=== PATIENT | male | born 1960 | race African-American/Black ===

== ENCOUNTER 2017-01-07 09:39 | Inpatient (IN) | payer MEDICARE, MEDICAID, OTHER ==
[~2017-01-07] VITALS: Ht 180.3 cm; Wt 69.7 kg
[~2017-01-07 09:39] MED LIST: LANTINJ SQ; LYRI75CA PO; NOVOLOGP2 SQ
[2017-01-07 09:42] VITALS: BP 159/74; PULSE 82; RESP 28; TEMP 97.9; O2SAT 100
[2017-01-07 11:00] VITALS: RESP 22
[2017-01-07] MEDS ORDERED: AMLO10TA2 PO (11:49)
[2017-01-07] MEDS ORDERED: METO25TA3 PO (11:49)
[2017-01-07] MEDS ORDERED: LISI-515 PO (11:49)
[2017-01-07] MEDS ORDERED: SEVEL800 PO (11:49)
--- NOTE | 2017-01-07 11:56 | PD ---
HPI Chief Complaint: Cold / Flu Symptoms Time Seen by Provider: 11:53 Travel History International Travel<30 days: No Contact w/Intl Traveler<30days: No Traveled to known affect area: No History of Present Illness HPI 56 year old male presents to the emergency department for evaluation of shortness of breath, wheezing, headache, fever, cough for 1 week. He reports that he had a fever last night as well as this morning. Although, he did not check his temperature. Patient has history of end-stage renal disease, hypertension, diabetes, hyperlipidemia. He gets dialysis on Sunday, , Sunday. He has a fistula to his left arm. He states he is unable to eat. He states that he feels like there is a course taking him in the head. He denies any chest pain. No abdominal pain. No nausea vomiting diarrhea. He states his blood glucose has been running higher than normal. PFSH Past Medical History Blood Disorders: No Heart Rhythm Problems: No Cancer: No Cardiovascular Problems: Yes High Cholesterol: No Chest Pain: No Congestive Heart Failure: No COPD: Yes (BRONCHITIS) Diabetes: Yes Dialysis: Yes (Sun) Diminished Hearing: No Endocrine: Yes Genitourinary: Yes (DIALYSIS) Headaches: Yes Hypertension: Yes Immune Disorder: No Implanted Vascular Access Dvce: Yes Kidney Stones: No Musculoskeletal: No Neurologic: No Psychiatric: No Reproductive: No Respiratory: Yes (BRONCHITIS A CHILD) Immunizations Current: Yes Renal Failure: Yes (LEVEL 5) Past Surgical History Other Surgery: Yes (LT ARM FISTULA) Social History Alcohol Use: No Tobacco Use: No Substance Use: No Allergies-Medications (Allergen,Severity, Reaction): Coded Allergies: No Known Allergies (Verified , 01/07/17) Reported Meds & Prescriptions Reported Meds & Active Scripts Active Lantus Solostar Pen Inj (Insulin Glargine) 300 Unit/3 Ml Pen 15-20 Units SQ BID 20units in AM/ 15units in evening Lyrica (Pregabalin) 75 Mg Cap 75 Mg PO DAILY Novolog Inj (Insulin Aspart) 1,000 Unit/10 Ml Vial 0 SQ DIRECTED Sliding Scale: 170-220: 2units. 221-270: 3units. 271-320: 4unis. 321-370: 5units Reported Metoprolol Tartrate 25 Mg Tab Unknown Dose PO DAILY Lisinopril 20 Mg Tab Unknown Dose PO DAILY Amlodipine (Amlodipine Besylate) 10 Mg Tab Unknown Dose PO DAILY Renvela (Sevelamer Carbonate) 800 Mg Tab Unknown Dose PO TID Review of Systems Except as stated in HPI: all other systems reviewed are Neg Physical Exam Narrative GENERAL: Well-developed well-nourished male patient, afebrile. SKIN: Warm and dry. Fistula noted to left upper arm HEAD: Normocephalic. Atraumatic. ENT: Mucosa pink and moist. No erythema or exudates. No uvular edema. No uvular , palatal, or tonsillar deviation. Airway patent. Nasal turbinates appear normal without nasal blood, purulent drainage or septal hematoma. Bilateral tympanic membranes are clear without erythema or perforation. EYES: No scleral icterus. No injection or drainage. NECK: Supple, trachea midline. No JVD or lymphadenopathy. CARDIOVASCULAR: Regular rate and rhythm without murmurs, gallops, or rubs. RESPIRATORY: Breath sounds equal bilaterally. No accessory muscle use. Lungs sounds were with expiratory wheezes noted throughout.. GASTROINTESTINAL: Abdomen soft, non-tender, nondistended. MUSCULOSKELETAL: No cyanosis, or edema. BACK: Nontender without obvious deformity. No CVA tenderness. Data Data Last Documented VS Vital Signs Date Time Temp Pulse Resp B/P Pulse Ox O2 Delivery O2 Flow Rate FiO2 01/07/17 13:16 98 Room Air 01/07/17 12:12 82 20 01/07/17 09:42 97.9 159/74 Orders Complete Blood Count With Diff (01/07/17 12:12) Comprehensive Metabolic Panel (01/07/17 12:12) B-Type Natriuretic Peptide (01/07/17 12:12) Urinalysis - C+S If Indicated (01/07/17 12:12) Influenzae A/B Antigen (01/07/17 12:12) Blood Culture (01/07/17 12:12) Iv Access Insert/Monitor (01/07/17 12:12) Electrocardiogram (01/07/17 12:12) Ecg Monitoring (01/07/17 12:12) Oximetry (01/07/17 12:12) Oxygen Administration (01/07/17 12:12) Chest, Single Ap (01/07/17 12:12) Sodium Chloride 0.9% Flush (Ns Flush) (01/07/17 12:15) Albuterol-Ipratropium Neb (Duoneb Neb) (01/07/17 12:15) Lactic Acid Sepsis Protocol (01/07/17 12:12) Admit Order (Ed Use Only) (01/07/17 14:45) Labs Laboratory Tests Test 01/07/17 01/07/17 12:33 13:20 White Blood Count 4.9 TH/MM3 Red Blood Count 3.69 MIL/MM3 Hemoglobin 10.6 GM/DL Hematocrit 33.1 % Mean Corpuscular Volume 89.6 FL Mean Corpuscular Hemoglobin 28.8 PG Mean Corpuscular Hemoglobin 32.1 % Concent Red Cell Distribution Width 15.4 % Platelet Count 149 TH/MM3 Mean Platelet Volume 10.4 FL Neutrophils (%) (Auto) % Lymphocytes (%) (Auto) % Monocytes (%) (Auto) % Eosinophils (%) (Auto) % Basophils (%) (Auto) % Neutrophils # (Auto) TH/MM3 Lymphocytes # (Auto) TH/MM3 Monocytes # (Auto) TH/MM3 Eosinophils # (Auto) TH/MM3 Basophils # (Auto) TH/MM3 CBC Comment AUTO DIFF Differential Total Cells 100 Counted Neutrophils % (Manual) 51 % Band Neutrophils % 6 % Lymphocytes % 26 % Monocytes % 11 % Eosinophils % 4 % Basophils % 2 % Neutrophils # (Manual) 2.8 TH/MM3 Differential Comment FINAL DIFF MANUAL Atypical Lymphocytes % Platelet Estimate NORMAL Platelet Morphology Comment NORMAL Ovalocytes 1+ Sodium Level 138 MEQ/L Potassium Level 4.6 MEQ/L Chloride Level 103 MEQ/L Carbon Dioxide Level 25.5 MEQ/L Anion Gap 10 MEQ/L Blood Urea Nitrogen 30 MG/DL Creatinine 8.60 MG/DL Estimat Glomerular Filtration 8 ML/MIN Rate Random Glucose 203 MG/DL Lactic Acid Level 2.3 mmol/L Calcium Level 9.1 MG/DL Total Bilirubin 0.9 MG/DL Aspartate Amino Transf 61 U/L (AST/SGOT) Alanine Aminotransferase 68 U/L (ALT/SGPT) Alkaline Phosphatase 118 U/L Total Protein 6.8 GM/DL Albumin 3.3 GM/DL B-Type Natriuretic Peptide 1332 PG/ML MDM Medical Decision Making Medical Screen Exam Complete: Yes Emergency Medical Condition: Yes Medical Record Reviewed: Yes Differential Diagnosis Pneumonia Versus bronchitis versus viral syndrome or electrolyte abnormality Narrative Course 56-year-old male with significant past medical history presents to the emergency department for fever, cough, headache for 1 week. The patient is initially seen contrast check. He'll be transferred to a medical bed for further evaluation disposition. Key Miller Jan 07, 2017 11:56
[2017-01-07] MEDS ORDERED: SODIUM CHLORIDE 0.9% FLUSH 10 ML FLUSH IVF PRN (12:15)
--- NOTE | 2017-01-07 12:17 | PD ---
Physical Exam Time Seen by Provider: 12:15 Narrative 56 year old male with history of hypertension, diabetes, hyperlipidemia and end- stage renal disease on dialysis on Sunday, and Saturdays here with complaints of shortness of breath, wheezing, headache, cough and fever for one week. Patient admits to having a fever last night but never actually checked his temperature. His significant other reports that she felt that he was very hot. He was having trouble breathing so she decided to give him a nebulizer treatment and her pro-air inhaler. He somewhat improved but continued to experience shortness of breath and coughing. They are currently residing in a homeless custodial in [place] and think that it may be contributing to his symptoms. She says a lot of people are coming in and out with a bunch of germs. He is a smoker and smokes a little bit less than half a pack a day. He denies any chest pain. Data Data Last Documented VS Vital Signs Date Time Temp Pulse Resp B/P Pulse Ox O2 Delivery O2 Flow Rate FiO2 01/07/17 13:16 98 Room Air 01/07/17 12:12 82 20 01/07/17 09:42 97.9 159/74 Orders Complete Blood Count With Diff (01/07/17 12:12) Comprehensive Metabolic Panel (01/07/17 12:12) B-Type Natriuretic Peptide (01/07/17 12:12) Urinalysis - C+S If Indicated (01/07/17 12:12) Influenzae A/B Antigen (01/07/17 12:12) Blood Culture (01/07/17 12:12) Iv Access Insert/Monitor (01/07/17 12:12) Electrocardiogram (01/07/17 12:12) Ecg Monitoring (01/07/17 12:12) Oximetry (01/07/17 12:12) Oxygen Administration (01/07/17 12:12) Chest, Single Ap (01/07/17 12:12) Sodium Chloride 0.9% Flush (Ns Flush) (01/07/17 12:15) Albuterol-Ipratropium Neb (Duoneb Neb) (01/07/17 12:15) Lactic Acid Sepsis Protocol (01/07/17 12:12) Admit Order (Ed Use Only) (01/07/17 14:45) Labs Laboratory Tests Test 01/07/17 01/07/17 12:33 13:20 White Blood Count 4.9 TH/MM3 Red Blood Count 3.69 MIL/MM3 Hemoglobin 10.6 GM/DL Hematocrit 33.1 % Mean Corpuscular Volume 89.6 FL Mean Corpuscular Hemoglobin 28.8 PG Mean Corpuscular Hemoglobin 32.1 % Concent Red Cell Distribution Width 15.4 % Platelet Count 149 TH/MM3 Mean Platelet Volume 10.4 FL Neutrophils (%) (Auto) % Lymphocytes (%) (Auto) % Monocytes (%) (Auto) % Eosinophils (%) (Auto) % Basophils (%) (Auto) % Neutrophils # (Auto) TH/MM3 Lymphocytes # (Auto) TH/MM3 Monocytes # (Auto) TH/MM3 Eosinophils # (Auto) TH/MM3 Basophils # (Auto) TH/MM3 CBC Comment AUTO DIFF Differential Total Cells 100 Counted Neutrophils % (Manual) 51 % Band Neutrophils % 6 % Lymphocytes % 26 % Monocytes % 11 % Eosinophils % 4 % Basophils % 2 % Neutrophils # (Manual) 2.8 TH/MM3 Differential Comment FINAL DIFF MANUAL Atypical Lymphocytes % Platelet Estimate NORMAL Platelet Morphology Comment NORMAL Ovalocytes 1+ Sodium Level 138 MEQ/L Potassium Level 4.6 MEQ/L Chloride Level 103 MEQ/L Carbon Dioxide Level 25.5 MEQ/L Anion Gap 10 MEQ/L Blood Urea Nitrogen 30 MG/DL Creatinine 8.60 MG/DL Estimat Glomerular Filtration 8 ML/MIN Rate Random Glucose 203 MG/DL Lactic Acid Level 2.3 mmol/L Calcium Level 9.1 MG/DL Total Bilirubin 0.9 MG/DL Aspartate Amino Transf 61 U/L (AST/SGOT) Alanine Aminotransferase 68 U/L (ALT/SGPT) Alkaline Phosphatase 118 U/L Total Protein 6.8 GM/DL Albumin 3.3 GM/DL B-Type Natriuretic Peptide 1332 PG/ML [facility] Medical Record Reviewed: Yes Supervised Visit with HA: No Narrative Course 56 year old male with history of hypertension, diabetes, hyperlipidemia and end- stage renal disease on dialysis on Sunday, and Saturdays here with complaints of shortness of breath, wheezing, headache, cough and fever for one week. Patient admits to having a fever last night but never actually checked his temperature. His significant other reports that she felt that he was very hot. He was having trouble breathing so she decided to give him a nebulizer treatment and her pro-air inhaler. He somewhat improved but continued to experience shortness of breath and coughing. They are currently residing in a homeless custodial in [place] and think that it may be contributing to his symptoms. She says a lot of people are coming in and out with a bunch of germs. He is a smoker and smokes a little bit less than half a pack a day. He denies any chest pain. Patient seen and examined. Case discussed with Dr. Hagen Labs and imaging ordered. EKG ordered. Findings are significant for BUN/creatinine 30/8.60, lactic acid 2.3, BNP is 1332. We will go ahead and admit for fluid overload. Case was discussed with the hospitalist. Patient was recommended for 23 hour observation. Patient verbalized understanding of instructions, questions were answered, and thanked me for their care. Admitting Information Admitting Physician Requests: Admit Condition: Stable Sandra Weir Jan 07, 2017 12:17
[2017-01-07] MEDS: RESP: ALBUTEROL 2.5 MG/IPRATROPIUM 0.5 MG NEB (SCH) INH ×2 (12:32→12:33)
[2017-01-07 12:54] LABS: HEMATOCRIT 33.1 % (39.0-51.0); MEAN CELL VOLUME 89.6 FL (80.0-100.0); MEAN CORPUSCULAR HEMOGLOBIN 28.8 PG (27.0-34.0); MEAN CORPUSCULAR HGB CONC 32.1 % (32.0-36.0); PLATELET COUNT 149 TH/MM3 (150-450); RED BLOOD COUNT 3.69 MIL/MM3 (4.50-5.90); RED CELL DISTRIBUTION WIDTH 15.4 % (11.6-17.2); WHITE BLOOD COUNT 4.9 TH/MM3 (4.0-11.0)
[2017-01-07 12:55] LABS: HEMO FLAGS AUTO DIFF
--- NOTE | 2017-01-07 12:57 | RADRPT ---
EXAM DATE/TIME: 01/07/2017 12:26 [facility] COMPARISON: CHEST SINGLE AP, February 19, 2015, 14:43. INDICATIONS : Shortness of breath for two weeks with increased severity overnight. MEDICAL HISTORY : None. SURGICAL HISTORY : None. ENCOUNTER: Initial ACUITY: 2 weeks PAIN SCORE: 0/10 LOCATION: Bilateral chest FINDINGS: The heart size appears mildly enlarged as compared to the prior exam. This may reflect the presence o f a pericardial effusion. The pulmonary vasculature is grossly normal in caliber. The lungs are well inflated and clear. There is graft material overlying the patient's left axilla. CONCLUSION: Interval enlargement of the cardiac silhouette which may be artifact due to the portable technique, h owever, this could also represent a small pericardial effusion. Darcy Almonte MD on January 07, 2017 at 12:54 Board Certified Radiologist. This report was verified electronically.
[2017-01-07 13:20] LABS: ALKALINE PHOSPHATASE 118 U/L (45-117); TOTAL BILIRUBIN ADULT 0.9 MG/DL (0.2-1.0)
[2017-01-07 13:24] LABS: ALT (GPT) 68 U/L (12-78); ANION GAP 10 MEQ/L (5-15); AST (GOT) 61 U/L (15-37); BICARBONATE 25.5 MEQ/L (21.0-32.0); BLOOD UREA NITROGEN 30 MG/DL (7-18); CHLORIDE 103 MEQ/L (98-107); GLOMERULAR FILTRATION RATE 8 ML/MIN (>89); POTASSIUM 4.6 MEQ/L (3.5-5.1); SODIUM (NA) 138 MEQ/L (136-145)
[2017-01-07 13:26] LABS: BANDS 6 % (0-6); BASOPHILS 2 % (0-2); EOSINOPHILS 4 % (0-4); NEUTROPHIL # MANUAL DIFF 2.8 TH/MM3 (1.8-7.7); POLYS (SEG NEUTROPHILS) 51 % (16-70); WBC DIFF SAMPLE 100
[2017-01-07 13:27] LABS: OVALOCYTES 1+ (NORMAL); PLATELET ESTIMATE SMEAR NORMAL (NORMAL); PLATELET MORPHOLOGY NORMAL (NORMAL); SCAN/DIFF FINAL DIFF MANUAL
[2017-01-07 14:41] LABS: LACTIC ACID GHOST NOT REPORTABLE
[2017-01-07 15:41] VITALS: BP 159/89; PULSE 89; RESP 20; O2SAT 100
[2017-01-07] MEDS ORDERED: ONDANSETRON HCL 4 MG/2 ML VIAL IVP PRN (16:15)
[2017-01-07] MEDS ORDERED: NALOXONE HCL 0.4 MG/ML AMP IV PRN (16:15)
[2017-01-07] MEDS ORDERED: SODIUM CHLORIDE 0.9% FLUSH 10 ML FLUSH IV FLUSH PRN (16:15)
[2017-01-07] MEDS ORDERED: ACETAMINOPHEN 325 MG TAB PO PRN (16:15)
[2017-01-07] MEDS ORDERED: DEXTROSE 50% IN WATER 50 ML VIAL(D50) IV PUSH PRN (16:30)
[2017-01-07] MEDS ORDERED: GLUCAGON 1 MG/ML VIAL OTHER PRN (16:30)
--- NOTE | 2017-01-07 16:48 | HHI.HP ---
HPI Service [facility] Primary Care Physician Thad Wheat M.D. Admission Diagnosis fluid overload/possible CHF Diagnoses: Chief Complaint: Constant cough Travel History International Travel<30 Days: No Contact w/Intl Traveler <30 Da: No Traveled to Known Affected Are: No History of Present Illness This is a 56-year-old male patient with past medical history was includes end- stage renal disease on hemodialysis Sunday and Sunday, diabetes mellitus type 1 and hypertension. Patient reports for the past one to 2 weeks he has had a nonproductive cough. Patient reports the cough is getting progressively worse. This point patient has associated shortness of breath and feels as though he can't take a deep breath. Patient reports subjective fevers last night as long with chills and headache. Patient reports the headache is dull and mild in nature. Patient reports he is currently living in a homeless care home and there are multiple other people who appear sick with cough. Patient tried his friends inhaler yesterday does not think it helped the cough. Patient denies nausea or vomiting diarrhea constipation or chest pain. Review of Systems Except as stated in HPI: all other systems reviewed are Neg Past Family Social History Past Medical History end-stage renal disease on hemodialysis Sunday and Sunday, diabetes mellitus type 1 and hypertension Past Surgical History L upper extremity fistula Reported Medications Lantus Solostar Pen Inj (Insulin Glargine) 300 Unit/3 Ml Pen 15-20 Units SQ BID 20units in AM/ 15units in evening Lyrica (Pregabalin) 75 Mg Cap 75 Mg PO DAILY Novolog Inj (Insulin Aspart) 1,000 Unit/10 Ml Vial 0 SQ DIRECTED Sliding Scale: 170-220: 2units. 221-270: 3units. 271-320: 4unis. 321-370: 5units Metoprolol Tartrate 25 Mg Tab Unknown Dose PO DAILY Amlodipine (Amlodipine Besylate) 10 Mg Tab Unknown Dose PO DAILY Renvela (Sevelamer Carbonate) 800 Mg Tab Unknown Dose PO TID Allergies: Coded Allergies: No Known Allergies (Verified , 01/07/17) Active Ordered Medications Current Medications Medications (Trade) Dose Ordered Sig/April Route Start Time Stop Time Status Last Admin (NS Flush) 2 ml UNSCH PRN IVF 01/07/17 12:15 (NS Flush) 2 ml UNSCH PRN IV FLUSH 01/07/17 16:15 UNV (NS Flush) 2 ml BID IV FLUSH 01/07/17 21:00 UNV (Tylenol) 650 mg Q4H PRN PO 01/07/17 16:15 UNV (Zofran Inj) 4 mg Q6H PRN IVP 01/07/17 16:15 UNV (Colace) 100 mg Q12H PO 01/07/17 16:15 UNV (Heparin Inj) 5,000 units Q12H SQ 01/07/17 16:15 UNV (Narcan Inj) 0.4 mg UNSCH PRN IV 01/07/17 16:15 UNV (SoluMEDROL INJ) 125 mg ONCE ONCE IV PUSH 01/07/17 16:15 01/07/17 16:16 UNV Methylprednisolone Sodium Succinate 60 mg 60 mg Q6H IV PUSH 01/07/17 16:15 UNV Cefepime HCl 1000 mg/Sodium Chloride 100 ml @ 200 mls/hr DAILY IV 01/07/17 16:15 UNV (Zithromax Inj/ NS 250 ml Inj) 250 ml @ 250 mls/hr Q24H IV 01/07/17 16:15 UNV (Lyrica) 75 mg DAILY PO 01/08/17 09:00 UNV (Lopressor) 25 mg Q12HR PO 01/07/17 21:00 UNV (Norvasc) 5 mg DAILY PO 01/08/17 09:00 UNV (Levemir Inj) 15 units HS SQ 01/07/17 21:00 UNV (Renvela) 800 mg TIDAC PO 01/07/17 17:00 UNV (D50w (Vial) Inj) 25 ml UNSCH PRN IV PUSH 01/07/17 16:30 UNV (Glucagon Inj) 1 mg UNSCH PRN OTHER 01/07/17 16:30 UNV Family History Mother secondary to ovarian cancer Father secondary to end-stage renal disease 2 brothers with diabetes mellitus Social History Patient currently residing at home with shoulder Drinks on rare occasions Smoked for the past 30+ years but reports he is cutting back and legs only a few cigarettes per day Denies illicit drug use quit marijuana greater than 20 years ago Physical Exam Vital Signs Vital Signs Date Time Temp Pulse Resp B/P Pulse Ox O2 Delivery O2 Flow Rate FiO2 01/07/17 15:41 89 20 159/89 100 Room Air 01/07/17 13:16 98 Room Air 01/07/17 12:12 82 20 99 Room Air 01/07/17 11:00 22 01/07/17 09:42 97.9 82 28 159/74 100 Room Air Physical Exam GENERAL: This is a 56-year-old male patient with frequent cough SKIN: No rashes, ecchymoses or lesions. Cool and dry. HEAD: Atraumatic. Normocephalic. No temporal or scalp tenderness. EYES: Extraocular motions intact. No scleral icterus. No injection or drainage. CARDIOVASCULAR: Regular rate and rhythm without murmurs, gallops, or rubs. RESPIRATORY: decreased air entry bilaterally scattered expiratory wheezing GASTROINTESTINAL: Abdomen soft, non-tender, nondistended. No guarding. MUSCULOSKELETAL: Extremities without clubbing, cyanosis, or edema. No joint tenderness, effusion, or edema noted. No calf tenderness. Negative Homans sign bilaterally. NEUROLOGICAL: Awake and alert. no focal deficits. Motor and sensory grossly within normal limits. Five out of 5 muscle strength in all muscle groups. Normal speech. Laboratory Laboratory Tests Test 01/07/17 01/07/17 01/07/17 12:33 13:20 15:31 White Blood Count 4.9 Red Blood Count 3.69 Hemoglobin 10.6 Hematocrit 33.1 Mean Corpuscular Volume 89.6 Mean Corpuscular Hemoglobin 28.8 Mean Corpuscular Hemoglobin 32.1 Concent Red Cell Distribution Width 15.4 Platelet Count 149 Mean Platelet Volume 10.4 Neutrophils (%) (Auto) Lymphocytes (%) (Auto) Monocytes (%) (Auto) Eosinophils (%) (Auto) Basophils (%) (Auto) Neutrophils # (Auto) Lymphocytes # (Auto) Monocytes # (Auto) Eosinophils # (Auto) Basophils # (Auto) CBC Comment AUTO DIFF Differential Total Cells 100 Counted Neutrophils % (Manual) 51 Band Neutrophils % 6 Lymphocytes % 26 Monocytes % 11 Eosinophils % 4 Basophils % 2 Neutrophils # (Manual) 2.8 Differential Comment FINAL DIFF MANUAL Atypical Lymphocytes Platelet Estimate NORMAL Platelet Morphology Comment NORMAL Ovalocytes 1+ Sodium Level 138 Potassium Level 4.6 Chloride Level 103 Carbon Dioxide Level 25.5 Anion Gap 10 Blood Urea Nitrogen 30 Creatinine 8.60 Estimat Glomerular Filtration 8 Rate Random Glucose 203 Lactic Acid Level 2.3 1.7 Calcium Level 9.1 Total Bilirubin 0.9 Aspartate Amino Transf 61 (AST/SGOT) Alanine Aminotransferase 68 (ALT/SGPT) Alkaline Phosphatase 118 Total Protein 6.8 Albumin 3.3 B-Type Natriuretic Peptide 1332 Date/Time Procedure Status Source Growth 01/07/17 13:30 Influenza Types A,B Antigen (DARIUS) - Final Complete Nasal Washing NEGATIVE FOR FLU A AND B ANTIGEN.... 01/07/17 12:30 Aerobic Blood Culture Received Blood Peripheral Pending 01/07/17 12:30 Anaerobic Blood Culture Received Blood Peripheral Pending Result Diagram: 01/07/17 1233 01/07/17 1233 Imaging Last Impressions Chest X-Ray 01/07/17 1212 Signed Impressions: Service Date/Time: Saturday, January 07, 2017 12:26 - CONCLUSION: Interval enlargement of the cardiac silhouette which may be artifact due to the portable technique, however, this could also represent a small pericardial effusion. Darcy Almonte MD Assessment and Plan Assessment and Plan This is a 56-year-old male patient with past medical history was includes end- stage renal disease on hemodialysis Sunday and Sunday, diabetes mellitus type 1 and hypertension. Patient reports for the past one to 2 weeks he has had a nonproductive cough. SOB COPD exacerbation cefepime 1 gram IV Q24H after HD azithromycin 500mg IV Q day Duonebs Q4H while awake and Q2H as needed Solumedrol 125mg IV x1 now and then solumedrol 60mg IV Q6H DM uncontrolled Continue Lantus 20 units every morning, 15 units every afternoon Accu-Cheks before meals at bedtime with sliding scale insulin coverage Start renal/diabetic diet Diabetic neuropathy continue Lyrica Hypertension continue home medications metoprolol 25 mg twice a day and amlodipine 5 mg daily End-stage renal disease on hemodialysis consult nephrology patient regularly has dialysis Sunday and Sunday Sevelamer 800 mg with meals DVT prophylaxis heparin Discussed with ER provider, nursing and patient Written by Sirena Mortensen, acting as scribe for Dr. Markham on 01/07/17 at 16:46. All or portions of this note were transcribed by scribe Sirena Mortensen. I , Dr. Alexandre Ruelas personally performed the history, physical exam, and medical decision making; and confirmed the accuracy of the information in the transcribed note. Authenticated by Dr. Alexandre Ruelas on 01/14/17 at 23:41. Physician Certification 2 Midnight Certification Type: Admission for Inpatient Services Order for Inpatient Services The services are ordered in accordance with Medicare regulations or non- Medicare payer requirements, as applicable. In the case of services not specified as inpatient-only, they are appropriately provided as inpatient services in accordance with the 2-midnight benchmark. Estimated LOS (days): 2 days is the estimated time the patient will need to remain in the hospital, assuming treatment plan goals are met and no additional complications. Post-Hospital Plan: Not yet determined Sirena Mortensen Jan 07, 2017 16:48 Alexandre Fleming MD Jan 14, 2017 23:42
--- NOTE | 2017-01-07 16:56 | PD ---
Physical Exam Date Seen by Provider: Jan 07, 2017 Time Seen by Provider: 14:50 Narrative I, Dr. Powers, have reviewed the advance practice practitioner's documentation and am in agreement, met with the patient face to face, made the diagnosis, and the medical decision making was done by me. *My assessment and Findings: Patient seen and evaluated with PA, please see PA no further details. He is here with 2 weeks history of coughing, dyspnea on exertion. He has history of end-stage renal disease on dialysis. On initial evaluation, he was wheezing on exam and nebulizers were initiated in the ER. EKG did not show significant dysrhythmias. Laboratory Tests Test 01/07/17 01/07/17 12:33 13:20 Red Blood Count 3.69 MIL/MM3 (4.50-5.90) Hemoglobin 10.6 GM/DL (13.0-17.0) Hematocrit 33.1 % (39.0-51.0) Platelet Count 149 TH/MM3 (150-450) Monocytes % 11 % (0-8) Ovalocytes 1+ (NORMAL) Blood Urea Nitrogen 30 MG/DL (7-18) Creatinine 8.60 MG/DL (0.60-1.30) Estimat Glomerular Filtration 8 ML/MIN (>89) Rate Random Glucose 203 MG/DL (74-106) Lactic Acid Level 2.3 mmol/L (0.4-2.0) Aspartate Amino Transf 61 U/L (15-37) (AST/SGOT) Alkaline Phosphatase 118 U/L (45-117) Albumin 3.3 GM/DL (3.4-5.0) B-Type Natriuretic Peptide 1332 PG/ML (0-100) Last 24 hours Impressions Chest X-Ray 01/07/17 1212 Signed Impressions: Service Date/Time: Saturday, January 07, 2017 12:26 - CONCLUSION: Interval enlargement of the cardiac silhouette which may be artifact due to the portable technique, however, this could also represent a small pericardial effusion. Darcy Almonte MD Chest x-ray did not show signs of acute processes although it is not a ideal study. His BNP is fairly elevated. At this point, there is concern for possible underlying fluid overload or CHF as well. Plan would be to admit the patient for further evaluation. Case is discussed with [place] hospitalist Dr. Markham for admission. Data Data Last Documented VS Vital Signs Date Time Temp Pulse Resp B/P Pulse Ox O2 Delivery O2 Flow Rate FiO2 01/07/17 13:16 98 Room Air 01/07/17 12:12 82 20 01/07/17 09:42 97.9 159/74 Orders Complete Blood Count With Diff (01/07/17 12:12) Comprehensive Metabolic Panel (01/07/17 12:12) B-Type Natriuretic Peptide (01/07/17 12:12) Urinalysis - C+S If Indicated (01/07/17 12:12) Influenzae A/B Antigen (01/07/17 12:12) Blood Culture (01/07/17 12:12) Iv Access Insert/Monitor (01/07/17 12:12) Electrocardiogram (01/07/17 12:12) Ecg Monitoring (01/07/17 12:12) Oximetry (01/07/17 12:12) Oxygen Administration (01/07/17 12:12) Chest, Single Ap (01/07/17 12:12) Sodium Chloride 0.9% Flush (Ns Flush) (01/07/17 12:15) Albuterol-Ipratropium Neb (Duoneb Neb) (01/07/17 12:15) Lactic Acid Sepsis Protocol (01/07/17 12:12) Admit Order (Ed Use Only) (01/07/17 14:45) Labs Laboratory Tests Test 01/07/17 01/07/17 12:33 13:20 White Blood Count 4.9 TH/MM3 Red Blood Count 3.69 MIL/MM3 Hemoglobin 10.6 GM/DL Hematocrit 33.1 % Mean Corpuscular Volume 89.6 FL Mean Corpuscular Hemoglobin 28.8 PG Mean Corpuscular Hemoglobin 32.1 % Concent Red Cell Distribution Width 15.4 % Platelet Count 149 TH/MM3 Mean Platelet Volume 10.4 FL Neutrophils (%) (Auto) % Lymphocytes (%) (Auto) % Monocytes (%) (Auto) % Eosinophils (%) (Auto) % Basophils (%) (Auto) % Neutrophils # (Auto) TH/MM3 Lymphocytes # (Auto) TH/MM3 Monocytes # (Auto) TH/MM3 Eosinophils # (Auto) TH/MM3 Basophils # (Auto) TH/MM3 CBC Comment AUTO DIFF Differential Total Cells 100 Counted Neutrophils % (Manual) 51 % Band Neutrophils % 6 % Lymphocytes % 26 % Monocytes % 11 % Eosinophils % 4 % Basophils % 2 % Neutrophils # (Manual) 2.8 TH/MM3 Differential Comment FINAL DIFF MANUAL Atypical Lymphocytes % Platelet Estimate NORMAL Platelet Morphology Comment NORMAL Ovalocytes 1+ Sodium Level 138 MEQ/L Potassium Level 4.6 MEQ/L Chloride Level 103 MEQ/L Carbon Dioxide Level 25.5 MEQ/L Anion Gap 10 MEQ/L Blood Urea Nitrogen 30 MG/DL Creatinine 8.60 MG/DL Estimat Glomerular Filtration 8 ML/MIN Rate Random Glucose 203 MG/DL Lactic Acid Level 2.3 mmol/L Calcium Level 9.1 MG/DL Total Bilirubin 0.9 MG/DL Aspartate Amino Transf 61 U/L (AST/SGOT) Alanine Aminotransferase 68 U/L (ALT/SGPT) Alkaline Phosphatase 118 U/L Total Protein 6.8 GM/DL Albumin 3.3 GM/DL B-Type Natriuretic Peptide 1332 PG/ML MDM Medical Record Reviewed: Yes Supervised Visit with HA: Yes Diagnosis Primary Impression: Shortness of breath Additional Impression: Fluid overload Admitting Information Admitting Physician Requests: Admit Condition: Stable Nadja Powers MD Jan 07, 2017 16:56
[2017-01-07] MEDS ORDERED: methylPREDNISolone SOD SUCC 125 MG/2 ML VIAL IV PUSH ONE (17:00)
[2017-01-07] MEDS: DOCUSATE SODIUM 100 MG CAP PO SCH (18:00)
[2017-01-07] MEDS: AZITHROMYCIN INJ 500 MG in SODIUM CHLOR 0.9% 250 ML INJ 250 ML IV SCH (18:40)
[2017-01-07] MEDS: HEPARIN SODIUM - SQ 10,000 UNITS/ML VIAL SQ SCH (18:42)
[2017-01-07] MEDS: RESP: ALBUTEROL 2.5 MG/IPRATROPIUM 0.5 MG NEB (SCH) NEB (19:51)
[2017-01-07 19:53] VITALS: O2SAT 97
[2017-01-07 20:51] VITALS: BP 155/75; PULSE 102; RESP 18; TEMP 98.4; O2SAT 97
[2017-01-07] MEDS ORDERED: INSULIN DETEMIR 100 UNITS/ML VIAL SQ SCH (21:00)
[2017-01-07] MEDS: CEFEPIME INJ 1,000 MG in SODIUM CHLORIDE 0.9% INJ 100 ML IV SCH (21:10)
[2017-01-07] MEDS: SEVELAMER CARBONATE 800 MG TAB PO SCH (21:10)
[2017-01-07] MEDS: INSULIN ASPART SUPPLEMENTAL SCALE SQ SCH (21:11)
[2017-01-07] MEDS: SODIUM CHLORIDE 0.9% FLUSH 10 ML FLUSH IV FLUSH SCH (21:11)
[2017-01-07] MEDS: METOPROLOL TARTRATE 25 MG TAB PO SCH (21:11)
[2017-01-07] MEDS: guaiFENesin/DEXTROMETHORPHAN 200 MG/20 MG/10 ML CUP PO PRN (23:08)
[2017-01-07] MEDS: methylPREDNISolone SOD SUCC 125 MG/2 ML VIAL IV PUSH SCH (23:12)
[2017-01-07 23:13] VITALS: BP 122/58; PULSE 82; RESP 18; TEMP 98.7; O2SAT 100; O2SAT 96
[2017-01-08] VITALS (8 sets, daily range): BP systolic 125–152; BP diastolic 60–79; PULSE 54–89; RESP 16–18; TEMP 96.8–98.7; O2SAT 94–99
[2017-01-08] MEDS: RESP: ALBUTEROL 2.5 MG/IPRATROPIUM 0.5 MG NEB (PRN) NEB (02:59)
[2017-01-08] MEDS: guaiFENesin/DEXTROMETHORPHAN 200 MG/20 MG/10 ML CUP PO PRN ×5 (03:24→23:00)
[2017-01-08] MEDS: INSULIN DETEMIR 100 UNITS/ML VIAL SQ SCH ×2 (06:03→21:15)
[2017-01-08] MEDS: DOCUSATE SODIUM 100 MG CAP PO SCH ×2 (06:04→17:10)
[2017-01-08] MEDS: HEPARIN SODIUM - SQ 10,000 UNITS/ML VIAL SQ SCH ×2 (06:04→17:11)
[2017-01-08] MEDS: INSULIN ASPART SUPPLEMENTAL SCALE SQ SCH ×4 (06:04→21:15)
[2017-01-08] MEDS: methylPREDNISolone SOD SUCC 125 MG/2 ML VIAL IV PUSH SCH ×4 (06:04→23:00)
[2017-01-08 06:21] LABS: AUTOMATED NEUTROPHIL # 4.1 TH/MM3 (1.8-7.7); BASOPHIL % 0.3 % (0.0-2.0); HEMATOCRIT 32.9 % (39.0-51.0); HEMO FLAGS DIFF FINAL; LYMPH % 7.9 % (9.0-44.0); LYMPHOCYTE # 0.4 TH/MM3 (1.0-4.8); MEAN CELL VOLUME 86.3 FL (80.0-100.0); MEAN CORPUSCULAR HEMOGLOBIN 28.6 PG (27.0-34.0); MEAN CORPUSCULAR HGB CONC 33.1 % (32.0-36.0); MONO % 2.5 % (0.0-8.0); NEUT % 89.3 % (16.0-70.0); PLATELET COUNT 113 TH/MM3 (150-450); RED BLOOD COUNT 3.81 MIL/MM3 (4.50-5.90); RED CELL DISTRIBUTION WIDTH 15.7 % (11.6-17.2); WHITE BLOOD COUNT 4.6 TH/MM3 (4.0-11.0)
[2017-01-08 07:01] LABS: POTASSIUM 6.1 MEQ/L (3.5-5.1)
[2017-01-08] MEDS: RESP: ALBUTEROL 2.5 MG/IPRATROPIUM 0.5 MG NEB (SCH) NEB ×4 (07:47→20:38)
[2017-01-08] MEDS: amLODIPine BESYLATE 5 MG TAB PO SCH (08:08)
[2017-01-08] MEDS: SEVELAMER CARBONATE 800 MG TAB PO SCH ×3 (08:08→17:00)
[2017-01-08] MEDS: PREGABALIN 75 MG CAP PO SCH (08:08)
[2017-01-08] MEDS: METOPROLOL TARTRATE 25 MG TAB PO SCH ×2 (08:09→21:15)
[2017-01-08] MEDS: SODIUM CHLORIDE 0.9% FLUSH 10 ML FLUSH IV FLUSH SCH ×2 (08:10→21:15)
[2017-01-08] MEDS ORDERED: SODIUM BICARBONATE 8.4% INJ 50 MEQ/50 ML SYR IV PUSH ONE (09:15)
[2017-01-08] MEDS ORDERED: INSULIN HUMAN REGULAR 1,000 UNITS/10 ML VIAL IVP ONE (09:15)
[2017-01-08] MEDS ORDERED: DEXTROSE 50% IN WATER 50 ML SYRINGE IV ONE (09:15)
[2017-01-08] MEDS ORDERED: SODIUM CHLOR 0.9% 1000 ML INJ 1,000 ML IV PRN ×3 (10:10)
[2017-01-08] MEDS ORDERED: MANNITOL 12.5 GM/50 ML VIAL IV PRN (10:15)
[2017-01-08] MEDS ORDERED: cloNIDine HCL 0.1 MG TAB PO PRN (10:15)
[2017-01-08] MEDS ORDERED: EPOETIN ALFA 10,000 UNITS/ML VIAL IV PRN (10:15)
[2017-01-08] MEDS ORDERED: NITROGLYCERIN 0.4 MG SL 25 TABS/BTL SL PRN (10:15)
[2017-01-08] MEDS ORDERED: ALBUMIN HUMAN 25% 25 GM/100 ML BAGP IV PRN (10:15)
[2017-01-08] MEDS ORDERED: HEPARIN SODIUM - IV 10,000 UNITS/10 ML VIAL PRN (10:15)
[2017-01-08] MEDS ORDERED: SODIUM CHLORIDE 0.9% FLUSH 10 ML FLUSH IV FLUSH PRN (10:15)
[2017-01-08] MEDS ORDERED: HEPARIN SODIUM - IV 10,000 UNITS/10 ML VIAL IVF PRN (10:15)
[2017-01-08] MEDS ORDERED: diphenhydrAMINE HCL 25 MG CAP PO PRN (10:15)
[2017-01-08] MEDS ORDERED: ONDANSETRON HCL 4 MG/2 ML VIAL IV PRN (10:15)
[2017-01-08] MEDS ORDERED: GELATIN 12 MM/7 MM FOAM TOP PRN (10:15)
[2017-01-08] MEDS ORDERED: ACETAMINOPHEN 325 MG TAB PO PRN (10:15)
[2017-01-08] MEDS ORDERED: GENTAMICIN SULFATE (DIALYSIS USE ONLY) 20 MG/2 ML VIAL IV PRN (10:15)
--- NOTE | 2017-01-08 11:54 | PD.CONS ---
HPI Service Nephrology Consult Requested By Reason for Consult ESRD on HD Primary Care Physician Thad Wheat M.D. History of Present Illness This is a 56 y/o male pt who has had URI symptoms for 2 weeks. Complaining of productive cough with headache causing him to seek medical care. PMH of ESRD on HD TTS, he has not missed treatments. Other PMH of HTN, DM 1, hyperlipidemia, and metabolic bone disorder. He is hyperkalemic today and hyperglycemic. He is seen during dialysis, coughing but otherwise no concerns. We were consulted to continue dialysis. (Jasmyne Bee) Review of Systems Constitutional: COMPLAINS OF: Fatigue, DENIES: Fever Respiratory: COMPLAINS OF: Cough, Sputum production Cardiovascular: DENIES: Chest pain (Jasmyne Bee) Past Family Social History Allergies: Coded Allergies: No Known Allergies (Verified , 01/07/17) Past Medical History ESRD on HD TTS HTN hyperlipidemia anemia DM I metabolic bone disorder Past Surgical History SYDNEY STEINBERG Reported Medications Lantus Solostar Pen Inj (Insulin Glargine) 300 Unit/3 Ml Pen 15-20 Units SQ BID 20units in AM/ 15units in evening Lyrica (Pregabalin) 75 Mg Cap 75 Mg PO DAILY Novolog Inj (Insulin Aspart) 1,000 Unit/10 Ml Vial 0 SQ DIRECTED Sliding Scale: 170-220: 2units. 221-270: 3units. 271-320: 4unis. 321-370: 5units Metoprolol Tartrate 25 Mg Tab Unknown Dose PO DAILY Lisinopril 20 Mg Tab Unknown Dose PO DAILY Amlodipine (Amlodipine Besylate) 10 Mg Tab Unknown Dose PO DAILY Renvela (Sevelamer Carbonate) 800 Mg Tab Unknown Dose PO TID Active Ordered Medications Current Medications Medications (Trade) Dose Ordered Sig/April Route Start Time Stop Time Status Last Admin (NS Flush) 2 ml UNSCH PRN IVF 01/07/17 12:15 (NS Flush) 2 ml UNSCH PRN IV FLUSH 01/07/17 16:15 (NS Flush) 2 ml BID IV FLUSH 01/07/17 21:00 01/08/17 08:10 (Tylenol) 650 mg Q4H PRN PO 01/07/17 16:15 (Zofran Inj) 4 mg Q6H PRN IVP 01/07/17 16:15 (Colace) 100 mg Q12H PO 01/07/17 18:00 01/08/17 06:04 (Heparin Inj) 5,000 units Q12H SQ 01/07/17 18:00 01/08/17 06:04 (Narcan Inj) 0.4 mg UNSCH PRN IV 01/07/17 16:15 Methylprednisolone Sodium Succinate 60 mg 60 mg Q6H IV PUSH 01/07/17 23:00 01/08/17 06:04 Cefepime HCl 1000 mg/Sodium Chloride 100 ml @ 200 mls/hr DAILY@18 IV 01/07/17 18:00 01/07/17 21:10 (Zithromax Inj/ NS 250 ml Inj) 250 ml @ 250 mls/hr Q24H IV 01/07/17 17:00 01/07/17 18:40 (Lyrica) 75 mg DAILY PO 01/08/17 09:00 01/08/17 08:08 (Lopressor) 25 mg Q12HR PO 01/07/17 21:00 01/08/17 08:09 (Norvasc) 5 mg DAILY PO 01/08/17 09:00 01/08/17 08:08 (Levemir Inj) 15 units HS SQ 01/07/17 21:00 01/07/17 21:11 (Renvela) 800 mg TIDAC PO 01/07/17 17:00 01/08/17 08:08 (D50w (Vial) Inj) 25 ml UNSCH PRN IV PUSH 01/07/17 16:30 (Glucagon Inj) 1 mg UNSCH PRN OTHER 01/07/17 16:30 Guaifenesin/ Dextromethorphan 10 ml 10 ml Q4H PRN PO 01/07/17 20:45 01/08/17 08:08 (NS 1000 ml Inj) 1,000 ml @ 0 mls/hr Q0M PRN IV 01/08/17 10:10 Heparin Sodium (Porcine) 8000 units 8,000 units UNSCH PRN IVF 01/08/17 10:15 Sodium Chloride 1,000 ml @ 200 mls/hr Q5H PRN IV 01/08/17 10:10 (NS 1000 ml Inj) 1,000 ml @ 0 mls/hr Q0M PRN IV 01/08/17 10:10 (Mannitol Inj) 12.5 gm UNSCH PRN IV 01/08/17 10:15 (Albumin 25% Inj) 25 gm UNSCH PRN IV 01/08/17 10:15 (NS Flush) 5 ml UNSCH PRN IV FLUSH 01/08/17 10:15 (Heparin Inj) UNSCH PRN .XX 01/08/17 10:15 (Gentamicin (Dialysis) Inj) 20 mg UNSCH PRN IV 01/08/17 10:15 (Zofran Inj) 4 mg UNSCH PRN IV 01/08/17 10:15 (Tylenol) 650 mg UNSCH PRN PO 01/08/17 10:15 (Benadryl) 25 mg UNSCH PRN PO 01/08/17 10:15 (Nitrostat Sl) 0.4 mg UNSCH PRN SL 01/08/17 10:15 (Catapres) 0.1 mg UNSCH PRN PO 01/08/17 10:15 (Epogen Inj) 4,000 units UNSCH PRN IV 01/08/17 10:15 (Gelfoam 12 Mm/7 Mm Top) 1 foam UNSCH PRN TOP 01/08/17 10:15 Family History no hx of renal disorders Social History daily smoker denies ETOH or drug use he is living at at [facility] full code unemployed (Jasmyne Bee) Physical Exam Vital Signs Vital Signs Date Time Temp Pulse Resp B/P Pulse Ox O2 Delivery O2 Flow Rate FiO2 01/08/17 08:00 98.4 54 18 152/79 99 01/08/17 07:52 96 21 01/08/17 04:00 98.2 84 17 152/75 96 01/08/17 00:00 97.3 84 16 142/71 96 01/07/17 23:13 98.7 82 18 122/58 100 Room Air 01/07/17 23:13 96 Room Air 01/07/17 20:51 98.4 102 18 155/75 97 Room Air 01/07/17 19:53 97 21 01/07/17 15:41 89 20 159/89 100 Room Air 01/07/17 13:16 98 Room Air 01/07/17 12:12 82 20 99 Room Air Physical Exam young AAM sitting up in bed on HD awake/oriented CV: S1S2, regular lungs clear, coughing on exam, scattered rales abd: soft ext: no edema, LUE avf accessed during HD Laboratory Laboratory Tests Test 01/07/17 01/07/17 01/07/17 01/08/17 12:33 13:20 15:31 05:58 White Blood Count 4.9 4.6 Red Blood Count 3.69 3.81 Hemoglobin 10.6 10.9 Hematocrit 33.1 32.9 Mean Corpuscular Volume 89.6 86.3 Mean Corpuscular Hemoglobin 28.8 28.6 Mean Corpuscular Hemoglobin 32.1 33.1 Concent Red Cell Distribution Width 15.4 15.7 Platelet Count 149 113 Mean Platelet Volume 10.4 10.7 Neutrophils (%) (Auto) 89.3 Lymphocytes (%) (Auto) 7.9 Monocytes (%) (Auto) 2.5 Eosinophils (%) (Auto) 0.0 Basophils (%) (Auto) 0.3 Neutrophils # (Auto) 4.1 Lymphocytes # (Auto) 0.4 Monocytes # (Auto) 0.1 Eosinophils # (Auto) 0.0 Basophils # (Auto) 0.0 CBC Comment AUTO DIFF DIFF FINAL Differential Total Cells 100 Counted Neutrophils % (Manual) 51 Band Neutrophils % 6 Lymphocytes % 26 Monocytes % 11 Eosinophils % 4 Basophils % 2 Neutrophils # (Manual) 2.8 Differential Comment FINAL DIFF MANUAL Atypical Lymphocytes Platelet Estimate NORMAL Platelet Morphology Comment NORMAL Ovalocytes 1+ Sodium Level 138 135 Potassium Level 4.6 6.1 Chloride Level 103 99 Carbon Dioxide Level 25.5 22.0 Anion Gap 10 14 Blood Urea Nitrogen 30 46 Creatinine 8.60 10.59 Estimat Glomerular Filtration 8 6 Rate Random Glucose 203 367 Lactic Acid Level 2.3 1.7 Calcium Level 9.1 8.8 Total Bilirubin 0.9 Aspartate Amino Transf 61 (AST/SGOT) Alanine Aminotransferase 68 (ALT/SGPT) Alkaline Phosphatase 118 Total Protein 6.8 Albumin 3.3 B-Type Natriuretic Peptide 1332 Date/Time Procedure Status Source Growth 01/07/17 13:30 Influenza Types A,B Antigen (DARIUS) - Final Complete Nasal Washing NEGATIVE FOR FLU A AND B ANTIGEN.... 01/07/17 12:30 Aerobic Blood Culture - Preliminary Resulted Blood Peripheral NO GROWTH IN 1 DAY 01/07/17 12:30 Anaerobic Blood Culture - Preliminary Resulted Blood Peripheral NO GROWTH IN 1 DAY (Jasmyne Bee) Result Diagram: 01/08/17 0558 01/08/17 0558 Imaging Last Impressions Chest X-Ray 01/07/17 1212 Signed Impressions: Service Date/Time: Saturday, January 07, 2017 12:26 - CONCLUSION: Interval enlargement of the cardiac silhouette which may be artifact due to the portable technique, however, this could also represent a small pericardial effusion. Darcy Almonte MD (Jasmyne Bee) Assessment and Plan Problem List: (1) ESRD (end stage renal disease) Plan: dialysis today due to hyperkalemia, which is due to hyperglycemia and insulin deficiency seen today on a 1K, 350 BFR, goal 2L repeat labs in am continue HD TTS, tomorrow no IVF, on low K high protein diet epogen with HD he is stable from renal perspective can be discharged once cleared by all physicians (2) DM (diabetes mellitus) Plan: insulin as needed monitor glucose (3) HTN (hypertension) Plan: BP stable (4) Bone metabolism disorder Plan: On renvela check phos in am (5) Shortness of breath Plan: medical team to manage he was given zithromax and cefepime BNP 1300, new onset CHF? hx of smoking, may have developed COPD (Jasmyne Bee) Assessment and Plan patient was seen and examined. Agree with above assessment and plan. Hyperkalemia should correct with dialysis. He needs dietary potassium restriction. He is a brittle type 1 diabetic, insulin lack and hyperglycemia contributed to hyperkalemia. He can be discharged after dialysis. We will continue TTS schedule after today. (Maurice Schultz MD) Jasmyne Bee Jan 08, 2017 11:53 Maurice Schultz MD Jan 09, 2017 14:36
--- NOTE | 2017-01-08 17:14 | EKG ---
Date Performed: 01/07/2017 Time Performed: 23:21:42 PTAGE: 56 years EKG: Sinus rhythm VOLTAGE CRITERIA FOR LVH Voltage has increasd since prior tracing. Clinical corrolation is suggested . ABNORMAL ECG PREVIOUS TRACING : 02/19/2015 15.01 DOCTOR: Brain Cruz Interpretating Date/Time 01/09/2017 07:05:15
[2017-01-08] MEDS: AZITHROMYCIN INJ 500 MG in SODIUM CHLOR 0.9% 250 ML INJ 250 ML IV SCH (17:17)
--- NOTE | 2017-01-08 18:34 | HHI.PR ---
Subjective Remarks patient states that he is still think, however shortness of breath has improved. Denies chest pain or short of breath Blood sugars very elevated into the 300-400 range Patient has good oxygen saturation, satting 98% on room air Objective Vitals Vital Signs Date Time Temp Pulse Resp B/P Pulse Ox O2 Delivery O2 Flow Rate FiO2 01/08/17 16:46 96.8 84 17 142/73 98 01/08/17 13:50 97.0 81 18 125/60 98 01/08/17 08:00 98.4 54 18 152/79 99 01/08/17 07:52 96 21 01/08/17 04:00 98.2 84 17 152/75 96 01/08/17 00:00 97.3 84 16 142/71 96 01/07/17 23:13 98.7 82 18 122/58 100 Room Air 01/07/17 23:13 96 Room Air 01/07/17 20:51 98.4 102 18 155/75 97 Room Air 01/07/17 19:53 97 21 I/O 01/07/17 01/07/17 01/07/17 01/08/17 01/08/17 01/08/17 07:00 15:00 23:00 07:00 15:00 23:00 Intake Total 240 ml 480 ml Output Total 2550 ml Balance 240 ml -2070 ml Intake Oral 240 ml 480 ml Output Urine Total 50 ml Hemodialysis 2500 ml # Voids 1 1 # Bowel Movements 0 1 Result Diagram: 01/08/17 0558 01/08/17 0558 Imaging Last Impressions Chest X-Ray 01/07/17 1212 Signed Impressions: Service Date/Time: Saturday, January 07, 2017 12:26 - CONCLUSION: Interval enlargement of the cardiac silhouette which may be artifact due to the portable technique, however, this could also represent a small pericardial effusion. Darcy Almonte MD Objective Remarks GENERAL: This is a 56-year-old male patient coughing occasionally. SKIN: No rashes, ecchymoses or lesions. Cool and dry. HEAD: Atraumatic. Normocephalic. No temporal or scalp tenderness. EYES: Extraocular motions intact. No scleral icterus. No injection or drainage. CARDIOVASCULAR: Regular rate and rhythm without murmurs, gallops, or rubs. RESPIRATORY: decreased air entry bilaterally scattered expiratory wheezing GASTROINTESTINAL: Abdomen soft, non-tender, nondistended. No guarding. MUSCULOSKELETAL: Extremities without clubbing, cyanosis, or edema. No joint tenderness, effusion, or edema noted. No calf tenderness. Negative Homans sign bilaterally. NEUROLOGICAL: Awake and alert. no focal deficits. Motor and sensory grossly within normal limits. Five out of 5 muscle strength in all muscle groups. Normal speech. Medications and IVs Current Medications Medications (Trade) Dose Ordered Sig/April Route Start Time Stop Time Status Last Admin (NS Flush) 2 ml UNSCH PRN IVF 01/07/17 12:15 (NS Flush) 2 ml UNSCH PRN IV FLUSH 01/07/17 16:15 (NS Flush) 2 ml BID IV FLUSH 01/07/17 21:00 01/08/17 08:10 (Tylenol) 650 mg Q4H PRN PO 01/07/17 16:15 (Zofran Inj) 4 mg Q6H PRN IVP 01/07/17 16:15 (Colace) 100 mg Q12H PO 01/07/17 18:00 01/08/17 17:10 (Heparin Inj) 5,000 units Q12H SQ 01/07/17 18:00 01/08/17 17:11 (Narcan Inj) 0.4 mg UNSCH PRN IV 01/07/17 16:15 Methylprednisolone Sodium Succinate 60 mg 60 mg Q6H IV PUSH 01/07/17 23:00 01/08/17 17:00 Cefepime HCl 1000 mg/Sodium Chloride 100 ml @ 200 mls/hr DAILY@18 IV 01/07/17 18:00 01/07/17 21:10 (Zithromax Inj/ NS 250 ml Inj) 250 ml @ 250 mls/hr Q24H IV 01/07/17 17:00 01/08/17 17:17 (Lyrica) 75 mg DAILY PO 01/08/17 09:00 01/08/17 08:08 (Lopressor) 25 mg Q12HR PO 01/07/17 21:00 01/08/17 08:09 (Norvasc) 5 mg DAILY PO 01/08/17 09:00 01/08/17 08:08 (Levemir Inj) 15 units HS SQ 01/07/17 21:00 01/07/17 21:11 (Renvela) 800 mg TIDAC PO 01/07/17 17:00 01/08/17 17:00 (D50w (Vial) Inj) 25 ml UNSCH PRN IV PUSH 01/07/17 16:30 (Glucagon Inj) 1 mg UNSCH PRN OTHER 01/07/17 16:30 Guaifenesin/ Dextromethorphan 10 ml 10 ml Q4H PRN PO 01/07/17 20:45 01/08/17 13:56 (NS 1000 ml Inj) 1,000 ml @ 0 mls/hr Q0M PRN IV 01/08/17 10:10 Heparin Sodium (Porcine) 8000 units 8,000 units UNSCH PRN IVF 01/08/17 10:15 Sodium Chloride 1,000 ml @ 200 mls/hr Q5H PRN IV 01/08/17 10:10 (NS 1000 ml Inj) 1,000 ml @ 0 mls/hr Q0M PRN IV 01/08/17 10:10 (Mannitol Inj) 12.5 gm UNSCH PRN IV 01/08/17 10:15 (Albumin 25% Inj) 25 gm UNSCH PRN IV 01/08/17 10:15 (NS Flush) 5 ml UNSCH PRN IV FLUSH 01/08/17 10:15 (Heparin Inj) UNSCH PRN .XX 01/08/17 10:15 (Gentamicin (Dialysis) Inj) 20 mg UNSCH PRN IV 01/08/17 10:15 (Zofran Inj) 4 mg UNSCH PRN IV 01/08/17 10:15 (Tylenol) 650 mg UNSCH PRN PO 01/08/17 10:15 (Benadryl) 25 mg UNSCH PRN PO 01/08/17 10:15 (Nitrostat Sl) 0.4 mg UNSCH PRN SL 01/08/17 10:15 (Catapres) 0.1 mg UNSCH PRN PO 01/08/17 10:15 (Epogen Inj) 4,000 units UNSCH PRN IV 01/08/17 10:15 (Gelfoam 12 Mm/7 Mm Top) 1 foam UNSCH PRN TOP 01/08/17 10:15 Urinary Catheter: No Vascular Central Line Catheter: No A/P Assessment and Plan his is a 56-year-old male patient with past medical history was includes end- stage renal disease on hemodialysis Sunday and Sunday, diabetes mellitus type 1 and hypertension. Patient reports for the past one to 2 weeks he has had a nonproductive cough. SOB COPD exacerbation cefepime 1 gram IV Q24H after HD azithromycin 500mg IV Q day Duonebs Q4H while awake and Q2H as needed Decrease supplemental dose to 40 mg IV every 8 hours. Blood culture negative x1. Negative for influenza A and B antigen. Consult pulmonology. Will need PFT's when more stable. DM uncontrolled Accu-Cheks before meals at bedtime with sliding scale insulin coverage Continue renal/diabetic diet 01/08 Blood sugars still uncontrolled - likely worsened by steroids. I will increase Levemir to 20 mg SQ q 12hrs and start prandial insulin 5 units of Novolog insulin TIDAC. Diabetic neuropathy continue Lyrica Hypertension: Bp slightly elevated. Continue metoprolol 25 mg po BID and increase amlodipine to 10 mg daily. End-stage renal disease on hemodialysis consult nephrology patient regularly has dialysis Sunday and Sunday Sevelamer 800 mg with meals 01/08 sp hemodyalsis today. Hyperkalemia: Patient status post hemodialysis. Continue to monitor BMP. DVT prophylaxis heparin Discharge Planning Continue to monitor and the medical floor. Alexandre Fleming MD Jan 08, 2017 18:34
[2017-01-08] MEDS ORDERED: GLUCAGON 1 MG/ML VIAL OTHER PRN (19:00)
[2017-01-08] MEDS ORDERED: DEXTROSE 50% IN WATER 50 ML VIAL(D50) IV PUSH PRN (19:00)
[2017-01-08] MEDS: CEFEPIME INJ 1,000 MG in SODIUM CHLORIDE 0.9% INJ 100 ML IV SCH (19:01)
[2017-01-08 20:08] LABS: BICARBONATE 26.1 MEQ/L (21.0-32.0); POTASSIUM 4.4 MEQ/L (3.5-5.1)
[2017-01-08] MEDS ORDERED: SEVELAMER CARBONATE 800 MG TAB PO SCH (21:00)
[2017-01-09] VITALS (7 sets, daily range): BP systolic 121–139; BP diastolic 55–73; PULSE 76–84; RESP 16–20; TEMP 96–97.8; O2SAT 93–98
[2017-01-09] MEDS: guaiFENesin/DEXTROMETHORPHAN 200 MG/20 MG/10 ML CUP PO PRN ×4 (03:05→17:21)
[2017-01-09] MEDS: DOCUSATE SODIUM 100 MG CAP PO SCH ×2 (05:47→17:22)
[2017-01-09] MEDS: INSULIN ASPART SUPPLEMENTAL SCALE SQ SCH ×4 (05:48→21:08)
[2017-01-09] MEDS: HEPARIN SODIUM - SQ 10,000 UNITS/ML VIAL SQ SCH ×2 (05:48→17:23)
[2017-01-09] MEDS: INSULIN DETEMIR 100 UNITS/ML VIAL SQ SCH ×2 (05:48→21:08)
[2017-01-09] MEDS: methylPREDNISolone SOD SUCC 125 MG/2 ML VIAL IV PUSH SCH ×3 (05:48→21:09)
[2017-01-09 06:17] LABS: BASOPHIL % 0.2 % (0.0-2.0); HEMATOCRIT 31.3 % (39.0-51.0); HEMO FLAGS DIFF FINAL; LYMPH % 6.4 % (9.0-44.0); LYMPHOCYTE # 0.6 TH/MM3 (1.0-4.8); MEAN CELL VOLUME 86.1 FL (80.0-100.0); MEAN CORPUSCULAR HEMOGLOBIN 28.3 PG (27.0-34.0); MEAN CORPUSCULAR HGB CONC 32.8 % (32.0-36.0); MONO % 5.2 % (0.0-8.0); NEUT % 88.2 % (16.0-70.0); PLATELET COUNT 125 TH/MM3 (150-450); RED BLOOD COUNT 3.64 MIL/MM3 (4.50-5.90); RED CELL DISTRIBUTION WIDTH 15.5 % (11.6-17.2)
[2017-01-09 07:00] LABS: ANION GAP 11 MEQ/L (5-15); BICARBONATE 27.9 MEQ/L (21.0-32.0); BLOOD UREA NITROGEN 58 MG/DL (7-18); CHLORIDE 97 MEQ/L (98-107); GLOMERULAR FILTRATION RATE 7 ML/MIN (>89); MAGNESIUM 2.3 MG/DL (1.5-2.5); POTASSIUM 4.9 MEQ/L (3.5-5.1); SODIUM (NA) 136 MEQ/L (136-145)
[2017-01-09] MEDS: INSULIN ASPART 1,000 UNITS/10 ML VIAL SQ SCH ×3 (08:00→17:24)
[2017-01-09] MEDS: SEVELAMER CARBONATE 800 MG TAB PO SCH ×3 (08:16→17:21)
[2017-01-09] MEDS: amLODIPine BESYLATE 5 MG TAB PO SCH (08:16)
[2017-01-09] MEDS: PREGABALIN 75 MG CAP PO SCH (08:16)
[2017-01-09] MEDS: METOPROLOL TARTRATE 25 MG TAB PO SCH ×2 (08:16→21:08)
[2017-01-09] MEDS: SODIUM CHLORIDE 0.9% FLUSH 10 ML FLUSH IV FLUSH SCH ×2 (08:20→21:00)
[2017-01-09] MEDS: RESP: ALBUTEROL 2.5 MG/IPRATROPIUM 0.5 MG NEB (SCH) NEB ×4 (10:24→20:28)
--- NOTE | 2017-01-09 10:37 | HHI.NPPN ---
Subjective General Problems: Anemia Renal Failure: Chronic, End Stage Renal Disease Interval History Sitting up in bed. He looks well. Due today for dialysis. (Jasmyne Bee) Review of Systems General Constitutional: Fatigue (Jasmyne Bee) Respiratory Lungs: SOB, Cough (Jasmyne Bee) Objective Data Data 01/08/17 01/09/17 19:00 07:00 Intake Total 480 ml 600 ml Output Total 2550 ml 0 ml Balance -2070 ml 600 ml Intake Oral 480 ml 600 ml Output Urine Total 50 ml 0 ml Hemodialysis 2500 ml # Voids 1 0 # Bowel Movements 1 0 Vital Signs Date Time Temp Pulse Resp B/P Pulse Ox O2 Delivery O2 Flow Rate FiO2 01/09/17 10:27 96 21 01/09/17 08:00 96.0 76 20 125/63 93 01/09/17 00:00 97.3 84 16 131/72 97 01/08/17 20:38 96 21 01/08/17 20:00 98.7 89 16 144/69 94 01/08/17 16:46 96.8 84 17 142/73 98 01/08/17 13:50 97.0 81 18 125/60 98 (Jasmyne Bee) -: 01/09/17 0516 01/09/17 0516 Imaging Last Impressions Chest X-Ray 01/07/17 1212 Signed Impressions: Service Date/Time: Saturday, January 07, 2017 12:26 - CONCLUSION: Interval enlargement of the cardiac silhouette which may be artifact due to the portable technique, however, this could also represent a small pericardial effusion. Darcy Almonte MD (Jasmyne Bee) Physical Exam General Appearance: Well Developed, Well Nourished, No Acute Distress (Jasmyne Bee) Throat Throat Exam: Oral Mucosa [employer] & Moist (Jasmyne Bee) Neck Neck Exam: Neck Supple (Jasmyne Bee) Pulmonary Resp Exam: Breath Sounds Equal, No Distress, Rhonchi (Jasmyne Bee) Cardiology CV Exam: Regular, Normal Sinus Rhythm (Jasmyne Bee) Gastrointestinal/Abdomen GI Exam: Soft, Non-Tender, Bowel Sounds Present (Jasmyne Bee) Musculoskeletal MS Exam: Joints Intact, Normal Gait, Normal Tone (Jasmyne Bee) Integumentary Skin Exam: Clear, Warm, Dry, Intact (Jasmyne Bee) Extremeties Extremities Exam: No Edema, Pedal Pulses Palpable Extremeties Remarks left arm AVF, + thrill/bruit (Jasmyne Bee) Assessment/Plan Discussed Condition With: Patient Assessment Summary: Anemia of CKD, Hypertension, Diabetes Mellitus, End Stage Renal Disease Problem List: (1) ESRD (end stage renal disease) Plan: dialyzed yesterday due to hyperkalemia (2500 ml UF); that has corrected resume typical TTS HD schedule today no IVF, on low K high protein diet epogen with HD he is stable from renal perspective can be discharged from our perspective (2) Shortness of breath Plan: WBC normal; he is afebrile; on Zithromax and cefepime, steroid dosage decreased hx of smoking, may have developed COPD pulmonary consulted, may need outpatient PFTs BNP 1300, new onset CHF? (3) DM (diabetes mellitus) Plan: insulin as needed, dosage increased steroids likely contributing to hyperglycemia monitor glucose (4) HTN (hypertension) Plan: BP stable (5) Bone metabolism disorder Plan: On renvela phosphorus level noted (Jasmyne Bee) Plan patient was seen and examined. He is stable for discharge from renal standpoint. Recommend to stop Steroids. (Maurice Schultz MD) Jasmyne Bee Jan 09, 2017 10:37 Mauriec Schultz MD Jan 09, 2017 14:47
--- NOTE | 2017-01-09 12:53 | HHI.PR ---
Subjective Remarks sob resolved, denies cp denies fevers/chills stable vital signs patient with good o2sat on room air Objective Vitals Vital Signs Date Time Temp Pulse Resp B/P Pulse Ox O2 Delivery O2 Flow Rate FiO2 01/09/17 11:43 96.5 79 19 134/73 98 01/09/17 10:27 96 21 01/09/17 08:00 96.0 76 20 125/63 93 01/09/17 00:00 97.3 84 16 131/72 97 01/08/17 20:38 96 21 01/08/17 20:00 98.7 89 16 144/69 94 01/08/17 16:46 96.8 84 17 142/73 98 01/08/17 13:50 97.0 81 18 125/60 98 I/O 01/08/17 01/08/17 01/08/17 01/09/17 01/09/17 01/09/17 07:00 15:00 23:00 07:00 15:00 23:00 Intake Total 240 ml 480 ml 240 ml 360 ml Output Total 2550 ml 0 ml Balance 240 ml -2070 ml 240 ml 360 ml Intake Oral 240 ml 480 ml 240 ml 360 ml Output Urine Total 50 ml 0 ml Hemodialysis 2500 ml # Voids 1 1 0 # Bowel Movements 0 1 0 Result Diagram: 01/09/17 0516 01/09/17 0516 Imaging Last Impressions Chest X-Ray 01/07/17 1212 Signed Impressions: Service Date/Time: Saturday, January 07, 2017 12:26 - CONCLUSION: Interval enlargement of the cardiac silhouette which may be artifact due to the portable technique, however, this could also represent a small pericardial effusion. Darcy Almonte MD Objective Remarks GENERAL: This is a 56-year-old male patient coughing occasionally. SKIN: No rashes, ecchymoses or lesions. Cool and dry. HEAD: Atraumatic. Normocephalic. No temporal or scalp tenderness. EYES: Extraocular motions intact. No scleral icterus. No injection or drainage. CARDIOVASCULAR: Regular rate and rhythm without murmurs, gallops, or rubs. RESPIRATORY: decreased air entry bilaterally scattered expiratory wheezing GASTROINTESTINAL: Abdomen soft, non-tender, nondistended. No guarding. MUSCULOSKELETAL: Extremities without clubbing, cyanosis, or edema. No joint tenderness, effusion, or edema noted. No calf tenderness. Negative Homans sign bilaterally. NEUROLOGICAL: Awake and alert. no focal deficits. Motor and sensory grossly within normal limits. Five out of 5 muscle strength in all muscle groups. Normal speech. Procedures none Medications and IVs Current Medications Medications (Trade) Dose Ordered Sig/April Route Start Time Stop Time Status Last Admin (NS Flush) 2 ml UNSCH PRN IV FLUSH 01/07/17 16:15 (NS Flush) 2 ml BID IV FLUSH 01/07/17 21:00 01/09/17 08:20 (Tylenol) 650 mg Q4H PRN PO 01/07/17 16:15 (Zofran Inj) 4 mg Q6H PRN IVP 01/07/17 16:15 (Colace) 100 mg Q12H PO 01/07/17 18:00 01/09/17 05:47 (Heparin Inj) 5,000 units Q12H SQ 01/07/17 18:00 01/09/17 05:48 Naloxone HCl 0.4 mg 0.4 mg UNSCH PRN IV 01/07/17 16:15 (Maxipime Inj/NS Inj) 100 ml @ 200 mls/hr DAILY@18 IV 01/07/17 18:00 01/08/17 19:01 (Lyrica) 75 mg DAILY PO 01/08/17 09:00 01/09/17 08:16 (Lopressor) 25 mg Q12HR PO 01/07/17 21:00 01/09/17 08:16 (Norvasc) 5 mg DAILY PO 01/08/17 09:00 01/09/17 08:16 Guaifenesin/ Dextromethorphan 10 ml 10 ml Q4H PRN PO 01/07/17 20:45 01/09/17 11:58 (NS 1000 ml Inj) 1,000 ml @ 0 mls/hr Q0M PRN IV 01/08/17 10:10 Heparin Sodium (Porcine) 8000 units 8,000 units UNSCH PRN IVF 01/08/17 10:15 Sodium Chloride 1,000 ml @ 200 mls/hr Q5H PRN IV 01/08/17 10:10 (NS 1000 ml Inj) 1,000 ml @ 0 mls/hr Q0M PRN IV 01/08/17 10:10 (Mannitol Inj) 12.5 gm UNSCH PRN IV 01/08/17 10:15 (Albumin 25% Inj) 25 gm UNSCH PRN IV 01/08/17 10:15 (NS Flush) 5 ml UNSCH PRN IV FLUSH 01/08/17 10:15 (Heparin Inj) UNSCH PRN .XX 01/08/17 10:15 (Gentamicin (Dialysis) Inj) 20 mg UNSCH PRN IV 01/08/17 10:15 (Zofran Inj) 4 mg UNSCH PRN IV 01/08/17 10:15 (Tylenol) 650 mg UNSCH PRN PO 01/08/17 10:15 (Benadryl) 25 mg UNSCH PRN PO 01/08/17 10:15 (Nitrostat Sl) 0.4 mg UNSCH PRN SL 01/08/17 10:15 (Catapres) 0.1 mg UNSCH PRN PO 01/08/17 10:15 (Epogen Inj) 4,000 units UNSCH PRN IV 01/08/17 10:15 (Gelfoam 12 Mm/7 Mm Top) 1 foam UNSCH PRN TOP 01/08/17 10:15 (Levemir Inj) 20 units HS SQ 01/08/17 21:00 01/08/17 21:15 (NovoLOG INJ) 5 units TIDAC SQ 01/09/17 08:00 01/09/17 11:24 (D50w (Vial) Inj) 25 ml UNSCH PRN IV PUSH 01/08/17 19:00 (Glucagon Inj) 1 mg UNSCH PRN OTHER 01/08/17 19:00 (Renvela) 2,400 mg TIDAC PO 01/09/17 08:00 01/09/17 11:21 (SoluMEDROL INJ) 40 mg Q8HR IV PUSH 01/09/17 14:00 (Zithromax) 250 mg DAILY PO 01/10/17 09:00 Urinary Catheter: No Vascular Central Line Catheter: No A/P Assessment and Plan his is a 56-year-old male patient with past medical history was includes end- stage renal disease on hemodialysis Sunday and Sunday, diabetes mellitus type 1 and hypertension. Patient reports for the past one to 2 weeks he has had a nonproductive cough. SOB COPD exacerbation cefepime 1 gram IV Q24H after HD azithromycin 500mg IV Q day Duonebs Q4H while awake and Q2H as needed 01/09 DC Solumedrol and start prednisone. Blood culture negative x2. Negative for influenza A and B antigen. Pulmonology recommendations appreciated. DM uncontrolled Accu-Cheks before meals at bedtime with sliding scale insulin coverage Continue renal/diabetic diet 01/08 Blood sugars still uncontrolled - likely worsened by steroids. I will increase Levemir to 20 mg SQ q 12hrs and start prandial insulin 5 units of Novolog insulin TIDAC. 01/09 Blood sugar control improved. Continue Levemir 20 mg SQ Q 12 hrs and prandial Novolog insulin 5 units TIDAC. Continue SSI with insulin Novolog. Diabetic neuropathy continue Lyrica - stable Hypertension: Bp slightly elevated. Continue metoprolol 25 mg po BID and increase amlodipine to 10 mg daily. 01/09 BP stable today. Continue metoprolol as above and amlodipine 10 mg daily. End-stage renal disease on hemodialysis 01/09 yesterday for hyperkalemia which has resolved. Resume Sunday and Sunday schedule today. Continue sevelamer. Hyperkalemia: Resolved after hemodialysis. Continue to monitor BMP. DVT prophylaxis heparin Discharge Planning Dc home in am pending PFT's. Alexandre Fleming MD Jan 09, 2017 12:53
[2017-01-09 16:00] LABS: HEMOGLOBIN A1b 1.2 %; HEMOGLOBIN Ao 78.9 %; HEMOGLOBIN F 1.6 %; HEMOGLOBIN LA1C 2.6 %; HEMOGLOBIN P3 5.3 %
[2017-01-09] MEDS: CEFEPIME INJ 1,000 MG in SODIUM CHLORIDE 0.9% INJ 100 ML IV SCH (17:26)
[2017-01-10 00:11] VITALS: BP 126/63; PULSE 78; RESP 19; TEMP 96.6; O2SAT 95
--- NOTE | 2017-01-10 05:39 | MB ---
cc: TASH POPE DATE OF CONSULTATION 01/09/2017 REASON FOR CONSULTATION COPD. HISTORY OF PRESENT ILLNESS This is a 56-year-old -[place] male with a history of end-stage renal disease on hemodialysis, and a history of diabetes and hypertension. He has been coughing for the past 2-3 weeks. The patient noticed that he has had some shortness of breath associated with it as well as wheezing and had some fevers and chills as well and an occasional headache. He came in for evaluation and upon arrival a chest x-ray was done which showed no active pulmonary infiltrates. The patient, however, was hypoxic and was placed on oxygen and has been started on IV steroids and IV antibiotics for an exacerbation of bronchitis. He denies chest pains. He has had no hemoptysis and he has had no leg swelling. He does go for dialysis every other day. PAST HISTORY 1. History of hypertension. 2. End-stage renal disease. 3. A-V fistula in the left arm. 4. History of COPD. ALLERGIES No drug allergies. HABITS The patient smoked half to one pack-per day for about 20 years and has stopped smoking. No significant alcohol recently. MEDICATIONS 1. Med list included Lantus insulin 20 units subcu b.i.d. 2. Metoprolol 25 mg daily. 3. Amlodipine 10 mg a day. 4. Renvela 800 mg t.i.d. FAMILY HISTORY Includes history end-stage renal disease in his father, two brothers with diabetes and mother with a history of cancer. SYSTEMS REVIEW The patient has lost weight. He has postnasal drip, cough, wheezing, epigastric distress. Denies nausea, vomiting. He has no urinary symptoms. She has no leg or calf muscle pains. No depression or anxiety. PHYSICAL EXAMINATION GENERAL: This is an averagely built middle-aged -[place] male who is in no acute distress. VITAL SIGNS: Blood pressure 150/80, pulse 90, respirations 22, temperature 97.2. HEENT: Head normocephalic. Pupils reactive and equal. Tongue moist. Throat clear. Nasal mucosa injected. NECK: Supple. No bruits. No thyroid enlargement or lymphadenopathy. CHEST: Equal movements with scattered wheezes bilaterally, prolonged expirations. HEART: The heart sounds are regular. S1-S2; no murmur. No S3. ABDOMEN: Soft, protuberant. No masses, no organomegaly. EXTREMITIES: No edema. Normal reflexes. No calf tenderness. IMPRESSION 1. COPD and chronic bronchitis with acute exacerbation. 2. End-stage renal disease on dialysis. 3. Diabetes mellitus. 4. Hypertension. PLAN 1. The patient will be continued on cefepime 1 gram daily, IV Zithromax 500 mg daily and DuoNeb solution by nebulizer q.i.d. 2. Solu-Medrol switched to 40 mg IV q. 6. 3. Pulmonary function study to be done at the bedside. 4. He was also placed on Symbicort 160/4.5, two puffs twice daily. 5. Continue Lantus insulin. 6. If he has not had a CAT scan in the last one year, a CT of the chest will be requested to rule out any lung nodules. Thank you Dr. Markham for this consultation. MD ANY Mera/PHIL /11:57 PM /5:25 AM
[2017-01-10] MEDS: guaiFENesin/DEXTROMETHORPHAN 200 MG/20 MG/10 ML CUP PO PRN (06:22)
[2017-01-10] MEDS: HEPARIN SODIUM - SQ 10,000 UNITS/ML VIAL SQ SCH (06:23)
[2017-01-10] MEDS: methylPREDNISolone SOD SUCC 125 MG/2 ML VIAL IV PUSH SCH (06:23)
[2017-01-10] MEDS: DOCUSATE SODIUM 100 MG CAP PO SCH (06:23)
[2017-01-10] MEDS: INSULIN DETEMIR 100 UNITS/ML VIAL SQ SCH (06:23)
[2017-01-10] MEDS: INSULIN ASPART SUPPLEMENTAL SCALE SQ SCH ×3 (06:24→16:00)
[2017-01-10] MEDS: SEVELAMER CARBONATE 800 MG TAB PO SCH ×3 (08:00→17:00)
[2017-01-10] MEDS: RESP: ALBUTEROL 2.5 MG/IPRATROPIUM 0.5 MG NEB (SCH) NEB ×2 (08:34→14:00)
[2017-01-10 08:37] VITALS: O2SAT 97
[2017-01-10] MEDS: SODIUM CHLORIDE 0.9% FLUSH 10 ML FLUSH IV FLUSH SCH (08:41)
[2017-01-10] MEDS: amLODIPine BESYLATE 5 MG TAB PO SCH ×2 (08:41→09:00)
[2017-01-10] MEDS: METOPROLOL TARTRATE 25 MG TAB PO SCH ×2 (08:41→09:00)
[2017-01-10] MEDS: PREGABALIN 75 MG CAP PO SCH (08:41)
[2017-01-10] MEDS: INSULIN ASPART 1,000 UNITS/10 ML VIAL SQ SCH ×3 (08:41→17:00)
[2017-01-10 09:00] VITALS: BP 110/62; PULSE 79; RESP 20; TEMP 97.6; O2SAT 95
[2017-01-10] MEDS ORDERED: AZITHROMYCIN 250 MG TAB PO SCH (09:00)
--- NOTE | 2017-01-10 09:34 | HHI.NPPN ---
Subjective General Problems: Anemia Renal Failure: Chronic, End Stage Renal Disease Interval History Ambulating in room, no respiratory distress noted. He has been evaluated by pulmonary. (Jasmyne Bee) Review of Systems General Constitutional: Fatigue (Jasmyne Bee) Respiratory Lungs: SOB, Cough (Jasmyne Bee) Objective Data Data 01/09/17 01/10/17 19:00 07:00 Intake Total 480 ml 720 ml Output Total 3050 ml Balance -2570 ml 720 ml Intake Oral 480 ml 720 ml Output Urine Total 50 ml Hemodialysis 3000 ml # Voids 1 3 # Bowel Movements 1 1 Vital Signs Date Time Temp Pulse Resp B/P Pulse Ox O2 Delivery O2 Flow Rate FiO2 01/10/17 08:37 97 Whisper-Flow 21 01/10/17 00:11 96.6 78 19 126/63 95 01/09/17 20:30 98 21 01/09/17 19:26 97.5 81 16 139/65 96 01/09/17 17:17 97.8 78 18 121/55 96 01/09/17 11:43 96.5 79 19 134/73 98 01/09/17 10:27 96 21 (Jasmyne Bee) -: 01/09/17 0516 01/09/17 0516 Imaging Last Impressions Chest X-Ray 01/07/17 1212 Signed Impressions: Service Date/Time: Saturday, January 07, 2017 12:26 - CONCLUSION: Interval enlargement of the cardiac silhouette which may be artifact due to the portable technique, however, this could also represent a small pericardial effusion. Darcy Almonte MD (Jasmyne Bee) Physical Exam General Appearance: Well Developed, Well Nourished, No Acute Distress, Comfortable ( Jasmyne Bee) Throat Throat Exam: Oral Mucosa [place] & Moist (Jasmyne Bee) Neck Neck Exam: Neck Supple (Jasmyne Bee) Pulmonary Resp Exam: Breath Sounds Equal, No Distress, Rhonchi Resp Remarks expiratory wheezing (Jasmyne Bee) Cardiology CV Exam: Regular, Normal Sinus Rhythm (Jasmyne Bee) Gastrointestinal/Abdomen GI Exam: Soft, Non-Tender, Bowel Sounds Present (Jasmyne Bee) Musculoskeletal MS Exam: Joints Intact, Normal Gait, Normal Tone, Good Strength (Jasmyne Bee) Integumentary Skin Exam: Clear, Warm, Dry, Intact (Jasmyne Bee) Extremeties Extremities Exam: No Edema, Pedal Pulses Palpable Extremeties Remarks left arm AVF, + thrill/bruit (Jasmyne Bee) Assessment/Plan Discussed Condition With: Patient Assessment Summary: Anemia of CKD, Hypertension, Diabetes Mellitus, End Stage Renal Disease Problem List: (1) ESRD (end stage renal disease) Plan: Continue TTS HD schedule 3L UF yesterday no acute renal concerns no IVF, on low K high protein diet epogen with HD he is stable from renal perspective; has existing outpatient arrangements for dialysis can be discharged when cleared by all physicians (2) Shortness of breath Plan: WBC normal; he is afebrile on Zithromax and cefepime with solumedrol hx of smoking, may have developed COPD pulmonary has evaluated, inpatient PFTs ordered and pending will give nicotine patch (3) DM (diabetes mellitus) Plan: insulin as ordered steroids likely contributing to hyperglycemia monitor glucose (4) HTN (hypertension) Plan: BP stable (5) Bone metabolism disorder Plan: On renvela recheck phosphorus level in am (Jasmyne Bee) Plan patient was seen and examined. He was advised to quit smoking. He appears stable. Cleared for discharge from renal standpoint. (Maurice Schultz MD) Jasmyne Bee Jan 10, 2017 09:34 Maurice Schultz MD Jan 11, 2017 11:55
[2017-01-10 11:40] VITALS: BP 139/70; PULSE 81; RESP 17; TEMP 96.2; O2SAT 96
--- NOTE | 2017-01-10 13:09 | HHI.PR ---
Subjective Remarks sob much better still coughing denies fevers denies cp stable vital signs Objective Vitals Vital Signs Date Time Temp Pulse Resp B/P Pulse Ox O2 Delivery O2 Flow Rate FiO2 01/10/17 11:40 96.2 81 17 139/70 96 01/10/17 09:00 97.6 79 20 110/62 95 01/10/17 08:37 97 Whisper-Flow 21 01/10/17 00:11 96.6 78 19 126/63 95 01/09/17 20:30 98 21 01/09/17 19:26 97.5 81 16 139/65 96 01/09/17 17:17 97.8 78 18 121/55 96 I/O 01/09/17 01/09/17 01/09/17 01/10/17 01/10/17 01/10/17 07:00 15:00 23:00 07:00 15:00 23:00 Intake Total 360 ml 480 ml 360 ml 360 ml Output Total 0 ml 50 ml 3000 ml Balance 360 ml 430 ml -2640 ml 360 ml Intake Oral 360 ml 480 ml 360 ml 360 ml Output Urine Total 0 ml 50 ml Hemodialysis 3000 ml # Voids 1 1 2 # Bowel Movements 1 0 1 Result Diagram: 01/09/17 0516 01/09/17 0516 Imaging Last Impressions Chest X-Ray 01/07/17 1212 Signed Impressions: Service Date/Time: Saturday, January 07, 2017 12:26 - CONCLUSION: Interval enlargement of the cardiac silhouette which may be artifact due to the portable technique, however, this could also represent a small pericardial effusion. Darcy Almonte MD Objective Remarks GENERAL: This is a 56-year-old male patient coughing occasionally. SKIN: No rashes, ecchymoses or lesions. Cool and dry. HEAD: Atraumatic. Normocephalic. No temporal or scalp tenderness. EYES: Extraocular motions intact. No scleral icterus. No injection or drainage. CARDIOVASCULAR: Regular rate and rhythm without murmurs, gallops, or rubs. RESPIRATORY: decreased air entry bilaterally scattered expiratory wheezing GASTROINTESTINAL: Abdomen soft, non-tender, nondistended. No guarding. MUSCULOSKELETAL: Extremities without clubbing, cyanosis, or edema. No joint tenderness, effusion, or edema noted. No calf tenderness. Negative Homans sign bilaterally. NEUROLOGICAL: Awake and alert. no focal deficits. Motor and sensory grossly within normal limits. Five out of 5 muscle strength in all muscle groups. Normal speech. Procedures none Medications and IVs Current Medications Medications (Trade) Dose Ordered Sig/April Route Start Time Stop Time Status Last Admin (NS Flush) 2 ml UNSCH PRN IV FLUSH 01/07/17 16:15 (NS Flush) 2 ml BID IV FLUSH 01/07/17 21:00 01/09/17 08:20 (Tylenol) 650 mg Q4H PRN PO 01/07/17 16:15 (Zofran Inj) 4 mg Q6H PRN IVP 01/07/17 16:15 (Colace) 100 mg Q12H PO 01/07/17 18:00 01/10/17 06:23 (Heparin Inj) 5,000 units Q12H SQ 01/07/17 18:00 01/10/17 06:23 Naloxone HCl 0.4 mg 0.4 mg UNSCH PRN IV 01/07/17 16:15 (Maxipime Inj/NS Inj) 100 ml @ 200 mls/hr DAILY@18 IV 01/07/17 18:00 01/09/17 17:26 (Lyrica) 75 mg DAILY PO 01/08/17 09:00 01/10/17 08:41 (Lopressor) 25 mg Q12HR PO 01/07/17 21:00 01/09/17 21:08 (Norvasc) 5 mg DAILY PO 01/08/17 09:00 01/09/17 08:16 Guaifenesin/ Dextromethorphan 10 ml 10 ml Q4H PRN PO 01/07/17 20:45 01/10/17 06:22 (NS 1000 ml Inj) 1,000 ml @ 0 mls/hr Q0M PRN IV 01/08/17 10:10 Heparin Sodium (Porcine) 8000 units 8,000 units UNSCH PRN IVF 01/08/17 10:15 Sodium Chloride 1,000 ml @ 200 mls/hr Q5H PRN IV 01/08/17 10:10 (NS 1000 ml Inj) 1,000 ml @ 0 mls/hr Q0M PRN IV 01/08/17 10:10 (Mannitol Inj) 12.5 gm UNSCH PRN IV 01/08/17 10:15 (Albumin 25% Inj) 25 gm UNSCH PRN IV 01/08/17 10:15 (NS Flush) 5 ml UNSCH PRN IV FLUSH 01/08/17 10:15 (Heparin Inj) UNSCH PRN .XX 01/08/17 10:15 (Gentamicin (Dialysis) Inj) 20 mg UNSCH PRN IV 01/08/17 10:15 (Zofran Inj) 4 mg UNSCH PRN IV 01/08/17 10:15 (Tylenol) 650 mg UNSCH PRN PO 01/08/17 10:15 (Benadryl) 25 mg UNSCH PRN PO 01/08/17 10:15 (Nitrostat Sl) 0.4 mg UNSCH PRN SL 01/08/17 10:15 (Catapres) 0.1 mg UNSCH PRN PO 01/08/17 10:15 (Epogen Inj) 4,000 units UNSCH PRN IV 01/08/17 10:15 (Gelfoam 12 Mm/7 Mm Top) 1 foam UNSCH PRN TOP 01/08/17 10:15 01/09/17 16:03 (Levemir Inj) 20 units HS SQ 01/08/17 21:00 01/09/17 21:08 (NovoLOG INJ) 5 units TIDAC SQ 01/09/17 08:00 01/10/17 12:15 (D50w (Vial) Inj) 25 ml UNSCH PRN IV PUSH 01/08/17 19:00 (Glucagon Inj) 1 mg UNSCH PRN OTHER 01/08/17 19:00 (Renvela) 2,400 mg TIDAC PO 01/09/17 08:00 01/10/17 12:16 (SoluMEDROL INJ) 40 mg Q8HR IV PUSH 01/09/17 14:00 01/10/17 06:23 (Zithromax) 250 mg DAILY PO 01/10/17 09:00 01/10/17 08:41 Urinary Catheter: No Vascular Central Line Catheter: No A/P Problem List: (1) COPD exacerbation ICD Code: J44.1 Status: Acute (2) SOB (shortness of breath) ICD Code: R06.02 Status: Acute (3) Diabetes mellitus with hyperglycemia ICD Code: E11.65 Status: Acute (4) ESRD on hemodialysis ICD Code: N18.6 Status: Chronic (5) Diabetic nephropathy ICD Code: E11.21 Status: Chronic (6) Tobacco abuse ICD Code: Z72.0 Status: Acute (7) Tobacco abuse counseling ICD Code: Z71.6 Status: Acute Assessment and Plan This is a 56-year-old male patient with past medical history was includes end- stage renal disease on hemodialysis Sunday and Sunday, diabetes mellitus type 1 and hypertension. Patient reports for the past one to 2 weeks he has had a nonproductive cough. SOB COPD exacerbation cefepime 1 gram IV Q24H after HD azithromycin 500mg IV Q day Duonebs Q4H while awake and Q2H as needed 01/10 DC Solumedrol and start prednisone. Continue Azithromycin po. Blood culture negative x3. Negative for influenza A and B antigen. CT chest ordered to asses for nodules as per pulmonology recommendations. PFT 's still pending. DM uncontrolled Accu-Cheks before meals at bedtime with sliding scale insulin coverage Continue renal/diabetic diet 01/08 Blood sugars still uncontrolled - likely worsened by steroids. I will increase Levemir to 20 mg SQ q 12hrs and start prandial insulin 5 units of Novolog insulin TIDAC. 01/09 Blood sugar control improved. Continue Levemir 20 mg SQ Q 12 hrs and prandial Novolog insulin 5 units TIDAC. Continue SSI with insulin Novolog. 01/10 Blood sugar with acceptable control. Continue same management as above. Diabetic neuropathy continue Lyrica - stable Hypertension: Bp slightly elevated. Continue metoprolol 25 mg po BID and increase amlodipine to 10 mg daily. 01/10 BP stable today. Continue metoprolol as above and amlodipine 10 mg daily. End-stage renal disease on hemodialysis 01/09 yesterday for hyperkalemia which has resolved. Resume Sunday and Sunday schedule today. Continue sevelamer. Management as per nephrology. Hyperkalemia: Resolved after hemodialysis. Continue to monitor BMP. Tobacco abuse - advised smoking cessation. DVT prophylaxis heparin Discharge Planning Dc home pending Chest CT and PFT's. Problem Qualifiers (1) Diabetic nephropathy: Qualified Code: E11.21 - Diabetic nephropathy associated with type 2 diabetes mellitus Alexandre Fleming MD Jan 10, 2017 13:09
[2017-01-10] MEDS ORDERED: predniSONE 20 MG TAB PO SCH (14:00)
--- NOTE | 2017-01-10 14:21 | RADRPT ---
EXAM DATE/TIME: 01/10/2017 13:50 [place] COMPARISON: No previous studies available for comparison. INDICATIONS : Cough x2 weeks, denies chest pain RADIATION DOSE: 4.86 CTDIvol (mGy) MEDICAL HISTORY : Diabetes, Pulmonary Disease, Renal Disease SURGICAL HISTORY : None. ENCOUNTER: Initial ACUITY: 2 weeks PAIN SCALE: 0/10 LOCATION: chest TECHNIQUE: Volumetric scanning of the chest was performed. Using automated exposure control and adjustment of t he mA and/or kV according to patient size, radiation dose was kept as low as reasonably achievable to obtain optimal diagnostic quality images. FINDINGS: No pulmonary nodules are identified. No pleural effusions are identified. There are small bulla prese nt bilaterally in both upper lobes the largest measuring 10 mm. Examination of the mediastinum demonstrates no abnormally enlarged lymph nodes by CT criteria. No axi llary or hilar abnormalities are identified. Coronary artery calcifications are present. The visualiz ed upper abdomen demonstrates no abnormality. CONCLUSION: 1. Mild emphysematous changes. No evidence of acute thoracic abnormality. No masses are identified. Naresh Glass MD on January 10, 2017 at 14:11 Board Certified Radiologist. This report was verified electronically.
[2017-01-10 15:40] VITALS: BP 141/71; PULSE 81; RESP 16; TEMP 96.6; O2SAT 95
[2017-01-10] MEDS ORDERED: CEFT500T3 PO (16:45)
[2017-01-10] MEDS ORDERED: ZITH250T PO (16:45)
[2017-01-10] MEDS ORDERED: PRED20 PO (16:47)
[2017-01-10] MEDS ORDERED: SYMB160A INH (16:47)
--- NOTE | 2017-01-10 16:48 | HHI.DS ---
Discharge Summary Admission Date Jan 07, 2017 at 16:22 Discharge Date: Jan 10, 2017 Admitting Diagnosis fluid overload/possible CHF (1) COPD exacerbation ICD Code: J44.1 Diagnosis: Principal (2) SOB (shortness of breath) ICD Code: R06.02 Diagnosis: Principal (3) Diabetes mellitus with hyperglycemia ICD Code: E11.65 Diagnosis: Principal (4) ESRD on hemodialysis ICD Code: N18.6 Diagnosis: Secondary (5) Diabetic nephropathy ICD Code: E11.21 Diagnosis: Secondary (6) Tobacco abuse ICD Code: Z72.0 Diagnosis: Principal (7) Tobacco abuse counseling ICD Code: Z71.6 Diagnosis: Principal Procedures none Brief History - From Admission This is a 56-year-old male patient with past medical history was includes end- stage renal disease on hemodialysis Sunday and Sunday, diabetes mellitus type 1 and hypertension. Patient reports for the past one to 2 weeks he has had a nonproductive cough. Patient reports the cough is getting progressively worse. This point patient has associated shortness of breath and feels as though he can't take a deep breath. Patient reports subjective fevers last night as long with chills and headache. Patient reports the headache is dull and mild in nature. Patient reports he is currently living in a homeless group home and there are multiple other people who appear sick with cough. Patient tried his friends inhaler yesterday does not think it helped the cough. Patient denies nausea or vomiting diarrhea constipation or chest pain. CBC/BMP: 01/09/17 0516 01/09/17 0516 Significant Findings Laboratory Tests Test 01/08/17 01/08/17 01/09/17 05:58 19:37 05:16 Red Blood Count 3.81 MIL/MM3 3.64 MIL/MM3 (4.50-5.90) (4.50-5.90) Hemoglobin 10.9 GM/DL 10.3 GM/DL (13.0-17.0) (13.0-17.0) Hematocrit 32.9 % 31.3 % (39.0-51.0) (39.0-51.0) Platelet Count 113 TH/MM3 125 TH/MM3 (150-450) (150-450) Neutrophils (%) (Auto) 89.3 % 88.2 % (16.0-70.0) (16.0-70.0) Lymphocytes (%) (Auto) 7.9 % 6.4 % (9.0-44.0) (9.0-44.0) Lymphocytes # (Auto) 0.4 TH/MM3 0.6 TH/MM3 (1.0-4.8) (1.0-4.8) Sodium Level 135 MEQ/L (136-145) Potassium Level 6.1 MEQ/L (3.5-5.1) Blood Urea Nitrogen 46 MG/DL (7-18) 44 MG/DL (7-18) 58 MG/DL (7-18) Creatinine 10.59 MG/DL 8.95 MG/DL 9.87 MG/DL (0.60-1.30) (0.60-1.30) (0.60-1.30) Estimat Glomerular Filtration 6 ML/MIN (>89) 7 ML/MIN (>89) 7 ML/MIN (>89) Rate Random Glucose 367 MG/DL 284 MG/DL 180 MG/DL (74-106) (74-106) (74-106) Chloride Level 97 MEQ/L 97 MEQ/L (98-107) (98-107) Neutrophils # (Auto) 8.0 TH/MM3 (1.8-7.7) Hemoglobin A1c 9.2 % (4.3-6.0) Phosphorus Level 5.9 MG/DL (2.5-4.9) Albumin 3.1 GM/DL (3.4-5.0) Imaging Last Impressions Chest CT 01/10/17 0000 Signed Impressions: Service Date/Time: Tuesday, January 10, 2017 13:50 - CONCLUSION: 1. Mild emphysematous changes. No evidence of acute thoracic abnormality. No masses are identified. Naresh Glass MD Chest X-Ray 01/07/17 1212 Signed Impressions: Service Date/Time: Saturday, January 07, 2017 12:26 - CONCLUSION: Interval enlargement of the cardiac silhouette which may be artifact due to the portable technique, however, this could also represent a small pericardial effusion. Darcy Almonte MD PE at Discharge GENERAL: This is a 56-year-old male patient coughing occasionally. SKIN: No rashes, ecchymoses or lesions. Cool and dry. HEAD: Atraumatic. Normocephalic. No temporal or scalp tenderness. EYES: Extraocular motions intact. No scleral icterus. No injection or drainage. CARDIOVASCULAR: Regular rate and rhythm without murmurs, gallops, or rubs. RESPIRATORY: decreased air entry bilaterally scattered expiratory wheezing GASTROINTESTINAL: Abdomen soft, non-tender, nondistended. No guarding. MUSCULOSKELETAL: Extremities without clubbing, cyanosis, or edema. No joint tenderness, effusion, or edema noted. No calf tenderness. Negative Homans sign bilaterally. NEUROLOGICAL: Awake and alert. no focal deficits. Motor and sensory grossly within normal limits. Five out of 5 muscle strength in all muscle groups. Normal speech. Hospital Course This is a 56-year-old male patient with past medical history was includes end- stage renal disease on hemodialysis Sunday and Sunday, diabetes mellitus type 1 and hypertension. Patient reports for the past one to 2 weeks he has had a nonproductive cough. SOB COPD exacerbation cefepime 1 gram IV Q24H after HD azithromycin 500mg IV Q day Duonebs Q4H while awake and Q2H as needed 01/10 DC Solumedrol and start prednisone. Continue Azithromycin po. Blood culture negative x3. Negative for influenza A and B antigen. CT chest ordered to asses for nodules as per pulmonology recommendations. PFT 's still pending. DM uncontrolled Accu-Cheks before meals at bedtime with sliding scale insulin coverage Continue renal/diabetic diet 01/08 Blood sugars still uncontrolled - likely worsened by steroids. I will increase Levemir to 20 mg SQ q 12hrs and start prandial insulin 5 units of Novolog insulin TIDAC. 01/09 Blood sugar control improved. Continue Levemir 20 mg SQ Q 12 hrs and prandial Novolog insulin 5 units TIDAC. Continue SSI with insulin Novolog. 01/10 Blood sugar with acceptable control. Continue same management as above. Diabetic neuropathy continue Lyrica - stable Hypertension: Bp slightly elevated. Continue metoprolol 25 mg po BID and increase amlodipine to 10 mg daily. 01/10 Continue metoprolol as above and amlodipine 10 mg daily. End-stage renal disease on hemodialysis 01/09 yesterday for hyperkalemia which has resolved. Resume Sunday and Sunday schedule today. Continue sevelamer. Management as per nephrology. Hyperkalemia: Resolved after hemodialysis. Continue to monitor BMP. Tobacco abuse - advised smoking cessation. DVT prophylaxis heparin Pt Condition on Discharge: Stable Discharge Disposition: Discharge Home Discharge Time: > 30 minutes Discharge Instructions Follow up Referrals: Pulmonology - 2 Weeks with Paco Altamirano MD New Medications: Budesonide-Formoterol Inh (Symbicort Inh) 160-4.5 Mcg/Act Aero 2 PUFF INH Q12HR #1 Ref 0 INHALER Prednisone (Prednisone) 20 Mg Tab 40 MG PO DAILY Take 40 mg (2 tablets) daily for 5 days Shortness of Breath #10 Ref 0 TAB Azithromycin (Zithromax) 250 Mg Tab 250 MG PO DAILY Infection #10 TAB Cefuroxime (Ceftin) 500 Mg Tab 500 MG PO EVERY OTHER DAY Infection #4 TAB Continued Medications: Amlodipine (Amlodipine) 10 Mg Tab Unknown Dose PO DAILY Blood Pressure Management #0 Ref 0 TAB Insulin Aspart Inj (Novolog Inj) 1,000 Unit/10 Ml Vial 0 SQ DIRECTED Sliding Scale: 170-220: 2units. 221-270: 3units. 271-320: 4unis. 321-370: 5units Blood Sugar Management #10 Ref 0 ML Insulin Glargine Inj (Lantus Solostar Pen Inj) 300 Unit/3 Ml Pen 15-20 UNITS SQ BID 20units in AM/ 15units in evening Blood Sugar Management #3 Ref 0 PEN Metoprolol Tartrate (Metoprolol Tartrate) 25 Mg Tab Unknown Dose PO DAILY #30 Ref 0 TAB Pregabalin (Lyrica) 75 Mg Cap 75 MG PO DAILY #30 Ref 1 CAP Sevelamer Carbonate (Renvela) 800 Mg Tab Unknown Dose PO TID Control phosphorous levels #0 Ref 0 TAB Discontinued Medications: Lisinopril (Lisinopril) 20 Mg Tab Unknown Dose PO DAILY #0 Ref 0 TAB Alexandre Fleming MD Jan 10, 2017 16:48
[2017-01-10] MEDS: RESP: ALBUTEROL 2.5 MG/IPRATROPIUM 0.5 MG NEB (PRN) NEB (16:50)
--- NOTE | 2017-01-10 16:51 | HHI.DCPOC ---
Discharge Care Plan Diagnosis: (1) COPD exacerbation (2) ESRD (end stage renal disease) (3) HTN (hypertension) (4) DM (diabetes mellitus) (5) Dyslipidemia Goals to Promote Your Health * To prevent worsening of your condition and complications * To maintain your health at the optimal level Directions to Meet Your Goals Take your medications as prescribed Follow your dietary instruction Follow activity as directed Keep your appointments as scheduled Take your immunizations and boosters as scheduled If your symptoms worsen call your PCP, if no PCP go to Urgent Care Center or Emergency Room Smoking is Dangerous to Your Health. Avoid second hand smoke Call the 24-hour hour crisis hotline for domestic abuse at Alexandre Fleming MD Jan 10, 2017 16:51
[2017-01-10] MEDS ORDERED: NICO21DI2 T-DERMAL (17:30)
[2017-01-12] MEDS ORDERED: CEFUROXIME AXETIL 500 MG TAB PO SCH (09:00)
[2017-01-15] MEDS ORDERED: SEVEL800 PO (20:11)
[2017-01-15] MEDS ORDERED: LISI10TA3 PO (20:11)
[2017-01-15] MEDS ORDERED: METO25TA6 PO (20:11)
[2017-01-15] MEDS ORDERED: BACL10TA PO (20:11)
[2017-01-15] MEDS ORDERED: ATOR40TA16 PO (20:11)
[2017-01-15] MEDS ORDERED: DIALCAP PO (20:11)
[2017-01-15] MEDS ORDERED: LANTINJ SQ (20:12)
--- NOTE | 2017-02-12 09:57 | RSPPFT ---
DATE OF PROCEDURE: 01/10/17 COMMENTS: Spirometry shows FEV1 of 1.6 at 42% of predicted, FVC of 2.9 at 61%, FEV1/FVC ratio is 53%. The FEF 25-75 is 22% of predicted. Post-bronchodilator study demonstrated mild improvement in the FVC and the FEF 25-75. Lung volumes were not completed. Flow volume loops suggest an obstructive pattern. IMPRESSION: 1. Severe obstructive disease. 2. Significant response to use of bronchodilator indicating some reversibility.
[2017-02-12] MEDS ORDERED: NOVOLOGP2 SQ (18:36)
[2017-02-12] MEDS ORDERED: NEPRLIQ3 PO (18:43)
[2017-02-13] MEDS ORDERED: GABA300C5 PO (06:48)
== END 2017-01-10 18:05 | disposition home or self-care (01) | DRG 190 ==
LOC: NEPC 09:39 → NEDH 14:46 → OBSVTOIN 16:22 → N06B 23:39
PROVIDERS: ADMIT Hospitalist; ATTEND Hospitalist
PROC: 5A1D60Z (ICD-10-PCS; principal; 2017-01-08)
DX: J44.1 Chronic obstructive pulmonary disease with (acute) exacerbation (principal); I12.0 Hypertensive chronic kidney disease with stage 5 chronic kidney disease or end stage renal disease; N18.6 End stage renal disease; E88.89 Other specified metabolic disorders; Z99.2 Dependence on renal dialysis; E10.21 Type 1 diabetes mellitus with diabetic nephropathy; E10.65 Type 1 diabetes mellitus with hyperglycemia; D63.1 Anemia in chronic kidney disease; Z59.0 Homelessness; F17.210 Nicotine dependence, cigarettes, uncomplicated; E87.5 Hyperkalemia; E78.5 Hyperlipidemia, unspecified; Z83.3 Family history of diabetes mellitus; Z84.1 Family history of disorders of kidney and ureter
CPT/HCPCS: 71010; 71250; 80048; 80053; 80069; 82948; 83036; 83605; 83735; 83880; 85007; 85025; 85027; 87040; 87804; 90935; 93005; 94060; 94640; 94664; 99285; J0456; J0692; J1644; J1815; J2930; J7050; J7512

== ENCOUNTER 2017-03-23 16:41 | Emergency (ER) | payer MEDICARE, OTHER ==
[~2017-03-23] VITALS: Ht 175.3 cm; Wt 70.0 kg
[~2017-03-23 16:41] MED LIST changes: +ATOR40TA16 PO; +BACL10TA PO; +DIALCAP PO; +GABA300C5 PO; +LISI10TA3 PO; +METO25TA6 PO; +NEPRLIQ3 PO; +SEVEL800 PO; +SYMB160A INH
[2017-03-23 17:01] VITALS: BP 196/87; PULSE 74; RESP 18; TEMP 97.8; O2SAT 97
--- NOTE | 2017-03-23 17:11 | PD ---
HPI Chief Complaint: Altered Mental Status Time Seen by Provider: 17:11 Travel History International Travel<30 days: No Contact w/Intl Traveler<30days: No Traveled to known affect area: No History of Present Illness HPI 56-year-old Afro-[place] male dialysis patient presents to the [place] from the [facility] via EMS with decreased mental status. Patient was reportedly not dialyzed on Sunday, and may not been dialyzed prior to this. Patient has decreased level of consciousness. He is arousable with pain. He has no known drug allergies. PFSH Past Medical History Blood Disorders: No Heart Rhythm Problems: No Cancer: No Cardiovascular Problems: Yes High Cholesterol: No Chest Pain: No Congestive Heart Failure: No COPD: Yes Diabetes: Yes Dialysis: Yes ( SAT) Diminished Hearing: No Endocrine: Yes Genitourinary: Yes (DIALYSIS sun, , sat) Headaches: Yes Hypertension: Yes Immune Disorder: No Implanted Vascular Access Dvce: Yes Kidney Stones: No Musculoskeletal: Yes Neurologic: Yes (neuropathy) Psychiatric: No Reproductive: No Respiratory: Yes (BRONCHITIS A CHILD) Immunizations Current: Yes Renal Failure: Yes (LEVEL 5) Past Surgical History Arteriovenous Shunt: Yes (lue) Other Surgery: Yes (LT ARM FISTULA) Social History Alcohol Use: No Tobacco Use: Yes Substance Use: No Allergies-Medications (Allergen,Severity, Reaction): Coded Allergies: No Known Allergies (Verified , 02/12/17) Reported Meds & Prescriptions Reported Meds & Active Scripts Active Nepro with Carb Steady (Nutritional Supplements) 1 Liq Liq 1 Can PO HS Novolog Inj (Insulin Aspart) 1,000 Unit/10 Ml Vial 0 SQ DIRECTED Sliding Scale: 170-220: 2units. 221-270: 3units. 271-320: 4units. 321-370: 5units Lantus Solostar Pen Inj (Insulin Glargine) 300 Unit/3 Ml Pen 8-18 Units SQ BID 18units in AM/ 8units in evening Symbicort Inh (Budesonide/Formoterol Fumarate) 160-4.5 Mcg/Act Aero 2 Puff INH Q12HR Lyrica (Pregabalin) 75 Mg Cap 75 Mg PO DAILY Reported Gabapentin Unknown Strength Cap Unknown Dose PO TID Dialyvite Vitamin D 5000 (Cholecalciferol) 5,000 Unit Cap 5,000 Units PO DAILY Baclofen 10 Mg Tab 10 Mg PO TID PRN Atorvastatin (Atorvastatin Calcium) 40 Mg Tab 40 Mg PO HS Renvela (Sevelamer Carbonate) 800 Mg Tab 800 Mg PO DIRECTED 3 Tabs with meals, 2 tabs with snacks. Metoprolol Succinate ER 24 HR (Metoprolol Succinate) 25 Mg Tab 25 Mg PO DAILY Lisinopril 10 Mg Tab 10 Mg PO DAILY Data Data Last Documented VS Vital Signs Date Time Temp Pulse Resp B/P Pulse Ox O2 Delivery O2 Flow Rate FiO2 03/23/17 17:01 97.8 74 18 196/87 97 Orders Electrocardiogram (03/23/17 17:16) Ammonia (03/23/17 17:16) Complete Blood Count With Diff (03/23/17 17:16) Creatine Kinase (Cpk) (03/23/17 17:16) Prothrombin Time / Inr (Pt) (03/23/17 17:16) Act Partial Throm Time (Ptt) (03/23/17 17:16) Troponin I (03/23/17 17:16) Urinalysis - C+S If Indicated (03/23/17 17:16) Chest, Single Ap (03/23/17 17:16) Ct Brain W/O Iv Contrast(Rout) (03/23/17 17:16) Blood Glucose (03/23/17 17:16) Ecg Monitoring (03/23/17 17:16) Iv Access Insert/Monitor (03/23/17 17:16) Oximetry (03/23/17 17:16) Sodium Chloride 0.9% Flush (Ns Flush) (03/23/17 17:30) Sodium Chlorid 0.9% 500 Ml Inj (Ns 500 M (03/23/17 17:30) I-Stat Profile (03/23/17 17:27) Aaron Khanna Mar 23, 2017 17:11 Aaron Khanna Mar 23, 2017 17:11
[2017-03-23] MEDS ORDERED: SODIUM CHLORID 0.9% 500 ML INJ 500 ML IV ONE (17:30)
[2017-03-23] MEDS ORDERED: SODIUM CHLORIDE 0.9% FLUSH 5 ML FLUSH IV FLUSH PRN (17:30)
[2017-03-23 17:41] VITALS: PULSE 74
--- NOTE | 2017-03-23 18:13 | RADRPT ---
EXAM DATE/TIME: 03/23/2017 17:47 [facility] COMPARISON: No previous studies available for comparison. INDICATIONS : Altered mental status. RADIATION DOSE: 46.40 CTDIvol (mGy) MEDICAL HISTORY : Non-responsive. SURGICAL HISTORY : Non-responsive. ENCOUNTER: Initial ACUITY: 1 day PAIN SCALE: Non-responsive LOCATION: cranial TECHNIQUE: Multiple contiguous axial images were obtained of the head. Using automated exposure control and adj ustment of the mA and/or kV according to patient size, radiation dose was kept as low as reasonably a chievable to obtain optimal diagnostic quality images. FINDINGS: CEREBRUM: The ventricles are normal for age. No evidence of midline shift, mass lesion, hemorrhage or acute in farction. No extra-axial fluid collections are seen. POSTERIOR FOSSA: The cerebellum and brainstem are intact. The 4th ventricle is midline. The cerebellopontine angle i s unremarkable. EXTRACRANIAL: The visualized portion of the orbits is intact. SKULL: The calvaria is intact. No evidence of skull fracture. CONCLUSION: Normal examination for a patient of this age. Fabian Strauss MD on March 23, 2017 at 18:09 Board Certified Radiologist. This report was verified electronically.
[2017-03-23 18:15] LABS: APTT (PATIENT) 25.5 SEC (24.3-30.1); PROTHROMBIN TIME - PATIENT 10.7 SEC (9.8-11.6)
[2017-03-23 18:27] LABS: AUTOMATED NEUTROPHIL # 7.3 TH/MM3 (1.8-7.7); BASOPHIL # 0.1 TH/MM3 (0-0.2); BASOPHIL % 0.9 % (0.0-2.0); EOSINOPHIL # 0.6 TH/MM3 (0-0.4); EOSINOPHIL % 5.7 % (0.0-4.0); HEMO FLAGS DIFF FINAL; LYMPH % 13.7 % (9.0-44.0); LYMPHOCYTE # 1.4 TH/MM3 (1.0-4.8); MEAN CELL VOLUME 87.1 FL (80.0-100.0); MEAN CORPUSCULAR HEMOGLOBIN 28.2 PG (27.0-34.0); MEAN CORPUSCULAR HGB CONC 32.3 % (32.0-36.0); MONO % 6.3 % (0.0-8.0); NEUT % 73.4 % (16.0-70.0); PLATELET COUNT 175 TH/MM3 (150-450); RED BLOOD COUNT 5.05 MIL/MM3 (4.50-5.90); RED CELL DISTRIBUTION WIDTH 16.6 % (11.6-17.2)
[2017-03-23 19:00] LABS: BICARBONATE 26.1 MEQ/L (21.0-32.0); POTASSIUM 3.7 MEQ/L (3.5-5.1)
--- NOTE | 2017-03-23 19:19 | PD ---
HPI Chief Complaint: Altered Mental Status Time Seen by Provider: 17:04 Travel History International Travel<30 days: No Contact w/Intl Traveler<30days: No Traveled to known affect area: No History of Present Illness HPI 56-year-old male came to the emergency room with history of altered mental status. He was brought in by EMS. Patient is a end-stage renal renal failure with hemodialysis. As per EMS he missed his dialysis. Patient continued to be unresponsive but maintaining his respirations. Vital signs were otherwise stable. Patient is not giving me any history. PFSH Past Medical History Narrative Medical List of his past medical, surgical, social and family history was reviewed from the nursing note. Blood Disorders: No Heart Rhythm Problems: No Cancer: No Cardiovascular Problems: Yes High Cholesterol: No Chest Pain: No Congestive Heart Failure: No COPD: Yes Diabetes: Yes Dialysis: Yes (TUES THURS SAT) Diminished Hearing: No Endocrine: Yes Genitourinary: Yes (DIALYSIS tue, thur, sat) Headaches: Yes Hypertension: Yes Immune Disorder: No Implanted Vascular Access Dvce: Yes Kidney Stones: No Musculoskeletal: Yes Neurologic: Yes (neuropathy) Psychiatric: No Reproductive: No Respiratory: Yes (BRONCHITIS A CHILD) Immunizations Current: Yes Renal Failure: Yes (LEVEL 5) Tetanus Vaccination: Unknown Past Surgical History Arteriovenous Shunt: Yes (lue) Other Surgery: Yes (LT ARM FISTULA) Social History Tobacco Use: Yes Substance Use: No Allergies-Medications (Allergen,Severity, Reaction): Coded Allergies: No Known Allergies (Verified , 02/12/17) Comments No known drug allergies. Reported Meds & Prescriptions Reported Meds & Active Scripts Active Nepro with Carb Steady (Nutritional Supplements) 1 Liq Liq 1 Can PO HS Novolog Inj (Insulin Aspart) 1,000 Unit/10 Ml Vial 0 SQ DIRECTED Sliding Scale: 170-220: 2units. 221-270: 3units. 271-320: 4units. 321-370: 5units Lantus Solostar Pen Inj (Insulin Glargine) 300 Unit/3 Ml Pen 8-18 Units SQ BID 18units in AM/ 8units in evening Symbicort Inh (Budesonide/Formoterol Fumarate) 160-4.5 Mcg/Act Aero 2 Puff INH Q12HR Lyrica (Pregabalin) 75 Mg Cap 75 Mg PO DAILY Reported Gabapentin Unknown Strength Cap Unknown Dose PO TID Dialyvite Vitamin D 5000 (Cholecalciferol) 5,000 Unit Cap 5,000 Units PO DAILY Baclofen 10 Mg Tab 10 Mg PO TID PRN Atorvastatin (Atorvastatin Calcium) 40 Mg Tab 40 Mg PO HS Renvela (Sevelamer Carbonate) 800 Mg Tab 800 Mg PO DIRECTED 3 Tabs with meals, 2 tabs with snacks. Metoprolol Succinate ER 24 HR (Metoprolol Succinate) 25 Mg Tab 25 Mg PO DAILY Lisinopril 10 Mg Tab 10 Mg PO DAILY Narrative Medication List of his home medications reviewed from the nursing note. Review of Systems Except as stated in HPI: all other systems reviewed are Neg Physical Exam Narrative GENERAL: Unable to make it with the patient, nonverbal, eyes closed, no obvious distress SKIN: Focused skin assessment warm/dry. Right AV fistula. HEAD: Atraumatic. Normocephalic. EYES: Pupils equal and round. No scleral icterus. No injection or drainage. ENT: No nasal bleeding or discharge. Mucous membranes pink and moist. NECK: Trachea midline. No JVD. CARDIOVASCULAR: Regular rate and rhythm. No murmur appreciated. RESPIRATORY: No accessory muscle use. Clear to auscultation. Breath sounds equal bilaterally. GASTROINTESTINAL: Abdomen soft, non-tender, nondistended. Hepatic and splenic margins not palpable. MUSCULOSKELETAL: No obvious deformities. No clubbing. No cyanosis. No edema. NEUROLOGICAL: Awake and alert. No obvious cranial nerve deficits. Motor grossly within normal limits. Normal speech. PSYCHIATRIC: Appropriate mood and affect; insight and judgment normal. Data Data Last Documented VS Vital Signs Date Time Temp Pulse Resp B/P Pulse Ox O2 Delivery O2 Flow Rate FiO2 03/23/17 19:30 77 20 100 03/23/17 17:43 Room Air 03/23/17 17:01 97.8 196/87 Orders Electrocardiogram (03/23/17 17:16) Ammonia (03/23/17 17:16) Complete Blood Count With Diff (03/23/17 17:16) Creatine Kinase (Cpk) (03/23/17 17:16) Prothrombin Time / Inr (Pt) (03/23/17 17:16) Act Partial Throm Time (Ptt) (03/23/17 17:16) Troponin I (03/23/17 17:16) Ct Brain W/O Iv Contrast(Rout) (03/23/17 17:16) Blood Glucose (03/23/17 17:16) Ecg Monitoring (03/23/17 17:16) Iv Access Insert/Monitor (03/23/17 17:16) Oximetry (03/23/17 17:16) Sodium Chloride 0.9% Flush (Ns Flush) (03/23/17 17:30) Sodium Chlorid 0.9% 500 Ml Inj (Ns 500 M (03/23/17 17:30) Basic Metabolic Panel (Bmp) (03/23/17 17:27) CKMB (03/23/17 17:30) CKMB% (03/23/17 17:30) Labs Laboratory Tests Test 03/23/17 03/23/17 17:27 17:30 Sodium Level 137 MEQ/L Potassium Level 3.7 MEQ/L Chloride Level 97 MEQ/L Carbon Dioxide Level 26.1 MEQ/L Anion Gap 14 MEQ/L Blood Urea Nitrogen 37 MG/DL Creatinine 10.74 MG/DL Estimat Glomerular Filtration 6 ML/MIN Rate Random Glucose 137 MG/DL Calcium Level 10.0 MG/DL White Blood Count 10.0 TH/MM3 Red Blood Count 5.05 MIL/MM3 Hemoglobin 14.2 GM/DL Hematocrit 44.0 % Mean Corpuscular Volume 87.1 FL Mean Corpuscular Hemoglobin 28.2 PG Mean Corpuscular Hemoglobin 32.3 % Concent Red Cell Distribution Width 16.6 % Platelet Count 175 TH/MM3 Mean Platelet Volume 10.4 FL Neutrophils (%) (Auto) 73.4 % Lymphocytes (%) (Auto) 13.7 % Monocytes (%) (Auto) 6.3 % Eosinophils (%) (Auto) 5.7 % Basophils (%) (Auto) 0.9 % Neutrophils # (Auto) 7.3 TH/MM3 Lymphocytes # (Auto) 1.4 TH/MM3 Monocytes # (Auto) 0.6 TH/MM3 Eosinophils # (Auto) 0.6 TH/MM3 Basophils # (Auto) 0.1 TH/MM3 CBC Comment DIFF FINAL Differential Comment Prothrombin Time 10.7 SEC Prothromb Time International 1.0 RATIO Ratio Activated Partial 25.5 SEC Thromboplast Time Ammonia 28 MCMOL/L Total Creatine Kinase 1069 U/L Creatine Kinase MB 23.1 NG/ML Creatine Kinase MB % 2.2 % Troponin I 0.20 NG/ML MDM Medical Decision Making Medical Screen Exam Complete: Yes Emergency Medical Condition: Yes Medical Record Reviewed: Yes Interpretation(s) Twelve-lead EKG was reviewed by me. Normal sinus rhythm, normal axis, peaked T waves, LVH. Heart rate of 75 bpm. Differential Diagnosis Intracranial bleed, metabolic encephalopathy, electrolyte abnormality Narrative Course 7:[address] scan and blood tests were within normal limit. Patient continued to refuse chest x-ray. He sat up and said he wanted to get out of here. Given this I really think that patient's altered mental status is probably more of a psychosomatic. I will discharge him home. Procedures EKG Prior to Arrival: Yes Diagnosis Primary Impression: Psychosomatic disorder Additional Impressions: End stage renal disease Dependent on hemodialysis Referrals: Primary Care Physician Additional Instructions: Please be compliant with her dialysis. Follow-up with your primary care. Disposition: 01 DISCHARGE HOME Condition: Stable Kush Trimble MD Mar 23, 2017 19:19
[2017-03-23 20:04] LABS: CKMB 23.1 NG/ML (0.5-3.6)
--- NOTE | 2017-03-25 10:05 | EKG ---
Date Performed: 03/23/2017 Time Performed: 17:30:23 PTAGE: 56 years EKG: Sinus rhythm VOLTAGE CRITERIA FOR LVH NONSPECIFIC ST & T-WAVE ABNORMALITY ABNORMAL ECG INTERPRETATION BASED ON A DEFAULT AGE OF 40 YEARS NO PREVIOUS TRACING DOCTOR: Jonnie Montoya Interpretating Date/Time 03/25/2017 09:51:41
== END 2017-03-23 19:34 | disposition home or self-care (01) ==
LOC: NEPE 16:41
DX: F45.9 Somatoform disorder, unspecified (principal); I12.0 Hypertensive chronic kidney disease with stage 5 chronic kidney disease or end stage renal disease; R41.82 Altered mental status, unspecified; Z99.2 Dependence on renal dialysis; Z72.0 Tobacco use; E11.9 Type 2 diabetes mellitus without complications; G62.9 Polyneuropathy, unspecified; R94.31 Abnormal electrocardiogram [ECG] [EKG]
CPT/HCPCS: 70450; 80048; 82140; 82550; 82552; 84484; 85025; 85610; 85730; 93005; 99285; J7040

== ENCOUNTER 2017-06-26 14:18 | Inpatient (IN) | payer MEDICARE, MEDICAID ==
[2017-06-26] VITALS (8 sets, daily range): BP systolic 153–180; BP diastolic 72–95; PULSE 94–107; RESP 16–20; TEMP 97.9–99.1; O2SAT 91–98
[~2017-06-26] VITALS: Ht 177.8 cm; Wt 69.7 kg
[~2017-06-26 14:18] MED LIST changes: -BACL10TA PO; -DIALCAP PO; +DIALTAB; +GABA100C4 PO; -GABA300C5 PO; +LYRI50CA PO; -LYRI75CA PO; -NEPRLIQ3 PO; -SEVEL800 PO; -SYMB160A INH; +[UNRECOGNIZED DRUG - CODE] PO
[2017-06-26] MEDS ORDERED: IODIXANOL 320 MG/ML 10 ML VIAL (for Rad CT) IV ONE (14:19)
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
[2017-06-26] MEDS ORDERED: SODIUM CHLORIDE 0.9% FLUSH 10 ML FLUSH IVF PRN (15:30)
[2017-06-26] MEDS ORDERED: RESP: ALBUTEROL 2.5 MG/IPRATROPIUM 0.5 MG NEB (SCH) INH ONE ×2 (15:30→19:15)
[2017-06-26 16:10] LABS: AUTOMATED NEUTROPHIL # 6.3 TH/MM3 (1.8-7.7); BASOPHIL % 0.5 % (0.0-2.0); EOSINOPHIL % 0.1 % (0.0-4.0); HEMATOCRIT 38.6 % (39.0-51.0); HEMO FLAGS DIFF FINAL; LYMPH % 7.5 % (9.0-44.0); LYMPHOCYTE # 0.6 TH/MM3 (1.0-4.8); MEAN CELL VOLUME 89.9 FL (80.0-100.0); MEAN CORPUSCULAR HEMOGLOBIN 28.7 PG (27.0-34.0); MONO % 9.4 % (0.0-8.0); NEUT % 82.5 % (16.0-70.0); PLATELET COUNT 153 TH/MM3 (150-450); RED BLOOD COUNT 4.29 MIL/MM3 (4.50-5.90); RED CELL DISTRIBUTION WIDTH 15.9 % (11.6-17.2); WHITE BLOOD COUNT 7.6 TH/MM3 (4.0-11.0)
--- NOTE | 2017-06-26 16:17 | RADRPT ---
EXAM DATE/TIME: 06/26/2017 15:48 [facility] COMPARISON: CHEST SINGLE AP, February 19, 2015, 14:43. CHEST SINGLE AP, January 07, 2017, 12:26. INDICATIONS : Shortness of breath. MEDICAL HISTORY : None. SURGICAL HISTORY : None. ENCOUNTER: Initial ACUITY: 3 days PAIN SCORE: 0/10 LOCATION: Bilateral chest FINDINGS: A single view of the chest demonstrates the lungs to be symmetrically aerated without evidence of mas s, consolidative infiltrate or effusion. Mild streaky opacities are present in the perihilar regions . The heart size is at the upper limits of normal. Osseous structures are intact. There are multiple overlying electrocardiogram leads. CONCLUSION: Mild streaky opacity the perihilar regions which could indicate early pulmonary edema. Albin West MD on June 26, 2017 at 16:13 Board Certified Radiologist. This report was verified electronically.
[2017-06-26 16:23] LABS: ANION GAP 14 MEQ/L (5-15); AST (GOT) 67 U/L (15-37); BLOOD UREA NITROGEN 72 MG/DL (7-18); CHLORIDE 103 MEQ/L (98-107); GLOMERULAR FILTRATION RATE 4 ML/MIN (>89); POTASSIUM 5.1 MEQ/L (3.5-5.1); SODIUM (NA) 140 MEQ/L (136-145)
[2017-06-26 16:26] LABS: ALKALINE PHOSPHATASE 103 U/L (45-117); ALT (GPT) 56 U/L (12-78); TOTAL BILIRUBIN ADULT 0.6 MG/DL (0.2-1.0)
--- NOTE | 2017-06-26 16:36 | RADRPT ---
EXAM DATE/TIME: 06/26/2017 16:17 [facility] COMPARISON: No previous studies available for comparison. INDICATIONS : Left Foot Inflammation at the 2nd Digit. MEDICAL HISTORY : Diabetes SURGICAL HISTORY : ENCOUNTER: Subsequent ACUITY: 1 day PAIN SCORE: 0/10 LOCATION: Left 2nd Digit FINDINGS: Osseous structures are intact without evidence for acute bony fracture or focal bony destruction. Radha nt spaces are maintained. No significant subcutaneous emphysema or radiopaque foreign body. Extensive mass or calcifications throughout the foot. CONCLUSION: 1. No radiographic evidence for fracture or osteomyelitis, as questioned. Phani Vasquez MD on June 26, 2017 at 16:33 Board Certified Radiologist. This report was verified electronically.
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
[2017-06-26] MEDS ORDERED: SODIUM CHLOR 0.9% 1000 ML INJ 1,000 ML OTHER PRN ×2 (16:50)
[2017-06-26] MEDS ORDERED: SODIUM CHLOR 0.9% 1000 ML INJ 1,000 ML IV PRN (16:50)
[2017-06-26] MEDS ORDERED: HEPARIN SODIUM - IV 10,000 UNITS/10 ML VIAL IVF PRN (17:00)
[2017-06-26] MEDS ORDERED: diphenhydrAMINE HCL 25 MG CAP PO PRN (17:00)
[2017-06-26] MEDS ORDERED: SODIUM CHLORIDE 0.9% FLUSH 10 ML FLUSH IV FLUSH PRN ×3 (17:00→23:00)
[2017-06-26] MEDS ORDERED: MANNITOL 12.5 GM/50 ML VIAL IV PRN (17:00)
[2017-06-26] MEDS ORDERED: cloNIDine HCL 0.1 MG TAB PO PRN (17:00)
[2017-06-26] MEDS ORDERED: GENTAMICIN SULFATE (DIALYSIS USE ONLY) 20 MG/2 ML VIAL IV PRN (17:00)
[2017-06-26] MEDS ORDERED: ONDANSETRON HCL 4 MG/2 ML VIAL IV PRN (17:00)
[2017-06-26] MEDS ORDERED: NITROGLYCERIN 0.4 MG SL 25 TABS/BTL SL PRN (17:00)
[2017-06-26] MEDS ORDERED: ACETAMINOPHEN 325 MG TAB PO PRN (17:00)
[2017-06-26] MEDS ORDERED: ALBUMIN HUMAN 25% 25 GM/100 ML BAGP IV PRN (17:00)
[2017-06-26] MEDS ORDERED: HEPARIN SODIUM - IV 10,000 UNITS/10 ML VIAL PRN (17:00)
[2017-06-26] MEDS: GELATIN 12 MM/7 MM FOAM TOP PRN (19:02)
[2017-06-26] MEDS ORDERED: CLINDAMYCIN INJ 600 MG in SODIUM CHLORIDE 0.9% INJ 100 ML IV ONE (21:15)
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
[2017-06-26] MEDS: SODIUM CHLORIDE 0.9% FLUSH 10 ML FLUSH IV FLUSH SCH (22:42)
[2017-06-26] MEDS ORDERED: NALOXONE HCL 0.4 MG/ML AMP IV PRN (23:00)
[2017-06-26] MEDS ORDERED: SODIUM CHLORIDE 0.9% FLUSH 10 ML FLUSH IV FLUSH SCH (23:00)
[2017-06-26] MEDS ORDERED: DEXTROSE 50% IN WATER 50 ML VIAL(D50) IV PRN (23:00)
[2017-06-26] MEDS ORDERED: RESP: ALBUTEROL 2.5 MG/3 ML NEB (PRN) INH (23:00)
[2017-06-26] MEDS ORDERED: DEXTROSE 50% IN WATER 50 ML SYRINGE ONE (23:01)
[2017-06-26] MEDS: ATORVASTATIN 40 MG TAB PO SCH (23:50)
[2017-06-26] MEDS: ENOXAPARIN SODIUM 30 MG/0.3 ML SYRINGE SQ SCH (23:51)
[2017-06-27] VITALS (7 sets, daily range): BP systolic 139–151; BP diastolic 71–82; PULSE 84–96; RESP 16–18; TEMP 97.6–98.4; O2SAT 92–100
[2017-06-27] MEDS: RESP: ALBUTEROL 2.5 MG/IPRATROPIUM 0.5 MG NEB (SCH) INH ×6 (00:41→20:12)
[2017-06-27] MEDS: METOPROLOL SUCCINATE 25 MG EXTENDED RELEASE TAB PO SCH ×3 (04:35→08:24)
[2017-06-27] MEDS: SODIUM CHLORIDE 0.9% FLUSH 10 ML FLUSH IV FLUSH SCH ×2 (08:22→22:06)
[2017-06-27] MEDS: DOCUSATE SODIUM 50 MG/SENNA 8.6 MG TAB PO SCH ×2 (08:22→21:00)
[2017-06-27] MEDS: INSULIN ASPART SUPPLEMENTAL SCALE SQ SCH ×4 (08:22→20:49)
--- NOTE | 2017-06-27 09:22 | RADRPT ---
EXAM DATE/TIME: 06/26/2017 17:31 [facility] COMPARISON: No previous studies available for comparison. INDICATIONS : Non healing sores on both feet. IV CONTRAST: 100 cc Visipaque (iodixanol) IV RADIATION DOSE: 1.61 CTDIvol (mGy) MEDICAL HISTORY : Hypertension. Chronic obstructive pulmonary disease. Renal failure, chronic. SURGICAL HISTORY : AV SHUNT ENCOUNTER: Initial ACUITY: 3 days PAIN SCALE: 0/10 LOCATION: RUN OFF TECHNIQUE: Volumetric scanning was performed using a multi-row detector CT scanner. The data was post processed with a variety of visualization algorithms including full volume maximum intensity projection, multi -planar sliding thin slab reformation, curved planar reformation, and surface rendering techniques. Using automated exposure control and adjustment of the mA and/or kV according to patient size, radiat ion dose was kept as low as reasonably achievable to obtain optimal diagnostic quality images. DICO M format image data is available electronically for review and comparison. FINDINGS: Examination is limited in the abdomen do to patient motion. AORTA: Mild arthroscopic calcifications of the infrarenal abdominal aorta without significant flow-limiting stenosis or aneurysm. VISCERAL ARTERIES: Single bilateral renal arteries which are widely patent. Celiac, SMA, and AVINASH are widely patent. RIGHT LEG: INFLOW: Mild calcified plaque in the origin of the common iliac artery without significant flow-limiting sten osis. Iliac arteries are otherwise patent. Common femoral artery is patent. OUTFLOW: Profunda is patent. SFA is diffusely calcified without significant flow-limiting stenosis. Eccentric calcified plaque in the left knee popliteal artery near the knee joint with resultant mild to moderat e focal stenosis. Below knee popliteal artery is patent. RUNOFF: Heavily calcified runoff vessels limiting evaluation. Anterior tibial artery is small in caliber and not visualized beyond the mid to distal calf. The posterior tibial artery appears occluded in the mid calf. The peroneal artery is not visualized beyond the proximal to mid calf. LEFT LEG: INFLOW: Mild calcified plaque at the origin of the left common iliac artery. Iliac arteries are otherwise pat ent. Common femoral artery is patent. OUTFLOW: Profunda is patent. Diffusely calcified SFA with focal mild stenosis distally near the adductor canal . Popliteal artery is patent. RUNOFF: Heavily calcified runoff vessels limiting evaluation. Anterior tibial artery is small in caliber and not visualized on the mid to distal calf.. The posterior tibial artery appears occluded in the midcal f. Peroneal artery is not visualized on the proximal to mid calf. GENERAL FINDINGS: Visualized lung bases are clear. Evaluation of the abdominal viscera is limited due to arterial phase technique. Liver, spleen, adrenal glands, gallbladder, and pancreas are grossly unremarkable. Kidney s demonstrate symmetrical enhancement without evidence for radiopaque renal calculi or hydronephrosis . No significant renal mass. The bowel appears unremarkable without evidence for obstruction. No sign ificant free fluid or drainable fluid collection. Bladder is mildly distended but otherwise unremarkable. Prostate and seminal vesicles are within norm al limits. CONCLUSION: 1. No significant aortic occlusive disease or inflow iliac stenosis. 2. No significant outflow stenosis. 3. Heavily calcified bilateral runoff vessels which limits evaluation. Very diminutive flow beyond th e mid to distal calfs bilaterally. Phani Vasquez MD on June 27, 2017 at 8:43 Board Certified Radiologist. This report was verified electronically.
--- NOTE | 2017-06-27 12:00 | HHI.NPPN ---
Subjective General Problems: Anemia, COPD, Hypertension Renal Failure: Chronic, End Stage Renal Disease Interval History Dialyzed yesterday. No new concerns today. (Jasmyne Bee) Review of Systems Skin Skin: Lesions, Ulcers Skin Remarks toes bilaterally (Jasmyne Bee) Objective Data Data Vital Signs Date Time Temp Pulse Resp B/P (MAP) Pulse Ox O2 Delivery O2 Flow Rate FiO2 06/27/17 10:23 91 06/27/17 10:01 97.8 87 18 147/82 (103) 97 06/27/17 07:49 95 21 06/27/17 04:37 98.4 91 18 139/73 (95) 100 06/26/17 23:43 99.1 100 18 162/85 (110) 98 06/26/17 23:08 06/26/17 22:09 94 16 154/79 (104) 91 Room Air 06/26/17 20:48 97 18 153/72 (99) 96 Nasal Cannula 2.00 06/26/17 20:14 94 06/26/17 16:10 107 20 179/94 (122) 96 Room Air 06/26/17 15:34 93 21 06/26/17 15:31 18 97 Room Air 06/26/17 14:43 94 18 94 Room Air 06/26/17 14:36 97.9 94 18 180/95 (123) 94 (Jasmyne Bee) -: 06/26/17 1500 06/26/17 1500 Imaging Last Impressions Chest X-Ray 06/26/17 1517 Signed Impressions: Service Date/Time: Monday, June 26, 2017 15:48 - CONCLUSION: Mild streaky opacity the perihilar regions which could indicate early pulmonary edema. Albin West MD Foot X-Ray 06/26/17 0000 Signed Impressions: Service Date/Time: Monday, June 26, 2017 16:17 - CONCLUSION: 1. No radiographic evidence for fracture or osteomyelitis, as questioned. Phani Vasquez MD Aorta w/Runoff CTA 06/26/17 0000 Signed Impressions: Service Date/Time: Monday, June 26, 2017 17:31 - CONCLUSION: 1. No significant aortic occlusive disease or inflow iliac stenosis. 2. No significant outflow stenosis. 3. Heavily calcified bilateral runoff vessels which limits evaluation. Very diminutive flow beyond the mid to distal calfs bilaterally. Phani Vasquez MD (Jasmyne Bee) Physical Exam General Appearance: Well Developed, No Acute Distress, Comfortable (Jasmyne Bee. STEEL BOX TOE INSERTER) Throat Throat Exam: Oral Mucosa [place] & Moist (Jasmyne Bee STEEL BOX TOE INSERTER) Pulmonary Resp Exam: Breath Sounds Equal, No Distress, Rhonchi (Jasmyne Bee STEEL BOX TOE INSERTER) Cardiology CV Exam: Regular, Normal Sinus Rhythm (Jasmyne Bee STEEL BOX TOE INSERTER) Gastrointestinal/Abdomen GI Exam: Soft, Non-Tender (Jasmyne Bee STEEL BOX TOE INSERTER) Musculoskeletal MS Exam: Normal Gait, Normal Tone, Good Strength (Jasmyne Bee) Integumentary Skin Exam: Warm, Dry Skin Remarks left 2nd digit, darkened open area right 1st digit, tip of toe with ulcer (Jasmyne BeeP) Extremeties Extremities Exam: No Edema Extremeties Remarks weak pedal pulses (Jasmyne BeeP) Neurologic Neuro Exam: Alert, Awake, Oriented, Speech Clear, Moving All Extremities (Jasmyne BeeP) Psychiatric Psych Exam: Appropriate Responses (Jasmyne Bee) Assessment/Plan Discussed Condition With: Patient Assessment Summary: Anemia of CKD, Hypertension, Diabetes Mellitus, End Stage Renal Disease Problem List: (1) ESRD (end stage renal disease) ICD Codes: N18.6 - End-stage renal disease Status: Acute Plan: 3L UF yesterday; we will dialyze him today to return to MWF HD schedule Chest xray showing early pulmonary edema follow fluid status, avoid IVF He has functioning AVF for dialysis use Avoid gadolinium High protein diet encouraged (2) DM (diabetes mellitus) ICD Codes: E11.9 - Type 2 diabetes mellitus without complications Status: Acute Plan: When glucose stabilizes, resume home insulin therapy Goal 140-180 mg/dL. (3) HTN (hypertension) ICD Codes: I10 - Essential (primary) hypertension Status: Chronic Plan: Continue home medications Permanent Comment: Dr. Rose - will do cardiac clearance. Last Edited By : Rosalio Cruz on May 10, 2015 14:46 (4) Bone metabolism disorder ICD Codes: E88.9 - Metabolic disorder, unspecified; M90.80 - Osteopathy in diseases classified elsewhere, unspecified site Status: Acute Plan: Phosphorus level is in process Resume binder therapy if needed. (5) Gangrene ICD Codes: I96 - Gangrene, not elsewhere classified Plan: Appears to have dry gangrene of left 2nd toe CTA with runoff taken yesterday that shows: 1. No significant aortic occlusive disease or inflow iliac stenosis. 2. No significant outflow stenosis. 3. Heavily calcified bilateral runoff vessels which limits evaluation. Very diminutive flow beyond the mid to distal calfs bilaterally. podiatry has been consulted (Jasmyne Bee) Plan patient was seen and examined. Agree with above assessment and plan. (Maurice Schultz MD) Problem Qualifiers (1) DM (diabetes mellitus): Qualified Codes: E10.8 - Type 1 diabetes mellitus with unspecified complications Jasmyne Bee Jun 27, 2017 12:00 Maurice Schultz MD Jun 27, 2017 18:53
[2017-06-27] MEDS: GELATIN 12 MM/7 MM FOAM TOP PRN (13:05)
--- NOTE | 2017-06-27 15:28 | HHI.FPPN ---
Subjective Remarks No acute events overnight. Patient is working with the physical therapist when we arrived at the patient's room. He is walking slowly with assistive devices. He reports that he has numb feet. He otherwise feels better and has no complaints. Objective Vitals Vital Signs Date Time Temp Pulse Resp B/P (MAP) Pulse Ox O2 Delivery O2 Flow Rate FiO2 06/27/17 10:23 91 06/27/17 10:01 97.8 87 18 147/82 (103) 97 06/27/17 07:49 95 21 06/27/17 04:37 98.4 91 18 139/73 (95) 100 06/26/17 23:43 99.1 100 18 162/85 (110) 98 06/26/17 23:08 06/26/17 22:09 94 16 154/79 (104) 91 Room Air 06/26/17 20:48 97 18 153/72 (99) 96 Nasal Cannula 2.00 06/26/17 20:14 94 06/26/17 16:10 107 20 179/94 (122) 96 Room Air 06/26/17 15:34 93 21 06/26/17 15:31 18 97 Room Air I/O 06/26/17 06/26/17 06/26/17 06/27/17 06/27/17 06/27/17 07:00 15:00 23:00 07:00 15:00 23:00 Intake Total 100 ml Output Total 3000 ml 4100 ml Balance -2900 ml -4100 ml Intake IV Total 100 ml Output Hemodialysis 3000 ml 4100 ml # Voids 0 # Bowel Movements 0 Result Diagram: 06/26/17 1500 06/26/17 1500 Imaging Last Impressions Chest X-Ray 06/26/17 1517 Signed Impressions: Service Date/Time: Monday, June 26, 2017 15:48 - CONCLUSION: Mild streaky opacity the perihilar regions which could indicate early pulmonary edema. Albin West MD Foot X-Ray 06/26/17 0000 Signed Impressions: Service Date/Time: Monday, June 26, 2017 16:17 - CONCLUSION: 1. No radiographic evidence for fracture or osteomyelitis, as questioned. Phani Vasquez MD Aorta w/Runoff CTA 06/26/17 0000 Signed Impressions: Service Date/Time: Monday, June 26, 2017 17:31 - CONCLUSION: 1. No significant aortic occlusive disease or inflow iliac stenosis. 2. No significant outflow stenosis. 3. Heavily calcified bilateral runoff vessels which limits evaluation. Very diminutive flow beyond the mid to distal calfs bilaterally. Phani Vasquez MD Objective Remarks GENERAL: Thin 56 yr old man, lying in bed, in NAD, pleasant SKIN: necrosis of tip of left second toe with proximal erythema, no erythema, no warmth, no swelling, necrosis vs. blood blister on tip of right big toe EYES: Pupils equal round and reactive. Extraocular motions intact. No scleral icterus. No injection or drainage. ENT: Nose without bleeding, purulent drainage or septal hematoma. Throat without erythema, tonsillar hypertrophy or exudate. Uvula midline. Airway patent. NECK: Trachea midline. No JVD or lymphadenopathy. Supple, nontender, no meningeal signs. CARDIOVASCULAR: RRR, 2/6 ejection murmur radiating to the axilla RESPIRATORY: mild wheezes throughout GASTROINTESTINAL: Abdomen soft, non-tender, nondistended. EXTREMITIES: BL leg pedal pulses (DP and PT) weak, as well as BL popliteal pulses weak. No pitting edema. No calf tenderness. NEUROLOGICAL: Awake and alert. Decrease sensation in b/l ankle to b/l toes. At baseline, patient uses cane to walk. A/P Assessment and Plan 56 yr old w/ ESRD on dialysis, DM, HTN, and COPD, admitted for hypoglycemia and necrosis of second left toe Discharge Planning Pending workup of necrotic toe Problem List: (1) Gangrene ICD Codes: I96 - Gangrene, not elsewhere classified Plan: 1 month hx of worsening ischemic ulcer of left second toe in context of DM with neuropathy and CTA showing Very diminutive flow beyond the mid to distal calfs bilaterally. -foot x-ray, no radiographic evidence for fracture or osteomyelitis, may need foot MRI -CRP elevated 5.60, ESR elevated 43, no leukocytosis -CBC ordered for the AM -s/p clindamycin for suspected cellulitis, did not continue abx based on foot examination -Podiatry consulted, will appreciate recs -Vascular surgery consulted, will appreciate recommendations (2) Hypoglycemia ICD Codes: E16.2 - Hypoglycemia, unspecified Status: Resolved Plan: Patient reports being compliant with his medications and checking his sugars. Took 20 units of insulin the morning of admission w/o eating. Last hospitalizations for hypoglycemia in February 2017. -CMP- random glucose 66 upon ED admission -Bedside glucose at 23:00 was 31, patient given D50, glucose at 23:56 was 98 -Low NovoLog Sliding Scale (3) ESRD on hemodialysis ICD Codes: N18.6 - End stage renal disease; Z99.2 - Dependence on renal dialysis Status: Chronic Plan: Patient receives dialysis on ,,. Patient reports last dialysis treatment was on June 23. -BUN 72, Cr 16.62 -Nephrology consulted, appreciated recs -s/p dialysis upon admission, 3 liters taken off -repeat CMP, phosphorus level ordered for the AM (4) COPD (chronic obstructive pulmonary disease) ICD Codes: J44.9 - Chronic obstructive pulmonary disease, unspecified Status: Chronic Plan: Wheezes throughout, improved -s/p 2 L O2 NC in ED, weaned to room air -CXR in ED, mild streaky opacity in perihilar regions could indicated early pulmonary edema -Duonebs q4h -Albuterol Neb PRN (5) HTN (hypertension) ICD Codes: I10 - Essential (primary) hypertension Status: Chronic Plan: Patient reports no current use of HTN meds. Patient was on metoprolol and lisinopril per chart review. -Metoprolol 25 mg PO daily Permanent Comment: Dr. Rose - will do cardiac clearance. Last Edited By : Rosalio Cruz on May 10, 2015 14:46 (6) Nutrition, metabolism, and development symptoms ICD Codes: R63.8 - Other symptoms and signs concerning food and fluid intake Plan: Fluids: none, avoid per nephro Diet: Diabetic, renal DVT ppx: SCDs b/l, lovenox daily (7) Cardiac murmur, unspecified ICD Codes: R01.1 - Cardiac murmur, unspecified Plan: 2/6 ejection murmur on exam. Patient no longer c/o SOB -EKG, sinus rhythm -CXR- mild streaky opacity in perihilar regions could indicated early pulmonary edema Albin Shetty MD R2 Jun 27, 2017 15:28
[2017-06-27] MEDS ORDERED: DULO1CAP2 PO (16:07)
[2017-06-27] MEDS ORDERED: SYMB160A INH (16:08)
--- NOTE | 2017-06-27 16:10 | ECHRPT ---
Indication: SOB CONCLUSIONS Normal left ventricular size. Mild to moderate concentric left ventricular hypertrophy. The left ventricular systolic function is low normal with an estimated ejection fraction in the rang e of 50- 55%. Normal regional wall motion. Mild mitral annular calcification is present. Trace to mild mitral regurgitation. Aortic valve sclerosis is present. Trace aortic valve regurgitation. There is trace tricuspid valve regurgitation. The estimated pulmonary arterial pressure is 31 mmHg. BP: / HR: Rhythm: Sinus MEASUREMENTS (Male / Female) Normal Values Technical Quality:Good 2D ECHO LV Diastolic Diameter PLAX 5.1 cm 4.2 - 5.9 / 3.9 - 5.3 cm LV Systolic Diameter PLAX 4.1 cm IVS Diastolic Thickness 1.5 cm 0.6 - 1.0 / 0.6 - 0.9 cm LVPW Diastolic Thickness 0.9 cm 0.6 - 1.0 / 0.6 - 0.9 cm LV Relative Wall Thickness 0.5 RV Internal Dim ED PLAX 2.5 cm LA Systolic Diameter LX 3.2 cm 3.0 - 4.0 / 2.7 - 3.8 cm M-MODE Aortic Root Diameter MM 3.2 cm AV Cusp Separation MM 1.9 cm DOPPLER MR Peak Velocity 428.0 cm/s MR Peak Gradient 73.3 mmHg TR Peak Velocity 227.0 cm/s TR Peak Gradient 20.6 mmHg FINDINGS LEFT VENTRICLE Normal left ventricular size. Mild to moderate concentric left ventricular hypertrophy. The left ventricular systolic function is low normal with an estimated ejection fraction in the rang e of 50- 55%. Normal regional wall motion. RIGHT VENTRICLE Normal right ventricular size and systolic function. LEFT ATRIUM The left atrial size is normal. RIGHT ATRIUM The right atrial size is normal. ATRIAL SEPTUM Normal atrial septal thickness without atrial level shunting by limited color doppler interrogation. AORTA The aortic root and proximal ascending aorta are normal in size on limited imaging. MITRAL VALVE Mild mitral annular calcification is present. Trace to mild mitral regurgitation. AORTIC VALVE Aortic valve sclerosis is present. Trace aortic valve regurgitation. TRICUSPID VALVE There is trace tricuspid valve regurgitation. The estimated pulmonary arterial pressure is 31 mmHg. PULMONARY VALVE The pulmonary valve is not well visualized. VESSELS The inferior vena cava is normal in size. PERICARDIUM No pericardial effusion. Chris Heaton MD (Electronically Signed) Final Date:27 June 2017 16:09
[2017-06-27] MEDS ORDERED: VITA100036 PO (16:13)
[2017-06-27] MEDS ORDERED: DIAL800T3 PO (16:13)
[2017-06-27] MEDS: NICOTINE 14 MG/24 HR PATCH T-DERMAL SCH (17:30)
[2017-06-27 18:55] LABS: AUTOMATED NEUTROPHIL # 3.2 TH/MM3 (1.8-7.7); BASOPHIL % 0.7 % (0.0-2.0); EOSINOPHIL # 0.4 TH/MM3 (0-0.4); EOSINOPHIL % 6.5 % (0.0-4.0); HEMATOCRIT 38.3 % (39.0-51.0); HEMO FLAGS DIFF FINAL; LYMPHOCYTE # 1.3 TH/MM3 (1.0-4.8); MEAN CELL VOLUME 88.5 FL (80.0-100.0); MEAN CORPUSCULAR HEMOGLOBIN 29.1 PG (27.0-34.0); MEAN CORPUSCULAR HGB CONC 32.9 % (32.0-36.0); NEUT % 57.8 % (16.0-70.0); PLATELET COUNT 133 TH/MM3 (150-450); RED BLOOD COUNT 4.33 MIL/MM3 (4.50-5.90); RED CELL DISTRIBUTION WIDTH 15.8 % (11.6-17.2); WHITE BLOOD COUNT 5.6 TH/MM3 (4.0-11.0)
[2017-06-27 19:07] LABS: ALKALINE PHOSPHATASE 161 U/L (45-117); ALT (GPT) 55 U/L (12-78); ANION GAP 13 MEQ/L (5-15); AST (GOT) 69 U/L (15-37); BLOOD UREA NITROGEN 41 MG/DL (7-18); CHLORIDE 95 MEQ/L (98-107); GLOMERULAR FILTRATION RATE 7 ML/MIN (>89); POTASSIUM 4.1 MEQ/L (3.5-5.1); SODIUM (NA) 135 MEQ/L (136-145); TOTAL BILIRUBIN ADULT 0.8 MG/DL (0.2-1.0)
[2017-06-27] MEDS: REMOVE OLD PATCH T-DERMAL SCH (21:00)
--- NOTE | 2017-06-27 21:47 | EKG ---
Date Performed: 06/26/2017 Time Performed: 15:42:58 PTAGE: 56 years EKG: Sinus rhythm POSSIBLE LEFT ATRIAL ENLARGEMENT POSSIBLE RIGHT VENTRICULAR CONDUCTION DELAY SEPTAL MYOCARDIAL INFAR CTION ABNORMAL ECG PREVIOUS TRACING : 03/23/2017 17.30 Compared to prior tracing no significant change DOCTOR: Amrit Hanley Interpretating Date/Time 06/27/2017 21:46:18
[2017-06-27] MEDS: ENOXAPARIN SODIUM 30 MG/0.3 ML SYRINGE SQ SCH (22:05)
[2017-06-27] MEDS: ATORVASTATIN 40 MG TAB PO SCH (22:05)
[2017-06-27] MEDS ORDERED: INSULIN ASPART 1,000 UNITS/10 ML VIAL SQ ONE (22:15)
[2017-06-28] VITALS (9 sets, daily range): BP systolic 101–152; BP diastolic 56–81; PULSE 56–90; RESP 18–20; TEMP 97.7–98.6; O2SAT 93–96
[2017-06-28] MEDS: RESP: ALBUTEROL 2.5 MG/IPRATROPIUM 0.5 MG NEB (SCH) INH ×6 (00:10→20:00)
[2017-06-28 01:27] LABS: BICARBONATE 29.2 MEQ/L (21.0-32.0); POTASSIUM 4.1 MEQ/L (3.5-5.1)
[2017-06-28] MEDS ORDERED: INSULIN DETEMIR 100 UNITS/ML VIAL SQ ONE (02:15)
[2017-06-28] MEDS: INSULIN ASPART SUPPLEMENTAL SCALE SQ SCH ×4 (08:00→21:00)
[2017-06-28] MEDS: NICOTINE 14 MG/24 HR PATCH T-DERMAL SCH (08:54)
[2017-06-28] MEDS: SODIUM CHLORIDE 0.9% FLUSH 10 ML FLUSH IV FLUSH SCH ×2 (08:55→22:30)
[2017-06-28] MEDS: METOPROLOL SUCCINATE 25 MG EXTENDED RELEASE TAB PO SCH (08:55)
[2017-06-28] MEDS: DOCUSATE SODIUM 50 MG/SENNA 8.6 MG TAB PO SCH ×2 (08:55→22:30)
[2017-06-28] MEDS: INSULIN DETEMIR 100 UNITS/ML VIAL SQ SCH (09:00)
--- NOTE | 2017-06-28 11:05 | HHI.NPPN ---
Subjective General Problems: Anemia, COPD, Hypertension Renal Failure: Chronic, End Stage Renal Disease Interval History Dialyzed without incident yesterday. No new developments. (Jasmyne Bee) Review of Systems Skin Skin: Lesions, Ulcers Skin Remarks toes bilaterally (Jasmyne Bee) Objective Data Data Vital Signs Date Time Temp Pulse Resp B/P (MAP) Pulse Ox O2 Delivery O2 Flow Rate FiO2 06/28/17 08:32 98.1 85 20 146/68 (94) 94 06/28/17 07:38 93 21 06/28/17 04:00 97.8 82 18 101/56 (71) 95 06/28/17 00:00 97.7 56 18 152/75 (100) 96 06/28/17 00:00 98.6 84 18 117/56 (76) 94 06/27/17 20:54 98.3 96 16 151/72 (98) 98 06/27/17 20:13 92 06/27/17 17:14 97.6 84 18 147/71 (96) 96 (Jasmyne Bee) -: 06/27/17 1225 06/27/17 2357 Imaging Last 72 hours Impressions Chest X-Ray 06/26/17 1517 Signed Impressions: Service Date/Time: Monday, June 26, 2017 15:48 - CONCLUSION: Mild streaky opacity the perihilar regions which could indicate early pulmonary edema. Albin West MD Foot X-Ray 06/26/17 0000 Signed Impressions: Service Date/Time: Monday, June 26, 2017 16:17 - CONCLUSION: 1. No radiographic evidence for fracture or osteomyelitis, as questioned. Phani Vasquez MD Aorta w/Runoff CTA 06/26/17 0000 Signed Impressions: Service Date/Time: Monday, June 26, 2017 17:31 - CONCLUSION: 1. No significant aortic occlusive disease or inflow iliac stenosis. 2. No significant outflow stenosis. 3. Heavily calcified bilateral runoff vessels which limits evaluation. Very diminutive flow beyond the mid to distal calfs bilaterally. Phani Vasquez MD (Jasmyne Bee) Physical Exam General Appearance: Well Developed, Well Nourished, No Acute Distress, Comfortable (Jasmyne Bee) Throat Throat Exam: Oral Mucosa [place] & Moist (Jasmyne Bee) Pulmonary Resp Exam: Breath Sounds Equal, No Distress, Rhonchi (Jasmyne Bee) Cardiology CV Exam: Regular, Normal Sinus Rhythm (Jasmyne Bee) Gastrointestinal/Abdomen GI Exam: Soft, Non-Tender (Jasmyne Bee) Musculoskeletal MS Exam: Joints Intact, Normal Gait, Normal Tone, Good Strength (Jasmyne Bee) Integumentary Skin Exam: Warm, Dry Skin Remarks left 2nd digit, darkened open area right 1st digit, tip of toe with ulcer (Jasmyne Bee) Extremeties Extremities Exam: No Edema Extremeties Remarks weak pedal pulses (Jasmyne Bee) Neurologic Neuro Exam: Alert, Awake, Oriented, Speech Clear, Moving All Extremities (Jasmyne Bee) Psychiatric Psych Exam: Appropriate Responses (Jasmyne Bee) Assessment/Plan Discussed Condition With: Patient Assessment Summary: Anemia of CKD, Hypertension, Diabetes Mellitus, End Stage Renal Disease Problem List: (1) ESRD (end stage renal disease) ICD Codes: N18.6 - End-stage renal disease Status: Acute Plan: Continue MWF HD per outpatient schedule 3L UF yesterday Stable from renal perspective Obtain intermittent renal panel follow fluid status, avoid IVF He has functioning AVF for dialysis use Avoid gadolinium High protein diet encouraged (2) DM (diabetes mellitus) ICD Codes: E11.9 - Type 2 diabetes mellitus without complications Status: Acute Plan: Continue insulin therapy if needed His glucose was in 500s yesterday evening, low this morning Glucose goal 140-180 mg/dL. (3) HTN (hypertension) ICD Codes: I10 - Essential (primary) hypertension Status: Chronic Plan: Continue home medications Echo taken, EF 50-55%, systolic dysfunction Permanent Comment: Dr. Rose - will do cardiac clearance. Last Edited By : Rosalio Cruz on May 10, 2015 14:46 (4) Bone metabolism disorder ICD Codes: E88.9 - Metabolic disorder, unspecified; M90.80 - Osteopathy in diseases classified elsewhere, unspecified site Status: Acute Plan: Phosphorus level elevated Start Renvela with meals (5) Gangrene ICD Codes: I96 - Gangrene, not elsewhere classified Plan: Appears to have dry gangrene of left 2nd toe CTA with runoff taken yesterday that shows: 1. No significant aortic occlusive disease or inflow iliac stenosis. 2. No significant outflow stenosis. 3. Heavily calcified bilateral runoff vessels which limits evaluation. Very diminutive flow beyond the mid to distal calfs bilaterally. podiatry and vascular have been consulted for their opinion (Jasmyne Bee) Plan patient was seen and examined. Agree with above assessment and plan. (Maurice Schultz MD) Problem Qualifiers (1) DM (diabetes mellitus): Qualified Codes: E10.8 - Type 1 diabetes mellitus with unspecified complications Jasmyne Bee Jun 28, 2017 11:05 Maurice Schultz MD Jun 29, 2017 13:49
--- NOTE | 2017-06-28 12:44 | PD.POD.CON ---
Patient Intake Chief Complaint Diabetic foot ulcers bilateral Consult Requested by Dr. Armijo Reason for Consult Evaluation and treatment of bilateral diabetic foot ulcers Primary Care Physician Unknown History of Present Illness Patient is a 56-year-old diabetic male with end-stage renal disease on hemodialysis. He was seen in my office 2 months ago for diabetic foot evaluation. At that time he had no ulcers or other concerns other then peripheral neuropathy. He smokes cigarettes. He was counseled against smoking. He was admitted recently for hypoglycemia and it was noted that he had bilateral foot ulcerations. CTA was ordered and he has decreased flow to the feet Coded Allergies: No Known Allergies (Verified , 06/26/17) Preferred Language to Discuss: Divehi Barriers to Learning: None Teaching Method: Discussion Vital Signs Date Time Temp Pulse Resp B/P (MAP) Pulse Ox O2 Delivery O2 Flow Rate FiO2 06/28/17 11:51 98.1 87 18 151/81 (104) 96 06/28/17 08:32 98.1 85 20 146/68 (94) 94 06/28/17 07:38 93 21 06/28/17 04:00 97.8 82 18 101/56 (71) 95 06/28/17 00:00 97.7 56 18 152/75 (100) 96 06/28/17 00:00 98.6 84 18 117/56 (76) 94 06/27/17 20:54 98.3 96 16 151/72 (98) 98 06/27/17 20:13 92 06/27/17 17:14 97.6 84 18 147/71 (96) 96 Pain scale used: 0-10 numeric scale Pain score: 0 Medications Current Medications Albuterol/ Ipratropium (Duoneb Neb) 1 ampule ONCE ONCE INH Last administered on 06/26/17t 15:34; Start 06/26/17 at 15:30; Stop 06/26/17 at 15:31; Status DC Sodium Chloride (NS Flush) 2 ml UNSCH PRN IVF FLUSH AFTER USING IV ACCESS; Start 06/26/17 at 15:30; Status Cancel Sodium Chloride 1,000 ml @ 0 mls/hr Q0M PRN OTHER For Prime & Rinse Back; Start 06/26/17 at 16:50 Heparin Sodium (Porcine) (Heparin Inj) 8,000 units UNSCH PRN IVF WITH DIALYSIS ; Start 06/26/17 at 17:00 Sodium Chloride 1,000 ml @ 200 mls/hr Q5H PRN IV WITH DIALYSIS; Start 06/26/17 at 16:50 Sodium Chloride 1,000 ml @ 0 mls/hr Q0M PRN OTHER WITH DIALYSIS; Start at 16:50 Mannitol (Mannitol Inj) 12.5 gm UNSCH PRN IV WITH DIALYSIS; Start 06/26/17 at 17:00 Albumin Human (Albumin 25% Inj) 25 gm UNSCH PRN IV WITH DIALYSIS; Start at 17:00 Sodium Chloride (NS Flush) 5 ml UNSCH PRN IV FLUSH WITH DIALYSIS; Start at 17:00 Heparin Sodium (Porcine) (Heparin Inj) UNSCH PRN .XX WITH DIALYSIS; Start 09/30 at 17:00 Gentamicin Sulfate (Gentamicin (Dialysis) Inj) 20 mg UNSCH PRN IV WITH DIALYSIS ; Start 06/26/17 at 17:00 Ondansetron HCl (Zofran Inj) 4 mg UNSCH PRN IV WITH DIALYSIS; Start 06/26/17 at 17:00 Acetaminophen (Tylenol) 650 mg UNSCH PRN PO for headach, pain, temp > 101F; Start 06/26/17 at 17:00 Diphenhydramine HCl (Benadryl) 25 mg UNSCH PRN PO for hives/itching/anaphylaxis ; Start 06/26/17 at 17:00 Nitroglycerin (Nitrostat Sl) 0.4 mg UNSCH PRN SL CHEST PAIN; Start 06/26/17 at 17:00 Clonidine (Catapres) 0.1 mg UNSCH PRN PO for BP > 180/100 X 2 readings Last administered on 06/26/17 19:02; Start 06/26/17 at 17:00 Gelatin (Gelfoam 12 Mm/7 Mm Top) 1 foam UNSCH PRN TOP SEE LABEL COMMENTS Last administered on 06/27/17 13:05; Start 06/26/17 at 17:00 Albuterol/ Ipratropium (Duoneb Neb) 1 ampule ONCE ONCE INH Last administered on 06/26/17 20:11; Start 06/26/17 at 19:15; Stop 06/26/17 at 19:16; Status DC Iodixanol (VISIPAQUE 320 INJ (Rad CT)) 100 ml STK-MED ONCE IV ; Start 06/26/17 at 14:19; Stop 06/26/17 at 19:59; Status DC Clindamycin Phosphate 600 mg/ Sodium Chloride 104 ml @ 208 mls/hr ONCE ONCE IV Last administered on 06/26/17 21:35; Start 06/26/17 at 21:15; Stop at 21:46; Status DC Sodium Chloride (NS Flush) 2 ml UNSCH PRN IV FLUSH FLUSH AFTER USING IV ACCESS ; Start 06/26/17 at 22:00 Sodium Chloride (NS Flush) 2 ml BID IV FLUSH Last administered on 06/28/17 08: 55; Start 06/26/17 at 22:00 Atorvastatin Calcium (Lipitor) 40 mg HS PO Last administered on 06/27/17 22:05 ; Start 06/26/17 at 23:00 Dextrose (D50w (Syr) Inj) 50 ml STK-MED ONCE .ROUTE ; Start 06/26/17 at 23:01; Stop 06/26/17 at 23:02; Status DC Sodium Chloride (NS Flush) 2 ml UNSCH PRN IV FLUSH FLUSH AFTER USING IV ACCESS ; Start 06/26/17 at 23:00; Status Cancel Sodium Chloride (NS Flush) 2 ml BID IV FLUSH ; Start 06/26/17 at 23:00; Status Cancel Enoxaparin Sodium (Lovenox Inj) 30 mg Q24H SQ Last administered on 06/27/17 22 :05; Start 06/26/17 at 23:00 Naloxone HCl (Narcan Inj) 0.4 mg UNSCH PRN IV SEE LABEL COMMENTS; Start at 23:00 Senna/Docusate Sodium (Odette-Colace) 1 tab BID PO Last administered on 08:55; Start 06/27/17 at 09:00 Insulin Aspart (NovoLOG SUPPLEMENTAL SCALE) 1 ACHS SLIDING SCALE SQ Last administered on 06/28/17 08:00; Start 06/27/17 at 08:00 Albuterol/ Ipratropium (Duoneb Neb) 1 ampule Q4HR NEB INH Last administered on 06/28/17 11:00; Start 06/27/17 at 00:00 Albuterol Sulfate (Albuterol Neb) 2.5 mg Q2HR NEB PRN INH SHORTNESS OF BREATH; Start 06/26/17 at 23:00 Dextrose (D50w (Vial) Inj) 50 ml UNSCH PRN IV HYPOGLYCEMIA-SEE COMMENTS Last administered on 06/26/17 23:22; Start 06/26/17 at 23:00 Metoprolol Succinate (Toprol Xl) 25 mg DAILY PO Last administered on 06/28/17 08:55; Start 06/27/17 at 01:30 Nicotine (Habitrol 14 Mg Patch.24 Hr) 1 patch DAILY T-DERMAL Last administered on 06/28/17 08:54; Start 06/27/17 at 17:30; Stop 06/28/17 at 12:36; Status DC Miscellaneous Information 1 HS T-DERMAL ; Start 06/27/17 at 21:00 Insulin Aspart (NovoLOG INJ) 5 units ONCE ONCE SQ Last administered on 22:19; Start 06/27/17 at 22:15; Stop 06/27/17 at 22:16; Status DC Insulin Detemir (Levemir Inj) 5 units ONCE ONCE SQ ; Start 06/28/17 at 02:15; Stop 06/28/17 at 02:16; Status DC Insulin Detemir (Levemir Inj) 10 units DAILY SQ Last administered on 06/28/17 09:00; Start 06/28/17 at 09:00 Insulin Detemir (Levemir Inj) 5 units HS SQ ; Start 06/28/17 at 21:00 Past, Family & Social History Past Medical History Endocrine: REPORTS HX OF: Diabetes mellitus (TYPE 2) Respiratory: REPORTS HX OF: COPD Cardiovascular: REPORTS HX OF: Hypertension Genitourinary: REPORTS HX OF: Hemodialysis, Kidney failure (renal-stage 5) Neurologic: REPORTS HX OF: Peripheral neuropathy Past Surgical History HEENT: REPORTS HX OF: Other eye surgery Gastrointestinal: DENIES HX OF: Colectomy, total Family Medical History Diabetes mellitus G8 FATHER G8 MOTHER FH: kidney failure G8 FATHER FH: ovarian cancer G8 MOTHER Kidney disease G8 FATHER Substance Use Substance Use: Denies use Hermelinda/Protestant Hermelinda Tradition/Protestant: [employer] Review of Systems Genitourinary: COMPLAINS OF: Renal disease, Dialysis Neurological: COMPLAINS OF: Numbness/tingling, Changes in sensation Exam-Podiatry Constitutional General appearance: comfortable Nutritional status: normal Orientation: alert and oriented x3 Dermatological Exam Skin Temp - Right: Within Normal Limits Skin Texture - Right: Within Normal Limits Skin Elasticity - Right: Within Normal Limits Skin Tugor - Right: Within Normal Limits Hair Growth - Right: Within Normal Limits Pigmentation - Right: Within Normal Limits Skin Temp - Left: Within Normal Limits Skin Texture - Left: Within Normal Limits Skin Elasticity - Left: Within Normal Limits Skin Tugor - Left: Within Normal Limits Hair Growth - Left: Within Normal Limits Pigmentation - Left: Within Normal Limits Ulcers: Location/Measurements He hasn't hyperkeratotic lesion at the distal tip of the second toe of the left foot with possible underlying ulceration. There is no open draining areas. He has small area of ischemic tissue at the distal right hallux without signs of infection or cellulitis Vascular/Lymphatic Exam R Dorsails Pedis: Doppler L Dorsails Pedis: Doppler R Posterior Tibial: Doppler L Posterior Tibial: Doppler Neurologic Exam Present on right: Tingling, Paraesthesia Present on left: Tingling, Paraesthesia Muscle Strength Dorsiflexion (Right): Normal Plantarflexion (Right): Normal Inversion (Right): Normal Eversion (Right): Normal Digital (Right): Normal Dorsiflexion (Left): Normal Plantarflexion (Left): Normal Inversion (Left): Normal Eversion (Left): Normal Digital (Left): Normal Foot Range of Motion Dorsiflexion (Right): Normal Plantarflexion (Right): Normal Inversion (Right): Normal Eversion (Right): Normal Digital (Right): Normal Dorsiflexion (Left): Normal Plantarflexion (Left): Normal Inversion (Left): Normal Eversion (Left): Normal Digital (Left): Normal Joint Instability Hammer Toe: Toe #2 (L) Lab and Radiology Results Laboratory Laboratory Tests Test 06/26/17 15:00 06/27/17 12:25 White Blood Count 7.6 TH/MM3 5.6 TH/MM3 Red Blood Count 4.29 MIL/MM3 4.33 MIL/MM3 Hemoglobin 12.3 GM/DL 12.6 GM/DL Hematocrit 38.6 % 38.3 % Mean Corpuscular Volume 89.9 FL 88.5 FL Mean Corpuscular Hemoglobin 28.7 PG 29.1 PG Mean Corpuscular Hemoglobin Concent 32.0 % 32.9 % Red Cell Distribution Width 15.9 % 15.8 % Platelet Count 153 TH/MM3 133 TH/MM3 Mean Platelet Volume 10.3 FL 10.5 FL Neutrophils (%) (Auto) 82.5 % 57.8 % Lymphocytes (%) (Auto) 7.5 % 24.0 % Monocytes (%) (Auto) 9.4 % 11.0 % Eosinophils (%) (Auto) 0.1 % 6.5 % Basophils (%) (Auto) 0.5 % 0.7 % Neutrophils # (Auto) 6.3 TH/MM3 3.2 TH/MM3 Lymphocytes # (Auto) 0.6 TH/MM3 1.3 TH/MM3 Monocytes # (Auto) 0.7 TH/MM3 0.6 TH/MM3 Eosinophils # (Auto) 0.0 TH/MM3 0.4 TH/MM3 Basophils # (Auto) 0.0 TH/MM3 0.0 TH/MM3 CBC Comment DIFF FINAL DIFF FINAL Differential Comment Erythrocyte Sedimentation Rate 43 mm/hr Laboratory Tests Test 06/26/17 15:00 06/27/17 12:25 06/27/17 23:57 Blood Urea Nitrogen 72 MG/DL 41 MG/DL 50 MG/DL Creatinine 16.62 MG/DL 8.96 MG/DL 10.65 MG/DL Random Glucose 66 MG/DL 375 MG/DL 357 MG/DL Total Protein 7.4 GM/DL 7.1 GM/DL Albumin 3.6 GM/DL 3.0 GM/DL Calcium Level 8.7 MG/DL 8.5 MG/DL 8.3 MG/DL Alkaline Phosphatase 103 U/L 161 U/L Aspartate Amino Transf (AST/SGOT) 67 U/L 69 U/L Alanine Aminotransferase (ALT/SGPT) 56 U/L 55 U/L Total Bilirubin 0.6 MG/DL 0.8 MG/DL Sodium Level 140 MEQ/L 135 MEQ/L 137 MEQ/L Potassium Level 5.1 MEQ/L 4.1 MEQ/L 4.1 MEQ/L Chloride Level 103 MEQ/L 95 MEQ/L 96 MEQ/L Carbon Dioxide Level 23.0 MEQ/L 27.0 MEQ/L 29.2 MEQ/L Anion Gap 14 MEQ/L 13 MEQ/L 12 MEQ/L Estimat Glomerular Filtration Rate 4 ML/MIN 7 ML/MIN 6 ML/MIN C-Reactive Protein 5.60 MG/DL Phosphorus Level 5.5 MG/DL B-Type Natriuretic Peptide 1355 PG/ML Radiology Last Impressions Chest X-Ray 06/26/17 1517 Signed Impressions: Service Date/Time: Monday, June 26, 2017 15:48 - CONCLUSION: Mild streaky opacity the perihilar regions which could indicate early pulmonary edema. Albin West MD Foot X-Ray 06/26/17 0000 Signed Impressions: Service Date/Time: Monday, June 26, 2017 16:17 - CONCLUSION: 1. No radiographic evidence for fracture or osteomyelitis, as questioned. Phani Vasquez MD Aorta w/Runoff CTA 06/26/17 0000 Signed Impressions: Service Date/Time: Monday, June 26, 2017 17:31 - CONCLUSION: 1. No significant aortic occlusive disease or inflow iliac stenosis. 2. No significant outflow stenosis. 3. Heavily calcified bilateral runoff vessels which limits evaluation. Very diminutive flow beyond the mid to distal calfs bilaterally. Phani Vasquez MD Assessment/Plan Problem List: (1) Tobacco abuse Status: Chronic (2) ESRD on hemodialysis Status: Chronic (3) Ischemic ulcer diabetic foot Status: Acute (4) Diabetic neuropathy Status: Acute (5) PAD (peripheral artery disease) Status: Acute Additional Plans & Procedures PLAN: Patient can follow-up with me in the wound center after discharge. He may need of vascular surgery consult. Problem Qualifiers (1) Diabetic neuropathy: Qualified Codes: E11.42 - Type 2 diabetes mellitus with diabetic polyneuropathy Emmanuel Bustamante DPM Jun 28, 2017 12:44
--- NOTE | 2017-06-28 15:18 | HHI.FPPN ---
Subjective Remarks Mr Aguilera was found to have elevated BS to 588 last night that normalized with 8 units of levemir. Pt is on low SSI but not basal insulin and is considered to be a brittle type 1 diabetic. He has no pain or cough this morning, but he asked about hyperpigmented nodules on his bilateral arms and legs that he says have been present for a few months. Denies CP, SOB, N/V/D and DVT pain. (Adair Hammonds MD R1) Objective Vitals Vital Signs Date Time Temp Pulse Resp B/P (MAP) Pulse Ox O2 Delivery O2 Flow Rate FiO2 06/28/17 11:51 98.1 87 18 151/81 (104) 96 06/28/17 08:32 98.1 85 20 146/68 (94) 94 06/28/17 07:38 93 21 06/28/17 04:00 97.8 82 18 101/56 (71) 95 06/28/17 00:00 97.7 56 18 152/75 (100) 96 06/28/17 00:00 98.6 84 18 117/56 (76) 94 06/27/17 20:54 98.3 96 16 151/72 (98) 98 06/27/17 20:13 92 06/27/17 17:14 97.6 84 18 147/71 (96) 96 I/O 06/27/17 06/27/17 06/27/17 06/28/17 06/28/17 06/28/17 07:00 15:00 23:00 07:00 15:00 23:00 Intake Total 360 ml Output Total 4100 ml Balance -4100 ml 360 ml Intake Oral 360 ml Output Hemodialysis 4100 ml # Voids 0 1 # Bowel Movements 0 (Adair Hammonds MD R1) Result Diagram: 06/27/17 1225 06/27/17 0077 Imaging AJAY - ECHO 06/27/17: CONCLUSIONS Normal left ventricular size. Mild to moderate concentric left ventricular hypertrophy. The left ventricular systolic function is low normal with an estimated ejection fraction in the range of 50- 55%. Normal regional wall motion. Mild mitral annular calcification is present. Trace to mild mitral regurgitation. Aortic valve sclerosis is present. Trace aortic valve regurgitation. There is trace tricuspid valve regurgitation. The estimated pulmonary arterial pressure is 31 mmHg. Objective Remarks GENERAL: Thin 56 yr old man, lying in bed, in NAD, pleasant SKIN: necrosis of left second toe with proximal erythema; hyperpigmented nodules on bilateral arm extensor surfaces and on bilateral LE shins. EYES: Pupils equal round and reactive. Extraocular motions intact. No scleral icterus. No injection or drainage. ENT: Nose without bleeding, purulent drainage or septal hematoma. Airway patent. NECK: Trachea midline. No lymphadenopathy. Supple, nontender, no meningeal signs. CARDIOVASCULAR: RRR, 2/6 ejection murmur radiating to the axilla, best heard at LSB RESPIRATORY: mild wheezes throughout GASTROINTESTINAL: Abdomen soft, non-tender, nondistended. EXTREMITIES: BL leg pedal pulses (DP and PT) not present; BL popliteal pulses weak. No pitting edema. No calf tenderness. NEUROLOGICAL: Awake and alert. No sensation in b/l feet. At baseline, patient uses cane to walk. Medications and IVs Current Medications Medications (Trade) Dose Ordered Sig/April Route Start Time Stop Time Status Last Admin Sodium Chloride 1,000 ml @ 0 mls/hr Q0M PRN OTHER 06/26/17 16:50 (Heparin Inj) 8,000 units UNSCH PRN IVF 06/26/17 17:00 Sodium Chloride 1,000 ml @ 200 mls/hr Q5H PRN IV 06/26/17 16:50 Sodium Chloride 1,000 ml @ 0 mls/hr Q0M PRN OTHER 06/26/17 16:50 (Mannitol Inj) 12.5 gm UNSCH PRN IV 06/26/17 17:00 (Albumin 25% Inj) 25 gm UNSCH PRN IV 06/26/17 17:00 (NS Flush) 5 ml UNSCH PRN IV FLUSH 06/26/17 17:00 (Heparin Inj) UNSCH PRN .XX 06/26/17 17:00 (Gentamicin (Dialysis) Inj) 20 mg UNSCH PRN IV 06/26/17 17:00 (Zofran Inj) 4 mg UNSCH PRN IV 06/26/17 17:00 (Tylenol) 650 mg UNSCH PRN PO 06/26/17 17:00 (Benadryl) 25 mg UNSCH PRN PO 06/26/17 17:00 (Nitrostat Sl) 0.4 mg UNSCH PRN SL 06/26/17 17:00 (Catapres) 0.1 mg UNSCH PRN PO 06/26/17 17:00 06/26/17 19:02 (Gelfoam 12 Mm/7 Mm Top) 1 foam UNSCH PRN TOP 06/26/17 17:00 06/27/17 13:05 (NS Flush) 2 ml UNSCH PRN IV FLUSH 06/26/17 22:00 (NS Flush) 2 ml BID IV FLUSH 06/26/17 22:00 06/28/17 08:55 (Lipitor) 40 mg HS PO 06/26/17 23:00 06/27/17 22:05 (Lovenox Inj) 30 mg Q24H SQ 06/26/17 23:00 06/27/17 22:05 (Narcan Inj) 0.4 mg UNSCH PRN IV 06/26/17 23:00 (Odette-Colace) 1 tab BID PO 06/27/17 09:00 06/28/17 08:55 (NovoLOG SUPPLEMENTAL SCALE) 1 ACHS SLIDING SCALE SQ 06/27/17 08:00 06/28/17 12:47 (Duoneb Neb) 1 ampule Q4HR NEB INH 06/27/17 00:00 06/28/17 11:00 (Albuterol Neb) 2.5 mg Q2HR NEB PRN INH 06/26/17 23:00 (D50w (Vial) Inj) 50 ml UNSCH PRN IV 06/26/17 23:00 06/26/17 23:22 (Toprol Xl) 25 mg DAILY PO 06/27/17 01:30 06/28/17 08:55 Miscellaneous Information 1 HS T-DERMAL 06/27/17 21:00 (Levemir Inj) 10 units DAILY SQ 06/28/17 09:00 06/28/17 09:00 (Levemir Inj) 5 units HS SQ 06/28/17 21:00 (Adair Hammonds MD R1) Urinary Catheter: No (Adair Hammonds MD R1) A/P Assessment and Plan 56 yr old w/ ESRD on dialysis, DM type 1, HTN, PAD, and COPD, admitted for hypoglycemia and necrosis of second left toe Discharge Planning Pending workup of necrotic toe (Adair Hammonds MD R1) Attending Attestation Patient seen and examined. Case reviewed and discussed with the resident team. Agree with plan of care as discussed with me and documented in the resident note. agree with changing his insulin so he is on less long acting and more short acting to help prevent hypoglycemia. (Jasmyne Armijo MD) Problem List: (1) ESRD on hemodialysis ICD Codes: N18.6 - End stage renal disease; Z99.2 - Dependence on renal dialysis Status: Chronic Plan: Patient receives dialysis on ,,. Patient reports last dialysis treatment was on June 23. -BUN 72, Cr 16.62 -Nephrology consulted, appreciated recs -s/p dialysis upon admission, 3 liters taken off -patient will received dialysis in the AM -repeat CMP, phosphorus level ordered for the AM -HD tomorrow (2) Diabetes type 1, uncontrolled ICD Codes: E10.65 - Type 1 diabetes mellitus with hyperglycemia Status: Chronic Plan: Brittle diabetic who became severely hypoglycemic to 20 on AM long acting dose w/o breakfast, has normalized on SSI in hospital, but became hyperglycemic overnight to 588 on low SSI and w/o long acting insulin -Start Levemir 10 units AM and 5 units PM -Aspart 5 units after each meal -Titrate for effect -Diabetic education consult (3) HTN (hypertension) ICD Codes: I10 - Essential (primary) hypertension Status: Chronic Plan: Patient reports no current use of HTN meds. Patient was on metoprolol and lisinopril per chart review. -Metoprolol 25 mg PO daily -Start Lisinopril 2.5 mg/day due to ESRD/renal clearance Permanent Comment: Dr. Rose - will do cardiac clearance. Last Edited By : Rosalio Cruz on May 10, 2015 14:46 (4) Ischemic ulcer diabetic foot ICD Codes: E11.621 - Type 2 diabetes mellitus with foot ulcer; L97.509 - Non- pressure chronic ulcer of other part of unspecified foot with unspecified severity Status: Acute Plan: 1 month hx of worsening ischemic ulcer of left second toe -foot x-ray, no radiographic evidence for fracture or osteomyelitis, may need foot MRI -CTA pending -CRP elevated 5.60, ESR elevated 43, no leukocytosis -CBC ordered for the AM -s/p clindamycin for suspected cellulitis, did not continue abx based on foot examination -Podiatry consulted, appreciate recs -Vascular surgery consulted w/concern for poor perfusion that would inhibit wound healing--appreciate recs (5) Hypoglycemia ICD Codes: E16.2 - Hypoglycemia, unspecified Status: Resolved Plan: Patient reports being compliant with his medications and checking his sugars. Took 20units of insulin this morning w/o eating. Last hospitalizations for hypoglycemia in February 2017. -CMP- random glucose 66 upon ED admission -Bedside glucose at 23:00 was 31, patient given D50, glucose at 23:56 was 98 -Low NovoLog Sliding Scale 06/28 - Pt had hyperglycemia overnight to 588; pt on SSI w/o basal insulin -Pt became hypoglycemic at home on Lantus 20 units AM and 10 units PM after taking the AM dose, then going back to sleep without eating breakfast -Starting Levemir 10 units AM and 5 units PM, then add 5 units Aspart with meals to better titrate insulin for effect w/o hypoglycemic events (6) Cardiac murmur, unspecified ICD Codes: R01.1 - Cardiac murmur, unspecified Plan: 2/6 ejection murmur on exam. Patient endorses SOB on exertion -EKG, sinus rhythm -CXR- mild streaky opacity in perihilar regions could indicated early pulmonary edema -BNP 1355 more consistent with pulmonary edema as lung exam reveals bilateral wheezing vs crackles--not fluid overloaded -Echo with EF 50-55%, mild-moderate concentric LVH, normal wall motion (7) COPD (chronic obstructive pulmonary disease) ICD Codes: J44.9 - Chronic obstructive pulmonary disease, unspecified Status: Chronic Plan: Wheezes throughout, decreased aeration in b/l upper lobes -s/p 2 L O2 NC in ED, weaned to room air -CXR in ED, mild streaky opacity in perihilar regions could indicated early pulmonary edema -Duonebs q4h -Albuterol Neb PRN (8) Nutrition, metabolism, and development symptoms ICD Codes: R63.8 - Other symptoms and signs concerning food and fluid intake Plan: Fluids: none, avoid per nephro Diet: Diabetic DVT ppx: SCDs b/l, lovenox daily Health maint: RPR, HIV pending (Adair Hammonds MD R1) Problem Qualifiers (1) Diabetes type 1, uncontrolled: (2) HTN (hypertension): Qualified Codes: I15.0 - Renovascular hypertension Blanke,Adair H MD R1 Jun 28, 2017 15:18 Jasmyne Armijo MD Jun 29, 2017 15:15
--- NOTE | 2017-06-28 15:31 | PD.CAR.PN ---
CVT Progress Note Subjective/Hospital Course: Referral received Full consult TF J Objective: Vital Signs Date Time Temp Pulse Resp B/P (MAP) Pulse Ox O2 Delivery O2 Flow Rate FiO2 06/28/17 11:51 98.1 87 18 151/81 (104) 96 06/28/17 08:32 98.1 85 20 146/68 (94) 94 06/28/17 07:38 93 21 06/28/17 04:00 97.8 82 18 101/56 (71) 95 06/28/17 00:00 97.7 56 18 152/75 (100) 96 06/28/17 00:00 98.6 84 18 117/56 (76) 94 06/27/17 20:54 98.3 96 16 151/72 (98) 98 06/27/17 20:13 92 06/27/17 17:14 97.6 84 18 147/71 (96) 96 Result Diagram: 06/27/17 1225 06/27/17 2357 Sujata Galicia MD Jun 28, 2017 15:31
--- NOTE | 2017-06-28 16:21 | MB ---
cc: SUJATA FERNANDO MD DATE OF CONSULTATION: 06/28/[address] Fernando, Vascular Surgery. REASON FOR CONSULTATION Second toe left dry gangrene. HISTORY OF PRESENT ILLNESS This is a 56-year-old male who is a type 1 diabetic, noted several weeks ago that his toes were getting dark, particularly one being second toe on the left foot. The patient is now admitted for further care, in the process he is found to have a small ulcer on the right hallux as well. Question arises if there is a vascular condition that can be remedied. The patient was seen several times for diabetic foot evaluation in podiatry office. PAST MEDICAL HISTORY 1. Diabetes mellitus. 2. Hypertension. 3. Chronic renal failure on hemodialysis. 4. Peripheral neuropathy. PAST SURGICAL HISTORY AV fistula placement in left upper arm. ALLERGIES No allergies. SOCIAL HISTORY The patient smokes about a pack a day most his adult life. PHYSICAL EXAMINATION GENERAL: Physical examination reveals a 56-year-old male in no acute distress. HEENT: Normocephalic. No trauma to the head. Pupils equally reactive. Extraocular muscles intact. NECK: Neck is supple. Bilateral carotid pulses. No bruits. CHEST: Bilateral breath sounds. HEART: Regular rhythm. ABDOMEN: Soft. Active bowel sounds. No rebound or guarding. No masses. EXTREMITIES: The patient has palpable femoral pulses bilaterally and palpable popliteal pulses bilaterally. Dorsalis pedis, posterior tibial are very weak. On the right side the patient has fairly brisk dorsalis pedis and no posterior tibial, on the left side, the patient has both and these are +1 fairly weak. Second toe left foot is involved in dry gangrene and there is small ulcer on the hallux of the right foot. NEUROLOGIC EXAMINATION: The patient is neurologically intact. He is awake, alert, oriented. No lateralization is noted. Deep tendon reflexes intact. IMPRESSION Patient with peripheral vascular disease and manifestation of it being the gangrene of the second toe of the left foot. I reviewed the CTA and this corresponds to physical exam. The patient has excellent inflow with minimal degree of the disease to the inguinal ligaments and mild calcifications below that but patent both common femoral arteries and superficial femoral arteries. The disease basically starts beyond the trifurcation where the patient has barely recognizable three vessels and none of them runs to the foot on either side. These are branches and twigs and some flow that reconstitutes on the right at the level of the dorsum of the foot but on the left side I barely can see anything. At this point this patient has non-reconstructable vascular disease. There is nothing we can do with changes below the knee. Inflow is intact and there is no improvement to be done here. I will proceed with toe amputation as scheduled and we will see how this heals. This patient is at high risk of losing his leg to the level below the knee in the future, but unfortunately there is no endovascular or vascular procedure that would prevent that for there is no treatable stenosis here. Thank you very much for the referral. Sujata ZAIDI/CLARICEL /3:35 PM /3:58 PM
[2017-06-28] MEDS: REMOVE OLD PATCH T-DERMAL SCH (21:00)
[2017-06-28] MEDS ORDERED: INSULIN DETEMIR 100 UNITS/ML VIAL SQ SCH (21:00)
[2017-06-28] MEDS: ATORVASTATIN 40 MG TAB PO SCH (22:30)
[2017-06-28] MEDS: ENOXAPARIN SODIUM 30 MG/0.3 ML SYRINGE SQ SCH (23:00)
[2017-06-29] VITALS: BP 157/80; PULSE 83; RESP 16; TEMP 97.9; O2SAT 97
[2017-06-29] MEDS: RESP: ALBUTEROL 2.5 MG/IPRATROPIUM 0.5 MG NEB (SCH) INH ×5 (03:40→16:00)
[2017-06-29 04:43] VITALS: BP 151/75; PULSE 82; RESP 18; TEMP 98.2; O2SAT 95
[2017-06-29] MEDS: BENZONATATE 100 MG CAP PO PRN ×2 (07:04→17:40)
[2017-06-29 08:12] VITALS: BP 152/72; PULSE 79; RESP 18; TEMP 97.6; O2SAT 96
[2017-06-29] MEDS: METOPROLOL SUCCINATE 25 MG EXTENDED RELEASE TAB PO SCH (08:21)
[2017-06-29] MEDS: DOCUSATE SODIUM 50 MG/SENNA 8.6 MG TAB PO SCH (08:22)
[2017-06-29] MEDS: SODIUM CHLORIDE 0.9% FLUSH 10 ML FLUSH IV FLUSH SCH (08:22)
[2017-06-29] MEDS: INSULIN ASPART SUPPLEMENTAL SCALE SQ SCH ×3 (08:22→17:40)
[2017-06-29] MEDS: INSULIN DETEMIR 100 UNITS/ML VIAL SQ SCH (08:23)
[2017-06-29] MEDS: guaiFENesin/DEXTROMETHORPHAN 200 MG/20 MG/10 ML CUP PO PRN ×2 (08:32→13:53)
--- NOTE | 2017-06-29 09:04 | HHI.NPPN ---
Subjective General Problems: Anemia, COPD, Hypertension Renal Failure: Chronic, End Stage Renal Disease Interval History Seen during dialysis. Seen by vascular, he is to have his left toe amputated. (Jasmyne Bee) Review of Systems Skin Skin: Lesions, Ulcers Skin Remarks toes bilaterally (Jasmyne Bee) Objective Data Data Vital Signs Date Time Temp Pulse Resp B/P (MAP) Pulse Ox O2 Delivery O2 Flow Rate FiO2 06/29/17 08:12 97.6 79 18 152/72 (98) 96 06/29/17 04:43 98.2 82 18 151/75 (100) 95 06/29/17 00:00 97.9 83 16 157/80 (105) 97 06/28/17 21:39 94 21 06/28/17 20:27 98.3 83 18 135/67 (89) 95 06/28/17 20:10 90 06/28/17 16:06 98.2 86 18 145/70 (95) 94 06/28/17 11:51 98.1 87 18 151/81 (104) 96 (Jasmyne Bee) -: 06/27/17 1225 06/27/17 2357 Imaging Last 72 hours Impressions Chest X-Ray 06/26/17 1517 Signed Impressions: Service Date/Time: Monday, June 26, 2017 15:48 - CONCLUSION: Mild streaky opacity the perihilar regions which could indicate early pulmonary edema. Albin West MD (Jasmyne Bee) Physical Exam General Appearance: Well Developed, Well Nourished, No Acute Distress, Comfortable (Jasmyne Bee) Throat Throat Exam: Oral Mucosa [place] & Moist (Jasmyne Bee) Pulmonary Resp Exam: Breath Sounds Equal, No Distress, Rhonchi (Jasmyne Bee) Cardiology CV Exam: Regular, Normal Sinus Rhythm (Jasmyne Bee) Gastrointestinal/Abdomen GI Exam: Soft, Non-Tender (Jasmyne Bee) Musculoskeletal MS Exam: Joints Intact, Normal Gait, Normal Tone, Good Strength (Jasmyne Bee) Integumentary Skin Exam: Warm, Dry Skin Remarks left 2nd digit, darkened open area right 1st digit, tip of toe with ulcer (Jasmyne Bee) Extremeties Extremities Exam: No Edema Extremeties Remarks weak pedal pulses (Jasmyne Bee) Neurologic Neuro Exam: Alert, Awake, Oriented, Speech Clear, Moving All Extremities (Jasmyne Bee) Psychiatric Psych Exam: Appropriate Responses (Jasmyne Bee) Assessment/Plan Discussed Condition With: Patient Assessment Summary: Anemia of CKD, Hypertension, Diabetes Mellitus, End Stage Renal Disease Problem List: (1) ESRD (end stage renal disease) ICD Codes: N18.6 - End-stage renal disease Status: Acute Plan: Seen during dialysis on a 2K, 350 BFR, goal 3L Continue MWF HD per outpatient schedule Stable from renal perspective, obtain intermittent renal panel follow fluid status, avoid IVF He has functioning AVF for dialysis use Avoid gadolinium High protein diet encouraged (2) DM (diabetes mellitus) ICD Codes: E11.9 - Type 2 diabetes mellitus without complications Status: Acute Plan: Continue insulin therapy if needed He is a brittle diabetic Glucose goal 140-180 mg/dL. (3) HTN (hypertension) ICD Codes: I10 - Essential (primary) hypertension Status: Chronic Plan: Continue home medications Echo taken, EF 50-55%, systolic dysfunction Permanent Comment: Dr. Rose - will do cardiac clearance. Last Edited By : Rosalio Cruz on May 10, 2015 14:46 (4) Bone metabolism disorder ICD Codes: E88.9 - Metabolic disorder, unspecified; M90.80 - Osteopathy in diseases classified elsewhere, unspecified site Status: Acute Plan: Phosphorus level elevated on Renvela with meals (5) Gangrene ICD Codes: I96 - Gangrene, not elsewhere classified Plan: Appears to have dry gangrene of left 2nd toe CTA with runoff taken that shows: 1. No significant aortic occlusive disease or inflow iliac stenosis. 2. No significant outflow stenosis. 3. Heavily calcified bilateral runoff vessels which limits evaluation. Very diminutive flow beyond the mid to distal calfs bilaterally. podiatry and vascular have evaluated; to see podiatry after discharge; plan is for toe amputation; no vascular intervention options available (Jasmyne Bee) Plan patient was seen and examined. Agree with above assessment and plan. (Maurice Schultz MD) Problem Qualifiers (1) DM (diabetes mellitus): Qualified Codes: E10.8 - Type 1 diabetes mellitus with unspecified complications Jasmyne Bee Jun 29, 2017 09:04 Maurice Schultz MD Jun 29, 2017 13:54
[2017-06-29] MEDS: GELATIN 12 MM/7 MM FOAM TOP PRN (11:44)
[2017-06-29 14:11] VITALS: BP_SYST 151; PULSE 76; RESP 18; TEMP 98.4; O2SAT 97
[2017-06-29] MEDS ORDERED: DULO1CAP2 PO (14:49)
[2017-06-29] MEDS ORDERED: METO25TA6 PO (14:49)
[2017-06-29] MEDS ORDERED: NOVOLOGSS SQ (14:49)
[2017-06-29] MEDS ORDERED: LEVEMIR SQ ×3 (14:49→15:06)
[2017-06-29] MEDS ORDERED: ATOR40TA16 PO (14:49)
--- NOTE | 2017-06-29 14:54 | HHI.DCPOC ---
Discharge Care Plan Goals to Promote Your Health * To prevent worsening of your condition and complications, check your blood sugar before breakfast each morning and 2 hours after dinner at a minimum. If you feel weak or sweaty like you are hypoglycemic, eat something and check another blood sugar * To maintain your health at the optimal level, try to keep your blood sugars above 60 but below 200 Directions to Meet Your Goals Take your medications as prescribed -For your insulin, take Levemir 10 units before breakfast and 5 units before bedtime; take 5 units Aspart after each meal Follow your dietary instruction Follow activity as directed Keep your appointments as scheduled -Call [facility] on Sunday, July 02 to schedule an appointment with Dr Bustamante. When you call they will schedule an appointment for you next week Take your immunizations and boosters as scheduled If your symptoms worsen call your PCP, if no PCP go to Urgent Care Center or Emergency Room Smoking is Dangerous to Your Health. Avoid second hand smoke Call the 24-hour hour crisis hotline for domestic abuse at Adair Hammonds MD R1 Jun 29, 2017 14:54
[2017-06-29] MEDS ORDERED: SYMB160A INH (14:59)
--- NOTE | 2017-06-29 15:12 | HHI.FPPN ---
Subjective Remarks Mr Aguilera is feeling great today with his glucoses at a good level ever since his insulin was changed around yesterday. He is eating well and ambulating down the [place] with his cane. He wants to go home today as long as he is not scheduled for amputation. Per podiatry he can follow up. There is some question as to whether he will need an amputation or not. He has no complaints, a negative ROS except for what he told us earlier about his neuropathy, etc. Objective Vitals Vital Signs Date Time Temp Pulse Resp B/P (MAP) Pulse Ox O2 Delivery O2 Flow Rate FiO2 06/29/17 14:11 98.4 76 18 151/ 97 06/29/17 08:12 97.6 79 18 152/72 (98) 96 06/29/17 04:43 98.2 82 18 151/75 (100) 95 06/29/17 00:00 97.9 83 16 157/80 (105) 97 06/28/17 21:39 94 21 06/28/17 20:27 98.3 83 18 135/67 (89) 95 06/28/17 20:10 90 06/28/17 16:06 98.2 86 18 145/70 (95) 94 I/O 06/28/17 06/28/17 06/28/17 06/29/17 06/29/17 06/29/17 07:00 15:00 23:00 07:00 15:00 23:00 Intake Total 360 ml 240 ml 480 ml Output Total 250 ml Balance 360 ml 240 ml 230 ml Intake Oral 360 ml 240 ml 480 ml Output Urine Total 250 ml # Voids 1 2 # Bowel Movements 0 1 Result Diagram: 06/27/17 1225 06/27/17 4358 Objective Remarks GENERAL: Thin 56 yr old man,walking in [place] with cane, in NAD, pleasant SKIN: necrosis of left second toe with proximal erythema; hyperpigmented nodules on bilateral arm extensor surfaces and on bilateral LE shins. EYES: Pupils equal round and reactive. Extraocular motions intact. No scleral icterus. No injection or drainage. ENT: Nose without bleeding, purulent drainage or septal hematoma. Airway patent. NECK: Trachea midline. No lymphadenopathy. Supple, nontender, no meningeal signs. CARDIOVASCULAR: RRR, 2/6 ejection murmur radiating to the axilla, best heard at LSB RESPIRATORY: mild wheezes throughout GASTROINTESTINAL: Abdomen soft, non-tender, nondistended. EXTREMITIES: BL leg pedal pulses (DP and PT) not present; BL popliteal pulses weak. No pitting edema. No calf tenderness. NEUROLOGICAL: Awake and alert. No sensation in b/l feet. At baseline, patient uses cane to walk. Urinary Catheter: No Vascular Central Line Catheter: No A/P Assessment and Plan 56 yr old w/ ESRD on dialysis, DM type 1, HTN, PAD, and COPD, admitted for hypoglycemia and necrosis of second left toe Discharge Planning pt wishes to go home now if possible Problem List: (1) ESRD on hemodialysis ICD Codes: N18.6 - End stage renal disease; Z99.2 - Dependence on renal dialysis Status: Chronic Plan: Patient receives dialysis on ,,. Patient reports last dialysis treatment was on June 23. -BUN 72, Cr 16.62 -Nephrology consulted, appreciated recs -s/p dialysis upon admission, 3 liters taken off -patient will received dialysis in the AM -repeat CMP, phosphorus level ordered for the AM -HD done today (2) Diabetes type 1, uncontrolled ICD Codes: E10.65 - Type 1 diabetes mellitus with hyperglycemia Status: Chronic Plan: Brittle diabetic who became severely hypoglycemic to 20 on AM long acting dose w/o breakfast, has normalized on SSI in hospital, but became hyperglycemic overnight to 588 on low SSI and w/o long acting insulin -Started Levemir 10 units AM and 5 units PM -Aspart 5 units after each meal -Titrate for effect -Diabetic education consult doing well (3) HTN (hypertension) ICD Codes: I10 - Essential (primary) hypertension Status: Chronic Plan: Patient reports no current use of HTN meds. Patient was on metoprolol and lisinopril per chart review. -Metoprolol 25 mg PO daily -Start Lisinopril 2.5 mg/day due to ESRD/renal clearance will be following up with Nephro during dialysis Permanent Comment: Dr. Rose - will do cardiac clearance. Last Edited By : Rosalio Cruz on May 10, 2015 14:46 (4) Ischemic ulcer diabetic foot ICD Codes: E11.621 - Type 2 diabetes mellitus with foot ulcer; L97.509 - Non- pressure chronic ulcer of other part of unspecified foot with unspecified severity Status: Acute Plan: 1 month hx of worsening ischemic ulcer of left second toe -foot x-ray, no radiographic evidence for fracture or osteomyelitis, may need foot MRI -CTA done -CRP elevated 5.60, ESR elevated 43, no leukocytosis -CBC ordered for the AM -s/p clindamycin for suspected cellulitis, did not continue abx based on foot examination -Podiatry consulted, appreciate recs -Vascular surgery consulted w/concern for poor perfusion that would inhibit wound healing--appreciate recs will follow up with wound clinic (5) Hypoglycemia ICD Codes: E16.2 - Hypoglycemia, unspecified Status: Resolved Plan: Patient reports being compliant with his medications and checking his sugars. Took 20units of insulin this morning w/o eating. Last hospitalizations for hypoglycemia in February 2017. -CMP- random glucose 66 upon ED admission -Bedside glucose at 23:00 was 31, patient given D50, glucose at 23:56 was 98 -Low NovoLog Sliding Scale 06/28 - Pt had hyperglycemia overnight to 588; pt on SSI w/o basal insulin -Pt became hypoglycemic at home on Lantus 20 units AM and 10 units PM after taking the AM dose, then going back to sleep without eating breakfast -Starting Levemir 10 units AM and 5 units PM, then add 5 units Aspart with meals to better titrate insulin for effect w/o hypoglycemic events (6) Cardiac murmur, unspecified ICD Codes: R01.1 - Cardiac murmur, unspecified Plan: 2/6 ejection murmur on exam. Patient endorses SOB on exertion -EKG, sinus rhythm -CXR- mild streaky opacity in perihilar regions could indicated early pulmonary edema -BNP 1355 more consistent with pulmonary edema as lung exam reveals bilateral wheezing vs crackles--not fluid overloaded -Echo with EF 50-55%, mild-moderate concentric LVH, normal wall motion (7) COPD (chronic obstructive pulmonary disease) ICD Codes: J44.9 - Chronic obstructive pulmonary disease, unspecified Status: Chronic Plan: Wheezes throughout, decreased aeration in b/l upper lobes -s/p 2 L O2 NC in ED, weaned to room air -CXR in ED, mild streaky opacity in perihilar regions could indicated early pulmonary edema -Duonebs q4h -Albuterol Neb PRN he was also fluid overloaded when he presented (8) Nutrition, metabolism, and development symptoms ICD Codes: R63.8 - Other symptoms and signs concerning food and fluid intake Plan: Fluids: none, avoid per nephro Diet: Diabetic DVT ppx: SCDs b/l, lovenox daily Health maint: RPR, HIV pending Problem Qualifiers (1) Diabetes type 1, uncontrolled: (2) HTN (hypertension): Qualified Codes: I15.0 - Renovascular hypertension Jasmyne Armijo MD Jun 29, 2017 15:11
[2017-06-29 16:22] VITALS: BP 155/74; PULSE 89; RESP 18; TEMP 98; O2SAT 95
[2017-06-29] MEDS ORDERED: SEVELAMER CARBONATE 800 MG TAB PO SCH (17:00)
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
== END 2017-06-29 18:40 | disposition home or self-care (01) | DRG 602 ==
LOC: NEPE 14:18 → NEDA 21:33 → OBSVTOIN 21:56 → N05A 23:13
PROVIDERS: ADMIT Family Medicine; ATTEND Family Medicine
DX: L03.032 Cellulitis of left toe (principal); N18.6 End stage renal disease; E10.52 Type 1 diabetes mellitus with diabetic peripheral angiopathy with gangrene; I12.0 Hypertensive chronic kidney disease with stage 5 chronic kidney disease or end stage renal disease; E10.42 Type 1 diabetes mellitus with diabetic polyneuropathy; E10.65 Type 1 diabetes mellitus with hyperglycemia; E10.621 Type 1 diabetes mellitus with foot ulcer; E10.649 Type 1 diabetes mellitus with hypoglycemia without coma; E78.5 Hyperlipidemia, unspecified; E11.22 Type 2 diabetes mellitus with diabetic chronic kidney disease; D63.1 Anemia in chronic kidney disease; F12.90 Cannabis use, unspecified, uncomplicated; F17.210 Nicotine dependence, cigarettes, uncomplicated; G80.9 Cerebral palsy, unspecified; I35.1 Nonrheumatic aortic (valve) insufficiency; I73.9 Peripheral vascular disease, unspecified; J44.9 Chronic obstructive pulmonary disease, unspecified; L97.519 Non-pressure chronic ulcer of other part of right foot with unspecified severity; L97.529 Non-pressure chronic ulcer of other part of left foot with unspecified severity; Z59.0 Homelessness; Z79.4 Long term (current) use of insulin; Z79.899 Other long term (current) drug therapy; Z86.73 Personal history of transient ischemic attack (TIA), and cerebral infarction without residual deficits; Z99.2 Dependence on renal dialysis
CPT/HCPCS: 71010; 73630; 75635; 76937; 80048; 80053; 82948; 83880; 84100; 85025; 85652; 86140; 90935; 93005; 93306; 94640; J1650; J1815; J7613; Q9967

== ENCOUNTER 2017-07-09 15:01 | Inpatient (IN) | payer MEDICARE, MEDICAID ==
[~2017-07-09] VITALS: Ht 180.3 cm; Wt 68.6 kg
[~2017-07-09 15:01] MED LIST changes: +DULO1CAP2 PO; -GABA100C4 PO; -LANTINJ SQ; +LEVEMIR SQ; -LISI10TA3 PO; -LYRI50CA PO; -NOVOLOGP2 SQ; +NOVOLOGSS SQ; +SYMB160A INH; +VITA100036 PO
[2017-07-09 15:07] VITALS: BP 157/78; PULSE 78; RESP 14; TEMP 98.4; O2SAT 98
--- NOTE | 2017-07-09 15:46 | PD ---
Physical Exam Date Seen by Provider: Jul 09, 2017 Time Seen by Provider: 15:45 Narrative 56 yo male here for evaluation of left leg wound. Has necrotic left 2nd toe. Had dialysis today and told to come here. DM and ESRD. Pain is 10/10. Follows with Dr Ortiz. No injuries. Going on for a few days. Vitals stable in triage. Awaiting Bed placement. Data Data Last Documented VS Vital Signs Date Time Temp Pulse Resp B/P (MAP) Pulse Ox O2 Delivery O2 Flow Rate FiO2 07/09/17 15:07 98.4 78 14 157/78 (104) 98 MDM Medical Record Reviewed: Yes Supervised Visit with HA: No Lambert Ness Jul 09, 2017 15:46
--- NOTE | 2017-07-09 16:22 | RADRPT ---
EXAM DATE/TIME: 07/09/2017 16:09 [facility] COMPARISON: No previous studies available for comparison. INDICATIONS : Left foot, 2nd digit pain and necrosis after stubbing toe. MEDICAL HISTORY : Diabetes mellitus type I. SURGICAL HISTORY : None. ENCOUNTER: Initial ACUITY: 2 weeks PAIN SCORE: 10/10 LOCATION: Left distal foot, 2nd digit. FINDINGS: Decreased bone density and vascular calcifications are noted. There is periosteal reaction at the tip of the second digit distal phalanx and a subtle nondisplaced fracture is identified as well as soft tissue emphysema. This is concerning for osteomyelitis and cellulitis. CONCLUSION: Distal phalanx fracture, periosteal reaction, subcutaneous emphysema second digit characteristic of o steomyelitis, and the possibility of infection with gas-forming organism should be excluded. There is also slight ulceration suspected dorsal tip second digit. Hoang Lynch MD on July 09, 2017 at 16:20 Board Certified Radiologist. This report was verified electronically.
[2017-07-09] MEDS ORDERED: VANCOMYCIN INJ 1,000 MG in SODIUM CHLOR 0.9% 250 ML INJ 250 ML IV ONE (16:45)
[2017-07-09] MEDS ORDERED: cefTRIAXone INJ 1,000 MG in SODIUM CHLORIDE 0.9% INJ 100 ML IV ONE (16:45)
--- NOTE | 2017-07-09 16:46 | PD ---
HPI Chief Complaint: Wound/Suture/Staple Re-Check Time Seen by Provider: 16:25 Travel History International Travel<30 days: No Contact w/Intl Traveler<30days: No Traveled to known affect area: No History of Present Illness HPI 56-year-old male presents to the emergency department for acute on chronic distal left 2nd toe wound. He was discharged 10 days ago from the hospital for this toe. Dr Galicia, vascular surgeon, recommended amputation of the toe but Dr. Garcia, circular stuffer, wanted him to follow up in 2 weeks for reevaulation instead. He has been followed closely by multiple physicians for his condition but has worsened over the weekend. He says he does not know why his toe has become more painful but is concerned that it is infected which is why he is here today. He has a history of renal failure on hemodialysis, COPD, and diabetes mellitus. He recently had a wound culture and he is not currently on antibiotics. He denies fevers, chills, shortness of breath, chest pain, or leg pain. PFSH Past Medical History Hx Anticoagulant Therapy: Yes Blood Disorders: No Heart Rhythm Problems: No Cancer: No Cardiovascular Problems: Yes High Cholesterol: No Chest Pain: No Congestive Heart Failure: No COPD: Yes (per md statement last admission) Diabetes: Yes Patient Takes Glucophage: No Dialysis: Yes (Sun) Diminished Hearing: No Endocrine: Yes Genitourinary: Yes (HD --MWF) Headaches: Yes Hypertension: Yes Immune Disorder: No Implanted Vascular Access Dvce: Yes Kidney Stones: No Musculoskeletal: Yes Neurologic: Yes (neuropathy) Psychiatric: No Reproductive: No Respiratory: Yes Immunizations Current: Yes Renal Failure: Yes (stage V) Thyroid Disease: No Influenza Vaccination: Yes Past Surgical History Arteriovenous Shunt: Yes (lue av fistula) Other Surgery: Yes (LT ARM FISTULA) Social History Alcohol Use: No Tobacco Use: Yes (10/17 ppd) Substance Use: No Allergies-Medications (Allergen,Severity, Reaction): Coded Allergies: No Known Allergies (Verified , 07/09/17) Reported Meds & Prescriptions Reported Meds & Active Scripts Active Levemir Inj (Insulin Detemir) 1,000 unit/ 10 ML Vial 5 Units SQ HS 30 Days Do not mix with any other Insulin. Levemir Inj (Insulin Detemir) 1,000 unit/ 10 ML Vial 10 Units SQ DAILYAC 30 Days Do not mix with any other Insulin. Symbicort Inh (Budesonide/Formoterol Fumarate) 160-4.5 Mcg/Act Aero 1 Puff INH Q12HR Novolog Inj (Insulin Aspart) 100 Unit/Ml Inj 5 Units SQ WITH MEALS [address] (Duloxetine HCl) 30 Mg Capdr 30 Mg PO DAILY Atorvastatin (Atorvastatin Calcium) 40 Mg Tab 40 Mg PO HS Reported Vitamin D3 (Cholecalciferol) 1,000 Unit Cap 1,000 Units PO DAILY Dialyvite 800/Zinc 15 (B-Complex W/ C-Zn & Folic Acid) 1 Tab 1 Tab DAILY Review of Systems Except as stated in HPI: all other systems reviewed are Neg Physical Exam Narrative 56-year-old female with left distal second toe pain for 3 days. GENERAL: Well-developed well-nourished in no apparent distress SKIN: Focused skin assessment warm/dry. Left second toe appears necrotic without exudate or active bleeding. No obvious lymphangitic Spread. No erythema or edema. HEAD: Atraumatic. Normocephalic. EYES: Pupils equal and round. No scleral icterus. No injection or drainage. ENT: No nasal bleeding or discharge. Mucous membranes pink and moist. NECK: Trachea midline. No JVD. CARDIOVASCULAR: Regular rate and rhythm. No murmur appreciated. RESPIRATORY: No accessory muscle use. Clear to auscultation. Breath sounds equal bilaterally. MUSCULOSKELETAL: No obvious deformities. No clubbing. No cyanosis. No edema. Left foot and toes have full ROM. NEUROLOGICAL: Awake and alert. No obvious cranial nerve deficits. Motor grossly within normal limits. Normal speech. PSYCHIATRIC: Appropriate mood and affect; insight and judgment normal. Data Data Last Documented VS Vital Signs Date Time Temp Pulse Resp B/P (MAP) Pulse Ox O2 Delivery O2 Flow Rate FiO2 07/09/17 15:07 98.4 78 14 157/78 (104) 98 Orders Orders Complete Blood Count With Diff (07/09/17 15:46) Comprehensive Metabolic Panel (07/09/17 15:46) Prothrombin Time / Inr (Pt) (07/09/17 15:46) Act Partial Throm Time (Ptt) (07/09/17 15:46) Toe (Min 2vws) (07/09/17 ) Lactic Acid (07/09/17 15:46) Vancomycin Inj (Vancomycin Inj) (07/09/17 16:45) Ceftriaxone Inj (Rocephin Inj) (07/09/17 16:45) Blood Culture (07/09/17 16:33) Consult Podiatry (07/09/17 ) Admit Order (Ed Use Only) (07/09/17 18:46) Labs Laboratory Tests Test 07/09/17 16:45 White Blood Count 9.4 TH/MM3 Red Blood Count 4.36 MIL/MM3 Hemoglobin 12.7 GM/DL Hematocrit 38.6 % Mean Corpuscular Volume 88.5 FL Mean Corpuscular Hemoglobin 29.1 PG Mean Corpuscular Hemoglobin Concent 32.9 % Red Cell Distribution Width 15.1 % Platelet Count 244 TH/MM3 Mean Platelet Volume 10.2 FL Neutrophils (%) (Auto) 63.3 % Lymphocytes (%) (Auto) 22.0 % Monocytes (%) (Auto) 7.3 % Eosinophils (%) (Auto) 5.4 % Basophils (%) (Auto) 2.0 % Neutrophils # (Auto) 5.9 TH/MM3 Lymphocytes # (Auto) 2.1 TH/MM3 Monocytes # (Auto) 0.7 TH/MM3 Eosinophils # (Auto) 0.5 TH/MM3 Basophils # (Auto) 0.2 TH/MM3 CBC Comment DIFF FINAL Differential Comment Prothrombin Time 10.8 SEC Prothromb Time International Ratio 1.0 RATIO Activated Partial Thromboplast Time 26.5 SEC Blood Urea Nitrogen 16 MG/DL Creatinine 6.32 MG/DL Random Glucose 255 MG/DL Total Protein 8.3 GM/DL Albumin 3.6 GM/DL Calcium Level 9.0 MG/DL Alkaline Phosphatase 142 U/L Aspartate Amino Transf (AST/SGOT) 46 U/L Alanine Aminotransferase (ALT/SGPT) 52 U/L Total Bilirubin 0.5 MG/DL Sodium Level 134 MEQ/L Potassium Level 3.5 MEQ/L Chloride Level 95 MEQ/L Carbon Dioxide Level 30.3 MEQ/L Anion Gap 9 MEQ/L Estimat Glomerular Filtration Rate 11 ML/MIN Lactic Acid Level 1.0 mmol/L [facility] Medical Decision Making Medical Screen Exam Complete: Yes Emergency Medical Condition: Yes Differential Diagnosis Left second toe pain versus osteomyelitis versus cellulitis Narrative Course 56-year-old male presents to the emergency department for acute on chronic distal left 2nd toe wound. He was discharged 10 days ago from the hospital for this toe. Dr Galicia, vascular surgeon, recommended amputation of the toe but Dr. Bustamante, circular stuffer wanted him to follow up in [address] Gómez is his primary care physician. He has been seen by multiple physicians for his condition but has worsened over the weekend. He says he does not know why his toe has become more painful but is concerned that it is infected which is why he is here today. He has a history of renal failure on hemodialysis, COPD, and diabetes mellitus. He recently had a wound culture and he is not currently on antibiotics. He denies fevers, chills , shortness of breath, chest pain, or leg pain. States he had dialysis this morning and regularly has HD MWF. Labs are stable with some chronic mild decreased Hgb & Hct. WBCs normal. X-ray demonstrates osteomyelitis. Recent wound culture at Dr. Bustamante's clinic demonstrated susceptibility to vancomycin and ceftriaxone. Vancomycin and ceftriaxone administered IV and the emergency department for osteomyelitis as demonstrated on x-ray. Will admit for osteomyelitis. Consulted with Dr Downing and he advised that Dr. Bustamante will follow up tomorrow for further treatment. He will be admitted to Dr. Jones's service Diagnosis Primary Impression: Osteomyelitis Qualified Codes: M86.172 - Other acute osteomyelitis, left ankle and foot Condition: Stable Rosy Vogt Jul 09, 2017 16:46
[2017-07-09 17:33] LABS: AUTOMATED NEUTROPHIL # 5.9 TH/MM3 (1.8-7.7); BASOPHIL # 0.2 TH/MM3 (0-0.2); EOSINOPHIL # 0.5 TH/MM3 (0-0.4); EOSINOPHIL % 5.4 % (0.0-4.0); HEMATOCRIT 38.6 % (39.0-51.0); HEMO FLAGS DIFF FINAL; LYMPHOCYTE # 2.1 TH/MM3 (1.0-4.8); MEAN CELL VOLUME 88.5 FL (80.0-100.0); MEAN CORPUSCULAR HEMOGLOBIN 29.1 PG (27.0-34.0); MEAN CORPUSCULAR HGB CONC 32.9 % (32.0-36.0); MONO % 7.3 % (0.0-8.0); NEUT % 63.3 % (16.0-70.0); PLATELET COUNT 244 TH/MM3 (150-450); RED BLOOD COUNT 4.36 MIL/MM3 (4.50-5.90); RED CELL DISTRIBUTION WIDTH 15.1 % (11.6-17.2); WHITE BLOOD COUNT 9.4 TH/MM3 (4.0-11.0)
[2017-07-09 17:49] LABS: APTT (PATIENT) 26.5 SEC (24.3-30.1); PROTHROMBIN TIME - PATIENT 10.8 SEC (9.8-11.6)
[2017-07-09 18:00] LABS: ALKALINE PHOSPHATASE 142 U/L (45-117); TOTAL BILIRUBIN ADULT 0.5 MG/DL (0.2-1.0)
[2017-07-09 18:04] LABS: ALT (GPT) 52 U/L (12-78); ANION GAP 9 MEQ/L (5-15); AST (GOT) 46 U/L (15-37); BICARBONATE 30.3 MEQ/L (21.0-32.0); BLOOD UREA NITROGEN 16 MG/DL (7-18); CHLORIDE 95 MEQ/L (98-107); GLOMERULAR FILTRATION RATE 11 ML/MIN (>89); POTASSIUM 3.5 MEQ/L (3.5-5.1); SODIUM (NA) 134 MEQ/L (136-145)
--- NOTE | 2017-07-09 19:44 | HHI.HP ---
HPI Service Family Medicine Primary Care Physician Unknown Admission Diagnosis Osteomyelitis, ESRD on HD Diagnoses: International Travel<30 Days: No Contact w/Intl Traveler<30days: No Known Affected Area: No History of Present Illness Patient is a 56-year-old Stateless male with past medical history significant for renal failure, on dialysis, insulin-dependent diabetes, hypertension, hyperlipidemia presenting due to severe pain and discoloration of his left second toe. PCP is Dr. Shah. He was discharged from the hospital about 9 days ago due to cellulitis of the same toe. He reports that pain has worsened significantly since he was discharged. He was seen by vascular surgery on Sunday and instructed to schedule follow-up appointment in [address] Bustamante last week in the ulceration of the left second toe was debrided, tissue and bone was sent for pathology and culture. He had dialysis today and his normal schedule is Sunday/Sunday/Sunday, 10-2PM. He uses 10 units of Lantus in the morning and 5 units of NovoLog with each meal in addition to a sliding scale. He reports that he has not been checking his blood sugars regularly and he has not used any sliding scale insulin recently. Review of Systems Constitutional: DENIES: Fever, Chills Eyes: DENIES: Vision loss Respiratory: DENIES: Shortness of breath Cardiovascular: DENIES: Chest pain Gastrointestinal: COMPLAINS OF: Constipation, DENIES: Black stools, Bloody stools, Diarrhea Genitourinary: DENIES: Urinary frequency Musculoskeletal: COMPLAINS OF: Joint pain, Muscle aches Integumentary: COMPLAINS OF: Abnormal pigmentation Hematologic/lymphatic: DENIES: Bruising Neurologic: COMPLAINS OF: Abnormal gait (Due to pain), Paresthesias (in hands) Past Family Social History Past Medical History Renal failure, on dialysis due to diabetes. Started 2013 on Dialysis , , Sunday. * AV fistula on left arm Diabetes Mellitus at age 22, possibly due to type 1 but patient is unsure HTN Anemia HLD COPD Past Surgical History AV fistula Reported Medications Reported Meds & Active Scripts Active Levemir Inj (Insulin Detemir) 1,000 unit/ 10 ML Vial 5 Units SQ HS 30 Days Do not mix with any other Insulin. Levemir Inj (Insulin Detemir) 1,000 unit/ 10 ML Vial 10 Units SQ DAILYAC 30 Days Do not mix with any other Insulin. Symbicort Inh (Budesonide/Formoterol Fumarate) 160-4.5 Mcg/Act Aero 1 Puff INH Q12HR Novolog Inj (Insulin Aspart) 100 Unit/Ml Inj 5 Units SQ WITH MEALS [address] (Duloxetine HCl) 30 Mg Capdr 30 Mg PO DAILY Atorvastatin (Atorvastatin Calcium) 40 Mg Tab 40 Mg PO HS Reported Vitamin D3 (Cholecalciferol) 1,000 Unit Cap 1,000 Units PO DAILY Dialyvite 800/Zinc 15 (B-Complex W/ C-Zn & Folic Acid) 1 Tab 1 Tab DAILY Allergies: Coded Allergies: No Known Allergies (Verified , 07/09/17) Family History Mother: from ovarian cancer Father: from heart disease. Had been on dialysis 2 brothers both have diabetes but late in their life Social History Home: Lives alone, concerned about being able to care for himself On disability due to dialysis Alcohol: None except for special occasions Smokin/3ppd for 30+yrs, decreased to 1-2cigs per day Illicit: Occasional marijuana use Physical Exam Vital Signs Vital Signs Date Time Temp Pulse Resp B/P (MAP) Pulse Ox O2 Delivery O2 Flow Rate FiO2 07/09/17 15:07 98.4 78 14 157/78 (104) 98 Physical Exam GENERAL: This is a well-nourished, well-developed patient, in no apparent distress. SKIN: No rashes. Cool and dry. HEAD: Atraumatic. Normocephalic. No temporal or scalp tenderness. EYES: Pupils equal round and reactive. Extraocular motions intact. No scleral icterus. No injection or drainage. ENT: Nose without bleeding, purulent drainage or septal hematoma. Throat without erythema, tonsillar hypertrophy or exudate. Uvula midline. Airway patent. NECK: Trachea midline. No JVD or lymphadenopathy. Supple, nontender, no meningeal signs. CARDIOVASCULAR: Regular rate and rhythm without 2/6 LINDA, ?radiation from fistula RESPIRATORY: Normal work of breathing, occasional expiratory wheezing of lower lung valdez GASTROINTESTINAL: Abdomen soft, non-tender, nondistended. No hepato-splenomegaly , or palpable masses. No guarding. MUSCULOSKELETAL: Necrosis of left second toe with discoloration extending from the tip of toe to posterior aspect to around the base. Healing ulcer of distal aspect of the right great toe. No calf tenderness. Negative Homans sign bilaterally. DP appreciated bilaterally NEUROLOGICAL: Awake and alert. Cranial nerves II through XII intact. Motor and sensory grossly within normal limits. Five out of 5 muscle strength in all muscle groups. Normal speech. Laboratory Laboratory Tests Test 07/09/17 16:45 White Blood Count 9.4 Red Blood Count 4.36 Hemoglobin 12.7 Hematocrit 38.6 Mean Corpuscular Volume 88.5 Mean Corpuscular Hemoglobin 29.1 Mean Corpuscular Hemoglobin Concent 32.9 Red Cell Distribution Width 15.1 Platelet Count 244 Mean Platelet Volume 10.2 Neutrophils (%) (Auto) 63.3 Lymphocytes (%) (Auto) 22.0 Monocytes (%) (Auto) 7.3 Eosinophils (%) (Auto) 5.4 Basophils (%) (Auto) 2.0 Neutrophils # (Auto) 5.9 Lymphocytes # (Auto) 2.1 Monocytes # (Auto) 0.7 Eosinophils # (Auto) 0.5 Basophils # (Auto) 0.2 CBC Comment DIFF FINAL Differential Comment Prothrombin Time 10.8 Prothromb Time International Ratio 1.0 Activated Partial Thromboplast Time 26.5 Blood Urea Nitrogen 16 Creatinine 6.32 Random Glucose 255 Total Protein 8.3 Albumin 3.6 Calcium Level 9.0 Alkaline Phosphatase 142 Aspartate Amino Transf (AST/SGOT) 46 Alanine Aminotransferase (ALT/SGPT) 52 Total Bilirubin 0.5 Sodium Level 134 Potassium Level 3.5 Chloride Level 95 Carbon Dioxide Level 30.3 Anion Gap 9 Estimat Glomerular Filtration Rate 11 Lactic Acid Level 1.0 Date/Time Source Procedure Growth Status 07/09/17 16:50 Blood Peripheral Aerobic Blood Culture Pending Received 07/09/17 16:50 Blood Peripheral Anaerobic Blood Culture Pending Received Result Diagram: 07/09/17 1645 07/09/17 1645 Imaging Last 24 hours Impressions Toe X-Ray 07/09/17 0000 Signed Impressions: Service Date/Time: Sunday, July 09, 2017 16:09 - CONCLUSION: Distal phalanx fracture, periosteal reaction, subcutaneous emphysema second digit characteristic of osteomyelitis, and the possibility of infection with gas-forming organism should be excluded. There is also slight ulceration suspected dorsal tip second digit. MD Bryon Kent VTE Risk Assessment Bryon VTE Risk Assessment: Mod/High Risk (score >= 2) VTE Pharm Contraindication: Postop bleeding Caprini Risk Assessment Model Point Value = 1 Point Value = 2 Point Value = 3 Point Value = 5 Age 41-60 Minor surgery BMI > 25 kg/m2 Swollen legs Varicose veins or History of unexplained or recurrent spontaneous Oral contraceptives or hormone replacement Sepsis (< 1 month) Serious lung disease, including pneumonia (< 1 month) Abnormal pulmonary function Acute myocardial infarction Congestive heart failure (< 1 month) History of inflammatory bowel disease Medical patient at bed rest Age 61-74 Arthroscopic surgery Major open surgery (> 45 min) Laparoscopic surgery (> 45 min) Malignancy Confined to bed (> 72 hours) Immobilizing plaster cast Central venous access Age >= 75 History of VTE Family history of VTE Factor V Leiden Prothrombin [id number] Lupus anticoagulant Anticardiolipin antibodies Elevated serum homocysteine Heparin-induced thrombocytopenia Other congenital or acquired thrombophilia Stroke (< 1 month) Elective arthroplasty Hip, pelvis, or leg fracture Acute spinal cord injury (< 1 month) Prophylaxis Regimen Total Risk Factor Score Risk Level Prophylaxis Regimen 0-1 Low Early ambulation 2 Moderate Order ONE of the following: *Sequential Compression Device (SCD) *Heparin 5000 units SQ BID 3-4 Higher Order ONE of the following medications: *Heparin 5000 units SQ TID *Enoxaparin/Lovenox 40 mg SQ daily (WT < 150 kg, CrCl > 30 mL/min) *Enoxaparin/Lovenox 30 mg SQ daily (WT < 150 kg, CrCl > 10-29 mL/min) *Enoxaparin/Lovenox 30 mg SQ BID (WT < 150 kg, CrCl > 30 mL/min) AND/OR *Sequential Compression Device (SCD) 5 or more Highest Order ONE of the following medications: *Heparin 5000 units SQ TID (Preferred with Epidurals) *Enoxaparin/Lovenox 40 mg SQ daily (WT < 150 kg, CrCl > 30 mL/min) *Enoxaparin/Lovenox 30 mg SQ daily (WT < 150 kg, CrCl > 10-29 mL/min) *Enoxaparin/Lovenox 30 mg SQ BID (WT < 150 kg, CrCl > 30 mL/min) AND *Sequential Compression Device (SCD) Assessment and Plan Assessment and Plan Patient is a 56-year-old Stateless male with past medical history significant for renal failure, on dialysis, insulin-dependent diabetes, hypertension, hyperlipidemia found to have osteomyelitis on toe x-ray of the left second digit. Code Status Full Discussed Condition With wdw Dr. Soni Problem List: (1) Osteomyelitis ICD Codes: M86.9 - Osteomyelitis, unspecified Status: Acute Plan: Toe x-ray significant for osteomyelitis of the left second digit. Patient is afebrile, lactic acid 1. White blood cell count within normal limits at 9.4. Blood cultures obtained, pending. During prior admission it was recommended that patient have amputation of the left second digit and that he will likely need a below the knee amputation in the future. -Vancomycin 1 g twice a day for gram-positive coverage, ciprofloxacin 400 mg IV BID for gram-positive coverage (including pseudomonas), doses to be renally adjusted by pharmacy and nephrology. -Podiatry consulted, appreciate recommendations -Consider ID consult regarding long-term antibiotic use if debridement/ amputation is not performed -Pain control with Republic 5-325 Q6H, lower dose due to poor renal function Imaging: Distal phalanx fracture, periosteal reaction subcutaneous emphysema of the second digit characteristic of osteomyelitis. Slight ulceration suspected of the dorsal tip of the second digit. Patient received 1 g of vancomycin 1, 1 g of Rocephin 1 in the ED (2) ESRD on hemodialysis ICD Codes: N18.6 - End stage renal disease; Z99.2 - Dependence on renal dialysis Status: Chronic Plan: On admission creatinine elevated to 6.32. Patient had hemodialysis today. He normally has hemodialysis on Sunday/Sunday/Sunday. Nephrology consulted to arrange dialysis, appreciate recommendations (3) Tobacco abuse ICD Codes: Z72.0 - Tobacco use Status: Chronic Plan: Patient endorses continued tobacco use, even though he is aware of the detrimental effects this has on his health He was counseled regarding cessation (4) HTN (hypertension) ICD Codes: I10 - Essential (primary) hypertension Status: Chronic Plan: Per review of EMR patient is reportedly on Metoprolol 25 mg daily, Lisinopril 10 mg daily. -On admission blood pressure 157/78 -Resume metoprolol 25 mg daily -Continue to monitor blood pressure, consider starting low-dose of lisinopril and gradually increasing if blood pressure is not well-controlled Permanent Comment: Dr. Rose - will do cardiac clearance. Last Edited By : Rosalio Cruz on May 10, 2015 14:46 (5) DM (diabetes mellitus) ICD Codes: E11.9 - Type 2 diabetes mellitus without complications Status: Acute Plan: Patient reports using 10 units of Lantus in the morning and 5 units of NovoLog with each meal as well as a sliding scale. He reports that he has not been checking his blood sugars at home regularly. Patient is currently nothing by mouth, low dose SSI. Resume Lantus once patient is on a regular diet -Diabetic education consulted (6) Dyslipidemia ICD Codes: E78.5 - Dyslipidemia Status: Acute Plan: No recent lipid profile available We'll check a lipid panel Continue with home atorvastatin (7) FEN/PPX Plan: Fluids: We'll hold fluids as patient with minimal urine output and on hemodialysis, consider very gentle hydration if patient to be NPO for prolonged period of time Electrolytes: Potassium within normal limits, continue to monitor electrolytes Nutrition: Nothing by mouth after midnight DVT PPX: We'll hold chemoprophylaxis at this time in anticipation of surgical procedure by podiatry tomorrow, SCDs Physician Certification 2 Midnight Certification Type: Admission for Inpatient Services Order for Inpatient Services The services are ordered in accordance with Medicare regulations or non- Medicare payer requirements, as applicable. In the case of services not specified as inpatient-only, they are appropriately provided as inpatient services in accordance with the 2-midnight benchmark. Estimated LOS (days): 3 3 days is the estimated time the patient will need to remain in the hospital, assuming treatment plan goals are met and no additional complications. Post-Hospital Plan: Not yet determined Problem Qualifiers (1) Osteomyelitis: Nkechi Baxter MD R3 Jul 09, 2017 19:44
[2017-07-09 20:00] VITALS: BP 153/69; PULSE 84; RESP 18; TEMP 98.7; O2SAT 94
[2017-07-09] MEDS ORDERED: ONDANSETRON HCL 4 MG/2 ML VIAL IVP PRN (20:15)
[2017-07-09] MEDS ORDERED: BISACODYL 10 MG SUPP RECTAL PRN (20:15)
[2017-07-09] MEDS ORDERED: GLUCAGON 1 MG/ML VIAL OTHER PRN (20:15)
[2017-07-09] MEDS ORDERED: SODIUM CHLORIDE 0.9% FLUSH 10 ML FLUSH IV FLUSH PRN (20:15)
[2017-07-09] MEDS ORDERED: NALOXONE HCL 0.4 MG/ML AMP IV PUSH PRN (20:15)
[2017-07-09] MEDS ORDERED: LACTULOSE SYRUP 20 GM/30 ML CUP PO PRN (20:15)
[2017-07-09] MEDS ORDERED: SENNOSIDES 8.6 MG TAB PO PRN (20:15)
[2017-07-09] MEDS ORDERED: MAGNESIUM HYDROXIDE SUSP 30 ML CUP PO PRN (20:15)
[2017-07-09] MEDS ORDERED: DEXTROSE 50% IN WATER 50 ML VIAL(D50) IV PUSH PRN (20:15)
[2017-07-09] MEDS: BUDESONIDE-FORMOTEROL 160/4.5 MCG INHALER INH SCH (21:00)
[2017-07-09] MEDS: ATORVASTATIN 40 MG TAB PO SCH (21:10)
[2017-07-09] MEDS: SODIUM CHLORIDE 0.9% FLUSH 10 ML FLUSH IV FLUSH SCH (21:10)
[2017-07-09] MEDS: DOCUSATE SODIUM 50 MG/SENNA 8.6 MG TAB PO SCH (21:10)
[2017-07-09] MEDS: INSULIN ASPART SUPPLEMENTAL SCALE SQ SCH (21:19)
[2017-07-09] MEDS ORDERED: RESP: ALBUTEROL 2.5 MG/IPRATROPIUM 0.5 MG NEB (PRN) NEB (21:45)
[2017-07-09] MEDS: CIPROFLOXACIN 400 MG PREMIX 200 ML IV SCH (22:24)
[2017-07-09] MEDS: ACETAMINOPHEN/HYDROcodone 325 MG/5 MG TAB PO PRN (22:25)
[2017-07-10] VITALS (8 sets, daily range): BP systolic 147–172; BP diastolic 70–86; PULSE 81–87; RESP 16–18; TEMP 96.2–98.6; O2SAT 95–100
[2017-07-10] MEDS ORDERED: VANCOMYCIN INJ 1,000 MG in SODIUM CHLOR 0.9% 250 ML INJ 250 ML IV SCH (04:45)
[2017-07-10] MEDS: ACETAMINOPHEN/HYDROcodone 325 MG/5 MG TAB PO PRN ×3 (06:00→22:35)
[2017-07-10 07:38] LABS: AUTOMATED NEUTROPHIL # 5.4 TH/MM3 (1.8-7.7); BASOPHIL # 0.1 TH/MM3 (0-0.2); BASOPHIL % 1.1 % (0.0-2.0); EOSINOPHIL # 0.5 TH/MM3 (0-0.4); EOSINOPHIL % 5.6 % (0.0-4.0); HEMATOCRIT 35.7 % (39.0-51.0); HEMO FLAGS DIFF FINAL; LYMPH % 18.2 % (9.0-44.0); LYMPHOCYTE # 1.5 TH/MM3 (1.0-4.8); MEAN CELL VOLUME 87.5 FL (80.0-100.0); MEAN CORPUSCULAR HEMOGLOBIN 28.9 PG (27.0-34.0); MEAN CORPUSCULAR HGB CONC 33.1 % (32.0-36.0); NEUT % 66.1 % (16.0-70.0); PLATELET COUNT 229 TH/MM3 (150-450); RED BLOOD COUNT 4.09 MIL/MM3 (4.50-5.90); RED CELL DISTRIBUTION WIDTH 15.4 % (11.6-17.2); WHITE BLOOD COUNT 8.2 TH/MM3 (4.0-11.0)
[2017-07-10] MEDS: INSULIN ASPART SUPPLEMENTAL SCALE SQ SCH ×4 (08:00→21:19)
[2017-07-10] MEDS: DULoxetine HCl DR 30 MG CAP PO SCH (08:16)
[2017-07-10] MEDS: METOPROLOL TARTRATE 25 MG TAB PO SCH (08:16)
[2017-07-10] MEDS: DOCUSATE SODIUM 50 MG/SENNA 8.6 MG TAB PO SCH ×2 (08:16→21:00)
[2017-07-10] MEDS: [UNRECOGNIZED DRUG - OTHER] PO SCH (08:21)
[2017-07-10] MEDS: SODIUM CHLORIDE 0.9% FLUSH 10 ML FLUSH IV FLUSH SCH ×2 (08:21→21:00)
[2017-07-10] MEDS: B COMPLEX PO SCH (08:21)
[2017-07-10] MEDS: FOLIC ACID PO SCH (08:21)
[2017-07-10] MEDS: BUDESONIDE-FORMOTEROL 160/4.5 MCG INHALER INH SCH ×2 (08:21→21:00)
[2017-07-10] MEDS: CHOLECALCIFEROL (VIT D3) 1000 UNIT TAB PO SCH (08:21)
[2017-07-10 08:50] LABS: ALKALINE PHOSPHATASE 113 U/L (45-117); ALT (GPT) 32 U/L (12-78); ANION GAP 9 MEQ/L (5-15); AST (GOT) 31 U/L (15-37); BICARBONATE 26.2 MEQ/L (21.0-32.0); BLOOD UREA NITROGEN 25 MG/DL (7-18); CHLORIDE 104 MEQ/L (98-107); GLOMERULAR FILTRATION RATE 8 ML/MIN (>89); LDL CHOLESTEROL 65 MG/DL (0-99); POTASSIUM 4.2 MEQ/L (3.5-5.1); SODIUM (NA) 139 MEQ/L (136-145); TOTAL BILIRUBIN ADULT 0.4 MG/DL (0.2-1.0)
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
--- NOTE | 2017-07-10 10:48 | HHI.FPPN ---
Addendum to progress note ADDENDUM Reason for addendum: Additonal documentation Additional information Patient called the office to notify me of his hospitalization and requested that I stop by. Went to see patient as a social encounter. Angella Shah MD, R3 Jul 10, 2017 10:48
--- NOTE | 2017-07-10 15:30 | PD.VS.PN ---
Subjective Subjective/Hospital Course Pt well known to me, and I saw him in clinic on Sunday for concerns of digit gangrene. He has ESRD, HTN. In clinic, he had toe tip gangrene but palpable PT and ABIs 1. Over week-end, toe more painful and was admitted to [place] for pain control. Toe worsened according to patient so I was consulted. Objective Vitals/I&O Date Time Temp Pulse Resp B/P (MAP) Pulse Ox O2 Delivery O2 Flow Rate FiO2 07/10/17 12:52 95 21 07/10/17 12:00 97.8 81 17 158/80 (106) 100 07/10/17 08:00 96.7 85 16 172/86 (114) 98 07/10/17 04:15 97.5 84 18 148/74 (98) 95 07/10/17 00:15 97.2 81 18 147/70 (95) 95 07/09/17 20:46 07/09/17 20:00 98.7 84 18 153/69 (97) 94 07/10/17 07/10/17 07/10/17 07:00 15:00 23:00 Intake Total 200 ml Balance 200 ml Physical Exam palpable L PT Toe gangrenous but no proximal erythema. Laboratory Laboratory Tests Test 07/09/17 16:45 07/10/17 06:51 White Blood Count 9.4 8.2 Red Blood Count 4.36 4.09 Hemoglobin 12.7 11.8 Hematocrit 38.6 35.7 Mean Corpuscular Volume 88.5 87.5 Mean Corpuscular Hemoglobin 29.1 28.9 Mean Corpuscular Hemoglobin Concent 32.9 33.1 Red Cell Distribution Width 15.1 15.4 Platelet Count 244 229 Mean Platelet Volume 10.2 10.0 Neutrophils (%) (Auto) 63.3 66.1 Lymphocytes (%) (Auto) 22.0 18.2 Monocytes (%) (Auto) 7.3 9.0 Eosinophils (%) (Auto) 5.4 5.6 Basophils (%) (Auto) 2.0 1.1 Neutrophils # (Auto) 5.9 5.4 Lymphocytes # (Auto) 2.1 1.5 Monocytes # (Auto) 0.7 0.7 Eosinophils # (Auto) 0.5 0.5 Basophils # (Auto) 0.2 0.1 CBC Comment DIFF FINAL DIFF FINAL Differential Comment Prothrombin Time 10.8 Prothromb Time International Ratio 1.0 Activated Partial Thromboplast Time 26.5 Blood Urea Nitrogen 16 25 Creatinine 6.32 8.07 Random Glucose 255 137 Total Protein 8.3 6.5 Albumin 3.6 2.8 Calcium Level 9.0 8.6 Alkaline Phosphatase 142 113 Aspartate Amino Transf (AST/SGOT) 46 31 Alanine Aminotransferase (ALT/SGPT) 52 32 Total Bilirubin 0.5 0.4 Sodium Level 134 139 Potassium Level 3.5 4.2 Chloride Level 95 104 Carbon Dioxide Level 30.3 26.2 Anion Gap 9 9 Estimat Glomerular Filtration Rate 11 8 Lactic Acid Level 1.0 Triglycerides Level 99 Cholesterol Level 139 LDL Cholesterol 65 HDL Cholesterol 54.0 Cholesterol/HDL Ratio 2.57 Date/Time Source Procedure Growth Status 07/09/17 16:50 Blood Peripheral Aerobic Blood Culture - Preliminary NO GROWTH IN 1 DAY Resulted 07/09/17 16:50 Blood Peripheral Anaerobic Blood Culture - Preliminary NO GROWTH IN 1 DAY Resulted Imaging Last 48 hours Impressions Toe X-Ray 07/09/17 0000 Signed Impressions: Service Date/Time: Sunday, July 09, 2017 16:09 - CONCLUSION: Distal phalanx fracture, periosteal reaction, subcutaneous emphysema second digit characteristic of osteomyelitis, and the possibility of infection with gas-forming organism should be excluded. There is also slight ulceration suspected dorsal tip second digit. Hoang Lynch MD Assessment and Plan Plan Toe gangrene, normal perfusion. Discussed toe amp with patient and will schedule for tomorrow (Sun). If wound doesn't heal, could have angio but I suspect will heal fine given palpable PT. Randy Ortiz MD FACS RPVI transferrer [facility] - [facility] V[facility] Surgery at [facility] [phone] Randy Ortiz MD Jul 10, 2017 15:30
[2017-07-10] MEDS: ATORVASTATIN 40 MG TAB PO SCH (21:00)
[2017-07-10] MEDS: CIPROFLOXACIN 400 MG PREMIX 200 ML IV SCH (21:21)
[2017-07-11] VITALS: BP 132/70; PULSE 73; RESP 16; TEMP 96.8; O2SAT 98
[2017-07-11] MEDS ORDERED: LACTATED RINGER'S 1000 ML IV PRN (04:30)
[2017-07-11] MEDS: BUDESONIDE-FORMOTEROL 160/4.5 MCG INHALER INH SCH ×2 (07:56→20:24)
[2017-07-11] MEDS: SODIUM CHLORIDE 0.9% FLUSH 10 ML FLUSH IV FLUSH SCH ×2 (07:57→20:24)
[2017-07-11] MEDS: CHOLECALCIFEROL (VIT D3) 1000 UNIT TAB PO SCH (07:58)
[2017-07-11] MEDS: DULoxetine HCl DR 30 MG CAP PO SCH (07:59)
[2017-07-11] MEDS: METOPROLOL TARTRATE 25 MG TAB PO SCH (07:59)
[2017-07-11] MEDS: DOCUSATE SODIUM 50 MG/SENNA 8.6 MG TAB PO SCH ×2 (07:59→20:23)
[2017-07-11 08:00] VITALS: BP 141/70; PULSE 86; RESP 16; TEMP 97; O2SAT 98
[2017-07-11] MEDS: INSULIN ASPART SUPPLEMENTAL SCALE SQ SCH ×3 (08:13→20:25)
[2017-07-11] MEDS: [UNRECOGNIZED DRUG - OTHER] PO SCH (08:16)
[2017-07-11] MEDS: FOLIC ACID PO SCH (08:16)
[2017-07-11] MEDS: B COMPLEX PO SCH (08:16)
[2017-07-11] MEDS ORDERED: SODIUM CHLOR 0.9% 1000 ML INJ 1,000 ML IV PRN (09:24)
[2017-07-11] MEDS ORDERED: SODIUM CHLOR 0.9% 1000 ML INJ 1,000 ML OTHER PRN ×2 (09:24)
[2017-07-11] MEDS ORDERED: diphenhydrAMINE HCL 25 MG CAP PO PRN (09:30)
[2017-07-11] MEDS ORDERED: SODIUM CHLORIDE 0.9% FLUSH 10 ML FLUSH IV FLUSH PRN (09:30)
[2017-07-11] MEDS ORDERED: ONDANSETRON HCL 4 MG/2 ML VIAL IV PUSH PRN (09:30)
[2017-07-11] MEDS ORDERED: ACETAMINOPHEN 325 MG TAB PO PRN (09:30)
[2017-07-11] MEDS ORDERED: ALBUMIN HUMAN 25% 25 GM/100 ML BAGP IV PRN (09:30)
[2017-07-11] MEDS ORDERED: GELATIN 12 MM/7 MM FOAM TOP PRN (09:30)
[2017-07-11] MEDS ORDERED: HEPARIN SODIUM - IV 10,000 UNITS/10 ML VIAL IV FLUSH PRN (09:30)
[2017-07-11] MEDS ORDERED: cloNIDine HCL 0.1 MG TAB PO PRN (09:30)
[2017-07-11] MEDS ORDERED: NITROGLYCERIN 0.4 MG SL 25 TABS/BTL SL PRN (09:30)
[2017-07-11] MEDS ORDERED: HEPARIN SODIUM - IV 10,000 UNITS/10 ML VIAL PRN (09:30)
[2017-07-11] MEDS ORDERED: GENTAMICIN SULFATE (DIALYSIS USE ONLY) 20 MG/2 ML VIAL OTHER PRN (09:30)
[2017-07-11] MEDS ORDERED: MANNITOL 12.5 GM/50 ML VIAL IV PRN (09:30)
--- NOTE | 2017-07-11 10:20 | HHI.FPPN ---
Subjective Remarks Patient seen and examined this morning. Afebrile vital signs stable. Understands the plan is to perform amputation of his second toe on the left foot at 1700 this evening. Anticipate dialysis this afternoon. Endorses: None Denies: Fever, chills, nausea, vomiting, shortness of breath, chest pain, headache, abdominal pain, calf pain All other review of symptoms were negative (Harley Soni MD, R3) Objective Vitals Vital Signs Date Time Temp Pulse Resp B/P (MAP) Pulse Ox O2 Delivery O2 Flow Rate FiO2 07/11/17 08:00 97.0 86 16 141/70 (93) 98 07/11/17 00:00 96.8 73 16 132/70 (90) 98 07/10/17 22:13 98 07/10/17 20:32 96.2 85 18 171/84 (113) 98 07/10/17 17:18 18 07/10/17 16:00 98.6 87 17 161/86 (111) 99 07/10/17 12:52 95 21 07/10/17 12:00 97.8 81 17 158/80 (106) 100 I/O 07/10/17 07/10/17 07/10/17 07/11/17 07/11/17 07/11/17 07:00 15:00 23:00 07:00 15:00 23:00 Intake Total 200 ml 720 ml 480 ml Balance 200 ml 720 ml 480 ml Intake Oral 720 ml 480 ml IV Total 200 ml # Voids 0 2 3 # Bowel Movements 1 1 (Harley Soni MD, R3) Result Diagram: 07/10/1751 07/10/17 0651 Objective Remarks GENERAL: This is a well-nourished, well-developed patient, in no apparent distress. Lying in bed comfortably SKIN: discrete hyperpigmented macules and papules mainly on anterior legs. Cool and dry. HEAD: Atraumatic. Normocephalic. EYES: Pupils equal round and reactive. Extraocular motions intact. No scleral icterus. No injection or drainage. ENT: Nose without bleeding, purulent drainage or septal hematoma. Airway patent. NECK: Trachea midline. No JVD or lymphadenopathy. Supple, nontender, no meningeal signs. CARDIOVASCULAR: Regular rate and rhythm with 2/6 LINDA RESPIRATORY: Clear to auscultation bilaterally GASTROINTESTINAL: Abdomen soft, non-tender, nondistended. No hepato-splenomegaly , or palpable masses. No guarding. MUSCULOSKELETAL: Necrosis of left second toe with discoloration extending from the tip of toe to posterior aspect to around the base. Healing ulcer of distal aspect of the right great toe. No calf tenderness. Negative Homans sign bilaterally. DP appreciated bilaterally NEUROLOGICAL: Awake and alert. (Harley Soni MD, R3) A/P Assessment and Plan Patient is a 56-year-old male with past medical history significant for renal failure, on dialysis, insulin-dependent diabetes, hypertension, hyperlipidemia found to have osteomyelitis on toe x-ray of the left second digit. Discharge Planning Discharge: pending resolution of his osteomyelitis. pt prefers rehab WD: Dr. Armijo (Harley Soni MD, R3) Attending Attestation Patient not seen and examined. He was in surgery and unable to see him today. Case reviewed and discussed with the resident team. Agree with plan of care as discussed with me and documented in the resident note. concern about hypoglycemia on occasion so will give him some food in dialysis as he is going there immediately after surgery (Jasmyne Armijo MD) Problem List: (1) Osteomyelitis ICD Codes: M86.9 - Osteomyelitis, unspecified Status: Acute Plan: Toe x-ray significant for osteomyelitis of the left second digit. -Vancomycin 1 g twice a day for gram-positive coverage, ciprofloxacin 400 mg IV BID for gram-positive coverage (including pseudomonas), doses to be renally adjusted by pharmacy and nephrology. -Podiatry consulted, appreciate recommendations -Vascular surgery consulted, recommended amputation of the left second toe -Consider ID consult regarding long-term antibiotic use if debridement/ amputation is not performed or residual osteomyelitis -Pain control with [place] 5-325 Q6H, lower dose due to poor renal function Imaging: Distal phalanx fracture, periosteal reaction subcutaneous emphysema of the second digit characteristic of osteomyelitis. Slight ulceration suspected of the dorsal tip of the second digit. (2) ESRD on hemodialysis ICD Codes: N18.6 - End stage renal disease; Z99.2 - Dependence on renal dialysis Status: Chronic Plan: On admission creatinine elevated to 6.32. Patient had hemodialysis today. He normally has hemodialysis on Sunday/Sunday/Sunday. Nephrology consulted to arrange dialysis, appreciate recommendations (3) Tobacco abuse ICD Codes: Z72.0 - Tobacco use Status: Chronic Plan: Patient endorses continued tobacco use, even though he is aware of the detrimental effects this has on his health He was counseled regarding cessation * Nicotine patch ordered (4) HTN (hypertension) ICD Codes: I10 - Essential (primary) hypertension Status: Chronic Plan: Per review of EMR patient is reportedly on Metoprolol 25 mg daily, Lisinopril 10 mg daily. -On admission blood pressure 157/78 -Resume metoprolol 25 mg daily -Continue to monitor blood pressure, consider starting low-dose of lisinopril and gradually increasing if blood pressure is not well-controlled Permanent Comment: Dr. Rose - will do cardiac clearance. Last Edited By : Rosalio Cruz on May 10, 2015 14:46 (5) DM (diabetes mellitus) ICD Codes: E11.9 - Type 2 diabetes mellitus without complications Status: Acute Plan: Patient reports using 10 units of Lantus in the morning and 5 units of NovoLog with each meal as well as a sliding scale. He reports that he has not been checking his blood sugars at home regularly. Patient is currently nothing by mouth. Resume Lantus and insulin sliding scale once patient has started renal diet following surgery -Diabetic education consulted (6) Dyslipidemia ICD Codes: E78.5 - Dyslipidemia Status: Acute Plan: Cholesterol within normal limits stable at this time with home medication Continue with home atorvastatin (7) FEN/PPX Plan: Fluids: LR at 30mls/hr Electrolytes: Potassium within normal limits, continue to monitor electrolytes Nutrition: Nothing by mouth after midnight, start renal diet following surgery this evening DVT PPX: SCDs, chemotherapy prophylaxis being held due to surgery (Harley Soni MD, R3) Problem Qualifiers (1) Osteomyelitis: (2) HTN (hypertension): Qualified Codes: I15.0 - Renovascular hypertension (3) DM (diabetes mellitus): Qualified Codes: E11.22 - Type 2 diabetes mellitus with diabetic chronic kidney disease; N18.6 - End stage renal disease; Z99.2 - Dependence on renal dialysis Harley Soni MD, R3 Jul 11, 2017 10:20 Jasmyne Armijo MD Jul 11, 2017 12:42
[2017-07-11] MEDS ORDERED: FAMOTIDINE 20 MG/2 ML VIAL ONE (10:48)
[2017-07-11] MEDS ORDERED: VANCOMYCIN HCL 1000 MG VIAL ONE (11:07)
[2017-07-11] MEDS ORDERED: BUPIVACAINE HCL PF 0.5% 30 ML VIAL ONE (11:08)
[2017-07-11] MEDS ORDERED: SODIUM CHLOR 0.9% 250 ML INJ 250 ML ONE (11:08)
--- NOTE | 2017-07-11 11:28 | HHI.PR ---
Immediate Post Op Note Procedure Date: Jul 11, 2017 Pre Op Diagnosis: L 2nd toe osteo Post Op Diagnosis: L 2nd toe osteo Surgeon: Randy Ortiz Candle Maker(s): Bhavin Robins MS4 Procedure: Open Ray amputation of L 2nd toe Findings: no infection; minimal bleeding Additional Information: if it doesn't heal, will perform angiogram to augment perfusion Complications: none Specimen(s) removed: L 2nd toe Estimated blood loss: 5mL Anesthesia: LMA Drains: None Fluids: 250mL IVF Patient to: PACU Date/Time of Procedure: SEE SURGICAL CARE RECORD Randy Ortiz MD Jul 11, 2017 11:28
--- NOTE | 2017-07-11 11:42 | MP ---
cc: RANDY ORTIZ MD DATE OF SURGERY: 07/11/2017 PREOPERATIVE DIAGNOSIS 1. Left second toe osteomyelitis. 2. Diabetes. POSTOPERATIVE DIAGNOSIS 1. Left second toe osteomyelitis. 2. Diabetes. PROCEDURE Open ray amputation of left second toe. ATTENDING SURGEON Randy Ortiz. ANESTHETIC ASSISTANT SURGEON Debora Robins MS IV. ANESTHESIA LMA. INDICATION Mr. Aguilera is a 56-year-old gentleman with diabetes and end-stage renal disease. He has an osteomyelitic left second toe and palpable posterior tibial pulse. He is taken to the operating room for a toe amputation. DESCRIPTION OF PROCEDURE Informed consent was obtained from the patient. He was taken to the operating room and placed supine on the operating table. An appropriate timeout was taken to ensure the patient's identity, operative site and planned procedure. A gram of vancomycin was initiated prior to skin incision and will be discontinued after the single preoperative dose. Vam9 was chosen because of the patient's end-stage renal disease. Everyone in the room agreed with the timeout and we proceeded. The left foot was prepped and draped. An incision was made around the base of the left second toe, carried down to the subcutaneous tissue with electrocautery. The metatarsophalangeal joint space was entered and the toe was amputated without difficulty. The metatarsal head was then resected with a rongeur. Minimal bleeding was encountered but no purulence was encountered. The wound was irrigated, infiltrated with Marcaine and wrapped with Kerlix. There were no complications. I was present and scrubbed for the entire procedure. Randy Ortiz MD RJF/GORDY /11:30 AM /11:32 AM
[2017-07-11] MEDS ORDERED: DO NOT ADM ANY ANTICOAGULANT DRUGS PRN (11:47)
[2017-07-11 12:00] VITALS: BP 131/68; PULSE 68; RESP 17; TEMP 96.7; O2SAT 98
[2017-07-11] MEDS ORDERED: INSULIN ASPART SUPPLEMENTAL SCALE ONE (12:00)
[2017-07-11] MEDS ORDERED: SODIUM CHLOR 0.9% 250 ML INJ 250 ML IV ONE (12:00)
[2017-07-11] MEDS ORDERED: ePHEDrine/NS 25 MG/5 ML SYR IV ONE (12:00)
[2017-07-11] MEDS ORDERED: PROPOFOL 200 MG/20 ML AMP IV ONE (12:00)
[2017-07-11] MEDS ORDERED: GLYCOPYRROLATE 1 MG/5 ML SYRINGE IV PUSH ONE (12:00)
[2017-07-11] MEDS ORDERED: PHENYLEPH/NS 1000 MCG/10 ML SYR IV ONE (12:00)
[2017-07-11] MEDS ORDERED: LIDOCAINE HCL 1% PF 5 ML AMPULE OTHER ONE (12:00)
[2017-07-11] MEDS: NICOTINE 21 MG/24 HR PATCH T-DERMAL SCH (12:45)
--- NOTE | 2017-07-11 15:38 | PD.CONS ---
HPI Service Nephrology Consult Requested By Reason for Consult ESRD on HD Primary Care Physician Unknown History of Present Illness This is a 56 y/o AAM dialysis patient who came in under the advise of his vascular surgeon for left second toe pain and discoloration. He was seen a few weeks ago for the same. He had amputation of the digit earlier today, tolerated the procedure well. Culture was sent and is pending. He is seen during dialysis today, typical MWF HD, has not missed treatments. Other PMH of DM I, HTN, metabolic bone disorder. He tells me is homeless, has no where to go after discharge. He is a full code. (Jasmyne Bee) Review of Systems Constitutional: COMPLAINS OF: Fatigue, Change in appetite Musculoskeletal: COMPLAINS OF: Back pain Integumentary: COMPLAINS OF: Abnormal pigmentation (Jasmyne Bee) Past Family Social History Allergies: Coded Allergies: No Known Allergies (Verified , 07/09/17) Past Medical History ESRD on HD TTS HTN hyperlipidemia anemia DM I metabolic bone disorder Past Surgical History LUE AVF Reported Medications Levemir Inj (Insulin Detemir) 1,000 unit/ 10 ML Vial 5 Units SQ HS 30 Days Do not mix with any other Insulin. Levemir Inj (Insulin Detemir) 1,000 unit/ 10 ML Vial 10 Units SQ DAILYAC 30 Days Do not mix with any other Insulin. Symbicort Inh (Budesonide/Formoterol Fumarate) 160-4.5 Mcg/Act Aero 1 Puff INH Q12HR Novolog Inj (Insulin Aspart) 100 Unit/Ml Inj 5 Units SQ WITH MEALS [address] (Duloxetine HCl) 30 Mg Capdr 30 Mg PO DAILY Atorvastatin (Atorvastatin Calcium) 40 Mg Tab 40 Mg PO HS Reported Vitamin D3 (Cholecalciferol) 1,000 Unit Cap 1,000 Units PO DAILY Dialyvite 800/Zinc 15 (B-Complex W/ C-Zn & Folic Acid) 1 Tab 1 Tab DAILY Active Ordered Medications Current Medications Medications (Trade) Dose Ordered Sig/April Route Start Time Stop Time Status Last Admin (NS Flush) 2 ml UNSCH PRN IV FLUSH 07/09/17 20:15 (NS Flush) 2 ml BID IV FLUSH 07/09/17 21:00 07/11/17 07:57 (Zofran Inj) 4 mg Q6H PRN IVP 07/09/17 20:15 (Narcan Inj) 0.4 mg UNSCH PRN IV PUSH 07/09/17 20:15 (Odette-Colace) 1 tab BID PO 07/09/17 21:00 07/10/17 08:16 (Milk Of Magnesia Liq) 30 ml Q12H PRN PO 07/09/17 20:15 (Senokot) 17.2 mg Q12H PRN PO 07/09/17 20:15 (Dulcolax Supp) 10 mg DAILY PRN RECTAL 07/09/17 20:15 (Lactulose Liq) 30 ml DAILY PRN PO 07/09/17 20:15 (Lipitor) 40 mg HS PO 07/09/17 21:00 07/10/17 21:00 (Symbicort 160-4.5 Inh) 1 puff Q12HR INH 07/09/17 21:00 07/10/17 08:21 (Vitamin D3) 1,000 units DAILY PO 07/10/17 09:00 07/11/17 07:58 (Cymbalta Dr) 30 mg DAILY PO 07/10/17 09:00 07/11/17 07:59 Patient Own Medication PT OWN MED: NON-FORMULARY D... DAILY PO 07/10/17 09:00 (D50w (Vial) Inj) 50 ml UNSCH PRN IV PUSH 07/09/17 20:15 (Glucagon Inj) 1 mg UNSCH PRN OTHER 07/09/17 20:15 (NovoLOG SUPPLEMENTAL SCALE) 1 ACHS SLIDING SCALE SQ 07/09/17 21:00 Future Hold 07/11/17 08:13 (Duoneb Neb) 1 ampule Q4HR NEB PRN NEB 07/09/17 21:45 ([place] 5-325 Mg) 1 tab Q6H PRN PO 07/09/17 21:45 07/10/17 22:35 Ciprofloxacin/ Dextrose 200 ml @ 200 mls/hr Q24H IV 07/09/17 22:00 07/10/17 21:21 (Lopressor) 25 mg DAILY PO 07/10/17 09:00 07/11/17 07:59 Lactated Ringer's 1,000 ml @ 30 mls/hr Q24H PRN IV 07/11/17 04:30 07/14/17 04:29 Sodium Chloride 1,000 ml @ 0 mls/hr Q0M PRN OTHER 07/11/17 09:24 (Heparin Inj) 8,000 units UNSCH PRN IV FLUSH 07/11/17 09:30 Sodium Chloride 1,000 ml @ 200 mls/hr Q5H PRN IV 07/11/17 09:24 Sodium Chloride 1,000 ml @ 0 mls/hr Q0M PRN OTHER 07/11/17 09:24 (Mannitol Inj) 12.5 gm UNSCH PRN IV 07/11/17 09:30 (Albumin 25% Inj) 25 gm UNSCH PRN IV 07/11/17 09:30 (NS Flush) 5 ml UNSCH PRN IV FLUSH 07/11/17 09:30 (Heparin Inj) UNSCH PRN .XX 07/11/17 09:30 (Gentamicin (Dialysis) Inj) 20 mg UNSCH PRN OTHER 07/11/17 09:30 (Zofran Inj) 4 mg UNSCH PRN IV PUSH 07/11/17 09:30 (Tylenol) 650 mg UNSCH PRN PO 07/11/17 09:30 (Benadryl) 25 mg UNSCH PRN PO 07/11/17 09:30 (Nitrostat Sl) 0.4 mg UNSCH PRN SL 07/11/17 09:30 (Catapres) 0.1 mg UNSCH PRN PO 07/11/17 09:30 (Gelfoam 12 Mm/7 Mm Top) 1 foam UNSCH PRN TOP 07/11/17 09:30 (Habitrol 21 Mg Patch.24 Hr) 1 patch DAILY T-DERMAL 07/11/17 10:15 Miscellaneous Information 1 HS T-DERMAL 07/11/17 21:00 Miscellaneous Information ALL NURSING DEPARTME... UNSCH PRN .XX 07/11/17 11:47 07/12/17 11:46 Family History No hx of renal disorders Social History He lives alone, intermittently homeless denies tobacco or ETOH use no family support functionally independent at times full code (Jasmyne Bee) Physical Exam Vital Signs Vital Signs Date Time Temp Pulse Resp B/P (MAP) Pulse Ox O2 Delivery O2 Flow Rate FiO2 07/11/17 12:30 71 16 137/67 (90) 100 Room Air 07/11/17 12:15 72 16 128/63 (84) 99 Room Air 07/11/17 12:00 96.7 68 17 131/68 (89) 98 07/11/17 12:00 74 16 124/65 (84) 100 Room Air 07/11/17 11:45 73 16 120/64 (82) 100 Room Air 07/11/17 11:43 97.8 72 15 116/58 (77) 99 Nasal Cannula 2 07/11/17 08:00 97.0 86 16 141/70 (93) 98 07/11/17 00:00 96.8 73 16 132/70 (90) 98 07/10/17 22:13 98 07/10/17 20:32 96.2 85 18 171/84 (113) 98 07/10/17 17:18 18 07/10/17 16:00 98.6 87 17 161/86 (111) 99 Physical Exam young AAM sitting up awake, alert, oriented x 3, receiving dialysis S1/S2, RRR, no murmurs or rubs lungs clear in all [place] abdomen soft, non tender, non distended ext: no edema; LUE AVF,accessed for HD left foot, s/p 2nd toe amputation; dressing in place; Laboratory Date/Time Source Procedure Growth Status 07/09/17 16:50 Blood Peripheral Aerobic Blood Culture - Preliminary NO GROWTH IN 2 DAYS Resulted 07/09/17 16:50 Blood Peripheral Anaerobic Blood Culture - Preliminary NO GROWTH IN 2 DAYS Resulted (Jasmyne Bee) Result Diagram: 07/10/17 0651 07/10/17 0651 Imaging Last Impressions Toe X-Ray 07/09/17 0000 Signed Impressions: Service Date/Time: Sunday, July 09, 2017 16:09 - CONCLUSION: Distal phalanx fracture, periosteal reaction, subcutaneous emphysema second digit characteristic of osteomyelitis, and the possibility of infection with gas-forming organism should be excluded. There is also slight ulceration suspected dorsal tip second digit. Hoang Lynch MD (Jasmyne Bee) Assessment and Plan Problem List: (1) ESRD (end stage renal disease) ICD Codes: N18.6 - End-stage renal disease Status: Acute Plan: Seen today on dialysis on a 3K, 300 BFR, goal 3L Resume MWF HD schedule He has functioning fistula for dialysis High protein diet discussed. Supplement ordered. Obtain intermittent renal panel. Avoid IVF. (2) HTN (hypertension) ICD Codes: I10 - Essential (primary) hypertension Status: Chronic Plan: Resume antihypertensives with hold parameters. Permanent Comment: Last Edited By: Jasmyne Bee on Jul 11, 2017 15:31 (3) DM (diabetes mellitus) ICD Codes: E11.9 - Type 2 diabetes mellitus without complications Status: Chronic Plan: He is a brittle diabetic. Continue insulin therapy, follow glucose. (4) Osteomyelitis ICD Codes: M86.9 - Osteomyelitis, unspecified Status: Acute Plan: s/p amputation, continue wound care vascular following specimen sent to pathology he may need rehab after discharge. (5) Anemia ICD Codes: D64.9 - Anemia, unspecified Plan: Epogen not required Follow Hemoglobin. (Jasmyne Bee) Assessment and Plan patient was seen and examined. Agree with above assessment and plan. (Maurice Schultz MD) Problem Qualifiers (1) HTN (hypertension): Qualified Codes: I15.0 - Renovascular hypertension (2) DM (diabetes mellitus): Qualified Codes: E11.22 - Type 2 diabetes mellitus with diabetic chronic kidney disease; N18.6 - End stage renal disease; Z99.2 - Dependence on renal dialysis (3) Osteomyelitis: Qualified Codes: M86.172 - Other acute osteomyelitis, left ankle and foot Jasmyne Bee Jul 11, 2017 15:38 Maurice Schultz MD Jul 12, 2017 17:41
[2017-07-11 20:00] VITALS: BP 145/65; PULSE 77; RESP 17; TEMP 97.5; O2SAT 99
[2017-07-11] MEDS: ATORVASTATIN 40 MG TAB PO SCH (20:23)
[2017-07-11] MEDS: CIPROFLOXACIN 400 MG PREMIX 200 ML IV SCH (20:23)
[2017-07-11] MEDS ORDERED: REMOVE OLD PATCH T-DERMAL SCH (21:00)
[2017-07-12] VITALS (7 sets, daily range): BP systolic 131–161; BP diastolic 61–76; PULSE 69–94; RESP 16–18; TEMP 96.2–98.3; O2SAT 97–99
[2017-07-12] MEDS: INSULIN ASPART SUPPLEMENTAL SCALE SQ SCH ×4 (07:46→20:35)
[2017-07-12] MEDS: INSULIN DETEMIR 100 UNITS/ML VIAL SQ SCH (08:15)
[2017-07-12] MEDS ORDERED: MORPHINE SULFATE 4 MG/ML INJ IV PUSH PRN (08:45)
[2017-07-12] MEDS: METOPROLOL TARTRATE 25 MG TAB PO SCH (08:55)
[2017-07-12] MEDS: DULoxetine HCl DR 30 MG CAP PO SCH (08:55)
[2017-07-12] MEDS: CHOLECALCIFEROL (VIT D3) 1000 UNIT TAB PO SCH (08:55)
[2017-07-12] MEDS: NICOTINE 21 MG/24 HR PATCH T-DERMAL SCH (08:56)
[2017-07-12] MEDS: BUDESONIDE-FORMOTEROL 160/4.5 MCG INHALER INH SCH ×2 (08:56→20:39)
[2017-07-12] MEDS: FOLIC ACID PO SCH (08:56)
[2017-07-12] MEDS: DOCUSATE SODIUM 50 MG/SENNA 8.6 MG TAB PO SCH ×2 (08:56→20:39)
[2017-07-12] MEDS: [UNRECOGNIZED DRUG - OTHER] PO SCH (08:56)
[2017-07-12] MEDS: B COMPLEX PO SCH (08:56)
[2017-07-12] MEDS: ACETAMINOPHEN/HYDROcodone 325 MG/5 MG TAB PO PRN ×3 (08:57→20:34)
[2017-07-12] MEDS: SODIUM CHLORIDE 0.9% FLUSH 10 ML FLUSH IV FLUSH SCH ×2 (09:00→20:39)
--- NOTE | 2017-07-12 10:40 | HHI.FPPN ---
Subjective Remarks Patient seen and examined this morning. Afebrile vital signs stable. Postop day 1 for open ray amputation of left second toe. He reports that he is in pain and is requesting some increased pain medications. Have agreed to start him with morphine. Also he is concerned that his blood sugar was very elevated. Reports that he is not having much less diet is not eating and is concerned as to why is still high. Informed that could be postinfectious and postsurgical. Have started him back on his long-acting insulin will continue the short-acting insulin. He is in agreement with this plan Endorses: Pain at incision site of left second toe Denies: Fever, chills, nausea, vomiting, shortness of breath, chest pain, headache, abdominal pain, calf pain All other review of symptoms were negative (Harley Soni MD, R3) Objective Vitals Vital Signs Date Time Temp Pulse Resp B/P (MAP) Pulse Ox O2 Delivery O2 Flow Rate FiO2 07/12/17 09:01 97 07/12/17 08:00 97.6 94 18 161/73 (102) 99 07/12/17 04:00 97.2 86 18 153/69 (97) 99 07/12/17 00:00 98.3 79 16 155/76 (102) 99 07/11/17 20:00 97.5 77 17 145/65 (91) 99 07/11/17 12:30 71 16 137/67 (90) 100 Room Air 07/11/17 12:15 72 16 128/63 (84) 99 Room Air 07/11/17 12:00 96.7 68 17 131/68 (89) 98 07/11/17 12:00 74 16 124/65 (84) 100 Room Air 07/11/17 11:45 73 16 120/64 (82) 100 Room Air 07/11/17 11:43 97.8 72 15 116/58 (77) 99 Nasal Cannula 2 I/O 07/11/17 07/11/17 07/11/17 07/12/17 07/12/17 07/12/17 07:00 15:00 23:00 07:00 15:00 23:00 Intake Total 480 ml 200 ml 920 ml 360 ml Output Total 10 ml 3000 ml Balance 480 ml 190 ml -2080 ml 360 ml Intake Oral 480 ml 720 ml 360 ml IV Total 200 ml Other 200 ml Output Hemodialysis 3000 ml Estimated Blood Loss 10 ml # Voids 3 1 0 1 # Bowel Movements 1 0 (Harley Soni MD, R3) Result Diagram: 07/10/1765007/10/17650 Objective Remarks GENERAL: This is a well-nourished, well-developed patient, in no apparent distress. Lying in bed comfortably SKIN: discrete hyperpigmented macules and papules mainly on anterior legs. Cool and dry. HEAD: Atraumatic. Normocephalic. EYES: Pupils equal round and reactive. Extraocular motions intact. No scleral icterus. No injection or drainage. ENT: Nose without bleeding, purulent drainage or septal hematoma. Airway patent. NECK: Trachea midline. No JVD or lymphadenopathy. Supple, nontender, no meningeal signs. CARDIOVASCULAR: Regular rate and rhythm with 2/6 LINDA RESPIRATORY: Clear to auscultation bilaterally GASTROINTESTINAL: Abdomen soft, non-tender, nondistended. No hepato-splenomegaly , or palpable masses. No guarding. MUSCULOSKELETAL: Left foot is wrapped in a bandage area of incision is clean dry and intact NEUROLOGICAL: Awake and alert. Procedures Status post open ray amputation of left second toe Medications and IVs Current Medications Medications (Trade) Dose Ordered Sig/April Route Start Time Stop Time Status Last Admin (NS Flush) 2 ml UNSCH PRN IV FLUSH 07/09/17 20:15 (NS Flush) 2 ml BID IV FLUSH 07/09/17 21:00 07/11/17 20:24 (Zofran Inj) 4 mg Q6H PRN IVP 07/09/17 20:15 07/12/17 08:56 (Narcan Inj) 0.4 mg UNSCH PRN IV PUSH 07/09/17 20:15 (Odette-Colace) 1 tab BID PO 07/09/17 21:00 07/10/17 08:16 (Milk Of Magnesia Liq) 30 ml Q12H PRN PO 07/09/17 20:15 (Senokot) 17.2 mg Q12H PRN PO 07/09/17 20:15 (Dulcolax Supp) 10 mg DAILY PRN RECTAL 07/09/17 20:15 (Lactulose Liq) 30 ml DAILY PRN PO 07/09/17 20:15 (Lipitor) 40 mg HS PO 07/09/17 21:00 07/11/17 20:23 (Symbicort 160-4.5 Inh) 1 puff Q12HR INH 07/09/17 21:00 07/10/17 08:21 (Vitamin D3) 1,000 units DAILY PO 07/10/17 09:00 07/12/17 08:55 (Cymbalta Dr) 30 mg DAILY PO 07/10/17 09:00 07/12/17 08:55 Patient Own Medication PT OWN MED: NON-FORMULARY D... DAILY PO 07/10/17 09:00 (D50w (Vial) Inj) 50 ml UNSCH PRN IV PUSH 07/09/17 20:15 (Glucagon Inj) 1 mg UNSCH PRN OTHER 07/09/17 20:15 (Duoneb Neb) 1 ampule Q4HR NEB PRN NEB 07/09/17 21:45 Ciprofloxacin/ Dextrose 200 ml @ 200 mls/hr Q24H IV 07/09/17 22:00 07/11/17 20:23 (Lopressor) 25 mg DAILY PO 07/10/17 09:00 07/12/17 08:55 Lactated Ringer's 1,000 ml @ 30 mls/hr Q24H PRN IV 07/11/17 04:30 07/14/17 04:29 Sodium Chloride 1,000 ml @ 0 mls/hr Q0M PRN OTHER 07/11/17 09:24 (Heparin Inj) 8,000 units UNSCH PRN IV FLUSH 07/11/17 09:30 Sodium Chloride 1,000 ml @ 200 mls/hr Q5H PRN IV 07/11/17 09:24 Sodium Chloride 1,000 ml @ 0 mls/hr Q0M PRN OTHER 07/11/17 09:24 (Mannitol Inj) 12.5 gm UNSCH PRN IV 07/11/17 09:30 (Albumin 25% Inj) 25 gm UNSCH PRN IV 07/11/17 09:30 (NS Flush) 5 ml UNSCH PRN IV FLUSH 07/11/17 09:30 (Heparin Inj) UNSCH PRN .XX 07/11/17 09:30 (Gentamicin (Dialysis) Inj) 20 mg UNSCH PRN OTHER 07/11/17 09:30 (Zofran Inj) 4 mg UNSCH PRN IV PUSH 07/11/17 09:30 (Tylenol) 650 mg UNSCH PRN PO 07/11/17 09:30 (Benadryl) 25 mg UNSCH PRN PO 07/11/17 09:30 (Nitrostat Sl) 0.4 mg UNSCH PRN SL 07/11/17 09:30 (Catapres) 0.1 mg UNSCH PRN PO 07/11/17 09:30 (Gelfoam 12 Mm/7 Mm Top) 1 foam UNSCH PRN TOP 07/11/17 09:30 (Habitrol 21 Mg Patch.24 Hr) 1 patch DAILY T-DERMAL 07/11/17 10:15 Miscellaneous Information 1 HS T-DERMAL 07/11/17 21:00 Miscellaneous Information ALL NURSING DEPARTME... UNSCH PRN .XX 07/11/17 11:47 07/12/17 11:46 (NovoLOG SUPPLEMENTAL SCALE) 1 ACHS SLIDING SCALE SQ 07/11/17 17:00 07/12/17 07:46 (Levemir Inj) 10 units DAILYAC SQ 07/12/17 08:15 07/12/17 08:15 ([place] 5-325 Mg) 1 tab Q4HR PRN PO 07/12/17 08:45 07/12/17 08:57 (Morphine Inj) 2 mg Q3H PRN IV PUSH 07/12/17 08:45 (Levemir Inj) 5 units HS SQ 07/12/17 21:00 (Harley Soni MD, R3) A/P Assessment and Plan Patient is a 56-year-old male with past medical history significant for renal failure, on dialysis, insulin-dependent diabetes, hypertension, hyperlipidemia found to have osteomyelitis on toe x-ray of the left second digit. Patient is status post open ray left second toe amputation on 07/11/17. Discharge Planning Discharge: pending resolution of his osteomyelitis. pt prefers rehab WD: Dr. Armijo (Harley Soni MD, R3) Attending Attestation Patient seen and examined. Case reviewed and discussed with the resident team. Agree with plan of care as discussed with me and documented in the resident note. He was still in pain when I saw him this am. will try out the iv low dose morphine and see if that is adequate. (Jasmyne Armijo MD) Problem List: (1) Osteomyelitis ICD Codes: M86.9 - Osteomyelitis, unspecified Status: Acute Plan: Toe x-ray significant for osteomyelitis of the left second digit. -Status post open ray amputation of left second toe -Awaiting results of pathology to determine need for further antibiotics -Vancomycin 1 g twice a day for gram-positive coverage, ciprofloxacin 400 mg IV BID for gram-positive coverage (including pseudomonas), doses to be renally adjusted by pharmacy and nephrology. -Podiatry consulted, appreciate recommendations -Vascular surgery consulted, recommended amputation of the left second toe -Consider ID consult regarding long-term antibiotic use if debridement/ amputation is not performed or residual osteomyelitis -Pain control with [place] 5-325 Q6H and morphine 2 mg every 3 hours for breakthrough Imaging: Distal phalanx fracture, periosteal reaction subcutaneous emphysema of the second digit characteristic of osteomyelitis. Slight ulceration suspected of the dorsal tip of the second digit. (2) ESRD on hemodialysis ICD Codes: N18.6 - End stage renal disease; Z99.2 - Dependence on renal dialysis Status: Chronic Plan: He normally has hemodialysis on Sunday/Sunday/Sunday. Nephrology consulted to arrange dialysis, appreciate recommendations (3) Tobacco abuse ICD Codes: Z72.0 - Tobacco use Status: Chronic Plan: Patient endorses continued tobacco use, even though he is aware of the detrimental effects this has on his health He was counseled regarding cessation * Nicotine patch ordered (4) HTN (hypertension) ICD Codes: I10 - Essential (primary) hypertension Status: Chronic Plan: Per review of EMR patient is reportedly on Metoprolol 25 mg daily, Lisinopril 10 mg daily. -On admission blood pressure 157/78 -Resume metoprolol 25 mg daily -Continue to monitor blood pressure, consider starting low-dose of lisinopril and gradually increasing if blood pressure is not well-controlled Permanent Comment: Last Edited By: Jasmyne Bee on Jul 11, 2017 15:31 (5) DM (diabetes mellitus) ICD Codes: E11.9 - Type 2 diabetes mellitus without complications Status: Acute Plan: Patient's bedside glucoses ranging between 237-578 -Resumed Levemir 10 units in the morning, 5 units at night -Continue insulin sliding scale -Diabetic education consulted (6) Dyslipidemia ICD Codes: E78.5 - Dyslipidemia Status: Acute Plan: Cholesterol within normal limits stable at this time with home medication Continue with home atorvastatin (7) FEN/PPX Plan: Fluids: By mouth intake Electrolytes: Potassium within normal limits, continue to monitor electrolytes Nutrition: Renal diet DVT PPX: SCDs, heparin 5000 units every 8 (Harley Soni MD, R3) Problem Qualifiers (1) Osteomyelitis: (2) HTN (hypertension): Qualified Codes: I15.0 - Renovascular hypertension (3) DM (diabetes mellitus): Qualified Codes: E11.22 - Type 2 diabetes mellitus with diabetic chronic kidney disease; N18.6 - End stage renal disease; Z99.2 - Dependence on renal dialysis Harley Soni MD, R3 Jul 12, 2017 10:40 Jasmyne Armijo MD Jul 12, 2017 11:26
--- NOTE | 2017-07-12 11:47 | PD.VS.PN ---
Subjective POD #: 1 Procedure(s): Open Ray amputation of L 2nd toe Subjective/Hospital Course Afebrile 56/M Pt alert in NAD Dressing to LEFT foot c/d/i Pain controlled Objective Vitals/I&O Date Time Temp Pulse Resp B/P (MAP) Pulse Ox O2 Delivery O2 Flow Rate FiO2 07/12/17 09:01 97 07/12/17 08:00 97.6 94 18 161/73 (102) 99 07/12/17 04:00 97.2 86 18 153/69 (97) 99 07/12/17 00:00 98.3 79 16 155/76 (102) 99 07/11/17 20:00 97.5 77 17 145/65 (91) 99 07/11/17 12:30 71 16 137/67 (90) 100 Room Air 07/11/17 12:15 72 16 128/63 (84) 99 Room Air 07/11/17 12:00 96.7 68 17 131/68 (89) 98 07/11/17 12:00 74 16 124/65 (84) 100 Room Air 07/11/17 11:45 73 16 120/64 (82) 100 Room Air 07/11/17 11:43 97.8 72 15 116/58 (77) 99 Nasal Cannula 2 07/12/17 07/12/17 07/12/17 07:00 15:00 23:00 Intake Total 360 ml Balance 360 ml Exam: GENERAL: A&Ox3,GCS15,NAD SKIN: Warm and dry Open Ray amputation of L 2nd toe with red colored tissue and mild sanguineous drainage CARDIOVASCULAR: +S1,S2 RESPIRATORY: No accessory muscle use. MUSCULOSKELETAL: No cyanosis, or edema. palpable L DP/PT LE warm w/motor intact Laboratory Date/Time Source Procedure Growth Status 07/09/17 16:50 Blood Peripheral Aerobic Blood Culture - Preliminary NO GROWTH IN 3 DAYS Resulted 07/09/17 16:50 Blood Peripheral Anaerobic Blood Culture - Preliminary NO GROWTH IN 3 DAYS Resulted Assessment and Plan Assessment: (1) End stage renal disease Status: Chronic (2) Gangrene Status: Acute (3) DM (diabetes mellitus) Status: Chronic (4) PAD (peripheral artery disease) Status: Chronic Plan 56/M with a hx of L 2nd toe dry gangrene/ normal perfusion Pt s/p open Ray amputation of L 2nd toe-POD1 doing well If wound doesn't heal, could have angio but suspect he will heal fine given palpable DP/PT Plan Continue daily dressing changes as ordered Ordered post op shoe- Use with ambulation and transfers Alba GOMEZ [facility] [phone] Problem Qualifiers (1) DM (diabetes mellitus): Qualified Codes: E11.22 - Type 2 diabetes mellitus with diabetic chronic kidney disease; N18.6 - End stage renal disease; Z99.2 - Dependence on renal dialysis Alba Allen Jul 12, 2017 11:47
--- NOTE | 2017-07-12 14:21 | HHI.NPPN ---
Subjective Renal Failure: Chronic, End Stage Renal Disease Interval History Dialyzed yesterday without incident. Minor pain at amputation site. (Jasmyne Bee) Review of Systems Musculoskeletal MS: Pain/Stiffness (Jasmyne Bee) Objective Data Data Vital Signs Date Time Temp Pulse Resp B/P (MAP) Pulse Ox O2 Delivery O2 Flow Rate FiO2 07/12/17 12:00 98.0 73 18 141/65 (90) 97 07/12/17 09:01 97 07/12/17 08:00 97.6 94 18 161/73 (102) 99 07/12/17 04:00 97.2 86 18 153/69 (97) 99 07/12/17 00:00 98.3 79 16 155/76 (102) 99 07/11/17 20:00 97.5 77 17 145/65 (91) 99 (Jasmyne Bee) -: 07/10/17 0651 07/10/17 0651 Physical Exam General Appearance: Well Developed, Well Nourished, No Acute Distress, Comfortable (Jasmyne Bee) Eyes Eye Exam: Pupils Equal (Jasmyne Bee) Throat Throat Exam: Oral Mucosa [place] & Moist (Jasmyne Bee) Pulmonary Resp Exam: Clear Bilaterally, Breath Sounds Equal (Jasmyne Bee) Cardiology CV Exam: Regular, Normal Sinus Rhythm (Jasmyne Bee) Gastrointestinal/Abdomen GI Exam: Soft, Non-Tender, Bowel Sounds Present (Jasmyne Bee) Musculoskeletal MS Exam: Joints Intact, Normal Gait, Normal Tone, Good Strength MS Remarks s/p left second digit amputation (Jasmyne Bee) Integumentary Skin Exam: Warm, Dry (Jasmyne Bee) Extremeties Extremities Exam: No Edema, Pedal Pulses Palpable Extremeties Remarks left arm, + thrill/bruit (Jasmyne Bee) Neurologic Neuro Exam: Alert, Awake, Oriented, Speech Clear, Moving All Extremities (Jasmyne Bee) Psychiatric Psych Exam: Appropriate Responses (Jasmyne Bee) Assessment/Plan Discussed Condition With: Patient Assessment Summary: Hypertension, Diabetes Mellitus, End Stage Renal Disease Problem List: (1) ESRD (end stage renal disease) ICD Codes: N18.6 - End-stage renal disease Status: Acute Plan: 3L UF yesterday, continue MWF HD schedule He has functioning fistula for dialysis High protein diet discussed. Supplement ordered. Obtain intermittent renal panel. Avoid IVF. (2) HTN (hypertension) ICD Codes: I10 - Essential (primary) hypertension Status: Chronic Plan: Resume antihypertensives with hold parameters. Permanent Comment: Last Edited By: Jasmyne Bee on Jul 11, 2017 15:31 (3) DM (diabetes mellitus) ICD Codes: E11.9 - Type 2 diabetes mellitus without complications Status: Chronic Plan: He is a brittle diabetic. Continue insulin therapy, follow glucose. (4) Osteomyelitis ICD Codes: M86.9 - Osteomyelitis, unspecified Status: Acute Plan: s/p amputation, continue wound care vascular following specimen sent to pathology he may need rehab after discharge. (5) Anemia ICD Codes: D64.9 - Anemia, unspecified Plan: Epogen not required Follow Hemoglobin. (Jasmyne Bee) Plan patient was seen and examined. Agree with above assessment and plan. (Maurice Schultz MD) Problem Qualifiers (1) HTN (hypertension): Qualified Codes: I15.0 - Renovascular hypertension (2) DM (diabetes mellitus): Qualified Codes: E11.22 - Type 2 diabetes mellitus with diabetic chronic kidney disease; N18.6 - End stage renal disease; Z99.2 - Dependence on renal dialysis (3) Osteomyelitis: Qualified Codes: M86.172 - Other acute osteomyelitis, left ankle and foot Jasmyne Bee Jul 12, 2017 14:20 Maurice Schultz MD Jul 12, 2017 17:46
[2017-07-12] MEDS: HEPARIN SODIUM - SQ 10,000 UNITS/ML VIAL SQ SCH ×2 (14:38→20:34)
[2017-07-12] MEDS: SEVELAMER CARBONATE 800 MG TAB PO SCH (17:36)
[2017-07-12] MEDS: ATORVASTATIN 40 MG TAB PO SCH (20:33)
[2017-07-12] MEDS ORDERED: INSULIN DETEMIR 100 UNITS/ML VIAL SQ SCH (21:00)
[2017-07-13 00:11] VITALS: BP 123/58; PULSE 71; RESP 18; TEMP 97; O2SAT 97
[2017-07-13 05:41] LABS: BICARBONATE 27.7 MEQ/L (21.0-32.0); POTASSIUM 3.8 MEQ/L (3.5-5.1)
[2017-07-13] MEDS: ACETAMINOPHEN/HYDROcodone 325 MG/5 MG TAB PO PRN ×2 (05:56→13:48)
[2017-07-13] MEDS: HEPARIN SODIUM - SQ 10,000 UNITS/ML VIAL SQ SCH ×2 (05:56→13:41)
--- NOTE | 2017-07-13 07:59 | PD.VS.PN ---
Subjective POD #: 2 Procedure(s): Open Ray amputation of L 2nd toe Subjective/Hospital Course pain controlled notes pain improved since pre-op Objective Vitals/I&O Date Time Temp Pulse Resp B/P (MAP) Pulse Ox O2 Delivery O2 Flow Rate FiO2 07/13/17 00:11 97.0 71 18 123/58 (79) 97 07/12/17 20:00 97.0 73 18 131/61 (84) 97 07/12/17 16:00 96.2 69 18 147/73 (97) 98 07/12/17 12:00 98.0 73 18 141/65 (90) 97 07/12/17 09:01 97 07/12/17 08:00 97.6 94 18 161/73 (102) 99 Exam: L toe wound with decent granulation tissue no erythema and only serous drainage Laboratory Laboratory Tests Test 07/13/17 04:28 Blood Urea Nitrogen 44 Creatinine 10.99 Random Glucose 230 Albumin 3.0 Calcium Level 8.6 Phosphorus Level 8.4 Sodium Level 134 Potassium Level 3.8 Chloride Level 93 Carbon Dioxide Level 27.7 Anion Gap 13 Estimat Glomerular Filtration Rate 6 Date/Time Source Procedure Growth Status 07/09/17 16:50 Blood Peripheral Aerobic Blood Culture - Preliminary NO GROWTH IN 3 DAYS Resulted 07/09/17 16:50 Blood Peripheral Anaerobic Blood Culture - Preliminary NO GROWTH IN 3 DAYS Resulted Assessment and Plan Assessment: (1) End stage renal disease Status: Chronic (2) Gangrene Status: Acute (3) DM (diabetes mellitus) Status: Chronic (4) PAD (peripheral artery disease) Status: Chronic Plan toe amp looks good continue BID W to D dressings ok to d/c whenever and will f/u in my clinic in 1 week. ambulate and WBAT Problem Qualifiers (1) DM (diabetes mellitus): Qualified Codes: E11.22 - Type 2 diabetes mellitus with diabetic chronic kidney disease; N18.6 - End stage renal disease; Z99.2 - Dependence on renal dialysis Randy Ortiz MD Jul 13, 2017 07:59
[2017-07-13 08:00] VITALS: BP 143/68; PULSE 70; RESP 18; TEMP 96.3; O2SAT 98
[2017-07-13] MEDS: SEVELAMER CARBONATE 800 MG TAB PO SCH (08:00)
[2017-07-13] MEDS: INSULIN ASPART SUPPLEMENTAL SCALE SQ SCH ×2 (08:04→13:46)
[2017-07-13] MEDS ORDERED: HYDR-3516 PO (08:44)
[2017-07-13] MEDS: BUDESONIDE-FORMOTEROL 160/4.5 MCG INHALER INH SCH (09:00)
[2017-07-13] MEDS: B COMPLEX PO SCH (09:00)
[2017-07-13] MEDS: DOCUSATE SODIUM 50 MG/SENNA 8.6 MG TAB PO SCH (09:00)
[2017-07-13] MEDS: SODIUM CHLORIDE 0.9% FLUSH 10 ML FLUSH IV FLUSH SCH (09:00)
[2017-07-13] MEDS: [UNRECOGNIZED DRUG - OTHER] PO SCH (09:00)
[2017-07-13] MEDS: FOLIC ACID PO SCH (09:00)
[2017-07-13] MEDS: NICOTINE 21 MG/24 HR PATCH T-DERMAL SCH (09:00)
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
--- NOTE | 2017-07-13 10:25 | HHI.DCPOC ---
Discharge Care Plan Diagnosis: (1) Diabetes mellitus with hyperglycemia (2) Dependent on hemodialysis (3) CKD (chronic kidney disease) stage V requiring chronic dialysis (4) Osteomyelitis (5) Ischemic ulcer diabetic foot Goals to Promote Your Health * To prevent worsening of your condition and complications * To maintain your health at the optimal level Directions to Meet Your Goals Take your medications as prescribed Follow your dietary instruction Follow activity as directed Keep your appointments as scheduled Take your immunizations and boosters as scheduled If your symptoms worsen call your PCP, if no PCP go to Urgent Care Center or Emergency Room Smoking is Dangerous to Your Health. Avoid second hand smoke Call the 24-hour hour crisis hotline for domestic abuse at Harley Soni MD, R3 Jul 13, 2017 10:25
--- NOTE | 2017-07-13 10:38 | HHI.FPPN ---
Subjective Remarks Patient seen and examined this morning. Afebrile vital signs stable. Patient is being taken for scheduled dialysis. He reports that he is looking forward to going to rehabilitation facility as she is afraid of going home and being homeless. Rehabilitation would work well for him to improve his overall balance and strength. Reports that his pain is well-controlled. Endorses: Mild pain at site of amputation of the second left toe Denies: Fever, chills, nausea, vomiting, shortness of breath, chest pain, headache, abdominal pain, calf pain All other review of symptoms were negative (Harley Soni MD, R3) Objective Vitals Vital Signs Date Time Temp Pulse Resp B/P (MAP) Pulse Ox O2 Delivery O2 Flow Rate FiO2 07/13/17 08:00 96.3 70 18 143/68 (93) 98 07/13/17 08:00 96.3 70 18 143/68 (93) 98 07/13/17 00:11 97.0 71 18 123/58 (79) 97 07/12/17 20:00 97.0 73 18 131/61 (84) 97 07/12/17 16:00 96.2 69 18 147/73 (97) 98 07/12/17 12:00 98.0 73 18 141/65 (90) 97 I/O 07/12/17 07/12/17 07/12/17 07/13/17 07/13/17 07/13/17 07:00 15:00 23:00 07:00 15:00 23:00 Intake Total 360 ml 960 ml 120 ml Balance 360 ml 960 ml 120 ml Intake Oral 360 ml 960 ml 120 ml # Voids 1 0 # Bowel Movements 0 (Harley Soni MD, R3) Result Diagram: 07/10/17 0651 07/13/17 0428 Imaging Last Impressions Toe X-Ray 07/09/17 0000 Signed Impressions: Service Date/Time: Sunday, July 09, 2017 16:09 - CONCLUSION: Distal phalanx fracture, periosteal reaction, subcutaneous emphysema second digit characteristic of osteomyelitis, and the possibility of infection with gas-forming organism should be excluded. There is also slight ulceration suspected dorsal tip second digit. Hoang Lynch MD Objective Remarks GENERAL: This is a well-nourished, well-developed patient, in no apparent distress. Lying in bed comfortably SKIN: discrete hyperpigmented macules and papules mainly on anterior legs. Cool and dry. HEAD: Atraumatic. Normocephalic. EYES: Pupils equal round and reactive. Extraocular motions intact. No scleral icterus. No injection or drainage. ENT: Nose without bleeding, purulent drainage or septal hematoma. Airway patent. NECK: Trachea midline. No JVD or lymphadenopathy. Supple, nontender, no meningeal signs. CARDIOVASCULAR: Regular rate and rhythm with 2/6 LINDA RESPIRATORY: Clear to auscultation bilaterally GASTROINTESTINAL: Abdomen soft, non-tender, nondistended. No hepato-splenomegaly , or palpable masses. No guarding. MUSCULOSKELETAL: Left foot is wrapped in a bandage area of incision is clean dry and intact NEUROLOGICAL: Awake and alert. Procedures Status post open ray amputation of left second toe Medications and IVs Current Medications Medications (Trade) Dose Ordered Sig/April Route Start Time Stop Time Status Last Admin (NS Flush) 2 ml UNSCH PRN IV FLUSH 07/09/17 20:15 (NS Flush) 2 ml BID IV FLUSH 07/09/17 21:00 07/12/17 20:39 (Zofran Inj) 4 mg Q6H PRN IVP 07/09/17 20:15 07/12/17 08:56 (Narcan Inj) 0.4 mg UNSCH PRN IV PUSH 07/09/17 20:15 ([place]ette-Colace) 1 tab BID PO 07/09/17 21:00 07/10/17 08:16 (Milk Of Magnesia Liq) 30 ml Q12H PRN PO 07/09/17 20:15 (Senokot) 17.2 mg Q12H PRN PO 07/09/17 20:15 (Dulcolax Supp) 10 mg DAILY PRN RECTAL 07/09/17 20:15 (Lactulose Liq) 30 ml DAILY PRN PO 07/09/17 20:15 (Lipitor) 40 mg HS PO 07/09/17 21:00 07/12/17 20:33 (Symbicort 160-4.5 Inh) 1 puff Q12HR INH 07/09/17 21:00 07/12/17 20:39 (Vitamin D3) 1,000 units DAILY PO 07/10/17 09:00 07/12/17 08:55 (Cymbalta Dr) 30 mg DAILY PO 07/10/17 09:00 07/12/17 08:55 Patient Own Medication PT OWN MED: NON-FORMULARY D... DAILY PO 07/10/17 09:00 (D50w (Vial) Inj) 50 ml UNSCH PRN IV PUSH 07/09/17 20:15 (Glucagon Inj) 1 mg UNSCH PRN OTHER 07/09/17 20:15 (Duoneb Neb) 1 ampule Q4HR NEB PRN NEB 07/09/17 21:45 Ciprofloxacin/ Dextrose 200 ml @ 200 mls/hr Q24H IV 07/09/17 22:00 07/11/17 20:23 (Lopressor) 25 mg DAILY PO 07/10/17 09:00 07/12/17 08:55 Lactated Ringer's 1,000 ml @ 30 mls/hr Q24H PRN IV 07/11/17 04:30 07/14/17 04:29 Sodium Chloride 1,000 ml @ 0 mls/hr Q0M PRN OTHER 07/11/17 09:24 (Heparin Inj) 8,000 units UNSCH PRN IV FLUSH 07/11/17 09:30 Sodium Chloride 1,000 ml @ 200 mls/hr Q5H PRN IV 07/11/17 09:24 Sodium Chloride 1,000 ml @ 0 mls/hr Q0M PRN OTHER 07/11/17 09:24 (Mannitol Inj) 12.5 gm UNSCH PRN IV 07/11/17 09:30 (Albumin 25% Inj) 25 gm UNSCH PRN IV 07/11/17 09:30 (NS Flush) 5 ml UNSCH PRN IV FLUSH 07/11/17 09:30 (Heparin Inj) UNSCH PRN .XX 07/11/17 09:30 (Gentamicin (Dialysis) Inj) 20 mg UNSCH PRN OTHER 07/11/17 09:30 (Zofran Inj) 4 mg UNSCH PRN IV PUSH 07/11/17 09:30 (Tylenol) 650 mg UNSCH PRN PO 07/11/17 09:30 (Benadryl) 25 mg UNSCH PRN PO 07/11/17 09:30 (Nitrostat Sl) 0.4 mg UNSCH PRN SL 07/11/17 09:30 (Catapres) 0.1 mg UNSCH PRN PO 07/11/17 09:30 (Gelfoam 12 Mm/7 Mm Top) 1 foam UNSCH PRN TOP 07/11/17 09:30 (Habitrol 21 Mg Patch.24 Hr) 1 patch DAILY T-DERMAL 07/11/17 10:15 Miscellaneous Information 1 HS T-DERMAL 07/11/17 21:00 (NovoLOG SUPPLEMENTAL SCALE) 1 ACHS SLIDING SCALE SQ 07/11/17 17:00 07/13/17 08:04 (Levemir Inj) 10 units DAILYAC SQ 07/12/17 08:15 07/12/17 08:15 ([place] 5-325 Mg) 1 tab Q4HR PRN PO 07/12/17 08:45 07/13/17 05:56 (Morphine Inj) 2 mg Q3H PRN IV PUSH 07/12/17 08:45 07/12/17 11:18 (Levemir Inj) 5 units HS SQ 07/12/17 21:00 07/12/17 20:35 (Heparin Inj) 5,000 units Q8HR SQ 07/12/17 14:00 07/13/17 05:56 (Renvela) 800 mg TIDAC PO 07/12/17 17:00 07/12/17 17:36 (Harley Soni MD, R3) A/P Assessment and Plan Patient is a 56-year-old male with past medical history significant for renal failure, on dialysis, insulin-dependent diabetes, hypertension, hyperlipidemia found to have osteomyelitis on toe x-ray of the left second digit. Patient is status post open ray left second toe amputation on 07/11/17. Discharge Planning Discharge: To rehabilitation facility placed WD: Dr. Armijo (Harley Soni MD, R3) Attending Attestation Patient seen and examined. Case reviewed and discussed with the resident team. Agree with plan of care as discussed with me and documented in the resident note. he will have a SNF placement as he has been so sick with his DM with hypo and hyper glycemia plus his toe. He was seen in dialysis and was doing well. (Jasmyne Armijo MD) Problem List: (1) Osteomyelitis ICD Codes: M86.9 - Osteomyelitis, unspecified Status: Acute Plan: Toe x-ray significant for osteomyelitis of the left second digit. -Status post open ray amputation of left second toe -Awaiting results of pathology to determine need for further antibiotics -Vancomycin 1 g twice a day for gram-positive coverage, ciprofloxacin 400 mg IV BID for gram-positive coverage (including pseudomonas), doses to be renally adjusted by pharmacy and nephrology. -Podiatry consulted, appreciate recommendations -Vascular surgery consulted, patient is cleared for discharge -Consider ID consult regarding long-term antibiotic use if debridement/ amputation is not performed or residual osteomyelitis -Pain control with [place] 5-325 Q6H and morphine 2 mg every 3 hours for breakthrough Imaging: Distal phalanx fracture, periosteal reaction subcutaneous emphysema of the second digit characteristic of osteomyelitis. Slight ulceration suspected of the dorsal tip of the second digit. (2) ESRD on hemodialysis ICD Codes: N18.6 - End stage renal disease; Z99.2 - Dependence on renal dialysis Status: Chronic Plan: He normally has hemodialysis on Sunday/Sunday/Sunday. Nephrology consulted to arrange dialysis, appreciate recommendations (3) Tobacco abuse ICD Codes: Z72.0 - Tobacco use Status: Chronic Plan: Patient endorses continued tobacco use, even though he is aware of the detrimental effects this has on his health He was counseled regarding cessation * Nicotine patch ordered (4) HTN (hypertension) ICD Codes: I10 - Essential (primary) hypertension Status: Chronic Plan: Per review of EMR patient is reportedly on Metoprolol 25 mg daily, Lisinopril 10 mg daily. -On admission blood pressure 157/78 -Resume metoprolol 25 mg daily -Continue to monitor blood pressure, consider starting low-dose of lisinopril and gradually increasing if blood pressure is not well-controlled Permanent Comment: Last Edited By: Jasmyne Bee on Jul 11, 2017 15:31 (5) DM (diabetes mellitus) ICD Codes: E11.9 - Type 2 diabetes mellitus without complications Status: Chronic Plan: Patient's bedside glucoses ranging between 237-578 -Resumed Levemir 10 units in the morning, 5 units at night -Continue insulin sliding scale -Diabetic education consulted (6) Dyslipidemia ICD Codes: E78.5 - Dyslipidemia Status: Acute Plan: Cholesterol within normal limits stable at this time with home medication Continue with home atorvastatin (7) FEN/PPX Plan: Fluids: By mouth intake Electrolytes: Potassium within normal limits, continue to monitor electrolytes Nutrition: Renal diet DVT PPX: SCDs, heparin 5000 units every 8 (Harley Soni MD, R3) Problem Qualifiers (1) Osteomyelitis: (2) HTN (hypertension): Qualified Codes: I15.0 - Renovascular hypertension Harley Soni MD, R3 Jul 13, 2017 10:38 Jasmyne Armijo MD Jul 13, 2017 12:06
--- NOTE | 2017-07-13 12:20 | HHI.NPPN ---
Subjective Renal Failure: Chronic, End Stage Renal Disease Interval History He is doing well. Just finished dialysis. Plan to go to rehab at discharge. (Jasmyne Bee) Review of Systems Musculoskeletal MS: Pain/Stiffness (Jasmyne Bee) Objective Data Data 07/13/17 07/14/17 19:00 07:00 Intake Total 120 ml Output Total 3000 ml Balance -2880 ml Intake Oral 120 ml Output Hemodialysis 3000 ml Vital Signs Date Time Temp Pulse Resp B/P (MAP) Pulse Ox O2 Delivery O2 Flow Rate FiO2 07/13/17 08:00 96.3 70 18 143/68 (93) 98 07/13/17 08:00 96.3 70 18 143/68 (93) 98 07/13/17 00:11 97.0 71 18 123/58 (79) 97 07/12/17 20:00 97.0 73 18 131/61 (84) 97 07/12/17 16:00 96.2 69 18 147/73 (97) 98 (Jasmyne Bee) -: 07/10/17 0651 07/13/17 0428 Physical Exam General Appearance: Well Developed, Well Nourished, No Acute Distress, Comfortable (Jasmyne Bee) Eyes Eye Exam: Pupils Equal (Jasmyne Bee) Throat Throat Exam: Oral Mucosa Alfred & Moist (Jasmyne Bee) Pulmonary Resp Exam: Clear Bilaterally, Breath Sounds Equal (Jasmyne Bee) Cardiology CV Exam: Regular, Normal Sinus Rhythm (Jasmyne Bee) Gastrointestinal/Abdomen GI Exam: Soft, Non-Tender, Bowel Sounds Present (Jasmyne Bee) Musculoskeletal MS Exam: Joints Intact, Normal Gait, Normal Tone, Good Strength MS Remarks s/p left second digit amputation (Jasmyne Bee) Integumentary Skin Exam: Warm, Dry (Jasmyne Bee) Extremeties Extremities Exam: No Edema, Pedal Pulses Palpable Extremeties Remarks left arm, + thrill/bruit (Jasmyne Bee) Neurologic Neuro Exam: Alert, Awake, Oriented, Speech Clear, Moving All Extremities (Jasmyne Bee) Psychiatric Psych Exam: Appropriate Responses (Jasmyne Bee) Assessment/Plan Discussed Condition With: Patient Assessment Summary: Hypertension, Diabetes Mellitus, End Stage Renal Disease Problem List: (1) ESRD (end stage renal disease) ICD Codes: N18.6 - End-stage renal disease Status: Acute Plan: continue MWF HD schedule Had 3L UF today, tolerated well. He has functioning fistula for dialysis High protein diet discussed. Supplement ordered. Obtain intermittent renal panel. Avoid IVF. Renvela dosage increased for hyperphosphatemia (2) HTN (hypertension) ICD Codes: I10 - Essential (primary) hypertension Status: Chronic Plan: Continue antihypertensives with hold parameters. Permanent Comment: Last Edited By: Jasmyne Bee on Jul 11, 2017 15:31 (3) DM (diabetes mellitus) ICD Codes: E11.9 - Type 2 diabetes mellitus without complications Status: Chronic Plan: He is a brittle diabetic. Continue insulin therapy, follow glucose. (4) Osteomyelitis ICD Codes: M86.9 - Osteomyelitis, unspecified Status: Acute Plan: s/p amputation, continue wound care vascular following specimen sent to pathology he may need rehab after discharge. (5) Anemia ICD Codes: D64.9 - Anemia, unspecified Plan: Epogen not required Follow Hemoglobin. (Jasmyne Bee) Problem List: (1) ESRD (end stage renal disease) ICD Codes: N18.6 - End-stage renal disease Status: Acute Plan: continue MWF HD schedule Had 3L UF today, tolerated well. He has functioning fistula for dialysis High protein diet discussed. Supplement ordered. Obtain intermittent renal panel. Avoid IVF. Renvela dosage increased for hyperphosphatemia (2) HTN (hypertension) ICD Codes: I10 - Essential (primary) hypertension Status: Chronic Plan: Continue antihypertensives with hold parameters. Permanent Comment: Last Edited By: Jasmyne Bee on Jul 11, 2017 15:31 (3) DM (diabetes mellitus) ICD Codes: E11.9 - Type 2 diabetes mellitus without complications Status: Chronic Plan: He is a brittle diabetic. Continue insulin therapy, follow glucose. (4) Osteomyelitis ICD Codes: M86.9 - Osteomyelitis, unspecified Status: Acute Plan: s/p amputation, continue wound care vascular following specimen sent to pathology he may need rehab after discharge. (5) Anemia ICD Codes: D64.9 - Anemia, unspecified Plan: Epogen not required Follow Hemoglobin. Plan patient was seen and examined. Agree with above assessment and plan. (Maurice Schultz MD) Problem Qualifiers (1) HTN (hypertension): Qualified Codes: I15.0 - Renovascular hypertension (2) Osteomyelitis: Qualified Codes: M86.172 - Other acute osteomyelitis, left ankle and foot CristalJasmyne mora Jul 13, 2017 12:20 Maurice Schultz MD Jul 13, 2017 14:11
[2017-07-13 13:00] VITALS: BP 171/73; PULSE 73; RESP 16; TEMP 96; O2SAT 97
[2017-07-13] MEDS: DULoxetine HCl DR 30 MG CAP PO SCH (13:33)
[2017-07-13] MEDS: CHOLECALCIFEROL (VIT D3) 1000 UNIT TAB PO SCH (13:34)
[2017-07-13] MEDS: METOPROLOL TARTRATE 25 MG TAB PO SCH (13:35)
[2017-07-13] MEDS: INSULIN DETEMIR 100 UNITS/ML VIAL SQ SCH (13:39)
[2017-07-13 14:40] VITALS: BP 151/70; PULSE 71; RESP 16; O2SAT 99
[2017-07-13] MEDS ORDERED: SEVELAMER CARBONATE 800 MG TAB PO SCH (17:00)
--- NOTE | 2017-07-14 10:58 | HHI.PR ---
Addendum to Inpatient Note Addendum Reason: Additional Documentation Additional Information Per vascular surgery and the path report, it showed clean, noninfected or inflamed area of bone remaining so no further abx needed. Jasmyne Armijo MD Jul 14, 2017 10:58
--- NOTE | 2017-07-17 09:53 | PQ ---
Physician Query Response Document PATIENT: KAMARI REYES : 1960 ADMIT DATE: 07/09/2017 6:49 PM DISCH DATE: 07/13/2017 2:54 PM RESPONDING PROVIDER #: Yessy QUERY TEXT: Conflicting Documentation Clarification A single mention or documentation of multiple diagnoses for the same clinical presentation appears in the record. Please clarify the diagnosis/diagnoses: Is Diabetes Mellitus type 1 or type 2? Please also document if the condition is: -- Confirmed and current -- Confirmed, treated and resolved -- Ruled out -- Other, please specify If you have any additional questions/comments and/or concerns, please do not hesitate to reach out to the CDI/Coding Hotline, Ext. [phone]. The patient's Clinical Indicators include: Discharge Summary - Discharge Care Plan documents: Diagnosis: (1) Diabetes mellitus with hyperglyc emia Discharge Summary with diagnosis of: ICD Codes: E11.9 - Type 2 diabetes mellitus without complication s. Status: Chronic H Renal failure, on dialysis due to diabetes. Started 2013 on Dialysis , , Sunday. * AV fi stula on left arm Diabetes Mellitus at age 22, possibly due to type 1 but patient is unsure. Assessment on same report documents: insulin-dependent diabetes H Consult by Dr. Schultz 07/11/17 documents: Other PMH of DM I. Same report under Assessment Permanent Comment: Last Edited By: Jasmyne Bee on Jul 11, 2017 15:31 (3) DM (diabetes mellitus) ICD Codes: E11.9 - Type 2 diabetes mellitus without complications Plan: He is a brittle diabetic. Continue insulin therapy, follow glucose. Query created by: Abby Chamberlain on 07/16/2017 1:39 PM RESPONSE TEXT: Mr Reyes has been insulin dependent since he was a teen and is a type one diabetic Electronically signed by: Jasmyne Armijo MD 07/17/2017 9:49 AM
== END 2017-07-13 14:54 | DRG 617 ==
LOC: NEPC 15:01 → NEDA 18:49 → N07A 20:49
PROVIDERS: ADMIT Family Medicine; ATTEND Family Medicine
PROC: 0Y6S0Z0 Detachment at Left 2nd Toe, Complete, Open Approach (ICD-10-PCS; principal; 2017-07-11 10:56)
PROC: 5A1D60Z (ICD-10-PCS; 2017-07-11 10:56)
DX: E10.69 Type 1 diabetes mellitus with other specified complication (principal); E10.52 Type 1 diabetes mellitus with diabetic peripheral angiopathy with gangrene; I12.0 Hypertensive chronic kidney disease with stage 5 chronic kidney disease or end stage renal disease; E10.22 Type 1 diabetes mellitus with diabetic chronic kidney disease; N18.6 End stage renal disease; M86.8X7 Other osteomyelitis, ankle and foot; M86.8X8 Other osteomyelitis, other site; E10.65 Type 1 diabetes mellitus with hyperglycemia; Z99.2 Dependence on renal dialysis; Z79.4 Long term (current) use of insulin; E78.5 Hyperlipidemia, unspecified; J44.9 Chronic obstructive pulmonary disease, unspecified; D64.9 Anemia, unspecified; F12.90 Cannabis use, unspecified, uncomplicated; F17.210 Nicotine dependence, cigarettes, uncomplicated; Z59.0 Homelessness; E83.39 Other disorders of phosphorus metabolism
CPT/HCPCS: 73660; 80053; 80061; 80069; 82948; 83605; 85025; 85610; 85730; 87040; 88305; 88311; 90935; 96365; 96367; J0696; J0744; J1644; J1815; J2270; J2370; J2405; J3010; J3370; J7050; L3260

== ENCOUNTER 2017-09-03 09:45 | Inpatient (IN) | payer MEDICARE, MEDICAID ==
[2017-09-03] VITALS (10 sets, daily range): BP systolic 123–186; BP diastolic 67–103; PULSE 78–99; RESP 18–20; TEMP 98.6–100.6; O2SAT 98
[~2017-09-03] VITALS: Ht 180.3 cm; Wt 60.3 kg
[~2017-09-03 09:45] MED LIST changes: +CHOL10008 PO; +HYDR-3516 PO; -METO25TA6 PO; -VITA100036 PO; -[UNRECOGNIZED DRUG - CODE] PO
[2017-09-03] MEDS ORDERED: VANCOMYCIN INJ 1,000 MG in SODIUM CHLOR 0.9% 250 ML INJ 250 ML IV STA (10:31)
--- NOTE | 2017-09-03 10:41 | PD ---
HPI Chief Complaint: Skin Problem Time Seen by Provider: 10:22 Travel History International Travel<30 days: No Contact w/Intl Traveler<30days: No Traveled to known affect area: No History of Present Illness HPI HAD AMPUTATION OF LEFT SECOND TOE (FOOT) BY DR CESILIA NICOLAS FIRST. NOW STARTED TO FEEL FOOT PAIN SHOOTING UP LEG, 7/10, FOR ABOUT LAST 6 DAYS AND NOW OVER THE LAST 2 DAYS NOTED REDNESS TO TOP OF FOOT ALONG WITH WARMTH TO AREA. DENIES ASSOC SYMPTOMS OF FEVER/N/V/D/CP/ABDPAIN/......DENIES AGGRAVATED/ALLEVIATING FACTORS PFSH Past Medical History Hx Anticoagulant Therapy: Yes Blood Disorders: No Heart Rhythm Problems: Yes (MURMUR) Cancer: No Cardiovascular Problems: Yes High Cholesterol: Yes Chest Pain: No Congestive Heart Failure: No COPD: Yes Diabetes: Yes Patient Takes Glucophage: No Dialysis: Yes (Sun) Diminished Hearing: No Endocrine: Yes Gastrointestinal Disorders: No Genitourinary: Yes (HD --MWF) Headaches: Yes Hypertension: Yes Immune Disorder: No Implanted Vascular Access Dvce: Yes Kidney Stones: No Musculoskeletal: Yes Neurologic: No Psychiatric: No Reproductive: No Respiratory: Yes Immunizations Current: Yes Renal Failure: Yes (stage V) Thyroid Disease: No Past Surgical History Arteriovenous Shunt: Yes (lue av fistula) Other Surgery: Yes (LT ARM FISTULA) Social History Alcohol Use: No Tobacco Use: Yes (10/17 ppd) Substance Use: No Allergies-Medications (Allergen,Severity, Reaction): Coded Allergies: No Known Allergies (Verified Allergy, Unknown, 09/03/17) Reported Meds & Prescriptions Reported Meds & Active Scripts Active Hydrocodone-Acetaminophen 5-325 mg Tab 1-2 Tab PO Q4HR PRN Levemir Inj (Insulin Detemir) 1,000 unit/ 10 ML Vial 5 Units SQ HS 30 Days Do not mix with any other Insulin. Levemir Inj (Insulin Detemir) 1,000 unit/ 10 ML Vial 10 Units SQ DAILYAC 30 Days Do not mix with any other Insulin. Symbicort Inh (Budesonide/Formoterol Fumarate) 160-4.5 Mcg/Act Aero 1 Puff INH Q12HR Novolog Inj (Insulin Aspart) 100 Unit/Ml Inj 5 Units SQ WITH MEALS [address] (Duloxetine HCl) 30 Mg Capdr 30 Mg PO DAILY Atorvastatin (Atorvastatin Calcium) 40 Mg Tab 40 Mg PO HS Reported Vitamin D3 (Cholecalciferol) 1,000 Unit Cap 1,000 Units PO DAILY Dialyvite 800/Zinc 15 (B-Complex W/ C-Zn & Folic Acid) 1 Tab 1 Tab DAILY Review of Systems Except as stated in HPI: all other systems reviewed are Neg General / Constitutional: No: Fever Eyes: No: Visual changes HENT: No: Headaches Cardiovascular: No: Chest Pain or Discomfort Respiratory: No: Shortness of Breath Gastrointestinal: No: Abdominal Pain Genitourinary: No: Dysuria Musculoskeletal: Positive: Pain (TO LEFT FOOT AND REDNESS TO LEFT FOOT) Skin: No Rash Neurologic: No: Weakness Psychiatric: No: Depression Endocrine: No: Polydipsia Hematologic/Lymphatic: No: Easy Bruising Physical Exam Narrative GENERAL: SKIN: Warm and dry. LEFT DORSUM OF FOOT STREAKING WELL CELLULITIC CHANGES FROM BASE OF 2ND TOE, DORSUM TOWARDS ANKLE JOINT HOWEVER NOT CROSSING JOINT LINE YET HEAD: Atraumatic. Normocephalic. EYES: Pupils equal and round. No scleral icterus. No injection or drainage. ENT: No nasal bleeding or discharge. Mucous membranes pink and moist. NECK: Trachea midline. No JVD. CARDIOVASCULAR: Regular rate and rhythm. RESPIRATORY: No accessory muscle use. Clear to auscultation. Breath sounds equal bilaterally. GASTROINTESTINAL: Abdomen soft, non-tender, nondistended. Hepatic and splenic margins not palpable. MUSCULOSKELETAL: Extremities without clubbing, cyanosis, or edema. No obvious deformities. NEUROLOGICAL: Awake and alert. No obvious cranial nerve deficits. Motor grossly within normal limits. Five out of 5 muscle strength in the arms and legs. Normal speech. PSYCHIATRIC: Appropriate mood and affect; insight and judgment normal. Data Data Last Documented VS Vital Signs Date Time Temp Pulse Resp B/P (MAP) Pulse Ox O2 Delivery O2 Flow Rate FiO2 09/03/17 10:32 92 18 169/79 (109) 98 Room Air 09/03/17 09:48 100.6 Orders Orders Complete Blood Count With Diff (09/03/17 10:28) Comprehensive Metabolic Panel (09/03/17 10:28) Prothrombin Time / Inr (Pt) (09/03/17 10:28) Act Partial Throm Time (Ptt) (09/03/17 10:28) Blood Culture (09/03/17 10:28) Wound Culture And Gram Stain (09/03/17 10:28) Iv Access Insert/Monitor (09/03/17 10:28) Ecg Monitoring (09/03/17 10:28) Oximetry (09/03/17 10:28) Wound Care (09/03/17 10:28) Us Leg Venous Doppler (09/03/17 10:31) Foot, Complete ([id number]) (09/03/17 ) Vancomycin Inj (Vancomycin Inj) (09/03/17 10:31) Piperacil-Tazo 2.25 Gm Premix (Zosyn 2.2 (09/03/17 10:45) MDM Medical Decision Making Medical Screen Exam Complete: Yes Emergency Medical Condition: Yes Medical Record Reviewed: Yes Differential Diagnosis DVT V CELLULITIS V LYMPHANGITIS Narrative Course ULTRS NEG FOR DVT AT THIS POINT, GIVEN ZOSYN FOR CELLULITIS, DUE TO DM/CKD AND RECENT AMPUTATION, IT WOULD BE PRUDENT TO AGGRESSIVELY TREAT CELLULITIS DURING ADMISSION/OBS Diagnosis Primary Impression: Cellulitis Qualified Codes: L03.116 - Cellulitis of left lower limb Admitting Information Admitting Physician Requests: Observation Frank Otero MD Sep 03, 2017 10:40
[2017-09-03] MEDS ORDERED: PIPERACIL-TAZO 2.25 GM PREMIX 50 ML IV ONE (10:45)
--- NOTE | 2017-09-03 11:39 | RADRPT ---
EXAM DATE/TIME: 09/03/2017 10:37 [facility] COMPARISON: No previous studies available for comparison. INDICATIONS : Left leg cellulitis. MEDICAL HISTORY : Peripheral vascular disease. Hypercholesterolemia. Cellulitis. Peripheral neuropathy. Syncope. He art murmur. HTN. COPD. Dyspnea. Stage V renal disease and failure. Diabetes. Hepatitis. Anticoagulant therapy. SURGICAL HISTORY : Left arm AV fistula. Dialysis. Left rotator cuff. ENCOUNTER: Initial ACUITY: 1 day PAIN SCORE: 9/10 LOCATION: Left leg. TECHNIQUE: Venous ultrasound of the leg was performed from the inguinal ligament to the proximal calf. Real-sean e, color Doppler and spectral tracing, compression and augmentation techniques were used. FINDINGS: There is normal compressibility of the deep venous system from the inguinal region to the proximal ca lf. No echogenic clot is seen in the lumen of the common femoral, femoral, popliteal, and posterior tibial veins. There is a normal response of the venous system to proximal and distal augmentation an d respiration. CONCLUSION: No DVT is identified within the left lower extremity. Eliu Norris MD on September 03, 2017 at 11:37 Board Certified Radiologist. This report was verified electronically.
--- NOTE | 2017-09-03 12:09 | RADRPT ---
EXAM DATE/TIME: 09/03/2017 11:21 [facility] COMPARISON: FOOT LEFT COMPLETE ([id number]), June 26, 2017, 16:17. INDICATIONS : Ulcers on foot, prior amputations. MEDICAL HISTORY : Diabetes mellitus type II. SURGICAL HISTORY : 2nd toe amputation, ENCOUNTER: Initial ACUITY: 4 - 6 days PAIN SCORE: 3/10 LOCATION: Left foot. FINDINGS: The patient is status post amputation of the left second digit. There is air within the soft tissues adjacent to the left second metatarsal. If there is strong clinical concern osteomyelitis/cellulitis MRI with contrast would be more sensitive. Extensive arterial vascular calcifications are noted. Ther e is no acute fracture or dislocation. CONCLUSION: 1. Air within the soft tissues surrounding the left second metatarsal raising the possibility of gas gangrene. If there is strong clinical concern for osteomyelitis/cellulitis, MRI with contrast would b e more sensitive. 2. Status post indication left second digit. Randy Milligan MD on September 03, 2017 at 12:04 Board Certified Radiologist. This report was verified electronically.
[2017-09-03 12:18] LABS: AUTOMATED NEUTROPHIL # 16.1 TH/MM3 (1.8-7.7); BASOPHIL # 0.1 TH/MM3 (0-0.2); BASOPHIL % 0.6 % (0.0-2.0); EOSINOPHIL # 0.2 TH/MM3 (0-0.4); EOSINOPHIL % 1.2 % (0.0-4.0); HEMATOCRIT 39.1 % (39.0-51.0); HEMO FLAGS DIFF FINAL; LYMPH % 5.2 % (9.0-44.0); MEAN CELL VOLUME 87.1 FL (80.0-100.0); MEAN CORPUSCULAR HEMOGLOBIN 27.4 PG (27.0-34.0); MEAN CORPUSCULAR HGB CONC 31.4 % (32.0-36.0); MONO % 7.7 % (0.0-8.0); NEUT % 85.3 % (16.0-70.0); PLATELET COUNT 297 TH/MM3 (150-450); RED CELL DISTRIBUTION WIDTH 16.6 % (11.6-17.2); WHITE BLOOD COUNT 18.9 TH/MM3 (4.0-11.0)
[2017-09-03 12:29] LABS: APTT (PATIENT) 21.5 SEC (24.3-30.1); PROTHROMBIN TIME - PATIENT 11.2 SEC (9.8-11.6)
[2017-09-03 12:36] LABS: ALKALINE PHOSPHATASE 244 U/L (45-117); TOTAL BILIRUBIN ADULT 0.7 MG/DL (0.2-1.0)
[2017-09-03 12:37] LABS: ALT (GPT) 42 U/L (12-78); ANION GAP 13 MEQ/L (5-15); AST (GOT) 39 U/L (15-37); BICARBONATE 27.3 MEQ/L (21.0-32.0); BLOOD UREA NITROGEN 60 MG/DL (7-18); CHLORIDE 93 MEQ/L (98-107); GLOMERULAR FILTRATION RATE 9 ML/MIN (>89); POTASSIUM 4.8 MEQ/L (3.5-5.1); SODIUM (NA) 133 MEQ/L (136-145)
--- NOTE | 2017-09-03 12:45 | HHI.HP ---
HPI Service Family Medicine Primary Care Physician Unknown Admission Diagnosis FOOT CELLULITIS R/O OSTEO, ESRD-DIALYSIS Diagnoses: International Travel<30 Days: No Contact w/Intl Traveler<30days: No Known Affected Area: No History of Present Illness 57 yo male with PMH of uncontrolled T2DM, ESRD on dialysis, left second toe amputation, and HTN presenting with a pain in his left foot for the last week. Has become increasingly difficult to bear weight on this foot due to pain, but over the last 2 days he has noticed redness and swelling of the left foot. He talked to his vascular surgeon Dr. Ortiz who treated him with Augmentin. Symptoms not improve after a couple days on Augmentin, he was encouraged by Dr. Ortiz to come to the ER. Other than the foot, he feels well today. Denies chest pain, shortness of breath, dysuria, abdominal pain. (Jeuss Scott MD R2) Review of Systems Constitutional: DENIES: Fever, Chills Endocrine: DENIES: Polydipsia, Polyuria Eyes: COMPLAINS OF: Blurred vision (chronic, sees an eye doctor yearly), DENIES : Eye pain, Photosensitivity, Double Vision Ears, nose, mouth, throat: DENIES: Throat pain, Sinus Pain Respiratory: DENIES: Cough, Wheezing, Shortness of breath Cardiovascular: DENIES: Chest pain, Palpitations Gastrointestinal: DENIES: Abdominal pain, Constipation, Diarrhea, Nausea, Vomiting Genitourinary: DENIES: Urinary frequency, Urgency, Dysuria Musculoskeletal: DENIES: Joint pain, Muscle aches Integumentary: DENIES: Abnormal pigmentation, Rash Hematologic/lymphatic: DENIES: Bruising, Lymphadenopathy Immunologic/allergic: DENIES: Eczema Neurologic: DENIES: Headache, Localized weakness, Seizures Psychiatric: DENIES: Anxiety, Depression (Jesus Scott MD R2) Past Family Social History Past Medical History Diabetes, uncontrolled with blood sugars 200s to 300s Hypertension, controlled with lifestyle modification alone per patient ESRD on dialysis MWF Past Surgical History Left second toe amputation Laser eye surgery Reported Medications Reported Meds & Active Scripts Active Hydrocodone-Acetaminophen 5-325 mg Tab 1-2 Tab PO Q4HR PRN Levemir Inj (Insulin Detemir) 1,000 unit/ 10 ML Vial 5 Units SQ HS 30 Days Do not mix with any other Insulin. Levemir Inj (Insulin Detemir) 1,000 unit/ 10 ML Vial 10 Units SQ DAILYAC 30 Days Do not mix with any other Insulin. Symbicort Inh (Budesonide/Formoterol Fumarate) 160-4.5 Mcg/Act Aero 1 Puff INH Q12HR Novolog Inj (Insulin Aspart) 100 Unit/Ml Inj 5 Units SQ WITH MEALS [address] (Duloxetine HCl) 30 Mg Capdr 30 Mg PO DAILY Atorvastatin (Atorvastatin Calcium) 40 Mg Tab 40 Mg PO HS Reported Vitamin D3 (Cholecalciferol) 1,000 Unit Cap 1,000 Units PO DAILY Dialyvite 800/Zinc 15 (B-Complex W/ C-Zn & Folic Acid) 1 Tab 1 Tab DAILY (Jesus Scott MD R2) Allergies: Coded Allergies: No Known Allergies (Verified Allergy, Unknown, 09/03/17) Active Ordered Medications Current Medications Medications (Trade) Dose Ordered Sig/April Route Start Time Stop Time Status Last Admin (NS Flush) 2 ml UNSCH PRN IV FLUSH 09/03/17 13:00 (NS Flush) 2 ml BID IV FLUSH 09/03/17 21:00 (Tylenol) 650 mg Q4H PRN PO 09/03/17 13:00 (Heparin Inj) 5,000 units Q8H SQ 09/03/17 14:00 09/03/17 15:45 (Narcan Inj) 0.4 mg UNSCH PRN IV PUSH 09/03/17 13:00 (Odette-Colace) 1 tab BID PO 09/03/17 21:00 (Milk Of Magnesia Liq) 30 ml Q12H PRN PO 09/03/17 13:00 (Senokot) 17.2 mg Q12H PRN PO 09/03/17 13:00 (Dulcolax Supp) 10 mg DAILY PRN RECTAL 09/03/17 13:00 (Lactulose Liq) 30 ml DAILY PRN PO 09/03/17 13:00 (D50w (Vial) Inj) 50 ml UNSCH PRN IV PUSH 09/03/17 13:00 (Glucagon Inj) 1 mg UNSCH PRN OTHER 09/03/17 13:00 (NovoLOG SUPPLEMENTAL SCALE) 1 ACHS SLIDING SCALE SQ 09/03/17 17:00 09/03/17 17:22 (Levemir Inj) 8 units Q12HR SQ 09/03/17 21:00 (NovoLOG INJ) 5 units TIDAC SQ 09/03/17 17:00 09/03/17 17:21 Piperacillin Sod/ Tazobactam Sod 50 ml @ 100 mls/hr Q8H IV 09/03/17 21:00 Pharmacy Profile Note 0 ml @ 0 mls/hr UNSCH OTHER 09/03/17 13:45 Sodium Chloride 1,000 ml @ 0 mls/hr Q0M PRN OTHER 09/03/17 16:34 (Heparin Inj) 8,000 units UNSCH PRN IV FLUSH 09/03/17 16:45 Sodium Chloride 1,000 ml @ 200 mls/hr Q5H PRN IV 09/03/17 16:34 Sodium Chloride 1,000 ml @ 0 mls/hr Q0M PRN OTHER 09/03/17 16:34 (Mannitol Inj) 12.5 gm UNSCH PRN IV 09/03/17 16:45 Albumin Human 100 ml @ 60 mls/hr UNSCH PRN IV 09/03/17 16:45 (NS Flush) 5 ml UNSCH PRN IV FLUSH 09/03/17 16:45 (Heparin Inj) UNSCH PRN .XX 09/03/17 16:45 (Gentamicin (Dialysis) Inj) 20 mg UNSCH PRN OTHER 09/03/17 16:45 (Zofran Inj) 4 mg UNSCH PRN IV PUSH 09/03/17 16:45 (Tylenol) 650 mg UNSCH PRN PO 09/03/17 16:45 (Benadryl) 25 mg UNSCH PRN PO 09/03/17 16:45 (Nitrostat Sl) 0.4 mg UNSCH PRN SL 09/03/17 16:45 (Catapres) 0.1 mg UNSCH PRN PO 09/03/17 16:45 (Gelfoam 12 Mm/7 Mm Top) 1 foam UNSCH PRN TOP 09/03/17 16:45 Family History Mother and father both had DM. Mother had ovarian cancer. Father had heart failure. Two brothers with DM. Social History From [place] originally, lived in [place] for the past 2 years. Tob - 1 pack per week for ~30 years total Alc - none Drugs - none (Jesus Scott MD R2) Physical Exam Vital Signs Vital Signs Date Time Temp Pulse Resp B/P (MAP) Pulse Ox O2 Delivery O2 Flow Rate FiO2 09/03/17 12:06 78 18 156/71 (99) 98 Room Air 09/03/17 10:32 92 18 169/79 (109) 98 Room Air 09/03/17 10:09 92 18 169/79 (109) 98 09/03/17 09:48 100.6 92 18 123/103 (110) 98 Physical Exam GENERAL: WDWN adult black male sitting up in bed in NAD SKIN: Cool and dry. Erythema of left foot extending from toes along lateral side of foot up to ~3 cm above lateral malleolus. HEAD: NC/AT EYES: PERRL. EOMI. No conjunctival injection or drainage. ENT: MMM, OP without erythema, tonsillar swelling, or exudate. NECK: Supple, no lymphadenopathy. No JVD. CARDIOVASCULAR: NRRR. Normal S1/S2. No MRG RESPIRATORY: CTAB. No crackles or wheezes. GASTROINTESTINAL: Abdomen soft, non-distended, non-tender. No hepato- splenomegaly or palpable masses. MUSCULOSKELETAL: Extremities without clubbing, cyanosis. 1+ edema to L foot. L 2nd digit s/p amputation. Ulcerative wound with surrounding erythema, no purulent drainage. Surrounding metatarsal bones exquisitely tender to palpation. No areas of fluctuance, no crepitus. Dialysis fistulas in place LUE, palpable bruit. NEUROLOGICAL: Awake and alert. Cranial nerves II through XII grossly intact. Moves all extremities without difficulty. Normal speech. Laboratory Laboratory Tests Test 09/03/17 11:40 White Blood Count 18.9 Red Blood Count 4.50 Hemoglobin 12.3 Hematocrit 39.1 Mean Corpuscular Volume 87.1 Mean Corpuscular Hemoglobin 27.4 Mean Corpuscular Hemoglobin Concent 31.4 Red Cell Distribution Width 16.6 Platelet Count 297 Mean Platelet Volume 8.8 Neutrophils (%) (Auto) 85.3 Lymphocytes (%) (Auto) 5.2 Monocytes (%) (Auto) 7.7 Eosinophils (%) (Auto) 1.2 Basophils (%) (Auto) 0.6 Neutrophils # (Auto) 16.1 Lymphocytes # (Auto) 1.0 Monocytes # (Auto) 1.5 Eosinophils # (Auto) 0.2 Basophils # (Auto) 0.1 CBC Comment DIFF FINAL Differential Comment Prothrombin Time 11.2 Prothromb Time International Ratio 1.0 Activated Partial Thromboplast Time 21.5 Blood Urea Nitrogen 60 Creatinine 7.66 Random Glucose 273 Total Protein 7.9 Albumin 3.0 Calcium Level 10.1 Alkaline Phosphatase 244 Aspartate Amino Transf (AST/SGOT) 39 Alanine Aminotransferase (ALT/SGPT) 42 Total Bilirubin 0.7 Sodium Level 133 Potassium Level 4.8 Chloride Level 93 Carbon Dioxide Level 27.3 Anion Gap 13 Estimat Glomerular Filtration Rate 9 Date/Time Source Procedure Growth Status 09/03/17 11:50 Blood Peripheral Aerobic Blood Culture Pending Received 09/03/17 11:50 Blood Peripheral Anaerobic Blood Culture Pending Received 09/03/17 11:50 Wound Foot Gram Stain Pending Received 09/03/17 11:50 Wound Foot Wound Culture Pending Received (Jesus Scott MD R2) Result Diagram: 09/03/17 1140 09/03/17 1140 Imaging Last Impressions Lower Extremity Ultrasound 09/03/17 1031 Signed Impressions: Service Date/Time: Sunday, September 03, 2017 10:37 - CONCLUSION: No DVT is identified within the left lower extremity. Eliu Norris MD Foot X-Ray 09/03/17 0000 Signed Impressions: Service Date/Time: Sunday, September 03, 2017 11:21 - CONCLUSION: 1. Air within the soft tissues surrounding the left second metatarsal raising the possibility of gas gangrene. If there is strong clinical concern for osteomyelitis/cellulitis, MRI with contrast would be more sensitive. 2. Status post indication left second digit. Randy Milligan MD Foot MRI 09/03/17 0000 Signed Impressions: Service Date/Time: Sunday, September 03, 2017 14:16 - CONCLUSION: 1. There is air within the soft tissues surrounding the distal second metatarsal. However, the second metatarsal demonstrates bone marrow that is normal suggesting against osteomyelitis. No undrained fluid collection is identified. 2. There is subcutaneous edema and muscular edema in the midfoot. Eliu Norris MD (Jesus Scott MD R2) Bryon VTE Risk Assessment Capciaran VTE Risk Assessment: Mod/High Risk (score >= 2) (Jesus Scott MD R2) Assessment and Plan Assessment and Plan 57 yo male with PMH of L toe amputation, DM, HTN presenting with: (Jesus Scott MD R2) Attending Attestation THIS CASE WAS DISCUSSED WITH THE RESIDENT PHYSICIANS. I HAVE REVIEWED THE RECORD AND AGREE WITH THE ABOVE NOTE AND PLAN OF CARE WAS DISCUSSED. I HAVE AUTHORIZED THE ORDER FOR ADMISSION TO AN IN-PATIENT STATUS. (Ashlyn Villa MD) Problem List: (1) Sepsis ICD Codes: A41.9 - Sepsis, unspecified organism Plan: Sepsis criteria met due to leukocytosis plus tachycardia, source of infection is the foot Fluids contraindicated at this time given patient on dialysis, currently maintaining BP (hypertensive) MRI of foot showing no evidence for osteomyelitis (air is from a hole in the wound itself) - Admit to inpatient - F/u wound, blood Cx - Check ESR, CRP - Continue Vancomycin and Zosyn dosed renally, started in ED - Telemetry - Monitor clinically; narrow antibiotics based on culture results. Low threshold for ID consult if decompensating. Mandatory consult if bacteremic. - Consider vascular Sx consult if fails to improve after antibiotic therapy (2) Ischemic ulcer diabetic foot ICD Codes: E11.621 - Type 2 diabetes mellitus with foot ulcer; L97.509 - Non- pressure chronic ulcer of other part of unspecified foot with unspecified severity Status: Acute Plan: See above (3) CKD (chronic kidney disease) stage V requiring chronic dialysis ICD Codes: N18.6 - End stage renal disease; Z99.2 - Dependence on renal dialysis Status: Acute Plan: Dialysis schedule MW, this week was supposed to be [facility] due to holiday - Consult nephrology for continued dialysis, especially given need for nephrotoxic antibiotics (4) DM (diabetes mellitus) ICD Codes: E11.9 - Type 2 diabetes mellitus without complications Status: Chronic Plan: Initial blood sugar 273, at home poorly controlled per patient - AccuCheks ACHS - Blood sugar goal 140-180 - Insulin levemir 8 units Q12H - Insulin aspart 5 units TIDAC - Insulin low-dose sliding scale ACHS (5) FEN/PPX Plan: Fluids: Per nephrology Electrolytes: Monitor and replace PRN Nutrition: Diet renal DVT: Heparin 5000 units Q8H Code status: Full code. (Jesus Scott MD R2) Physician Certification 2 Midnight Certification Type: Admission for Inpatient Services Order for Inpatient Services The services are ordered in accordance with Medicare regulations or non- Medicare payer requirements, as applicable. In the case of services not specified as inpatient-only, they are appropriately provided as inpatient services in accordance with the 2-midnight benchmark. Estimated LOS (days): 3 days is the estimated time the patient will need to remain in the hospital, assuming treatment plan goals are met and no additional complications. Post-Hospital Plan: SNF (Jesus Scott MD R2) 2 Midnight Certification Type: Admission for Inpatient Services Post-Hospital Plan: SNF (Ashlyn Villa MD) Problem Qualifiers (1) Sepsis: Qualified Codes: A41.9 - Sepsis, unspecified organism (2) DM (diabetes mellitus): Qualified Codes: E11.22 - Type 2 diabetes mellitus with diabetic chronic kidney disease; N18.6 - End stage renal disease; Z79.4 - detention (current) use of insulin; Z99.2 - Dependence on renal dialysis Jesus Scott MD R2 Sep 03, 2017 12:45 Ashlyn Villa MD Sep 04, 2017 11:50
[2017-09-03] MEDS ORDERED: LACTULOSE SYRUP 20 GM/30 ML CUP PO PRN (13:00)
[2017-09-03] MEDS ORDERED: SENNOSIDES 8.6 MG TAB PO PRN (13:00)
[2017-09-03] MEDS ORDERED: GLUCAGON 1 MG/ML VIAL OTHER PRN (13:00)
[2017-09-03] MEDS ORDERED: ACETAMINOPHEN 325 MG TAB PO PRN ×2 (13:00→16:45)
[2017-09-03] MEDS ORDERED: BISACODYL 10 MG SUPP RECTAL PRN (13:00)
[2017-09-03] MEDS ORDERED: SODIUM CHLORIDE 0.9% FLUSH 10 ML FLUSH IV FLUSH PRN ×2 (13:00→16:45)
[2017-09-03] MEDS ORDERED: NALOXONE HCL 0.4 MG/ML AMP IV PUSH PRN (13:00)
[2017-09-03] MEDS ORDERED: DEXTROSE 50% IN WATER 50 ML VIAL(D50) IV PUSH PRN (13:00)
[2017-09-03] MEDS ORDERED: MAGNESIUM HYDROXIDE SUSP 30 ML CUP PO PRN (13:00)
[2017-09-03] MEDS ORDERED: Vancomycin Consult Pharmacy 1 EA OTHER SCH (13:45)
[2017-09-03] MEDS ORDERED: VANCOMYCIN 500 MG/NS 100 ML IV ONE ×2 (15:00)
[2017-09-03 15:04] LABS: LACTIC ACID GHOST NOT REPORTABLE
--- NOTE | 2017-09-03 15:43 | RADRPT ---
EXAM DATE/TIME: 09/03/2017 14:16 [place] COMPARISON: FOOT LEFT COMPLETE ([id number]), September 03, 2017, 11:21. INDICATIONS : Left 2nd toe cellulitis after amputation. MEDICAL HISTORY : Diabetes mellitus type 2. Hypertension. Renal disease, end stage. Dialysis. SURGICAL HISTORY : Left 2nd toe amputation. ENCOUNTER: Subsequent ACUITY: 1 month PAIN SCORE: 4/10 LOCATION: Left foot TECHNIQUE: Multiplanar, multisequence MRI examination was performed without contrast. FINDINGS: The second digit is absent related to prior amputation. There is signal void within the soft tissues surrounding the distal second metatarsal. The distal second metatarsal demonstrates normal T1 bone ma rrow signal. The bones demonstrate definite abnormal marrow signal. There is subcutaneous edema and m uscular edema throughout the midfoot. No fluid collection is identified. Tendons do not appear thicke britni. CONCLUSION: 1. There is air within the soft tissues surrounding the distal second metatarsal. However, the second metatarsal demonstrates bone marrow that is normal suggesting against osteomyelitis. No undrained fl uid collection is identified. 2. There is subcutaneous edema and muscular edema in the midfoot. Eliu Norris MD on September 03, 2017 at 15:37 Board Certified Radiologist. This report was verified electronically.
[2017-09-03] MEDS: HEPARIN SODIUM - SQ 10,000 UNITS/ML VIAL SQ SCH ×2 (15:45→21:28)
[2017-09-03] MEDS ORDERED: SODIUM CHLOR 0.9% 1000 ML INJ 1,000 ML OTHER PRN ×2 (16:34)
[2017-09-03] MEDS ORDERED: SODIUM CHLOR 0.9% 1000 ML INJ 1,000 ML IV PRN (16:34)
[2017-09-03] MEDS ORDERED: HEPARIN SODIUM - IV 10,000 UNITS/10 ML VIAL PRN (16:45)
[2017-09-03] MEDS ORDERED: GELATIN 12 MM/7 MM FOAM TOP PRN (16:45)
[2017-09-03] MEDS ORDERED: MANNITOL 12.5 GM/50 ML VIAL IV PRN (16:45)
[2017-09-03] MEDS ORDERED: cloNIDine HCL 0.1 MG TAB PO PRN (16:45)
[2017-09-03] MEDS ORDERED: GENTAMICIN SULFATE (DIALYSIS USE ONLY) 20 MG/2 ML VIAL OTHER PRN (16:45)
[2017-09-03] MEDS ORDERED: HEPARIN SODIUM - IV 10,000 UNITS/10 ML VIAL IV FLUSH PRN (16:45)
[2017-09-03] MEDS ORDERED: NITROGLYCERIN 0.4 MG SL 25 TABS/BTL SL PRN (16:45)
[2017-09-03] MEDS ORDERED: diphenhydrAMINE HCL 25 MG CAP PO PRN (16:45)
[2017-09-03] MEDS ORDERED: ALBUMIN 25% INJ 100 ML IV PRN (16:45)
[2017-09-03] MEDS ORDERED: ONDANSETRON HCL 4 MG/2 ML VIAL IV PUSH PRN (16:45)
[2017-09-03] MEDS: INSULIN ASPART 1,000 UNITS/10 ML VIAL SQ SCH (17:21)
[2017-09-03] MEDS: INSULIN ASPART SUPPLEMENTAL SCALE SQ SCH ×2 (17:22→21:00)
[2017-09-03] MEDS ORDERED: oxyCODONE/ACETAMINOPHEN 5 MG/325 MG TAB PO PRN (17:45)
--- NOTE | 2017-09-03 18:37 | PD.CONS ---
[facility] Service Nephrology Consult Requested By Reason for Consult ESRD on HD Primary Care Physician Unknown History of Present Illness This is a 57 y/o AAM who has a hx of Type 1 DM, HTN, anemia, metabolic bone disorder, and ESRD on HD. He was dialyzed yesterday. He also has PAD, had his left second toe amputated July 15, had been doing well until about a week ago when he began to have increasing pain, warmth, and erythema extending up his left lower leg, decreased sensation in that extremity. He was given Augmentin by vascular, Dr. Ortiz, who then referred for admission. On arrival he has leukocytosis of 18.9, fever, elevated CRP with lactic acid. Blood cultures have been drawn but not available. He was started on IV vancomycin and zosyn. We were consulted to assist with dialysis management. He has not missed any treatment, is currently residing in a [facility]ci but has been homeless for some time. He is not in distress, is a full code. (Jasmyne Bee) Review of Systems Constitutional: COMPLAINS OF: Fatigue, Fever, Chills, DENIES: Change in appetite Respiratory: DENIES: Shortness of breath Cardiovascular: DENIES: Chest pain, Lower Extremity Edema Gastrointestinal: DENIES: Abdominal pain Musculoskeletal: COMPLAINS OF: Muscle aches (Jasmyne Bee) Past Family Social History Allergies: Coded Allergies: No Known Allergies (Verified Allergy, Unknown, 09/03/17) Past Medical History ESRD on HD TTS HTN hyperlipidemia anemia DM I metabolic bone disorder PAD Past Surgical History LUE AVF Left second toe amputation Reported Medications Hydrocodone-Acetaminophen 5-325 mg Tab 1-2 Tab PO Q4HR PRN Levemir Inj (Insulin Detemir) 1,000 unit/ 10 ML Vial 5 Units SQ HS 30 Days Do not mix with any other Insulin. Levemir Inj (Insulin Detemir) 1,000 unit/ 10 ML Vial 10 Units SQ DAILYAC 30 Days Do not mix with any other Insulin. Symbicort Inh (Budesonide/Formoterol Fumarate) 160-4.5 Mcg/Act Aero 1 Puff INH Q12HR Novolog Inj (Insulin Aspart) 100 Unit/Ml Inj 5 Units SQ WITH MEALS [address] (Duloxetine HCl) 30 Mg Capdr 30 Mg PO DAILY Atorvastatin (Atorvastatin Calcium) 40 Mg Tab 40 Mg PO HS Reported Vitamin D3 (Cholecalciferol) 1,000 Unit Cap 1,000 Units PO DAILY Dialyvite 800/Zinc 15 (B-Complex W/ C-Zn & Folic Acid) 1 Tab 1 Tab DAILY Active Ordered Medications Current Medications Medications (Trade) Dose Ordered Sig/April Route Start Time Stop Time Status Last Admin (NS Flush) 2 ml UNSCH PRN IV FLUSH 09/03/17 13:00 (NS Flush) 2 ml BID IV FLUSH 09/03/17 21:00 (Tylenol) 650 mg Q4H PRN PO 09/03/17 13:00 (Heparin Inj) 5,000 units Q8H SQ 09/03/17 14:00 09/03/17 15:45 (Narcan Inj) 0.4 mg UNSCH PRN IV PUSH 09/03/17 13:00 (Odette-Colace) 1 tab BID PO 09/03/17 21:00 (Milk Of Magnesia Liq) 30 ml Q12H PRN PO 09/03/17 13:00 (Senokot) 17.2 mg Q12H PRN PO 09/03/17 13:00 (Dulcolax Supp) 10 mg DAILY PRN RECTAL 09/03/17 13:00 (Lactulose Liq) 30 ml DAILY PRN PO 09/03/17 13:00 (D50w (Vial) Inj) 50 ml UNSCH PRN IV PUSH 09/03/17 13:00 (Glucagon Inj) 1 mg UNSCH PRN OTHER 09/03/17 13:00 (NovoLOG SUPPLEMENTAL SCALE) 1 ACHS SLIDING SCALE SQ 09/03/17 17:00 09/03/17 17:22 (Levemir Inj) 8 units Q12HR SQ 09/03/17 21:00 (NovoLOG INJ) 5 units TIDAC SQ 09/03/17 17:00 09/03/17 17:21 Piperacillin Sod/ Tazobactam Sod 50 ml @ 100 mls/hr Q8H IV 09/03/17 21:00 Pharmacy Profile Note 0 ml @ 0 mls/hr UNSCH OTHER 09/03/17 13:45 Sodium Chloride 1,000 ml @ 0 mls/hr Q0M PRN OTHER 09/03/17 16:34 (Heparin Inj) 8,000 units UNSCH PRN IV FLUSH 09/03/17 16:45 Sodium Chloride 1,000 ml @ 200 mls/hr Q5H PRN IV 09/03/17 16:34 Sodium Chloride 1,000 ml @ 0 mls/hr Q0M PRN OTHER 09/03/17 16:34 (Mannitol Inj) 12.5 gm UNSCH PRN IV 09/03/17 16:45 Albumin Human 100 ml @ 60 mls/hr UNSCH PRN IV 09/03/17 16:45 (NS Flush) 5 ml UNSCH PRN IV FLUSH 09/03/17 16:45 (Heparin Inj) UNSCH PRN .XX 09/03/17 16:45 (Gentamicin (Dialysis) Inj) 20 mg UNSCH PRN OTHER 09/03/17 16:45 (Zofran Inj) 4 mg UNSCH PRN IV PUSH 09/03/17 16:45 (Tylenol) 650 mg UNSCH PRN PO 09/03/17 16:45 (Benadryl) 25 mg UNSCH PRN PO 09/03/17 16:45 (Nitrostat Sl) 0.4 mg UNSCH PRN SL 09/03/17 16:45 (Catapres) 0.1 mg UNSCH PRN PO 09/03/17 16:45 (Gelfoam 12 Mm/7 Mm Top) 1 foam UNSCH PRN TOP 09/03/17 16:45 (Percocet 5-325 Mg) 1 tab Q4H PRN PO 09/03/17 17:45 09/04/17 17:44 Family History Non contributory Social History Residing in a fci occasional tobacco, denies ETOH use no family support functionally independent at times full code (Jasmyne Bee) Physical Exam Vital Signs Vital Signs Date Time Temp Pulse Resp B/P (MAP) Pulse Ox O2 Delivery O2 Flow Rate FiO2 09/03/17 15:30 99.0 99 20 149/67 (94) 98 09/03/17 13:55 87 18 173/80 (111) 98 09/03/17 12:06 78 18 156/71 (99) 98 Room Air 09/03/17 10:32 92 18 169/79 (109) 98 Room Air 09/03/17 10:09 92 18 169/79 (109) 98 11/20/17 09:48 100.6 92 18 123/103 (110) 98 Physical Exam young AAM lying in bed, awake and alert without neuro deficit S1/S2, RRR, no murmurs or rubs lungs clear in all valdez abdomen soft, non tender, non distended ext: no edema; LUE AVF, + thrill/bruit left foot, s/p 2nd toe amputation; dressing in place; weak pulses bilaterally left lower extremity sensation diminished Laboratory Laboratory Tests Test 09/03/17 11:40 09/03/17 12:10 White Blood Count 18.9 Red Blood Count 4.50 Hemoglobin 12.3 Hematocrit 39.1 Mean Corpuscular Volume 87.1 Mean Corpuscular Hemoglobin 27.4 Mean Corpuscular Hemoglobin Concent 31.4 Red Cell Distribution Width 16.6 Platelet Count 297 Mean Platelet Volume 8.8 Neutrophils (%) (Auto) 85.3 Lymphocytes (%) (Auto) 5.2 Monocytes (%) (Auto) 7.7 Eosinophils (%) (Auto) 1.2 Basophils (%) (Auto) 0.6 Neutrophils # (Auto) 16.1 Lymphocytes # (Auto) 1.0 Monocytes # (Auto) 1.5 Eosinophils # (Auto) 0.2 Basophils # (Auto) 0.1 CBC Comment DIFF FINAL Differential Comment Prothrombin Time 11.2 Prothromb Time International Ratio 1.0 Activated Partial Thromboplast Time 21.5 Blood Urea Nitrogen 60 Creatinine 7.66 Random Glucose 273 Total Protein 7.9 Albumin 3.0 Calcium Level 10.1 Alkaline Phosphatase 244 Aspartate Amino Transf (AST/SGOT) 39 Alanine Aminotransferase (ALT/SGPT) 42 Total Bilirubin 0.7 Sodium Level 133 Potassium Level 4.8 Chloride Level 93 Carbon Dioxide Level 27.3 Anion Gap 13 Estimat Glomerular Filtration Rate 9 C-Reactive Protein 22.10 Lactic Acid Level 2.2 Date/Time Source Procedure Growth Status 09/03/17 11:50 Blood Peripheral Aerobic Blood Culture Pending Received 09/03/17 11:50 Blood Peripheral Anaerobic Blood Culture Pending Received 09/03/17 11:50 Wound Foot Gram Stain - Final Resulted 09/03/17 11:50 Wound Foot Wound Culture Pending Resulted (Jasmyne Bee) Result Diagram: 09/03/17 1140 09/03/17 1140 Imaging Last Impressions Lower Extremity Ultrasound 09/03/17 1031 Signed Impressions: Service Date/Time: Sunday, September 03, 2017 10:37 - CONCLUSION: No DVT is identified within the left lower extremity. Eliu Norris MD Foot X-Ray 09/03/17 0000 Signed Impressions: Service Date/Time: Sunday, September 03, 2017 11:21 - CONCLUSION: 1. Air within the soft tissues surrounding the left second metatarsal raising the possibility of gas gangrene. If there is strong clinical concern for osteomyelitis/cellulitis, MRI with contrast would be more sensitive. 2. Status post indication left second digit. Randy Milligan MD Foot MRI 09/03/17 0000 Signed Impressions: Service Date/Time: Sunday, September 03, 2017 14:16 - CONCLUSION: 1. There is air within the soft tissues surrounding the distal second metatarsal. However, the second metatarsal demonstrates bone marrow that is normal suggesting against osteomyelitis. No undrained fluid collection is identified. 2. There is subcutaneous edema and muscular edema in the midfoot. Eliu Norris MD (Jasmyne Bee) Assessment and Plan Problem List: (1) ESRD on hemodialysis ICD Codes: N18.6 - End stage renal disease; Z99.2 - Dependence on renal dialysis Status: Chronic Plan: We will dialyze tomorrow and TTS (orders have been entered); schedule may be altered this week in lieu of the holiday Avoid IVF administration Intermittently monitor electrolytes Protect left arm from BP measurements Hb is stable, Epogen not required High protein diet encouraged; supplements added (2) Gangrene ICD Codes: I96 - Gangrene, not elsewhere classified Status: Acute Plan: Vascular to follow On vancomycin and zosyn; he has fever, leukocytosis and elevated lactic acid blood cultures have been drawn and not available May need amputation this admission (3) Diabetes type 1, uncontrolled ICD Codes: E10.65 - Type 1 diabetes mellitus with hyperglycemia Status: Chronic Plan: Insulin as needed to maintain normal glucose while hospitalized (4) Bone metabolism disorder ICD Codes: E88.9 - Metabolic disorder, unspecified; M90.80 - Osteopathy in diseases classified elsewhere, unspecified site Status: Acute Plan: Resume Sevelamer with meals Intermittently monitor phosphorus level (Jasmyne Bee) Assessment and Plan patient was seen and examined. Dialysis will be on Sunday. On Vancomycin and Zosyn. Recommend surgery/podiatry consult. Also will require ID evaluation to comment on duration of antibiotic therapy. (Maurice Schultz MD) Jasmyne Bee Sep 03, 2017 18:37 Maurice Schultz MD Sep 04, 2017 10:32
[2017-09-03] MEDS: DOCUSATE SODIUM 50 MG/SENNA 8.6 MG TAB PO SCH (21:27)
[2017-09-03] MEDS: SODIUM CHLORIDE 0.9% FLUSH 10 ML FLUSH IV FLUSH SCH (21:28)
[2017-09-03] MEDS: PIPERACIL-TAZO 2.25 GM PREMIX 50 ML IV SCH (21:28)
[2017-09-03] MEDS: INSULIN DETEMIR 100 UNITS/ML VIAL SQ SCH (21:50)
[2017-09-04] VITALS (11 sets, daily range): BP systolic 124–159; BP diastolic 60–92; PULSE 79–104; RESP 17–20; TEMP 97.6–98.9; O2SAT 93–100
[2017-09-04] MEDS: HEPARIN SODIUM - SQ 10,000 UNITS/ML VIAL SQ SCH ×3 (05:03→22:24)
[2017-09-04] MEDS: PIPERACIL-TAZO 2.25 GM PREMIX 50 ML IV SCH ×2 (05:03→13:33)
[2017-09-04] MEDS: SEVELAMER CARBONATE 800 MG TAB PO SCH ×3 (08:00→18:17)
[2017-09-04] MEDS: INSULIN ASPART 1,000 UNITS/10 ML VIAL SQ SCH ×3 (08:00→17:00)
[2017-09-04] MEDS: INSULIN ASPART SUPPLEMENTAL SCALE SQ SCH ×4 (08:00→22:24)
[2017-09-04] MEDS: DOCUSATE SODIUM 50 MG/SENNA 8.6 MG TAB PO SCH ×2 (08:10→22:23)
[2017-09-04] MEDS: SODIUM CHLORIDE 0.9% FLUSH 10 ML FLUSH IV FLUSH SCH ×2 (08:10→22:29)
[2017-09-04] MEDS: INSULIN DETEMIR 100 UNITS/ML VIAL SQ SCH (08:11)
[2017-09-04 09:13] LABS: AUTOMATED NEUTROPHIL # 11.3 TH/MM3 (1.8-7.7); BASOPHIL # 0.1 TH/MM3 (0-0.2); BASOPHIL % 0.8 % (0.0-2.0); EOSINOPHIL # 0.5 TH/MM3 (0-0.4); EOSINOPHIL % 3.6 % (0.0-4.0); HEMATOCRIT 32.3 % (39.0-51.0); HEMO FLAGS DIFF FINAL; LYMPH % 7.3 % (9.0-44.0); LYMPHOCYTE # 1.1 TH/MM3 (1.0-4.8); MEAN CELL VOLUME 85.2 FL (80.0-100.0); MEAN CORPUSCULAR HEMOGLOBIN 27.3 PG (27.0-34.0); MEAN CORPUSCULAR HGB CONC 32.1 % (32.0-36.0); MONO % 10.5 % (0.0-8.0); NEUT % 77.8 % (16.0-70.0); PLATELET COUNT 289 TH/MM3 (150-450); RED BLOOD COUNT 3.79 MIL/MM3 (4.50-5.90); RED CELL DISTRIBUTION WIDTH 16.8 % (11.6-17.2); WHITE BLOOD COUNT 14.5 TH/MM3 (4.0-11.0)
--- NOTE | 2017-09-04 09:32 | HHI.NPPN ---
Subjective General Problems: Anemia Renal Failure: Chronic, End Stage Renal Disease Interval History Seen during dialysis. He is still reporting left foot/leg pain. (Jasmyne Bee) Objective Data Data Vital Signs Date Time Temp Pulse Resp B/P (MAP) Pulse Ox O2 Delivery O2 Flow Rate FiO2 09/04/17 08:00 98.2 79 18 138/65 (89) 97 09/04/17 04:15 128/82 (97) 09/04/17 04:00 97.6 81 18 137/92 (107) 97 09/04/17 00:00 98.5 81 18 124/62 (82) 99 09/03/17 22:00 142/78 (99) 09/03/17 20:50 182/86 (118) 09/03/17 20:45 98.6 97 20 186/91 (122) 98 09/03/17 20:20 90 09/03/17 15:30 99.0 99 20 149/67 (94) 98 09/03/17 13:55 87 18 173/80 (111) 98 09/03/17 12:06 78 18 156/71 (99) 98 Room Air 09/03/17 10:32 92 18 169/79 (109) 98 Room Air 09/03/17 10:09 92 18 169/79 (109) 98 09/03/17 09:48 100.6 92 18 123/103 (110) 98 (Jasmyne Bee) -: 09/04/17 0830 09/03/17 1140 Microbiology 09/03/17 Aerobic Blood Culture, Received Pending 09/03/17 Anaerobic Blood Culture, Received Pending 09/03/17 Aerobic Blood Culture, Received Pending 09/03/17 Anaerobic Blood Culture, Received Pending 09/03/17 Gram Stain - Final, Resulted 09/03/17 Wound Culture, Resulted Pending Imaging Last 72 hours Impressions Lower Extremity Ultrasound 09/03/17 1031 Signed Impressions: Service Date/Time: Sunday, September 03, 2017 10:37 - CONCLUSION: No DVT is identified within the left lower extremity. Eliu Norris MD Foot X-Ray 09/03/17 0000 Signed Impressions: Service Date/Time: Sunday, September 03, 2017 11:21 - CONCLUSION: 1. Air within the soft tissues surrounding the left second metatarsal raising the possibility of gas gangrene. If there is strong clinical concern for osteomyelitis/cellulitis, MRI with contrast would be more sensitive. 2. Status post indication left second digit. Randy Milligan MD Foot MRI 09/03/17 0000 Signed Impressions: Service Date/Time: Sunday, September 03, 2017 14:16 - CONCLUSION: 1. There is air within the soft tissues surrounding the distal second metatarsal. However, the second metatarsal demonstrates bone marrow that is normal suggesting against osteomyelitis. No undrained fluid collection is identified. 2. There is subcutaneous edema and muscular edema in the midfoot. Eliu Norris MD (Jasmyne Bee B. PROVIDER NETWORK MANAGER) Physical Exam General Appearance: Well Developed, Well Nourished, Comfortable (Jasmyne Bee B. PROVIDER NETWORK MANAGER) Eyes Eye Exam: Pupils Equal (Jasmyne Bee B. PROVIDER NETWORK MANAGER) Throat Throat Exam: Oral Mucosa Coates & Moist (Jasmyne Bee B. PROVIDER NETWORK MANAGER) Pulmonary Resp Exam: Clear Bilaterally, Breath Sounds Equal (Jasmyne Bee B. PROVIDER NETWORK MANAGER) Cardiology CV Exam: Regular, Normal Sinus Rhythm, Good Perfusion (Jasmyne Bee B. PROVIDER NETWORK MANAGER) Gastrointestinal/Abdomen GI Exam: Soft, Non-Tender, Bowel Sounds Present, Positive Bowel Movement (Jasmyne Bee B. PROVIDER NETWORK MANAGER) Genitourinary Exam: Clear Urine (Jasmyne Bee B. PROVIDER NETWORK MANAGER) Musculoskeletal MS Exam: Joints Intact, Normal Gait, Normal Tone, Good Strength (Jasmyne Bee B. PROVIDER NETWORK MANAGER) Integumentary Skin Exam: Clear, Warm, Dry, Intact Skin Remarks s/p left 2nd toe amputation, dressing in place diminished PT and DP pulses left foot (Jasmyne Bee B. PROVIDER NETWORK MANAGER) Extremeties Extremities Exam: No Edema, Pedal Pulses Palpable (Jasmyne Bee B. PROVIDER NETWORK MANAGER) Neurologic Neuro Exam: Alert, Awake, Oriented, Speech Clear, Moving All Extremities (Jasmyne Bee B. PROVIDER NETWORK MANAGER) Psychiatric Psych Exam: Appropriate Responses (Jasmyne Bee BLaurie PROVIDER NETWORK MANAGER) Assessment/Plan Discussed Condition With: Patient Assessment Summary: Anemia of CKD, Secndry Hyperparathyroid, End Stage Renal Disease Problem List: (1) ESRD on hemodialysis ICD Codes: N18.6 - End stage renal disease; Z99.2 - Dependence on renal dialysis Status: Chronic Plan: Seen during dialysis today on a 2K, 350 BFR, goal 3L Continue dialysis support TTS, schedule may be altered this week in lieu of the holiday Avoid IVF administration Intermittently monitor electrolytes Protect left arm from BP measurements Hb is stable, Epogen not required High protein diet encouraged; supplements added (2) Gangrene ICD Codes: I96 - Gangrene, not elsewhere classified Status: Acute Plan: Vascular to follow On vancomycin and zosyn; he has fever, leukocytosis and elevated lactic acid blood cultures have been drawn and not available May need amputation this admission (3) Diabetes type 1, uncontrolled ICD Codes: E10.65 - Type 1 diabetes mellitus with hyperglycemia Status: Chronic Plan: Insulin as needed to maintain normal glucose while hospitalized (4) Bone metabolism disorder ICD Codes: E88.9 - Metabolic disorder, unspecified; M90.80 - Osteopathy in diseases classified elsewhere, unspecified site Status: Acute Plan: Resume Sevelamer with meals Intermittently monitor phosphorus level (Jasmyne Bee) Plan patient was seen and examined. Agree with above assessment and plan. Phosphorus is 5.7, continue Renvela. Suggest surgery/podiatry and ID evaluations. (Maurice Schultz MD) Jasmyne Bee Sep 04, 2017 09:32 Maurice Schultz MD Sep 04, 2017 10:37
[2017-09-04 09:54] LABS: BICARBONATE 24.9 MEQ/L (21.0-32.0); POTASSIUM 3.7 MEQ/L (3.5-5.1)
--- NOTE | 2017-09-04 11:48 | HHI.FPPN ---
Problem Problem List: (1) CKD (chronic kidney disease) stage V requiring chronic dialysis (2) Cellulitis (3) Ischemic ulcer diabetic foot (4) COPD (chronic obstructive pulmonary disease) (5) Tobacco abuse Subjective Subjective 57 year old man with CKD stage 5 on dialysis with h/o osteo in the past requiring amputation of his toe -- was seeing Vascular surgery that noted cellulitis on the left foot. This was treated as an outpatient with bactrim but the patient failed to respond and clinical symptoms persisted and his vascular surgeon directed the patient to the ED for admission for workup and treatment with IV antibiotics. The patient did well overnight with no fever or chills and no events. He states he feels the foot is better but he is still having significant pain into the foot. Denies CP/SOB, cough. ROS negative except as above Past Medical History Diabetes, uncontrolled with blood sugars 200s to 300s Hypertension, controlled with lifestyle modification alone per patient ESRD on dialysis MWF COPD high cholesterol Chronic pain Vascular ulcer diabetic foot Past Surgical History Left second toe amputation Laser eye surgery Please see the resident Hand P for additional details regarding this patients PMH/PSH/SOCIAL/[facility] Objective Objective Last Impressions Lower Extremity Ultrasound 09/03/17 1031 Signed Impressions: Service Date/Time: Sunday, September 03, 2017 10:37 - CONCLUSION: No DVT is identified within the left lower extremity. Eliu Norris MD Foot X-Ray 09/03/17 0000 Signed Impressions: Service Date/Time: Sunday, September 03, 2017 11:21 - CONCLUSION: 1. Air within the soft tissues surrounding the left second metatarsal raising the possibility of gas gangrene. If there is strong clinical concern for osteomyelitis/cellulitis, MRI with contrast would be more sensitive. 2. Status post indication left second digit. Randy Milligan MD Foot MRI 09/03/17 0000 Signed Impressions: Service Date/Time: Sunday, September 03, 2017 14:16 - CONCLUSION: 1. There is air within the soft tissues surrounding the distal second metatarsal. However, the second metatarsal demonstrates bone marrow that is normal suggesting against osteomyelitis. No undrained fluid collection is identified. 2. There is subcutaneous edema and muscular edema in the midfoot. Eliu Norris MD Laboratory Tests - Abnormals Test 09/03/17 12:10 09/03/17 17:40 09/03/17 21:35 09/04/17 08:30 Lactic Acid Level 2.2 mmol/L Erythrocyte Sedimentation Rate 63 mm/hr White Blood Count 14.5 TH/MM3 Red Blood Count 3.79 MIL/MM3 Hemoglobin 10.4 GM/DL Hematocrit 32.3 % Neutrophils (%) (Auto) 77.8 % Lymphocytes (%) (Auto) 7.3 % Monocytes (%) (Auto) 10.5 % Neutrophils # (Auto) 11.3 TH/MM3 Monocytes # (Auto) 1.5 TH/MM3 Eosinophils # (Auto) 0.5 TH/MM3 Blood Urea Nitrogen 75 MG/DL Creatinine 9.80 MG/DL Phosphorus Level 5.7 MG/DL Estimat Glomerular Filtration Rate 7 ML/MIN C-Reactive Protein 15.00 MG/DL Vital Signs 09/03/17 09/03/17 09/03/17 09/03/17 12:06 13:55 15:30 20:20 Temp 99.0 Pulse 78 87 99 90 Resp 18 18 20 B/P (MAP) 156/71 (99) 173/80 (111) 149/67 (94) Pulse Ox 98 98 98 O2 Delivery Room Air 09/03/17 09/03/17 09/03/17 09/04/17 20:45 20:50 22:00 00:00 Temp 98.6 98.5 Pulse 97 81 Resp 20 18 B/P (MAP) 186/91 (122) 182/86 (118) 142/78 (99) 124/62 (82) Pulse Ox 98 99 09/04/17 09/04/17 09/04/17 09/04/17 04:00 04:15 08:00 10:59 Temp 97.6 98.2 Pulse 81 79 Resp 18 18 B/P (MAP) 137/92 (107) 128/82 (97) 138/65 (89) Pulse Ox 97 97 97 INTAKE & OUTPUT 09/05/17 07:00 Output Total 3000 ml Balance -3000 ml Physical exam O. CONSTITUTIONAL/GEN: normally nourished, in NAD. EYES: conjunctiva normal, PERRLA, EOMI. ENT: Mouth and pharynx normal. NECK: thyroid midline, carotids symmetrical. LUNGS: clear A-P, respiratory effort is normal. CARDIOVASCULAR: RR without murmur or gallop. No significant edema. GI/ABD: soft without masses, without organomegaly. NEURO: No focal deficits. He is able to ambulate on his foot SKIN: color normal, no rashes noted. HEME/LYMPH: no bruising, petechia or significant adenopathy MUSC: calves soft, left foot with decreased erythema and edema since admission , right foot great toe with ischemic ulcer PSYCH/MENTAL STATUS: Alert and oriented x 3. Assessment Assessment: (1) Cellulitis Plan: At this time MRI imaging is not suggestive of osteomyelitis. The patients Blood cultures are negative for 1 day. his wound culture is currently growing Staph Aureus and the patient is being treated with vancomycin around his dialysis. Patient appears to be improving clinically. Also WBC trending from 18.9 to 14.5 and CRP from 22.1 to 15. At this time continue his currently antibiotic regimen. Will tailor the antibiotics once final cultures are back. (2) Ischemic ulcer diabetic foot Plan: This appears to be chronic and stable -- nothing to address at this time (3) CKD (chronic kidney disease) stage V requiring chronic dialysis Plan: Patient received dialysis today. Nephrology is seeing the patient and appreciate their recommendations. (4) DM (diabetes mellitus) Plan: Continue his insulin regimen and cover with SSI. (5) HTN (hypertension) Plan: Stable -- continue his current therapy (6) COPD (chronic obstructive pulmonary disease) Plan: Stable -- continue his home medications. Assessment 57 year old man with vascular disease, DM, ESRD, HTN with h/o osteomyelitis requiring toe amputation is here for treatment of cellulitis in the same foot that required the previous amputation. At this time this appears to be a staph infection and he appears to be responding to treatment with no evidence of osteomyelitis at this time. Continue plan as above. Appreciate nephrology and vascular surgery input into this patients care. PLAN PLAN Patient seen and dw the resident team -- Dr. Scott, Dr. Britni Villa,Ashlyn Sosa MD Sep 04, 2017 11:48
[2017-09-04] MEDS: DULoxetine HCl DR 30 MG CAP PO SCH (12:10)
[2017-09-04] MEDS: MULTIVIT/MIN/PREN/FOL AC/IRON PRENATAL TAB PO SCH (12:10)
[2017-09-04] MEDS: BUDESONIDE-FORMOTEROL 160/4.5 MCG INHALER INH SCH ×2 (12:11→22:24)
[2017-09-04] MEDS: CHOLECALCIFEROL (VIT D3) 1000 UNIT TAB PO SCH (12:11)
--- NOTE | 2017-09-04 12:46 | PD.VS.PN ---
Subjective Subjective/Hospital Course 57 yo male well known to me adm with L foot cellulitis. Has a history of L toe amputation on 07/11 that has been slowly healing. I saw him in clinic on Sunday and put him on Bactrim, which he started Sunday. I saw him again Sunday and the cellulitis was worse, prompting admission. He has ESRD but ABIs of 1 ( with L foot great toe pressure of 58) and palpable pulses. He notes that his toe amputation has been slowly healing. The foot has been hurting him worse but no f/c. MRI while in house shows edema but no bone involvement suggestive of osteo. Objective Vitals/I&O Date Time Temp Pulse Resp B/P (MAP) Pulse Ox O2 Delivery O2 Flow Rate FiO2 09/04/17 10:59 97 09/04/17 08:00 98.2 79 18 138/65 (89) 97 09/04/17 04:15 128/82 (97) 09/04/17 04:00 97.6 81 18 137/92 (107) 97 09/04/17 00:00 98.5 81 18 124/62 (82) 99 09/03/17 22:00 142/78 (99) 09/03/17 20:50 182/86 (118) 09/03/17 20:45 98.6 97 20 186/91 (122) 98 09/03/17 20:20 90 09/03/17 15:30 99.0 99 20 149/67 (94) 98 09/03/17 13:55 87 18 173/80 (111) 98 09/04/17 09/04/17 09/04/17 07:00 15:00 23:00 Intake Total 410 ml Output Total 0 ml 3000 ml Balance 410 ml -3000 ml Physical Exam L foot with palpable pulses Toe amputation site smaller, no erythema forefoot erythema improved from Sunday. Laboratory Laboratory Tests Test 09/03/17 17:40 09/03/17 21:35 09/04/17 08:30 Erythrocyte Sedimentation Rate 63 Lactic Acid Level 1.2 White Blood Count 14.5 Red Blood Count 3.79 Hemoglobin 10.4 Hematocrit 32.3 Mean Corpuscular Volume 85.2 Mean Corpuscular Hemoglobin 27.3 Mean Corpuscular Hemoglobin Concent 32.1 Red Cell Distribution Width 16.8 Platelet Count 289 Mean Platelet Volume 8.8 Neutrophils (%) (Auto) 77.8 Lymphocytes (%) (Auto) 7.3 Monocytes (%) (Auto) 10.5 Eosinophils (%) (Auto) 3.6 Basophils (%) (Auto) 0.8 Neutrophils # (Auto) 11.3 Lymphocytes # (Auto) 1.1 Monocytes # (Auto) 1.5 Eosinophils # (Auto) 0.5 Basophils # (Auto) 0.1 CBC Comment DIFF FINAL Differential Comment Blood Urea Nitrogen 75 Creatinine 9.80 Random Glucose 102 Calcium Level 9.4 Phosphorus Level 5.7 Sodium Level 137 Potassium Level 3.7 Chloride Level 99 Carbon Dioxide Level 24.9 Anion Gap 13 Estimat Glomerular Filtration Rate 7 C-Reactive Protein 15.00 Date/Time Source Procedure Growth Status 09/03/17 11:50 Blood Peripheral Aerobic Blood Culture - Preliminary NO GROWTH IN 1 DAY Resulted 09/03/17 11:50 Blood Peripheral Anaerobic Blood Culture - Preliminary NO GROWTH IN 1 DAY Resulted 09/03/17 11:50 Wound Foot Gram Stain - Final Resulted 09/03/17 11:50 Wound Culture - Preliminary Staphylococcus Aureus Resulted Imaging Last 48 hours Impressions Lower Extremity Ultrasound 09/03/17 1031 Signed Impressions: Service Date/Time: Sunday, September 03, 2017 10:37 - CONCLUSION: No DVT is identified within the left lower extremity. Eliu Norris MD Foot X-Ray 09/03/17 0000 Signed Impressions: Service Date/Time: Sunday, September 03, 2017 11:21 - CONCLUSION: 1. Air within the soft tissues surrounding the left second metatarsal raising the possibility of gas gangrene. If there is strong clinical concern for osteomyelitis/cellulitis, MRI with contrast would be more sensitive. 2. Status post indication left second digit. Randy Milligan MD Foot MRI 09/03/17 0000 Signed Impressions: Service Date/Time: Sunday, September 03, 2017 14:16 - CONCLUSION: 1. There is air within the soft tissues surrounding the distal second metatarsal. However, the second metatarsal demonstrates bone marrow that is normal suggesting against osteomyelitis. No undrained fluid collection is identified. 2. There is subcutaneous edema and muscular edema in the midfoot. Eliu Norris MD Assessment and Plan Plan Likely forefoot cellulitis but no osteo and palpable pulses, already clinically improving on VANC 1. continue VANC w/ HD 2. Dressing changes to toe amputation 3. If does not resolve or if toe wound worsens, will perform angiogram specifically looking at digital vessels Randy Ortiz MD FACS harness tier [facility] - Heart and Vascular Surgery at [facility] [phone] Randy Ortiz MD Sep 04, 2017 12:46
[2017-09-04] MEDS ORDERED: ATORVASTATIN 40 MG TAB PO SCH (21:00)
[2017-09-04] MEDS ORDERED: INSULIN DETEMIR 100 UNITS/ML VIAL SQ SCH (21:00)
[2017-09-04] MEDS: oxyCODONE/ACETAMINOPHEN 5 MG/325 MG TAB PO PRN (23:03)
[2017-09-05] VITALS: BP 134/63; PULSE 93; RESP 18; TEMP 98.5; O2SAT 96
[2017-09-05] MEDS: oxyCODONE/ACETAMINOPHEN 5 MG/325 MG TAB PO PRN (03:52)
[2017-09-05 04:00] VITALS: BP 116/59; PULSE 84; RESP 17; TEMP 98.1; O2SAT 97
[2017-09-05] MEDS: HEPARIN SODIUM - SQ 10,000 UNITS/ML VIAL SQ SCH ×2 (05:36→13:20)
[2017-09-05] MEDS ORDERED: MORPHINE SULFATE 2 MG/ML INJ IV PUSH PRN (05:45)
--- NOTE | 2017-09-05 06:40 | PD.VS.PN ---
Subjective Subjective/Hospital Course Pt adm with cellulitis - stable pain, no F/C. Objective Vitals/I&O Date Time Temp Pulse Resp B/P (MAP) Pulse Ox O2 Delivery O2 Flow Rate FiO2 09/05/17 04:00 98.1 84 17 116/59 (78) 97 09/05/17 01:18 Room Air 09/05/17 00:00 98.5 93 18 134/63 (86) 96 09/04/17 23:30 Room Air 09/04/17 23:02 Room Air 09/04/17 22:07 97 18 143/70 (94) 97 09/04/17 22:00 97 09/04/17 20:06 95 09/04/17 20:00 98.2 104 17 159/70 (99) 97 09/04/17 16:00 98.9 92 20 135/60 (85) 93 09/04/17 12:00 98.3 93 20 136/63 (87) 100 09/04/17 10:59 97 09/04/17 08:00 81 09/04/17 08:00 98.2 79 18 138/65 (89) 97 09/05/17 09/05/17 09/05/17 07:00 15:00 23:00 Intake Total 480 ml Balance 480 ml Physical Exam L foot toe amputation site ok erythema improved palpable pulses Laboratory Laboratory Tests Test 09/04/17 08:30 09/04/17 17:45 White Blood Count 14.5 Red Blood Count 3.79 Hemoglobin 10.4 Hematocrit 32.3 Mean Corpuscular Volume 85.2 Mean Corpuscular Hemoglobin 27.3 Mean Corpuscular Hemoglobin Concent 32.1 Red Cell Distribution Width 16.8 Platelet Count 289 Mean Platelet Volume 8.8 Neutrophils (%) (Auto) 77.8 Lymphocytes (%) (Auto) 7.3 Monocytes (%) (Auto) 10.5 Eosinophils (%) (Auto) 3.6 Basophils (%) (Auto) 0.8 Neutrophils # (Auto) 11.3 Lymphocytes # (Auto) 1.1 Monocytes # (Auto) 1.5 Eosinophils # (Auto) 0.5 Basophils # (Auto) 0.1 CBC Comment DIFF FINAL Differential Comment Blood Urea Nitrogen 75 Creatinine 9.80 Random Glucose 102 570 Calcium Level 9.4 Phosphorus Level 5.7 Sodium Level 137 Potassium Level 3.7 Chloride Level 99 Carbon Dioxide Level 24.9 Anion Gap 13 Estimat Glomerular Filtration Rate 7 C-Reactive Protein 15.00 Date/Time Source Procedure Growth Status 09/03/17 11:50 Blood Peripheral Aerobic Blood Culture - Preliminary NO GROWTH IN 1 DAY Resulted 09/03/17 11:50 Blood Peripheral Anaerobic Blood Culture - Preliminary NO GROWTH IN 1 DAY Resulted 09/03/17 11:50 Wound Foot Gram Stain - Final Resulted 09/03/17 11:50 Wound Culture - Preliminary Staphylococcus Aureus Resulted Imaging Last 48 hours Impressions Lower Extremity Ultrasound 09/03/17 1031 Signed Impressions: Service Date/Time: Sunday, September 03, 2017 10:37 - CONCLUSION: No DVT is identified within the left lower extremity. Eliu Norris MD Assessment and Plan Plan Likely forefoot cellulitis but no osteo and palpable pulses, already clinically improving on VANC 1. continue VANC w/ HD 2. Dressing changes to toe amputation 3. Ok to d/c home with f/u in vascular clinic 09/14 4. Discussed with patient - he has our numbers if the pain worsens or foot changes at all Randy Ortiz MD FACS electrologist [facility] - Heart and Vascular Surgery at [facility] [phone] Randy Ortiz MD Sep 05, 2017 06:40
[2017-09-05 07:25] LABS: AUTOMATED NEUTROPHIL # 10.3 TH/MM3 (1.8-7.7); BASOPHIL # 0.1 TH/MM3 (0-0.2); BASOPHIL % 0.6 % (0.0-2.0); EOSINOPHIL # 0.4 TH/MM3 (0-0.4); HEMATOCRIT 34.1 % (39.0-51.0); HEMO FLAGS DIFF FINAL; LYMPHOCYTE # 1.4 TH/MM3 (1.0-4.8); MEAN CELL VOLUME 85.7 FL (80.0-100.0); MEAN CORPUSCULAR HEMOGLOBIN 28.3 PG (27.0-34.0); MONO % 11.3 % (0.0-8.0); NEUT % 75.1 % (16.0-70.0); PLATELET COUNT 301 TH/MM3 (150-450); RED BLOOD COUNT 3.98 MIL/MM3 (4.50-5.90); RED CELL DISTRIBUTION WIDTH 16.4 % (11.6-17.2); WHITE BLOOD COUNT 13.7 TH/MM3 (4.0-11.0)
[2017-09-05 07:45] LABS: BICARBONATE 28.2 MEQ/L (21.0-32.0); POTASSIUM 3.9 MEQ/L (3.5-5.1)
[2017-09-05 08:00] VITALS: BP 134/62; PULSE 93; RESP 18; TEMP 97.5; O2SAT 97
[2017-09-05] MEDS: INSULIN ASPART 1,000 UNITS/10 ML VIAL SQ SCH ×2 (08:00→12:00)
[2017-09-05] MEDS: INSULIN ASPART SUPPLEMENTAL SCALE SQ SCH ×2 (08:00→12:00)
[2017-09-05 08:04] VITALS: O2SAT 97
[2017-09-05] MEDS ORDERED: HYDROmorphone HCL PF 0.5 MG/0.5 ML SYRINGE IV PUSH PRN (08:15)
[2017-09-05] MEDS ORDERED: INSULIN DETEMIR 100 UNITS/ML VIAL SQ SCH (09:00)
[2017-09-05] MEDS: CHOLECALCIFEROL (VIT D3) 1000 UNIT TAB PO SCH (09:28)
[2017-09-05] MEDS: DULoxetine HCl DR 30 MG CAP PO SCH (09:28)
[2017-09-05] MEDS: MULTIVIT/MIN/PREN/FOL AC/IRON PRENATAL TAB PO SCH (09:28)
[2017-09-05] MEDS: SODIUM CHLORIDE 0.9% FLUSH 10 ML FLUSH IV FLUSH SCH (09:28)
[2017-09-05] MEDS: SEVELAMER CARBONATE 800 MG TAB PO SCH ×2 (09:28→13:17)
[2017-09-05] MEDS: DOCUSATE SODIUM 50 MG/SENNA 8.6 MG TAB PO SCH (09:28)
[2017-09-05] MEDS: BUDESONIDE-FORMOTEROL 160/4.5 MCG INHALER INH SCH (09:30)
[2017-09-05] MEDS: oxyCODONE/ACETAMINOPHEN 10 MG/325 MG TAB PO PRN ×2 (09:50→15:05)
[2017-09-05] MEDS ORDERED: LEVO500T8 PO (09:51)
--- NOTE | 2017-09-05 09:52 | HHI.DCPOC ---
Discharge Care Plan Diagnosis: (1) Cellulitis (2) DM (diabetes mellitus) (3) HTN (hypertension) (4) CKD (chronic kidney disease) stage V requiring chronic dialysis Goals to Promote Your Health * To prevent worsening of your condition and complications * To maintain your health at the optimal level Directions to Meet Your Goals Take your medications as prescribed Follow your dietary instruction Follow activity as directed Keep your appointments as scheduled Take your immunizations and boosters as scheduled If your symptoms worsen call your PCP, if no PCP go to Urgent Care Center or Emergency Room Smoking is Dangerous to Your Health. Avoid second hand smoke Call the 24-hour hour crisis hotline for domestic abuse at Jesus Scott MD R2 Sep 05, 2017 09:52
--- NOTE | 2017-09-05 11:23 | HHI.FPPN ---
Subjective Remarks Patient seen and examined at bedside. Patient stated Left foot pain has improved. He states swelling and tenderness have also improved. He is able to bare some weight on his foot now. (James Ryder MD, R1) Objective Vitals Vital Signs Date Time Temp Pulse Resp B/P (MAP) Pulse Ox O2 Delivery O2 Flow Rate FiO2 09/05/17 10:48 Room Air 21 09/05/17 08:04 97 21 09/05/17 08:00 97.5 93 18 134/62 (86) 97 09/05/17 04:00 98.1 84 17 116/59 (78) 97 09/05/17 01:18 Room Air 09/05/17 00:00 98.5 93 18 134/63 (86) 96 09/04/17 23:30 Room Air 09/04/17 23:02 Room Air 09/04/17 22:07 97 18 143/70 (94) 97 09/04/17 22:00 97 09/04/17 20:06 95 09/04/17 20:00 98.2 104 17 159/70 (99) 97 09/04/17 16:00 98.9 92 20 135/60 (85) 93 09/04/17 12:00 98.3 93 20 136/63 (87) 100 I/O 09/04/17 09/04/17 09/04/17 09/05/17 09/05/17 09/05/17 07:00 15:00 23:00 07:00 15:00 23:00 Intake Total 410 ml 480 ml Output Total 0 ml 3000 ml Balance 410 ml -3000 ml 480 ml Intake Oral 360 ml 480 ml IV Total 50 ml Output Urine Total 0 ml Hemodialysis 3000 ml # Bowel Movements 0 (James Ryder MD, R1) Result Diagram: 09/05/17 0644 09/05/17 0644 Imaging Last Impressions Lower Extremity Ultrasound 09/03/17 1031 Signed Impressions: Service Date/Time: Sunday, September 03, 2017 10:37 - CONCLUSION: No DVT is identified within the left lower extremity. Eliu Norris MD Foot X-Ray 09/03/17 0000 Signed Impressions: Service Date/Time: Sunday, September 03, 2017 11:21 - CONCLUSION: 1. Air within the soft tissues surrounding the left second metatarsal raising the possibility of gas gangrene. If there is strong clinical concern for osteomyelitis/cellulitis, MRI with contrast would be more sensitive. 2. Status post indication left second digit. Randy Milligan MD Foot MRI 09/03/17 0000 Signed Impressions: Service Date/Time: Sunday, September 03, 2017 14:16 - CONCLUSION: 1. There is air within the soft tissues surrounding the distal second metatarsal. However, the second metatarsal demonstrates bone marrow that is normal suggesting against osteomyelitis. No undrained fluid collection is identified. 2. There is subcutaneous edema and muscular edema in the midfoot. Eliu Norris MD Objective Remarks CONSTITUTIONAL/GEN: normally nourished, in NAD. EYES: conjunctiva normal, PERRLA, EOMI. ENT: Mouth and pharynx normal. NECK: thyroid midline, carotids symmetrical. LUNGS: CTA BL, respiratory effort is normal. CARDIOVASCULAR: Normal s1 and s2. RRR without murmur or gallop. GI/ABD: soft, non-tender, non-distended, without masses, without organomegaly. NEURO: No focal deficits. He is able to ambulate on his foot SKIN: color normal, no rashes noted. HEME/LYMPH: no bruising, petechia or significant adenopathy MUSC: calves soft, left foot with decreased erythema and edema since admission , right foot great toe with ischemic ulcer. +2 DP pulses. PSYCH/MENTAL STATUS: Alert and oriented x 3. (James Ryder MD, R1) A/P Assessment and Plan 57 yo male with PMH of L toe amputation, DM, HTN presenting with: (James Ryder MD, R1) Attending Attestation Patient seen and examined. Case reviewed and discussed with the resident team. Agree with plan of care as discussed with me and documented in the resident note. (Ashlyn Villa MD) Problem List: (1) Sepsis ICD Codes: A41.9 - Sepsis, unspecified organism Status: Resolved Plan: On admission Sepsis criteria met due to leukocytosis plus tachycardia, source of infection is the foot MRI of foot showing no evidence for osteomyelitis (air is from a hole in the wound itself) - Pt has remained hemodynamically stable, Afebrile - wound cx positive for staph. aureus and group D enterococcus. - Blood Cx negative X2 days - Zosyn 11/20--09/04and Vancomycin x2 on 09/03, renally dosed - Patient did not received on 09/04 because per pharm dose given 09/03 would last for 4 days -Patient to be discharged on levaquin 500mg po Q48h - antibiotics narrowed based on culture results. - vascular consulted by nephrology (2) Ischemic ulcer diabetic foot ICD Codes: E11.621 - Type 2 diabetes mellitus with foot ulcer; L97.509 - Non- pressure chronic ulcer of other part of unspecified foot with unspecified severity Status: Acute Plan: See above (3) CKD (chronic kidney disease) stage V requiring chronic dialysis ICD Codes: N18.6 - End stage renal disease; Z99.2 - Dependence on renal dialysis Status: Chronic Plan: [facility] schedule [facility] - Consult nephrology for continued dialysis, especially given need for nephrotoxic antibiotics (4) DM (diabetes mellitus) ICD Codes: E11.9 - Type 2 diabetes mellitus without complications Status: Chronic Plan: Initial blood sugar 273, at home poorly controlled per patient - AccuCheks ACHS - Blood sugar goal 140-180 - Insulin levemir 8 units Q12H - Insulin aspart 5 units TIDAC - Insulin low-dose sliding scale ACHS (5) FEN/PPX Plan: Fluids: Per nephrology Electrolytes: Monitor and replace PRN Nutrition: Diet renal DVT: Heparin 5000 units Q8H Dispo: Pt to be discharge to SNF today Code status: Full code. 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
[2017-09-05 12:00] VITALS: BP 118/62; PULSE 94; RESP 20; TEMP 97.9; O2SAT 98
--- NOTE | 2017-09-05 13:12 | HHI.NPPN ---
Subjective General Problems: Anemia Renal Failure: Chronic, End Stage Renal Disease Interval History Doing well. He has a post op shoe on, ambulatory. Possible discharge today. (Jasmyne Bee) Objective Data Data Vital Signs Date Time Temp Pulse Resp B/P (MAP) Pulse Ox O2 Delivery O2 Flow Rate FiO2 09/05/17 12:00 97.9 94 20 118/62 (80) 98 09/05/17 10:48 Room Air 21 09/05/17 08:04 97 21 09/05/17 08:00 97.5 93 18 134/62 (86) 97 09/05/17 04:00 98.1 84 17 116/59 (78) 97 09/05/17 01:18 Room Air 09/05/17 00:00 98.5 93 18 134/63 (86) 96 09/04/17 23:30 Room Air 09/04/17 23:02 Room Air 09/04/17 22:07 97 18 143/70 (94) 97 09/04/17 22:00 97 09/04/17 20:06 95 09/04/17 20:00 98.2 104 17 159/70 (99) 97 09/04/17 16:00 98.9 92 20 135/60 (85) 93 (Jasmyne Bee) -: 09/05/17 0644 09/05/17 0644 Imaging Last 72 hours Impressions Lower Extremity Ultrasound 09/03/17 1031 Signed Impressions: Service Date/Time: Sunday, September 03, 2017 10:37 - CONCLUSION: No DVT is identified within the left lower extremity. Eliu Norris MD Foot X-Ray 09/03/17 0000 Signed Impressions: Service Date/Time: Sunday, September 03, 2017 11:21 - CONCLUSION: 1. Air within the soft tissues surrounding the left second metatarsal raising the possibility of gas gangrene. If there is strong clinical concern for osteomyelitis/cellulitis, MRI with contrast would be more sensitive. 2. Status post indication left second digit. Randy Milligan MD Foot MRI 09/03/17 0000 Signed Impressions: Service Date/Time: Sunday, September 03, 2017 14:16 - CONCLUSION: 1. There is air within the soft tissues surrounding the distal second metatarsal. However, the second metatarsal demonstrates bone marrow that is normal suggesting against osteomyelitis. No undrained fluid collection is identified. 2. There is subcutaneous edema and muscular edema in the midfoot. Eliu Norris MD (Jasmyne Bee) Physical Exam General Appearance: Well Developed, Well Nourished, Comfortable (Jasmyne Bee. RISK MANAGEMENT INTERN) Eyes Eye Exam: Pupils Equal (Jasmyne Bee RISK MANAGEMENT INTERN) Throat Throat Exam: Oral Mucosa [place] & Moist (Jasmyne Bee RISK MANAGEMENT INTERN) Pulmonary Resp Exam: Clear Bilaterally, Breath Sounds Equal (Jasmyne Bee RISK MANAGEMENT INTERN) Cardiology CV Exam: Regular, Normal Sinus Rhythm, Good Perfusion (Jasmyne Bee RISK MANAGEMENT INTERN) Gastrointestinal/Abdomen GI Exam: Soft, Non-Tender, Bowel Sounds Present, Positive Bowel Movement (Jasmyne Bee RISK MANAGEMENT INTERN) Genitourinary Exam: Clear Urine (Jasmyne BeeP) Musculoskeletal MS Exam: Joints Intact, Normal Gait, Normal Tone, Good Strength (Jasmyne Bee) Integumentary Skin Exam: Clear, Warm, Dry, Intact Skin Remarks s/p left 2nd toe amputation, dressing in place diminished PT and DP pulses left foot (Jasmyne Bee) Extremeties Extremities Exam: No Edema, Pedal Pulses Palpable (Jasmyne Bee. RISK MANAGEMENT INTERN) Neurologic Neuro Exam: Alert, Awake, Oriented, Speech Clear, Moving All Extremities (Jasmyne BeeP) Psychiatric Psych Exam: Appropriate Responses (Jasmyne Bee) Assessment/Plan Discussed Condition With: Patient Assessment Summary: Anemia of CKD, [place] Hyperparathyroid, End Stage Renal Disease Problem List: (1) ESRD on hemodialysis ICD Codes: N18.6 - End stage renal disease; Z99.2 - Dependence on renal dialysis Status: Chronic Plan: Dialyzed yesterday (3L UF) next HD is Sunday in the clinic (Ramu Huitron) Stable from renal perspective Avoid IVF administration Protect left arm from BP measurements Hb is stable, Epogen not required High protein diet encouraged; supplements added (2) Gangrene ICD Codes: I96 - Gangrene, not elsewhere classified Status: Acute Plan: Vascular has evaluated PO levaquin at discharge Given vancomycin and zosyn inpatient blood cultures negative to date; wound culture noted Will follow with vascular after discharge (3) Diabetes type 1, uncontrolled ICD Codes: E10.65 - Type 1 diabetes mellitus with hyperglycemia Status: Chronic Plan: Insulin as needed to maintain normal glucose while hospitalized (4) Bone metabolism disorder ICD Codes: E88.9 - Metabolic disorder, unspecified; M90.80 - Osteopathy in diseases classified elsewhere, unspecified site Status: Acute Plan: On Sevelamer with meals Intermittently monitor phosphorus level (Jasmyne Bee) Plan patient was seen and examined. Agree with above assessment and plan. (Maurice Schultz MD) Jasmyne Bee Sep 05, 2017 13:12 Maurice Schultz MD Sep 06, 2017 07:24
[2017-09-05] MEDS ORDERED: PERC5TAB12 PO (15:49)
[2017-09-05 16:00] VITALS: BP 148/65; PULSE 97; RESP 20; TEMP 99.1; O2SAT 97
--- NOTE | 2017-09-06 18:14 | HHI.DS ---
Discharge Summary Admission Date Sep 03, 2017 at 12:58 Discharge Date: Sep 05, 2017 Admitting Diagnosis FOOT CELLULITIS R/O OSTEO, ESRD-DIALYSIS (1) Sepsis Diagnosis: Principal Plan: On admission Sepsis criteria met due to leukocytosis plus tachycardia, source of infection is the foot MRI of foot showing no evidence for osteomyelitis (air is from a hole in the wound itself) - Pt has remained hemodynamically stable, Afebrile - wound cx positive for staph. aureus and group D enterococcus. - Blood Cx negative X2 days - Zosyn 09/03--09/04and Vancomycin x2 on 09/03, renally dosed - Patient did not received on 09/04 because per pharm dose given 09/03 would last for 4 days -Patient to be discharged on levaquin 500mg po Q48h - antibiotics narrowed based on culture results. - vascular consulted by nephrology ICD Codes: A41.9 - Sepsis, unspecified organism Status: Resolved (2) Ischemic ulcer diabetic foot Diagnosis: Principal Plan: See above ICD Codes: E11.621 - Type 2 diabetes mellitus with foot ulcer; L97.509 - Non- pressure chronic ulcer of other part of unspecified foot with unspecified severity Status: Acute (3) CKD (chronic kidney disease) stage V requiring chronic dialysis Diagnosis: Secondary Plan: [facility] - Consult nephrology for continued dialysis, especially given need for nephrotoxic antibiotics ICD Codes: N18.6 - End stage renal disease; Z99.2 - Dependence on renal dialysis Status: Chronic (4) DM (diabetes mellitus) Diagnosis: Secondary Plan: Initial blood sugar 273, at home poorly controlled per patient - AccuChekmelani ACHS - Blood sugar goal 140-180 - Insulin levemir 8 units Q12H - Insulin aspart 5 units TIDAC - Insulin low-dose sliding scale ACHS ICD Codes: E11.9 - Type 2 diabetes mellitus without complications Status: Chronic Consultants Nephrology- Vascular surgery- Dr. Ortiz Procedures none Brief History 57 yo male with PMH of uncontrolled T2DM, ESRD on dialysis, left second toe amputation, and HTN presenting with a pain in his left foot for the last week. Has become increasingly difficult to bear weight on this foot due to pain, but over the last 2 days he has noticed redness and swelling of the left foot. He talked to his vascular surgeon Dr. Ortiz who treated him with Augmentin. Symptoms not improve after a couple days on Augmentin, he was encouraged by Dr. Ortiz to come to the ER. Other than the foot, he feels well today. Denies chest pain, shortness of breath, dysuria, abdominal pain. CBC/BMP: 09/05/17 0644 09/05/17 0644 Significant Findings Laboratory Tests Test 09/03/17 21:35 09/04/17 08:30 09/04/17 17:45 09/05/17 06:44 White Blood Count 14.5 TH/MM3 (4.0-11.0) 13.7 TH/MM3 (4.0-11.0) Red Blood Count 3.79 MIL/MM3 (4.50-5.90) 3.98 MIL/MM3 (4.50-5.90) Hemoglobin 10.4 GM/DL (13.0-17.0) 11.3 GM/DL (13.0-17.0) Hematocrit 32.3 % (39.0-51.0) 34.1 % (39.0-51.0) Neutrophils (%) (Auto) 77.8 % (16.0-70.0) 75.1 % (16.0-70.0) Lymphocytes (%) (Auto) 7.3 % (9.0-44.0) Monocytes (%) (Auto) 10.5 % (0.0-8.0) 11.3 % (0.0-8.0) Neutrophils # (Auto) 11.3 TH/MM3 (1.8-7.7) 10.3 TH/MM3 (1.8-7.7) Monocytes # (Auto) 1.5 TH/MM3 (0-0.9) 1.6 TH/MM3 (0-0.9) Eosinophils # (Auto) 0.5 TH/MM3 (0-0.4) Blood Urea Nitrogen 75 MG/DL (7-18) 58 MG/DL (7-18) Creatinine 9.80 MG/DL (0.60-1.30) 9.34 MG/DL (0.60-1.30) Phosphorus Level 5.7 MG/DL (2.5-4.9) Estimat Glomerular Filtration Rate 7 ML/MIN (>89) 7 ML/MIN (>89) C-Reactive Protein 15.00 MG/DL (0.00-0.30) Random Glucose 570 MG/DL (74-106) 204 MG/DL (74-106) Sodium Level 135 MEQ/L (136-145) Chloride Level 93 MEQ/L (98-107) Imaging Last Impressions Lower Extremity Ultrasound 09/03/17 1031 Signed Impressions: Service Date/Time: Sunday, September 03, 2017 10:37 - CONCLUSION: No DVT is identified within the left lower extremity. Eliu Norris MD Foot X-Ray 09/03/17 0000 Signed Impressions: Service Date/Time: Sunday, September 03, 2017 11:21 - CONCLUSION: 1. Air within the soft tissues surrounding the left second metatarsal raising the possibility of gas gangrene. If there is strong clinical concern for osteomyelitis/cellulitis, MRI with contrast would be more sensitive. 2. Status post indication left second digit. Randy Milligan MD Foot MRI 09/03/17 0000 Signed Impressions: Service Date/Time: Sunday, September 03, 2017 14:16 - CONCLUSION: 1. There is air within the soft tissues surrounding the distal second metatarsal. However, the second metatarsal demonstrates bone marrow that is normal suggesting against osteomyelitis. No undrained fluid collection is identified. 2. There is subcutaneous edema and muscular edema in the midfoot. Eliu Norris MD PE at Discharge CONSTITUTIONAL/GEN: normally nourished, in NAD. EYES: conjunctiva normal, PERRLA, EOMI. ENT: Mouth and pharynx normal. NECK: thyroid midline, carotids symmetrical. LUNGS: CTA BL, respiratory effort is normal. CARDIOVASCULAR: Normal s1 and s2. RRR without murmur or gallop. GI/ABD: soft, non-tender, non-distended, without masses, without organomegaly. NEURO: No focal deficits. He is able to ambulate on his foot SKIN: color normal, no rashes noted. HEME/LYMPH: no bruising, petechia or significant adenopathy MUSC: calves soft, left foot with decreased erythema and edema since admission , right foot great toe with ischemic ulcer. +2 DP pulses. PSYCH/MENTAL STATUS: Alert and oriented x 3. Hospital Course Mr. Aguilera is a 21-ch[age]- Male with PMHx of amputation of 2nd digit of Left foot, DM, HTN and CKD who presented to the ED on 09/03/17 with complaints of worsening Left foot pain, accompanied with redness, swelling and inability to bear weight on foot. He was admitted for treatment of diabetic foot infection. The workup on this admission revealed leukocytosis, MRI of Left foot showed subcutaneous and muscular edema of mid foot, no evidence of osteomyelitis or fluid collection. Blood cx taken on admission were negative for growth x 2 days prior to discharge. Wound cx were positive for staph aureus and E. Faecalis. Antibiotics were narrowed based on wound cx results. Nephrology and vascular surgery were consulted. Foot dressing were done to maintain sterility. Pt was hemodynamically stable upon discharge with improvement of foot pain and ambulation, as well as decreased redness and swelling. Patient was discharge to back to the rehab center he was attending prior to being admitted. He was given script for levaquin for his foot infection and instructions to f/u with Dr. Ortiz on 09/14/17 as an out patient appointment. Pt Condition on Discharge: Good Discharge Disposition: Discharge to SNF Discharge Instructions DIET: Follow Instructions for: As Tolerated, No Restrictions Activities you can perform: Regular-No Restrictions Follow up Referrals: PCP Follow-up - 3-5 Days Vascular Surgery @ Vascular Surgery with Randy Ortiz MD New Medications: Levofloxacin (Levofloxacin) 500 Mg Tablet 500 MG PO Q48H for Infection, #7 TAB 0 Refills Oxycodone-Acetaminophen (Percocet) 5-325 mg Tab 1 TAB PO Q4H PRN for PAIN, #20 TAB 0 Refills Continued Medications: Atorvastatin (Atorvastatin) 40 Mg Tab 40 MG PO HS for Cholesterol Management, #30 TAB 0 Refills B-Complex W/ C-Zn & Folic Acid (Dialyvite 800/Zinc 15) 1 Tab 1 TAB DAILY Budesonide-Formoterol Inh (Symbicort Inh) 160-4.5 Mcg/Act Aero 1 PUFF INH Q12HR, #1 INHALER 2 Refills Cholecalciferol (Vitamin D3) 1,000 Unit Cap 1000 UNITS PO DAILY for Nutritional Supplement, #1 BOTTLE [address] (Duloxetine DR) 30 Mg Capdr 30 MG PO DAILY, #30 CAP 0 Refills Hydrocodone-Acetaminophen (Hydrocodone-Acetaminophen) 5-325 mg Tab 1-2 TAB PO Q4HR PRN for PAIN GREATER THAN 5, #60 TAB Insulin Aspart Inj (Novolog Inj) 100 Unit/Ml Inj 5 UNITS SQ with meals for 30 Days, #450 INJECTION Insulin Detemir Inj (Levemir Inj) 1,000 unit/ 10 ML Vial 10 UNITS SQ DAILYAC for 30 Days, #300 INJECTION Do not mix with any other Insulin. Insulin Detemir Inj (Levemir Inj) 1,000 unit/ 10 ML Vial 5 UNITS SQ HS for 30 Days, #150 INJECTION Do not mix with any other Insulin. James Ryder MD, R1 Sep 06, 2017 18:14
== END 2017-09-05 16:36 | DRG 871 ==
LOC: NEPE 09:45 → NEDA 12:08 → OBSVTOIN 12:58 → N04B 14:57
PROVIDERS: ADMIT Family Medicine; ATTEND Family Medicine
PROC: 5A1D70Z Performance of Urinary Filtration, Intermittent, Less than 6 Hours Per Day (ICD-10-PCS; principal; 2017-09-04)
DX: A41.01 Sepsis due to Methicillin susceptible Staphylococcus aureus (principal); N18.6 End stage renal disease; A48.0 Gas gangrene; N25.81 Secondary hyperparathyroidism of renal origin; E88.89 Other specified metabolic disorders; I12.0 Hypertensive chronic kidney disease with stage 5 chronic kidney disease or end stage renal disease; L03.116 Cellulitis of left lower limb; E11.22 Type 2 diabetes mellitus with diabetic chronic kidney disease; E11.628 Type 2 diabetes mellitus with other skin complications; E11.621 Type 2 diabetes mellitus with foot ulcer; L97.529 Non-pressure chronic ulcer of other part of left foot with unspecified severity; E11.65 Type 2 diabetes mellitus with hyperglycemia; J44.9 Chronic obstructive pulmonary disease, unspecified; D63.1 Anemia in chronic kidney disease; E78.5 Hyperlipidemia, unspecified; I73.9 Peripheral vascular disease, unspecified; Z72.0 Tobacco use; Z79.4 Long term (current) use of insulin; Z89.422 Acquired absence of other left toe(s); Z99.2 Dependence on renal dialysis
CPT/HCPCS: 73630; 73718; 80048; 80053; 80202; 82947; 82948; 83605; 84100; 85025; 85610; 85652; 85730; 86140; 86403; 87040; 87070; 87077; 87147; 87186; 87205; 90935; 93971; J1644; J1815; J2543; J3370; J7030; J7050

== ENCOUNTER 2017-09-21 11:41 | Inpatient (IN) | payer MEDICARE, MEDICAID ==
[2017-09-21] VITALS (7 sets, daily range): BP systolic 143–174; BP diastolic 69–88; PULSE 94–108; RESP 16–20; TEMP 98–99.6; O2SAT 97–98
[~2017-09-21 11:41] MED LIST changes: +LEVO500T8 PO; +PERC5TAB12 PO
[2017-09-21] MEDS ORDERED: SODIUM CHLORIDE 0.9% FLUSH 10 ML FLUSH IV FLUSH PRN ×2 (12:00→13:45)
[2017-09-21] MEDS ORDERED: ONDANSETRON HCL 4 MG/2 ML VIAL IVP PRN (12:00)
[2017-09-21] MEDS ORDERED: SODIUM CHLOR 0.9% 1000 ML INJ 1,000 ML IV SCH (12:00)
[2017-09-21] MEDS ORDERED: BISACODYL 10 MG SUPP RECTAL PRN (12:00)
[2017-09-21] MEDS ORDERED: MAGNESIUM HYDROXIDE SUSP 30 ML CUP PO PRN (12:00)
[2017-09-21] MEDS ORDERED: SENNOSIDES 8.6 MG TAB PO PRN (12:00)
[2017-09-21] MEDS: INSULIN ASPART SUPPLEMENTAL SCALE SQ SCH ×3 (12:00→21:00)
[2017-09-21] MEDS ORDERED: NALOXONE HCL 0.4 MG/ML AMP IV PUSH PRN ×2 (12:00→19:00)
[2017-09-21] MEDS ORDERED: LACTULOSE SYRUP 20 GM/30 ML CUP PO PRN (12:00)
[2017-09-21] MEDS ORDERED: DEXTROSE 50% IN WATER 50 ML VIAL(D50) IV PUSH PRN (12:30)
[2017-09-21] MEDS ORDERED: GLUCAGON 1 MG/ML VIAL OTHER PRN (12:30)
[2017-09-21] MEDS ORDERED: Vancomycin Consult Pharmacy 1 EA OTHER SCH (12:45)
[2017-09-21] MEDS ORDERED: PIPERACIL-TAZO 3.375 GM PREMIX 50 ML IV SCH (12:45)
[2017-09-21 13:21] LABS: AUTOMATED NEUTROPHIL # 8.7 TH/MM3 (1.8-7.7); BASOPHIL # 0.1 TH/MM3 (0-0.2); EOSINOPHIL # 0.4 TH/MM3 (0-0.4); EOSINOPHIL % 3.6 % (0.0-4.0); HEMATOCRIT 29.5 % (39.0-51.0); HEMO FLAGS DIFF FINAL; LYMPH % 8.5 % (9.0-44.0); MEAN CELL VOLUME 84.7 FL (80.0-100.0); MEAN CORPUSCULAR HEMOGLOBIN 27.3 PG (27.0-34.0); MEAN CORPUSCULAR HGB CONC 32.2 % (32.0-36.0); MONO % 9.6 % (0.0-8.0); NEUT % 77.3 % (16.0-70.0); PLATELET COUNT 396 TH/MM3 (150-450); RED BLOOD COUNT 3.48 MIL/MM3 (4.50-5.90); RED CELL DISTRIBUTION WIDTH 17.2 % (11.6-17.2); WHITE BLOOD COUNT 11.3 TH/MM3 (4.0-11.0)
[2017-09-21 13:29] LABS: INTERNATIONAL NORMALIZED RATIO 1.2 RATIO; PROTHROMBIN TIME - PATIENT 11.7 SEC (9.8-11.6)
[2017-09-21] MEDS ORDERED: SODIUM CHLOR 0.9% 1000 ML INJ 1,000 ML IV PRN (13:35)
[2017-09-21] MEDS ORDERED: SODIUM CHLOR 0.9% 1000 ML INJ 1,000 ML OTHER PRN ×2 (13:35)
[2017-09-21 13:38] LABS: ALT (GPT) 25 U/L (12-78); ANION GAP 8 MEQ/L (5-15); AST (GOT) 25 U/L (15-37); BLOOD UREA NITROGEN 58 MG/DL (7-18); CHLORIDE 96 MEQ/L (98-107); GLOMERULAR FILTRATION RATE 7 ML/MIN (>89); POTASSIUM 4.4 MEQ/L (3.5-5.1); SODIUM (NA) 135 MEQ/L (136-145)
--- NOTE | 2017-09-21 13:38 | HHI.HP ---
HPI Service [facility] Primary Care Physician Angella Joshua , R3 MD Alyssa Admission Diagnosis Left Foot Cellulitis vs osteomyelitis Diagnoses: Chief Complaint: Left foot pain Travel History International Travel<30 Days: No Contact w/Intl Traveler <30 Da: No Traveled to Known Affected Are: No History of Present Illness Written by Juana Neal, acting as scribe for Dr. Parish on 09/21/17 at 13: 05. Patient is a 57-year-old male with primary medical history of end-stage renal disease on hemodialysis, COPD, Type 1 DM who came into the hospital as direct admission from presented to office for complaints of increasing left foot pain. Patient is status post toe amputation last July 2017 he is now residing at [facility] where in he has a wound care consult that takes care of of his wound. As per patient the wound doctor has cleaned out his right great toe blister, and has also cleaned out some of the slough on the left foot. He went to Dr. Ortiz's office and told that he has increasing pain on the left foot at the bottom side and they had immediately asked him to be evaluated in the hospital. Patient states that he was on IV antibiotics that was given to him during dialysis and his last dose was last Sunday., With increased pain of the left bottom foot part with standing or walking, patient states he feels it is "on fire." Otherwise, denies SOB/ dyspnea. Denies chest pain, palpitations, headaches, dizziness. Denies fevers, chills, n/v/d. Review of Systems Except as stated in HPI: all other systems reviewed are Neg Past Family Social History Past Medical History Renal failure, on dialysis due to diabetes. * AV fistula on left arm Diabetes Mellitus at age 22, type 1 insulin dependent HTN Anemia HLD COPD Past Surgical History Left second toe amputation AV fistula placement Reported Medications Reported Meds & Active Scripts Active Percocet (Oxycodone-Acetaminophen) 5-325 mg Tab 1 Tab PO Q4H PRN Levofloxacin 500 Mg Tablet 500 Mg PO Q48H Hydrocodone-Acetaminophen 5-325 mg Tab 1-2 Tab PO Q4HR PRN Levemir Inj (Insulin Detemir) 1,000 unit/ 10 ML Vial 5 Units SQ HS 30 Days Do not mix with any other Insulin. Levemir Inj (Insulin Detemir) 1,000 unit/ 10 ML Vial 10 Units SQ DAILYAC 30 Days Do not mix with any other Insulin. Symbicort Inh (Budesonide/Formoterol Fumarate) 160-4.5 Mcg/Act Aero 1 Puff INH Q12HR Novolog Inj (Insulin Aspart) 100 Unit/Ml Inj 5 Units SQ WITH MEALS [address] (Duloxetine HCl) 30 Mg Capdr 30 Mg PO DAILY Atorvastatin (Atorvastatin Calcium) 40 Mg Tab 40 Mg PO HS Reported Vitamin D3 (Cholecalciferol) 1,000 Unit Cap 1,000 Units PO DAILY Dialyvite 800/Zinc 15 (B-Complex W/ C-Zn & Folic Acid) 1 Tab 1 Tab DAILY Allergies: Coded Allergies: No Known Allergies (Verified Allergy, Unknown, 09/03/17) Active Ordered Medications Current Medications Medications (Trade) Dose Ordered Sig/April Route Start Time Stop Time Status Last Admin Sodium Chloride 1,000 ml @ 100 mls/hr Q10H IV 09/21/17 12:00 (NS Flush) 2 ml UNSCH PRN IV FLUSH 09/21/17 12:00 (NS Flush) 2 ml BID IV FLUSH 09/21/17 21:00 (Zofran Inj) 4 mg Q6H PRN IVP 09/21/17 12:00 (Narcan Inj) 0.4 mg UNSCH PRN IV PUSH 09/21/17 12:00 (Milk Of Magnesia Liq) 30 ml Q12H PRN PO 09/21/17 12:00 (Senokot) 17.2 mg Q12H PRN PO 09/21/17 12:00 (Dulcolax Supp) 10 mg DAILY PRN RECTAL 09/21/17 12:00 (Lactulose Liq) 30 ml DAILY PRN PO 09/21/17 12:00 (NovoLOG SUPPLEMENTAL SCALE) 1 ACHS SLIDING SCALE SQ 09/21/17 12:00 (Levemir Inj) 5 units Q12HR SQ 09/21/17 21:00 (D50w (Vial) Inj) 50 ml UNSCH PRN IV PUSH 09/21/17 12:30 (Glucagon Inj) 1 mg UNSCH PRN OTHER 09/21/17 12:30 Piperacillin Sod/ Tazobactam Sod 50 ml @ 100 mls/hr Q6H IV 09/21/17 12:45 UNV Vancomycin HCl 1000 mg/Sodium Chloride 250 ml @ 250 mls/hr ONCE ONCE IV 09/21/17 12:45 09/21/17 13:44 UNV Pharmacy Profile Note 0 ml @ 0 mls/hr UNSCH OTHER 09/21/17 12:45 UNV Family History Mother of cancer at age of 70 Father of heart disease at the age of 70 Social History Denies alcohol use Former smoker, a third of a pack per day for 30 years Denies illicit drug use Physical Exam Physical Exam GENERAL: This is a well-nourished, well-developed patient, in no apparent distress. SKIN: Warm and dry. Right great toe scab wound healing. Left amputation site and the second toe with pinpoint opening draining serous fluid. Left anterior portion of the foot slough present with eschar on the borders. HEAD: Normocephalic. No temporal or scalp tenderness. EYES: Pupils equal round and reactive. Extraocular motions intact. No scleral icterus. No injection or drainage. ENT: Nose without bleeding. Throat without erythema. Uvula midline. Airway patent. NECK: Trachea midline. CARDIOVASCULAR: Regular rate without murmurs, gallops, or rubs. RESPIRATORY: Clear to auscultation. Breath sounds equal bilaterally. No wheezes , rales, or rhonchi. GASTROINTESTINAL: Abdomen soft, non-tender, nondistended. Bowel sounds active 4. No guarding. MUSCULOSKELETAL: Extremities without clubbing, cyanosis, or edema. Left forearm fistula positive thrill and bruit. Right DP and PD Doppler (+). Left DP Doppler (+) NEUROLOGICAL: Awake and alert. Cranial nerves II through XII intact. Motor and sensory grossly within normal limits. Normal speech. Caprini VTE Risk Assessment Caprini VTE Risk Assessment: Mod/High Risk (score >= 2) Caprini Risk Assessment Model Point Value = 1 Point Value = 2 Point Value = 3 Point Value = 5 Age 41-60 Minor surgery BMI > 25 kg/m2 Swollen legs Varicose veins or History of unexplained or recurrent spontaneous Oral contraceptives or hormone replacement Sepsis (< 1 month) Serious lung disease, including pneumonia (< 1 month) Abnormal pulmonary function Acute myocardial infarction Congestive heart failure (< 1 month) History of inflammatory bowel disease Medical patient at bed rest Age 61-74 Arthroscopic surgery Major open surgery (> 45 min) Laparoscopic surgery (> 45 min) Malignancy Confined to bed (> 72 hours) Immobilizing plaster cast Central venous access Age >= 75 History of VTE Family history of VTE Factor V Leiden Prothrombin [id number] Lupus anticoagulant Anticardiolipin antibodies Elevated serum homocysteine Heparin-induced thrombocytopenia Other congenital or acquired thrombophilia Stroke (< 1 month) Elective arthroplasty Hip, pelvis, or leg fracture Acute spinal cord injury (< 1 month) Prophylaxis Regimen Total Risk Factor Score Risk Level Prophylaxis Regimen 0-1 Low Early ambulation 2 Moderate Order ONE of the following: *Sequential Compression Device (SCD) *Heparin 5000 units SQ BID 3-4 Higher Order ONE of the following medications: *Heparin 5000 units SQ TID *Enoxaparin/Lovenox 40 mg SQ daily (WT < 150 kg, CrCl > 30 mL/min) *Enoxaparin/Lovenox 30 mg SQ daily (WT < 150 kg, CrCl > 10-29 mL/min) *Enoxaparin/Lovenox 30 mg SQ BID (WT < 150 kg, CrCl > 30 mL/min) AND/OR *Sequential Compression Device (SCD) 5 or more Highest Order ONE of the following medications: *Heparin 5000 units SQ TID (Preferred with Epidurals) *Enoxaparin/Lovenox 40 mg SQ daily (WT < 150 kg, CrCl > 30 mL/min) *Enoxaparin/Lovenox 30 mg SQ daily (WT < 150 kg, CrCl > 10-29 mL/min) *Enoxaparin/Lovenox 30 mg SQ BID (WT < 150 kg, CrCl > 30 mL/min) AND *Sequential Compression Device (SCD) Assessment and Plan Problem List: (1) Cellulitis of foot, left ICD Code: L03.116 - Cellulitis of left lower limb (2) Status post amputation ICD Code: Z89.9 - Acquired absence of limb, unspecified (3) Diabetic, retinopathy, proliferative ICD Code: E11.3599 - Type 2 diabetes mellitus with proliferative diabetic retinopathy without macular edema, unspecified eye Status: Acute (4) COPD exacerbation ICD Code: J44.1 - Chronic obstructive pulmonary disease with (acute) exacerbation Status: Acute (5) Diabetic neuropathy ICD Code: E11.40 - Diabetic neuropathy Status: Acute (6) PAD (peripheral artery disease) ICD Code: I73.9 - Peripheral vascular disease, unspecified Status: Chronic (7) End stage renal disease ICD Code: N18.6 - End-stage renal disease Status: Chronic (8) Dependent on hemodialysis ICD Code: Z99.2 - Dependence on renal dialysis Status: Acute (9) COPD (chronic obstructive pulmonary disease) ICD Code: J44.9 - Chronic obstructive pulmonary disease, unspecified Status: Chronic (10) Diabetes type 1, uncontrolled ICD Code: E10.65 - Type 1 diabetes mellitus with hyperglycemia Status: Chronic Assessment and Plan Patient is a 57-year-old male with primary medical history of end-stage renal disease on hemodialysis, COPD, Type 1 DM who came into the hospital as direct admission from presented to office for complaints of increasing left foot pain. Left foot cellulitis, questionable osteomyelitis PAD - S/P recent second toe amputation secondary to osteomyelitis. Previous cultures grew staph aureus and Enterococcus faecalis 09/03/17 sensitive to daptomycin, Zyvox, vancomycin - Check blood cultures, Check wound cultures - vancomycin, Zosyn IV antibiotics for anaerobe coverage - Consult vascular surgery Dr. Ortiz for further evaluation and recommendation - Follow up labs - PT evaluation - Pain management with IV morphine, Sharon's. End-stage renal disease on hemodialysis - Consult nephrology for continuation of hemodialysis while inpatient - Left AV fistula positive thrill and bruit - Renal diet - Follow-up labs Type 1 diabetes, with hyperglycemia - Continue home medication with insulin Levemir - Start insulin sliding scale, monitor for hypoglycemia. COPD, not in exacerbation - Monitor respiratory status DVT prop SCDs Code Status Full code Discussed Condition With Patient, nursing Physician Certification 2 Midnight Certification Type: Admission for Inpatient Services Order for Inpatient Services The services are ordered in accordance with Medicare regulations or non- Medicare payer requirements, as applicable. In the case of services not specified as inpatient-only, they are appropriately provided as inpatient services in accordance with the 2-midnight benchmark. Estimated LOS (days): 2 days is the estimated time the patient will need to remain in the hospital, assuming treatment plan goals are met and no additional complications. Post-Hospital Plan: SNF Notes: This note was transcribed by denis Neal. I, Dr. Tal Parish personally performed the history, physical exam, and medical decision making; and confirmed the accuracy of the information in the transcribed note. Authenticated by Dr. Tal Parish on 09/21/17 at 13:56. Juana Mueller Sep 21, 2017 13:37 Tal Parish MD Sep 21, 2017 13:57
[2017-09-21 13:40] LABS: ALKALINE PHOSPHATASE 183 U/L (45-117); TOTAL BILIRUBIN ADULT 0.5 MG/DL (0.2-1.0)
[2017-09-21] MEDS ORDERED: MANNITOL 12.5 GM/50 ML VIAL IV PRN (13:45)
[2017-09-21] MEDS ORDERED: cloNIDine HCL 0.1 MG TAB PO PRN (13:45)
[2017-09-21] MEDS ORDERED: HEPARIN SODIUM - IV 10,000 UNITS/10 ML VIAL IV FLUSH PRN (13:45)
[2017-09-21] MEDS ORDERED: ACETAMINOPHEN 325 MG TAB PO PRN (13:45)
[2017-09-21] MEDS ORDERED: NITROGLYCERIN 0.4 MG SL 25 TABS/BTL SL PRN (13:45)
[2017-09-21] MEDS ORDERED: ALBUMIN 25% INJ 100 ML IV PRN (13:45)
[2017-09-21] MEDS ORDERED: HEPARIN SODIUM - IV 10,000 UNITS/10 ML VIAL PRN (13:45)
[2017-09-21] MEDS ORDERED: ONDANSETRON HCL 4 MG/2 ML VIAL IV PUSH PRN (13:45)
[2017-09-21] MEDS ORDERED: GENTAMICIN SULFATE (DIALYSIS USE ONLY) 20 MG/2 ML VIAL OTHER PRN (13:45)
[2017-09-21 14:02] LABS: HEMOGLOBIN A1a 1.3 %; HEMOGLOBIN A1b 1.3 %; HEMOGLOBIN Ao 75.9 %; HEMOGLOBIN F 1.9 %; HEMOGLOBIN LA1C 2.5 %; HEMOGLOBIN P3 5.2 %
[2017-09-21] MEDS ORDERED: VANCOMYCIN INJ 1,000 MG in SODIUM CHLOR 0.9% 250 ML INJ 250 ML IV ONE (15:00)
[2017-09-21] MEDS: EPOETIN ALFA 10,000 UNITS/ML VIAL IV PUSH PRN (16:29)
--- NOTE | 2017-09-21 17:34 | PD.VS.PN ---
Subjective Subjective/Hospital Course Pt well known to me with marked progression of L forefoot ischemia that started as cellulitis. Presented to clinic and because of malaise and rapid progression , I suggested admission. Objective Vitals/I&O Date Time Temp Pulse Resp B/P (MAP) Pulse Ox O2 Delivery O2 Flow Rate FiO2 09/21/17 12:01 98.0 95 20 161/79 (106) 98 09/21/17 09/21/17 09/21/17 07:00 15:00 23:00 Output Total 1500 ml Balance -1500 ml Physical Exam Foot with forefoot ischemia. Laboratory Laboratory Tests Test 09/21/17 12:50 09/21/17 12:55 Prothrombin Time 11.7 Prothromb Time International Ratio 1.2 Blood Urea Nitrogen 58 Creatinine 8.98 Random Glucose 157 Total Protein 7.5 Albumin 2.7 Calcium Level 10.1 Alkaline Phosphatase 183 Aspartate Amino Transf (AST/SGOT) 25 Alanine Aminotransferase (ALT/SGPT) 25 Total Bilirubin 0.5 Sodium Level 135 Potassium Level 4.4 Chloride Level 96 Carbon Dioxide Level 31.0 Anion Gap 8 Estimat Glomerular Filtration Rate 7 Hemoglobin A1c 11.5 White Blood Count 11.3 Red Blood Count 3.48 Hemoglobin 9.5 Hematocrit 29.5 Mean Corpuscular Volume 84.7 Mean Corpuscular Hemoglobin 27.3 Mean Corpuscular Hemoglobin Concent 32.2 Red Cell Distribution Width 17.2 Platelet Count 396 Mean Platelet Volume 8.4 Neutrophils (%) (Auto) 77.3 Lymphocytes (%) (Auto) 8.5 Monocytes (%) (Auto) 9.6 Eosinophils (%) (Auto) 3.6 Basophils (%) (Auto) 1.0 Neutrophils # (Auto) 8.7 Lymphocytes # (Auto) 1.0 Monocytes # (Auto) 1.1 Eosinophils # (Auto) 0.4 Basophils # (Auto) 0.1 CBC Comment DIFF FINAL Differential Comment Lactic Acid Level 1.0 Date/Time Source Procedure Growth Status 09/21/17 12:55 Blood Peripheral Aerobic Blood Culture Pending Received 09/21/17 12:55 Blood Peripheral Anaerobic Blood Culture Pending Received Assessment and Plan Plan 1. Wound care to foot: W to D for now 2. Plan for angio on Sunday - scheduled. Will follow. Randy Ortiz MD Sep 21, 2017 17:34
[2017-09-21] MEDS: PIPERACIL-TAZO 2.25 GM PREMIX 50 ML IV SCH (17:46)
--- NOTE | 2017-09-21 18:06 | MB ---
cc: ANABELLA JEFFERS MD DATE OF CONSULTATION: 09/21/2017. REASON FOR CONSULTATION: End-stage renal disease on hemodialysis for management. HISTORY OF PRESENT ILLNESS: This is a 57-year-old male with past medical history of hypertension, diabetes mellitus, chronic obstructive pulmonary disease, peripheral vascular disease, chronic anemia, end-stage renal disease on hemodialysis who came to the hospital with complaint of pain in the right foot. I was called to see the patient for management of dialysis. The patient has been on hemodialysis Sunday, Sunday and Sunday. His last treatment was done on Sunday. The patient was recently discharged on September 05 and at that time he was admitted with possibility of foot cellulitis and the patient had surgery done on July [address] Ortiz with a left second toe amputation. The patient has been on hemodialysis Sunday, Sunday and Sunday at [facility] and following with Dr. Satinder Billings. The patient has had increasing pain in the left foot and this was the main reason that he came to the hospital. He denies any history of fever or chills. There is no nausea, vomiting. No shortness breath. PAST MEDICAL HISTORY: 1. Hypertension. 2. Diabetes mellitus. 3. Peripheral vascular disease. 4. Chronic anemia. 5. Chronic obstructive pulmonary disease. 6. End-stage renal disease on hemodialysis. PAST SURGICAL HISTORY: 1. AV fistula surgery. 2. Left second toe amputation. REVIEW OF SYSTEMS: Denies any history of fever. No headache, dizziness or blurring of vision. No shortness of breath. No chest pain. No palpitations. No nausea or vomiting. No abdominal pain. No history of diarrhea. He has pain in the left foot and the pain has been increasing. There is some foul-smelling discharge. SOCIAL HISTORY: The patient has a past history of smoking. There is no history of heavy alcoholism. FAMILY HISTORY: Noncontributory. ALLERGIES: HE HAS NO KNOWN DRUG ALLERGIES. MEDICATIONS: Currently he is on the following medications: 1. Vancomycin one dose today. 2. Zosyn 2.25 grams IV q. 12 hours. 3. Insulin detemir 5 units subcutaneous q. 12 hours. 4. Zofran as needed. PHYSICAL EXAMINATION: GENERAL: On examination, the patient is awake and alert. He is currently on hemodialysis. VITAL SIGNS: Last blood pressure was 161/79, temperature is 98, oxygen saturation is 97% to 98%. HEAD, EYES, EARS, NOSE, THROAT: The pupils are mid-constricted. Nonicteric sclerae. Conjunctivae are normal. NECK: The neck is supple. JVD is not elevated. LUNGS: The patient has bilateral good air entry with no wheezing. HEART: S1 and S2 regular rhythm. ABDOMEN: Abdomen soft and lax. There is no tenderness. Bowel sounds positive. EXTREMITIES: There is mild edema in the legs. The left foot is covered with a dressing and there is some foul-smelling discharge. INVESTIGATIONS: White blood cell count is 11.3, hemoglobin 9.5, platelet count of 396,000, neutrophils 77.3. Sodium 135, potassium 4.4, chloride 96, bicarbonate 31, BUN 58, creatinine 8.9, glucose 157, hemoglobin A1c is 11.5, calcium is 10.0. The last phosphorus was 5.7. AST and ALT are normal. Alkaline phosphatase is 183. Albumin is 2.7. INR is 1.2. Wound culture at the last admission was positive for Staph aureus and Enterococcus. IMAGING STUDIES: The patient has no recent imaging studies done. ASSESSMENT AND PLAN: 1. Left foot infection. 2. Hypertension. 3. End-stage renal disease on hemodialysis. 4. Diabetes mellitus. 5. Anemia. 6. History of COPD. The patient has been started on antibiotics. He will be getting Vancomycin during the dialysis and will continue the Vancomycin with the dialysis and continue the Zosyn. Follow the cultures. Discontinue the IV fluids. Epogen at a lower dose for anemia. Thank you for the consultation and I will follow the patient while he is in the hospital. MD HIREN Ponce/CRISTOBAL /3:37 PM /5:49 PM
[2017-09-21] MEDS ORDERED: MORPHINE SULFATE 4 MG/ML INJ IV PUSH PRN ×2 (19:00)
[2017-09-21] MEDS: MORPHINE SULFATE 4 MG/ML INJ IV PUSH PRN ×2 (19:03→23:05)
[2017-09-21] MEDS: INSULIN DETEMIR 100 UNITS/ML VIAL SQ SCH (21:00)
[2017-09-21] MEDS: SODIUM CHLORIDE 0.9% FLUSH 10 ML FLUSH IV FLUSH SCH (21:00)
[2017-09-21] MEDS: diphenhydrAMINE HCL 25 MG CAP PO PRN (23:05)
[2017-09-22] VITALS (29 sets, daily range): BP systolic 131–152; BP diastolic 59–74; PULSE 80–102; RESP 16–18; TEMP 98.3–99.7; O2SAT 92–99
[2017-09-22] MEDS: PIPERACIL-TAZO 2.25 GM PREMIX 50 ML IV SCH ×2 (03:59→15:12)
[2017-09-22] MEDS: MORPHINE SULFATE 4 MG/ML INJ IV PUSH PRN ×2 (03:59→08:04)
[2017-09-22 07:49] LABS: AUTOMATED NEUTROPHIL # 7.3 TH/MM3 (1.8-7.7); BASOPHIL # 0.1 TH/MM3 (0-0.2); BASOPHIL % 1.1 % (0.0-2.0); EOSINOPHIL # 0.5 TH/MM3 (0-0.4); EOSINOPHIL % 4.7 % (0.0-4.0); HEMATOCRIT 26.3 % (39.0-51.0); HEMO FLAGS DIFF FINAL; LYMPH % 10.5 % (9.0-44.0); LYMPHOCYTE # 1.1 TH/MM3 (1.0-4.8); MEAN CELL VOLUME 83.7 FL (80.0-100.0); MEAN CORPUSCULAR HEMOGLOBIN 27.4 PG (27.0-34.0); MEAN CORPUSCULAR HGB CONC 32.7 % (32.0-36.0); MONO % 13.4 % (0.0-8.0); NEUT % 70.3 % (16.0-70.0); PLATELET COUNT 380 TH/MM3 (150-450); RED BLOOD COUNT 3.15 MIL/MM3 (4.50-5.90); RED CELL DISTRIBUTION WIDTH 17.3 % (11.6-17.2); WHITE BLOOD COUNT 10.4 TH/MM3 (4.0-11.0)
[2017-09-22] MEDS: INSULIN ASPART SUPPLEMENTAL SCALE SQ SCH ×4 (08:00→21:38)
[2017-09-22 08:36] LABS: POTASSIUM 4.3 MEQ/L (3.5-5.1)
[2017-09-22] MEDS: SODIUM CHLORIDE 0.9% FLUSH 10 ML FLUSH IV FLUSH SCH ×2 (08:36→21:38)
[2017-09-22] MEDS: INSULIN DETEMIR 100 UNITS/ML VIAL SQ SCH ×2 (08:36→21:38)
[2017-09-22] MEDS: GABAPENTIN 100 MG CAP PO SCH ×3 (10:03→17:45)
--- NOTE | 2017-09-22 10:03 | PD.VS.PN ---
Subjective Subjective/Hospital Course Pain modestly controlled no fevers xin HD Objective Vitals/I&O Date Time Temp Pulse Resp B/P (MAP) Pulse Ox O2 Delivery O2 Flow Rate FiO2 09/22/17 08:16 98.8 89 18 139/66 (90) 99 09/22/17 06:21 92 09/22/17 06:00 94 09/22/17 05:00 90 09/22/17 04:00 99.7 90 18 137/65 (89) 96 09/22/17 04:00 93 09/22/17 03:00 94 09/22/17 02:00 92 09/22/17 01:00 94 09/22/17 00:00 90 09/21/17 23:00 99.6 98 20 143/76 (98) 97 09/21/17 23:00 98 09/21/17 22:00 98 09/21/17 21:00 104 09/21/17 20:00 108 09/21/17 20:00 99.5 98 16 152/69 (96) 97 09/21/17 19:00 98 09/21/17 17:00 98.1 94 18 174/88 (116) 98 09/21/17 12:01 98.0 95 20 161/79 (106) 98 09/22/17 09/22/17 09/22/17 07:00 15:00 23:00 Intake Total 480 ml Output Total 200 ml Balance 280 ml Physical Exam L foot with no streaking erythema Laboratory Laboratory Tests Test 09/21/17 12:50 09/21/17 12:55 09/22/17 07:19 Prothrombin Time 11.7 Prothromb Time International Ratio 1.2 Blood Urea Nitrogen 58 41 Creatinine 8.98 7.38 Random Glucose 157 80 Total Protein 7.5 Albumin 2.7 Calcium Level 10.1 8.9 Alkaline Phosphatase 183 Aspartate Amino Transf (AST/SGOT) 25 Alanine Aminotransferase (ALT/SGPT) 25 Total Bilirubin 0.5 Sodium Level 135 139 Potassium Level 4.4 4.3 Chloride Level 96 99 Carbon Dioxide Level 31.0 31.0 Anion Gap 8 9 Estimat Glomerular Filtration Rate 7 9 Hemoglobin A1c 11.5 White Blood Count 11.3 10.4 Red Blood Count 3.48 3.15 Hemoglobin 9.5 8.6 Hematocrit 29.5 26.3 Mean Corpuscular Volume 84.7 83.7 Mean Corpuscular Hemoglobin 27.3 27.4 Mean Corpuscular Hemoglobin Concent 32.2 32.7 Red Cell Distribution Width 17.2 17.3 Platelet Count 396 380 Mean Platelet Volume 8.4 8.0 Neutrophils (%) (Auto) 77.3 70.3 Lymphocytes (%) (Auto) 8.5 10.5 Monocytes (%) (Auto) 9.6 13.4 Eosinophils (%) (Auto) 3.6 4.7 Basophils (%) (Auto) 1.0 1.1 Neutrophils # (Auto) 8.7 7.3 Lymphocytes # (Auto) 1.0 1.1 Monocytes # (Auto) 1.1 1.4 Eosinophils # (Auto) 0.4 0.5 Basophils # (Auto) 0.1 0.1 CBC Comment DIFF FINAL DIFF FINAL Differential Comment Lactic Acid Level 1.0 Date/Time Source Procedure Growth Status 09/21/17 12:55 Blood Peripheral Aerobic Blood Culture Pending Received 09/21/17 12:55 Blood Peripheral Anaerobic Blood Culture Pending Received Assessment and Plan Plan 1. Wound care to foot: W to D for now 2. Plan for angio on Sunday - scheduled and discussed with patient Randy Ortiz MD Sep 22, 2017 10:03
[2017-09-22] MEDS: ACETAMINOPHEN 325 MG TAB PO SCH ×3 (10:04→23:52)
[2017-09-22] MEDS: HYDROmorphone HCL PF 1 MG/ML VIAL IV PUSH PRN ×3 (12:06→21:41)
[2017-09-22] MEDS ORDERED: BACLOFEN 10 MG TAB PO ONE (12:30)
--- NOTE | 2017-09-22 12:34 | HHI.NPPN ---
Subjective History of Present Illness This is a 57-year-old male with past medical history of hypertension, diabetes mellitus, chronic obstructive pulmonary disease, peripheral vascular disease, chronic anemia, end-stage renal disease on hemodialysis who came to the hospital c/o Left foot pain Additional Remarks c/o hiccups Objective Data Data Vital Signs Date Time Temp Pulse Resp B/P (MAP) Pulse Ox O2 Delivery O2 Flow Rate FiO2 09/22/17 12:04 99.2 93 18 135/59 (84) 96 09/22/17 10:00 98 09/22/17 09:00 94 09/22/17 08:16 98.8 89 18 139/66 (90) 99 09/22/17 08:00 92 09/22/17 07:00 94 09/22/17 06:21 92 09/22/17 06:00 94 09/22/17 05:00 90 09/22/17 04:00 99.7 90 18 137/65 (89) 96 09/22/17 04:00 93 09/22/17 03:00 94 09/22/17 02:00 92 09/22/17 01:00 94 09/22/17 00:00 90 09/21/17 23:00 99.6 98 20 143/76 (98) 97 09/21/17 23:00 98 09/21/17 22:00 98 09/21/17 21:00 104 09/21/17 20:00 108 09/21/17 20:00 99.5 98 16 152/69 (96) 97 09/21/17 19:00 98 09/21/17 17:00 98.1 94 18 174/88 (116) 98 -: 09/22/17 0719 09/22/17 0719 Microbiology 09/21/17 Aerobic Blood Culture - Preliminary, Resulted NO GROWTH IN 1 DAY 09/21/17 Anaerobic Blood Culture - Preliminary, Resulted NO GROWTH IN 1 DAY 09/21/17 Aerobic Blood Culture - Preliminary, Resulted NO GROWTH IN 1 DAY 09/21/17 Anaerobic Blood Culture - Preliminary, Resulted NO GROWTH IN 1 DAY Physical Exam General Appearance: Well Developed Neck Neck Exam: Neck Supple Pulmonary Resp Exam: Clear Bilaterally, Breath Sounds Equal Cardiology CV Exam: Regular Gastrointestinal/Abdomen GI Exam: Soft, Non-Tender, Bowel Sounds Present Extremeties Extremities Exam: Trace Edema (left foot dressed) Assessment/Plan Problem List: (1) ESRD (end stage renal disease) ICD Codes: N18.6 - End-stage renal disease Status: Acute Plan: patient was dialyzed yesterday 1.5 L he has hiccups give Baclofen 10 mg x 1 continue to observe next HD in am (2) DM (diabetes mellitus) ICD Codes: E11.9 - Type 2 diabetes mellitus without complications Status: Chronic Plan: monitor BG (3) PAD (peripheral artery disease) ICD Codes: I73.9 - Peripheral vascular disease, unspecified Status: Chronic Plan: Vascular surgery following Edd Tomas MD Sep 22, 2017 12:34
--- NOTE | 2017-09-22 15:21 | HHI.FPPN ---
Subjective Remarks Patient is a 57-year-old male with primary medical history of end-stage renal disease on hemodialysis, COPD, Type 1 DM who came into the hospital as direct admission from his Drs recommendation. He presented to office for complaints of increasing left foot pain. Patient is status post toe amputation last July 2017 he is now residing at [facility] where in he has a wound care consult that takes care of of his wound. As per patient the wound doctor has cleaned out his right great toe blister, and has also cleaned out some of the slough on the left foot. He went to Dr. Ortiz's office and told his Dr that he has increasing pain on the left foot at the bottom side and they had immediately asked him to be evaluated in the hospital. Patient states that he was on IV antibiotics that was given to him during dialysis and his last dose was last Sunday., With increased pain of the left bottom foot part with standing or walking, patient states he feels it is "on fire." Otherwise, denies SOB/ dyspnea. Denies chest pain, palpitations, headaches, dizziness. Denies fevers, chills, n/v/d. today he feels comfortable resting and his pain meds are working well. Review of Systems Except as stated in HPI: all other systems reviewed are Neg Past Family Social History Past Medical History Renal failure, on dialysis due to diabetes. * AV fistula on left arm Diabetes Mellitus at age 22, type 1 insulin dependent HTN Anemia HLD COPD Past Surgical History Left second toe amputation AV fistula placement Reported Medications Reported Meds & Active Scripts Active Percocet (Oxycodone-Acetaminophen) 5-325 mg Tab 1 Tab PO Q4H PRN Levofloxacin 500 Mg Tablet 500 Mg PO Q48H Hydrocodone-Acetaminophen 5-325 mg Tab 1-2 Tab PO Q4HR PRN Levemir Inj (Insulin Detemir) 1,000 unit/ 10 ML Vial 5 Units SQ HS 30 Days Do not mix with any other Insulin. Levemir Inj (Insulin Detemir) 1,000 unit/ 10 ML Vial 10 Units SQ DAILYAC 30 Days Do not mix with any other Insulin. Symbicort Inh (Budesonide/Formoterol Fumarate) 160-4.5 Mcg/Act Aero 1 Puff INH Q12HR Novolog Inj (Insulin Aspart) 100 Unit/Ml Inj 5 Units SQ WITH MEALS [address] (Duloxetine HCl) 30 Mg Capdr 30 Mg PO DAILY Atorvastatin (Atorvastatin Calcium) 40 Mg Tab 40 Mg PO HS Reported Vitamin D3 (Cholecalciferol) 1,000 Unit Cap 1,000 Units PO DAILY Dialyvite 800/Zinc 15 (B-Complex W/ C-Zn & Folic Acid) 1 Tab 1 Tab DAILY Allergies: Coded Allergies: No Known Allergies (Verified Allergy, Unknown, 09/03/17) Family History Mother of cancer at age of 70 Father of heart disease at the age of 70 Social History Denies alcohol use Former smoker, a third of a pack per day for 30 years Denies illicit drug use his history was obtained largely from the excellent note by Dr Parish as well as my former knowledge of this pt from his prior hospitalization Objective Vitals Vital Signs Date Time Temp Pulse Resp B/P (MAP) Pulse Ox O2 Delivery O2 Flow Rate FiO2 09/22/17 15:07 98.3 92 18 131/69 (89) 99 09/22/17 14:35 93 09/22/17 13:14 102 09/22/17 12:04 99.2 93 18 135/59 (84) 96 09/22/17 12:00 90 09/22/17 11:00 93 09/22/17 10:00 98 09/22/17 09:00 94 09/22/17 08:16 98.8 89 18 139/66 (90) 99 09/22/17 08:00 92 09/22/17 07:00 94 09/22/17 06:21 92 09/22/17 06:00 94 09/22/17 05:00 90 09/22/17 04:00 99.7 90 18 137/65 (89) 96 09/22/17 04:00 93 09/22/17 03:00 94 09/22/17 02:00 92 09/22/17 01:00 94 09/22/17 00:00 90 09/21/17 23:00 99.6 98 20 143/76 (98) 97 09/21/17 23:00 98 09/21/17 22:00 98 09/21/17 21:00 104 09/21/17 20:00 108 09/21/17 20:00 99.5 98 16 152/69 (96) 97 09/21/17 19:00 98 09/21/17 17:00 98.1 94 18 174/88 (198) 98 I/O 09/21/17 09/21/17 09/21/17 09/22/17 09/22/17 09/22/17 07:00 15:00 23:00 07:00 15:00 23:00 Intake Total 480 ml Output Total 1500 ml 200 ml Balance -1500 ml 280 ml Intake Oral 480 ml Output Urine Total 200 ml Hemodialysis 1500 ml Result Diagram: 09/22/1771809/22/17718 Objective Remarks GENERAL: This is a well-nourished, well-developed patient, in no apparent distress. SKIN: Warm and dry. Right great toe scab wound healing. Left amputation site and the second toe with pinpoint opening draining serous fluid. Left anterior portion of the foot slough present with eschar on the borders. HEAD: Normocephalic. EYES: Pupils equal round and reactive. Extraocular motions intact. No scleral icterus. No injection or drainage. ENT: Nose without bleeding. Throat without erythema. Uvula midline. Airway patent. NECK: Trachea midline. CARDIOVASCULAR: Regular rate without murmurs, gallops, or rubs. RESPIRATORY: Clear to auscultation. Breath sounds equal bilaterally. No wheezes , rales, or rhonchi. GASTROINTESTINAL: Abdomen soft, non-tender, nondistended. Bowel sounds active 4. No guarding. MUSCULOSKELETAL: Extremities without clubbing, cyanosis, or edema. Left forearm fistula positive thrill and bruit. Right DP and PD Doppler (+). Left DP Doppler (+) NEUROLOGICAL: Awake and alert. Cranial nerves II through XII intact. Motor and sensory grossly within normal limits. Normal speech. Urinary Catheter: No Vascular Central Line Catheter: No A/P Assessment and Plan Patient is a 57-year-old male with primary medical history of end-stage renal disease on hemodialysis, COPD, Type 1 DM who came into the hospital as direct admission from where he presented to office for complaints of increasing left foot pain. Left foot cellulitis, questionable osteomyelitis PAD - S/P recent second toe amputation secondary to osteomyelitis. Previous cultures grew staph aureus and Enterococcus faecalis 09/03/17 sensitive to daptomycin, Zyvox, vancomycin - Check blood cultures, Check wound cultures - vancomycin, Zosyn IV antibiotics for anaerobe coverage - Consult vascular surgery Dr. Ortiz for further evaluation and recommendation - Follow up labs - PT evaluation - Pain management with IV morphine, [facility]'s. End-stage renal disease on hemodialysis - Consult nephrology for continuation of hemodialysis while inpatient - Left AV fistula positive thrill and bruit - Renal diet - Follow-up labs Type 1 diabetes, with hyperglycemia - Continue home medication with insulin Levemir - Start insulin sliding scale, monitor for hypoglycemia. COPD, not in exacerbation - Monitor respiratory status DVT prop SCDs Code Status Full code Discharge Planning He will be having a procedure on his foot on Sunday and will be on abx in the meantime. Dr Ortiz may want to revascularize this pt. Jasmyne Armijo MD Sep 22, 2017 15:21
[2017-09-22] MEDS: chlorproMAZINE HCL 25 MG TAB PO PRN (17:45)
[2017-09-22] MEDS ORDERED: chlorproMAZINE INJ 25 MG in SODIUM CHLORID 0.9% 500 ML INJ 500 ML IV PRN (18:00)
[2017-09-23] VITALS (25 sets, daily range): BP systolic 124–147; BP diastolic 53–75; PULSE 82–107; RESP 16–18; TEMP 98.7–100.1; O2SAT 94–100
[2017-09-23] MEDS: PIPERACIL-TAZO 2.25 GM PREMIX 50 ML IV SCH ×2 (03:30→14:57)
[2017-09-23 06:29] LABS: HEMATOCRIT 29.2 % (39.0-51.0); MEAN CELL VOLUME 83.6 FL (80.0-100.0); MEAN CORPUSCULAR HEMOGLOBIN 27.6 PG (27.0-34.0); PLATELET COUNT 358 TH/MM3 (150-450); RED BLOOD COUNT 3.49 MIL/MM3 (4.50-5.90); REVIEW FLAG FINAL; WHITE BLOOD COUNT 11.8 TH/MM3 (4.0-11.0)
[2017-09-23 07:07] LABS: BICARBONATE 29.3 MEQ/L (21.0-32.0); POTASSIUM 4.6 MEQ/L (3.5-5.1)
[2017-09-23] MEDS: INSULIN ASPART SUPPLEMENTAL SCALE SQ SCH ×4 (08:00→21:00)
[2017-09-23] MEDS: GABAPENTIN 100 MG CAP PO SCH ×3 (09:23→17:20)
[2017-09-23] MEDS: ACETAMINOPHEN 325 MG TAB PO SCH ×2 (09:23→17:20)
[2017-09-23] MEDS: SODIUM CHLORIDE 0.9% FLUSH 10 ML FLUSH IV FLUSH SCH ×2 (09:24→21:36)
[2017-09-23] MEDS: INSULIN DETEMIR 100 UNITS/ML VIAL SQ SCH ×2 (09:24→21:36)
[2017-09-23] MEDS: HYDROmorphone HCL PF 1 MG/ML VIAL IV PUSH PRN ×3 (09:25→21:36)
--- NOTE | 2017-09-23 10:21 | HHI.FPPN ---
Subjective Remarks Patient is lying in bed in no distress. His pain is better controlled than yesterday. He reports the gabapentin and Dilaudid are helping better than the morphine. The Tylenol also seems to be helping. He reports no changes in his foot wound. He experiences "fire" in the bottom of his feet but it does feel better since admission. He reports no chest pain, shortness of breath, abdominal pain, nausea, vomiting, diarrhea. He does feel a little constipated, will start a scheduled bowel regimen. He has no other complaints today. He is awaiting angiography and possible vascular intervention tomorrow morning. (Albin Guerra MD R3) Objective Vitals Vital Signs Date Time Temp Pulse Resp B/P (MAP) Pulse Ox O2 Delivery O2 Flow Rate FiO2 09/23/17 09:08 91 09/23/17 08:16 92 09/23/17 07:27 99.0 87 18 141/63 (89) 100 09/23/17 07:02 89 09/23/17 06:00 84 09/23/17 05:00 82 09/23/17 04:00 86 09/23/17 04:00 98.7 86 16 128/71 (90) 99 09/23/17 03:00 86 09/23/17 02:00 84 09/23/17 01:00 86 09/23/17 00:00 87 09/23/17 00:00 99.1 87 16 124/56 (78) 99 09/22/17 23:00 86 09/22/17 22:00 96 09/22/17 21:00 96 09/22/17 20:00 99.1 95 16 152/74 (100) 97 09/22/17 20:00 87 09/22/17 19:00 94 09/22/17 18:35 99 09/22/17 18:01 99 21 09/22/17 17:07 99 09/22/17 16:25 93 09/22/17 15:07 98.3 92 18 131/69 (89) 99 09/22/17 15:00 80 09/22/17 14:35 93 09/22/17 13:14 102 09/22/17 12:04 99.2 93 18 135/59 (84) 96 09/22/17 12:00 90 09/22/17 11:00 93 I/O 09/22/17 09/22/17 09/22/17 09/23/17 09/23/17 09/23/17 07:00 15:00 23:00 07:00 15:00 23:00 Intake Total 480 ml 590 ml 480 ml Output Total 200 ml Balance 280 ml 590 ml 480 ml Intake Oral 480 ml 540 ml 480 ml IV Total 50 ml Output Urine Total 200 ml # Voids 1 (Albin Guerra MD R3) Result Diagram: 09/23/17 0610 09/23/17 0610 Objective Remarks GENERAL: Lying in bed, no distress SKIN: Right great toe scab wound healing. Left second toe is amputated with small opening draining purulent fluid. Left dorsum of foot with slough and eschar. Foot is foul smelling. HEENT: Normocephalic, no nasal discharge, no scleral icterus or injection CARDIOVASCULAR: Regular rate without murmurs, gallops, or rubs. Left forearm AV fistula positive thrill and bruit. RESPIRATORY: Clear to auscultation. Breath sounds equal bilaterally. No wheezes , rales, or rhonchi. GASTROINTESTINAL: Abdomen soft, non-tender, nondistended, normal bowel sounds MUSCULOSKELETAL: Palpable but weak dorsalis pedis and posterior tibial pulses. No edema. NEUROLOGICAL: Awake and alert. (Albin Guerra MD R3) A/P Assessment and Plan 57-year-old male with medical history of end-stage renal disease on hemodialysis MWF, COPD, Type 1 DM that is uncontrolled, and peripheral vascular disease, who presents with left foot infection. Discharge Planning Angiogram scheduled for 09/24 with possible intervention. (Albin Guerra MD R3) Attending Attestation Patient seen and examined. Case reviewed and discussed with the resident team. Agree with plan of care as discussed with me and documented in the resident note.he is stable. appreciate help of podiatry and vascular (Jasmyne Armijo MD) Problem List: (1) Cellulitis of foot, left ICD Codes: L03.116 - Cellulitis of left lower limb Status: Acute Plan: History of amputation of the left second toe, now with infected gangrenous foot draining purulent fluid. Has history of uncontrolled type 1 diabetes with peripheral neuropathy as well as peripheral vascular disease. Previous cultures for the foot grew staph aureus and enterococcus faecalis sensitive to daptomycin, Zyvox, and vancomycin. Patient afebrile with mild leukocytosis. - Follow blood and wound cultures - Vancomycin and Zosyn started 09/21/17 - Consulted vascular surgery Dr. Ortiz, appreciate recommendations - Pain management with gabapentin for neuropathic etiology, Dilaudid due to ESRD , and Tylenol scheduled. - Plan for angiogram on 09/24 with possible vascular intervention at that time. - Recently quit smoking, encourage continued abstinence from tobacco use. - Encourage better control of diabetes and closer follow up with PCP. (2) Diabetes type 1, uncontrolled ICD Codes: E10.65 - Type 1 diabetes mellitus with hyperglycemia Status: Chronic Plan: Type 1 diabetes that is poorly controlled. A1C is 11.5. Blood glucoses here have been relatively well controlled. - Continue home medication with Levemir 5 units bid - Sliding scale insulin. - Order in service educator for poorly controlled diabetes. (3) End stage renal disease ICD Codes: N18.6 - End-stage renal disease Status: Chronic Plan: End-stage renal disease on hemodialysis - Consult nephrology for continuation of hemodialysis while inpatient - Left AV fistula with positive thrill and bruit - Renal diet - Avoid nephrotoxic agents as much as possible, monitor vancomycin levels, vancomycin pharmacy consult (4) COPD (chronic obstructive pulmonary disease) ICD Codes: J44.9 - Chronic obstructive pulmonary disease, unspecified Status: Chronic Plan: COPD, not in exacerbation - DuoNebs PRN (5) No contraindication to deep vein thrombosis (DVT) prophylaxis ICD Codes: Z78.9 - Other specified health status Status: Acute Plan: - Heparin 5000 units tid (6) Nutrition, metabolism, and development symptoms ICD Codes: R63.8 - Other symptoms and signs concerning food and fluid intake Status: Acute Plan: ESRD, monitor electrolytes Renal diet, NPO after midnight for procedure tomorrow (Albin Guerra MD R3) Albin Guerra MD R3 Sep 23, 2017 10:21 Jasmyne Armijo MD Sep 25, 2017 10:45
[2017-09-23] MEDS ORDERED: RESP: ALBUTEROL 2.5 MG/IPRATROPIUM 0.5 MG NEB (PRN) NEB (10:30)
[2017-09-23] MEDS ORDERED: Vancomycin Consult Pharmacy 1 EA OTHER SCH (10:30)
[2017-09-23] MEDS: DOCUSATE SODIUM 50 MG/SENNA 8.6 MG TAB PO SCH ×2 (11:19→21:36)
[2017-09-23] MEDS: HEPARIN SODIUM - SQ 10,000 UNITS/ML VIAL SQ SCH ×2 (11:22→17:21)
--- NOTE | 2017-09-23 13:06 | HHI.NPPN ---
Subjective History of Present Illness This is a 57-year-old male with past medical history of hypertension, diabetes mellitus, chronic obstructive pulmonary disease, peripheral vascular disease, chronic anemia, end-stage renal disease on hemodialysis who came to the hospital c/o Left foot pain Additional Remarks feel better but weak Objective Data Data Vital Signs Date Time Temp Pulse Resp B/P (MAP) Pulse Ox O2 Delivery O2 Flow Rate FiO2 09/23/17 12:00 90 09/23/17 11:58 98.7 93 18 140/75 (96) 99 09/23/17 11:00 89 09/23/17 10:00 102 09/23/17 09:08 91 09/23/17 08:16 92 09/23/17 07:27 99.0 87 18 141/63 (89) 100 09/23/17 07:02 89 09/23/17 06:00 84 09/23/17 05:00 82 09/23/17 04:00 86 09/23/17 04:00 98.7 86 16 128/71 (90) 99 09/23/17 03:00 86 09/23/17 02:00 84 09/23/17 01:00 86 09/23/17 00:00 87 09/23/17 00:00 99.1 87 16 124/56 (78) 99 09/22/17 23:00 86 09/22/17 22:00 96 09/22/17 21:00 96 09/22/17 20:00 99.1 95 16 152/74 (100) 97 09/22/17 20:00 87 09/22/17 19:00 94 09/22/17 18:35 99 09/22/17 18:01 99 21 09/22/17 17:07 99 09/22/17 16:25 93 09/22/17 15:07 98.3 92 18 131/69 (89) 99 09/22/17 15:00 80 09/22/17 14:35 93 09/22/17 13:14 102 -: 09/23/17 0610 09/23/17 0610 Physical Exam General Appearance: Well Developed Neck Neck Exam: Neck Supple Pulmonary Resp Exam: Clear Bilaterally, Breath Sounds Equal Cardiology CV Exam: Regular Gastrointestinal/Abdomen GI Exam: Soft, Non-Tender, Bowel Sounds Present Extremeties Extremities Exam: Trace Edema (left foot dressed) Assessment/Plan Problem List: (1) ESRD (end stage renal disease) ICD Codes: N18.6 - End-stage renal disease Status: Acute Plan: patient was dialyzed Sunday 1.5 L continue to observe next HD in am Dr. Perry to follow lt foot infection Vanco/Jonathan (2) DM (diabetes mellitus) ICD Codes: E11.9 - Type 2 diabetes mellitus without complications Status: Chronic Plan: monitor BG (3) PAD (peripheral artery disease) ICD Codes: I73.9 - Peripheral vascular disease, unspecified Status: Chronic Plan: Vascular surgery following Edd Tomas MD Sep 23, 2017 13:06
[2017-09-24] VITALS (22 sets, daily range): BP systolic 117–163; BP diastolic 53–73; PULSE 84–110; RESP 16–18; TEMP 97.6–98.8; O2SAT 93–100
[2017-09-24] MEDS: ACETAMINOPHEN 325 MG TAB PO SCH ×3 (00:11→17:00)
[2017-09-24] MEDS: diphenhydrAMINE HCL 25 MG CAP PO PRN (03:29)
[2017-09-24] MEDS: PIPERACIL-TAZO 2.25 GM PREMIX 50 ML IV SCH ×2 (03:29→18:37)
[2017-09-24] MEDS: HEPARIN SODIUM - SQ 10,000 UNITS/ML VIAL SQ SCH ×3 (03:30→18:37)
[2017-09-24] MEDS: HYDROmorphone HCL PF 1 MG/ML VIAL IV PUSH PRN ×3 (03:30→20:00)
[2017-09-24] MEDS ORDERED: CHLORHEXIDINE GLUCONATE 2 % 1 PACK (2 CLOTHS) TOPICAL PRN (04:45)
[2017-09-24] MEDS ORDERED: SODIUM CHLORID 0.9% 500 ML IV PRN (04:45)
[2017-09-24] MEDS ORDERED: METOPROLOL TARTRATE 25 MG TAB PO PRN (04:45)
[2017-09-24] MEDS ORDERED: POVIDONE IODINE 5% (ANTISEPSIS KIT) 4 APPLICATIONS EACH NARE PRN (04:45)
[2017-09-24] MEDS ORDERED: LACTATED RINGER'S 1000 ML IV PRN (04:45)
[2017-09-24 07:37] LABS: HEMATOCRIT 26.4 % (39.0-51.0); MEAN CELL VOLUME 83.8 FL (80.0-100.0); MEAN CORPUSCULAR HEMOGLOBIN 27.7 PG (27.0-34.0); PLATELET COUNT 379 TH/MM3 (150-450); RED BLOOD COUNT 3.15 MIL/MM3 (4.50-5.90); RED CELL DISTRIBUTION WIDTH 17.4 % (11.6-17.2); REVIEW FLAG FINAL; WHITE BLOOD COUNT 11.3 TH/MM3 (4.0-11.0)
--- NOTE | 2017-09-24 07:56 | HHI.FPPN ---
Subjective Remarks Patient seen and examined this morning. Afebrile vital signs stable. Patient understands the plan is for angiogram today after dialysis with possible vascular repair if appropriate at that time. He is anxious to find out the results of the procedure. He is hoping to be able to keep his left foot. He reports this pain is tolerable at this time. (Harley Soni MD, R3) Objective Vitals Vital Signs Date Time Temp Pulse Resp B/P (MAP) Pulse Ox O2 Delivery O2 Flow Rate FiO2 09/24/17 06:00 84 09/24/17 05:00 84 09/24/17 04:00 84 09/24/17 03:00 86 09/24/17 03:00 98.7 89 16 122/57 (78) 99 09/24/17 02:00 86 09/24/17 01:00 88 09/24/17 00:00 86 09/23/17 23:00 91 09/23/17 23:00 98.9 91 16 125/53 (77) 94 09/23/17 22:00 96 09/23/17 21:00 96 09/23/17 20:00 102 09/23/17 19:00 100.1 96 16 132/60 (84) 96 09/23/17 19:00 107 09/23/17 16:13 101 09/23/17 15:01 98.7 94 18 147/64 (91) 98 09/23/17 15:00 91 09/23/17 14:13 92 09/23/17 13:40 95 09/23/17 12:00 90 09/23/17 11:58 98.7 93 18 140/75 (96) 99 09/23/17 11:00 89 09/23/17 10:00 102 09/23/17 09:08 91 09/23/17 08:16 92 I/O 09/23/17 09/23/17 09/23/17 09/24/17 09/24/17 09/24/17 07:00 15:00 23:00 07:00 15:00 23:00 Intake Total 480 ml 480 ml 480 ml Balance 480 ml 480 ml 480 ml Intake Oral 480 ml 480 ml 480 ml # Voids 1 1 (Harley Soni MD, R3) Result Diagram: 09/24/17 0716 09/23/17 0610 Objective Remarks GENERAL: Lying in bed, no distress SKIN: Right great toe scab wound healing. Left second toe is amputated with small opening draining purulent fluid. Left dorsum of foot with slough and eschar. Foot is foul smelling. HEENT: Normocephalic, no nasal discharge, no scleral icterus or injection CARDIOVASCULAR: Regular rate without murmurs, gallops, or rubs. Left forearm AV fistula positive thrill and bruit. RESPIRATORY: Clear to auscultation. Breath sounds equal bilaterally. No wheezes , rales, or rhonchi. GASTROINTESTINAL: Abdomen soft, non-tender, nondistended, normal bowel sounds MUSCULOSKELETAL: Palpable but weak dorsalis pedis and posterior tibial pulses. No edema. NEUROLOGICAL: Awake and alert. Medications and IVs Current Medications Medications (Trade) Dose Ordered Sig/April Route Start Time Stop Time Status Last Admin (NS Flush) 2 ml UNSCH PRN IV FLUSH 09/21/17 12:00 (NS Flush) 2 ml BID IV FLUSH 09/21/17 21:00 09/23/17 21:36 (Zofran Inj) 4 mg Q6H PRN IVP 09/21/17 12:00 (Milk Of Magnesia Liq) 30 ml Q12H PRN PO 09/21/17 12:00 (Senokot) 17.2 mg Q12H PRN PO 09/21/17 12:00 (Dulcolax Supp) 10 mg DAILY PRN RECTAL 09/21/17 12:00 (Lactulose Liq) 30 ml DAILY PRN PO 09/21/17 12:00 (NovoLOG SUPPLEMENTAL SCALE) 1 ACHS SLIDING SCALE SQ 09/21/17 12:00 09/23/17 21:00 (Levemir Inj) 5 units Q12HR SQ 09/21/17 21:00 09/23/17 21:36 (D50w (Vial) Inj) 50 ml UNSCH PRN IV PUSH 09/21/17 12:30 (Glucagon Inj) 1 mg UNSCH PRN OTHER 09/21/17 12:30 Sodium Chloride 1,000 ml @ 0 mls/hr Q0M PRN OTHER 09/21/17 13:35 (Heparin Inj) 8,000 units UNSCH PRN IV FLUSH 09/21/17 13:45 Sodium Chloride 1,000 ml @ 200 mls/hr Q5H PRN IV 09/21/17 13:35 Sodium Chloride 1,000 ml @ 0 mls/hr Q0M PRN OTHER 09/21/17 13:35 (Mannitol Inj) 12.5 gm UNSCH PRN IV 09/21/17 13:45 Albumin Human 100 ml @ 60 mls/hr UNSCH PRN IV 09/21/17 13:45 (NS Flush) 5 ml UNSCH PRN IV FLUSH 09/21/17 13:45 (Heparin Inj) UNSCH PRN .XX 09/21/17 13:45 (Gentamicin (Dialysis) Inj) 20 mg UNSCH PRN OTHER 09/21/17 13:45 (Zofran Inj) 4 mg UNSCH PRN IV PUSH 09/21/17 13:45 (Benadryl) 25 mg UNSCH PRN PO 09/21/17 13:45 09/24/17 03:29 (Nitrostat Sl) 0.4 mg UNSCH PRN SL 09/21/17 13:45 (Catapres) 0.1 mg UNSCH PRN PO 09/21/17 13:45 (Epogen Inj) 6,000 units UNSCH PRN IV PUSH 09/21/17 13:45 09/21/17 16:29 (Gelfoam 12 Mm/7 Mm Top) 1 foam UNSCH PRN TOP 09/21/17 13:45 Piperacillin Sod/ Tazobactam Sod 50 ml @ 100 mls/hr Q12H IV 09/21/17 15:00 09/24/17 03:29 Vancomycin HCl 1000 mg/Sodium Chloride 250 ml @ 250 mls/hr WITH DIALYSIS IV 09/21/17 15:45 (Narcan Inj) 0.4 mg UNSCH PRN IV PUSH 09/21/17 19:00 (Neurontin) 100 mg TID PO 09/22/17 09:00 09/23/17 17:20 (Tylenol) 650 mg Q8H PO 09/22/17 09:00 09/24/17 00:11 (Dilaudid Pf Inj) 0.5 mg Q3H PRN IV PUSH 09/22/17 08:45 09/24/17 03:30 (Dilaudid Pf Inj) 1 mg Q3H PRN IV PUSH 09/22/17 08:45 09/22/17 16:16 (Dilaudid Pf Inj) 1 mg Q3H PRN IV PUSH 09/22/17 08:45 (Thorazine) 25 mg Q6H PRN PO 09/22/17 17:15 09/22/17 17:45 (Thorazine Inj) 25 mg Q8H PRN IM 09/22/17 17:15 (Heparin Inj) 5,000 units Q8H SQ 09/23/17 10:00 09/24/17 03:30 (Odette-Colace) 1 tab BID PO 09/23/17 09:45 09/23/17 21:36 Pharmacy Profile Note 0 ml @ 0 mls/hr UNSCH OTHER 09/23/17 10:30 (Duoneb Neb) 1 ampule Q4HR NEB PRN NEB 09/23/17 10:30 Lactated Ringer's 1,000 ml @ 30 mls/hr Q24H PRN IV 09/24/17 04:45 09/27/17 04:44 Sodium Chloride 500 ml @ 30 mls/hr [id number] PRN IV 09/24/17 04:45 09/27/17 04:44 (Lopressor) 25 mg SCRAP HOOKER PRN PO 09/24/17 04:45 09/27/17 04:44 (Betadine 5% Antisepsis Kit) 1 applic SCRAP HOOKER PRN EACH NARE 09/24/17 04:45 09/27/17 04:44 (Chlorhexidine 2% Cloth) 3 pack SCRAP HOOKER PRN TOPICAL 09/24/17 04:45 09/27/17 04:44 (Harley Soni MD, R3) A/P Assessment and Plan 57-year-old male with medical history of end-stage renal disease on hemodialysis MWF, COPD, Type 1 DM that is uncontrolled, and peripheral vascular disease, who presents with left foot infection. Discharge Planning Angiogram scheduled for 09/24 with possible intervention. (Harley Soni MD, R3) Attending Attestation Patient seen and examined. Case reviewed and discussed with the resident team. Agree with plan of care as discussed with me and documented in the resident note. he has been diabetic since his teens or early 20s and assuredly has vascular disease everywhere. (Jasmyne Armijo MD) Problem List: (1) Cellulitis of foot, left ICD Codes: L03.116 - Cellulitis of left lower limb Status: Acute Plan: History of amputation of the left second toe, now with infected gangrenous foot draining purulent fluid. Has history of uncontrolled type 1 diabetes with peripheral neuropathy as well as peripheral vascular disease. Previous cultures for the foot grew staph aureus and enterococcus faecalis sensitive to daptomycin, Zyvox, and vancomycin. Patient afebrile with mild leukocytosis. - Follow blood and wound cultures - Vancomycin and Zosyn started 09/21/17 - Consulted vascular surgery Dr. Ortiz, appreciate recommendations - Pain management with gabapentin for neuropathic etiology, Dilaudid due to ESRD , and Tylenol scheduled. - Plan for angiogram on 09/24 with possible vascular intervention at that time. - Recently quit smoking, encourage continued abstinence from tobacco use. - Encourage better control of diabetes and closer follow up with PCP. (2) Diabetes type 1, uncontrolled ICD Codes: E10.65 - Type 1 diabetes mellitus with hyperglycemia Status: Chronic Plan: Type 1 diabetes that is poorly controlled. A1C is 11.5. Blood glucoses here have been relatively well controlled. - Continue home medication with Levemir 5 units bid - Sliding scale insulin. - Order hospice educator for poorly controlled diabetes. (3) End stage renal disease ICD Codes: N18.6 - End-stage renal disease Status: Chronic Plan: End-stage renal disease on hemodialysis - Consult nephrology for continuation of hemodialysis while inpatient - Left AV fistula with positive thrill and bruit - Renal diet - Avoid nephrotoxic agents as much as possible, monitor vancomycin levels, vancomycin pharmacy consult (4) COPD (chronic obstructive pulmonary disease) ICD Codes: J44.9 - Chronic obstructive pulmonary disease, unspecified Status: Chronic Plan: COPD, not in exacerbation - DuoNebs PRN (5) No contraindication to deep vein thrombosis (DVT) prophylaxis ICD Codes: Z78.9 - Other specified health status Status: Acute Plan: - Heparin 5000 units tid (6) Nutrition, metabolism, and development symptoms ICD Codes: R63.8 - Other symptoms and signs concerning food and fluid intake Status: Acute Plan: ESRD, monitor electrolytes Renal diet, NPO after midnight for procedure today (Harley Soni MD, R3) Harley Soni MD, R3 Sep 24, 2017 07:56 Jasmyne Armijo MD Sep 25, 2017 10:47
[2017-09-24] MEDS: INSULIN ASPART SUPPLEMENTAL SCALE SQ SCH ×4 (08:00→21:00)
[2017-09-24 08:01] LABS: BICARBONATE 27.7 MEQ/L (21.0-32.0); POTASSIUM 4.7 MEQ/L (3.5-5.1)
[2017-09-24] MEDS: DOCUSATE SODIUM 50 MG/SENNA 8.6 MG TAB PO SCH ×2 (08:13→22:08)
[2017-09-24] MEDS: INSULIN DETEMIR 100 UNITS/ML VIAL SQ SCH ×2 (08:14→22:08)
[2017-09-24] MEDS: GABAPENTIN 100 MG CAP PO SCH ×3 (08:14→18:37)
[2017-09-24] MEDS: SODIUM CHLORIDE 0.9% FLUSH 10 ML FLUSH IV FLUSH SCH ×2 (08:14→22:08)
[2017-09-24] MEDS: EPOETIN ALFA 10,000 UNITS/ML VIAL IV PUSH PRN (15:43)
[2017-09-24] MEDS: VANCOMYCIN INJ 1,000 MG in SODIUM CHLOR 0.9% 250 ML INJ 250 ML IV SCH (15:44)
--- NOTE | 2017-09-24 16:52 | HHI.NPPN ---
Subjective History of Present Illness 57-year-old male with past medical history of hypertension, diabetes mellitus, chronic obstructive pulmonary disease, peripheral vascular disease, chronic anemia, end-stage renal disease on hemodialysis who came to the hospital with complaint of pain in the right foot. I was called to see the patient for management of dialysis. The patient has been on hemodialysis Sunday, Sunday and Sunday. Additional Remarks Patient seen during HD, alert, has pain in left foot, no SOB. Objective Data Data Vital Signs Date Time Temp Pulse Resp B/P (MAP) Pulse Ox O2 Delivery O2 Flow Rate FiO2 09/24/17 13:01 92 09/24/17 12:00 86 09/24/17 11:30 98.7 93 18 150/73 (98) 100 09/24/17 11:00 95 09/24/17 10:01 96 09/24/17 09:00 88 09/24/17 08:15 98.8 93 18 158/71 (100) 100 09/24/17 08:00 90 09/24/17 07:00 86 09/24/17 06:00 84 09/24/17 05:00 84 09/24/17 04:00 84 09/24/17 03:00 86 09/24/17 03:00 98.7 89 16 122/57 (78) 99 09/24/17 02:00 86 09/24/17 01:00 88 09/24/17 00:00 86 09/23/17 23:00 91 09/23/17 23:00 98.9 91 16 125/53 (77) 94 09/23/17 22:00 96 09/23/17 21:00 96 09/23/17 20:00 102 09/23/17 19:00 100.1 96 16 132/60 (84) 96 09/23/17 19:00 107 -: 09/24/17 0716 09/24/17 0716 Microbiology 09/23/17 Gram Stain - Final, Resulted 09/23/17 Wound Culture - Preliminary, Resulted NO GROWTH IN 24 HOURS. Physical Exam General Appearance: No Acute Distress, Comfortable Neck Neck Exam: Neck Supple Pulmonary Resp Exam: Clear Bilaterally, Breath Sounds Equal Cardiology CV Exam: Regular Gastrointestinal/Abdomen GI Exam: Soft, Non-Tender, Bowel Sounds Present Extremeties Extremities Exam: Trace Edema (left foot dressed) Neurologic Neuro Exam: Alert, Awake, Oriented Psychiatric Psych Exam: Appropriate Responses Assessment/Plan Problem List: (1) ESRD (end stage renal disease) ICD Codes: N18.6 - End-stage renal disease Status: Acute (2) DM (diabetes mellitus) ICD Codes: E11.9 - Type 2 diabetes mellitus without complications Status: Chronic Plan: monitor BG (3) PAD (peripheral artery disease) ICD Codes: I73.9 - Peripheral vascular disease, unspecified Status: Chronic Plan: Vascular surgery following Plan Patient has HD done, now going for angiogram as per vascular. Hgb. dropped, on Epogen, will follow. BP is stable. On Vancoi. with HD and Zosyn. Joshua Perry MD Sep 24, 2017 16:52
--- NOTE | 2017-09-24 17:49 | HHI.PR ---
Immediate Post Op Note Procedure Date: Sep 24, 2017 Pre Op Diagnosis: L LE tissue loss, PAD Post Op Diagnosis: L LE tissue loss, PAD Surgeon: Randy Ortiz Medical Equipment Sales(s): none Procedure: Aortogram w/ L LE angiogram L PT RESEARCH CENTER DIRECTOR (3mm) R SET BUILDER Angioseal Findings: stenosis of distal PT in lower calf, successful RESEARCH CENTER DIRECTOR Complications: none Specimen(s) removed: none Estimated blood loss: 10mL Anesthesia: MAC Drains: None Patient to: Other (DOCU) Patient Condition: Good Date/Time of Procedure: SEE SURGICAL CARE RECORD Randy Ortiz MD Sep 24, 2017 17:49
--- NOTE | 2017-09-24 17:51 | CATHPROC ---
Equipment Equipment Time Generator Switchboard Operator Description Size Mfg Part Number Used/Scraped [id number] 16:57 ANGIO-DYNAMICS OMNI FLUSH 65CM CATHETER FR 5 Used *[id number] INTRODUCER SET, 16:57 [employer]. FR 5 [id number] *[id number] Used MICROPUNCTURE, STIFFENED CXI-4.0-35-135- 17:11 COOK/YNES CATHETER, FR4 CXI SUPPORT FR 4 Used P-NS-0 *[id number] KCFW-6.0-38-70- 17:14 COOK/YNES SHEATH, FR6 RAABE 70CM FR 6 Used RB WIRE, GUIDE APPROACH MILLER HEAD ASSISTANT WET PROCESS [id number] 17:17 COOK/YNES 300CM Used MICROWIRE *[id number] WIRE, STORQ STANDARD MOD J [id number] 17:12 CORDIS/ YNES 300CM Used 300CM *[id number] 17:37 DAIG/ST. JOSEE MEDICAL ANGIOSEAL, FR6 VIP FR 6 Used *[id number] BALLOON, AMPHIRION DEEP 3 X [id number] 17:27 INV[employer]EC [employer] 150CM Used 120 150CM *[id number] BALLOON, AMPHIRION DEEP 3 X [id number] 17:20 INVATEC [employer] 150CM Used 80 150CM *[id number] 16:57 [employer] INDUSTRIES PACK, CCL CUSTOM * Used *[id number] 16:57 [employer]ix MEDICAL PRESSURE TUBING 48" 48" [id number] Used [id number] 17:11 [employer] MEDICAL WIRE, LEE 260CM .035 260CM Used *[id number] 16:57 NAMIC TUBING, HIGH PRESSURE 20" 20" Used *[id number] 16:57 NYCOMED OMNIPAQUE, 300 MG, 150ML 150ML [id number] Used 16:57 NYCOMED OMNIPAQUE, 300 MG, 50ML 50ML [id number] Used [id number] 16:57 RIVERA MEDICAL BLANKET,WARM AIR CCL * Used *[id number] [id number] 16:57 TERUMO MEDICAL SHEATH, FR5 TERUMO (10CM) FR 5 Used *[id number] 17:02 TERUMO MEDICAL/YNES CATHETER, FR5 ANGLED 100CM FR 5 [id number] *[id number] Used WIRE, ANGLED GLIDE .035 [id number] 16:57 TERUMO MEDICAL/YNES 260CM Used 260CM *[id number] Equipment Model, Serial, Lot Number and Expiration Data Description Model Number Serial Number Lot Number Expiration Date BALLOON, AMPHIRION DEEP 3 X [id number] 04-13-2019 120 150CM CATHETER, FR4 CXI SUPPORT [id number] 06-28-2020 WIRE, GUIDE APPROACH MILLER HEAD ASSISTANT WET PROCESS [id number] 10-26-2021 MICROWIRE
--- NOTE | 2017-09-24 18:57 | EKG ---
Date Performed: 09/24/2017 Time Performed: 06:23:40 PTAGE: 57 years EKG: Sinus rhythm Normal ECG PREVIOUS TRACING 06/26/17 Compared to prior tracing no significant change DOCTOR: Harley Rose Interpretating Date/Time 09/24/2017 18:56:55
[2017-09-25] VITALS (25 sets, daily range): BP systolic 125–152; BP diastolic 55–70; PULSE 84–104; RESP 16; TEMP 98.3–99.1; O2SAT 97–100
[2017-09-25] MEDS: HEPARIN SODIUM - SQ 10,000 UNITS/ML VIAL SQ SCH ×3 (04:13→17:07)
[2017-09-25] MEDS: HYDROmorphone HCL PF 1 MG/ML VIAL IV PUSH PRN ×2 (04:13→14:15)
[2017-09-25] MEDS: ACETAMINOPHEN 325 MG TAB PO SCH ×3 (04:14→17:06)
[2017-09-25] MEDS: PIPERACIL-TAZO 2.25 GM PREMIX 50 ML IV SCH ×2 (04:14→14:16)
--- NOTE | 2017-09-25 06:07 | MP ---
cc: RANDY ORTIZ MD DATE OF SURGERY 09/24/2017 PREOPERATIVE DIAGNOSES Left lower extremity tissue loss. Peripheral vascular occlusive disease. POSTOPERATIVE DIAGNOSES Left lower extremity tissue loss. Peripheral vascular occlusive disease. PROCEDURE 1. Aortogram with left lower extremity angiograms. 2. Left posterior tibial artery angioplasty with a 3-mm balloon. 3. Right common femoral artery Angio-Seal. ATTENDING SURGEON Randy Ortiz MD ANESTHESIA Local with sedation. INDICATIONS Mr. Aguilera is a 57-year-old gentleman with end-stage renal disease and peripheral arterial occlusive disease. He had a gangrenous forefoot and was taken to the operating room for angiographic evaluation and potential treatment. There is no prior catheter-based imaging available for my review. DESCRIPTION OF PROCEDURE Informed consent was obtained from the patient. He was taken to the operating room and placed supine on the operating room table and appropriate time-out was taken to ensure the patient's identity and planned procedure. His right groin was anesthetized with 1% lidocaine. A 21-gauge micropuncture needle was used to access the right common femoral artery. The was exchanged using Seldinger technique for a micropuncture sheath through which a 0.035 Glidewire was introduced. The micropuncture sheath was exchanged for a 5-Lao sheath and a VCF catheter was placed over the wire into the sheath and aortogram and pelvic arteriograms obtained. The Glidewire was navigated down to the left common femoral artery and the VCF catheter was exchanged for a [place] catheter and left lower extremity angiogram was obtained. The patient was systemically heparinized with 5000 units of IV heparin. A 0.035 Storq wire was introduced and the [place] catheter and the 5-Lao sheath removed and a 6-Lao, 70-cm sheath was introduced. Over the Storq wire the [place] was exchanged for a CXI catheter and the CXI was navigated down to the posterior tibial artery. With the CXI in the mid-posterior tibial artery, the Storq was exchanged for a TELECOMMUNICATIONS LINESWORKER wire and this was advanced down to the tarsal artery. The CXI catheter was removed and a 3-mm balloon was used to angioplasty the posterior tibial artery. At the completion the angiogram showed excellent result without any recoil or extravasation. The wire, catheter and sheath were removed and the groin was closed with AngioSeal. There were no complications. I was present and scrubbed for the entire procedure. INTERPRETATION OF IMAGES The patient has patient infrarenal aorta, common iliac arteries, hypogastric arteries and external iliac arteries bilaterally. There is no hemodynamically significant stenosis. The left common femoral artery and SFA and profunda are all patent without any hemodynamically significant stenosis. The left popliteal artery is patent without any hemodynamically significant stenosis. There is three-vessel runoff below this and the posterior tibial artery is the dominant runoff to the foot. In the distal posterior tibial artery and down near the perimalleolar posterior tibial artery there were two high-grade stenoses and these were successfully angioplastied to 3 mm. MD BLANCHE Humphreys/PHIL /6:30 PM /5:49 AM
[2017-09-25 06:29] LABS: MEAN CELL VOLUME 83.9 FL (80.0-100.0); MEAN CORPUSCULAR HEMOGLOBIN 27.2 PG (27.0-34.0); MEAN CORPUSCULAR HGB CONC 32.4 % (32.0-36.0); PLATELET COUNT 423 TH/MM3 (150-450); RED BLOOD COUNT 3.45 MIL/MM3 (4.50-5.90); RED CELL DISTRIBUTION WIDTH 17.4 % (11.6-17.2); REVIEW FLAG FINAL; WHITE BLOOD COUNT 11.3 TH/MM3 (4.0-11.0)
[2017-09-25 07:05] LABS: BICARBONATE 28.2 MEQ/L (21.0-32.0); POTASSIUM 4.9 MEQ/L (3.5-5.1)
[2017-09-25] MEDS ORDERED: IOHEXOL 350 MG/ML 100 ML BTL (for Cath Lab) OTHER ONE (07:48)
[2017-09-25] MEDS ORDERED: IOHEXOL 350 MG/ML 50 ML BTL (for Cath Lab) OTHER ONE (07:48)
[2017-09-25] MEDS: INSULIN ASPART SUPPLEMENTAL SCALE SQ SCH ×4 (08:12→21:42)
[2017-09-25] MEDS: INSULIN DETEMIR 100 UNITS/ML VIAL SQ SCH ×2 (08:12→21:42)
[2017-09-25] MEDS: GABAPENTIN 100 MG CAP PO SCH ×3 (08:13→17:07)
[2017-09-25] MEDS: DOCUSATE SODIUM 50 MG/SENNA 8.6 MG TAB PO SCH ×2 (08:13→21:42)
[2017-09-25] MEDS: SODIUM CHLORIDE 0.9% FLUSH 10 ML FLUSH IV FLUSH SCH ×2 (08:15→21:00)
--- NOTE | 2017-09-25 08:32 | HHI.FPPN ---
Subjective Remarks Patient seen and examined this morning. Temperature 98.8, pulse 93, respiratory rate 16, blood pressure 139/64, pulse ox 99 on room air. Patient is status post left posterior tibial artery angioplasty with 3 mm balloon. Patient understands that at this time we're awaiting further recommendations by the vascular surgeon, and hoping for improvement of vasculature to the left foot. (Harley Soni MD, R3) Objective Vitals Vital Signs Date Time Temp Pulse Resp B/P (MAP) Pulse Ox O2 Delivery O2 Flow Rate FiO2 09/25/17 06:05 89 09/25/17 05:42 92 09/25/17 04:56 98 09/25/17 03:43 89 09/25/17 03:30 98.8 93 16 139/64 (89) 99 09/25/17 02:15 88 09/25/17 01:20 90 09/25/17 00:00 92 09/24/17 23:16 94 09/24/17 23:15 98.8 93 16 126/57 (80) 93 09/24/17 22:15 100 09/24/17 21:00 110 09/24/17 20:30 98.6 101 16 117/53 (74) 93 09/24/17 20:30 108 09/24/17 19:04 21 09/24/17 18:00 109 09/24/17 18:00 97.6 109 18 163/71 (101) 96 09/24/17 13:01 92 09/24/17 12:00 86 09/24/17 11:30 98.7 93 18 150/73 (98) 100 09/24/17 11:00 95 09/24/17 10:01 96 09/24/17 09:00 88 I/O 09/24/17 09/24/17 09/24/17 09/25/17 09/25/17 09/25/17 07:00 15:00 23:00 07:00 15:00 23:00 Intake Total 480 ml 240 ml 440 ml Output Total 2050 ml 0 ml Balance 480 ml -1810 ml 440 ml Intake Oral 480 ml 240 ml 440 ml Output Urine Total 0 ml 0 ml Hemodialysis 2050 ml # Voids 1 0 0 # Bowel Movements 1 (Harley Soni MD, R3) Result Diagram: 09/25/17 0502 09/25/17 0502 Objective Remarks GENERAL: Lying in bed, no distress SKIN: Right great toe scab wound healing. Left second toe is amputated with small opening draining purulent fluid. Left dorsum of foot with slough and eschar. Foot is foul smelling. HEENT: Normocephalic, no nasal discharge, no scleral icterus or injection CARDIOVASCULAR: Regular rate without murmurs, gallops, or rubs. Left forearm AV fistula positive thrill and bruit. RESPIRATORY: Clear to auscultation. Breath sounds equal bilaterally. No wheezes , rales, or rhonchi. GASTROINTESTINAL: Abdomen soft, non-tender, nondistended, normal bowel sounds MUSCULOSKELETAL: Palpable but weak dorsalis pedis and posterior tibial pulses. No edema. NEUROLOGICAL: Awake and alert. Procedures 09/24/17: 1. Aortogram with left lower extremity angiograms 2. Left posterior tibial artery angioplasty with 3 mm balloon 3. Right common femoral artery Angio-Seal Medications and IVs Current Medications Medications (Trade) Dose Ordered Sig/April Route Start Time Stop Time Status Last Admin (NS Flush) 2 ml UNSCH PRN IV FLUSH 09/21/17 12:00 (NS Flush) 2 ml BID IV FLUSH 09/21/17 21:00 09/25/17 08:15 (Zofran Inj) 4 mg Q6H PRN IVP 09/21/17 12:00 (Milk Of Magnesia Liq) 30 ml Q12H PRN PO 09/21/17 12:00 (Senokot) 17.2 mg Q12H PRN PO 09/21/17 12:00 (Dulcolax Supp) 10 mg DAILY PRN RECTAL 09/21/17 12:00 (Lactulose Liq) 30 ml DAILY PRN PO 09/21/17 12:00 (NovoLOG SUPPLEMENTAL SCALE) 1 ACHS SLIDING SCALE SQ 09/21/17 12:00 09/25/17 08:12 (Levemir Inj) 5 units Q12HR SQ 09/21/17 21:00 09/25/17 08:12 (D50w (Vial) Inj) 50 ml UNSCH PRN IV PUSH 09/21/17 12:30 (Glucagon Inj) 1 mg UNSCH PRN OTHER 09/21/17 12:30 Sodium Chloride 1,000 ml @ 0 mls/hr Q0M PRN OTHER 09/21/17 13:35 (Heparin Inj) 8,000 units UNSCH PRN IV FLUSH 09/21/17 13:45 Sodium Chloride 1,000 ml @ 200 mls/hr Q5H PRN IV 09/21/17 13:35 Sodium Chloride 1,000 ml @ 0 mls/hr Q0M PRN OTHER 09/21/17 13:35 (Mannitol Inj) 12.5 gm UNSCH PRN IV 09/21/17 13:45 Albumin Human 100 ml @ 60 mls/hr UNSCH PRN IV 09/21/17 13:45 (NS Flush) 5 ml UNSCH PRN IV FLUSH 09/21/17 13:45 (Heparin Inj) UNSCH PRN .XX 09/21/17 13:45 (Gentamicin (Dialysis) Inj) 20 mg UNSCH PRN OTHER 09/21/17 13:45 (Zofran Inj) 4 mg UNSCH PRN IV PUSH 09/21/17 13:45 (Benadryl) 25 mg UNSCH PRN PO 09/21/17 13:45 09/24/17 03:29 (Nitrostat Sl) 0.4 mg UNSCH PRN SL 09/21/17 13:45 (Catapres) 0.1 mg UNSCH PRN PO 09/21/17 13:45 (Epogen Inj) 6,000 units UNSCH PRN IV PUSH 09/21/17 13:45 09/24/17 15:43 (Gelfoam 12 Mm/7 Mm Top) 1 foam UNSCH PRN TOP 09/21/17 13:45 Piperacillin Sod/ Tazobactam Sod 50 ml @ 100 mls/hr Q12H IV 09/21/17 15:00 09/25/17 04:14 Vancomycin HCl 1000 mg/Sodium Chloride 250 ml @ 250 mls/hr WITH DIALYSIS IV 09/21/17 15:45 09/24/17 15:44 (Narcan Inj) 0.4 mg UNSCH PRN IV PUSH 09/21/17 19:00 (Neurontin) 100 mg TID PO 09/22/17 09:00 09/25/17 08:13 (Tylenol) 650 mg Q8H PO 09/22/17 09:00 09/25/17 08:14 (Dilaudid Pf Inj) 0.5 mg Q3H PRN IV PUSH 09/22/17 08:45 09/25/17 04:13 (Dilaudid Pf Inj) 1 mg Q3H PRN IV PUSH 09/22/17 08:45 09/24/17 10:20 (Dilaudid Pf Inj) 1 mg Q3H PRN IV PUSH 09/22/17 08:45 (Thorazine) 25 mg Q6H PRN PO 09/22/17 17:15 09/22/17 17:45 (Thorazine Inj) 25 mg Q8H PRN IM 09/22/17 17:15 (Heparin Inj) 5,000 units Q8H SQ 09/23/17 10:00 09/25/17 04:13 (Odette-Colace) 1 tab BID PO 09/23/17 09:45 09/25/17 08:13 Pharmacy Profile Note 0 ml @ 0 mls/hr UNSCH OTHER 09/23/17 10:30 (Duoneb Neb) 1 ampule Q4HR NEB PRN NEB 09/23/17 10:30 Lactated Ringer's 1,000 ml @ 30 mls/hr Q24H PRN IV 09/24/17 04:45 09/27/17 04:44 Sodium Chloride 500 ml @ 30 mls/hr [id number] PRN IV 09/24/17 04:45 09/27/17 04:44 (Lopressor) 25 mg RN EMBEDDED PRN PO 09/24/17 04:45 09/27/17 04:44 (Betadine 5% Antisepsis Kit) 1 applic RN EMBEDDED PRN EACH NARE 09/24/17 04:45 09/27/17 04:44 (Chlorhexidine 2% Cloth) 3 pack RN EMBEDDED PRN TOPICAL 09/24/17 04:45 09/27/17 04:44 (Harley Soni MD, R3) A/P Assessment and Plan 57-year-old male with medical history of end-stage renal disease on hemodialysis MWF, COPD, Type 1 DM that is uncontrolled, and peripheral vascular disease, who presents with left foot infection. Status post left posterior tibial artery angioplasty with 3 mm balloon. Discharge Planning Discharge pending further recommendations from vascular surgery (Harley Soni MD, R3) Attending Attestation Patient seen and examined. Case reviewed and discussed with the resident team. Agree with plan of care as discussed with me and documented in the resident note. 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 will ask ID about what he will need and for how long (Jasmyne Armijo MD) Problem List: (1) Cellulitis of foot, left ICD Codes: L03.116 - Cellulitis of left lower limb Status: Acute Plan: History of amputation of the left second toe, now with infected gangrenous foot draining purulent fluid. Has history of uncontrolled type 1 diabetes with peripheral neuropathy as well as peripheral vascular disease. Previous cultures for the foot grew staph aureus and enterococcus faecalis sensitive to daptomycin, Zyvox, and vancomycin. Patient afebrile with mild leukocytosis. - Follow blood and wound cultures - Vancomycin and Zosyn started 09/21/17 - Consulted vascular surgery Dr. Ortiz, appreciate recommendations - Pain management with gabapentin for neuropathic etiology, Dilaudid due to ESRD , and Tylenol scheduled. - Status post left posterior tibial artery angioplasty with 3 mm balloon - Recently quit smoking, encourage continued abstinence from tobacco use. - Encourage better control of diabetes and closer follow up with PCP. (2) Diabetes type 1, uncontrolled ICD Codes: E10.65 - Type 1 diabetes mellitus with hyperglycemia Status: Chronic Plan: Type 1 diabetes that is poorly controlled. A1C is 11.5. Blood glucoses here have been relatively well controlled. Ranging between 97-258 - Continue home medication with Levemir 5 units bid - Sliding scale insulin. - Order extension educator for poorly controlled diabetes. (3) End stage renal disease ICD Codes: N18.6 - End-stage renal disease Status: Chronic Plan: End-stage renal disease on hemodialysis - Consult nephrology for continuation of hemodialysis while inpatient - Left AV fistula with positive thrill and bruit - Renal diet - Avoid nephrotoxic agents as much as possible, monitor vancomycin levels, vancomycin pharmacy consult (4) COPD (chronic obstructive pulmonary disease) ICD Codes: J44.9 - Chronic obstructive pulmonary disease, unspecified Status: Chronic Plan: COPD, not in exacerbation - DuoNebs PRN (5) No contraindication to deep vein thrombosis (DVT) prophylaxis ICD Codes: Z78.9 - Other specified health status Status: Acute Plan: - Heparin 5000 units tid (6) Nutrition, metabolism, and development symptoms ICD Codes: R63.8 - Other symptoms and signs concerning food and fluid intake Status: Acute Plan: ESRD, monitor electrolytes Renal diet (Harley Soni MD, R3) Problem List: (1) Cellulitis of foot, left ICD Codes: L03.116 - Cellulitis of left lower limb Status: Acute Plan: History of amputation of the left second toe, now with infected gangrenous foot draining purulent fluid. Has history of uncontrolled type 1 diabetes with peripheral neuropathy as well as peripheral vascular disease. Previous cultures for the foot grew staph aureus and enterococcus faecalis sensitive to daptomycin, Zyvox, and vancomycin. Patient afebrile with mild leukocytosis. - Follow blood and wound cultures - Vancomycin and Zosyn started 09/21/17 - Consulted vascular surgery Dr. Ortiz, appreciate recommendations - Pain management with gabapentin for neuropathic etiology, Dilaudid due to ESRD , and Tylenol scheduled. - Status post left posterior tibial artery angioplasty with 3 mm balloon - Recently quit smoking, encourage continued abstinence from tobacco use. - Encourage better control of diabetes and closer follow up with PCP. (2) Diabetes type 1, uncontrolled ICD Codes: E10.65 - Type 1 diabetes mellitus with hyperglycemia Status: Chronic Plan: Type 1 diabetes that is poorly controlled. A1C is 11.5. Blood glucoses here have been relatively well controlled. Ranging between 97-258 - Continue home medication with Levemir 5 units bid - Sliding scale insulin. - Order extension educator for poorly controlled diabetes. (3) End stage renal disease ICD Codes: N18.6 - End-stage renal disease Status: Chronic Plan: End-stage renal disease on hemodialysis - Consult nephrology for continuation of hemodialysis while inpatient - Left AV fistula with positive thrill and bruit - Renal diet - Avoid nephrotoxic agents as much as possible, monitor vancomycin levels, vancomycin pharmacy consult (4) COPD (chronic obstructive pulmonary disease) ICD Codes: J44.9 - Chronic obstructive pulmonary disease, unspecified Status: Chronic Plan: COPD, not in exacerbation - DuoNebs PRN (5) No contraindication to deep vein thrombosis (DVT) prophylaxis ICD Codes: Z78.9 - Other specified health status Status: Acute Plan: - Heparin 5000 units tid (6) Nutrition, metabolism, and development symptoms ICD Codes: R63.8 - Other symptoms and signs concerning food and fluid intake Status: Acute Plan: ESRD, monitor electrolytes Renal diet (Jasmyne Armijo MD) Harley Soni MD, R3 Sep 25, 2017 08:32 Jasmyne Armijo MD Sep 25, 2017 10:49
--- NOTE | 2017-09-25 11:59 | PD.VS.PN ---
Subjective POD #: 1 Procedure(s): Aortogram w/ L LE angiogram L PT GOODS LAYER (3mm) R VICE PROVOST Angioseal Subjective/Hospital Course Afebrile 57/M POD 1- S/P LEFT lower extremity revascularization Pain controlled (Alba Allen) Objective Vitals/I&O Date Time Temp Pulse Resp B/P (MAP) Pulse Ox O2 Delivery O2 Flow Rate FiO2 09/25/17 06:05 89 09/25/17 05:42 92 09/25/17 04:56 98 09/25/17 03:43 89 09/25/17 03:30 98.8 93 16 139/64 (89) 99 09/25/17 02:15 88 09/25/17 01:20 90 09/25/17 00:00 92 09/24/17 23:16 94 09/24/17 23:15 98.8 93 16 126/57 (80) 93 09/24/17 22:15 100 09/24/17 21:00 110 09/24/17 20:30 98.6 101 16 117/53 (74) 93 09/24/17 20:30 108 09/24/17 19:04 21 09/24/17 18:00 109 09/24/17 18:00 97.6 109 18 163/71 (101) 96 09/24/17 13:01 92 09/24/17 12:00 86 09/25/17 09/25/17 09/25/17 07:00 15:00 23:00 Intake Total 440 ml Output Total 0 ml Balance 440 ml Exam: GENERAL: A&OX3,NAD,GCS 15 SKIN: Warm and dry/ Left foot wound malodorous MUSCULOSKELETAL: No cyanosis, or edema. Palpable L PT Laboratory Laboratory Tests Test 09/25/17 05:02 White Blood Count 11.3 Red Blood Count 3.45 Hemoglobin 9.4 Hematocrit 29.0 Mean Corpuscular Volume 83.9 Mean Corpuscular Hemoglobin 27.2 Mean Corpuscular Hemoglobin Concent 32.4 Red Cell Distribution Width 17.4 Platelet Count 423 Mean Platelet Volume 8.1 Blood Urea Nitrogen 49 Creatinine 9.74 Random Glucose 269 Calcium Level 9.5 Sodium Level 133 Potassium Level 4.9 Chloride Level 93 Carbon Dioxide Level 28.2 Anion Gap 12 Estimat Glomerular Filtration Rate 7 Date/Time Source Procedure Growth Status 09/21/17 12:55 Blood Peripheral Aerobic Blood Culture - Preliminary NO GROWTH IN 4 DAYS Resulted 09/21/17 12:55 Blood Peripheral Anaerobic Blood Culture - Preliminary NO GROWTH IN 4 DAYS Resulted 09/25/17 00:35 Stool Stool Stool Occult Blood (DARIUS) - Final HEMOCCULT NEGATIVE Complete 09/23/17 23:50 Wound Foot Gram Stain - Final Resulted 09/23/17 23:50 Wound Culture - Preliminary Group D Enterococcus Veillonella Species Resulted (Alba Allen) Assessment and Plan Assessment: (1) PAD (peripheral artery disease) Plan S/P LLE revascularization - doing well/pain controlled Pt with palpable distal pulses Plan Continue Wound care to foot: W to D Consult Podiatry - Left foot wound Continue PT/OOB/Ambulation Alba GOMEZ [facility] [phone] (Alba Allen) Plan Palpable PT pulse after tibial endovascular revascularization. Needs aggressive wound care. Will continue to follow closely. (Randy Ortiz MD) Alba Allen Sep 25, 2017 11:59 Randy Ortiz MD Sep 25, 2017 16:48
--- NOTE | 2017-09-25 14:59 | PD.ID.CON ---
History of Present Illness Service ID Consult Requested By Dr Soni Reason for Consult L foot DFI Primary Care Physician Angella Joshua , R3 MD Alyssa Diagnoses: History of Present Illness 57 yo male poorly controlled diabetic with periferal vascular disease sp 2 toe amputation about [address] Ortiz presented with dark discoloration, foul smelling drainage from the incision He was admitted and underwent Left posterior tibial artery angioplasty with a 3- mm balloon yday He is growing enterococci and anaerobs from the wound drainage Review of Systems Except as stated in HPI: all other systems reviewed are Neg Past Family Social History Allergies: Coded Allergies: No Known Allergies (Verified Allergy, Unknown, 09/03/17) Past Medical History Renal failure, on dialysis due to diabetes. * AV fistula on left arm Diabetes Mellitus at age 22, type 1 insulin dependent HTN Anemia HLD COPD Past Surgical History Left second toe amputation AV fistula placement Active Ordered Medications Medications where reviewed in EMR Antibiotics Include: zosyn vancomycin Family History Mother of cancer at age of 70 Father of heart disease at the age of 70 Social History Denies alcohol use Former smoker, a third of a pack per day for 30 years Denies illicit drug use Physical Exam Vital Signs Vital Signs Date Time Temp Pulse Resp B/P (MAP) Pulse Ox O2 Delivery O2 Flow Rate FiO2 09/25/17 06:05 89 09/25/17 05:42 92 09/25/17 04:56 98 09/25/17 03:43 89 09/25/17 03:30 98.8 93 16 139/64 (89) 99 09/25/17 02:15 88 09/25/17 01:20 90 09/25/17 00:00 92 09/24/17 23:16 94 09/24/17 23:15 98.8 93 16 126/57 (80) 93 09/24/17 22:15 100 09/24/17 21:00 110 09/24/17 20:30 98.6 101 16 117/53 (74) 93 09/24/17 20:30 108 09/24/17 19:04 21 09/24/17 18:00 109 09/24/17 18:00 97.6 109 18 163/71 (101) 96 Physical Exam CONSTITUTIONAL/GENERAL: This is an adequately nourished patient, in no apparent distress. TUBES/LINES/DRAINS: SKIN: No jaundice, rashes, or lesions. Skin temperature appropriate. Not diaphoretic. HEAD: Atraumatic. Normocephalic. EYES: Pupils equal and round and reactive. Extraocular motions intact. No scleral icterus. No injection or drainage. Fundi not examined. ENT: Hearing grossly normal. Nose without bleeding or purulent drainage. Throat without visible erythema, exudates, masses, or lesions. NECK: Trachea midline. Supple, nontender. CARDIOVASCULAR: Regular rate and rhythm 4/6 systolic murmur No JVD. Peripheral pulses symmetric. RESPIRATORY/CHEST: Symmetric, unlabored respirations. Clear to auscultation. Breath sounds equal bilaterally. No wheezes, rales, or rhonchi. GASTROINTESTINAL: Abdomen soft, non-tender, nondistended. No hepato-splenomegaly , or palpable masses. No guarding. Bowel sounds present. MUSCULOSKELETAL: Extremities without clubbing, cyanosis, or edema. Dry and wet gangrene changes on the L forefoot , foul smelling purulent drainage + tender enlarged L inguinal lymph nodule LYMPHATICS: No palpable cervical or supraclavicular adenopathy. NEUROLOGICAL: Awake and alert. Motor and sensory grossly within normal limits. Follows commands. Clear speech . Moves all extremities. PSYCHIATRIC: anxious upset about his foot, threatens to leave AMA Laboratory Laboratory Tests Test 09/25/17 05:02 White Blood Count 11.3 Red Blood Count 3.45 Hemoglobin 9.4 Hematocrit 29.0 Mean Corpuscular Volume 83.9 Mean Corpuscular Hemoglobin 27.2 Mean Corpuscular Hemoglobin Concent 32.4 Red Cell Distribution Width 17.4 Platelet Count 423 Mean Platelet Volume 8.1 Blood Urea Nitrogen 49 Creatinine 9.74 Random Glucose 269 Calcium Level 9.5 Sodium Level 133 Potassium Level 4.9 Chloride Level 93 Carbon Dioxide Level 28.2 Anion Gap 12 Estimat Glomerular Filtration Rate 7 Date/Time Source Procedure Growth Status 09/21/17 12:55 Blood Peripheral Aerobic Blood Culture - Preliminary NO GROWTH IN 4 DAYS Resulted 09/21/17 12:55 Blood Peripheral Anaerobic Blood Culture - Preliminary NO GROWTH IN 4 DAYS Resulted 09/25/17 00:35 Stool Stool Stool Occult Blood (DARIUS) - Final HEMOCCULT NEGATIVE Complete 09/23/17 23:50 Wound Foot Gram Stain - Final Resulted 09/23/17 23:50 Wound Culture - Preliminary Group D Enterococcus Veillonella Species Resulted Result Diagram: 09/25/17 0502 09/25/17 0502 Assessment and Plan Assessment and Plan Diabetic / vascular gangrene L foot, mixed aerobic/anaerobic infection sp revascularisation cont zosyn, vancomycin pt needs surgical intervention Discussed Condition With RN pt Vianey Anguiano MD Sep 25, 2017 14:58
--- NOTE | 2017-09-25 15:30 | HHI.NPPN ---
Subjective History of Present Illness 57-year-old male with past medical history of hypertension, diabetes mellitus, chronic obstructive pulmonary disease, peripheral vascular disease, chronic anemia, end-stage renal disease on hemodialysis who came to the hospital with complaint of pain in the right foot. I was called to see the patient for management of dialysis. The patient has been on hemodialysis Sunday, Sunday and Sunday. Additional Remarks Patient is alert, complaining of foot pain. Objective Data Data Vital Signs Date Time Temp Pulse Resp B/P (MAP) Pulse Ox O2 Delivery O2 Flow Rate FiO2 09/25/17 06:05 89 09/25/17 05:42 92 09/25/17 04:56 98 09/25/17 03:43 89 09/25/17 03:30 98.8 93 16 139/64 (89) 99 09/25/17 02:15 88 09/25/17 01:20 90 09/25/17 00:00 92 09/24/17 23:16 94 09/24/17 23:15 98.8 93 16 126/57 (80) 93 09/24/17 22:15 100 09/24/17 21:00 110 09/24/17 20:30 98.6 101 16 117/53 (74) 93 09/24/17 20:30 108 09/24/17 19:04 21 09/24/17 18:00 109 09/24/17 18:00 97.6 109 18 163/71 (101) 96 -: 09/25/17 0502 09/25/17 0502 Microbiology 09/25/17 Stool Occult Blood (DARIUS) - Final, Complete HEMOCCULT NEGATIVE Physical Exam General Appearance: No Acute Distress, Comfortable Neck Neck Exam: Neck Supple Pulmonary Resp Exam: Clear Bilaterally, Breath Sounds Equal Cardiology CV Exam: Regular Gastrointestinal/Abdomen GI Exam: Soft, Non-Tender, Bowel Sounds Present Extremeties Extremities Exam: Trace Edema (left foot dressed) Neurologic Neuro Exam: Alert, Awake, Oriented Psychiatric Psych Exam: Appropriate Responses Assessment/Plan Problem List: (1) ESRD (end stage renal disease) ICD Codes: N18.6 - End-stage renal disease Status: Acute (2) DM (diabetes mellitus) ICD Codes: E11.9 - Type 2 diabetes mellitus without complications Status: Chronic Plan: monitor BG (3) PAD (peripheral artery disease) ICD Codes: I73.9 - Peripheral vascular disease, unspecified Status: Chronic Plan: Vascular surgery following Plan Patient has HD done yesterday. Post angiogram and plasty done 09/24. Hgb. dropped, on Epogen, will follow. BP is stable. On Vanco. with HD and Zosyn. Has more pain, on Dilaudid IV, add Percocet in between. HD again in AM. Joshua Perry MD Sep 25, 2017 15:30
--- NOTE | 2017-09-25 20:26 | PD.CONS ---
History of Present Illness Service Foot and Ankle Surgery/Podiatry Consult Requested By Dr. Kenny Reason for Consult Left foot ischemic wound Primary Care Physician Angella Joshua , Amara Shah MD Diagnoses: History of Present Illness 57 year male poorly controlled diabetic with hypertension, COPD, chronic anemia , end stage renal disease, peripheral vascular disease with left foot wound. Patient is status post left second digit amputation, patient was seen in clinic by vascular ischemic ulcer was noted. He is well known to Dr. Kenny and underwent left posterior tibial artery angioplasty during this admission. Patient states his pain is well controlled with medications. Patient was ambulating in hallway prior to consult. Review of Systems Constitutional: COMPLAINS OF: Fatigue Eyes: DENIES: Blurred vision Respiratory: DENIES: Cough Cardiovascular: DENIES: Chest pain Gastrointestinal: DENIES: Abdominal pain Integumentary: COMPLAINS OF: Abnormal pigmentation Neurologic: COMPLAINS OF: Abnormal gait Psychiatric: DENIES: Confusion Past Family Social History Allergies: Coded Allergies: No Known Allergies (Verified Allergy, Unknown, 09/03/17) Active Ordered Medications Current Medications Medications (Trade) Dose Ordered Sig/April Route Start Time Stop Time Status Last Admin (NS Flush) 2 ml UNSCH PRN IV FLUSH 09/21/17 12:00 (NS Flush) 2 ml BID IV FLUSH 09/21/17 21:00 09/25/17 08:15 (Zofran Inj) 4 mg Q6H PRN IVP 09/21/17 12:00 (Milk Of Magnesia Liq) 30 ml Q12H PRN PO 09/21/17 12:00 (Senokot) 17.2 mg Q12H PRN PO 09/21/17 12:00 (Dulcolax Supp) 10 mg DAILY PRN RECTAL 09/21/17 12:00 (Lactulose Liq) 30 ml DAILY PRN PO 09/21/17 12:00 (NovoLOG SUPPLEMENTAL SCALE) 1 ACHS SLIDING SCALE SQ 09/21/17 12:00 09/25/17 17:06 (Levemir Inj) 5 units Q12HR SQ 09/21/17 21:00 09/25/17 08:12 (D50w (Vial) Inj) 50 ml UNSCH PRN IV PUSH 09/21/17 12:30 (Glucagon Inj) 1 mg UNSCH PRN OTHER 09/21/17 12:30 Sodium Chloride 1,000 ml @ 0 mls/hr Q0M PRN OTHER 09/21/17 13:35 (Heparin Inj) 8,000 units UNSCH PRN IV FLUSH 09/21/17 13:45 Sodium Chloride 1,000 ml @ 200 mls/hr Q5H PRN IV 09/21/17 13:35 Sodium Chloride 1,000 ml @ 0 mls/hr Q0M PRN OTHER 09/21/17 13:35 (Mannitol Inj) 12.5 gm UNSCH PRN IV 09/21/17 13:45 Albumin Human 100 ml @ 60 mls/hr UNSCH PRN IV 09/21/17 13:45 (NS Flush) 5 ml UNSCH PRN IV FLUSH 09/21/17 13:45 (Heparin Inj) UNSCH PRN .XX 09/21/17 13:45 (Gentamicin (Dialysis) Inj) 20 mg UNSCH PRN OTHER 09/21/17 13:45 (Zofran Inj) 4 mg UNSCH PRN IV PUSH 09/21/17 13:45 (Benadryl) 25 mg UNSCH PRN PO 09/21/17 13:45 09/24/17 03:29 (Nitrostat Sl) 0.4 mg UNSCH PRN SL 09/21/17 13:45 (Catapres) 0.1 mg UNSCH PRN PO 09/21/17 13:45 (Epogen Inj) 6,000 units UNSCH PRN IV PUSH 09/21/17 13:45 09/24/17 15:43 (Gelfoam 12 Mm/7 Mm Top) 1 foam UNSCH PRN TOP 09/21/17 13:45 Piperacillin Sod/ Tazobactam Sod 50 ml @ 100 mls/hr Q12H IV 09/21/17 15:00 09/25/17 14:16 Vancomycin HCl 1000 mg/Sodium Chloride 250 ml @ 250 mls/hr WITH DIALYSIS IV 09/21/17 15:45 09/24/17 15:44 (Narcan Inj) 0.4 mg UNSCH PRN IV PUSH 09/21/17 19:00 (Neurontin) 100 mg TID PO 09/22/17 09:00 09/25/17 17:07 (Tylenol) 650 mg Q8H PO 09/22/17 09:00 09/25/17 17:06 (Dilaudid Pf Inj) 0.5 mg Q3H PRN IV PUSH 09/22/17 08:45 09/25/17 04:13 (Dilaudid Pf Inj) 1 mg Q3H PRN IV PUSH 09/22/17 08:45 09/25/17 14:15 (Dilaudid Pf Inj) 1 mg Q3H PRN IV PUSH 09/22/17 08:45 (Thorazine) 25 mg Q6H PRN PO 09/22/17 17:15 09/22/17 17:45 (Thorazine Inj) 25 mg Q8H PRN IM 09/22/17 17:15 (Heparin Inj) 5,000 units Q8H SQ 09/23/17 10:00 09/25/17 17:07 (Odette-Colace) 1 tab BID PO 09/23/17 09:45 09/25/17 08:13 Pharmacy Profile Note 0 ml @ 0 mls/hr UNSCH OTHER 09/23/17 10:30 (Duoneb Neb) 1 ampule Q4HR NEB PRN NEB 09/23/17 10:30 Lactated Ringer's 1,000 ml @ 30 mls/hr Q24H PRN IV 09/24/17 04:45 09/27/17 04:44 Sodium Chloride 500 ml @ 30 mls/hr [id number] PRN IV 09/24/17 04:45 09/27/17 04:44 (Lopressor) 25 mg X RAY ELECTRONICS WIRING TECHNICIAN PRN PO 09/24/17 04:45 09/27/17 04:44 (Betadine 5% Antisepsis Kit) 1 applic X RAY ELECTRONICS WIRING TECHNICIAN PRN EACH NARE 09/24/17 04:45 09/27/17 04:44 (Chlorhexidine 2% Cloth) 3 pack X RAY ELECTRONICS WIRING TECHNICIAN PRN TOPICAL 09/24/17 04:45 09/27/17 04:44 (Percocet 5-325 Mg) 1 tab Q6H PRN PO 09/25/17 15:30 Physical Exam Vital Signs Vital Signs Date Time Temp Pulse Resp B/P (MAP) Pulse Ox O2 Delivery O2 Flow Rate FiO2 09/25/17 18:00 94 09/25/17 17:00 90 09/25/17 16:00 94 09/25/17 16:00 98.3 88 16 152/70 (97) 97 09/25/17 15:00 96 09/25/17 14:00 96 09/25/17 13:00 96 09/25/17 12:00 84 09/25/17 12:00 98.6 90 16 145/66 (92) 98 09/25/17 11:00 88 09/25/17 10:00 86 09/25/17 09:00 86 09/25/17 08:00 98.4 91 16 141/68 (92) 100 09/25/17 08:00 89 09/25/17 07:00 89 09/25/17 06:05 89 09/25/17 05:42 92 09/25/17 04:56 98 09/25/17 03:43 89 09/25/17 03:30 98.8 93 16 139/64 (89) 99 09/25/17 02:15 88 09/25/17 01:20 90 09/25/17 00:00 92 09/24/17 23:16 94 09/24/17 23:15 98.8 93 16 126/57 (80) 93 09/24/17 22:15 100 09/24/17 21:00 110 09/24/17 20:30 98.6 101 16 117/53 (74) 93 09/24/17 20:30 108 Physical Exam GENERAL: This is a well-nourished, well-developed patient, in no apparent distress. SKIN: Left foot ulcer HEAD: Atraumatic. EYES: Pupils equal round and reactive. ENT: Airway patent. RESPIRATORY: No labored breathing. MUSCULOSKELETAL: No joint tenderness, effusion, or edema noted. No calf tenderness. Negative Homans sign bilaterally. NEUROLOGICAL: Awake and alert. Normal speech. Lower Extremity Physical Exam Vasc: Palpable PT pulse to left. DP non palpable left. MANIPULATIVE THERAPY SPECIALIST under secs and WNL to hallux and digits 3,4,5. Edema noted to left LE, no pitting present. Neuro: Diminished pin point sensation. Gross sensation intact. No hyperalgesia noted. Derm: Left foot ulcer encompassing dorsal aspect of metatarsals. Drainage serous in nature noted on compression, no purulent drainage noted, positive malodor, fibrotic base with eschar to dorsal foot. MSK: Pain upon compression. Left second digit amputation noted. Laboratory Laboratory Tests Test 09/25/17 05:02 White Blood Count 11.3 Red Blood Count 3.45 Hemoglobin 9.4 Hematocrit 29.0 Mean Corpuscular Volume 83.9 Mean Corpuscular Hemoglobin 27.2 Mean Corpuscular Hemoglobin Concent 32.4 Red Cell Distribution Width 17.4 Platelet Count 423 Mean Platelet Volume 8.1 Blood Urea Nitrogen 49 Creatinine 9.74 Random Glucose 269 Calcium Level 9.5 Sodium Level 133 Potassium Level 4.9 Chloride Level 93 Carbon Dioxide Level 28.2 Anion Gap 12 Estimat Glomerular Filtration Rate 7 Date/Time Source Procedure Growth Status 09/21/17 12:55 Blood Peripheral Aerobic Blood Culture - Preliminary NO GROWTH IN 4 DAYS Resulted 09/21/17 12:55 Blood Peripheral Anaerobic Blood Culture - Preliminary NO GROWTH IN 4 DAYS Resulted 09/25/17 00:35 Stool Stool Stool Occult Blood (DARIUS) - Final HEMOCCULT NEGATIVE Complete 09/23/17 23:50 Wound Foot Gram Stain - Final Resulted 09/23/17 23:50 Wound Culture - Preliminary Group D Enterococcus Veillonella Species Resulted Result Diagram: 09/25/17 0502 09/25/17 0502 Imaging Xrays to left foot pending Assessment and Plan Assessment and Plan 57 year old male with left foot gangrene Patient evaluated and treated with all questions answered Left foot x-ray to rule out gas gangrene Discussed surgical intervention with patient to consist of incision and drainage of left foot with possible transmetatarsal amputation depending on viability of soft tissue Patient states he agrees with treatment plan and is on board for limb salvage, he states if I have to take part of the foot to save his limb he is ok with that Will obtain that the OR culture of soft tissue and bone Patient to OR in am - OR contacted Consent to read Incision and drainage to left foot with possible transmetatarsal amputation and any other indicated procedures Spoke to Dr. Kenny in great detail about patient history and present treatment course Palpable posterior tibial pulses and with recent vasc intervention patient may heal Ada Schwartz DPM Sep 25, 2017 20:26
[2017-09-25] MEDS: oxyCODONE/ACETAMINOPHEN 5 MG/325 MG TAB PO PRN (22:11)
--- NOTE | 2017-09-25 22:15 | RADRPT ---
EXAM DATE/TIME: 09/25/2017 21:38 [facility] COMPARISON: No previous studies available for comparison. INDICATIONS : Right foot ulcers. MEDICAL HISTORY : Diabetes mellitus type II. SURGICAL HISTORY : None. ENCOUNTER: Initial ACUITY: 2 weeks PAIN SCORE: 3/10 LOCATION: Right distal foot. FINDINGS: Three view examination of the right foot demonstrates no soft tissue swelling, dislocation, or fractu re. The tarsal bones appear intact. The interphalangeal and metatarsophalangeal joints are intact. The calcaneus is intact. Bony mineralization is normal. CONCLUSION: 1. No acute bony abnormality. Extensive vascular calcifications. Fabian Strauss MD on September 25, 2017 at 22:12 Board Certified Radiologist. This report was verified electronically.
--- NOTE | 2017-09-25 22:18 | RADRPT ---
EXAM DATE/TIME: 09/25/2017 21:41 [facility] COMPARISON: MRI FOOT LEFT W/O CONTRAST, September 03, 2017, 14:16. INDICATIONS : Left foot ulcers. MEDICAL HISTORY : Diabetes mellitus type II. SURGICAL HISTORY : None. ENCOUNTER: Initial ACUITY: 2 weeks PAIN SCORE: 3/10 LOCATION: Left distal toes. FINDINGS: There is increasing air in the soft tissues of the left foot especially around the second metatarsal. Previous amputation second toe. Extensive vascular calcifications noted. Questionable cortical erosi ons at the third metatarsal and second metatarsal head. CONCLUSION: 1. Increasing air in the soft tissues of the left foot. Questionable cortical erosions at the second metatarsal head and third metatarsal shaft. Fabian Strauss MD on September 25, 2017 at 22:14 Board Certified Radiologist. This report was verified electronically.
[2017-09-26] VITALS (15 sets, daily range): BP systolic 130–152; BP diastolic 55–69; PULSE 74–98; RESP 18; TEMP 97.9–99.5; O2SAT 99–100
[2017-09-26] MEDS: HEPARIN SODIUM - SQ 10,000 UNITS/ML VIAL SQ SCH ×3 (02:00→17:48)
[2017-09-26] MEDS ORDERED: ACETAMINOPHEN 1000 MG/100 ML 0 ML IV ONE (02:47)
[2017-09-26] MEDS: ACETAMINOPHEN 325 MG TAB PO SCH ×3 (03:34→15:56)
[2017-09-26] MEDS: PIPERACIL-TAZO 2.25 GM PREMIX 50 ML IV SCH ×2 (03:34→15:56)
[2017-09-26] MEDS ORDERED: VANCOMYCIN HCL 1000 MG VIAL ONE (04:09)
--- NOTE | 2017-09-26 05:04 | HHI.PR ---
Subjective Remarks Patient seen bedside in PACU. Patient to OR for left foot incision and drainage with probable transmetatarsal amputation 2/2 gas gangrene. Patient denies N,V,F, Ch at this time. Is in agreement with transmetatarsal amputation. Objective Vital Signs Date Time Temp Pulse Resp B/P (MAP) Pulse Ox O2 Delivery O2 Flow Rate FiO2 09/26/17 04:52 99.0 88 136/69 (91) 99 09/26/17 04:31 98.6 86 14 131/61 (84) 95 09/25/17 23:00 99.1 88 125/55 (78) 98 09/25/17 20:00 98.7 104 144/69 (94) 99 09/25/17 18:00 94 09/25/17 17:00 90 09/25/17 16:00 94 09/25/17 16:00 98.3 88 16 152/70 (97) 97 09/25/17 15:00 96 09/25/17 14:00 96 09/25/17 13:00 96 09/25/17 12:00 84 09/25/17 12:00 98.6 90 16 145/66 (92) 98 09/25/17 11:00 88 09/25/17 10:00 86 09/25/17 09:00 86 09/25/17 08:00 98.4 91 16 141/68 (92) 100 09/25/17 08:00 89 09/25/17 07:00 89 09/25/17 06:05 89 09/25/17 05:42 92 09/25/17 04:56 98 I/O 09/25/17 09/25/17 09/25/17 09/26/17 09/26/17 09/26/17 07:00 15:00 23:00 07:00 15:00 23:00 Intake Total 440 ml 50 ml 720 ml Output Total 0 ml Balance 440 ml 50 ml 720 ml Intake Oral 440 ml 720 ml IV Total 50 ml Output Urine Total 0 ml # Voids 0 1 # Bowel Movements 1 1 Result Diagram: 09/25/17 0502 09/25/17 0502 Imaging Last 48 hours Impressions Foot X-Ray 09/25/17 0000 Signed Impressions: Service Date/Time: Monday, September 25, 2017 21:38 - CONCLUSION: 1. No acute bony abnormality. Extensive vascular calcifications. Fabian Strauss MD Foot X-Ray 09/25/17 0000 Signed Impressions: Service Date/Time: Monday, September 25, 2017 21:41 - CONCLUSION: 1. Increasing air in the soft tissues of the left foot. Questionable cortical erosions at the second metatarsal head and third metatarsal shaft. Fabian Strauss MD Soft tissue emphysema to second and third metatarsals extending into midfoot. RUSSELL Objective Remarks Lower Extremity Physical Exam: Dressing to left foot clean, dry and intact. Continued malodor noted to left foot. RESPIRATORY TECH to hallux, digits 3,4,5 under 3 secs. Palpable PT pulse to left foot. Medications and IVs Current Medications Medications (Trade) Dose Ordered Sig/April Route Start Time Stop Time Status Last Admin (NS Flush) 2 ml UNSCH PRN IV FLUSH 09/21/17 12:00 (NS Flush) 2 ml BID IV FLUSH 09/21/17 21:00 09/25/17 21:00 (Zofran Inj) 4 mg Q6H PRN IVP 09/21/17 12:00 (Milk Of Magnesia Liq) 30 ml Q12H PRN PO 09/21/17 12:00 (Senokot) 17.2 mg Q12H PRN PO 09/21/17 12:00 (Dulcolax Supp) 10 mg DAILY PRN RECTAL 09/21/17 12:00 (Lactulose Liq) 30 ml DAILY PRN PO 09/21/17 12:00 (NovoLOG SUPPLEMENTAL SCALE) 1 ACHS SLIDING SCALE SQ 09/21/17 12:00 09/25/17 21:42 (Levemir Inj) 5 units Q12HR SQ 09/21/17 21:00 09/25/17 21:42 (D50w (Vial) Inj) 50 ml UNSCH PRN IV PUSH 09/21/17 12:30 (Glucagon Inj) 1 mg UNSCH PRN OTHER 09/21/17 12:30 Sodium Chloride 1,000 ml @ 0 mls/hr Q0M PRN OTHER 09/21/17 13:35 (Heparin Inj) 8,000 units UNSCH PRN IV FLUSH 09/21/17 13:45 Sodium Chloride 1,000 ml @ 200 mls/hr Q5H PRN IV 09/21/17 13:35 Sodium Chloride 1,000 ml @ 0 mls/hr Q0M PRN OTHER 09/21/17 13:35 (Mannitol Inj) 12.5 gm UNSCH PRN IV 09/21/17 13:45 Albumin Human 100 ml @ 60 mls/hr UNSCH PRN IV 09/21/17 13:45 (NS Flush) 5 ml UNSCH PRN IV FLUSH 09/21/17 13:45 (Heparin Inj) UNSCH PRN .XX 09/21/17 13:45 (Gentamicin (Dialysis) Inj) 20 mg UNSCH PRN OTHER 09/21/17 13:45 (Zofran Inj) 4 mg UNSCH PRN IV PUSH 09/21/17 13:45 (Benadryl) 25 mg UNSCH PRN PO 09/21/17 13:45 09/24/17 03:29 (Nitrostat Sl) 0.4 mg UNSCH PRN SL 09/21/17 13:45 (Catapres) 0.1 mg UNSCH PRN PO 09/21/17 13:45 (Epogen Inj) 6,000 units UNSCH PRN IV PUSH 09/21/17 13:45 09/24/17 15:43 (Gelfoam 12 Mm/7 Mm Top) 1 foam UNSCH PRN TOP 09/21/17 13:45 Piperacillin Sod/ Tazobactam Sod 50 ml @ 100 mls/hr Q12H IV 09/21/17 15:00 09/26/17 03:34 Vancomycin HCl 1000 mg/Sodium Chloride 250 ml @ 250 mls/hr WITH DIALYSIS IV 09/21/17 15:45 09/24/17 15:44 (Narcan Inj) 0.4 mg UNSCH PRN IV PUSH 09/21/17 19:00 (Neurontin) 100 mg TID PO 09/22/17 09:00 09/25/17 17:07 (Tylenol) 650 mg Q8H PO 09/22/17 09:00 09/26/17 03:34 (Dilaudid Pf Inj) 0.5 mg Q3H PRN IV PUSH 09/22/17 08:45 09/25/17 04:13 (Dilaudid Pf Inj) 1 mg Q3H PRN IV PUSH 09/22/17 08:45 09/25/17 14:15 (Dilaudid Pf Inj) 1 mg Q3H PRN IV PUSH 09/22/17 08:45 (Thorazine) 25 mg Q6H PRN PO 09/22/17 17:15 09/22/17 17:45 (Thorazine Inj) 25 mg Q8H PRN IM 09/22/17 17:15 (Heparin Inj) 5,000 units Q8H SQ 09/23/17 10:00 09/25/17 17:07 (Odette-Colace) 1 tab BID PO 09/23/17 09:45 09/25/17 21:42 Pharmacy Profile Note 0 ml @ 0 mls/hr UNSCH OTHER 09/23/17 10:30 (Duoneb Neb) 1 ampule Q4HR NEB PRN NEB 09/23/17 10:30 Lactated Ringer's 1,000 ml @ 30 mls/hr Q24H PRN IV 09/24/17 04:45 09/27/17 04:44 Sodium Chloride 500 ml @ 30 mls/hr [id number] PRN IV 09/24/17 04:45 09/27/17 04:44 (Lopressor) 25 mg TELECOMMUNICATOR SUPERVISOR PRN PO 09/24/17 04:45 09/27/17 04:44 (Betadine 5% Antisepsis Kit) 1 applic TELECOMMUNICATOR SUPERVISOR PRN EACH NARE 09/24/17 04:45 09/27/17 04:44 (Chlorhexidine 2% Cloth) 3 pack TELECOMMUNICATOR SUPERVISOR PRN TOPICAL 09/24/17 04:45 09/27/17 04:44 (Percocet 5-325 Mg) 1 tab Q6H PRN PO 09/25/17 15:30 09/25/17 22:11 Assessment and Plan Assessment and Plan 57 year old male with left foot gas gangrene s/p left second digit amputation by vascular s/p vascular intervention for reperfusion to PT artery Patient evaluated and treated with all questions answered Xray perform with soft tissue emphysema present - gas gangrene infection left foot Discussed surgical intervention with patient to consist of incision and drainage of left foot with probable transmetatarsal amputation depending on viability of soft tissue Emphasized to patient will attempt to salvage forefoot however due to degree of the infection and soft tissue damage most likely transmetatarsal amputation will be only option for limb salvage Patient states he agrees with treatment plan Discussed possible need for repeat debridement and irrigation Will obtain that the OR culture of soft tissue and bone Consent signed with patient and discussed Left foot signed and marked Alternatives, risks, complications, benefits discussed with patient Ada Judge DPM Sep 26, 2017 05:04
[2017-09-26] MEDS ORDERED: BUPIVACAINE HCL PF 0.5% 30 ML VIAL ONE (05:13)
[2017-09-26] MEDS ORDERED: LIDOCAINE HCL 1% 50 ML VIAL ONE (05:13)
[2017-09-26] MEDS ORDERED: DO NOT ADM ANY ANTICOAGULANT DRUGS PRN (06:51)
[2017-09-26] MEDS ORDERED: Post-op Orders (for Pharmacy) XX ONE (07:00)
--- NOTE | 2017-09-26 07:00 | HHI.PR ---
Immediate Post Op Note Procedure Date: Sep 26, 2017 Pre Op Diagnosis: (1) Gas gangrene Gas Gangrene left foot Post Op Diagnosis: (1) Gas gangrene Surgeon: Ada Judge Loan Inspector(s): None Procedure: Left foot transmetatarsal amputation Findings: Gas Gangrene infection with tracking noted to anterior ankle and plantar flexor tendon Complications: None Specimen(s) removed: Left foot soft tissue for micro/culture Left foot second metatarsal for pathology Left foot second metatarsal for micro/culture Estimated blood loss: 20cc Anesthesia: General Drains: None Patient to: PACU Patient Condition: Good Date/Time of Procedure: SEE SURGICAL CARE RECORD (09/26/17) Ada Judge DPM Sep 26, 2017 07:00
[2017-09-26] MEDS ORDERED: MORPHINE SULFATE 4 MG/ML INJ ONE ×2 (07:12→07:31)
[2017-09-26] MEDS: INSULIN ASPART SUPPLEMENTAL SCALE SQ SCH ×4 (08:00→20:58)
--- NOTE | 2017-09-26 08:06 | HHI.FPPN ---
Subjective Remarks Patient seen and examined this morning. Temperature 98.5, pulse 79, respiratory rate 16, blood pressure 130/59, pulse ox 100% on 2 L nasal cannula. He is status post left foot transmetatarsal amputation. The amputation is currently wrapped up clean dry and intact bandages. Reports that he is tired and does have some mild pain. Patient's goals today are to rest now that the procedure is done and he agrees with this. (Harley Soni MD, R3) Objective Vitals Vital Signs Date Time Temp Pulse Resp B/P (MAP) Pulse Ox O2 Delivery O2 Flow Rate FiO2 09/26/17 07:30 98.5 79 16 130/59 (82) 100 Nasal Cannula 2 09/26/17 07:15 83 17 127/60 (82) 100 Nasal Cannula 2 09/26/17 07:00 81 17 124/59 (80) 100 Nasal Cannula 2 09/26/17 06:51 98.8 81 15 115/57 (76) 100 Simple Mask 10 09/26/17 04:52 99.0 88 136/69 (91) 99 09/26/17 04:31 98.6 86 14 131/61 (84) 95 09/26/17 04:00 82 09/26/17 03:00 88 09/26/17 02:00 86 09/26/17 01:00 86 09/26/17 00:00 84 09/25/17 23:00 99.1 88 125/55 (78) 98 09/25/17 23:00 86 09/25/17 22:00 88 09/25/17 21:00 86 09/25/17 20:00 88 09/25/17 20:00 98.7 104 144/69 (94) 99 09/25/17 19:00 101 09/25/17 18:00 94 09/25/17 17:00 90 09/25/17 16:00 94 09/25/17 16:00 98.3 88 16 152/70 (97) 97 09/25/17 15:00 96 09/25/17 14:00 96 09/25/17 13:00 96 09/25/17 12:00 84 09/25/17 12:00 98.6 90 16 145/66 (92) 98 09/25/17 11:00 88 09/25/17 10:00 86 09/25/17 09:00 86 I/O 09/25/17 09/25/17 09/25/17 09/26/17 09/26/17 09/26/17 07:00 15:00 23:00 07:00 15:00 23:00 Intake Total 440 ml 50 ml 720 ml 300 ml Output Total 0 ml 100 ml Balance 440 ml 50 ml 720 ml 200 ml Intake Oral 440 ml 720 ml IV Total 50 ml Other 300 ml Output Urine Total 0 ml Estimated Blood Loss 100 ml # Voids 0 1 1 # Bowel Movements 1 1 1 (Harley Soni MD, R3) Result Diagram: 09/25/17 0502 09/25/17 0502 Imaging Last Impressions Foot X-Ray 09/25/17 0000 Signed Impressions: Service Date/Time: Monday, September 25, 2017 21:38 - CONCLUSION: 1. No acute bony abnormality. Extensive vascular calcifications. Fabian Strauss MD Objective Remarks GENERAL: Lying in bed, no distress SKIN: Right great toe scab wound healing. Left foot is wrapped in a bandage is clean dry and intact. HEENT: Normocephalic, no nasal discharge, no scleral icterus or injection CARDIOVASCULAR: Regular rate without murmurs, gallops, or rubs. Left forearm AV fistula positive thrill and bruit. RESPIRATORY: Clear to auscultation. Breath sounds equal bilaterally. No wheezes , rales, or rhonchi. GASTROINTESTINAL: Abdomen soft, non-tender, nondistended, normal bowel sounds MUSCULOSKELETAL: Palpable but weak dorsalis pedis and posterior tibial pulses. No edema. NEUROLOGICAL: Awake and alert. Procedures 09/24/17: 1. Aortogram with left lower extremity angiograms 2. Left posterior tibial artery angioplasty with 3 mm balloon 3. Right common femoral artery Angio-Seal 09/26/17: Left foot transmetatarsal amputation, with findings of gas gangrene infection Medications and IVs Current Medications Medications (Trade) Dose Ordered Sig/April Route Start Time Stop Time Status Last Admin (NS Flush) 2 ml UNSCH PRN IV FLUSH 09/21/17 12:00 (NS Flush) 2 ml BID IV FLUSH 09/21/17 21:00 09/25/17 21:00 (Zofran Inj) 4 mg Q6H PRN IVP 12/8/17 12:00 (Milk Of Magnesia Liq) 30 ml Q12H PRN PO 09/21/17 12:00 (Senokot) 17.2 mg Q12H PRN PO 09/21/17 12:00 (Dulcolax Supp) 10 mg DAILY PRN RECTAL 09/21/17 12:00 (Lactulose Liq) 30 ml DAILY PRN PO 09/21/17 12:00 (NovoLOG SUPPLEMENTAL SCALE) 1 ACHS SLIDING SCALE SQ 09/21/17 12:00 09/25/17 21:42 (Levemir Inj) 5 units Q12HR SQ 09/21/17 21:00 09/25/17 21:42 (D50w (Vial) Inj) 50 ml UNSCH PRN IV PUSH 09/21/17 12:30 (Glucagon Inj) 1 mg UNSCH PRN OTHER 09/21/17 12:30 Sodium Chloride 1,000 ml @ 0 mls/hr Q0M PRN OTHER 09/21/17 13:35 (Heparin Inj) 8,000 units UNSCH PRN IV FLUSH 09/21/17 13:45 Sodium Chloride 1,000 ml @ 200 mls/hr Q5H PRN IV 09/21/17 13:35 Sodium Chloride 1,000 ml @ 0 mls/hr Q0M PRN OTHER 09/21/17 13:35 (Mannitol Inj) 12.5 gm UNSCH PRN IV 09/21/17 13:45 Albumin Human 100 ml @ 60 mls/hr UNSCH PRN IV 09/21/17 13:45 (NS Flush) 5 ml UNSCH PRN IV FLUSH 09/21/17 13:45 (Heparin Inj) UNSCH PRN .XX 09/21/17 13:45 (Gentamicin (Dialysis) Inj) 20 mg UNSCH PRN OTHER 09/21/17 13:45 (Zofran Inj) 4 mg UNSCH PRN IV PUSH 09/21/17 13:45 (Benadryl) 25 mg UNSCH PRN PO 09/21/17 13:45 09/24/17 03:29 (Nitrostat Sl) 0.4 mg UNSCH PRN SL 09/21/17 13:45 (Catapres) 0.1 mg UNSCH PRN PO 09/21/17 13:45 (Epogen Inj) 6,000 units UNSCH PRN IV PUSH 09/21/17 13:45 09/24/17 15:43 (Gelfoam 12 Mm/7 Mm Top) 1 foam UNSCH PRN TOP 09/21/17 13:45 Piperacillin Sod/ Tazobactam Sod 50 ml @ 100 mls/hr Q12H IV 09/21/17 15:00 09/26/17 03:34 Vancomycin HCl 1000 mg/Sodium Chloride 250 ml @ 250 mls/hr WITH DIALYSIS IV 09/21/17 15:45 09/24/17 15:44 (Narcan Inj) 0.4 mg UNSCH PRN IV PUSH 09/21/17 19:00 (Neurontin) 100 mg TID PO 09/22/17 09:00 09/25/17 17:07 (Tylenol) 650 mg Q8H PO 09/22/17 09:00 09/26/17 03:34 (Dilaudid Pf Inj) 0.5 mg Q3H PRN IV PUSH 09/22/17 08:45 09/25/17 04:13 (Dilaudid Pf Inj) 1 mg Q3H PRN IV PUSH 09/22/17 08:45 09/25/17 14:15 (Dilaudid Pf Inj) 1 mg Q3H PRN IV PUSH 09/22/17 08:45 (Thorazine) 25 mg Q6H PRN PO 09/22/17 17:15 09/22/17 17:45 (Thorazine Inj) 25 mg Q8H PRN IM 09/22/17 17:15 (Heparin Inj) 5,000 units Q8H SQ 09/23/17 10:00 09/25/17 17:07 (Odette-Colace) 1 tab BID PO 09/23/17 09:45 09/25/17 21:42 Pharmacy Profile Note 0 ml @ 0 mls/hr UNSCH OTHER 09/23/17 10:30 (Duoneb Neb) 1 ampule Q4HR NEB PRN NEB 09/23/17 10:30 Lactated Ringer's 1,000 ml @ 30 mls/hr Q24H PRN IV 09/24/17 04:45 09/27/17 04:44 Sodium Chloride 500 ml @ 30 mls/hr [id number] PRN IV 09/24/17 04:45 09/27/17 04:44 (Lopressor) 25 mg PRODUCTION MATERIAL COORDINATOR PRN PO 09/24/17 04:45 09/27/17 04:44 (Betadine 5% Antisepsis Kit) 1 applic PRODUCTION MATERIAL COORDINATOR PRN EACH NARE 09/24/17 04:45 09/27/17 04:44 (Chlorhexidine 2% Cloth) 3 pack PRODUCTION MATERIAL COORDINATOR PRN TOPICAL 09/24/17 04:45 09/27/17 04:44 (Percocet 5-325 Mg) 1 tab Q6H PRN PO 09/25/17 15:30 09/25/17 22:11 (Post-op Orders (for Pharmacy)) STAT ONCE XX 09/26/17 07:00 09/26/17 07:01 UNV (Harley Soni MD, R3) A/P Assessment and Plan 57-year-old male with medical history of end-stage renal disease on hemodialysis MWF, COPD, Type 1 DM that is uncontrolled, and peripheral vascular disease, who presents with left foot infection. Status post left posterior tibial artery angioplasty with 3 mm balloon. Discharge Planning Discharge pending further recommendations from vascular surgery (Harley Soni MD, R3) Attending Attestation Patient seen and examined. Case reviewed and discussed with the resident team. Agree with plan of care as discussed with me and documented in the resident note. appreciate help of Dr Ortiz. 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 [place] [facility] when he is medically stable (Jasmyne Armijo MD) Problem List: (1) Gas gangrene of foot ICD Codes: A48.0 - Gas gangrene Status: Acute Plan: History of amputation of the left second toe, now with infected gangrenous foot draining purulent fluid. Has history of uncontrolled type 1 diabetes with peripheral neuropathy as well as peripheral vascular disease. Previous cultures for the foot grew staph aureus and enterococcus faecalis sensitive to daptomycin, Zyvox, and vancomycin. Patient afebrile with mild leukocytosis. X-ray findings consistent with gas gangrene. Amputation performed, and findings during the amputation consistent with gas gangrene. - Follow blood and wound cultures - Vancomycin and Zosyn started 09/21/17 - Consulted vascular surgery Dr. Ortiz, appreciate recommendations - Infectious disease consulted, recommendations appreciated - Podiatry consulted, recommendations appreciated - Pain management with gabapentin for neuropathic etiology, Dilaudid due to ESRD , and Tylenol scheduled. - Status post left posterior tibial artery angioplasty with 3 mm balloon - Patient is status post left foot transmetatarsal amputation. - Recently quit smoking, encourage continued abstinence from tobacco use. - Encourage better control of diabetes and closer follow up with PCP. (2) Diabetes type 1, uncontrolled ICD Codes: E10.65 - Type 1 diabetes mellitus with hyperglycemia Status: Chronic Plan: Type 1 diabetes that is poorly controlled. A1C is 11.5. Blood glucoses here have been relatively well controlled. Ranging between 97-258 - Continue home medication with Levemir 5 units bid - Sliding scale insulin. - Order cosmetology educator for poorly controlled diabetes. (3) End stage renal disease ICD Codes: N18.6 - End-stage renal disease Status: Chronic Plan: End-stage renal disease on hemodialysis - Consult nephrology for continuation of hemodialysis while inpatient - Left AV fistula with positive thrill and bruit - Renal diet - Avoid nephrotoxic agents as much as possible, monitor vancomycin levels, vancomycin pharmacy consult (4) COPD (chronic obstructive pulmonary disease) ICD Codes: J44.9 - Chronic obstructive pulmonary disease, unspecified Status: Chronic Plan: COPD, not in exacerbation - DuoNebs PRN (5) No contraindication to deep vein thrombosis (DVT) prophylaxis ICD Codes: Z78.9 - Other specified health status Status: Acute Plan: - Heparin 5000 units tid (6) Nutrition, metabolism, and development symptoms ICD Codes: R63.8 - Other symptoms and signs concerning food and fluid intake Status: Acute Plan: ESRD, monitor electrolytes Renal diet (Harley Soni MD, R3) Harley Soni MD, R3 Sep 26, 2017 08:06 Jasmyne Armijo MD Sep 26, 2017 12:12
[2017-09-26] MEDS: GABAPENTIN 100 MG CAP PO SCH ×3 (08:21→17:48)
[2017-09-26] MEDS: DOCUSATE SODIUM 50 MG/SENNA 8.6 MG TAB PO SCH ×2 (08:21→20:40)
[2017-09-26] MEDS: HYDROmorphone HCL PF 1 MG/ML VIAL IV PUSH PRN ×3 (08:21→15:56)
--- NOTE | 2017-09-26 08:28 | RADRPT ---
EXAM DATE/TIME: 09/26/2017 08:10 [facility] COMPARISON: FOOT LEFT COMPLETE ([id number]), September 25, 2017, 21:41. INDICATIONS : Post op left transmetatarsal amputation. MEDICAL HISTORY : Diabetes mellitus type II. SURGICAL HISTORY : 2nd toe amputation. ENCOUNTER: Subsequent ACUITY: 1 day PAIN SCORE: 0/10 LOCATION: Left foot. FINDINGS: Three view examination of the left foot demonstrates postsurgical changes with amputation at the prox imal metatarsals. Vascular calcifications. The calcaneus is intact. Bony mineralization is normal. CONCLUSION: Amputation of metatarsals. Emmanuel Azul MD on September 26, 2017 at 8:26 Board Certified Radiologist. This report was verified electronically.
[2017-09-26] MEDS: INSULIN DETEMIR 100 UNITS/ML VIAL SQ SCH ×2 (09:00→20:58)
--- NOTE | 2017-09-26 10:26 | HHI.NPPN ---
Subjective History of Present Illness 57-year-old male with past medical history of hypertension, diabetes mellitus, chronic obstructive pulmonary disease, peripheral vascular disease, chronic anemia, end-stage renal disease on hemodialysis who came to the hospital with complaint of pain in the right foot. I was called to see the patient for management of dialysis. The patient has been on hemodialysis Sunday, Sunday and Sunday. Additional Remarks Patient is alert, complaining of foot pain, no SOB. Objective Data Data Vital Signs Date Time Temp Pulse Resp B/P (MAP) Pulse Ox O2 Delivery O2 Flow Rate FiO2 09/26/17 08:19 98.3 81 18 135/59 (84) 09/26/17 07:30 98.5 79 16 130/59 (82) 100 Nasal Cannula 2 09/26/17 07:15 83 17 127/60 (82) 100 Nasal Cannula 2 09/26/17 07:00 81 17 124/59 (80) 100 Nasal Cannula 2 09/26/17 06:51 98.8 81 15 115/57 (76) 100 Simple Mask 10 09/26/17 04:52 99.0 88 136/69 (91) 99 09/26/17 04:31 98.6 86 14 131/61 (84) 95 09/26/17 04:00 82 09/26/17 03:00 88 09/26/17 02:00 86 09/26/17 01:00 86 09/26/17 00:00 84 09/25/17 23:00 99.1 88 125/55 (78) 98 09/25/17 23:00 86 09/25/17 22:00 88 09/25/17 21:00 86 09/25/17 20:00 88 09/25/17 20:00 98.7 104 144/69 (94) 99 09/25/17 19:00 101 09/25/17 18:00 94 09/25/17 17:00 90 09/25/17 16:00 94 09/25/17 16:00 98.3 88 16 152/70 (97) 97 09/25/17 15:00 96 09/25/17 14:00 96 09/25/17 13:00 96 09/25/17 12:00 84 09/25/17 12:00 98.6 90 16 145/66 (92) 98 09/25/17 11:00 88 -: 12/12/17 0502 09/25/17 0502 Microbiology 09/26/17 Fungal Smear, Received Pending 09/26/17 Fungal Culture, Received Pending 09/26/17 Acid Fast Stain, Received Pending 09/26/17 Mycobacterial Culture, Received Pending 09/26/17 Gram Stain, Received Pending 09/26/17 Wound Culture, Received Pending 09/26/17 Fungal Smear, Received Pending 09/26/17 Fungal Culture, Received Pending 09/26/17 Acid Fast Stain, Received Pending 09/26/17 Mycobacterial Culture, Received Pending 09/26/17 Gram Stain, Received Pending 09/26/17 Wound Culture, Received Pending Physical Exam General Appearance: No Acute Distress, Comfortable Neck Neck Exam: Neck Supple Pulmonary Resp Exam: Clear Bilaterally, Breath Sounds Equal Cardiology CV Exam: Regular Gastrointestinal/Abdomen GI Exam: Soft, Non-Tender, Bowel Sounds Present Extremeties Extremities Exam: Trace Edema (left foot dressed) Neurologic Neuro Exam: Alert, Awake, Oriented Psychiatric Psych Exam: Appropriate Responses Assessment/Plan Problem List: (1) ESRD (end stage renal disease) ICD Codes: N18.6 - End-stage renal disease Status: Acute (2) DM (diabetes mellitus) ICD Codes: E11.9 - Type 2 diabetes mellitus without complications Status: Chronic Plan: monitor BG (3) PAD (peripheral artery disease) ICD Codes: I73.9 - Peripheral vascular disease, unspecified Status: Chronic Plan: Vascular surgery following Plan Patient has HD done yesterday. Post angiogram and plasty done 09/24. Hgb. dropped, on Epogen, will follow. BP is stable. On Vanco. with HD and Zosyn. Has more pain, on Dilaudid IV, add Percocet in between. HD today. For possible TMA. Joshua Perry MD Sep 26, 2017 10:26
[2017-09-26] MEDS: EPOETIN ALFA 10,000 UNITS/ML VIAL IV PUSH PRN (14:09)
[2017-09-26] MEDS: GELATIN 12 MM/7 MM FOAM TOP PRN (14:09)
[2017-09-26] MEDS: VANCOMYCIN INJ 1,000 MG in SODIUM CHLOR 0.9% 250 ML INJ 250 ML IV SCH (14:10)
[2017-09-26] MEDS: SODIUM CHLORIDE 0.9% FLUSH 10 ML FLUSH IV FLUSH SCH ×2 (15:59→20:41)
[2017-09-26] MEDS: oxyCODONE/ACETAMINOPHEN 5 MG/325 MG TAB PO PRN (20:40)
[2017-09-27] VITALS (24 sets, daily range): BP systolic 109–138; BP diastolic 49–71; PULSE 64–94; RESP 16–18; TEMP 97.5–99.2; O2SAT 94–100
[2017-09-27] MEDS: ACETAMINOPHEN 325 MG TAB PO SCH ×4 (00:22→23:42)
[2017-09-27] MEDS: HEPARIN SODIUM - SQ 10,000 UNITS/ML VIAL SQ SCH ×3 (00:22→18:00)
[2017-09-27] MEDS ORDERED: INSULIN ASPART 1,000 UNITS/10 ML VIAL SQ ONE (01:15)
[2017-09-27] MEDS: PIPERACIL-TAZO 2.25 GM PREMIX 50 ML IV SCH ×2 (03:34→15:00)
[2017-09-27] MEDS: oxyCODONE/ACETAMINOPHEN 5 MG/325 MG TAB PO PRN ×3 (05:05→23:43)
[2017-09-27 05:33] LABS: MEAN CELL VOLUME 83.5 FL (80.0-100.0); MEAN CORPUSCULAR HEMOGLOBIN 27.6 PG (27.0-34.0); PLATELET COUNT 349 TH/MM3 (150-450); RED BLOOD COUNT 2.63 MIL/MM3 (4.50-5.90); RED CELL DISTRIBUTION WIDTH 17.7 % (11.6-17.2); REVIEW FLAG FINAL; WHITE BLOOD COUNT 14.9 TH/MM3 (4.0-11.0)
[2017-09-27 05:52] LABS: BICARBONATE 30.7 MEQ/L (21.0-32.0); POTASSIUM 4.1 MEQ/L (3.5-5.1)
[2017-09-27] MEDS: INSULIN ASPART SUPPLEMENTAL SCALE SQ SCH ×4 (08:00→21:00)
--- NOTE | 2017-09-27 08:26 | MR ---
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 ANESTHESIA General with a local infiltrative 1:1, 0.5% Marcaine plain, 1% Lidocaine plain infiltrated about the right ankle. HEMOSTASIS None ESTIMATED BLOOD LOSS 20 cc MATERIALS 3-0 Prolene INJECTABLES None COMPLICATIONS None INDICATIONS The patient is a 62-year-old diabetic male who underwent left foot second digit amputation by vascular. Per vascular doctor, the patient was healing well. When patient presented to clinic for postop visit, a dorsal wound was noted at the amputation site. The patient was admitted to the hospital for worsening left foot ischemia. The patient given vascular intervention. Podiatry was consulted for non-healing wound. Upon meeting patient and consult being performed, malodor was noted to the left foot wound. X-rays were taken and gas gangrene was noted to x-rays. The patient was emergently taken to the OR for left foot incision and drainage and possible transmetatarsal amputation. The patient understands that if infection is severe, transmetatarsal amputation will need to be performed. He is on board for transmetatarsal amputation in order to try and save the limb. The patient understands that he may be brought back to the operating room for debridement and possible amputation to facilitate healing. The patient understands the risks, benefits and alternatives. DESCRIPTION OF PROCEDURE The patient was brought back to the operating room, placed on the operating room table in the supine position. After adequate induction anesthesia, the left foot was prepped and draped in a sterile fashion. It was decided at this point because of the extent of gas gangrene to the dorsum of the left foot and depth of infection, a transmetatarsal amputation would be an appropriate course of action. An incision was made at the digital focus to preserve a plantar flap. The incision was continued dorsal foot at the site of gangrenous demarcation. Incision was carried down to bone with care to retract all vital neurovascular structures. The incision was then continued through subcutaneous tissue to bone and the shaft of the metatarsal bones. A Blum elevator was then utilized to free soft tissue from all metatarsal bone and an oscillating saw was used to divide the first, second, third, fourth and fifth metatarsals. The amputation was completed leaving a flap healthy and intact. All tendons and nonviable tissue were debrided from the incision site. Plantar tracking of infection was noted to flexor plantarly. Thorough debridement was performed to remove all necrotic tissue. Tracking was noted to anterior ankle. Debridement was performed removing all nonviable tissue. Upon compression, purulent drainage, as well as soap bubble drainage was noted to the left foot. Further debridement of all necrotic and nonviable tissue was performed. The site was then copiously irrigated with three liters of normal saline. Hemostasis was obtained with limited electrocautery and Vicryl 3-0 stitches. Pulse lavage, soft tissue culture was taken, as well as post-lavage resection of the second metatarsal for micropathology. All specimens were passed from the field. Care was taken to place the flap under tension in order to not jeopardize the vascular supply. 3-0 Prolene was then utilized to reapproximate the plantar flap to dorsal incision. This approximation was noted to allow for drainage. The site was then dressed with Adaptic, 4 x 4's, cast padding and EG pads, Prudencio. The patient tolerated the procedure well and was transferred from the OR to PACU with vital signs stable and neurovascular status intact to plantar flap and dorsal skin. The patient will need to undergo further debridement and irrigation with delayed primary closure. He will continue IV antibiotics per infectious disease. YAKELIN Candelario /4:11 PM /7:54 AM
[2017-09-27] MEDS: SODIUM CHLORIDE 0.9% FLUSH 10 ML FLUSH IV FLUSH SCH ×2 (09:00→21:08)
--- NOTE | 2017-09-27 09:13 | HHI.FPPN ---
Subjective Remarks Patient seen and examined this morning. Temperature 98.6, pulse 70, respiratory rate 18, blood pressure 109/49, pulse ox 100% on room air. Overnight patient's blood sugar was elevated at 473, 9 units of insulin were given, with a repeat of 400, 9 units of insulin were given once more. This morning the blood glucose was 276. The elevation is believed to be due to patient being status post surgery. Patient reports that his pain is improving and that he tolerated his procedure well. He understands the plan of care is to have a repeat debridement of his foot later in this hospitalization. He is also to continue IV antibiotics per infectious disease recommendations. He understands and agrees to plan of care. (Harley Soni MD, R3) Objective Vitals Vital Signs Date Time Temp Pulse Resp B/P (MAP) Pulse Ox O2 Delivery O2 Flow Rate FiO2 09/27/17 06:05 20 09/27/17 06:00 71 09/27/17 05:00 70 09/27/17 04:00 70 09/27/17 04:00 98.6 72 18 109/49 (69) 100 09/27/17 04:00 70 09/27/17 04:00 Room Air 09/27/17 03:00 74 09/27/17 02:00 72 09/27/17 01:22 20 09/27/17 01:00 76 09/27/17 00:00 74 09/27/17 00:00 Room Air 09/27/17 00:00 99.2 69 18 109/52 (71) 94 09/26/17 23:00 74 09/26/17 22:00 82 09/26/17 21:00 74 09/26/17 20:00 99.5 83 18 130/55 (80) 100 09/26/17 20:00 Room Air 09/26/17 20:00 87 09/26/17 19:00 98 09/26/17 16:08 97.9 88 18 152/67 (95) 09/26/17 15:48 97.9 88 18 152/67 (95) 99 I/O 09/26/17 09/26/17 09/26/17 09/27/17 09/27/17 09/27/17 07:00 15:00 23:00 07:00 15:00 23:00 Intake Total 300 ml 480 ml 290 ml Output Total 100 ml 1000 ml Balance 200 ml -520 ml 290 ml Intake Oral 480 ml 240 ml IV Total 50 ml Other 300 ml Hemodialysis 1000 ml Estimated Blood Loss 100 ml # Voids 1 1 2 # Bowel Movements 1 1 1 (Harley Soni MD, R3) Result Diagram: 09/27/17 0500 09/27/17 0500 Imaging Last Impressions Foot X-Ray 09/26/17 0000 Signed Impressions: Service Date/Time: Tuesday, September 26, 2017 08:10 - CONCLUSION: Amputation of metatarsals. Emmanuel Azul MD Objective Remarks GENERAL: Sitting up at the edge of the bed in no apparent distress eating his breakfast. SKIN: Right great toe scab wound healing. Left foot is wrapped in a bandage is clean dry and intact. HEENT: Normocephalic, no nasal discharge, no scleral icterus or injection CARDIOVASCULAR: Regular rate without murmurs, gallops, or rubs. Left forearm AV fistula positive thrill and bruit. RESPIRATORY: Clear to auscultation. Breath sounds equal bilaterally. No wheezes , rales, or rhonchi. GASTROINTESTINAL: Abdomen soft, non-tender, nondistended, normal bowel sounds MUSCULOSKELETAL: Palpable but weak dorsalis pedis and posterior tibial pulses. No edema. NEUROLOGICAL: Awake and alert. Procedures 09/24/17: 1. Aortogram with left lower extremity angiograms 2. Left posterior tibial artery angioplasty with 3 mm balloon 3. Right common femoral artery Angio-Seal 09/26/17: Left foot transmetatarsal amputation, with findings of gas gangrene infection Medications and IVs Current Medications Medications (Trade) Dose Ordered Sig/Aprli Route Start Time Stop Time Status Last Admin (NS Flush) 2 ml UNSCH PRN IV FLUSH 09/21/17 12:00 (NS Flush) 2 ml BID IV FLUSH 09/21/17 21:00 09/26/17 20:41 (Zofran Inj) 4 mg Q6H PRN IVP 09/21/17 12:00 (Milk Of Magnesia Liq) 30 ml Q12H PRN PO 09/21/17 12:00 (Senokot) 17.2 mg Q12H PRN PO 09/21/17 12:00 (Dulcolax Supp) 10 mg DAILY PRN RECTAL 09/21/17 12:00 (Lactulose Liq) 30 ml DAILY PRN PO 09/21/17 12:00 (NovoLOG SUPPLEMENTAL SCALE) 1 ACHS SLIDING SCALE SQ 09/21/17 12:00 09/26/17 20:58 (Levemir Inj) 5 units Q12HR SQ 09/21/17 21:00 09/26/17 20:58 (D50w (Vial) Inj) 50 ml UNSCH PRN IV PUSH 09/21/17 12:30 (Glucagon Inj) 1 mg UNSCH PRN OTHER 09/21/17 12:30 Sodium Chloride 1,000 ml @ 0 mls/hr Q0M PRN OTHER 09/21/17 13:35 (Heparin Inj) 8,000 units UNSCH PRN IV FLUSH 09/21/17 13:45 Sodium Chloride 1,000 ml @ 200 mls/hr Q5H PRN IV 09/21/17 13:35 Sodium Chloride 1,000 ml @ 0 mls/hr Q0M PRN OTHER 09/21/17 13:35 (Mannitol Inj) 12.5 gm UNSCH PRN IV 09/21/17 13:45 Albumin Human 100 ml @ 60 mls/hr UNSCH PRN IV 09/21/17 13:45 (NS Flush) 5 ml UNSCH PRN IV FLUSH 09/21/17 13:45 (Heparin Inj) UNSCH PRN .XX 09/21/17 13:45 (Gentamicin (Dialysis) Inj) 20 mg UNSCH PRN OTHER 09/21/17 13:45 (Zofran Inj) 4 mg UNSCH PRN IV PUSH 09/21/17 13:45 (Benadryl) 25 mg UNSCH PRN PO 09/21/17 13:45 09/24/17 03:29 (Nitrostat Sl) 0.4 mg UNSCH PRN SL 09/21/17 13:45 (Catapres) 0.1 mg UNSCH PRN PO 09/21/17 13:45 (Epogen Inj) 6,000 units UNSCH PRN IV PUSH 09/21/17 13:45 09/26/17 14:09 (Gelfoam 12 Mm/7 Mm Top) 1 foam UNSCH PRN TOP 09/21/17 13:45 09/26/17 14:09 Piperacillin Sod/ Tazobactam Sod 50 ml @ 100 mls/hr Q12H IV 09/21/17 15:00 09/27/17 03:34 Vancomycin HCl 1000 mg/Sodium Chloride 250 ml @ 250 mls/hr WITH DIALYSIS IV 09/21/17 15:45 09/26/17 14:10 (Narcan Inj) 0.4 mg UNSCH PRN IV PUSH 09/21/17 19:00 (Neurontin) 100 mg TID PO 09/22/17 09:00 09/26/17 17:48 (Tylenol) 650 mg Q8H PO 09/22/17 09:00 09/27/17 00:22 (Dilaudid Pf Inj) 0.5 mg Q3H PRN IV PUSH 09/22/17 08:45 09/25/17 04:13 (Dilaudid Pf Inj) 1 mg Q3H PRN IV PUSH 09/22/17 08:45 09/26/17 15:56 (Dilaudid Pf Inj) 1 mg Q3H PRN IV PUSH 09/22/17 08:45 (Thorazine) 25 mg Q6H PRN PO 09/22/17 17:15 09/22/17 17:45 (Thorazine Inj) 25 mg Q8H PRN IM 09/22/17 17:15 (Heparin Inj) 5,000 units Q8H SQ 09/23/17 10:00 09/27/17 00:22 (Odette-Colace) 1 tab BID PO 09/23/17 09:45 09/26/17 20:40 Pharmacy Profile Note 0 ml @ 0 mls/hr UNSCH OTHER 09/23/17 10:30 (Duoneb Neb) 1 ampule Q4HR NEB PRN NEB 09/23/17 10:30 (Percocet 5-325 Mg) 1 tab Q6H PRN PO 09/25/17 15:30 09/27/17 05:05 (Harley Soni MD, R3) A/P Assessment and Plan 57-year-old male with medical history of end-stage renal disease on hemodialysis MWF, COPD, Type 1 DM that is uncontrolled, and peripheral vascular disease, who presents with left foot infection. Status post left posterior tibial artery angioplasty with 3 mm balloon. Discharge Planning Discharge pending further recommendations from vascular surgery, podiatry, and infectious disease (Harley Soni MD, R3) Attending Attestation Patient seen and examined. Case reviewed and discussed with the resident team. Agree with plan of care as discussed with me and documented in the resident note. Mr Aguilera has been concerned about his outpt placement and care. He was at [facility] and does like it and wants to go back there. However, the last time he went to [facility], he stated that he did not receive antibiotics or pain meds for a week as there was some problem when he first arrived with paperwork or some snafu that he wants to make sure does not happen again. (Jasmyne Armijo MD) Problem List: (1) Gas gangrene of foot ICD Codes: A48.0 - Gas gangrene Status: Acute Plan: History of amputation of the left second toe, now with infected gangrenous foot draining purulent fluid. Has history of uncontrolled type 1 diabetes with peripheral neuropathy as well as peripheral vascular disease. Previous cultures for the foot grew staph aureus and enterococcus faecalis sensitive to daptomycin, Zyvox, and vancomycin. Patient afebrile with mild leukocytosis. X-ray findings consistent with gas gangrene. Amputation performed, and findings prior and during the amputation consistent with gas gangrene. - Follow blood and wound cultures - Vancomycin and Zosyn started 09/21/17 - Consulted vascular surgery Dr. Ortiz, appreciate recommendations - Infectious disease consulted, recommendations appreciated - Podiatry consulted, recommendations appreciated - Pain management with gabapentin for neuropathic etiology, Dilaudid due to ESRD , and Tylenol scheduled. - Status post left posterior tibial artery angioplasty with 3 mm balloon - Status post left foot transmetatarsal amputation. - Recently quit smoking, encourage continued abstinence from tobacco use. - Encourage better control of diabetes and closer follow up with PCP. (2) Diabetes type 1, uncontrolled ICD Codes: E10.65 - Type 1 diabetes mellitus with hyperglycemia Status: Chronic Plan: Type 1 diabetes that is poorly controlled. A1C is 11.5. Blood glucoses here have been relatively well controlled. Ranging between 276-473 - Increase Levemir from 5 units twice a day to 7.5 units twice a day - Sliding scale insulin. - Order life educator for poorly controlled diabetes. (3) End stage renal disease ICD Codes: N18.6 - End-stage renal disease Status: Chronic Plan: End-stage renal disease on hemodialysis - Consult nephrology for continuation of hemodialysis while inpatient - Left AV fistula with positive thrill and bruit - Renal diet - Avoid nephrotoxic agents as much as possible, monitor vancomycin levels, vancomycin pharmacy consult (4) COPD (chronic obstructive pulmonary disease) ICD Codes: J44.9 - Chronic obstructive pulmonary disease, unspecified Status: Chronic Plan: COPD, not in exacerbation - DuoNebs PRN (5) No contraindication to deep vein thrombosis (DVT) prophylaxis ICD Codes: Z78.9 - Other specified health status Status: Acute Plan: - Heparin 5000 units tid (6) Nutrition, metabolism, and development symptoms ICD Codes: R63.8 - Other symptoms and signs concerning food and fluid intake Status: Acute Plan: ESRD, monitor electrolytes Renal diet (Harley Soni MD, R3) Harley Soni MD, R3 Sep 27, 2017 09:13 Jasmyne Armijo MD Sep 27, 2017 09:53
[2017-09-27] MEDS: GABAPENTIN 100 MG CAP PO SCH ×3 (09:33→18:21)
[2017-09-27] MEDS: DOCUSATE SODIUM 50 MG/SENNA 8.6 MG TAB PO SCH ×2 (09:33→21:00)
--- NOTE | 2017-09-27 14:27 | PD.VS.PN ---
Subjective POD #: 3 Procedure(s): Aortogram w/ L LE angiogram L PT [employer] (3mm) R [employer]ATE Angioseal Subjective/Hospital Course Afebrile 57/M POD 3- S/P LEFT lower extremity revascularization Pt w/o complaints Denied pain Ambulated w/ PT Pt denied claudication/rest pain LE warm w/ motor intact Post operative LLE dressing I/C/D Objective Vitals/I&O Date Time Temp Pulse Resp B/P (MAP) Pulse Ox O2 Delivery O2 Flow Rate FiO2 09/27/17 13:50 100 09/27/17 11:44 97.7 75 18 133/55 (81) 100 09/27/17 08:45 97.5 76 18 138/65 (89) 97 09/27/17 08:45 97 Room Air 09/27/17 06:05 20 09/27/17 06:00 71 09/27/17 05:00 70 09/27/17 04:00 70 09/27/17 04:00 98.6 72 18 109/49 (69) 100 09/27/17 04:00 70 09/27/17 04:00 Room Air 09/27/17 03:00 74 09/27/17 02:00 72 09/27/17 01:22 20 09/27/17 01:00 76 09/27/17 00:00 74 09/27/17 00:00 Room Air 09/27/17 00:00 99.2 69 18 109/52 (71) 94 09/26/17 23:00 74 09/26/17 22:00 82 09/26/17 21:00 74 09/26/17 20:00 99.5 83 18 130/55 (80) 100 09/26/17 20:00 Room Air 09/26/17 20:00 87 09/26/17 19:00 98 09/26/17 16:08 97.9 88 18 152/67 (95) 09/26/17 15:48 97.9 88 18 152/67 (95) 99 09/27/17 09/27/17 09/27/17 07:00 15:00 23:00 Intake Total 290 ml Balance 290 ml Exam: GENERAL: A&OX3,NAD,GCS15 SKIN: BLE warm with motor intact LLE post operative dressing I/C/D CARDIOVASCULAR: Regular rate and rhythm without murmurs, gallops, or rubs. RESPIRATORY: Breath sounds equal bilaterally. No accessory muscle use. MUSCULOSKELETAL: No cyanosis, or edema. Palpable L PT Laboratory Laboratory Tests Test 09/27/17 05:00 White Blood Count 14.9 Red Blood Count 2.63 Hemoglobin 7.3 Hematocrit 22.0 Mean Corpuscular Volume 83.5 Mean Corpuscular Hemoglobin 27.6 Mean Corpuscular Hemoglobin Concent 33.0 Red Cell Distribution Width 17.7 Platelet Count 349 Mean Platelet Volume 8.4 Blood Urea Nitrogen 49 Creatinine 8.99 Random Glucose 183 Calcium Level 8.8 Sodium Level 135 Potassium Level 4.1 Chloride Level 95 Carbon Dioxide Level 30.7 Anion Gap 9 Estimat Glomerular Filtration Rate 7 Date/Time Source Procedure Growth Status 09/21/17 12:55 Blood Peripheral Aerobic Blood Culture - Final NO GROWTH IN 5 DAYS Complete 09/21/17 12:55 Blood Peripheral Anaerobic Blood Culture - Final NO GROWTH IN 5 DAYS Complete 09/25/17 00:35 Stool Stool Stool Occult Blood (DARIUS) - Final HEMOCCULT NEGATIVE Complete 09/26/17 06:31 Wound Toe Fungal Smear - Final NO FUNGAL ELEMENTS SEEN. Resulted 09/26/17 06:31 Wound Toe Fungal Culture Pending Resulted Assessment and Plan Assessment: (1) PAD (peripheral artery disease) Plan 57/M s/p LLE tibial endovascular revascularization POD 3- doing well, pain controlled Pt with adequate reperfusion - palpable L PT LE warm w/ motor intact Plan Continue PT/OOB/ambulation Continue aggressive wound care Will continue to follow Alba GOMEZ [facility] [phone] Alba Allen Sep 27, 2017 14:27
--- NOTE | 2017-09-27 17:32 | HHI.NPPN ---
Subjective History of Present Illness 57-year-old male with past medical history of hypertension, diabetes mellitus, chronic obstructive pulmonary disease, peripheral vascular disease, chronic anemia, end-stage renal disease on hemodialysis who came to the hospital with complaint of pain in the right foot. I was called to see the patient for management of dialysis. The patient has been on hemodialysis Sunday, Sunday and Sunday. Additional Remarks Patient is alert, foot pain is better, no SOB. Objective Data Data Vital Signs Date Time Temp Pulse Resp B/P (MAP) Pulse Ox O2 Delivery O2 Flow Rate FiO2 09/27/17 15:45 98.0 77 18 125/51 (75) 96 09/27/17 13:50 100 09/27/17 11:44 97.7 75 18 133/55 (81) 100 09/27/17 08:45 97.5 76 18 138/65 (89) 97 09/27/17 08:45 97 Room Air 09/27/17 06:05 20 09/27/17 06:00 71 09/27/17 05:00 70 09/27/17 04:00 70 09/27/17 04:00 98.6 72 18 109/49 (69) 100 09/27/17 04:00 70 09/27/17 04:00 Room Air 09/27/17 03:00 74 09/27/17 02:00 72 09/27/17 01:22 20 09/27/17 01:00 76 09/27/17 00:00 74 09/27/17 00:00 Room Air 09/27/17 00:00 99.2 69 18 109/52 (71) 94 09/26/17 23:00 74 09/26/17 22:00 82 09/26/17 21:00 74 09/26/17 20:00 99.5 83 18 130/55 (80) 100 09/26/17 20:00 Room Air 09/26/17 20:00 87 09/26/17 19:00 98 -: 09/27/17 0500 09/27/17 0500 Physical Exam General Appearance: No Acute Distress, Comfortable Neck Neck Exam: Neck Supple Pulmonary Resp Exam: Clear Bilaterally, Breath Sounds Equal Cardiology CV Exam: Regular Gastrointestinal/Abdomen GI Exam: Soft, Non-Tender, Bowel Sounds Present Extremeties Extremities Exam: Trace Edema (left foot dressed) Neurologic Neuro Exam: Alert, Awake, Oriented Psychiatric Psych Exam: Appropriate Responses Assessment/Plan Problem List: (1) ESRD (end stage renal disease) ICD Codes: N18.6 - End-stage renal disease Status: Acute (2) DM (diabetes mellitus) ICD Codes: E11.9 - Type 2 diabetes mellitus without complications Status: Chronic Plan: monitor BG (3) PAD (peripheral artery disease) ICD Codes: I73.9 - Peripheral vascular disease, unspecified Status: Chronic Plan: Vascular surgery following Plan Patient has HD done yesterday. Post angiogram and plasty done 09/24. Hgb. dropped, on Epogen, will follow. BP is stable. On Vanco. with HD and Zosyn. Has more pain, on Dilaudid IV, and Percocet in between. HD again in AM. Follow Hgb., possibly will need debridement. Joshua Perry MD Sep 27, 2017 17:32
--- NOTE | 2017-09-27 20:55 | HHI.PR ---
Subjective Remarks Patient seen bedside POD #1. Patient states his foot is sore. He states he will quit smoking and he would like to avoid further proximal amputation. Objective Vital Signs Date Time Temp Pulse Resp B/P (MAP) Pulse Ox O2 Delivery O2 Flow Rate FiO2 09/27/17 18:00 82 09/27/17 17:01 76 09/27/17 16:00 76 09/27/17 15:45 98.0 77 18 125/51 (75) 96 09/27/17 15:00 76 09/27/17 14:00 86 09/27/17 13:50 100 09/27/17 13:00 78 09/27/17 12:00 78 09/27/17 11:44 97.7 75 18 133/55 (81) 100 09/27/17 11:00 76 09/27/17 10:00 64 09/27/17 09:00 72 09/27/17 08:45 97.5 76 18 138/65 (89) 97 09/27/17 08:45 97 Room Air 09/27/17 08:00 72 09/27/17 07:00 72 09/27/17 06:05 20 09/27/17 06:00 71 09/27/17 05:00 70 09/27/17 04:00 70 09/27/17 04:00 98.6 72 18 109/49 (69) 100 09/27/17 04:00 70 09/27/17 04:00 Room Air 09/27/17 03:00 74 09/27/17 02:00 72 09/27/17 01:22 20 09/27/17 01:00 76 09/27/17 00:00 74 09/27/17 00:00 Room Air 09/27/17 00:00 99.2 69 18 109/52 (71) 94 09/26/17 23:00 74 09/26/17 22:00 82 09/26/17 21:00 74 I/O 09/26/17 09/26/17 09/26/17 09/27/17 09/27/17 09/27/17 07:00 15:00 23:00 07:00 15:00 23:00 Intake Total 300 ml 480 ml 290 ml 900 ml Output Total 100 ml 1000 ml 600 ml Balance 200 ml -520 ml 290 ml 300 ml Intake Oral 480 ml 240 ml 900 ml IV Total 50 ml Other 300 ml Output Urine Total 600 ml Hemodialysis 1000 ml Estimated Blood Loss 100 ml # Voids 1 1 2 # Bowel Movements 1 1 1 1 Result Diagram: 09/27/17 0500 09/27/17 0500 Objective Remarks Lower Extremity Physical Exam: Vasc: PT palpable to left LE. DP non palpable. Mild edema noted Neuro: No hyperalgesia noted. Derm: Incision to dorsal foot with skin well coapted and PHYSICIAN RELATIONS REPRESENTATIVE to flap intact. Sutures present and intact. No drainage noted to left foot upon compression. (- ) fluctuance crepitus noted. No eschar noted to left foot. MSK: Left foot transmetatarsal amputation. Ankle ROM wnl. Assessment and Plan Assessment and Plan 57 year old male with left foot gas gangrene s/p left second digit amputation by vascular s/p vascular intervention for reperfusion to PT artery Patient evaluated and treated with all questions answered Patient to OR tomorrow for debridement and irrigation with delayed primary closure. Discussed surgical intervention with patient Patient states he agrees with treatment plan NPO after midnight Alternatives, risks, complications, benefits discussed with patient Ada Judge DPM Sep 27, 2017 20:55
[2017-09-27] MEDS: INSULIN DETEMIR 100 UNITS/ML VIAL SQ SCH (21:00)
[2017-09-27] MEDS: HYDROmorphone HCL PF 1 MG/ML VIAL IV PUSH PRN (21:08)
[2017-09-28] VITALS (13 sets, daily range): BP systolic 105–158; BP diastolic 49–69; PULSE 71–85; RESP 16–18; TEMP 97.7–99; O2SAT 94–100
[2017-09-28] MEDS ORDERED: POVIDONE IODINE 5% (ANTISEPSIS KIT) 4 APPLICATIONS EACH NARE PRN (02:30)
[2017-09-28] MEDS ORDERED: LACTATED RINGER'S 1000 ML IV PRN (02:30)
[2017-09-28] MEDS ORDERED: CHLORHEXIDINE GLUCONATE 2 % 1 PACK (2 CLOTHS) TOPICAL PRN (02:30)
[2017-09-28] MEDS ORDERED: SODIUM CHLORID 0.9% 500 ML IV PRN (02:30)
[2017-09-28] MEDS: PIPERACIL-TAZO 2.25 GM PREMIX 50 ML IV SCH ×2 (02:59→15:26)
[2017-09-28] MEDS: HYDROmorphone HCL PF 1 MG/ML VIAL IV PUSH PRN ×3 (02:59→16:17)
[2017-09-28] MEDS: HEPARIN SODIUM - SQ 10,000 UNITS/ML VIAL SQ SCH ×3 (02:59→17:58)
[2017-09-28 06:58] LABS: HEMATOCRIT 22.9 % (39.0-51.0); MEAN CELL VOLUME 83.1 FL (80.0-100.0); MEAN CORPUSCULAR HEMOGLOBIN 26.8 PG (27.0-34.0); MEAN CORPUSCULAR HGB CONC 32.3 % (32.0-36.0); PLATELET COUNT 388 TH/MM3 (150-450); RED BLOOD COUNT 2.76 MIL/MM3 (4.50-5.90); REVIEW FLAG FINAL; WHITE BLOOD COUNT 12.9 TH/MM3 (4.0-11.0)
[2017-09-28 07:36] LABS: BICARBONATE 26.7 MEQ/L (21.0-32.0); POTASSIUM 3.9 MEQ/L (3.5-5.1)
[2017-09-28] MEDS: INSULIN ASPART SUPPLEMENTAL SCALE SQ SCH ×4 (08:00→21:00)
[2017-09-28] MEDS: oxyCODONE/ACETAMINOPHEN 5 MG/325 MG TAB PO PRN ×2 (08:16→13:46)
[2017-09-28] MEDS: INSULIN DETEMIR 100 UNITS/ML VIAL SQ SCH ×2 (08:17→21:00)
[2017-09-28] MEDS: DOCUSATE SODIUM 50 MG/SENNA 8.6 MG TAB PO SCH ×2 (08:18→21:00)
[2017-09-28] MEDS: ACETAMINOPHEN 325 MG TAB PO SCH ×2 (08:18→17:00)
[2017-09-28] MEDS: SODIUM CHLORIDE 0.9% FLUSH 10 ML FLUSH IV FLUSH SCH ×2 (08:18→23:24)
[2017-09-28] MEDS: GABAPENTIN 100 MG CAP PO SCH ×3 (08:18→17:57)
[2017-09-28] MEDS: EPOETIN ALFA 10,000 UNITS/ML VIAL IV PUSH PRN (10:16)
[2017-09-28] MEDS: GELATIN 12 MM/7 MM FOAM TOP PRN (10:19)
--- NOTE | 2017-09-28 11:55 | HHI.FPPN ---
Subjective Remarks Patient seen and examined this morning. Temperature 98.0, pulse 79, respiratory 18, blood pressure 158/67, pulse ox 97 on room air. He is currently finishing of dialysis. This afternoon he'll be going back to the OR for debridement. He is looking forward to having the procedure done soon so he can eat and drink again. He reports that his pain is tolerable but now that he had dialysis it is worsening again. (Harley Soni MD, R3) Objective Vitals Vital Signs Date Time Temp Pulse Resp B/P (MAP) Pulse Ox O2 Delivery O2 Flow Rate FiO2 09/28/17 08:30 98.0 79 18 158/67 (97) 94 09/28/17 08:30 97 Room Air 09/28/17 07:01 75 09/28/17 04:00 75 09/28/17 04:00 97.9 73 16 119/57 (77) 98 09/28/17 04:00 Room Air 09/28/17 00:00 77 09/28/17 00:00 98.1 79 16 111/49 (69) 98 09/27/17 20:00 98.4 83 16 130/71 (90) 100 09/27/17 20:00 94 09/27/17 20:00 Room Air 09/27/17 18:00 82 09/27/17 17:01 76 09/27/17 16:00 76 09/27/17 15:45 98.0 77 18 125/51 (75) 96 09/27/17 15:00 76 09/27/17 14:00 86 09/27/17 13:50 100 09/27/17 13:00 78 09/27/17 12:00 78 I/O 09/27/17 09/27/17 09/27/17 09/28/17 09/28/17 09/28/17 07:00 15:00 23:00 07:00 15:00 23:00 Intake Total 290 ml 900 ml 290 ml Output Total 600 ml 0 ml 1000 ml Balance 290 ml 300 ml 290 ml -1000 ml Intake Oral 240 ml 900 ml 240 ml IV Total 50 ml 50 ml Output Urine Total 600 ml 0 ml Hemodialysis 1000 ml # Voids 2 # Bowel Movements 1 1 1 (Harley Soni MD, R3) Result Diagram: 09/28/17 0530 09/28/17 0530 Imaging Last Impressions Foot X-Ray 09/26/17 0000 Signed Impressions: Service Date/Time: Tuesday, September 26, 2017 08:10 - CONCLUSION: Amputation of metatarsals. Emmanuel Azul MD Objective Remarks GENERAL: Sitting up at the edge of the bed in no apparent distress eating his breakfast. SKIN: Right great toe scab wound healing. Left foot is wrapped in a bandage is clean dry and intact. HEENT: Normocephalic, no nasal discharge, no scleral icterus or injection CARDIOVASCULAR: Regular rate without murmurs, gallops, or rubs. Left forearm AV fistula positive thrill and bruit. RESPIRATORY: Clear to auscultation. Breath sounds equal bilaterally. No wheezes , rales, or rhonchi. GASTROINTESTINAL: Abdomen soft, non-tender, nondistended, normal bowel sounds MUSCULOSKELETAL: Palpable but weak dorsalis pedis and posterior tibial pulses. No edema. NEUROLOGICAL: Awake and alert. Procedures 09/24/17: 1. Aortogram with left lower extremity angiograms 2. Left posterior tibial artery angioplasty with 3 mm balloon 3. Right common femoral artery Angio-Seal 09/26/17: Left foot transmetatarsal amputation, with findings of gas gangrene infection Medications and IVs Current Medications Medications (Trade) Dose Ordered Sig/April Route Start Time Stop Time Status Last Admin (NS Flush) 2 ml UNSCH PRN IV FLUSH 09/21/17 12:00 (NS Flush) 2 ml BID IV FLUSH 09/21/17 21:00 09/28/17 08:18 (Zofran Inj) 4 mg Q6H PRN IVP 09/21/17 12:00 (Milk Of Magnesia Liq) 30 ml Q12H PRN PO 09/21/17 12:00 (Senokot) 17.2 mg Q12H PRN PO 09/21/17 12:00 (Dulcolax Supp) 10 mg DAILY PRN RECTAL 09/21/17 12:00 (Lactulose Liq) 30 ml DAILY PRN PO 09/21/17 12:00 (D50w (Vial) Inj) 50 ml UNSCH PRN IV PUSH 09/21/17 12:30 (Glucagon Inj) 1 mg UNSCH PRN OTHER 09/21/17 12:30 Sodium Chloride 1,000 ml @ 0 mls/hr Q0M PRN OTHER 09/21/17 13:35 (Heparin Inj) 8,000 units UNSCH PRN IV FLUSH 09/21/17 13:45 Sodium Chloride 1,000 ml @ 200 mls/hr Q5H PRN IV 09/21/17 13:35 09/28/17 10:16 Sodium Chloride 1,000 ml @ 0 mls/hr Q0M PRN OTHER 09/21/17 13:35 (Mannitol Inj) 12.5 gm UNSCH PRN IV 09/21/17 13:45 Albumin Human 100 ml @ 60 mls/hr UNSCH PRN IV 09/21/17 13:45 (NS Flush) 5 ml UNSCH PRN IV FLUSH 09/21/17 13:45 (Heparin Inj) UNSCH PRN .XX 09/21/17 13:45 (Gentamicin (Dialysis) Inj) 20 mg UNSCH PRN OTHER 09/21/17 13:45 (Zofran Inj) 4 mg UNSCH PRN IV PUSH 09/21/17 13:45 (Benadryl) 25 mg UNSCH PRN PO 09/21/17 13:45 09/24/17 03:29 (Nitrostat Sl) 0.4 mg UNSCH PRN SL 09/21/17 13:45 (Catapres) 0.1 mg UNSCH PRN PO 09/21/17 13:45 (Epogen Inj) 6,000 units UNSCH PRN IV PUSH 09/21/17 13:45 09/28/17 10:16 (Gelfoam 12 Mm/7 Mm Top) 1 foam UNSCH PRN TOP 09/21/17 13:45 09/28/17 10:19 Piperacillin Sod/ Tazobactam Sod 50 ml @ 100 mls/hr Q12H IV 09/21/17 15:00 09/28/17 02:59 (Narcan Inj) 0.4 mg UNSCH PRN IV PUSH 09/21/17 19:00 (Neurontin) 100 mg TID PO 09/22/17 09:00 09/28/17 08:18 (Tylenol) 650 mg Q8H PO 09/22/17 09:00 09/28/17 08:18 (Dilaudid Pf Inj) 0.5 mg Q3H PRN IV PUSH 09/22/17 08:45 09/25/17 04:13 (Dilaudid Pf Inj) 1 mg Q3H PRN IV PUSH 09/22/17 08:45 09/26/17 15:56 (Dilaudid Pf Inj) 1 mg Q3H PRN IV PUSH 09/22/17 08:45 09/28/17 02:59 (Thorazine) 25 mg Q6H PRN PO 09/22/17 17:15 09/22/17 17:45 (Thorazine Inj) 25 mg Q8H PRN IM 09/22/17 17:15 (Heparin Inj) 5,000 units Q8H SQ 09/23/17 10:00 09/28/17 02:59 (Odette-Colace) 1 tab BID PO 09/23/17 09:45 09/27/17 09:33 Pharmacy Profile Note 0 ml @ 0 mls/hr UNSCH OTHER 09/23/17 10:30 (Duoneb Neb) 1 ampule Q4HR NEB PRN NEB 09/23/17 10:30 (Percocet 5-325 Mg) 1 tab Q6H PRN PO 09/25/17 15:30 09/28/17 08:16 (Levemir Inj) 7.5 units Q12HR SQ 09/27/17 21:00 09/28/17 08:17 (NovoLOG SUPPLEMENTAL SCALE) 1 ACHS SLIDING SCALE SQ 09/27/17 12:00 09/27/17 21:00 Lactated Ringer's 1,000 ml @ 30 mls/hr Q24H PRN IV 09/28/17 02:30 10/01/17 02:29 Sodium Chloride 500 ml @ 30 mls/hr [id number] PRN IV 09/28/17 02:30 10/01/17 02:29 (Betadine 5% Antisepsis Kit) 1 applic APPLICATIONS SYSTEM ANALYST PRN EACH NARE 09/28/17 02:30 10/01/17 02:29 (Chlorhexidine 2% Cloth) 3 pack APPLICATIONS SYSTEM ANALYST PRN TOPICAL 09/28/17 02:30 10/01/17 02:29 Vancomycin HCl 750 mg/Sodium Chloride 257.5 ml @ 250 mls/hr WITH DIALYSIS IV 09/28/17 12:00 (Harley Soni MD, R3) A/P Assessment and Plan 57-year-old male with medical history of end-stage renal disease on hemodialysis MWF, COPD, Type 1 DM that is uncontrolled, and peripheral vascular disease, who presents with left foot infection. Status post left posterior tibial artery angioplasty with 3 mm balloon. Discharge Planning Discharge pending further recommendations from vascular surgery, podiatry, and infectious disease (Harley Soni MD, R3) Attending Attestation Case discussed in detail with Dr Soni of [facility],patient seen, examined and agree with examination,agree with contents of this note see orders (Nabor Duarte MD) Problem List: (1) Gas gangrene of foot ICD Codes: A48.0 - Gas gangrene Status: Acute Plan: History of amputation of the left second toe, now with infected gangrenous foot draining purulent fluid. Has history of uncontrolled type 1 diabetes with peripheral neuropathy as well as peripheral vascular disease. Previous cultures for the foot grew staph aureus and enterococcus faecalis sensitive to daptomycin, Zyvox, and vancomycin. Patient afebrile with mild leukocytosis. X-ray findings consistent with gas gangrene. Amputation performed, and findings prior and during the amputation consistent with gas gangrene. - Follow blood and wound cultures - Vancomycin and Zosyn started 09/21/17 - Consulted vascular surgery Dr. Ortiz, appreciate recommendations - Infectious disease consulted, recommendations appreciated - Podiatry consulted, recommendations appreciated - Pain management with gabapentin for neuropathic etiology, Dilaudid due to ESRD , and Tylenol scheduled. - Status post left posterior tibial artery angioplasty with 3 mm balloon - Status post left foot transmetatarsal amputation. - Plan for or today for further debridement and irrigation of the left foot with delayed primary closure - Recently quit smoking, encourage continued abstinence from tobacco use. - Encourage better control of diabetes and closer follow up with PCP. (2) Diabetes type 1, uncontrolled ICD Codes: E10.65 - Type 1 diabetes mellitus with hyperglycemia Status: Chronic Plan: Type 1 diabetes that is poorly controlled. A1C is 11.5. Blood glucoses here have been relatively well controlled. Ranging between 276-473 - Increase Levemir from 5 units twice a day to 7.5 units twice a day - Sliding scale insulin. - Order coding educator for poorly controlled diabetes. (3) End stage renal disease ICD Codes: N18.6 - End-stage renal disease Status: Chronic Plan: End-stage renal disease on hemodialysis - Consult nephrology for continuation of hemodialysis while inpatient - Left AV fistula with positive thrill and bruit - Renal diet - Avoid nephrotoxic agents as much as possible, monitor vancomycin levels, vancomycin pharmacy consult (4) COPD (chronic obstructive pulmonary disease) ICD Codes: J44.9 - Chronic obstructive pulmonary disease, unspecified Status: Chronic Plan: COPD, not in exacerbation - DuoNebs PRN (5) No contraindication to deep vein thrombosis (DVT) prophylaxis ICD Codes: Z78.9 - Other specified health status Status: Acute Plan: - Heparin 5000 units tid (6) Nutrition, metabolism, and development symptoms ICD Codes: R63.8 - Other symptoms and signs concerning food and fluid intake Status: Acute Plan: ESRD, monitor electrolytes Renal diet (Harley Soni MD, R3) Harley Soni MD, R3 Sep 28, 2017 11:55 Nabor Duarte MD Sep 28, 2017 16:12
[2017-09-28] MEDS ORDERED: VANCOMYCIN INJ 750 MG in SODIUM CHLOR 0.9% 250 ML INJ 250 ML IV SCH (12:00)
--- NOTE | 2017-09-28 15:42 | HHI.NPPN ---
Subjective History of Present Illness 57-year-old male with past medical history of hypertension, diabetes mellitus, chronic obstructive pulmonary disease, peripheral vascular disease, chronic anemia, end-stage renal disease on hemodialysis who came to the hospital with complaint of pain in the right foot. I was called to see the patient for management of dialysis. The patient has been on hemodialysis Sunday, Sunday and Sunday. Additional Remarks Patient is alert, foot pain is better, now he is NPO for the procedure. Objective Data Data 09/28/17 09/29/17 19:00 07:00 Output Total 1000 ml Balance -1000 ml Hemodialysis 1000 ml Vital Signs Date Time Temp Pulse Resp B/P (MAP) Pulse Ox O2 Delivery O2 Flow Rate FiO2 09/28/17 14:34 100 09/28/17 13:01 78 09/28/17 12:01 97.7 79 18 143/57 (85) 100 09/28/17 12:00 80 09/28/17 08:30 98.0 79 18 158/67 (97) 94 09/28/17 08:30 97 Room Air 09/28/17 08:00 78 09/28/17 07:01 75 09/28/17 04:00 75 09/28/17 04:00 97.9 73 16 119/57 (77) 98 09/28/17 04:00 Room Air 09/28/17 00:00 77 09/28/17 00:00 98.1 79 16 111/49 (69) 98 09/27/17 20:00 98.4 83 16 130/71 (90) 100 09/27/17 20:00 94 09/27/17 20:00 Room Air 09/27/17 18:00 82 09/27/17 17:01 76 09/27/17 16:00 76 09/27/17 15:45 98.0 77 18 125/51 (75) 96 -: 09/28/17 0530 09/28/17 0530 Physical Exam General Appearance: No Acute Distress, Comfortable Neck Neck Exam: Neck Supple Pulmonary Resp Exam: Clear Bilaterally, Breath Sounds Equal Cardiology CV Exam: Regular Gastrointestinal/Abdomen GI Exam: Soft, Non-Tender, Bowel Sounds Present Extremeties Extremities Exam: Trace Edema (left foot dressed) Neurologic Neuro Exam: Alert, Awake, Oriented Psychiatric Psych Exam: Appropriate Responses Assessment/Plan Problem List: (1) ESRD (end stage renal disease) ICD Codes: N18.6 - End-stage renal disease Status: Acute (2) DM (diabetes mellitus) ICD Codes: E11.9 - Type 2 diabetes mellitus without complications Status: Chronic Plan: monitor BG (3) PAD (peripheral artery disease) ICD Codes: I73.9 - Peripheral vascular disease, unspecified Status: Chronic Plan: Vascular surgery following Plan Patient has HD done yesterday. Post angiogram and plasty done 09/24. Hgb. dropped, on Epogen, will follow. BP is stable. On Vanco. with HD and Zosyn. Has more pain, on Dilaudid IV, and Percocet in between. HD done in AM and 1 liter removed. Follow Hgb.,low but stable, on Epogen. For debridement. Joshua Perry MD Sep 28, 2017 15:42
[2017-09-28] MEDS ORDERED: BUPIVACAINE HCL PF 0.25% 30 ML VIAL ONE (16:47)
--- NOTE | 2017-09-28 17:31 | HHI.PR ---
Subjective Remarks Patient seen preop. Is in good spirts. No new concerns. Objective Vital Signs Date Time Temp Pulse Resp B/P (MAP) Pulse Ox O2 Delivery O2 Flow Rate FiO2 09/28/17 15:01 98.8 85 18 157/69 (98) 97 09/28/17 14:34 100 09/28/17 13:01 78 09/28/17 12:01 97.7 79 18 143/57 (85) 100 09/28/17 12:00 80 09/28/17 08:30 98.0 79 18 158/67 (97) 94 09/28/17 08:30 97 Room Air 09/28/17 08:00 78 09/28/17 07:01 75 09/28/17 04:00 75 09/28/17 04:00 97.9 73 16 119/57 (77) 98 09/28/17 04:00 Room Air 09/28/17 00:00 77 09/28/17 00:00 98.1 79 16 111/49 (69) 98 09/27/17 20:00 98.4 83 16 130/71 (90) 100 09/27/17 20:00 94 09/27/17 20:00 Room Air 09/27/17 18:00 82 I/O 09/27/17 09/27/17 09/27/17 09/28/17 09/28/17 09/28/17 07:00 15:00 23:00 07:00 15:00 23:00 Intake Total 290 ml 900 ml 290 ml Output Total 600 ml 0 ml 1000 ml Balance 290 ml 300 ml 290 ml -1000 ml Intake Oral 240 ml 900 ml 240 ml IV Total 50 ml 50 ml Output Urine Total 600 ml 0 ml Hemodialysis 1000 ml # Voids 2 # Bowel Movements 1 1 1 Result Diagram: 09/28/17 0530 09/28/17 0530 Imaging Last 72 hours Impressions Foot X-Ray 09/26/17 0000 Signed Impressions: Service Date/Time: Tuesday, September 26, 2017 08:10 - CONCLUSION: Amputation of metatarsals. Emmanuel Azul MD Procedures Left foot TMA 09/26 Other Results Laboratory Tests Test 09/28/17 05:30 White Blood Count 12.9 TH/MM3 (4.0-11.0) Red Blood Count 2.76 MIL/MM3 (4.50-5.90) Hemoglobin 7.4 GM/DL (13.0-17.0) Hematocrit 22.9 % (39.0-51.0) Mean Corpuscular Volume 83.1 FL (80.0-100.0) Mean Corpuscular Hemoglobin 26.8 PG (27.0-34.0) Mean Corpuscular Hemoglobin Concent 32.3 % (32.0-36.0) Red Cell Distribution Width 18.0 % (11.6-17.2) Platelet Count 388 TH/MM3 (150-450) Mean Platelet Volume 8.4 FL (7.0-11.0) Blood Urea Nitrogen 62 MG/DL (7-18) Creatinine 10.62 MG/DL (0.60-1.30) Random Glucose 57 MG/DL (74-106) Calcium Level 9.0 MG/DL (8.5-10.1) Sodium Level 135 MEQ/L (136-145) Potassium Level 3.9 MEQ/L (3.5-5.1) Chloride Level 94 MEQ/L (98-107) Carbon Dioxide Level 26.7 MEQ/L (21.0-32.0) Anion Gap 14 MEQ/L (5-15) Estimat Glomerular Filtration Rate 6 ML/MIN (>89) Random Vancomycin Level 21.1 COMMENT Objective Remarks Lower Extremity Physical Exam: Vasc: PT palpable to left LE. DP non palpable. Mild edema noted Neuro: No hyperalgesia noted. Derm: Dressing to left foot intact with no strikethrough. No malodor noted. MSK: Left foot transmetatarsal amputation. Ankle ROM wnl. Assessment and Plan Assessment and Plan 57 year old male with left foot gas gangrene s/p left second digit amputation by vascular s/p vascular intervention for reperfusion to PT artery Patient evaluated and treated with all questions answered Patient to OR for debridement and irrigation with delayed primary closure. Consent signed, leg marked LLE Discussed surgical intervention with patient Patient states he agrees with treatment plan Ada Judge DPM Sep 28, 2017 17:31
[2017-09-28] MEDS ORDERED: VANCOMYCIN HCL 1000 MG VIAL ONE (18:07)
[2017-09-28] MEDS ORDERED: LIDOCAINE HCL 1% 20 ML VIAL INFIL ONE (18:20)
[2017-09-28] MEDS ORDERED: BUPIVACAINE HCL PF 0.5% 30 ML VIAL INFIL ONE (18:20)
--- NOTE | 2017-09-28 18:56 | HHI.PR ---
Immediate Post Op Note Procedure Date: Sep 28, 2017 Pre Op Diagnosis: (1) Gangrene (2) Gas gangrene Left foot gas gangrene s/p transmetatarsal amputation Post Op Diagnosis: same as pre op diagnosis Surgeon: Ada Judge Urogynecology Physician(s): None Procedure: Debridement and Irrigation with delayed primary closure of left foot transmetatarsal amputation Findings: None Additional Information: None Complications: None Specimen(s) removed: None Estimated blood loss: 10cc Anesthesia: General (with 1:1 mix of 0.5% Marcaine Plain and 1% Lidocaine plain ) Drains: Hemovac IVF Tourniquet time (min at mmHg) None Patient to: PACU Patient Condition: Good Date/Time of Procedure: SEE SURGICAL CARE RECORD Ada Judge DPM Sep 28, 2017 18:56
[2017-09-28] MEDS ORDERED: Post-op Orders (for Pharmacy) XX ONE (19:15)
[2017-09-28] MEDS ORDERED: DO NOT ADM ANY ANTICOAGULANT DRUGS PRN (20:30)
--- NOTE | 2017-09-28 20:58 | MR ---
cc: ROBIN GRISSOM DPM DATE 08/29/17 DATE OF 62 SURGEON Cesar Grissom DPM ORTHO ASSISTANT None. PREOPERATIVE DIAGNOSIS Left foot gas gangrene status post transmetatarsal amputation POSTOPERATIVE DIAGNOSIS Left foot gas gangrene status post transmetatarsal amputation PROCEDURE Debridement irrigation with delayed primary closure to left foot transmetatarsal amputation ANESTHESIA General to local infiltrate of 1:1 mixture of 5% Marcaine plain infiltrated about the left foot in Pat block fashion. HEMOSTASIS None. ESTIMATED BLOOD LOSS 10 mL MATERIALS 2-0 and 3-0 Prolene. 2-0 Vicryl. INJECTABLES None COMPLICATIONS None. INDICATION FOR PROCEDURE The patient is a 57 year old male who is status post left foot transmetatarsal amputation secondary to gas gangrene infection. The patient was taken for transmetatarsal amputation on 09/26. He was seen yesterday and amputation site is no longer draining purulent drainage and malodor has improved significantly. Flaps viable bedside. Decision was made to take patient for repeat debridement and irrigation with delayed primary closure to left foot. He is currently on antibiotics and growing enterococcus from left foot. The patient understands all alternatives, benefits, complications and risks associated with procedure. He would like to proceed with surgical intervention for limb salvage efforts. PROCEDURE IN DETAIL The patient was taken to the operating room and placed on the operating table in supine position. General anesthesia was induced. A well padded pneumatic ankle tourniquet was then placed about the left ankle. At this time, 1:1 mixture of 0.5% Marcaine plain and 1% Lidocaine plain was infiltrated about the left foot. The left foot was then prepped and draped in the usual sterile fashion. Attention was then directed to transmetatarsal amputation site. Prolene sutures were removed and flap was exposed. All necrotic non-viable tissue was debrided from flap and left foot and any remaining tendons were cut to retraction. There were no abscesses or no purulent drainage was noticed. The flap was then revised with 15 blade. Vancomycin powder was then applied to the wound. After copious irrigation with 3 liters of normal saline, flap was then closed with 2-0 3-0 nylon. All bleeders were cauterized as necessary. Prior to closure, a Hemovac was applied to left foot. Left foot was dressed with Adaptic, 4x4s, cast padding Prudencio. The patient tolerated the procedure and anesthesia well. He was transferred to post anesthesia care unit with vital signs stable and neurovascular status intact to plantar flap prior to dressing. He will remain in house until Infectious Disease recommendations are made for outpatient antibiotics. Drain will be pulled in 24-48 hours. Foot will be dressed and he is to follow up with me as an outpatient. YAKELIN Candelario/ /7:03 PM /8:39 PM
[2017-09-28] MEDS: AMPICILLIN-SULBACTAM INJ 1,500 MG in SODIUM CHLORIDE 0.9% INJ 100 ML IV SCH (23:25)
[2017-09-29] VITALS (24 sets, daily range): BP systolic 105–140; BP diastolic 55–70; PULSE 73–85; RESP 16–18; TEMP 98–99; O2SAT 97–100
[2017-09-29] MEDS: HEPARIN SODIUM - SQ 10,000 UNITS/ML VIAL SQ SCH ×3 (00:57→17:01)
[2017-09-29] MEDS: ACETAMINOPHEN 325 MG TAB PO SCH ×3 (00:58→16:59)
[2017-09-29] MEDS: oxyCODONE/ACETAMINOPHEN 5 MG/325 MG TAB PO PRN ×4 (00:58→18:42)
[2017-09-29] MEDS: diphenhydrAMINE HCL 25 MG CAP PO PRN (00:59)
[2017-09-29 06:56] LABS: HEMATOCRIT 22.4 % (39.0-51.0); MEAN CELL VOLUME 83.5 FL (80.0-100.0); MEAN CORPUSCULAR HEMOGLOBIN 26.3 PG (27.0-34.0); MEAN CORPUSCULAR HGB CONC 31.4 % (32.0-36.0); PLATELET COUNT 357 TH/MM3 (150-450); RED BLOOD COUNT 2.68 MIL/MM3 (4.50-5.90); RED CELL DISTRIBUTION WIDTH 17.8 % (11.6-17.2); REVIEW FLAG FINAL; WHITE BLOOD COUNT 11.9 TH/MM3 (4.0-11.0)
--- NOTE | 2017-09-29 07:09 | HHI.FPPN ---
Subjective Remarks Patient seen and examined this morning. Afebrile vital signs stable. He is doing well and resting this morning. Reports having some mild left foot pain. Understands the plan is for ID to evaluate and decide further antibiotic regimen. He also has a Hemovac drain in place that is to be removed in 24-48 hours from the amputation site. He reports that he does not want to go back to the previous long-term facility and wishes to go to a different one. He has no other complaints or issues at this time. Objective Vitals Vital Signs Date Time Temp Pulse Resp B/P (MAP) Pulse Ox O2 Delivery O2 Flow Rate FiO2 09/29/17 06:00 77 09/29/17 05:00 80 09/29/17 04:00 80 09/29/17 04:00 99.0 81 18 105/60 (75) 97 09/29/17 03:00 80 09/29/17 02:00 82 09/29/17 01:00 80 09/29/17 00:00 98.7 84 18 136/58 (84) 99 09/29/17 00:00 82 09/28/17 22:00 84 09/28/17 21:00 82 09/28/17 20:00 73 09/28/17 20:00 98.8 71 18 110/51 (70) 100 09/28/17 19:45 71 18 110/58 (75) 100 Nasal Cannula 2 09/28/17 19:30 71 18 108/54 (72) 100 Nasal Cannula 2 09/28/17 19:15 72 18 102/52 (69) 100 Nasal Cannula 2 09/28/17 19:00 100 Nasal Cannula 2.00 09/28/17 18:55 98.5 72 18 99/52 (68) 100 Nasal Cannula 2 09/28/17 15:01 98.8 85 18 157/69 (98) 97 09/28/17 14:34 100 09/28/17 13:01 78 09/28/17 12:01 97.7 79 18 143/57 (85) 100 09/28/17 12:00 80 09/28/17 08:30 98.0 79 18 158/67 (97) 94 09/28/17 08:30 97 Room Air 09/28/17 08:00 78 09/28/17 07:01 75 I/O 09/28/17 09/28/17 09/28/17 09/29/17 09/29/17 09/29/17 07:00 15:00 23:00 07:00 15:00 23:00 Intake Total 290 ml 540 ml 340 ml Output Total 0 ml 1000 ml 10 ml Balance 290 ml -1000 ml 530 ml 340 ml Intake Oral 240 ml 240 ml 240 ml IV Total 50 ml 100 ml Other 300 ml Output Urine Total 0 ml Hemodialysis 1000 ml Estimated Blood Loss 10 ml # Voids 0 1 # Bowel Movements 1 0 1 Result Diagram: 09/29/17 0545 09/28/17 0530 Imaging Last Impressions Foot X-Ray 09/26/17 0000 Signed Impressions: Service Date/Time: Tuesday, September 26, 2017 08:10 - CONCLUSION: Amputation of metatarsals. Emmanuel Azul MD Objective Remarks GENERAL: Sitting up at the edge of the bed in no apparent distress eating his breakfast. SKIN: Right great toe scab wound healing. Left foot is wrapped in a bandage is clean dry and intact. HEENT: Normocephalic, no nasal discharge, no scleral icterus or injection CARDIOVASCULAR: Regular rate without murmurs, gallops, or rubs. Left forearm AV fistula positive thrill and bruit. RESPIRATORY: Clear to auscultation. Breath sounds equal bilaterally. No wheezes , rales, or rhonchi. GASTROINTESTINAL: Abdomen soft, non-tender, nondistended, normal bowel sounds MUSCULOSKELETAL: Palpable but weak dorsalis pedis and posterior tibial pulses. No edema. NEUROLOGICAL: Awake and alert. Procedures 09/24/17: 1. Aortogram with left lower extremity angiograms 2. Left posterior tibial artery angioplasty with 3 mm balloon 3. Right common femoral artery Angio-Seal 09/26/17: Left foot transmetatarsal amputation, with findings of gas gangrene infection 09/28/17: Left foot debridement and irrigation with delayed primary closure of the transmetatarsal amputation Medications and IVs Current Medications Medications (Trade) Dose Ordered Sig/April Route Start Time Stop Time Status Last Admin (NS Flush) 2 ml UNSCH PRN IV FLUSH 09/21/17 12:00 (NS Flush) 2 ml BID IV FLUSH 09/21/17 21:00 09/28/17 23:24 (Zofran Inj) 4 mg Q6H PRN IVP 09/21/17 12:00 (Milk Of Magnesia Liq) 30 ml Q12H PRN PO 09/21/17 12:00 (Senokot) 17.2 mg Q12H PRN PO 09/21/17 12:00 (Dulcolax Supp) 10 mg DAILY PRN RECTAL 09/21/17 12:00 (Lactulose Liq) 30 ml DAILY PRN PO 09/21/17 12:00 (D50w (Vial) Inj) 50 ml UNSCH PRN IV PUSH 09/21/17 12:30 09/28/17 16:25 (Glucagon Inj) 1 mg UNSCH PRN OTHER 09/21/17 12:30 Sodium Chloride 1,000 ml @ 0 mls/hr Q0M PRN OTHER 09/21/17 13:35 (Heparin Inj) 8,000 units UNSCH PRN IV FLUSH 09/21/17 13:45 Sodium Chloride 1,000 ml @ 200 mls/hr Q5H PRN IV 09/21/17 13:35 09/28/17 10:16 Sodium Chloride 1,000 ml @ 0 mls/hr Q0M PRN OTHER 09/21/17 13:35 (Mannitol Inj) 12.5 gm UNSCH PRN IV 09/21/17 13:45 Albumin Human 100 ml @ 60 mls/hr UNSCH PRN IV 09/21/17 13:45 (NS Flush) 5 ml UNSCH PRN IV FLUSH 09/21/17 13:45 (Heparin Inj) UNSCH PRN .XX 09/21/17 13:45 (Gentamicin (Dialysis) Inj) 20 mg UNSCH PRN OTHER 09/21/17 13:45 (Zofran Inj) 4 mg UNSCH PRN IV PUSH 09/21/17 13:45 (Benadryl) 25 mg UNSCH PRN PO 09/21/17 13:45 09/29/17 00:59 (Nitrostat Sl) 0.4 mg UNSCH PRN SL 09/21/17 13:45 (Catapres) 0.1 mg UNSCH PRN PO 09/21/17 13:45 (Epogen Inj) 6,000 units UNSCH PRN IV PUSH 09/21/17 13:45 09/28/17 10:16 (Gelfoam 12 Mm/7 Mm Top) 1 foam UNSCH PRN TOP 09/21/17 13:45 09/28/17 10:19 (Narcan Inj) 0.4 mg UNSCH PRN IV PUSH 09/21/17 19:00 (Neurontin) 100 mg TID PO 09/22/17 09:00 09/28/17 13:00 (Tylenol) 650 mg Q8H PO 09/22/17 09:00 09/29/17 00:58 (Dilaudid Pf Inj) 0.5 mg Q3H PRN IV PUSH 09/22/17 08:45 09/28/17 16:17 (Dilaudid Pf Inj) 1 mg Q3H PRN IV PUSH 09/22/17 08:45 09/28/17 12:06 (Dilaudid Pf Inj) 1 mg Q3H PRN IV PUSH 09/22/17 08:45 09/28/17 02:59 (Thorazine) 25 mg Q6H PRN PO 09/22/17 17:15 09/22/17 17:45 (Thorazine Inj) 25 mg Q8H PRN IM 09/22/17 17:15 (Heparin Inj) 5,000 units Q8H SQ 09/23/17 10:00 09/29/17 00:57 (Odette-Colace) 1 tab BID PO 09/23/17 09:45 09/27/17 09:33 (Duoneb Neb) 1 ampule Q4HR NEB PRN NEB 09/23/17 10:30 (Percocet 5-325 Mg) 1 tab Q6H PRN PO 09/25/17 15:30 09/29/17 06:45 (Levemir Inj) 7.5 units Q12HR SQ 09/27/17 21:00 09/28/17 21:00 (NovoLOG SUPPLEMENTAL SCALE) 1 ACHS SLIDING SCALE SQ 09/27/17 12:00 09/28/17 21:00 Ampicillin Sodium/ Sulbactam Sodium 1500 mg/Sodium Chloride 100 ml @ 200 mls/hr Q12H IV 09/28/17 20:00 09/28/17 23:25 Miscellaneous Information ALL NURSING DEPARTME... UNSCH PRN .XX 09/28/17 20:30 09/29/17 20:29 A/P Assessment and Plan 57-year-old male with medical history of end-stage renal disease on hemodialysis MWF, COPD, Type 1 DM that is uncontrolled, and peripheral vascular disease, who presents with left foot infection. Status post left posterior tibial artery angioplasty with 3 mm balloon, left foot transmetatarsal amputation, debridement and irrigation of amputation. Discharge Planning Discharge pending further recommendations from vascular surgery, podiatry, and infectious disease Problem List: (1) Gas gangrene of foot ICD Codes: A48.0 - Gas gangrene Status: Acute Plan: Patient is status post transmetatarsal amputation of the left foot due to gas gangrene. - Follow blood and wound cultures: Enterococcus faecalis - Vancomycin and Zosyn started 09/21/17 - Consulted vascular surgery Dr. Ortiz, appreciate recommendations - Infectious disease consulted, recommendations appreciated - Podiatry consulted, recommendations appreciated - Pain management with gabapentin for neuropathic etiology, Dilaudid due to ESRD , and Tylenol scheduled. - Status post left posterior tibial artery angioplasty with 3 mm balloon - Status post left foot transmetatarsal amputation. - Status post debridement and irrigation with delayed primary closure of the left transmetatarsal amputation - Recently quit smoking, encourage continued abstinence from tobacco use. - Encourage better control of diabetes and closer follow up with PCP. (2) Diabetes type 1, uncontrolled ICD Codes: E10.65 - Type 1 diabetes mellitus with hyperglycemia Status: Chronic Plan: Type 1 diabetes that is poorly controlled. A1C is 11.5. Blood glucoses here have been relatively well controlled. Ranging between 276-473 - Continue Levemir from 5 units twice a day to 7.5 units twice a day - Sliding scale insulin. - Order retail area manager for poorly controlled diabetes. (3) End stage renal disease ICD Codes: N18.6 - End-stage renal disease Status: Chronic Plan: End-stage renal disease on hemodialysis - Consult nephrology for continuation of hemodialysis while inpatient - Left AV fistula with positive thrill and bruit - Renal diet - Avoid nephrotoxic agents as much as possible, monitor vancomycin levels, vancomycin pharmacy consult (4) COPD (chronic obstructive pulmonary disease) ICD Codes: J44.9 - Chronic obstructive pulmonary disease, unspecified Status: Chronic Plan: COPD, not in exacerbation - DuoNebs PRN (5) No contraindication to deep vein thrombosis (DVT) prophylaxis ICD Codes: Z78.9 - Other specified health status Status: Acute Plan: - Heparin 5000 units tid (6) Nutrition, metabolism, and development symptoms ICD Codes: R63.8 - Other symptoms and signs concerning food and fluid intake Status: Acute Plan: ESRD, monitor electrolytes Renal diet Harley Soni MD, R3 Sep 29, 2017 07:09
[2017-09-29 07:20] LABS: BICARBONATE 30.6 MEQ/L (21.0-32.0)
[2017-09-29] MEDS: INSULIN ASPART SUPPLEMENTAL SCALE SQ SCH ×4 (08:00→21:00)
[2017-09-29] MEDS: AMPICILLIN-SULBACTAM INJ 1,500 MG in SODIUM CHLORIDE 0.9% INJ 100 ML IV SCH ×2 (08:34→20:29)
[2017-09-29] MEDS: GABAPENTIN 100 MG CAP PO SCH ×3 (08:35→16:57)
[2017-09-29] MEDS: DOCUSATE SODIUM 50 MG/SENNA 8.6 MG TAB PO SCH ×2 (08:35→21:00)
[2017-09-29] MEDS: INSULIN DETEMIR 100 UNITS/ML VIAL SQ SCH ×2 (08:35→21:28)
[2017-09-29] MEDS: SODIUM CHLORIDE 0.9% FLUSH 10 ML FLUSH IV FLUSH SCH ×2 (08:35→21:28)
--- NOTE | 2017-09-29 11:17 | HHI.NPPN ---
Subjective History of Present Illness 57-year-old male with past medical history of hypertension, diabetes mellitus, chronic obstructive pulmonary disease, peripheral vascular disease, chronic anemia, end-stage renal disease on hemodialysis who came to the hospital with complaint of pain in the right foot. I was called to see the patient for management of dialysis. The patient has been on hemodialysis Sunday, Sunday and Sunday. Additional Remarks Patient is alert, no SOB, pain in the foot is much better. Objective Data Data 09/29/17 09/30/17 19:00 07:00 Intake Total 100 ml Balance 100 ml IV Total 100 ml Vital Signs Date Time Temp Pulse Resp B/P (MAP) Pulse Ox O2 Delivery O2 Flow Rate FiO2 09/29/17 10:13 81 09/29/17 09:34 16 09/29/17 09:00 83 09/29/17 08:30 78 09/29/17 08:30 100 Room Air 09/29/17 08:30 98.0 73 16 138/55 (82) 100 09/29/17 07:57 16 09/29/17 06:00 77 09/29/17 05:00 80 09/29/17 04:00 80 09/29/17 04:00 99.0 81 18 105/60 (75) 97 09/29/17 03:00 80 09/29/17 02:00 82 09/29/17 01:00 80 09/29/17 00:00 98.7 84 18 136/58 (84) 99 09/29/17 00:00 82 09/28/17 22:00 84 09/28/17 21:00 82 09/28/17 20:00 73 09/28/17 20:00 98.8 71 18 110/51 (70) 100 09/28/17 19:45 71 18 110/58 (75) 100 Nasal Cannula 2 09/28/17 19:30 71 18 108/54 (72) 100 Nasal Cannula 2 09/28/17 19:15 72 18 102/52 (69) 100 Nasal Cannula 2 09/28/17 19:00 100 Nasal Cannula 2.00 09/28/17 18:55 98.5 72 18 99/52 (68) 100 Nasal Cannula 2 09/28/17 15:01 98.8 85 18 157/69 (98) 97 09/28/17 14:34 100 09/28/17 13:01 78 09/28/17 12:01 97.7 79 18 143/57 (85) 100 09/28/17 12:00 80 -: 09/29/17 0545 09/29/17 0545 Physical Exam General Appearance: No Acute Distress, Comfortable Neck Neck Exam: Neck Supple Pulmonary Resp Exam: Clear Bilaterally, Breath Sounds Equal Cardiology CV Exam: Regular Gastrointestinal/Abdomen GI Exam: Soft, Non-Tender, Bowel Sounds Present Extremeties Extremities Exam: Trace Edema (left foot dressed) Neurologic Neuro Exam: Alert, Awake, Oriented Psychiatric Psych Exam: Appropriate Responses Assessment/Plan Problem List: (1) ESRD (end stage renal disease) ICD Codes: N18.6 - End-stage renal disease Status: Acute (2) DM (diabetes mellitus) ICD Codes: E11.9 - Type 2 diabetes mellitus without complications Status: Chronic Plan: monitor BG (3) PAD (peripheral artery disease) ICD Codes: I73.9 - Peripheral vascular disease, unspecified Status: Chronic Plan: Vascular surgery following Plan Patient has HD done yesterday. Post angiogram and plasty done 09/24. Has TMA done on 09/27. Hgb. dropped, on Epogen, will follow. BP is stable. On Vanco. with HD and Zosyn. Has more pain, on Dilaudid IV, add Percocet in between. HD done yesterday. Hgb. is 7.0, will follow. Joshua Perry MD Sep 29, 2017 11:17
[2017-09-29] MEDS: HYDROmorphone HCL PF 2 MG/ML VIAL IV PRN ×2 (17:11→20:26)
[2017-09-29] MEDS ORDERED: HYDROmorphone HCL PF 2 MG/ML VIAL IV PRN ×2 (17:15)
--- NOTE | 2017-09-29 22:46 | HHI.PR ---
Subjective Remarks Patient seen bedside this am .Reports no pain. Denies nausea vomiting fevers chills. States he is feeling better. Would like to go back to [facility]. Objective Vital Signs Date Time Temp Pulse Resp B/P (MAP) Pulse Ox O2 Delivery O2 Flow Rate FiO2 09/29/17 18:03 80 09/29/17 17:43 81 09/29/17 17:39 16 09/29/17 17:39 16 09/29/17 16:02 78 09/29/17 15:09 79 09/29/17 15:09 99 Room Air 09/29/17 15:09 98.2 78 16 132/70 (90) 99 09/29/17 14:09 80 09/29/17 13:47 16 09/29/17 13:02 79 09/29/17 12:28 77 09/29/17 11:34 78 09/29/17 11:34 98.2 77 16 128/60 (82) 100 09/29/17 11:34 100 Room Air 09/29/17 10:13 81 09/29/17 09:00 83 09/29/17 08:30 78 09/29/17 08:30 100 Room Air 09/29/17 08:30 98.0 73 16 138/55 (82) 100 09/29/17 06:00 77 09/29/17 05:00 80 09/29/17 04:00 80 09/29/17 04:00 99.0 81 18 105/60 (75) 97 09/29/17 03:00 80 09/29/17 02:00 82 09/29/17 01:00 80 09/29/17 00:00 98.7 84 18 136/58 (84) 99 09/29/17 00:00 82 I/O 09/28/17 09/28/17 09/28/17 09/29/17 09/29/17 09/29/17 07:00 15:00 23:00 07:00 15:00 23:00 Intake Total 290 ml 540 ml 340 ml 100 ml 600 ml Output Total 0 ml 1000 ml 10 ml 50 ml Balance 290 ml -1000 ml 530 ml 340 ml 100 ml 550 ml Intake Oral 240 ml 240 ml 240 ml 600 ml IV Total 50 ml 100 ml 100 ml Other 300 ml Output Urine Total 0 ml 50 ml Hemodialysis 1000 ml Estimated Blood Loss 10 ml # Voids 0 1 # Bowel Movements 1 0 1 1 Result Diagram: 09/29/17 0545 09/29/17 0545 Procedures Left foot TMA 09/26 Debridement and Irrigation with delayed primary closure 09/28 Other Results Laboratory Tests Test 09/28/17 05:30 09/29/17 05:45 White Blood Count 12.9 TH/MM3 11.9 TH/MM3 Red Blood Count 2.76 MIL/MM3 2.68 MIL/MM3 Hemoglobin 7.4 GM/DL 7.0 GM/DL Hematocrit 22.9 % 22.4 % Mean Corpuscular Volume 83.1 FL 83.5 FL Mean Corpuscular Hemoglobin 26.8 PG 26.3 PG Mean Corpuscular Hemoglobin Concent 32.3 % 31.4 % Red Cell Distribution Width 18.0 % 17.8 % Platelet Count 388 TH/MM3 357 TH/MM3 Mean Platelet Volume 8.4 FL 8.3 FL Blood Urea Nitrogen 62 MG/DL 41 MG/DL Creatinine 10.62 MG/DL 8.44 MG/DL Random Glucose 57 MG/DL 147 MG/DL Calcium Level 9.0 MG/DL 8.4 MG/DL Sodium Level 135 MEQ/L 137 MEQ/L Potassium Level 3.9 MEQ/L 4.0 MEQ/L Chloride Level 94 MEQ/L 97 MEQ/L Carbon Dioxide Level 26.7 MEQ/L 30.6 MEQ/L Anion Gap 14 MEQ/L 9 MEQ/L Estimat Glomerular Filtration Rate 6 ML/MIN 8 ML/MIN Random Vancomycin Level 21.1 COMMENT Objective Remarks Lower Extremity Physical Exam: Vasc: PT palpable to left LE. DP non palpable. Mild edema noted. WASH TUB MACHINE OPERATOR to distal stump WNL and under 3 seconds. Neuro: No hyperalgesia noted. Gross sensation intact. Derm: Incision to left foot well coapted with sutures present. No malodor noted. NO drainage noted upon compression. No clinical signs of infection. MSK: Left foot transmetatarsal amputation. Ankle ROM wnl. Medications and IVs Current Medications Medications (Trade) Dose Ordered Sig/April Route Start Time Stop Time Status Last Admin (NS Flush) 2 ml UNSCH PRN IV FLUSH 09/21/17 12:00 (NS Flush) 2 ml BID IV FLUSH 09/21/17 21:00 09/29/17 21:28 (Zofran Inj) 4 mg Q6H PRN IVP 09/21/17 12:00 (Milk Of Magnesia Liq) 30 ml Q12H PRN PO 09/21/17 12:00 (Senokot) 17.2 mg Q12H PRN PO 09/21/17 12:00 (Dulcolax Supp) 10 mg DAILY PRN RECTAL 09/21/17 12:00 (Lactulose Liq) 30 ml DAILY PRN PO 09/21/17 12:00 (D50w (Vial) Inj) 50 ml UNSCH PRN IV PUSH 09/21/17 12:30 09/28/17 16:25 (Glucagon Inj) 1 mg UNSCH PRN OTHER 09/21/17 12:30 Sodium Chloride 1,000 ml @ 0 mls/hr Q0M PRN OTHER 09/21/17 13:35 (Heparin Inj) 8,000 units UNSCH PRN IV FLUSH 09/21/17 13:45 Sodium Chloride 1,000 ml @ 200 mls/hr Q5H PRN IV 09/21/17 13:35 09/28/17 10:16 Sodium Chloride 1,000 ml @ 0 mls/hr Q0M PRN OTHER 09/21/17 13:35 (Mannitol Inj) 12.5 gm UNSCH PRN IV 09/21/17 13:45 Albumin Human 100 ml @ 60 mls/hr UNSCH PRN IV 09/21/17 13:45 (NS Flush) 5 ml UNSCH PRN IV FLUSH 09/21/17 13:45 (Heparin Inj) UNSCH PRN .XX 09/21/17 13:45 (Gentamicin (Dialysis) Inj) 20 mg UNSCH PRN OTHER 09/21/17 13:45 (Zofran Inj) 4 mg UNSCH PRN IV PUSH 09/21/17 13:45 (Benadryl) 25 mg UNSCH PRN PO 09/21/17 13:45 09/29/17 00:59 (Nitrostat Sl) 0.4 mg UNSCH PRN SL 09/21/17 13:45 (Catapres) 0.1 mg UNSCH PRN PO 09/21/17 13:45 (Epogen Inj) 6,000 units UNSCH PRN IV PUSH 09/21/17 13:45 09/28/17 10:16 (Gelfoam 12 Mm/7 Mm Top) 1 foam UNSCH PRN TOP 09/21/17 13:45 09/28/17 10:19 (Narcan Inj) 0.4 mg UNSCH PRN IV PUSH 09/21/17 19:00 (Neurontin) 100 mg TID PO 09/22/17 09:00 09/29/17 16:57 (Tylenol) 650 mg Q8H PO 09/22/17 09:00 09/29/17 16:59 (Thorazine) 25 mg Q6H PRN PO 09/22/17 17:15 09/22/17 17:45 (Thorazine Inj) 25 mg Q8H PRN IM 09/22/17 17:15 (Heparin Inj) 5,000 units Q8H SQ 09/23/17 10:00 09/29/17 17:01 (Odette-Colace) 1 tab BID PO 09/23/17 09:45 09/27/17 09:33 (Duoneb Neb) 1 ampule Q4HR NEB PRN NEB 09/23/17 10:30 (Percocet 5-325 Mg) 1 tab Q6H PRN PO 09/25/17 15:30 09/29/17 18:42 (Levemir Inj) 7.5 units Q12HR SQ 09/27/17 21:00 09/29/17 21:28 (NovoLOG SUPPLEMENTAL SCALE) 1 ACHS SLIDING SCALE SQ 09/27/17 12:00 09/29/17 16:59 Ampicillin Sodium/ Sulbactam Sodium 1500 mg/Sodium Chloride 100 ml @ 200 mls/hr Q12H IV 09/28/17 20:00 09/29/17 20:29 (Dilaudid Pf Inj) 1 mg Q3H PRN IV 09/29/17 17:15 09/29/17 20:26 (Dilaudid Pf Inj) 0.5 mg Q3H PRN IV 09/29/17 17:15 (Dilaudid Pf Inj) 1 mg Q3H PRN IV 09/29/17 17:15 Assessment and Plan Assessment and Plan 57 year old male s/p transmetatarsal amputation 2/2 gas gangrene with delayed primary closure and debridement and irrigation Patient evaluated and treated with all questions answered Dressing to left foot changed OK to DC per podiatry Dressing to remain clean, dry and intact. Do not remove dressing. Patient to follow up in office within 1 week of discharge Follow up in office with Dr. Ada Stoll [facility] recommendations on outpatient antibiotics Limited weight bearing to left foot with post op shoe, recommend heel weight bearing with walker assist Ada Judge DPM Sep 29, 2017 22:46
[2017-09-30] VITALS (26 sets, daily range): BP systolic 116–168; BP diastolic 56–83; PULSE 63–104; RESP 16–18; TEMP 98.4–98.7; O2SAT 94–100
[2017-09-30] MEDS: oxyCODONE/ACETAMINOPHEN 5 MG/325 MG TAB PO PRN ×4 (00:51→17:45)
[2017-09-30] MEDS: HEPARIN SODIUM - SQ 10,000 UNITS/ML VIAL SQ SCH ×3 (00:52→17:42)
[2017-09-30] MEDS: ACETAMINOPHEN 325 MG TAB PO SCH ×3 (00:54→17:41)
[2017-09-30] MEDS: HYDROmorphone HCL PF 2 MG/ML VIAL IV PRN ×3 (05:12→19:54)
[2017-09-30 06:07] LABS: MEAN CELL VOLUME 83.9 FL (80.0-100.0); MEAN CORPUSCULAR HEMOGLOBIN 27.6 PG (27.0-34.0); MEAN CORPUSCULAR HGB CONC 32.9 % (32.0-36.0); PLATELET COUNT 341 TH/MM3 (150-450); RED BLOOD COUNT 2.62 MIL/MM3 (4.50-5.90); REVIEW FLAG FINAL
[2017-09-30 06:30] LABS: BICARBONATE 29.8 MEQ/L (21.0-32.0); POTASSIUM 3.9 MEQ/L (3.5-5.1)
[2017-09-30] MEDS: GABAPENTIN 100 MG CAP PO SCH ×3 (07:45→17:41)
[2017-09-30] MEDS: SODIUM CHLORIDE 0.9% FLUSH 10 ML FLUSH IV FLUSH SCH ×2 (07:47→19:55)
[2017-09-30] MEDS: DOCUSATE SODIUM 50 MG/SENNA 8.6 MG TAB PO SCH ×2 (07:47→21:00)
[2017-09-30] MEDS: INSULIN DETEMIR 100 UNITS/ML VIAL SQ SCH ×2 (07:47→21:09)
[2017-09-30] MEDS: INSULIN ASPART SUPPLEMENTAL SCALE SQ SCH ×4 (07:47→21:00)
[2017-09-30] MEDS: AMPICILLIN-SULBACTAM INJ 1,500 MG in SODIUM CHLORIDE 0.9% INJ 100 ML IV SCH ×2 (07:52→19:59)
--- NOTE | 2017-09-30 09:04 | HHI.FPPN ---
Subjective Remarks Patient seen and examined this morning. Temperature 99, pulse 80, respiratory rate 18, blood pressure 155/83, pulse ox 96 on room air. He is sitting in the chair doing leg exercises. He is now willing to go back to [place] [facility]. His only concern is that he wants his antibiotics to be established prior to discharge which I agree with, we are awaiting infectious disease recommendations for outpatient antibiotics. Wound VAC has been removed from the amputation site and dressing is in place. Patient reports that his pain is not quite tolerable at this time and is hoping to get better pain control prior to discharge. Objective Vitals Vital Signs Date Time Temp Pulse Resp B/P (MAP) Pulse Ox O2 Delivery O2 Flow Rate FiO2 09/30/17 08:35 16 09/30/17 08:34 16 09/30/17 07:51 96 21 09/30/17 06:00 80 09/30/17 05:00 102 09/30/17 05:00 98 18 155/83 (107) 96 09/30/17 04:00 104 09/30/17 03:00 76 09/30/17 02:00 76 09/30/17 01:00 80 09/30/17 00:30 92 16 116/56 (76) 94 09/30/17 00:00 78 09/29/17 23:00 82 09/29/17 22:00 78 09/29/17 21:00 82 09/29/17 20:00 84 09/29/17 19:45 99.0 85 18 140/67 (91) 98 09/29/17 19:45 98 Room Air 09/29/17 19:00 83 09/29/17 18:03 80 09/29/17 17:43 81 09/29/17 17:39 16 09/29/17 16:02 78 09/29/17 15:09 79 09/29/17 15:09 99 Room Air 09/29/17 15:09 98.2 78 16 132/70 (90) 99 09/29/17 14:09 80 09/29/17 13:02 79 09/29/17 12:28 77 09/29/17 11:34 78 09/29/17 11:34 98.2 77 16 128/60 (82) 100 09/29/17 11:34 100 Room Air 12/16/17 10:13 81 09/29/17 09:00 83 I/O 09/29/17 09/29/17 09/29/17 09/30/17 09/30/17 09/30/17 07:00 15:00 23:00 07:00 15:00 23:00 Intake Total 340 ml 100 ml 600 ml 480 ml Output Total 50 ml 0 ml Balance 340 ml 100 ml 550 ml 480 ml Intake Oral 240 ml 600 ml 480 ml IV Total 100 ml 100 ml Output Urine Total 50 ml 0 ml # Voids 1 # Bowel Movements 1 1 0 Result Diagram: 09/30/17 0530 09/30/17 0530 Imaging Last Impressions Foot X-Ray 09/26/17 0000 Signed Impressions: Service Date/Time: Tuesday, September 26, 2017 08:10 - CONCLUSION: Amputation of metatarsals. Emmanuel Azul MD Objective Remarks GENERAL: Sitting up in the chair doing leg exercises. SKIN: Right great toe scab wound healing. Left foot is wrapped in a bandage is clean dry and intact. HEENT: Normocephalic, no nasal discharge, no scleral icterus or injection CARDIOVASCULAR: Regular rate without murmurs, gallops, or rubs. Left forearm AV fistula positive thrill and bruit. RESPIRATORY: Clear to auscultation. Breath sounds equal bilaterally. No wheezes , rales, or rhonchi. GASTROINTESTINAL: Abdomen soft, non-tender, nondistended, normal bowel sounds MUSCULOSKELETAL: Palpable but weak dorsalis pedis and posterior tibial pulses. No edema. NEUROLOGICAL: Awake and alert. Procedures 09/24/17: 1. Aortogram with left lower extremity angiograms 2. Left posterior tibial artery angioplasty with 3 mm balloon 3. Right common femoral artery Angio-Seal 09/26/17: Left foot transmetatarsal amputation, with findings of gas gangrene infection 09/28/17: Left foot debridement and irrigation with delayed primary closure of the transmetatarsal amputation Medications and IVs Current Medications Medications (Trade) Dose Ordered Sig/April Route Start Time Stop Time Status Last Admin (NS Flush) 2 ml UNSCH PRN IV FLUSH 09/21/17 12:00 (NS Flush) 2 ml BID IV FLUSH 09/21/17 21:00 09/30/17 07:47 (Zofran Inj) 4 mg Q6H PRN IVP 09/21/17 12:00 (Milk Of Magnesia Liq) 30 ml Q12H PRN PO 09/21/17 12:00 (Senokot) 17.2 mg Q12H PRN PO 09/21/17 12:00 (Dulcolax Supp) 10 mg DAILY PRN RECTAL 09/21/17 12:00 (Lactulose Liq) 30 ml DAILY PRN PO 09/21/17 12:00 (D50w (Vial) Inj) 50 ml UNSCH PRN IV PUSH 09/21/17 12:30 09/28/17 16:25 (Glucagon Inj) 1 mg UNSCH PRN OTHER 09/21/17 12:30 Sodium Chloride 1,000 ml @ 0 mls/hr Q0M PRN OTHER 09/21/17 13:35 (Heparin Inj) 8,000 units UNSCH PRN IV FLUSH 09/21/17 13:45 Sodium Chloride 1,000 ml @ 200 mls/hr Q5H PRN IV 09/21/17 13:35 09/28/17 10:16 Sodium Chloride 1,000 ml @ 0 mls/hr Q0M PRN OTHER 09/21/17 13:35 (Mannitol Inj) 12.5 gm UNSCH PRN IV 09/21/17 13:45 Albumin Human 100 ml @ 60 mls/hr UNSCH PRN IV 09/21/17 13:45 (NS Flush) 5 ml UNSCH PRN IV FLUSH 09/21/17 13:45 (Heparin Inj) UNSCH PRN .XX 09/21/17 13:45 (Gentamicin (Dialysis) Inj) 20 mg UNSCH PRN OTHER 09/21/17 13:45 (Zofran Inj) 4 mg UNSCH PRN IV PUSH 09/21/17 13:45 (Benadryl) 25 mg UNSCH PRN PO 09/21/17 13:45 09/29/17 00:59 (Nitrostat Sl) 0.4 mg UNSCH PRN SL 09/21/17 13:45 (Catapres) 0.1 mg UNSCH PRN PO 09/21/17 13:45 (Epogen Inj) 6,000 units UNSCH PRN IV PUSH 09/21/17 13:45 09/28/17 10:16 (Gelfoam 12 Mm/7 Mm Top) 1 foam UNSCH PRN TOP 09/21/17 13:45 09/28/17 10:19 (Narcan Inj) 0.4 mg UNSCH PRN IV PUSH 09/21/17 19:00 (Neurontin) 100 mg TID PO 09/22/17 09:00 09/30/17 07:45 (Tylenol) 650 mg Q8H PO 09/22/17 09:00 09/30/17 07:45 (Thorazine) 25 mg Q6H PRN PO 09/22/17 17:15 09/22/17 17:45 (Thorazine Inj) 25 mg Q8H PRN IM 09/22/17 17:15 (Heparin Inj) 5,000 units Q8H SQ 09/23/17 10:00 09/30/17 00:52 (Odette-Colace) 1 tab BID PO 09/23/17 09:45 09/27/17 09:33 (Duoneb Neb) 1 ampule Q4HR NEB PRN NEB 09/23/17 10:30 (Percocet 5-325 Mg) 1 tab Q6H PRN PO 09/25/17 15:30 09/30/17 07:46 (Levemir Inj) 7.5 units Q12HR SQ 09/27/17 21:00 09/29/17 21:28 (NovoLOG SUPPLEMENTAL SCALE) 1 ACHS SLIDING SCALE SQ 09/27/17 12:00 09/29/17 16:59 Ampicillin Sodium/ Sulbactam Sodium 1500 mg/Sodium Chloride 100 ml @ 200 mls/hr Q12H IV 09/28/17 20:00 09/30/17 07:52 (Dilaudid Pf Inj) 1 mg Q3H PRN IV 09/29/17 17:15 09/30/17 05:12 (Dilaudid Pf Inj) 0.5 mg Q3H PRN IV 09/29/17 17:15 (Dilaudid Pf Inj) 1 mg Q3H PRN IV 09/29/17 17:15 A/P Assessment and Plan 57-year-old male with medical history of end-stage renal disease on hemodialysis MWF, COPD, Type 1 DM that is uncontrolled, and peripheral vascular disease, who presents with left foot infection. Status post left posterior tibial artery angioplasty with 3 mm balloon, left foot transmetatarsal amputation, debridement and irrigation of amputation. Discharge Planning Discharge pending recommendations by infectious disease for outpatient antibiotics Problem List: (1) Gas gangrene of foot ICD Codes: A48.0 - Gas gangrene Status: Acute Plan: Patient is status post transmetatarsal amputation of the left foot due to gas gangrene. - Follow blood and wound cultures: Enterococcus faecalis - Vancomycin and Zosyn started 09/21/17 - Consulted vascular surgery Dr. Ortiz, appreciate recommendations - Infectious disease consulted, recommendations appreciated - Podiatry consulted, recommendations appreciated - Pain management with gabapentin for neuropathic etiology, Dilaudid due to ESRD , and Tylenol scheduled. - Status post left posterior tibial artery angioplasty with 3 mm balloon - Status post left foot transmetatarsal amputation. - Status post debridement and irrigation with delayed primary closure of the left transmetatarsal amputation - Recently quit smoking, encourage continued abstinence from tobacco use. Informed him of the importance of smoking cessation for healing - Encourage better control of diabetes and closer follow up with PCP. (2) Diabetes type 1, uncontrolled ICD Codes: E10.65 - Type 1 diabetes mellitus with hyperglycemia Status: Chronic Plan: Type 1 diabetes that is poorly controlled. A1C is 11.5. Blood glucoses here have been relatively well controlled. Ranging between 127-264 - Continue Levemir at 10 units twice a day - Sliding scale insulin. - Order clinical educator for poorly controlled diabetes. (3) End stage renal disease ICD Codes: N18.6 - End-stage renal disease Status: Chronic Plan: End-stage renal disease on hemodialysis - Consult nephrology for continuation of hemodialysis while inpatient - Left AV fistula with positive thrill and bruit - Renal diet - Avoid nephrotoxic agents as much as possible, monitor vancomycin levels, vancomycin pharmacy consult (4) COPD (chronic obstructive pulmonary disease) ICD Codes: J44.9 - Chronic obstructive pulmonary disease, unspecified Status: Chronic Plan: COPD, not in exacerbation - DuoNebs PRN (5) No contraindication to deep vein thrombosis (DVT) prophylaxis ICD Codes: Z78.9 - Other specified health status Status: Acute Plan: - Heparin 5000 units tid (6) Nutrition, metabolism, and development symptoms ICD Codes: R63.8 - Other symptoms and signs concerning food and fluid intake Status: Acute Plan: ESRD, monitor electrolytes Renal diet Harley Soni MD, R3 Sep 30, 2017 09:04
--- NOTE | 2017-09-30 10:29 | HHI.NPPN ---
Subjective History of Present Illness 57-year-old male with past medical history of hypertension, diabetes mellitus, chronic obstructive pulmonary disease, peripheral vascular disease, chronic anemia, end-stage renal disease on hemodialysis who came to the hospital with complaint of pain in the right foot. I was called to see the patient for management of dialysis. The patient has been on hemodialysis Sunday, Sunday and Sunday. Additional Remarks Patient is alert, no SOB, sitting on the chair, still has pain in the foot. Objective Data Data Vital Signs Date Time Temp Pulse Resp B/P (MAP) Pulse Ox O2 Delivery O2 Flow Rate FiO2 09/30/17 10:01 77 09/30/17 09:02 85 09/30/17 08:35 16 09/30/17 08:34 16 09/30/17 08:00 98 Room Air 09/30/17 08:00 98.4 92 16 168/77 (107) 98 09/30/17 08:00 96 09/30/17 07:51 96 21 09/30/17 06:00 80 09/30/17 05:00 102 09/30/17 05:00 98 18 155/83 (107) 96 09/30/17 04:00 104 09/30/17 03:00 76 09/30/17 02:00 76 09/30/17 01:00 80 09/30/17 00:30 92 16 116/56 (76) 94 09/30/17 00:00 78 09/29/17 23:00 82 09/29/17 22:00 78 09/29/17 21:00 82 09/29/17 20:00 84 09/29/17 19:45 99.0 85 18 140/67 (91) 98 09/29/17 19:45 98 Room Air 09/29/17 19:00 83 09/29/17 18:03 80 09/29/17 17:43 81 09/29/17 17:39 16 09/29/17 16:02 78 09/29/17 15:09 79 09/29/17 15:09 99 Room Air 09/29/17 15:09 98.2 78 16 132/70 (90) 99 09/29/17 14:09 80 09/29/17 13:02 79 09/29/17 12:28 77 09/29/17 11:34 78 09/29/17 11:34 98.2 77 16 128/60 (82) 100 09/29/17 11:34 100 Room Air -: 09/30/17 0530 09/30/17 0530 Physical Exam General Appearance: No Acute Distress, Comfortable Neck Neck Exam: Neck Supple Pulmonary Resp Exam: Clear Bilaterally, Breath Sounds Equal Cardiology CV Exam: Regular Gastrointestinal/Abdomen GI Exam: Soft, Non-Tender, Bowel Sounds Present Extremeties Extremities Exam: Trace Edema (left foot dressed) Neurologic Neuro Exam: Alert, Awake, Oriented Psychiatric Psych Exam: Appropriate Responses Assessment/Plan Problem List: (1) ESRD (end stage renal disease) ICD Codes: N18.6 - End-stage renal disease Status: Acute (2) DM (diabetes mellitus) ICD Codes: E11.9 - Type 2 diabetes mellitus without complications Status: Chronic Plan: monitor BG (3) PAD (peripheral artery disease) ICD Codes: I73.9 - Peripheral vascular disease, unspecified Status: Chronic Plan: Vascular surgery following Plan Patient has HD , on MWF. Post angiogram and plasty done 09/24. Has TMA done on 09/27. Hgb. dropped, on Epogen, will follow. BP is stable. On Vanco. with HD and Zosyn. Has more pain, on Dilaudid IV, and Percocet in between. HD will be in AM. Dr. Schultz will follow in AM. Joshua Perry MD Sep 30, 2017 10:29
[2017-09-30] MEDS: chlorproMAZINE HCL 25 MG TAB PO PRN (19:51)
[2017-10-01] VITALS (16 sets, daily range): BP systolic 109–136; BP diastolic 50–77; PULSE 77–92; RESP 18; TEMP 97.4–98.9; O2SAT 95–98
[2017-10-01] MEDS: HEPARIN SODIUM - SQ 10,000 UNITS/ML VIAL SQ SCH ×2 (00:47→10:52)
[2017-10-01] MEDS: ACETAMINOPHEN 325 MG TAB PO SCH ×3 (00:52→17:00)
[2017-10-01] MEDS: AMPICILLIN-SULBACTAM INJ 1,500 MG in SODIUM CHLORIDE 0.9% INJ 100 ML IV SCH (08:00)
[2017-10-01] MEDS: SODIUM CHLORIDE 0.9% FLUSH 10 ML FLUSH IV FLUSH SCH (09:00)
--- NOTE | 2017-10-01 10:25 | HHI.NPPN ---
Subjective Renal Failure: Chronic, End Stage Renal Disease Additional Remarks Sitting up in bed. States he fell earlier today. Due for dialysis today. (Jasmyne Bee) Objective Data Data Vital Signs Date Time Temp Pulse Resp B/P (MAP) Pulse Ox O2 Delivery O2 Flow Rate FiO2 10/01/17 09:00 82 10/01/17 08:00 88 10/01/17 07:00 84 10/01/17 07:00 Room Air 10/01/17 07:00 97.4 92 18 109/50 (69) 96 10/01/17 06:00 82 10/01/17 05:00 84 10/01/17 04:50 80 18 136/68 (90) 98 10/01/17 04:00 82 10/01/17 03:00 82 10/01/17 02:00 82 10/01/17 01:00 80 10/01/17 00:40 82 18 131/63 (85) 95 10/01/17 00:00 84 09/30/17 23:00 86 09/30/17 22:00 90 09/30/17 21:00 88 09/30/17 20:00 86 09/30/17 19:50 98.7 87 18 161/74 (103) 99 09/30/17 19:50 99 Room Air 09/30/17 19:07 16 09/30/17 19:07 16 09/30/17 19:00 91 09/30/17 18:02 89 09/30/17 17:13 81 09/30/17 16:20 78 09/30/17 15:34 79 09/30/17 15:34 98.5 78 16 148/62 (90) 100 09/30/17 14:20 77 09/30/17 13:18 77 09/30/17 12:03 65 09/30/17 11:17 98.5 77 16 134/64 (87) 98 09/30/17 11:17 63 09/30/17 10:43 16 (Jasmyne Bee) -: 09/30/17 0530 09/30/17 0530 Physical Exam General Appearance: Well Developed, No Acute Distress, Comfortable (Jasmyne Bee) Neck Neck Exam: Neck Supple (Jasmyne Bee) Pulmonary Resp Exam: Clear Bilaterally, Breath Sounds Equal, No Distress (Jasmyne Bee) Cardiology CV Exam: Regular, Normal Sinus Rhythm (Jasmyne Bee) Gastrointestinal/Abdomen GI Exam: Soft, Non-Tender, Bowel Sounds Present (Jasmyne Bee) Musculoskeletal MS Exam: Normal Tone MS Remarks left midfoot amputation (Jasmyne Bee) Integumentary Skin Exam: Warm, Dry (Jasmyne Bee) Extremeties Extremities Exam: No Edema, Pedal Pulses Palpable Extremeties Remarks right DP and PT (Jasmyne Bee) Neurologic Neuro Exam: Alert, Awake, Oriented, Speech Clear, Moving All Extremities (Jasmyne Bee) Psychiatric Psych Exam: Appropriate Responses (Jasmyne Bee) Assessment/Plan Discussed Condition With: Patient Assessment Summary: Anemia of CKD, Hypertension, Diabetes Mellitus, End Stage Renal Disease Problem List: (1) ESRD (end stage renal disease) ICD Codes: N18.6 - End-stage renal disease Status: Resolved Plan: Continue HD support MWF, he is due today High protein diet ordered; protein supplements added Avoid IVF He has functioning AV access for HD use Obtain intermittent renal panel while admitted, check phosphorus level in AM (2) PAD (peripheral artery disease) ICD Codes: I73.9 - Peripheral vascular disease, unspecified Status: Chronic Plan: Vascular surgery following S/P angiogram and angioplasty on 09/24. S/P midfoot amputation on 09/27. Continue pain control Wound vac has been removed. (3) DM (diabetes mellitus) ICD Codes: E11.9 - Type 2 diabetes mellitus without complications Status: Chronic Plan: He is a brittle Type I diabetic A1c elevated Continue insulin therapy and monitor BG, goal 140-180 mg/dL (4) Anemia ICD Codes: D64.9 - Anemia, unspecified Plan: Epogen dosage increased Transfuse if needed (Jasmyne Bee) Plan patient was seen and examined. Agree with above assessment and plan. (Maurice Schultz MD) Jasmyne Bee Oct 01, 2017 10:25 Maurice Schultz MD Oct 01, 2017 20:25
--- NOTE | 2017-10-01 10:46 | PD.VS.PN ---
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 Subjective/Hospital Course Afebrile 57/M POD 7- S/P LEFT lower extremity revascularization Pt w/o complaints Denied pain LE warm w/ motor intact Post operative LLE dressing I/C/D (Alba Allen TACTICAL RESPONSE GROUP OFFICER) Objective Vitals/I&O Date Time Temp Pulse Resp B/P (MAP) Pulse Ox O2 Delivery O2 Flow Rate FiO2 10/01/17 09:00 82 10/01/17 08:00 88 10/01/17 07:00 84 10/01/17 07:00 Room Air 10/01/17 07:00 97.4 92 18 109/50 (69) 96 10/01/17 06:00 82 10/01/17 05:00 84 10/01/17 04:50 80 18 136/68 (90) 98 10/01/17 04:00 82 10/01/17 03:00 82 10/01/17 02:00 82 10/01/17 01:00 80 10/01/17 00:40 82 18 131/63 (85) 95 10/01/17 00:00 84 09/30/17 23:00 86 09/30/17 22:00 90 09/30/17 21:00 88 09/30/17 20:00 86 09/30/17 19:50 98.7 87 18 161/74 (103) 99 09/30/17 19:50 99 Room Air 09/30/17 19:07 16 09/30/17 19:07 16 09/30/17 19:00 91 09/30/17 18:02 89 09/30/17 17:13 81 09/30/17 16:20 78 09/30/17 15:34 79 09/30/17 15:34 98.5 78 16 148/62 (90) 100 09/30/17 14:20 77 09/30/17 13:18 77 09/30/17 12:03 65 09/30/17 11:17 98.5 77 16 134/64 (87) 98 09/30/17 11:17 63 09/30/17 10:43 16 10/01/17 10/01/17 10/01/17 07:00 15:00 23:00 Intake Total 480 ml Output Total 75 ml Balance 405 ml Exam: GENERAL: A&OX3,NAD,GCS15 SKIN: BLE warm with motor intact LLE post operative dressing I/C/D MUSCULOSKELETAL: No cyanosis, or edema. Palpable L PT Laboratory Date/Time Source Procedure Growth Status 09/21/17 12:55 Blood Peripheral Aerobic Blood Culture - Final NO GROWTH IN 5 DAYS Complete 09/21/17 12:55 Blood Peripheral Anaerobic Blood Culture - Final NO GROWTH IN 5 DAYS Complete 09/25/17 00:35 Stool Stool Stool Occult Blood (DARIUS) - Final HEMOCCULT NEGATIVE Complete 09/26/17 06:31 Wound Toe Fungal Smear - Final NO FUNGAL ELEMENTS SEEN. Resulted 09/26/17 06:31 Wound Toe Fungal Culture Pending Resulted (Alba Allen) Assessment and Plan Assessment: (1) PAD (peripheral artery disease) Plan 57/M s/p LLE tibial endovascular revascularization POD 7- doing well, pain controlled Pt with adequate reperfusion - palpable L PT LE warm w/ motor intact Plan Pt clear for D/C from a Vascular stand point Continue PT/OOB/ambulation Continue aggressive wound care Arranged out pt f/u in 2W with a surveillance KINJAL Alba GOMEZ [facility] [phone] Discharge Planning Pt clear for D/C from a vascular stand point Arranged out pt f/u (Alba Allen) Plan Palpable PT. Appreciate podiatry assistance. Will schedule f/u in my clinic for revascularization surveillance (Randy Ortiz MD) Alba Allen Oct 01, 2017 10:46 Randy Ortiz MD Oct 01, 2017 12:46
[2017-10-01] MEDS: DOCUSATE SODIUM 50 MG/SENNA 8.6 MG TAB PO SCH (10:51)
[2017-10-01] MEDS: GABAPENTIN 100 MG CAP PO SCH ×2 (10:51→13:09)
[2017-10-01] MEDS: INSULIN DETEMIR 100 UNITS/ML VIAL SQ SCH (10:53)
[2017-10-01] MEDS: INSULIN ASPART SUPPLEMENTAL SCALE SQ SCH ×3 (10:53→17:00)
--- NOTE | 2017-10-01 11:48 | HHI.DCPOC ---
Discharge Care Plan Diagnosis: (1) Ischemic ulcer diabetic foot (2) ESRD on hemodialysis (3) Diabetes type 1, uncontrolled (4) Gas gangrene of foot Goals to Promote Your Health * To prevent worsening of your condition and complications * To maintain your health at the optimal level Directions to Meet Your Goals Take your medications as prescribed Follow your dietary instruction Follow activity as directed Keep your appointments as scheduled Take your immunizations and boosters as scheduled If your symptoms worsen call your PCP, if no PCP go to Urgent Care Center or Emergency Room Smoking is Dangerous to Your Health. Avoid second hand smoke Call the 24-hour hour crisis hotline for domestic abuse at Albin Guerra MD R3 Oct 01, 2017 11:48
[2017-10-01] MEDS ORDERED: EPOETIN ALFA 10,000 UNITS/ML VIAL IV PUSH PRN (14:00)
--- NOTE | 2017-10-01 14:39 | HHI.FPPN ---
Subjective Remarks Patient seen this morning. He is lying in bed, initially sleeping. No acute distress. Reports minimal foot pain, well controlled with pain medication. His foot is currently wrapped with a written instructions not to remove the wrap or dressing. The plan is for him to follow up with podiatry for his foot to be reevaluated. In addition, he is to follow up with vascular and nephrology. He is weight bearing to heel only and using a walker to get around. The plan is for him to go to [facility] at discharge and will get physical therapy and rehabilitation. He is also to follow up with his primary care, Dr. Gómez, in the [facility]. Vital signs are stable. (Albin Guerra MD R3) Objective Vitals Vital Signs Date Time Temp Pulse Resp B/P (MAP) Pulse Ox O2 Delivery O2 Flow Rate FiO2 10/01/17 12:00 79 10/01/17 11:00 98.9 78 18 128/77 (94) 97 10/01/17 11:00 79 10/01/17 10:00 77 10/01/17 09:00 82 10/01/17 08:00 88 10/01/17 07:00 84 10/01/17 07:00 Room Air 10/01/17 07:00 97.4 92 18 109/50 (69) 96 10/01/17 06:00 82 10/01/17 05:00 84 10/01/17 04:50 80 18 136/68 (90) 98 10/01/17 04:00 82 10/01/17 03:00 82 10/01/17 02:00 82 10/01/17 01:00 80 10/01/17 00:40 82 18 131/63 (85) 95 10/01/17 00:00 84 09/30/17 23:00 86 09/30/17 22:00 90 09/30/17 21:00 88 09/30/17 20:00 86 09/30/17 19:50 98.7 87 18 161/74 (103) 99 09/30/17 19:50 99 Room Air 09/30/17 19:07 16 09/30/17 19:07 16 09/30/17 19:00 91 09/30/17 18:02 89 09/30/17 17:13 81 09/30/17 16:20 78 09/30/17 15:34 79 09/30/17 15:34 98.5 78 16 148/62 (90) 100 I/O 09/30/17 09/30/17 09/30/17 10/01/17 10/01/17 10/01/17 07:00 15:00 23:00 07:00 15:00 23:00 Intake Total 480 ml 100 ml 580 ml 480 ml Output Total 0 ml 100 ml 75 ml Balance 480 ml 100 ml 480 ml 405 ml Intake Oral 480 ml 480 ml 480 ml IV Total 100 ml 100 ml Output Urine Total 0 ml 100 ml 75 ml # Bowel Movements 0 1 1 (Albin Guerra MD R3) Result Diagram: 09/30/17 0530 09/30/17 0530 Objective Remarks General: Sitting up in bed, no distress Skin: Left foot wrapped in bandage, appears clean, dry, message says not to remove the wrap or dressing. HEENT: Normocephalic, no nasal discharge, no scleral icterus or injection CV: RRR, no murmurs, rubs, or gallops. Left forearm AV fistula with positive thrill. Lungs: CTAB Abdomen: Soft, nontender, nondistended, normal bowel sounds MSK: DP and PT pulses intact Neuro: Awake, alert, oriented X3 GENERAL: Sitting up in the chair doing leg exercises. SKIN: Right great toe scab wound healing. Left foot is wrapped in a bandage is clean dry and intact. HEENT: Normocephalic, no nasal discharge, no scleral icterus or injection CARDIOVASCULAR: Regular rate without murmurs, gallops, or rubs. Left forearm AV fistula positive thrill and bruit. RESPIRATORY: Clear to auscultation. Breath sounds equal bilaterally. No wheezes , rales, or rhonchi. GASTROINTESTINAL: Abdomen soft, non-tender, nondistended, normal bowel sounds MUSCULOSKELETAL: Palpable but weak dorsalis pedis and posterior tibial pulses. No edema. NEUROLOGICAL: Awake and alert. Procedures 09/24/17: 1. Aortogram with left lower extremity angiograms 2. Left posterior tibial artery angioplasty with 3 mm balloon 3. Right common femoral artery Angio-Seal 09/26/17: Left foot transmetatarsal amputation, with findings of gas gangrene infection 09/28/17: Left foot debridement and irrigation with delayed primary closure of the transmetatarsal amputation (Albin Guerra MD R3) A/P Assessment and Plan 57-year-old male with medical history of end-stage renal disease on hemodialysis MWF, COPD, Type 1 DM that is uncontrolled, and peripheral vascular disease, who presents with left foot infection. Status post left posterior tibial artery angioplasty with 3 mm balloon, left foot transmetatarsal amputation, debridement and irrigation of amputation. Discharge Planning Discharge pending recommendations by infectious disease for outpatient antibiotics. Will go to [facility] and receive physical therapy and rehabilitation services. Will need close follow up with PCP, podiatry, and vascular. Recommended no smoking and better control of diabetes, also a graded exercise program for peripheral arterial disease. (Albin Guerra MD R3) Attending Attestation Medical rounds performed with Dr Guerra,Case reviewed in detail, patient seen and examined, Agree with above documentation, See Orders (Nabor Duarte MD) Problem List: (1) Gas gangrene of foot ICD Codes: A48.0 - Gas gangrene Status: Acute Plan: Patient is status post transmetatarsal amputation of the left foot due to gas gangrene. Status post left posterior tibial artery angioplasty with 3 mm balloon. Status post debridement and irrigation with delayed primary closure of the left transmetatarsal amputation. Wound cultures: Enterococcus faecalis - Vancomycin and Zosyn started 09/21/17 - Consulted vascular surgery Dr. Ortiz, appreciate recommendations - Infectious disease consulted, recommendations appreciated - Podiatry consulted, recommendations appreciated - Pain management with gabapentin for neuropathic etiology, Dilaudid due to ESRD , and Tylenol scheduled. - Recently quit smoking, encourage continued abstinence from tobacco use. Informed him of the importance of smoking cessation for healing. - Encourage better control of diabetes and closer follow up with PCP. (2) Diabetes type 1, uncontrolled ICD Codes: E10.65 - Type 1 diabetes mellitus with hyperglycemia Status: Chronic Plan: Type 1 diabetes that is poorly controlled. A1C is 11.5. Blood glucoses here have been relatively well controlled. - Continue Levemir at 10 units twice a day - Sliding scale insulin. - Order supervisor bit and shank department for poorly controlled diabetes. (3) End stage renal disease ICD Codes: N18.6 - End-stage renal disease Status: Chronic Plan: End-stage renal disease on hemodialysis - Consult nephrology for continuation of hemodialysis while inpatient - Left AV fistula with positive thrill and bruit - Renal diet - Avoid nephrotoxic agents as much as possible, monitor vancomycin levels, vancomycin pharmacy consult (4) COPD (chronic obstructive pulmonary disease) ICD Codes: J44.9 - Chronic obstructive pulmonary disease, unspecified Status: Chronic Plan: COPD, not in exacerbation - DuoNebs PRN (5) No contraindication to deep vein thrombosis (DVT) prophylaxis ICD Codes: Z78.9 - Other specified health status Status: Acute Plan: - Heparin 5000 units tid (6) Nutrition, metabolism, and development symptoms ICD Codes: R63.8 - Other symptoms and signs concerning food and fluid intake Status: Acute Plan: ESRD, monitor electrolytes Renal diet (Albin Guerra MD R3) Albin Guerra MD R3 Oct 01, 2017 14:39 Nabor Duarte MD Oct 02, 2017 21:33
[2017-10-01] MEDS: GELATIN 12 MM/7 MM FOAM TOP PRN (15:55)
--- NOTE | 2017-10-01 16:22 | HHI.DS ---
Discharge Summary Admission Date Sep 21, 2017 at 11:44 Discharge Date: Oct 01, 2017 Admitting Diagnosis Left Foot Cellulitis vs osteomyelitis (1) Gas gangrene of foot Diagnosis: Principal Plan: Patient is status post transmetatarsal amputation of the left foot due to gas gangrene. Status post left posterior tibial artery angioplasty with 3 mm balloon. Status post debridement and irrigation with delayed primary closure of the left transmetatarsal amputation. Wound cultures: Enterococcus faecalis - Vancomycin and Zosyn started 09/21/17 - Consulted vascular surgery Dr. Ortiz, appreciate recommendations - Infectious disease consulted, recommendations appreciated - Podiatry consulted, recommendations appreciated - Pain management with gabapentin for neuropathic etiology, Dilaudid due to ESRD , and Tylenol scheduled. - Recently quit smoking, encourage continued abstinence from tobacco use. Informed him of the importance of smoking cessation for healing. - Encourage better control of diabetes and closer follow up with PCP. ICD Codes: A48.0 - Gas gangrene Status: Acute (2) Diabetes type 1, uncontrolled Diagnosis: Principal Plan: Type 1 diabetes that is poorly controlled. A1C is 11.5. Blood glucoses here have been relatively well controlled. - Continue Levemir at 10 units twice a day - Sliding scale insulin. - Order hospice educator for poorly controlled diabetes. ICD Codes: E10.65 - Type 1 diabetes mellitus with hyperglycemia Status: Chronic (3) End stage renal disease Diagnosis: Principal Plan: End-stage renal disease on hemodialysis - Consult nephrology for continuation of hemodialysis while inpatient - Left AV fistula with positive thrill and bruit - Renal diet - Avoid nephrotoxic agents as much as possible, monitor vancomycin levels, vancomycin pharmacy consult ICD Codes: N18.6 - End-stage renal disease Status: Chronic (4) COPD (chronic obstructive pulmonary disease) Diagnosis: Secondary Plan: COPD, not in exacerbation - DuoNebs PRN ICD Codes: J44.9 - Chronic obstructive pulmonary disease, unspecified Status: Chronic (5) No contraindication to deep vein thrombosis (DVT) prophylaxis Diagnosis: Secondary Plan: - Heparin 5000 units tid ICD Codes: Z78.9 - Other specified health status Status: Acute (6) Nutrition, metabolism, and development symptoms Diagnosis: Secondary Plan: ESRD, monitor electrolytes Renal diet ICD Codes: R63.8 - Other symptoms and signs concerning food and fluid intake Status: Acute Consultants Podiatry, nephrology, vascular surgery, diabetic education, case management Procedures 09/24/17: 1. Aortogram with left lower extremity angiograms 2. Left posterior tibial artery angioplasty with 3 mm balloon 3. Right common femoral artery Angio-Seal 09/26/17: Left foot transmetatarsal amputation, with findings of gas gangrene infection 09/28/17: Left foot debridement and irrigation with delayed primary closure of the transmetatarsal amputation CBC/BMP: 09/30/17 0530 09/30/17 0530 Significant Findings Laboratory Tests Test 09/29/17 05:45 09/30/17 05:30 White Blood Count 11.9 TH/MM3 (4.0-11.0) Red Blood Count 2.68 MIL/MM3 (4.50-5.90) 2.62 MIL/MM3 (4.50-5.90) Hemoglobin 7.0 GM/DL (13.0-17.0) 7.2 GM/DL (13.0-17.0) Hematocrit 22.4 % (39.0-51.0) 22.0 % (39.0-51.0) Mean Corpuscular Hemoglobin 26.3 PG (27.0-34.0) Mean Corpuscular Hemoglobin Concent 31.4 % (32.0-36.0) Red Cell Distribution Width 17.8 % (11.6-17.2) 18.0 % (11.6-17.2) Blood Urea Nitrogen 41 MG/DL (7-18) 46 MG/DL (7-18) Creatinine 8.44 MG/DL (0.60-1.30) 10.58 MG/DL (0.60-1.30) Random Glucose 147 MG/DL (74-106) 64 MG/DL (74-106) Calcium Level 8.4 MG/DL (8.5-10.1) Chloride Level 97 MEQ/L (98-107) Estimat Glomerular Filtration Rate 8 ML/MIN (>89) 6 ML/MIN (>89) PE at Discharge General: Sitting up in bed, no distress Skin: Left foot wrapped in bandage, appears clean, dry, message says not to remove the wrap or dressing. HEENT: Normocephalic, no nasal discharge, no scleral icterus or injection CV: RRR, no murmurs, rubs, or gallops. Left forearm AV fistula with positive thrill. Lungs: CTAB Abdomen: Soft, nontender, nondistended, normal bowel sounds MSK: DP and PT pulses intact Neuro: Awake, alert, oriented X3 GENERAL: Sitting up in the chair doing leg exercises. SKIN: Right great toe scab wound healing. Left foot is wrapped in a bandage is clean dry and intact. HEENT: Normocephalic, no nasal discharge, no scleral icterus or injection CARDIOVASCULAR: Regular rate without murmurs, gallops, or rubs. Left forearm AV fistula positive thrill and bruit. RESPIRATORY: Clear to auscultation. Breath sounds equal bilaterally. No wheezes , rales, or rhonchi. GASTROINTESTINAL: Abdomen soft, non-tender, nondistended, normal bowel sounds MUSCULOSKELETAL: Palpable but weak dorsalis pedis and posterior tibial pulses. No edema. NEUROLOGICAL: Awake and alert. Hospital Course 57 year old male with ESRD on dialysis, uncontrolled type 1 diabetes, peripheral vascular disease, and COPD presented with left foot infection. He was status post toe amputation in July 2017. He was given IV vancomycin and Zosyn starting on 09/21 for the infection. Infectious disease, vascular surgery, podiatry, and nephrology were all consulted to help manage the case. His pain was effectively controlled with gabapentin, Dilaudid, and Tylenol. He had Aortogram with left lower extremity angiograms on 09/24. He has left posterior tibial artery angioplasty with a 3 mm balloon and right common femoral artery angio-seal on 09/24/17. He had left foot transmetatarsal amputation with findings of gas gangrene infection on 09/26/17. He had left foot debridement and irrigation with delayed primary closure of the transmetatarsal amputation on 09/28/17. He currently is doing better, and able to bear weight on his heel. He is mobilizing with a walker. He will go back to [facility] where he was at before and undergo rehab and physical therapy. He will follow up with vascular surgery and podiatry for his foot. He will continue to receive hemodialysis on MWF for his ESRD. Pt Condition on Discharge: Fair Discharge Disposition: Discharge to SNF Discharge Instructions DIET: Follow Instructions for: Diabetic Diet Speech Therapy-Diet Recommends: Regular Activities you can perform: Regular-No Restrictions Follow up Referrals: Nephrology - 1 Week PCP Follow-up - 1 Week Podiatry - 1 Week Vascular Surgery @ Vascular Surgery with Randy Ortiz MD, Michael L MD R3 Oct 01, 2017 16:22
--- NOTE | 2017-10-01 16:31 | HHI.IDPN ---
Subjective Subjective Remarks pt is doing OK sp L TMA afebrile path was reviewed: osteomyelitis Antibiotics unasyn Allergies: Coded Allergies: No Known Allergies (Verified Allergy, Unknown, 09/03/17) Objective . Vital Signs Date Time Temp Pulse Resp B/P (MAP) Pulse Ox O2 Delivery O2 Flow Rate FiO2 10/01/17 16:00 84 10/01/17 12:00 79 10/01/17 11:00 98.9 78 18 128/77 (94) 97 10/01/17 11:00 79 10/01/17 10:00 77 10/01/17 09:00 82 10/01/17 08:00 88 10/01/17 07:00 84 10/01/17 07:00 Room Air 10/01/17 07:00 97.4 92 18 109/50 (69) 96 10/01/17 06:00 82 10/01/17 05:00 84 10/01/17 04:50 80 18 136/68 (90) 98 10/01/17 04:00 82 10/01/17 03:00 82 10/01/17 02:00 82 10/01/17 01:00 80 10/01/17 00:40 82 18 131/63 (85) 95 10/01/17 00:00 84 09/30/17 23:00 86 09/30/17 22:00 90 09/30/17 21:00 88 09/30/17 20:00 86 09/30/17 19:50 98.7 87 18 161/74 (103) 99 09/30/17 19:50 99 Room Air 09/30/17 19:07 16 09/30/17 19:07 16 09/30/17 19:00 91 09/30/17 18:02 89 09/30/17 17:13 81 . Laboratory Tests Test 09/30/17 05:30 White Blood Count 11.0 TH/MM3 Red Blood Count 2.62 MIL/MM3 Hemoglobin 7.2 GM/DL Hematocrit 22.0 % Mean Corpuscular Volume 83.9 FL Mean Corpuscular Hemoglobin 27.6 PG Mean Corpuscular Hemoglobin Concent 32.9 % Red Cell Distribution Width 18.0 % Platelet Count 341 TH/MM3 Mean Platelet Volume 8.4 FL Laboratory Tests Test 09/30/17 05:30 Blood Urea Nitrogen 46 MG/DL Creatinine 10.58 MG/DL Random Glucose 64 MG/DL Calcium Level 8.7 MG/DL Sodium Level 139 MEQ/L Potassium Level 3.9 MEQ/L Chloride Level 99 MEQ/L Carbon Dioxide Level 29.8 MEQ/L Anion Gap 10 MEQ/L Estimat Glomerular Filtration Rate 6 ML/MIN Imaging Last Impressions Foot X-Ray 09/26/17 0000 Signed Impressions: Service Date/Time: Tuesday, September 26, 2017 08:10 - CONCLUSION: Amputation of metatarsals. Emmanuel Azul MD Physical Exam CONSTITUTIONAL/GENERAL: This is an adequately nourished patient, in no apparent distress. TUBES/LINES/DRAINS: CARDIOVASCULAR: Regular rate and rhythm 4/6 systolic murmur No JVD. Peripheral pulses symmetric. RESPIRATORY/CHEST: Symmetric, unlabored respirations. Clear to auscultation. Breath sounds equal bilaterally. No wheezes, rales, or rhonchi. GASTROINTESTINAL: Abdomen soft, non-tender, nondistended. No hepato-splenomegaly , or palpable masses. No guarding. Bowel sounds present. MUSCULOSKELETAL: Extremities without clubbing, cyanosis, or edema. post op dressing in place trace edema proximally to dressing NEUROLOGICAL: Awake and alert. Motor and sensory grossly within normal limits. Follows commands. Clear speech . Moves all extremities. PSYCHIATRIC: calm and cooperative Assessment & Plan Remarks Assessment and Plan Diabetic / vascular gangrene L foot and prominent osteo (all pieces of bone submitted for path had ocute oste), mixed aerobic/anaerobic infection sp revascularisation will assume still osteo + REC's: cont 6 weeks of IV abx, followed by 2+ weeks of PO IJ Ta access - approved by sandwich maker will consult invasive rad pt needs surgical intervention Discussed Condition With Susan Cantor Young Crossman, Alexandra A. MD Oct 01, 2017 16:31
[2017-10-01] MEDS ORDERED: LEVEMIR SQ (16:45)
[2017-10-01] MEDS ORDERED: OXYC1TAB63 PO (16:47)
[2017-10-01] MEDS ORDERED: GABA100C4 PO (16:47)
== END 2017-10-01 17:48 | DRG 239 ==
LOC: HCIS 11:44
PROVIDERS: ADMIT Internal Medicine; ATTEND Family Medicine
PROC: 5A1D70Z Performance of Urinary Filtration, Intermittent, Less than 6 Hours Per Day (ICD-10-PCS; 2017-09-21)
PROC: 047S3ZZ Dilation of Left Posterior Tibial Artery, Percutaneous Approach (ICD-10-PCS; principal; 2017-09-24)
PROC: B41G1ZZ Fluoroscopy of Left Lower Extremity Arteries using Low Osmolar Contrast (ICD-10-PCS; 2017-09-24)
PROC: B4101ZZ Fluoroscopy of Abdominal Aorta using Low Osmolar Contrast (ICD-10-PCS; 2017-09-24)
PROC: 0Y6N0Z9 Detachment at Left Foot, Partial 1st Ray, Open Approach (ICD-10-PCS; 2017-09-26)
PROC: 0Y6N0ZB Detachment at Left Foot, Partial 2nd Ray, Open Approach (ICD-10-PCS; 2017-09-26)
PROC: 0Y6N0ZC Detachment at Left Foot, Partial 3rd Ray, Open Approach (ICD-10-PCS; 2017-09-26)
PROC: 0Y6N0ZD Detachment at Left Foot, Partial 4th Ray, Open Approach (ICD-10-PCS; 2017-09-26)
PROC: 0Y6N0ZF Detachment at Left Foot, Partial 5th Ray, Open Approach (ICD-10-PCS; 2017-09-26)
PROC: 0JDR0ZZ Extraction of Left Foot Subcutaneous Tissue and Fascia, Open Approach (ICD-10-PCS; 2017-09-28)
DX: E10.52 Type 1 diabetes mellitus with diabetic peripheral angiopathy with gangrene (principal); A48.0 Gas gangrene; I12.0 Hypertensive chronic kidney disease with stage 5 chronic kidney disease or end stage renal disease; M86.172 Other acute osteomyelitis, left ankle and foot; E10.22 Type 1 diabetes mellitus with diabetic chronic kidney disease; N18.6 End stage renal disease; L03.116 Cellulitis of left lower limb; E10.65 Type 1 diabetes mellitus with hyperglycemia; D63.1 Anemia in chronic kidney disease; Z99.2 Dependence on renal dialysis; R06.6 Hiccough; E78.5 Hyperlipidemia, unspecified; B95.2 Enterococcus as the cause of diseases classified elsewhere; E10.69 Type 1 diabetes mellitus with other specified complication; J44.9 Chronic obstructive pulmonary disease, unspecified; E10.42 Type 1 diabetes mellitus with diabetic polyneuropathy; K59.00 Constipation, unspecified; E10.3599 Type 1 diabetes mellitus with proliferative diabetic retinopathy without macular edema, unspecified eye; Z87.891 Personal history of nicotine dependence; Z79.4 Long term (current) use of insulin
CPT/HCPCS: 36200; 37228; 73630; 75625; 75710; 76937; 80048; 80053; 80202; 82272; 82948; 83036; 83605; 85025; 85027; 85610; 87015; 87040; 87070; 87077; 87102; 87116; 87185; 87186; 87205; 87206; 88304; 88307; 88311; 90935; 93005; 96365; 96375; 99152; 99153; C1725; C1751; C1760; C1769; C1876; C1887; C1893; G0269; J0131; J0295; J1170; J1644; J1815; J2250; J2270; J2543; J3010; J3370; J7030; J7050; L3260; Q4081; Q9967

== ENCOUNTER 2017-10-04 06:39 | Day surgery (SDC) | payer MEDICARE, MEDICAID ==
[~2017-10-04] VITALS: Ht 180.3 cm; Wt 70.5 kg
[~2017-10-04 06:39] MED LIST changes: +GABA100C4 PO; -LEVO500T8 PO; -NOVOLOGSS SQ; +OXYC1TAB63 PO; -PERC5TAB12 PO
[2017-10-04 07:00] VITALS: BP 141/69; PULSE 76; RESP 20; TEMP 98.6; O2SAT 96
[2017-10-04] MEDS ORDERED: AUGM500T7 PO (07:08)
[2017-10-04] MEDS ORDERED: ceFAZolin 2 GM PREMIX 50 ML - implanted port/tunneled catheter insertion IV SCH (07:15)
[2017-10-04] MEDS ORDERED: VANCOMYCIN 1000 MG/NS 250 ML - implanted port/tunneled catheter IV SCH ×2 (07:15)
[2017-10-04] MEDS ORDERED: SODIUM CHLORIDE 0.9% 1000 ML IV SCH (07:15)
[2017-10-04] MEDS ORDERED: MIDAZOLAM HCL 2 MG/2 ML VIAL ONE (08:19)
[2017-10-04] MEDS ORDERED: LIDOCAINE 1%/EPINEPHrine 1:100,000 SOLN 20 ML VIAL ONE (08:31)
[2017-10-04 09:25] VITALS: BP 168/77; PULSE 91; RESP 20; TEMP 97.9; O2SAT 97
[2017-10-04 09:40] VITALS: BP 158/75; PULSE 80; RESP 20; O2SAT 95
--- NOTE | 2017-10-04 10:07 | RADRPT ---
EXAM DATE/TIME: 10/04/2017 09:38 [facility] COMPARISON: No previous studies available for comparison. INDICATIONS : Patient presents with osteomylitis in left foot in need of a ta catheter for IV medications. MEDICAL HISTORY : DM Gangreene foot Dialysis COPD DVT SURGICAL HISTORY : Left AV Fistula ENCOUNTER: Initial ACUITY: 2 weeks PAIN SCORE: 8/10 LOCATION: Left Foot FLUORO TIME: 0.8 minutes IMAGE SERIES: 2 SEDATION TIME: 45 minutes ACCESS: Right internal jugular vein SEDATION: 1.) 2 mg midazolam (Versed) IV 2.) 100 mcg fentanyl (Sublimaze) IV Prophylactic antibiotics were administered with appropriate pre-procedure timing. Vancomycin within 2 hours of procedure, Ancef (or alternative) within 1 hour of procedure. DEVICE: 1. 6 Afghan single lumen cm Ta catheter PROCEDURE : 1. Ultrasound-guided puncture of the prescribed vein. 2. Fluoroscopic guidance. 3. Ta catheter placement 4. Conscious sedation with continuous EKG and oximetry monitoring. The risks, benefits and alternatives to the procedure were explained and verbal and written consent w as obtained. The site was prepped in sterile fashion. Full sterile technique was used, including ca p, mask, sterile gloves and gown and a large sterile sheet. Hand hygiene and 2% chlorhexidine Betadi ne was utilized per protocol for cutaneous antisepsis with appropriate dry time for site. Sterile ge l and sterile probe cover were utilized for ultrasound guidance. The skin and subcutaneous tissues w ere infiltrated with local anesthetic solution. With ultrasound and fluoroscopic guidance a dermatotomy was created in the supraclavicular region. A micropuncture set was used to access to the prescribed vein and serial dilatation was performed to a ccept a Ta catheter. A subcutaneous tunnel was created and in antegrade fashion the catheter wa s pulled through the tunnel, cut to the appropriate length and place through the sheath. The cathete r was locked with heparin and sutured in place. A 2-0 Prolene cerclage was used to secure the chest w all dermatotomy. Conscious sedation was performed with the prescribed dosages and duration as above in the presence of an independent trained radiology nurse to assist in the monitoring of the patient. EKG and oximetry remained stable throughout the procedure. The patient tolerated the procedure well and there were no complications. The patient was sent to post anesthesia recovery in stable condition. CONCLUSION: 1. Uncomplicated Ta catheter placement as above. 2. Chest wall dermatotomy is secured with a 2-0 Prolene cerclage. This can be removed in 10-14 days. Placido Barroso MD on October 04, 2017 at 10:00 Board Certified Radiologist. This report was verified electronically.
[2017-10-04 10:10] VITALS: BP 159/63; PULSE 81; RESP 20; O2SAT 99
[2017-10-04 10:40] VITALS: BP 158/74; PULSE 88; RESP 20; O2SAT 98
[2017-10-04 11:10] VITALS: BP 162/76; PULSE 86; RESP 20; O2SAT 98
--- NOTE | 2017-10-04 15:25 | HHI.FPPN ---
Subjective Remarks 57 year old male in ROPU for placement of a Ta catheter for the purpose of long-term intravenous administration of Unasyn for osteomyelitis. I saw him after completion of his procedure. He is recovering well. He is awake and alert , and in good spirits. He reports no pain. He has no chest pain or shortness of breath. - Discussed case with Dr. Vianey Anguiano, ID. - Will prescribe Unasyn 3 g daily for 6 weeks since surgery, which was on September 26. He will continue the medication through November 06. - Will prescribe Baclofen 10 mg PO daily PRN for intractable hiccups. - Prescriptions faxed back to [facility]. I called them today to verify that they received the orders. - Will stop oral Augmentin now. - Has appointment to see podiatry. Will also need to follow up with his primary care physician for diabetic control. - Will release back to [facility]. Discussed with Dr. Duarte and Dr. Anguiano Objective Vitals Vital Signs Date Time Temp Pulse Resp B/P (MAP) Pulse Ox O2 Delivery O2 Flow Rate FiO2 10/04/17 11:10 86 20 162/76 (104) 98 10/04/17 10:40 88 20 158/74 (102) 98 10/04/17 10:10 81 20 159/63 (95) 99 10/04/17 09:40 80 20 158/75 (102) 95 10/04/17 09:25 97.9 91 20 168/77 (107) 97 10/04/17 07:28 Room Air 10/04/17 07:00 98.6 76 20 141/69 (93) 96 I/O 10/03/17 10/03/17 10/03/17 10/04/17 10/04/17 10/04/17 07:00 15:00 23:00 07:00 15:00 23:00 Intake Total 350 ml Balance 350 ml Intake IV Total 350 ml Albin Guerra MD R3 Oct 04, 2017 15:25
[2017-10-04] MEDS ORDERED: BACL10TA PO ×2 (21:07)
--- NOTE | 2017-10-05 14:34 | PD.RAD ---
Post Procedure Progress Note Pre Procedure Diagnosis: (1) Ischemic ulcer diabetic foot (2) Osteomyelitis (3) Cellulitis of foot, left Post Procedure Diagnosis: (1) Osteomyelitis (2) Cellulitis of foot, left (3) Ischemic ulcer diabetic foot Procedure Date: Oct 05, 2017 Supervising Radiologist: Placido Barroso Proceduralist/Assist: Yg Pereira, RT(R), Alma Quiñones RT(R) Anesthesia: Local, Analgesia, Conscious Sedation Plan of Activity Patient to Unit: ROPU Patient Condition: Good See PACS Report for procedural detail/treatment Central Venous Access Device Procedure 1 Right Internal Jugular Tunneled Central Line (Ta) Placement single lumen Placido Barroso MD Oct 05, 2017 14:34
== END 2017-10-04 11:25 ==
LOC: HROP 06:39 → HRIP 06:45 → HROP 11:25
PROVIDERS: ATTEND Family Medicine
DX: M86.9 Osteomyelitis, unspecified (principal); L03.116 Cellulitis of left lower limb; E11.69 Type 2 diabetes mellitus with other specified complication; I82.509 Chronic embolism and thrombosis of unspecified deep veins of unspecified lower extremity; J44.9 Chronic obstructive pulmonary disease, unspecified; Z99.2 Dependence on renal dialysis
CPT/HCPCS: 36558; 76937; 77001; 99152; 99153; C1751; C1769; C1894; J0690; J1642; J2250; J3010; J3370; J7030; J7050

== ENCOUNTER 2017-10-04 17:10 | Inpatient (IN) | payer MEDICARE, MEDICAID ==
[2017-10-04] VITALS (9 sets, daily range): BP systolic 153–182; BP diastolic 69–84; PULSE 77–85; RESP 13–19; TEMP 97.9–98.5; O2SAT 97–100
[~2017-10-04] VITALS: Ht 180.3 cm; Wt 70.2 kg
[~2017-10-04 17:10] MED LIST changes: +AUGM500T7 PO
[2017-10-04] MEDS ORDERED: SODIUM CHLORIDE 0.9% FLUSH 10 ML FLUSH IVF PRN (17:45)
--- NOTE | 2017-10-04 18:03 | RADRPT ---
EXAM DATE/TIME: 10/04/2017 17:51 [facility] COMPARISON: CHEST SINGLE AP, June 26, 2017, 15:48. INDICATIONS : Central line placement. MEDICAL HISTORY : Hypercholesterolemia. Hypertension Chronic obstructive pulmonary disease. Heart murmur. SURGICAL HISTORY : None. ENCOUNTER: Initial ACUITY: 1 day PAIN SCORE: 4/10 LOCATION: Bilateral chest FINDINGS: AP portable expiratory view of the chest status post placement of right central line demonstrates tip of the catheter in the mid superior vena cava. No evidence of pneumothorax. No focal infiltrate se en. Both hemidiaphragms well delineated. Heart is normal size. CONCLUSION: Central line tip in the mid superior vena cava. No evidence of pneumothorax. Julio Lion MD on October 04, 2017 at 17:59 Board Certified Radiologist. This report was verified electronically.
[2017-10-04 18:13] LABS: AUTOMATED NEUTROPHIL # 8.1 TH/MM3 (1.8-7.7); BASOPHIL # 0.1 TH/MM3 (0-0.2); BASOPHIL % 1.1 % (0.0-2.0); EOSINOPHIL % 0.4 % (0.0-4.0); HEMATOCRIT 27.2 % (39.0-51.0); HEMO FLAGS DIFF FINAL; LYMPH % 7.8 % (9.0-44.0); LYMPHOCYTE # 0.8 TH/MM3 (1.0-4.8); MEAN CELL VOLUME 86.2 FL (80.0-100.0); MEAN CORPUSCULAR HEMOGLOBIN 27.1 PG (27.0-34.0); MEAN CORPUSCULAR HGB CONC 31.4 % (32.0-36.0); MONO % 8.4 % (0.0-8.0); NEUT % 82.3 % (16.0-70.0); PLATELET COUNT 439 TH/MM3 (150-450); RED BLOOD COUNT 3.15 MIL/MM3 (4.50-5.90); RED CELL DISTRIBUTION WIDTH 19.1 % (11.6-17.2); WHITE BLOOD COUNT 9.9 TH/MM3 (4.0-11.0)
--- NOTE | 2017-10-04 18:13 | PD ---
HPI Chief Complaint: Wound/Suture/Staple Re-Check Time Seen by Provider: 17:25 Travel History International Travel<30 days: No Contact w/Intl Traveler<30days: No Traveled to known affect area: No History of Present Illness HPI 57-year-old Afro-[place] type II diabetic on insulin, with history of kidney failure on dialysis and recent left distal foot amputation secondary to diabetic foot ulcer with gangrene to the left foot. Patient had surgery 4 days ago. Patient is currently at a local rehabilitation nursing facility, and was scheduled to see his surgeon today for follow-up, when he woke up from a nap with nausea and sudden onset of vomiting. Blood sugar was checked at the nursing facility and found to be over 500. Patient was given insulin at that time. Patient now has no complaints. Bedside fingerstick blood sugar here is 519. Patient has pain in the left foot but otherwise no acute problems noted. Patient is no longer nauseous or vomiting. He has no known drug allergies. PFSH Past Medical History Hx Anticoagulant Therapy: Yes Arthritis: No Asthma: No Autoimmune Disease: No Blood Disorders: No Anxiety: No Depression: Yes Heart Rhythm Problems: Yes (MURMUR) Cancer: No Cardiovascular Problems: Yes High Cholesterol: Yes Chemotherapy: No Chest Pain: No Congestive Heart Failure: No COPD: Yes Cerebrovascular Accident: No Diabetes: Yes Patient Takes Glucophage: No Dialysis: Yes (M,W,F) Diminished Hearing: No Endocrine: Yes Gastrointestinal Disorders: No GERD: No Genitourinary: Yes Headaches: Yes Hepatitis: Yes Hiatal Hernia: No Hypertension: Yes Immune Disorder: No Implanted Vascular Access Dvce: Yes Kidney Stones: No Musculoskeletal: Yes Neurologic: No Psychiatric: No Reproductive: No Respiratory: Yes Immunizations Current: Yes Radiation Therapy: No Renal Failure: Yes (stage V) Seizures: No Sickle Cell Disease: No Sleep Apnea: No Thyroid Disease: No Ulcer: No Past Surgical History Abdominal Surgery: No AICD: No Arteriovenous Shunt: Yes (lue av fistula) Cardiac Surgery: No Ear Surgery: No Endocrine Surgery: No Eye Surgery: No Genitourinary Surgery: No Gynecologic Surgery: No Insulin Pump: No Joint Replacement: No Oral Surgery: No Pacemaker: No Thoracic Surgery: No Other Surgery: Yes (LT ARM FISTULA, LEFT TOES AMPUTATION (ALL TOES)) Social History Alcohol Use: No Tobacco Use: Yes Substance Use: No Allergies-Medications (Allergen,Severity, Reaction): Coded Allergies: No Known Allergies (Verified Allergy, Unknown, 10/04/17) Reported Meds & Prescriptions Reported Meds & Active Scripts Active Gabapentin 100 Mg Cap 100 Mg PO TID Levemir Inj (Insulin Detemir) 1,000 unit/ 10 ML Vial 10 Units SQ Q12HR Do not mix with any other Insulin. Hydrocodone-Acetaminophen 5-325 mg Tab 1-2 Tab PO Q4HR PRN Symbicort Inh (Budesonide/Formoterol Fumarate) 160-4.5 Mcg/Act Aero 1 Puff INH Q12HR Duloxetine DR (Duloxetine HCl) 30 Mg Capdr 30 Mg PO DAILY Atorvastatin (Atorvastatin Calcium) 40 Mg Tab 40 Mg PO HS Reported Augmentin (Amoxicillin-Clavulanate) 500-125 mg Tab 500 Mg PO DAILY Vitamin D3 (Cholecalciferol) 1,000 Unit Cap 1,000 Units PO DAILY Dialyvite 800/Zinc 15 (B-Complex W/ C-Zn & Folic Acid) 1 Tab 1 Tab DAILY Review of Systems Except as stated in HPI: all other systems reviewed are Neg General / Constitutional: No: Fever Eyes: No: Visual changes HENT: No: Headaches Cardiovascular: No: Chest Pain or Discomfort Respiratory: No: Shortness of Breath Gastrointestinal: Positive: Vomiting (see history present illness.), No: Nausea , Diarrhea, Abdominal Pain Genitourinary: No: Dysuria Musculoskeletal: No: Pain Skin: No Rash Neurologic: No: Weakness Psychiatric: No: Depression Endocrine: Positive: Other (hyperglycemia. See history present illness.), No: Polydipsia Hematologic/Lymphatic: No: Easy Bruising Physical Exam Narrative GENERAL: Patient appears in no obvious distress. Alert and oriented 3. SKIN: Warm and dry. Color. Normal turgor. Surgical site on the left foot is undressed and inspected showing no wound dehiscence with no signs of cellulitis or significant drainage. Dressing is really applied by nursing staff. HEAD: Atraumatic. Normocephalic. EYES: Pupils equal and round. No scleral icterus. No injection or drainage. ENT: No nasal bleeding or discharge. Mucous membranes pink and moist. Pharynx is clear. Airway is patent. NECK: Trachea midline. Supple and nontender. CARDIOVASCULAR: Regular rate and rhythm. RESPIRATORY: No accessory muscle use. Clear to auscultation. Breath sounds equal bilaterally. GASTROINTESTINAL: Abdomen soft, non-tender, nondistended. Hepatic and splenic margins not palpable. MUSCULOSKELETAL: Extremities without clubbing, cyanosis, or edema. No obvious deformities. NEUROLOGICAL: Awake and alert. No obvious cranial nerve deficits. Motor grossly within normal limits. Five out of 5 muscle strength in the arms and legs. Normal speech. PSYCHIATRIC: Appropriate mood and affect; insight and judgment normal. Data Data Last Documented VS Vital Signs Date Time Temp Pulse Resp B/P (MAP) Pulse Ox O2 Delivery O2 Flow Rate FiO2 10/04/17 19:29 81 18 169/78 (108) 97 Room Air 10/04/17 17:31 98.5 Orders Orders Electrocardiogram (10/04/17 17:34) Complete Blood Count With Diff (10/04/17 17:34) Comprehensive Metabolic Panel (10/04/17 17:34) Magnesium (Mg) (10/04/17 17:34) Phosphorus (Po4) (10/04/17 17:34) Beta Hydroxybutyrate (Acetone) (10/04/17 17:34) Osmolality,Serum (10/04/17 17:34) Chest, Single Ap (10/04/17 17:34) Blood Glucose (10/04/17 17:34) Blood Glucose (10/04/17 18:04) Ecg Monitoring (10/04/17 17:34) Iv Access Insert/Monitor (10/04/17 17:34) Oximetry (10/04/17 17:34) Sodium Chloride 0.9% Flush (Ns Flush) (10/04/17 17:45) Insulin Human Regular Inj (Novolin R Inj (10/04/17 19:30) Admit Order (Ed Use Only) (10/04/17 19:53) Labs Laboratory Tests Test 10/04/17 17:45 White Blood Count 9.9 TH/MM3 Red Blood Count 3.15 MIL/MM3 Hemoglobin 8.5 GM/DL Hematocrit 27.2 % Mean Corpuscular Volume 86.2 FL Mean Corpuscular Hemoglobin 27.1 PG Mean Corpuscular Hemoglobin Concent 31.4 % Red Cell Distribution Width 19.1 % Platelet Count 439 TH/MM3 Mean Platelet Volume 9.0 FL Neutrophils (%) (Auto) 82.3 % Lymphocytes (%) (Auto) 7.8 % Monocytes (%) (Auto) 8.4 % Eosinophils (%) (Auto) 0.4 % Basophils (%) (Auto) 1.1 % Neutrophils # (Auto) 8.1 TH/MM3 Lymphocytes # (Auto) 0.8 TH/MM3 Monocytes # (Auto) 0.8 TH/MM3 Eosinophils # (Auto) 0.0 TH/MM3 Basophils # (Auto) 0.1 TH/MM3 CBC Comment DIFF FINAL Differential Comment Blood Urea Nitrogen 51 MG/DL Creatinine 8.80 MG/DL Random Glucose 533 MG/DL Total Protein 7.7 GM/DL Albumin 2.7 GM/DL Calcium Level 9.2 MG/DL Phosphorus Level 7.8 MG/DL Magnesium Level 2.2 MG/DL Alkaline Phosphatase 349 U/L Aspartate Amino Transf (AST/SGOT) 38 U/L Alanine Aminotransferase (ALT/SGPT) 60 U/L Total Bilirubin 0.8 MG/DL Sodium Level 130 MEQ/L Potassium Level 5.0 MEQ/L Chloride Level 90 MEQ/L Carbon Dioxide Level 25.6 MEQ/L Anion Gap 14 MEQ/L Estimat Glomerular Filtration Rate 8 ML/MIN Serum Osmolality 327 MOSM/KG B-Hydroxybutyrate 1.09 MMOL/L [facility] Medical Decision Making Medical Screen Exam Complete: Yes Emergency Medical Condition: Yes Medical Record Reviewed: Yes Differential Diagnosis Hyperglycemia. Nausea vomiting. DKA. Sepsis. Narrative Course Patient's blood sugars rechecked here showing Labs ordered including CBC, CMP, magnesium, phosphorus, and serum osmolality. Blood sugars rechecked every half hour 2. CBC shows mild anemia with a hemoglobin of 8.5. Chemistries show sodium 1:30, chloride of 90, BUN 51, creatinine is 8.80, GFR is 8, random glucose is elevated at 533. Serum osmolality is 327, alkaline phosphatase is elevated at 349. Beta hydroxybutyrate is 1.09. Patient is given 10 units of regular insulin IV. Patient will be given 500 mL of normal saline bolus. Call was placed to the hospitalist for admission. Diagnosis Primary Impression: Diabetes mellitus with hyperglycemia Qualified Codes: E11.65 - Type 2 diabetes mellitus with hyperglycemia; Z79.4 - snf (current) use of insulin Additional Impressions: CKD (chronic kidney disease) stage V requiring chronic dialysis Status post amputation Admitting Information Admitting Physician Requests: Observation Condition: Stable Aaron Khanna Oct 04, 2017 18:13
[2017-10-04 18:38] LABS: ANION GAP 14 MEQ/L (5-15)
--- NOTE | 2017-10-04 18:41 | PD ---
Physical Exam Date Seen by Provider: Oct 04, 2017 Narrative Patient presents with a chief complaint of vomiting and hyperglycemia Data Data Last Documented VS Vital Signs Date Time Temp Pulse Resp B/P (MAP) Pulse Ox O2 Delivery O2 Flow Rate FiO2 10/04/17 17:38 100 Room Air 10/04/17 17:31 98.5 84 18 Orders Orders Electrocardiogram (10/04/17 17:34) Complete Blood Count With Diff (10/04/17 17:34) Comprehensive Metabolic Panel (10/04/17 17:34) Magnesium (Mg) (10/04/17 17:34) Phosphorus (Po4) (10/04/17 17:34) Beta Hydroxybutyrate (Acetone) (10/04/17 17:34) Osmolality,Serum (10/04/17 17:34) Urinalysis - C+S If Indicated (10/04/17 17:34) Chest, Single Ap (10/04/17 17:34) Blood Glucose (10/04/17 17:34) Blood Glucose (10/04/17 18:04) Ecg Monitoring (10/04/17 17:34) Iv Access Insert/Monitor (10/04/17 17:34) Oximetry (10/04/17 17:34) Sodium Chloride 0.9% Flush (Ns Flush) (10/04/17 17:45) Labs Laboratory Tests Test 10/04/17 17:45 White Blood Count 9.9 TH/MM3 Red Blood Count 3.15 MIL/MM3 Hemoglobin 8.5 GM/DL Hematocrit 27.2 % Mean Corpuscular Volume 86.2 FL Mean Corpuscular Hemoglobin 27.1 PG Mean Corpuscular Hemoglobin Concent 31.4 % Red Cell Distribution Width 19.1 % Platelet Count 439 TH/MM3 Mean Platelet Volume 9.0 FL Neutrophils (%) (Auto) 82.3 % Lymphocytes (%) (Auto) 7.8 % Monocytes (%) (Auto) 8.4 % Eosinophils (%) (Auto) 0.4 % Basophils (%) (Auto) 1.1 % Neutrophils # (Auto) 8.1 TH/MM3 Lymphocytes # (Auto) 0.8 TH/MM3 Monocytes # (Auto) 0.8 TH/MM3 Eosinophils # (Auto) 0.0 TH/MM3 Basophils # (Auto) 0.1 TH/MM3 CBC Comment DIFF FINAL Differential Comment MDM Supervised Visit with HA: Yes Narrative Course I, Dr. Barnhart, have reviewed the advance practice practitioner's documentation and am in agreement, met with the patient face to face, made the diagnosis, and the medical decision making was done by me. *My assessment and Findings: Patient is awake and alert and in no acute distress. Please see Tito Khanna PA-C's note for results of laboratory and radiographic evaluation, ED course, final diagnosis and disposition Lawanda Barnhart MD Oct 04, 2017 18:41
[2017-10-04 18:55] LABS: ALKALINE PHOSPHATASE 349 U/L (45-117); ALT (GPT) 60 U/L (12-78); AST (GOT) 38 U/L (15-37); BETA-HYDROXYBUTYRATE 1.09 MMOL/L (0.00-0.39); BICARBONATE 25.6 MEQ/L (21.0-32.0); BLOOD UREA NITROGEN 51 MG/DL (7-18); CHLORIDE 90 MEQ/L (98-107); GLOMERULAR FILTRATION RATE 8 ML/MIN (>89); MAGNESIUM 2.2 MG/DL (1.5-2.5); SODIUM (NA) 130 MEQ/L (136-145); TOTAL BILIRUBIN ADULT 0.8 MG/DL (0.2-1.0)
[2017-10-04] MEDS ORDERED: INSULIN HUMAN REGULAR 1,000 UNITS/10 ML VIAL IV PUSH ONE (19:30)
--- NOTE | 2017-10-04 20:06 | HHI.HP ---
[facility] Service Family Medicine Primary Care Physician Angella Joshua , R3 MD Alyssa Admission Diagnosis Hyperglycemia/Hyponatremia Diagnoses: International Travel<30 Days: No Contact w/Intl Traveler<30days: No Known Affected Area: No History of Present Illness 57 year old male with ESRD on dialysis, uncontrolled type 1 diabetes, peripheral vascular disease, and COPD presented today due to hypoglycemia and vomiting while at his SNF. Glucose was reported to be around 500-600s. Hx significant for recent hospitalization from 09/21-10-01 due to osteomyelitis and gas gangrene of left foot that required transmetatarsal amputation. Patient was also in the hospital today 10/04 for placement of Ta catheter which was uncomplicated and he was discharged back to rehabilitation. Recommendations at that time were to have Unasyn 3 g daily for 6 weeks and to discontinue Augmentin. After placement of catheter, patient reports going back to his rehabilitation facility and taking a nap. When he woke up to go to his wound care appointment he began to vomit 3 that was only liquid as he had not eaten very much during the day due to his procedure. Reports that he did receive his insulin for the day though. Because of this vomiting, the rehabilitation facility did not take him to his wound care appointment for which he is very upset about. Outside of the vomiting episode, patient states that he feels very well and has no complaints. Denies confusion, continued vomiting, abdominal pain, chest pain, SOB. Overall he states that he feels well and has no pain of his left foot. Does report that he is able to walk on the left foot but that he is not supposed to. Review of Systems Constitutional: DENIES: Fever, Dizziness, Change in appetite Eyes: DENIES: Blurred vision Ears, nose, mouth, throat: DENIES: Throat pain, Running Nose Respiratory: DENIES: Cough, Shortness of breath Cardiovascular: DENIES: Chest pain, Palpitations, Lower Extremity Edema Gastrointestinal: COMPLAINS OF: Vomiting, DENIES: Abdominal pain, Nausea Musculoskeletal: DENIES: Joint pain Integumentary: DENIES: Rash Neurologic: DENIES: Headache, Seizures Psychiatric: DENIES: Confusion Past Family Social History Past Medical History Renal failure, on dialysis due to diabetes. Started 2013 on Dialysis , , Sunday. * AV fistula on left arm Diabetes Mellitus HTN Anemia HLD COPD Past Surgical History AV fistula left foot transmetatarsal amputation 09/2017 Right catheter port placed 09/2017 Reported Medications Reported Meds & Active Scripts Active Gabapentin 100 Mg Cap 100 Mg PO TID Levemir Inj (Insulin Detemir) 1,000 unit/ 10 ML Vial 10 Units SQ Q12HR Do not mix with any other Insulin. Hydrocodone-Acetaminophen 5-325 mg Tab 1-2 Tab PO Q4HR PRN Symbicort Inh (Budesonide/Formoterol Fumarate) 160-4.5 Mcg/Act Aero 1 Puff INH Q12HR Duloxetine DR (Duloxetine HCl) 30 Mg Capdr 30 Mg PO DAILY Atorvastatin (Atorvastatin Calcium) 40 Mg Tab 40 Mg PO HS Reported Augmentin (Amoxicillin-Clavulanate) 500-125 mg Tab 500 Mg PO DAILY Vitamin D3 (Cholecalciferol) 1,000 Unit Cap 1,000 Units PO DAILY Dialyvite 800/Zinc 15 (B-Complex W/ C-Zn & Folic Acid) 1 Tab 1 Tab DAILY Allergies: Coded Allergies: No Known Allergies (Verified Allergy, Unknown, 10/04/17) Family History Mother: from ovarian cancer Father: from heart disease. Had been on dialysis 2 brothers both have diabetes but late in their life Social History Transferred here from [facility] On disability due to dialysis Alcohol: None except for special occasions Smokin/3ppd for 30+yrs, decreased to 1-2cigs per day but now quit x 2mths Illicit: Use to smoke marijuana. Quit >20yrs but does admit to having a joint every once in a while. but now states he has completely stopped Physical Exam Vital Signs Vital Signs Date Time Temp Pulse Resp B/P (MAP) Pulse Ox O2 Delivery O2 Flow Rate FiO2 10/04/17 19:29 81 18 169/78 (108) 97 Room Air 10/04/17 19:00 80 15 169/78 (108) 98 Room Air 10/04/17 18:00 82 13 177/84 (115) 99 Room Air 10/04/17 17:38 100 Room Air 10/04/17 17:31 98.5 84 18 171/75 (107) 100 Room Air 10/04/17 17:20 98.5 83 19 171/75 (107) 100 Physical Exam GENERAL: This is a well-nourished, well-developed patient, in no apparent distress. SKIN: Healing incision site of left foot. Mild bleeding present and site still slightly open but no signs of infection. Right great toe with small necrotic lesion on most distal aspect but without erythema or signs of infection. Onychomycosis on multiple toes. Catheter side on right upper chest clean and dry. No signs of infection. HEAD: Atraumatic. Normocephalic. EYES: Pupils equal round and reactive. Extraocular motions intact. No scleral icterus. No injection or drainage. ENT: Throat without erythema, tonsillar hypertrophy or exudate. Uvula midline. Airway patent. NECK: Trachea midline. No JVD or lymphadenopathy. Supple, nontender, no meningeal signs. CARDIOVASCULAR: Regular rate and rhythm. Grade 3/6 LINDA on left upper sternal border RESPIRATORY: Clear to auscultation. Breath sounds equal bilaterally. No wheezes , rales, or rhonchi. GASTROINTESTINAL: Abdomen soft, non-tender, nondistended. No hepato-splenomegaly , or palpable masses. No guarding. MUSCULOSKELETAL: Extremities without clubbing, cyanosis, or edema. No calf tenderness. NEUROLOGICAL: Awake and alert. Motor grossly within normal limits. Normal speech. Laboratory Laboratory Tests Test 10/04/17 17:45 White Blood Count 9.9 Red Blood Count 3.15 Hemoglobin 8.5 Hematocrit 27.2 Mean Corpuscular Volume 86.2 Mean Corpuscular Hemoglobin 27.1 Mean Corpuscular Hemoglobin Concent 31.4 Red Cell Distribution Width 19.1 Platelet Count 439 Mean Platelet Volume 9.0 Neutrophils (%) (Auto) 82.3 Lymphocytes (%) (Auto) 7.8 Monocytes (%) (Auto) 8.4 Eosinophils (%) (Auto) 0.4 Basophils (%) (Auto) 1.1 Neutrophils # (Auto) 8.1 Lymphocytes # (Auto) 0.8 Monocytes # (Auto) 0.8 Eosinophils # (Auto) 0.0 Basophils # (Auto) 0.1 CBC Comment DIFF FINAL Differential Comment Blood Urea Nitrogen 51 Creatinine 8.80 Random Glucose 533 Total Protein 7.7 Albumin 2.7 Calcium Level 9.2 Phosphorus Level 7.8 Magnesium Level 2.2 Alkaline Phosphatase 349 Aspartate Amino Transf (AST/SGOT) 38 Alanine Aminotransferase (ALT/SGPT) 60 Total Bilirubin 0.8 Sodium Level 130 Potassium Level 5.0 Chloride Level 90 Carbon Dioxide Level 25.6 Anion Gap 14 Estimat Glomerular Filtration Rate 8 Serum Osmolality 327 B-Hydroxybutyrate 1.09 Result Diagram: 10/04/17174410/04/171744 Imaging Last Impressions Chest X-Ray 10/04/171733 Signed Impressions: Service Date/Time: September 17:51 - CONCLUSION: Central line tip in the mid superior vena cava. No evidence of pneumothorax. MD [place]on [place] VTE Risk Assessment Caprini VTE Risk Assessment: Mod/High Risk (score >= 2) VTE Pharm Contraindication: recent surgical procedure Caprini Risk Assessment Model Point Value = 1 Point Value = 2 Point Value = 3 Point Value = 5 Age 41-60 Minor surgery BMI > 25 kg/m2 Swollen legs Varicose veins or History of unexplained or recurrent spontaneous Oral contraceptives or hormone replacement Sepsis (< 1 month) Serious lung disease, including pneumonia (< 1 month) Abnormal pulmonary function Acute myocardial infarction Congestive heart failure (< 1 month) History of inflammatory bowel disease Medical patient at bed rest Age 61-74 Arthroscopic surgery Major open surgery (> 45 min) Laparoscopic surgery (> 45 min) Malignancy Confined to bed (> 72 hours) Immobilizing plaster cast Central venous access Age >= 75 History of VTE Family history of VTE Factor V Leiden Prothrombin [id number] Lupus anticoagulant Anticardiolipin antibodies Elevated serum homocysteine Heparin-induced thrombocytopenia Other congenital or acquired thrombophilia Stroke (< 1 month) Elective arthroplasty Hip, pelvis, or leg fracture Acute spinal cord injury (< 1 month) Prophylaxis Regimen Total Risk Factor Score Risk Level Prophylaxis Regimen 0-1 Low Early ambulation 2 Moderate Order ONE of the following: *Sequential Compression Device (SCD) *Heparin 5000 units SQ BID 3-4 Higher Order ONE of the following medications: *Heparin 5000 units SQ TID *Enoxaparin/Lovenox 40 mg SQ daily (WT < 150 kg, CrCl > 30 mL/min) *Enoxaparin/Lovenox 30 mg SQ daily (WT < 150 kg, CrCl > 10-29 mL/min) *Enoxaparin/Lovenox 30 mg SQ BID (WT < 150 kg, CrCl > 30 mL/min) AND/OR *Sequential Compression Device (SCD) 5 or more Highest Order ONE of the following medications: *Heparin 5000 units SQ TID (Preferred with Epidurals) *Enoxaparin/Lovenox 40 mg SQ daily (WT < 150 kg, CrCl > 30 mL/min) *Enoxaparin/Lovenox 30 mg SQ daily (WT < 150 kg, CrCl > 10-29 mL/min) *Enoxaparin/Lovenox 30 mg SQ BID (WT < 150 kg, CrCl > 30 mL/min) AND *Sequential Compression Device (SCD) Assessment and Plan Assessment and Plan 57 year old male with ESRD on dialysis, uncontrolled type 1 diabetes, peripheral vascular disease, and COPD. Admitted for electrolyte abnormality including hyperglycemia Code Status FULL Problem List: (1) Electrolyte disturbance ICD Codes: E87.8 - Other disorders of electrolyte and fluid balance, not elsewhere classified Status: Acute Plan: Hx of poorly controlled DM. Presented with vomiting but this has since resolved since admission. Found to have hyperglycemia around 500s on admission that was treated with Novolog. No anion gap present but beta hydroxybutyrate slightly elevated on admission. Pt otherwise asymptomatic. Associated hyponatremia likely lower than actual due to elevated glucose. Potassium otherwise WNL. -caution with IV fluids due to renal status, encourage PO intake at this time -monitor glucose, including 3AM but without sliding scale coverage -repeat BMP q6hrs -cardiac telemetry until electrolyte disturbances have resolved. Medications: * Levemir dose decreased to 8units after initial home dose of 10units * Novolog 2 units prior to lunch and dinner * Low dose sliding scale * s/p 10 units Novolin in ED (2) Osteomyelitis ICD Codes: M86.9 - Osteomyelitis, unspecified Status: Acute Plan: S/p left transmetatarsal amputation. Will require 6wks of IV abx. Since pt received Vanc and Cefazolin today, will start recommended Unasyn on 2016 -Continue Unasyn 3g -Wound care consulted for continued management of amputation since wound is still healing (3) COPD (chronic obstructive pulmonary disease) ICD Codes: J44.9 - Chronic obstructive pulmonary disease, unspecified Status: Chronic Plan: Continue home symbicort. -Albuterol PRN (4) ESRD on hemodialysis ICD Codes: N18.6 - End stage renal disease; Z99.2 - Dependence on renal dialysis Status: Chronic Plan: ESRD MWF -phosphorus elevated to 7.8 on admission -repeat phosphorus -start sevelamer phosphate binder 1200mg TIDAC -Nephrology consulted for dialysis (5) DM (diabetes mellitus) ICD Codes: E11.9 - Type 2 diabetes mellitus without complications Status: Chronic Plan: Please see plan under Electrolyte disturbance (6) Nutrition, metabolism, and development symptoms ICD Codes: R63.8 - Other symptoms and signs concerning food and fluid intake Plan: Fluids: PO hydration Diet: Renal and diabetic Electrolytes: see plan above DVT: SCDs, hold on chemical ppx due to recent procedure on 10/04/2017 GI PPX: not indicated. Angella Shah MD, R3 Oct 04, 2017 20:06
[2017-10-04] MEDS ORDERED: SODIUM CHLORIDE 0.9% FLUSH 10 ML FLUSH IV FLUSH PRN ×2 (20:15→21:15)
[2017-10-04] MEDS ORDERED: SODIUM CHLORIDE 0.9% FLUSH 10 ML FLUSH IV FLUSH SCH (21:00)
[2017-10-04] MEDS ORDERED: INSULIN DETEMIR 100 UNITS/ML VIAL SQ SCH (21:00)
[2017-10-04] MEDS ORDERED: BACL10TA PO ×2 (21:07)
[2017-10-04] MEDS ORDERED: LACTULOSE SYRUP 20 GM/30 ML CUP PO PRN (21:15)
[2017-10-04] MEDS ORDERED: BISACODYL 10 MG SUPP RECTAL PRN (21:15)
[2017-10-04] MEDS ORDERED: MAGNESIUM HYDROXIDE SUSP 30 ML CUP PO PRN (21:15)
[2017-10-04] MEDS ORDERED: SENNOSIDES 8.6 MG TAB PO PRN (21:15)
[2017-10-04] MEDS ORDERED: NALOXONE HCL 0.4 MG/ML AMP IV PUSH PRN (21:15)
[2017-10-04] MEDS ORDERED: ONDANSETRON HCL 4 MG/2 ML VIAL IVP PRN (21:15)
[2017-10-04] MEDS: BUDESONIDE-FORMOTEROL 160/4.5 MCG INHALER INH SCH (21:42)
[2017-10-04] MEDS: ATORVASTATIN 40 MG TAB PO SCH (21:43)
[2017-10-04] MEDS ORDERED: DEXTROSE 50% IN WATER 50 ML VIAL(D50) IV PUSH PRN (22:00)
[2017-10-04] MEDS ORDERED: GLUCAGON 1 MG/ML VIAL OTHER PRN (22:00)
[2017-10-04] MEDS ORDERED: RESP: ALBUTEROL 2.5 MG/3 ML NEB (PRN) INH (23:00)
--- NOTE | 2017-10-04 23:39 | EKG ---
Date Performed: 10/04/2017 Time Performed: 17:59:41 PTAGE: 57 years EKG: Sinus rhythm WITH OCCASIONAL SUPRAVENTRICULAR PREMATURE COMPLEXES POSSIBLE LEFT ATRIAL ENLARGEMENT BORDERLINE ECG PREVIOUS TRACING : 09/24/2017 06.23 Compared to prior tracing no significant change DOCTOR: Farhan Arnett Interpretating Date/Time 10/04/2017 23:38:45
[2017-10-05] VITALS (9 sets, daily range): BP systolic 128–152; BP diastolic 60–81; PULSE 68–87; RESP 18–20; TEMP 98.2–98.9; O2SAT 96–100
[2017-10-05 01:43] LABS: BETA-HYDROXYBUTYRATE 0.3 MMOL/L (0.00-0.39); BICARBONATE 23.7 MEQ/L (21.0-32.0); POTASSIUM 5.5 MEQ/L (3.5-5.1)
[2017-10-05] MEDS ORDERED: INSULIN ASPART 1,000 UNITS/10 ML VIAL SQ ONE ×2 (02:15→03:45)
[2017-10-05] MEDS ORDERED: cloNIDine HCL 0.1 MG TAB PO PRN ×2 (03:30→08:45)
[2017-10-05 07:43] LABS: AUTOMATED NEUTROPHIL # 7.8 TH/MM3 (1.8-7.7); BASOPHIL # 0.1 TH/MM3 (0-0.2); BASOPHIL % 1.2 % (0.0-2.0); EOSINOPHIL # 0.6 TH/MM3 (0-0.4); EOSINOPHIL % 5.5 % (0.0-4.0); HEMATOCRIT 23.1 % (39.0-51.0); HEMO FLAGS DIFF FINAL; LYMPH % 13.4 % (9.0-44.0); LYMPHOCYTE # 1.5 TH/MM3 (1.0-4.8); MEAN CELL VOLUME 82.1 FL (80.0-100.0); MEAN CORPUSCULAR HEMOGLOBIN 25.9 PG (27.0-34.0); MEAN CORPUSCULAR HGB CONC 31.6 % (32.0-36.0); MONO % 12.3 % (0.0-8.0); NEUT % 67.6 % (16.0-70.0); PLATELET COUNT 357 TH/MM3 (150-450); RED BLOOD COUNT 2.82 MIL/MM3 (4.50-5.90); RED CELL DISTRIBUTION WIDTH 18.5 % (11.6-17.2); WHITE BLOOD COUNT 11.6 TH/MM3 (4.0-11.0)
[2017-10-05] MEDS: INSULIN ASPART SUPPLEMENTAL SCALE SQ SCH ×4 (08:00→20:20)
[2017-10-05] MEDS ORDERED: SEVELAMER CARBONATE 800 MG TAB PO SCH (08:00)
[2017-10-05 08:12] LABS: ALKALINE PHOSPHATASE 331 U/L (45-117); ALT (GPT) 53 U/L (12-78); ANION GAP 12 MEQ/L (5-15); AST (GOT) 80 U/L (15-37); BICARBONATE 26.2 MEQ/L (21.0-32.0); BLOOD UREA NITROGEN 64 MG/DL (7-18); CHLORIDE 96 MEQ/L (98-107); GLOMERULAR FILTRATION RATE 7 ML/MIN (>89); POTASSIUM 4.5 MEQ/L (3.5-5.1); SODIUM (NA) 134 MEQ/L (136-145); TOTAL BILIRUBIN ADULT 0.5 MG/DL (0.2-1.0)
[2017-10-05] MEDS ORDERED: SODIUM CHLOR 0.9% 1000 ML INJ 1,000 ML IV PRN (08:39)
[2017-10-05] MEDS ORDERED: SODIUM CHLOR 0.9% 1000 ML INJ 1,000 ML OTHER PRN ×2 (08:39)
[2017-10-05] MEDS ORDERED: ALBUMIN 25% INJ 100 ML IV PRN (08:45)
[2017-10-05] MEDS ORDERED: EPOETIN ALFA 10,000 UNITS/ML VIAL IV PUSH PRN (08:45)
[2017-10-05] MEDS ORDERED: SODIUM CHLORIDE 0.9% FLUSH 10 ML FLUSH IV FLUSH PRN (08:45)
[2017-10-05] MEDS ORDERED: NITROGLYCERIN 0.4 MG SL 25 TABS/BTL SL PRN (08:45)
[2017-10-05] MEDS ORDERED: MANNITOL 12.5 GM/50 ML VIAL IV PRN (08:45)
[2017-10-05] MEDS ORDERED: ONDANSETRON HCL 4 MG/2 ML VIAL IV PUSH PRN (08:45)
[2017-10-05] MEDS ORDERED: GELATIN 12 MM/7 MM FOAM TOP PRN (08:45)
[2017-10-05] MEDS ORDERED: diphenhydrAMINE HCL 25 MG CAP PO PRN (08:45)
[2017-10-05] MEDS ORDERED: HEPARIN SODIUM - IV 10,000 UNITS/10 ML VIAL IV FLUSH PRN (08:45)
[2017-10-05] MEDS ORDERED: HEPARIN SODIUM - IV 10,000 UNITS/10 ML VIAL PRN (08:45)
[2017-10-05] MEDS ORDERED: GENTAMICIN SULFATE (DIALYSIS USE ONLY) 20 MG/2 ML VIAL OTHER PRN (08:45)
[2017-10-05] MEDS ORDERED: ACETAMINOPHEN 325 MG TAB PO PRN (08:45)
[2017-10-05] MEDS: DOCUSATE SODIUM 50 MG/SENNA 8.6 MG TAB PO SCH ×2 (09:00→20:13)
[2017-10-05] MEDS ORDERED: INSULIN DETEMIR 100 UNITS/ML VIAL SQ SCH (09:00)
[2017-10-05] MEDS: DULoxetine HCl DR 30 MG CAP PO SCH (09:00)
[2017-10-05] MEDS: AMPICILLIN-SULBACTAM INJ 3 GM in SODIUM CHLORIDE 0.9% INJ 100 ML IV SCH (09:00)
[2017-10-05] MEDS: CHOLECALCIFEROL (VIT D3) 1000 UNIT TAB PO SCH (09:00)
[2017-10-05] MEDS: VITAMIN B CMPLX/VITC/FOLIC AC CAP PO SCH (09:00)
[2017-10-05] MEDS: SODIUM CHLORIDE 0.9% FLUSH 10 ML FLUSH IV FLUSH SCH ×2 (09:00→20:23)
[2017-10-05] MEDS: BUDESONIDE-FORMOTEROL 160/4.5 MCG INHALER INH SCH ×2 (09:13→20:21)
[2017-10-05] MEDS: GABAPENTIN 100 MG CAP PO SCH ×3 (09:13→17:31)
[2017-10-05] MEDS: INSULIN ASPART 1,000 UNITS/10 ML VIAL SQ SCH (11:00)
--- NOTE | 2017-10-05 11:28 | PD.CONS ---
HPI Service Nephrology Consult Requested By Reason for Consult ESRD on HD Primary Care Physician Angella Joshua , R3 MD Alyssa History of Present Illness This is a 57 y/o AAM readmitted. He was just discharged this week after left midfoot amputation due to osteomyelitis. He was at a SNF, went to have a Ta catheter placed for Unasyn administration. When he returned to the SNF, another resident was sleeping in his bed, therefore the patient became upset. He tood a nap, later awoke, and reportedly vomited bile-like material. He did not feel bad at that time. He is a brittle diabetic, glucose noted to be elevated, therefore he was sent in for evaluation. The patient reports he is here, "because I do not like the care home". PMH listed below, he is due for dialysis today. His left foot is dressed, sutures remain in place. We were consulted to assist with management. (Jasmyne Bee) Review of Systems Constitutional: COMPLAINS OF: Fatigue (Jasmyne Bee) Past Family Social History Allergies: Coded Allergies: No Known Allergies (Verified Allergy, Unknown, 10/04/17) Past Medical History Renal failure, on dialysis due to diabetes. Started 2013 on Dialysis , , Sunday. * AV fistula on left arm Diabetes Mellitus HTN Anemia HLD COPD Past Surgical History Ta placement Sep 2017 AV fistula placement left foot transmetatarsal amputation 09/2017 Right catheter port placed 09/2017 Reported Medications Gabapentin 100 Mg Cap 100 Mg PO TID Levemir Inj (Insulin Detemir) 1,000 unit/ 10 ML Vial 10 Units SQ Q12HR Do not mix with any other Insulin. Hydrocodone-Acetaminophen 5-325 mg Tab 1-2 Tab PO Q4HR PRN Symbicort Inh (Budesonide/Formoterol Fumarate) 160-4.5 Mcg/Act Aero 1 Puff INH Q12HR Duloxetine DR (Duloxetine HCl) 30 Mg Capdr 30 Mg PO DAILY Atorvastatin (Atorvastatin Calcium) 40 Mg Tab 40 Mg PO HS Augmentin (Amoxicillin-Clavulanate) 500-125 mg Tab 500 Mg PO DAILY Vitamin D3 (Cholecalciferol) 1,000 Unit Cap 1,000 Units PO DAILY Dialyvite 800/Zinc 15 (B-Complex W/ C-Zn & Folic Acid) 1 Tab 1 Tab DAILY Active Ordered Medications Current Medications Medications (Trade) Dose Ordered Sig/April Route Start Time Stop Time Status Last Admin (Lipitor) 40 mg HS PO 10/04/17 21:00 10/04/17 21:43 (Symbicort 160-4.5 Mcg Inh) 1 puff Q12HR INH 10/04/17 21:00 10/05/17 09:13 (Vitamin D3) 1,000 units DAILY PO 10/05/17 09:00 (Cymbalta Dr) 30 mg DAILY PO 10/05/17 09:00 (Neurontin) 100 mg TID PO 10/05/17 09:00 10/05/17 09:13 (Nephrocaps) 1 cap DAILY PO 10/05/17 09:00 (NS Flush) 2 ml UNSCH PRN IV FLUSH 10/04/17 21:15 (NS Flush) 2 ml BID IV FLUSH 10/05/17 09:00 10/05/17 09:00 (Zofran Inj) 4 mg Q6H PRN IVP 10/04/17 21:15 (Narcan Inj) 0.4 mg UNSCH PRN IV PUSH 10/04/17 21:15 (Odette-Colace) 1 tab BID PO 10/05/17 09:00 (Milk Of Magnesia Liq) 30 ml Q12H PRN PO 10/04/17 21:15 (Senokot) 17.2 mg Q12H PRN PO 10/04/17 21:15 (Dulcolax Supp) 10 mg DAILY PRN RECTAL 10/04/17 21:15 (Lactulose Liq) 30 ml DAILY PRN PO 10/04/17 21:15 Ampicillin Sodium/ Sulbactam Sodium 3 gm/Sodium Chloride 100 ml @ 200 mls/hr DAILY IV 10/05/17 09:00 (D50w (Vial) Inj) 50 ml UNSCH PRN IV PUSH 10/04/17 22:00 (Glucagon Inj) 1 mg UNSCH PRN OTHER 10/04/17 22:00 (NovoLOG SUPPLEMENTAL SCALE) 1 ACHS SLIDING SCALE SQ 10/05/17 08:00 10/05/17 08:00 (NovoLOG INJ) 2 units AC LUNCH SQ 10/05/17 11:00 (NovoLOG INJ) 2 units AC DINNER SQ 10/05/17 16:00 (Albuterol Neb) 2.5 mg Q2HR NEB PRN INH 10/04/17 23:00 (Levemir Inj) 8 units Q12HR SQ 10/05/17 09:00 10/05/17 09:00 (Catapres) 0.1 mg Q6H PRN PO 10/05/17 03:30 (Renvela) 1,600 mg TIDAC PO 10/05/17 12:00 Sodium Chloride 1,000 ml @ 0 mls/hr Q0M PRN OTHER 10/05/17 08:39 (Heparin Inj) 8,000 units UNSCH PRN IV FLUSH 10/05/17 08:45 Sodium Chloride 1,000 ml @ 200 mls/hr Q5H PRN IV 10/05/17 08:39 Sodium Chloride 1,000 ml @ 0 mls/hr Q0M PRN OTHER 10/05/17 08:39 (Mannitol Inj) 12.5 gm UNSCH PRN IV 10/05/17 08:45 Albumin Human 100 ml @ 60 mls/hr UNSCH PRN IV 10/05/17 08:45 (NS Flush) 5 ml UNSCH PRN IV FLUSH 10/05/17 08:45 (Heparin Inj) UNSCH PRN .XX 10/05/17 08:45 (Gentamicin (Dialysis) Inj) 20 mg UNSCH PRN OTHER 10/05/17 08:45 (Zofran Inj) 4 mg UNSCH PRN IV PUSH 10/05/17 08:45 (Tylenol) 650 mg UNSCH PRN PO 10/05/17 08:45 (Benadryl) 25 mg UNSCH PRN PO 10/05/17 08:45 (Nitrostat Sl) 0.4 mg UNSCH PRN SL 10/05/17 08:45 (Catapres) 0.1 mg UNSCH PRN PO 10/05/17 08:45 (Epogen Inj) 10,000 units UNSCH PRN IV PUSH 10/05/17 08:45 (Gelfoam 12 Mm/7 Mm Top) 1 foam UNSCH PRN TOP 10/05/17 08:45 Family History Non contributory Social History Daily smoker Former ETOH and marijuana He is residing at [facility], historically homeless but stays in a cheondoism basement Full code Unemployed (Jasmyne BeeLaurie GOMEZ) Physical Exam Vital Signs Vital Signs Date Time Temp Pulse Resp B/P (MAP) Pulse Ox O2 Delivery O2 Flow Rate FiO2 10/05/17 08:44 100 21 10/05/17 08:22 98.9 68 20 133/65 (87) 96 10/05/17 04:31 98.5 76 18 128/60 (82) 97 10/05/17 04:01 76 10/05/17 00:56 98.4 78 18 152/81 (104) 100 10/05/17 00:00 76 10/04/17 22:22 85 10/04/17 21:48 97.9 81 18 153/69 (97) 100 10/04/17 21:27 10/04/17 20:02 77 18 182/82 (115) 99 Room Air 10/04/17 19:29 81 18 169/78 (108) 97 Room Air 10/04/17 19:00 80 15 169/78 (108) 98 Room Air 10/04/17 18:00 82 13 177/84 (115) 99 Room Air 10/04/17 17:38 100 Room Air 10/04/17 17:31 98.5 84 18 171/75 (107) 100 Room Air 10/04/17 17:20 98.5 83 19 171/75 (107) 100 Physical Exam young AAM lying in bed, awake and alert without neuro deficit S1/S2, RRR, no murmurs or rubs lungs clear in all valdez abdomen soft, non tender, non distended ext: no edema; LUE AVF, + thrill/bruit; left foot, s/p left midfoot amputation; dressing in place; weak pulses bilaterally Ta right chest Laboratory Laboratory Tests Test 10/04/17 17:45 10/05/17 01:08 10/05/17 07:16 White Blood Count 9.9 11.6 Red Blood Count 3.15 2.82 Hemoglobin 8.5 7.3 Hematocrit 27.2 23.1 Mean Corpuscular Volume 86.2 82.1 Mean Corpuscular Hemoglobin 27.1 25.9 Mean Corpuscular Hemoglobin Concent 31.4 31.6 Red Cell Distribution Width 19.1 18.5 Platelet Count 439 357 Mean Platelet Volume 9.0 8.6 Neutrophils (%) (Auto) 82.3 67.6 Lymphocytes (%) (Auto) 7.8 13.4 Monocytes (%) (Auto) 8.4 12.3 Eosinophils (%) (Auto) 0.4 5.5 Basophils (%) (Auto) 1.1 1.2 Neutrophils # (Auto) 8.1 7.8 Lymphocytes # (Auto) 0.8 1.5 Monocytes # (Auto) 0.8 1.4 Eosinophils # (Auto) 0.0 0.6 Basophils # (Auto) 0.1 0.1 CBC Comment DIFF FINAL DIFF FINAL Differential Comment Blood Urea Nitrogen 51 61 64 Creatinine 8.80 9.07 9.97 Random Glucose 533 475 286 Total Protein 7.7 6.7 Albumin 2.7 2.2 Calcium Level 9.2 8.8 8.6 Phosphorus Level 7.8 8.0 Magnesium Level 2.2 Alkaline Phosphatase 349 331 Aspartate Amino Transf (AST/SGOT) 38 80 Alanine Aminotransferase (ALT/SGPT) 60 53 Total Bilirubin 0.8 0.5 Sodium Level 130 132 134 Potassium Level 5.0 5.5 4.5 Chloride Level 90 95 96 Carbon Dioxide Level 25.6 23.7 26.2 Anion Gap 14 13 12 Estimat Glomerular Filtration Rate 8 7 7 Serum Osmolality 327 B-Hydroxybutyrate 1.09 0.30 (Jasmyne Bee) Result Diagram: 10/05/17 0716 10/05/17 0716 Imaging Last 72 hours Impressions Chest X-Ray 10/04/17 7084 Signed Impressions: Service Date/Time: September 17:51 - CONCLUSION: Central line tip in the mid superior vena cava. No evidence of pneumothorax. Julio Lion MD (Jasmyne Bee) Assessment and Plan Problem List: (1) ESRD (end stage renal disease) ICD Codes: N18.6 - End-stage renal disease Status: Resolved Plan: MWF HD, orders entered, he is due today Has functioning AV access Intermittently obtain renal panel Avoid IVF administration High protein diet ordered On Renvela with meals, phosphorus is elevated. (2) Anemia ICD Codes: D64.9 - Anemia, unspecified Plan: Epogen with HD Iron profile ordered (3) DM (diabetes mellitus) ICD Codes: E11.9 - Type 2 diabetes mellitus without complications Status: Chronic Plan: He is a brittle diabetic Came in hyperglycemic. Use Insulin as needed. (4) Osteomyelitis ICD Codes: M86.9 - Osteomyelitis, unspecified Status: Acute Plan: S/P Ta catheter placement To be on Unasyn Continue wound care Noted leukocytosis (5) HTN (hypertension) ICD Codes: I10 - Essential (primary) hypertension Status: Chronic Plan: Resume home medications Permanent Comment: Last Edited By: Jasmyne Bee on Jul 11, 2017 15:31 ( Jasmyne Bee) Assessment and Plan patient was seen and examined. Agree with above assessment and plan. He was seen during dialysis. (Maurice Schultz MD) Problem Qualifiers (1) DM (diabetes mellitus): Jasmyne Bee Oct 05, 2017 11:28 Maurice Schultz MD Oct 05, 2017 15:54
--- NOTE | 2017-10-05 11:32 | HHI.FPPN ---
Subjective Remarks Patient sent to hospital last night from his SNF [facility] for hyperglycemia, hyponatremia, and vomiting. He woke up from a nap and vomited once. His blood sugars were in the 500's. Overnight he was given 2 units Novolog with meals, and 10 units of Levemir. He was given 8 units of Levemir this morning. He was also given 4 units of Novolog one time at 3:45 AM. He is also on sliding scale insulin low dose. His blood sugars are now in the mid 200' s. He reports no more vomiting or nausea overnight. He has no abdominal pain. He reports on diarrhea or constipation. He has no chest pain or shortness of breath. He reports no foot pain. His left foot is wrapped. Unwrapped foot and he has small area of dehiscence. Small amount of non-purulent drainage from his foot. Does not smell foul. He has a normal appetite this morning. Discussed discharge planning with him at length. Also discussed with nurse case management who is working on getting him back to a SNF. (Albin Guerra MD R3) Objective Vitals Vital Signs Date Time Temp Pulse Resp B/P (MAP) Pulse Ox O2 Delivery O2 Flow Rate FiO2 10/05/17 08:44 100 21 10/05/17 08:22 98.9 68 20 133/65 (87) 96 10/05/17 04:31 98.5 76 18 128/60 (82) 97 10/05/17 04:01 76 10/05/17 00:56 98.4 78 18 152/81 (104) 100 10/05/17 00:00 76 10/04/17 22:22 85 10/04/17 21:48 97.9 81 18 153/69 (97) 100 10/04/17 21:27 10/04/17 20:02 77 18 182/82 (115) 99 Room Air 10/04/17 19:29 81 18 169/78 (108) 97 Room Air 10/04/17 19:00 80 15 169/78 (108) 98 Room Air 10/04/17 18:00 82 13 177/84 (115) 99 Room Air 10/04/17 17:38 100 Room Air 10/04/17 17:31 98.5 84 18 171/75 (107) 100 Room Air 10/04/17 17:20 98.5 83 19 171/75 (517) 100 (Albin Guerra MD R3) Result Diagram: 10/05/17 0716 10/05/17 0716 Objective Remarks GENERAL: Lying in bed, in no distress SKIN: Healing incision site of left foot. Sutures in place but has a small area of dehiscence on lateral edge of incision site, with small amount of serosanguineous non-purulent drainage. No signs of infection. Right great toe with small necrotic lesion on most distal aspect but without erythema or signs of infection. Onychomycosis on multiple toes. Catheter side on right upper chest clean and dry. No signs of infection. HEENT: Normocephalic, no conjunctivitis, no nasal discharge, normal pharynx NECK: Trachea midline. No JVD or lymphadenopathy. CARDIOVASCULAR: Regular rate and rhythm. Grade 3/6 LINDA on left upper sternal border RESPIRATORY: Clear to auscultation. Breath sounds equal bilaterally. No wheezes , rales, or rhonchi. GASTROINTESTINAL: Abdomen soft, non-tender, nondistended. No hepato-splenomegaly , or palpable masses. No guarding. MUSCULOSKELETAL: Extremities without clubbing, cyanosis, or edema. No calf tenderness. NEUROLOGICAL: Awake and alert. Motor grossly within normal limits. Normal speech. Procedures Hemodialysis scheduled for 10/05/17 (Albin Guerra MD R3) A/P Assessment and Plan 57 year old male with ESRD on dialysis, uncontrolled type 1 diabetes, peripheral vascular disease, s/p transmetatarsal amputation and left leg angioplasty, and COPD. Admitted for hyponatremia, hyperglycemia, and vomiting. Discharge Planning Possibly could be discharged back to [facility] today if [facility] would accept him back, his blood sugars remain stable, his nausea/vomiting remains resolved, and he completes hemodialysis today. Working with case management to make arrangements. Will need close follow up with nephrology, podiatry, and vascular disease after discharge, as well as PCP for management of diabetes. (Albin Guerra MD R3) Attending Attestation Patient seen and examined. Case reviewed and discussed with the resident DR Bubba Guerra. Agree with plan of care as discussed with me and documented in the resident note. (Nabor Duarte MD) Problem List: (1) Electrolyte disturbance ICD Codes: E87.8 - Other disorders of electrolyte and fluid balance, not elsewhere classified Status: Acute Plan: Hx of poorly controlled DM. Presented with vomiting but this has since resolved since admission. Found to have hyperglycemia around 500s on admission that was treated with Novolog. No anion gap present but beta hydroxybutyrate slightly elevated on admission. Pt otherwise asymptomatic. Associated hyponatremia likely lower than actual due to elevated glucose. Potassium otherwise WNL. -caution with IV fluids due to renal status, encourage PO intake at this time -monitor glucose, including 3AM but without sliding scale coverage -repeat BMP q6hrs -cardiac telemetry until electrolyte disturbances have resolved. Medications: * Levemir dose decreased to 8units after initial home dose of 10units * Novolog 2 units prior to lunch and dinner * Low dose sliding scale * s/p 10 units Novolin in ED * Will increase to 10 units Levemir today (2) Osteomyelitis ICD Codes: M86.9 - Osteomyelitis, unspecified Status: Acute Plan: S/p left transmetatarsal amputation. Will require 6wks of IV abx. -Continue Unasyn 3g via Ta catheter -Wound care consulted for continued management of amputation since wound is still healing (3) COPD (chronic obstructive pulmonary disease) ICD Codes: J44.9 - Chronic obstructive pulmonary disease, unspecified Status: Chronic Plan: Continue home symbicort. -Albuterol PRN (4) ESRD on hemodialysis ICD Codes: N18.6 - End stage renal disease; Z99.2 - Dependence on renal dialysis Status: Chronic Plan: ESRD MWF -phosphorus elevated to 7.8 on admission -start sevelamer phosphate binder 1200mg TIDAC -Nephrology consulted for dialysis, will receive today (5) DM (diabetes mellitus) ICD Codes: E11.9 - Type 2 diabetes mellitus without complications Status: Chronic Plan: Please see plan under Electrolyte disturbance. Has significantly elevated A1C pointing toward poorly controlled diabetes. (6) Nutrition, metabolism, and development symptoms ICD Codes: R63.8 - Other symptoms and signs concerning food and fluid intake Plan: Fluids: PO hydration Diet: Renal and diabetic Electrolytes: see plan above DVT: SCDs, hold on chemical ppx due to recent procedure on 10/04/2017 GI PPX: not indicated. (Albin Guerra MD R3) Problem Qualifiers (1) DM (diabetes mellitus): Albin Guerra MD R3 Oct 05, 2017 11:32 Nabor Duarte MD Oct 05, 2017 16:37
[2017-10-05] MEDS: SEVELAMER CARBONATE 800 MG TAB PO SCH ×2 (12:00→17:00)
[2017-10-05] MEDS ORDERED: BACLOFEN 10 MG TAB PO PRN (12:15)
--- NOTE | 2017-10-05 12:16 | PD.WCN.NOT ---
Wound Consult Description: Consult ordered for Left foot recent amputation by Dr..Newby-Goodman VALENZUELA Communicated with: Leticia STONE G pod, Recommendation: 1) Cleanse left lower foot surgical incision with normal saline pat dry. 2) Cover with non adhering gauze dressing 3) Secure with rolled gauze or Prudencio bandage /Paper tape. 4) Apply walking boot when patient is ambulating. 5) Follow up with Surgeon and out patient wound care. 6) Perform dressing/incisional care daily till seen by surgeon. Additional Information: Patient was seen today in G pod by fiction and nonfiction writer prose and Leticia STONE for assessment of left lower foot all digit amputation. Incision presents clean intact sutures scant Serosanguineous drainage. Medial incisional area slight dehiscence noted.Incision line measures ~8cm with no foul odor nor signs and symptoms of infection. Incision cleansed with normal saline pat dry adaptic gauze applied to suture line covered with non adhering dressing and secured with rolled gauze and tape.Dressing dated and signed. Patient verbalized understanding of dressing change , signs and symptoms of infection and importance of following up appointments. Eron Dewitt [facility] Oct 05, 2017 12:16
[2017-10-05] MEDS ORDERED: INSULIN ASPART 1,000 UNITS/10 ML VIAL SQ SCH (16:00)
[2017-10-05] MEDS: ATORVASTATIN 40 MG TAB PO SCH (20:19)
[2017-10-05] MEDS: INSULIN DETEMIR 100 UNITS/ML VIAL SQ SCH (20:21)
[2017-10-06] VITALS (7 sets, daily range): BP systolic 139–169; BP diastolic 64–81; PULSE 80–98; RESP 18; TEMP 97.6–98.9; O2SAT 97–100
[2017-10-06] MEDS: INSULIN ASPART SUPPLEMENTAL SCALE SQ SCH ×2 (08:00→12:07)
[2017-10-06] MEDS ORDERED: SEVEL800 PO (08:24)
--- NOTE | 2017-10-06 08:25 | HHI.DCPOC ---
Discharge Care Plan Diagnosis: (1) Diabetes mellitus with hyperglycemia (2) Bone metabolism disorder (3) PAD (peripheral artery disease) (4) End stage renal disease (5) Dependent on hemodialysis (6) Diabetes type 1, uncontrolled (7) Anemia (8) Gas gangrene of foot Goals to Promote Your Health * To prevent worsening of your condition and complications * To maintain your health at the optimal level Directions to Meet Your Goals Take your medications as prescribed Follow your dietary instruction Follow activity as directed Keep your appointments as scheduled Take your immunizations and boosters as scheduled If your symptoms worsen call your PCP, if no PCP go to Urgent Care Center or Emergency Room Smoking is Dangerous to Your Health. Avoid second hand smoke Call the 24-hour hour crisis hotline for domestic abuse at Albin Guerra MD R3 Oct 06, 2017 08:25
[2017-10-06] MEDS: SEVELAMER CARBONATE 800 MG TAB PO SCH ×2 (08:27→12:08)
[2017-10-06] MEDS: BUDESONIDE-FORMOTEROL 160/4.5 MCG INHALER INH SCH (08:27)
[2017-10-06] MEDS: CHOLECALCIFEROL (VIT D3) 1000 UNIT TAB PO SCH (08:29)
[2017-10-06] MEDS: GABAPENTIN 100 MG CAP PO SCH ×2 (08:29→12:08)
[2017-10-06] MEDS: DULoxetine HCl DR 30 MG CAP PO SCH (08:29)
[2017-10-06] MEDS: AMPICILLIN-SULBACTAM INJ 3 GM in SODIUM CHLORIDE 0.9% INJ 100 ML IV SCH (08:29)
[2017-10-06] MEDS: INSULIN DETEMIR 100 UNITS/ML VIAL SQ SCH (08:30)
[2017-10-06] MEDS: DOCUSATE SODIUM 50 MG/SENNA 8.6 MG TAB PO SCH (08:30)
[2017-10-06] MEDS ORDERED: NOVOLOGP2 SQ (08:30)
[2017-10-06] MEDS: SODIUM CHLORIDE 0.9% FLUSH 10 ML FLUSH IV FLUSH SCH (08:31)
--- NOTE | 2017-10-06 08:34 | HHI.FF ---
Infusion Therapy Location of Infusion Therapy: [facility] Infusion Therapy Order Patient Information Patient Weight 70.25 kg Diagnosis: (1) Status post amputation (2) PAD (peripheral artery disease) (3) Osteomyelitis Coded Allergies: No Known Allergies (Verified Allergy, Unknown, 10/04/17) Administer Medication Unasyn 3 grams IV daily administered via Ta catheter Start Treatment: Oct 07, 2017 Stop Treatment: Nov 07, 2017 Additional Information Venous access: Tunneled Catheter Additional Instructions [x] Peripheral flush and dressing changes per protocol [x] Implanted port and central assembly line leader: * Implanted port: 10 ml Normal Saline followed by 5 ml Heparin 100 units/ml Heparin flush after each use and monthly to maintain. [] May leave port accessed during therapy. [] May leave peripheral site accessed for duration of therapy. [x] If patient has SOB or respiratory distress, check oxygen saturation. If less than 90% or clinical signs of respiratory distress, administer oxygen at 2 L/min. via nasal cannula and notify physician. [x] Anaphylaxis/Reaction orders: * Stop infusion. * Keep IV line open with saline flush. * Notify physician. * Monitor vital signs every 15 minutes until symptoms resolve. * Check Oxygen saturation; Oxygen at 2 L/min. via nasal cannula if less than 90% or clinical signs of respiratory distress. * Administer diphenhydramine (Benadryl) 25 mg IV STAT, (unless patient has received as pre-med). May repeat once, if necessary. * Solu-Cortef 250 mg IVP over 30-60 seconds, use 100 mg vials for each dissolution. * Epinephrine (1mg/1 ml) 0.3 mg subcutaneously or IVP now with any signs of respiratory distress. * Check with physician for new additional pre-med orders if patient is re- challenged or re-treated. [x] May remove PICC line when treatment complete, after confirming with Physician. [x] If the patient is admitted to the hospital, the ED, or transferred via [facility] , complete transfer form including medication reconciliation order sheet. Laboratory Tests Weekly Labs: BMP, Serum Phosphorus Levels Albin Guerra MD R3 Oct 06, 2017 08:34
[2017-10-06] MEDS ORDERED: UNAS3INJ IV (08:37)
[2017-10-06] MEDS: VITAMIN B CMPLX/VITC/FOLIC AC CAP PO SCH (08:43)
[2017-10-06 08:45] LABS: MEAN CELL VOLUME 82.6 FL (80.0-100.0); MEAN CORPUSCULAR HEMOGLOBIN 26.7 PG (27.0-34.0); MEAN CORPUSCULAR HGB CONC 32.3 % (32.0-36.0); PLATELET COUNT 357 TH/MM3 (150-450); RED BLOOD COUNT 3.03 MIL/MM3 (4.50-5.90); RED CELL DISTRIBUTION WIDTH 18.7 % (11.6-17.2); REVIEW FLAG FINAL; WHITE BLOOD COUNT 11.9 TH/MM3 (4.0-11.0)
[2017-10-06 09:06] LABS: BICARBONATE 28.4 MEQ/L (21.0-32.0); POTASSIUM 4.3 MEQ/L (3.5-5.1)
--- NOTE | 2017-10-06 10:51 | HHI.FPPN ---
Subjective Remarks Patient seen this morning, has no physical complaints. He is eating and has a good appetite. He reports no chest pain or shortness of breath. He has no abdominal pain. He's had no more nausea or vomiting. He reports daily normal bowel movements. He reports no changes in his foot. He's had no fevers. He had dialysis yesterday and tolerated it well. Glucoses elevated to 200's and 300's, but drops very easily with Novolog. He has very labile blood sugars at baseline with type 1 diabetes. Discussed discharge plans. He will likely return to [facility] today if all arrangements can be made. (Albin Guerra MD R3) Objective Vitals Vital Signs Date Time Temp Pulse Resp B/P (MAP) Pulse Ox O2 Delivery O2 Flow Rate FiO2 10/06/17 08:15 81 10/06/17 07:48 97.6 80 18 139/65 (89) 100 10/06/17 06:51 98.9 10/06/17 03:42 98.0 84 18 139/64 (89) 97 10/06/17 01:30 83 10/06/17 00:16 98.7 81 18 144/71 (95) 99 10/05/17 22:34 82 10/05/17 22:34 82 10/05/17 19:53 98.4 87 18 150/69 (96) 99 10/05/17 12:34 98.2 80 18 133/60 (84) 97 I/O 10/05/17 10/05/17 10/05/17 10/06/17 10/06/17 10/06/17 07:00 15:00 23:00 07:00 15:00 23:00 Intake Total 100 ml 100 ml Output Total 2700 ml Balance -2600 ml 100 ml Intake IV Total 100 ml 100 ml Output Hemodialysis 2700 ml # Voids 1 (Albin Guerra MD R3) Result Diagram: 10/06/1771910/06/17 0720 Objective Remarks GENERAL: Sitting up in bed, eating, no distress. SKIN: (Foot examined yesterday, wrapped today) Healing incision site of left foot. Sutures in place but has a small area of dehiscence on lateral edge of incision site, with small amount of serosanguineous non-purulent drainage. No signs of infection. Right great toe with small necrotic lesion on most distal aspect but without erythema or signs of infection. Onychomycosis on multiple toes. Catheter side on right upper chest clean and dry. No signs of infection. HEENT: Normocephalic, no conjunctivitis, no nasal discharge, normal pharynx NECK: Trachea midline. No JVD or lymphadenopathy. CARDIOVASCULAR: Regular rate and rhythm. AV fistula left arm. RESPIRATORY: Clear to auscultation. Breath sounds equal bilaterally. No wheezes , rales, or rhonchi. GASTROINTESTINAL: Abdomen soft, non-tender, nondistended. No hepato-splenomegaly , or palpable masses. No guarding. MUSCULOSKELETAL: Extremities without clubbing, cyanosis, or edema. No calf tenderness. NEUROLOGICAL: Awake and alert. Motor grossly within normal limits. Normal speech. Procedures Hemodialysis scheduled for 10/05/17 (Albin Guerra MD R3) A/P Assessment and Plan 57 year old male with ESRD on dialysis, uncontrolled type 1 diabetes, peripheral vascular disease, s/p transmetatarsal amputation and left leg angioplasty, and COPD. Admitted for hyponatremia, hyperglycemia, and vomiting. Discharge Planning Possibly discharge back to [facility] today if arrangements can be made. Will need close follow up with nephrology, podiatry, and vascular disease after discharge, as well as PCP for management of diabetes. He will need to continue hemodialysis MWF. He will need to continue his Unasyn 3 g IV daily administered via Ta catheter until November 07. He will be discharged with Levemir 10 units bid as well as a low dose sliding scale Novolog regimen. (Albin Guerra MD R3) Attending Attestation Patient seen and examined. Case reviewed and discussed with the resident team. Agree with plan of care as discussed with me and documented in the resident note. 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 S/p left transmetatarsal amputation. -Continue Unasyn 3g IV daily via Ta catheter until November 07 for osteomyelitis. - Continue daily dressing changes - Will need to follow up with podiatry and vascular surgery as scheduled (2) DM (diabetes mellitus) ICD Codes: E11.9 - Type 2 diabetes mellitus without complications Status: Chronic Plan: Has significantly elevated A1C pointing toward poorly controlled diabetes. - Continue Levemir 10 units bid - Continue Novolog low dose sliding scale - Continue diabetic diet - Needs close follow up with PCP to get better control of diabetes - He has very labile blood sugars that have to be monitored closely (3) ESRD on hemodialysis ICD Codes: N18.6 - End stage renal disease; Z99.2 - Dependence on renal dialysis Status: Chronic Plan: ESRD MWF. - Phosphorus elevated to 7.8 on admission, start sevelamer phosphate binder 1200mg TIDAC - Will need to continue hemodialysis MWF after discharge. (4) COPD (chronic obstructive pulmonary disease) ICD Codes: J44.9 - Chronic obstructive pulmonary disease, unspecified Status: Chronic Plan: Continue home symbicort. -Albuterol PRN (5) Nutrition, metabolism, and development symptoms ICD Codes: R63.8 - Other symptoms and signs concerning food and fluid intake Status: Acute Plan: Fluids: PO hydration Diet: Renal and diabetic Electrolytes: Continue with dialysis, monitor electrolytes DVT: SCDs (Albin Guerra MD R3) Problem Qualifiers (1) DM (diabetes mellitus): Albin Guerra MD R3 Oct 06, 2017 10:51 Jasmyne Armijo MD Oct 10, 2017 11:24
[2017-10-06] MEDS: INSULIN ASPART 1,000 UNITS/10 ML VIAL SQ SCH (12:07)
--- NOTE | 2017-10-07 17:15 | HHI.DS ---
Discharge Summary Admission Date Oct 04, 2017 at 19:56 Discharge Date: Oct 06, 2017 Admitting Diagnosis Hyperglycemia/Hyponatremia (1) Osteomyelitis Diagnosis: Principal Plan: History of diabetic neuropathy and peripheral arterial disease. S/p left transmetatarsal amputation. -Continue Unasyn 3g IV daily via Ta catheter until November 07 for osteomyelitis. - Continue daily dressing changes - Will need to follow up with podiatry and vascular surgery as scheduled ICD Codes: M86.9 - Osteomyelitis, unspecified Status: Acute (2) DM (diabetes mellitus) Diagnosis: Principal Plan: Has significantly elevated A1C pointing toward poorly controlled diabetes. - Continue Levemir 10 units bid - Continue Novolog low dose sliding scale - Continue diabetic diet - Needs close follow up with PCP to get better control of diabetes - He has very labile blood sugars that have to be monitored closely ICD Codes: E11.9 - Type 2 diabetes mellitus without complications Status: Chronic (3) ESRD on hemodialysis Diagnosis: Principal Plan: ESRD MWF. - Phosphorus elevated to 7.8 on admission, start sevelamer phosphate binder 1200mg TIDAC - Will need to continue hemodialysis MWF after discharge. ICD Codes: N18.6 - End stage renal disease; Z99.2 - Dependence on renal dialysis Status: Chronic (4) COPD (chronic obstructive pulmonary disease) Diagnosis: Secondary Plan: Continue home symbicort. -Albuterol PRN ICD Codes: J44.9 - Chronic obstructive pulmonary disease, unspecified Status: Chronic (5) Nutrition, metabolism, and development symptoms Diagnosis: Secondary Plan: Fluids: PO hydration Diet: Renal and diabetic Electrolytes: Continue with dialysis, monitor electrolytes DVT: SCDs ICD Codes: R63.8 - Other symptoms and signs concerning food and fluid intake Status: Acute Procedures Hemodialysis scheduled for 10/05/17 Brief History 57 year old male with ESRD on dialysis, uncontrolled type 1 diabetes, peripheral vascular disease, and COPD presented today due to hypoglycemia and vomiting while at his SNF. Glucose was reported to be around 500-600s. Hx significant for recent hospitalization from 09/21-10-01 due to osteomyelitis and gas gangrene of left foot that required transmetatarsal amputation. Patient was also in the hospital today 10/04 for placement of Ta catheter which was uncomplicated and he was discharged back to rehabilitation. Recommendations at that time were to have Unasyn 3 g daily for 6 weeks and to discontinue Augmentin. After placement of catheter, patient reports going back to his rehabilitation facility and taking a nap. When he woke up to go to his wound care appointment he began to vomit 3 that was only liquid as he had not eaten very much during the day due to his procedure. Reports that he did receive his insulin for the day though. Because of this vomiting, the rehabilitation facility did not take him to his wound care appointment for which he is very upset about. Outside of the vomiting episode, patient states that he feels very well and has no complaints. Denies confusion, continued vomiting, abdominal pain, chest pain, SOB. Overall he states that he feels well and has no pain of his left foot. Does report that he is able to walk on the left foot but that he is not supposed to. CBC/BMP: 10/06/17 0720 10/06/17 0720 Significant Findings Laboratory Tests Test 10/04/17 17:45 10/05/17 01:08 10/05/17 07:16 10/06/17 07:20 Red Blood Count 3.15 MIL/MM3 (4.50-5.90) 2.82 MIL/MM3 (4.50-5.90) 3.03 MIL/MM3 (4.50-5.90) Hemoglobin 8.5 GM/DL (13.0-17.0) 7.3 GM/DL (13.0-17.0) 8.1 GM/DL (13.0-17.0) Hematocrit 27.2 % (39.0-51.0) 23.1 % (39.0-51.0) 25.0 % (39.0-51.0) Mean Corpuscular Hemoglobin Concent 31.4 % (32.0-36.0) 31.6 % (32.0-36.0) Red Cell Distribution Width 19.1 % (11.6-17.2) 18.5 % (11.6-17.2) 18.7 % (11.6-17.2) Neutrophils (%) (Auto) 82.3 % (16.0-70.0) Lymphocytes (%) (Auto) 7.8 % (9.0-44.0) Monocytes (%) (Auto) 8.4 % (0.0-8.0) 12.3 % (0.0-8.0) Neutrophils # (Auto) 8.1 TH/MM3 (1.8-7.7) 7.8 TH/MM3 (1.8-7.7) Lymphocytes # (Auto) 0.8 TH/MM3 (1.0-4.8) Blood Urea Nitrogen 51 MG/DL (7-18) 61 MG/DL (7-18) 64 MG/DL (7-18) 45 MG/DL (7-18) Creatinine 8.80 MG/DL (0.60-1.30) 9.07 MG/DL (0.60-1.30) 9.97 MG/DL (0.60-1.30) 7.79 MG/DL (0.60-1.30) Random Glucose 533 MG/DL (74-106) 475 MG/DL (74-106) 286 MG/DL (74-106) 293 MG/DL (74-106) Albumin 2.7 GM/DL (3.4-5.0) 2.2 GM/DL (3.4-5.0) Phosphorus Level 7.8 MG/DL (2.5-4.9) 8.0 MG/DL (2.5-4.9) Alkaline Phosphatase 349 U/L (45-117) 331 U/L (45-117) Aspartate Amino Transf (AST/SGOT) 38 U/L (15-37) 80 U/L (15-37) Sodium Level 130 MEQ/L (136-145) 132 MEQ/L (136-145) 134 MEQ/L (136-145) Chloride Level 90 MEQ/L (98-107) 95 MEQ/L (98-107) 96 MEQ/L (98-107) 97 MEQ/L (98-107) Estimat Glomerular Filtration Rate 8 ML/MIN (>89) 7 ML/MIN (>89) 7 ML/MIN (>89) 9 ML/MIN (>89) Serum Osmolality 327 MOSM/KG (275-295) B-Hydroxybutyrate 1.09 MMOL/L (0.00-0.39) Potassium Level 5.5 MEQ/L (3.5-5.1) Iron Level 43 MCG/DL (65-175) White Blood Count 11.6 TH/MM3 (4.0-11.0) 11.9 TH/MM3 (4.0-11.0) Mean Corpuscular Hemoglobin 25.9 PG (27.0-34.0) 26.7 PG (27.0-34.0) Eosinophils (%) (Auto) 5.5 % (0.0-4.0) Monocytes # (Auto) 1.4 TH/MM3 (0-0.9) Eosinophils # (Auto) 0.6 TH/MM3 (0-0.4) PE at Discharge GENERAL: Sitting up in bed, eating, no distress. SKIN: (Foot examined yesterday, wrapped today) Healing incision site of left foot. Sutures in place but has a small area of dehiscence on lateral edge of incision site, with small amount of serosanguineous non-purulent drainage. No signs of infection. Right great toe with small necrotic lesion on most distal aspect but without erythema or signs of infection. Onychomycosis on multiple toes. Catheter side on right upper chest clean and dry. No signs of infection. HEENT: Normocephalic, no conjunctivitis, no nasal discharge, normal pharynx NECK: Trachea midline. No JVD or lymphadenopathy. CARDIOVASCULAR: Regular rate and rhythm. AV fistula left arm. RESPIRATORY: Clear to auscultation. Breath sounds equal bilaterally. No wheezes , rales, or rhonchi. GASTROINTESTINAL: Abdomen soft, non-tender, nondistended. No hepato-splenomegaly , or palpable masses. No guarding. MUSCULOSKELETAL: Extremities without clubbing, cyanosis, or edema. No calf tenderness. NEUROLOGICAL: Awake and alert. Motor grossly within normal limits. Normal speech. Hospital Course 57 year old male with ESRD on dialysis, uncontrolled type 1 diabetes, peripheral vascular disease, and COPD presented with left foot infection at his last hospital admission on September 21. He was status post toe amputation in July 2017. He was given IV vancomycin and Zosyn starting on 09/21 for the infection. Infectious disease, vascular surgery, podiatry, and nephrology were all consulted during his last hospital visit to help manage the case. His pain was effectively controlled with gabapentin, Dilaudid, and Tylenol. He had Aortogram with left lower extremity angiograms on 09/24. He has left posterior tibial artery angioplasty with a 3 mm balloon and right common femoral artery angio-seal on 09/24/17. He had left foot transmetatarsal amputation with findings of gas gangrene infection on 09/26/17. He had left foot debridement and irrigation with delayed primary closure of the transmetatarsal amputation on 09/28/17. He was discharged to [facility] on October 01 where he was at before to undergo rehab and physical therapy. He returned to [place] on placement of a Ta catheter for administration of Unasyn 3 g IV daily for 6 weeks after his surgery to cover him for osteomyelitis. He was covered with oral Augmentin until he was able to get the Ta catheter. He returned to the hospital later that day on the with hyperglycemia and hyponatremia along with nausea and vomiting. He as not in DKA. He was treated with insulin with rapid improvement of nausea/vomiting and blood sugars. He was sent back to [facility] on 10/06. He is to receive Unasyn IV via the Ta catheter until November 07. He will follow up with vascular surgery and podiatry for his foot. He will continue to receive hemodialysis on [facility] for his ESRD. He will take Levemir 10 units bid along with a low dose sliding scale of Novolog for control of his blood glucoses. Pt Condition on Discharge: Stable Discharge Disposition: Discharge to SNF Discharge Instructions DIET: Follow Instructions for: Diabetic Diet Activities you can perform: Partial Weight Bearing Other Activity Instructions: Wear walking boot when ambulating Follow up Referrals: Nephrology - 1 Week PCP Follow-up - 1 Week Podiatry - 2-3 Days Vascular Surgery - 2 Weeks with Randy Ortiz MD New Medications: Ampicillin-Sulbactam Inj (Unasyn Inj) 3 Gm Vial 3 GM IV DAILY for Infection, #32 BAG 0 Refills Insulin Aspart Inj (Novolog Inj) 1,000 Unit/10 Ml Vial 1-9 UNITS SQ ACHS for Blood Sugar Management, #10 ML 0 Refills sugars less than 70,(0)units; sugars 150-199,(1) unit; sugars 200-249,(3) units; sugars 250-299,(5) units; sugars 300-349,(7) units; sugars greater than 349,(9) units Sevelamer Carbonate (Renvela) 800 Mg Tab 1600 MG PO TIDAC, #180 TAB Continued Medications: Atorvastatin (Atorvastatin) 40 Mg Tab 40 MG PO HS for Cholesterol Management, #30 TAB 0 Refills B-Complex W/ C-Zn & Folic Acid (Dialyvite 800/Zinc 15) 1 Tab 1 TAB DAILY Baclofen (Baclofen) 10 Mg Tab 10 MG PO DAILY PRN for hiccups, #30 TAB 0 Refills Budesonide-Formoterol Inh (Symbicort Inh) 160-4.5 Mcg/Act Aero 1 PUFF INH Q12HR, #1 INHALER 2 Refills Cholecalciferol (Vitamin D3) 1,000 Unit Cap 1000 UNITS PO DAILY for Nutritional Supplement, #1 BOTTLE [address] (Duloxetine DR) 30 Mg Capdr 30 MG PO DAILY, #30 CAP 0 Refills Gabapentin (Gabapentin) 100 Mg Cap 100 MG PO TID, #90 CAP Hydrocodone-Acetaminophen (Hydrocodone-Acetaminophen) 5-325 mg Tab 1-2 TAB PO Q4HR PRN for PAIN GREATER THAN 5, #60 TAB Insulin Detemir Inj (Levemir Inj) 1,000 unit/ 10 ML Vial 10 UNITS SQ Q12HR, #1 VIAL Do not mix with any other Insulin. Albin Guerra MD R3 Oct 07, 2017 17:14
== END 2017-10-06 13:31 | DRG 637 ==
LOC: NEPE 17:10 → NEDA 19:56 → OBSVTOIN 19:56 → INTOOBSV 20:15 → OBSVTOIN 20:15 → NEPGCP 21:34
PROVIDERS: ADMIT Family Medicine; ATTEND Family Medicine
PROC: 5A1D70Z Performance of Urinary Filtration, Intermittent, Less than 6 Hours Per Day (ICD-10-PCS; principal; 2017-10-05)
DX: E10.65 Type 1 diabetes mellitus with hyperglycemia (principal); N18.6 End stage renal disease; I12.0 Hypertensive chronic kidney disease with stage 5 chronic kidney disease or end stage renal disease; E10.22 Type 1 diabetes mellitus with diabetic chronic kidney disease; L03.116 Cellulitis of left lower limb; I82.509 Chronic embolism and thrombosis of unspecified deep veins of unspecified lower extremity; M86.9 Osteomyelitis, unspecified; E87.1 Hypo-osmolality and hyponatremia; T87.81 Dehiscence of amputation stump; J44.9 Chronic obstructive pulmonary disease, unspecified; D64.9 Anemia, unspecified; E78.5 Hyperlipidemia, unspecified; R74.8 Abnormal levels of other serum enzymes; D72.829 Elevated white blood cell count, unspecified; E10.51 Type 1 diabetes mellitus with diabetic peripheral angiopathy without gangrene; E10.40 Type 1 diabetes mellitus with diabetic neuropathy, unspecified; Z99.2 Dependence on renal dialysis; Z89.429 Acquired absence of other toe(s), unspecified side; Z79.4 Long term (current) use of insulin; Z87.891 Personal history of nicotine dependence; Y83.5 Amputation of limb(s) as the cause of abnormal reaction of the patient, or of later complication, without mention of misadventure at the time of the procedure; Y92.129 Unspecified place in nursing home as the place of occurrence of the external cause
CPT/HCPCS: 71010; 80048; 80053; 82010; 82948; 83540; 83735; 83930; 84100; 85025; 85027; 90935; 93005; 96374; J0295; J1815; Q4081

== ENCOUNTER 2017-10-16 03:35 | Inpatient (IN) | payer MEDICARE, MEDICAID ==
[2017-10-16] VITALS (13 sets, daily range): BP systolic 121–174; BP diastolic 61–87; PULSE 85–95; RESP 13–20; TEMP 97.8–98.5; O2SAT 94–100
[~2017-10-16] VITALS: Ht 182.9 cm; Wt 66.8 kg
[~2017-10-16 03:35] MED LIST changes: -AUGM500T7 PO; +BACL10TA PO; +NOVOLOGP2 SQ; -OXYC1TAB63 PO; +SEVEL800 PO; +UNAS3INJ IV
--- NOTE | 2017-10-16 03:57 | PD ---
HPI Chief Complaint: Altered Mental Status Time Seen by Provider: 03:38 Travel History International Travel<30 days: No Contact w/Intl Traveler<30days: No Traveled to known affect area: No History of Present Illness HPI 57 years old male was brought in from local assisted rehabilitation facility for altered mental status. Patient has history of end-stage renal disease on dialysis, diabetes, CAD, COPD. Patient was admitted to [facility] October 04 discharged October 06 with history of osteomyelitis status post transmetatarsal amputation. Patient has a Ta catheter in place for continued Unasyn 3 g IV daily until November 07. Patient supposed to have dialysis today however did not have it done because of transportation. Patient supposed to have dialysis Sunday and Sunday. Patient was found to have altered mental status this evening at the rehabilitation facility and transported by EMS to [facility] for evaluation. Patient has confusion and unable to provide much information. PFSH Past Medical History Hx Anticoagulant Therapy: Yes Arthritis: No Asthma: No Autoimmune Disease: No Blood Disorders: No Anxiety: No Depression: Yes Heart Rhythm Problems: Yes (MURMUR) Cancer: No Cardiovascular Problems: Yes High Cholesterol: Yes Chemotherapy: No Chest Pain: No Congestive Heart Failure: No COPD: Yes Cerebrovascular Accident: No Diabetes: Yes Dialysis: Yes (M,W,F) Diminished Hearing: No Endocrine: Yes Gastrointestinal Disorders: No GERD: No Genitourinary: Yes Headaches: Yes Hepatitis: Yes Hiatal Hernia: No Hypertension: Yes Immune Disorder: No Implanted Vascular Access Dvce: Yes Kidney Stones: No Musculoskeletal: Yes Neurologic: No Psychiatric: No Reproductive: No Respiratory: Yes Immunizations Current: Yes Radiation Therapy: No Renal Failure: Yes (stage V) Seizures: No Sickle Cell Disease: No Sleep Apnea: No Thyroid Disease: No Ulcer: No Past Surgical History Abdominal Surgery: No AICD: No Arteriovenous Shunt: Yes (lue av fistula) Cardiac Surgery: No Ear Surgery: No Endocrine Surgery: No Eye Surgery: No Genitourinary Surgery: No Gynecologic Surgery: No Insulin Pump: No Joint Replacement: No Oral Surgery: No Pacemaker: No Thoracic Surgery: No Other Surgery: Yes (LT ARM FISTULA, LEFT TOES AMPUTATION (ALL TOES)) Social History Alcohol Use: No Tobacco Use: Yes Substance Use: No Allergies-Medications (Allergen,Severity, Reaction): Coded Allergies: No Known Allergies (Verified Allergy, Unknown, 10/16/17) Reported Meds & Prescriptions Reported Meds & Active Scripts Active Unasyn Inj (Ampicillin-Sulbactam Inj) 3 Gm Vial 3 Gm IV DAILY Novolog Inj (Insulin Aspart) 1,000 Unit/10 Ml Vial 1-9 Units SQ ACHS sugars less than 70,(0)units; sugars 150-199,(1) unit; sugars 200-249,(3) units; sugars 250-299,(5) units; sugars 300-349,(7) units; sugars greater than 349,(9) units Renvela (Sevelamer Carbonate) 800 Mg Tab 1,600 Mg PO TIDAC Gabapentin 100 Mg Cap 100 Mg PO TID Hydrocodone-Acetaminophen 5-325 mg Tab 1-2 Tab PO Q4HR PRN Symbicort Inh (Budesonide/Formoterol Fumarate) 160-4.5 Mcg/Act Aero 1 Puff INH Q12HR Duloxetine DR (Duloxetine HCl) 30 Mg Capdr 30 Mg PO DAILY Atorvastatin (Atorvastatin Calcium) 40 Mg Tab 40 Mg PO HS Reported Levemir Flextouch Pen Inj (Insulin Detemir) 300 unit/3 ML Pen 15 Units SQ DAILY Levemir Flextouch Pen Inj (Insulin Detemir) 300 unit/3 ML Pen 12 Units SQ DAILY Baclofen 10 Mg Tab 10 Mg PO DAILY PRN Vitamin D3 (Cholecalciferol) 1,000 Unit Cap 1,000 Units PO DAILY Dialyvite 800/Zinc 15 (B-Complex W/ C-Zn & Folic Acid) 1 Tab 1 Tab DAILY Review of Systems General / Constitutional: No: Fever Eyes: No: Visual changes HENT: No: Headaches Cardiovascular: No: Chest Pain or Discomfort Respiratory: No: Shortness of Breath Gastrointestinal: No: Abdominal Pain Genitourinary: No: Dysuria Musculoskeletal: No: Pain Skin: No Rash Neurologic: No: Weakness Psychiatric: No: Depression Endocrine: No: Polydipsia Hematologic/Lymphatic: No: Easy Bruising Physical Exam Narrative GENERAL: Well-nourished, well-developed patient. SKIN: Focused skin assessment warm/dry. HEAD: Normocephalic. EYES: No scleral icterus. No injection or drainage. NECK: Supple, trachea midline. No JVD or lymphadenopathy. CARDIOVASCULAR: Regular rate and rhythm without murmurs, gallops, or rubs. RESPIRATORY: Breath sounds equal bilaterally. No accessory muscle use. GASTROINTESTINAL: Abdomen soft, non-tender, nondistended. MUSCULOSKELETAL: No cyanosis, or edema. BACK: Nontender without obvious deformity. No CVA tenderness. Examination of left foot stump reviews sutures in place. No discharge noted. Data Data Last Documented VS Vital Signs Date Time Temp Pulse Resp B/P (MAP) Pulse Ox O2 Delivery O2 Flow Rate FiO2 10/16/17 06:00 85 14 142/75 (97) 97 Room Air 10/16/17 03:45 97.8 Orders Orders Electrocardiogram (10/16/17 03:48) Complete Blood Count With Diff (10/16/17 03:48) Comprehensive Metabolic Panel (10/16/17 03:48) Prothrombin Time / Inr (Pt) (10/16/17 03:48) Act Partial Throm Time (Ptt) (10/16/17 03:48) Blood Culture (10/16/17 03:48) Magnesium (Mg) (10/16/17 03:48) Ammonia (10/16/17 03:48) Phosphorus (Po4) (10/16/17 03:48) Chest, Single Ap (10/16/17 03:48) Iv Access Insert/Monitor (10/16/17 03:48) Ecg Monitoring (10/16/17 03:48) Oximetry (10/16/17 03:48) Lactic Acid (10/16/17 03:58) Cefepime Inj (Maxipime Inj) (10/16/17 06:30) Azithromycin Inj (Zithromax Inj) (10/16/17 06:30) Labs Laboratory Tests Test 10/16/17 04:05 10/16/17 04:20 White Blood Count 10.7 TH/MM3 Red Blood Count 3.23 MIL/MM3 Hemoglobin 8.7 GM/DL Hematocrit 27.0 % Mean Corpuscular Volume 83.6 FL Mean Corpuscular Hemoglobin 26.9 PG Mean Corpuscular Hemoglobin Concent 32.2 % Red Cell Distribution Width 19.5 % Platelet Count 267 TH/MM3 Mean Platelet Volume 9.5 FL Neutrophils (%) (Auto) 79.9 % Lymphocytes (%) (Auto) 7.7 % Monocytes (%) (Auto) 7.1 % Eosinophils (%) (Auto) 3.9 % Basophils (%) (Auto) 1.4 % Neutrophils # (Auto) 8.6 TH/MM3 Lymphocytes # (Auto) 0.8 TH/MM3 Monocytes # (Auto) 0.8 TH/MM3 Eosinophils # (Auto) 0.4 TH/MM3 Basophils # (Auto) 0.1 TH/MM3 CBC Comment DIFF FINAL Differential Comment Prothrombin Time 12.6 SEC Prothromb Time International Ratio 1.2 RATIO Activated Partial Thromboplast Time 26.4 SEC Blood Urea Nitrogen 82 MG/DL Creatinine 11.24 MG/DL Random Glucose 108 MG/DL Total Protein 7.1 GM/DL Albumin 2.5 GM/DL Calcium Level 8.8 MG/DL Phosphorus Level 8.1 MG/DL Magnesium Level 2.2 MG/DL Alkaline Phosphatase 264 U/L Aspartate Amino Transf (AST/SGOT) 30 U/L Alanine Aminotransferase (ALT/SGPT) 41 U/L Total Bilirubin 0.7 MG/DL Sodium Level 142 MEQ/L Potassium Level 4.9 MEQ/L Chloride Level 104 MEQ/L Carbon Dioxide Level 24.1 MEQ/L Anion Gap 14 MEQ/L Estimat Glomerular Filtration Rate 6 ML/MIN Ammonia 16 MCMOL/L Lactic Acid Level 1.0 mmol/L MDM Medical Decision Making Medical Screen Exam Complete: Yes Emergency Medical Condition: Yes Interpretation(s) Last Impressions Chest X-Ray 10/16/17 0348 Signed Impressions: Service Date/Time: Monday, October 16, 2017 04:06 - CONCLUSION: New left lower lobe infiltrate. Julio Blanco Jr., MD 6:15 AM. CBC WBC 10.7. Hemoglobin 8.7 hematocrit 27.0. 79 neutrophil. BUN 82. Creatinine 11.24. Glucose 108. At the acid 1.0. Alkaline phosphatase 264. Ammonia 16. Differential Diagnosis Differential diagnosis including electrolyte imbalance, TIA, CVA, dehydration, sepsis. Narrative Course 57 years old male with altered mental status. History of osteomyelitis status post transmetatarsal amputation and on Unasyn IV daily. Patient also has history of end-stage renal disease on dialysis Sunday and Sunday. Patient did not have dialysis this morning secondary to problem with transportation. Cefepime 1 g IV. Zithromax 500 mg IV. Diagnosis Primary Impression: Pneumonia Qualified Codes: J18.1 - Lobar pneumonia, unspecified organism Additional Impression: Foot osteomyelitis, left Qualified Codes: M86.9 - Osteomyelitis, unspecified Admitting Information Admitting Physician Requests: Admit Ganesh Bland MD Oct 16, 2017 03:57
[2017-10-16] MEDS ORDERED: INSU1INJ5 SQ (04:38)
[2017-10-16 04:50] LABS: INTERNATIONAL NORMALIZED RATIO 1.2 RATIO; PROTHROMBIN TIME - PATIENT 12.6 SEC (9.8-11.6)
[2017-10-16 04:52] LABS: AUTOMATED NEUTROPHIL # 8.6 TH/MM3 (1.8-7.7); BASOPHIL # 0.1 TH/MM3 (0-0.2); BASOPHIL % 1.4 % (0.0-2.0); EOSINOPHIL # 0.4 TH/MM3 (0-0.4); EOSINOPHIL % 3.9 % (0.0-4.0); HEMOGLOBIN 8.7 GM/DL (13.0-17.0); LYMPH % 7.7 % (9.0-44.0); LYMPHOCYTE # 0.8 TH/MM3 (1.0-4.8); MEAN CELL VOLUME 83.6 FL (80.0-100.0); MEAN CORPUSCULAR HEMOGLOBIN 26.9 PG (27.0-34.0); MEAN CORPUSCULAR HGB CONC 32.2 % (32.0-36.0); MEAN PLATELET VOLUME 9.5 FL (7.0-11.0); MONO % 7.1 % (0.0-8.0); MONOCYTE # 0.8 TH/MM3 (0-0.9); NEUT % 79.9 % (16.0-70.0); PLATELET COUNT 267 TH/MM3 (150-450); RED BLOOD COUNT 3.23 MIL/MM3 (4.50-5.90); RED CELL DISTRIBUTION WIDTH 19.5 % (11.6-17.2); WHITE BLOOD COUNT 10.7 TH/MM3 (4.0-11.0)
--- NOTE | 2017-10-16 04:55 | RADRPT ---
EXAM DATE/TIME: 10/16/2017 04:06 [place] COMPARISON: CHEST SINGLE AP, October 04, 2017, 17:51. INDICATIONS : Shortness of breath, altered mental status. MEDICAL HISTORY : Hypertension. Chronic obstructive pulmonary disease. SURGICAL HISTORY : None. ENCOUNTER: Initial ACUITY: 1 day PAIN SCORE: Non-responsive. LOCATION: Bilateral chest FINDINGS: Single portable frontal view the chest shows development of an infiltrate within the retrocardiac lef t lung base. Right lung is clear. No effusions. Heart is at the upper limits of normal in terms of si ze. Right-sided central line. CONCLUSION: New left lower lobe infiltrate. Julio Blanco Jr., MD on October 16, 2017 at 4:51 Board Certified Radiologist. This report was verified electronically.
[2017-10-16 05:04] LABS: ALBUMIN 2.5 GM/DL (3.4-5.0); AST (GOT) 30 U/L (15-37); BICARBONATE 24.1 MEQ/L (21.0-32.0); BLOOD UREA NITROGEN 82 MG/DL (7-18); CALCIUM 8.8 MG/DL (8.5-10.1); CHLORIDE 104 MEQ/L (98-107); GLOMERULAR FILTRATION RATE 6 ML/MIN (>89); GLUCOSE,RANDOM 108 MG/DL (74-106); MAGNESIUM 2.2 MG/DL (1.5-2.5); SODIUM (NA) 142 MEQ/L (136-145)
[2017-10-16 05:05] LABS: ALT (GPT) 41 U/L (12-78); PHOSPHORUS 8.1 MG/DL (2.5-4.9)
[2017-10-16 05:07] LABS: ALKALINE PHOSPHATASE 264 U/L (45-117); TOTAL BILIRUBIN ADULT 0.7 MG/DL (0.2-1.0); TOTAL PROTEIN 7.1 GM/DL (6.4-8.2)
[2017-10-16 05:12] LABS: CREATININE 11.24 MG/DL (0.60-1.30)
[2017-10-16] MEDS ORDERED: CEFEPIME INJ 1,000 MG in SODIUM CHLORIDE 0.9% INJ 100 ML IV ONE (06:30)
[2017-10-16] MEDS ORDERED: AZITHROMYCIN INJ 500 MG in SODIUM CHLOR 0.9% 250 ML INJ 250 ML IV ONE (06:30)
--- NOTE | 2017-10-16 07:22 | HHI.HP ---
[facility] Service Family Medicine Primary Care Physician Angella Joshua , R3 MD Alyssa Admission Diagnosis Diagnoses: International Travel<30 Days: No Contact w/Intl Traveler<30days: No Known Affected Area: No History of Present Illness 57 year old male with a history of recent transmetatarsal amputation of the left foot and osteomyelitis, receiving IV Unasyn long-term, type 1 diabetes, and ESRD on hemodialysis presents with acute delirium. Per patient he developed coughing and sputum production yesterday. He's also been having nausea and vomiting, unclear just how many times. He has diffuse mild abdominal pain that is non-focal. He presented with mild lethargy and confusion. He is oriented but takes extra time to think of the answer to questions, and you have to continually try to get his attention to get him to focus. Per patient, he has not felt febrile and is not having night sweats. He missed his hemodialysis session yesterday due to acute illness. He is on a MWF schedule. He also reports runny nose and a mild sore throat. He has a decreased appetite. He has been sleeping a lot. He reports no new medications. He has no headache, dizziness, blurry vision, chest pain, calf swelling or tenderness. (Albin Guerra MD R3) Review of Systems Constitutional: COMPLAINS OF: Change in appetite, DENIES: Fever, Weight gain, Weight loss, Dizziness, Night Sweats Endocrine: DENIES: Polydipsia, Polyuria, Polyphagia Eyes: DENIES: Diplopia, Vision loss, Double Vision Ears, nose, mouth, throat: COMPLAINS OF: Throat pain, Running Nose Respiratory: COMPLAINS OF: Cough, Sputum production, DENIES: Wheezing, Hemoptysis, Shortness of breath Cardiovascular: DENIES: Chest pain, Syncope, Lower Extremity Edema Gastrointestinal: COMPLAINS OF: Abdominal pain, Nausea, Vomiting, DENIES: Black stools, Bloody stools, Diarrhea Musculoskeletal: DENIES: Neck pain Hematologic/lymphatic: DENIES: Lymphadenopathy Neurologic: DENIES: Headache, Localized weakness, Seizures, Speech Problems Psychiatric: COMPLAINS OF: Confusion (Albin Guerra MD R3) Past Family Social History Past Medical History ESRD, on dialysis * AV fistula on left arm Diabetes Mellitus type 1 HTN Anemia of chronic kidney disease HLD COPD Living at [facility] Past Surgical History AV fistula left foot transmetatarsal amputation 09/2017 Ta catheter IJ line Reported Medications Reported Meds & Active Scripts Active Unasyn Inj (Ampicillin-Sulbactam Inj) 3 Gm Vial 3 Gm IV DAILY Novolog Inj (Insulin Aspart) 1,000 Unit/10 Ml Vial 1-9 Units SQ ACHS sugars less than 70,(0)units; sugars 150-199,(1) unit; sugars 200-249,(3) units; sugars 250-299,(5) units; sugars 300-349,(7) units; sugars greater than 349,(9) units Renvela (Sevelamer Carbonate) 800 Mg Tab 1,600 Mg PO TIDAC Gabapentin 100 Mg Cap 100 Mg PO TID Hydrocodone-Acetaminophen 5-325 mg Tab 1-2 Tab PO Q4HR PRN Symbicort Inh (Budesonide/Formoterol Fumarate) 160-4.5 Mcg/Act Aero 1 Puff INH Q12HR Duloxetine DR (Duloxetine HCl) 30 Mg Capdr 30 Mg PO DAILY Atorvastatin (Atorvastatin Calcium) 40 Mg Tab 40 Mg PO HS Reported Levemir Flextouch Pen Inj (Insulin Detemir) 300 unit/3 ML Pen 15 Units SQ DAILY Levemir Flextouch Pen Inj (Insulin Detemir) 300 unit/3 ML Pen 12 Units SQ DAILY Baclofen 10 Mg Tab 10 Mg PO DAILY PRN Vitamin D3 (Cholecalciferol) 1,000 Unit Cap 1,000 Units PO DAILY Dialyvite 800/Zinc 15 (B-Complex W/ C-Zn & Folic Acid) 1 Tab 1 Tab DAILY (Albin Guerra MD R3) Allergies: Coded Allergies: No Known Allergies (Verified Allergy, Unknown, 10/16/17) Active Ordered Medications Inpatient Medications Acetaminophen (Tylenol) 650 mg UNSCH PRN PO for headach, pain, temp > 101F; Start 10/16/17 at 09:45; Status UNV Albumin Human 100 ml @ 60 mls/hr UNSCH PRN IV WITH DIALYSIS; Start 10/16/17 at 09:45; Status UNV Ampicillin Sodium/ Sulbactam Sodium (Unasyn Inj) 3 gm DAILY IV ; Start 10/16/17 at 09:30; Status UNV Atorvastatin Calcium (Lipitor) 40 mg HS PO ; Start 10/16/17 at 21:00; Status UNV Azithromycin (Zithromax) 500 mg Q24H PO ; Start 10/17/17 at 07:00 Azithromycin 500 mg/Sodium Chloride 250 ml @ 250 mls/hr ONCE ONCE IV Last administered on 10/16/17at 06:39; Start 10/16/17 at 06:30; Stop 10/16/17 at 07:29; Status DC Baclofen (Lioresal) 10 mg DAILY PRN PO hiccups; Start 10/16/17 at 09:30; Status UNV Bisacodyl (Dulcolax Supp) 10 mg DAILY PRN RECTAL SEVERE CONSITIPATION; Start at 07:30 Budesonide/ Formoterol Fumarate (Symbicort 160-4.5 Mcg Inh) 1 puff Q12HR INH ; Start 10/16/17 at 09:30; Status UNV Cefepime HCl 1000 mg/Sodium Chloride 100 ml @ 200 mls/hr DAILY IV ; Start at 08:00 Cholecalciferol (Vitamin D3) 1,000 units DAILY PO ; Start 10/17/17 at 09:00; Status UNV Clonidine (Catapres) 0.1 mg UNSCH PRN PO for BP > 180/100 X 2 readings; Start 10/16/17 at 09:45; Status UNV Dextrose (D50w (Vial) Inj) 50 ml UNSCH PRN IV PUSH HYPOGLYCEMIA-SEE COMMENTS; Start 10/16/17 at 09:30; Status UNV Diphenhydramine HCl (Benadryl) 25 mg UNSCH PRN PO for hives/itching/anaphylaxis ; Start 10/16/17 at 09:45; Status UNV Duloxetine HCl (Cymbalta Dr) 30 mg DAILY PO ; Start 10/17/17 at 09:00; Status UNV Epoetin Marco A (Epogen Inj) 10,000 units UNSCH PRN IV PUSH WITH DIALYSIS; Start 10/16/17 at 09:45; Status UNV Gabapentin (Neurontin) 100 mg TID PO ; Start 10/16/17 at 13:00; Status UNV Gelatin (Gelfoam 12 Mm/7 Mm Top) 1 foam UNSCH PRN TOP SEE LABEL COMMENTS; Start 10/16/17 at 09:45; Status UNV Gentamicin Sulfate (Gentamicin (Dialysis) Inj) 20 mg UNSCH PRN OTHER WITH DIALYSIS; Start 10/16/17 at 09:45; Status UNV Glucagon (Glucagon Inj) 1 mg UNSCH PRN OTHER HYPOGLYCEMIA-SEE COMMENTS; Start 10/16/17 at 09:30; Status UNV Heparin Sodium (Porcine) (Heparin Inj) UNSCH PRN .XX WITH DIALYSIS; Start 10/16 at 09:45; Status UNV Insulin Aspart (NovoLOG SUPPLEMENTAL SCALE) 1 ACHS SLIDING SCALE SQ ; Start 10/16/17 at 12:00; Status UNV Lactulose (Lactulose Liq) 30 ml DAILY PRN PO SEVERE CONSITIPATION; Start at 07:30 Magnesium Hydroxide (Milk Of Magnesia Liq) 30 ml Q12H PRN PO Mild constipation ; Start 10/16/17 at 07:30 Mannitol (Mannitol Inj) 12.5 gm UNSCH PRN IV WITH DIALYSIS; Start 10/16/17 at 09 :45; Status UNV Naloxone HCl (Narcan Inj) 0.4 mg UNSCH PRN IV PUSH SEE LABEL COMMENTS; Start at 07:30 Nitroglycerin (Nitrostat Sl) 0.4 mg UNSCH PRN SL CHEST PAIN; Start 10/16/17 at 09:45; Status UNV Non-Formulary Medication 1 tab DAILY .ROUTE ; Start 10/17/17 at 09:00; Status UNV Ondansetron HCl (Zofran Inj) 4 mg UNSCH PRN IV PUSH WITH DIALYSIS; Start at 09:45; Status UNV Senna/Docusate Sodium (Odette-Colace) 1 tab BID PO ; Start 10/16/17 at 09:00 Sennosides (Senokot) 17.2 mg Q12H PRN PO Moderate constipation; Start 10/16/17 at 07:30 Sevelamer Carbonate (Renvela) 1,600 mg TIDAC PO ; Start 10/16/17 at 12:00; Status UNV Sodium Chloride (NS Flush) 5 ml UNSCH PRN IV FLUSH WITH DIALYSIS; Start at 09:45; Status UNV Family History Mother: from ovarian cancer Father: from heart disease. Had been on dialysis 2 brothers both have diabetes but late in their life Social History Transferred here from [facility] On disability due to dialysis Alcohol: None except for special occasions Smokin/3ppd for 30+yrs, decreased to 1-2cigs per day but now quit x 2mths Illicit: Use to smoke marijuana. Quit >20yrs but does admit to having a joint every once in a while. but now states he has completely stopped (Albin Guerra MD R3) Physical Exam Vital Signs Vital Signs Date Time Temp Pulse Resp B/P (MAP) Pulse Ox O2 Delivery O2 Flow Rate FiO2 10/16/17 06:00 85 14 142/75 (97) 97 Room Air 10/16/17 05:00 88 14 145/70 (95) 94 Room Air 10/16/17 03:52 14 100 Room Air 10/16/17 03:45 97.8 92 14 130/87 (101) 100 Physical Exam General: Lying in bed, somewhat lethargic and confused, oriented X3 Skin: Left foot s/p transmetatarsal amputation, sutures in place, area of dehiscence of left foot with serosanguineous non-purulent drainage, no surrounding cellulitis or tenderness to palpation, does not appear acutely infected. Site of Ta Catheter insertion appears clean and dry, not tender to palpation, no surrounding erythema. HEENT: Normocephalic, no conjunctivitis, no nasal discharge, normal pharynx Neck: No thyromegaly or lymphadenopathy CV: RRR, no murmurs, rubs, or gallops, pulses intact, normal cap refill. AV fistula with palpable bruit. Lungs: CTAB Abdomen: Soft, nontender, nondistended, normal bowel sounds Ext: No swelling, left foot amputation as above Neuro: Awake, somewhat lethargic, follows commands, no focal neurological deficits, mild confusion, oriented but requires time to answer questions, gets agitated easily Laboratory Laboratory Tests Test 10/16/17 04:05 10/16/17 04:20 White Blood Count 10.7 Red Blood Count 3.23 Hemoglobin 8.7 Hematocrit 27.0 Mean Corpuscular Volume 83.6 Mean Corpuscular Hemoglobin 26.9 Mean Corpuscular Hemoglobin Concent 32.2 Red Cell Distribution Width 19.5 Platelet Count 267 Mean Platelet Volume 9.5 Neutrophils (%) (Auto) 79.9 Lymphocytes (%) (Auto) 7.7 Monocytes (%) (Auto) 7.1 Eosinophils (%) (Auto) 3.9 Basophils (%) (Auto) 1.4 Neutrophils # (Auto) 8.6 Lymphocytes # (Auto) 0.8 Monocytes # (Auto) 0.8 Eosinophils # (Auto) 0.4 Basophils # (Auto) 0.1 CBC Comment DIFF FINAL Differential Comment Prothrombin Time 12.6 Prothromb Time International Ratio 1.2 Activated Partial Thromboplast Time 26.4 Blood Urea Nitrogen 82 Creatinine 11.24 Random Glucose 108 Total Protein 7.1 Albumin 2.5 Calcium Level 8.8 Phosphorus Level 8.1 Magnesium Level 2.2 Alkaline Phosphatase 264 Aspartate Amino Transf (AST/SGOT) 30 Alanine Aminotransferase (ALT/SGPT) 41 Total Bilirubin 0.7 Sodium Level 142 Potassium Level 4.9 Chloride Level 104 Carbon Dioxide Level 24.1 Anion Gap 14 Estimat Glomerular Filtration Rate 6 Ammonia 16 Lactic Acid Level 1.0 Date/Time Source Procedure Growth Status 10/16/17 04:20 Blood Peripheral Aerobic Blood Culture Pending Received 10/16/17 04:20 Blood Peripheral Anaerobic Blood Culture Pending Received (Albin Guerra MD R3) Result Diagram: 10/16/17 0405 10/16/17 0405 Imaging Last 72 hours Impressions Chest X-Ray 10/16/17 0348 Signed Impressions: Service Date/Time: Monday, October 16, 2017 04:06 - CONCLUSION: New left lower lobe infiltrate. Julio Blanco Jr., MD (Albin Guerra MD R3) Septic Shock Reassessment Septic shock perfusion: reassessment completed (Albin Guerra MD R3) Caprini VTE Risk Assessment Caprini VTE Risk Assessment: Mod/High Risk (score >= 2) Caprini Risk Assessment Model Point Value = 1 Point Value = 2 Point Value = 3 Point Value = 5 Age 41-60 Minor surgery BMI > 25 kg/m2 Swollen legs Varicose veins or History of unexplained or recurrent spontaneous Oral contraceptives or hormone replacement Sepsis (< 1 month) Serious lung disease, including pneumonia (< 1 month) Abnormal pulmonary function Acute myocardial infarction Congestive heart failure (< 1 month) History of inflammatory bowel disease Medical patient at bed rest Age 61-74 Arthroscopic surgery Major open surgery (> 45 min) Laparoscopic surgery (> 45 min) Malignancy Confined to bed (> 72 hours) Immobilizing plaster cast Central venous access Age >= 75 History of VTE Family history of VTE Factor V Leiden Prothrombin [id number] Lupus anticoagulant Anticardiolipin antibodies Elevated serum homocysteine Heparin-induced thrombocytopenia Other congenital or acquired thrombophilia Stroke (< 1 month) Elective arthroplasty Hip, pelvis, or leg fracture Acute spinal cord injury (< 1 month) Prophylaxis Regimen Total Risk Factor Score Risk Level Prophylaxis Regimen 0-1 Low Early ambulation 2 Moderate Order ONE of the following: *Sequential Compression Device (SCD) *Heparin 5000 units SQ BID 3-4 Higher Order ONE of the following medications: *Heparin 5000 units SQ TID *Enoxaparin/Lovenox 40 mg SQ daily (WT < 150 kg, CrCl > 30 mL/min) *Enoxaparin/Lovenox 30 mg SQ daily (WT < 150 kg, CrCl > 10-29 mL/min) *Enoxaparin/Lovenox 30 mg SQ BID (WT < 150 kg, CrCl > 30 mL/min) AND/OR *Sequential Compression Device (SCD) 5 or more Highest Order ONE of the following medications: *Heparin 5000 units SQ TID (Preferred with Epidurals) *Enoxaparin/Lovenox 40 mg SQ daily (WT < 150 kg, CrCl > 30 mL/min) *Enoxaparin/Lovenox 30 mg SQ daily (WT < 150 kg, CrCl > 10-29 mL/min) *Enoxaparin/Lovenox 30 mg SQ BID (WT < 150 kg, CrCl > 30 mL/min) AND *Sequential Compression Device (SCD) (Albin Guerra MD R3) Assessment and Plan Assessment and Plan 57 year old male with a history of ESRD on dialysis and left foot osteomyelitis presents with healthcare associated pneumonia and confusion. Code Status FULL CODE Discussed Condition With Discussed with Dr. Bland, Dr. Duarte (Albin Guerra MD R3) Attending Attestation THIS CASE WAS DISCUSSED WITH THE RESIDENT PHYSICIANS. I HAVE REVIEWED THE RECORD , PATIENT SEEN AND EXAMINED AND AGREE WITH THE ABOVE NOTE AND PLAN OF CARE WAS DISCUSSED. I HAVE AUTHORIZED THE ORDER FOR ADMISSION TO AN IN-PATIENT STATUS. (Nabor Duarte MD) Problem List: (1) Healthcare-associated pneumonia ICD Codes: J18.9 - Pneumonia, unspecified organism Status: Acute Plan: Presenting with acute delirium and left lower lobe infiltrate. White count normal but with left shift. No fevers so far. Lactic acid is normal. Likely healthcare associated pneumonia given long stay in hospital and SNF. Also has history of COPD, but does not appear to be in acute exacerbation at this point. VBG essentially normal, no respiratory distress on exam. Liver enzymes and ammonia level normal. - Cefepime 1g daily started 10/16/17, switch to Zosyn 2.28 q8hrs on 10/17/17 - Levaquin 750 mg once, followed by 500 mg q48 hours - Add vancomycin or Linezolid if not improving to cover MRSA - Pulse oximetry and O2 supplementation as needed. - DuoNeb treatments q4hrs while awake (2) Delirium due to another medical condition, acute, hypoactive ICD Codes: F05 - Delirium due to known physiological condition Status: Acute Plan: Acute delirium likely secondary to pneumonia and uremia. Also has left foot osteomyelitis that is stable on Unasyn, and a Ta IJ catheter that looks clean. Missed hemodialysis yesterday due to acute illness. Electrolytes appear fairly stable. Phosphorus is elevated at baseline. VBG is essentially normal, glucose is normal. No fevers, white count normal but with left shift. Has coughing, diffuse mild abdominal pain, and nausea/vomiting. - Consult nephrology for hemodialysis today, spoke with Dr. Schultz. - Antibiotics for healthcare associated pneumonia. - Avoid sedatives as much as possible. - Re-orientation, blinds up in day, dark and quiet at night. - Neuroimaging/EEG only if not improving with medical therapy. (3) ESRD on hemodialysis ICD Codes: N18.6 - End stage renal disease; Z99.2 - Dependence on renal dialysis Status: Chronic Plan: ESRD on hemodialysis MWF, missed dialysis yesterday. Electrolytes fairly normal, except phosphorus significantly elevated at baseline. - Nephrology on board. - Needs hemodialysis today. - Continue Renvela 1600 mg tidac - Epoetin with dialysis for anemia of renal disease. (4) Diabetes type 1, uncontrolled ICD Codes: E10.65 - Type 1 diabetes mellitus with hyperglycemia Status: Chronic Plan: Diabetes type 1, complicated by ESRD on dialysis, peripheral arterial disease, and left foot infection. - Low dose sliding scale Novolog. - Levemir 5 units bid, increase once eating more - Monitor blood glucoses (5) Foot osteomyelitis, left ICD Codes: M86.9 - Osteomyelitis, unspecified Status: Chronic Plan: Osteomyelitis of the left foot, receiving Unasyn until November 07. Foot does not appear acutely infected. Has some dehiscence with serosanguineous but no purulent drainage, no foul smell, no surrounding erythema or pain. - Currently on Zosyn to cover HCAP, Unasyn on hold. Continue Unasyn 3g daily via Ta catheter until November 07 after discharge. - Consult wound care nurse for recommendations on wound management of left foot (6) No contraindication to deep vein thrombosis (DVT) prophylaxis ICD Codes: Z78.9 - Other specified health status Status: Acute Plan: Heparin 5000 units tid Bilateral SCD's (7) Nutrition, metabolism, and development symptoms ICD Codes: R63.8 - Other symptoms and signs concerning food and fluid intake Status: Acute Plan: Renal diet after bedside swallow evaluation Electrolytes stable, phosphorus elevated. Hemodialysis today, Renvela for hyperphosphatemia. PO hydration (Albin Guerra MD R3) Physician Certification 2 Midnight Certification Type: Admission for Inpatient Services Order for Inpatient Services The services are ordered in accordance with Medicare regulations or non- Medicare payer requirements, as applicable. In the case of services not specified as inpatient-only, they are appropriately provided as inpatient services in accordance with the 2-midnight benchmark. Estimated LOS (days): 3 days is the estimated time the patient will need to remain in the hospital, assuming treatment plan goals are met and no additional complications. Post-Hospital Plan: SNF (Albin Guerra MD R3) Problem Qualifiers (1) Foot osteomyelitis, left: Qualified Codes: M86.9 - Osteomyelitis, unspecified Albin Guerra MD R3 Oct 16, 2017 07:22 Nabor Duarte MD Oct 17, 2017 15:40
[2017-10-16] MEDS ORDERED: SENNOSIDES 8.6 MG TAB PO PRN (07:30)
[2017-10-16] MEDS ORDERED: SODIUM CHLORIDE 0.9% FLUSH 10 ML FLUSH IV FLUSH PRN ×2 (07:30→09:45)
[2017-10-16] MEDS ORDERED: LACTULOSE SYRUP 20 GM/30 ML CUP PO PRN (07:30)
[2017-10-16] MEDS ORDERED: ONDANSETRON HCL 4 MG/2 ML VIAL IVP PRN (07:30)
[2017-10-16] MEDS ORDERED: NALOXONE HCL 0.4 MG/ML AMP IV PUSH PRN (07:30)
[2017-10-16] MEDS ORDERED: BISACODYL 10 MG SUPP RECTAL PRN (07:30)
[2017-10-16] MEDS ORDERED: ACETAMINOPHEN 325 MG TAB PO PRN ×2 (07:30→09:45)
[2017-10-16] MEDS ORDERED: MAGNESIUM HYDROXIDE SUSP 30 ML CUP PO PRN (07:30)
[2017-10-16] MEDS: DOCUSATE SODIUM 50 MG/SENNA 8.6 MG TAB PO SCH ×2 (09:00→21:00)
[2017-10-16] MEDS ORDERED: BACLOFEN 10 MG TAB PO PRN (09:30)
[2017-10-16] MEDS ORDERED: AMPICILLIN-SULBACTAM INJ 3 GM VIAL IV SCH (09:30)
[2017-10-16] MEDS ORDERED: GLUCAGON 1 MG/ML VIAL OTHER PRN (09:30)
[2017-10-16] MEDS: SODIUM CHLORIDE 0.9% FLUSH 10 ML FLUSH IV FLUSH SCH ×2 (09:31→21:00)
[2017-10-16] MEDS ORDERED: SODIUM CHLOR 0.9% 1000 ML INJ 1,000 ML IV PRN (09:32)
[2017-10-16] MEDS ORDERED: SODIUM CHLOR 0.9% 1000 ML INJ 1,000 ML OTHER PRN (09:32)
[2017-10-16] MEDS ORDERED: GENTAMICIN SULFATE (DIALYSIS USE ONLY) 20 MG/2 ML VIAL OTHER PRN (09:45)
[2017-10-16] MEDS ORDERED: ALBUMIN 25% INJ 100 ML IV PRN (09:45)
[2017-10-16] MEDS ORDERED: diphenhydrAMINE HCL 25 MG CAP PO PRN (09:45)
[2017-10-16] MEDS ORDERED: NITROGLYCERIN 0.4 MG SL 25 TABS/BTL SL PRN (09:45)
[2017-10-16] MEDS ORDERED: cloNIDine HCL 0.1 MG TAB PO PRN (09:45)
[2017-10-16] MEDS ORDERED: MANNITOL 12.5 GM/50 ML VIAL IV PRN (09:45)
[2017-10-16] MEDS ORDERED: ONDANSETRON HCL 4 MG/2 ML VIAL IV PUSH PRN (09:45)
[2017-10-16] MEDS ORDERED: HEPARIN SODIUM - IV 10,000 UNITS/10 ML VIAL IV FLUSH PRN (09:45)
[2017-10-16] MEDS ORDERED: HEPARIN SODIUM - IV 10,000 UNITS/10 ML VIAL PRN (09:45)
--- NOTE | 2017-10-16 10:42 | PD.CONS ---
HPI Service Nephrology Consult Requested By Reason for Consult ESRD on HD Primary Care Physician Angella Joshua , R3 MD Alyssa History of Present Illness This is our dialysis patient who was admitted from custodial after missing dialysis on Sunday (make up for Sunday due to holiday schedule). He has a cough with vomiting, LLL pneumonia on chest xray, and altered mental status. He is seen today during dialysis. He is agitated, extremely confused, slightly hostile toward dialysis staff. PMH listed below includes ESRD on dialysis, diabetes, CAD, COPD. He has a tay catheter in place, in on Unasyn until November 07 for osteomyelitis of his left foot, recent transmetatarsal amputation. We were consulted to assist with management. (Jasmyne Bee) Review of Systems ROS Limitations: Altered Mental Status Constitutional: COMPLAINS OF: Fatigue, DENIES: Fever Cardiovascular: DENIES: Chest pain Gastrointestinal: DENIES: Abdominal pain Psychiatric: COMPLAINS OF: Anxiety, Confusion, Mood changes, Agitation ( Jasmyne Bee) Past Family Social History Allergies: Coded Allergies: No Known Allergies (Verified Allergy, Unknown, 10/16/17) Past Medical History Renal failure, on dialysis due to diabetes. Started 2013 on Dialysis , , Sunday. * AV fistula on left arm Diabetes Mellitus HTN Anemia HLD COPD Past Surgical History Tay placement Sep 2017 AV fistula placement left foot transmetatarsal amputation 09/2017 Right catheter port placed 09/2017 Reported Medications Unasyn Inj (Ampicillin-Sulbactam Inj) 3 Gm Vial 3 Gm IV DAILY Novolog Inj (Insulin Aspart) 1,000 Unit/10 Ml Vial 1-9 Units SQ ACHS sugars less than 70,(0)units; sugars 150-199,(1) unit; sugars 200-249,(3) units; sugars 250-299,(5) units; sugars 300-349,(7) units; sugars greater than 349,(9) units Renvela (Sevelamer Carbonate) 800 Mg Tab 1,600 Mg PO TIDAC Gabapentin 100 Mg Cap 100 Mg PO TID Hydrocodone-Acetaminophen 5-325 mg Tab 1-2 Tab PO Q4HR PRN Symbicort Inh (Budesonide/Formoterol Fumarate) 160-4.5 Mcg/Act Aero 1 Puff INH Q12HR Duloxetine DR (Duloxetine HCl) 30 Mg Capdr 30 Mg PO DAILY Atorvastatin (Atorvastatin Calcium) 40 Mg Tab 40 Mg PO HS Levemir Flextouch Pen Inj (Insulin Detemir) 300 unit/3 ML Pen 15 Units SQ DAILY Levemir Flextouch Pen Inj (Insulin Detemir) 300 unit/3 ML Pen 12 Units SQ DAILY Baclofen 10 Mg Tab 10 Mg PO DAILY PRN Vitamin D3 (Cholecalciferol) 1,000 Unit Cap 1,000 Units PO DAILY Dialyvite 800/Zinc 15 (B-Complex W/ C-Zn & Folic Acid) 1 Tab 1 Tab DAILY Active Ordered Medications Last Impressions Chest X-Ray 10/16/17 0348 Signed Impressions: Service Date/Time: Monday, October 16, 2017 04:06 - CONCLUSION: New left lower lobe infiltrate. Julio Blanco Jr., MD Family History Non contributory Social History Daily smoker Former ETOH and marijuana He is residing at [facility], historically homeless but stays in a mandaen basement Full code Unemployed (Jasmyne Bee) Physical Exam Vital Signs Vital Signs Date Time Temp Pulse Resp B/P (MAP) Pulse Ox O2 Delivery O2 Flow Rate FiO2 10/16/17 08:53 98.4 95 20 133/66 (88) 100 10/16/17 08:21 90 18 131/68 (89) 96 10/16/17 07:39 100 21 10/16/17 06:00 85 14 142/75 (97) 97 Room Air 10/16/17 05:00 88 14 145/70 (95) 94 Room Air 10/16/17 03:52 14 100 Room Air 10/16/17 03:45 97.8 92 14 130/87 (101) 100 Physical Exam young AAM lying in bed, eyes closed Awakens to voice. He is agitated, confused, not oriented to time or place S1/S2, RRR, no murmurs or rubs lungs clear in all valdez abdomen soft, non tender, non distended ext: no edema; LUE AVF, + thrill/bruit; left foot, s/p left midfoot amputation; dressing in place; weak pulses bilaterally right foot great toe with open wound, no drainage Tay right chest Laboratory Laboratory Tests Test 10/16/17 04:05 1/2/18 04:20 10/16/17 08:07 White Blood Count 10.7 Red Blood Count 3.23 Hemoglobin 8.7 Hematocrit 27.0 Mean Corpuscular Volume 83.6 Mean Corpuscular Hemoglobin 26.9 Mean Corpuscular Hemoglobin Concent 32.2 Red Cell Distribution Width 19.5 Platelet Count 267 Mean Platelet Volume 9.5 Neutrophils (%) (Auto) 79.9 Lymphocytes (%) (Auto) 7.7 Monocytes (%) (Auto) 7.1 Eosinophils (%) (Auto) 3.9 Basophils (%) (Auto) 1.4 Neutrophils # (Auto) 8.6 Lymphocytes # (Auto) 0.8 Monocytes # (Auto) 0.8 Eosinophils # (Auto) 0.4 Basophils # (Auto) 0.1 CBC Comment DIFF FINAL Differential Comment Prothrombin Time 12.6 Prothromb Time International Ratio 1.2 Activated Partial Thromboplast Time 26.4 Blood Urea Nitrogen 82 Creatinine 11.24 Random Glucose 108 Total Protein 7.1 Albumin 2.5 Calcium Level 8.8 Phosphorus Level 8.1 Magnesium Level 2.2 Alkaline Phosphatase 264 Aspartate Amino Transf (AST/SGOT) 30 Alanine Aminotransferase (ALT/SGPT) 41 Total Bilirubin 0.7 Sodium Level 142 Potassium Level 4.9 Chloride Level 104 Carbon Dioxide Level 24.1 Anion Gap 14 Estimat Glomerular Filtration Rate 6 Ammonia 16 Lactic Acid Level 1.0 Blood Gas Puncture Site I.V. Blood Gas Patient Temperature 98.6 Venous Blood pH 7.40 Venous Blood Partial Pressure CO2 39 Venous Blood Partial Pressure O2 34 Venous Blood HCO3 24 Venous Blood Oxygen Saturation 52 Venous Blood Oxygen Content 6.8 Venous Blood Base Excess -0.4 Oxygen Delivery Device ROOM AIR Blood Gas Inspired Oxygen 21 Date/Time Source Procedure Growth Status 10/16/17 04:20 Blood Peripheral Aerobic Blood Culture Pending Received 10/16/17 04:20 Blood Peripheral Anaerobic Blood Culture Pending Received (Jasmyne Bee) Result Diagram: 10/16/17 0405 10/16/175 Imaging Last Impressions Chest X-Ray 10/16/178 Signed Impressions: Service Date/Time: Monday, October 16, 2017 04:06 - CONCLUSION: New left lower lobe infiltrate. Julio Blanco Jr., MD (Jasmyne Bee) Assessment and Plan Problem List: (1) ESRD (end stage renal disease) ICD Codes: N18.6 - End-stage renal disease Status: Resolved Plan: Typical MWF dialysis. He missed Sunday, therefore we will dialyze today. Seen during dialysis on a 2K, 350 BFR, goal 3L Intermittently monitor electrolytes. AVF functions well. Avoid IVF, gadolinium. High protein diet is ordered. (2) Altered mental status ICD Codes: R41.82 - Altered mental status, unspecified Plan: Acute, rule out sepsis. Blood cultures ordered. Being treated for pneumonia with PO Zithromax. On Unasyn for osteomyelitis. (3) HTN (hypertension) ICD Codes: I10 - Essential (primary) hypertension Status: Chronic Plan: His home medications have been resumed. Permanent Comment: Last Edited By: Jasmyne Bee on Jul 11, 2017 15:31 (4) DM (diabetes mellitus) ICD Codes: E11.9 - Type 2 diabetes mellitus without complications Status: Chronic Plan: He is a brittle diabetic. Monitor glucose carefully, using insulin if needed. (5) Anemia ICD Codes: D64.9 - Anemia, unspecified Plan: Epogen with dialysis. Monitor hemoglobin. (6) Osteomyelitis ICD Codes: M86.9 - Osteomyelitis, unspecified Status: Acute Plan: He has a tay in place. Unasyn ordered daily until November 07. (7) Bone metabolism disorder ICD Codes: E88.9 - Metabolic disorder, unspecified; M90.80 - Osteopathy in diseases classified elsewhere, unspecified site Status: Acute Plan: On Renvela with meals. Monitor phosphorus intermittently. (Jasmyne Bee) Assessment and Plan patient was seen and examined during dialysis. Exhibited belligerence, and agitation. Had missed dialysis on Sunday. Stroke alert was later called. Treatment cut short by about 45 minutes. Continue to monitor. CT head and CTA were negative for any acute findings. (Maurice Schultz MD) Jasmyne Bee Oct 16, 2017 10:42 Maurice Schultz MD Oct 16, 2017 20:52
[2017-10-16] MEDS: BUDESONIDE-FORMOTEROL 160/4.5 MCG INHALER INH SCH ×2 (11:00→21:00)
[2017-10-16] MEDS ORDERED: LEVOFLOXACIN 750 MG TAB PO ONE (11:45)
[2017-10-16] MEDS: SEVELAMER CARBONATE 800 MG TAB PO SCH ×2 (12:00→16:08)
[2017-10-16] MEDS: RESP: ALBUTEROL 2.5 MG/IPRATROPIUM 0.5 MG NEB (SCH) NEB ×3 (12:00→19:35)
[2017-10-16] MEDS: INSULIN ASPART SUPPLEMENTAL SCALE SQ SCH ×3 (12:00→21:00)
[2017-10-16] MEDS: DEXTROSE 50% IN WATER 50 ML VIAL(D50) IV PUSH PRN ×3 (12:20→17:23)
[2017-10-16] MEDS: EPOETIN ALFA 10,000 UNITS/ML VIAL IV PUSH PRN (12:35)
[2017-10-16] MEDS: SODIUM CHLOR 0.9% 1000 ML INJ 1,000 ML OTHER PRN (12:55)
[2017-10-16] MEDS: GELATIN 12 MM/7 MM FOAM TOP PRN (12:55)
[2017-10-16] MEDS: GABAPENTIN 100 MG CAP PO SCH ×2 (13:00→16:09)
--- NOTE | 2017-10-16 13:33 | RADRPT ---
EXAM DATE/TIME: 10/16/2017 13:09 [facility] COMPARISON: CT BRAIN W/O CONTRAST, March 23, 2017, 17:47. INDICATIONS : Stroke alert, left sided weakness. RADIATION DOSE: 56.35 CTDIvol (mGy) This report was called by aleta Milligan to Dr. Hoyt at 1: 30 PM on 10/16/17. MEDICAL HISTORY : Non-responsive. SURGICAL HISTORY : Non-responsive. ENCOUNTER: Initial ACUITY: 1 day PAIN SCALE: Non-responsive LOCATION: Bilateral head TECHNIQUE: Multiple contiguous axial images were obtained of the head. Using automated exposure control and adj ustment of the mA and/or kV according to patient size, radiation dose was kept as low as reasonably a chievable to obtain optimal diagnostic quality images. DICOM format image data is available electro nically for review and comparison. FINDINGS: CEREBRUM: The ventricles are normal for age. No evidence of midline shift, mass lesion, hemorrhage or acute in farction. No extra-axial fluid collections are seen. POSTERIOR FOSSA: The cerebellum and brainstem are intact. The 4th ventricle is midline. The cerebellopontine angle i s unremarkable. EXTRACRANIAL: The visualized portion of the orbits is intact. SKULL: The calvaria is intact. No evidence of skull fracture. CONCLUSION: No acute disease. Randy Milligan MD on October 16, 2017 at 13:27 Board Certified Radiologist. This report was verified electronically.
--- NOTE | 2017-10-16 13:41 | HHI.FPPN ---
Addendum to progress note ADDENDUM Reason for addendum: Additonal documentation Additional information Responded to stroke alert on patient. He was receiving dialysis with 45 minutes to go when the nurse noted that he was becoming even more somnolent and confused , and also drooling. He was not able to answer who he was, and at one point denied his name. He is acutely confused and keeps staring into space. He is not following commands. Vital signs are stable. He is in no respiratory distress. Glucose initially in the 60's, given dextrose and came up to 90's. Physical exam: General: appears confused, somewhat agitated, in dialysis room HEENT: Normocephalic, drooling Neck: Supple, no JVD CV: RRR, no murmurs, rubs, or gallops, pulses intact, normal cap refill Lungs: CTAB Abdomen: Soft, nontender, nondistended, bowel sounds present Neuro: Awake, alert, confused, not oriented, not following commands, staring off , mumbling words, moving all extremities, drooling. Assessment: Increasing somnolence, drooling, lack of following commands. Moving all extremities but not purposefully. No convulsions, no tongue biting. Not oriented to person, place, or time currently. DDx includes acute cerebrovascular accident, hemorrhagic versus ischemic, sepsis, acute delirium, electrolyte disturbance, acute coronary event. Plan: - Stroke alert protocol initiated - Monitor vital signs and hemodynamic stability. - Maintain O2 saturation >92% - Stat neuroimaging - Cardiac monitoring - If hemorrhagic stroke ruled out and ischemic CVA verified, maintain permissive hypertension at <220/120. - Continue aspirin (if hemorrhagic stroke ruled out) and statin. - Consult neurology Albin Guerra MD R3 Oct 16, 2017 13:41
[2017-10-16] MEDS ORDERED: IODIXANOL 320 MG/ML 10 ML VIAL (for Rad CT) IVCONTRAST ONE (13:55)
[2017-10-16] MEDS: HEPARIN SODIUM - SQ 10,000 UNITS/ML VIAL SQ SCH ×2 (14:00→22:26)
--- NOTE | 2017-10-16 14:03 | RADRPT ---
EXAM DATE/TIME: 10/16/2017 13:23 [facility] COMPARISON: No previous studies available for comparison. EXTERNAL COMPARISON : INDICATIONS : Stroke alert, left sided weakness today. IV CONTRAST: 50 cc Omnipaque 350 (iohexol) IV RADIATION DOSE: 16.02 CTDIvol (mGy) MEDICAL HISTORY : Hypertension. SURGICAL HISTORY : Non-responsive. ENCOUNTER: Initial ACUITY: 1 day PAIN SCALE: Non-responsive LOCATION: Bilateral head TECHNIQUE: Volumetric scanning was performed using a multi-row detector CT scanner. The data was post processed with a variety of visualization algorithms including full volume maximum intensity projection, multi -planar sliding thin slab reformation, curved planar reformation, and surface rendering techniques. Using automated exposure control and adjustment of the mA and/or kV according to patient size, radiat ion dose was kept as low as reasonably achievable to obtain optimal diagnostic quality images. DICO M format image data is available electronically for review and comparison. FINDINGS: There is excellent visualization of the major intracranial arteries out to the second-order branch ve ssels. There is no evidence for aneurysm, vessel truncation or stenosis, and no evidence for vascula r malformation. CONCLUSION: Unremarkable CT angiography of the brain. Naresh Glass MD on October 16, 2017 at 13:48 Board Certified Radiologist. This report was verified electronically.
--- NOTE | 2017-10-16 14:32 | RADRPT ---
EXAM DATE/TIME: 10/16/2017 13:23 [facility] COMPARISON: No previous studies available for comparison. INDICATIONS : Stroke alert, left sided weakness today. IV CONTRAST: 50 cc Visipaque (iodixanol) IV ; Cumulative dose for multiple exams. RADIATION DOSE: 16.02 CTDIvol (mGy) ; Combined studies MEDICAL HISTORY : Hypertension. SURGICAL HISTORY : Non-responsive. ENCOUNTER: Initial ACUITY: 1 day PAIN SCALE: Non-responsive LOCATION: Bilateral neck Elevated flow velocities and ICA/CCA ratios have been found to correlate with increased degrees of vessel stenosis, calculated as percentage of diameter relative to a normal segment of distal ICA/CCA. TECHNIQUE: Volumetric scanning was performed using a multirow detector CT scanner. The data was post processed with a variety of visualization algorithms including full-volume maximum intensity projection, multip lanar sliding thin-slab reformation, curved-planar reformation, and surface-rendering techniques. Us ing automated exposure control and adjustment of the mA and/or kV according to patient size, radiatio n dose was kept as low as reasonably achievable to obtain optimal diagnostic quality images. DICOM f ormat image data is available electronically for review and comparison. FINDINGS: AORTIC ARCH: There is a three-vessel origin of the great vessels from the aorta. No evidence of ostial narrowing. RIGHT CAROTID: The common carotid artery is intact. The carotid bulb has a normal configuration without ulceration o r narrowing. The internal carotid artery lumen is smooth without stenosis. The external carotid jimmie ry is intact. LEFT CAROTID: The common carotid artery is intact. The carotid bulb has a normal configuration without ulceration or narrowing. The internal carotid artery lumen is smooth without stenosis. The external carotid ar chrissy is intact. VERTEBRALS: The vertebral arteries have a symmetric diameter. No stenotic lesions are seen. CONCLUSION: No evidence of hemodynamic significant lesion. There is 0% on the right and zero on the left. Naresh Glass MD on October 16, 2017 at 14:24 Board Certified Radiologist. This report was verified electronically.
--- NOTE | 2017-10-16 15:10 | MB ---
cc: BRANDY GHOTRA M.D. DATE OF CONSULTATION 10/16/2017 HISTORY OF PRESENT ILLNESS The patient is a 57-year-old seen in neurological consultation. This was a Stroke Alert. The patient was in dialysis when the staff noticed that he was more somnolent, more confused, drooling and had some left-sided weakness. He was evaluated quickly and taken to the CT scan. His blood sugar was reportedly in the 60s and when sugar was given it came up to the 90s. The patient apparently came to the hospital today with a history of pneumonia and he comes from a nursing facility. He has been on dialysis and had a left foot partial amputation a few weeks ago. He has a history of coronary artery disease and diabetes. After the foot amputation for osteomyelitis the patient was discharged from this hospital on October 06. In the CT scan suite the patient appears to have had a seizure characterized by decreased responsiveness, some apparent tremoring and some staring. I spoke to the nursing staff that attended him. NEUROLOGICAL EXAMINATION The patient was examined and he appeared quite lethargic and when stronger stimulation was provider the patient responded and moved all four extremities. He did perform motor tests on commands. At times he seemed to have less motor functions involving the left-sided limbs than the right. His pupils were about the same size reactive. There is a little bit of left facial weakness. He did ask me who am I, etc., and he also asked similar questions earlier to the nursing staff. MEDICATIONS His home medications may have included baclofen and Levemir. The current medications include: 1. Levaquin. 2. Cymbalta. 3. Piperacillin. 4. Atorvastatin. 5. Insulin. 6. Gabapentin. IMAGING Imaging studies after the Stroke Alert included a CT of the head and the radiologist called me reporting a negative study. I just saw results of the CT angiography of the brain which is unremarkable and CT angiography neck is pending results. ASSESSMENT AND RECOMMENDATIONS Acute neurologic change with features more suggestive of seizure or encephalopathy rather than ischemic cerebrovascular event. Therefore I did not feel TPA was indicated. The patient had a seizure-like event while having a CT scan. We are awaiting CT angio neck but CT angio head showed no significant abnormalities. We will obtain an EEG and consider anticonvulsant medications. We will transfer him to the unit if possible for close observation and monitoring. Will consider a lumbar puncture and MRI brain. I will follow the neurological status. Thank you for asking us to assist in his care. MD BLANCO Ortega/GORDY /2:10 PM /2:36 PM
--- NOTE | 2017-10-16 16:30 | MG ---
cc: JENELLE DREW Sex: M DATE OF STUDY: 10/16/2017 TEST: TECHNIQUE 17 channel EEG. DESCRIPTION The background rhythm reveals symmetrical slowing in the theta range at roughly 5-6 Hz amplitude 20-30 microvolts. There is some muscle artifact present. At times there is some further slowing in the delta frequency. There are no lateralizing features seen and no epileptiform discharges are present. Photic stimulation results in a fairly well-developed driving response. INTERPRETATION Abnormal study consistent with a moderate encephalopathy. MD SHELLY Collins/TIERA /3:34 PM /4:06 PM
--- NOTE | 2017-10-16 17:33 | EKG ---
Date Performed: 10/16/2017 Time Performed: 04:40:49 PTAGE: 57 years EKG: Sinus rhythm SEPTAL MYOCARDIAL INFARCTION ABNORMAL ECG PREVIOUS TRACING 10/04/17 @ 17.59.41 Compared to prior tracing no significant change DOCTOR: Grayson Short Interpretating Date/Time 10/16/2017 17:32:26
--- NOTE | 2017-10-16 17:35 | EKG ---
Date Performed: 10/16/2017 Time Performed: 13:05:54 PTAGE: 57 years EKG: Sinus rhythm POSSIBLE LEFT ATRIAL ENLARGEMENT BORDERLINE ECG PREVIOUS TRACING : 10/16/2017 04.40 Compared to prior tracing no significant change DOCTOR: Grayson Short Interpretating Date/Time 10/16/2017 17:33:41
[2017-10-16] MEDS ORDERED: DEXT 5%-NACL 0.45% 1000 ML INJ 1,000 ML IV SCH (18:30)
[2017-10-16] MEDS: ATORVASTATIN 40 MG TAB PO SCH (21:00)
[2017-10-16] MEDS ORDERED: INSULIN DETEMIR 100 UNITS/ML VIAL SQ SCH (21:00)
--- NOTE | 2017-10-16 21:42 | RADRPT ---
EXAM DATE/TIME: 10/16/2017 20:59 [facility] COMPARISON: No previous studies available for comparison. INDICATIONS : Altered mental status. MEDICAL HISTORY : Renal disease, end stage. Hypertension. Chronic obstructive pulmonary disease. Diabetes. SURGICAL HISTORY : Transmetatarsal amputation, left foot. Ta catheter. AV fistula. ENCOUNTER: Subsequent ACUITY: 1 day PAIN SCORE: 0/10 LOCATION: cranial TECHNIQUE: Multiplanar, multisequence MRI of the brain was performed without contrast. FINDINGS: CEREBRUM: The ventricles are normal for age. No evidence of midline shift, mass lesion, hemorrhage or acute in farction. No extraaxial fluid collections are seen. The pituitary gland and suprasellar cistern are normal in configuration. WHITE MATTER: No significant signal abnormalities are seen in the white matter. POSTERIOR FOSSA: Brainstem is intact. The 4th ventricle is midline. The cerebellopontine angle is unremarkable. The cerebellar tonsils are normal in position. Chronic ischemic changes in the brainstem. Old lacunar in farcts in the cerebellum bilaterally. DIFFUSION IMAGING: No focal areas of restricted diffusion are seen. No evidence of acute infarction. EXTRACRANIAL: The visualized portions of the orbits and paranasal sinuses are unremarkable. CONCLUSION: 1. No acute intracranial abnormality. 2. Old lacunar infarcts in the cerebellum bilaterally. 3. Chronic ischemic changes the brainstem. Emmanuel Azul MD on October 16, 2017 at 21:38 Board Certified Radiologist. This report was verified electronically.
[2017-10-17] VITALS (12 sets, daily range): BP systolic 120–166; BP diastolic 59–84; PULSE 86–102; RESP 12–26; TEMP 97.4–98.6; O2SAT 95–100
[2017-10-17 05:12] LABS: AUTOMATED NEUTROPHIL # 6.1 TH/MM3 (1.8-7.7); BASOPHIL # 0.2 TH/MM3 (0-0.2); BASOPHIL % 2.2 % (0.0-2.0); EOSINOPHIL # 0.7 TH/MM3 (0-0.4); EOSINOPHIL % 8.3 % (0.0-4.0); HEMATOCRIT 31.3 % (39.0-51.0); HEMOGLOBIN 9.6 GM/DL (13.0-17.0); LYMPHOCYTE # 1.1 TH/MM3 (1.0-4.8); MEAN CORPUSCULAR HEMOGLOBIN 25.7 PG (27.0-34.0); MEAN CORPUSCULAR HGB CONC 30.6 % (32.0-36.0); MEAN PLATELET VOLUME 9.7 FL (7.0-11.0); MONO % 9.5 % (0.0-8.0); MONOCYTE # 0.8 TH/MM3 (0-0.9); PLATELET COUNT 252 TH/MM3 (150-450); RED BLOOD COUNT 3.72 MIL/MM3 (4.50-5.90)
[2017-10-17 05:26] LABS: ALBUMIN 2.4 GM/DL (3.4-5.0); ALKALINE PHOSPHATASE 282 U/L (45-117); ALT (GPT) 39 U/L (12-78); AST (GOT) 35 U/L (15-37); BICARBONATE 24.5 MEQ/L (21.0-32.0); BLOOD UREA NITROGEN 61 MG/DL (7-18); CALCIUM 8.3 MG/DL (8.5-10.1); CHLORIDE 101 MEQ/L (98-107); CREATININE 9.32 MG/DL (0.60-1.30); GLOMERULAR FILTRATION RATE 7 ML/MIN (>89); GLUCOSE,RANDOM 225 MG/DL (74-106); MAGNESIUM 2.2 MG/DL (1.5-2.5); PHOSPHORUS 7.3 MG/DL (2.5-4.9); SODIUM (NA) 139 MEQ/L (136-145); TOTAL BILIRUBIN ADULT 0.8 MG/DL (0.2-1.0); TOTAL PROTEIN 6.9 GM/DL (6.4-8.2)
[2017-10-17] MEDS: HEPARIN SODIUM - SQ 10,000 UNITS/ML VIAL SQ SCH ×3 (05:32→22:12)
[2017-10-17] MEDS: PIPERACIL-TAZO 2.25 GM PREMIX 50 ML IV SCH ×3 (05:32→22:12)
[2017-10-17] MEDS ORDERED: AZITHROMYCIN 250 MG TAB PO SCH (07:00)
[2017-10-17] MEDS ORDERED: CEFEPIME INJ 1,000 MG in SODIUM CHLORIDE 0.9% INJ 100 ML IV SCH (08:00)
[2017-10-17] MEDS: RESP: ALBUTEROL 2.5 MG/IPRATROPIUM 0.5 MG NEB (SCH) NEB ×4 (08:05→20:01)
[2017-10-17] MEDS: INSULIN ASPART SUPPLEMENTAL SCALE SQ SCH ×4 (08:46→23:00)
[2017-10-17] MEDS ORDERED: DEXTROSE 10% INJ 1,000 ML IV SCH (09:15)
[2017-10-17] MEDS ORDERED: INSULIN DETEMIR 100 UNITS/ML VIAL SQ ONE (09:15)
--- NOTE | 2017-10-17 09:24 | HHI.FPPN ---
Subjective Remarks Patient appears much better today. He is awake, alert, and oriented. He does not have much recollection of the events of yesterday. Nausea and vomiting have resolved. He reports minimal coughing today. He has no shortness of breath or chest pain. He has diffuse mild crampy abdominal pain, worse in the lower abdomen. He reports no diarrhea. He has no calf swelling or tenderness. He is finishing his dialysis that was cut short yesterday due to a stroke alert. His neuroimaging tests were negative for acute stroke and his EEG did not suggest seizures but rather encephalopathy. (Albin Guerra MD R3) Objective Vitals Vital Signs Date Time Temp Pulse Resp B/P (MAP) Pulse Ox O2 Delivery O2 Flow Rate FiO2 10/17/17 08:07 100 Nasal Cannula 2.00 10/17/17 06:00 96 10/17/17 04:00 90 10/17/17 04:00 98.2 90 26 161/84 (109) 99 10/17/17 02:00 88 10/17/17 00:00 90 10/17/17 00:00 98.6 90 15 155/70 (98) 100 10/16/17 22:00 92 10/16/17 20:00 90 10/16/17 20:00 98.5 90 13 174/79 (110) 100 10/16/17 19:36 100 Nasal Cannula 2.00 10/16/17 18:00 91 10/16/17 16:56 10/16/17 16:00 90 10/16/17 14:45 98.4 89 14 161/76 (104) 100 10/16/17 14:45 89 I/O 10/16/17 10/16/17 10/16/17 10/17/17 10/17/17 10/17/17 07:00 15:00 23:00 07:00 15:00 23:00 Intake Total 350 ml 293 ml 239 ml Output Total 2500 ml 0 ml 0 ml Balance -2150 ml 293 ml 239 ml Intake Oral 0 ml 0 ml 0 ml IV Total 350 ml 293 ml 239 ml Output Urine Total 0 ml 0 ml Hemodialysis 2500 ml # Voids 1 0 # Bowel Movements 0 0 (Albin Guerra MD R3) Result Diagram: 10/17/17 0435 10/17/17 0435 Imaging Last 72 hours Impressions Chest X-Ray 10/16/17 0348 Signed Impressions: Service Date/Time: Monday, October 16, 2017 04:06 - CONCLUSION: New left lower lobe infiltrate. Julio Blanco Jr., MD Neck CTA 10/16/17 0000 Signed Impressions: Service Date/Time: Monday, October 16, 2017 13:23 - CONCLUSION: No evidence of hemodynamic significant lesion. There is 0%% on the right and zero on the left. Naresh Glass MD Head CTA 10/16/17 0000 Signed Impressions: Service Date/Time: Monday, October 16, 2017 13:23 - CONCLUSION: Unremarkable CT angiography of the brain. Naresh Glass MD Head CT 10/16/17 0000 Signed Impressions: Service Date/Time: Monday, October 16, 2017 13:09 - CONCLUSION: No acute disease. Randy Milligan MD Brain MRI 10/16/17 0000 Signed Impressions: Service Date/Time: Monday, October 16, 2017 20:59 - CONCLUSION: 1. No acute intracranial abnormality. 2. Old lacunar infarcts in the cerebellum bilaterally. 3. Chronic ischemic changes the brainstem. Emmanuel Auzl MD Objective Remarks General: Sitting up in bed, awake, alert, oriented X3, appears much better than yesterday, no distress Skin: Left foot s/p transmetatarsal amputation, sutures in place, area of dehiscence of left foot with serosanguineous non-purulent drainage, no surrounding cellulitis or tenderness to palpation, does not appear acutely infected. (examined yesterday, wrapped today). Site of Ta Catheter insertion appears clean and dry, not tender to palpation, no surrounding erythema. HEENT: Normocephalic, no conjunctivitis, no nasal discharge Neck: No thyromegaly or lymphadenopathy CV: RRR, no murmurs, rubs, or gallops, pulses intact, normal cap refill. AV fistula with palpable bruit. Lungs: CTAB Abdomen: Mild tenderness to palpation in the lower mid-abdomen, no rebound tenderness or guarding, normal bowel sounds Ext: No swelling, left foot amputation as above Neuro: Awake, alert, oriented X3 Procedures Hemodialysis (Albin Guerra MD R3) A/P Assessment and Plan 57 year old male with a history of ESRD on dialysis and left foot osteomyelitis presents with healthcare associated pneumonia and acute metabolic encephalopathy and delirium. Discharge Planning Pending complete resolution of acute encephalopathy and stable vital signs, afebrile for 24 hours, could go home with oral antibiotics, possibly in the next day or two. Also awaiting culture results. (Albin Guerra MD R3) Attending Attestation THIS CASE WAS DISCUSSED WITH THE RESIDENT PHYSICIANS DR GUERRA I HAVE REVIEWED THE RECORD, PATIENT SEEN AND EXAMINED AND AGREE WITH THE ABOVE NOTE AND PLAN OF CARE WAS DISCUSSED. I HAVE AUTHORIZED THE ORDER SET (Nabor Duarte MD) Problem List: (1) Healthcare-associated pneumonia ICD Codes: J18.9 - Pneumonia, unspecified organism Status: Acute Plan: Presenting with acute delirium and left lower lobe infiltrate. White count normal, initially with left shift. Remains afebrile. Lactic acid is normal. Likely healthcare associated pneumonia given long stay in hospital and SNF. Also has history of COPD, but does not appear to be in acute exacerbation at this point. VBG essentially normal, no respiratory distress on exam. - Cefepime 1g daily started 10/16/17, switched to Zosyn 2.28 q8hrs on 10/17/17 - Levaquin 750 mg once, followed by 500 mg q48 hours - Add vancomycin or Linezolid if not improving to cover MRSA, but appears to be improving - Follow up influenza, legionella, pneumococcal results. - Follow up sputum cultures and blood cultures. - Pulse oximetry and O2 supplementation as needed. - DuoNeb treatments q4hrs while awake (2) Delirium due to another medical condition, acute, hypoactive ICD Codes: F05 - Delirium due to known physiological condition Status: Acute Plan: Acute delirium likely secondary to pneumonia and uremia. Also has left foot osteomyelitis that is stable on Unasyn, and a Ta IJ catheter that looks clean. Missed hemodialysis on 10/15 due to acute illness. Electrolytes appear fairly stable, BUN significantly elevated. Phosphorus is elevated at baseline. VBG is essentially normal. Stroke alert called on 10/16 for increasing confusion, MRI brain negative for acute stroke, CTA head and neck negative. EEG shows encephalopathy but no seizures. On day two he is appearing much improved cognitively. - Consult nephrology for hemodialysis - Antibiotics for healthcare associated pneumonia. - Avoid sedatives as much as possible. - Re-orientation, blinds up in day, dark and quiet at night. - Neurology consulted after the stroke alert, appreciate recommendations. - Swallow evaluation before PO intake today. (3) ESRD on hemodialysis ICD Codes: N18.6 - End stage renal disease; Z99.2 - Dependence on renal dialysis Status: Chronic Plan: ESRD on hemodialysis MWF. - Nephrology on board. - Monitor electrolytes daily. - Continue Renvela 1600 mg tidac - Epoetin with dialysis for anemia of renal disease. - Avoid nephrotoxic agents as much as possible. - Renally dose medications. (4) Diabetes type 1, uncontrolled ICD Codes: E10.65 - Type 1 diabetes mellitus with hyperglycemia Status: Chronic Plan: Diabetes type 1, complicated by ESRD on dialysis, peripheral arterial disease, and left foot infection. Has been NPO overnight for acute delirium. - Low dose sliding scale Novolog. - Levemir 5 units once now, then 10 units bid starting tonight. - Swallow evaluation this morning then likely will be eating/drinking today. - Monitor blood glucoses (5) Foot osteomyelitis, left ICD Codes: M86.9 - Osteomyelitis, unspecified Status: Chronic Plan: Osteomyelitis of the left foot, receiving Unasyn until November 07. Foot does not appear acutely infected. Has some dehiscence with serosanguineous but no purulent drainage, no foul smell, no surrounding erythema or pain. - Currently on Zosyn to cover HCAP, Unasyn on hold. Continue Unasyn 3g daily via Ta catheter until November 07 after discharge. - Consult wound care nurse for recommendations on wound management of left foot (6) No contraindication to deep vein thrombosis (DVT) prophylaxis ICD Codes: Z78.9 - Other specified health status Status: Acute Plan: Heparin 5000 units tid Bilateral SCD's (7) Nutrition, metabolism, and development symptoms ICD Codes: R63.8 - Other symptoms and signs concerning food and fluid intake Status: Acute Plan: Renal diet after swallow evaluation. Electrolytes stable, phosphorus elevated. Hemodialysis per nephrology. Renvela for hyperphosphatemia. PO hydration (Albin Guerra MD R3) Problem Qualifiers (1) Foot osteomyelitis, left: Qualified Codes: M86.9 - Osteomyelitis, unspecified Albin Guerra MD R3 Oct 17, 2017 09:24 Nabor Duarte MD Oct 17, 2017 15:51
[2017-10-17] MEDS: CHOLECALCIFEROL (VIT D3) 1000 UNIT TAB PO SCH (09:56)
[2017-10-17] MEDS: GABAPENTIN 100 MG CAP PO SCH ×3 (09:56→18:16)
[2017-10-17] MEDS: DOCUSATE SODIUM 50 MG/SENNA 8.6 MG TAB PO SCH ×2 (09:56→22:11)
[2017-10-17] MEDS: DULoxetine HCl DR 30 MG CAP PO SCH (09:56)
[2017-10-17] MEDS: SEVELAMER CARBONATE 800 MG TAB PO SCH ×3 (09:56→17:14)
[2017-10-17] MEDS: BUDESONIDE-FORMOTEROL 160/4.5 MCG INHALER INH SCH ×2 (09:57→21:00)
[2017-10-17] MEDS: SODIUM CHLORIDE 0.9% FLUSH 10 ML FLUSH IV FLUSH SCH ×2 (09:57→21:00)
[2017-10-17] MEDS: amLODIPine BESYLATE 5 MG TAB PO SCH (10:49)
[2017-10-17] MEDS: GELATIN 12 MM/7 MM FOAM TOP PRN (11:00)
[2017-10-17] MEDS: EPOETIN ALFA 10,000 UNITS/ML VIAL IV PUSH PRN (11:00)
[2017-10-17] MEDS: SODIUM CHLOR 0.9% 1000 ML INJ 1,000 ML OTHER PRN (11:00)
--- NOTE | 2017-10-17 12:55 | HHI.NPPN ---
Subjective General Problems: Anemia Renal Failure: Chronic, End Stage Renal Disease Interval History He had new onset seizre yesterday. All imaging is negative. His mental status is much improved. Seen during bedside dialysis. (Jasmyne Bee) Review of Systems General Constitutional: Fatigue (Jasmyne Bee) Objective Data Data Vital Signs Date Time Temp Pulse Resp B/P (MAP) Pulse Ox O2 Delivery O2 Flow Rate FiO2 10/17/17 12:40 97.4 92 20 125/68 (87) 100 10/17/17 10:00 88 10/17/17 08:07 100 Nasal Cannula 2.00 10/17/17 08:00 86 10/17/17 08:00 98.6 86 12 166/79 (108) 100 10/17/17 06:00 96 10/17/17 04:00 90 10/17/17 04:00 98.2 90 26 161/84 (109) 99 10/17/17 02:00 88 10/17/17 00:00 90 10/17/17 00:00 98.6 90 15 155/70 (98) 100 10/16/17 22:00 92 10/16/17 20:00 90 10/16/17 20:00 98.5 90 13 174/79 (110) 100 10/16/17 19:36 100 Nasal Cannula 2.00 10/16/17 18:00 91 10/16/17 16:56 10/16/17 16:00 90 10/16/17 14:45 98.4 89 14 161/76 (104) 100 10/16/17 14:45 89 (Jasmyne Bee) -: 10/17/17 0435 10/17/17 0435 Microbiology 10/17/17 Legionella Antigen, Received Pending 10/17/17 Streptococcus pneumoniae Antigen (M, Received Pending Imaging Last 72 hours Impressions Chest X-Ray 10/16/17 0348 Signed Impressions: Service Date/Time: Monday, October 16, 2017 04:06 - CONCLUSION: New left lower lobe infiltrate. Julio Blanco Jr., MD Neck CTA 10/16/17 0000 Signed Impressions: Service Date/Time: Monday, October 16, 2017 13:23 - CONCLUSION: No evidence of hemodynamic significant lesion. There is 0%% on the right and zero on the left. Naresh Glass MD Head CTA 10/16/17 0000 Signed Impressions: Service Date/Time: Monday, October 16, 2017 13:23 - CONCLUSION: Unremarkable CT angiography of the brain. Naresh Glass MD Head CT 10/16/17 0000 Signed Impressions: Service Date/Time: Monday, October 16, 2017 13:09 - CONCLUSION: No acute disease. Randy Milligan MD Brain MRI 10/16/17 0000 Signed Impressions: Service Date/Time: Monday, October 16, 2017 20:59 - CONCLUSION: 1. No acute intracranial abnormality. 2. Old lacunar infarcts in the cerebellum bilaterally. 3. Chronic ischemic changes the brainstem. Emmanuel Azul MD Tubes & Lines Comment Tay (Cristal,Jasmyne B. [employer] SALESPERSON) Physical Exam General Appearance: Well Developed, No Acute Distress, Comfortable (Cristal,Jasmyne B. [employer] SALESPERSON) Eyes Eye Exam: Pupils Equal (Cristal,Jasmyne B. [employer] SALESPERSON) Throat Throat Exam: Oral Mucosa [place] & Moist (Cristal,Jasmyne B. [employer] SALESPERSON) Pulmonary Resp Exam: Clear Bilaterally, Breath Sounds Equal (Cristal,Jasmyne B. [employer] SALESPERSON) Cardiology CV Exam: Regular, Normal Sinus Rhythm (Cristal,Jasmyne B. [employer] SALESPERSON) Gastrointestinal/Abdomen GI Exam: Soft, Non-Tender (Cristal,Jasmyne B. [employer] SALESPERSON) Musculoskeletal MS Exam: Normal Tone MS Remarks left TMA; right great toe wound (Cristal,Jasmyne B. [employer] SALESPERSON) Integumentary Skin Exam: Warm, Dry (Cristal,Jasmyne B. [employer] SALESPERSON) Extremeties Extremities Exam: No Edema, Pedal Pulses Palpable (Cristal,Jasmyne B. [employer] SALESPERSON) Neurologic Neuro Exam: Alert, Awake, Oriented, Speech Clear, Moving All Extremities (Cristal,Jasmyne B. [employer] SALESPERSON) Psychiatric Psych Exam: Appropriate Responses (CristalJasmyne B. [employer] SALESPERSON) Assessment/Plan Discussed Condition With: Patient Assessment Summary: Anemia of CKD, Hypertension, Diabetes Mellitus, End Stage Renal Disease Problem List: (1) ESRD (end stage renal disease) ICD Codes: N18.6 - End-stage renal disease Status: Resolved Plan: Typical MWF dialysis. Had treatment yesterday due to missing treatment. Seen during dialysis on a 2K, 350 BFR, goal 3.5L UF Intermittently monitor electrolytes. Mildly hyperkalemic today. AVF functions well. Avoid IVF, gadolinium. High protein diet is ordered. Remove condom catheter. (2) Altered mental status ICD Codes: R41.82 - Altered mental status, unspecified Plan: New seizure. Neuro is following Blood cultures ordered. Being treated for pneumonia with PO Zithromax. On Unasyn for osteomyelitis. May be due to uremia? (3) HTN (hypertension) ICD Codes: I10 - Essential (primary) hypertension Status: Chronic Plan: His home medications have been resumed. Permanent Comment: Last Edited By: Jasmyne Bee on Jul 11, 2017 15:31 (4) DM (diabetes mellitus) ICD Codes: E11.9 - Type 2 diabetes mellitus without complications Status: Chronic Plan: He is a brittle diabetic. Monitor glucose carefully, using insulin if needed. Diet advanced, stop D10. (5) Anemia ICD Codes: D64.9 - Anemia, unspecified Plan: Epogen with dialysis. Monitor hemoglobin. (6) Osteomyelitis ICD Codes: M86.9 - Osteomyelitis, unspecified Status: Acute Plan: He has a tay in place. Unasyn ordered daily until November 07. (7) Bone metabolism disorder ICD Codes: E88.9 - Metabolic disorder, unspecified; M90.80 - Osteopathy in diseases classified elsewhere, unspecified site Status: Acute Plan: On Renvela with meals. Monitor phosphorus intermittently. (Jasmyne Bee [facility]) Problem List: (1) ESRD (end stage renal disease) ICD Codes: N18.6 - End-stage renal disease Status: Resolved Plan: Typical MWF dialysis. Had treatment yesterday due to missing treatment. Seen during dialysis on a 2K, 350 BFR, goal 3.5L UF Intermittently monitor electrolytes. Mildly hyperkalemic today. AVF functions well. Avoid IVF, gadolinium. High protein diet is ordered. Remove condom catheter. (2) Altered mental status ICD Codes: R41.82 - Altered mental status, unspecified Plan: New seizure. Neuro is following Blood cultures ordered. Being treated for pneumonia with PO Zithromax. On Unasyn for osteomyelitis. May be due to uremia? (3) HTN (hypertension) ICD Codes: I10 - Essential (primary) hypertension Status: Chronic Plan: His home medications have been resumed. Permanent Comment: Last Edited By: Jasmyne Bee on Jul 11, 2017 15:31 (4) DM (diabetes mellitus) ICD Codes: E11.9 - Type 2 diabetes mellitus without complications Status: Chronic Plan: He is a brittle diabetic. Monitor glucose carefully, using insulin if needed. Diet advanced, stop D10. (5) Anemia ICD Codes: D64.9 - Anemia, unspecified Plan: Epogen with dialysis. Monitor hemoglobin. (6) Osteomyelitis ICD Codes: M86.9 - Osteomyelitis, unspecified Status: Acute Plan: He has a tay in place. Unasyn ordered daily until November 07. (7) Bone metabolism disorder ICD Codes: E88.9 - Metabolic disorder, unspecified; M90.80 - Osteopathy in diseases classified elsewhere, unspecified site Status: Acute Plan: On Renvela with meals. Monitor phosphorus intermittently. Plan patient was seen and examined. Mental status slightly better, still somewhat agitated. Neurology on the case. Seen during dialysis. Notes were reviewed. Agree with above assessment and plan. (Maurice Schultz MD) Jasmyne Bee Oct 17, 2017 12:55 Maurice Schultz MD Oct 17, 2017 18:00
--- NOTE | 2017-10-17 14:36 | PD.WCN.NOT ---
Wound Consult Description: Wound consult ordered by for left foot diabetic ulcer with osteomyelitis. Communicated with: Ubaldo Carroll, R3 Recommendation: 1) Cleanse left lower foot surgical incision with normal saline pat dry. 2) Apply Maxsorb ll cut to fit wound base to dehiscenced area then Cover with non adhering gauze dressing 3) Secure with rolled gauze or Prudencio bandage /Paper tape. 4) Apply walking boot when patient is ambulating. 5) Follow up with Surgeon and out patient wound care. 6) Perform dressing/incisional care every 3-5 days or as needed for exudate or dislodgement till seen by surgeon. Additional Information: Patient was seen today [address] [place] by sports book writer and Ubaldo Carroll for assessment of left lower foot all digit amputation. Incision presents clean intact sutures scant Serosanguineous drainage. Medial incisional area slight dehiscence noted.Incision line measures ~9.6cm x ~1.2cm with no foul odor nor signs and symptoms of infection. Incision cleansed with normal saline pat dry Maxsorb ll cut to fit wound base applied to dehiscence area and adaptic gauze applied to suture line covered with non adhering dressing and secured with rolled gauze and tape.Dressing dated and signed.Intact Scab measuring ~2.0cm x ~2.0cm noted to right great toe cleansed with normal saline apt dry painted with povidone iodine swab.Bilateral lower extremities floated on 2 pillows for comfort. Patient verbalized understanding of dressing change , signs and symptoms of infection and importance of following up appointments. Eron Dewitt [facility] Oct 17, 2017 14:36
[2017-10-17] MEDS: VITAMIN B CMPLX/VITC/FOLIC AC CAP PO SCH (15:25)
[2017-10-17] MEDS ORDERED: NALOXONE HCL 0.4 MG/ML AMP IV PUSH PRN (16:30)
--- NOTE | 2017-10-17 17:34 | HHI.PR ---
Review/Management Daily Summary 10/17 he was seen early am and was much improved appeared remarkably better neuro, oriented overall moving limbs equally and promptly eeg negative as well mri probable metabolic encephalopathy, seizure also a possibility monitor clinically for now Subjective Subjective Comments No more acute events reported this am No headache Active Medications Current Medications Medications (Trade) Dose Ordered Sig/April Route Start Time Stop Time Status Last Admin (NS Flush) 2 ml UNSCH PRN IV FLUSH 10/16/17 07:30 (NS Flush) 2 ml BID IV FLUSH 10/16/17 09:00 10/17/17 09:57 (Tylenol) 650 mg Q4H PRN PO 10/16/17 07:30 (Zofran Inj) 4 mg Q6H PRN IVP 10/16/17 07:30 (Narcan Inj) 0.4 mg UNSCH PRN IV PUSH 10/16/17 07:30 (Odette-Colace) 1 tab BID PO 10/16/17 09:00 10/17/17 09:56 (Milk Of Magnesia Liq) 30 ml Q12H PRN PO 10/16/17 07:30 (Senokot) 17.2 mg Q12H PRN PO 10/16/17 07:30 (Dulcolax Supp) 10 mg DAILY PRN RECTAL 10/16/17 07:30 (Lactulose Liq) 30 ml DAILY PRN PO 10/16/17 07:30 (Heparin Inj) 5,000 units Q8HR SQ 10/16/17 14:00 10/17/17 15:27 (Lipitor) 40 mg HS PO 10/16/17 21:00 (Symbicort 160-4.5 Mcg Inh) 1 puff Q12HR INH 10/16/17 11:00 10/17/17 09:57 (Vitamin D3) 1,000 units DAILY PO 10/17/17 09:00 10/17/17 09:56 (Cymbalta Dr) 30 mg DAILY PO 10/17/17 09:00 10/17/17 09:56 (Renvela) 1,600 mg TIDAC PO 10/16/17 12:00 10/17/17 17:14 (Nephrocaps) 1 cap DAILY PO 10/17/17 09:00 10/17/17 15:25 (D50w (Vial) Inj) 50 ml UNSCH PRN IV PUSH 10/16/17 09:30 10/16/17 17:23 (Glucagon Inj) 1 mg UNSCH PRN OTHER 10/16/17 09:30 (NovoLOG SUPPLEMENTAL SCALE) 1 ACHS SLIDING SCALE SQ 10/16/17 12:00 10/17/17 08:46 Sodium Chloride 1,000 ml @ 0 mls/hr Q0M PRN OTHER 10/16/17 09:32 10/17/17 11:00 (Heparin Inj) 8,000 units UNSCH PRN IV FLUSH 10/16/17 09:45 Sodium Chloride 1,000 ml @ 200 mls/hr Q5H PRN IV 10/16/17 09:32 Sodium Chloride 1,000 ml @ 0 mls/hr Q0M PRN OTHER 10/16/17 09:32 (Mannitol Inj) 12.5 gm UNSCH PRN IV 10/16/17 09:45 Albumin Human 100 ml @ 60 mls/hr UNSCH PRN IV 10/16/17 09:45 (NS Flush) 5 ml UNSCH PRN IV FLUSH 10/16/17 09:45 (Heparin Inj) UNSCH PRN .XX 10/16/17 09:45 (Gentamicin (Dialysis) Inj) 20 mg UNSCH PRN OTHER 10/16/17 09:45 (Zofran Inj) 4 mg UNSCH PRN IV PUSH 10/16/17 09:45 10/16/17 11:00 (Tylenol) 650 mg UNSCH PRN PO 10/16/17 09:45 (Benadryl) 25 mg UNSCH PRN PO 10/16/17 09:45 (Nitrostat Sl) 0.4 mg UNSCH PRN SL 10/16/17 09:45 (Catapres) 0.1 mg UNSCH PRN PO 10/16/17 09:45 (Epogen Inj) 10,000 units UNSCH PRN IV PUSH 10/16/17 09:45 10/17/17 11:00 (Gelfoam 12 Mm/7 Mm Top) 1 foam UNSCH PRN TOP 10/16/17 09:45 10/17/17 11:00 (Duoneb Neb) 1 ampule Q4HR WHILE AWAKE NEB NEB 10/16/17 12:00 10/17/17 16:00 (Levaquin) 500 mg Q48H PO 10/18/17 12:00 Piperacillin Sod/ Tazobactam Sod 50 ml @ 100 mls/hr Q8H IV 10/17/17 06:00 10/17/17 16:06 (Norvasc) 5 mg DAILY PO 10/17/17 09:15 10/17/17 10:49 (Levemir Inj) 10 units HS SQ 10/17/17 21:00 (Neurontin) 200 mg TID PO 10/17/17 18:00 (Friendship 7.5-325 Mg) 1 tab Q4H PRN PO 10/17/17 16:30 (Narcan Inj) 0.4 mg UNSCH PRN IV PUSH 10/17/17 16:30 Allergies Allergies Coded Allergies No Known Allergies (Verified Allergy, Unknown, 10/16/17) Exam I&O / VS 10/17/17 10/17/17 10/18/17 15:00 23:00 07:00 Output Total 3500 ml Balance -3500 ml Hemodialysis 3500 ml Vital Signs Date Time Temp Pulse Resp B/P (MAP) Pulse Ox O2 Delivery O2 Flow Rate FiO2 10/17/17 16:54 100 10/17/17 15:45 98.1 93 20 120/59 (79) 100 10/17/17 12:40 97.4 92 20 125/68 (87) 100 10/17/17 10:00 88 10/17/17 08:07 100 Nasal Cannula 2.00 10/17/17 08:00 86 10/17/17 08:00 98.6 86 12 166/79 (108) 100 10/17/17 06:00 96 10/17/17 04:00 90 10/17/17 04:00 98.2 90 26 161/84 (109) 99 10/17/17 02:00 88 10/17/17 00:00 90 10/17/17 00:00 98.6 90 15 155/70 (98) 100 10/16/17 22:00 92 10/16/17 20:00 90 10/16/17 20:00 98.5 90 13 174/79 (110) 100 10/16/17 19:36 100 Nasal Cannula 2.00 10/16/17 18:00 91 Objective Radiology Results Last 48 hours Impressions Chest X-Ray 10/16/17 6281 Signed Impressions: Service Date/Time: Monday, October 16, 2017 04:06 - CONCLUSION: New left lower lobe infiltrate. Julio Blanco Jr., MD Neck CTA 10/16/17 0000 Signed Impressions: Service Date/Time: Monday, October 16, 2017 13:23 - CONCLUSION: No evidence of hemodynamic significant lesion. There is 0%% on the right and zero on the left. Naresh Glass MD Head CTA 10/16/17 0000 Signed Impressions: Service Date/Time: Monday, October 16, 2017 13:23 - CONCLUSION: Unremarkable CT angiography of the brain. Naresh Glass MD Head CT 10/16/17 0000 Signed Impressions: Service Date/Time: Monday, October 16, 2017 13:09 - CONCLUSION: No acute disease. Randy Milligan MD Brain MRI 10/16/17 0000 Signed Impressions: Service Date/Time: Monday, October 16, 2017 20:59 - CONCLUSION: 1. No acute intracranial abnormality. 2. Old lacunar infarcts in the cerebellum bilaterally. 3. Chronic ischemic changes the brainstem. Emmanuel Azul MD Micro and Labs Laboratory Tests Test 10/17/17 04:35 White Blood Count 9.0 Red Blood Count 3.72 Hemoglobin 9.6 Hematocrit 31.3 Mean Corpuscular Volume 84.0 Mean Corpuscular Hemoglobin 25.7 Mean Corpuscular Hemoglobin Concent 30.6 Red Cell Distribution Width 20.0 Platelet Count 252 Mean Platelet Volume 9.7 Neutrophils (%) (Auto) 68.0 Lymphocytes (%) (Auto) 12.0 Monocytes (%) (Auto) 9.5 Eosinophils (%) (Auto) 8.3 Basophils (%) (Auto) 2.2 Neutrophils # (Auto) 6.1 Lymphocytes # (Auto) 1.1 Monocytes # (Auto) 0.8 Eosinophils # (Auto) 0.7 Basophils # (Auto) 0.2 CBC Comment DIFF FINAL Differential Comment Blood Urea Nitrogen 61 Creatinine 9.32 Random Glucose 225 Total Protein 6.9 Albumin 2.4 Calcium Level 8.3 Phosphorus Level 7.3 Magnesium Level 2.2 Alkaline Phosphatase 282 Aspartate Amino Transf (AST/SGOT) 35 Alanine Aminotransferase (ALT/SGPT) 39 Total Bilirubin 0.8 Sodium Level 139 Potassium Level 5.5 Chloride Level 101 Carbon Dioxide Level 24.5 Anion Gap 14 Estimat Glomerular Filtration Rate 7 Date/Time Source Procedure Growth Status 10/16/17 04:20 Blood Peripheral Aerobic Blood Culture - Preliminary NO GROWTH IN 1 DAY Resulted 10/16/17 04:20 Blood Peripheral Anaerobic Blood Culture - Preliminary NO GROWTH IN 1 DAY Resulted 10/17/17 12:00 Urine Clean Catch Legionella Antigen - Final PRESUMPTIVE NEGATIVE FOR LEGIONELLA P... Complete 10/17/17 12:00 Urine Clean Catch Streptococcus pneumoniae Antigen (M - Final PRESUMPTIVE NEGATIVE FOR STREPTOCOCCU... Complete Ibrahima Hoyt MD Oct 17, 2017 17:34
[2017-10-17] MEDS: ACETAMINOPHEN/HYDROcodone 325 MG/7.5 MG TAB PO PRN (18:17)
[2017-10-17] MEDS ORDERED: INSULIN DETEMIR 100 UNITS/ML VIAL SQ SCH (21:00)
[2017-10-17] MEDS: ATORVASTATIN 40 MG TAB PO SCH (22:11)
[2017-10-17] MEDS ORDERED: GLUCAGON 1 MG/ML VIAL OTHER PRN (23:30)
[2017-10-17] MEDS ORDERED: DEXTROSE 50% IN WATER 50 ML VIAL(D50) IV PUSH PRN (23:30)
[2017-10-18] VITALS (9 sets, daily range): BP systolic 121–151; BP diastolic 57–81; PULSE 48–114; RESP 18; TEMP 97.7–98.7; O2SAT 91–97
[2017-10-18 04:55] LABS: HEMATOCRIT 26.2 % (39.0-51.0); HEMOGLOBIN 8.3 GM/DL (13.0-17.0); MEAN CELL VOLUME 84.1 FL (80.0-100.0); MEAN CORPUSCULAR HEMOGLOBIN 26.8 PG (27.0-34.0); MEAN CORPUSCULAR HGB CONC 31.9 % (32.0-36.0); MEAN PLATELET VOLUME 9.4 FL (7.0-11.0); PLATELET COUNT 238 TH/MM3 (150-450); RED BLOOD COUNT 3.11 MIL/MM3 (4.50-5.90); RED CELL DISTRIBUTION WIDTH 19.7 % (11.6-17.2); WHITE BLOOD COUNT 8.9 TH/MM3 (4.0-11.0)
[2017-10-18] MEDS: INSULIN ASPART SUPPLEMENTAL SCALE SQ SCH ×4 (04:56→16:25)
[2017-10-18 05:08] LABS: BICARBONATE 29.6 MEQ/L (21.0-32.0); CALCIUM 8.1 MG/DL (8.5-10.1); MAGNESIUM 2.5 MG/DL (1.5-2.5); PHOSPHORUS 7.6 MG/DL (2.5-4.9)
[2017-10-18] MEDS: PIPERACIL-TAZO 2.25 GM PREMIX 50 ML IV SCH ×2 (06:24→14:19)
[2017-10-18] MEDS: HEPARIN SODIUM - SQ 10,000 UNITS/ML VIAL SQ SCH ×2 (06:24→14:19)
--- NOTE | 2017-10-18 06:53 | MB ---
cc: LIANA RAINES DATE OF CONSULTATION 10/17/2016 CHIEF COMPLAINT Status post left foot a transmetatarsal amputation. HISTORY OF PRESENT ILLNESS Mr. Aguilera is a 57-year-old male patient well-known to my partner Dr. Judge. She performed a transmetatarsal amputation of the left foot secondary to peripheral vascular disease and osteomyelitis on October 04. The patient was discharged to a SNF after surgery. He states that he did try to follow up with Dr. Judge, but the SNF would not arrange transportation. He states that he had pain in the foot, but since being in the hospital it has improved. He was admitted for hypoglycemia nausea and vomiting. PAST MEDICAL HISTORY Includes: 1. ESRD 2. Diabetes mellitus 3. Hypertension 4. Anemia 5. Chronic kidney disease 6. HLP 7. COPD PAST SURGICAL HISTORY Includes: 1. An AV fistula 2. Left foot transmetatarsal amputation 3. A Ta catheter IJ line 4. A revascularization of the left lower extremity. FAMILY HISTORY The patient has no family in the area. He does have two daughters in [place]. He denies any alcohol or drug abuse. ALLERGIES NO KNOWN DRUG ALLERGIES. MEDICATIONS Please see list. PHYSICAL EXAM VITAL SIGNS: Temperature is 98.1 with a T-max of 98.6, pulse 93, respiratory rate 20, blood pressure 120/59, pulse ox 100% O2 on room air. LABORATORY DATA White count 9.0 down from 10.7, hemoglobin 9.6, hematocrit 31.3, platelets 251, INR 1.2. Chemistry sodium 139, potassium 5.5, chloride 101, carbon dioxide 24.5, BUN 61, random glucose 225. PHYSICAL EXAM On physical exam, the right foot is unremarkable. The left foot has decreased DP and PT pulses. Cap fill time was not accessible. Sensation is grossly diminished. Transmetatarsal amputation was noted. Sutures are intact. There is a dorsal area approximately 2 cm x 2 cm which shows early ischemia and a small area on the medial aspect of the foot which shows some early dehiscence approximately 0.1 cm x 1 cm x 0. No erythema. Mild sanguinous drainage at the dehiscent site. No malodor. No exposed bone or tendon. ASSESSMENT/PLAN 1. Status post transmetatarsal amputation. - Sunday, Sunday, Sunday dressing changes, orders entered for nursing staff. - No signs of acute infection. - Questionable healing, the patient may need more surgery in the future, but at this time, he is stable from a podiatric Standpoint. - Follow up with Dr. Judge early next week or within three to five days of discharge. Thank you for this consultation. Liana CHAMBERLAIN /5:34 PM /6:27 AM MTDD
[2017-10-18] MEDS: RESP: ALBUTEROL 2.5 MG/IPRATROPIUM 0.5 MG NEB (SCH) NEB ×3 (08:00→16:00)
[2017-10-18] MEDS ORDERED: INSULIN ASPART SUPPLEMENTAL SCALE SQ SCH (08:00)
[2017-10-18] MEDS: DOCUSATE SODIUM 50 MG/SENNA 8.6 MG TAB PO SCH (08:37)
[2017-10-18] MEDS: CHOLECALCIFEROL (VIT D3) 1000 UNIT TAB PO SCH (08:38)
[2017-10-18] MEDS: SODIUM CHLORIDE 0.9% FLUSH 10 ML FLUSH IV FLUSH SCH (08:38)
[2017-10-18] MEDS: DULoxetine HCl DR 30 MG CAP PO SCH (08:38)
[2017-10-18] MEDS: SEVELAMER CARBONATE 800 MG TAB PO SCH ×2 (08:38→12:07)
[2017-10-18] MEDS: VITAMIN B CMPLX/VITC/FOLIC AC CAP PO SCH (08:38)
[2017-10-18] MEDS: GABAPENTIN 100 MG CAP PO SCH ×2 (08:38→12:07)
[2017-10-18] MEDS: amLODIPine BESYLATE 5 MG TAB PO SCH (08:38)
[2017-10-18] MEDS: BUDESONIDE-FORMOTEROL 160/4.5 MCG INHALER INH SCH (08:38)
[2017-10-18] MEDS ORDERED: INSULIN DETEMIR 100 UNITS/ML VIAL SQ SCH (09:00)
[2017-10-18] MEDS ORDERED: LEVOFLOXACIN 500 MG TAB PO SCH (12:00)
[2017-10-18] MEDS: ACETAMINOPHEN/HYDROcodone 325 MG/7.5 MG TAB PO PRN (12:07)
--- NOTE | 2017-10-18 12:31 | HHI.NPPN ---
Subjective General Problems: Anemia Renal Failure: Chronic, End Stage Renal Disease Interval History More alert. Confusion is improving. Dialyzed yesterday. (Jasmyne Bee) Review of Systems General Constitutional: Fatigue (Jasmyne Bee) Objective Data Data Vital Signs Date Time Temp Pulse Resp B/P (MAP) Pulse Ox O2 Delivery O2 Flow Rate FiO2 10/18/17 12:00 98.0 90 18 129/81 (97) 97 10/18/17 10:46 90 10/18/17 07:38 98.3 89 18 133/62 (85) 96 10/18/17 05:09 98.4 80 18 146/65 (92) 96 10/18/17 03:55 86 10/18/17 01:05 98.7 98 18 147/66 (93) 95 10/18/17 00:00 97 10/17/17 21:10 98.6 102 18 158/74 (102) 95 10/17/17 20:03 98 10/17/17 16:54 100 10/17/17 15:45 98.1 93 20 120/59 (79) 100 10/17/17 12:40 97.4 92 20 125/68 (87) 100 (Jasmyne Bee) -: 10/18/17 0426 10/18/17 0426 Tubes & Lines Comment Tay (Jasmyne Bee) Physical Exam General Appearance: Well Developed, No Acute Distress, Comfortable (Jasmyne eBe) Eyes Eye Exam: Pupils Equal (Jasmyne Bee) Throat Throat Exam: Oral Mucosa [place] & Moist (Jasmyne Bee) Pulmonary Resp Exam: Clear Bilaterally, Breath Sounds Equal (Jasmyne Bee) Cardiology CV Exam: Regular, Normal Sinus Rhythm (Jasmyne Bee) Gastrointestinal/Abdomen GI Exam: Soft, Non-Tender (Jasmyne Bee) Musculoskeletal MS Exam: Normal Tone MS Remarks left TMA; right great toe wound (Jasmyne Bee) Integumentary Skin Exam: Warm, Dry (Jasmyne Bee) Extremeties Extremities Exam: No Edema, Pedal Pulses Palpable (Jasmyne Bee) Neurologic Neuro Exam: Alert, Awake, Oriented, Speech Clear, Moving All Extremities (Jasmyne Bee) Psychiatric Psych Exam: Appropriate Responses (Jasmyne Bee) Assessment/Plan Discussed Condition With: Patient Assessment Summary: Anemia of CKD, Hypertension, Diabetes Mellitus, End Stage Renal Disease Problem List: (1) ESRD (end stage renal disease) ICD Codes: N18.6 - End-stage renal disease Status: Resolved Plan: Typical MWF dialysis. 3500 ml UF yesterday Intermittently monitor electrolytes. AVF functions well. Avoid IVF, gadolinium. High protein diet is ordered. He has outpatient arrangements in [facility] (2) Altered mental status ICD Codes: R41.82 - Altered mental status, unspecified Plan: New seizure. Neuro is following Blood cultures ordered. Being treated for pneumonia with PO Zithromax. On Unasyn for osteomyelitis. Improving, May have been due to uremia? (3) HTN (hypertension) ICD Codes: I10 - Essential (primary) hypertension Status: Chronic Plan: His home medications have been resumed. Permanent Comment: Last Edited By: Jasmyne Bee on Jul 11, 2017 15:31 (4) DM (diabetes mellitus) ICD Codes: E11.9 - Type 2 diabetes mellitus without complications Status: Chronic Plan: He is a brittle diabetic. Monitor glucose carefully, using insulin if needed. (5) Anemia ICD Codes: D64.9 - Anemia, unspecified Plan: Epogen with dialysis. Monitor hemoglobin. (6) Osteomyelitis ICD Codes: M86.9 - Osteomyelitis, unspecified Status: Acute Plan: He has a tay in place. Unasyn ordered daily until November 07. (7) Bone metabolism disorder ICD Codes: E88.9 - Metabolic disorder, unspecified; M90.80 - Osteopathy in diseases classified elsewhere, unspecified site Status: Acute Plan: On Renvela with meals. Monitor phosphorus intermittently. Plan p (Jasmyne Bee) Plan patient was seen and examined. Agree with above assessment and plan. (Maurice Schultz MD) Jasmyne Bee Oct 18, 2017 12:31 Maurice Schultz MD Oct 18, 2017 15:32
[2017-10-18] MEDS ORDERED: GABA100C4 PO (13:11)
[2017-10-18] MEDS ORDERED: AMLO5 PO (13:11)
[2017-10-18] MEDS ORDERED: LEVEMIR SQ (13:11)
[2017-10-18] MEDS ORDERED: LEVA500T33 PO (13:11)
--- NOTE | 2017-10-18 13:13 | HHI.DCPOC ---
Discharge Care Plan Diagnosis: (1) Dependent on hemodialysis (2) Diabetes mellitus with hyperglycemia (3) PAD (peripheral artery disease) (4) End stage renal disease (5) Ischemic ulcer diabetic foot (6) Pneumonia (7) Diabetes type 1, uncontrolled (8) Foot osteomyelitis, left (9) Status post amputation Goals to Promote Your Health * To prevent worsening of your condition and complications * To maintain your health at the optimal level Directions to Meet Your Goals Take your medications as prescribed Follow your dietary instruction Follow activity as directed Keep your appointments as scheduled Take your immunizations and boosters as scheduled If your symptoms worsen call your PCP, if no PCP go to Urgent Care Center or Emergency Room Smoking is Dangerous to Your Health. Avoid second hand smoke Call the 24-hour hour crisis hotline for domestic abuse at Albin Guerra MD R3 Oct 18, 2017 13:13
[2017-10-18] MEDS ORDERED: HYDR-3580 PO (14:56)
--- NOTE | 2017-10-18 16:39 | HHI.FPPN ---
Subjective Remarks Sitting up on side of bed, no distress. Complaining of left foot phantom pain. Otherwise no complaints this morning. No chest pain or shortness of breath. No abdominal pain. No nausea, vomiting, diarrhea. Has a good appetite, eating food during exam. Discussed discharge planning. He will go back to [facility]. (Albin Guerra MD R3) Objective Vitals Vital Signs Date Time Temp Pulse Resp B/P (MAP) Pulse Ox O2 Delivery O2 Flow Rate FiO2 10/18/17 15:41 114 18 151/71 (97) 91 10/18/17 13:29 97 10/18/17 12:00 98.0 90 18 129/81 (97) 97 10/18/17 10:46 90 10/18/17 07:38 98.3 89 18 133/62 (85) 96 10/18/17 05:09 98.4 80 18 146/65 (92) 96 10/18/17 03:55 86 10/18/17 01:05 98.7 98 18 147/66 (93) 95 10/18/17 00:00 97 10/17/17 21:10 98.6 102 18 158/74 (102) 95 10/17/17 20:03 98 10/17/17 16:54 100 I/O 10/17/17 10/17/17 10/17/17 10/18/17 10/18/17 10/18/17 07:00 15:00 23:00 07:00 15:00 23:00 Intake Total 239 ml 360 ml Output Total 0 ml 3500 ml Balance 239 ml -3500 ml 360 ml Intake Oral 0 ml 360 ml IV Total 239 ml Output Urine Total 0 ml Hemodialysis 3500 ml # Voids 0 # Bowel Movements 0 (Albin Guerra MD R3) Result Diagram: 10/18/17 0426 10/18/17 1530 Imaging Last 72 hours Impressions Chest X-Ray 10/16/17 0348 Signed Impressions: Service Date/Time: Monday, October 16, 2017 04:06 - CONCLUSION: New left lower lobe infiltrate. Julio Blanco Jr., MD Neck CTA 10/16/17 0000 Signed Impressions: Service Date/Time: Monday, October 16, 2017 13:23 - CONCLUSION: No evidence of hemodynamic significant lesion. There is 0%% on the right and zero on the left. Naresh Glass MD Head CTA 10/16/17 0000 Signed Impressions: Service Date/Time: Monday, October 16, 2017 13:23 - CONCLUSION: Unremarkable CT angiography of the brain. Naresh Glass MD Head CT 10/16/17 0000 Signed Impressions: Service Date/Time: Monday, October 16, 2017 13:09 - CONCLUSION: No acute disease. Randy Milligan MD Brain MRI 10/16/17 0000 Signed Impressions: Service Date/Time: Monday, October 16, 2017 20:59 - CONCLUSION: 1. No acute intracranial abnormality. 2. Old lacunar infarcts in the cerebellum bilaterally. 3. Chronic ischemic changes the brainstem. Emmanuel Azul MD Objective Remarks General: Sitting up on the side of the bed. Skin: Left foot s/p transmetatarsal amputation, sutures in place, area of dehiscence of left foot with serosanguineous non-purulent drainage, no surrounding cellulitis or tenderness to palpation, does not appear acutely infected. (examined prior, wrapped today). Site of Ta Catheter insertion appears clean and dry, not tender to palpation, no surrounding erythema. HEENT: Normocephalic, no conjunctivitis, no nasal discharge Neck: No thyromegaly or lymphadenopathy CV: RRR, no murmurs, rubs, or gallops, pulses intact, normal cap refill. AV fistula with palpable bruit. Lungs: CTAB Abdomen: Mild tenderness to palpation in the lower mid-abdomen, no rebound tenderness or guarding, normal bowel sounds Ext: No swelling, left foot amputation as above Neuro: Awake, alert, oriented X3 Procedures Hemodialysis (Albin Guerra MD R3) A/P Assessment and Plan 57 year old male with a history of ESRD on dialysis and left foot osteomyelitis presents with healthcare associated pneumonia and acute metabolic encephalopathy and delirium. Discharge Planning Plan for discharge back to [facility] facility. Will need to continue IV antibiotics through the Ta catheter long-term per infectious disease for his chronic osteomyelitis. Will continue Levaquin for his healthcare associated pneumonia, which Unasyn will also help to cover. Will need to continue MWF hemodialysis for ESRD. He has follow up appts with vascular surgery for PAD, infectious disease for osteomyelitis, podiatry for osteomyelitis, nephrology for ESRD and dialysis. and his primary care doctor. (Albin Guerra MD R3) Attending Attestation THIS CASE WAS DISCUSSED WITH THE RESIDENT PHYSICIAN Dr Bubba Guerra, Patient seen and examined. I HAVE REVIEWED THE RECORD AND AGREE WITH THE ABOVE NOTE AND PLAN OF CARE WAS DISCUSSED. I HAVE AUTHORIZED THE ORDER SET (Nabor Duarte MD) Problem List: (1) Healthcare-associated pneumonia ICD Codes: J18.9 - Pneumonia, unspecified organism Status: Acute Plan: Presented with acute delirium and left lower lobe infiltrate. White count normal. Remains afebrile. Lactic acid is normal. Likely healthcare associated pneumonia given long stay in hospital and SNF. Also has history of COPD, but does not appear to be in acute exacerbation at this point. VBG essentially normal at admission, no respiratory distress on exam. Overall appearing much better, cough nearly resolved, lethargy and altered mental status completely resolved. Pneumococcal and legionella results are negative. Blood cultures remain negative. - Cefepime 1g daily started 10/16/17, switched to Zosyn 2.28 q8hrs on 10/17/17. Will continue with Unasyn as an outpatient for his osteomyelitis which will also help cover HCAP. - Levaquin 750 mg once, followed by 500 mg q48 hours. Will continue as an outpatient for a few more doses. - Pulse oximetry and O2 supplementation as needed. (2) Delirium due to another medical condition, acute, hypoactive ICD Codes: F05 - Delirium due to known physiological condition Status: Resolved Plan: Acute delirium likely secondary to pneumonia and uremia. Also has left foot osteomyelitis that is stable on Unasyn, and a Ta IJ catheter that looks clean. Missed hemodialysis on 10/15 due to acute illness. Electrolytes appear fairly stable, BUN significantly elevated at admission. Phosphorus is elevated at baseline. VBG is essentially normal. Stroke alert called on 10/16 for increasing confusion, MRI brain negative for acute stroke, CTA head and neck negative. EEG shows encephalopathy but no seizures. On day two he was appearing much improved cognitively. By discharge, acute delirium has completely resolved and he is back to baseline cognitively. - Consulted nephrology for hemodialysis, completed on Sunday and Sunday. - Antibiotics for healthcare associated pneumonia, see above. - Avoid sedatives as much as possible. - Re-orientation, blinds up in day, dark and quiet at night. (3) ESRD on hemodialysis ICD Codes: N18.6 - End stage renal disease; Z99.2 - Dependence on renal dialysis Status: Chronic Plan: ESRD on hemodialysis MWF. - Nephrology on board. - Monitor electrolytes daily. - Continue Renvela 1600 mg tidac - Epoetin with dialysis for anemia of renal disease. - Avoid nephrotoxic agents as much as possible. - Renally dose medications. (4) Diabetes type 1, uncontrolled ICD Codes: E10.65 - Type 1 diabetes mellitus with hyperglycemia Status: Chronic Plan: Diabetes type 1, complicated by ESRD on dialysis, peripheral arterial disease, and left foot infection. - Low dose sliding scale Novolog. - Levemir 10 units bid - Monitor blood glucoses - Has history of very brittle diabetes, will need close monitoring and titration of insulin outpatient. (5) Foot osteomyelitis, left ICD Codes: M86.9 - Osteomyelitis, unspecified Status: Chronic Plan: Osteomyelitis of the left foot, receiving Unasyn until November 07. Foot does not appear acutely infected. Has some dehiscence with serosanguineous but no purulent drainage, no foul smell, no surrounding erythema or pain. - Currently on Zosyn to cover HCAP, Unasyn on hold. Continue Unasyn 3g daily via Ta catheter until November 07 after discharge. - Consult wound care nurse for recommendations on wound management of left foot - Podiatry saw patient in hospital, recommend follow up as an outpatient which has been arranged. (6) No contraindication to deep vein thrombosis (DVT) prophylaxis ICD Codes: Z78.9 - Other specified health status Status: Acute Plan: Heparin 5000 units tid Bilateral SCD's (7) Nutrition, metabolism, and development symptoms ICD Codes: R63.8 - Other symptoms and signs concerning food and fluid intake Status: Acute Plan: Renal diet Electrolytes stable, phosphorus elevated. Hemodialysis per nephrology. Renvela for hyperphosphatemia. PO hydration (Albin Guerra MD R3) Problem Qualifiers (1) Foot osteomyelitis, left: Qualified Codes: M86.9 - Osteomyelitis, unspecified Albin Guerra MD R3 Oct 18, 2017 16:39 Nabor Duarte MD Oct 19, 2017 15:26
--- NOTE | 2017-10-19 12:22 | HHI.DS ---
Discharge Summary Admission Date Oct 16, 2017 at 07:21 Discharge Date: Oct 18, 2017 Admitting Diagnosis (1) Healthcare-associated pneumonia Diagnosis: Principal Plan: Presented with acute delirium and left lower lobe infiltrate. White count normal. Remains afebrile. Lactic acid is normal. Likely healthcare associated pneumonia given long stay in hospital and SNF. Also has history of COPD, but does not appear to be in acute exacerbation at this point. VBG essentially normal at admission, no respiratory distress on exam. Overall appearing much better, cough nearly resolved, lethargy and altered mental status completely resolved. Pneumococcal and legionella results are negative. Blood cultures remain negative. - Cefepime 1g daily started 10/16/17, switched to Zosyn 2.28 q8hrs on 10/17/17. Will continue with Unasyn as an outpatient for his osteomyelitis which will also help cover HCAP. - Levaquin 750 mg once, followed by 500 mg q48 hours. Will continue as an outpatient for a few more doses. - Pulse oximetry and O2 supplementation as needed. ICD Codes: J18.9 - Pneumonia, unspecified organism Status: Acute (2) Delirium due to another medical condition, acute, hypoactive Diagnosis: Principal Plan: Acute delirium likely secondary to pneumonia and uremia. Also has left foot osteomyelitis that is stable on Unasyn, and a Ta IJ catheter that looks clean. Missed hemodialysis on 10/15 due to acute illness. Electrolytes appear fairly stable, BUN significantly elevated at admission. Phosphorus is elevated at baseline. VBG is essentially normal. Stroke alert called on 10/16 for increasing confusion, MRI brain negative for acute stroke, CTA head and neck negative. EEG shows encephalopathy but no seizures. On day two he was appearing much improved cognitively. By discharge, acute delirium has completely resolved and he is back to baseline cognitively. - Consulted nephrology for hemodialysis, completed on Sunday and Sunday. - Antibiotics for healthcare associated pneumonia, see above. - Avoid sedatives as much as possible. - Re-orientation, blinds up in day, dark and quiet at night. ICD Codes: F05 - Delirium due to known physiological condition Status: Resolved (3) ESRD on hemodialysis Diagnosis: Secondary Plan: ESRD on hemodialysis MWF. - Nephrology on board. - Monitor electrolytes daily. - Continue Renvela 1600 mg tidac - Epoetin with dialysis for anemia of renal disease. - Avoid nephrotoxic agents as much as possible. - Renally dose medications. ICD Codes: N18.6 - End stage renal disease; Z99.2 - Dependence on renal dialysis Status: Chronic (4) Diabetes type 1, uncontrolled Diagnosis: Secondary Plan: Diabetes type 1, complicated by ESRD on dialysis, peripheral arterial disease, and left foot infection. - Low dose sliding scale Novolog. - Levemir 10 units bid - Monitor blood glucoses - Has history of very brittle diabetes, will need close monitoring and titration of insulin outpatient. ICD Codes: E10.65 - Type 1 diabetes mellitus with hyperglycemia Status: Chronic (5) Foot osteomyelitis, left Diagnosis: Secondary Plan: Osteomyelitis of the left foot, receiving Unasyn until November 07. Foot does not appear acutely infected. Has some dehiscence with serosanguineous but no purulent drainage, no foul smell, no surrounding erythema or pain. - Currently on Zosyn to cover HCAP, Unasyn on hold. Continue Unasyn 3g daily via Ta catheter until November 07 after discharge. - Consult wound care nurse for recommendations on wound management of left foot - Podiatry saw patient in hospital, recommend follow up as an outpatient which has been arranged. ICD Codes: M86.9 - Osteomyelitis, unspecified Status: Chronic (6) No contraindication to deep vein thrombosis (DVT) prophylaxis Diagnosis: Secondary Plan: Heparin 5000 units tid Bilateral SCD's ICD Codes: Z78.9 - Other specified health status Status: Acute (7) Nutrition, metabolism, and development symptoms Diagnosis: Secondary Plan: Renal diet Electrolytes stable, phosphorus elevated. Hemodialysis per nephrology. Renvela for hyperphosphatemia. PO hydration ICD Codes: R63.8 - Other symptoms and signs concerning food and fluid intake Status: Acute Consultants Nephrology, podiatry Procedures Hemodialysis Brief History 57 year old male with a history of recent transmetatarsal amputation of the left foot and osteomyelitis, receiving IV Unasyn long-term, type 1 diabetes, and ESRD on hemodialysis presents with acute delirium. Per patient he developed coughing and sputum production yesterday. He's also been having nausea and vomiting, unclear just how many times. He has diffuse mild abdominal pain that is non-focal. He presented with mild lethargy and confusion. He is oriented but takes extra time to think of the answer to questions, and you have to continually try to get his attention to get him to focus. Per patient, he has not felt febrile and is not having night sweats. He missed his hemodialysis session yesterday due to acute illness. He is on a MWF schedule. He also reports runny nose and a mild sore throat. He has a decreased appetite. He has been sleeping a lot. He reports no new medications. He has no headache, dizziness, blurry vision, chest pain, calf swelling or tenderness. CBC/BMP: 10/18/17 0426 10/18/17 1530 Significant Findings Laboratory Tests Test 10/17/17 04:35 10/18/17 04:26 10/18/17 15:30 Red Blood Count 3.72 MIL/MM3 (4.50-5.90) 3.11 MIL/MM3 (4.50-5.90) Hemoglobin 9.6 GM/DL (13.0-17.0) 8.3 GM/DL (13.0-17.0) Hematocrit 31.3 % (39.0-51.0) 26.2 % (39.0-51.0) Mean Corpuscular Hemoglobin 25.7 PG (27.0-34.0) 26.8 PG (27.0-34.0) Mean Corpuscular Hemoglobin Concent 30.6 % (32.0-36.0) 31.9 % (32.0-36.0) Red Cell Distribution Width 20.0 % (11.6-17.2) 19.7 % (11.6-17.2) Monocytes (%) (Auto) 9.5 % (0.0-8.0) Eosinophils (%) (Auto) 8.3 % (0.0-4.0) Basophils (%) (Auto) 2.2 % (0.0-2.0) Eosinophils # (Auto) 0.7 TH/MM3 (0-0.4) Blood Urea Nitrogen 61 MG/DL (7-18) 51 MG/DL (7-18) Creatinine 9.32 MG/DL (0.60-1.30) 8.00 MG/DL (0.60-1.30) Random Glucose 225 MG/DL (74-106) 479 MG/DL (74-106) 33 MG/DL (74-106) Albumin 2.4 GM/DL (3.4-5.0) Calcium Level 8.3 MG/DL (8.5-10.1) 8.1 MG/DL (8.5-10.1) Phosphorus Level 7.3 MG/DL (2.5-4.9) 7.6 MG/DL (2.5-4.9) Alkaline Phosphatase 282 U/L (45-117) Potassium Level 5.5 MEQ/L (3.5-5.1) Estimat Glomerular Filtration Rate 7 ML/MIN (>89) 9 ML/MIN (>89) Chloride Level 94 MEQ/L (98-107) PE at Discharge General: Sitting up on the side of the bed. Skin: Left foot s/p transmetatarsal amputation, sutures in place, area of dehiscence of left foot with serosanguineous non-purulent drainage, no surrounding cellulitis or tenderness to palpation, does not appear acutely infected. (examined prior, wrapped today). Site of Ta Catheter insertion appears clean and dry, not tender to palpation, no surrounding erythema. HEENT: Normocephalic, no conjunctivitis, no nasal discharge Neck: No thyromegaly or lymphadenopathy CV: RRR, no murmurs, rubs, or gallops, pulses intact, normal cap refill. AV fistula with palpable bruit. Lungs: CTAB Abdomen: Mild tenderness to palpation in the lower mid-abdomen, no rebound tenderness or guarding, normal bowel sounds Ext: No swelling, left foot amputation as above Neuro: Awake, alert, oriented X3 Hospital Course 57 year old male with history of ESRD on hemodialysis, difficult to control type 1 diabetes mellitus, left foot chronic osteomyelitis on chronic IV antibiotics, presented from his SNF with acute delirium. Workup revealed that he had a left lower lobe pneumonia, likely healthcare associated. He was treated with Zosyn and Levaquin. He also missed his hemodialysis session the day before and was likely acutely uremic. He was given hemodialysis twice in the hospital. Because of his worsening cognitive status a stroke workup was initiated, which was negative for a stroke. He had negative MRI brain and CTA of neck. EEG showed no seizures, but did show encephalopathy. VBG was essentially normal. Workup for his pneumonia included pneumococcal and legionella antigens which were negative. Blood cultures remained negative. His left foot infection is stable. Podiatry saw him in the hospital and recommended follow up as outpatient with continued Unasyn IV long-term. His cognitive status rapidly improved by the second day of hospitalization. By discharge he was back to his normal self. He will be discharged back [facility], continue physical therapy, continue hemodialysis MWF, continue IV Unasyn through his Ta catheter, and continue to follow up with podiatry, vascular surgery, primary care, nephrology, and infectious disease. He will be treated with Levaquin for a few more doses in addition to Unasyn which should cover his pneumonia. Discharge planning was discussed at length with the patient before discharge. Pt Condition on Discharge: Stable Discharge Disposition: Discharge to SNF Discharge Instructions DIET: Follow Instructions for: Renal Failure Diet Speech Therapy-Diet Recommends: Mechanical Soft Activities you can perform: Regular-No Restrictions Follow up Referrals: Infectious Disease - 1 Week Nephrology - 1 Week PCP Follow-up - 1 Week Podiatry - 2-3 Days @ [facility] with Ada Judge DPBubba Vascular Surgery - 1 Week New Medications: Amlodipine (Norvasc) 5 Mg Tab 5 MG PO DAILY, #30 TAB Gabapentin (Gabapentin) 100 Mg Cap 200 MG PO TID, #180 CAP Hydrocodone/Acetaminophen (Hydrocodone-Acetamin 7.5-325) 7.5 Mg-325 Mg Tablet 1 TAB PO Q4H PRN for pain, #30 Insulin Detemir Inj (Levemir Inj) 1,000 unit/ 10 ML Vial 10 UNITS SQ Q12HR, #1 VIAL Do not mix with any other Insulin. Levofloxacin (Levaquin) 500 Mg Tablet 500 MG PO Q48H, #3 TAB Continued Medications: Ampicillin-Sulbactam Inj (Unasyn Inj) 3 Gm Vial 3 GM IV DAILY for Infection, #32 BAG 0 Refills Atorvastatin (Atorvastatin) 40 Mg Tab 40 MG PO HS for Cholesterol Management, #30 TAB 0 Refills B-Complex W/ C-Zn & Folic Acid (Dialyvite 800/Zinc 15) 1 Tab 1 TAB DAILY Baclofen (Baclofen) 10 Mg Tab 10 MG PO DAILY PRN for hiccups, #30 TAB 0 Refills Budesonide-Formoterol Inh (Symbicort Inh) 160-4.5 Mcg/Act Aero 1 PUFF INH Q12HR, #1 INHALER 2 Refills Cholecalciferol (Vitamin D3) 1,000 Unit Cap 1000 UNITS PO DAILY for Nutritional Supplement, #1 BOTTLE [address] (Duloxetine DR) 30 Mg Capdr 30 MG PO DAILY, #30 CAP 0 Refills Hydrocodone-Acetaminophen (Hydrocodone-Acetaminophen) 5-325 mg Tab 1-2 TAB PO Q4HR PRN for PAIN GREATER THAN 5, #60 TAB Insulin Aspart Inj (Novolog Inj) 1,000 Unit/10 Ml Vial 1-9 UNITS SQ ACHS for Blood Sugar Management, #10 ML 0 Refills sugars less than 70,(0)units; sugars 150-199,(1) unit; sugars 200-249,(3) units; sugars 250-299,(5) units; sugars 300-349,(7) units; sugars greater than 349,(9) units Sevelamer Carbonate (Renvela) 800 Mg Tab 1600 MG PO TIDAC, #180 TAB Discontinued Medications: Gabapentin (Gabapentin) 100 Mg Cap 100 MG PO TID, #90 CAP Insulin Detemir Inj (Levemir Flextouch Pen Inj) 300 unit/3 ML Pen 12 UNITS SQ DAILY for Blood Sugar Management, PEN 0 Refills Insulin Detemir Inj (Levemir Flextouch Pen Inj) 300 unit/3 ML Pen 15 UNITS SQ DAILY for Blood Sugar Management, PEN 0 Refills Albin Guerra MD R3 Oct 19, 2017 12:22
== END 2017-10-18 17:30 | DRG 193 ==
LOC: NEPC 03:35 → NEDA 07:21 → N05B 08:25 → N03A 14:48 → N05B 10-17 12:21
PROVIDERS: ADMIT Family Medicine; ATTEND Family Medicine
PROC: 5A1D70Z Performance of Urinary Filtration, Intermittent, Less than 6 Hours Per Day (ICD-10-PCS; principal; 2017-10-16)
DX: J18.9 Pneumonia, unspecified organism (principal); N18.6 End stage renal disease; G93.41 Metabolic encephalopathy; F05 Delirium due to known physiological condition; I12.0 Hypertensive chronic kidney disease with stage 5 chronic kidney disease or end stage renal disease; M86.672 Other chronic osteomyelitis, left ankle and foot; J44.0 Chronic obstructive pulmonary disease with (acute) lower respiratory infection; E10.22 Type 1 diabetes mellitus with diabetic chronic kidney disease; E10.69 Type 1 diabetes mellitus with other specified complication; D63.1 Anemia in chronic kidney disease; E10.65 Type 1 diabetes mellitus with hyperglycemia; R29.810 Facial weakness; E10.51 Type 1 diabetes mellitus with diabetic peripheral angiopathy without gangrene; T87.81 Dehiscence of amputation stump; E78.5 Hyperlipidemia, unspecified; E83.39 Other disorders of phosphorus metabolism; E87.5 Hyperkalemia; G54.6 Phantom limb syndrome with pain; I25.10 Atherosclerotic heart disease of native coronary artery without angina pectoris; R56.9 Unspecified convulsions; Y95 Nosocomial condition; Z79.4 Long term (current) use of insulin; Z99.2 Dependence on renal dialysis; Z87.891 Personal history of nicotine dependence
CPT/HCPCS: 70450; 70496; 70498; 70551; 71045; 80048; 80053; 82140; 82805; 82947; 82948; 83605; 83735; 84100; 85025; 85027; 85610; 85730; 86850; 86900; 86901; 87040; 87449; 90935; 93005; 94150; 94640; 94664; 95819; 96365; 96368; 96374; 96375; J0456; J0692; J1644; J1815; J2405; J2543; J7030; J7050; Q4081; Q9967

== ENCOUNTER 2017-12-25 20:18 | Inpatient (IN) | payer MEDICARE, MEDICAID ==
[~2017-12-25] VITALS: Ht 160 cm; Wt 64.0 kg
[~2017-12-25 20:18] MED LIST changes: +AMLO5 PO; +HYDR-3580 PO; +LEVA500T33 PO
[2017-12-25] MEDS ORDERED: SODIUM CHLORIDE 0.9% FLUSH 10 ML FLUSH IVF PRN (20:30)
[2017-12-25 20:32] VITALS: BP 115/46; PULSE 63; RESP 10; RESP 14; TEMP 98.9; O2SAT 99
[2017-12-25 20:35] VITALS: RESP 10; O2SAT 94
[2017-12-25] MEDS ORDERED: CALCIUM GLUCONATE 10% 1 GM/10 ML VIAL SLOW IVP ONE (21:00)
[2017-12-25] MEDS ORDERED: INSULIN HUMAN REGULAR 1,000 UNITS/10 ML VIAL IV PUSH ONE (21:00)
[2017-12-25] MEDS ORDERED: SODIUM POLYSTYRENE SULFONATE SUSP 15 GM/60 ML CUP PO ONE (21:00)
[2017-12-25] MEDS ORDERED: SODIUM BICARBONATE 8.4% SOLN 50 MEQ/50 ML VIAL SLOW IVP ONE ×2 (21:00→21:30)
[2017-12-25] MEDS ORDERED: RESP: ALBUTEROL CONC 2.5 MG/0.5 ML NEB INH ONE (21:00)
--- NOTE | 2017-12-25 21:05 | PD ---
HPI Chief Complaint: Altered Mental Status Time Seen by Provider: 20:27 Travel History International Travel<30 days: No Contact w/Intl Traveler<30days: No Traveled to known affect area: No History of Present Illness HPI Patient is 57 years old and arrives by EMS due to elevated blood glucose at rehabilitation facility with bedside glucose of approximately 505. Evidently he received insulin and they rechecked in 4 hours later and he appeared to be increasingly lethargic. Patient is known to be insulin-dependent diabetic. Patient is known to undergo dialysis Sunday evidently compliant with the. Additional past medical history includes COPD, diabetes and bilateral lower extremity transmetatarsal amputations with osteomyelitis. Location endocrine generalized. Patient is not verbal in the ER limiting history. 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) Asthma: No Autoimmune Disease: No Blood Disorders: No Anxiety: No Depression: Yes Heart Rhythm Problems: No Cancer: No Cardiovascular Problems: Yes High Cholesterol: Yes Chemotherapy: No Chest Pain: No Congestive Heart Failure: No COPD: Yes Cerebrovascular Accident: No Diabetes: Yes Patient Takes Glucophage: No Dialysis: Yes (M,W,F) Diminished Hearing: No Endocrine: Yes Gastrointestinal Disorders: No GERD: No Genitourinary: Yes Headaches: Yes Hepatitis: Yes Hiatal Hernia: No Hypertension: Yes Immune Disorder: No Implanted Vascular Access Dvce: Yes Kidney Stones: No Musculoskeletal: Yes Neurologic: Yes Psychiatric: No Reproductive: No Respiratory: Yes Immunizations Current: Yes Migraines: No Radiation Therapy: No Renal Failure: Yes Seizures: Yes Sickle Cell Disease: No Sleep Apnea: No Thyroid Disease: No Ulcer: No Tetanus Vaccination: > 5 Years Influenza Vaccination: Yes Past Surgical History Abdominal Surgery: No AICD: No Arteriovenous Shunt: No Cardiac Surgery: No Ear Surgery: No Endocrine Surgery: No Eye Surgery: No Genitourinary Surgery: No Gynecologic Surgery: No Insulin Pump: No Joint Replacement: No Pacemaker: No Thoracic Surgery: No Other Surgery: Yes (LT ARM FISTULA, LEFT TOES AMPUTATION (ALL TOES)) Social History Alcohol Use: No Tobacco Use: Yes Substance Use: No Allergies-Medications (Allergen,Severity, Reaction): Coded Allergies: No Known Allergies (Verified Allergy, Unknown, 10/16/17) Reported Meds & Prescriptions Reported Meds & Active Scripts Active Hydrocodone-Acetamin 7.5-325 (Hydrocodone/Acetaminophen) 7.5 Mg-325 Mg Tablet 1 Tab PO Q4H PRN Levemir Inj (Insulin Detemir) 1,000 unit/ 10 ML Vial 10 Units SQ Q12HR Do not mix with any other Insulin. Gabapentin 100 Mg Cap 200 Mg PO TID Norvasc (Amlodipine Besylate) 5 Mg Tab 5 Mg PO DAILY Levaquin (Levofloxacin) 500 Mg Tablet 500 Mg PO Q48H Unasyn Inj (Ampicillin-Sulbactam Inj) 3 Gm Vial 3 Gm IV DAILY Novolog Inj (Insulin Aspart) 1,000 Unit/10 Ml Vial 1-9 Units SQ ACHS sugars less than 70,(0)units; sugars 150-199,(1) unit; sugars 200-249,(3) units; sugars 250-299,(5) units; sugars 300-349,(7) units; sugars greater than 349,(9) units Renvela (Sevelamer Carbonate) 800 Mg Tab 1,600 Mg PO TIDAC Hydrocodone-Acetaminophen 5-325 mg Tab 1-2 Tab PO Q4HR PRN Symbicort Inh (Budesonide/Formoterol Fumarate) 160-4.5 Mcg/Act Aero 1 Puff INH Q12HR Duloxetine DR (Duloxetine HCl) 30 Mg Capdr 30 Mg PO DAILY Atorvastatin (Atorvastatin Calcium) 40 Mg Tab 40 Mg PO HS Reported Baclofen 10 Mg Tab 10 Mg PO DAILY PRN Vitamin D3 (Cholecalciferol) 1,000 Unit Cap 1,000 Units PO DAILY Dialyvite 800/Zinc 15 (B-Complex W/ C-Zn & Folic Acid) 1 Tab 1 Tab DAILY Review of Systems ROS Limitations: Clinical Condition General / Constitutional: No: Fever Physical Exam Narrative GENERAL: 57-year-old male well-nourished well-developed chronically ill in appearance answers no questions GCS 6 (eyes 4, motor 2, verbal 1) Vital Signs Date Time Temp Pulse Resp B/P (MAP) Pulse Ox O2 Delivery O2 Flow Rate FiO2 12/25/17 20:35 63 10 95 Room Air 12/25/17 20:35 10 Room Air 12/25/17 20:32 98.9 63 10 115/46 (69) SKIN: Warm and dry. HEAD: Atraumatic. Normocephalic. EYES: Pupils equal and round. No scleral icterus. No injection or drainage. ENT: No nasal bleeding or discharge. Mucous membranes pink and moist. NECK: Trachea midline. No JVD. CARDIOVASCULAR: Regular rate and rhythm. RESPIRATORY: No accessory muscle use. Clear to auscultation. Breath sounds equal bilaterally. GASTROINTESTINAL: Abdomen soft, non-tender, nondistended. Hepatic and splenic margins not palpable. MUSCULOSKELETAL: Extremities without clubbing, cyanosis, or edema. No obvious deformities. NEUROLOGICAL: Awake and alert. No obvious cranial nerve deficits. Motor grossly within normal limits. Five out of 5 muscle strength in the arms and legs. Normal speech. PSYCHIATRIC: Appropriate mood and affect; insight and judgment normal. Data Data Last Documented VS Vital Signs Date Time Temp Pulse Resp B/P (MAP) Pulse Ox O2 Delivery O2 Flow Rate FiO2 12/25/17 21:17 100 Nasal Cannula 4.00 12/25/17 20:35 63 10 12/25/17 20:32 98.9 115/46 (69) Orders Orders Electrocardiogram (12/25/17 20:) Complete Blood Count With Diff (12/25/17:) Comprehensive Metabolic Panel (12/25/17:) Magnesium (Mg) (12/25/17:) Phosphorus (Po4) (12/25/17:) Beta Hydroxybutyrate (Acetone) (12/25/17:) Lactic Acid (12/25/17:) Urinalysis - C+S If Indicated (12/25/17 20:) Chest, Single Ap (12/25/17:27) Arterial Blood Gas (Abg) (12/25/17:) Blood Glucose (12/25/17:) Blood Glucose (12/25/17 21:27) Blood Glucose (12/25/17 20:) Ecg Monitoring (12/25/17:) Iv Access Insert/Monitor (12/25/17:) Oximetry (12/25/17:) NPO (12/25/17:) Sodium Chloride 0.9% Flush (Ns Flush) (12/25/17 20:30) Troponin I (12/25/17 20:27) Lipase (12/25/17 20:27) I-Stat Profile (12/25/17:29) I-Stat Creatinine (3/13/18 20:29) Calcium Gluconate Inj (Calcium Gluconate (12/25/17 21:00) Insulin Human Regular Inj (Novolin R Inj (12/25/17 21:00) Sodium Bicarbonate 8.4% Inj (Sodium Bica (12/25/17 21:00) Albuterol Concentrated Neb (Albuterol Co (12/25/17 21:00) Sodium Polysty Sulfate Liq (Kayexalate L (12/25/17 21:00) Sodium Bicarbonate 8.4% Inj (Sodium Bica (12/25/17 21:30) Insulin Regular (Iv Infusion) (Novolin R (12/25/17 21:30) Ct Brain W/O Iv Contrast(Rout) (12/25/17 21:25) Admit Order (Ed Use Only) (12/25/17 ) [employer]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 VICENTA.Q8H (12/25/17 21:31) Vital Signs (Adult) Q4H (12/25/17 21:31) Diet Npo (12/26/17 Breakfast) Activity Bed Rest (12/25/17 21:31) Notify Dr: Other (12/25/17 21:31) Labs Laboratory Tests Test 12/25/17 20:35 12/25/17 20:54 White Blood Count 12.2 TH/MM3 Red Blood Count 3.94 MIL/MM3 Hemoglobin 9.2 GM/DL Bedside Hemoglobin 10.2 G/DL Hematocrit 31.8 % Bedside Hematocrit 30.0 % Mean Corpuscular Volume 80.7 FL Mean Corpuscular Hemoglobin 23.5 PG Mean Corpuscular Hemoglobin Concent 29.1 % Red Cell Distribution Width 21.5 % Platelet Count 198 TH/MM3 Mean Platelet Volume 8.9 FL Neutrophils (%) (Auto) 87.5 % Lymphocytes (%) (Auto) 4.7 % Monocytes (%) (Auto) 7.6 % Eosinophils (%) (Auto) 0.0 % Basophils (%) (Auto) 0.2 % Neutrophils # (Auto) 10.7 TH/MM3 Lymphocytes # (Auto) 0.6 TH/MM3 Monocytes # (Auto) 0.9 TH/MM3 Eosinophils # (Auto) 0.0 TH/MM3 Basophils # (Auto) 0.0 TH/MM3 CBC Comment DIFF FINAL Differential Comment Bedside Sodium 125 MMOL/L Blood Urea Nitrogen 150 MG/DL Creatinine 14.59 MG/DL Random Glucose 706 MG/DL Total Protein 6.6 GM/DL Albumin 2.3 GM/DL Calcium Level 8.4 MG/DL Phosphorus Level 13.0 MG/DL Magnesium Level 2.3 MG/DL Alkaline Phosphatase 222 U/L Aspartate Amino Transf (AST/SGOT) 66 U/L Alanine Aminotransferase (ALT/SGPT) 40 U/L Total Bilirubin 0.5 MG/DL Sodium Level 127 MEQ/L Potassium Level 6.9 MEQ/L Chloride Level 92 MEQ/L Carbon Dioxide Level 11.8 MEQ/L Bedside Potassium 6.8 MMOL/L Bedside Chloride 98 MMOL/L Anion Gap 23 MEQ/L Bedside Blood Urea Nitrogen GREATER THAN 140 MG/DL Bedside Creatinine 15.3 MG/DL Estimat Glomerular Filtration Rate 4 ML/MIN Bedside Glucose 694 MG/DL Lactic Acid Level 2.4 mmol/L Troponin I 0.22 NG/ML Lipase 110 U/L B-Hydroxybutyrate 2.04 MMOL/L Blood Gas Puncture Site RT BRACHIAL Blood Gas Patient Temperature 98.6 Blood Gas HCO3 13 mmol/L Blood Gas Base Excess -14.0 mmol/L Blood Gas Oxygen Saturation 97 % Arterial Blood pH 7.19 Arterial Blood Partial Pressure CO2 34 mmHg Arterial Blood Partial Pressure O2 165 mmHG Arterial Blood Oxygen Content 13.2 Vol % Arterial Blood Carboxyhemoglobin 1.3 % Arterial Blood Methemoglobin 0.5 % Blood Gas Hemoglobin 9.4 G/DL Oxygen Delivery Device NASAL CANNULA Blood Gas Liter Flow 4 L/M [facility] Medical Decision Making Medical Screen Exam Complete: Yes Emergency Medical Condition: Yes Medical Record Reviewed: Yes Differential Diagnosis DKA, hyperkalemia, intracranial hemorrhage Narrative Course CBC & BMP Diagram 12/25/17 20:35 Total Protein 6.6, Albumin 2.3 L, Calcium Level 8.4 L, Phosphorus Level 13.0 H, Magnesium Level 2.3, Alkaline Phosphatase 222 H, Aspartate Amino Transf (AST/ SGOT) 66 H, Alanine Aminotransferase (ALT/SGPT) 40, Total Bilirubin 0.5 Patient has EKG with peaked T waves and some prolongation of intervals concerning for hyperkalemic EKG changes Case discussed with Dr Perry - stat dialysis to be arranged Case discussed with Dr Mathews for hydro electric station operator service Calcium, 10 units insulin, bicarbonate Kayexalate and albuterol started Insulin drip started and head CT added on following discussion with the hydro electric station operator service Last Impressions Chest X-Ray 12/25/[id number] Signed Impressions: Service Date/Time: Monday, December 25, 2017 20:45 - CONCLUSION: No evidence of acute cardiopulmonary disease. Eliu Ayala MD Critical Care Narrative Aggregate critical care time was 45 minutes. Time to perform other separately billable procedures was not included in the critical care time. My time did not include minutes spent treating any other patients simultaneously or on activities that did not directly contribute to the patient's treatment. The services I provided to this patient were to treat and/or prevent clinically significant deterioration that could result in: Cardiopulmonary arrest I provided critical care services requiring my management, as noted below: Chart data review, documentation time, medication orders and management, vital sign assessments/reviewing monitor data, ordering and reviewing lab tests, ordering and interpreting/reviewing x-rays and diagnostic studies, care of the patient and discussion of the patient with the admitting physicians. Diagnosis Primary Impression: Altered mental status Qualified Codes: R41.82 - Altered mental status, unspecified Additional Impressions: ESRD (end stage renal disease) Gangrene Osteomyelitis Qualified Codes: M86.8X7 - Other osteomyelitis, ankle and foot DKA (diabetic ketoacidoses) Qualified Codes: E10.11 - Type 1 diabetes mellitus with ketoacidosis with coma Hyperkalemia Admitting Information Admitting Physician Requests: Admit Roosevelt Arnett MD Dec 25, 2017 21:05
[2017-12-25 21:17] VITALS: O2SAT 100
--- NOTE | 2017-12-25 21:18 | RADRPT ---
EXAM DATE/TIME: 12/25/2017 20:45 [facility] COMPARISON: CHEST SINGLE AP, October 16, 2017, 4:06. INDICATIONS : Cough. MEDICAL HISTORY : Hypertension. Chronic obstructive pulmonary disease. Diabetes mellitus type II. SURGICAL HISTORY : Vas Cath placement. ENCOUNTER: Initial ACUITY: 1 day PAIN SCORE: Non-responsive. LOCATION: Bilateral chest FINDINGS: A single view of the chest demonstrates the lungs to be symmetrically aerated without evidence of mas s, infiltrate or effusion. The cardiomediastinal contours are unremarkable. Osseous structures are intact. There is a right internal jugular central venous catheter with tip in the superior vena cava. CONCLUSION: No evidence of acute cardiopulmonary disease. Eliu Ayala MD on December 25, 2017 at 21:16 Board Certified Radiologist. This report was verified electronically.
[2017-12-25 21:24] LABS: AUTOMATED NEUTROPHIL # 10.7 TH/MM3 (1.8-7.7); BASOPHIL % 0.2 % (0.0-2.0); HEMATOCRIT 31.8 % (39.0-51.0); HEMOGLOBIN 9.2 GM/DL (13.0-17.0); LYMPH % 4.7 % (9.0-44.0); LYMPHOCYTE # 0.6 TH/MM3 (1.0-4.8); MEAN CELL VOLUME 80.7 FL (80.0-100.0); MEAN CORPUSCULAR HEMOGLOBIN 23.5 PG (27.0-34.0); MEAN PLATELET VOLUME 8.9 FL (7.0-11.0); MONO % 7.6 % (0.0-8.0); MONOCYTE # 0.9 TH/MM3 (0-0.9); NEUT % 87.5 % (16.0-70.0); PLATELET COUNT 198 TH/MM3 (150-450); RED BLOOD COUNT 3.94 MIL/MM3 (4.50-5.90); RED CELL DISTRIBUTION WIDTH 21.5 % (11.6-17.2); WHITE BLOOD COUNT 12.2 TH/MM3 (4.0-11.0)
[2017-12-25 21:26] LABS: MEAN CORPUSCULAR HGB CONC 29.1 % (32.0-36.0)
[2017-12-25] MEDS ORDERED: INSULIN REGULAR (IV INFUSION) 100 UNITS in SODIUM CHLORIDE 0.9% INJ 99 ML IV PRN (21:30)
[2017-12-25 21:37] LABS: ALBUMIN 2.3 GM/DL (3.4-5.0); ALKALINE PHOSPHATASE 222 U/L (45-117); ALT (GPT) 40 U/L (12-78); AST (GOT) 66 U/L (15-37); BICARBONATE 11.8 MEQ/L (21.0-32.0); BLOOD UREA NITROGEN 150 MG/DL (7-18); CALCIUM 8.4 MG/DL (8.5-10.1); CHLORIDE 92 MEQ/L (98-107); GLOMERULAR FILTRATION RATE 4 ML/MIN (>89); MAGNESIUM 2.3 MG/DL (1.5-2.5); SODIUM (NA) 127 MEQ/L (136-145); TOTAL BILIRUBIN ADULT 0.5 MG/DL (0.2-1.0); TOTAL PROTEIN 6.6 GM/DL (6.4-8.2); TROPONIN I 0.22 NG/ML (0.02-0.05)
[2017-12-25 21:40] LABS: CREATININE 14.59 MG/DL (0.60-1.30); GLUCOSE,RANDOM 706 MG/DL (74-106)
[2017-12-25 22:00] VITALS: BP 112/71; PULSE 73; RESP 12; O2SAT 100
--- NOTE | 2017-12-25 22:44 | RADRPT ---
EXAM DATE/TIME: 12/25/2017 22:22 [facility] COMPARISON: CT BRAIN W/O CONTRAST, October 16, 2017, 13:09. INDICATIONS : Altered mental status. RADIATION DOSE: 66.34 CTDIvol (mGy) MEDICAL HISTORY : Seizures. Hypertension. Renal failure. SURGICAL HISTORY : None. ENCOUNTER: Initial ACUITY: 1 day PAIN SCALE: Non-responsive LOCATION: cranial TECHNIQUE: Multiple contiguous axial images were obtained of the head. Using automated exposure control and adj ustment of the mA and/or kV according to patient size, radiation dose was kept as low as reasonably a chievable to obtain optimal diagnostic quality images. DICOM format image data is available electro nically for review and comparison. FINDINGS: CEREBRUM: The ventricles are normal for age. No evidence of midline shift, mass lesion, hemorrhage or acute in farction. No extra-axial fluid collections are seen. POSTERIOR FOSSA: The cerebellum and brainstem are intact. The 4th ventricle is midline. The cerebellopontine angle i s unremarkable. EXTRACRANIAL: The visualized portion of the orbits is intact. Calcified temporal arteries are noted, chronic. SKULL: The calvaria is intact. No evidence of skull fracture. CONCLUSION: No acute intracranial abnormality demonstrated. Eliu Ayala MD on December 25, 2017 at 22:41 Board Certified Radiologist. This report was verified electronically.
[2017-12-25 22:50] VITALS: PULSE 74
[2017-12-25 23:07] VITALS: BP 127/58; PULSE 72; RESP 16; TEMP 97.7
[2017-12-26] VITALS (15 sets, daily range): BP systolic 114–143; BP diastolic 55–63; PULSE 78–98; RESP 8–11; TEMP 97.4–99.2; O2SAT 95–100
[2017-12-26] MEDS ORDERED: SODIUM CHLOR 0.9% 1000 ML INJ 500 ML IV ONE (00:30)
[2017-12-26] MEDS ORDERED: BISACODYL 10 MG SUPP RECTAL PRN (01:45)
[2017-12-26] MEDS ORDERED: SODIUM CHLORIDE 0.9% FLUSH 10 ML FLUSH IV FLUSH PRN ×2 (01:45→13:45)
[2017-12-26] MEDS ORDERED: MISCELLANEOUS NURSING INFORMATION XX SCH (01:45)
[2017-12-26] MEDS ORDERED: LACTULOSE SYRUP 20 GM/30 ML CUP PO PRN (01:45)
[2017-12-26] MEDS ORDERED: RESP: ALBUTEROL 2.5 MG/3 ML NEB (PRN) INH (01:45)
[2017-12-26] MEDS ORDERED: MAGNESIUM HYDROXIDE SUSP 30 ML CUP PO PRN (01:45)
[2017-12-26] MEDS ORDERED: CHLORHEXIDINE GLUCONATE 2 % 1 PACK (2 CLOTHS) TOP PRN (01:45)
[2017-12-26] MEDS ORDERED: SENNOSIDES 8.6 MG TAB PO PRN (01:45)
--- NOTE | 2017-12-26 01:59 | HHI.HP ---
[facility] Service Critical Care Medicine Primary Care Physician Naresh Juarez MD Admission Diagnosis DKA; Obtunded; K 6.8 Diagnosis: (1) PAD (peripheral artery disease) Diagnosis: Secondary (2) Diabetic nephropathy Diagnosis: Secondary (3) CKD (chronic kidney disease) stage V requiring chronic dialysis Diagnosis: Secondary (4) Dyslipidemia Diagnosis: Secondary (5) DM (diabetes mellitus) Diagnosis: Principal (6) HTN (hypertension) Diagnosis: Secondary (7) PAD (peripheral artery disease) Diagnosis: Secondary (8) Ischemic ulcer diabetic foot Diagnosis: Secondary (9) ESRD on hemodialysis Diagnosis: Secondary (10) COPD (chronic obstructive pulmonary disease) Diagnosis: Secondary (11) DKA (diabetic ketoacidoses) Diagnosis: Principal (12) Encephalopathy acute Diagnosis: Principal Travel History International Travel<30 Days: No Contact w/Intl Traveler <30 Da: No Traveled to Known Affected Are: No History of Present Illness 57 yo AAM with PMH of ESRD on HD M/W/F, DM, PAD, HTN, COPD, tobacco abuse presented from [facility] with decreased mental status. Patient is not able to provide history. CT brain was negative. He was in DKA with glucose 706 and anion gap 23. Potassium 6.9. Dr. Arnett discussed with Nephrology and arranged for hemodialysis and consulted CCM for admission. Review of Systems ROS Limitations: Clinical Condition, Altered Mental Status Past Family Social History Allergies: Coded Allergies: No Known Allergies (Verified Allergy, Unknown, 10/16/17) Past Medical History ESRD Hypertension Depression Peripheral neuropathy Peripheral arterial disease Diabetes mellitus Osteomyelitis COPD Tobacco abuse Past Surgical History Left upper extremity fistula L second toe amputation 07/11/17 L posterior tibial artery angioplasty 09/24/17 I and D L foot 09/28/17 Left foot transmetatarsal amputation 09/26/17 (Dr. Judge) Right IJ Ta Reported Medications Reviewed records from residential which indicates: Norvasc 5 mill grams by mouth daily Baclofen 10 mg daily as needed for headache up's Cholestasis calciferol 1000 units by mouth daily Cipro 500 mg by mouth every 12 hours 12/13 for osteomyelitis. Diflucan 200 mg by mouth daily 4 foot infection 12/18 Duloxetine 30 mg by mouth daily Gabapentin 200 mg by mouth by mouth 3 times a day Detemir 10 units subcutaneous twice a day NovoLog sliding scale Lisinopril 10 mg by mouth daily Nephro-Romario 1 tab by mouth daily Percocet 5/325 one tab by mouth every 6 hours as needed for pain Symbicort 160/4.52 puffs inhaled twice a day Family History Unable to obtain from patient due to clinical condition Social History Unable to obtain from patient due to clinical condition. Reviewed EMR which indicates he is a former smoker. He has no family that lives locally. Has 2 daughters in [place]. Physical Exam Vital Signs Vital Signs Date Time Temp Pulse Resp B/P (MAP) Pulse Ox O2 Delivery O2 Flow Rate FiO2 12/26/17 00:00 78 12/26/17 00:00 97.4 78 8 143/55 (84) 100 12/25/17 23:07 97.7 72 16 127/58 (81) 12/25/17 22:50 74 12/25/17 22:00 73 12 112/71 (85) 100 Nasal Cannula 4.00 12/25/17 21:17 100 Nasal Cannula 4.00 12/25/17 20:35 63 10 95 Room Air 12/25/17 20:35 10 Room Air 12/25/17 20:32 98.9 63 10 115/46 (69) Physical Exam GENERAL: Lethargic male who is laying [facility] bed on dialysis. SKIN: Warm and dry. HEAD: Atraumatic. Normocephalic. EYES: Pupils equal and round. No scleral icterus. No injection or drainage. ENT: No nasal bleeding or discharge. Mucous membranes pink and moist. NECK: Trachea midline. No JVD. CARDIOVASCULAR: Regular rate and rhythm. No murmurs rubs or gallops. RESPIRATORY: Breathing comfortably with no accessory muscle use. Clear to auscultation. Breath sounds equal bilaterally. GASTROINTESTINAL: Abdomen soft, non-tender, nondistended. Bowel sounds present. VASC: Ta catheter R chest, dressing in place. No tenderness/erythema/ drainage. LUE fistula accessed for HD MUSCULOSKELETAL: Extremities without clubbing, cyanosis, or edema. There is wound on 1st digit r foot with necrotic eschar overlying, no drainage. L foot s/ p transmetatarsal amputation. Sutures and brenda in place and the most distal aspect is ballotable without current drainage. surrounding necrotic eschar. NEUROLOGICAL: Lethargic, opens eyes to voice. localizes, mumbles a few words. Moving all extremities. Laboratory Laboratory Tests Test 3/13/18 20:35 12/25/17 20:54 White Blood Count 12.2 Red Blood Count 3.94 Hemoglobin 9.2 Bedside Hemoglobin 10.2 Hematocrit 31.8 Bedside Hematocrit 30.0 Mean Corpuscular Volume 80.7 Mean Corpuscular Hemoglobin 23.5 Mean Corpuscular Hemoglobin Concent 29.1 Red Cell Distribution Width 21.5 Platelet Count 198 Mean Platelet Volume 8.9 Neutrophils (%) (Auto) 87.5 Lymphocytes (%) (Auto) 4.7 Monocytes (%) (Auto) 7.6 Eosinophils (%) (Auto) 0.0 Basophils (%) (Auto) 0.2 Neutrophils # (Auto) 10.7 Lymphocytes # (Auto) 0.6 Monocytes # (Auto) 0.9 Eosinophils # (Auto) 0.0 Basophils # (Auto) 0.0 CBC Comment DIFF FINAL Differential Comment Bedside Sodium 125 Blood Urea Nitrogen 150 Creatinine 14.59 Random Glucose 706 Total Protein 6.6 Albumin 2.3 Calcium Level 8.4 Phosphorus Level 13.0 Magnesium Level 2.3 Alkaline Phosphatase 222 Aspartate Amino Transf (AST/SGOT) 66 Alanine Aminotransferase (ALT/SGPT) 40 Total Bilirubin 0.5 Sodium Level 127 Potassium Level 6.9 Chloride Level 92 Carbon Dioxide Level 11.8 Bedside Potassium 6.8 Bedside Chloride 98 Anion Gap 23 Bedside Blood Urea Nitrogen GREATER THAN 140 Bedside Creatinine 15.3 Estimat Glomerular Filtration Rate 4 Bedside Glucose 694 Lactic Acid Level 2.4 Troponin I 0.22 Lipase 110 B-Hydroxybutyrate 2.04 Blood Gas Puncture Site RT BRACHIAL Blood Gas Patient Temperature 98.6 Blood Gas HCO3 13 Blood Gas Base Excess -14.0 Blood Gas Oxygen Saturation 97 Arterial Blood pH 7.19 Arterial Blood Partial Pressure CO2 34 Arterial Blood Partial Pressure O2 165 Arterial Blood Oxygen Content 13.2 Arterial Blood Carboxyhemoglobin 1.3 Arterial Blood Methemoglobin 0.5 Blood Gas Hemoglobin 9.4 Oxygen Delivery Device NASAL CANNULA Blood Gas Liter Flow 4 Result Diagram: 12/25/17203412/25/172034 Caprini VTE Risk Assessment Caprini VTE Risk Assessment: Mod/High Risk (score >= 2) Caprini Risk Assessment Model Point Value = 1 Point Value = 2 Point Value = 3 Point Value = 5 Age 41-60 Minor surgery BMI > 25 kg/m2 Swollen legs Varicose veins or History of unexplained or recurrent spontaneous Oral contraceptives or hormone replacement Sepsis (< 1 month) Serious lung disease, including pneumonia (< 1 month) Abnormal pulmonary function Acute myocardial infarction Congestive heart failure (< 1 month) History of inflammatory bowel disease Medical patient at bed rest Age 61-74 Arthroscopic surgery Major open surgery (> 45 min) Laparoscopic surgery (> 45 min) Malignancy Confined to bed (> 72 hours) Immobilizing plaster cast Central venous access Age >= 75 History of VTE Family history of VTE Factor V Leiden Prothrombin [id number] Lupus anticoagulant Anticardiolipin antibodies Elevated serum homocysteine Heparin-induced thrombocytopenia Other congenital or acquired thrombophilia Stroke (< 1 month) Elective arthroplasty Hip, pelvis, or leg fracture Acute spinal cord injury (< 1 month) Prophylaxis Regimen Total Risk Factor Score Risk Level Prophylaxis Regimen 0-1 Low Early ambulation 2 Moderate Order ONE of the following: *Sequential Compression Device (SCD) *Heparin 5000 units SQ BID 3-4 Higher Order ONE of the following medications: *Heparin 5000 units SQ TID *Enoxaparin/Lovenox 40 mg SQ daily (WT < 150 kg, CrCl > 30 mL/min) *Enoxaparin/Lovenox 30 mg SQ daily (WT < 150 kg, CrCl > 10-29 mL/min) *Enoxaparin/Lovenox 30 mg SQ BID (WT < 150 kg, CrCl > 30 mL/min) AND/OR *Sequential Compression Device (SCD) 5 or more Highest Order ONE of the following medications: *Heparin 5000 units SQ TID (Preferred with Epidurals) *Enoxaparin/Lovenox 40 mg SQ daily (WT < 150 kg, CrCl > 30 mL/min) *Enoxaparin/Lovenox 30 mg SQ daily (WT < 150 kg, CrCl > 10-29 mL/min) *Enoxaparin/Lovenox 30 mg SQ BID (WT < 150 kg, CrCl > 30 mL/min) AND *Sequential Compression Device (SCD) Assessment and Plan Problem List: (1) Tobacco abuse ICD Code: Z72.0 - Tobacco use Status: Chronic (2) Osteomyelitis ICD Code: M86.9 - Osteomyelitis, unspecified Status: Acute (3) ESRD on hemodialysis ICD Code: N18.6 - End stage renal disease; Z99.2 - Dependence on renal dialysis Status: Chronic (4) PAD (peripheral artery disease) ICD Code: I73.9 - Peripheral vascular disease, unspecified Status: Chronic (5) HTN (hypertension) ICD Code: I10 - Essential (primary) hypertension Status: Chronic Permanent Comment: Last Edited By: Jasmyne Bee on Jul 11, 2017 15:31 (6) DM (diabetes mellitus) ICD Code: E11.9 - Type 2 diabetes mellitus without complications Status: Chronic (7) Dyslipidemia ICD Code: E78.5 - Dyslipidemia Status: Chronic (8) Encephalopathy acute ICD Code: G93.40 - Encephalopathy, unspecified Status: Acute (9) DKA (diabetic ketoacidoses) ICD Code: E13.10 - Other specified diabetes mellitus with ketoacidosis without coma Status: Acute Assessment and Plan NEURO: Acute toxic metabolic encephalopathy Peripheral neuropathy Depression Hold chronic sedative medications including baclofen 10 mg as needed for hiccups , gapapentin 200 tid, Percocet 5/325 Duloxetine 30 mg by mouth daily CT brain -negative RESP: COPD Prior tobacco abuse Continue Symbicort 160/4.5 2 puffs inhaled twice a day Albuterol every 2 hours as needed. CV: HTN Peripheral arterial disease s/p L posterior tibial artery angioplasty Dr. Ortiz Continue Norvasc 5 mill grams by mouth daily, lisinopril 10 mg by mouth daily GI: NPO until mental status improves. Transition to diabetic diet when able to transition to insulin subcut FEN/RENAL: ESRD on hemodialysis Hyperkalemia Received calcium gluconate 2 g IV, insulin 10 units IV, bicarb 50 Meq IV, kayexalate 15 po daily, albuterol in the ED. Correcting acidosis (DKA) as per below HD per nephrology Vit D3 1000 units po daily ID: Leukocytosis Osteomyelitis L foot L second toe amputation 07/11/17 L posterior tibial artery angioplasty 09/24/17 I and D L foot 09/28/17 Left foot transmetatarsal amputation 09/26/17 (Dr. Judge) Poor wound healing and dry gangrene as well as probable wet gangrene noted Consult ID and podiatry, appears will need further debridement which may include BKA. Vascular surgery consult. assisted notes indicate: Cipro 500 mg by mouth every 12 hours started 12/13 for osteomyelitis. Diflucan 200 mg by mouth daily started 12/18 for "foot infection" Send blood cultures. Zosyn 2.25 IV q8 hours. Continue diflucan for now HEME: Chronic anemia Monitor CBC ENDO: DKA Diabetes mellitus Received insulin 10 units IV in the emergency department. Started on insulin drip. D10 initiated when glucose <200. Transition to subcut insulin when gap closed and alert enough to take po.CD assisted regimen is: Detemir 10 units subcutaneous twice a day NovoLog sliding scale PROPH: Heparin 5000 units subcutaneous every 12 hours for DVT prophylaxis. Protonix 40 mg by mouth daily ACCESS: Jose Potter 10/04/17 Dr. Barroso Level III H and P Problem Qualifiers (1) DKA (diabetic ketoacidoses): (2) Osteomyelitis: Qualified Codes: M86.8X7 - Other osteomyelitis, ankle and foot Yolande Mathews MD Dec 26, 2017 01:59
[2017-12-26] MEDS: CHLORHEXIDINE GLUCONATE 2 % 1 PACK (2 CLOTHS) TOP SCH (02:09)
[2017-12-26] MEDS ORDERED: DEXTROSE 10% INJ 1,000 ML IV SCH (02:15)
[2017-12-26] MEDS: PIPERACIL-TAZO 2.25 GM PREMIX 50 ML IV SCH ×4 (04:28→22:11)
[2017-12-26 05:52] LABS: BICARBONATE 27.7 MEQ/L (21.0-32.0); CALCIUM 7.9 MG/DL (8.5-10.1); CREATININE 7.8 MG/DL (0.60-1.30); PHOSPHORUS 6.9 MG/DL (2.5-4.9)
[2017-12-26 06:13] LABS: TROPONIN I 0.62 NG/ML (0.02-0.05)
[2017-12-26] MEDS ORDERED: DEXTROSE 50% IN WATER 50 ML SYRINGE ONE (06:59)
--- NOTE | 2017-12-26 07:04 | PD.POD ---
Past Med/Surg/Social History Past Medical History Endocrine: REPORTS HX OF: Diabetes mellitus (TYPE 2) Respiratory: REPORTS HX OF: COPD Cardiovascular: REPORTS HX OF: Hypertension, Peripheral vascular dz Genitourinary: REPORTS HX OF: Hemodialysis, Kidney failure (renal-stage 5) Neurologic: REPORTS HX OF: Peripheral neuropathy Past Surgical History HEENT: REPORTS HX OF: Other eye surgery Gastrointestinal: DENIES HX OF: Colectomy, total Social History Smoking Status: Unknown If Ever Smoked Objective Vital Signs Vital Signs Date Time Temp Pulse Resp B/P (MAP) Pulse Ox O2 Delivery O2 Flow Rate FiO2 12/26/17 00:00 78 12/26/17 00:00 97.4 78 8 143/55 (84) 100 12/25/17 23:07 97.7 72 16 127/58 (81) 12/25/17 22:50 74 12/25/17 22:00 73 12 112/71 (85) 100 Nasal Cannula 4.00 12/25/17 21:17 100 Nasal Cannula 4.00 12/25/17 20:35 63 10 95 Room Air 12/25/17 20:35 10 Room Air 12/25/17 20:32 98.9 63 10 115/46 (69) Coded Allergies: No Known Allergies (Verified Allergy, Unknown, 10/16/17) Assessment & Plan A/P FULL CONSULT DICTATED Left foot Gangrene TMA stump- mainly dry with possible evolving wet infected margins Right hallux gangrene- stable Consult vascular- if not able to improvement flow, like heading to BKA, no surgery planned from podiatry at this point. Reviewed case with Critical Care. Will follow Nghia Mathur DPM Dec 26, 2017 07:04
[2017-12-26] MEDS ORDERED: RESP: ALBUTEROL 2.5 MG/3 ML NEB (PRN) NEB (07:15)
[2017-12-26] MEDS ORDERED: DEXTROSE 50% IN WATER 50 ML SYRINGE IV ONE (07:30)
--- NOTE | 2017-12-26 08:02 | RADRPT ---
EXAM DATE/TIME: 12/26/2017 07:24 [facility] COMPARISON: FOOT RIGHT LIMITED (2VWS), December 26, 2017, 7:29. FOOT LEFT COMPLETE ([id number]), September 26, 2017, 8: 10. INDICATIONS : Left foot inflammation. MEDICAL HISTORY : None. SURGICAL HISTORY : None. ENCOUNTER: Initial ACUITY: 1 day PAIN SCORE: Non-responsive. LOCATION: Left distal foot. FINDINGS: Post surgical features of more proximal transmetatarsal amputation. There is soft tissue swelling ove rlying the stump. There is erosive change most prominently in the base of the fifth metatarsal. Tarsa l bones appear grossly intact. Extensive arterial calcifications. CONCLUSION: 1. Interval more proximal transmetatarsal amputation with soft tissue swelling and erosive change mos t prominently in the base of the fifth metatarsal concerning for osteomyelitis. Phani Vasquez MD on December 26, 2017 at 7:53 Board Certified Radiologist. This report was verified electronically.
--- NOTE | 2017-12-26 08:08 | RADRPT ---
EXAM DATE/TIME: 12/26/2017 07:29 [facility] COMPARISON: No previous studies available for comparison. INDICATIONS : Right foot inflammation. MEDICAL HISTORY : None. SURGICAL HISTORY : None. ENCOUNTER: Initial ACUITY: 1 day PAIN SCORE: Non-responsive. LOCATION: Right distal foot. FINDINGS: Two view examination of the right foot demonstrates soft tissue swelling overlying the distal first t oe. There is erosion and fragmentation of the tuft. Remaining osseous structures are intact without a cute bony fracture. Extensive vascular calcifications. CONCLUSION: 1. Findings concerning for osteomyelitis involving the tuft of the first toe. Phani Vasquez MD on December 26, 2017 at 8:00 Board Certified Radiologist. This report was verified electronically.
[2017-12-26] MEDS: BUDESONIDE-FORMOTEROL 160/4.5 MCG INHALER INH SCH ×2 (09:00→21:00)
[2017-12-26] MEDS ORDERED: CIPROFLOXACIN 500 MG TAB PO SCH (09:00)
[2017-12-26] MEDS: amLODIPine BESYLATE 5 MG TAB PO SCH (09:00)
--- NOTE | 2017-12-26 09:07 | PD.ID.CON ---
History of Present Illness Service ID Consult Requested By Reason for Consult Evaluation and Mment of possible Sepsis, Osteomyelitis in pt with DKA Primary Care Physician Naresh Juarez MD Diagnoses: History of Present Illness Most of the history was obtained by review of medical records as patient is confused and not oriented. is a 57 y/o AAM PMH of ESRD on HD M/W/F, DM, PAD, PVD, HTN, COPD, tobacco abuse presented from [facility] with decreased mental status. CT brain was negative. He was in DKA with glucose 706 and anion gap 23. Potassium 6.9. Dr. Arnett discussed with Nephrology and arranged for hemodialysis and consulted [facility] for admission. Of note his PMHx is also significant for multiple feet surgeries and h/o angioplasty as below: Left second toe amputation L second toe amputation 07/11/17 L posterior tibial artery angioplasty 09/24/17 () I and D L foot 09/28/17 Left foot transmetatarsal amputation 09/26/17 (Dr. Judge) Patient was last seen by Infectious Disease in October 2017, it appears a HD cath was placed for Unasyn for IV access for antibiotics. Not sure if patient was on antibiotics prior to admission will check with . Patient had a Ta cath present on admission. Patient has grown E.faecalis in recent past. Patient also grew MRSA prior to that admission. It appears Unasyn IV was ordered until Nov 07, 2017. From review of notes it appears at [facility] patient was on Cipro and Diflucan. Upon arrival in the emergency department patient's temperature was 98.9, heart rate 63, blood pressure 115/46 was on room air. Labs were grossly abnormal with WBC 12.2, H&H 9.2, 31.8, platelets 198, creatinine of 14.59, BUNs of 150, glucose of 708. Hub Lead saw the patient and patient was admitted to the ICU and was on an insulin drip overnight. At the time of my evaluation patient is in the ICU, not on any pressors, currently off insulin drip due to reported blood sugar of 100 concern for hypoglycemia. At the time of my evaluation patient was confused, not oriented to time place and person unsure this is a residual effect of the hypoglycemia or this is sepsis related. ID consulted for evaluation and Mment of Sepsis, Osteomyelitis. Review of Systems ROS Limitations: Clinical Condition, Altered Mental Status Past Family Social History Allergies: Coded Allergies: No Known Allergies (Verified Allergy, Unknown, 10/16/17) Past Medical History Renal failure, on dialysis due to diabetes. AV fistula on left arm Diabetes Mellitus at age 22, type 1 insulin dependent HTN Anemia HLD COPD Past Surgical History Left second toe amputation Left upper extremity fistula L second toe amputation 07/11/17 L posterior tibial artery angioplasty 09/24/17 I and D L foot 09/28/17 Left foot transmetatarsal amputation 09/26/17 (Dr. Judge) Right IJ Ta Reported Medications Reported Meds & Active Scripts Active Hydrocodone-Acetamin 7.5-325 (Hydrocodone/Acetaminophen) 7.5 Mg-325 Mg Tablet 1 Tab PO Q4H PRN Levemir Inj (Insulin Detemir) 1,000 unit/ 10 ML Vial 10 Units SQ Q12HR Do not mix with any other Insulin. Gabapentin 100 Mg Cap 200 Mg PO TID Norvasc (Amlodipine Besylate) 5 Mg Tab 5 Mg PO DAILY Levaquin (Levofloxacin) 500 Mg Tablet 500 Mg PO Q48H Unasyn Inj (Ampicillin-Sulbactam Inj) 3 Gm Vial 3 Gm IV DAILY Novolog Inj (Insulin Aspart) 1,000 Unit/10 Ml Vial 1-9 Units SQ ACHS sugars less than 70,(0)units; sugars 150-199,(1) unit; sugars 200-249,(3) units; sugars 250-299,(5) units; sugars 300-349,(7) units; sugars greater than 349,(9) units Renvela (Sevelamer Carbonate) 800 Mg Tab 1,600 Mg PO TIDAC Hydrocodone-Acetaminophen 5-325 mg Tab 1-2 Tab PO Q4HR PRN Symbicort Inh (Budesonide/Formoterol Fumarate) 160-4.5 Mcg/Act Aero 1 Puff INH Q12HR Duloxetine DR (Duloxetine HCl) 30 Mg Capdr 30 Mg PO DAILY Atorvastatin (Atorvastatin Calcium) 40 Mg Tab 40 Mg PO HS Reported Baclofen 10 Mg Tab 10 Mg PO DAILY PRN Vitamin D3 (Cholecalciferol) 1,000 Unit Cap 1,000 Units PO DAILY Dialyvite 800/Zinc 15 (B-Complex W/ C-Zn & Folic Acid) 1 Tab 1 Tab DAILY Active Ordered Medications Current Medications Medications (Trade) Dose Ordered Sig/April Route Start Time Stop Time Status Last Admin Insulin Human Regular 100 units/ Sodium Chloride 100 ml @ 6.5 mls/hr TITRATE PRN IV 12/25/17 21:30 12/25/17 22:40 (NS Flush) 2 ml UNSCH PRN IV FLUSH 12/26/17 01:45 (NS Flush) 2 ml BID IV FLUSH 12/26/17 09:00 12/26/17 10:08 (Protonix) 40 mg DAILY PO 12/26/17 09:00 12/26/17 10:08 (Zofran Inj) 4 mg Q6H PRN IV PUSH 12/26/17 01:45 Miscellaneous Information 1 Q361D XX 12/26/17 01:45 12/26/17 01:45 (Chlorhexidine 2% Cloth) 3 pack Taper DAILY@04 TOP 12/26/17 04:00 12/22/18 03:59 12/26/17 02:09 (Chlorhexidine 2% Cloth) 3 pack UNSCH PRN TOP 12/26/17 01:45 (Odette-Colace) 1 tab BID PO 12/26/17 09:00 12/26/17 10:08 (Milk Of Magnesia Liq) 30 ml Q12H PRN PO 12/26/17 01:45 (Senokot) 17.2 mg Q12H PRN PO 12/26/17 01:45 (Dulcolax Supp) 10 mg DAILY PRN RECTAL 12/26/17 01:45 (Lactulose Liq) 30 ml DAILY PRN PO 12/26/17 01:45 Dextrose 1,000 ml @ 40 mls/hr Q24H IV 12/26/17 02:15 12/26/17 02:09 (Diflucan) 200 mg DAILY PO 12/26/17 09:00 12/26/17 10:08 Piperacillin Sod/ Tazobactam Sod 50 ml @ 100 mls/hr Q8H IV 12/26/17 02:00 12/26/17 04:28 (Symbicort 160-4.5 Mcg Inh) 1 puff Q12HR INH 12/26/17 09:00 (Vitamin D3) 1,000 units DAILY PO 12/26/17 09:00 12/26/17 10:08 (Norvasc) 5 mg DAILY PO 12/26/17 09:00 12/26/17 09:00 (Cymbalta Dr) 30 mg DAILY PO 12/26/17 09:00 12/26/17 10:08 (Albuterol Neb) 2.5 mg Q2HR NEB PRN NEB 12/26/17 07:15 (Heparin Inj) 5,000 units Q12HR SQ 12/26/17 09:00 12/26/17 10:07 Family History Mother of cancer at age of 70 Father of heart disease at the age of 70 Social History Per review of records: Has denied prior alcohol use Former smoker, a third of a pack per day for 30 years Denies illicit drug use Physical Exam Vital Signs Vital Signs Date Time Temp Pulse Resp B/P (MAP) Pulse Ox O2 Delivery O2 Flow Rate FiO2 12/26/17 06:00 81 12/26/17 04:00 80 12/26/17 04:00 97.8 80 8 124/60 (81) 100 12/26/17 02:00 80 12/26/17 00:00 78 12/26/17 00:00 97.4 78 8 143/55 (84) 100 12/25/17 23:07 97.7 72 16 127/58 (81) 12/25/17 22:50 74 12/25/17 22:00 73 12 112/71 (85) 100 Nasal Cannula 4.00 12/25/17 21:17 100 Nasal Cannula 4.00 12/25/17 20:35 63 10 95 Room Air 12/25/17 20:35 10 Room Air 12/25/17 20:32 98.9 63 10 115/46 (69) Physical Exam GENERAL: This is a well-nourished, well-developed patient, in no apparent distress. SKIN: No rashes, ecchymoses or lesions. Cool and dry. HEAD: Atraumatic. Normocephalic. No temporal or scalp tenderness. EYES: Pupils equal round and reactive. Extraocular motions intact. No scleral icterus. No injection or drainage. ENT: Nose without bleeding, purulent drainage or septal hematoma. Throat without erythema, tonsillar hypertrophy or exudate. Uvula midline. Airway patent. NECK: Trachea midline. Supple, nontender, ? neck stiffness. CARDIOVASCULAR: HS audible. RESPIRATORY: Clear to auscultation. Breath sounds equal bilaterally. No wheezes , rales, or rhonchi. GASTROINTESTINAL: Abdomen soft, non-tender, nondistended. MUSCULOSKELETAL: Right great toe with ? amputation of tip with blackening of margins noted. Right forefoot amputation site with areas of dry blackening and few areas of wet blackening on edges. No discharge or foul smell noted. Warmth noted. Dorsalis pedis palpable. NEUROLOGICAL: Somnolent, arousable, confused, not oriented to time, place or person at time of my visit. Moves all 4 extremities. Psych cooperative IV line sites with no e.o infection. HD cath site with no e.o infection. Laboratory Laboratory Tests Test 12/25/17 20:35 12/25/17 20:54 12/25/17 23:00 12/26/17 04:45 White Blood Count 12.2 Red Blood Count 3.94 Hemoglobin 9.2 Bedside Hemoglobin 10.2 Hematocrit 31.8 Bedside Hematocrit 30.0 Mean Corpuscular Volume 80.7 Mean Corpuscular Hemoglobin 23.5 Mean Corpuscular Hemoglobin Concent 29.1 Red Cell Distribution Width 21.5 Platelet Count 198 Mean Platelet Volume 8.9 Neutrophils (%) (Auto) 87.5 Lymphocytes (%) (Auto) 4.7 Monocytes (%) (Auto) 7.6 Eosinophils (%) (Auto) 0.0 Basophils (%) (Auto) 0.2 Neutrophils # (Auto) 10.7 Lymphocytes # (Auto) 0.6 Monocytes # (Auto) 0.9 Eosinophils # (Auto) 0.0 Basophils # (Auto) 0.0 CBC Comment DIFF FINAL Differential Comment Bedside Sodium 125 Blood Urea Nitrogen 150 64 Creatinine 14.59 7.80 Random Glucose 706 100 Total Protein 6.6 Albumin 2.3 Calcium Level 8.4 7.9 Phosphorus Level 13.0 6.9 Magnesium Level 2.3 2.0 Alkaline Phosphatase 222 Aspartate Amino Transf (AST/SGOT) 66 Alanine Aminotransferase (ALT/SGPT) 40 Total Bilirubin 0.5 Sodium Level 127 140 Potassium Level 6.9 3.5 Chloride Level 92 99 Carbon Dioxide Level 11.8 27.7 Bedside Potassium 6.8 Bedside Chloride 98 Anion Gap 23 13 Bedside Blood Urea Nitrogen GREATER THAN 140 Bedside Creatinine 15.3 Estimat Glomerular Filtration Rate 4 9 Bedside Glucose 694 Lactic Acid Level 2.4 Troponin I 0.22 0.62 Lipase 110 B-Hydroxybutyrate 2.04 Blood Gas Puncture Site RT BRACHIAL Blood Gas Patient Temperature 98.6 Blood Gas HCO3 13 Blood Gas Base Excess -14.0 Blood Gas Oxygen Saturation 97 Arterial Blood pH 7.19 Arterial Blood Partial Pressure CO2 34 Arterial Blood Partial Pressure O2 165 Arterial Blood Oxygen Content 13.2 Arterial Blood Carboxyhemoglobin 1.3 Arterial Blood Methemoglobin 0.5 Blood Gas Hemoglobin 9.4 Oxygen Delivery Device NASAL CANNULA Blood Gas Liter Flow 4 Nasal Screen MRSA (PCR) MRSA NOT DETECTED Date/Time Source Procedure Growth Status 12/26/17 04:45 Blood Peripheral Aerobic Blood Culture Pending Received 12/26/17 04:45 Blood Peripheral Anaerobic Blood Culture Pending Received Result Diagram: 12/25/17203412/26/17 0445 Imaging Last Impressions Foot X-Ray 12/26/17 0000 Signed Impressions: Service Date/Time: Tuesday, December 26, 2017 07:29 - CONCLUSION: 1. Findings concerning for osteomyelitis involving the tuft of the first toe. Phani Vasquez MD Head CT [id number]/25/[id number] Signed Impressions: Service Date/Time: Monday, December 25, 2017 22:22 - CONCLUSION: No acute intracranial abnormality demonstrated. Eliu Ayala MD Chest X-Ray 12/25/172026 Signed Impressions: Service Date/Time: Monday, December 25, 2017 20:45 - CONCLUSION: No evidence of acute cardiopulmonary disease. Eliu Ayala MD Assessment and Plan Assessment and Plan Osteomyelitis L foot (L second toe amputation 07/11/17 L posterior tibial artery angioplasty 09/24/17 I and D L foot 09/28/17 Left foot transmetatarsal amputation 09/26/17 (Dr. Judge) Peripheral arterial disease s/p L posterior tibial artery angioplasty Dr. Ortiz Leukocytosis: reactive, infection. DKA, Diabetes mellitus with Neuropathy and Nephropathy. ESRD on hemodialysis Acute metabolic encephalopathy: DKA, sepsis, ? meningitis workup if AMS persists. Peripheral neuropathy COPD, Prior tobacco abuse HTN Recs: Continue Zosyn IV for now. Continue Diflucan for now. Unsure if there were any out of hospital cultures from foot with fungus. If fevers persist or change in clinical condition: get Vascath site blood cultures and start Vanco IV. Follow cultures Follow clinically. Follow vascular consult recs. Podiary notes reviewed. Neurochecks. nadir Candelaria to reassess clinically at later time once hypoglycemia resolves to see if confusion persists and if need for meningitis workup. DM pts at risk for Cerebral Mucormycosis. Noelle Mabry RN, MD Dec 26, 2017 09:07
[2017-12-26] MEDS: HEPARIN SODIUM - SQ 10,000 UNITS/ML VIAL SQ SCH ×2 (10:07→22:11)
[2017-12-26] MEDS: SODIUM CHLORIDE 0.9% FLUSH 10 ML FLUSH IV FLUSH SCH ×2 (10:08→21:00)
[2017-12-26] MEDS: PANTOPRAZOLE SOD 40 MG DELAYED RELEASE TAB PO SCH (10:08)
[2017-12-26] MEDS: DULoxetine HCl DR 30 MG CAP PO SCH (10:08)
[2017-12-26] MEDS: CHOLECALCIFEROL (VIT D3) 1000 UNIT TAB PO SCH (10:08)
[2017-12-26] MEDS: FLUCONAZOLE 200 MG TAB PO SCH (10:08)
[2017-12-26] MEDS: DOCUSATE SODIUM 50 MG/SENNA 8.6 MG TAB PO SCH ×2 (10:08→21:00)
[2017-12-26] MEDS: LOW DOSE INSULIN NOVOLOG SUPPLEMENTAL SCALE SQ SCH ×3 (12:47→22:10)
[2017-12-26] MEDS ORDERED: GLUCAGON 1 MG/ML VIAL OTHER PRN (13:00)
[2017-12-26 13:04] LABS: BICARBONATE 24.8 MEQ/L (21.0-32.0); CALCIUM 7.6 MG/DL (8.5-10.1); CREATININE 8.65 MG/DL (0.60-1.30); MAGNESIUM 2.1 MG/DL (1.5-2.5)
[2017-12-26 13:14] LABS: TROPONIN I 0.75 NG/ML (0.02-0.05)
[2017-12-26] MEDS ORDERED: ALBUMIN 25% INJ 100 ML IV PRN (13:45)
[2017-12-26] MEDS ORDERED: GENTAMICIN SULFATE 20 MG/2 ML VIAL OTHER PRN (13:45)
[2017-12-26] MEDS ORDERED: ONDANSETRON HCL 4 MG/2 ML VIAL IV PUSH PRN (13:45)
[2017-12-26] MEDS ORDERED: cloNIDine HCL 0.1 MG TAB PO PRN (13:45)
[2017-12-26] MEDS ORDERED: MANNITOL 12.5 GM/50 ML VIAL IV PRN (13:45)
[2017-12-26] MEDS ORDERED: ACETAMINOPHEN 325 MG TAB PO PRN (13:45)
[2017-12-26] MEDS ORDERED: SODIUM CHLOR 0.9% 1000 ML INJ 1,000 ML OTHER PRN ×2 (13:45)
[2017-12-26] MEDS ORDERED: HEPARIN SODIUM - IV 10,000 UNITS/10 ML VIAL PRN (13:45)
[2017-12-26] MEDS ORDERED: SODIUM CHLOR 0.9% 1000 ML INJ 1,000 ML IV PRN (13:45)
[2017-12-26] MEDS ORDERED: HEPARIN SODIUM - IV 10,000 UNITS/10 ML VIAL IV FLUSH PRN (13:45)
--- NOTE | 2017-12-26 13:49 | PD.CONS ---
HPI Service Nephrology Consult Requested By Reason for Consult ESRD on HD, Hyperkalemia Primary Care Physician Naresh Juarez MD History of Present Illness This is a 57 y/o dialysis patient who also has IDDM and is a brittle diabetic. He was brought in from assisted for elevated blood glucose and altered mental status. On arrival he had multiple lab abnormalities: K 6.9, improved to 4.4 today. Also creatinine 14.59, improved to 8.65. BG 706, Troponin 0.22, 0.62 , and 0.72. PMH listed below includes ESRD on dialysis, diabetes, CAD, COPD, PAD , and osteomyelitis of his left foot. He has a Ta catheter in place, it was placed in September for IV Unasyn. It is unclear if he has used the catheter recently. He has had angioplasty of his lower extremities in the past few months. In addition, he was admitted to [facility] last week where he had angiogram of his lower ext and revascularization of his RLE at that time. Due to hyperkalemia, he was dialyzed emergently last night on a 1K bath. 2 liters of fluid was removed. We were consulted to assist with management today. He is also going to be followed by vascular, podiatry, and ID. On exam today he is sleepy, off inulin gtt, glucose 100s today. He is aggressive and hostile to staff members currently. Vital signs are stable, he is not on IVF or pressors currently. He is a full code. (Jasmyne Bee) Review of Systems ROS Limitations: Altered Mental Status Constitutional: COMPLAINS OF: Fatigue, DENIES: Weight gain, Change in appetite Respiratory: DENIES: Shortness of breath Cardiovascular: DENIES: Chest pain, Dyspnea on Exertion, Lower Extremity Edema Musculoskeletal: COMPLAINS OF: Joint pain (Jasmyne Bee) Past Family Social History Allergies: Coded Allergies: No Known Allergies (Verified Allergy, Unknown, 10/16/17) Past Medical History End Stage Renal failure due to diabetic nephropathy since 2013. TTS schedule. * AV fistula on left arm IDDM HTN Anemia HLD COPD Metabolic Bone Disorder Past Surgical History Left second toe amputation Left upper extremity fistula L second toe amputation 07/11/17 L posterior tibial artery angioplasty 09/24/17 RLE angioplasty 12/2017 I and D L foot 09/28/17 Left foot transmetatarsal amputation 09/26/17 (Dr. Judge) Right IJ Ta 09/1017 Reported Medications Hydrocodone-Acetamin 7.5-325 (Hydrocodone/Acetaminophen) 7.5 Mg-325 Mg Tablet 1 Tab PO Q4H PRN Levemir Inj (Insulin Detemir) 1,000 unit/ 10 ML Vial 10 Units SQ Q12HR Do not mix with any other Insulin. Gabapentin 100 Mg Cap 200 Mg PO TID Norvasc (Amlodipine Besylate) 5 Mg Tab 5 Mg PO DAILY Levaquin (Levofloxacin) 500 Mg Tablet 500 Mg PO Q48H Unasyn Inj (Ampicillin-Sulbactam Inj) 3 Gm Vial 3 Gm IV DAILY Novolog Inj (Insulin Aspart) 1,000 Unit/10 Ml Vial 1-9 Units SQ ACHS sugars less than 70,(0)units; sugars 150-199,(1) unit; sugars 200-249,(3) units; sugars 250-299,(5) units; sugars 300-349,(7) units; sugars greater than 349,(9) units Renvela (Sevelamer Carbonate) 800 Mg Tab 1,600 Mg PO TIDAC Hydrocodone-Acetaminophen 5-325 mg Tab 1-2 Tab PO Q4HR PRN Symbicort Inh (Budesonide/Formoterol Fumarate) 160-4.5 Mcg/Act Aero 1 Puff INH Q12HR Duloxetine DR (Duloxetine HCl) 30 Mg Capdr 30 Mg PO DAILY Atorvastatin (Atorvastatin Calcium) 40 Mg Tab 40 Mg PO HS Reported Baclofen 10 Mg Tab 10 Mg PO DAILY PRN Vitamin D3 (Cholecalciferol) 1,000 Unit Cap 1,000 Units PO DAILY Dialyvite 800/Zinc 15 (B-Complex W/ C-Zn & Folic Acid) 1 Tab 1 Tab DAILY Active Ordered Medications Current Medications Medications (Trade) Dose Ordered Sig/April Route Start Time Stop Time Status Last Admin (NS Flush) 2 ml UNSCH PRN IV FLUSH 12/26/17 01:45 (NS Flush) 2 ml BID IV FLUSH 12/26/17 09:00 12/26/17 10:08 (Protonix) 40 mg DAILY PO 12/26/17 09:00 12/26/17 10:08 (Zofran Inj) 4 mg Q6H PRN IV PUSH 12/26/17 01:45 Miscellaneous Information 1 Q361D XX 12/26/17 01:45 12/26/17 01:45 (Chlorhexidine 2% Cloth) 3 pack Taper DAILY@04 TOP 12/26/17 04:00 12/22/18 03:59 12/26/17 02:09 (Chlorhexidine 2% Cloth) 3 pack UNSCH PRN TOP 12/26/17 01:45 (Odette-Colace) 1 tab BID PO 12/26/17 09:00 12/26/17 10:08 (Milk Of Magnesia Liq) 30 ml Q12H PRN PO 12/26/17 01:45 (Senokot) 17.2 mg Q12H PRN PO 12/26/17 01:45 (Dulcolax Supp) 10 mg DAILY PRN RECTAL 12/26/17 01:45 (Lactulose Liq) 30 ml DAILY PRN PO 12/26/17 01:45 Dextrose 1,000 ml @ 40 mls/hr Q24H IV 12/26/17 02:15 12/26/17 02:09 (Diflucan) 200 mg DAILY PO 12/26/17 09:00 12/26/17 10:08 (Symbicort 160-4.5 Mcg Inh) 1 puff Q12HR INH 12/26/17 09:00 (Vitamin D3) 1,000 units DAILY PO 12/26/17 09:00 12/26/17 10:08 (Norvasc) 5 mg DAILY PO 12/26/17 09:00 12/26/17 09:00 (Cymbalta Dr) 30 mg DAILY PO 12/26/17 09:00 12/26/17 10:08 (Albuterol Neb) 2.5 mg Q2HR NEB PRN NEB 12/26/17 07:15 (Heparin Inj) 5,000 units Q12HR SQ 12/26/17 09:00 12/26/17 10:07 Piperacillin Sod/ Tazobactam Sod 50 ml @ 100 mls/hr Q8H IV 12/26/17 12:00 12/26/17 12:00 (D50w (Vial) Inj) 50 ml UNSCH PRN IV PUSH 12/26/17 13:00 (Glucagon Inj) 1 mg UNSCH PRN OTHER 12/26/17 13:00 (NovoLOG SUPPLEMENTAL SCALE) 1 Q4HR SQ 12/26/17 12:47 12/26/17 12:47 Family History multiple members with DM , HTN, CKD Social History Current Smoker Hx of drug use, not current Residing in assisted, previously homeless Full code Unemployed (Jasmyne Bee) Physical Exam Vital Signs Vital Signs Date Time Temp Pulse Resp B/P (MAP) Pulse Ox O2 Delivery O2 Flow Rate FiO2 12/26/17 12:00 98.6 81 10 135/63 (87) 100 12/26/17 12:00 96 12/26/17 10:00 96 12/26/17 08:00 96 12/26/17 08:00 98.1 78 11 114/59 (77) 12/26/17 07:00 98 12/26/17 06:00 81 12/26/17 04:00 80 12/26/17 04:00 97.8 80 8 124/60 (81) 100 12/26/17 02:00 80 12/26/17 00:00 78 12/26/17 00:00 97.4 78 8 143/55 (84) 100 12/25/17 23:07 97.7 72 16 127/58 (81) 12/25/17 22:50 74 12/25/17 22:00 73 12 112/71 (85) 100 Nasal Cannula 4.00 12/25/17 21:17 100 Nasal Cannula 4.00 12/25/17 20:35 63 10 95 Room Air 12/25/17 20:35 10 Room Air 12/25/17 20:32 98.9 63 10 115/46 (69) Physical Exam young AAM lying in bed, eyes closed but opens to tactile stimulation Shouting at staff, slightly hostile S1/S2, RRR, no murmurs or rubs lungs clear in all valdez abdomen soft, non tender, non distended ext: no edema; LUE AVF, + thrill/bruit; left foot, s/p left midfoot amputation; dressing is off, bone exposed. Border of wound looks necrotic. Vera are present right foot great toe with open wound, nail is deformed, some drainage Ta right chest Laboratory Laboratory Tests Test 12/25/17 20:35 12/25/17 20:54 12/25/17 23:00 3/14/18 04:45 White Blood Count 12.2 Red Blood Count 3.94 Hemoglobin 9.2 Bedside Hemoglobin 10.2 Hematocrit 31.8 Bedside Hematocrit 30.0 Mean Corpuscular Volume 80.7 Mean Corpuscular Hemoglobin 23.5 Mean Corpuscular Hemoglobin Concent 29.1 Red Cell Distribution Width 21.5 Platelet Count 198 Mean Platelet Volume 8.9 Neutrophils (%) (Auto) 87.5 Lymphocytes (%) (Auto) 4.7 Monocytes (%) (Auto) 7.6 Eosinophils (%) (Auto) 0.0 Basophils (%) (Auto) 0.2 Neutrophils # (Auto) 10.7 Lymphocytes # (Auto) 0.6 Monocytes # (Auto) 0.9 Eosinophils # (Auto) 0.0 Basophils # (Auto) 0.0 CBC Comment DIFF FINAL Differential Comment Bedside Sodium 125 Blood Urea Nitrogen 150 64 Creatinine 14.59 7.80 Random Glucose 706 100 Total Protein 6.6 Albumin 2.3 Calcium Level 8.4 7.9 Phosphorus Level 13.0 6.9 Magnesium Level 2.3 2.0 Alkaline Phosphatase 222 Aspartate Amino Transf (AST/SGOT) 66 Alanine Aminotransferase (ALT/SGPT) 40 Total Bilirubin 0.5 Sodium Level 127 140 Potassium Level 6.9 3.5 Chloride Level 92 99 Carbon Dioxide Level 11.8 27.7 Bedside Potassium 6.8 Bedside Chloride 98 Anion Gap 23 13 Bedside Blood Urea Nitrogen GREATER THAN 140 Bedside Creatinine 15.3 Estimat Glomerular Filtration Rate 4 9 Bedside Glucose 694 Lactic Acid Level 2.4 Troponin I 0.22 0.62 Lipase 110 B-Hydroxybutyrate 2.04 Blood Gas Puncture Site RT BRACHIAL Blood Gas Patient Temperature 98.6 Blood Gas HCO3 13 Blood Gas Base Excess -14.0 Blood Gas Oxygen Saturation 97 Arterial Blood pH 7.19 Arterial Blood Partial Pressure CO2 34 Arterial Blood Partial Pressure O2 165 Arterial Blood Oxygen Content 13.2 Arterial Blood Carboxyhemoglobin 1.3 Arterial Blood Methemoglobin 0.5 Blood Gas Hemoglobin 9.4 Oxygen Delivery Device NASAL CANNULA Blood Gas Liter Flow 4 Nasal Screen MRSA (PCR) MRSA NOT DETECTED Test 12/26/17 11:31 Blood Urea Nitrogen 68 Creatinine 8.65 Random Glucose 326 Calcium Level 7.6 Phosphorus Level 9.0 Magnesium Level 2.1 Sodium Level 136 Potassium Level 4.4 Chloride Level 96 Carbon Dioxide Level 24.8 Anion Gap 15 Estimat Glomerular Filtration Rate 8 Troponin I 0.75 Date/Time Source Procedure Growth Status 12/26/17 04:45 Blood Peripheral Aerobic Blood Culture Pending Received 12/26/17 04:45 Blood Peripheral Anaerobic Blood Culture Pending Received (Jasmyne Bee) Result Diagram: 12/25/17203412/26/17 1131 Imaging Last 72 hours Impressions Foot X-Ray 12/26/17 0000 Signed Impressions: Service Date/Time: Tuesday, December 26, 2017 07:29 - CONCLUSION: 1. Findings concerning for osteomyelitis involving the tuft of the first toe. Phani Vasquez MD Foot X-Ray 12/26/17 0000 Signed Impressions: Service Date/Time: Tuesday, December 26, 2017 07:24 - CONCLUSION: 1. Interval more proximal transmetatarsal amputation with soft tissue swelling and erosive change most prominently in the base of the fifth metatarsal concerning for osteomyelitis. Phani Vasquez MD Head CT 12/25/172124 Signed Impressions: Service Date/Time: Monday, December 25, 2017 22:22 - CONCLUSION: No acute intracranial abnormality demonstrated. Eliu Ayala MD Chest X-Ray 12/25/172026 Signed Impressions: Service Date/Time: Monday, December 25, 2017 20:45 - CONCLUSION: No evidence of acute cardiopulmonary disease. Eliu Ayala MD (Jasmyne Bee) Assessment and Plan Problem List: (1) ESRD (end stage renal disease) ICD Codes: N18.6 - End-stage renal disease Status: Resolved Plan: HD MWF, had treatment overnight, 2L UF Repeat labs in AM, HD tomorrow if needed. Avoid IVF administration, gadolinium in contraindicated Using AVF left arm for HD High protein diet ordered with protein supplements. Repeat labs (2) Hyperkalemia ICD Codes: E87.5 - Hyperkalemia Status: Acute Plan: Secondary to DKA Dialyzed on a 1K bath overnight, repeat K is better. Low K diet Follow labs. (3) PAD (peripheral artery disease) ICD Codes: I73.9 - Peripheral vascular disease, unspecified Status: Chronic Plan: He had stent placed to right leg the end of last week, had arteriogram at the same time. Vascular to follow, podiatry has also been consulted. Needs wound care to left foot/amputation site. (4) Osteomyelitis ICD Codes: M86.9 - Osteomyelitis, unspecified Status: Acute Plan: ID has evaluated He is on Zosyn and Diflucan (per SNF records, unsure if he has fungal foot infection). Off Cipro PO. May need L BKA if no improvement. Cultures are negative at this time. Continue to monitor. Pending vascular evaluation. No intervention from podiatry at this time. Unclear if we can remove the At; if antibiotics will be required at discharge consider leaving it in. ID assistance is appreciated. (5) DKA (diabetic ketoacidoses) ICD Codes: E13.10 - Other specified diabetes mellitus with ketoacidosis without coma Status: Acute Plan: He is off the insulin gtt. Anion gap is closed. He is a brittle diabetic, difficult to control On SQ insulin, D10 per protocol. Goal 140-180 mg/dL. Obtain A1c. (6) Bone metabolism disorder ICD Codes: E88.9 - Metabolic disorder, unspecified; M90.80 - Osteopathy in diseases classified elsewhere, unspecified site Status: Acute Plan: Phosphorus is very high, begin Renvela 1600 mg PO with meals (7) Anemia ICD Codes: D64.9 - Anemia, unspecified Plan: Epogen with dialysis (8) HTN (hypertension) ICD Codes: I10 - Essential (primary) hypertension Status: Chronic Plan: Resume home medications, titrate as needed Permanent Comment: Last Edited By: Jasmyne Bee on Jul 11, 2017 15:31 ( Jasmyne Bee) Assessment and Plan patient was seen and examined. Agree with above assessment and plan. His prognosis is very poor. Multiple hospital admissions in the past few months. Multiple severe comorbidities. (Maurice Schultz MD) Problem Qualifiers (1) Osteomyelitis: Qualified Codes: M86.8X7 - Other osteomyelitis, ankle and foot (2) DKA (diabetic ketoacidoses): Qualified Codes: E10.11 - Type 1 diabetes mellitus with ketoacidosis with coma Jasmyne Bee Dec 26, 2017 13:49 Maurice Schultz MD Dec 27, 2017 08:25
[2017-12-26] MEDS ORDERED: MORPHINE SULFATE 2 MG/ML INJ IM PRN (14:30)
[2017-12-26] MEDS: ASPIRIN 81 MG CHEW TAB CHEW SCH (16:10)
[2017-12-26 16:21] LABS: BICARBONATE 23.5 MEQ/L (21.0-32.0); CALCIUM 7.6 MG/DL (8.5-10.1); CREATININE 9.04 MG/DL (0.60-1.30)
[2017-12-26] MEDS: SEVELAMER CARBONATE 800 MG TAB PO SCH (17:00)
[2017-12-26 17:46] LABS: PHOSPHORUS 8.4 MG/DL (2.5-4.9)
[2017-12-26] MEDS: MORPHINE SULFATE 2 MG/ML INJ IV PRN ×2 (18:30→22:21)
--- NOTE | 2017-12-26 19:30 | MB ---
cc: Nghia Mathur DPM DATE OF CONSULT: 12/26/2017 REASON FOR CONSULTATION: Left foot necrotic amputation stump, as well as gangrenous changes to the right foot. HISTORY OF PRESENT ILLNESS: This is a 57-year-old male who was brought to the hospital with increasing lethargy. The patient is a known insulin-dependent diabetic who is known to undergo dialysis Sunday, Sunday, Sunday. Upon questioning the patient, he is very agitated. He is not giving me much history. The history much is taken from the chart. PAST MEDICAL HISTORY: End-stage renal disease, hypertension, depression, peripheral neuropathy, peripheral artery disease, diabetes, osteomyelitis, COPD, tobacco abuse. PAST SURGICAL HISTORY: Left upper extremity fistula, left second toe amputation, left posterior tibial arthroplasty, incision and drainage of left foot, left foot transmetatarsal amputation, right IJ Ta catheter. REPORTED OUTPATIENT MEDICATIONS: Reviewed. It appears the patient was taking Cipro for osteomyelitis. INPATIENT MEDICATIONS: Also reviewed. The patient is receiving Zosyn and Cipro. LABORATORY FINDINGS: White blood cell 12.2, hemoglobin and hematocrit 9 and 31, platelet count is 198. Chem-7: Sodium 140, potassium 3.5, chloride 99, CO2 of 27.7, BUN 64, creatinine 7.8, random glucose 694. MICROBIOLOGY FINDINGS: Blood culture ordered and pending. PHYSICAL EXAMINATION: VITAL SIGNS: Temperature 97.8, pulse 80, respiratory rate 8, blood pressure 124/60. He is satting 100% on room air. GENERAL: This is an alert to person and place patient. He is in no acute distress but he is very uncomfortable. MUSCULOSKELETAL: Bilateral lower extremities were examined. Left lower extremity, there is noted to be a proximal transmetatarsal amputation stump, with a cool hindfoot, with an eschar, with brenda intact, with exposed metatarsals. There is no active pus. There is a very faint odor. Pulses of the extremity are not palpable. Right lower extremity, there are dry gangrenous changes of the hallux and lesser digits with no odor, no obvious fluctuance. Pulses are not palpable of the right lower extremity. Sensation appears to be intact to deep pressure; however, none to light touch. ASSESSMENT AND PLAN: Left foot status post transmetatarsal amputation that appears to be gangrenous and nonhealing. Early gangrenous findings seen of the right foot. Severe peripheral vascular disease. At this point in time, the patient appears to be not a surgical candidate for limb salvage. I will consult Vascular to see if we are able to improve circulation. The left lower extremity, I am also certain, needs a below the knee amputation. The right lower extremity, there may be an attempt at a right transmetatarsal amputation if circulation can be improved. We will follow for conservative care only at this point. We will sign out to Dr. Stinson. YAKELIN Lujan/CLAUDIA , 07:07 PM , 07:29 PM
--- NOTE | 2017-12-26 23:02 | EKG ---
Date Performed: 12/26/2017 Time Performed: 06:55:13 PTAGE: 57 years EKG: Sinus rhythm POSSIBLE LEFT ATRIAL ENLARGEMENT BORDERLINE ECG PREVIOUS TRACING : 12/25/2017 20.28 Since the previous tracing, no significant change noted DOCTOR: Devon Penaloza Interpretating Date/Time 12/26/2017 23:02:12
--- NOTE | 2017-12-26 23:34 | EKG ---
Date Performed: 12/25/2017 Time Performed: 20:28:25 PTAGE: 57 years EKG: Sinus rhythm SEPTAL MYOCARDIAL INFARCTION ABNORMAL ECG NO PREVIOUS TRACING DOCTOR: Devon Penaloza Interpretating Date/Time 12/26/2017 23:32:05
[2017-12-27] VITALS (12 sets, daily range): BP systolic 110–132; BP diastolic 55–63; PULSE 83–91; RESP 10–15; TEMP 98.2–99.1; O2SAT 93–100
[2017-12-27] MEDS: LOW DOSE INSULIN NOVOLOG SUPPLEMENTAL SCALE SQ SCH ×6 (00:13→20:56)
[2017-12-27 01:01] LABS: BICARBONATE 23.7 MEQ/L (21.0-32.0); CALCIUM 7.3 MG/DL (8.5-10.1); MAGNESIUM 2.1 MG/DL (1.5-2.5)
[2017-12-27 01:11] LABS: CREATININE 10.15 MG/DL (0.60-1.30)
[2017-12-27 01:13] LABS: PHOSPHORUS 8.5 MG/DL (2.5-4.9)
[2017-12-27 01:45] LABS: CALCIUM-PROTEIN CORRECTED 7.5 MG/DL (8.5-10.1); TOTAL PROTEIN 6.7 GM/DL (6.4-8.2)
[2017-12-27] MEDS: PIPERACIL-TAZO 2.25 GM PREMIX 50 ML IV SCH ×3 (03:34→20:56)
[2017-12-27] MEDS: CHLORHEXIDINE GLUCONATE 2 % 1 PACK (2 CLOTHS) TOP SCH (03:34)
[2017-12-27 03:51] LABS: ALBUMIN 2.3 GM/DL (3.4-5.0); BICARBONATE 25.7 MEQ/L (21.0-32.0); CALCIUM 7.4 MG/DL (8.5-10.1); CALCIUM-PROTEIN CORRECTED 7.6 MG/DL (8.5-10.1); TOTAL BILIRUBIN ADULT 0.4 MG/DL (0.2-1.0); TOTAL PROTEIN 6.8 GM/DL (6.4-8.2)
[2017-12-27 03:57] LABS: CREATININE 10.15 MG/DL (0.60-1.30)
[2017-12-27 04:08] LABS: PHOSPHORUS 8.6 MG/DL (2.5-4.9)
[2017-12-27] MEDS: DULoxetine HCl DR 30 MG CAP PO SCH (08:09)
[2017-12-27] MEDS: FLUCONAZOLE 200 MG TAB PO SCH (08:09)
[2017-12-27] MEDS: DOCUSATE SODIUM 50 MG/SENNA 8.6 MG TAB PO SCH ×2 (08:09→20:57)
[2017-12-27] MEDS: ASPIRIN 81 MG CHEW TAB CHEW SCH (08:09)
[2017-12-27] MEDS: SEVELAMER CARBONATE 800 MG TAB PO SCH ×2 (08:09→16:59)
[2017-12-27] MEDS: HEPARIN SODIUM - SQ 10,000 UNITS/ML VIAL SQ SCH ×2 (08:09→20:56)
[2017-12-27] MEDS: CHOLECALCIFEROL (VIT D3) 1000 UNIT TAB PO SCH (08:09)
[2017-12-27] MEDS: SODIUM CHLORIDE 0.9% FLUSH 10 ML FLUSH IV FLUSH SCH ×2 (08:10→20:57)
[2017-12-27] MEDS: PANTOPRAZOLE SOD 40 MG DELAYED RELEASE TAB PO SCH (08:10)
[2017-12-27] MEDS: amLODIPine BESYLATE 5 MG TAB PO SCH (08:10)
[2017-12-27] MEDS: BUDESONIDE-FORMOTEROL 160/4.5 MCG INHALER INH SCH ×2 (08:10→20:56)
--- NOTE | 2017-12-27 09:49 | MB ---
cc: Amrit Hanley MD DATE OF CONSULT: 12/26/2017 HISTORY OF PRESENT ILLNESS: Mr. Aguilera is a 57-year-old black male with a history of end-stage renal disease on hemodialysis. He presented with altered mental status. He was in DKA with significantly elevated glucose of 706. His potassium was 6.9. He has not had any angina or episodes of dyspnea. His troponin was slightly elevated. PAST MEDICAL HISTORY: Positive for endstage renal disease on hemodialysis, hypertension, depression, peripheral neuropathy, peripheral arterial disease, diabetes mellitus, osteomyelitis, COPD, smoking, history of left upper extremity fistula, left 2nd toe amputation, left posterior tibial artery angioplasty, I and D of left foot, left foot transmetatarsal amputation, right IJ Ta. MEDICATIONS: Include Symbicort, Percocet, lisinopril, Novolog insulin, detemir, gabapentin, duloxetine, Diflucan, Cipro, Baclofen, Norvasc. ALLERGIES: NONE. SOCIAL HISTORY: Patient has history of smoking. He does not drink alcohol. FAMILY HISTORY: Positive for heart disease. REVIEW OF SYSTEMS: Otherwise negative. PHYSICAL EXAMINATION: VITAL SIGNS: Blood pressure 135/63, pulse 96 and regular. HEENT: Negative. LUNGS: Two plus carotid upstrokes. Lungs clear. HEART: Regular with no murmur, gallop or rub. ABDOMEN: Soft. EXTREMITIES: Trace edema that is status post left transmetatarsal amputation, diminished pulses. NEUROLOGICAL: Grossly nonfocal. Patient is currently more alert and oriented, is only mildly confused. Neurologic exam is nonfocal. EKG: Was reviewed and showed normal sinus rhythm, anterior septal Q-waves. LABORATORY DATA: Hemoglobin 9.2. Potassium 6.8 and 4.4, creatinine 8.7, glucose 326. AST of 66, ALT of 40. Troponin 0.22, 0.62 and 0.75. DIAGNOSES: 1. Acute toxic metabolic encephalopathy. 2. End-stage renal disease on hemodialysis. 3. Mildly elevated troponin. 4. Chronic obstructive pulmonary disease (COPD). 5. Left foot osteomyelitis. 6. Anemia. 7. Diabetic ketoacidosis (DKA). 8. Diabetes mellitus. 9. History of smoking. DISPOSITION: Mr. Aguilera's mental status has been improving. His troponin is mildly elevated. We will obtain echocardiogram to evaluate his left ventricular function. He will be monitored in the intensive care unit. His troponin elevation is likely related to his end-stage renal disease. I will follow him for Cardiology during his hospitalization. He has not had any angina or heart failure symptoms. MD PAIGE Stephenson/KIRK/santhosh , 03:28 PM , 04:12 PM RAUDEL
--- NOTE | 2017-12-27 10:34 | HHI.IDPN ---
Subjective Subjective Remarks is a 57 y/o AAM PMH of ESRD on HD M/W/F, DM, PAD, PVD, HTN, COPD, tobacco abuse presented from [facility] with decreased mental status. CT brain was negative. He was in DKA with glucose 706 and anion gap 23. Potassium 6.9. Dr. Arnett discussed with Nephrology and arranged for hemodialysis and consulted [facility] for admission. Of note his PMHx is also significant for multiple feet surgeries and h/o angioplasty as below: Left second toe amputation L second toe amputation 07/11/17 L posterior tibial artery angioplasty 09/24/17 () I and D L foot 09/28/17 Left foot transmetatarsal amputation 09/26/17 (Dr. Judge) Patient was last seen by Infectious Disease in October 2017, it appears a HD cath was placed for Unasyn for IV access for antibiotics. Not sure if patient was on antibiotics prior to admission will check with . Patient had a Ta cath present on admission. Patient has grown E.faecalis in recent past. Patient also grew MRSA prior to that admission. It appears Unasyn IV was ordered until Nov 07, 2017. From review of notes it appears at [facility] patient was on Cipro and Diflucan. Upon arrival in the emergency department patient's temperature was 98.9, heart rate 63, blood pressure 115/46 was on room air. Labs were grossly abnormal with WBC 12.2, H&H 9.2, 31.8, platelets 198, creatinine of 14.59, BUNs of 150, glucose of 708. [employer] saw the patient and patient was admitted to the ICU and was on an insulin drip overnight. At the time of my evaluation patient is in the ICU, not on any pressors, currently off insulin drip due to reported blood sugar of 100 concern for hypoglycemia. At the time of my evaluation patient was confused, not oriented to time place and person unsure this is a residual effect of the hypoglycemia or this is sepsis related. ID consulted for evaluation and Mment of Sepsis, Osteomyelitis. Overnight events reviewed No fevers No rash No diarrhea Much more awake and responsive. Denies headache and neck pain. nadir Irvin: he saw patient at [facility] last week. Unsure if patient had angioplasty but remembers possible angiogram. Recommends Vascular consult based on those records. Antibiotics Zosyn IV Lines Line sites with no e.o infection Past Medical History reviewed Allergies: Coded Allergies: No Known Allergies (Verified Allergy, Unknown, 10/16/17) Objective . Vital Signs Date Time Temp Pulse Resp B/P (MAP) Pulse Ox O2 Delivery O2 Flow Rate FiO2 12/27/17 06:00 83 12/27/17 04:00 83 12/27/17 04:00 99.0 83 10 126/60 (82) 100 12/27/17 02:00 83 12/27/17 00:00 99.0 87 10 132/55 (80) 100 12/27/17 00:00 87 12/26/17 22:26 95 Nasal Cannula 4.00 12/26/17 22:00 85 12/26/17 20:00 99.2 84 9 126/61 (82) 98 12/26/17 20:00 84 12/26/17 18:00 88 12/26/17 16:00 98.8 81 9 118/57 (77) 100 12/26/17 16:00 80 12/26/17 15:00 82 12/26/17 14:00 82 12/26/17 12:00 98.6 81 10 135/63 (87) 100 12/26/17 12:00 96 . Laboratory Tests Test 12/25/17 20:35 White Blood Count 12.2 TH/MM3 Red Blood Count 3.94 MIL/MM3 Hemoglobin 9.2 GM/DL Bedside Hemoglobin 10.2 G/DL Hematocrit 31.8 % Bedside Hematocrit 30.0 % Mean Corpuscular Volume 80.7 FL Mean Corpuscular Hemoglobin 23.5 PG Mean Corpuscular Hemoglobin Concent 29.1 % Red Cell Distribution Width 21.5 % Platelet Count 198 TH/MM3 Mean Platelet Volume 8.9 FL Neutrophils (%) (Auto) 87.5 % Lymphocytes (%) (Auto) 4.7 % Monocytes (%) (Auto) 7.6 % Eosinophils (%) (Auto) 0.0 % Basophils (%) (Auto) 0.2 % Neutrophils # (Auto) 10.7 TH/MM3 Lymphocytes # (Auto) 0.6 TH/MM3 Monocytes # (Auto) 0.9 TH/MM3 Eosinophils # (Auto) 0.0 TH/MM3 Basophils # (Auto) 0.0 TH/MM3 CBC Comment DIFF FINAL Differential Comment Laboratory Tests Test 12/25/17 20:35 12/26/17 04:45 12/26/17 11:31 12/26/17 15:35 Bedside Sodium 125 MMOL/L Blood Urea Nitrogen 150 MG/DL 64 MG/DL 68 MG/DL 71 MG/DL Creatinine 14.59 MG/DL 7.80 MG/DL 8.65 MG/DL 9.04 MG/DL Random Glucose 706 MG/DL 100 MG/DL 326 MG/DL 328 MG/DL Total Protein 6.6 GM/DL Albumin 2.3 GM/DL Calcium Level 8.4 MG/DL 7.9 MG/DL 7.6 MG/DL 7.6 MG/DL Phosphorus Level 13.0 MG/DL 6.9 MG/DL 9.0 MG/DL 8.4 MG/DL Magnesium Level 2.3 MG/DL 2.0 MG/DL 2.1 MG/DL 2.0 MG/DL Alkaline Phosphatase 222 U/L Aspartate Amino Transf (AST/SGOT) 66 U/L Alanine Aminotransferase (ALT/SGPT) 40 U/L Total Bilirubin 0.5 MG/DL Sodium Level 127 MEQ/L 140 MEQ/L 136 MEQ/L 137 MEQ/L Potassium Level 6.9 MEQ/L 3.5 MEQ/L 4.4 MEQ/L 4.4 MEQ/L Chloride Level 92 MEQ/L 99 MEQ/L 96 MEQ/L 96 MEQ/L Carbon Dioxide Level 11.8 MEQ/L 27.7 MEQ/L 24.8 MEQ/L 23.5 MEQ/L Bedside Potassium 6.8 MMOL/L Bedside Chloride 98 MMOL/L Anion Gap 23 MEQ/L 13 MEQ/L 15 MEQ/L 18 MEQ/L Bedside Blood Urea Nitrogen GREATER THAN 140 MG/DL Bedside Creatinine 15.3 MG/DL Estimat Glomerular Filtration Rate 4 ML/MIN 9 ML/MIN 8 ML/MIN 7 ML/MIN Bedside Glucose 694 MG/DL Lactic Acid Level 2.4 mmol/L Troponin I 0.22 NG/ML 0.62 NG/ML 0.75 NG/ML Lipase 110 U/L Test 12/27/17 00:20 12/27/17 02:50 Blood Urea Nitrogen 75 MG/DL 76 MG/DL Creatinine 10.15 MG/DL 10.15 MG/DL Random Glucose 348 MG/DL 231 MG/DL Total Protein 6.7 GM/DL 6.8 GM/DL Calcium Level 7.3 MG/DL 7.4 MG/DL Phosphorus Level 8.5 MG/DL 8.6 MG/DL Magnesium Level 2.1 MG/DL Sodium Level 138 MEQ/L 138 MEQ/L Potassium Level 4.6 MEQ/L 4.7 MEQ/L Chloride Level 96 MEQ/L 97 MEQ/L Carbon Dioxide Level 23.7 MEQ/L 25.7 MEQ/L Anion Gap 18 MEQ/L 15 MEQ/L Estimat Glomerular Filtration Rate 6 ML/MIN 6 ML/MIN Protein Corrected Calcium 7.5 MG/DL 7.6 MG/DL Albumin 2.3 GM/DL Alkaline Phosphatase 177 U/L Aspartate Amino Transf (AST/SGOT) 50 U/L Alanine Aminotransferase (ALT/SGPT) 39 U/L Total Bilirubin 0.4 MG/DL Microbiology Date/Time Source Procedure Growth Status 12/26/17 04:45 Blood Peripheral Aerobic Blood Culture Pending Received 12/26/17 04:45 Blood Peripheral Anaerobic Blood Culture Pending Received 12/26/17 03:50 Blood Peripheral Aerobic Blood Culture Pending Received 12/26/17 03:50 Blood Peripheral Anaerobic Blood Culture Pending Received Imaging Last Impressions Foot X-Ray 12/26/17 0000 Signed Impressions: Service Date/Time: Tuesday, December 26, 2017 07:29 - CONCLUSION: 1. Findings concerning for osteomyelitis involving the tuft of the first toe. Phani Vasquez MD Head CT 12/25/[id number] Signed Impressions: Service Date/Time: Monday, December 25, 2017 22:22 - CONCLUSION: No acute intracranial abnormality demonstrated. Eliu Ayala MD Chest X-Ray 12/25/172026 Signed Impressions: Service Date/Time: Monday, December 25, 2017 20:45 - CONCLUSION: No evidence of acute cardiopulmonary disease. Eliu Ayala MD Physical Exam GENERAL: This is a well-nourished, well-developed patient, in no apparent distress. SKIN: No rashes, ecchymoses or lesions. Cool and dry. HEAD: Atraumatic. Normocephalic. No temporal or scalp tenderness. EYES: Pupils equal round and reactive. Extraocular motions intact. No scleral icterus. No injection or drainage. ENT: Nose without bleeding, purulent drainage or septal hematoma. Throat without erythema, tonsillar hypertrophy or exudate. Uvula midline. Airway patent. NECK: Trachea midline. Supple, nontender, ? neck stiffness. CARDIOVASCULAR: HS audible. RESPIRATORY: Clear to auscultation. Breath sounds equal bilaterally. No wheezes , rales, or rhonchi. GASTROINTESTINAL: Abdomen soft, non-tender, nondistended. MUSCULOSKELETAL: Right great toe with ? amputation of tip with blackening of margins noted. Right forefoot amputation site with areas of dry blackening and few areas of wet blackening on edges. No discharge or foul smell noted. Warmth noted. Dorsalis pedis palpable. NEUROLOGICAL: Somnolent, arousable, confused, not oriented to time, place or person at time of my visit. Moves all 4 extremities. Psych cooperative IV line sites with no e.o infection. HD cath site with no e.o infection. Assessment & Plan Remarks Osteomyelitis L foot (L second toe amputation 07/11/17 L posterior tibial artery angioplasty 09/24/17 I and D L foot 09/28/17 Left foot transmetatarsal amputation 09/26/17 (Dr. Judge) Peripheral arterial disease s/p L posterior tibial artery angioplasty Dr. Ortiz Leukocytosis: reactive, infection. DKA, Diabetes mellitus with Neuropathy and Nephropathy. ESRD on hemodialysis Acute metabolic encephalopathy: DKA, sepsis, ? meningitis workup if AMS persists. Peripheral neuropathy COPD, Prior tobacco abuse HTN Recs: Continue Zosyn IV for now. DC Diflucan. Follow cultures Follow clinically. Follow vascular consult recs. nadir Candelaria: vascular consult. Informed about conversation with about recent admission and possible angioplasty at [facility]. Requesting medical records. nadir STONE I will be OOT from 12/28/2017 to 01/06/2018. Dr.A. Anguiano to follow patient as patient known to her. Noelle Navarro MD Dec 27, 2017 10:34
[2017-12-27 12:12] LABS: PHOSPHORUS 9.1 MG/DL (2.5-4.9)
[2017-12-27] MEDS: INSULIN DETEMIR 100 UNITS/ML VIAL SQ SCH ×2 (12:15→20:56)
--- NOTE | 2017-12-27 12:18 | HHI.CCPN ---
Subjective Remarks/Hospital Course 57 yo AAM with PMH of ESRD on HD M/W/F, DM, PAD, HTN, COPD, tobacco abuse presented from [facility] with decreased mental status. Patient is not able to provide history. CT brain was negative. He was in DKA with glucose 706 and anion gap 23. Potassium 6.9. Dr. Arnett discussed with Nephrology and arranged for hemodialysis and consulted [facility] for admission. SUBJ 12/27: Mentation has significantly improved, currently oriented to person and place did not know the date. Hypoglycemia has resolved in fact currently hyperglycemic blood sugar varying from 150-250. I will resume lower dose of Levemir 3 units every 12, start ADA and renal diet. Vascular surgery consulted for evaluation of leg leg vascular insufficiency/PVD Objective Vital Signs Date Time Temp Pulse Resp B/P (MAP) Pulse Ox O2 Delivery O2 Flow Rate FiO2 12/27/17 06:00 83 12/27/17 04:00 99.0 10 126/60 (82) 100 12/26/17 22:26 Nasal Cannula 4.00 Intake and Output 12/27/17 12/27/17 12/28/17 08:00 16:00 00:00 Intake Total 50 ml Output Total 0 ml Balance 50 ml Result Diagram: 12/25/17203412/27/17 0250 Objective Remarks GENERAL: male who is laying [facility] bed oriented to person and place SKIN: Warm and dry. HEAD: Atraumatic. Normocephalic. EYES: Pupils equal and round. No scleral icterus. No injection or drainage. ENT: No nasal bleeding or discharge. Mucous membranes pink and moist. NECK: Trachea midline. No JVD. CARDIOVASCULAR: Regular rate and rhythm. No murmurs rubs or gallops. RESPIRATORY: Breathing comfortably with no accessory muscle use. Clear to auscultation. Breath sounds equal bilaterally. GASTROINTESTINAL: Abdomen soft, non-tender, nondistended. Bowel sounds present. VASC: Ta catheter R chest, dressing in place. No tenderness/erythema/ drainage. LUE fistula accessed for HD MUSCULOSKELETAL: Wound on 1st digit right foot with necrotic eschar overlying, no drainage. L foot s/p transmetatarsal amputation. Sutures and brenda in place and the most distal aspect is ballotable, surrounding necrotic eschar. NEUROLOGICAL: Alert awake oriented to person and place. Moves all extremities follows commands nonfocal exam A/P Assessment and Plan NEURO: Acute toxic metabolic encephalopathy-improving Peripheral neuropathy Depression Holding chronic sedative medications including baclofen 10 mg as needed for hiccups, gabapentin 200 tid, Percocet 5/325 Morphine prn for pain, resume home hydrocodone Duloxetine 30 mg by mouth daily CT brain -negative RESP: COPD Prior tobacco abuse Continue Symbicort 160/4.5 2 puffs inhaled twice a day Albuterol every 2 hours as needed. CV: HTN Peripheral arterial disease s/p L posterior tibial artery angioplasty Dr. Ortiz Continue Norvasc 5 mill grams by mouth daily, lisinopril 10 mg by mouth daily GI: NPO . Start diabetic renal diet FEN/RENAL: ESRD on hemodialysis Hyperkalemia Received calcium gluconate 2 g IV, insulin 10 units IV, bicarb 50 Meq IV, kayexalate 15 po daily, albuterol in the ED. Correcting acidosis (DKA) as per below s/p HD per nephrology Vit D3 1000 units po daily ID: Leukocytosis Osteomyelitis L foot L second toe amputation 07/11/17 L posterior tibial artery angioplasty 09/24/17 I and D L foot 09/28/17 Left foot transmetatarsal amputation 09/26/17 (Dr. Judge) Poor wound healing and dry gangrene as well as probable wet gangrene noted ID and podiatry following Appears will need further debridement which may include BKA. Vascular surgery consulted. half-way notes indicate: Cipro 500 mg by mouth every 12 hours started 12/13 for osteomyelitis. Diflucan 200 mg by mouth daily started 12/18 for "foot infection" f/u blood cultures. Continue Zosyn 2.25 IV q8 hours. DC Diflucan per ID HEME: Chronic anemia Monitor CBC ENDO: DKA-resolved Hypoglycemia-resolved Diabetes mellitus Off D10. Continue sliding scale insulin Start detemir at the lower dose 3 units every 12 after starting ADA renal diet half-way regimen is: Detemir 10 units subcutaneous twice a day NovoLog sliding scale PROPH: Heparin 5000 units subcutaneous every 12 hours for DVT prophylaxis. Protonix 40 mg by mouth daily ACCESS: Jose Ta Cathter 10/04/17 Dr. Barroso Level 2 Consult [facility] to assume care in am, Transfer to [facility] with Tele Sarath Nowak MD Dec 27, 2017 12:18
--- NOTE | 2017-12-27 13:16 | HHI.NPPN ---
Subjective General Problems: Anemia, Diabetes Renal Failure: Chronic Interval History He is more alert today. To be downgraded to medical floor. Vital signs stable. No plans for procedures today. Objective Data Data Vital Signs Date Time Temp Pulse Resp B/P (MAP) Pulse Ox O2 Delivery O2 Flow Rate FiO2 12/27/17 06:00 83 12/27/17 04:00 83 12/27/17 04:00 99.0 83 10 126/60 (82) 100 12/27/17 02:00 83 12/27/17 00:00 99.0 87 10 132/55 (80) 100 12/27/17 00:00 87 12/26/17 22:26 95 Nasal Cannula 4.00 12/26/17 22:00 85 12/26/17 20:00 99.2 84 9 126/61 (82) 98 12/26/17 20:00 84 12/26/17 18:00 88 12/26/17 16:00 98.8 81 9 118/57 (77) 100 12/26/17 16:00 80 12/26/17 15:00 82 12/26/17 14:00 82 -: 12/25/17203412/27/17 0250 Imaging Last 72 hours Impressions Foot X-Ray 12/26/17 0000 Signed Impressions: Service Date/Time: Tuesday, December 26, 2017 07:29 - CONCLUSION: 1. Findings concerning for osteomyelitis involving the tuft of the first toe. Phani Vasquez MD Foot X-Ray 12/26/17 0000 Signed Impressions: Service Date/Time: Tuesday, December 26, 2017 07:24 - CONCLUSION: 1. Interval more proximal transmetatarsal amputation with soft tissue swelling and erosive change most prominently in the base of the fifth metatarsal concerning for osteomyelitis. Phani Vasquez MD Head CT 12/25/172124 Signed Impressions: Service Date/Time: Monday, December 25, 2017 22:22 - CONCLUSION: No acute intracranial abnormality demonstrated. Eliu Ayala MD Chest X-Ray 12/25/172026 Signed Impressions: Service Date/Time: Monday, December 25, 2017 20:45 - CONCLUSION: No evidence of acute cardiopulmonary disease. Eliu Ayala MD Tubes & Lines Comment Ta right chest Physical Exam General Appearance: Well Developed, Well Nourished, Comfortable Eyes Eye Exam: Pupils Equal Neck Neck Exam: Neck Supple Pulmonary Resp Exam: Clear Bilaterally, Breath Sounds Equal Cardiology CV Exam: Regular, Normal Sinus Rhythm Gastrointestinal/Abdomen GI Exam: Soft, Non-Tender, Bowel Sounds Present Musculoskeletal MS Exam: Joints Intact, Good Strength MS Remarks left midfoot amputation, no skin flap bone visible, dark edges of gangrene, eschar; brenda intact Integumentary Skin Exam: Warm, Dry Skin Remarks see above right great toe with nail changes. Neurologic Neuro Exam: Alert, Awake, Moving All Extremities Psychiatric Psych Exam: Appropriate Responses Assessment/Plan Discussed Condition With: Patient Assessment Summary: Anemia of CKD, Hypertension, Diabetes Mellitus, End Stage Renal Disease Problem List: (1) ESRD (end stage renal disease) ICD Codes: N18.6 - End-stage renal disease Status: Resolved Plan: HD MWF, due tomorrow Avoid IVF administration, gadolinium in contraindicated Using AVF left arm for HD High protein diet ordered with protein supplements. Repeat labs intermittently (2) Osteomyelitis ICD Codes: M86.9 - Osteomyelitis, unspecified Status: Acute Plan: ID and vascular following with podiatry On Zosyn, off Diflucan Possible L BKA if no improvement. Cultures are negative at this time. Continue to monitor. Plan for angiogram Sunday per vascular. Unclear if we can remove the Ta; if antibiotics will be required at discharge consider leaving it in. ID assistance on this matter is appreciated. (3) PAD (peripheral artery disease) ICD Codes: I73.9 - Peripheral vascular disease, unspecified Status: Chronic Plan: He had stent placed to right leg the end of last week, had arteriogram at the same time. See above Needs wound care to left foot/amputation site. (4) DKA (diabetic ketoacidoses) ICD Codes: E13.10 - Other specified diabetes mellitus with ketoacidosis without coma Status: Acute Plan: Resolved, on insulin therapy SQ Diet advanced A1c drawn today and is pending (5) Bone metabolism disorder ICD Codes: E88.9 - Metabolic disorder, unspecified; M90.80 - Osteopathy in diseases classified elsewhere, unspecified site Status: Acute Plan: Phosphorus is very high, increase Renvela to 2400 mg with meals (6) Anemia ICD Codes: D64.9 - Anemia, unspecified Plan: Epogen with dialysis (7) HTN (hypertension) ICD Codes: I10 - Essential (primary) hypertension Status: Chronic Plan: Continue home medications, titrate as needed Permanent Comment: Last Edited By: Jasmyne Bee on Jul 11, 2017 15:31 (8) Hyperkalemia ICD Codes: E87.5 - Hyperkalemia Status: Acute Plan: Secondary to DKA Improved, follow labs Problem Qualifiers (1) Osteomyelitis: Qualified Codes: M86.8X7 - Other osteomyelitis, ankle and foot (2) DKA (diabetic ketoacidoses): Qualified Codes: E10.11 - Type 1 diabetes mellitus with ketoacidosis with coma Jasmyne Bee [facility] Dec 27, 2017 13:16
--- NOTE | 2017-12-27 14:52 | PD.VS.CON ---
History of Present Illness Chief Complaint: B LE tissue loss Consult Requested by: Dr. Mathur, podiatry History of Present Illness 57 yo male well known to me with ESRD and PAD. He underwent L PT PASSENGER SCREENER several months ago by me and then TMA after progressive tissue loss. Now has a nonhealing L TMA and tissue loss on the RIGHT foot. Reportedly, was in another facility a few weeks ago and had R LE interventions. The patient was admitted to MICU for hyperglycemia. Hgb A1c pending this admission, last was 11 in September. Past/Family/Social History Past Medical History PAD ESRD HTN depression DM COPD tobacco abuse Past Surgical History L TMA (Dr. Judge 09/26/17) AVF PASSENGER SCREENER L LE by me 09/24/17 Social History + tobacco from [place] Family History NC Home Medications Active Scripts Hydrocodone/Acetaminophen (Hydrocodone-Acetamin 7.5-325) 7.5 Mg-325 Mg Tablet, 1 TAB PO Q4H Y for pain, #30 Prov:Albin Guerra MD R3 10/18/17 Insulin Detemir Inj (Levemir Inj) 1,000 unit/ 10 ML Vial, 10 UNITS SQ Q12HR, #1 VIAL Do not mix with any other Insulin. Prov:Albin Guerra MD R3 10/18/17 Gabapentin (Gabapentin) 100 Mg Cap, 200 MG PO TID, #180 CAP Prov:Albin Guerra MD R3 10/18/17 Amlodipine (Norvasc) 5 Mg Tab, 5 MG PO DAILY, #30 TAB Prov:Albin Guerra MD R3 10/18/17 Levofloxacin (Levaquin) 500 Mg Tablet, 500 MG PO Q48H, #3 TAB Prov:Albin Guerra MD R3 10/18/17 Ampicillin-Sulbactam Inj (Unasyn Inj) 3 Gm Vial, 3 GM IV DAILY for Infection, # 32 BAG 0 Refills Prov:Albin Guerra MD R3 10/06/17 Insulin Aspart Inj (Novolog Inj) 1,000 Unit/10 Ml Vial, 1-9 UNITS SQ ACHS for Blood Sugar Management, #10 ML 0 Refills sugars less than 70,(0)units; sugars 150-199,(1) unit; sugars 200-249,(3) units; sugars 250-299,(5) units; sugars 300-349,(7) units; sugars greater than 349,(9) units Prov:Albin Guerra MD R3 10/06/17 Sevelamer Carbonate (Renvela) 800 Mg Tab, 1600 MG PO TIDAC, #180 TAB Prov:Albin Guerra MD R3 10/06/17 Hydrocodone-Acetaminophen (Hydrocodone-Acetaminophen) 5-325 mg Tab, 1-2 TAB PO Q4HR Y for PAIN GREATER THAN 5, #60 TAB Prov:Harley Soni MD, R3 07/13/17 Budesonide-Formoterol Inh (Symbicort Inh) 160-4.5 Mcg/Act Aero, 1 PUFF INH Q12HR , #1 INHALER 2 Refills Prov:Adair Hammonds MD R1 06/29/[address] (Duloxetine DR) 30 Mg Capdr, 30 MG PO DAILY, #30 CAP 0 Refills Prov:Adair Hammonds MD R1 06/29/17 Atorvastatin (Atorvastatin) 40 Mg Tab, 40 MG PO HS for Cholesterol Management, # 30 TAB 0 Refills Prov:Adair Hammonds MD R1 06/29/17 Reported Medications Baclofen (Baclofen) 10 Mg Tab, 10 MG PO DAILY Y for hiccups, #30 TAB 0 Refills 10/04/17 Cholecalciferol (Vitamin D3) 1,000 Unit Cap, 1000 UNITS PO DAILY for Nutritional Supplement, #1 BOTTLE 0 Refills 06/27/17 B-Complex W/ C-Zn & Folic Acid (Dialyvite 800/Zinc 15) 1 Tab, 1 TAB DAILY 04/26/17 Coded Allergies: No Known Allergies (Verified Allergy, Unknown, 10/16/17) Review of Systems Constitutional: COMPLAINS OF: Fatigue, Weight loss Cardiovascular: DENIES: Chest pain Physical Exam Vitals/I&O Date Time Temp Pulse Resp B/P (MAP) Pulse Ox O2 Delivery O2 Flow Rate FiO2 12/27/17 12:00 98.9 83 14 111/58 (75) 97 12/27/17 12:00 83 12/27/17 10:00 85 12/27/17 08:00 84 12/27/17 08:00 99.0 84 13 110/59 (76) 99 12/27/17 06:00 83 12/27/17 04:00 83 12/27/17 04:00 99.0 83 10 126/60 (82) 100 12/27/17 02:00 83 12/27/17 00:00 99.0 87 10 132/55 (80) 100 12/27/17 00:00 87 12/26/17 22:26 95 Nasal Cannula 4.00 12/26/17 22:00 85 12/26/17 20:00 99.2 84 9 126/61 (82) 98 12/26/17 20:00 84 12/26/17 18:00 88 12/26/17 16:00 98.8 81 9 118/57 (77) 100 12/26/17 16:00 80 12/26/17 15:00 82 12/27/17 12/27/17 12/27/17 07:00 15:00 23:00 Intake Total 50 ml 50 ml Output Total 0 ml Balance 50 ml 50 ml Neuro: slightly somnolent but alert and conversant HEENT: NC/AT Neck: no JVD Heart: reg rate, TTE ongoing Lungs: clear Vascular: palpable L PT nonpalpable R DP/PT Extremities: L TMA ischemia R great toe ischemic Laboratory Tests Test 12/26/17 15:35 12/27/17 00:20 12/27/17 02:50 12/27/17 11:22 Blood Urea Nitrogen 71 75 76 Creatinine 9.04 10.15 10.15 Random Glucose 328 348 231 Calcium Level 7.6 7.3 7.4 Phosphorus Level 8.4 8.5 8.6 9.1 Magnesium Level 2.0 2.1 Sodium Level 137 138 138 Potassium Level 4.4 4.6 4.7 Chloride Level 96 96 97 Carbon Dioxide Level 23.5 23.7 25.7 Anion Gap 18 18 15 Estimat Glomerular Filtration Rate 7 6 6 Total Protein 6.7 6.8 Protein Corrected Calcium 7.5 7.6 Albumin 2.3 Alkaline Phosphatase 177 Aspartate Amino Transf (AST/SGOT) 50 Alanine Aminotransferase (ALT/SGPT) 39 Total Bilirubin 0.4 Date/Time Source Procedure Growth Status 12/26/17 04:45 Blood Peripheral Aerobic Blood Culture - Preliminary NO GROWTH IN 1 DAY Resulted 12/26/17 04:45 Blood Peripheral Anaerobic Blood Culture - Preliminary NO GROWTH IN 1 DAY Resulted Last 48 hours Impressions Foot X-Ray 12/26/17 0000 Signed Impressions: Service Date/Time: Tuesday, December 26, 2017 07:29 - CONCLUSION: 1. Findings concerning for osteomyelitis involving the tuft of the first toe. Phani Vasquez MD Foot X-Ray 12/26/17 0000 Signed Impressions: Service Date/Time: Tuesday, December 26, 2017 07:24 - CONCLUSION: 1. Interval more proximal transmetatarsal amputation with soft tissue swelling and erosive change most prominently in the base of the fifth metatarsal concerning for osteomyelitis. Phani Vasquez MD Head CT [id number]/25/172124 Signed Impressions: Service Date/Time: Monday, December 25, 2017 22:22 - CONCLUSION: No acute intracranial abnormality demonstrated. Eliu Ayala MD Chest X-Ray 12/25/172026 Signed Impressions: Service Date/Time: Monday, December 25, 2017 20:45 - CONCLUSION: No evidence of acute cardiopulmonary disease. Eliu Ayala MD Assessment and Plan Plan Likely B Osteo (L TMA and R great toe). Palpable L PT and nonpalpable R pedal pulses 1. ABIs - ordered 2. Antibiotics 3. Plan for revsacularization on Sunday ( B LE angiogram) a. May benefit from targeted angiosomal L LE revasc given palp PT b. R LE toe amputation should await revascularization/toe pressures Will follow. Randy Ortiz MD FACS [employer] electronics assembler and tester [facility] - Heart and Vascular Surgery at [facility] [phone] Randy Ortiz MD Dec 27, 2017 14:52
[2017-12-27 16:40] LABS: HEMOGLOBIN A1C 10.7 % (4.3-6.0)
--- NOTE | 2017-12-27 17:12 | ECHRPT ---
Indication: Elevated troponin CONCLUSIONS The left ventricular systolic function is [id number] reduced with an estimated ejection fra ction in the range of 35-40%. Wall thickness is measured at the upper limits of normal. Normal left ventricular size. Mild aortic valve regurgitation. There is moderate tricuspid regurgitation. The estimated pulmonary arterial pressure is 43.2 mmHg. BP: 135 / 63 HR: 96 Rhythm: Sinus MEASUREMENTS (Male / Female) Normal Values Technical Quality:Good 2D ECHO LV Diastolic Diameter PLAX 5.4 cm 4.2 - 5.9 / 3.9 - 5.3 cm LV Systolic Diameter PLAX 4.6 cm IVS Diastolic Thickness 1.1 cm 0.6 - 1.0 / 0.6 - 0.9 cm LVPW Diastolic Thickness 1.1 cm 0.6 - 1.0 / 0.6 - 0.9 cm LV Relative Wall Thickness 0.4 RV Internal Dim ED PLAX 3.8 cm LVOT Diameter 2.3 cm LA Systolic Diameter LX 4.5 cm 3.0 - 4.0 / 2.7 - 3.8 cm M-MODE Aortic Root Diameter MM 3.1 cm LA Systolic Diameter MM 4.0 cm LA Ao Ratio MM 1.3 AV Cusp Separation MM 1.6 cm DOPPLER AV Peak Velocity 204.0 cm/s AV Peak Gradient 16.6 mmHg AV Mean Gradient 10.0 mmHg AV Velocity Time Integral 35.7 cm AI Peak Velocity 353.7 cm/s AI Peak Gradient 50.0 mmHg AI Pressure Half Time 347.0 ms LVOT Peak Velocity 124.0 cm/s LVOT Peak Gradient 6.2 mmHg LVOT Velocity Time Integral 18.7 cm LVOT Cardiac Index 4189.3 cm/minm AV Area Cont Eq vti 2.2 cm AV Area Cont Eq pk 2.5 cm MV Area PHT 3.9 cm Mitral E Point Velocity 108.0 cm/s Mitral A Point Velocity 42.0 cm/s Mitral E to A Ratio 2.6 LV E' Lateral Velocity 7.5 cm/s Mitral E to LV E' Lateral Ratio 14.4 LV E' Septal Velocity 5.4 cm/s Mitral E to LV E' Septal Ratio 20.0 TR Peak Velocity 288.0 cm/s TR Peak Gradient 33.2 mmHg Right Atrial Pressure 10.0 mmHg Pulmonary Artery Systolic Pressu 43.2 mmHg Right Ventricular Systolic Press 43.2 mmHg FINDINGS LEFT VENTRICLE The left ventricular systolic function is ydnfimwg-[id number] reduced with an estimated ejection fra ction in the range of 35-40%. Wall thickness is measured at the upper limits of normal. Normal left ventricular size. RIGHT VENTRICLE Normal right ventricular size and systolic function. LEFT ATRIUM The left atrial size is normal. RIGHT ATRIUM The right atrial size is normal. ATRIAL SEPTUM Normal atrial septal thickness without atrial level shunting by limited color doppler interrogation. AORTA The aortic root and proximal ascending aorta are normal in size on limited imaging. MITRAL VALVE Structurally normal mitral valve. No mitral valve stenosis or regurgitation. AORTIC VALVE Mild aortic valve regurgitation. TRICUSPID VALVE There is moderate tricuspid regurgitation. The estimated pulmonary arterial pressure is 43.2 mmHg. PULMONARY VALVE No pulmonary valve regurgitation or stenosis. VESSELS The inferior vena cava is normal in size. PERICARDIUM No pericardial effusion. Jonnie Montoya MD, FACC (Electronically Signed) Final Date:27 December 2017 17:11
--- NOTE | 2017-12-27 19:40 | PD.CARD.PN ---
Subjective Subjective Remarks No angina, mild SOB, mild confusion Objective Medications Current Medications Medications (Trade) Dose Ordered Sig/April Route Start Time Stop Time Status Last Admin (NS Flush) 2 ml UNSCH PRN IV FLUSH 12/26/17 01:45 (NS Flush) 2 ml BID IV FLUSH 12/26/17 09:00 12/27/17 08:10 (Protonix) 40 mg DAILY PO 12/26/17 09:00 12/27/17 08:10 (Zofran Inj) 4 mg Q6H PRN IV PUSH 12/26/17 01:45 Miscellaneous Information 1 Q361D XX 12/26/17 01:45 12/26/17 01:45 (Chlorhexidine 2% Cloth) 3 pack Taper DAILY@04 TOP 12/26/17 04:00 12/22/18 03:59 12/27/17 03:34 (Chlorhexidine 2% Cloth) 3 pack UNSCH PRN TOP 12/26/17 01:45 ([place]-Colace) 1 tab BID PO 12/26/17 09:00 12/26/17 10:08 (Milk Of Magnesia Liq) 30 ml Q12H PRN PO 12/26/17 01:45 (Senokot) 17.2 mg Q12H PRN PO 12/26/17 01:45 (Dulcolax Supp) 10 mg DAILY PRN RECTAL 12/26/17 01:45 (Lactulose Liq) 30 ml DAILY PRN PO 12/26/17 01:45 (Symbicort 160-4.5 Mcg Inh) 1 puff Q12HR INH 12/26/17 09:00 12/27/17 08:10 (Vitamin D3) 1,000 units DAILY PO 12/26/17 09:00 12/27/17 08:09 (Norvasc) 5 mg DAILY PO 12/26/17 09:00 12/27/17 08:10 (Cymbalta Dr) 30 mg DAILY PO 12/26/17 09:00 12/27/17 08:09 (Albuterol Neb) 2.5 mg Q2HR NEB PRN NEB 12/26/17 07:15 (Heparin Inj) 5,000 units Q12HR SQ 12/26/17 09:00 12/27/17 08:09 Piperacillin Sod/ Tazobactam Sod 50 ml @ 100 mls/hr Q8H IV 12/26/17 12:00 12/27/17 12:57 (D50w (Vial) Inj) 50 ml UNSCH PRN IV PUSH 12/26/17 13:00 (Glucagon Inj) 1 mg UNSCH PRN OTHER 12/26/17 13:00 (NovoLOG SUPPLEMENTAL SCALE) 1 Q4HR SQ 12/26/17 12:47 12/27/17 16:57 Sodium Chloride 1,000 ml @ 0 mls/hr Q0M PRN OTHER 12/26/17 13:45 (Heparin Inj) 8,000 units UNSCH PRN IV FLUSH 12/26/17 13:45 Sodium Chloride 1,000 ml @ 200 mls/hr Q5H PRN IV 12/26/17 13:45 Sodium Chloride 1,000 ml @ 0 mls/hr Q0M PRN OTHER 12/26/17 13:45 (Mannitol Inj) 12.5 gm UNSCH PRN IV 12/26/17 13:45 Albumin Human 100 ml @ 60 mls/hr UNSCH PRN IV 12/26/17 13:45 (NS Flush) 5 ml UNSCH PRN IV FLUSH 12/26/17 13:45 (Heparin Inj) UNSCH PRN .XX 12/26/17 13:45 (Gentamicin Inj) 20 mg UNSCH PRN OTHER 12/26/17 13:45 (Zofran Inj) 4 mg UNSCH PRN IV PUSH 12/26/17 13:45 (Tylenol) 650 mg UNSCH PRN PO 12/26/17 13:45 (Benadryl) 25 mg UNSCH PRN PO 12/26/17 13:45 (Nitrostat Sl) 0.4 mg UNSCH PRN SL 12/26/17 13:45 (Catapres) 0.1 mg UNSCH PRN PO 12/26/17 13:45 (Epogen Inj) 10,000 units UNSCH PRN IV PUSH 12/26/17 13:45 (Gelfoam 12 Mm/7 Mm Top) 1 foam UNSCH PRN TOP 12/26/17 13:45 (Aspirin Chew) 81 mg DAILY CHEW 12/26/17 15:00 12/27/17 08:09 (Morphine Inj) 2 mg Q3H PRN IV 12/26/17 17:15 12/26/17 22:21 (Levemir Inj) 3 units Q12HR SQ 12/27/17 12:15 12/27/17 12:15 ([place] 7.5-325 Mg) 1 tab Q4H PRN PO 12/27/17 12:15 (Renvela) 2,400 mg TIDAC PO 12/27/17 17:00 12/27/17 16:59 Vital Signs / I&O Vital Signs Date Time Temp Pulse Resp B/P (MAP) Pulse Ox O2 Delivery O2 Flow Rate FiO2 12/27/17 18:00 87 12/27/17 16:00 86 12/27/17 16:00 99.1 86 15 125/63 (83) 93 12/27/17 14:00 86 12/27/17 12:00 98.9 83 14 111/58 (75) 97 12/27/17 12:00 83 12/27/17 10:00 85 12/27/17 08:00 84 12/27/17 08:00 99.0 84 13 110/59 (76) 99 12/27/17 06:00 83 12/27/17 04:00 83 12/27/17 04:00 99.0 83 10 126/60 (82) 100 12/27/17 02:00 83 12/27/17 00:00 99.0 87 10 132/55 (80) 100 12/27/17 00:00 87 12/26/17 22:26 95 Nasal Cannula 4.00 12/26/17 22:00 85 12/26/17 20:00 99.2 84 9 126/61 (82) 98 12/26/17 20:00 84 I/O 12/26/17 12/26/17 12/26/17 12/27/17 12/27/17 12/27/17 06:59 14:59 22:59 06:59 14:59 22:59 Intake Total 550 ml 100 ml 50 ml 50 ml 60 ml Output Total 2000 ml 0 ml 0 ml 0 ml Balance -1450 ml 100 ml 50 ml 50 ml 60 ml Intake Oral 0 ml 0 ml 0 ml 60 ml IV Total 550 ml 100 ml 50 ml 50 ml Output Urine Total 0 ml 0 ml 0 ml 0 ml Hemodialysis 2000 ml # Bowel Movements 1 0 0 Physical Exam GENERAL: In NAD. SKIN: Warm and dry. HEAD: Normocephalic. EYES: No scleral icterus. No injection or drainage. NECK: Supple, trachea midline. No JVD or lymphadenopathy. CARDIOVASCULAR: Regular rate and rhythm without murmurs, gallops, or rubs. RESPIRATORY: Breath sounds equal bilaterally. No accessory muscle use. GASTROINTESTINAL: Abdomen soft, non-tender, nondistended. MUSCULOSKELETAL: No cyanosis, mild edema. S/p L foot TMT amputation Laboratory Laboratory Tests Test 12/27/17 00:20 12/27/17 02:50 12/27/17 11:22 Blood Urea Nitrogen 75 MG/DL 76 MG/DL Creatinine 10.15 MG/DL 10.15 MG/DL Random Glucose 348 MG/DL 231 MG/DL Total Protein 6.7 GM/DL 6.8 GM/DL Calcium Level 7.3 MG/DL 7.4 MG/DL Phosphorus Level 8.5 MG/DL 8.6 MG/DL 9.1 MG/DL Magnesium Level 2.1 MG/DL Sodium Level 138 MEQ/L 138 MEQ/L Potassium Level 4.6 MEQ/L 4.7 MEQ/L Chloride Level 96 MEQ/L 97 MEQ/L Carbon Dioxide Level 23.7 MEQ/L 25.7 MEQ/L Anion Gap 18 MEQ/L 15 MEQ/L Estimat Glomerular Filtration Rate 6 ML/MIN 6 ML/MIN Protein Corrected Calcium 7.5 MG/DL 7.6 MG/DL Albumin 2.3 GM/DL Alkaline Phosphatase 177 U/L Aspartate Amino Transf (AST/SGOT) 50 U/L Alanine Aminotransferase (ALT/SGPT) 39 U/L Total Bilirubin 0.4 MG/DL Hemoglobin A1c 10.7 % Assessment and Plan Problem List: (1) Elevated troponin ICD Codes: R74.8 - Abnormal levels of other serum enzymes (2) Cardiomyopathy ICD Codes: I42.9 - Cardiomyopathy, unspecified (3) Altered mental status ICD Codes: R41.82 - Altered mental status, unspecified (4) ESRD on hemodialysis ICD Codes: N18.6 - End stage renal disease; Z99.2 - Dependence on renal dialysis Status: Chronic (5) COPD (chronic obstructive pulmonary disease) ICD Codes: J44.9 - Chronic obstructive pulmonary disease, unspecified Status: Chronic (6) DKA (diabetic ketoacidoses) ICD Codes: E13.10 - Other specified diabetes mellitus with ketoacidosis without coma Status: Acute (7) DM (diabetes mellitus) ICD Codes: E11.9 - Type 2 diabetes mellitus without complications Status: Chronic (8) HTN (hypertension) ICD Codes: I10 - Essential (primary) hypertension Status: Chronic Permanent Comment: Last Edited By: Jasmyne Bee on Jul 11, 2017 15:31 (9) Cellulitis of foot, left ICD Codes: L03.116 - Cellulitis of left lower limb Status: Acute (10) Osteomyelitis ICD Codes: M86.9 - Osteomyelitis, unspecified Status: Acute Assessment and Plan Troponin slightly elevated, likely secondary to ESRD. Echo with moderate LV systolic dysfunction. MS improving. Continue tx for DKA. Continue abx for foot osteomyelitis, podiatric eval in progress. Continue monitoring. Problem Qualifiers (1) Altered mental status: Qualified Codes: R41.82 - Altered mental status, unspecified (2) DKA (diabetic ketoacidoses): Qualified Codes: E10.11 - Type 1 diabetes mellitus with ketoacidosis with coma (3) Osteomyelitis: Qualified Codes: M86.8X7 - Other osteomyelitis, ankle and foot QuadrAmrit haro MD Dec 27, 2017 19:40
[2017-12-28] VITALS (19 sets, daily range): BP systolic 110–154; BP diastolic 55–99; PULSE 90–97; RESP 11–20; TEMP 98.2–98.9; O2SAT 92–98
[2017-12-28] MEDS: LOW DOSE INSULIN NOVOLOG SUPPLEMENTAL SCALE SQ SCH ×6 (04:00→20:06)
[2017-12-28] MEDS: CHLORHEXIDINE GLUCONATE 2 % 1 PACK (2 CLOTHS) TOP SCH (04:00)
[2017-12-28] MEDS: PIPERACIL-TAZO 2.25 GM PREMIX 50 ML IV SCH ×3 (04:00→20:08)
[2017-12-28] MEDS: MORPHINE SULFATE 2 MG/ML INJ IV PRN (04:36)
[2017-12-28 05:58] LABS: AUTOMATED NEUTROPHIL # 11.3 TH/MM3 (1.8-7.7); BASOPHIL # 0.2 TH/MM3 (0-0.2); BASOPHIL % 1.6 % (0.0-2.0); EOSINOPHIL # 0.1 TH/MM3 (0-0.4); EOSINOPHIL % 0.4 % (0.0-4.0); HEMATOCRIT 32.7 % (39.0-51.0); HEMOGLOBIN 10.2 GM/DL (13.0-17.0); LYMPH % 5.2 % (9.0-44.0); LYMPHOCYTE # 0.7 TH/MM3 (1.0-4.8); MEAN CELL VOLUME 75.2 FL (80.0-100.0); MEAN CORPUSCULAR HEMOGLOBIN 23.6 PG (27.0-34.0); MEAN CORPUSCULAR HGB CONC 31.3 % (32.0-36.0); MEAN PLATELET VOLUME 9.1 FL (7.0-11.0); MONO % 8.6 % (0.0-8.0); MONOCYTE # 1.2 TH/MM3 (0-0.9); NEUT % 84.2 % (16.0-70.0); PLATELET COUNT 249 TH/MM3 (150-450); RED BLOOD COUNT 4.35 MIL/MM3 (4.50-5.90); RED CELL DISTRIBUTION WIDTH 20.3 % (11.6-17.2); WHITE BLOOD COUNT 13.4 TH/MM3 (4.0-11.0)
[2017-12-28] MEDS: INSULIN DETEMIR 100 UNITS/ML VIAL SQ SCH ×2 (09:00→20:08)
[2017-12-28] MEDS: SODIUM CHLORIDE 0.9% FLUSH 10 ML FLUSH IV FLUSH SCH ×2 (09:00→20:04)
[2017-12-28] MEDS: PANTOPRAZOLE SOD 40 MG DELAYED RELEASE TAB PO SCH (09:47)
[2017-12-28] MEDS: CHOLECALCIFEROL (VIT D3) 1000 UNIT TAB PO SCH (09:47)
[2017-12-28] MEDS: amLODIPine BESYLATE 5 MG TAB PO SCH (09:47)
[2017-12-28] MEDS: DULoxetine HCl DR 30 MG CAP PO SCH (09:47)
[2017-12-28] MEDS: SEVELAMER CARBONATE 800 MG TAB PO SCH ×3 (09:47→17:54)
[2017-12-28] MEDS: ASPIRIN 81 MG CHEW TAB CHEW SCH (09:47)
[2017-12-28] MEDS: DOCUSATE SODIUM 50 MG/SENNA 8.6 MG TAB PO SCH ×2 (09:47→20:04)
[2017-12-28] MEDS: HEPARIN SODIUM - SQ 10,000 UNITS/ML VIAL SQ SCH ×2 (09:53→20:04)
--- NOTE | 2017-12-28 09:54 | HHI.NPPN ---
Subjective General Problems: Anemia, Diabetes Renal Failure: Chronic, End Stage Renal Disease Interval History Resting, not in distress. Due for dialysis today. Tolerating diet, blood sugar is currently controlled. (Jasmyne Bee) Review of Systems Musculoskeletal MS: Pain/Stiffness (Jasmyne Bee) Skin Skin: Ulcers Skin Remarks right great toe, left MFA skin changes, non healing (Jasmyne Bee) Objective Data Data 12/28/17 12/29/17 19:00 07:00 Intake Total 240 ml Output Total 0 ml Balance 240 ml Intake Oral 240 ml Output Urine Total 0 ml # Bowel Movements 0 Vital Signs Date Time Temp Pulse Resp B/P (MAP) Pulse Ox O2 Delivery O2 Flow Rate FiO2 12/28/17 04:16 98.4 95 18 133/65 (87) 97 12/28/17 04:00 97 12/28/17 00:00 98.3 92 11 110/55 (73) 94 12/28/17 00:00 92 12/27/17 20:00 91 12/27/17 20:00 98.2 91 13 115/57 (76) 96 12/27/17 19:03 98 21 12/27/17 18:00 87 12/27/17 16:00 86 12/27/17 16:00 99.1 86 15 125/63 (83) 93 12/27/17 14:00 86 12/27/17 12:00 98.9 83 14 111/58 (75) 97 12/27/17 12:00 83 12/27/17 10:00 85 (Jasmyne Bee) -: 12/28/17 0400 12/27/17 0250 Imaging Last 72 hours Impressions Foot X-Ray 12/26/17 0000 Signed Impressions: Service Date/Time: Tuesday, December 26, 2017 07:29 - CONCLUSION: 1. Findings concerning for osteomyelitis involving the tuft of the first toe. Phani Vasquez MD Foot X-Ray 12/26/17 0000 Signed Impressions: Service Date/Time: Tuesday, December 26, 2017 07:24 - CONCLUSION: 1. Interval more proximal transmetatarsal amputation with soft tissue swelling and erosive change most prominently in the base of the fifth metatarsal concerning for osteomyelitis. Phani Vasquez MD Head CT 12/25/172124 Signed Impressions: Service Date/Time: Monday, December 25, 2017 22:22 - CONCLUSION: No acute intracranial abnormality demonstrated. Eliu Ayala MD Chest X-Ray 12/25/172026 Signed Impressions: Service Date/Time: Monday, December 25, 2017 20:45 - CONCLUSION: No evidence of acute cardiopulmonary disease. Eliu Ayala MD Tubes & Lines Comment Ta right chest (Jasmyne Bee) Physical Exam General Appearance: Well Developed, Well Nourished, No Acute Distress, Comfortable (Jasmyne Bee) Eyes Eye Exam: Pupils Equal (Jasmyne Bee) Neck Neck Exam: Neck Supple (Jasmyne Bee) Pulmonary Resp Exam: Clear Bilaterally, Breath Sounds Equal (Jasmyne Bee) Cardiology CV Exam: Regular, Normal Sinus Rhythm (Jasmyne Bee) Gastrointestinal/Abdomen GI Exam: Soft, Non-Tender, Bowel Sounds Present (Jasmyne Bee) Musculoskeletal MS Exam: Joints Intact, Good Strength MS Remarks left midfoot amputation, no skin flap bone visible, dark edges with gangrene/eschar; brenda intact (Jasmyne Bee) Integumentary Skin Exam: Warm, Dry Skin Remarks see above right great toe with nail changes. (Jasmyne Bee) Extremeties Extremities Exam: No Edema, Pedal Pulses Palpable Extremeties Remarks left AVF +thrill, bruit (Jasmyne Bee) Neurologic Neuro Exam: Alert, Awake, Oriented, Speech Clear, Moving All Extremities (Jasmyne Bee) Psychiatric Psych Exam: Appropriate Responses (Jasmyne Bee) Assessment/Plan Discussed Condition With: Patient Assessment Summary: Anemia of CKD, Hypertension, Diabetes Mellitus, End Stage Renal Disease Problem List: (1) ESRD (end stage renal disease) ICD Codes: N18.6 - End-stage renal disease Status: Resolved Plan: HD MWF, due today, 3 hrs on a 2K bath. Avoid IVF administration, gadolinium in contraindicated Using AVF left arm for HD High protein diet ordered with protein supplements. Repeat labs intermittently, ordered for tomorrow. He has existing HD arrangements in place (2) Osteomyelitis ICD Codes: M86.9 - Osteomyelitis, unspecified Status: Acute Plan: ID and vascular following with podiatry On sysunday scheduled for bilateral angiogram. Possible L BKA if no improvement. Vascular recommends to wait right sided amputations until after revascularization to assess for improvement Cultures are negative at this time. Continue to monitor. Unclear if we can remove the Ta; if antibiotics will be required at discharge consider leaving it in. ID assistance on this matter is appreciated. (3) PAD (peripheral artery disease) ICD Codes: I73.9 - Peripheral vascular disease, unspecified Status: Chronic Plan: See above Needs wound care to left foot/amputation site. (4) Bone metabolism disorder ICD Codes: E88.9 - Metabolic disorder, unspecified; M90.80 - Osteopathy in diseases classified elsewhere, unspecified site Status: Acute Plan: Phosphorus is very high, On high dose Renvela with meals Advised binder compliance (5) DKA (diabetic ketoacidoses) ICD Codes: E13.10 - Other specified diabetes mellitus with ketoacidosis without coma Status: Acute Plan: Resolved, on insulin therapy SQ Taking PO food, follow glucose level, goal 140-180 mg/dL A1c 10.7 (6) HTN (hypertension) ICD Codes: I10 - Essential (primary) hypertension Status: Chronic Plan: Continue home medications, titrate as needed Permanent Comment: Last Edited By: Jasmyne Bee on Jul 11, 2017 15:31 (7) Anemia ICD Codes: D64.9 - Anemia, unspecified Plan: Epogen with dialysis (8) Hyperkalemia ICD Codes: E87.5 - Hyperkalemia Status: Acute Plan: Secondary to DKA Improved, follow labs (Jasmyne Bee) Problem List: (1) ESRD (end stage renal disease) ICD Codes: N18.6 - End-stage renal disease Status: Resolved Plan: HD MWF, due today, 3 hrs on a 2K bath. Avoid IVF administration, gadolinium in contraindicated Using AVF left arm for HD High protein diet ordered with protein supplements. Repeat labs intermittently, ordered for tomorrow. He has existing HD arrangements in place (2) Osteomyelitis ICD Codes: M86.9 - Osteomyelitis, unspecified Status: Acute Plan: ID and vascular following with podiatry On Sunday scheduled for bilateral angiogram. Possible L BKA if no improvement. Vascular recommends to wait right sided amputations until after revascularization to assess for improvement Cultures are negative at this time. Continue to monitor. Unclear if we can remove the Ta; if antibiotics will be required at discharge consider leaving it in. ID assistance on this matter is appreciated. (3) PAD (peripheral artery disease) ICD Codes: I73.9 - Peripheral vascular disease, unspecified Status: Chronic Plan: See above Needs wound care to left foot/amputation site. (4) Bone metabolism disorder ICD Codes: E88.9 - Metabolic disorder, unspecified; M90.80 - Osteopathy in diseases classified elsewhere, unspecified site Status: Acute Plan: Phosphorus is very high, On high dose Renvela with meals Advised binder compliance (5) DKA (diabetic ketoacidoses) ICD Codes: E13.10 - Other specified diabetes mellitus with ketoacidosis without coma Status: Acute Plan: Resolved, on insulin therapy SQ Taking PO food, follow glucose level, goal 140-180 mg/dL A1c 10.7 (6) HTN (hypertension) ICD Codes: I10 - Essential (primary) hypertension Status: Chronic Plan: Continue home medications, titrate as needed Permanent Comment: Last Edited By: Jasmyne Bee on Jul 11, 2017 15:31 (7) Anemia ICD Codes: D64.9 - Anemia, unspecified Plan: Epogen with dialysis (8) Hyperkalemia ICD Codes: E87.5 - Hyperkalemia Status: Acute Plan: Secondary to DKA Improved, follow labs Plan patient was seen and examined. Agree with above assessment and plan. We are likely heading towards left BKA. Notes were reviewed. Management per ID, vascular surgery and podiatry. Prognosis is poor. He is a brittle type 1 diabetic with severe PAD. (Maurice Schultz MD) Problem Qualifiers (1) Osteomyelitis: Qualified Codes: M86.8X7 - Other osteomyelitis, ankle and foot (2) DKA (diabetic ketoacidoses): Qualified Codes: E10.11 - Type 1 diabetes mellitus with ketoacidosis with coma (3) Anemia: Qualified Codes: N18.6 - End stage renal disease; D63.1 - Anemia in chronic kidney disease; Z99.2 - Dependence on renal dialysis Jasmyne Bee Dec 28, 2017 09:54 Maurice Schultz MD Dec 28, 2017 16:44
[2017-12-28] MEDS: ACETAMINOPHEN/HYDROcodone 325 MG/7.5 MG TAB PO PRN ×2 (09:58→17:55)
--- NOTE | 2017-12-28 12:30 | HHI.PR ---
Subjective Remarks Social Work Coordinator Notes: This is a pleasant 57 y/o Male with ESRD on HD M/W/F, DM II, Peripheral artery disease, Hypertension, Hyperlipidemia, Tobacco dependence, COPD, brought [facility] and [facility] with decreased mental status. CT brain was negative. He was in DKA with glucose 706 and anion gap 23. Potassium 6.9. Dr. Arnett discussed with Nephrology and arranged for hemodialysis and consulted [facility] for admission. SUBJ 12/27: Mentation has significantly improved, currently oriented to person and place did not know the date. Hypoglycemia has resolved in fact currently hyperglycemic blood sugar varying from 150-250. I will resume lower dose of Levemir 3 units every 12, start ADA and renal diet. Vascular surgery consulted for evaluation of leg leg vascular insufficiency/PVD Hospitalist Notes: 12/28: Stable today had Dialysis, to continue M/W/F, to avoid IVF administration , ID specialist and Vascular Surgery following on Zosyn, Scheduled for next Sunday12/31/17 for Bilateral angiography, possible Left BKA if no improvement, Stable no new issues. Objective Vital Signs Date Time Temp Pulse Resp B/P (MAP) Pulse Ox O2 Delivery O2 Flow Rate FiO2 12/28/17 10:43 97 12/28/17 04:16 98.4 95 18 133/65 (87) 97 12/28/17 04:00 97 12/28/17 00:00 98.3 92 11 110/55 (73) 94 12/28/17 00:00 92 12/27/17 20:00 91 12/27/17 20:00 98.2 91 13 115/57 (76) 96 12/27/17 19:03 98 21 12/27/17 18:00 87 12/27/17 16:00 86 12/27/17 16:00 99.1 86 15 125/63 (83) 93 12/27/17 14:00 86 I/O 12/27/17 12/27/17 12/27/17 12/28/17 12/28/17 12/28/17 07:00 15:00 23:00 07:00 15:00 23:00 Intake Total 50 ml 50 ml 110 ml 240 ml Output Total 0 ml 0 ml 0 ml Balance 50 ml 50 ml 110 ml 240 ml Intake Oral 0 ml 60 ml 240 ml IV Total 50 ml 50 ml 50 ml Output Urine Total 0 ml 0 ml 0 ml # Bowel Movements 0 0 0 Result Diagram: 12/28/17 0400 12/27/17 0250 Imaging Last Impressions Foot X-Ray 12/26/17 0000 Signed Impressions: Service Date/Time: Tuesday, December 26, 2017 07:29 - CONCLUSION: 1. Findings concerning for osteomyelitis involving the tuft of the first toe. Phani Vasquez MD Head CT 12/25/172124 Signed Impressions: Service Date/Time: Monday, December 25, 2017 22:22 - CONCLUSION: No acute intracranial abnormality demonstrated. Eliu Ayala MD Chest X-Ray 12/25/[id number] Signed Impressions: Service Date/Time: Monday, December 25, 2017 20:45 - CONCLUSION: No evidence of acute cardiopulmonary disease. Eliu Ayala MD Procedures None Other Results Laboratory Tests Test 12/25/17 20:35 12/25/17 20:54 12/25/17 23:00 12/26/17 11:31 Bedside Hemoglobin 10.2 G/DL Bedside Hematocrit 30.0 % Bedside Sodium 125 MMOL/L Bedside Potassium 6.8 MMOL/L Bedside Chloride 98 MMOL/L Bedside Blood Urea Nitrogen GREATER THAN 140 MG/DL Bedside Creatinine 15.3 MG/DL Bedside Glucose 694 MG/DL Lactic Acid Level 2.4 mmol/L Lipase 110 U/L B-Hydroxybutyrate 2.04 MMOL/L Blood Gas Puncture Site RT BRACHIAL Blood Gas Patient Temperature 98.6 Blood Gas HCO3 13 mmol/L Blood Gas Base Excess -14.0 mmol/L Blood Gas Oxygen Saturation 97 % Arterial Blood pH 7.19 Arterial Blood Partial Pressure CO2 34 mmHg Arterial Blood Partial Pressure O2 165 mmHG Arterial Blood Oxygen Content 13.2 Vol % Arterial Blood Carboxyhemoglobin 1.3 % Arterial Blood Methemoglobin 0.5 % Blood Gas Hemoglobin 9.4 G/DL Oxygen Delivery Device NASAL CANNULA Blood Gas Liter Flow 4 L/M Nasal Screen MRSA (PCR) MRSA NOT DETECTED Troponin I 0.75 NG/ML Test 12/27/17 00:20 12/27/17 02:50 12/27/17 11:22 12/28/17 04:00 Blood Urea Nitrogen 75 MG/DL 76 MG/DL Creatinine 10.15 MG/DL 10.15 MG/DL Random Glucose 348 MG/DL 231 MG/DL Total Protein 6.7 GM/DL 6.8 GM/DL Calcium Level 7.3 MG/DL 7.4 MG/DL Phosphorus Level 8.5 MG/DL 8.6 MG/DL 9.1 MG/DL Magnesium Level 2.1 MG/DL Sodium Level 138 MEQ/L 138 MEQ/L Potassium Level 4.6 MEQ/L 4.7 MEQ/L Chloride Level 96 MEQ/L 97 MEQ/L Carbon Dioxide Level 23.7 MEQ/L 25.7 MEQ/L Albumin 2.3 GM/DL Alkaline Phosphatase 177 U/L Aspartate Amino Transf (AST/SGOT) 50 U/L Alanine Aminotransferase (ALT/SGPT) 39 U/L Total Bilirubin 0.4 MG/DL Anion Gap 15 MEQ/L Estimat Glomerular Filtration Rate 6 ML/MIN Protein Corrected Calcium 7.6 MG/DL Hemoglobin A1c 10.7 % White Blood Count 13.4 TH/MM3 Red Blood Count 4.35 MIL/MM3 Hemoglobin 10.2 GM/DL Hematocrit 32.7 % Mean Corpuscular Volume 75.2 FL Mean Corpuscular Hemoglobin 23.6 PG Mean Corpuscular Hemoglobin Concent 31.3 % Red Cell Distribution Width 20.3 % Platelet Count 249 TH/MM3 Mean Platelet Volume 9.1 FL Neutrophils (%) (Auto) 84.2 % Lymphocytes (%) (Auto) 5.2 % Monocytes (%) (Auto) 8.6 % Eosinophils (%) (Auto) 0.4 % Basophils (%) (Auto) 1.6 % Neutrophils # (Auto) 11.3 TH/MM3 Lymphocytes # (Auto) 0.7 TH/MM3 Monocytes # (Auto) 1.2 TH/MM3 Eosinophils # (Auto) 0.1 TH/MM3 Basophils # (Auto) 0.2 TH/MM3 CBC Comment DIFF FINAL Differential Comment Objective Remarks GENERAL: male who is laying [facility] [place] to person and place SKIN: Warm and dry. HEAD: Atraumatic. Normocephalic. EYES: Pupils equal and round. No scleral icterus. No injection or drainage. ENT: No nasal bleeding or discharge. Mucous membranes pink and moist. NECK: Trachea midline. No JVD. CARDIOVASCULAR: Regular rate and rhythm. No murmurs rubs or gallops. RESPIRATORY: Breathing comfortably with no accessory muscle use. Clear to auscultation. Breath sounds equal bilaterally. GASTROINTESTINAL: Abdomen soft, non-tender, nondistended. Bowel sounds present. VASC: Ta catheter R chest, dressing in place. No tenderness/erythema/ drainage. LUE fistula accessed for HD MUSCULOSKELETAL: Wound on 1st digit right foot with necrotic eschar overlying, no drainage. L foot s/p transmetatarsal amputation. Sutures and brenda in place and the most distal aspect is ballotable, surrounding necrotic eschar. NEUROLOGICAL: Alert awake oriented to person and place. Moves all extremities follows commands nonfocal exam Medications and IVs Current Medications Medications (Trade) Dose Ordered Sig/April Route Start Time Stop Time Status Last Admin (NS Flush) 2 ml UNSCH PRN IV FLUSH 12/26/17 01:45 (NS Flush) 2 ml BID IV FLUSH 12/26/17 09:00 12/28/17 09:00 (Protonix) 40 mg DAILY PO 12/26/17 09:00 12/28/17 09:47 (Zofran Inj) 4 mg Q6H PRN IV PUSH 12/26/17 01:45 Miscellaneous Information 1 Q361D XX 12/26/17 01:45 12/26/17 01:45 (Chlorhexidine 2% Cloth) 3 pack Taper DAILY@04 TOP 12/26/17 04:00 12/22/18 03:59 12/27/17 03:34 (Chlorhexidine 2% Cloth) 3 pack UNSCH PRN TOP 12/26/17 01:45 (Odette-Colace) 1 tab BID PO 12/26/17 09:00 12/28/17 09:47 (Milk Of Magnesia Liq) 30 ml Q12H PRN PO 12/26/17 01:45 (Senokot) 17.2 mg Q12H PRN PO 12/26/17 01:45 (Dulcolax Supp) 10 mg DAILY PRN RECTAL 12/26/17 01:45 (Lactulose Liq) 30 ml DAILY PRN PO 12/26/17 01:45 (Symbicort 160-4.5 Mcg Inh) 1 puff Q12HR INH 12/26/17 09:00 12/27/17 20:56 (Vitamin D3) 1,000 units DAILY PO 12/26/17 09:00 12/28/17 09:47 (Norvasc) 5 mg DAILY PO 12/26/17 09:00 12/28/17 09:47 (Cymbalta Dr) 30 mg DAILY PO 12/26/17 09:00 12/28/17 09:47 (Albuterol Neb) 2.5 mg Q2HR NEB PRN NEB 12/26/17 07:15 (Heparin Inj) 5,000 units Q12HR SQ 12/26/17 09:00 12/28/17 09:53 Piperacillin Sod/ Tazobactam Sod 50 ml @ 100 mls/hr Q8H IV 12/26/17 12:00 12/28/17 04:00 (D50w (Vial) Inj) 50 ml UNSCH PRN IV PUSH 12/26/17 13:00 (Glucagon Inj) 1 mg UNSCH PRN OTHER 12/26/17 13:00 (NovoLOG SUPPLEMENTAL SCALE) 1 Q4HR SQ 12/26/17 12:47 12/27/17 20:56 Sodium Chloride 1,000 ml @ 0 mls/hr Q0M PRN OTHER 12/26/17 13:45 (Heparin Inj) 8,000 units UNSCH PRN IV FLUSH 12/26/17 13:45 Sodium Chloride 1,000 ml @ 200 mls/hr Q5H PRN IV 12/26/17 13:45 Sodium Chloride 1,000 ml @ 0 mls/hr Q0M PRN OTHER 12/26/17 13:45 (Mannitol Inj) 12.5 gm UNSCH PRN IV 12/26/17 13:45 Albumin Human 100 ml @ 60 mls/hr UNSCH PRN IV 12/26/17 13:45 (NS Flush) 5 ml UNSCH PRN IV FLUSH 12/26/17 13:45 (Heparin Inj) UNSCH PRN .XX 12/26/17 13:45 (Gentamicin Inj) 20 mg UNSCH PRN OTHER 12/26/17 13:45 (Zofran Inj) 4 mg UNSCH PRN IV PUSH 12/26/17 13:45 (Tylenol) 650 mg UNSCH PRN PO 12/26/17 13:45 (Benadryl) 25 mg UNSCH PRN PO 12/26/17 13:45 (Nitrostat Sl) 0.4 mg UNSCH PRN SL 12/26/17 13:45 (Catapres) 0.1 mg UNSCH PRN PO 12/26/17 13:45 (Epogen Inj) 10,000 units UNSCH PRN IV PUSH 12/26/17 13:45 (Gelfoam 12 Mm/7 Mm Top) 1 foam UNSCH PRN TOP 12/26/17 13:45 (Aspirin Chew) 81 mg DAILY CHEW 12/26/17 15:00 12/28/17 09:47 (Morphine Inj) 2 mg Q3H PRN IV 12/26/17 17:15 12/28/17 04:36 (Levemir Inj) 3 units Q12HR SQ 12/27/17 12:15 12/27/17 20:56 ([place] 7.5-325 Mg) 1 tab Q4H PRN PO 12/27/17 12:15 12/28/17 09:58 (Renvela) 2,400 mg TIDAC PO 12/27/17 17:00 12/28/17 09:47 A/P Assessment and Plan 1. Acute toxic metabolic encephalopathy/Peripheral Neuropathy/Depression His medicines Baclofen, Gabapentin and Percocet were held by cash reconciliation specialist on Morphine and Duloxetine [address] brain negative. 2. COPD/Tobacco dependence strongly recommended to stop smoking, on Symbicort 160/4.5 2 puffs inhaled twice a day 3. Hypertension/Peripheral Artery Disease status post Left posterior tibial artery angioplasty 09/24/17 Dr Ortiz on Amlodipine 5 mg daily and Lisinopril 10 mg daily 4. ESRD on Hemodialysis M/W/F, Nephrology specialist following 5. Leukocytosis/osteomyelitis of the left foot Left second toe amputation 07/11/17 Left Posterior tibial artery angioplasty 09/24/17 I and D Left foot 09/28/17 left foot transmetatarsal amputation 09/26/17 Dr. Judge Poor wound healing and dry gangrene as well as probable wet gangrene noted ID and podiatry following Cipro 500 mg BID started 12/13/17, Diflucan 200 mg daily started 12/18/17, following blood cultures. Zosyn 2.25 grams IV q 8 hours removed Diflucan by ID specialist ID specialist and Vascular Surgery following on Zosyn, Scheduled for next Sunday12/31/17 for Bilateral angiography, possible Left BKA if no improvement but has to wait until revascularization/toe pressures. 6. Anemia of chronic disease 7. DKA resolved/DM II Started on detemir at the lower dose 3 units every 12 after starting ADA renal diet PROPH: Heparin 5000 units subcutaneous every 12 hours for DVT prophylaxis. Protonix 40 mg by mouth daily Discharge Planning Once cleared by specialists. Jg Sepulveda MD Dec 28, 2017 12:30
--- NOTE | 2017-12-28 13:11 | RADRPT ---
EXAM DATE/TIME: 12/27/2017 00:00 [place] COMPARISON: No previous studies available for comparison. INDICATIONS : PVD TECHNIQUE: Four-cuff ankle and brachial pressures were obtained. Pulse cuff waveform tracings of the ankles were recorded, and ankle-brachial indices were calculated. PRESSURES (mmHg): Brachial (arm): Right 142 Left IV SITE Ankle: Right 183 Left 22 KINJAL: Right 1.29 Left 0.15 PULSED CUFF WAVEFORMS: Diminished waveforms bilaterally. CONCLUSION: Severely diminished KINJAL on the left. CT angiography and runoff could be performed for more definitive assessment. Roosevelt Castillo MD on December 28, 2017 at 13:08 Board Certified Radiologist. This report was verified electronically.
[2017-12-28] MEDS: EPOETIN ALFA 10,000 UNITS/ML VIAL IV PUSH PRN (15:42)
[2017-12-28] MEDS: GELATIN 12 MM/7 MM FOAM TOP PRN (15:42)
[2017-12-28] MEDS: BUDESONIDE-FORMOTEROL 160/4.5 MCG INHALER INH SCH (20:08)
--- NOTE | 2017-12-28 20:29 | PD.POD ---
Subjective Podiatric Problems Dry gangrene bilateral lower extremities Past Med/Surg/Social History Past Medical History Endocrine: REPORTS HX OF: Diabetes mellitus (TYPE 2) Respiratory: REPORTS HX OF: COPD Cardiovascular: REPORTS HX OF: Hypertension, Peripheral vascular dz Genitourinary: REPORTS HX OF: Hemodialysis, Kidney failure (renal-stage 5) Neurologic: REPORTS HX OF: Peripheral neuropathy Past Surgical History HEENT: REPORTS HX OF: Other eye surgery Gastrointestinal: DENIES HX OF: Colectomy, total Social History Smoking Status: Unknown If Ever Smoked Objective Vital Signs Vital Signs Date Time Temp Pulse Resp B/P (MAP) Pulse Ox O2 Delivery O2 Flow Rate FiO2 12/28/17 18:00 92 12/28/17 17:30 98.6 92 18 154/84 (107) 97 12/28/17 17:00 90 12/28/17 12:00 90 12/28/17 11:45 98.9 91 18 152/75 (100) 92 12/28/17 11:00 92 12/28/17 10:43 97 12/28/17 10:00 90 12/28/17 09:00 92 12/28/17 08:45 98.8 95 18 150/99 (116) 92 12/28/17 08:00 92 12/28/17 07:00 93 12/28/17 04:16 98.4 95 18 133/65 (87) 97 12/28/17 04:00 97 12/28/17 00:00 98.3 92 11 110/55 (73) 94 12/28/17 00:00 92 Coded Allergies: No Known Allergies (Verified Allergy, Unknown, 10/16/17) Other Results Last 72 hours Impressions Foot X-Ray 12/26/17 0000 Signed Impressions: Service Date/Time: Tuesday, December 26, 2017 07:29 - CONCLUSION: 1. Findings concerning for osteomyelitis involving the tuft of the first toe. Phani Vasquez MD Foot X-Ray 12/26/17 0000 Signed Impressions: Service Date/Time: Tuesday, December 26, 2017 07:24 - CONCLUSION: 1. Interval more proximal transmetatarsal amputation with soft tissue swelling and erosive change most prominently in the base of the fifth metatarsal concerning for osteomyelitis. Phani Vasquez MD Head CT 12/25/172124 Signed Impressions: Service Date/Time: Monday, December 25, 2017 22:22 - CONCLUSION: No acute intracranial abnormality demonstrated. Eliu Ayala MD Exam-Podiatry Remarks History of TMA left foot with gangrenous changes and cool temperature to dorsal midfoot/rearfoot level. Dry margins. Appears stable. Right foot with dry necrotic distal aspect of hallux. Margins dry with no purulence noted. Appears stable. Assessment & Plan A/P Gangrene bilateral feet. Await angio Sunday with Dr Ortiz. Likely more proximal amputation left lower extremity. Will likely need amputation right hallux, possibly more proximal, based on recommendations after angio. Possible to OR for right foot mid-week Fransisco Stinson DPM Dec 28, 2017 20:29
[2017-12-29] VITALS (27 sets, daily range): BP systolic 110–157; BP diastolic 55–74; PULSE 65–90; RESP 18–20; TEMP 98.4–98.6; O2SAT 96–98
[2017-12-29] MEDS: MORPHINE SULFATE 2 MG/ML INJ IV PRN ×2 (03:12→20:33)
[2017-12-29] MEDS: PIPERACIL-TAZO 2.25 GM PREMIX 50 ML IV SCH ×3 (03:12→20:34)
[2017-12-29] MEDS: LOW DOSE INSULIN NOVOLOG SUPPLEMENTAL SCALE SQ SCH ×7 (03:23→23:16)
[2017-12-29] MEDS: CHLORHEXIDINE GLUCONATE 2 % 1 PACK (2 CLOTHS) TOP SCH (03:23)
[2017-12-29 04:23] LABS: ALBUMIN 2.3 GM/DL (3.4-5.0); BICARBONATE 15.4 MEQ/L (21.0-32.0); CALCIUM 8.1 MG/DL (8.5-10.1); CREATININE 8.74 MG/DL (0.60-1.30); PHOSPHORUS 9.5 MG/DL (2.5-4.9)
[2017-12-29] MEDS: NITROGLYCERIN 0.4 MG SL 25 TABS/BTL SL PRN ×2 (07:32→08:05)
[2017-12-29] MEDS ORDERED: METOPROLOL TARTRATE 5 MG/5 ML VIAL IV PUSH PRN (08:00)
[2017-12-29] MEDS: METOPROLOL TARTRATE 25 MG TAB PO SCH ×3 (08:00→23:12)
[2017-12-29] MEDS: SODIUM CHLORIDE 0.9% FLUSH 10 ML FLUSH IV FLUSH SCH ×2 (08:00→20:34)
[2017-12-29] MEDS: SEVELAMER CARBONATE 800 MG TAB PO SCH ×3 (08:00→18:47)
[2017-12-29] MEDS: NITROGLYCERIN 2% OINT 1 GM PACKET TOPICAL SCH ×3 (08:20→23:12)
[2017-12-29] MEDS ORDERED: KETOROLAC TROMETHAMINE 30 MG/ML (IVP) VIAL IV PUSH ONE (08:45)
[2017-12-29] MEDS ORDERED: INSULIN HUMAN REGULAR 1,000 UNITS/10 ML VIAL IV PUSH ONE ×2 (08:45→12:00)
[2017-12-29] MEDS ORDERED: NITROGLYCERIN INJ 0 ML ONE (08:50)
[2017-12-29] MEDS ORDERED: MIDAZOLAM HCL 2 MG/2 ML VIAL ONE (08:50)
[2017-12-29] MEDS ORDERED: HEPARIN-NS/PF FLUSH BAG 2,000 ML IV FLUSH ONE (08:50)
--- NOTE | 2017-12-29 08:56 | PD.CARD.PN ---
Subjective Subjective Remarks CTSP for persistent CP and ST elevation. SL NTG only partially effective in relief. Objective Medications Current Medications Medications (Trade) Dose Ordered Sig/April Route Start Time Stop Time Status Last Admin (NS Flush) 2 ml UNSCH PRN IV FLUSH 12/26/17 01:45 (NS Flush) 2 ml BID IV FLUSH 12/26/17 09:00 12/28/17 20:04 (Protonix) 40 mg DAILY PO 12/26/17 09:00 12/28/17 09:47 (Zofran Inj) 4 mg Q6H PRN IV PUSH 12/26/17 01:45 Miscellaneous Information 1 Q361D XX 12/26/17 01:45 12/26/17 01:45 (Chlorhexidine 2% Cloth) 3 pack Taper DAILY@04 TOP 12/26/17 04:00 12/22/18 03:59 12/29/17 03:23 (Chlorhexidine 2% Cloth) 3 pack UNSCH PRN TOP 12/26/17 01:45 (Odette-Colace) 1 tab BID PO 12/26/17 09:00 12/28/17 20:04 (Milk Of Magnesia Liq) 30 ml Q12H PRN PO 12/26/17 01:45 (Senokot) 17.2 mg Q12H PRN PO 12/26/17 01:45 (Dulcolax Supp) 10 mg DAILY PRN RECTAL 12/26/17 01:45 (Lactulose Liq) 30 ml DAILY PRN PO 12/26/17 01:45 (Symbicort 160-4.5 Mcg Inh) 1 puff Q12HR INH 12/26/17 09:00 12/28/17 20:08 (Vitamin D3) 1,000 units DAILY PO 12/26/17 09:00 12/28/17 09:47 (Norvasc) 5 mg DAILY PO 12/26/17 09:00 12/28/17 09:47 (Cymbalta Dr) 30 mg DAILY PO 12/26/17 09:00 12/28/17 09:47 (Albuterol Neb) 2.5 mg Q2HR NEB PRN NEB 12/26/17 07:15 (Heparin Inj) 5,000 units Q12HR SQ 12/26/17 09:00 12/28/17 20:04 Piperacillin Sod/ Tazobactam Sod 50 ml @ 100 mls/hr Q8H IV 12/26/17 12:00 12/29/17 03:12 (D50w (Vial) Inj) 50 ml UNSCH PRN IV PUSH 12/26/17 13:00 (Glucagon Inj) 1 mg UNSCH PRN OTHER 12/26/17 13:00 (NovoLOG SUPPLEMENTAL SCALE) 1 Q4HR SQ 12/26/17 12:47 12/29/17 03:23 Sodium Chloride 1,000 ml @ 0 mls/hr Q0M PRN OTHER 12/26/17 13:45 (Heparin Inj) 8,000 units UNSCH PRN IV FLUSH 12/26/17 13:45 Sodium Chloride 1,000 ml @ 200 mls/hr Q5H PRN IV 12/26/17 13:45 Sodium Chloride 1,000 ml @ 0 mls/hr Q0M PRN OTHER 12/26/17 13:45 (Mannitol Inj) 12.5 gm UNSCH PRN IV 12/26/17 13:45 Albumin Human 100 ml @ 60 mls/hr UNSCH PRN IV 12/26/17 13:45 (NS Flush) 5 ml UNSCH PRN IV FLUSH 12/26/17 13:45 (Heparin Inj) UNSCH PRN .XX 12/26/17 13:45 (Gentamicin Inj) 20 mg UNSCH PRN OTHER 12/26/17 13:45 (Zofran Inj) 4 mg UNSCH PRN IV PUSH 12/26/17 13:45 (Tylenol) 650 mg UNSCH PRN PO 12/26/17 13:45 (Benadryl) 25 mg UNSCH PRN PO 12/26/17 13:45 (Nitrostat Sl) 0.4 mg UNSCH PRN SL 12/26/17 13:45 12/29/17 08:05 (Catapres) 0.1 mg UNSCH PRN PO 12/26/17 13:45 (Epogen Inj) 10,000 units UNSCH PRN IV PUSH 12/26/17 13:45 12/28/17 15:42 (Gelfoam 12 Mm/7 Mm Top) 1 foam UNSCH PRN TOP 12/26/17 13:45 12/28/17 15:42 (Aspirin Chew) 81 mg DAILY CHEW 12/26/17 15:00 12/28/17 09:47 (Morphine Inj) 2 mg Q3H PRN IV 12/26/17 17:15 12/29/17 03:12 (Levemir Inj) 3 units Q12HR SQ 12/27/17 12:15 12/27/17 20:56 ([place] 7.5-325 Mg) 1 tab Q4H PRN PO 12/27/17 12:15 12/28/17 17:55 (Renvela) 2,400 mg TIDAC PO 12/27/17 17:00 12/28/17 17:54 (Lopressor) 25 mg Q8H PO 12/29/17 08:00 (Lopressor Inj) 2.5 mg ONCE PRN IV PUSH 12/29/17 08:00 12/29/17 23:00 12/29/17 08:16 (Nitroglycerin 2% Oint) 1 inch Q8H TOPICAL 12/29/17 08:00 Vital Signs / I&O Vital Signs Date Time Temp Pulse Resp B/P (MAP) Pulse Ox O2 Delivery O2 Flow Rate FiO2 12/29/17 07:37 20 12/29/17 06:00 79 12/29/17 05:00 83 12/29/17 04:00 Room Air 12/29/17 04:00 82 12/29/17 04:00 98.4 82 20 149/69 (95) 97 12/29/17 03:00 80 12/29/17 02:00 84 12/29/17 01:00 81 12/29/17 00:00 Room Air 12/29/17 00:00 98.6 90 20 152/74 (100) 97 12/29/17 00:00 90 12/28/17 23:00 92 12/28/17 22:00 96 12/28/17 21:00 90 12/28/17 20:00 96 12/28/17 20:00 92 12/28/17 20:00 98.2 96 20 148/70 (96) 98 12/28/17 18:00 92 12/28/17 17:30 98.6 92 18 154/84 (107) 97 12/28/17 17:00 90 12/28/17 12:00 90 12/28/17 11:45 98.9 91 18 152/75 (100) 92 12/28/17 11:00 92 12/28/17 10:43 97 12/28/17 10:00 90 12/28/17 09:00 92 I/O 12/28/17 12/28/17 12/28/17 12/29/17 12/29/17 12/29/17 07:00 15:00 23:00 07:00 15:00 23:00 Intake Total 290 ml 960 ml 240 ml Output Total 0 ml 2000 ml 0 ml Balance 290 ml -1040 ml 240 ml Intake Oral 240 ml 960 ml 240 ml IV Total 50 ml Output Urine Total 0 ml 0 ml 0 ml Hemodialysis 2000 ml # Voids 0 # Bowel Movements 0 0 0 Physical Exam VSS, afeb. Lungs CTA Heart: S1, S2 reg. + rub. , no gal. Ext: Warm, Poor puldses below knees. L TMA and bandaged. Neuro: Lethargic. Non-focal. Laboratory Laboratory Tests Test 12/29/17 03:30 12/29/17 08:26 Blood Urea Nitrogen 62 MG/DL Creatinine 8.74 MG/DL Random Glucose 421 MG/DL Albumin 2.3 GM/DL Calcium Level 8.1 MG/DL Phosphorus Level 9.5 MG/DL Sodium Level 134 MEQ/L Potassium Level 6.3 MEQ/L Chloride Level 89 MEQ/L Carbon Dioxide Level 15.4 MEQ/L Anion Gap 30 MEQ/L Estimat Glomerular Filtration Rate 8 ML/MIN Bedside Hemoglobin 11.6 G/DL Bedside Hematocrit 34.0 % Bedside Sodium 129 MMOL/L Bedside Potassium 6.6 MMOL/L Bedside Chloride 96 MMOL/L Bedside Blood Urea Nitrogen 61 MG/DL Bedside Creatinine 9.9 MG/DL Bedside Glucose 518 MG/DL Assessment and Plan Problem List: (1) Chest pain ICD Codes: R07.9 - Chest pain, unspecified Status: Acute Permanent Comment: Patient poor historian. Findings are most c/w acute pericarditis. AMI needs exclusion. Last Edited By: Dima Patel on Dec 29, 2017 08:51 (2) Elevated troponin ICD Codes: R74.8 - Abnormal levels of other serum enzymes (3) Cardiomyopathy ICD Codes: I42.9 - Cardiomyopathy, unspecified (4) Altered mental status ICD Codes: R41.82 - Altered mental status, unspecified (5) ESRD on hemodialysis ICD Codes: N18.6 - End stage renal disease; Z99.2 - Dependence on renal dialysis Status: Chronic (6) COPD (chronic obstructive pulmonary disease) ICD Codes: J44.9 - Chronic obstructive pulmonary disease, unspecified Status: Chronic (7) DKA (diabetic ketoacidoses) ICD Codes: E13.10 - Other specified diabetes mellitus with ketoacidosis without coma Status: Acute (8) DM (diabetes mellitus) ICD Codes: E11.9 - Type 2 diabetes mellitus without complications Status: Chronic (9) HTN (hypertension) ICD Codes: I10 - Essential (primary) hypertension Status: Chronic Permanent Comment: Last Edited By: Jasmyne Bee on Jul 11, 2017 15:31 (10) Cellulitis of foot, left ICD Codes: L03.116 - Cellulitis of left lower limb Status: Acute (11) Osteomyelitis ICD Codes: M86.9 - Osteomyelitis, unspecified Status: Acute Assessment and Plan Topical nitrates, metoprolol started. Toradol 30 mg IVP X 1 for pin relief. I suspect he has developed acute pericarditis. He also has worsening hyperkalemia. He is a poor historian, acute EKG abnormalities, and his severe PAD I think AMI needs to be excluded. Discussed cardiac cath with him and will proceed with coronary angios this AM. Indications, benefits and risks i.e. arterial injury, bleeding, CVA, understood. Orders written and consents signed. Staff attempting to contact any family. Case discussed with Dr. Billings from nephrology who will schedule additional HD today after his angios. Problem Qualifiers (1) Altered mental status: Qualified Codes: R41.82 - Altered mental status, unspecified (2) DKA (diabetic ketoacidoses): Qualified Codes: E10.11 - Type 1 diabetes mellitus with ketoacidosis with coma (3) Osteomyelitis: Qualified Codes: M86.8X7 - Other osteomyelitis, ankle and foot Dima Patel MD Dec 29, 2017 08:56
[2017-12-29] MEDS ORDERED: SODIUM CHLOR 0.9% 1000 ML INJ 1,000 ML IV SCH (08:57)
[2017-12-29] MEDS: DOCUSATE SODIUM 50 MG/SENNA 8.6 MG TAB PO SCH ×2 (09:00→20:30)
[2017-12-29] MEDS: CHOLECALCIFEROL (VIT D3) 1000 UNIT TAB PO SCH (09:00)
[2017-12-29] MEDS ORDERED: MIDAZOLAM HCL 2 MG/2 ML VIAL IV PUSH SCH (09:00)
[2017-12-29] MEDS: BUDESONIDE-FORMOTEROL 160/4.5 MCG INHALER INH SCH ×2 (09:00→20:41)
[2017-12-29] MEDS: ASPIRIN 81 MG CHEW TAB CHEW SCH (09:00)
[2017-12-29] MEDS: PANTOPRAZOLE SOD 40 MG DELAYED RELEASE TAB PO SCH (09:00)
[2017-12-29] MEDS ORDERED: ASPIRIN 325 MG TAB PO SCH (09:00)
[2017-12-29] MEDS: DULoxetine HCl DR 30 MG CAP PO SCH (09:00)
[2017-12-29] MEDS: amLODIPine BESYLATE 5 MG TAB PO SCH (09:00)
[2017-12-29] MEDS ORDERED: SODIUM CHLOR 0.9% 250 ML INJ 250 ML IV PRN (09:45)
[2017-12-29] MEDS ORDERED: SODIUM CHLORIDE 0.9% FLUSH 10 ML FLUSH IV FLUSH PRN (09:45)
[2017-12-29] MEDS ORDERED: MISC INFORMATION XX ONE (09:45)
[2017-12-29] MEDS ORDERED: ATROPINE SULFATE 1 MG/ML VIAL IV PUSH PRN (09:45)
[2017-12-29] MEDS ORDERED: BACITRACIN OINT 0.9 GM PKT TOP ONE (09:45)
--- NOTE | 2017-12-29 09:54 | CATHPROC ---
[facility] HIS Report Study Information Study Number Admission Scheduled Start Study Start [id number] Dec 25 2017 9:33PM 12/29/2017 Dec 29 2017 8:59AM [place] Service Cardiac Catheterization Admit Source Facility Department Other [facility] - Costumer Assistant Physician and Clinical Staff Initial Dima Lora Fisheries Enforcement Officer Chani Roche RN Fisheries Enforcement Officer Jasmyne Han,RT(R) Recorder Dorian STONE, Km Kelly RCIS(BS) Procedures Performed Procedure Location (Site) Vessel Name Coronary Angiograms LCA Left Coronary Coronary Angiograms RCA Right Coronary L Heart Cath Wire insertion Fem Art (right) Femoral Art Equipment Time Metalworking Specialist Description Size Mfg Part Number Used/Scraped TRANSDUCER, KATHRYN [id number] 09:16 TORRES HARTMANN * Used W/STOCKCOCK *[id number] *[id number] *[id number] 09:16 [employer] PACK, CCL CUSTOM * Used *[id number] 09:16 [employer] PACER PEN, SKIN DUAL W/ RULER * Used *[id number] 09:16 [employer] WIRE, 3MMJ .035 180CM 180CM Used *[id number] 09:16 NAMIC MANIFOLD, 4 PORT * Used *[id number] 09:16 NYCOMED OMNIPAQUE, 350 MG, 150ML 150ML [id number] 09:16 [employer] MEDICAL BLANKET,WARM AIR CCL * Used *[id number] 09:16 TERUMO MEDICAL SHEATH, FR4 TERUMO (10CM) FR 4 Used *[id number] History: Allergies Allergy Reaction NKDA History: Risk Factors Family History of Hypertension Dyslipidemia Previous [place] Previous Heart Failure Premature CAD Yes No No No No Prior Valve Prior PCI Prior CABG Surgery No No No Cerebrovascular Peripheral Artery Chronic Lung On Dialysis Diabetes Diabetes Therapy Disease Disease Disease Yes No Yes Yes Yes Insulin History: Stress Tests Stress or Imaging Studies Performed No History: Other Current Smoker Method Yes Cigarettes Labs Hgb (g/dl) Hct (%) WBC (l/cumm) Platelets (thousands) 11.60-17.00 35.00-51.00 4.00-11.00 150.00-450.00 11.6 34 13.4 249 Glucose (mg/dl) BUN (mg/dl) Creatinine (mg/dl) BUN:Creatinine (1:x) 74.00-106.00 7.00-18.00 0.50-1.30 10.00-20.00 518 62 8.8 7 Na (meq/l) K (meq/l) 136.00-145.00 3.50-5.10 134 6.3 Troponin I (ng/ml) CPK-MB (ng/ML) 0.02-0.05 0.50-3.60 0.74 Not Drawn Medication Medication Total Dose (Bolus/Oral) Medication Total Dosage/Unit 1% XYLOCAINE 20 mL FENTANYL 25 mcg Medications (Bolus/Oral) Medication Time Given Dosage/Unit Administered By Reason FENTANYL 12/29/2017 9:26:35 AM 25 mcg Chani Roche 25 mcg FENTANYL given in lab by Chani Roche, CHASE via Peripheral IV. 1% XYLOCAINE 12/29/2017 9:26:49 AM 20 mL Dima Patel 20 mL 1% XYLOCAINE given in lab by Dima Patel in Right Groin via Subcutaneous. Chronological Log Time Study Chronological Log 9:08:29 Patient arrived via Bed. 9:08:41 Patient Name, D.O.B, / Armband Verified By R.N. Vitals capture started with the following parameters, Patient=Adult, Interval=5 min, Initial P olrgnlb=753 mmHg, 9:15:09 Deflation Rate=5 mmHg, Cuff placed on Right Arm 9:15:47 HR=87 bpm, HLHW=992/64 mmhg, VaR5=693.0 %, Resp=14 B/min, Pain=0, Recinos=2 9:16:51 Consent signed by the physician and the patient and verified by the Costumer Assistant staff. 9:16:53 Pre-op and post- op instructions given; patient acknowledges understanding of instructions. 9:16:56 Presedation assessment performed by Costumer Assistant RN. 9:18:51 Patient has been NPO for More than 6Hrs. 9:20:05 Patient Warmer Placed on the Table. 9:20:08 Skin Breakdown- pt has wound on right great toe. Bandage noted to left pedal stump 9:20:48 HR=88 bpm, GHQA=133/56 mmhg, SpO2=97 %, Resp=19 B/min, Recinos=2 9:22:28 MD arrived. 9:22:40 Bilateral groins prepped with 2% chlorhexidine, and draped after a 3 minute waiting time. 9:25:45 Pressure channel 1 zeroed. 9:25:49 HR=82 bpm, FORX=841/59 mmhg, Resp=11 B/min, Recinos=2 9::35 25 mcg FENTANYL given in lab by Chani Roche, CHASE via Peripheral IV. Time Out. Correct patient, correct procedure, correct physician, power injector loaded, or not loaded with contrast with 9::35 surgical team present. Time Out Concurred by MD and individual staff in procedure. 9::44 Presedation re-assessment performed by Costumer Assistant RN. 9::47 Case Start 9::49 20 mL 1% XYLOCAINE given in lab by Dima Patel in Right Groin via Subcutaneous. 9:28:21 Access site was Right Femoral Artery. 9:28:35 A SHEATH, FR4 TERUMO (10CM) FR 4 was advanced into the Fem Art (right) using the Modified S eldinger technique. A JL 4.0 INFINITI CATHETER FR 4 was advanced over a wire. 9:28:54 9:29:09 A WIRE, 3MMJ .035 180CM 180CM was inserted via Fem Art (right). Recorded Pressure: Ao, HR=84, Condition=Condition 1 9:29:36 (Aorta) Ao 101/48/70 9:29:56 The LCA was injected and visualized at various angles. OMNIPAQUE, 350 MG, 150ML 150ML used . 9:30:50 HR=83 bpm, KEXB=949/58 mmhg, SpO2=94 %, Resp=10 B/min, Recinos=2 After removing the current catheter a 3DRC INFINITI CATHETER FR 4 was advanced over a WIRE, 3M MJ .035 180CM 9:32:15 180CM. 9:32:42 The RCA was injected and visualized at various angles. OMNIPAQUE, 350 MG, 150ML 150ML used . 9:36:24 HR=74 bpm, YYGP=664/59 mmhg, Resp=13 B/min, Recinos=2 9:36:27 Case End 9:38:11 Sheath removed; pressure applied to access site. 9:40:48 HR=64 bpm, UMLB=000/70 mmhg, Resp=12 B/min, Recinos=2 9:43:01 CIC called. Spoke to Daniella 9:45:51 HR=69 bpm, GINK=141/66 mmhg, Resp=11 B/min 9:50:56 Sterile dressing applied to site 9:51:15 Vitals capture stopped. 9:51:33 A Left Heart Cath was performed. 9:51:40 Patient moved to stretcher 9:52:24 Bedside Report will be given. End Study - Contrast Media Used In Study Contrast Total Opened (mL) Total Used (mL) Total Wasted (mL) Omnipaque 40 40 0 End Study - Maximum Contrast Load Max Contrast Load (mL) 38.5 End Study - Radiation Exposure Fluoro Time (minutes) 1.5 End Study - Sheaths Sheaths Pulled By Sheath Hold Time (min) Km Telles 15 End Study - Patient Disposition Complications Transferred To Interventional Outcome No Telemetry Bed No attempt made
[2017-12-29] MEDS ORDERED: KETOROLAC TROMETHAMINE 60 MG/2 ML (IM) VIAL IM PRN (10:00)
--- NOTE | 2017-12-29 10:07 | MP ---
cc: Dima Patel MD, Otakar MD DATE OF OPERATION: 12/29/2017 DATE OF PROCEDURE: 12/29/2017 PROCEDURE PERFORMED: Left heart catheterization. Coronary arteriography. PROCEDURE TECHNIQUE: The patient was brought urgently to the cardiac catheterization laboratory for a STEMI alert. Following informed consent, the patient underwent mild sedation with intravenous fentanyl, 25 mg IV. 1% Xylocaine was used for local anesthesia in the right groin. A 4-Micronesian short introducer sheath was placed in the right femoral artery via modified Seldinger technique. Through this introducer sheath a 4-Micronesian diagnostic catheter system including a JL4 and 3DRC were used for the left heart study. Multiple projections of the left and right coronaries were taken and the left ventriculogram was not performed. HEMODYNAMIC DATA: Please see accompanying paperwork. The left ventricle was not entered. ANGIOGRAPHIC FINDINGS: LEFT VENTRICLE: Not performed. LEFT CORONARY ARTERY: The left main trunk arises normally from the left coronary sinus. The left main trunk is a short but large vessel without obstruction. LEFT ANTERIOR DESCENDING ARTERY: The LAD is a moderate caliber vessel which course is to the apex. The LAD gives rise to 2 moderate to large diagonal branches. The LAD has mild luminal irregularities throughout without significant obstruction. The major diagonal branches are moderate to large in caliber and have moderate luminal irregularities with areas of up to 10% narrowing in the first major diagonal branch. CIRCUMFLEX: The main circumflex is nondominant and gives rise to a posterolateral branch. The main circumflex is normal. The posterolateral branch is large in caliber and has a 15% ostial stenosis, mild luminal irregularities. RIGHT CORONARY ARTERY: Dominant. The right coronary artery is a large caliber vessel giving rise to a right ventricular marginal branch, posterior descending branch, and 2 posterior ventricular branches. The right coronary artery has mild luminal irregularities throughout. The RV branch is moderate in caliber and normal. Posterior descending branch is large in caliber with mild irregularities. The first posterior ventricular branch is moderate to large in caliber and normal. The second posterior ventricular branch is small in caliber and normal. DIAGNOSES: 1. Acute pericarditis. 2. Mild coronary atherosclerosis. 3. Moderate left ventricular dysfunction, based upon recent echocardiogram. COMMENT/RECOMMENDATIONS: Angiographically, this patient does not demonstrate any hemodynamically significant epicardial coronary artery disease. His ST elevation and chest pain are likely related to acute pericarditis. Continue medical therapy for that. The patient also has hyperglycemia and hyperkalemia and will undergo urgent dialysis later this morning. The case was discussed with Dr. Billings from nephrology service and the patient. MD KRISTYN Pedraza/MIRIAM , 09:48 AM , 10:06 AM
--- NOTE | 2017-12-29 11:03 | HHI.NPPN ---
Subjective General Problems: Anemia, Diabetes Renal Failure: Chronic, End Stage Renal Disease Additional Remarks Patient seen post cardiac cath earlier today. No acute complaints, ongoing fatigue. Hyperglycemia today Review of Systems Musculoskeletal MS: Pain/Stiffness Skin Skin: Ulcers Skin Remarks right great toe, left MFA skin changes, non healing Objective Data Data 12/29/17 12/30/17 19:00 07:00 Intake Total 100 ml Balance 100 ml IV Total 100 ml Vital Signs Date Time Temp Pulse Resp B/P (MAP) Pulse Ox O2 Delivery O2 Flow Rate FiO2 12/29/17 10:09 84 12/29/17 09:00 84 12/29/17 08:51 97 12/29/17 08:10 18 12/29/17 08:00 90 12/29/17 07:00 90 12/29/17 06:00 79 12/29/17 05:00 83 12/29/17 04:00 Room Air 12/29/17 04:00 82 12/29/17 04:00 98.4 82 20 149/69 (95) 97 12/29/17 03:00 80 12/29/17 02:00 84 12/29/17 01:00 81 12/29/17 00:00 Room Air 12/29/17 00:00 98.6 90 20 152/74 (100) 97 12/29/17 00:00 90 12/28/17 23:00 92 12/28/17 22:00 96 12/28/17 21:00 90 12/28/17 20:00 96 12/28/17 20:00 92 12/28/17 20:00 98.2 96 20 148/70 (96) 98 12/28/17 18:00 92 12/28/17 17:30 98.6 92 18 154/84 (107) 97 12/28/17 17:00 90 12/28/17 12:00 90 12/28/17 11:45 98.9 91 18 152/75 (100) 92 12/28/17 11:00 92 -: 12/28/17 0400 12/29/17 0330 Tubes & Lines Comment Ta right chest Physical Exam General Appearance: Well Developed, Well Nourished, No Acute Distress, Comfortable Eyes Eye Exam: Pupils Equal Neck Neck Exam: Neck Supple Pulmonary Resp Exam: Clear Bilaterally, Breath Sounds Equal Cardiology CV Exam: Regular, Normal Sinus Rhythm Gastrointestinal/Abdomen GI Exam: Soft, Non-Tender, Bowel Sounds Present Musculoskeletal MS Exam: Joints Intact, Good Strength Integumentary Skin Exam: Warm, Dry Extremeties Extremities Exam: No Edema, Pedal Pulses Palpable Neurologic Neuro Exam: Alert, Awake, Oriented, Speech Clear, Moving All Extremities Psychiatric Psych Exam: Appropriate Responses Assessment/Plan Discussed Condition With: Patient Assessment Summary: Anemia of CKD, Hypertension, Diabetes Mellitus, End Stage Renal Disease Problem List: (1) ESRD (end stage renal disease) ICD Codes: N18.6 - End-stage renal disease Status: Resolved Plan: HD MWF Using AVF left arm for HD Now with apparent pericarditis, did HD yesterday. Unclear if uremic component - will do HD daily for now (HD today, tomorrow, then Sunday) Hyperkalemia with K 6.6 in setting of glucose in 500s. Suspect hyperkalemia due to potassium shifts with hyperglycemia - continue insulin management. Will plan for 2K bath with HD today. He has existing HD arrangements in place Avoid IVF administration, gadolinium in contraindicated High protein diet ordered with protein supplements. Repeat labs intermittently, ordered for tomorrow. (2) Osteomyelitis ICD Codes: M86.9 - Osteomyelitis, unspecified Status: Acute Plan: ID and vascular following with podiatry On Sunday scheduled for bilateral angiogram. Possible L BKA if no improvement. Vascular recommends to wait right sided amputations until after revascularization to assess for improvement Cultures are negative at this time. Continue to monitor. Unclear if we can remove the Ta; if antibiotics will be required at discharge consider leaving it in. ID assistance on this matter is appreciated. (3) PAD (peripheral artery disease) ICD Codes: I73.9 - Peripheral vascular disease, unspecified Status: Chronic Plan: See above Needs wound care to left foot/amputation site. (4) Bone metabolism disorder ICD Codes: E88.9 - Metabolic disorder, unspecified; M90.80 - Osteopathy in diseases classified elsewhere, unspecified site Status: Acute Plan: Phosphorus is very high, On high dose Renvela with meals Advised binder compliance (5) DKA (diabetic ketoacidoses) ICD Codes: E13.10 - Other specified diabetes mellitus with ketoacidosis without coma Status: Acute Plan: Hyperglycemia today - follow with primary team. A1c 10.7 half-way regimen is: Detemir 10 units subcutaneous twice a day NovoLog sliding scale Brittle DM 1 (6) HTN (hypertension) ICD Codes: I10 - Essential (primary) hypertension Status: Chronic Plan: Continue home medications, titrate as needed Permanent Comment: Last Edited By: Jasmyne Bee on Jul 11, 2017 15:31 (7) Anemia ICD Codes: D64.9 - Anemia, unspecified Plan: Epogen with dialysis (8) Hyperkalemia ICD Codes: E87.5 - Hyperkalemia Status: Acute Plan: Secondary to hyperglycemia. Continue to monitor. Problem Qualifiers (1) Osteomyelitis: Qualified Codes: M86.8X7 - Other osteomyelitis, ankle and foot (2) DKA (diabetic ketoacidoses): Qualified Codes: E10.11 - Type 1 diabetes mellitus with ketoacidosis with coma (3) Anemia: Qualified Codes: N18.6 - End stage renal disease; D63.1 - Anemia in chronic kidney disease; Z99.2 - Dependence on renal dialysis Roosevelt Billings MD Dec 29, 2017 11:03
[2017-12-29] MEDS ORDERED: INSULIN HUMAN REGULAR 1,000 UNITS/10 ML VIAL SQ ONE (12:45)
--- NOTE | 2017-12-29 13:59 | HHI.PR ---
Subjective Remarks Follow-up acute pericarditis/uncontrolled diabetes type 2/osteomyelitis/chest pain/end-stage renal disease 12/29/17-patient seen and examined, status post angio this a.m., lethargic. Case discussed with nephrology who will plan for hemodialysis today. Blood glucose elevated Objective Vitals Vital Signs Date Time Temp Pulse Resp B/P (MAP) Pulse Ox O2 Delivery O2 Flow Rate FiO2 12/29/17 10:09 84 12/29/17 09:00 84 12/29/17 08:51 97 12/29/17 08:10 18 12/29/17 08:00 90 12/29/17 07:00 90 12/29/17 06:00 79 12/29/17 05:00 83 12/29/17 04:00 Room Air 12/29/17 04:00 82 12/29/17 04:00 98.4 82 20 149/69 (95) 97 12/29/17 03:00 80 12/29/17 02:00 84 12/29/17 01:00 81 12/29/17 00:00 Room Air 12/29/17 00:00 98.6 90 20 152/74 (100) 97 12/29/17 00:00 90 12/28/17 23:00 92 12/28/17 22:00 96 12/28/17 21:00 90 12/28/17 20:00 96 12/28/17 20:00 92 12/28/17 20:00 98.2 96 20 148/70 (96) 98 12/28/17 18:00 92 12/28/17 17:30 98.6 92 18 154/84 (107) 97 12/28/17 17:00 90 I/O 12/28/17 12/28/17 12/28/17 12/29/17 12/29/17 12/29/17 07:00 15:00 23:00 07:00 15:00 23:00 Intake Total 290 ml 960 ml 240 ml 100 ml Output Total 0 ml 2000 ml 0 ml Balance 290 ml -1040 ml 240 ml 100 ml Intake Oral 240 ml 960 ml 240 ml IV Total 50 ml 100 ml Output Urine Total 0 ml 0 ml 0 ml Hemodialysis 2000 ml # Voids 0 # Bowel Movements 0 0 0 Result Diagram: 12/28/17 0400 12/29/17 0330 Imaging Last Impressions Foot X-Ray 12/26/17 0000 Signed Impressions: Service Date/Time: Tuesday, December 26, 2017 07:29 - CONCLUSION: 1. Findings concerning for osteomyelitis involving the tuft of the first toe. Phani Vasquez MD Head CT [id number]/25/[id number] Signed Impressions: Service Date/Time: Monday, December 25, 2017 22:22 - CONCLUSION: No acute intracranial abnormality demonstrated. Eliu Ayala MD Chest X-Ray 12/25/[id number] Signed Impressions: Service Date/Time: Monday, December 25, 2017 20:45 - CONCLUSION: No evidence of acute cardiopulmonary disease. Eliu Ayala MD Objective Remarks GENERAL: lethargic SKIN: Warm and dry. Left big toe gangrene. Dressing over right foot HEAD: Normocephalic. EYES: No scleral icterus. No injection or drainage. NECK: Supple, trachea midline. No JVD or lymphadenopathy. CARDIOVASCULAR: Regular rate and rhythm without murmurs, gallops, or rubs. RESPIRATORY: Breath sounds equal bilaterally. No accessory muscle use. GASTROINTESTINAL: Abdomen soft, non-tender, nondistended. MUSCULOSKELETAL: No cyanosis, or edema. BACK: Nontender without obvious deformity. No CVA tenderness. A/P Problem List: (1) End stage renal disease ICD Code: N18.6 - End-stage renal disease Status: Chronic (2) Ischemic ulcer diabetic foot ICD Code: E11.621 - Type 2 diabetes mellitus with foot ulcer; L97.509 - Non- pressure chronic ulcer of other part of unspecified foot with unspecified severity Status: Acute (3) Diabetes mellitus with hyperglycemia ICD Code: E11.65 - Type 2 diabetes mellitus with hyperglycemia Status: Acute (4) PAD (peripheral artery disease) ICD Code: I73.9 - Peripheral vascular disease, unspecified (5) Osteomyelitis ICD Code: M86.9 - Osteomyelitis, unspecified Status: Acute Assessment and Plan 57-year-old man with 1. Acute toxic metabolic encephalopathy/Peripheral Neuropathy/Depression CT brain negative. 2. COPD/Tobacco dependence on Symbicort 160/4.5 2 puffs inhaled twice a day 3. Hypertension/Peripheral Artery Disease status post Left posterior tibial artery angioplasty 09/24/17 Dr Ortiz Amlodipine 5 mg daily and Lisinopril 10 mg daily 4. ESRD on Hemodialysis M/W/F, Nephrology specialist following Patient will have hemodialysis today as well as tomorrow Hyperkalemia Management per nephrology; plan for hemodialysis today 5. Leukocytosis/osteomyelitis of the left foot Left second toe amputation 07/11/17 Left Posterior tibial artery angioplasty 09/24/17 I and D Left foot 09/28/17 left foot transmetatarsal amputation 09/26/17 Dr. Judge Poor wound healing and dry gangrene as well as probable wet gangrene noted ID and podiatry following Cipro 500 mg BID started 12/13/17, Diflucan 200 mg daily started 12/18/17, following blood cultures. Zosyn 2.25 grams IV q 8 hours removed Diflucan by ID specialist ID specialist and Vascular Surgery following on Zosyn, Scheduled for next Sunday12/31/17 for Bilateral angiography, possible Left BKA if no improvement 6. Anemia of chronic disease 7. DKA resolved/DM II Poorly controlled, increase Levemir to 10 units every 12 hours Give Insulin 20 units x 1 now Acute pericarditis PROPH: Heparin 5000 units subcutaneous every 12 hours for DVT prophylaxis. Protonix 40 mg by mouth daily Problem Qualifiers (1) Osteomyelitis: Qualified Codes: M86.8X7 - Other osteomyelitis, ankle and foot Emmanuel French MD Dec 29, 2017 13:59
--- NOTE | 2017-12-29 17:01 | EKG ---
Date Performed: 12/29/2017 Time Performed: 07:37:40 PTAGE: 57 years EKG: There is diffuse ST elevation inferiorly and anterolaterally, most compatible with early re polarization, although cannot exclude injury such as pericarditis Indeterminate axis Compared to prev ious tracing, these changes are new. Clinical correlation recommended. Abnormal ECG PREVIOUS TRACING : 12/26/2017 06.55 DOCTOR: Stephen Patricia Interpretating Date/Time 12/29/2017 17:00:16
--- NOTE | 2017-12-29 17:03 | EKG ---
Date Performed: 12/29/2017 Time Performed: 08:49:52 PTAGE: 57 years EKG: Indeterminate axis There is persistent ST elevation of 1-2 mm inferiorly and anterolaterall y. Cannot exclude injury such as pericarditis or myocardial infarction. Compared to previous tracing, the ST elevation is somewhat decreased. Clinical correlation recommended. Abnormal ECG PREVIOUS TRACING : 12/29/2017 07.37 DOCTOR: Stephen Patricia Interpretating Date/Time 12/29/2017 17:02:00
--- NOTE | 2017-12-29 18:53 | ECHRPT ---
Indication: PERICARDIAL EFFUSION CONCLUSIONS Normal left ventricular size. Mild concentric left ventricular hypertrophy. The left ventricular systolic function is normal with an estimated ejection fraction in the range of 55-60%. No regional wall motion abnormalities are present. There is a trivial pericardial effusion present. BP: 114 / 57 HR: Rhythm: Sinus Technical Quality:Fair FINDINGS LEFT VENTRICLE Normal left ventricular size. Mild concentric left ventricular hypertrophy. The left ventricular systolic function is normal with an estimated ejection fraction in the range of 55-60%. No regional wall motion abnormalities are present. RIGHT VENTRICLE Normal right ventricular size and systolic function. LEFT ATRIUM The left atrial size is normal. RIGHT ATRIUM The right atrial size is normal. MITRAL VALVE Structurally normal mitral valve. AORTIC VALVE Trileaflet aortic valve. TRICUSPID VALVE Structurally normal tricuspid valve. PERICARDIUM There is a trivial pericardial effusion present. Chris Heaton MD (Electronically Signed) Final Date:29 December 2017 18:52
[2017-12-29] MEDS ORDERED: SODIUM CHLORIDE 0.9% FLUSH 10 ML FLUSH IV FLUSH SCH (21:00)
[2017-12-29] MEDS ORDERED: INSULIN DETEMIR 100 UNITS/ML VIAL SQ SCH (21:00)
[2017-12-30] VITALS (21 sets, daily range): BP systolic 114–136; BP diastolic 52–68; PULSE 65–77; RESP 18; TEMP 97.9–98.4; O2SAT 94–99
[2017-12-30] MEDS: CHLORHEXIDINE GLUCONATE 2 % 1 PACK (2 CLOTHS) TOP SCH (04:00)
[2017-12-30] MEDS: LOW DOSE INSULIN NOVOLOG SUPPLEMENTAL SCALE SQ SCH ×5 (05:00→20:00)
[2017-12-30] MEDS: PIPERACIL-TAZO 2.25 GM PREMIX 50 ML IV SCH ×3 (05:06→20:14)
[2017-12-30 05:29] LABS: AUTOMATED NEUTROPHIL # 12.6 TH/MM3 (1.8-7.7); BASOPHIL % 0.3 % (0.0-2.0); EOSINOPHIL % 0.2 % (0.0-4.0); HEMATOCRIT 32.6 % (39.0-51.0); HEMOGLOBIN 9.9 GM/DL (13.0-17.0); LYMPH % 2.5 % (9.0-44.0); LYMPHOCYTE # 0.4 TH/MM3 (1.0-4.8); MEAN CELL VOLUME 77.7 FL (80.0-100.0); MEAN CORPUSCULAR HEMOGLOBIN 23.7 PG (27.0-34.0); MEAN CORPUSCULAR HGB CONC 30.5 % (32.0-36.0); MONO % 6.8 % (0.0-8.0); MONOCYTE # 0.9 TH/MM3 (0-0.9); NEUT % 90.2 % (16.0-70.0); PLATELET COUNT 285 TH/MM3 (150-450); RED CELL DISTRIBUTION WIDTH 21.1 % (11.6-17.2)
[2017-12-30 05:55] LABS: BICARBONATE 20.5 MEQ/L (21.0-32.0); CALCIUM 8.1 MG/DL (8.5-10.1); CREATININE 7.21 MG/DL (0.60-1.30)
[2017-12-30] MEDS: DOCUSATE SODIUM 50 MG/SENNA 8.6 MG TAB PO SCH ×2 (08:21→20:12)
[2017-12-30] MEDS: SEVELAMER CARBONATE 800 MG TAB PO SCH ×3 (08:21→16:42)
[2017-12-30] MEDS: CHOLECALCIFEROL (VIT D3) 1000 UNIT TAB PO SCH (08:21)
[2017-12-30] MEDS: PANTOPRAZOLE SOD 40 MG DELAYED RELEASE TAB PO SCH (08:21)
[2017-12-30] MEDS: NITROGLYCERIN 2% OINT 1 GM PACKET TOPICAL SCH ×2 (08:21→16:42)
[2017-12-30] MEDS: ASPIRIN 81 MG CHEW TAB CHEW SCH (08:21)
[2017-12-30] MEDS: METOPROLOL TARTRATE 25 MG TAB PO SCH ×2 (08:21→16:42)
[2017-12-30] MEDS: DULoxetine HCl DR 30 MG CAP PO SCH (08:21)
[2017-12-30] MEDS: amLODIPine BESYLATE 5 MG TAB PO SCH (08:21)
[2017-12-30] MEDS: SODIUM CHLORIDE 0.9% FLUSH 10 ML FLUSH IV FLUSH SCH ×2 (08:22→20:13)
[2017-12-30] MEDS: INSULIN DETEMIR 100 UNITS/ML VIAL SQ SCH ×2 (09:00→20:15)
--- NOTE | 2017-12-30 10:16 | HHI.NPPN ---
Subjective General Problems: Anemia, Diabetes Renal Failure: Chronic, End Stage Renal Disease Additional Remarks Seen on dialysis today. Ongoing fatigue. Review of Systems Musculoskeletal MS: Pain/Stiffness Skin Skin: Ulcers Skin Remarks right great toe, left MFA skin changes, non healing Objective Data Data Vital Signs Date Time Temp Pulse Resp B/P (MAP) Pulse Ox O2 Delivery O2 Flow Rate FiO2 12/30/17 08:30 97.9 76 18 135/59 (84) 96 12/30/17 08:30 96 Room Air 12/30/17 07:01 75 12/30/17 06:00 70 12/30/17 05:00 72 12/30/17 04:00 Room Air 12/30/17 04:00 67 12/30/17 04:00 98.3 67 18 114/52 (72) 99 12/30/17 03:00 69 12/30/17 02:00 65 12/30/17 01:00 68 12/30/17 00:00 67 12/30/17 00:00 98.2 67 18 114/52 (72) 99 12/30/17 00:00 Room Air 12/29/17 23:00 70 12/29/17 22:00 72 12/29/17 21:31 98 Nasal Cannula 2.00 12/29/17 21:00 69 12/29/17 20:00 97 Room Air 12/29/17 20:00 65 12/29/17 20:00 98.4 65 20 114/60 (78) 96 12/29/17 18:00 74 12/29/17 17:00 76 12/29/17 16:55 98.6 75 20 110/57 (74) 98 12/29/17 16:00 74 12/29/17 15:00 75 12/29/17 14:00 82 12/29/17 13:00 84 12/29/17 12:00 80 12/29/17 11:45 98.5 78 20 114/55 (74) 97 12/29/17 11:00 90 12/29/17 10:09 84 -: 12/30/17 0500 12/30/17 0500 Tubes & Lines Comment Ta right chest Physical Exam General Appearance: Well Developed, Well Nourished, No Acute Distress, Comfortable Eyes Eye Exam: Pupils Equal Neck Neck Exam: Neck Supple Pulmonary Resp Exam: Clear Bilaterally, Breath Sounds Equal Cardiology CV Exam: Regular, Normal Sinus Rhythm Gastrointestinal/Abdomen GI Exam: Soft, Non-Tender, Bowel Sounds Present Musculoskeletal MS Exam: Joints Intact, Good Strength Integumentary Skin Exam: Warm, Dry Extremeties Extremities Exam: No Edema, Pedal Pulses Palpable Neurologic Neuro Exam: Alert, Awake, Oriented, Speech Clear, Moving All Extremities Psychiatric Psych Exam: Appropriate Responses Assessment/Plan Discussed Condition With: Patient Assessment Summary: Anemia of CKD, Hypertension, Diabetes Mellitus, End Stage Renal Disease Problem List: (1) ESRD (end stage renal disease) ICD Codes: N18.6 - End-stage renal disease Status: Resolved Plan: HD MWF Using AVF left arm for HD Now with apparent pericarditis, did HD yesterday. Friction rub improving this morning. Apparently had missed some dialysis treatments - will do HD daily for now for uremic pericarditis (HD today, tomorrow, then Sunday) Hyperkalemia with K 5.8 in setting of glucose in 400s-500s. Suspect hyperkalemia due to potassium shifts with hyperglycemia - continue insulin management. May need insulin drip Seen on HD today, 1K bath with HD today. He has existing HD arrangements in place Avoid IVF administration, gadolinium in contraindicated High protein diet ordered with protein supplements. Repeat labs intermittently, ordered for tomorrow. (2) Osteomyelitis ICD Codes: M86.9 - Osteomyelitis, unspecified Status: Acute Plan: ID and vascular following with podiatry On Sunday scheduled for bilateral angiogram. Possible L BKA if no improvement. Vascular recommends to wait right sided amputations until after revascularization to assess for improvement Cultures are negative at this time. Continue to monitor. Unclear if we can remove the Ta; if antibiotics will be required at discharge consider leaving it in. ID assistance on this matter is appreciated. (3) PAD (peripheral artery disease) ICD Codes: I73.9 - Peripheral vascular disease, unspecified Status: Chronic Plan: See above Needs wound care to left foot/amputation site. (4) Bone metabolism disorder ICD Codes: E88.9 - Metabolic disorder, unspecified; M90.80 - Osteopathy in diseases classified elsewhere, unspecified site Status: Acute Plan: Phosphorus is very high, On high dose Renvela with meals Advised binder compliance (5) DKA (diabetic ketoacidoses) ICD Codes: E13.10 - Other specified diabetes mellitus with ketoacidosis without coma Status: Acute Plan: Hyperglycemia today - follow with primary team. A1c 10.7 halfway regimen is: Detemir 10 units subcutaneous twice a day NovoLog sliding scale Brittle DM 1 (6) HTN (hypertension) ICD Codes: I10 - Essential (primary) hypertension Status: Chronic Plan: Continue home medications, titrate as needed Permanent Comment: Last Edited By: Jasmyne Bee on Jul 11, 2017 15:31 (7) Anemia ICD Codes: D64.9 - Anemia, unspecified Plan: Epogen with dialysis (8) Hyperkalemia ICD Codes: E87.5 - Hyperkalemia Status: Acute Plan: Secondary to hyperglycemia. Continue to monitor. Problem Qualifiers (1) Osteomyelitis: Qualified Codes: M86.8X7 - Other osteomyelitis, ankle and foot (2) DKA (diabetic ketoacidoses): Qualified Codes: E10.11 - Type 1 diabetes mellitus with ketoacidosis with coma (3) Anemia: Qualified Codes: N18.6 - End stage renal disease; D63.1 - Anemia in chronic kidney disease; Z99.2 - Dependence on renal dialysis Roosevelt Billings MD Dec 30, 2017 10:16
--- NOTE | 2017-12-30 11:03 | HHI.PR ---
Subjective Remarks Follow-up acute pericarditis/uncontrolled diabetes type 2/osteomyelitis/chest pain/end-stage renal disease 12/29/17-patient seen and examined, status post angio this a.m., lethargic. Case discussed with nephrology who will plan for hemodialysis today. Blood glucose elevated 12/30/17-patient seen and examined, still lethargic. Hemodialysis disease a.m. Blood glucose still elevated. Afebrile Objective Vitals Vital Signs Date Time Temp Pulse Resp B/P (MAP) Pulse Ox O2 Delivery O2 Flow Rate FiO2 12/30/17 08:30 97.9 76 18 135/59 (84) 96 12/30/17 08:30 96 Room Air 12/30/17 07:01 75 12/30/17 06:00 70 12/30/17 05:00 72 12/30/17 04:00 Room Air 12/30/17 04:00 67 12/30/17 04:00 98.3 67 18 114/52 (72) 99 12/30/17 03:00 69 12/30/17 02:00 65 12/30/17 01:00 68 12/30/17 00:00 67 12/30/17 00:00 98.2 67 18 114/52 (72) 99 12/30/17 00:00 Room Air 12/29/17 23:00 70 12/29/17 22:00 72 12/29/17 21:31 98 Nasal Cannula 2.00 12/29/17 21:00 69 12/29/17 20:00 97 Room Air 12/29/17 20:00 65 12/29/17 20:00 98.4 65 20 114/60 (78) 96 12/29/17 18:00 74 12/29/17 17:00 76 12/29/17 16:55 98.6 75 20 110/57 (74) 98 12/29/17 16:00 74 12/29/17 15:00 75 12/29/17 14:00 82 12/29/17 13:00 84 12/29/17 12:00 80 12/29/17 11:45 98.5 78 20 114/55 (74) 97 I/O 3/17/18 3/17/18 3/17/18 3/18/18 3/18/18 3/18/18 07:00 15:00 23:00 07:00 15:00 23:00 Intake Total 240 ml 100 ml 240 ml 290 ml Output Total 0 ml 700 ml 0 ml Balance 240 ml 100 ml -460 ml 290 ml Intake Oral 240 ml 240 ml 240 ml IV Total 100 ml 50 ml Output Urine Total 0 ml 0 ml 0 ml Hemodialysis 700 ml # Bowel Movements 0 0 Result Diagram: 12/30/17 0500 12/30/17 0500 Objective Remarks GENERAL: lethargic SKIN: Warm and dry. Left big toe gangrene. Dressing over right foot HEAD: Normocephalic. EYES: No scleral icterus. No injection or drainage. NECK: Supple, trachea midline. No JVD or lymphadenopathy. CARDIOVASCULAR: Regular rate and rhythm without murmurs, gallops, or rubs. RESPIRATORY: Breath sounds equal bilaterally. No accessory muscle use. GASTROINTESTINAL: Abdomen soft, non-tender, nondistended. MUSCULOSKELETAL: No cyanosis, or edema. BACK: Nontender without obvious deformity. No CVA tenderness. A/P Problem List: (1) End stage renal disease ICD Code: N18.6 - End-stage renal disease Status: Chronic (2) Ischemic ulcer diabetic foot ICD Code: E11.621 - Type 2 diabetes mellitus with foot ulcer; L97.509 - Non- pressure chronic ulcer of other part of unspecified foot with unspecified severity Status: Acute (3) Diabetes mellitus with hyperglycemia ICD Code: E11.65 - Type 2 diabetes mellitus with hyperglycemia Status: Acute (4) PAD (peripheral artery disease) ICD Code: I73.9 - Peripheral vascular disease, unspecified (5) Osteomyelitis ICD Code: M86.9 - Osteomyelitis, unspecified Status: Acute Assessment and Plan 57-year-old man with 1. Acute toxic metabolic encephalopathy/Peripheral Neuropathy/Depression CT brain negative. 2. COPD/Tobacco dependence on Symbicort 160/4.5 2 puffs inhaled twice a day 3. Hypertension/Peripheral Artery Disease status post Left posterior tibial artery angioplasty 09/24/17 Dr Ortiz Amlodipine 5 mg daily and Lisinopril 10 mg daily 4. ESRD on Hemodialysis M/W/F, Nephrology specialist following Hyperkalemia Management per nephrology; plan for hemodialysis today 12/30/17 5. Leukocytosis/osteomyelitis of the left foot Left second toe amputation 07/11/17 Left Posterior tibial artery angioplasty 09/24/17 I and D Left foot 09/28/17 left foot transmetatarsal amputation 09/26/17 Dr. Judge Poor wound healing and dry gangrene as well as probable wet gangrene noted ID and podiatry following Cipro 500 mg BID started 12/13/17, Diflucan 200 mg daily started 12/18/17, following blood cultures. Zosyn 2.25 grams IV q 8 hours removed Diflucan by ID specialist ID specialist and Vascular Surgery following on Zosyn, Scheduled for tomorrow Sunday12/31/17 for Bilateral angiography, possible Left BKA if no improvement 6. Anemia of chronic disease 7. DKA resolved/DM II Poorly controlled, increase Levemir to 20 units every 12 hours STEMI on 12/29/17 [facility] without any stent placement Acute pericarditis PROPH: Heparin 5000 units subcutaneous every 12 hours for DVT prophylaxis. Protonix 40 mg by mouth daily Problem Qualifiers (1) Osteomyelitis: Qualified Codes: M86.8X7 - Other osteomyelitis, ankle and foot Emmanuel French MD Dec 30, 2017 11:03
--- NOTE | 2017-12-30 12:50 | EKG ---
Date Performed: 12/30/2017 Time Performed: 06:43:00 PTAGE: 57 years EKG: Inferior and anterolateral ST elevation which appears more like either pericarditis or jenaro y repolarization than injury, as it is very widespread and has the typical pattern of either pericard itis or early repolarization. Cannot completely exclude myocardial infarction, however. Since previou s tracing, no significant change noted. Clinical correlation recommended. Abnormal ECG PREVIOUS TRACING : 12/29/2017 08.49 DOCTOR: Stephen Patricia Interpretating Date/Time 12/30/2017 12:50:01
--- NOTE | 2017-12-30 16:22 | PD.CARD.PN ---
Subjective Subjective Remarks No angina or SOB, mild confusion Objective Medications Current Medications Medications (Trade) Dose Ordered Sig/April Route Start Time Stop Time Status Last Admin (NS Flush) 2 ml UNSCH PRN IV FLUSH 12/26/17 01:45 (NS Flush) 2 ml BID IV FLUSH 12/26/17 09:00 12/30/17 08:22 (Protonix) 40 mg DAILY PO 12/26/17 09:00 12/30/17 08:21 (Zofran Inj) 4 mg Q6H PRN IV PUSH 12/26/17 01:45 Miscellaneous Information 1 Q361D XX 12/26/17 01:45 12/26/17 01:45 (Chlorhexidine 2% Cloth) 3 pack Taper DAILY@04 TOP 12/26/17 04:00 12/22/18 03:59 12/30/17 04:00 (Chlorhexidine 2% Cloth) 3 pack UNSCH PRN TOP 12/26/17 01:45 (Odette-Colace) 1 tab BID PO 12/26/17 09:00 12/30/17 08:21 (Milk Of Magnesia Liq) 30 ml Q12H PRN PO 12/26/17 01:45 (Senokot) 17.2 mg Q12H PRN PO 12/26/17 01:45 (Dulcolax Supp) 10 mg DAILY PRN RECTAL 12/26/17 01:45 (Lactulose Liq) 30 ml DAILY PRN PO 12/26/17 01:45 (Symbicort 160-4.5 Mcg Inh) 1 puff Q12HR INH 12/26/17 09:00 12/29/17 20:41 (Vitamin D3) 1,000 units DAILY PO 12/26/17 09:00 12/30/17 08:21 (Norvasc) 5 mg DAILY PO 12/26/17 09:00 12/30/17 08:21 (Cymbalta Dr) 30 mg DAILY PO 12/26/17 09:00 12/30/17 08:21 (Albuterol Neb) 2.5 mg Q2HR NEB PRN NEB 12/26/17 07:15 Piperacillin Sod/ Tazobactam Sod 50 ml @ 100 mls/hr Q8H IV 12/26/17 12:00 12/30/17 12:15 (D50w (Vial) Inj) 50 ml UNSCH PRN IV PUSH 12/26/17 13:00 (Glucagon Inj) 1 mg UNSCH PRN OTHER 12/26/17 13:00 (NovoLOG SUPPLEMENTAL SCALE) 1 Q4HR SQ 12/26/17 12:47 12/30/17 05:00 Sodium Chloride 1,000 ml @ 0 mls/hr Q0M PRN OTHER 12/26/17 13:45 (Heparin Inj) 8,000 units UNSCH PRN IV FLUSH 12/26/17 13:45 Sodium Chloride 1,000 ml @ 200 mls/hr Q5H PRN IV 12/26/17 13:45 Sodium Chloride 1,000 ml @ 0 mls/hr Q0M PRN OTHER 12/26/17 13:45 (Mannitol Inj) 12.5 gm UNSCH PRN IV 12/26/17 13:45 Albumin Human 100 ml @ 60 mls/hr UNSCH PRN IV 12/26/17 13:45 (NS Flush) 5 ml UNSCH PRN IV FLUSH 12/26/17 13:45 (Heparin Inj) UNSCH PRN .XX 12/26/17 13:45 (Gentamicin Inj) 20 mg UNSCH PRN OTHER 12/26/17 13:45 (Zofran Inj) 4 mg UNSCH PRN IV PUSH 12/26/17 13:45 (Tylenol) 650 mg UNSCH PRN PO 12/26/17 13:45 (Benadryl) 25 mg UNSCH PRN PO 12/26/17 13:45 (Nitrostat Sl) 0.4 mg UNSCH PRN SL 12/26/17 13:45 12/29/17 08:05 (Catapres) 0.1 mg UNSCH PRN PO 12/26/17 13:45 (Epogen Inj) 10,000 units UNSCH PRN IV PUSH 12/26/17 13:45 12/28/17 15:42 (Gelfoam 12 Mm/7 Mm Top) 1 foam UNSCH PRN TOP 12/26/17 13:45 12/28/17 15:42 (Aspirin Chew) 81 mg DAILY CHEW 12/26/17 15:00 12/30/17 08:21 (Morphine Inj) 2 mg Q3H PRN IV 12/26/17 17:15 12/29/17 20:33 (Woodworth 7.5-325 Mg) 1 tab Q4H PRN PO 12/27/17 12:15 12/28/17 17:55 (Renvela) 2,400 mg TIDAC PO 12/27/17 17:00 12/30/17 08:21 (Lopressor) 25 mg Q8H PO 12/29/17 08:00 12/30/17 08:21 (Nitroglycerin 2% Oint) 1 inch Q8H TOPICAL 12/29/17 08:00 12/30/17 08:21 (Aspirin) 325 mg BEAN PICKER MACHINE OPERATOR PO 12/29/17 09:00 01/02/18 08:59 (fentaNYL INJ) 50 mcg BEAN PICKER MACHINE OPERATOR IV PUSH 12/29/17 09:00 01/02/18 08:59 (Versed Inj) 1 mg BEAN PICKER MACHINE OPERATOR IV PUSH 12/29/17 09:00 01/02/18 08:59 (Atropine Inj) 0.5 mg UNSCH PRN IV PUSH 12/29/17 09:45 (Toradol Inj) 15 mg Q8HR PRN IM 12/29/17 10:00 01/03/18 09:59 (Levemir Inj) 20 units Q12HR SQ 12/30/17 09:00 12/30/17 09:00 Vital Signs / I&O Vital Signs Date Time Temp Pulse Resp B/P (MAP) Pulse Ox O2 Delivery O2 Flow Rate FiO2 12/30/17 15:45 98.1 75 18 130/65 (86) 97 12/30/17 14:01 74 12/30/17 11:45 98.1 71 18 136/60 (85) 94 12/30/17 09:00 72 12/30/17 08:30 97.9 76 18 135/59 (84) 96 12/30/17 08:30 96 Room Air 12/30/17 08:00 76 12/30/17 07:01 75 12/30/17 06:00 70 12/30/17 05:00 72 12/30/17 04:00 Room Air 12/30/17 04:00 67 12/30/17 04:00 98.3 67 18 114/52 (72) 99 12/30/17 03:00 69 12/30/17 02:00 65 12/30/17 01:00 68 12/30/17 00:00 67 12/30/17 00:00 98.2 67 18 114/52 (72) 99 12/30/17 00:00 Room Air 12/29/17 23:00 70 12/29/17 22:00 72 12/29/17 21:31 98 Nasal Cannula 2.00 12/29/17 21:00 69 12/29/17 20:00 97 Room Air 12/29/17 20:00 65 12/29/17 20:00 98.4 65 20 114/60 (78) 96 12/29/17 18:00 74 12/29/17 17:00 76 12/29/17 16:55 98.6 75 20 110/57 (74) 98 I/O 12/29/17 12/29/17 12/29/17 12/30/17 12/30/17 12/30/17 07:00 15:00 23:00 07:00 15:00 23:00 Intake Total 240 ml 100 ml 240 ml 290 ml 50 ml Output Total 0 ml 700 ml 0 ml 2000 ml Balance 240 ml 100 ml -460 ml 290 ml -1950 ml Intake Oral 240 ml 240 ml 240 ml IV Total 100 ml 50 ml 50 ml Output Urine Total 0 ml 0 ml 0 ml Hemodialysis 700 ml 2000 ml # Bowel Movements 0 0 Physical Exam GENERAL: In NAD. SKIN: Warm and dry. HEAD: Normocephalic. EYES: No scleral icterus. No injection or drainage. NECK: Supple, trachea midline. No JVD or lymphadenopathy. CARDIOVASCULAR: Regular rate and rhythm without murmurs, gallops, or rubs. RESPIRATORY: Breath sounds equal bilaterally. No accessory muscle use. GASTROINTESTINAL: Abdomen soft, non-tender, nondistended. MUSCULOSKELETAL: No cyanosis, mild edema. S/p L foot TMT amputation Laboratory Laboratory Tests Test 12/30/17 05:00 White Blood Count 14.0 TH/MM3 Red Blood Count 4.20 MIL/MM3 Hemoglobin 9.9 GM/DL Hematocrit 32.6 % Mean Corpuscular Volume 77.7 FL Mean Corpuscular Hemoglobin 23.7 PG Mean Corpuscular Hemoglobin Concent 30.5 % Red Cell Distribution Width 21.1 % Platelet Count 285 TH/MM3 Mean Platelet Volume 9.0 FL Neutrophils (%) (Auto) 90.2 % Lymphocytes (%) (Auto) 2.5 % Monocytes (%) (Auto) 6.8 % Eosinophils (%) (Auto) 0.2 % Basophils (%) (Auto) 0.3 % Neutrophils # (Auto) 12.6 TH/MM3 Lymphocytes # (Auto) 0.4 TH/MM3 Monocytes # (Auto) 0.9 TH/MM3 Eosinophils # (Auto) 0.0 TH/MM3 Basophils # (Auto) 0.0 TH/MM3 CBC Comment DIFF FINAL Differential Comment Blood Urea Nitrogen 59 MG/DL Creatinine 7.21 MG/DL Random Glucose 422 MG/DL Calcium Level 8.1 MG/DL Sodium Level 134 MEQ/L Potassium Level 5.8 MEQ/L Chloride Level 91 MEQ/L Carbon Dioxide Level 20.5 MEQ/L Anion Gap 23 MEQ/L Estimat Glomerular Filtration Rate 10 ML/MIN Assessment and Plan Problem List: (1) Chest pain ICD Codes: R07.9 - Chest pain, unspecified Status: Acute Permanent Comment: Patient poor historian. Findings are most c/w acute pericarditis. AMI needs exclusion. Last Edited By: Dima Patel on Dec 29, 2017 08:51 (2) Pericarditis ICD Codes: I31.9 - Disease of pericardium, unspecified (3) Elevated troponin ICD Codes: R74.8 - Abnormal levels of other serum enzymes (4) Cardiomyopathy ICD Codes: I42.9 - Cardiomyopathy, unspecified (5) Altered mental status ICD Codes: R41.82 - Altered mental status, unspecified (6) ESRD on hemodialysis ICD Codes: N18.6 - End stage renal disease; Z99.2 - Dependence on renal dialysis Status: Chronic (7) COPD (chronic obstructive pulmonary disease) ICD Codes: J44.9 - Chronic obstructive pulmonary disease, unspecified Status: Chronic (8) DKA (diabetic ketoacidoses) ICD Codes: E13.10 - Other specified diabetes mellitus with ketoacidosis without coma Status: Acute (9) DM (diabetes mellitus) ICD Codes: E11.9 - Type 2 diabetes mellitus without complications Status: Chronic (10) HTN (hypertension) ICD Codes: I10 - Essential (primary) hypertension Status: Chronic Permanent Comment: Last Edited By: Jasmyne Bee on Jul 11, 2017 15:31 (11) Cellulitis of foot, left ICD Codes: L03.116 - Cellulitis of left lower limb Status: Acute (12) Osteomyelitis ICD Codes: M86.9 - Osteomyelitis, unspecified Status: Acute Assessment and Plan Cath yest for diffuse ST elevation, diagnosed with pericarditis. No significant obstructive CAD. Troponin slightly elevated, likely secondary to ESRD. Echo with moderate LV systolic dysfunction. Continue abx for foot osteomyelitis, podiatric eval in progress. Continue monitoring, increase activity, PT. Problem Qualifiers (1) Altered mental status: Qualified Codes: R41.82 - Altered mental status, unspecified (2) DKA (diabetic ketoacidoses): Qualified Codes: E10.11 - Type 1 diabetes mellitus with ketoacidosis with coma (3) Osteomyelitis: Qualified Codes: M86.8X7 - Other osteomyelitis, ankle and foot Quadrat,Amrit VALENZUELA Dec 30, 2017 16:22
[2017-12-30] MEDS: BUDESONIDE-FORMOTEROL 160/4.5 MCG INHALER INH SCH (20:14)
[2017-12-30] MEDS: MORPHINE SULFATE 2 MG/ML INJ IV PRN (21:19)
[2017-12-31] VITALS (24 sets, daily range): BP systolic 122–149; BP diastolic 53–75; PULSE 60–95; RESP 16–18; TEMP 97.5–98.6; O2SAT 93–98
[2017-12-31] MEDS ORDERED: CHLORHEXIDINE GLUCONATE 2 % 1 PACK (2 CLOTHS) TOPICAL PRN (00:45)
[2017-12-31] MEDS ORDERED: SODIUM CHLORID 0.9% 500 ML IV PRN (00:45)
[2017-12-31] MEDS ORDERED: LACTATED RINGER'S 1000 ML IV PRN (00:45)
[2017-12-31] MEDS ORDERED: POVIDONE IODINE 5% (ANTISEPSIS KIT) 4 APPLICATIONS EACH NARE PRN (00:45)
[2017-12-31] MEDS: NITROGLYCERIN 2% OINT 1 GM PACKET TOPICAL SCH ×3 (01:02→18:51)
[2017-12-31] MEDS: METOPROLOL TARTRATE 25 MG TAB PO SCH ×3 (01:02→18:52)
[2017-12-31] MEDS: MORPHINE SULFATE 2 MG/ML INJ IV PRN ×2 (01:03→04:45)
[2017-12-31] MEDS: PIPERACIL-TAZO 2.25 GM PREMIX 50 ML IV SCH ×2 (03:49→11:19)
[2017-12-31] MEDS: CHLORHEXIDINE GLUCONATE 2 % 1 PACK (2 CLOTHS) TOP SCH (04:00)
[2017-12-31] MEDS: LOW DOSE INSULIN NOVOLOG SUPPLEMENTAL SCALE SQ SCH ×6 (04:00→20:00)
[2017-12-31] MEDS ORDERED: HEPARIN SODIUM - IV 10,000 UNITS/10 ML VIAL ONE (06:54)
[2017-12-31] MEDS ORDERED: HEPARIN-NS/PF INJ 500 ML ONE ×2 (06:54→08:52)
[2017-12-31] MEDS ORDERED: VANCOMYCIN HCL 1000 MG VIAL ONE (06:54)
[2017-12-31] MEDS ORDERED: PROTAMINE SULFATE 50 MG/5 ML VIAL ONE (06:54)
[2017-12-31 07:06] LABS: AUTOMATED NEUTROPHIL # 8.7 TH/MM3 (1.8-7.7); BASOPHIL # 0.1 TH/MM3 (0-0.2); BASOPHIL % 0.5 % (0.0-2.0); EOSINOPHIL # 0.2 TH/MM3 (0-0.4); EOSINOPHIL % 1.7 % (0.0-4.0); HEMATOCRIT 32.4 % (39.0-51.0); HEMOGLOBIN 10.2 GM/DL (13.0-17.0); LYMPH % 6.8 % (9.0-44.0); LYMPHOCYTE # 0.7 TH/MM3 (1.0-4.8); MEAN CELL VOLUME 74.8 FL (80.0-100.0); MEAN CORPUSCULAR HEMOGLOBIN 23.5 PG (27.0-34.0); MEAN CORPUSCULAR HGB CONC 31.4 % (32.0-36.0); MEAN PLATELET VOLUME 8.6 FL (7.0-11.0); MONO % 11.3 % (0.0-8.0); MONOCYTE # 1.2 TH/MM3 (0-0.9); NEUT % 79.7 % (16.0-70.0); PLATELET COUNT 316 TH/MM3 (150-450); RED BLOOD COUNT 4.33 MIL/MM3 (4.50-5.90); RED CELL DISTRIBUTION WIDTH 21.3 % (11.6-17.2); WHITE BLOOD COUNT 10.9 TH/MM3 (4.0-11.0)
[2017-12-31] MEDS ORDERED: fentaNYL CITRATE 250 MCG/5 ML AMP ONE (07:22)
[2017-12-31 07:27] LABS: BICARBONATE 28.6 MEQ/L (21.0-32.0); CALCIUM 8.1 MG/DL (8.5-10.1); CREATININE 6.66 MG/DL (0.60-1.30)
--- NOTE | 2017-12-31 07:31 | PD.VS.PN ---
Pre-operative Note Pre-operative diagnosis: PAD, B LE tissue loss Planned procedure: Aortogram w/ B LE angiogram B LE interventions Interval History: Pt has been persistently hyperglycemic but otherwise no changes to preclude OR. Specifically, no F/C or leukocytosis. Labs: Laboratory Results Test 12/31/17 06:45 Anion Gap 14 MEQ/L (5-15) Blood Urea Nitrogen 56 MG/DL (7-18) Creatinine 6.66 MG/DL (0.60-1.30) Random Glucose 176 MG/DL (74-106) Calcium Level 8.1 MG/DL (8.5-10.1) Sodium Level 136 MEQ/L (136-145) Potassium Level 4.1 MEQ/L (3.5-5.1) Chloride Level 93 MEQ/L (98-107) Carbon Dioxide Level 28.6 MEQ/L (21.0-32.0) Hematocrit 32.4 % (39.0-51.0) Hemoglobin 10.2 GM/DL (13.0-17.0) Mean Corpuscular Hemoglobin 23.5 PG (27.0-34.0) Mean Corpuscular Hemoglobin Concent 31.4 % (32.0-36.0) Mean Corpuscular Volume 74.8 FL (80.0-100.0) Mean Platelet Volume 8.6 FL (7.0-11.0) Platelet Count 316 TH/MM3 (150-450) Red Blood Count 4.33 MIL/MM3 (4.50-5.90) Red Cell Distribution Width 21.3 % (11.6-17.2) White Blood Count 10.9 TH/MM3 (4.0-11.0) Blood: none needed Imaging: Last Impressions Foot X-Ray 12/26/17 0000 Signed Impressions: Service Date/Time: Tuesday, December 26, 2017 07:29 - CONCLUSION: 1. Findings concerning for osteomyelitis involving the tuft of the first toe. Phani Vasquez MD Head CT [id number] Signed Impressions: Service Date/Time: Monday, December 25, 2017 22:22 - CONCLUSION: No acute intracranial abnormality demonstrated. Eliu Ayala MD Chest X-Ray 12/[id number]/[id number] Signed Impressions: Service Date/Time: Monday, December 25, 2017 20:45 - CONCLUSION: No evidence of acute cardiopulmonary disease. Elui Ayala MD Orders: NPO On systemic antibiotics. Post-operative destination: PACU Operative site marked: No (bilateral procedure) Consent: Informed consent has been obtained from Anatoliy Aguilera. I have explained the procedure in detail and discussed the risks, benefits, and potential complications. All questions have been answered. Randy Ortiz MD Dec 31, 2017 07:31
[2017-12-31] MEDS ORDERED: IOHEXOL 300 INJ 50 ML IV ONE (08:00)
[2017-12-31] MEDS: SEVELAMER CARBONATE 800 MG TAB PO SCH ×3 (08:00→19:11)
[2017-12-31] MEDS: SODIUM CHLORIDE 0.9% FLUSH 10 ML FLUSH IV FLUSH SCH ×2 (09:00→21:20)
--- NOTE | 2017-12-31 09:41 | HHI.PR ---
cc: Randy Ortiz MD Immediate Post Op Note Procedure Date: Dec 31, 2017 Pre Op Diagnosis: B LE PAD, B tissue loss Post Op Diagnosis: B LE PAD, B tissue loss Surgeon: Randy Ortiz Senior Web Developer(s): Randy Valdez Procedure: 1. Aortogram w/ B LE angiogram 2. L AT SNAKE CHARMER (3mm) 3. L PT SNAKE CHARMER (2.5-3mm) 4. R PT SNAKE CHARMER (2.5-3mm) 5. B LICENSED PRACTICAL NURSE INSTRUCTOR Angioseal Findings: 1. LEFT: patent inflow to a very diseased perimalleolar PT, which was SNAKE CHARMER with modest result 2. LEFT: AT inflow stenosis, successful SNAKE CHARMER but distal AT occlusion 3. RIGHT: AT runoff to pedal arch 4. RIGHT: PT with serial high grade stenoses, successful PT and now arch filling from AT and PT Additional Information: 1. Will need L BKA if TMA doesn't heal 2. Wound care to R toe Complications: none Specimen(s) removed: none Estimated blood loss: 10mL Anesthesia: LMA Drains: None Fluids: 500mL IVF Patient to: PACU Patient Condition: Good Implant/Devices: SEE IMPLANT LOG (if applicable) Date/Time of Procedure: SEE SURGICAL CARE RECORD Randy Ortiz MD Dec 31, 2017 09:41
[2017-12-31] MEDS ORDERED: DO NOT ADM ANY ANTICOAGULANT DRUGS PRN (10:15)
[2017-12-31] MEDS: amLODIPine BESYLATE 5 MG TAB PO SCH (11:25)
[2017-12-31] MEDS: CHOLECALCIFEROL (VIT D3) 1000 UNIT TAB PO SCH (11:25)
[2017-12-31] MEDS: PANTOPRAZOLE SOD 40 MG DELAYED RELEASE TAB PO SCH (11:25)
[2017-12-31] MEDS: DULoxetine HCl DR 30 MG CAP PO SCH (11:25)
[2017-12-31] MEDS: ASPIRIN 81 MG CHEW TAB CHEW SCH (11:25)
[2017-12-31] MEDS: DOCUSATE SODIUM 50 MG/SENNA 8.6 MG TAB PO SCH ×2 (11:25→21:00)
[2017-12-31] MEDS ORDERED: IOHEXOL 350 MG/ML 50 ML BTL (for Cath Lab) OTHER ONE (11:36)
--- NOTE | 2017-12-31 11:40 | HHI.PR ---
Subjective Remarks Follow-up acute pericarditis/uncontrolled diabetes type 2/osteomyelitis/chest pain/end-stage renal disease 12/29/17-patient seen and examined, status post angio this a.m., lethargic. Case discussed with nephrology who will plan for hemodialysis today. Blood glucose elevated 12/30/17-patient seen and examined, still lethargic. Hemodialysis disease a.m. Blood glucose still elevated. Afebrile 12/31/17-patient seen and examined, he had angio this AM. Stable Objective Vitals Vital Signs Date Time Temp Pulse Resp B/P (MAP) Pulse Ox O2 Delivery O2 Flow Rate FiO2 12/31/17 09:47 97.6 76 15 129/65 (86) 100 Nasal Cannula 3 12/31/17 07:15 Room Air 12/31/17 07:00 75 12/31/17 06:00 69 12/31/17 05:00 74 12/31/17 04:00 73 12/31/17 04:00 98.0 73 18 128/60 (82) 96 12/31/17 03:00 74 12/31/17 02:00 65 12/31/17 01:00 74 12/31/17 00:00 Room Air 12/31/17 00:00 98.1 82 18 128/71 (90) 96 12/31/17 00:00 82 12/30/17 23:00 71 12/30/17 22:00 65 12/30/17 21:00 74 12/30/17 20:00 98.4 77 18 128/68 (88) 97 12/30/17 20:00 96 Room Air 12/30/17 20:00 77 12/30/17 17:01 74 12/30/17 16:00 74 12/30/17 15:45 98.1 75 18 130/65 (86) 97 12/30/17 15:00 74 12/30/17 14:01 74 12/30/17 11:45 98.1 71 18 136/60 (85) 94 I/O 12/30/17 12/30/17 12/30/17 12/31/17 12/31/17 12/31/17 07:00 15:00 23:00 07:00 15:00 23:00 Intake Total 290 ml 50 ml 720 ml 104 ml 500 ml Output Total 0 ml 2000 ml 10 ml Balance 290 ml -1950 ml 720 ml 104 ml 490 ml Intake Oral 240 ml 720 ml IV Total 50 ml 50 ml 104 ml Other 500 ml Output Urine Total 0 ml Hemodialysis 2000 ml Estimated Blood Loss 10 ml # Voids 0 # Bowel Movements 0 0 Result Diagram: 12/31/17 0645 12/31/17 0645 Objective Remarks GENERAL: lethargic SKIN: Warm and dry. Left big toe gangrene. Dressing over right foot HEAD: Normocephalic. EYES: No scleral icterus. No injection or drainage. NECK: Supple, trachea midline. No JVD or lymphadenopathy. CARDIOVASCULAR: Regular rate and rhythm without murmurs, gallops, or rubs. RESPIRATORY: Breath sounds equal bilaterally. No accessory muscle use. GASTROINTESTINAL: Abdomen soft, non-tender, nondistended. MUSCULOSKELETAL: No cyanosis, or edema. BACK: Nontender without obvious deformity. No CVA tenderness. A/P Problem List: (1) End stage renal disease ICD Code: N18.6 - End-stage renal disease Status: Chronic (2) Ischemic ulcer diabetic foot ICD Code: E11.621 - Type 2 diabetes mellitus with foot ulcer; L97.509 - Non- pressure chronic ulcer of other part of unspecified foot with unspecified severity Status: Acute (3) Diabetes mellitus with hyperglycemia ICD Code: E11.65 - Type 2 diabetes mellitus with hyperglycemia Status: Acute (4) PAD (peripheral artery disease) ICD Code: I73.9 - Peripheral vascular disease, unspecified (5) Osteomyelitis ICD Code: M86.9 - Osteomyelitis, unspecified Status: Acute Assessment and Plan 57-year-old man with 1. Acute toxic metabolic encephalopathy/Peripheral Neuropathy/Depression CT brain negative. 2. COPD/Tobacco dependence on Symbicort 160/4.5 2 puffs inhaled twice a day 3. Hypertension/Peripheral Artery Disease status post Left posterior tibial artery angioplasty 09/24/17 Dr Ortiz Amlodipine 5 mg daily and Lisinopril 10 mg daily 4. ESRD on Hemodialysis M/W/F, Nephrology specialist following Hyperkalemia-Resolved 5. Leukocytosis/osteomyelitis of the left foot Left second toe amputation 07/11/17 Left Posterior tibial artery angioplasty 09/24/17 I and D Left foot 09/28/17 left foot transmetatarsal amputation 09/26/17 Dr. Popelka Poor wound healing and dry gangrene as well as probable wet gangrene noted ID and podiatry ff Currently on Zosyn 2.25 grams IV q 8 hours ID specialist and Vascular Surgery following on Zosyn, s/p Bilateral angiography this AM 12/31/17, possible Left BKA if no improvement 6. Anemia of chronic disease 7. DKA resolved/DM II On Levemir 20 units every 12 hours STEMI on 12/29/17 [facility] without any stent placement Acute pericarditis PROPH: Heparin 5000 units subcutaneous every 12 hours for DVT prophylaxis. Protonix 40 mg by mouth daily Problem Qualifiers (1) Osteomyelitis: Qualified Codes: M86.8X7 - Other osteomyelitis, ankle and foot Emmanule French MD Dec 31, 2017 11:40
[2017-12-31] MEDS: INSULIN DETEMIR 100 UNITS/ML VIAL SQ SCH ×2 (11:53→21:00)
[2017-12-31] MEDS ORDERED: GLYCOPYRROLATE 1 MG/5 ML SYRINGE IV PUSH ONE (12:00)
[2017-12-31] MEDS ORDERED: NEOSTIGMINE 5 MG/5 ML SYRINGE IV PUSH ONE (12:00)
[2017-12-31] MEDS ORDERED: ROCURONIUM INJ 50 MG/5 ML SYRINGE IV PUSH ONE (12:00)
[2017-12-31] MEDS ORDERED: PHENYLEPH/NS 1000 MCG/10 ML SYR IV ONE (12:00)
[2017-12-31] MEDS ORDERED: ONDANSETRON HCL 4 MG/2 ML VIAL IV ONE (12:00)
[2017-12-31] MEDS ORDERED: ePHEDrine/NS 25 MG/5 ML SYRINGE IV ONE (12:00)
[2017-12-31] MEDS ORDERED: LIDOCAINE HCL 1% PF 5 ML SYRINGE OTHER ONE (12:00)
[2017-12-31] MEDS ORDERED: SODIUM CHLORID 0.9% 500 ML INJ 500 ML IV ONE (12:00)
[2017-12-31] MEDS ORDERED: PROPOFOL 200 MG/20 ML AMP IV ONE (12:00)
--- NOTE | 2017-12-31 13:20 | HHI.IDPN ---
Subjective Subjective Remarks Pt is known to me is a 57 y/o AAM PMH of ESRD on HD M/W/F, DM, PAD, PVD, HTN, COPD, tobacco abuse presented from [facility] with decreased mental status. CT brain was negative. He was in DKA with glucose 706 and anion gap 23. Potassium 6.9. Dr. Anrett discussed with Nephrology and arranged for hemodialysis and consulted [facility] for admission. Of note his PMHx is also significant for multiple feet surgeries and h/o angioplasty as below: Left second toe amputation L second toe amputation 07/11/17 L posterior tibial artery angioplasty 09/24/17 () I and D L foot 09/28/17 Left foot transmetatarsal amputation 09/26/17 (Dr. Judge) Patient was last seen by Infectious Disease in October 2017, it appears a HD cath was placed for Unasyn for IV access for antibiotics. Not sure if patient was on antibiotics prior to admission will check with . Patient had a Ta cath present on admission. Patient has grown E.faecalis in recent past. Patient also grew MRSA prior to that admission. It appears Unasyn IV was ordered until Nov 07, 2017. From review of notes it appears at [facility] patient was on Cipro and Diflucan. Upon arrival in the emergency department patient's temperature was 98.9, heart rate 63, blood pressure 115/46 was on room air. Labs were grossly abnormal with WBC 12.2, H&H 9.2, 31.8, platelets 198, creatinine of 14.59, BUNs of 150, glucose of 708. Punch Machine Hand saw the patient and patient was admitted to the ICU and was on an insulin drip overnight. At the time of my evaluation patient is in the ICU, not on any pressors, currently off insulin drip due to reported blood sugar of 100 concern for hypoglycemia. At the time of my evaluation patient was confused, not oriented to time place and person unsure this is a residual effect of the hypoglycemia or this is sepsis related. ID consulted for evaluation and Mment of Sepsis, Osteomyelitis. Overnight events reviewed No fevers No rash No diarrhea Much more awake and responsive. Denies headache and neck pain. Pt co tender 1-3 R finger tips and 2 rd L finger tip x 1-2 weeks Also L hallux tender, discoloured blood clx remian negative Antibiotics Zosyn IV Lines Line sites with no e.o infection Past Medical History reviewed Allergies: Coded Allergies: No Known Allergies (Verified Allergy, Unknown, 10/16/17) Objective . Vital Signs Date Time Temp Pulse Resp B/P (MAP) Pulse Ox O2 Delivery O2 Flow Rate FiO2 12/31/17 12:30 71 18 131/63 (85) 96 12/31/17 12:06 93 21 12/31/17 10:30 71 18 131/64 (86) 97 12/31/17 09:47 97.6 76 15 129/65 (86) 100 Nasal Cannula 3 12/31/17 07:15 Room Air 12/31/17 07:00 75 12/31/17 06:00 69 12/31/17 05:00 74 12/31/17 04:00 73 12/31/17 04:00 98.0 73 18 128/60 (82) 96 12/31/17 03:00 74 12/31/17 02:00 65 12/31/17 01:00 74 12/31/17 00:00 Room Air 12/31/17 00:00 98.1 82 18 128/71 (90) 96 12/31/17 00:00 82 12/30/17 23:00 71 12/30/17 22:00 65 12/30/17 21:00 74 12/30/17 20:00 98.4 77 18 128/68 (88) 97 12/30/17 20:00 96 Room Air 12/30/17 20:00 77 12/30/17 17:01 74 12/30/17 16:00 74 12/30/17 15:45 98.1 75 18 130/65 (86) 97 12/30/17 15:00 74 12/30/17 14:01 74 12/31/17 12/31/17 01/01/18 15:00 23:00 07:00 Intake Total 500 ml Output Total 10 ml Balance 490 ml Other 500 ml Estimated Blood Loss 10 ml . Laboratory Tests Test 12/30/17 05:00 12/31/17 06:45 White Blood Count 14.0 TH/MM3 10.9 TH/MM3 Red Blood Count 4.20 MIL/MM3 4.33 MIL/MM3 Hemoglobin 9.9 GM/DL 10.2 GM/DL Hematocrit 32.6 % 32.4 % Mean Corpuscular Volume 77.7 FL 74.8 FL Mean Corpuscular Hemoglobin 23.7 PG 23.5 PG Mean Corpuscular Hemoglobin Concent 30.5 % 31.4 % Red Cell Distribution Width 21.1 % 21.3 % Platelet Count 285 TH/MM3 316 TH/MM3 Mean Platelet Volume 9.0 FL 8.6 FL Neutrophils (%) (Auto) 90.2 % 79.7 % Lymphocytes (%) (Auto) 2.5 % 6.8 % Monocytes (%) (Auto) 6.8 % 11.3 % Eosinophils (%) (Auto) 0.2 % 1.7 % Basophils (%) (Auto) 0.3 % 0.5 % Neutrophils # (Auto) 12.6 TH/MM3 8.7 TH/MM3 Lymphocytes # (Auto) 0.4 TH/MM3 0.7 TH/MM3 Monocytes # (Auto) 0.9 TH/MM3 1.2 TH/MM3 Eosinophils # (Auto) 0.0 TH/MM3 0.2 TH/MM3 Basophils # (Auto) 0.0 TH/MM3 0.1 TH/MM3 CBC Comment DIFF FINAL DIFF FINAL Differential Comment Laboratory Tests Test 12/30/17 05:00 12/31/17 06:45 Blood Urea Nitrogen 59 MG/DL 56 MG/DL Creatinine 7.21 MG/DL 6.66 MG/DL Random Glucose 422 MG/DL 176 MG/DL Calcium Level 8.1 MG/DL 8.1 MG/DL Sodium Level 134 MEQ/L 136 MEQ/L Potassium Level 5.8 MEQ/L 4.1 MEQ/L Chloride Level 91 MEQ/L 93 MEQ/L Carbon Dioxide Level 20.5 MEQ/L 28.6 MEQ/L Anion Gap 23 MEQ/L 14 MEQ/L Estimat Glomerular Filtration Rate 10 ML/MIN 11 ML/MIN Imaging Last Impress Last Impressions Foot X-Ray 12/26/17 0000 Signed Impressions: Service Date/Time: Tuesday, December 26, 2017 07:29 - CONCLUSION: 1. Findings concerning for osteomyelitis involving the tuft of the first toe. Phani Vasquez MD Head CT [id number] Signed Impressions: Service Date/Time: Monday, December 25, 2017 22:22 - CONCLUSION: No acute intracranial abnormality demonstrated. Eliu Ayala MD Chest X-Ray [id number] Signed Impressions: Service Date/Time: Monday, December 25, 2017 20:45 - CONCLUSION: No evidence of acute cardiopulmonary disease. Eliu Ayala MD Physical Exam GENERAL: This is a well-nourished, well-developed patient, in no apparent distress. SKIN: No rashes, ecchymoses or lesions. Cool and dry. HEAD: Atraumatic. Normocephalic. No temporal or scalp tenderness. EYES: Pupils equal round and reactive. Extraocular motions intact. No scleral icterus. No injection or drainage. ENT: Nose without bleeding, purulent drainage or septal hematoma. CARDIOVASCULAR: S1 S2 systolic murmur + S3 RESPIRATORY: Clear to auscultation. Breath sounds equal bilaterally. No wheezes , rales, or rhonchi. GASTROINTESTINAL: Abdomen soft, non-tender, nondistended. MUSCULOSKELETAL: Right great toe with ? amputation of tip with blackening of margins noted. Right forefoot amputation site with areas of dry blackening and few areas of wet blackening on edges. None healing + faint foul smell noted. Middle \L finger tip is tencerrf, purple dusky 1-3 finger R hand with evolving dry gangrenous changes NEUROLOGICAL:Awake, alert Nont focal Moves all 4 extremities. Psych cooperative IV line sites with no e.o infection. HD cath site with no e.o infection. Assessment & Plan Remarks Osteomyelitis L foot (L second toe amputation 07/11/17 L posterior tibial artery angioplasty 09/24/17 I and D L foot 09/28/17 Left foot transmetatarsal amputation 09/26/17 (Dr. Judge) Peripheral arterial disease s/p L posterior tibial artery angioplasty Dr. Ortiz Leukocytosis: reactive, infection. DKA, Diabetes mellitus with Neuropathy and Nephropathy. ESRD on hemodialysis Acute metabolic encephalopathy: DKA, sepsis, ? meningitis workup if AMS persists. Peripheral neuropathy COPD, Prior tobacco abuse HTN' Multiple gangrenous finger tips on b/l hands ? embolic ? vasculitis - 2 D echo negative Recs: Change zosyn to Unasyn IV consider AJAY dw Amor Ortiz, To Anguiano,Vianey Weir MD Dec 31, 2017 13:20
[2017-12-31] MEDS: EPOETIN ALFA 10,000 UNITS/ML VIAL IV PUSH PRN (17:19)
[2017-12-31] MEDS: BUDESONIDE-FORMOTEROL 160/4.5 MCG INHALER INH SCH ×2 (18:10→21:18)
--- NOTE | 2017-12-31 18:48 | PD.CARD.PN ---
Subjective Subjective Remarks No angina or SOB, mild confusion, in dialysis Objective Medications Current Medications Medications (Trade) Dose Ordered Sig/April Route Start Time Stop Time Status Last Admin (NS Flush) 2 ml UNSCH PRN IV FLUSH 12/26/17 01:45 (NS Flush) 2 ml BID IV FLUSH 12/26/17 09:00 12/31/17 09:00 (Protonix) 40 mg DAILY PO 12/26/17 09:00 12/31/17 11:25 (Zofran Inj) 4 mg Q6H PRN IV PUSH 12/26/17 01:45 Miscellaneous Information 1 Q361D XX 12/26/17 01:45 12/26/17 01:45 (Chlorhexidine 2% Cloth) Taper DAILY@04 TOP 12/26/17 04:00 12/22/18 03:59 12/31/17 04:00 (Chlorhexidine 2% Cloth) 3 pack UNSCH PRN TOP 12/26/17 01:45 (Odette-Colace) 1 tab BID PO 12/26/17 09:00 12/31/17 11:25 (Milk Of Magnesia Liq) 30 ml Q12H PRN PO 12/26/17 01:45 (Senokot) 17.2 mg Q12H PRN PO 12/26/17 01:45 (Dulcolax Supp) 10 mg DAILY PRN RECTAL 12/26/17 01:45 (Lactulose Liq) 30 ml DAILY PRN PO 12/26/17 01:45 (Symbicort 160-4.5 Mcg Inh) 1 puff Q12HR INH 12/26/17 09:00 12/30/17 20:14 (Vitamin D3) 1,000 units DAILY PO 12/26/17 09:00 12/31/17 11:25 (Norvasc) 5 mg DAILY PO 12/26/17 09:00 12/31/17 11:25 (Cymbalta Dr) 30 mg DAILY PO 12/26/17 09:00 12/31/17 11:25 (Albuterol Neb) 2.5 mg Q2HR NEB PRN NEB 12/26/17 07:15 (D50w (Vial) Inj) 50 ml UNSCH PRN IV PUSH 12/26/17 13:00 (Glucagon Inj) 1 mg UNSCH PRN OTHER 12/26/17 13:00 (NovoLOG SUPPLEMENTAL SCALE) 1 Q4HR SQ 12/26/17 12:47 12/31/17 11:53 Sodium Chloride 1,000 ml @ 0 mls/hr Q0M PRN OTHER 12/26/17 13:45 (Heparin Inj) 8,000 units UNSCH PRN IV FLUSH 12/26/17 13:45 Sodium Chloride 1,000 ml @ 200 mls/hr Q5H PRN IV 12/26/17 13:45 Sodium Chloride 1,000 ml @ 0 mls/hr Q0M PRN OTHER 12/26/17 13:45 (Mannitol Inj) 12.5 gm UNSCH PRN IV 12/26/17 13:45 Albumin Human 100 ml @ 60 mls/hr UNSCH PRN IV 12/26/17 13:45 (NS Flush) 5 ml UNSCH PRN IV FLUSH 12/26/17 13:45 (Heparin Inj) UNSCH PRN .XX 12/26/17 13:45 (Gentamicin Inj) 20 mg UNSCH PRN OTHER 12/26/17 13:45 (Zofran Inj) 4 mg UNSCH PRN IV PUSH 12/26/17 13:45 (Tylenol) 650 mg UNSCH PRN PO 12/26/17 13:45 (Benadryl) 25 mg UNSCH PRN PO 12/26/17 13:45 (Nitrostat Sl) 0.4 mg UNSCH PRN SL 12/26/17 13:45 12/29/17 08:05 (Catapres) 0.1 mg UNSCH PRN PO 12/26/17 13:45 (Epogen Inj) 10,000 units UNSCH PRN IV PUSH 12/26/17 13:45 12/31/17 17:19 (Gelfoam 12 Mm/7 Mm Top) 1 foam UNSCH PRN TOP 12/26/17 13:45 12/28/17 15:42 (Aspirin Chew) 81 mg DAILY CHEW 12/26/17 15:00 12/31/17 11:25 (Morphine Inj) 2 mg Q3H PRN IV 12/26/17 17:15 12/31/17 04:45 ([place] 7.5-325 Mg) 1 tab Q4H PRN PO 12/27/17 12:15 12/28/17 17:55 (Renvela) 2,400 mg TIDAC PO 12/27/17 17:00 12/31/17 13:52 (Lopressor) 25 mg Q8H PO 12/29/17 08:00 12/31/17 11:24 (Nitroglycerin 2% Oint) 1 inch Q8H TOPICAL 12/29/17 08:00 12/31/17 11:25 (Aspirin) 325 mg IMPORT EXPORT MANAGER PO 12/29/17 09:00 01/02/18 08:59 (fentaNYL INJ) 50 mcg IMPORT EXPORT MANAGER IV PUSH 12/29/17 09:00 01/02/18 08:59 (Versed Inj) 1 mg IMPORT EXPORT MANAGER IV PUSH 12/29/17 09:00 01/02/18 08:59 (Atropine Inj) 0.5 mg UNSCH PRN IV PUSH 12/29/17 09:45 (Toradol Inj) 15 mg Q8HR PRN IM 12/29/17 10:00 01/03/18 09:59 (Levemir Inj) 20 units Q12HR SQ 12/30/17 09:00 12/31/17 11:53 Lactated Ringer's 1,000 ml @ 30 mls/hr Q24H PRN IV 12/31/17 00:45 01/03/18 00:44 Sodium Chloride 500 ml @ 30 mls/hr [id number] PRN IV 12/31/17 00:45 01/03/18 00:44 (Betadine 5% Antisepsis Kit) 1 applic IMPORT EXPORT MANAGER PRN EACH NARE 12/31/17 00:45 01/03/18 00:44 (Chlorhexidine 2% Cloth) 3 pack IMPORT EXPORT MANAGER PRN TOPICAL 12/31/17 00:45 01/03/18 00:44 Miscellaneous Information ALL NURSING DEPARTME... UNSCH PRN .XX 12/31/17 10:15 01/01/18 10:14 Ampicillin Sodium/ Sulbactam Sodium 3 gm/Sodium Chloride 100 ml @ 200 mls/hr Q24H IV 12/31/17 18:00 Vital Signs / I&O Vital Signs Date Time Temp Pulse Resp B/P (MAP) Pulse Ox O2 Delivery O2 Flow Rate FiO2 12/31/17 18:22 98.6 89 18 149/75 (99) 96 12/31/17 14:00 78 3/19/18 13:00 72 12/31/17 12:30 71 18 131/63 (85) 96 12/31/17 12:06 93 21 12/31/17 12:00 70 12/31/17 11:00 60 12/31/17 10:30 71 18 131/64 (86) 97 12/31/17 09:47 97.6 76 15 129/65 (86) 100 Nasal Cannula 3 12/31/17 07:15 Room Air 12/31/17 07:00 75 12/31/17 06:00 69 12/31/17 05:00 74 12/31/17 04:00 73 12/31/17 04:00 98.0 73 18 128/60 (82) 96 12/31/17 03:00 74 12/31/17 02:00 65 12/31/17 01:00 74 12/31/17 00:00 Room Air 12/31/17 00:00 98.1 82 18 128/71 (90) 96 12/31/17 00:00 82 12/30/17 23:00 71 12/30/17 22:00 65 12/30/17 21:00 74 12/30/17 20:00 98.4 77 18 128/68 (88) 97 12/30/17 20:00 96 Room Air 12/30/17 20:00 77 I/O 12/30/17 12/30/17 12/30/17 12/31/17 12/31/17 12/31/17 07:00 15:00 23:00 07:00 15:00 23:00 Intake Total 290 ml 50 ml 720 ml 104 ml 500 ml 240 ml Output Total 0 ml 2000 ml 10 ml 3000 ml Balance 290 ml -1950 ml 720 ml 104 ml 490 ml -2760 ml Intake Oral 240 ml 720 ml 240 ml IV Total 50 ml 50 ml 104 ml Other 500 ml Output Urine Total 0 ml Hemodialysis 2000 ml 3000 ml Estimated Blood Loss 10 ml # Voids 0 # Bowel Movements 0 0 Physical Exam GENERAL: In NAD. SKIN: Warm and dry. HEAD: Normocephalic. EYES: No scleral icterus. No injection or drainage. NECK: Supple, trachea midline. No JVD or lymphadenopathy. CARDIOVASCULAR: Regular rate and rhythm without murmurs, gallops, or rubs. RESPIRATORY: Breath sounds equal bilaterally. No accessory muscle use. GASTROINTESTINAL: Abdomen soft, non-tender, nondistended. MUSCULOSKELETAL: No cyanosis, mild edema. S/p L foot TMT amputation Laboratory Laboratory Tests Test 12/31/17 06:45 White Blood Count 10.9 TH/MM3 Red Blood Count 4.33 MIL/MM3 Hemoglobin 10.2 GM/DL Hematocrit 32.4 % Mean Corpuscular Volume 74.8 FL Mean Corpuscular Hemoglobin 23.5 PG Mean Corpuscular Hemoglobin Concent 31.4 % Red Cell Distribution Width 21.3 % Platelet Count 316 TH/MM3 Mean Platelet Volume 8.6 FL Neutrophils (%) (Auto) 79.7 % Lymphocytes (%) (Auto) 6.8 % Monocytes (%) (Auto) 11.3 % Eosinophils (%) (Auto) 1.7 % Basophils (%) (Auto) 0.5 % Neutrophils # (Auto) 8.7 TH/MM3 Lymphocytes # (Auto) 0.7 TH/MM3 Monocytes # (Auto) 1.2 TH/MM3 Eosinophils # (Auto) 0.2 TH/MM3 Basophils # (Auto) 0.1 TH/MM3 CBC Comment DIFF FINAL Differential Comment Blood Urea Nitrogen 56 MG/DL Creatinine 6.66 MG/DL Random Glucose 176 MG/DL Calcium Level 8.1 MG/DL Sodium Level 136 MEQ/L Potassium Level 4.1 MEQ/L Chloride Level 93 MEQ/L Carbon Dioxide Level 28.6 MEQ/L Anion Gap 14 MEQ/L Estimat Glomerular Filtration Rate 11 ML/MIN Assessment and Plan Problem List: (1) Chest pain ICD Codes: R07.9 - Chest pain, unspecified Status: Acute Permanent Comment: Patient poor historian. Findings are most c/w acute pericarditis. AMI needs exclusion. Last Edited By: Dima Patel on Dec 29, 2017 08:51 (2) Pericarditis ICD Codes: I31.9 - Disease of pericardium, unspecified (3) Elevated troponin ICD Codes: R74.8 - Abnormal levels of other serum enzymes (4) Cardiomyopathy ICD Codes: I42.9 - Cardiomyopathy, unspecified (5) Altered mental status ICD Codes: R41.82 - Altered mental status, unspecified (6) ESRD on hemodialysis ICD Codes: N18.6 - End stage renal disease; Z99.2 - Dependence on renal dialysis Status: Chronic (7) COPD (chronic obstructive pulmonary disease) ICD Codes: J44.9 - Chronic obstructive pulmonary disease, unspecified Status: Chronic (8) DKA (diabetic ketoacidoses) ICD Codes: E13.10 - Other specified diabetes mellitus with ketoacidosis without coma Status: Acute (9) DM (diabetes mellitus) ICD Codes: E11.9 - Type 2 diabetes mellitus without complications Status: Chronic (10) HTN (hypertension) ICD Codes: I10 - Essential (primary) hypertension Status: Chronic Permanent Comment: Last Edited By: Jasmyne Bee on Jul 11, 2017 15:31 (11) Cellulitis of foot, left ICD Codes: L03.116 - Cellulitis of left lower limb Status: Acute (12) Osteomyelitis ICD Codes: M86.9 - Osteomyelitis, unspecified Status: Acute Assessment and Plan Recent cath for diffuse ST elevation, diagnosed with pericarditis. No significant obstructive CAD. Troponin slightly elevated, likely secondary to ESRD. Echo with moderate LV systolic dysfunction. Continue abx for foot osteomyelitis, podiatric eval in progress. Continue monitoring, increase activity, PT. Ischemic distal digits, possibly embolic vs severe ischemia vs vasculitis. Will schedule AJAY to eval for endocarditis. ID and vasc surgery eval in progress. Problem Qualifiers (1) Altered mental status: Qualified Codes: R41.82 - Altered mental status, unspecified (2) DKA (diabetic ketoacidoses): Qualified Codes: E10.11 - Type 1 diabetes mellitus with ketoacidosis with coma (3) Osteomyelitis: Qualified Codes: M86.8X7 - Other osteomyelitis, ankle and foot Amrit Hanley MD Dec 31, 2017 18:48
[2017-12-31] MEDS: AMPICILLIN-SULBACTAM INJ 3 GM in SODIUM CHLORIDE 0.9% INJ 100 ML IV SCH (18:51)
[2017-12-31] MEDS: DEXTROSE 50% IN WATER 50 ML VIAL(D50) IV PUSH PRN (21:03)
[2018-01-01] VITALS (27 sets, daily range): BP systolic 119–145; BP diastolic 55–76; PULSE 72–96; RESP 16–18; TEMP 97.8–98.6; O2SAT 96–99
[2018-01-01] MEDS: METOPROLOL TARTRATE 25 MG TAB PO SCH ×3 (00:26→16:43)
[2018-01-01] MEDS: NITROGLYCERIN 2% OINT 1 GM PACKET TOPICAL SCH ×3 (00:26→16:45)
[2018-01-01] MEDS: CHLORHEXIDINE GLUCONATE 2 % 1 PACK (2 CLOTHS) TOP SCH ×2 (00:27→19:21)
--- NOTE | 2018-01-01 02:19 | MP ---
cc: Randy Ortiz MD DATE OF OPERATION: 12/31/2017 PREOPERATIVE DIAGNOSIS: Bilateral lower extremity tissue loss, peripheral vascular disease. POSTOPERATIVE DIAGNOSIS: Bilateral lower extremity tissue, peripheral vascular disease. PROCEDURE: 1. Aortogram with bilateral lower extremity angiogram. 2. Left anterior tibial artery angioplasty with 3 mm balloon. 3. Left posterior tibial artery angioplasty with a 2.5 to 3 mm balloon. 4. Right posterior tibial artery angioplasty with 3 mm balloon. ATTENDING SURGEON: Randy Ortiz MD. ANESTHESIA: LMA. INDICATIONS: Mr. Aguilera is a gentleman with endstage renal disease and peripheral vascular disease. He has a nonhealing left transmetatarsal amputation and new tissue loss on his right leg. He was taken to the operating room for angiographic evaluation and treatment. There was no prior cath-based imaging available for my review. DESCRIPTION OF PROCEDURE: Informed consent was obtained from the patient. He was taken to the operating room and placed supine on the operating table. An appropriate timeout was taken to ensure the patient's identity, operative site and planned procedure, the administration of antibiotics and (01:04) clean procedure without planned implantation of any foreign object. Everyone in the room agreed. At this point, we proceeded. His bilateral groins were prepped and draped after he was placed under anesthesia. Right common femoral artery was accessed with a 21-gauge micropuncture needle. This was exchanged using standard technique for a micropuncture sheath, through which, a 0.035 Glidewire was introduced. The micropuncture sheath was exchanged for a 5-Haitian sheath and a VCF catheter was placed over the wire through the sheath and the aortogram and pelvic arteriogram were obtained. The Glidewire was navigated down to the left common femoral artery through the VCF catheter and the VCF catheter was advanced over this and left lower extremity arteriograms obtained. The patient was then heparinized with 3000 units of IV heparin. A 0.035 Agustin wire was advanced down to the popliteal artery and a 6-Haitian x 90 cm sheath was introduced down to the popliteal artery. A CXI catheter was advanced over the Agustin wire through the sheath and the Agustin wire was exchanged for a Glidewire. This was used to navigate into the anterior tibial artery and the anterior tibial artery was angioplastied with a 3 mm balloon. The completion angiogram showed excellent results on a recall extravasation. The wire and catheter were removed and re-advanced into the posterior tibial artery and then we advanced a 0.035 CXI, a 0.018 CXI and a 0.014 PLANT CULTURE MANAGER catheter and wire combination down to the distal posterior tibial artery into the foot and this was angioplastied with a 2.5 to 3 mm angioplasty balloon. Completion angiogram showed excellent result, although sluggish flow, distally. The wire, catheter and sheath were removed and the groin was closed with Angio-Seal. A 21-gauge micropuncture needle was used to access the left common femoral artery and was exchanged using Seldinger technique with a micropuncture sheath, through which, a 0.035 Glidewire was introduced and the micropuncture sheath was exchanged for a 6-Haitian sheath and a VCF catheter was placed over the wire and through the sheath and the Glidewire was navigated down to the right common femoral artery and a VCF catheter was advanced over this. A right lower extremity arteriogram was obtained. A Agustin wire was then introduced, the VCF and 6-Haitian sheath were removed and a 6-Haitian 90 cm Vinny was introduced. The CXI and PLANT CULTURE MANAGER wire were then reintroduced, similar to the left-hand side and navigated down to the posterior tibial artery. Ultimately, we ended up using a Choice PT wire, which was navigated down to the pedal outflow of the foot and this was angioplastied with a 3 mm balloon. The completion angiogram showed excellent results (03:09). Extravasation wire, catheter and sheath were removed and the groin was closed with Angio-Seal. INTERPRETATION OF IMAGES: The patient has a patent infrarenal aorta, common iliac arteries, bilateral external iliac arteries and hypogastric arteries. None of these have any hemodynamically significant stenoses. The left common femoral artery, SFA and profunda are all widely patent. The popliteal artery is patent. The anterior tibial artery has a high-grade proximal stenosis successfully treated with a 3 mm angioplasty balloon. The anterior tibial artery continues on down the dorsum of the foot. The posterior tibial artery is patent down to the ankle and, down at the ankle, there were several high-grade stenoses and these were angioplastied with a tapered balloon. On the right hand side, the common femoral artery, profunda and superficial femoral artery were patent. The popliteal artery is patent and the anterior tibial artery is patent. The posterior tibial artery has several high-grade stenoses down to the perimalleolar region and these were successfully angioplastied with a completion angiogram. There was excellent inline flow from both the anterior tibial artery and posterior tibial artery into the plantar arch. MD BLANCHE Humphreys/THERON , 08:57 PM , 02:17 AM
[2018-01-01] MEDS: LOW DOSE INSULIN NOVOLOG SUPPLEMENTAL SCALE SQ SCH ×6 (04:00→20:00)
--- NOTE | 2018-01-01 09:46 | HHI.NPPN ---
Subjective General Problems: Anemia, Diabetes Renal Failure: Chronic, End Stage Renal Disease Interval History Sitting up eating breakfast. Had bilateral angiogram yesterday with balloon angioplasty. No complaints today. (Jasmyne Bee) Review of Systems Musculoskeletal MS: Pain/Stiffness (Jasmyne Bee) Skin Skin: Ulcers Skin Remarks right great toe, left MFA skin changes, non healing (Jasmyne Bee) Objective Data Data Vital Signs Date Time Temp Pulse Resp B/P (MAP) Pulse Ox O2 Delivery O2 Flow Rate FiO2 01/01/18 08:56 98 21 01/01/18 08:51 98.4 75 18 119/55 (76) 98 01/01/18 07:22 73 01/01/18 07:22 Room Air 01/01/18 06:00 72 01/01/18 05:00 74 01/01/18 04:00 77 01/01/18 04:00 98.4 75 16 127/71 (89) 99 01/01/18 03:00 74 01/01/18 02:00 74 01/01/18 01:00 76 01/01/18 00:00 97.8 78 16 131/62 (85) 98 01/01/18 00:00 74 12/31/17 23:00 72 12/31/17 22:00 80 12/31/17 21:00 88 12/31/17 20:41 21 12/31/17 20:00 97.5 77 16 122/53 (76) 98 12/31/17 20:00 95 12/31/17 20:00 Room Air 12/31/17 18:22 98.6 89 18 149/75 (99) 96 12/31/17 18:00 82 12/31/17 17:00 74 12/31/17 16:00 72 12/31/17 15:00 75 12/31/17 14:00 78 12/31/17 13:00 72 12/31/17 12:30 71 18 131/63 (85) 96 12/31/17 12:06 93 21 12/31/17 12:00 70 12/31/17 11:00 60 12/31/17 10:30 71 18 131/64 (86) 97 12/31/17 10:15 98.1 72 14 126/64 (84) 100 Nasal Cannula 2 12/31/17 10:00 73 14 124/67 (86) 100 Nasal Cannula 3 12/31/17 09:47 97.6 76 15 129/65 (86) 100 Nasal Cannula 3 (Jasmyne Bee) -: 12/31/17 0645 12/31/17 0645 Tubes & Lines Comment Ta right chest (Jasmyne Bee) Physical Exam General Appearance: Well Developed, Well Nourished, No Acute Distress, Comfortable (Jasmyne Bee) Eyes Eye Exam: Pupils Equal (Jasmyne Bee) Neck Neck Exam: Neck Supple (Jasmyne Bee) Pulmonary Resp Exam: Clear Bilaterally, Breath Sounds Equal (Jasmyne Bee) Cardiology CV Exam: Regular, Normal Sinus Rhythm (Jasmyne Bee) Gastrointestinal/Abdomen GI Exam: Soft, Non-Tender, Bowel Sounds Present (Jasmyne Bee) Musculoskeletal MS Exam: Joints Intact, Good Strength MS Remarks left midfoot amputation, no skin flap bone visible, dark edges with gangrene/eschar; brenda intact (Jasmyne Bee) Integumentary Skin Exam: Warm, Dry Skin Remarks see above right great toe with nail changes. (Jasmyne Bee) Extremeties Extremities Exam: No Edema, Pedal Pulses Palpable Extremeties Remarks left AVF +thrill, bruit (Jasmyne Bee) Neurologic Neuro Exam: Alert, Awake, Oriented, Speech Clear, Moving All Extremities (Jasmyne Bee) Psychiatric Psych Exam: Appropriate Responses (Jasmyne Bee) Assessment/Plan Discussed Condition With: Patient Assessment Summary: Anemia of CKD, Hypertension, Diabetes Mellitus, End Stage Renal Disease Problem List: (1) ESRD (end stage renal disease) ICD Codes: N18.6 - End-stage renal disease Status: Resolved Plan: HD MWF, due tomorrow. 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 Hold today. Using AVF left arm for HD He has existing HD arrangements in place Avoid IVF administration, gadolinium in contraindicated High protein diet ordered with protein supplements. Repeat labs intermittently. (2) Osteomyelitis ICD Codes: M86.9 - Osteomyelitis, unspecified Status: Acute Plan: ID and vascular following with podiatry Zosyn changed to Unasyn s/p bilateral angiogram. Possible L BKA if no improvement. Vascular recommends to wait right sided amputations until after revascularization to assess for improvement Cultures are negative at this time. Continue to monitor. Unclear if we can remove the Ta; if antibiotics will be required at discharge consider leaving it in. ID assistance on this matter is appreciated. (3) PAD (peripheral artery disease) ICD Codes: I73.9 - Peripheral vascular disease, unspecified Status: Chronic Plan: See above Needs wound care to left foot/amputation site. (4) Bone metabolism disorder ICD Codes: E88.9 - Metabolic disorder, unspecified; M90.80 - Osteopathy in diseases classified elsewhere, unspecified site Status: Acute Plan: Phosphorus has been very high, On high dose Renvela with meals Advised binder compliance (5) DKA (diabetic ketoacidoses) ICD Codes: E13.10 - Other specified diabetes mellitus with ketoacidosis without coma Status: Acute Plan: Much better blood sugar control. A1c 10.7 longterm regimen is: Detemir 10 units subcutaneous twice a day NovoLog sliding scale Brittle DM 1 (6) HTN (hypertension) ICD Codes: I10 - Essential (primary) hypertension Status: Chronic Plan: Continue home medications, titrate as needed Permanent Comment: Last Edited By: Jasmyne Bee on Jul 11, 2017 15:31 (7) Anemia ICD Codes: D64.9 - Anemia, unspecified Plan: Epogen with dialysis (8) Hyperkalemia ICD Codes: E87.5 - Hyperkalemia Status: Acute Plan: Improved. Continue to monitor. (Jasmyne BeeP) Plan patient was seen and examined. Agree with above assessment and plan. (Maurice Schultz MD) Problem Qualifiers (1) Osteomyelitis: Qualified Codes: M86.8X7 - Other osteomyelitis, ankle and foot (2) DKA (diabetic ketoacidoses): Qualified Codes: E10.11 - Type 1 diabetes mellitus with ketoacidosis with coma (3) Anemia: Qualified Codes: N18.6 - End stage renal disease; D63.1 - Anemia in chronic kidney disease; Z99.2 - Dependence on renal dialysis Jasmyne Bee Jan 01, 2018 09:46 Maurice Schultz MD Jan 01, 2018 09:59
--- NOTE | 2018-01-01 10:00 | PD.VS.PN ---
Subjective POD #: 1 Procedure(s): Aortogram w/ B LE angiogram L AT REGISTERED SAFETY ENGINEER (3mm) L PT REGISTERED SAFETY ENGINEER (2.5-3mm) R PT REGISTERED SAFETY ENGINEER (2.5-3mm) B HOT[employer] RECREATIONAL [employer]ACILITIES MANAGER Angioseal Subjective/Hospital Course Pt alert in NAD LE warm with motor intact B Groin regions S/NT w/o hematoma/swelling R great toe with dry necrotic tissue/no odor L TMA site w/ dry necrotic tissue/no odor Objective Vitals/I&O Date Time Temp Pulse Resp B/P (MAP) Pulse Ox O2 Delivery O2 Flow Rate FiO2 01/01/18 08:56 98 21 01/01/18 08:51 98.4 75 18 119/55 (76) 98 01/01/18 07:22 73 01/01/18 07:22 Room Air 01/01/18 06:00 72 01/01/18 05:00 74 01/01/18 04:00 77 01/01/18 04:00 98.4 75 16 127/71 (89) 99 01/01/18 03:00 74 01/01/18 02:00 74 01/01/18 01:00 76 01/01/18 00:00 97.8 78 16 131/62 (85) 98 01/01/18 00:00 74 12/31/17 23:00 72 12/31/17 22:00 80 12/31/17 21:00 88 12/31/17 20:41 21 12/31/17 20:00 97.5 77 16 122/53 (76) 98 12/31/17 20:00 95 12/31/17 20:00 Room Air 12/31/17 18:22 98.6 89 18 149/75 (99) 96 12/31/17 18:00 82 12/31/17 17:00 74 12/31/17 16:00 72 12/31/17 15:00 75 12/31/17 14:00 78 12/31/17 13:00 72 12/31/17 12:30 71 18 131/63 (85) 96 12/31/17 12:06 93 21 12/31/17 12:00 70 12/31/17 11:00 60 12/31/17 10:30 71 18 131/64 (86) 97 12/31/17 10:15 98.1 72 14 126/64 (84) 100 Nasal Cannula 2 12/31/17 10:00 73 14 124/67 (86) 100 Nasal Cannula 3 01/01/18 01/01/18 01/01/18 07:00 15:00 23:00 Intake Total 480 ml Balance 480 ml Exam: GENERAL: A&Ox3 SKIN: LE Warm and dry w/ motor intact Right great toe discoloration (dry necrotic tissue)/No O/D/S L TMA site w/ dry necrotic tissue/No O/S/D MUSCULOSKELETAL: No cyanosis, or edema. B Groins S/NT w/o hematoma or swelling R DP/PT biphasic signals heard via Doppler L PT biphasic via Doppler Laboratory Date/Time Source Procedure Growth Status 12/26/17 04:45 Blood Peripheral Aerobic Blood Culture - Final NO GROWTH IN 5 DAYS Complete 12/26/17 04:45 Blood Peripheral Anaerobic Blood Culture - Final NO GROWTH IN 5 DAYS Complete Assessment and Plan Assessment: (1) PAD (peripheral artery disease) Plan Pt S/P B LE angiogram POD 1 Pt doing well w/o complaints LE warm w/ motor intact Distal pulses present via Doppler Plan Continue wound care management Continue PT Will continue to follow Alba Allen NP [facility] [phone] Discharge Planning D/C planning w/ out pt f/u Alba Allen Jan 01, 2018 10:00
[2018-01-01] MEDS: SEVELAMER CARBONATE 800 MG TAB PO SCH ×3 (10:30→16:44)
[2018-01-01] MEDS: PANTOPRAZOLE SOD 40 MG DELAYED RELEASE TAB PO SCH (10:30)
[2018-01-01] MEDS: DOCUSATE SODIUM 50 MG/SENNA 8.6 MG TAB PO SCH ×2 (10:31→20:43)
[2018-01-01] MEDS: ASPIRIN 81 MG CHEW TAB CHEW SCH (10:31)
[2018-01-01] MEDS: CHOLECALCIFEROL (VIT D3) 1000 UNIT TAB PO SCH (10:31)
[2018-01-01] MEDS: amLODIPine BESYLATE 5 MG TAB PO SCH (10:31)
[2018-01-01] MEDS: DULoxetine HCl DR 30 MG CAP PO SCH (10:31)
[2018-01-01] MEDS: BUDESONIDE-FORMOTEROL 160/4.5 MCG INHALER INH SCH ×2 (10:32→20:42)
[2018-01-01] MEDS: SODIUM CHLORIDE 0.9% FLUSH 10 ML FLUSH IV FLUSH SCH ×2 (10:36→20:43)
[2018-01-01] MEDS: INSULIN DETEMIR 100 UNITS/ML VIAL SQ SCH ×2 (10:45→20:43)
--- NOTE | 2018-01-01 11:17 | HHI.PR ---
Subjective Remarks Follow-up acute pericarditis/uncontrolled diabetes type 2/osteomyelitis/chest pain/end-stage renal disease 12/29/17-patient seen and examined, status post angio this a.m., lethargic. Case discussed with nephrology who will plan for hemodialysis today. Blood glucose elevated 12/30/17-patient seen and examined, still lethargic. Hemodialysis disease a.m. Blood glucose still elevated. Afebrile 12/31/17-patient seen and examined, he had angio this AM. Stable 01/01/18-patient seen and examined, requesting his diet to be increased. NO complaint of right leg pain.He had bilateral angiogram yesterday with balloon angioplasty Objective Vitals Vital Signs Date Time Temp Pulse Resp B/P (MAP) Pulse Ox O2 Delivery O2 Flow Rate FiO2 01/01/18 08:56 98 21 01/01/18 08:51 98.4 75 18 119/55 (76) 98 01/01/18 07:22 73 01/01/18 07:22 Room Air 01/01/18 06:00 72 01/01/18 05:00 74 01/01/18 04:00 77 01/01/18 04:00 98.4 75 16 127/71 (89) 99 01/01/18 03:00 74 01/01/18 02:00 74 01/01/18 01:00 76 01/01/18 00:00 97.8 78 16 131/62 (85) 98 01/01/18 00:00 74 12/31/17 23:00 72 12/31/17 22:00 80 12/31/17 21:00 88 12/31/17 20:41 21 12/31/17 20:00 97.5 77 16 122/53 (76) 98 12/31/17 20:00 95 12/31/17 20:00 Room Air 12/31/17 18:22 98.6 89 18 149/75 (99) 96 12/31/17 18:00 82 12/31/17 17:00 74 12/31/17 16:00 72 12/31/17 15:00 75 12/31/17 14:00 78 12/31/17 13:00 72 12/31/17 12:30 71 18 131/63 (85) 96 12/31/17 12:06 93 21 12/31/17 12:00 70 I/O 12/31/17 12/31/17 12/31/17 01/01/18 01/01/18 01/01/18 07:00 15:00 23:00 07:00 15:00 23:00 Intake Total 104 ml 500 ml 240 ml 480 ml Output Total 10 ml 3000 ml Balance 104 ml 490 ml -2760 ml 480 ml Intake Oral 240 ml 480 ml IV Total 104 ml Other 500 ml Hemodialysis 3000 ml Estimated Blood Loss 10 ml Result Diagram: 12/31/17 0645 12/31/17 0645 Imaging Last Impressions Foot X-Ray 12/26/17 0000 Signed Impressions: Service Date/Time: Tuesday, December 26, 2017 07:29 - CONCLUSION: 1. Findings concerning for osteomyelitis involving the tuft of the first toe. Phani Vasquez MD Head CT [id number] Signed Impressions: Service Date/Time: Monday, December 25, 2017 22:22 - CONCLUSION: No acute intracranial abnormality demonstrated. Eliu Ayala MD Chest X-Ray [id number] Signed Impressions: Service Date/Time: Monday, December 25, 2017 20:45 - CONCLUSION: No evidence of acute cardiopulmonary disease. Eliu Ayala MD Objective Remarks GENERAL: lethargic SKIN: Warm and dry. Left big toe gangrene. Dressing over right foot HEAD: Normocephalic. EYES: No scleral icterus. No injection or drainage. NECK: Supple, trachea midline. No JVD or lymphadenopathy. CARDIOVASCULAR: Regular rate and rhythm without murmurs, gallops, or rubs. RESPIRATORY: Breath sounds equal bilaterally. No accessory muscle use. GASTROINTESTINAL: Abdomen soft, non-tender, nondistended. MUSCULOSKELETAL: No cyanosis, or edema. BACK: Nontender without obvious deformity. No CVA tenderness. A/P Problem List: (1) End stage renal disease ICD Code: N18.6 - End-stage renal disease Status: Chronic (2) Ischemic ulcer diabetic foot ICD Code: E11.621 - Type 2 diabetes mellitus with foot ulcer; L97.509 - Non- pressure chronic ulcer of other part of unspecified foot with unspecified severity Status: Acute (3) Diabetes mellitus with hyperglycemia ICD Code: E11.65 - Type 2 diabetes mellitus with hyperglycemia Status: Acute (4) PAD (peripheral artery disease) ICD Code: I73.9 - Peripheral vascular disease, unspecified (5) Osteomyelitis ICD Code: M86.9 - Osteomyelitis, unspecified Status: Acute Assessment and Plan 57-year-old man with 1. Acute toxic metabolic encephalopathy/Peripheral Neuropathy/Depression CT brain negative. 2. COPD/Tobacco dependence on Symbicort 160/4.5 2 puffs inhaled twice a day 3. Hypertension/Peripheral Artery Disease status post Left posterior tibial artery angioplasty 09/24/17 Dr Ortiz Amlodipine 5 mg daily and Lisinopril 10 mg daily 4. ESRD on Hemodialysis M/W/F, Nephrology specialist following Hyperkalemia-Resolved 5. Leukocytosis/osteomyelitis of the left foot Left second toe amputation 07/11/17 Left Posterior tibial artery angioplasty 09/24/17 I and D Left foot 09/28/17 left foot transmetatarsal amputation 09/26/17 Dr. Judge Poor wound healing and dry gangrene as well as probable wet gangrene noted ID and podiatry ff Currently on Zosyn 2.25 grams IV q 8 hours ID specialist and Vascular Surgery following on Zosyn, s/p bilateral angiogram with balloon angioplasty 12/31/17, possible Left BKA if no improvement 6. Anemia of chronic disease 7. DKA resolved/DM II On Levemir 20 units every 12 hours STEMI on 12/29/17 [facility] without any stent placement PROPH: Heparin 5000 units subcutaneous every 12 hours for DVT prophylaxis. Protonix 40 mg by mouth daily Problem Qualifiers (1) Osteomyelitis: Qualified Codes: M86.8X7 - Other osteomyelitis, ankle and foot Emmanuel French MD Jan 01, 2018 11:17
--- NOTE | 2018-01-01 15:08 | PD.CARD.PN ---
Subjective Subjective Remarks No angina or SOB, eating breakfast Objective Medications Current Medications Medications (Trade) Dose Ordered Sig/April Route Start Time Stop Time Status Last Admin (NS Flush) 2 ml UNSCH PRN IV FLUSH 12/26/17 01:45 (NS Flush) 2 ml BID IV FLUSH 12/26/17 09:00 01/01/18 10:36 (Protonix) 40 mg DAILY PO 12/26/17 09:00 01/01/18 10:30 (Zofran Inj) 4 mg Q6H PRN IV PUSH 12/26/17 01:45 Miscellaneous Information 1 Q361D XX 12/26/17 01:45 12/26/17 01:45 (Chlorhexidine 2% Cloth) Taper DAILY@04 TOP 12/26/17 04:00 12/22/18 03:59 12/31/17 04:00 (Chlorhexidine 2% Cloth) 3 pack UNSCH PRN TOP 12/26/17 01:45 (Odette-Colace) 1 tab BID PO 12/26/17 09:00 01/01/18 10:31 (Milk Of Magnesia Liq) 30 ml Q12H PRN PO 12/26/17 01:45 (Senokot) 17.2 mg Q12H PRN PO 12/26/17 01:45 (Dulcolax Supp) 10 mg DAILY PRN RECTAL 12/26/17 01:45 (Lactulose Liq) 30 ml DAILY PRN PO 12/26/17 01:45 (Symbicort 160-4.5 Mcg Inh) 1 puff Q12HR INH 12/26/17 09:00 01/01/18 10:32 (Vitamin D3) 1,000 units DAILY PO 12/26/17 09:00 01/01/18 10:31 (Norvasc) 5 mg DAILY PO 12/26/17 09:00 01/01/18 10:31 (Cymbalta Dr) 30 mg DAILY PO 12/26/17 09:00 01/01/18 10:31 (Albuterol Neb) 2.5 mg Q2HR NEB PRN NEB 12/26/17 07:15 (D50w (Vial) Inj) 50 ml UNSCH PRN IV PUSH 12/26/17 13:00 12/31/17 21:03 (Glucagon Inj) 1 mg UNSCH PRN OTHER 12/26/17 13:00 (NovoLOG SUPPLEMENTAL SCALE) 1 Q4HR SQ 12/26/17 12:47 01/01/18 12:40 Sodium Chloride 1,000 ml @ 0 mls/hr Q0M PRN OTHER 12/26/17 13:45 (Heparin Inj) 8,000 units UNSCH PRN IV FLUSH 12/26/17 13:45 Sodium Chloride 1,000 ml @ 200 mls/hr Q5H PRN IV 12/26/17 13:45 Sodium Chloride 1,000 ml @ 0 mls/hr Q0M PRN OTHER 12/26/17 13:45 (Mannitol Inj) 12.5 gm UNSCH PRN IV 12/26/17 13:45 Albumin Human 100 ml @ 60 mls/hr UNSCH PRN IV 12/26/17 13:45 (NS Flush) 5 ml UNSCH PRN IV FLUSH 12/26/17 13:45 (Heparin Inj) UNSCH PRN .XX 12/26/17 13:45 (Gentamicin Inj) 20 mg UNSCH PRN OTHER 12/26/17 13:45 (Zofran Inj) 4 mg UNSCH PRN IV PUSH 12/26/17 13:45 (Tylenol) 650 mg UNSCH PRN PO 12/26/17 13:45 (Benadryl) 25 mg UNSCH PRN PO 12/26/17 13:45 (Nitrostat Sl) 0.4 mg UNSCH PRN SL 12/26/17 13:45 12/29/17 08:05 (Catapres) 0.1 mg UNSCH PRN PO 12/26/17 13:45 (Epogen Inj) 10,000 units UNSCH PRN IV PUSH 12/26/17 13:45 12/31/17 17:19 (Gelfoam 12 Mm/7 Mm Top) 1 foam UNSCH PRN TOP 12/26/17 13:45 12/28/17 15:42 (Aspirin Chew) 81 mg DAILY CHEW 12/26/17 15:00 01/01/18 10:31 (Morphine Inj) 2 mg Q3H PRN IV 12/26/17 17:15 12/31/17 04:45 ([place] 7.5-325 Mg) 1 tab Q4H PRN PO 3/15/18 12:15 12/28/17 17:55 (Renvela) 2,400 mg TIDAC PO 12/27/17 17:00 01/01/18 12:42 (Lopressor) 25 mg Q8H PO 12/29/17 08:00 01/01/18 10:31 (Nitroglycerin 2% Oint) 1 inch Q8H TOPICAL 12/29/17 08:00 01/01/18 10:34 (Aspirin) 325 mg EXERCISE SCIENCE INSTRUCTOR PO 12/29/17 09:00 01/02/18 08:59 (fentaNYL INJ) 50 mcg EXERCISE SCIENCE INSTRUCTOR IV PUSH 12/29/17 09:00 01/02/18 08:59 (Versed Inj) 1 mg EXERCISE SCIENCE INSTRUCTOR IV PUSH 12/29/17 09:00 01/02/18 08:59 (Atropine Inj) 0.5 mg UNSCH PRN IV PUSH 12/29/17 09:45 (Toradol Inj) 15 mg Q8HR PRN IM 12/29/17 10:00 01/03/18 09:59 (Levemir Inj) 20 units Q12HR SQ 12/30/17 09:00 01/01/18 10:45 Lactated Ringer's 1,000 ml @ 30 mls/hr Q24H PRN IV 12/31/17 00:45 01/03/18 00:44 Sodium Chloride 500 ml @ 30 mls/hr [id number] PRN IV 12/31/17 00:45 01/03/18 00:44 (Betadine 5% Antisepsis Kit) 1 applic EXERCISE SCIENCE INSTRUCTOR PRN EACH NARE 12/31/17 00:45 01/03/18 00:44 (Chlorhexidine 2% Cloth) 3 pack EXERCISE SCIENCE INSTRUCTOR PRN TOPICAL 12/31/17 00:45 01/03/18 00:44 Ampicillin Sodium/ Sulbactam Sodium 3 gm/Sodium Chloride 100 ml @ 200 mls/hr Q24H IV 12/31/17 18:00 12/31/17 18:51 Vital Signs / I&O Vital Signs Date Time Temp Pulse Resp B/P (MAP) Pulse Ox O2 Delivery O2 Flow Rate FiO2 01/01/18 13:00 84 01/01/18 12:00 74 01/01/18 11:54 98.4 74 18 126/70 (88) 98 01/01/18 11:00 75 01/01/18 10:00 78 01/01/18 09:00 96 01/01/18 08:56 98 21 01/01/18 08:51 98.4 75 18 119/55 (76) 98 01/01/18 08:00 90 01/01/18 07:22 73 01/01/18 07:22 Room Air 01/01/18 06:00 72 01/01/18 05:00 74 01/01/18 04:00 77 01/01/18 04:00 98.4 75 16 127/71 (89) 99 01/01/18 03:00 74 01/01/18 02:00 74 01/01/18 01:00 76 01/01/18 00:00 97.8 78 16 131/62 (85) 98 01/01/18 00:00 74 12/31/17 23:00 72 12/31/17 22:00 80 12/31/17 21:00 88 12/31/17 20:41 21 12/31/17 20:00 97.5 77 16 122/53 (76) 98 12/31/17 20:00 95 12/31/17 20:00 Room Air 12/31/17 18:22 98.6 89 18 149/75 (99) 96 12/31/17 18:00 82 12/31/17 17:00 74 12/31/17 16:00 72 I/O 12/31/17 12/31/17 12/31/17 01/01/18 01/01/18 01/01/18 07:00 15:00 23:00 07:00 15:00 23:00 Intake Total 104 ml 500 ml 240 ml 480 ml Output Total 10 ml 3000 ml Balance 104 ml 490 ml -2760 ml 480 ml Intake Oral 240 ml 480 ml IV Total 104 ml Other 500 ml Hemodialysis 3000 ml Estimated Blood Loss 10 ml Physical Exam GENERAL: In NAD. SKIN: Warm and dry. HEAD: Normocephalic. EYES: No scleral icterus. No injection or drainage. NECK: Supple, trachea midline. No JVD or lymphadenopathy. CARDIOVASCULAR: Regular rate and rhythm without murmurs, gallops, or rubs. RESPIRATORY: Breath sounds equal bilaterally. No accessory muscle use. GASTROINTESTINAL: Abdomen soft, non-tender, nondistended. MUSCULOSKELETAL: No cyanosis, mild edema. S/p L foot TMT amputation Assessment and Plan Problem List: (1) Chest pain ICD Codes: R07.9 - Chest pain, unspecified Status: Acute Permanent Comment: Patient poor historian. Findings are most c/w acute pericarditis. AMI needs exclusion. Last Edited By: Dima Patel on Dec 29, 2017 08:51 (2) Pericarditis ICD Codes: I31.9 - Disease of pericardium, unspecified (3) Elevated troponin ICD Codes: R74.8 - Abnormal levels of other serum enzymes (4) Cardiomyopathy ICD Codes: I42.9 - Cardiomyopathy, unspecified (5) Altered mental status ICD Codes: R41.82 - Altered mental status, unspecified (6) ESRD on hemodialysis ICD Codes: N18.6 - End stage renal disease; Z99.2 - Dependence on renal dialysis Status: Chronic (7) COPD (chronic obstructive pulmonary disease) ICD Codes: J44.9 - Chronic obstructive pulmonary disease, unspecified Status: Chronic (8) DKA (diabetic ketoacidoses) ICD Codes: E13.10 - Other specified diabetes mellitus with ketoacidosis without coma Status: Acute (9) DM (diabetes mellitus) ICD Codes: E11.9 - Type 2 diabetes mellitus without complications Status: Chronic (10) HTN (hypertension) ICD Codes: I10 - Essential (primary) hypertension Status: Chronic Permanent Comment: Last Edited By: Jasmyne Bee on Jul 11, 2017 15:31 (11) Cellulitis of foot, left ICD Codes: L03.116 - Cellulitis of left lower limb Status: Acute (12) Osteomyelitis ICD Codes: M86.9 - Osteomyelitis, unspecified Status: Acute Assessment and Plan No new cardiac issues. Recent cath for diffuse ST elevation, diagnosed with pericarditis. No significant obstructive CAD. Troponin slightly elevated, likely secondary to ESRD, possibly also pericarditis. Echo with moderate LV systolic dysfunction. Continue abx for foot osteomyelitis, podiatric eval in progress. Continue monitoring, increase activity, PT. Ischemic distal digits, possibly embolic vs severe ischemia vs vasculitis. ID and vasc surgery eval in progress. AJAY tomorrow. Problem Qualifiers (1) Altered mental status: Qualified Codes: R41.82 - Altered mental status, unspecified (2) DKA (diabetic ketoacidoses): Qualified Codes: E10.11 - Type 1 diabetes mellitus with ketoacidosis with coma (3) Osteomyelitis: Qualified Codes: M86.8X7 - Other osteomyelitis, ankle and foot Amrit Hanley MD Jan 01, 2018 15:08
[2018-01-01] MEDS: AMPICILLIN-SULBACTAM INJ 3 GM in SODIUM CHLORIDE 0.9% INJ 100 ML IV SCH (18:29)
--- NOTE | 2018-01-01 22:17 | HHI.PR ---
Subjective Remarks Patient seen bedside. States he does not recognize me although we have met on previous hospital admissions and he has been to follow up in my office. Is agitated he had not received his dinner tray and is asking to fo back to [facility]. Objective Vital Signs Date Time Temp Pulse Resp B/P (MAP) Pulse Ox O2 Delivery O2 Flow Rate FiO2 01/01/18 20:01 96 21 01/01/18 18:00 78 01/01/18 17:00 78 01/01/18 16:00 98.6 72 17 119/62 (81) 97 01/01/18 16:00 76 01/01/18 15:00 75 01/01/18 14:00 74 01/01/18 13:00 84 01/01/18 12:00 74 01/01/18 11:54 98.4 74 18 126/70 (88) 98 01/01/18 11:00 75 01/01/18 10:00 78 01/01/18 09:00 96 01/01/18 08:56 98 21 01/01/18 08:51 98.4 75 18 119/55 (76) 98 01/01/18 08:00 90 01/01/18 07:22 73 01/01/18 07:22 Room Air 01/01/18 06:00 72 01/01/18 05:00 74 01/01/18 04:00 77 01/01/18 04:00 98.4 75 16 127/71 (89) 99 01/01/18 03:00 74 01/01/18 02:00 74 01/01/18 01:00 76 01/01/18 00:00 97.8 78 16 131/62 (85) 98 01/01/18 00:00 74 12/31/17 23:00 72 I/O 12/31/17 12/31/17 12/31/17 01/01/18 01/01/18 01/01/18 06:59 14:59 22:59 06:59 14:59 22:59 Intake Total 104 ml 500 ml 240 ml 480 ml 480 ml Output Total 10 ml 3000 ml 0 ml Balance 104 ml 490 ml -2760 ml 480 ml 480 ml Intake Oral 240 ml 480 ml 480 ml IV Total 104 ml Other 500 ml Output Urine Total 0 ml Hemodialysis 3000 ml Estimated Blood Loss 10 ml Result Diagram: 12/31/17 0645 12/31/17 0645 Imaging Last Impressions Foot X-Ray 12/26/17 0000 Signed Impressions: Service Date/Time: Tuesday, December 26, 2017 07:29 - CONCLUSION: 1. Findings concerning for osteomyelitis involving the tuft of the first toe. Phani Vasquez MD Head CT [id number]/[id number] Signed Impressions: Service Date/Time: Monday, December 25, 2017 22:22 - CONCLUSION: No acute intracranial abnormality demonstrated. Eliu Ayala MD Chest X-Ray 12/25/[id number] Signed Impressions: Service Date/Time: Monday, December 25, 2017 20:45 - CONCLUSION: No evidence of acute cardiopulmonary disease. Eliu Ayala MD Procedures None Other Results Microbiology Date/Time Source Procedure Growth Status 12/26/17 04:45 Blood Peripheral Aerobic Blood Culture - Final NO GROWTH IN 5 DAYS Complete 12/26/17 04:45 Blood Peripheral Anaerobic Blood Culture - Final NO GROWTH IN 5 DAYS Complete Objective Remarks Lower extremity physical exam: Vascular: Dorsalis pedis nonpalpable, posterior tibial nonpalpable. Capillary refill time within normal limits to digits 4 right foot. No capillary refill time noted to left foot TMA stump, no capillary refill time noted to distal aspect of right hallux. Edema mildly present bilateral lower extremity. Neuro: Gross sensation intact to bilateral lower extremity. Pinpoint sensation decreased. No hyperalgesia noted to bilateral lower extremity Dermatology: Ischemic right hallux distal aspect with no exposed bone and no purulent drainage stable in nature. Ischemic left Lisfranc amputation. Musculoskeletal: No tenderness to palpation. Medications and IVs Current Medications Medications (Trade) Dose Ordered Sig/April Route Start Time Stop Time Status Last Admin (NS Flush) 2 ml UNSCH PRN IV FLUSH 12/26/17 01:45 (NS Flush) 2 ml BID IV FLUSH 12/26/17 09:00 01/01/18 20:43 (Protonix) 40 mg DAILY PO 12/26/17 09:00 01/01/18 10:30 (Zofran Inj) 4 mg Q6H PRN IV PUSH 12/26/17 01:45 Miscellaneous Information 1 Q361D XX 12/26/17 01:45 12/26/17 01:45 (Chlorhexidine 2% Cloth) Taper DAILY@04 TOP 12/26/17 04:00 12/22/18 03:59 12/31/17 04:00 (Chlorhexidine 2% Cloth) 3 pack UNSCH PRN TOP 12/26/17 01:45 (Odette-Colace) 1 tab BID PO 12/26/17 09:00 01/01/18 10:31 (Milk Of Magnesia Liq) 30 ml Q12H PRN PO 12/26/17 01:45 (Senokot) 17.2 mg Q12H PRN PO 12/26/17 01:45 (Dulcolax Supp) 10 mg DAILY PRN RECTAL 12/26/17 01:45 (Lactulose Liq) 30 ml DAILY PRN PO 12/26/17 01:45 (Symbicort 160-4.5 Mcg Inh) 1 puff Q12HR INH 12/26/17 09:00 01/01/18 20:42 (Vitamin D3) 1,000 units DAILY PO 12/26/17 09:00 01/01/18 10:31 (Norvasc) 5 mg DAILY PO 12/26/17 09:00 01/01/18 10:31 (Cymbalta Dr) 30 mg DAILY PO 12/26/17 09:00 01/01/18 10:31 (Albuterol Neb) 2.5 mg Q2HR NEB PRN NEB 12/26/17 07:15 (D50w (Vial) Inj) 50 ml UNSCH PRN IV PUSH 12/26/17 13:00 12/31/17 21:03 (Glucagon Inj) 1 mg UNSCH PRN OTHER 12/26/17 13:00 (NovoLOG SUPPLEMENTAL SCALE) 1 Q4HR SQ 12/26/17 12:47 01/01/18 12:40 Sodium Chloride 1,000 ml @ 0 mls/hr Q0M PRN OTHER 12/26/17 13:45 (Heparin Inj) 8,000 units UNSCH PRN IV FLUSH 12/26/17 13:45 Sodium Chloride 1,000 ml @ 200 mls/hr Q5H PRN IV 12/26/17 13:45 Sodium Chloride 1,000 ml @ 0 mls/hr Q0M PRN OTHER 12/26/17 13:45 (Mannitol Inj) 12.5 gm UNSCH PRN IV 12/26/17 13:45 Albumin Human 100 ml @ 60 mls/hr UNSCH PRN IV 12/26/17 13:45 (NS Flush) 5 ml UNSCH PRN IV FLUSH 12/26/17 13:45 (Heparin Inj) UNSCH PRN .XX 12/26/17 13:45 (Gentamicin Inj) 20 mg UNSCH PRN OTHER 12/26/17 13:45 (Zofran Inj) 4 mg UNSCH PRN IV PUSH 12/26/17 13:45 (Tylenol) 650 mg UNSCH PRN PO 12/26/17 13:45 (Benadryl) 25 mg UNSCH PRN PO 12/26/17 13:45 (Nitrostat Sl) 0.4 mg UNSCH PRN SL 12/26/17 13:45 12/29/17 08:05 (Catapres) 0.1 mg UNSCH PRN PO 12/26/17 13:45 (Epogen Inj) 10,000 units UNSCH PRN IV PUSH 12/26/17 13:45 12/31/17 17:19 (Gelfoam 12 Mm/7 Mm Top) 1 foam UNSCH PRN TOP 12/26/17 13:45 12/28/17 15:42 (Aspirin Chew) 81 mg DAILY CHEW 12/26/17 15:00 01/01/18 10:31 (Morphine Inj) 2 mg Q3H PRN IV 12/26/17 17:15 12/31/17 04:45 ([place] 7.5-325 Mg) 1 tab Q4H PRN PO 12/27/17 12:15 12/28/17 17:55 (Renvela) 2,400 mg TIDAC PO 12/27/17 17:00 01/01/18 16:44 (Lopressor) 25 mg Q8H PO 12/29/17 08:00 01/01/18 16:43 (Nitroglycerin 2% Oint) 1 inch Q8H TOPICAL 12/29/17 08:00 01/01/18 16:45 (Aspirin) 325 mg CATERING ASSOCIATE PO 12/29/17 09:00 01/02/18 08:59 (fentaNYL INJ) 50 mcg CATERING ASSOCIATE IV PUSH 12/29/17 09:00 01/02/18 08:59 (Versed Inj) 1 mg CATERING ASSOCIATE IV PUSH 12/29/17 09:00 01/02/18 08:59 (Atropine Inj) 0.5 mg UNSCH PRN IV PUSH 12/29/17 09:45 (Toradol Inj) 15 mg Q8HR PRN IM 12/29/17 10:00 01/03/18 09:59 (Levemir Inj) 20 units Q12HR SQ 12/30/17 09:00 01/01/18 10:45 Lactated Ringer's 1,000 ml @ 30 mls/hr Q24H PRN IV 12/31/17 00:45 01/03/18 00:44 Sodium Chloride 500 ml @ 30 mls/hr [id number] PRN IV 12/31/17 00:45 01/03/18 00:44 (Betadine 5% Antisepsis Kit) 1 applic CATERING ASSOCIATE PRN EACH NARE 12/31/17 00:45 01/03/18 00:44 (Chlorhexidine 2% Cloth) 3 pack CATERING ASSOCIATE PRN TOPICAL 12/31/17 00:45 01/03/18 00:44 Ampicillin Sodium/ Sulbactam Sodium 3 gm/Sodium Chloride 100 ml @ 200 mls/hr Q24H IV 12/31/17 18:00 01/01/18 18:29 Assessment and Plan Assessment and Plan 57-year-old male with bilateral ischemic ulcerations Patient examined and evaluated with all questions answered Patient will probably need a more proximal amputation to the left lower extremity, as it seems transmetatarsal amputation performed was revised by outside surgeon who performed a Lisfranc amputation Distal hallux amputation recommended however will discuss with Dr. Ortiz as there are concerns for continued necrosis Patient is concerned for right distal fingertip necrosis, states he discussed with Ada Chester DPM Jan 01, 2018 22:17
[2018-01-02] VITALS (22 sets, daily range): BP systolic 125–140; BP diastolic 57–69; PULSE 70–89; RESP 16–18; TEMP 97.9–98.7; O2SAT 96–98
[2018-01-02] MEDS: LOW DOSE INSULIN NOVOLOG SUPPLEMENTAL SCALE SQ SCH ×6 (04:00→22:49)
[2018-01-02 04:44] LABS: BASOPHIL # 0.1 TH/MM3 (0-0.2); BASOPHIL % 1.3 % (0.0-2.0); EOSINOPHIL # 0.2 TH/MM3 (0-0.4); EOSINOPHIL % 1.9 % (0.0-4.0); HEMOGLOBIN 9.4 GM/DL (13.0-17.0); LYMPH % 8.6 % (9.0-44.0); LYMPHOCYTE # 0.8 TH/MM3 (1.0-4.8); MEAN CELL VOLUME 75.2 FL (80.0-100.0); MEAN CORPUSCULAR HEMOGLOBIN 23.6 PG (27.0-34.0); MEAN CORPUSCULAR HGB CONC 31.3 % (32.0-36.0); MEAN PLATELET VOLUME 8.2 FL (7.0-11.0); MONO % 10.8 % (0.0-8.0); NEUT % 77.4 % (16.0-70.0); PLATELET COUNT 256 TH/MM3 (150-450); RED CELL DISTRIBUTION WIDTH 21.2 % (11.6-17.2); WHITE BLOOD COUNT 9.1 TH/MM3 (4.0-11.0)
[2018-01-02 05:13] LABS: BICARBONATE 32.3 MEQ/L (21.0-32.0); CALCIUM 7.8 MG/DL (8.5-10.1); CREATININE 7.28 MG/DL (0.60-1.30)
[2018-01-02] MEDS: NITROGLYCERIN 2% OINT 1 GM PACKET TOPICAL SCH ×4 (08:00→22:55)
[2018-01-02] MEDS: SEVELAMER CARBONATE 800 MG TAB PO SCH ×3 (08:00→16:25)
[2018-01-02] MEDS: INSULIN DETEMIR 100 UNITS/ML VIAL SQ SCH ×2 (09:00→22:49)
--- NOTE | 2018-01-02 09:20 | HHI.NPPN ---
Subjective General Problems: Anemia, Diabetes Renal Failure: Chronic, End Stage Renal Disease Interval History Seen during dialysis. NPO for AJAY today. (Jasmyne Bee) Review of Systems Musculoskeletal MS: Pain/Stiffness (Jasmyne Bee) Skin Skin: Ulcers Skin Remarks right great toe, left MFA skin changes, non healing (Jasmyne Bee) Objective Data Data Vital Signs Date Time Temp Pulse Resp B/P (MAP) Pulse Ox O2 Delivery O2 Flow Rate FiO2 01/02/18 07:45 98.7 76 18 129/67 (87) 97 01/02/18 07:45 97 Room Air 01/02/18 06:00 76 01/02/18 05:00 74 01/02/18 04:00 75 01/02/18 04:00 98.6 76 16 125/63 (83) 98 01/02/18 03:00 76 01/02/18 02:00 74 01/02/18 01:00 72 01/02/18 00:00 75 01/02/18 00:00 97.9 79 16 128/68 (88) 96 01/01/18 23:00 74 01/01/18 22:00 78 01/01/18 21:00 78 01/01/18 20:01 96 21 01/01/18 20:00 Room Air 01/01/18 20:00 82 01/01/18 20:00 98.0 82 16 145/76 (99) 99 01/01/18 18:00 78 01/01/18 17:00 78 01/01/18 16:00 98.6 72 17 119/62 (81) 97 01/01/18 16:00 76 01/01/18 15:00 75 01/01/18 14:00 74 01/01/18 13:00 84 01/01/18 12:00 74 01/01/18 11:54 98.4 74 18 126/70 (88) 98 01/01/18 11:00 75 01/01/18 10:00 78 (Jasmyne Bee) -: 01/02/18 0425 01/02/18 0425 Tubes & Lines Comment Ta right chest (Jasmyne Bee) Physical Exam General Appearance: Well Developed, Well Nourished, No Acute Distress, Comfortable (Jasmyne Bee) Eyes Eye Exam: Pupils Equal (Jasmyne Bee) Neck Neck Exam: Neck Supple (Jasmyne Bee) Pulmonary Resp Exam: Clear Bilaterally, Breath Sounds Equal (Jasmyne Bee) Cardiology CV Exam: Regular, Normal Sinus Rhythm (Jasmyne Bee) Gastrointestinal/Abdomen GI Exam: Soft, Non-Tender, Bowel Sounds Present (Jasmyne Bee) Musculoskeletal MS Exam: Joints Intact, Good Strength MS Remarks left midfoot amputation, no skin flap bone visible, dark edges with gangrene/eschar; brenda intact (Jasmyne Bee) Integumentary Skin Exam: Warm, Dry Skin Remarks see above right great toe with nail changes. (Jasmyne Bee) Extremeties Extremities Exam: No Edema, Pedal Pulses Palpable Extremeties Remarks left AVF +thrill, bruit (Jasmyne Bee) Neurologic Neuro Exam: Alert, Awake, Oriented, Speech Clear, Moving All Extremities (Jasmyne Bee) Psychiatric Psych Exam: Appropriate Responses (Jasmyne Bee) Assessment/Plan Discussed Condition With: Patient Assessment Summary: Anemia of CKD, Hypertension, Diabetes Mellitus, End Stage Renal Disease Problem List: (1) ESRD (end stage renal disease) ICD Codes: N18.6 - End-stage renal disease Status: Resolved Plan: Seen during dialysis today on a 2K, 350 BFR, ogal 2L Continue HD on MWF Using AVF left arm for HD He has existing HD arrangements in place Avoid IVF administration, gadolinium in contraindicated High protein diet ordered with protein supplements when no longer NPO Repeat labs intermittently. (2) Osteomyelitis ICD Codes: M86.9 - Osteomyelitis, unspecified Status: Acute Plan: ID and vascular following with podiatry On Unasyn s/p bilateral baloon angioplasty Possible L BKA if no improvement. Vascular recommends to wait right sided amputations until after revascularization to assess for improvement. Possible outpatient follow up vs. amputation this admission. Cultures are negative at this time. Continue to monitor. Unclear if we can remove the Ta; if antibiotics will be required at discharge consider leaving it in. ID assistance on this matter is appreciated. (3) PAD (peripheral artery disease) ICD Codes: I73.9 - Peripheral vascular disease, unspecified Status: Chronic Plan: See above Needs wound care to left foot/amputation site. (4) Bone metabolism disorder ICD Codes: E88.9 - Metabolic disorder, unspecified; M90.80 - Osteopathy in diseases classified elsewhere, unspecified site Status: Acute Plan: Phosphorus has been very high, On high dose Renvela with meals Advised binder compliance Repeat level ordered (5) DKA (diabetic ketoacidoses) ICD Codes: E13.10 - Other specified diabetes mellitus with ketoacidosis without coma Status: Acute Plan: Labile blood sugar A1c 10.7 On Levemir Brittle DM 1 (6) HTN (hypertension) ICD Codes: I10 - Essential (primary) hypertension Status: Chronic Plan: Continue home medications, titrate as needed Permanent Comment: Last Edited By: Jasmyne Bee on Jul 11, 2017 15:31 (7) Anemia ICD Codes: D64.9 - Anemia, unspecified Plan: Epogen with dialysis (8) Hyperkalemia ICD Codes: E87.5 - Hyperkalemia Status: Acute Plan: Improved. Continue to monitor. (Jasmyne Bee) Plan patient was seen and examined. Seen during dialysis. On 3K. Will have vascular surgery reevaluate him. Has ischemic tips of the fingers on the right side. May need amputation of left foot. Control phosphorus. Poor prognosis. (Maurice Schultz MD) Problem Qualifiers (1) Osteomyelitis: Qualified Codes: M86.8X7 - Other osteomyelitis, ankle and foot (2) DKA (diabetic ketoacidoses): Qualified Codes: E10.11 - Type 1 diabetes mellitus with ketoacidosis with coma (3) Anemia: Qualified Codes: N18.6 - End stage renal disease; D63.1 - Anemia in chronic kidney disease; Z99.2 - Dependence on renal dialysis Jasmyne Bee Jan 02, 2018 09:20 Maurice Schultz MD Jan 02, 2018 09:29
--- NOTE | 2018-01-02 12:39 | HHI.PR ---
Subjective Remarks Follow-up acute pericarditis/uncontrolled diabetes type 2/osteomyelitis/chest pain/end-stage renal disease 12/29/17-patient seen and examined, status post angio this a.m., lethargic. Case discussed with nephrology who will plan for hemodialysis today. Blood glucose elevated 12/30/17-patient seen and examined, still lethargic. Hemodialysis disease a.m. Blood glucose still elevated. Afebrile 12/31/17-patient seen and examined, he had angio this AM. Stable 01/01/18-patient seen and examined, requesting his diet to be increased. NO complaint of right leg pain.He had bilateral angiogram yesterday with balloon angioplasty 01/02/18-patient seen and examined, had hemodialysis today. Currently nothing by mouth pending AJAY. States he would like to be discharged home Objective Vitals Vital Signs Date Time Temp Pulse Resp B/P (MAP) Pulse Ox O2 Delivery O2 Flow Rate FiO2 01/02/18 12:05 98.0 78 18 140/69 (92) 97 01/02/18 12:01 78 01/02/18 07:45 98.7 76 18 129/67 (87) 97 01/02/18 07:45 97 Room Air 01/02/18 06:00 76 01/02/18 05:00 74 01/02/18 04:00 75 01/02/18 04:00 98.6 76 16 125/63 (83) 98 01/02/18 03:00 76 01/02/18 02:00 74 01/02/18 01:00 72 01/02/18 00:00 75 01/02/18 00:00 97.9 79 16 128/68 (88) 96 01/01/18 23:00 74 01/01/18 22:00 78 01/01/18 21:00 78 01/01/18 20:01 96 21 01/01/18 20:00 Room Air 01/01/18 20:00 82 01/01/18 20:00 98.0 82 16 145/76 (99) 99 01/01/18 18:00 78 01/01/18 17:00 78 01/01/18 16:00 98.6 72 17 119/62 (81) 97 01/01/18 16:00 76 01/01/18 15:00 75 01/01/18 14:00 74 01/01/18 13:00 84 I/O 01/01/18 01/01/18 01/01/18 01/02/18 01/02/18 01/02/18 07:00 15:00 23:00 07:00 15:00 23:00 Intake Total 480 ml 480 ml Output Total 0 ml 2000 ml Balance 480 ml 480 ml -2000 ml Intake Oral 480 ml 480 ml Output Urine Total 0 ml Hemodialysis 2000 ml Result Diagram: 01/02/1842401/02/18424 Objective Remarks GENERAL: lethargic SKIN: Warm and dry. Left big toe gangrene. Dressing over right foot HEAD: Normocephalic. EYES: No scleral icterus. No injection or drainage. NECK: Supple, trachea midline. No JVD or lymphadenopathy. CARDIOVASCULAR: Regular rate and rhythm without murmurs, gallops, or rubs. RESPIRATORY: Breath sounds equal bilaterally. No accessory muscle use. GASTROINTESTINAL: Abdomen soft, non-tender, nondistended. MUSCULOSKELETAL: No cyanosis, or edema. BACK: Nontender without obvious deformity. No CVA tenderness. A/P Problem List: (1) End stage renal disease ICD Code: N18.6 - End-stage renal disease Status: Chronic (2) Ischemic ulcer diabetic foot ICD Code: E11.621 - Type 2 diabetes mellitus with foot ulcer; L97.509 - Non- pressure chronic ulcer of other part of unspecified foot with unspecified severity Status: Acute (3) Diabetes mellitus with hyperglycemia ICD Code: E11.65 - Type 2 diabetes mellitus with hyperglycemia Status: Acute (4) PAD (peripheral artery disease) ICD Code: I73.9 - Peripheral vascular disease, unspecified (5) Osteomyelitis ICD Code: M86.9 - Osteomyelitis, unspecified Status: Acute Assessment and Plan 57-year-old man with 1. Acute toxic metabolic encephalopathy/Peripheral Neuropathy/Depression CT brain negative. 2. COPD/Tobacco dependence on Symbicort 160/4.5 2 puffs inhaled twice a day 3. Hypertension/Peripheral Artery Disease status post Left posterior tibial artery angioplasty 09/24/17 Dr Ortiz Amlodipine 5 mg daily and Lisinopril 10 mg daily 4. ESRD on Hemodialysis M/W/F, Nephrology specialist following Hyperkalemia-Resolved 5. Leukocytosis/osteomyelitis of the left foot Left second toe amputation 07/11/17 Left Posterior tibial artery angioplasty 09/24/17 I and D Left foot 09/28/17 left foot transmetatarsal amputation 09/26/17 Dr. Judge Poor wound healing and dry gangrene as well as probable wet gangrene noted ID and podiatry ff Currently on Zosyn 2.25 grams IV q 8 hours ID specialist and Vascular Surgery following on Zosyn, s/p bilateral angiogram with balloon angioplasty 12/31/17, possible Left BKA if no improvement Patient will likely need more amputation per podiatry AJAY pending today 01/02/18 6. Anemia of chronic disease 7. DKA resolved/DM II On Levemir 20 units every 12 hours STEMI on 12/29/17 C without any stent placement PROPH: Heparin 5000 units subcutaneous every 12 hours for DVT prophylaxis. Protonix 40 mg by mouth daily Problem Qualifiers (1) Osteomyelitis: Qualified Codes: M86.8X7 - Other osteomyelitis, ankle and foot Emmanuel French MD Jan 02, 2018 12:39
[2018-01-02] MEDS: METOPROLOL TARTRATE 25 MG TAB PO SCH ×4 (13:34→22:54)
[2018-01-02] MEDS: DOCUSATE SODIUM 50 MG/SENNA 8.6 MG TAB PO SCH ×2 (13:34→22:50)
[2018-01-02] MEDS: DULoxetine HCl DR 30 MG CAP PO SCH (13:34)
[2018-01-02] MEDS: CHOLECALCIFEROL (VIT D3) 1000 UNIT TAB PO SCH (13:35)
[2018-01-02] MEDS: PANTOPRAZOLE SOD 40 MG DELAYED RELEASE TAB PO SCH (13:35)
[2018-01-02] MEDS: ASPIRIN 81 MG CHEW TAB CHEW SCH (13:35)
[2018-01-02] MEDS: amLODIPine BESYLATE 5 MG TAB PO SCH (13:35)
[2018-01-02] MEDS: SODIUM CHLORIDE 0.9% FLUSH 10 ML FLUSH IV FLUSH SCH ×2 (13:36→22:50)
[2018-01-02] MEDS: BUDESONIDE-FORMOTEROL 160/4.5 MCG INHALER INH SCH ×2 (13:36→22:50)
[2018-01-02] MEDS ORDERED: PROPOFOL 200 MG/20 ML AMP ONE (13:58)
--- NOTE | 2018-01-02 15:21 | PD.CARD.PN ---
Subjective Subjective Remarks No angina or SOB, angry he is NPO Objective Medications Current Medications Medications (Trade) Dose Ordered Sig/April Route Start Time Stop Time Status Last Admin (NS Flush) 2 ml UNSCH PRN IV FLUSH 12/26/17 01:45 (NS Flush) 2 ml BID IV FLUSH 12/26/17 09:00 01/02/18 13:36 (Protonix) 40 mg DAILY PO 12/26/17 09:00 01/02/18 13:35 (Zofran Inj) 4 mg Q6H PRN IV PUSH 12/26/17 01:45 Miscellaneous Information 1 Q361D XX 12/26/17 01:45 12/26/17 01:45 (Chlorhexidine 2% Cloth) Taper DAILY@04 TOP 12/26/17 04:00 12/22/18 03:59 12/31/17 04:00 (Chlorhexidine 2% Cloth) 3 pack UNSCH PRN TOP 12/26/17 01:45 (Odette-Colace) 1 tab BID PO 12/26/17 09:00 01/02/18 13:34 (Milk Of Magnesia Liq) 30 ml Q12H PRN PO 12/26/17 01:45 (Senokot) 17.2 mg Q12H PRN PO 12/26/17 01:45 (Dulcolax Supp) 10 mg DAILY PRN RECTAL 12/26/17 01:45 (Lactulose Liq) 30 ml DAILY PRN PO 12/26/17 01:45 (Symbicort 160-4.5 Mcg Inh) 1 puff Q12HR INH 12/26/17 09:00 01/02/18 13:36 (Vitamin D3) 1,000 units DAILY PO 12/26/17 09:00 01/02/18 13:35 (Norvasc) 5 mg DAILY PO 12/26/17 09:00 01/02/18 13:35 (Cymbalta Dr) 30 mg DAILY PO 12/26/17 09:00 01/02/18 13:34 (Albuterol Neb) 2.5 mg Q2HR NEB PRN NEB 12/26/17 07:15 (D50w (Vial) Inj) 50 ml UNSCH PRN IV PUSH 12/26/17 13:00 12/31/17 21:03 (Glucagon Inj) 1 mg UNSCH PRN OTHER 12/26/17 13:00 (NovoLOG SUPPLEMENTAL SCALE) 1 Q4HR SQ 12/26/17 12:47 01/01/18 12:40 Sodium Chloride 1,000 ml @ 0 mls/hr Q0M PRN OTHER 12/26/17 13:45 (Heparin Inj) 8,000 units UNSCH PRN IV FLUSH 12/26/17 13:45 Sodium Chloride 1,000 ml @ 200 mls/hr Q5H PRN IV 12/26/17 13:45 Sodium Chloride 1,000 ml @ 0 mls/hr Q0M PRN OTHER 12/26/17 13:45 (Mannitol Inj) 12.5 gm UNSCH PRN IV 12/26/17 13:45 Albumin Human 100 ml @ 60 mls/hr UNSCH PRN IV 12/26/17 13:45 (NS Flush) 5 ml UNSCH PRN IV FLUSH 12/26/17 13:45 (Heparin Inj) UNSCH PRN .XX 12/26/17 13:45 (Gentamicin Inj) 20 mg UNSCH PRN OTHER 12/26/17 13:45 (Zofran Inj) 4 mg UNSCH PRN IV PUSH 12/26/17 13:45 (Tylenol) 650 mg UNSCH PRN PO 12/26/17 13:45 (Benadryl) 25 mg UNSCH PRN PO 12/26/17 13:45 (Nitrostat Sl) 0.4 mg UNSCH PRN SL 12/26/17 13:45 12/29/17 08:05 (Catapres) 0.1 mg UNSCH PRN PO 12/26/17 13:45 (Epogen Inj) 10,000 units UNSCH PRN IV PUSH 12/26/17 13:45 12/31/17 17:19 (Gelfoam 12 Mm/7 Mm Top) 1 foam UNSCH PRN TOP 12/26/17 13:45 12/28/17 15:42 (Aspirin Chew) 81 mg DAILY CHEW 12/26/17 15:00 01/02/18 13:35 (Morphine Inj) 2 mg Q3H PRN IV 12/26/17 17:15 12/31/17 04:45 (Leary 7.5-325 Mg) 1 tab Q4H PRN PO 12/27/17 12:15 12/28/17 17:55 (Renvela) 2,400 mg TIDAC PO 12/27/17 17:00 01/01/18 16:44 (Lopressor) 25 mg Q8H PO 12/29/17 08:00 01/02/18 13:34 (Nitroglycerin 2% Oint) 1 inch Q8H TOPICAL 12/29/17 08:00 01/01/18 16:45 (Atropine Inj) 0.5 mg UNSCH PRN IV PUSH 12/29/17 09:45 (Toradol Inj) 15 mg Q8HR PRN IM 12/29/17 10:00 01/03/18 09:59 (Levemir Inj) 20 units Q12HR SQ 12/30/17 09:00 01/01/18 10:45 Lactated Ringer's 1,000 ml @ 30 mls/hr Q24H PRN IV 12/31/17 00:45 01/03/18 00:44 Sodium Chloride 500 ml @ 30 mls/hr [id number] PRN IV 12/31/17 00:45 01/03/18 00:44 (Betadine 5% Antisepsis Kit) 1 applic LITHOGRAPHER HELPER PRN EACH NARE 12/31/17 00:45 01/03/18 00:44 (Chlorhexidine 2% Cloth) 3 pack LITHOGRAPHER HELPER PRN TOPICAL 12/31/17 00:45 01/03/18 00:44 Ampicillin Sodium/ Sulbactam Sodium 3 gm/Sodium Chloride 100 ml @ 200 mls/hr Q24H IV 12/31/17 18:00 01/01/18 18:29 Vital Signs / I&O Vital Signs Date Time Temp Pulse Resp B/P (MAP) Pulse Ox O2 Delivery O2 Flow Rate FiO2 01/02/18 13:00 78 01/02/18 12:30 76 01/02/18 12:05 98.0 78 18 140/69 (92) 97 01/02/18 12:01 78 01/02/18 11:05 97 21 01/02/18 07:45 98.7 76 18 129/67 (87) 97 01/02/18 07:45 97 Room Air 01/02/18 07:00 77 01/02/18 06:00 76 01/02/18 05:00 74 01/02/18 04:00 75 01/02/18 04:00 98.6 76 16 125/63 (83) 98 01/02/18 03:00 76 01/02/18 02:00 74 01/02/18 01:00 72 01/02/18 00:00 75 01/02/18 00:00 97.9 79 16 128/68 (88) 96 01/01/18 23:00 74 01/01/18 22:00 78 01/01/18 21:00 78 01/01/18 20:01 96 21 01/01/18 20:00 Room Air 01/01/18 20:00 82 01/01/18 20:00 98.0 82 16 145/76 (99) 99 01/01/18 18:00 78 01/01/18 17:00 78 01/01/18 16:00 98.6 72 17 119/62 (81) 97 01/01/18 16:00 76 I/O 01/01/18 01/01/18 01/01/18 01/02/18 01/02/18 01/02/18 07:00 15:00 23:00 07:00 15:00 23:00 Intake Total 480 ml 480 ml Output Total 0 ml 2000 ml Balance 480 ml 480 ml -2000 ml Intake Oral 480 ml 480 ml Output Urine Total 0 ml Hemodialysis 2000 ml Physical Exam GENERAL: In NAD. SKIN: Warm and dry. HEAD: Normocephalic. EYES: No scleral icterus. No injection or drainage. NECK: Supple, trachea midline. No JVD or lymphadenopathy. CARDIOVASCULAR: Regular rate and rhythm without murmurs, gallops, or rubs. RESPIRATORY: Breath sounds equal bilaterally. No accessory muscle use. GASTROINTESTINAL: Abdomen soft, non-tender, nondistended. MUSCULOSKELETAL: No cyanosis, mild edema. S/p L foot TMT amputation Laboratory Laboratory Tests Test 01/02/18 04:25 White Blood Count 9.1 TH/MM3 Red Blood Count 4.00 MIL/MM3 Hemoglobin 9.4 GM/DL Hematocrit 30.0 % Mean Corpuscular Volume 75.2 FL Mean Corpuscular Hemoglobin 23.6 PG Mean Corpuscular Hemoglobin Concent 31.3 % Red Cell Distribution Width 21.2 % Platelet Count 256 TH/MM3 Mean Platelet Volume 8.2 FL Neutrophils (%) (Auto) 77.4 % Lymphocytes (%) (Auto) 8.6 % Monocytes (%) (Auto) 10.8 % Eosinophils (%) (Auto) 1.9 % Basophils (%) (Auto) 1.3 % Neutrophils # (Auto) 7.0 TH/MM3 Lymphocytes # (Auto) 0.8 TH/MM3 Monocytes # (Auto) 1.0 TH/MM3 Eosinophils # (Auto) 0.2 TH/MM3 Basophils # (Auto) 0.1 TH/MM3 CBC Comment DIFF FINAL Differential Comment Blood Urea Nitrogen 51 MG/DL Creatinine 7.28 MG/DL Random Glucose 208 MG/DL Calcium Level 7.8 MG/DL Sodium Level 135 MEQ/L Potassium Level 4.0 MEQ/L Chloride Level 92 MEQ/L Carbon Dioxide Level 32.3 MEQ/L Anion Gap 11 MEQ/L Estimat Glomerular Filtration Rate 9 ML/MIN Phosphorus Level 4.5 MG/DL Assessment and Plan Problem List: (1) Chest pain ICD Codes: R07.9 - Chest pain, unspecified Status: Acute Permanent Comment: Patient poor historian. Findings are most c/w acute pericarditis. AMI needs exclusion. Last Edited By: Dima Patel on Dec 29, 2017 08:51 (2) Pericarditis ICD Codes: I31.9 - Disease of pericardium, unspecified (3) Elevated troponin ICD Codes: R74.8 - Abnormal levels of other serum enzymes (4) Cardiomyopathy ICD Codes: I42.9 - Cardiomyopathy, unspecified (5) Altered mental status ICD Codes: R41.82 - Altered mental status, unspecified (6) ESRD on hemodialysis ICD Codes: N18.6 - End stage renal disease; Z99.2 - Dependence on renal dialysis Status: Chronic (7) COPD (chronic obstructive pulmonary disease) ICD Codes: J44.9 - Chronic obstructive pulmonary disease, unspecified Status: Chronic (8) DKA (diabetic ketoacidoses) ICD Codes: E13.10 - Other specified diabetes mellitus with ketoacidosis without coma Status: Acute (9) DM (diabetes mellitus) ICD Codes: E11.9 - Type 2 diabetes mellitus without complications Status: Chronic (10) HTN (hypertension) ICD Codes: I10 - Essential (primary) hypertension Status: Chronic Permanent Comment: Last Edited By: Jasmyne Bee on Jul 11, 2017 15:31 (11) Cellulitis of foot, left ICD Codes: L03.116 - Cellulitis of left lower limb Status: Acute (12) Osteomyelitis ICD Codes: M86.9 - Osteomyelitis, unspecified Status: Acute Assessment and Plan No new cardiac issues. Had uneventful dialysis this AM. Recent cath for diffuse ST elevation, diagnosed with pericarditis. No significant obstructive CAD. Troponin slightly elevated, likely secondary to ESRD, possibly also pericarditis. Echo with moderate LV systolic dysfunction. Continue abx for foot osteomyelitis, podiatric eval in progress. Continue monitoring, increase activity, PT. Ischemic distal digits, possibly embolic vs severe ischemia vs vasculitis. ID and vasc surgery eval in progress. AJAY today to evaluate for endocarditis. Problem Qualifiers (1) Altered mental status: Qualified Codes: R41.82 - Altered mental status, unspecified (2) DKA (diabetic ketoacidoses): (3) Osteomyelitis: Qualified Codes: M86.8X7 - Other osteomyelitis, ankle and foot Amrit Hanley MD Jan 02, 2018 15:21
--- NOTE | 2018-01-02 16:07 | CF ---
cc: Amrit Hanley MD DATE: INDICATION: Ischemic digits, evaluation for endocarditis and cardiac source of emboli. PROCEDURE PERFORMED: Transesophageal echocardiogram. DESCRIPTION OF PROCEDURE: After the patient was sedated by anesthesia, transesophageal probe was placed without difficulties. Tomographic images were obtained. Left atrial appendage was visualized and there was no evidence of left atrial thrombus. Left ventricular function was decreased to a moderate degree with estimated ejection fraction of 40% with moderate global hypokinesis. Mitral valve was structurally normal. There was no evidence of mitral stenosis. There was evidence of mild mitral regurgitation. There was no evidence of mitral valve vegetations. Tricuspid valve was structurally normal. There was no evidence of tricuspid valve vegetations. There was evidence of moderate tricuspid regurgitation. Aortic valve was thickened and mildly calcified. There was no evidence aortic valve vegetations. There was no evidence of aortic stenosis. There was evidence of a trace aortic insufficiency. Pulmonary valve was visualized and there was no evidence of significant pulmonary stenosis or regurgitation. Bubble study was performed, there was no evidence of right to left shunt. Descending thoracic aorta had mild plaque. DIAGNOSES: 1. No evidence of valvular vegetations. 2. No evidence of patent foramen ovale. 3. Moderate left ventricular systolic dysfunction. 4. Aortic sclerosis without stenosis. 5. Mild mitral regurgitation. 6. Moderate tricuspid regurgitation. IMPRESSION: No evidence of cardiac source of emboli or endocarditis. Amrit Hanley MD OQ/SB , 03:19 PM , 04:05 PM [facility]ITAL[facility]ovanna
[2018-01-02] MEDS: AMPICILLIN-SULBACTAM INJ 3 GM in SODIUM CHLORIDE 0.9% INJ 100 ML IV SCH (18:22)
[2018-01-03] VITALS (22 sets, daily range): BP systolic 115–132; BP diastolic 51–72; PULSE 67–77; RESP 16–18; TEMP 97.5–98.6; O2SAT 97–99
[2018-01-03] MEDS: LOW DOSE INSULIN NOVOLOG SUPPLEMENTAL SCALE SQ SCH ×5 (03:57→22:00)
[2018-01-03] MEDS: CHLORHEXIDINE GLUCONATE 2 % 1 PACK (2 CLOTHS) TOP SCH (04:00)
[2018-01-03] MEDS: SEVELAMER CARBONATE 800 MG TAB PO SCH ×3 (08:37→17:10)
[2018-01-03] MEDS: METOPROLOL TARTRATE 25 MG TAB PO SCH ×2 (08:37→17:10)
[2018-01-03] MEDS: CHOLECALCIFEROL (VIT D3) 1000 UNIT TAB PO SCH (08:38)
[2018-01-03] MEDS: SODIUM CHLORIDE 0.9% FLUSH 10 ML FLUSH IV FLUSH SCH ×2 (08:38→21:59)
[2018-01-03] MEDS: amLODIPine BESYLATE 5 MG TAB PO SCH (08:38)
[2018-01-03] MEDS: DOCUSATE SODIUM 50 MG/SENNA 8.6 MG TAB PO SCH ×2 (08:38→21:59)
[2018-01-03] MEDS: ASPIRIN 81 MG CHEW TAB CHEW SCH (08:38)
[2018-01-03] MEDS: DULoxetine HCl DR 30 MG CAP PO SCH (08:38)
[2018-01-03] MEDS: PANTOPRAZOLE SOD 40 MG DELAYED RELEASE TAB PO SCH (08:38)
[2018-01-03] MEDS: INSULIN DETEMIR 100 UNITS/ML VIAL SQ SCH ×2 (08:39→22:12)
[2018-01-03] MEDS: BUDESONIDE-FORMOTEROL 160/4.5 MCG INHALER INH SCH ×2 (08:40→21:59)
[2018-01-03] MEDS: NITROGLYCERIN 2% OINT 1 GM PACKET TOPICAL SCH ×2 (08:44→15:03)
--- NOTE | 2018-01-03 10:44 | HHI.PR ---
Subjective Remarks Follow-up acute pericarditis/uncontrolled diabetes type 2/osteomyelitis/chest pain/end-stage renal disease 12/29/17-patient seen and examined, status post angio this a.m., lethargic. Case discussed with nephrology who will plan for hemodialysis today. Blood glucose elevated 12/30/17-patient seen and examined, still lethargic. Hemodialysis disease a.m. Blood glucose still elevated. Afebrile 12/31/17-patient seen and examined, he had angio this AM. Stable 01/01/18-patient seen and examined, requesting his diet to be increased. NO complaint of right leg pain.He had bilateral angiogram yesterday with balloon angioplasty 01/02/18-patient seen and examined, had hemodialysis today. Currently nothing by mouth pending AJAY. States he would like to be discharged home 01/03/18-patient seen and examined, AJAY was negative yesterday and patient states he is doing much better today Objective Vitals Vital Signs Date Time Temp Pulse Resp B/P (MAP) Pulse Ox O2 Delivery O2 Flow Rate FiO2 01/03/18 10:02 75 01/03/18 09:00 72 01/03/18 08:03 97 Room Air 01/03/18 08:03 98.3 71 18 123/54 (77) 97 01/03/18 08:00 68 01/03/18 07:00 72 01/03/18 05:00 70 01/03/18 04:00 70 01/03/18 03:00 67 01/03/18 03:00 98.6 67 16 115/51 (72) 97 01/03/18 02:00 72 01/03/18 01:00 70 01/03/18 00:00 73 01/02/18 23:00 98.2 72 18 129/57 (81) 98 01/02/18 23:00 78 01/02/18 22:00 70 01/02/18 21:00 73 01/02/18 20:00 97 Room Air 01/02/18 20:00 74 01/02/18 19:00 98.4 89 16 140/63 (88) 97 01/02/18 19:00 74 01/02/18 18:00 74 01/02/18 17:00 76 01/02/18 16:16 97.9 89 18 140/68 (92) 96 01/02/18 13:00 78 01/02/18 12:30 76 01/02/18 12:05 98.0 78 18 140/69 (92) 97 01/02/18 12:01 78 01/02/18 11:05 97 21 I/O 01/02/18 01/02/18 01/02/18 01/03/18 01/03/18 01/03/18 07:00 15:00 23:00 07:00 15:00 23:00 Intake Total 240 ml Output Total 2000 ml Balance -2000 ml 240 ml Intake Oral 240 ml Hemodialysis 2000 ml # Bowel Movements 1 Result Diagram: 01/02/18 0425 01/02/18 0425 Imaging Last Impressions Foot X-Ray 12/26/17 0000 Signed Impressions: Service Date/Time: Tuesday, December 26, 2017 07:29 - CONCLUSION: 1. Findings concerning for osteomyelitis involving the tuft of the first toe. Phani Vasquez MD Head CT [id number]/[id number] Signed Impressions: Service Date/Time: Monday, December 25, 2017 22:22 - CONCLUSION: No acute intracranial abnormality demonstrated. Eliu Ayala MD Chest X-Ray [id number]/25/[id number] Signed Impressions: Service Date/Time: Monday, December 25, 2017 20:45 - CONCLUSION: No evidence of acute cardiopulmonary disease. Eliu Ayala MD Objective Remarks GENERAL: lethargic SKIN: Warm and dry. Left big toe gangrene. Dressing over right foot. black fingers HEAD: Normocephalic. EYES: No scleral icterus. No injection or drainage. NECK: Supple, trachea midline. No JVD or lymphadenopathy. CARDIOVASCULAR: Regular rate and rhythm without murmurs, gallops, or rubs. RESPIRATORY: Breath sounds equal bilaterally. No accessory muscle use. GASTROINTESTINAL: Abdomen soft, non-tender, nondistended. MUSCULOSKELETAL: No cyanosis, or edema. BACK: Nontender without obvious deformity. No CVA tenderness. A/P Problem List: (1) PAD (peripheral artery disease) ICD Code: I73.9 - Peripheral vascular disease, unspecified Status: Chronic (2) Diabetic nephropathy ICD Code: E11.21 - Diabetic nephropathy Status: Chronic (3) CKD (chronic kidney disease) stage V requiring chronic dialysis ICD Code: N18.6 - End stage renal disease; Z99.2 - Dependence on renal dialysis Status: Chronic (4) Dyslipidemia ICD Code: E78.5 - Dyslipidemia Status: Chronic (5) DM (diabetes mellitus) ICD Code: E11.9 - Type 2 diabetes mellitus without complications Status: Chronic (6) HTN (hypertension) ICD Code: I10 - Essential (primary) hypertension Status: Chronic Permanent Comment: Last Edited By: Jasmyne Bee on Jul 11, 2017 15:31 (7) PAD (peripheral artery disease) ICD Code: I73.9 - Peripheral vascular disease, unspecified Status: Chronic (8) Ischemic ulcer diabetic foot ICD Code: E11.621 - Type 2 diabetes mellitus with foot ulcer; L97.509 - Non- pressure chronic ulcer of other part of unspecified foot with unspecified severity Status: Acute (9) ESRD on hemodialysis ICD Code: N18.6 - End stage renal disease; Z99.2 - Dependence on renal dialysis Status: Chronic (10) COPD (chronic obstructive pulmonary disease) ICD Code: J44.9 - Chronic obstructive pulmonary disease, unspecified Status: Chronic (11) DKA (diabetic ketoacidoses) ICD Code: E13.10 - Other specified diabetes mellitus with ketoacidosis without coma Status: Acute (12) Encephalopathy acute ICD Code: G93.40 - Encephalopathy, unspecified Status: Acute (13) Osteomyelitis ICD Code: M86.9 - Osteomyelitis, unspecified Status: Acute Assessment and Plan 57-year-old man with 1. Acute toxic metabolic encephalopathy/Peripheral Neuropathy/Depression Resolved CT brain negative. 2. COPD/Tobacco dependence on Symbicort 160/4.5 2 puffs inhaled twice a day 3. Hypertension/Peripheral Artery Disease/Ischemic distal digits status post Left posterior tibial artery angioplasty 09/24/17 Dr Ortiz Amlodipine 5 mg daily and Lisinopril 10 mg daily 4. ESRD on Hemodialysis M/W/F, Nephrology specialist following Hyperkalemia-Resolved 5. Osteomyelitis of the left foot Left second toe amputation 07/11/17 Left Posterior tibial artery angioplasty 09/24/17 I and D Left foot 09/28/17 left foot transmetatarsal amputation 09/26/17 Dr. Judge Poor wound healing and dry gangrene as well as probable wet gangrene noted ID and podiatry ff Currently on Unasyn IV, status post Zosyn ID specialist and Vascular Surgery s/p bilateral angiogram with balloon angioplasty 12/31/17, possible Left BKA if no improvement Patient will likely need more amputation per podiatry AJAY negative for endocarditis 01/02/18 6. Anemia of chronic disease 7. DKA resolved/DM II On Levemir 20 units every 12 hours STEMI on 12/29/17 [facility] without any stent placement PROPH: Heparin 5000 units subcutaneous every 12 hours for DVT prophylaxis. Protonix 40 mg by mouth daily Problem Qualifiers (1) DKA (diabetic ketoacidoses): (2) Osteomyelitis: Qualified Codes: M86.8X7 - Other osteomyelitis, ankle and foot Emmanuel French MD Jan 03, 2018 10:44
--- NOTE | 2018-01-03 10:46 | HHI.NPPN ---
Subjective General Problems: Anemia, Diabetes Renal Failure: Chronic, End Stage Renal Disease Interval History AJAY not showing vegetation. He is up eating breakfast. No new complaints. Dialyzed yesterday without incident. (Jasmyne Bee) Review of Systems Musculoskeletal MS: Pain/Stiffness (Jasmyne Bee) Skin Skin: Ulcers Skin Remarks right great toe, left MFA skin changes, non healing (Jasmyne Bee) Objective Data Data Vital Signs Date Time Temp Pulse Resp B/P (MAP) Pulse Ox O2 Delivery O2 Flow Rate FiO2 01/03/18 10:02 75 01/03/18 09:00 72 01/03/18 08:03 97 Room Air 01/03/18 08:03 98.3 71 18 123/54 (77) 97 01/03/18 08:00 68 01/03/18 07:00 72 01/03/18 05:00 70 01/03/18 04:00 70 01/03/18 03:00 67 01/03/18 03:00 98.6 67 16 115/51 (72) 97 01/03/18 02:00 72 01/03/18 01:00 70 01/03/18 00:00 73 01/02/18 23:00 98.2 72 18 129/57 (81) 98 01/02/18 23:00 78 01/02/18 22:00 70 01/02/18 21:00 73 01/02/18 20:00 97 Room Air 01/02/18 20:00 74 01/02/18 19:00 98.4 89 16 140/63 (88) 97 01/02/18 19:00 74 01/02/18 18:00 74 01/02/18 17:00 76 01/02/18 16:16 97.9 89 18 140/68 (92) 96 01/02/18 13:00 78 01/02/18 12:30 76 01/02/18 12:05 98.0 78 18 140/69 (92) 97 01/02/18 12:01 78 01/02/18 11:05 97 21 (Jasmyne Bee) -: 01/02/18 0425 01/02/18 0425 Tubes & Lines Comment Ta right chest (Jasmyne Bee) Physical Exam General Appearance: Well Developed, Well Nourished, No Acute Distress, Comfortable (Jasmyne Bee) Eyes Eye Exam: Pupils Equal (Jasmyne Bee) Neck Neck Exam: Neck Supple (Jasmyne Bee) Pulmonary Resp Exam: Clear Bilaterally, Breath Sounds Equal (Jasmyne Bee) Cardiology CV Exam: Regular, Normal Sinus Rhythm (Jasmyne Bee) Gastrointestinal/Abdomen GI Exam: Soft, Non-Tender, Bowel Sounds Present (Jasmyne Bee) Musculoskeletal MS Exam: Joints Intact, Good Strength MS Remarks left midfoot amputation, no skin flap bone visible, dark edges with gangrene/eschar; brenda intact (Jasmyne Bee) Integumentary Skin Exam: Warm, Dry Skin Remarks see above right great toe with nail changes. ischemic tip of hand, R 1-3rd digits discolored/dark, radial pulse strong on right (Jasmyne Bee) Extremeties Extremities Exam: No Edema, Pedal Pulses Palpable Extremeties Remarks left AVF +thrill, bruit (Jasmyne Bee) Neurologic Neuro Exam: Alert, Awake, Oriented, Speech Clear, Moving All Extremities (Jasmyne Bee) Psychiatric Psych Exam: Appropriate Responses (Jasmyne Bee) Assessment/Plan Discussed Condition With: Patient Assessment Summary: Anemia of CKD, Hypertension, Diabetes Mellitus, End Stage Renal Disease Problem List: (1) ESRD (end stage renal disease) ICD Codes: N18.6 - End-stage renal disease Status: Resolved Plan: Continue HD on MWF. 2L UF yesterday. Using AVF left arm for HD He has existing HD arrangements in place for discharge purposes. Avoid IVF administration, gadolinium in contraindicated High protein diet ordered with protein supplements Repeat labs intermittently. (2) Osteomyelitis ICD Codes: M86.9 - Osteomyelitis, unspecified Status: Acute Plan: ID, podiatry, and vascular following On Unasyn IV s/p bilateral balloon angioplasty Possible L BKA if no improvement. Vascular recommends to wait right sided amputations until after revascularization to assess for improvement. Possible outpatient follow up vs. amputation this admission. The patient has not agreed to BKA at htis time. Cultures are negative at this time. Continue to monitor. AJAY 01/02: No veg, mild MR and mild TR Unclear if we can remove the Ta; if antibiotics will be required at discharge consider leaving it in. ID assistance on this matter is appreciated. (3) PAD (peripheral artery disease) ICD Codes: I73.9 - Peripheral vascular disease, unspecified Status: Chronic Plan: See above Needs wound care to left foot/amputation site. (4) Bone metabolism disorder ICD Codes: E88.9 - Metabolic disorder, unspecified; M90.80 - Osteopathy in diseases classified elsewhere, unspecified site Status: Acute Plan: Phosphorus improved, On high dose Renvela with meals Advised binder compliance Repeat level intermittently (5) DKA (diabetic ketoacidoses) ICD Codes: E13.10 - Other specified diabetes mellitus with ketoacidosis without coma Status: Acute Plan: Labile blood sugar A1c 10.7 On Levemir Brittle DM 1 (6) HTN (hypertension) ICD Codes: I10 - Essential (primary) hypertension Status: Chronic Plan: Continue home medications, titrate as needed Permanent Comment: Last Edited By: Jasmyne Bee on Jul 11, 2017 15:31 (7) Anemia ICD Codes: D64.9 - Anemia, unspecified Plan: Epogen with dialysis (8) Hyperkalemia ICD Codes: E87.5 - Hyperkalemia Status: Acute Plan: Improved. Continue to monitor. (Jasmyne Bee) Plan patient was seen and examined. Agree with above assessment and plan. Poor prognosis. Likely needs amputation of left foot, but will leave the decision to surgery. (Maurice Schultz MD) Problem Qualifiers (1) Osteomyelitis: Qualified Codes: M86.8X7 - Other osteomyelitis, ankle and foot (2) DKA (diabetic ketoacidoses): (3) Anemia: Qualified Codes: N18.6 - End stage renal disease; D63.1 - Anemia in chronic kidney disease; Z99.2 - Dependence on renal dialysis Jasmyne Bee Jan 03, 2018 10:46 Maurice Schultz MD Jan 03, 2018 15:06
--- NOTE | 2018-01-03 13:14 | PD.CARD.PN ---
Subjective Subjective Remarks No angina or SOB, AJAY yest unremarkable Objective Medications Current Medications Medications (Trade) Dose Ordered Sig/April Route Start Time Stop Time Status Last Admin (NS Flush) 2 ml UNSCH PRN IV FLUSH 12/26/17 01:45 (NS Flush) 2 ml BID IV FLUSH 12/26/17 09:00 01/03/18 08:38 (Protonix) 40 mg DAILY PO 12/26/17 09:00 01/03/18 08:38 (Zofran Inj) 4 mg Q6H PRN IV PUSH 12/26/17 01:45 Miscellaneous Information 1 Q361D XX 12/26/17 01:45 12/26/17 01:45 (Chlorhexidine 2% Cloth) Taper DAILY@04 TOP 12/26/17 04:00 12/22/18 03:59 01/03/18 04:00 (Chlorhexidine 2% Cloth) 3 pack UNSCH PRN TOP 12/26/17 01:45 (Odette-Colace) 1 tab BID PO 12/26/17 09:00 01/03/18 08:38 (Milk Of Magnesia Liq) 30 ml Q12H PRN PO 12/26/17 01:45 (Senokot) 17.2 mg Q12H PRN PO 12/26/17 01:45 (Dulcolax Supp) 10 mg DAILY PRN RECTAL 12/26/17 01:45 (Lactulose Liq) 30 ml DAILY PRN PO 12/26/17 01:45 (Symbicort 160-4.5 Mcg Inh) 1 puff Q12HR INH 12/26/17 09:00 01/03/18 08:40 (Vitamin D3) 1,000 units DAILY PO 12/26/17 09:00 01/03/18 08:38 (Norvasc) 5 mg DAILY PO 12/26/17 09:00 01/03/18 08:38 (Cymbalta Dr) 30 mg DAILY PO 12/26/17 09:00 01/03/18 08:38 (Albuterol Neb) 2.5 mg Q2HR NEB PRN NEB 12/26/17 07:15 (D50w (Vial) Inj) 50 ml UNSCH PRN IV PUSH 12/26/17 13:00 12/31/17 21:03 (Glucagon Inj) 1 mg UNSCH PRN OTHER 12/26/17 13:00 (NovoLOG SUPPLEMENTAL SCALE) 1 Q4HR SQ 12/26/17 12:47 01/03/18 03:57 Sodium Chloride 1,000 ml @ 0 mls/hr Q0M PRN OTHER 12/26/17 13:45 (Heparin Inj) 8,000 units UNSCH PRN IV FLUSH 12/26/17 13:45 Sodium Chloride 1,000 ml @ 200 mls/hr Q5H PRN IV 12/26/17 13:45 Sodium Chloride 1,000 ml @ 0 mls/hr Q0M PRN OTHER 12/26/17 13:45 (Mannitol Inj) 12.5 gm UNSCH PRN IV 12/26/17 13:45 Albumin Human 100 ml @ 60 mls/hr UNSCH PRN IV 12/26/17 13:45 (NS Flush) 5 ml UNSCH PRN IV FLUSH 12/26/17 13:45 (Heparin Inj) UNSCH PRN .XX 12/26/17 13:45 (Gentamicin Inj) 20 mg UNSCH PRN OTHER 12/26/17 13:45 (Zofran Inj) 4 mg UNSCH PRN IV PUSH 12/26/17 13:45 (Tylenol) 650 mg UNSCH PRN PO 12/26/17 13:45 (Benadryl) 25 mg UNSCH PRN PO 12/26/17 13:45 (Nitrostat Sl) 0.4 mg UNSCH PRN SL 12/26/17 13:45 12/29/17 08:05 (Catapres) 0.1 mg UNSCH PRN PO 12/26/17 13:45 (Epogen Inj) 10,000 units UNSCH PRN IV PUSH 12/26/17 13:45 12/31/17 17:19 (Gelfoam 12 Mm/7 Mm Top) 1 foam UNSCH PRN TOP 12/26/17 13:45 12/28/17 15:42 (Aspirin Chew) 81 mg DAILY CHEW 12/26/17 15:00 01/03/18 08:38 (Morphine Inj) 2 mg Q3H PRN IV 12/26/17 17:15 12/31/17 04:45 (Lincoln 7.5-325 Mg) 1 tab Q4H PRN PO 12/27/17 12:15 12/28/17 17:55 (Renvela) 2,400 mg TIDAC PO 12/27/17 17:00 01/03/18 12:26 (Lopressor) 25 mg Q8H PO 12/29/17 08:00 01/03/18 08:37 (Nitroglycerin 2% Oint) 1 inch Q8H TOPICAL 12/29/17 08:00 01/02/18 22:55 (Atropine Inj) 0.5 mg UNSCH PRN IV PUSH 12/29/17 09:45 (Levemir Inj) 20 units Q12HR SQ 12/30/17 09:00 01/03/18 08:39 Ampicillin Sodium/ Sulbactam Sodium 3 gm/Sodium Chloride 100 ml @ 200 mls/hr Q24H IV 12/31/17 18:00 01/02/18 18:22 Vital Signs / I&O Vital Signs Date Time Temp Pulse Resp B/P (MAP) Pulse Ox O2 Delivery O2 Flow Rate FiO2 01/03/18 12:00 71 01/03/18 11:12 97.9 72 18 124/69 (87) 99 01/03/18 11:00 71 01/03/18 10:02 75 01/03/18 09:00 72 01/03/18 08:03 97 Room Air 01/03/18 08:03 98.3 71 18 123/54 (77) 97 01/03/18 08:00 68 01/03/18 07:00 72 01/03/18 05:00 70 01/03/18 04:00 70 01/03/18 03:00 67 01/03/18 03:00 98.6 67 16 115/51 (72) 97 01/03/18 02:00 72 01/03/18 01:00 70 01/03/18 00:00 73 01/02/18 23:00 98.2 72 18 129/57 (81) 98 01/02/18 23:00 78 01/02/18 22:00 70 01/02/18 21:00 73 01/02/18 20:00 97 Room Air 01/02/18 20:00 74 01/02/18 19:00 98.4 89 16 140/63 (88) 97 01/02/18 19:00 74 01/02/18 18:00 74 01/02/18 17:00 76 01/02/18 16:16 97.9 89 18 140/68 (92) 96 I/O 01/02/18 01/02/18 01/02/18 01/03/18 01/03/18 01/03/18 07:00 15:00 23:00 07:00 15:00 23:00 Intake Total 240 ml Output Total 2000 ml Balance -2000 ml 240 ml Intake Oral 240 ml Hemodialysis 2000 ml # Bowel Movements 1 Physical Exam GENERAL: In NAD. SKIN: Warm and dry. HEAD: Normocephalic. EYES: No scleral icterus. No injection or drainage. NECK: Supple, trachea midline. No JVD or lymphadenopathy. CARDIOVASCULAR: Regular rate and rhythm without murmurs, gallops, or rubs. RESPIRATORY: Breath sounds equal bilaterally. No accessory muscle use. GASTROINTESTINAL: Abdomen soft, non-tender, nondistended. MUSCULOSKELETAL: No cyanosis, mild edema. S/p L foot TMT amputation Assessment and Plan Problem List: (1) Chest pain ICD Codes: R07.9 - Chest pain, unspecified Status: Acute Permanent Comment: Patient poor historian. Findings are most c/w acute pericarditis. AMI needs exclusion. Last Edited By: Dima Patel on Dec 29, 2017 08:51 (2) Pericarditis ICD Codes: I31.9 - Disease of pericardium, unspecified (3) Elevated troponin ICD Codes: R74.8 - Abnormal levels of other serum enzymes (4) Cardiomyopathy ICD Codes: I42.9 - Cardiomyopathy, unspecified (5) Altered mental status ICD Codes: R41.82 - Altered mental status, unspecified (6) ESRD on hemodialysis ICD Codes: N18.6 - End stage renal disease; Z99.2 - Dependence on renal dialysis Status: Chronic (7) COPD (chronic obstructive pulmonary disease) ICD Codes: J44.9 - Chronic obstructive pulmonary disease, unspecified Status: Chronic (8) DKA (diabetic ketoacidoses) ICD Codes: E13.10 - Other specified diabetes mellitus with ketoacidosis without coma Status: Acute (9) DM (diabetes mellitus) ICD Codes: E11.9 - Type 2 diabetes mellitus without complications Status: Chronic (10) HTN (hypertension) ICD Codes: I10 - Essential (primary) hypertension Status: Chronic Permanent Comment: Last Edited By: Jasmyne Bee on Jul 11, 2017 15:31 (11) Cellulitis of foot, left ICD Codes: L03.116 - Cellulitis of left lower limb Status: Acute (12) Osteomyelitis ICD Codes: M86.9 - Osteomyelitis, unspecified Status: Acute Assessment and Plan No new cardiac issues. AJAY yest showed no evidence of valvular vegetations. Recent cath for diffuse ST elevation, diagnosed with pericarditis. No significant obstructive CAD. Troponin slightly elevated, likely secondary to ESRD, possibly also pericarditis. Echo with moderate LV systolic dysfunction. Continue abx for foot osteomyelitis, podiatric eval. Continue monitoring, increase activity, PT. Ischemic distal digits, possibly embolic vs severe ischemia vs vasculitis. ID and vasc surgery eval. Problem Qualifiers (1) Altered mental status: Qualified Codes: R41.82 - Altered mental status, unspecified (2) DKA (diabetic ketoacidoses): (3) Osteomyelitis: Qualified Codes: M86.8X7 - Other osteomyelitis, ankle and foot Amrit Hanley MD Jan 03, 2018 13:14
[2018-01-03] MEDS: ACETAMINOPHEN/HYDROcodone 325 MG/7.5 MG TAB PO PRN ×2 (15:20→22:13)
[2018-01-03] MEDS: AMPICILLIN-SULBACTAM INJ 3 GM in SODIUM CHLORIDE 0.9% INJ 100 ML IV SCH (17:10)
[2018-01-04] VITALS: BP 130/60; PULSE 74; RESP 17; TEMP 96; O2SAT 94
[2018-01-04] MEDS: METOPROLOL TARTRATE 25 MG TAB PO SCH ×3 (00:22→17:10)
[2018-01-04] MEDS: LOW DOSE INSULIN NOVOLOG SUPPLEMENTAL SCALE SQ SCH ×6 (00:29→20:00)
[2018-01-04] MEDS: CHLORHEXIDINE GLUCONATE 2 % 1 PACK (2 CLOTHS) TOP SCH (04:00)
[2018-01-04 06:21] LABS: AUTOMATED NEUTROPHIL # 10.2 TH/MM3 (1.8-7.7); BASOPHIL # 0.1 TH/MM3 (0-0.2); BASOPHIL % 0.5 % (0.0-2.0); EOSINOPHIL # 0.2 TH/MM3 (0-0.4); EOSINOPHIL % 1.6 % (0.0-4.0); HEMATOCRIT 30.2 % (39.0-51.0); HEMOGLOBIN 9.7 GM/DL (13.0-17.0); LYMPH % 7.2 % (9.0-44.0); LYMPHOCYTE # 0.9 TH/MM3 (1.0-4.8); MEAN CELL VOLUME 74.6 FL (80.0-100.0); MEAN CORPUSCULAR HGB CONC 32.2 % (32.0-36.0); MEAN PLATELET VOLUME 9.3 FL (7.0-11.0); MONO % 7.7 % (0.0-8.0); MONOCYTE # 0.9 TH/MM3 (0-0.9); PLATELET COUNT 299 TH/MM3 (150-450); RED BLOOD COUNT 4.04 MIL/MM3 (4.50-5.90); RED CELL DISTRIBUTION WIDTH 21.1 % (11.6-17.2); WHITE BLOOD COUNT 12.3 TH/MM3 (4.0-11.0)
[2018-01-04 07:03] LABS: BICARBONATE 29.9 MEQ/L (21.0-32.0); CALCIUM 8.8 MG/DL (8.5-10.1); CREATININE 8.04 MG/DL (0.60-1.30)
[2018-01-04] MEDS: DEXTROSE 50% IN WATER 50 ML VIAL(D50) IV PUSH PRN (07:41)
[2018-01-04 08:00] VITALS: BP 137/65; PULSE 70; RESP 19; TEMP 96.9; O2SAT 95
[2018-01-04] MEDS: SEVELAMER CARBONATE 800 MG TAB PO SCH ×3 (08:20→17:10)
[2018-01-04] MEDS: PANTOPRAZOLE SOD 40 MG DELAYED RELEASE TAB PO SCH (08:20)
[2018-01-04] MEDS: DOCUSATE SODIUM 50 MG/SENNA 8.6 MG TAB PO SCH ×2 (08:20→20:56)
[2018-01-04] MEDS: DULoxetine HCl DR 30 MG CAP PO SCH (08:20)
[2018-01-04] MEDS: NITROGLYCERIN 2% OINT 1 GM PACKET TOPICAL SCH ×3 (08:20→17:10)
[2018-01-04] MEDS: amLODIPine BESYLATE 5 MG TAB PO SCH (08:20)
[2018-01-04] MEDS: ASPIRIN 81 MG CHEW TAB CHEW SCH (08:20)
[2018-01-04] MEDS: CHOLECALCIFEROL (VIT D3) 1000 UNIT TAB PO SCH (08:20)
[2018-01-04] MEDS: BUDESONIDE-FORMOTEROL 160/4.5 MCG INHALER INH SCH ×2 (08:25→20:53)
[2018-01-04] MEDS: SODIUM CHLORIDE 0.9% FLUSH 10 ML FLUSH IV FLUSH SCH ×2 (08:27→20:56)
[2018-01-04] MEDS: INSULIN DETEMIR 100 UNITS/ML VIAL SQ SCH ×2 (08:33→21:00)
[2018-01-04] MEDS: EPOETIN ALFA 10,000 UNITS/ML VIAL IV PUSH PRN (11:47)
--- NOTE | 2018-01-04 13:24 | HHI.NPPN ---
Subjective General Problems: Anemia, Diabetes Renal Failure: Chronic, End Stage Renal Disease Interval History Dialyzed earlier. Pending reevaluation by vascular today. (Jasmyne Bee) Review of Systems Musculoskeletal MS: Pain/Stiffness (Jasmyne Bee) Skin Skin: Ulcers Skin Remarks right great toe, left MFA skin changes, non healing (Jasmyne Bee) Objective Data Data 01/04/18 01/05/18 19:00 07:00 Intake Total 240 ml Balance 240 ml Intake Oral 240 ml Vital Signs Date Time Temp Pulse Resp B/P (MAP) Pulse Ox O2 Delivery O2 Flow Rate FiO2 01/04/18 11:07 21 01/04/18 08:00 96.9 70 19 137/65 (89) 95 01/04/18 00:00 96.0 74 17 130/60 (83) 94 01/03/18 20:10 Room Air 01/03/18 20:00 97.5 71 18 128/72 (90) 99 01/03/18 18:00 74 01/03/18 17:09 97 01/03/18 17:00 76 01/03/18 16:00 76 01/03/18 15:00 77 01/03/18 15:00 98.4 77 18 132/64 (86) 97 01/03/18 14:00 72 (Jasmyne Bee) -: 01/04/18 0550 01/04/18 0550 Tubes & Lines Comment Ta right chest (Jasmyne Bee) Physical Exam General Appearance: Well Developed, Well Nourished, No Acute Distress, Comfortable (Jasmyne Bee) Eyes Eye Exam: Pupils Equal (Jasmyne Bee) Neck Neck Exam: Neck Supple (Jasmyne Bee) Pulmonary Resp Exam: Clear Bilaterally, Breath Sounds Equal (Jasmyne Bee) Cardiology CV Exam: Regular, Normal Sinus Rhythm (Jasmyne Bee) Gastrointestinal/Abdomen GI Exam: Soft, Non-Tender, Bowel Sounds Present (Jasmyne Bee) Musculoskeletal MS Exam: Joints Intact, Good Strength MS Remarks left midfoot amputation, no skin flap bone visible, dark edges with gangrene/eschar; brenda intact (Jasmyne Bee) Integumentary Skin Exam: Warm, Dry Skin Remarks see above right great toe with nail changes. ischemic tip of hand, R 1-3rd digits discolored/dark, radial pulse strong on right (Jasmyne Bee) Extremeties Extremities Exam: No Edema, Pedal Pulses Palpable Extremeties Remarks left AVF +thrill, bruit (Jasmyne Bee) Neurologic Neuro Exam: Alert, Awake, Oriented, Speech Clear, Moving All Extremities (Jasmyne Bee) Psychiatric Psych Exam: Appropriate Responses (Jasmyne Bee) Assessment/Plan Discussed Condition With: Patient Assessment Summary: Anemia of CKD, Hypertension, Diabetes Mellitus, End Stage Renal Disease Problem List: (1) ESRD (end stage renal disease) ICD Codes: N18.6 - End-stage renal disease Status: Resolved Plan: Continue HD on MWF. 3L UF today. Using AVF left arm for HD He has existing HD arrangements in place for discharge purposes. Avoid IVF administration, gadolinium in contraindicated High protein diet ordered with protein supplements Repeat labs intermittently. (2) Osteomyelitis ICD Codes: M86.9 - Osteomyelitis, unspecified Status: Acute Plan: ID, podiatry, and vascular following On Unasyn IV s/p bilateral balloon angioplasty Possible L BKA if no improvement. Patient is not in agreement at this time. May be discharged with vascular follow up. They recommend waiting to reevaluate right sided prior to any amputations to assess for improvement. Cultures are negative at this time. Continue to monitor. AJAY 01/02: No veg, mild MR and mild TR Unclear if we can remove the Ta; if antibiotics will be required at discharge consider leaving it in. ID assistance on this matter is appreciated. (3) PAD (peripheral artery disease) ICD Codes: I73.9 - Peripheral vascular disease, unspecified Status: Chronic Plan: See above Needs wound care to left foot/amputation site. (4) Bone metabolism disorder ICD Codes: E88.9 - Metabolic disorder, unspecified; M90.80 - Osteopathy in diseases classified elsewhere, unspecified site Status: Acute Plan: Phosphorus improved, On high dose Renvela with meals Advised binder compliance Repeat level intermittently (5) DKA (diabetic ketoacidoses) ICD Codes: E13.10 - Other specified diabetes mellitus with ketoacidosis without coma Status: Acute Plan: Labile blood sugar A1c 10.7 On Levemir Brittle DM 1 (6) HTN (hypertension) ICD Codes: I10 - Essential (primary) hypertension Status: Chronic Plan: Continue home medications, titrate as needed Permanent Comment: Last Edited By: Jasmyne Bee on Jul 11, 2017 15:31 (7) Anemia ICD Codes: D64.9 - Anemia, unspecified Plan: Epogen with dialysis (8) Hyperkalemia ICD Codes: E87.5 - Hyperkalemia Status: Acute Plan: Improved. Continue to monitor. (Jasmyne Bee) Plan patient was seen and examined. Agree with above assessment and plan. (Maurice Schultz MD) Problem Qualifiers (1) Osteomyelitis: Qualified Codes: M86.8X7 - Other osteomyelitis, ankle and foot (2) DKA (diabetic ketoacidoses): (3) Anemia: Qualified Codes: N18.6 - End stage renal disease; D63.1 - Anemia in chronic kidney disease; Z99.2 - Dependence on renal dialysis Jasmyne Bee Jan 04, 2018 13:24 Maurice Schultz MD Jan 04, 2018 15:12
--- NOTE | 2018-01-04 15:32 | HHI.PR ---
Subjective Remarks Follow-up for osteomyelitis Patient seen after dialysis. He has no complaints. Remains afebrile. Objective Vitals Vital Signs Date Time Temp Pulse Resp B/P (MAP) Pulse Ox O2 Delivery O2 Flow Rate FiO2 01/04/18 11:07 21 01/04/18 08:00 96.9 70 19 137/65 (89) 95 01/04/18 00:00 96.0 74 17 130/60 (83) 94 01/03/18 20:10 Room Air 01/03/18 20:00 97.5 71 18 128/72 (90) 99 01/03/18 18:00 74 01/03/18 17:09 97 01/03/18 17:00 76 01/03/18 16:00 76 I/O 01/03/18 01/03/18 01/03/18 01/04/18 01/04/18 01/04/18 07:00 15:00 23:00 07:00 15:00 23:00 Intake Total 1300 ml 480 ml 1000 ml Output Total 0 ml Balance 1300 ml 480 ml 1000 ml Intake Oral 1300 ml 480 ml 1000 ml Output Urine Total 0 ml # Voids 0 0 # Bowel Movements 1 0 0 Result Diagram: 01/04/18 0550 01/04/18 0550 Objective Remarks GENERAL: in NAD CARDIOVASCULAR: Regular rate and rhythm without murmurs, gallops, or rubs. RESPIRATORY: Breath sounds equal bilaterally. No accessory muscle use. GASTROINTESTINAL: Abdomen soft, non-tender, nondistended. MUSCULOSKELETAL: Left foot in bandages. Medications and IVs Current Medications Sodium Chloride (NS Flush) 2 ml UNSCH PRN IVF FLUSH AFTER USING IV ACCESS; Start 12/25/17 at 20:30; Stop 12/26/17 at 07:38; Status DC Calcium Gluconate (Calcium Gluconate Inj) 2 gm ONCE ONCE SLOW IVP Last administered on 12/25/17at 21:18; Start 12/25/17 at 21:00; Stop 12/25/17 at 21:01 ; Status DC Insulin Human Regular (NovoLIN R INJ) 10 units ONCE ONCE IV PUSH Last administered on 12/25/17at 21:18; Start 12/25/17 at 21:00; Stop 12/25/17 at 21:01 ; Status DC Sodium Bicarbonate (Sodium Bicarbonate 8.4% Inj) 50 meq ONCE ONCE SLOW IVP Last administered on 12/25/17at 21:18; Start 12/25/17 at 21:00; Stop 12/25/17 at 21:01; Status DC Albuterol Sulfate (Albuterol Concentrated Neb) 10 mg ONCE ONCE INH Last administered on 12/25/17at 21:14; Start 12/25/17 at 21:00; Stop 12/25/17 at 21:01 ; Status DC Sodium Polystyrene Sulfonate (Kayexalate Liq) 15 gm ONCE ONCE PO ; Start at 21:00; Stop 12/25/17 at 21:01; Status DC Sodium Bicarbonate (Sodium Bicarbonate 8.4% Inj) 50 meq ONCE ONCE SLOW IVP Last administered on 12/25/17at 21:30; Start 12/25/17 at 21:30; Stop 12/25/17 at 21:31; Status DC Insulin Human Regular 100 units/ Sodium Chloride 100 ml @ 6.5 mls/hr TITRATE PRN IV Blood Sugar Management Last administered on 12/25/17at 22:40; Start at 21:30; Stop 12/26/17 at 12:45; Status DC Sodium Chloride 500 ml @ 500 mls/hr BOLUS ONCE IV Last administered on at 00:30; Start 12/26/17 at 00:30; Stop 12/26/17 at 01:29; Status DC Sodium Chloride (NS Flush) 2 ml UNSCH PRN IV FLUSH FLUSH AFTER USING IV ACCESS ; Start 12/26/17 at 01:45 Sodium Chloride (NS Flush) 2 ml BID IV FLUSH Last administered on 01/04/18at 08: 27; Start 12/26/17 at 09:00 Pantoprazole Sodium (Protonix) 40 mg DAILY PO Last administered on 01/04/18at 08 :20; Start 12/26/17 at 09:00 Ondansetron HCl (Zofran Inj) 4 mg Q6H PRN IV PUSH NAUSEA OR VOMITING; Start at 01:45 Albuterol Sulfate (Albuterol Neb) 2.5 mg Q2HR NEB PRN INH SOB/WHEEZING; Start 12/26/17 at 01:45; Stop 12/26/17 at 07:19; Status DC Miscellaneous Information 1 [id number] XX Last administered on 12/26/17at 01:45; Start 12/26/17 at 01:45 Chlorhexidine Gluconate (Chlorhexidine 2% Cloth) Taper DAILY@04 TOP Last administered on 01/03/18at 04:00; Start 12/26/17 at 04:00; Stop 12/22/18 at 03:59 Chlorhexidine Gluconate (Chlorhexidine 2% Cloth) 3 pack UNSCH PRN TOP HYGIENIC CARE; Start 12/26/17 at 01:45 Senna/Docusate Sodium (Odette-Colace) 1 tab BID PO Last administered on at 08:20; Start 12/26/17 at 09:00 Magnesium Hydroxide (Milk Of Magnesia Liq) 30 ml Q12H PRN PO Mild constipation ; Start 12/26/17 at 01:45 Sennosides (Senokot) 17.2 mg Q12H PRN PO Moderate constipation; Start 12/26/17 at 01:45 Bisacodyl (Dulcolax Supp) 10 mg DAILY PRN RECTAL SEVERE CONSITIPATION; Start at 01:45 Lactulose (Lactulose Liq) 30 ml DAILY PRN PO SEVERE CONSITIPATION; Start at 01:45 Ciprofloxacin (Cipro) 500 mg Q12HR PO ; Start 12/26/17 at 09:00; Stop 12/26/17 at 09:00; Status DC Dextrose 1,000 ml @ 40 mls/hr Q24H IV Last administered on 12/26/17at 02:09; Start 12/26/17 at 02:15; Stop 12/26/17 at 14:25; Status DC Fluconazole (Diflucan) 200 mg DAILY PO Last administered on 12/27/17at 08:09; Start 12/26/17 at 09:00; Stop 12/27/17 at 10:45; Status DC Piperacillin Sod/ Tazobactam Sod 50 ml @ 100 mls/hr Q8H IV Last administered on 12/26/17at 04:28; Start 12/26/17 at 02:00; Stop 12/26/17 at 12:09; Status DC Budesonide/ Formoterol Fumarate (Symbicort 160-4.5 Mcg Inh) 1 puff Q12HR INH Last administered on 01/03/18at 21:59; Start 12/26/17 at 09:00 Cholecalciferol (Vitamin D3) 1,000 units DAILY PO Last administered on at 08:20; Start 12/26/17 at 09:00 Amlodipine Besylate (Norvasc) 5 mg DAILY PO Last administered on 01/04/18 08: 20; Start 12/26/17 at 09:00 Dextrose (D50w (Syr) Inj) 50 ml STK-MED ONCE .ROUTE Last administered on at 07:03; Start 12/26/17 at 06:59; Stop 12/26/17 at 07:00; Status DC Duloxetine HCl (Cymbalta Dr) 30 mg DAILY PO Last administered on 01/04/18at 08: 20; Start 12/26/17 at 09:00 Albuterol Sulfate (Albuterol Neb) 2.5 mg Q2HR NEB PRN NEB WHEEZING; Start 12/26 at 07:15 Dextrose (D50w (Syr) Inj) 50 ml ONCE ONCE IV ; Start 12/26/17 at 07:30; Stop at 07:31; Status DC Heparin Sodium (Porcine) (Heparin Inj) 5,000 units Q12HR SQ Last administered on 12/28/17at 20:04; Start 12/26/17 at 09:00; Stop 12/29/17 at 09:52; Status DC Piperacillin Sod/ Tazobactam Sod 50 ml @ 100 mls/hr Q8H IV Last administered on 12/31/17at 11:19; Start 12/26/17 at 12:00; Stop 12/31/17 at 13:25; Status DC Dextrose (D50w (Vial) Inj) 50 ml UNSCH PRN IV PUSH HYPOGLYCEMIA - SEE COMMENTS Last administered on 01/04/18at 07:41; Start 12/26/17 at 13:00 Glucagon (Glucagon Inj) 1 mg UNSCH PRN OTHER HYPOGLYCEMIA-SEE COMMENTS; Start 12/26/17 at 13:00 Insulin Aspart (NovoLOG SUPPLEMENTAL SCALE) 1 Q4HR SQ Last administered on 01/03at 03:57; Start 12/26/17 at 12:47 Sodium Chloride 1,000 ml @ 0 mls/hr Q0M PRN OTHER For Prime & Rinse Back; Start 12/26/17 at 13:45 Heparin Sodium (Porcine) (Heparin Inj) 8,000 units UNSCH PRN IV FLUSH WITH DIALYSIS; Start 12/26/17 at 13:45 Sodium Chloride 1,000 ml @ 200 mls/hr Q5H PRN IV WITH DIALYSIS; Start 12/26/17 at 13:45 Sodium Chloride 1,000 ml @ 0 mls/hr Q0M PRN OTHER WITH DIALYSIS; Start at 13:45 Mannitol (Mannitol Inj) 12.5 gm UNSCH PRN IV WITH DIALYSIS; Start 12/26/17 at 13:45 Albumin Human 100 ml @ 60 mls/hr UNSCH PRN IV WITH DIALYSIS; Start 12/26/17 at 13:45 Sodium Chloride (NS Flush) 5 ml UNSCH PRN IV FLUSH WITH DIALYSIS; Start at 13:45 Heparin Sodium (Porcine) (Heparin Inj) UNSCH PRN .XX WITH DIALYSIS; Start at 13:45 Gentamicin Sulfate (Gentamicin Inj) 20 mg UNSCH PRN OTHER WITH DIALYSIS; Start 12/26/17 at 13:45 Ondansetron HCl (Zofran Inj) 4 mg UNSCH PRN IV PUSH WITH DIALYSIS; Start at 13:45 Acetaminophen (Tylenol) 650 mg UNSCH PRN PO for headach, pain, temp > 101F; Start 12/26/17 at 13:45 Diphenhydramine HCl (Benadryl) 25 mg UNSCH PRN PO for hives/itching/anaphylaxis ; Start 12/26/17 at 13:45 Nitroglycerin (Nitrostat Sl) 0.4 mg UNSCH PRN SL CHEST PAIN Last administered on 12/29/17at 08:05; Start 12/26/17 at 13:45 Clonidine (Catapres) 0.1 mg UNSCH PRN PO for BP > 180/100 X 2 readings; Start 12/26/17 at 13:45 Epoetin Marco A (Epogen Inj) 10,000 units UNSCH PRN IV PUSH WITH DIALYSIS Last administered on 01/04/18at 11:47; Start 12/26/17 at 13:45 Gelatin (Gelfoam 12 Mm/7 Mm Top) 1 foam UNSCH PRN TOP SEE LABEL COMMENTS Last administered on 12/28/17at 15:42; Start 12/26/17 at 13:45 Aspirin (Aspirin Chew) 81 mg DAILY CHEW Last administered on 01/04/18 08:20; Start 12/26/17 at 15:00 Morphine Sulfate (Morphine Inj) 2 mg Q3H PRN IM pain 5-10; Start 12/26/17 at 14 :30; Stop 12/26/17 at 17:01; Status DC Sevelamer Carbonate (Renvela) 1,600 mg TIDAC PO Last administered on 12/27/17 08:09; Start 12/26/17 at 17:00; Stop 12/27/17 at 12:40; Status DC Morphine Sulfate (Morphine Inj) 2 mg Q3H PRN IV pain 5-10 Last administered on 12/31/17 04:45; Start 12/26/17 at 17:15 Insulin Detemir (Levemir Inj) 3 units Q12HR SQ Last administered on 12/27/17 20:56; Start 12/27/17 at 12:15; Stop 12/29/17 at 13:59; Status DC Acetaminophen/ Hydrocodone Bitart ([place] 7.5-325 Mg) 1 tab Q4H PRN PO pain 1- 4 Last administered on 01/03/18 22:13; Start 12/27/17 at 12:15 Sevelamer Carbonate (Renvela) 2,400 mg TIDAC PO Last administered on 01/04/18 08:20; Start 12/27/17 at 17:00 Metoprolol Tartrate (Lopressor) 25 mg Q8H PO Last administered on 01/04/18 08: 20; Start 12/29/17 at 08:00 Metoprolol Tartrate (Lopressor Inj) 2.5 mg ONCE PRN IV PUSH ANGINA Last administered on 12/29/17 08:16; Start 12/29/17 at 08:00; Stop 12/29/17 at 23:00 ; Status DC Nitroglycerin (Nitroglycerin 2% Oint) 1 inch Q8H TOPICAL Last administered on 08:20; Start 12/29/17 at 08:00 Ketorolac Tromethamine (Toradol Inj) 30 mg STAT ONCE IV PUSH Last administered on 12/29/17at 08:45; Start 12/29/17 at 08:45; Stop 12/29/17 at 08:46 ; Status DC Insulin Human Regular (NovoLIN R INJ) 10 units NOW ONCE IV PUSH Last administered on 12/29/17at 08:30; Start 12/29/17 at 08:45; Stop 12/29/17 at 08:46 ; Status DC Heparin Sodium/ Sodium Chloride 2,000 ml @ As Directed STK-MED ONCE IV FLUSH Last administered on 12/29/17at 08:50; Start 12/29/17 at 08:50; Stop 12/29/17 at 08:51; Status DC Midazolam HCl (Versed Inj) 2 mg STK-MED ONCE .ROUTE ; Start 12/29/17 at 08:50; Stop 12/29/17 at 08:51; Status DC Fentanyl Citrate (fentaNYL INJ) 100 mcg STK-MED ONCE .ROUTE Last administered on 12/29/17at 09:09; Start 12/29/17 at 08:50; Stop 12/29/17 at 08:51; Status DC Nitroglycerin 0 ml @ As Directed STK-MED ONCE .ROUTE ; Start 12/29/17 at 08:50; Stop 12/29/17 at 08:51; Status DC Sodium Chloride 1,000 ml @ 30 mls/hr Q24H IV ; Start 12/29/17 at 08:57; Stop at 09:49; Status DC Aspirin (Aspirin) [address] [employer] PO ; Start 12/29/17 at 09:00; Stop 01/02/18 at 08:59; Status DC Fentanyl Citrate (fentaNYL INJ) [address] [employer] IV PUSH ; Start 12/29/17 at 09: 00; Stop 01/02/18 at 08:59; Status DC Midazolam HCl (Versed Inj) [address] [employer] IV PUSH ; Start 12/29/17 at 09:00; Stop 01/02/18 at 08:59; Status DC Sodium Chloride (NS Flush) 2 ml BID IV FLUSH ; Start 12/29/17 at 21:00; Stop at 21:00; Status DC Sodium Chloride (NS Flush) 2 ml UNSCH PRN IV FLUSH FLUSH AFTER USING IV ACCESS ; Start 12/29/17 at 09:45; Stop 12/29/17 at 09:52; Status DC Miscellaneous Information 1 ONCE ONCE XX ; Start 12/29/17 at 09:45; Stop at 09:52; Status DC Atropine Sulfate (Atropine Inj) 0.5 mg UNSCH PRN IV PUSH VAGAL REPONSE; Start 12/29/17 at 09:45 Sodium Chloride 250 ml @ 500 mls/hr ONCE PRN IV VAGAL REPONSE; Start 12/29/17 at 09:45; Stop 12/30/17 at 09:44; Status DC Bacitracin (Bacitracin Oint Packet) 0.9 gm ONCE ONCE TOP ; Start 12/29/17 at 09 :45; Stop 12/29/17 at 09:50; Status DC Ketorolac Tromethamine (Toradol Inj) 15 mg Q8HR PRN IM CHEST PAIN; Start at 10:00; Stop 01/03/18 at 09:59; Status DC Insulin Human Regular (NovoLIN R INJ) 20 units NOW ONCE IV PUSH ; Start at 12:00; Stop 12/29/17 at 12:01; Status DC Insulin Human Regular (NovoLIN R INJ) 20 units NOW ONCE SQ Last administered on 12/29/17at 12:00; Start 12/29/17 at 12:45; Stop 12/29/17 at 12:46; Status DC Insulin Detemir (Levemir Inj) 10 units Q12HR SQ ; Start 12/29/17 at 21:00; Stop 12/30/17 at 07:55; Status DC Insulin Detemir (Levemir Inj) 20 units Q12HR SQ Last administered on 01/04/18at 08:33; Start 12/30/17 at 09:00 Lactated Ringer's 1,000 ml @ 30 mls/hr Q24H PRN IV SEE LABEL COMMENTS; Start at 00:45; Stop 01/03/18 at 00:44; Status DC Sodium Chloride 500 ml @ 30 mls/hr [id number] PRN IV SEE LABEL COMMENTS; Start at 00:45; Stop 01/03/18 at 00:44; Status DC Povidone Iodine (Betadine 5% Antisepsis Kit) [address] [employer] PRN EACH NARE SEE LABEL COMMENTS; Start 12/31/17 at 00:45; Stop 01/03/18 at 00:44; Status DC Chlorhexidine Gluconate (Chlorhexidine 2% Cloth) [address] [employer] PRN TOPICAL SEE LABEL COMMENTS; Start 12/31/17 at 00:45; Stop 01/03/18 at 00:44; Status DC Protamine Sulfate (Protamine Sulfate Inj) 50 mg STK-MED ONCE .ROUTE ; Start at 06:54; Stop 12/31/17 at 06:55; Status DC Heparin Sodium (Porcine) (Heparin Inj) 10,000 units STK-MED ONCE .ROUTE ; Start 12/31/17 at 06:54; Stop 12/31/17 at 06:55; Status DC Vancomycin HCl (Vancomycin Inj) 1,000 mg STK-MED ONCE .ROUTE ; Start 12/31/17 at 06:54; Stop 12/31/17 at 06:55; Status DC Heparin Sodium/ Sodium Chloride 500 ml @ As Directed STK-MED ONCE .ROUTE Last administered on 12/31/17at 06:54; Start 12/31/17 at 06:54; Stop 12/31/17 at 06:55 ; Status DC Fentanyl Citrate (fentaNYL INJ) 250 mcg STK-MED ONCE .ROUTE ; Start 12/31/17 at 07:22; Stop 12/31/17 at 07:23; Status DC Iohexol 50 ml @ 0 mls/hr ONCE ONCE IV Last administered on 12/31/17at 08:00; Start 12/31/17 at 08:00; Stop 12/31/17 at 08:12; Status DC Heparin Sodium/ Sodium Chloride 500 ml @ As Directed STK-MED ONCE .ROUTE Last administered on 12/31/17at 08:52; Start 12/31/17 at 08:52; Stop 12/31/17 at 08:53 ; Status DC Miscellaneous Information ALL NURSING DEPARTME... UNSCH PRN .XX SEE LABEL COMMENTS; Start 12/31/17 at 10:15; Stop 01/01/18 at 10:14; Status DC Iohexol (OMNIPAQUE 350 INJ (Psychiatric Nurse Practitioner)) 50 ml STK-MED ONCE OTHER ; Start at 11:36; Stop 12/31/17 at 11:37; Status DC Ampicillin Sodium/ Sulbactam Sodium 3 gm/Sodium Chloride 100 ml @ 200 mls/hr Q24H IV Last administered on 01/03/18at 17:10; Start 12/31/17 at 18:00 Sodium Chloride 500 ml @ As Directed STK-MED ONCE IV ; Start 12/31/17 at 12:00 ; Stop 01/01/18 at 12:08; Status DC Lidocaine HCl (Xylocaine-Mpf 1% Inj) 5 ml STK-MED ONCE OTHER ; Start 12/31/17 at 12:00; Stop 01/01/18 at 12:08; Status DC Rocuronium [place] (Zemuron Inj) 50 mg STK-MED ONCE IV PUSH ; Start 12/31/17 at 12:00; Stop 01/01/18 at 12:08; Status DC Neostigmine Methylsulfate (Prostigmine Inj) 5 mg STK-MED ONCE IV PUSH ; Start at 12:00; Stop 01/01/18 at 12:08; Status DC Glycopyrrolate (Robinul Inj) 1 mg STK-MED ONCE IV PUSH ; Start 12/31/17 at 12:00 ; Stop 01/01/18 at 12:08; Status DC Phenylephrine HCl (Neosynephrine/ NS 1000 Mcg/10ml Syr) 2,000 mcg STK-MED ONCE IV ; Start 12/31/17 at 12:00; Stop 01/01/18 at 12:08; Status DC Ephedrine Sulfate (ePHEDrine/NS 25 MG/5 ML SYR) 25 mg STK-MED ONCE IV ; Start at 12:00; Stop 01/01/18 at 12:08; Status DC Ondansetron HCl (Zofran Inj) 4 mg STK-MED ONCE IV ; Start 12/31/17 at 12:00; Stop 01/01/18 at 12:08; Status DC Propofol (Diprivan 200 Mg/20 ml Inj) 200 mg STK-MED ONCE IV ; Start 12/31/17 at 12:00; Stop 01/01/18 at 12:08; Status DC Propofol (Diprivan 200 Mg/20 ml Inj) 400 mg STK-MED ONCE .ROUTE ; Start at 13:58; Stop 01/02/18 at 13:59; Status DC A/P Problem List: (1) PAD (peripheral artery disease) ICD Code: I73.9 - Peripheral vascular disease, unspecified Status: Chronic (2) Diabetic nephropathy ICD Code: E11.21 - Diabetic nephropathy Status: Chronic (3) CKD (chronic kidney disease) stage V requiring chronic dialysis ICD Code: N18.6 - End stage renal disease; Z99.2 - Dependence on renal dialysis Status: Chronic (4) Dyslipidemia ICD Code: E78.5 - Dyslipidemia Status: Chronic (5) DM (diabetes mellitus) ICD Code: E11.9 - Type 2 diabetes mellitus without complications Status: Chronic (6) HTN (hypertension) ICD Code: I10 - Essential (primary) hypertension Status: Chronic Permanent Comment: Last Edited By: Jasmyne Bee on Jul 11, 2017 15:31 (7) PAD (peripheral artery disease) ICD Code: I73.9 - Peripheral vascular disease, unspecified Status: Chronic (8) Ischemic ulcer diabetic foot ICD Code: E11.621 - Type 2 diabetes mellitus with foot ulcer; L97.509 - Non- pressure chronic ulcer of other part of unspecified foot with unspecified severity Status: Acute (9) ESRD on hemodialysis ICD Code: N18.6 - End stage renal disease; Z99.2 - Dependence on renal dialysis Status: Chronic (10) COPD (chronic obstructive pulmonary disease) ICD Code: J44.9 - Chronic obstructive pulmonary disease, unspecified Status: Chronic (11) DKA (diabetic ketoacidoses) ICD Code: E13.10 - Other specified diabetes mellitus with ketoacidosis without coma Status: Acute (12) Encephalopathy acute ICD Code: G93.40 - Encephalopathy, unspecified Status: Acute (13) Osteomyelitis ICD Code: M86.9 - Osteomyelitis, unspecified Status: Acute Assessment and Plan 57-year-old man with 1. Acute toxic metabolic encephalopathy/Peripheral Neuropathy/Depression Resolved CT brain negative. 2. COPD/Tobacco dependence on Symbicort 160/4.5 2 puffs inhaled twice a day 3. Hypertension/Peripheral Artery Disease/Ischemic distal digits status post Left posterior tibial artery angioplasty 09/24/17 Dr Ortiz Amlodipine 5 mg daily and Lisinopril 10 mg daily 4. ESRD on Hemodialysis M/W/F, Nephrology specialist following Hyperkalemia-Resolved 5. Osteomyelitis of the left foot Left second toe amputation 07/11/17 Left Posterior tibial artery angioplasty 09/24/17 I and D Left foot 09/28/17 left foot transmetatarsal amputation 09/26/17 Dr. Judge Poor wound healing and dry gangrene as well as probable wet gangrene noted ID and podiatry ff Currently on Unasyn IV, status post Zosyn ID specialist and Vascular Surgery s/p bilateral angiogram with balloon angioplasty 12/31/17 AJAY negative for endocarditis 01/02/18 Possible left BKA to be determined by structural worker. 6. Anemia of chronic disease 7. DKA resolved/DM II On Levemir 20 units every 12 hours STEMI on 12/29/[address] [facility] without any stent placement PROPH: Heparin 5000 units subcutaneous every 12 hours for DVT prophylaxis. Protonix 40 mg by mouth daily Discharge Planning Patient is on IV antibiotics and may need a left BKA. Problem Qualifiers (1) DKA (diabetic ketoacidoses): (2) Osteomyelitis: Qualified Codes: M86.8X7 - Other osteomyelitis, ankle and foot Chetna Moore MD Jan 04, 2018 15:32
[2018-01-04 16:00] VITALS: BP 136/67; PULSE 81; RESP 19; TEMP 98.7; O2SAT 98
[2018-01-04] MEDS: AMPICILLIN-SULBACTAM INJ 3 GM in SODIUM CHLORIDE 0.9% INJ 100 ML IV SCH (17:17)
--- NOTE | 2018-01-04 19:26 | HHI.IDPN ---
Subjective Subjective Remarks Pt seen about 1 hr ago no c/o Afebrile BC are negative AJAY w/o vegetations No new lesions Antibiotics Amp/S Lines Line sites with no e.o infection Past Medical History reviewed Allergies: Coded Allergies: No Known Allergies (Verified Allergy, Unknown, 10/16/17) Objective . Vital Signs Date Time Temp Pulse Resp B/P (MAP) Pulse Ox O2 Delivery O2 Flow Rate FiO2 01/04/18 16:00 98.7 81 19 136/67 (90) 98 01/04/18 11:07 21 01/04/18 08:00 96.9 70 19 137/65 (89) 95 01/04/18 00:00 96.0 74 17 130/60 (83) 94 01/03/18 20:10 Room Air 01/03/18 20:00 97.5 71 18 128/72 (90) 99 01/04/18 01/04/18 01/05/18 15:00 23:00 07:00 Intake Total 1000 ml 240 ml Output Total 0 ml Balance 1000 ml 240 ml Intake Oral 1000 ml 240 ml Output Urine Total 0 ml # Bowel Movements 0 . Laboratory Tests Test 01/04/18 05:50 White Blood Count 12.3 TH/MM3 Red Blood Count 4.04 MIL/MM3 Hemoglobin 9.7 GM/DL Hematocrit 30.2 % Mean Corpuscular Volume 74.6 FL Mean Corpuscular Hemoglobin 24.0 PG Mean Corpuscular Hemoglobin Concent 32.2 % Red Cell Distribution Width 21.1 % Platelet Count 299 TH/MM3 Mean Platelet Volume 9.3 FL Neutrophils (%) (Auto) 83.0 % Lymphocytes (%) (Auto) 7.2 % Monocytes (%) (Auto) 7.7 % Eosinophils (%) (Auto) 1.6 % Basophils (%) (Auto) 0.5 % Neutrophils # (Auto) 10.2 TH/MM3 Lymphocytes # (Auto) 0.9 TH/MM3 Monocytes # (Auto) 0.9 TH/MM3 Eosinophils # (Auto) 0.2 TH/MM3 Basophils # (Auto) 0.1 TH/MM3 CBC Comment DIFF FINAL Differential Comment Laboratory Tests Test 01/04/18 05:50 Blood Urea Nitrogen 56 MG/DL Creatinine 8.04 MG/DL Random Glucose 55 MG/DL Calcium Level 8.8 MG/DL Sodium Level 131 MEQ/L Potassium Level 4.1 MEQ/L Chloride Level 92 MEQ/L Carbon Dioxide Level 29.9 MEQ/L Anion Gap 9 MEQ/L Estimat Glomerular Filtration Rate 8 ML/MIN Imaging Last Impressions Foot X-Ray 12/26/17 0000 Signed Impressions: Service Date/Time: Tuesday, December 26, 2017 07:29 - CONCLUSION: 1. Findings concerning for osteomyelitis involving the tuft of the first toe. Phani Vasquez MD Head CT [id number] Signed Impressions: Service Date/Time: Monday, December 25, 2017 22:22 - CONCLUSION: No acute intracranial abnormality demonstrated. Eliu Ayala MD Chest X-Ray [id number] Signed Impressions: Service Date/Time: Monday, December 25, 2017 20:45 - CONCLUSION: No evidence of acute cardiopulmonary disease. Eliu Ayala MD Physical Exam GENERAL: This is a well-nourished, well-developed patient, in no apparent distress. SKIN: No rashes, ecchymoses or lesions. Cool and dry. HEAD: Atraumatic. Normocephalic. No temporal or scalp tenderness. CARDIOVASCULAR: S1 S2 systolic murmur + S3 RESPIRATORY: Clear to auscultation. Breath sounds equal bilaterally. No wheezes , rales, or rhonchi. GASTROINTESTINAL: Abdomen soft, non-tender, nondistended. MUSCULOSKELETAL: Right great toe with ? amputation of tip with blackening of margins noted. Right forefoot amputation site with progressive dry gangrenous changes. None healing No odor 1-3 finger R hand with evolving dry gangrenous changes - no new lesions L fingertip duskiness resolved NEUROLOGICAL:Awake, alert Nont focal Moves all 4 extremities. Psych cooperative IV line sites with no e.o infection. HD cath site with no e.o infection. Assessment & Plan Remarks Osteomyelitis L foot (L second toe amputation 07/11/17 L posterior tibial artery angioplasty 09/24/17 I and D L foot 09/28/17 Left foot transmetatarsal amputation 09/26/17 (Dr. Judge) Peripheral arterial disease s/p L posterior tibial artery angioplasty Dr. Ortiz Leukocytosis: reactive, infection. DKA, Diabetes mellitus with Neuropathy and Nephropathy. ESRD on hemodialysis Acute metabolic encephalopathy: DKA, sepsis, ? meningitis workup if AMS persists. Peripheral neuropathy COPD, Prior tobacco abuse HTN' Multiple gangrenous finger tips on b/l hands ? embolic ? vasculitis - AJAY negative Recs: Cont Unasyn IV consider w/u for BUE vasc insufficiency Pt's issues are primarily vascular at this point and he is not likley to heal his R TMA site Vianey Anguiano MD Jan 04, 2018 19:26
[2018-01-04 20:00] VITALS: BP 145/73; PULSE 79; RESP 16; TEMP 97.1; O2SAT 98
[2018-01-05] MEDS: CHLORHEXIDINE GLUCONATE 2 % 1 PACK (2 CLOTHS) TOP SCH (00:09)
[2018-01-05] MEDS: LOW DOSE INSULIN NOVOLOG SUPPLEMENTAL SCALE SQ SCH ×6 (04:00→20:00)
[2018-01-05 08:00] VITALS: BP 146/70; PULSE 82; RESP 14; TEMP 98.3; O2SAT 95
[2018-01-05] MEDS: PANTOPRAZOLE SOD 40 MG DELAYED RELEASE TAB PO SCH (08:56)
[2018-01-05] MEDS: SEVELAMER CARBONATE 800 MG TAB PO SCH ×3 (08:56→17:19)
[2018-01-05] MEDS: METOPROLOL TARTRATE 25 MG TAB PO SCH ×3 (08:57→17:20)
[2018-01-05] MEDS: DULoxetine HCl DR 30 MG CAP PO SCH (08:57)
[2018-01-05] MEDS: ASPIRIN 81 MG CHEW TAB CHEW SCH (08:57)
[2018-01-05] MEDS: ACETAMINOPHEN/HYDROcodone 325 MG/7.5 MG TAB PO PRN ×4 (08:58→21:42)
[2018-01-05] MEDS: NITROGLYCERIN 2% OINT 1 GM PACKET TOPICAL SCH ×3 (08:58→17:20)
[2018-01-05] MEDS: amLODIPine BESYLATE 5 MG TAB PO SCH (08:59)
[2018-01-05] MEDS: SODIUM CHLORIDE 0.9% FLUSH 10 ML FLUSH IV FLUSH SCH ×2 (08:59→20:10)
[2018-01-05] MEDS: BUDESONIDE-FORMOTEROL 160/4.5 MCG INHALER INH SCH ×2 (08:59→20:10)
[2018-01-05] MEDS: DOCUSATE SODIUM 50 MG/SENNA 8.6 MG TAB PO SCH ×2 (09:00→20:10)
[2018-01-05] MEDS: CHOLECALCIFEROL (VIT D3) 1000 UNIT TAB PO SCH (09:00)
[2018-01-05] MEDS: INSULIN DETEMIR 100 UNITS/ML VIAL SQ SCH ×2 (09:00→20:11)
--- NOTE | 2018-01-05 10:20 | HHI.PR ---
Subjective Remarks f/u for infection patient c/o noone changing his bandages. I spoke to nurse in regards to changing them. he has no other complaints. remains afebrile. Objective Vitals Vital Signs Date Time Temp Pulse Resp B/P (MAP) Pulse Ox O2 Delivery O2 Flow Rate FiO2 01/05/18 08:00 98.3 82 14 146/70 (95) 95 01/04/18 20:00 97.1 79 16 145/73 (97) 98 01/04/18 16:00 98.7 81 19 136/67 (90) 98 01/04/18 11:07 21 I/O 01/04/18 01/04/18 01/04/18 01/05/18 01/05/18 01/05/18 07:00 15:00 23:00 07:00 15:00 23:00 Intake Total 480 ml 1000 ml 340 ml 240 ml Output Total 0 ml Balance 480 ml 1000 ml 340 ml 240 ml Intake Oral 480 ml 1000 ml 240 ml 240 ml IV Total 100 ml Output Urine Total 0 ml # Voids 0 0 # Bowel Movements 0 0 0 Result Diagram: 01/04/18 0550 01/04/18 0550 Objective Remarks GENERAL: in NAD CARDIOVASCULAR: Regular rate and rhythm without murmurs, gallops, or rubs. RESPIRATORY: Breath sounds equal bilaterally. No accessory muscle use. GASTROINTESTINAL: Abdomen soft, non-tender, nondistended. MUSCULOSKELETAL:left foot all toes amputated with necrotic tissue. right TMA poor wound healing. Medications and IVs Current Medications Sodium Chloride (NS Flush) 2 ml UNSCH PRN IVF FLUSH AFTER USING IV ACCESS; Start 12/25/17 at 20:30; Stop 12/26/17 at 07:38; Status DC Calcium Gluconate (Calcium Gluconate Inj) 2 gm ONCE ONCE SLOW IVP Last administered on 12/25/17at 21:18; Start 12/25/17 at 21:00; Stop 12/25/17 at 21:01 ; Status DC Insulin Human Regular (NovoLIN R INJ) 10 units ONCE ONCE IV PUSH Last administered on 12/25/17at 21:18; Start 12/25/17 at 21:00; Stop 12/25/17 at 21:01 ; Status DC Sodium Bicarbonate (Sodium Bicarbonate 8.4% Inj) 50 meq ONCE ONCE SLOW IVP Last administered on 12/25/17at 21:18; Start 12/25/17 at 21:00; Stop 12/25/17 at 21:01; Status DC Albuterol Sulfate (Albuterol Concentrated Neb) 10 mg ONCE ONCE INH Last administered on 12/25/17at 21:14; Start 12/25/17 at 21:00; Stop 12/25/17 at 21:01 ; Status DC Sodium Polystyrene Sulfonate (Kayexalate Liq) 15 gm ONCE ONCE PO ; Start at 21:00; Stop 12/25/17 at 21:01; Status DC Sodium Bicarbonate (Sodium Bicarbonate 8.4% Inj) 50 meq ONCE ONCE SLOW IVP Last administered on 12/25/17at 21:30; Start 12/25/17 at 21:30; Stop 12/25/17 at 21:31; Status DC Insulin Human Regular 100 units/ Sodium Chloride 100 ml @ 6.5 mls/hr TITRATE PRN IV Blood Sugar Management Last administered on 12/25/17at 22:40; Start at 21:30; Stop 12/26/17 at 12:45; Status DC Sodium Chloride 500 ml @ 500 mls/hr BOLUS ONCE IV Last administered on at 00:30; Start 12/26/17 at 00:30; Stop 12/26/17 at 01:29; Status DC Sodium Chloride (NS Flush) 2 ml UNSCH PRN IV FLUSH FLUSH AFTER USING IV ACCESS ; Start 12/26/17 at 01:45 Sodium Chloride (NS Flush) 2 ml BID IV FLUSH Last administered on 01/05/18at 08: 59; Start 12/26/17 at 09:00 Pantoprazole Sodium (Protonix) 40 mg DAILY PO Last administered on 01/05/18at 08 :56; Start 12/26/17 at 09:00 Ondansetron HCl (Zofran Inj) 4 mg Q6H PRN IV PUSH NAUSEA OR VOMITING; Start at 01:45 Albuterol Sulfate (Albuterol Neb) 2.5 mg Q2HR NEB PRN INH SOB/WHEEZING; Start 12/26/17 at 01:45; Stop 12/26/17 at 07:19; Status DC Miscellaneous Information 1 [id number] XX Last administered on 12/26/17at 01:45; Start 12/26/17 at 01:45 Chlorhexidine Gluconate (Chlorhexidine 2% Cloth) Taper DAILY@04 TOP Last administered on 01/03/18at 04:00; Start 12/26/17 at 04:00; Stop 12/22/18 at 03:59 Chlorhexidine Gluconate (Chlorhexidine 2% Cloth) 3 pack UNSCH PRN TOP HYGIENIC CARE; Start 12/26/17 at 01:45 Senna/Docusate Sodium ([place]-Colace) 1 tab BID PO Last administered on at 08:20; Start 12/26/17 at 09:00 Magnesium Hydroxide (Milk Of Magnesia Liq) 30 ml Q12H PRN PO Mild constipation ; Start 12/26/17 at 01:45 Sennosides (Senokot) 17.2 mg Q12H PRN PO Moderate constipation; Start 12/26/17 at 01:45 Bisacodyl (Dulcolax Supp) 10 mg DAILY PRN RECTAL SEVERE CONSITIPATION; Start at 01:45 Lactulose (Lactulose Liq) 30 ml DAILY PRN PO SEVERE CONSITIPATION; Start at 01:45 Ciprofloxacin (Cipro) 500 mg Q12HR PO ; Start 12/26/17 at 09:00; Stop 12/26/17 at 09:00; Status DC Dextrose 1,000 ml @ 40 mls/hr Q24H IV Last administered on 12/26/17at 02:09; Start 12/26/17 at 02:15; Stop 12/26/17 at 14:25; Status DC Fluconazole (Diflucan) 200 mg DAILY PO Last administered on 12/27/17at 08:09; Start 12/26/17 at 09:00; Stop 12/27/17 at 10:45; Status DC Piperacillin Sod/ Tazobactam Sod 50 ml @ 100 mls/hr Q8H IV Last administered on 12/26/17at 04:28; Start 12/26/17 at 02:00; Stop 12/26/17 at 12:09; Status DC Budesonide/ Formoterol Fumarate (Symbicort 160-4.5 Mcg Inh) 1 puff Q12HR INH Last administered on 01/05/18at 08:59; Start 12/26/17 at 09:00 Cholecalciferol (Vitamin D3) 1,000 units DAILY PO Last administered on at 09:00; Start 12/26/17 at 09:00 Amlodipine Besylate (Norvasc) 5 mg DAILY PO Last administered on 01/05/18at 08: 59; Start 12/26/17 at 09:00 Dextrose (D50w (Syr) Inj) 50 ml STK-MED ONCE .ROUTE Last administered on at 07:03; Start 12/26/17 at 06:59; Stop 12/26/17 at 07:00; Status DC Duloxetine HCl (Cymbalta Dr) 30 mg DAILY PO Last administered on 01/05/18at 08: 57; Start 12/26/17 at 09:00 Albuterol Sulfate (Albuterol Neb) 2.5 mg Q2HR NEB PRN NEB WHEEZING; Start 12/26 at 07:15 Dextrose (D50w (Syr) Inj) 50 ml ONCE ONCE IV ; Start 12/26/17 at 07:30; Stop at 07:31; Status DC Heparin Sodium (Porcine) (Heparin Inj) 5,000 units Q12HR SQ Last administered on 12/28/17at 20:04; Start 12/26/17 at 09:00; Stop 12/29/17 at 09:52; Status DC Piperacillin Sod/ Tazobactam Sod 50 ml @ 100 mls/hr Q8H IV Last administered on 12/31/17at 11:19; Start 12/26/17 at 12:00; Stop 12/31/17 at 13:25; Status DC Dextrose (D50w (Vial) Inj) 50 ml UNSCH PRN IV PUSH HYPOGLYCEMIA - SEE COMMENTS Last administered on 01/04/18at 07:41; Start 12/26/17 at 13:00 Glucagon (Glucagon Inj) 1 mg UNSCH PRN OTHER HYPOGLYCEMIA-SEE COMMENTS; Start 12/26/17 at 13:00 Insulin Aspart (NovoLOG SUPPLEMENTAL SCALE) 1 Q4HR SQ Last administered on 01/05at 08:00; Start 12/26/17 at 12:47 Sodium Chloride 1,000 ml @ 0 mls/hr Q0M PRN OTHER For Prime & Rinse Back; Start 12/26/17 at 13:45 Heparin Sodium (Porcine) (Heparin Inj) 8,000 units UNSCH PRN IV FLUSH WITH DIALYSIS; Start 12/26/17 at 13:45 Sodium Chloride 1,000 ml @ 200 mls/hr Q5H PRN IV WITH DIALYSIS; Start 12/26/17 at 13:45 Sodium Chloride 1,000 ml @ 0 mls/hr Q0M PRN OTHER WITH DIALYSIS; Start at 13:45 Mannitol (Mannitol Inj) 12.5 gm UNSCH PRN IV WITH DIALYSIS; Start 12/26/17 at 13:45 Albumin Human 100 ml @ 60 mls/hr UNSCH PRN IV WITH DIALYSIS; Start 12/26/17 at 13:45 Sodium Chloride (NS Flush) 5 ml UNSCH PRN IV FLUSH WITH DIALYSIS; Start at 13:45 Heparin Sodium (Porcine) (Heparin Inj) UNSCH PRN .XX WITH DIALYSIS; Start at 13:45 Gentamicin Sulfate (Gentamicin Inj) 20 mg UNSCH PRN OTHER WITH DIALYSIS; Start 12/26/17 at 13:45 Ondansetron HCl (Zofran Inj) 4 mg UNSCH PRN IV PUSH WITH DIALYSIS; Start at 13:45 Acetaminophen (Tylenol) 650 mg UNSCH PRN PO for headach, pain, temp > 101F; Start 12/26/17 at 13:45 Diphenhydramine HCl (Benadryl) 25 mg UNSCH PRN PO for hives/itching/anaphylaxis ; Start 12/26/17 at 13:45 Nitroglycerin (Nitrostat Sl) 0.4 mg UNSCH PRN SL CHEST PAIN Last administered on 12/29/17at 08:05; Start 12/26/17 at 13:45 Clonidine (Catapres) 0.1 mg UNSCH PRN PO for BP > 180/100 X 2 readings; Start 12/26/17 at 13:45 Epoetin Marco A (Epogen Inj) 10,000 units UNSCH PRN IV PUSH WITH DIALYSIS Last administered on 01/04/18at 11:47; Start 12/26/17 at 13:45 Gelatin (Gelfoam 12 Mm/7 Mm Top) 1 foam UNSCH PRN TOP SEE LABEL COMMENTS Last administered on 12/28/17at 15:42; Start 12/26/17 at 13:45 Aspirin (Aspirin Chew) 81 mg DAILY CHEW Last administered on 01/05/18 08:57; Start 12/26/17 at 15:00 Morphine Sulfate (Morphine Inj) 2 mg Q3H PRN IM pain 5-10; Start 12/26/17 at 14 :30; Stop 12/26/17 at 17:01; Status DC Sevelamer Carbonate (Renvela) 1,600 mg TIDAC PO Last administered on 12/27/17 08:09; Start 12/26/17 at 17:00; Stop 12/27/17 at 12:40; Status DC Morphine Sulfate (Morphine Inj) 2 mg Q3H PRN IV pain 5-10 Last administered on 12/31/17at 04:45; Start 12/26/17 at 17:15 Insulin Detemir (Levemir Inj) 3 units Q12HR SQ Last administered on 12/27/17 20:56; Start 12/27/17 at 12:15; Stop 12/29/17 at 13:59; Status DC Acetaminophen/ Hydrocodone Bitart ([place] 7.5-325 Mg) 1 tab Q4H PRN PO pain 1- 4 Last administered on 01/05/18 08:58; Start 12/27/17 at 12:15 Sevelamer Carbonate (Renvela) 2,400 mg TIDAC PO Last administered on 01/05/18 08:56; Start 12/27/17 at 17:00 Metoprolol Tartrate (Lopressor) 25 mg Q8H PO Last administered on 01/05/18 08: 57; Start 12/29/17 at 08:00 Metoprolol Tartrate (Lopressor Inj) 2.5 mg ONCE PRN IV PUSH ANGINA Last administered on 12/29/17 08:16; Start 12/29/17 at 08:00; Stop 12/29/17 at 23:00 ; Status DC Nitroglycerin (Nitroglycerin 2% Oint) 1 inch Q8H TOPICAL Last administered on 08:58; Start 12/29/17 at 08:00 Ketorolac Tromethamine (Toradol Inj) 30 mg STAT ONCE IV PUSH Last administered on 12/29/17at 08:45; Start 12/29/17 at 08:45; Stop 12/29/17 at 08:46 ; Status DC Insulin Human Regular (NovoLIN R INJ) 10 units NOW ONCE IV PUSH Last administered on 12/29/17at 08:30; Start 12/29/17 at 08:45; Stop 12/29/17 at 08:46 ; Status DC Heparin Sodium/ Sodium Chloride 2,000 ml @ As Directed STK-MED ONCE IV FLUSH Last administered on 12/29/17at 08:50; Start 12/29/17 at 08:50; Stop 12/29/17 at 08:51; Status DC Midazolam HCl (Versed Inj) 2 mg STK-MED ONCE .ROUTE ; Start 12/29/17 at 08:50; Stop 12/29/17 at 08:51; Status DC Fentanyl Citrate (fentaNYL INJ) 100 mcg STK-MED ONCE .ROUTE Last administered on 12/29/17at 09:09; Start 12/29/17 at 08:50; Stop 12/29/17 at 08:51; Status DC Nitroglycerin 0 ml @ As Directed STK-MED ONCE .ROUTE ; Start 12/29/17 at 08:50; Stop 12/29/17 at 08:51; Status DC Sodium Chloride 1,000 ml @ 30 mls/hr Q24H IV ; Start 12/29/17 at 08:57; Stop at 09:49; Status DC Aspirin (Aspirin) 325 mg GLUER AND WEDGER PO ; Start 12/29/17 at 09:00; Stop 01/02/18 at 08:59; Status DC Fentanyl Citrate (fentaNYL INJ) 50 mcg GLUER AND WEDGER IV PUSH ; Start 12/29/17 at 09: 00; Stop 01/02/18 at 08:59; Status DC Midazolam HCl (Versed Inj) 1 mg GLUER AND WEDGER IV PUSH ; Start 12/29/17 at 09:00; Stop 01/02/18 at 08:59; Status DC Sodium Chloride (NS Flush) 2 ml BID IV FLUSH ; Start 12/29/17 at 21:00; Stop at 21:00; Status DC Sodium Chloride (NS Flush) 2 ml UNSCH PRN IV FLUSH FLUSH AFTER USING IV ACCESS ; Start 12/29/17 at 09:45; Stop 12/29/17 at 09:52; Status DC Miscellaneous Information 1 ONCE ONCE XX ; Start 12/29/17 at 09:45; Stop at 09:52; Status DC Atropine Sulfate (Atropine Inj) 0.5 mg UNSCH PRN IV PUSH VAGAL REPONSE; Start 12/29/17 at 09:45 Sodium Chloride 250 ml @ 500 mls/hr ONCE PRN IV VAGAL REPONSE; Start 12/29/17 at 09:45; Stop 12/30/17 at 09:44; Status DC Bacitracin (Bacitracin Oint Packet) 0.9 gm ONCE ONCE TOP ; Start 12/29/17 at 09 :45; Stop 12/29/17 at 09:50; Status DC Ketorolac Tromethamine (Toradol Inj) 15 mg Q8HR PRN IM CHEST PAIN; Start at 10:00; Stop 01/03/18 at 09:59; Status DC Insulin Human Regular (NovoLIN R INJ) 20 units NOW ONCE IV PUSH ; Start at 12:00; Stop 12/29/17 at 12:01; Status DC Insulin Human Regular (NovoLIN R INJ) 20 units NOW ONCE SQ Last administered on 12/29/17at 12:00; Start 12/29/17 at 12:45; Stop 12/29/17 at 12:46; Status DC Insulin Detemir (Levemir Inj) 10 units Q12HR SQ ; Start 12/29/17 at 21:00; Stop 12/30/17 at 07:55; Status DC Insulin Detemir (Levemir Inj) 20 units Q12HR SQ Last administered on 01/05/18at 09:00; Start 12/30/17 at 09:00 Lactated Ringer's 1,000 ml @ 30 mls/hr Q24H PRN IV SEE LABEL COMMENTS; Start at 00:45; Stop 01/03/18 at 00:44; Status DC Sodium Chloride 500 ml @ 30 mls/hr [id number] PRN IV SEE LABEL COMMENTS; Start at 00:45; Stop 01/03/18 at 00:44; Status DC Povidone Iodine (Betadine 5% Antisepsis Kit) 1 applic GLUER AND WEDGER PRN EACH NARE SEE LABEL COMMENTS; Start 12/31/17 at 00:45; Stop 01/03/18 at 00:44; Status DC Chlorhexidine Gluconate (Chlorhexidine 2% Cloth) 3 pack GLUER AND WEDGER PRN TOPICAL SEE LABEL COMMENTS; Start 12/31/17 at 00:45; Stop 01/03/18 at 00:44; Status DC Protamine Sulfate (Protamine Sulfate Inj) 50 mg STK-MED ONCE .ROUTE ; Start at 06:54; Stop 12/31/17 at 06:55; Status DC Heparin Sodium (Porcine) (Heparin Inj) 10,000 units STK-MED ONCE .ROUTE ; Start 12/31/17 at 06:54; Stop 12/31/17 at 06:55; Status DC Vancomycin HCl (Vancomycin Inj) 1,000 mg STK-MED ONCE .ROUTE ; Start 12/31/17 at 06:54; Stop 12/31/17 at 06:55; Status DC Heparin Sodium/ Sodium Chloride 500 ml @ As Directed STK-MED ONCE .ROUTE Last administered on 12/31/17at 06:54; Start 12/31/17 at 06:54; Stop 12/31/17 at 06:55 ; Status DC Fentanyl Citrate (fentaNYL INJ) 250 mcg STK-MED ONCE .ROUTE ; Start 12/31/17 at 07:22; Stop 12/31/17 at 07:23; Status DC Iohexol 50 ml @ 0 mls/hr ONCE ONCE IV Last administered on 12/31/17at 08:00; Start 12/31/17 at 08:00; Stop 12/31/17 at 08:12; Status DC Heparin Sodium/ Sodium Chloride 500 ml @ As Directed STK-MED ONCE .ROUTE Last administered on 12/31/17at 08:52; Start 12/31/17 at 08:52; Stop 12/31/17 at 08:53 ; Status DC Miscellaneous Information ALL NURSING DEPARTME... UNSCH PRN .XX SEE LABEL COMMENTS; Start 12/31/17 at 10:15; Stop 01/01/18 at 10:14; Status DC Iohexol (OMNIPAQUE 350 INJ (Product Development)) 50 ml STK-MED ONCE OTHER ; Start at 11:36; Stop 12/31/17 at 11:37; Status DC Ampicillin Sodium/ Sulbactam Sodium 3 gm/Sodium Chloride 100 ml @ 200 mls/hr Q24H IV Last administered on 01/04/18at 17:17; Start 12/31/17 at 18:00 Sodium Chloride 500 ml @ As Directed STK-MED ONCE IV ; Start 12/31/17 at 12:00 ; Stop 01/01/18 at 12:08; Status DC Lidocaine HCl (Xylocaine-Mpf 1% Inj) 5 ml STK-MED ONCE OTHER ; Start 12/31/17 at 12:00; Stop 01/01/18 at 12:08; Status DC Rocuronium [place] (Zemuron Inj) 50 mg STK-MED ONCE IV PUSH ; Start 12/31/17 at 12:00; Stop 01/01/18 at 12:08; Status DC Neostigmine Methylsulfate (Prostigmine Inj) 5 mg STK-MED ONCE IV PUSH ; Start at 12:00; Stop 01/01/18 at 12:08; Status DC Glycopyrrolate (Robinul Inj) 1 mg STK-MED ONCE IV PUSH ; Start 12/31/17 at 12:00 ; Stop 01/01/18 at 12:08; Status DC Phenylephrine HCl (Neosynephrine/ NS 1000 Mcg/10ml Syr) 2,000 mcg STK-MED ONCE IV ; Start 12/31/17 at 12:00; Stop 01/01/18 at 12:08; Status DC Ephedrine Sulfate (ePHEDrine/NS 25 MG/5 ML SYR) 25 mg STK-MED ONCE IV ; Start at 12:00; Stop 01/01/18 at 12:08; Status DC Ondansetron HCl (Zofran Inj) 4 mg STK-MED ONCE IV ; Start 12/31/17 at 12:00; Stop 01/01/18 at 12:08; Status DC Propofol (Diprivan 200 Mg/20 ml Inj) 200 mg STK-MED ONCE IV ; Start 12/31/17 at 12:00; Stop 01/01/18 at 12:08; Status DC Propofol (Diprivan 200 Mg/20 ml Inj) 400 mg STK-MED ONCE .ROUTE ; Start at 13:58; Stop 01/02/18 at 13:59; Status DC A/P Problem List: (1) PAD (peripheral artery disease) ICD Code: I73.9 - Peripheral vascular disease, unspecified Status: Chronic (2) Diabetic nephropathy ICD Code: E11.21 - Diabetic nephropathy Status: Chronic (3) CKD (chronic kidney disease) stage V requiring chronic dialysis ICD Code: N18.6 - End stage renal disease; Z99.2 - Dependence on renal dialysis Status: Chronic (4) Dyslipidemia ICD Code: E78.5 - Dyslipidemia Status: Chronic (5) DM (diabetes mellitus) ICD Code: E11.9 - Type 2 diabetes mellitus without complications Status: Chronic (6) HTN (hypertension) ICD Code: I10 - Essential (primary) hypertension Status: Chronic Permanent Comment: Last Edited By: Jasmyne Bee on Jul 11, 2017 15:31 (7) PAD (peripheral artery disease) ICD Code: I73.9 - Peripheral vascular disease, unspecified Status: Chronic (8) Ischemic ulcer diabetic foot ICD Code: E11.621 - Type 2 diabetes mellitus with foot ulcer; L97.509 - Non- pressure chronic ulcer of other part of unspecified foot with unspecified severity Status: Acute (9) ESRD on hemodialysis ICD Code: N18.6 - End stage renal disease; Z99.2 - Dependence on renal dialysis Status: Chronic (10) COPD (chronic obstructive pulmonary disease) ICD Code: J44.9 - Chronic obstructive pulmonary disease, unspecified Status: Chronic (11) DKA (diabetic ketoacidoses) ICD Code: E13.10 - Other specified diabetes mellitus with ketoacidosis without coma Status: Acute (12) Encephalopathy acute ICD Code: G93.40 - Encephalopathy, unspecified Status: Acute (13) Osteomyelitis ICD Code: M86.9 - Osteomyelitis, unspecified Status: Acute Assessment and Plan 57-year-old man with 1. Acute toxic metabolic encephalopathy/Peripheral Neuropathy/Depression Resolved CT brain negative. 2. COPD/Tobacco dependence on Symbicort 160/4.5 2 puffs inhaled twice a day 3. Hypertension/Peripheral Artery Disease/Ischemic distal digits status post Left posterior tibial artery angioplasty 09/24/17 Dr Ortiz Amlodipine 5 mg daily and Lisinopril 10 mg daily 4. ESRD on Hemodialysis M/W/F, Nephrology specialist following Hyperkalemia-Resolved 5. Osteomyelitis of the left foot Left second toe amputation 07/11/17 Left Posterior tibial artery angioplasty 09/24/17 I and D Left foot 09/28/17 left foot transmetatarsal amputation 09/26/17 Dr. Judge Poor wound healing and dry gangrene as well as probable wet gangrene noted ID and podiatry ff Currently on Unasyn IV, status post Zosyn ID specialist and Vascular Surgery s/p bilateral angiogram with balloon angioplasty 12/31/17 AJAY negative for endocarditis 01/02/18 Possible left BKA to be determined by facilitator. IF concern poor wound healing of his right TMA site due to severe vacular disease. 6. Anemia of chronic disease 7. DKA resolved/DM II On Levemir 20 units every 12 hours STEMI on 12/29/17 [facility] without any stent placement PROPH: Heparin 5000 units subcutaneous every 12 hours for DVT prophylaxis. Protonix 40 mg by mouth daily Discharge Planning Patient is on IV antibiotics and may need a left BKA. Problem Qualifiers (1) DKA (diabetic ketoacidoses): (2) Osteomyelitis: Qualified Codes: M86.8X7 - Other osteomyelitis, ankle and foot Chetna Moore MD Jan 05, 2018 10:19
[2018-01-05 12:00] VITALS: BP 139/65; PULSE 77; RESP 15; TEMP 97.9; O2SAT 96
--- NOTE | 2018-01-05 14:13 | HHI.NPPN ---
Subjective General Problems: Anemia, Diabetes Renal Failure: Chronic, End Stage Renal Disease Review of Systems Musculoskeletal MS: Pain/Stiffness Skin Skin: Ulcers Skin Remarks right great toe, left MFA skin changes, non healing Objective Data Data Vital Signs Date Time Temp Pulse Resp B/P (MAP) Pulse Ox O2 Delivery O2 Flow Rate FiO2 01/05/18 12:00 97.9 77 15 139/65 (89) 96 01/05/18 08:00 98.3 82 14 146/70 (95) 95 01/04/18 20:00 97.1 79 16 145/73 (97) 98 01/04/18 16:00 98.7 81 19 136/67 (90) 98 -: 01/04/18 0550 01/04/18 0550 Tubes & Lines Comment Ta right chest Physical Exam General Appearance: Well Developed, Well Nourished, No Acute Distress, Comfortable Eyes Eye Exam: Pupils Equal Neck Neck Exam: Neck Supple Pulmonary Resp Exam: Clear Bilaterally, Breath Sounds Equal Cardiology CV Exam: Regular, Normal Sinus Rhythm Gastrointestinal/Abdomen GI Exam: Soft, Non-Tender, Bowel Sounds Present Musculoskeletal MS Exam: Joints Intact, Good Strength Integumentary Skin Exam: Warm, Dry Extremeties Extremities Exam: No Edema, Pedal Pulses Palpable Neurologic Neuro Exam: Alert, Awake, Oriented, Speech Clear, Moving All Extremities Psychiatric Psych Exam: Appropriate Responses Assessment/Plan Discussed Condition With: Patient Assessment Summary: Anemia of CKD, Hypertension, Diabetes Mellitus, End Stage Renal Disease Problem List: (1) ESRD (end stage renal disease) ICD Codes: N18.6 - End-stage renal disease Status: Resolved Plan: Continue HD on MWF. 3L UF Sunday Using AVF left arm for HD He has existing HD arrangements in place for discharge purposes. Avoid IVF administration, gadolinium in contraindicated High protein diet ordered with protein supplements Repeat labs intermittently. (2) Osteomyelitis ICD Codes: M86.9 - Osteomyelitis, unspecified Status: Acute Plan: ID, podiatry, and vascular following On Unasyn IV s/p bilateral balloon angioplasty Possible L BKA if no improvement. Patient is not in agreement at this time. May be discharged with vascular follow up. They recommend waiting to reevaluate right sided prior to any amputations to assess for improvement. Cultures are negative at this time. Continue to monitor. AJAY 01/02: No veg, mild MR and mild TR Unclear if we can remove the Ta; if antibiotics will be required at discharge consider leaving it in. ID assistance on this matter is appreciated. (3) PAD (peripheral artery disease) ICD Codes: I73.9 - Peripheral vascular disease, unspecified Status: Chronic Plan: See above Needs wound care to left foot/amputation site. (4) Bone metabolism disorder ICD Codes: E88.9 - Metabolic disorder, unspecified; M90.80 - Osteopathy in diseases classified elsewhere, unspecified site Status: Acute Plan: Phosphorus improved, On high dose Renvela with meals Advised binder compliance Repeat level intermittently (5) DKA (diabetic ketoacidoses) ICD Codes: E13.10 - Other specified diabetes mellitus with ketoacidosis without coma Status: Acute Plan: Labile blood sugar A1c 10.7 On Levemir Brittle DM 1 (6) HTN (hypertension) ICD Codes: I10 - Essential (primary) hypertension Status: Chronic Plan: Continue home medications, titrate as needed Permanent Comment: Last Edited By: Jasmyne Bee on Jul 11, 2017 15:31 (7) Anemia ICD Codes: D64.9 - Anemia, unspecified Plan: Epogen with dialysis (8) Hyperkalemia ICD Codes: E87.5 - Hyperkalemia Status: Acute Plan: Improved. Continue to monitor. Problem Qualifiers (1) Osteomyelitis: Qualified Codes: M86.8X7 - Other osteomyelitis, ankle and foot (2) DKA (diabetic ketoacidoses): (3) Anemia: Qualified Codes: N18.6 - End stage renal disease; D63.1 - Anemia in chronic kidney disease; Z99.2 - Dependence on renal dialysis Edd Tomas MD Jan 05, 2018 14:13
[2018-01-05 16:00] VITALS: BP 123/59; PULSE 75; RESP 14; TEMP 97.9; O2SAT 95
[2018-01-05] MEDS: AMPICILLIN-SULBACTAM INJ 3 GM in SODIUM CHLORIDE 0.9% INJ 100 ML IV SCH (17:19)
[2018-01-05 20:46] VITALS: BP 136/73; PULSE 80; RESP 18; TEMP 98; O2SAT 92
[2018-01-06 00:12] VITALS: BP 138/68; PULSE 75; RESP 18; TEMP 97.9; O2SAT 94
[2018-01-06] MEDS: METOPROLOL TARTRATE 25 MG TAB PO SCH ×3 (00:55→18:26)
[2018-01-06] MEDS: CHLORHEXIDINE GLUCONATE 2 % 1 PACK (2 CLOTHS) TOP SCH (00:58)
[2018-01-06] MEDS: LOW DOSE INSULIN NOVOLOG SUPPLEMENTAL SCALE SQ SCH ×5 (04:00→20:00)
[2018-01-06] MEDS: ACETAMINOPHEN/HYDROcodone 325 MG/7.5 MG TAB PO PRN ×3 (05:48→18:25)
[2018-01-06 08:00] VITALS: BP 144/69; PULSE 72; RESP 15; TEMP 98.1; O2SAT 99
[2018-01-06] MEDS: SEVELAMER CARBONATE 800 MG TAB PO SCH ×3 (08:25→18:25)
[2018-01-06] MEDS: DULoxetine HCl DR 30 MG CAP PO SCH (08:25)
[2018-01-06] MEDS: ASPIRIN 81 MG CHEW TAB CHEW SCH (08:25)
[2018-01-06] MEDS: CHOLECALCIFEROL (VIT D3) 1000 UNIT TAB PO SCH (08:25)
[2018-01-06] MEDS: PANTOPRAZOLE SOD 40 MG DELAYED RELEASE TAB PO SCH (08:25)
[2018-01-06] MEDS: amLODIPine BESYLATE 5 MG TAB PO SCH (08:26)
[2018-01-06] MEDS: NITROGLYCERIN 2% OINT 1 GM PACKET TOPICAL SCH ×3 (08:26→18:26)
[2018-01-06] MEDS: BUDESONIDE-FORMOTEROL 160/4.5 MCG INHALER INH SCH ×2 (08:26→21:33)
[2018-01-06] MEDS: SODIUM CHLORIDE 0.9% FLUSH 10 ML FLUSH IV FLUSH SCH ×2 (08:32→21:34)
[2018-01-06] MEDS: INSULIN DETEMIR 100 UNITS/ML VIAL SQ SCH ×2 (08:32→21:00)
[2018-01-06] MEDS: DOCUSATE SODIUM 50 MG/SENNA 8.6 MG TAB PO SCH ×2 (08:32→21:00)
--- NOTE | 2018-01-06 11:03 | HHI.PR ---
Subjective Remarks Follow-up for infection of lower extremity Patient very anxious to go home he is asking weaning go home. He remains afebrile. He has no other complaints. Objective Vitals Vital Signs Date Time Temp Pulse Resp B/P (MAP) Pulse Ox O2 Delivery O2 Flow Rate FiO2 01/06/18 08:00 98.1 72 15 144/69 (94) 99 01/06/18 00:12 97.9 75 18 138/68 (91) 94 01/05/18 20:46 98.0 80 18 136/73 (94) 92 01/05/18 16:00 97.9 75 14 123/59 (80) 95 01/05/18 12:00 97.9 77 15 139/65 (89) 96 I/O 01/05/18 01/05/18 01/05/18 01/06/18 01/06/18 01/06/18 07:00 15:00 23:00 07:00 15:00 23:00 Intake Total 240 ml 1000 ml Output Total 0 ml Balance 240 ml 1000 ml Intake Oral 240 ml 1000 ml Output Urine Total 0 ml # Voids 0 0 # Bowel Movements 0 0 Result Diagram: 01/04/18 0550 01/04/18 0550 Objective Remarks GENERAL: in NAD CARDIOVASCULAR: Regular rate and rhythm without murmurs, gallops, or rubs. RESPIRATORY: Breath sounds equal bilaterally. No accessory muscle use. GASTROINTESTINAL: Abdomen soft, non-tender, nondistended. MUSCULOSKELETAL: left foot all toes amputated with necrotic tissue. right TMA poor wound healing. Medications and IVs Current Medications Sodium Chloride (NS Flush) 2 ml UNSCH PRN IVF FLUSH AFTER USING IV ACCESS; Start 12/25/17 at 20:30; Stop 12/26/17 at 07:38; Status DC Calcium Gluconate (Calcium Gluconate Inj) 2 gm ONCE ONCE SLOW IVP Last administered on 12/25/17at 21:18; Start 12/25/17 at 21:00; Stop 12/25/17 at 21:01 ; Status DC Insulin Human Regular (NovoLIN R INJ) 10 units ONCE ONCE IV PUSH Last administered on 12/25/17at 21:18; Start 12/25/17 at 21:00; Stop 12/25/17 at 21:01 ; Status DC Sodium Bicarbonate (Sodium Bicarbonate 8.4% Inj) 50 meq ONCE ONCE SLOW IVP Last administered on 12/25/17at 21:18; Start 12/25/17 at 21:00; Stop 12/25/17 at 21:01; Status DC Albuterol Sulfate (Albuterol Concentrated Neb) 10 mg ONCE ONCE INH Last administered on 12/25/17at 21:14; Start 12/25/17 at 21:00; Stop 12/25/17 at 21:01 ; Status DC Sodium Polystyrene Sulfonate (Kayexalate Liq) 15 gm ONCE ONCE PO ; Start at 21:00; Stop 12/25/17 at 21:01; Status DC Sodium Bicarbonate (Sodium Bicarbonate 8.4% Inj) 50 meq ONCE ONCE SLOW IVP Last administered on 12/25/17at 21:30; Start 12/25/17 at 21:30; Stop 12/25/17 at 21:31; Status DC Insulin Human Regular 100 units/ Sodium Chloride 100 ml @ 6.5 mls/hr TITRATE PRN IV Blood Sugar Management Last administered on 12/25/17at 22:40; Start at 21:30; Stop 12/26/17 at 12:45; Status DC Sodium Chloride 500 ml @ 500 mls/hr BOLUS ONCE IV Last administered on at 00:30; Start 12/26/17 at 00:30; Stop 12/26/17 at 01:29; Status DC Sodium Chloride (NS Flush) 2 ml UNSCH PRN IV FLUSH FLUSH AFTER USING IV ACCESS ; Start 12/26/17 at 01:45 Sodium Chloride (NS Flush) 2 ml BID IV FLUSH Last administered on 01/06/18at 08: 32; Start 12/26/17 at 09:00 Pantoprazole Sodium (Protonix) 40 mg DAILY PO Last administered on 01/06/18at 08 :25; Start 12/26/17 at 09:00 Ondansetron HCl (Zofran Inj) 4 mg Q6H PRN IV PUSH NAUSEA OR VOMITING; Start at 01:45 Albuterol Sulfate (Albuterol Neb) 2.5 mg Q2HR NEB PRN INH SOB/WHEEZING; Start 12/26/17 at 01:45; Stop 12/26/17 at 07:19; Status DC Miscellaneous Information 1 [id number] XX Last administered on 12/26/17at 01:45; Start 12/26/17 at 01:45 Chlorhexidine Gluconate (Chlorhexidine 2% Cloth) Taper DAILY@04 TOP Last administered on 01/03/18at 04:00; Start 12/26/17 at 04:00; Stop 12/22/18 at 03:59 Chlorhexidine Gluconate (Chlorhexidine 2% Cloth) 3 pack UNSCH PRN TOP HYGIENIC CARE; Start 12/26/17 at 01:45 Senna/Docusate Sodium (Odette-Colace) 1 tab BID PO Last administered on at 08:20; Start 12/26/17 at 09:00 Magnesium Hydroxide (Milk Of Magnesia Liq) 30 ml Q12H PRN PO Mild constipation ; Start 12/26/17 at 01:45 Sennosides (Senokot) 17.2 mg Q12H PRN PO Moderate constipation; Start 12/26/17 at 01:45 Bisacodyl (Dulcolax Supp) 10 mg DAILY PRN RECTAL SEVERE CONSITIPATION; Start at 01:45 Lactulose (Lactulose Liq) 30 ml DAILY PRN PO SEVERE CONSITIPATION; Start at 01:45 Ciprofloxacin (Cipro) 500 mg Q12HR PO ; Start 12/26/17 at 09:00; Stop 12/26/17 at 09:00; Status DC Dextrose 1,000 ml @ 40 mls/hr Q24H IV Last administered on 12/26/17at 02:09; Start 12/26/17 at 02:15; Stop 12/26/17 at 14:25; Status DC Fluconazole (Diflucan) 200 mg DAILY PO Last administered on 12/27/17at 08:09; Start 12/26/17 at 09:00; Stop 12/27/17 at 10:45; Status DC Piperacillin Sod/ Tazobactam Sod 50 ml @ 100 mls/hr Q8H IV Last administered on 12/26/17at 04:28; Start 12/26/17 at 02:00; Stop 12/26/17 at 12:09; Status DC Budesonide/ Formoterol Fumarate (Symbicort 160-4.5 Mcg Inh) 1 puff Q12HR INH Last administered on 01/06/18 08:26; Start 12/26/17 at 09:00 Cholecalciferol (Vitamin D3) 1,000 units DAILY PO Last administered on 08:25; Start 12/26/17 at 09:00 Amlodipine Besylate (Norvasc) 5 mg DAILY PO Last administered on 01/06/18 08: 26; Start 12/26/17 at 09:00 Dextrose (D50w (Syr) Inj) 50 ml STK-MED ONCE .ROUTE Last administered on at 07:03; Start 12/26/17 at 06:59; Stop 12/26/17 at 07:00; Status DC Duloxetine HCl (Cymbalta Dr) 30 mg DAILY PO Last administered on 01/06/18 08: 25; Start 12/26/17 at 09:00 Albuterol Sulfate (Albuterol Neb) 2.5 mg Q2HR NEB PRN NEB WHEEZING; Start 12/26 at 07:15 Dextrose (D50w (Syr) Inj) 50 ml ONCE ONCE IV ; Start 12/26/17 at 07:30; Stop at 07:31; Status DC Heparin Sodium (Porcine) (Heparin Inj) 5,000 units Q12HR SQ Last administered on 12/28/17at 20:04; Start 12/26/17 at 09:00; Stop 12/29/17 at 09:52; Status DC Piperacillin Sod/ Tazobactam Sod 50 ml @ 100 mls/hr Q8H IV Last administered on 12/31/17at 11:19; Start 12/26/17 at 12:00; Stop 12/31/17 at 13:25; Status DC Dextrose (D50w (Vial) Inj) 50 ml UNSCH PRN IV PUSH HYPOGLYCEMIA - SEE COMMENTS Last administered on 01/04/18at 07:41; Start 12/26/17 at 13:00 Glucagon (Glucagon Inj) 1 mg UNSCH PRN OTHER HYPOGLYCEMIA-SEE COMMENTS; Start 12/26/17 at 13:00 Insulin Aspart (NovoLOG SUPPLEMENTAL SCALE) 1 Q4HR SQ Last administered on 01/05at 12:00; Start 12/26/17 at 12:47 Sodium Chloride 1,000 ml @ 0 mls/hr Q0M PRN OTHER For Prime & Rinse Back; Start 12/26/17 at 13:45 Heparin Sodium (Porcine) (Heparin Inj) 8,000 units UNSCH PRN IV FLUSH WITH DIALYSIS; Start 12/26/17 at 13:45 Sodium Chloride 1,000 ml @ 200 mls/hr Q5H PRN IV WITH DIALYSIS; Start 12/26/17 at 13:45 Sodium Chloride 1,000 ml @ 0 mls/hr Q0M PRN OTHER WITH DIALYSIS; Start at 13:45 Mannitol (Mannitol Inj) 12.5 gm UNSCH PRN IV WITH DIALYSIS; Start 12/26/17 at 13:45 Albumin Human 100 ml @ 60 mls/hr UNSCH PRN IV WITH DIALYSIS; Start 12/26/17 at 13:45 Sodium Chloride (NS Flush) 5 ml UNSCH PRN IV FLUSH WITH DIALYSIS; Start at 13:45 Heparin Sodium (Porcine) (Heparin Inj) UNSCH PRN .XX WITH DIALYSIS; Start at 13:45 Gentamicin Sulfate (Gentamicin Inj) 20 mg UNSCH PRN OTHER WITH DIALYSIS; Start 12/26/17 at 13:45 Ondansetron HCl (Zofran Inj) 4 mg UNSCH PRN IV PUSH WITH DIALYSIS; Start at 13:45 Acetaminophen (Tylenol) 650 mg UNSCH PRN PO for headach, pain, temp > 101F; Start 12/26/17 at 13:45 Diphenhydramine HCl (Benadryl) 25 mg UNSCH PRN PO for hives/itching/anaphylaxis ; Start 12/26/17 at 13:45 Nitroglycerin (Nitrostat Sl) 0.4 mg UNSCH PRN SL CHEST PAIN Last administered on 12/29/17at 08:05; Start 12/26/17 at 13:45 Clonidine (Catapres) 0.1 mg UNSCH PRN PO for BP > 180/100 X 2 readings; Start 12/26/17 at 13:45 Epoetin Marco A (Epogen Inj) 10,000 units UNSCH PRN IV PUSH WITH DIALYSIS Last administered on 01/04/18at 11:47; Start 12/26/17 at 13:45 Gelatin (Gelfoam 12 Mm/7 Mm Top) 1 foam UNSCH PRN TOP SEE LABEL COMMENTS Last administered on 3/16/18at 15:42; Start 12/26/17 at 13:45 Aspirin (Aspirin Chew) 81 mg DAILY CHEW Last administered on 01/06/18 08:25; Start 12/26/17 at 15:00 Morphine Sulfate (Morphine Inj) 2 mg Q3H PRN IM pain 5-10; Start 12/26/17 at 14 :30; Stop 12/26/17 at 17:01; Status DC Sevelamer Carbonate (Renvela) 1,600 mg TIDAC PO Last administered on 12/27/17 08:09; Start 12/26/17 at 17:00; Stop 12/27/17 at 12:40; Status DC Morphine Sulfate (Morphine Inj) 2 mg Q3H PRN IV pain 5-10 Last administered on 12/31/17 04:45; Start 12/26/17 at 17:15 Insulin Detemir (Levemir Inj) 3 units Q12HR SQ Last administered on 12/27/17 20:56; Start 12/27/17 at 12:15; Stop 12/29/17 at 13:59; Status DC Acetaminophen/ Hydrocodone Bitart ([place] 7.5-325 Mg) 1 tab Q4H PRN PO pain 1- 4 Last administered on 01/06/18 05:48; Start 12/27/17 at 12:15 Sevelamer Carbonate (Renvela) 2,400 mg TIDAC PO Last administered on 01/06/18 08:25; Start 12/27/17 at 17:00 Metoprolol Tartrate (Lopressor) 25 mg Q8H PO Last administered on 01/06/18 08: 26; Start 12/29/17 at 08:00 Metoprolol Tartrate (Lopressor Inj) 2.5 mg ONCE PRN IV PUSH ANGINA Last administered on 12/29/17 08:16; Start 12/29/17 at 08:00; Stop 12/29/17 at 23:00 ; Status DC Nitroglycerin (Nitroglycerin 2% Oint) 1 inch Q8H TOPICAL Last administered on 08:26; Start 12/29/17 at 08:00 Ketorolac Tromethamine (Toradol Inj) 30 mg STAT ONCE IV PUSH Last administered on 12/29/17at 08:45; Start 12/29/17 at 08:45; Stop 12/29/17 at 08:46 ; Status DC Insulin Human Regular (NovoLIN R INJ) 10 units NOW ONCE IV PUSH Last administered on 12/29/17at 08:30; Start 12/29/17 at 08:45; Stop 12/29/17 at 08:46 ; Status DC Heparin Sodium/ Sodium Chloride 2,000 ml @ As Directed STK-MED ONCE IV FLUSH Last administered on 12/29/17at 08:50; Start 12/29/17 at 08:50; Stop 12/29/17 at 08:51; Status DC Midazolam HCl (Versed Inj) 2 mg STK-MED ONCE .ROUTE ; Start 12/29/17 at 08:50; Stop 12/29/17 at 08:51; Status DC Fentanyl Citrate (fentaNYL INJ) 100 mcg STK-MED ONCE .ROUTE Last administered on 12/29/17at 09:09; Start 12/29/17 at 08:50; Stop 12/29/17 at 08:51; Status DC Nitroglycerin 0 ml @ As Directed STK-MED ONCE .ROUTE ; Start 12/29/17 at 08:50; Stop 12/29/17 at 08:51; Status DC Sodium Chloride 1,000 ml @ 30 mls/hr Q24H IV ; Start 12/29/17 at 08:57; Stop at 09:49; Status DC Aspirin (Aspirin) 325 mg [facility] PO ; Start 12/29/17 at 09:00; Stop 01/02/18 at 08:59; Status DC Fentanyl Citrate (fentaNYL INJ) 50 mcg [facility] IV PUSH ; Start 12/29/17 at 09: 00; Stop 01/02/18 at 08:59; Status DC Midazolam HCl (Versed Inj) 1 mg [facility] IV PUSH ; Start 12/29/17 at 09:00; Stop 01/02/18 at 08:59; Status DC Sodium Chloride (NS Flush) 2 ml BID IV FLUSH ; Start 12/29/17 at 21:00; Stop at 21:00; Status DC Sodium Chloride (NS Flush) 2 ml UNSCH PRN IV FLUSH FLUSH AFTER USING IV ACCESS ; Start 12/29/17 at 09:45; Stop 12/29/17 at 09:52; Status DC Miscellaneous Information 1 ONCE ONCE XX ; Start 12/29/17 at 09:45; Stop at 09:52; Status DC Atropine Sulfate (Atropine Inj) 0.5 mg UNSCH PRN IV PUSH VAGAL REPONSE; Start 12/29/17 at 09:45 Sodium Chloride 250 ml @ 500 mls/hr ONCE PRN IV VAGAL REPONSE; Start 12/29/17 at 09:45; Stop 12/30/17 at 09:44; Status DC Bacitracin (Bacitracin Oint Packet) 0.9 gm ONCE ONCE TOP ; Start 12/29/17 at 09 :45; Stop 12/29/17 at 09:50; Status DC Ketorolac Tromethamine (Toradol Inj) 15 mg Q8HR PRN IM CHEST PAIN; Start at 10:00; Stop 01/03/18 at 09:59; Status DC Insulin Human Regular (NovoLIN R INJ) 20 units NOW ONCE IV PUSH ; Start at 12:00; Stop 12/29/17 at 12:01; Status DC Insulin Human Regular (NovoLIN R INJ) 20 units NOW ONCE SQ Last administered on 12/29/17at 12:00; Start 12/29/17 at 12:45; Stop 12/29/17 at 12:46; Status DC Insulin Detemir (Levemir Inj) 10 units Q12HR SQ ; Start 12/29/17 at 21:00; Stop 12/30/17 at 07:55; Status DC Insulin Detemir (Levemir Inj) 20 units Q12HR SQ Last administered on 01/06/18at 08:32; Start 12/30/17 at 09:00 Lactated Ringer's 1,000 ml @ 30 mls/hr Q24H PRN IV SEE LABEL COMMENTS; Start at 00:45; Stop 01/03/18 at 00:44; Status DC Sodium Chloride 500 ml @ 30 mls/hr [id number] PRN IV SEE LABEL COMMENTS; Start at 00:45; Stop 01/03/18 at 00:44; Status DC Povidone Iodine (Betadine 5% Antisepsis Kit) 1 applic [facility] PRN EACH NARE SEE LABEL COMMENTS; Start 12/31/17 at 00:45; Stop 01/03/18 at 00:44; Status DC Chlorhexidine Gluconate (Chlorhexidine 2% Cloth) 3 pack [facility] PRN TOPICAL SEE LABEL COMMENTS; Start 12/31/17 at 00:45; Stop 01/03/18 at 00:44; Status DC Protamine Sulfate (Protamine Sulfate Inj) 50 mg STK-MED ONCE .ROUTE ; Start at 06:54; Stop 12/31/17 at 06:55; Status DC Heparin Sodium (Porcine) (Heparin Inj) 10,000 units STK-MED ONCE .ROUTE ; Start 12/31/17 at 06:54; Stop 12/31/17 at 06:55; Status DC Vancomycin HCl (Vancomycin Inj) 1,000 mg STK-MED ONCE .ROUTE ; Start 12/31/17 at 06:54; Stop 12/31/17 at 06:55; Status DC Heparin Sodium/ Sodium Chloride 500 ml @ As Directed STK-MED ONCE .ROUTE Last administered on 12/31/17at 06:54; Start 12/31/17 at 06:54; Stop 12/31/17 at 06:55 ; Status DC Fentanyl Citrate (fentaNYL INJ) 250 mcg STK-MED ONCE .ROUTE ; Start 12/31/17 at 07:22; Stop 12/31/17 at 07:23; Status DC Iohexol 50 ml @ 0 mls/hr ONCE ONCE IV Last administered on 12/31/17at 08:00; Start 12/31/17 at 08:00; Stop 12/31/17 at 08:12; Status DC Heparin Sodium/ Sodium Chloride 500 ml @ As Directed STK-MED ONCE .ROUTE Last administered on 12/31/17at 08:52; Start 12/31/17 at 08:52; Stop 12/31/17 at 08:53 ; Status DC Miscellaneous Information ALL NURSING DEPARTME... UNSCH PRN .XX SEE LABEL COMMENTS; Start 12/31/17 at 10:15; Stop 01/01/18 at 10:14; Status DC Iohexol (OMNIPAQUE 350 INJ (Civil Estimator)) 50 ml STK-MED ONCE OTHER ; Start at 11:36; Stop 12/31/17 at 11:37; Status DC Ampicillin Sodium/ Sulbactam Sodium 3 gm/Sodium Chloride 100 ml @ 200 mls/hr Q24H IV Last administered on 01/05/18at 17:19; Start 12/31/17 at 18:00 Sodium Chloride 500 ml @ As Directed STK-MED ONCE IV ; Start 12/31/17 at 12:00 ; Stop 01/01/18 at 12:08; Status DC Lidocaine HCl (Xylocaine-Mpf 1% Inj) 5 ml STK-MED ONCE OTHER ; Start 12/31/17 at 12:00; Stop 01/01/18 at 12:08; Status DC Rocuronium [place] (Zemuron Inj) 50 mg STK-MED ONCE IV PUSH ; Start 12/31/17 at 12:00; Stop 01/01/18 at 12:08; Status DC Neostigmine Methylsulfate (Prostigmine Inj) 5 mg STK-MED ONCE IV PUSH ; Start at 12:00; Stop 01/01/18 at 12:08; Status DC Glycopyrrolate (Robinul Inj) 1 mg STK-MED ONCE IV PUSH ; Start 12/31/17 at 12:00 ; Stop 01/01/18 at 12:08; Status DC Phenylephrine HCl (Neosynephrine/ NS 1000 Mcg/10ml Syr) 2,000 mcg STK-MED ONCE IV ; Start 12/31/17 at 12:00; Stop 01/01/18 at 12:08; Status DC Ephedrine Sulfate (ePHEDrine/NS 25 MG/5 ML SYR) 25 mg STK-MED ONCE IV ; Start at 12:00; Stop 01/01/18 at 12:08; Status DC Ondansetron HCl (Zofran Inj) 4 mg STK-MED ONCE IV ; Start 12/31/17 at 12:00; Stop 01/01/18 at 12:08; Status DC Propofol (Diprivan 200 Mg/20 ml Inj) 200 mg STK-MED ONCE IV ; Start 12/31/17 at 12:00; Stop 01/01/18 at 12:08; Status DC Propofol (Diprivan 200 Mg/20 ml Inj) 400 mg STK-MED ONCE .ROUTE ; Start at 13:58; Stop 01/02/18 at 13:59; Status DC A/P Problem List: (1) PAD (peripheral artery disease) ICD Code: I73.9 - Peripheral vascular disease, unspecified Status: Chronic (2) Diabetic nephropathy ICD Code: E11.21 - Diabetic nephropathy Status: Chronic (3) CKD (chronic kidney disease) stage V requiring chronic dialysis ICD Code: N18.6 - End stage renal disease; Z99.2 - Dependence on renal dialysis Status: Chronic (4) Dyslipidemia ICD Code: E78.5 - Dyslipidemia Status: Chronic (5) DM (diabetes mellitus) ICD Code: E11.9 - Type 2 diabetes mellitus without complications Status: Chronic (6) HTN (hypertension) ICD Code: I10 - Essential (primary) hypertension Status: Chronic Permanent Comment: Last Edited By: Jasmyne Bee on Jul 11, 2017 15:31 (7) PAD (peripheral artery disease) ICD Code: I73.9 - Peripheral vascular disease, unspecified Status: Chronic (8) Ischemic ulcer diabetic foot ICD Code: E11.621 - Type 2 diabetes mellitus with foot ulcer; L97.509 - Non- pressure chronic ulcer of other part of unspecified foot with unspecified severity Status: Acute (9) ESRD on hemodialysis ICD Code: N18.6 - End stage renal disease; Z99.2 - Dependence on renal dialysis Status: Chronic (10) COPD (chronic obstructive pulmonary disease) ICD Code: J44.9 - Chronic obstructive pulmonary disease, unspecified Status: Chronic (11) DKA (diabetic ketoacidoses) ICD Code: E13.10 - Other specified diabetes mellitus with ketoacidosis without coma Status: Acute (12) Encephalopathy acute ICD Code: G93.40 - Encephalopathy, unspecified Status: Acute (13) Osteomyelitis ICD Code: M86.9 - Osteomyelitis, unspecified Status: Acute Assessment and Plan 57-year-old man with 1. Acute toxic metabolic encephalopathy/Peripheral Neuropathy/Depression Resolved CT brain negative. 2. COPD/Tobacco dependence on Symbicort 160/4.5 2 puffs inhaled twice a day 3. Hypertension/Peripheral Artery Disease/Ischemic distal digits status post Left posterior tibial artery angioplasty 09/24/17 Dr Ortiz Amlodipine 5 mg daily and Lisinopril 10 mg daily 4. ESRD on Hemodialysis M/W/F, Nephrology specialist following Hyperkalemia-Resolved 5. Osteomyelitis of the left foot Left second toe amputation 07/11/17 Left Posterior tibial artery angioplasty 09/24/17 I and D Left foot 09/28/17 left foot transmetatarsal amputation 09/26/17 Dr. Judge Poor wound healing and dry gangrene as well as probable wet gangrene noted ID and podiatry ff Currently on Unasyn IV, status post Zosyn ID specialist and Vascular Surgery s/p bilateral angiogram with balloon angioplasty 12/31/17 AJAY negative for endocarditis 01/02/18 Possible left BKA to be determined by child health associate. IF concern poor wound healing of his right TMA site due to severe vacular disease. 6. Anemia of chronic disease 7. DKA resolved/DM II On Levemir 20 units every 12 hours STEMI on 12/29/17 [facility] without any stent placement PROPH: Heparin 5000 units subcutaneous every 12 hours for DVT prophylaxis. Protonix 40 mg by mouth daily Discharge Planning Patient is on IV antibiotics and may need a left BKA. Problem Qualifiers (1) DKA (diabetic ketoacidoses): (2) Osteomyelitis: Qualified Codes: M86.8X7 - Other osteomyelitis, ankle and foot Chetna Moore MD Jan 06, 2018 11:03
[2018-01-06 12:00] VITALS: BP 138/68; PULSE 68; RESP 14; TEMP 97.7; O2SAT 98
[2018-01-06 16:00] VITALS: BP 134/61; PULSE 76; RESP 15; TEMP 97.7; O2SAT 95
[2018-01-06] MEDS: AMPICILLIN-SULBACTAM INJ 3 GM in SODIUM CHLORIDE 0.9% INJ 100 ML IV SCH (18:25)
[2018-01-06 20:00] VITALS: BP 139/68; PULSE 75; RESP 16; TEMP 97.9; O2SAT 97
[2018-01-07] VITALS: BP 154/75; PULSE 74; RESP 16; TEMP 97.4; O2SAT 99
[2018-01-07] MEDS: METOPROLOL TARTRATE 25 MG TAB PO SCH ×3 (01:14→16:42)
[2018-01-07] MEDS: LOW DOSE INSULIN NOVOLOG SUPPLEMENTAL SCALE SQ SCH ×6 (01:15→20:39)
[2018-01-07] MEDS: CHLORHEXIDINE GLUCONATE 2 % 1 PACK (2 CLOTHS) TOP SCH (04:00)
[2018-01-07 08:00] VITALS: BP 123/58; PULSE 72; RESP 17; TEMP 97.8; O2SAT 100
[2018-01-07] MEDS: SEVELAMER CARBONATE 800 MG TAB PO SCH ×3 (08:00→16:42)
[2018-01-07] MEDS: INSULIN DETEMIR 100 UNITS/ML VIAL SQ SCH ×2 (09:00→20:39)
[2018-01-07] MEDS: BUDESONIDE-FORMOTEROL 160/4.5 MCG INHALER INH SCH ×2 (09:00→20:40)
[2018-01-07] MEDS: EPOETIN ALFA 10,000 UNITS/ML VIAL IV PUSH PRN (11:14)
--- NOTE | 2018-01-07 11:15 | HHI.NPPN ---
Subjective General Problems: Anemia, Diabetes Renal Failure: Chronic, End Stage Renal Disease Interval History Seen during dialysis. Wanting to know the plans, may be agreeable to BKA. (Jasmyne Bee) Review of Systems Musculoskeletal MS: Pain/Stiffness (Jasmyne Bee) Skin Skin: Ulcers Skin Remarks right great toe, left MFA skin changes, non healing (Jasmyne Bee) Objective Data Data Vital Signs Date Time Temp Pulse Resp B/P (MAP) Pulse Ox O2 Delivery O2 Flow Rate FiO2 01/07/18 08:00 97.8 72 17 123/58 (79) 100 01/07/18 00:00 97.4 74 16 154/75 (101) 99 01/06/18 20:00 97.9 75 16 139/68 (91) 97 01/06/18 16:00 97.7 76 15 134/61 (85) 95 01/06/18 12:00 97.7 68 14 138/68 (91) 98 (Jasmyne Bee) -: 01/04/18 0550 01/04/18 0550 Tubes & Lines Comment Ta right chest (Jasmyne Bee) Physical Exam General Appearance: Well Developed, Well Nourished, No Acute Distress, Comfortable (Jasmyne Bee) Eyes Eye Exam: Pupils Equal (Jasmyne Bee) Neck Neck Exam: Neck Supple (Jasmyne Bee) Pulmonary Resp Exam: Clear Bilaterally, Breath Sounds Equal (Jasmyne Bee) Cardiology CV Exam: Regular, Normal Sinus Rhythm (Jasmyne Bee) Gastrointestinal/Abdomen GI Exam: Soft, Non-Tender, Bowel Sounds Present (Jasmyne Bee) Musculoskeletal MS Exam: Joints Intact, Good Strength MS Remarks left midfoot amputation, no skin flap bone visible, dark edges with gangrene/eschar; brenda intact (Jasmyne Bee) Integumentary Skin Exam: Warm, Dry Skin Remarks see above right great toe with nail changes. ischemic tip of hand, R 1-3rd digits discolored/dark, radial pulse strong on right (Jasmyne Bee) Extremeties Extremities Exam: No Edema, Pedal Pulses Palpable Extremeties Remarks left AVF +thrill, bruit (Jasmyne Bee) Neurologic Neuro Exam: Alert, Awake, Oriented, Speech Clear, Moving All Extremities (Jasmyne Bee) Psychiatric Psych Exam: Appropriate Responses (Jasmyne Bee) Assessment/Plan Discussed Condition With: Patient Assessment Summary: Anemia of CKD, Hypertension, Diabetes Mellitus, End Stage Renal Disease Problem List: (1) ESRD (end stage renal disease) ICD Codes: N18.6 - End-stage renal disease Status: Resolved Plan: Continue HD on MWF. Seen during dialysis on a 2K, 350 BFR, goal 5L Using AVF left arm for HD He has existing HD arrangements in place for discharge purposes. Avoid IVF administration, gadolinium in contraindicated High protein diet ordered with protein supplements Repeat labs intermittently. (2) Osteomyelitis ICD Codes: M86.9 - Osteomyelitis, unspecified Status: Acute Plan: ID, podiatry, and vascular following On Unasyn IV s/p bilateral balloon angioplasty Possible L BKA if no improvement. Patient is in agreement at this time vs. follow up with vascular at discharge AJAY 01/02: No veg, mild MR and mild TR Unclear if we can remove the Ta; if antibiotics will be required at discharge consider leaving it in. ID assistance on this matter is appreciated. (3) PAD (peripheral artery disease) ICD Codes: I73.9 - Peripheral vascular disease, unspecified Status: Chronic Plan: See above Needs wound care to left foot/amputation site. (4) Bone metabolism disorder ICD Codes: E88.9 - Metabolic disorder, unspecified; M90.80 - Osteopathy in diseases classified elsewhere, unspecified site Status: Acute Plan: Phosphorus improved, On high dose Renvela with meals Advised binder compliance Repeat level intermittently (5) DKA (diabetic ketoacidoses) ICD Codes: E13.10 - Other specified diabetes mellitus with ketoacidosis without coma Status: Acute Plan: Labile blood sugar A1c 10.7 On Levemir Brittle DM 1 (6) HTN (hypertension) ICD Codes: I10 - Essential (primary) hypertension Status: Chronic Plan: Continue home medications, titrate as needed Permanent Comment: Last Edited By: Jasmyne Bee on Jul 11, 2017 15:31 (7) Anemia ICD Codes: D64.9 - Anemia, unspecified Plan: Epogen with dialysis (8) Hyperkalemia ICD Codes: E87.5 - Hyperkalemia Status: Acute Plan: Improved. Continue to monitor. (Jasmyne Bee) Plan patient was seen and examined. Patient wants to go to [place] to be with his daughter where he intends to have BKA. ID to comment if he needs continued antibiotic therapy. (Maurice Schultz MD) Problem Qualifiers (1) Osteomyelitis: Qualified Codes: M86.8X7 - Other osteomyelitis, ankle and foot (2) DKA (diabetic ketoacidoses): (3) Anemia: Qualified Codes: N18.6 - End stage renal disease; D63.1 - Anemia in chronic kidney disease; Z99.2 - Dependence on renal dialysis Jasmyne Bee Jan 07, 2018 11:15 Maurice Schultz MD Jan 08, 2018 15:26
[2018-01-07 12:00] VITALS: BP 140/65; PULSE 82; RESP 17; TEMP 97.8; O2SAT 99
[2018-01-07] MEDS: NITROGLYCERIN 2% OINT 1 GM PACKET TOPICAL SCH ×3 (12:10→16:42)
[2018-01-07] MEDS: DOCUSATE SODIUM 50 MG/SENNA 8.6 MG TAB PO SCH ×2 (12:10→20:39)
[2018-01-07] MEDS: DULoxetine HCl DR 30 MG CAP PO SCH (12:10)
[2018-01-07] MEDS: CHOLECALCIFEROL (VIT D3) 1000 UNIT TAB PO SCH (12:11)
[2018-01-07] MEDS: ASPIRIN 81 MG CHEW TAB CHEW SCH (12:11)
[2018-01-07] MEDS: SODIUM CHLORIDE 0.9% FLUSH 10 ML FLUSH IV FLUSH SCH ×2 (12:11→20:40)
[2018-01-07] MEDS: PANTOPRAZOLE SOD 40 MG DELAYED RELEASE TAB PO SCH (12:11)
[2018-01-07] MEDS: amLODIPine BESYLATE 5 MG TAB PO SCH (12:12)
--- NOTE | 2018-01-07 13:30 | HHI.PR ---
Subjective Remarks Follow-up for infection Patient has no complaints. He is anxious to go home. Patient stated if needed he will get a BKA but he does want to try to salvage his limb. Objective Vitals Vital Signs Date Time Temp Pulse Resp B/P (MAP) Pulse Ox O2 Delivery O2 Flow Rate FiO2 01/07/18 12:00 97.8 82 17 140/65 (90) 99 01/07/18 08:00 97.8 72 17 123/58 (79) 100 01/07/18 00:00 97.4 74 16 154/75 (101) 99 01/06/18 20:00 97.9 75 16 139/68 (91) 97 01/06/18 16:00 97.7 76 15 134/61 (85) 95 I/O 01/06/18 01/06/18 01/06/18 01/07/18 01/07/18 01/07/18 07:00 15:00 23:00 07:00 15:00 23:00 Intake Total 540 ml Output Total 5000 ml Balance 540 ml -5000 ml Intake Oral 540 ml Hemodialysis 5000 ml # Voids 0 0 0 # Bowel Movements 1 Result Diagram: 01/04/18 0550 01/04/18 0550 Objective Remarks GENERAL: in NAD CARDIOVASCULAR: Regular rate and rhythm without murmurs, gallops, or rubs. RESPIRATORY: Breath sounds equal bilaterally. No accessory muscle use. GASTROINTESTINAL: Abdomen soft, non-tender, nondistended. MUSCULOSKELETAL: left foot all toes amputated with necrotic tissue. right TMA poor wound healing. Medications and IVs Current Medications Sodium Chloride (NS Flush) 2 ml UNSCH PRN IVF FLUSH AFTER USING IV ACCESS; Start 12/25/17 at 20:30; Stop 12/26/17 at 07:38; Status DC Calcium Gluconate (Calcium Gluconate Inj) 2 gm ONCE ONCE SLOW IVP Last administered on 12/25/17at 21:18; Start 12/25/17 at 21:00; Stop 12/25/17 at 21:01 ; Status DC Insulin Human Regular (NovoLIN R INJ) 10 units ONCE ONCE IV PUSH Last administered on 12/25/17at 21:18; Start 12/25/17 at 21:00; Stop 12/25/17 at 21:01 ; Status DC Sodium Bicarbonate (Sodium Bicarbonate 8.4% Inj) 50 meq ONCE ONCE SLOW IVP Last administered on 12/25/17at 21:18; Start 12/25/17 at 21:00; Stop 12/25/17 at 21:01; Status DC Albuterol Sulfate (Albuterol Concentrated Neb) 10 mg ONCE ONCE INH Last administered on 12/25/17at 21:14; Start 12/25/17 at 21:00; Stop 12/25/17 at 21:01 ; Status DC Sodium Polystyrene Sulfonate (Kayexalate Liq) 15 gm ONCE ONCE PO ; Start at 21:00; Stop 12/25/17 at 21:01; Status DC Sodium Bicarbonate (Sodium Bicarbonate 8.4% Inj) 50 meq ONCE ONCE SLOW IVP Last administered on 12/25/17at 21:30; Start 12/25/17 at 21:30; Stop 12/25/17 at 21:31; Status DC Insulin Human Regular 100 units/ Sodium Chloride 100 ml @ 6.5 mls/hr TITRATE PRN IV Blood Sugar Management Last administered on 12/25/17at 22:40; Start at 21:30; Stop 12/26/17 at 12:45; Status DC Sodium Chloride 500 ml @ 500 mls/hr BOLUS ONCE IV Last administered on at 00:30; Start 12/26/17 at 00:30; Stop 12/26/17 at 01:29; Status DC Sodium Chloride (NS Flush) 2 ml UNSCH PRN IV FLUSH FLUSH AFTER USING IV ACCESS ; Start 12/26/17 at 01:45 Sodium Chloride (NS Flush) 2 ml BID IV FLUSH Last administered on 01/07/18at 12: 11; Start 12/26/17 at 09:00 Pantoprazole Sodium (Protonix) 40 mg DAILY PO Last administered on 01/07/18at 12 :11; Start 12/26/17 at 09:00 Ondansetron HCl (Zofran Inj) 4 mg Q6H PRN IV PUSH NAUSEA OR VOMITING; Start at 01:45 Albuterol Sulfate (Albuterol Neb) 2.5 mg Q2HR NEB PRN INH SOB/WHEEZING; Start 12/26/17 at 01:45; Stop 12/26/17 at 07:19; Status DC Miscellaneous Information 1 [id number] XX Last administered on 12/26/17at 01:45; Start 12/26/17 at 01:45 Chlorhexidine Gluconate (Chlorhexidine 2% Cloth) Taper DAILY@04 TOP Last administered on 01/03/18at 04:00; Start 12/26/17 at 04:00; Stop 12/22/18 at 03:59 Chlorhexidine Gluconate (Chlorhexidine 2% Cloth) 3 pack UNSCH PRN TOP HYGIENIC CARE; Start 12/26/17 at 01:45 Senna/Docusate Sodium (Odette-Colace) 1 tab BID PO Last administered on at 12:10; Start 12/26/17 at 09:00 Magnesium Hydroxide (Milk Of Magnesia Liq) 30 ml Q12H PRN PO Mild constipation ; Start 12/26/17 at 01:45 Sennosides (Senokot) 17.2 mg Q12H PRN PO Moderate constipation; Start 12/26/17 at 01:45 Bisacodyl (Dulcolax Supp) 10 mg DAILY PRN RECTAL SEVERE CONSITIPATION; Start at 01:45 Lactulose (Lactulose Liq) 30 ml DAILY PRN PO SEVERE CONSITIPATION; Start at 01:45 Ciprofloxacin (Cipro) 500 mg Q12HR PO ; Start 12/26/17 at 09:00; Stop 12/26/17 at 09:00; Status DC Dextrose 1,000 ml @ 40 mls/hr Q24H IV Last administered on 12/26/17at 02:09; Start 12/26/17 at 02:15; Stop 12/26/17 at 14:25; Status DC Fluconazole (Diflucan) 200 mg DAILY PO Last administered on 12/27/17at 08:09; Start 12/26/17 at 09:00; Stop 12/27/17 at 10:45; Status DC Piperacillin Sod/ Tazobactam Sod 50 ml @ 100 mls/hr Q8H IV Last administered on 12/26/17at 04:28; Start 12/26/17 at 02:00; Stop 12/26/17 at 12:09; Status DC Budesonide/ Formoterol Fumarate (Symbicort 160-4.5 Mcg Inh) 1 puff Q12HR INH Last administered on 01/07/18at 09:00; Start 12/26/17 at 09:00 Cholecalciferol (Vitamin D3) 1,000 units DAILY PO Last administered on at 12:11; Start 12/26/17 at 09:00 Amlodipine Besylate (Norvasc) 5 mg DAILY PO Last administered on 01/07/18at 12: 12; Start 12/26/17 at 09:00 Dextrose (D50w (Syr) Inj) 50 ml STK-MED ONCE .ROUTE Last administered on at 07:03; Start 12/26/17 at 06:59; Stop 12/26/17 at 07:00; Status DC Duloxetine HCl (Cymbalta Dr) 30 mg DAILY PO Last administered on 01/07/18at 12: 10; Start 12/26/17 at 09:00 Albuterol Sulfate (Albuterol Neb) 2.5 mg Q2HR NEB PRN NEB WHEEZING; Start 12/26 at 07:15 Dextrose (D50w (Syr) Inj) 50 ml ONCE ONCE IV ; Start 12/26/17 at 07:30; Stop at 07:31; Status DC Heparin Sodium (Porcine) (Heparin Inj) 5,000 units Q12HR SQ Last administered on 12/28/17at 20:04; Start 12/26/17 at 09:00; Stop 12/29/17 at 09:52; Status DC Piperacillin Sod/ Tazobactam Sod 50 ml @ 100 mls/hr Q8H IV Last administered on 12/31/17at 11:19; Start 12/26/17 at 12:00; Stop 12/31/17 at 13:25; Status DC Dextrose (D50w (Vial) Inj) 50 ml UNSCH PRN IV PUSH HYPOGLYCEMIA - SEE COMMENTS Last administered on 01/04/18at 07:41; Start 12/26/17 at 13:00 Glucagon (Glucagon Inj) 1 mg UNSCH PRN OTHER HYPOGLYCEMIA-SEE COMMENTS; Start 12/26/17 at 13:00 Insulin Aspart (NovoLOG SUPPLEMENTAL SCALE) 1 Q4HR SQ Last administered on 01/06at 12:00; Start 12/26/17 at 12:47 Sodium Chloride 1,000 ml @ 0 mls/hr Q0M PRN OTHER For Prime & Rinse Back; Start 12/26/17 at 13:45 Heparin Sodium (Porcine) (Heparin Inj) 8,000 units UNSCH PRN IV FLUSH WITH DIALYSIS; Start 12/26/17 at 13:45 Sodium Chloride 1,000 ml @ 200 mls/hr Q5H PRN IV WITH DIALYSIS; Start 12/26/17 at 13:45 Sodium Chloride 1,000 ml @ 0 mls/hr Q0M PRN OTHER WITH DIALYSIS; Start at 13:45 Mannitol (Mannitol Inj) 12.5 gm UNSCH PRN IV WITH DIALYSIS; Start 12/26/17 at 13:45 Albumin Human 100 ml @ 60 mls/hr UNSCH PRN IV WITH DIALYSIS; Start 12/26/17 at 13:45 Sodium Chloride (NS Flush) 5 ml UNSCH PRN IV FLUSH WITH DIALYSIS; Start at 13:45 Heparin Sodium (Porcine) (Heparin Inj) UNSCH PRN .XX WITH DIALYSIS; Start at 13:45 Gentamicin Sulfate (Gentamicin Inj) 20 mg UNSCH PRN OTHER WITH DIALYSIS; Start 12/26/17 at 13:45 Ondansetron HCl (Zofran Inj) 4 mg UNSCH PRN IV PUSH WITH DIALYSIS; Start at 13:45 Acetaminophen (Tylenol) 650 mg UNSCH PRN PO for headach, pain, temp > 101F; Start 12/26/17 at 13:45 Diphenhydramine HCl (Benadryl) 25 mg UNSCH PRN PO for hives/itching/anaphylaxis ; Start 12/26/17 at 13:45 Nitroglycerin (Nitrostat Sl) 0.4 mg UNSCH PRN SL CHEST PAIN Last administered on 12/29/17at 08:05; Start 12/26/17 at 13:45 Clonidine (Catapres) 0.1 mg UNSCH PRN PO for BP > 180/100 X 2 readings; Start 12/26/17 at 13:45 Epoetin Marco A (Epogen Inj) 10,000 units UNSCH PRN IV PUSH WITH DIALYSIS Last administered on 01/07/18at 11:14; Start 12/26/17 at 13:45 Gelatin (Gelfoam 12 Mm/7 Mm Top) 1 foam UNSCH PRN TOP SEE LABEL COMMENTS Last administered on 12/28/17at 15:42; Start 12/26/17 at 13:45 Aspirin (Aspirin Chew) 81 mg DAILY CHEW Last administered on 01/07/18 12:11; Start 12/26/17 at 15:00 Morphine Sulfate (Morphine Inj) 2 mg Q3H PRN IM pain 5-10; Start 12/26/17 at 14 :30; Stop 12/26/17 at 17:01; Status DC Sevelamer Carbonate (Renvela) 1,600 mg TIDAC PO Last administered on 12/27/17 08:09; Start 12/26/17 at 17:00; Stop 12/27/17 at 12:40; Status DC Morphine Sulfate (Morphine Inj) 2 mg Q3H PRN IV pain 5-10 Last administered on 12/31/17 04:45; Start 12/26/17 at 17:15 Insulin Detemir (Levemir Inj) 3 units Q12HR SQ Last administered on 12/27/17 20:56; Start 12/27/17 at 12:15; Stop 12/29/17 at 13:59; Status DC Acetaminophen/ Hydrocodone Bitart ([place] 7.5-325 Mg) 1 tab Q4H PRN PO pain 1- 4 Last administered on 01/06/18 18:25; Start 12/27/17 at 12:15 Sevelamer Carbonate (Renvela) 2,400 mg TIDAC PO Last administered on 01/07/18 12:10; Start 12/27/17 at 17:00 Metoprolol Tartrate (Lopressor) 25 mg Q8H PO Last administered on 01/07/18 01: 14; Start 12/29/17 at 08:00 Metoprolol Tartrate (Lopressor Inj) 2.5 mg ONCE PRN IV PUSH ANGINA Last administered on 12/29/17 08:16; Start 12/29/17 at 08:00; Stop 12/29/17 at 23:00 ; Status DC Nitroglycerin (Nitroglycerin 2% Oint) 1 inch Q8H TOPICAL Last administered on 12:10; Start 12/29/17 at 08:00 Ketorolac Tromethamine (Toradol Inj) 30 mg STAT ONCE IV PUSH Last administered on 12/29/17at 08:45; Start 12/29/17 at 08:45; Stop 12/29/17 at 08:46 ; Status DC Insulin Human Regular (NovoLIN R INJ) 10 units NOW ONCE IV PUSH Last administered on 12/29/17at 08:30; Start 12/29/17 at 08:45; Stop 12/29/17 at 08:46 ; Status DC Heparin Sodium/ Sodium Chloride 2,000 ml @ As Directed STK-MED ONCE IV FLUSH Last administered on 12/29/17at 08:50; Start 12/29/17 at 08:50; Stop 12/29/17 at 08:51; Status DC Midazolam HCl (Versed Inj) 2 mg STK-MED ONCE .ROUTE ; Start 12/29/17 at 08:50; Stop 12/29/17 at 08:51; Status DC Fentanyl Citrate (fentaNYL INJ) 100 mcg STK-MED ONCE .ROUTE Last administered on 12/29/17at 09:09; Start 12/29/17 at 08:50; Stop 12/29/17 at 08:51; Status DC Nitroglycerin 0 ml @ As Directed STK-MED ONCE .ROUTE ; Start 12/29/17 at 08:50; Stop 12/29/17 at 08:51; Status DC Sodium Chloride 1,000 ml @ 30 mls/hr Q24H IV ; Start 12/29/17 at 08:57; Stop at 09:49; Status DC Aspirin (Aspirin) 325 mg LASER SET UP OPERATOR PO ; Start 12/29/17 at 09:00; Stop 01/02/18 at 08:59; Status DC Fentanyl Citrate (fentaNYL INJ) 50 mcg LASER SET UP OPERATOR IV PUSH ; Start 12/29/17 at 09: 00; Stop 01/02/18 at 08:59; Status DC Midazolam HCl (Versed Inj) 1 mg LASER SET UP OPERATOR IV PUSH ; Start 12/29/17 at 09:00; Stop 01/02/18 at 08:59; Status DC Sodium Chloride (NS Flush) 2 ml BID IV FLUSH ; Start 12/29/17 at 21:00; Stop at 21:00; Status DC Sodium Chloride (NS Flush) 2 ml UNSCH PRN IV FLUSH FLUSH AFTER USING IV ACCESS ; Start 12/29/17 at 09:45; Stop 12/29/17 at 09:52; Status DC Miscellaneous Information 1 ONCE ONCE XX ; Start 12/29/17 at 09:45; Stop at 09:52; Status DC Atropine Sulfate (Atropine Inj) 0.5 mg UNSCH PRN IV PUSH VAGAL REPONSE; Start 12/29/17 at 09:45 Sodium Chloride 250 ml @ 500 mls/hr ONCE PRN IV VAGAL REPONSE; Start 12/29/17 at 09:45; Stop 12/30/17 at 09:44; Status DC Bacitracin (Bacitracin Oint Packet) 0.9 gm ONCE ONCE TOP ; Start 12/29/17 at 09 :45; Stop 12/29/17 at 09:50; Status DC Ketorolac Tromethamine (Toradol Inj) 15 mg Q8HR PRN IM CHEST PAIN; Start at 10:00; Stop 01/03/18 at 09:59; Status DC Insulin Human Regular (NovoLIN R INJ) 20 units NOW ONCE IV PUSH ; Start at 12:00; Stop 12/29/17 at 12:01; Status DC Insulin Human Regular (NovoLIN R INJ) 20 units NOW ONCE SQ Last administered on 12/29/17at 12:00; Start 12/29/17 at 12:45; Stop 12/29/17 at 12:46; Status DC Insulin Detemir (Levemir Inj) 10 units Q12HR SQ ; Start 12/29/17 at 21:00; Stop 12/30/17 at 07:55; Status DC Insulin Detemir (Levemir Inj) 20 units Q12HR SQ Last administered on 01/07/18at 09:00; Start 12/30/17 at 09:00 Lactated Ringer's 1,000 ml @ 30 mls/hr Q24H PRN IV SEE LABEL COMMENTS; Start at 00:45; Stop 01/03/18 at 00:44; Status DC Sodium Chloride 500 ml @ 30 mls/hr [id number] PRN IV SEE LABEL COMMENTS; Start at 00:45; Stop 01/03/18 at 00:44; Status DC Povidone Iodine (Betadine 5% Antisepsis Kit) 1 applic LASER SET UP OPERATOR PRN EACH NARE SEE LABEL COMMENTS; Start 12/31/17 at 00:45; Stop 01/03/18 at 00:44; Status DC Chlorhexidine Gluconate (Chlorhexidine 2% Cloth) 3 pack LASER SET UP OPERATOR PRN TOPICAL SEE LABEL COMMENTS; Start 12/31/17 at 00:45; Stop 01/03/18 at 00:44; Status DC Protamine Sulfate (Protamine Sulfate Inj) 50 mg STK-MED ONCE .ROUTE ; Start at 06:54; Stop 12/31/17 at 06:55; Status DC Heparin Sodium (Porcine) (Heparin Inj) 10,000 units STK-MED ONCE .ROUTE ; Start 12/31/17 at 06:54; Stop 12/31/17 at 06:55; Status DC Vancomycin HCl (Vancomycin Inj) 1,000 mg STK-MED ONCE .ROUTE ; Start 12/31/17 at 06:54; Stop 12/31/17 at 06:55; Status DC Heparin Sodium/ Sodium Chloride 500 ml @ As Directed STK-MED ONCE .ROUTE Last administered on 12/31/17at 06:54; Start 12/31/17 at 06:54; Stop 12/31/17 at 06:55 ; Status DC Fentanyl Citrate (fentaNYL INJ) 250 mcg STK-MED ONCE .ROUTE ; Start 12/31/17 at 07:22; Stop 12/31/17 at 07:23; Status DC Iohexol 50 ml @ 0 mls/hr ONCE ONCE IV Last administered on 12/31/17at 08:00; Start 12/31/17 at 08:00; Stop 12/31/17 at 08:12; Status DC Heparin Sodium/ Sodium Chloride 500 ml @ As Directed STK-MED ONCE .ROUTE Last administered on 12/31/17at 08:52; Start 12/31/17 at 08:52; Stop 12/31/17 at 08:53 ; Status DC Miscellaneous Information ALL NURSING DEPARTME... UNSCH PRN .XX SEE LABEL COMMENTS; Start 12/31/17 at 10:15; Stop 01/01/18 at 10:14; Status DC Iohexol (OMNIPAQUE 350 INJ (Chronometer Assembler)) 50 ml STK-MED ONCE OTHER ; Start at 11:36; Stop 12/31/17 at 11:37; Status DC Ampicillin Sodium/ Sulbactam Sodium 3 gm/Sodium Chloride 100 ml @ 200 mls/hr Q24H IV Last administered on 01/06/18at 18:25; Start 12/31/17 at 18:00 Sodium Chloride 500 ml @ As Directed STK-MED ONCE IV ; Start 12/31/17 at 12:00 ; Stop 01/01/18 at 12:08; Status DC Lidocaine HCl (Xylocaine-Mpf 1% Inj) 5 ml STK-MED ONCE OTHER ; Start 12/31/17 at 12:00; Stop 01/01/18 at 12:08; Status DC Rocuronium [place] (Zemuron Inj) 50 mg STK-MED ONCE IV PUSH ; Start 12/31/17 at 12:00; Stop 01/01/18 at 12:08; Status DC Neostigmine Methylsulfate (Prostigmine Inj) 5 mg STK-MED ONCE IV PUSH ; Start at 12:00; Stop 01/01/18 at 12:08; Status DC Glycopyrrolate (Robinul Inj) 1 mg STK-MED ONCE IV PUSH ; Start 12/31/17 at 12:00 ; Stop 01/01/18 at 12:08; Status DC Phenylephrine HCl (Neosynephrine/ NS 1000 Mcg/10ml Syr) 2,000 mcg STK-MED ONCE IV ; Start 12/31/17 at 12:00; Stop 01/01/18 at 12:08; Status DC Ephedrine Sulfate (ePHEDrine/NS 25 MG/5 ML SYR) 25 mg STK-MED ONCE IV ; Start at 12:00; Stop 01/01/18 at 12:08; Status DC Ondansetron HCl (Zofran Inj) 4 mg STK-MED ONCE IV ; Start 12/31/17 at 12:00; Stop 01/01/18 at 12:08; Status DC Propofol (Diprivan 200 Mg/20 ml Inj) 200 mg STK-MED ONCE IV ; Start 12/31/17 at 12:00; Stop 01/01/18 at 12:08; Status DC Propofol (Diprivan 200 Mg/20 ml Inj) 400 mg STK-MED ONCE .ROUTE ; Start at 13:58; Stop 01/02/18 at 13:59; Status DC A/P Problem List: (1) PAD (peripheral artery disease) ICD Code: I73.9 - Peripheral vascular disease, unspecified Status: Chronic (2) Diabetic nephropathy ICD Code: E11.21 - Diabetic nephropathy Status: Chronic (3) CKD (chronic kidney disease) stage V requiring chronic dialysis ICD Code: N18.6 - End stage renal disease; Z99.2 - Dependence on renal dialysis Status: Chronic (4) Dyslipidemia ICD Code: E78.5 - Dyslipidemia Status: Chronic (5) DM (diabetes mellitus) ICD Code: E11.9 - Type 2 diabetes mellitus without complications Status: Chronic (6) HTN (hypertension) ICD Code: I10 - Essential (primary) hypertension Status: Chronic Permanent Comment: Last Edited By: Jasmyne Bee on Jul 11, 2017 15:31 (7) PAD (peripheral artery disease) ICD Code: I73.9 - Peripheral vascular disease, unspecified Status: Chronic (8) Ischemic ulcer diabetic foot ICD Code: E11.621 - Type 2 diabetes mellitus with foot ulcer; L97.509 - Non- pressure chronic ulcer of other part of unspecified foot with unspecified severity Status: Acute (9) ESRD on hemodialysis ICD Code: N18.6 - End stage renal disease; Z99.2 - Dependence on renal dialysis Status: Chronic (10) COPD (chronic obstructive pulmonary disease) ICD Code: J44.9 - Chronic obstructive pulmonary disease, unspecified Status: Chronic (11) DKA (diabetic ketoacidoses) ICD Code: E13.10 - Other specified diabetes mellitus with ketoacidosis without coma Status: Acute (12) Encephalopathy acute ICD Code: G93.40 - Encephalopathy, unspecified Status: Acute (13) Osteomyelitis ICD Code: M86.9 - Osteomyelitis, unspecified Status: Acute Assessment and Plan 57-year-old man with 1. Acute toxic metabolic encephalopathy/Peripheral Neuropathy/Depression Resolved CT brain negative. 2. COPD/Tobacco dependence on Symbicort 160/4.5 2 puffs inhaled twice a day 3. Hypertension/Peripheral Artery Disease/Ischemic distal digits status post Left posterior tibial artery angioplasty 09/24/17 Dr Ortiz Amlodipine 5 mg daily and Lisinopril 10 mg daily 4. ESRD on Hemodialysis M/W/F, Nephrology specialist following 5. Osteomyelitis of the left foot Left second toe amputation 07/11/17 Left Posterior tibial artery angioplasty 09/24/17 I and D Left foot 09/28/17 left foot transmetatarsal amputation 09/26/17 Dr. Judge Poor wound healing and dry gangrene as well as probable wet gangrene noted ID and podiatry ff Currently on Unasyn IV, status post Zosyn ID specialist and Vascular Surgery s/p bilateral angiogram with balloon angioplasty 12/31/17 AJAY negative for endocarditis 01/02/18 Possible left BKA to be determined by wet pour mixer. ID concern poor wound healing of his right TMA site due to severe vacular disease. 6. Anemia of chronic disease Stable. 7. DKA resolved/DM II On Levemir 20 units every 12 hours 8. STEMI on 12/29/17 [facility] without any stent placement PROPH: Heparin 5000 units subcutaneous every 12 hours for DVT prophylaxis. Protonix 40 mg by mouth daily Discharge Planning Patient is on IV antibiotics and may need a left BKA. Problem Qualifiers (1) DKA (diabetic ketoacidoses): (2) Osteomyelitis: Qualified Codes: M86.8X7 - Other osteomyelitis, ankle and foot Chetna Moore MD Jan 07, 2018 13:30
[2018-01-07 16:00] VITALS: BP 152/71; PULSE 83; RESP 17; TEMP 98.1; O2SAT 99
[2018-01-07] MEDS: AMPICILLIN-SULBACTAM INJ 3 GM in SODIUM CHLORIDE 0.9% INJ 100 ML IV SCH (16:42)
[2018-01-07 20:00] VITALS: BP 141/67; PULSE 78; RESP 18; TEMP 98.5; O2SAT 100
[2018-01-08] VITALS: BP 132/65; PULSE 79; RESP 20; TEMP 98.6; O2SAT 100
[2018-01-08] MEDS: METOPROLOL TARTRATE 25 MG TAB PO SCH ×3 (00:26→15:11)
[2018-01-08] MEDS: NITROGLYCERIN 2% OINT 1 GM PACKET TOPICAL SCH ×3 (00:27→15:11)
[2018-01-08] MEDS: LOW DOSE INSULIN NOVOLOG SUPPLEMENTAL SCALE SQ SCH ×6 (04:00→22:46)
[2018-01-08] MEDS: CHLORHEXIDINE GLUCONATE 2 % 1 PACK (2 CLOTHS) TOP SCH (04:00)
[2018-01-08] MEDS: DEXTROSE 50% IN WATER 50 ML VIAL(D50) IV PUSH PRN ×2 (04:54→05:42)
--- NOTE | 2018-01-08 07:33 | PD.VS.PN ---
Subjective Subjective/Hospital Course Pt well known to me with PAD and ESRD. Has nonhealing L TMA from OSH No odor and no doesn't endorse pain Objective Vitals/I&O Date Time Temp Pulse Resp B/P (MAP) Pulse Ox O2 Delivery O2 Flow Rate FiO2 01/08/18 00:00 98.6 79 20 132/65 (87) 100 01/07/18 20:00 98.5 78 18 141/67 (91) 100 01/07/18 16:00 98.1 83 17 152/71 (98) 99 01/07/18 12:00 97.8 82 17 140/65 (90) 99 01/07/18 08:00 97.8 72 17 123/58 (79) 100 01/08/18 01/08/18 01/08/18 07:00 15:00 23:00 Intake Total 360 ml Balance 360 ml Physical Exam L TMA dry and no odor. Appears overall ischemic Laboratory Laboratory Tests Test 01/08/18 05:54 Random Glucose 167 Date/Time Source Procedure Growth Status 12/26/17 04:45 Blood Peripheral Aerobic Blood Culture - Final NO GROWTH IN 5 DAYS Complete 12/26/17 04:45 Blood Peripheral Anaerobic Blood Culture - Final NO GROWTH IN 5 DAYS Complete Assessment and Plan Assessment: (1) PAD (peripheral artery disease) Status: Chronic Plan Pt w/ B LE ischemia and digital mild ischemia 1. Will need L BKA but can be done as outpatient. No urgency. 2. Can f/u in 2 weeks with ABIs and WBIs. I will arrange. Randy Ortiz MD FACS RPVI director independent [facility] - Heart and Vascular Surgery at [facility] [phone] Discharge Planning D/C planning w/ out pt f/u Randy Ortiz MD Jan 08, 2018 07:33
[2018-01-08 08:00] VITALS: BP 141/63; PULSE 68; RESP 19; TEMP 97.8; O2SAT 96
[2018-01-08] MEDS: INSULIN DETEMIR 100 UNITS/ML VIAL SQ SCH ×2 (08:22→22:47)
[2018-01-08] MEDS: DOCUSATE SODIUM 50 MG/SENNA 8.6 MG TAB PO SCH ×2 (08:22→22:44)
[2018-01-08] MEDS: ASPIRIN 81 MG CHEW TAB CHEW SCH (08:23)
[2018-01-08] MEDS: PANTOPRAZOLE SOD 40 MG DELAYED RELEASE TAB PO SCH (08:23)
[2018-01-08] MEDS: CHOLECALCIFEROL (VIT D3) 1000 UNIT TAB PO SCH (08:23)
[2018-01-08] MEDS: DULoxetine HCl DR 30 MG CAP PO SCH (08:23)
[2018-01-08] MEDS: SODIUM CHLORIDE 0.9% FLUSH 10 ML FLUSH IV FLUSH SCH ×2 (08:24→22:45)
[2018-01-08] MEDS: amLODIPine BESYLATE 5 MG TAB PO SCH (08:24)
[2018-01-08] MEDS: BUDESONIDE-FORMOTEROL 160/4.5 MCG INHALER INH SCH ×2 (08:24→22:45)
[2018-01-08] MEDS: SEVELAMER CARBONATE 800 MG TAB PO SCH ×3 (08:27→15:10)
--- NOTE | 2018-01-08 10:59 | HHI.PR ---
Addendum to Inpatient Note Addendum Reason: Additional Documentation Additional Information Patient known to she will see patient for continuity of care. Noelle Navarro MD Jan 08, 2018 10:59
--- NOTE | 2018-01-08 11:04 | HHI.NPPN ---
Subjective General Problems: Anemia, Diabetes Renal Failure: Chronic, End Stage Renal Disease Interval History Resting. He is inquiring about discharge. Dialyzed without incident yesterday. (Jasmyne Bee) Review of Systems Musculoskeletal MS: Pain/Stiffness (Jasmyne Bee) Skin Skin: Ulcers Skin Remarks right great toe, left MFA skin changes, non healing (Jasmyne Bee) Objective Data Data 01/08/18 01/09/18 19:00 07:00 Intake Total 120 ml Balance 120 ml Intake Oral 120 ml Vital Signs Date Time Temp Pulse Resp B/P (MAP) Pulse Ox O2 Delivery O2 Flow Rate FiO2 01/08/18 08:00 97.8 68 19 141/63 (89) 96 01/08/18 00:00 98.6 79 20 132/65 (87) 100 01/07/18 20:00 98.5 78 18 141/67 (91) 100 01/07/18 16:00 98.1 83 17 152/71 (98) 99 01/07/18 12:00 97.8 82 17 140/65 (90) 99 (Jasmyne Bee) -: 01/04/18 0550 01/08/18 0554 Tubes & Lines Comment Ta right chest (Jasmyne Bee) Physical Exam General Appearance: Well Developed, Well Nourished, No Acute Distress, Comfortable, Sleeping (Jasmyne Bee) Eyes Eye Exam: Pupils Equal (Jasmyne Bee) Neck Neck Exam: Neck Supple (Jasmyne Bee) Pulmonary Resp Exam: Clear Bilaterally, Breath Sounds Equal (Jasmyne Bee) Cardiology CV Exam: Regular, Normal Sinus Rhythm (Jasmyne Bee) Gastrointestinal/Abdomen GI Exam: Soft, Non-Tender, Bowel Sounds Present (Jasmyne Bee) Musculoskeletal MS Exam: Joints Intact, Good Strength MS Remarks left midfoot amputation, no skin flap bone visible, dark edges with gangrene/eschar; brenda intact (Jasmyne Bee) Integumentary Skin Exam: Warm, Dry Skin Remarks see above right great toe with nail changes. ischemic tip of hand, R 1-3rd digits discolored/dark, radial pulse strong on right (Jasmyne Bee) Extremeties Extremities Exam: No Edema, Pedal Pulses Palpable Extremeties Remarks left AVF +thrill, bruit (Jasmyne Bee) Neurologic Neuro Exam: Alert, Awake, Oriented, Speech Clear, Moving All Extremities (Jasmyne Bee) Psychiatric Psych Exam: Appropriate Responses (Jasmyne Bee) Assessment/Plan Discussed Condition With: Patient Assessment Summary: Anemia of CKD, Hypertension, Diabetes Mellitus, End Stage Renal Disease Problem List: (1) ESRD (end stage renal disease) ICD Codes: N18.6 - End-stage renal disease Status: Resolved Plan: Continue HD on MWF, due tomorrow. He has existing HD arrangements in place for discharge purposes. Using AVF left arm for HD Avoid IVF administration, gadolinium in contraindicated High protein diet ordered with protein supplements Repeat labs intermittently. (2) Osteomyelitis ICD Codes: M86.9 - Osteomyelitis, unspecified Status: Acute Plan: ID, podiatry, and vascular following On Unasyn IV, which will need to be continued at discharge s/p bilateral balloon angioplasty Possible L BKA if no improvement. Has appt with vascular for ABIs and WBIs in 2 weeks. AJAY 01/02: No veg, mild MR and mild TR Unclear if we can remove the Ta; if antibiotics will be required at discharge consider leaving it in. ID assistance on this matter is appreciated. (3) PAD (peripheral artery disease) ICD Codes: I73.9 - Peripheral vascular disease, unspecified Status: Chronic Plan: See above Needs wound care to left foot/amputation site. (4) Bone metabolism disorder ICD Codes: E88.9 - Metabolic disorder, unspecified; M90.80 - Osteopathy in diseases classified elsewhere, unspecified site Status: Acute Plan: Continue high dose Renvela with meals Advised binder compliance Repeat level intermittently (5) DKA (diabetic ketoacidoses) ICD Codes: E13.10 - Other specified diabetes mellitus with ketoacidosis without coma Status: Acute Plan: Labile blood sugar A1c 10.7 On Levemir Brittle DM 1 (6) HTN (hypertension) ICD Codes: I10 - Essential (primary) hypertension Status: Chronic Plan: Continue home medications, titrate as needed Permanent Comment: Last Edited By: Jasmyne Bee on Jul 11, 2017 15:31 (7) Anemia ICD Codes: D64.9 - Anemia, unspecified Plan: Epogen with dialysis (8) Hyperkalemia ICD Codes: E87.5 - Hyperkalemia Status: Acute Plan: Improved. Continue to monitor. Plan cleared for discharge from renal standpoint (Jasmyne Bee) Plan patient was seen and examined. Agree with above assessment and plan. (Maurice Schultz MD) Problem Qualifiers (1) Osteomyelitis: Qualified Codes: M86.8X7 - Other osteomyelitis, ankle and foot (2) DKA (diabetic ketoacidoses): (3) Anemia: Qualified Codes: N18.6 - End stage renal disease; D63.1 - Anemia in chronic kidney disease; Z99.2 - Dependence on renal dialysis Jasmyne Bee Jan 08, 2018 11:04 Maurice Schultz MD Jan 08, 2018 15:36
--- NOTE | 2018-01-08 11:58 | HHI.PR ---
Subjective Remarks in no acute distress. pain is controlled. no fever. blood sugar trend noted. d/w the RN. Objective Vitals Vital Signs Date Time Temp Pulse Resp B/P (MAP) Pulse Ox O2 Delivery O2 Flow Rate FiO2 01/08/18 08:00 97.8 68 19 141/63 (89) 96 01/08/18 00:00 98.6 79 20 132/65 (87) 100 01/07/18 20:00 98.5 78 18 141/67 (91) 100 01/07/18 16:00 98.1 83 17 152/71 (98) 99 01/07/18 12:00 97.8 82 17 140/65 (90) 99 I/O 01/07/18 01/07/18 01/07/18 01/08/18 01/08/18 01/08/18 07:00 15:00 23:00 07:00 15:00 23:00 Intake Total 720 ml 360 ml 120 ml Output Total 5000 ml Balance -5000 ml 720 ml 360 ml 120 ml Intake Oral 720 ml 360 ml 120 ml Hemodialysis 5000 ml # Voids 0 0 0 # Bowel Movements 0 Result Diagram: 01/04/18 0550 01/08/18 0554 Imaging Last Impressions Foot X-Ray 12/26/17 0000 Signed Impressions: Service Date/Time: Tuesday, December 26, 2017 07:29 - CONCLUSION: 1. Findings concerning for osteomyelitis involving the tuft of the first toe. Phani Vasquez MD Head CT [id number] Signed Impressions: Service Date/Time: Monday, December 25, 2017 22:22 - CONCLUSION: No acute intracranial abnormality demonstrated. Eliu Ayala MD Chest X-Ray [id number] Signed Impressions: Service Date/Time: Monday, December 25, 2017 20:45 - CONCLUSION: No evidence of acute cardiopulmonary disease. Eliu Ayala MD Objective Remarks GENERAL: This is a well-nourished, well-developed patient, in no apparent distress. CARDIOVASCULAR: Regular rate and regular rhythm without murmurs, gallops, or rubs. RESPIRATORY: Clear to auscultation. Breath sounds equal bilaterally. No wheezes , rales, or rhonchi. GASTROINTESTINAL: Abdomen soft, non-tender, nondistended. Normal, active bowel sounds MUSCULOSKELETAL: gangrene of the left foot. NEURO: Alert & Oriented x4 to person, place, time, situation. Moves all ext x4 Medications and IVs Inpatient Medications Acetaminophen (Tylenol) 650 mg UNSCH PRN PO for headach, pain, temp > 101F; Start 12/26/17 at 13:45 Acetaminophen/ Hydrocodone Bitart ([place] 7.5-325 Mg) 1 tab Q4H PRN PO pain 1- 4 Last administered on 01/06/18at 18:25; Start 12/27/17 at 12:15 Albumin Human 100 ml @ 60 mls/hr UNSCH PRN IV WITH DIALYSIS; Start 12/26/17 at 13:45 Albuterol Sulfate (Albuterol Concentrated Neb) 10 mg ONCE ONCE INH Last administered on 12/25/17at 21:14; Start 12/25/17 at 21:00; Stop 12/25/17 at 21:01 ; Status DC Albuterol Sulfate (Albuterol Neb) 2.5 mg Q2HR NEB PRN NEB WHEEZING; Start 12/26 at 07:15 Amlodipine Besylate (Norvasc) 5 mg DAILY PO Last administered on 01/08/18at 08: 24; Start 12/26/17 at 09:00 Ampicillin Sodium/ Sulbactam Sodium 3 gm/Sodium Chloride 100 ml @ 200 mls/hr Q24H IV Last administered on 01/07/18at 16:42; Start 12/31/17 at 18:00 Aspirin (Aspirin Chew) 81 mg DAILY CHEW Last administered on 01/08/18at 08:23; Start 12/26/17 at 15:00 Aspirin (Aspirin) 325 mg TAPE TRANSFERRER PO ; Start 12/29/17 at 09:00; Stop 01/02/18 at 08:59; Status DC Atropine Sulfate (Atropine Inj) 0.5 mg UNSCH PRN IV PUSH VAGAL REPONSE; Start 12/29/17 at 09:45 Bacitracin (Bacitracin Oint Packet) 0.9 gm ONCE ONCE TOP ; Start 12/29/17 at 09 :45; Stop 12/29/17 at 09:50; Status DC Bisacodyl (Dulcolax Supp) 10 mg DAILY PRN RECTAL SEVERE CONSITIPATION; Start at 01:45 Budesonide/ Formoterol Fumarate (Symbicort 160-4.5 Mcg Inh) 1 puff Q12HR INH Last administered on 01/08/18at 08:24; Start 12/26/17 at 09:00 Calcium Gluconate (Calcium Gluconate Inj) 2 gm ONCE ONCE SLOW IVP Last administered on 12/25/17at 21:18; Start 12/25/17 at 21:00; Stop 12/25/17 at 21:01 ; Status DC Chlorhexidine Gluconate (Chlorhexidine 2% Cloth) 3 pack TAPE TRANSFERRER PRN TOPICAL SEE LABEL COMMENTS; Start 12/31/17 at 00:45; Stop 01/03/18 at 00:44; Status DC Cholecalciferol (Vitamin D3) 1,000 units DAILY PO Last administered on at 08:23; Start 12/26/17 at 09:00 Ciprofloxacin (Cipro) 500 mg Q12HR PO ; Start 12/26/17 at 09:00; Stop 12/26/17 at 09:00; Status DC Clonidine (Catapres) 0.1 mg UNSCH PRN PO for BP > 180/100 X 2 readings; Start 12/26/17 at 13:45 Dextrose (D50w (Syr) Inj) 50 ml ONCE ONCE IV ; Start 12/26/17 at 07:30; Stop at 07:31; Status DC Dextrose (D50w (Vial) Inj) 50 ml UNSCH PRN IV PUSH HYPOGLYCEMIA - SEE COMMENTS Last administered on 01/08/18at 05:42; Start 12/26/17 at 13:00 Diphenhydramine HCl (Benadryl) 25 mg UNSCH PRN PO for hives/itching/anaphylaxis ; Start 12/26/17 at 13:45 Duloxetine HCl (Cymbalta Dr) 30 mg DAILY PO Last administered on 01/08/18at 08: 23; Start 12/26/17 at 09:00 Epoetin Marco A (Epogen Inj) 10,000 units UNSCH PRN IV PUSH WITH DIALYSIS Last administered on 01/07/18at 11:14; Start 12/26/17 at 13:45 Fentanyl Citrate (fentaNYL INJ) 50 mcg TAPE TRANSFERRER IV PUSH ; Start 12/29/17 at 09: 00; Stop 01/02/18 at 08:59; Status DC Fluconazole (Diflucan) 200 mg DAILY PO Last administered on 12/27/17at 08:09; Start 12/26/17 at 09:00; Stop 12/27/17 at 10:45; Status DC Gelatin (Gelfoam 12 Mm/7 Mm Top) 1 foam UNSCH PRN TOP SEE LABEL COMMENTS Last administered on 12/28/17at 15:42; Start 12/26/17 at 13:45 Gentamicin Sulfate (Gentamicin Inj) 20 mg UNSCH PRN OTHER WITH DIALYSIS; Start 12/26/17 at 13:45 Glucagon (Glucagon Inj) 1 mg UNSCH PRN OTHER HYPOGLYCEMIA-SEE COMMENTS; Start 12/26/17 at 13:00 Heparin Sodium (Porcine) (Heparin Inj) UNSCH PRN .XX WITH DIALYSIS; Start at 13:45 Insulin Aspart (NovoLOG SUPPLEMENTAL SCALE) 1 Q4HR SQ Last administered on 01/08at 08:21; Start 12/26/17 at 12:47 Insulin Detemir (Levemir Inj) 20 units Q12HR SQ Last administered on 01/07/18at 20:39; Start 12/30/17 at 09:00 Insulin Human Regular (NovoLIN R INJ) 20 units NOW ONCE SQ Last administered on 12/29/17at 12:00; Start 12/29/17 at 12:45; Stop 12/29/17 at 12:46; Status DC Insulin Human Regular 100 units/ Sodium Chloride 100 ml @ 6.5 mls/hr TITRATE PRN IV Blood Sugar Management Last administered on 12/25/17at 22:40; Start at 21:30; Stop 12/26/17 at 12:45; Status DC Iohexol 50 ml @ 0 mls/hr ONCE ONCE IV Last administered on 12/31/17at 08:00; Start 12/31/17 at 08:00; Stop 12/31/17 at 08:12; Status DC Ketorolac Tromethamine (Toradol Inj) 15 mg Q8HR PRN IM CHEST PAIN; Start at 10:00; Stop 01/03/18 at 09:59; Status DC Lactated Ringer's 1,000 ml @ 30 mls/hr Q24H PRN IV SEE LABEL COMMENTS; Start at 00:45; Stop 01/03/18 at 00:44; Status DC Lactulose (Lactulose Liq) 30 ml DAILY PRN PO SEVERE CONSITIPATION; Start at 01:45 Magnesium Hydroxide (Milk Of Magnesia Liq) 30 ml Q12H PRN PO Mild constipation ; Start 12/26/17 at 01:45 Mannitol (Mannitol Inj) 12.5 gm UNSCH PRN IV WITH DIALYSIS; Start 12/26/17 at 13:45 Metoprolol Tartrate (Lopressor Inj) 2.5 mg ONCE PRN IV PUSH ANGINA Last administered on 12/29/17at 08:16; Start 12/29/17 at 08:00; Stop 12/29/17 at 23:00 ; Status DC Metoprolol Tartrate (Lopressor) 25 mg Q8H PO Last administered on 01/08/18at 08: 24; Start 12/29/17 at 08:00 Midazolam HCl (Versed Inj) 1 mg TAPE TRANSFERRER IV PUSH ; Start 12/29/17 at 09:00; Stop 01/02/18 at 08:59; Status DC Miscellaneous Information ALL NURSING DEPARTME... UNSCH PRN .XX SEE LABEL COMMENTS; Start 12/31/17 at 10:15; Stop 01/01/18 at 10:14; Status DC Morphine Sulfate (Morphine Inj) 2 mg Q3H PRN IV pain 5-10 Last administered on 12/31/17at 04:45; Start 12/26/17 at 17:15 Nitroglycerin (Nitroglycerin 2% Oint) 1 inch Q8H TOPICAL Last administered on at 08:24; Start 12/29/17 at 08:00 Nitroglycerin (Nitrostat Sl) 0.4 mg UNSCH PRN SL CHEST PAIN Last administered on 12/29/17at 08:05; Start 12/26/17 at 13:45 Ondansetron HCl (Zofran Inj) 4 mg UNSCH PRN IV PUSH WITH DIALYSIS; Start at 13:45 Pantoprazole Sodium (Protonix) 40 mg DAILY PO Last administered on 01/08/18at 08 :23; Start 12/26/17 at 09:00 Piperacillin Sod/ Tazobactam Sod 50 ml @ 100 mls/hr Q8H IV Last administered on 12/31/17at 11:19; Start 12/26/17 at 12:00; Stop 12/31/17 at 13:25; Status DC Povidone Iodine (Betadine 5% Antisepsis Kit) 1 applic TAPE TRANSFERRER PRN EACH NARE SEE LABEL COMMENTS; Start 12/31/17 at 00:45; Stop 01/03/18 at 00:44; Status DC Senna/Docusate Sodium ([place]-Colace) 1 tab BID PO Last administered on at 12:10; Start 12/26/17 at 09:00 Sennosides (Senokot) 17.2 mg Q12H PRN PO Moderate constipation; Start 12/26/17 at 01:45 Sevelamer Carbonate (Renvela) 2,400 mg TIDAC PO Last administered on 01/08/18at 08:27; Start 12/27/17 at 17:00 Sodium Polystyrene Sulfonate (Kayexalate Liq) 15 gm ONCE ONCE PO ; Start at 21:00; Stop 12/25/17 at 21:01; Status DC Sodium Bicarbonate (Sodium Bicarbonate 8.4% Inj) 50 meq ONCE ONCE SLOW IVP Last administered on 12/25/17at 21:30; Start 12/25/17 at 21:30; Stop 12/25/17 at 21:31; Status DC Sodium Chloride 500 ml @ 30 mls/hr [id number] PRN IV SEE LABEL COMMENTS; Start at 00:45; Stop 01/03/18 at 00:44; Status DC Sodium Chloride (NS Flush) 2 ml UNSCH PRN IV FLUSH FLUSH AFTER USING IV ACCESS ; Start 12/29/17 at 09:45; Stop 12/29/17 at 09:52; Status DC A/P Problem List: (1) PAD (peripheral artery disease) ICD Code: I73.9 - Peripheral vascular disease, unspecified Status: Chronic (2) Diabetic nephropathy ICD Code: E11.21 - Diabetic nephropathy Status: Chronic (3) CKD (chronic kidney disease) stage V requiring chronic dialysis ICD Code: N18.6 - End stage renal disease; Z99.2 - Dependence on renal dialysis Status: Chronic (4) Dyslipidemia ICD Code: E78.5 - Dyslipidemia Status: Chronic (5) DM (diabetes mellitus) ICD Code: E11.9 - Type 2 diabetes mellitus without complications Status: Chronic (6) HTN (hypertension) ICD Code: I10 - Essential (primary) hypertension Status: Chronic Permanent Comment: Last Edited By: Jasmyne Bee on Jul 11, 2017 15:31 (7) PAD (peripheral artery disease) ICD Code: I73.9 - Peripheral vascular disease, unspecified Status: Chronic (8) Ischemic ulcer diabetic foot ICD Code: E11.621 - Type 2 diabetes mellitus with foot ulcer; L97.509 - Non- pressure chronic ulcer of other part of unspecified foot with unspecified severity Status: Acute (9) ESRD on hemodialysis ICD Code: N18.6 - End stage renal disease; Z99.2 - Dependence on renal dialysis Status: Chronic (10) COPD (chronic obstructive pulmonary disease) ICD Code: J44.9 - Chronic obstructive pulmonary disease, unspecified Status: Chronic (11) DKA (diabetic ketoacidoses) ICD Code: E13.10 - Other specified diabetes mellitus with ketoacidosis without coma Status: Acute (12) Encephalopathy acute ICD Code: G93.40 - Encephalopathy, unspecified Status: Acute (13) Osteomyelitis ICD Code: M86.9 - Osteomyelitis, unspecified Status: Acute Assessment and Plan 1. Acute toxic metabolic encephalopathy/Peripheral Neuropathy/Depression Resolved CT brain negative. 2. COPD/Tobacco dependence on Symbicort 160/4.5 2 puffs inhaled twice a day 3. Hypertension/Peripheral Artery Disease/Ischemic distal digits status post Left posterior tibial artery angioplasty 09/24/17 Dr Ortiz Amlodipine 5 mg daily and Lisinopril 10 mg daily 4. ESRD on Hemodialysis M/W/F, Nephrology specialist following 5. Osteomyelitis of the left foot Left second toe amputation 07/11/17 Left Posterior tibial artery angioplasty 09/24/17 I and D Left foot 09/28/17 left foot transmetatarsal amputation 09/26/17 Dr. Judge Poor wound healing and dry gangrene as well as probable wet gangrene noted ID and podiatry ff Currently on Unasyn IV, status post Zosyn s/p bilateral angiogram with balloon angioplasty 12/31/17 AJAY negative for endocarditis 01/02/18 Possible left BKA to be determined by cardiology coordinator. ID concern poor wound healing of his right TMA site due to severe vacular disease. 6. Anemia of chronic disease Stable. 7. DKA resolved/DM II- with hypoglycemic earlier this morning. decrease Levemir to 10 units every 12 hours 8.elevated troponin - likely due to acute pericarditis/ renal failure [facility] without any hemodynamically significant epicardial coronary artery disease. PROPH: Heparin 5000 units subcutaneous every 12 hours for DVT prophylaxis. Protonix 40 mg by mouth daily Discharge Planning when cleared by consultants. Problem Qualifiers (1) DKA (diabetic ketoacidoses): (2) Osteomyelitis: Qualified Codes: M86.8X7 - Other osteomyelitis, ankle and foot Ebony Michel MD Jan 08, 2018 11:58
[2018-01-08 12:00] VITALS: BP 144/66; PULSE 72; RESP 18; TEMP 97.6; O2SAT 100
[2018-01-08] MEDS ORDERED: HYDR-3580 PO (12:02)
[2018-01-08] MEDS: AMPICILLIN-SULBACTAM INJ 3 GM in SODIUM CHLORIDE 0.9% INJ 100 ML IV SCH (15:11)
[2018-01-08 16:00] VITALS: BP 150/67; PULSE 82; RESP 19; TEMP 97.6; O2SAT 100
[2018-01-08 20:00] VITALS: BP 135/63; PULSE 74; RESP 20; TEMP 98; O2SAT 98
[2018-01-09] VITALS: BP 140/65; PULSE 75; RESP 18; TEMP 98.4; O2SAT 98
[2018-01-09] MEDS: METOPROLOL TARTRATE 25 MG TAB PO SCH ×3 (00:28→16:00)
[2018-01-09] MEDS: NITROGLYCERIN 2% OINT 1 GM PACKET TOPICAL SCH ×3 (00:28→16:40)
[2018-01-09] MEDS: diphenhydrAMINE HCL 25 MG CAP PO PRN (00:47)
[2018-01-09] MEDS: CHLORHEXIDINE GLUCONATE 2 % 1 PACK (2 CLOTHS) TOP SCH (00:50)
[2018-01-09] MEDS: LOW DOSE INSULIN NOVOLOG SUPPLEMENTAL SCALE SQ SCH ×6 (04:11→20:30)
[2018-01-09 08:00] VITALS: BP 147/83; PULSE 82; RESP 18; TEMP 97.9; O2SAT 98
[2018-01-09] MEDS: SEVELAMER CARBONATE 800 MG TAB PO SCH ×3 (08:00→16:40)
[2018-01-09] MEDS ORDERED: DEXTROSE 50% IN WATER 50 ML SYRINGE ONE (08:13)
[2018-01-09] MEDS: DEXTROSE 50% IN WATER 50 ML VIAL(D50) IV PUSH PRN (08:34)
[2018-01-09] MEDS: BUDESONIDE-FORMOTEROL 160/4.5 MCG INHALER INH SCH ×2 (08:35→20:23)
[2018-01-09] MEDS: ASPIRIN 81 MG CHEW TAB CHEW SCH ×2 (08:35→12:52)
[2018-01-09] MEDS: INSULIN DETEMIR 100 UNITS/ML VIAL SQ SCH (08:35)
[2018-01-09] MEDS: SODIUM CHLORIDE 0.9% FLUSH 10 ML FLUSH IV FLUSH SCH ×2 (08:35→20:24)
--- NOTE | 2018-01-09 08:41 | HHI.PR ---
Subjective Remarks in no acute distress. blood sugar trend noted ; had a low blood sugar ( 44) earlier this morning. awake, alert and seems to be pain free. d./w the RN at the bedside. Objective Vitals Vital Signs Date Time Temp Pulse Resp B/P (MAP) Pulse Ox O2 Delivery O2 Flow Rate FiO2 01/09/18 00:00 98.4 75 18 140/65 (90) 98 01/08/18 20:00 98.0 74 20 135/63 (87) 98 01/08/18 16:00 97.6 82 19 150/67 (94) 100 01/08/18 12:00 97.6 72 18 144/66 (92) 100 I/O 01/08/18 01/08/18 01/08/18 01/09/18 01/09/18 01/09/18 07:00 15:00 23:00 07:00 15:00 23:00 Intake Total 360 ml 870 ml 340 ml 240 ml Balance 360 ml 870 ml 340 ml 240 ml Intake Oral 360 ml 870 ml 240 ml 240 ml IV Total 100 ml # Voids 0 0 # Bowel Movements 1 0 Result Diagram: 01/08/18 0554 Imaging Last Impressions Foot X-Ray 12/26/17 0000 Signed Impressions: Service Date/Time: Tuesday, December 26, 2017 07:29 - CONCLUSION: 1. Findings concerning for osteomyelitis involving the tuft of the first toe. Phani Vasquez MD Head CT [id number] Signed Impressions: Service Date/Time: Monday, December 25, 2017 22:22 - CONCLUSION: No acute intracranial abnormality demonstrated. Eliu Ayala MD Chest X-Ray [id number]/[id number] Signed Impressions: Service Date/Time: Monday, December 25, 2017 20:45 - CONCLUSION: No evidence of acute cardiopulmonary disease. Eliu Ayala MD Objective Remarks GENERAL: This is a well-nourished, well-developed patient, in no apparent distress. CARDIOVASCULAR: Regular rate and regular rhythm without murmurs, gallops, or rubs. RESPIRATORY: Clear to auscultation. Breath sounds equal bilaterally. No wheezes , rales, or rhonchi. GASTROINTESTINAL: Abdomen soft, non-tender, nondistended. Normal, active bowel sounds MUSCULOSKELETAL: gangrene of the left foot. NEURO: Alert & Oriented x4 to person, place, time, situation. Moves all ext x4 Medications and IVs Inpatient Medications Acetaminophen (Tylenol) 650 mg UNSCH PRN PO for headach, pain, temp > 101F; Start 12/26/17 at 13:45 Acetaminophen/ Hydrocodone Bitart ([place] 7.5-325 Mg) 1 tab Q4H PRN PO pain 1- 4 Last administered on 01/06/18at 18:25; Start 12/27/17 at 12:15 Albumin Human 100 ml @ 60 mls/hr UNSCH PRN IV WITH DIALYSIS; Start 12/26/17 at 13:45 Albuterol Sulfate (Albuterol Concentrated Neb) 10 mg ONCE ONCE INH Last administered on 12/25/17at 21:14; Start 12/25/17 at 21:00; Stop 12/25/17 at 21:01 ; Status DC Albuterol Sulfate (Albuterol Neb) 2.5 mg Q2HR NEB PRN NEB WHEEZING; Start 12/26 at 07:15 Amlodipine Besylate (Norvasc) 5 mg DAILY PO Last administered on 01/08/18at 08: 24; Start 12/26/17 at 09:00 Ampicillin Sodium/ Sulbactam Sodium 3 gm/Sodium Chloride 100 ml @ 200 mls/hr Q24H IV Last administered on 01/08/18at 15:11; Start 12/31/17 at 18:00 Aspirin (Aspirin Chew) 81 mg DAILY CHEW Last administered on 01/08/18at 08:23; Start 12/26/17 at 15:00 Aspirin (Aspirin) 325 mg SWIFT TENDER PO ; Start 12/29/17 at 09:00; Stop 01/02/18 at 08:59; Status DC Atropine Sulfate (Atropine Inj) 0.5 mg UNSCH PRN IV PUSH VAGAL REPONSE; Start 12/29/17 at 09:45 Bacitracin (Bacitracin Oint Packet) 0.9 gm ONCE ONCE TOP ; Start 12/29/17 at 09 :45; Stop 12/29/17 at 09:50; Status DC Bisacodyl (Dulcolax Supp) 10 mg DAILY PRN RECTAL SEVERE CONSITIPATION; Start at 01:45 Budesonide/ Formoterol Fumarate (Symbicort 160-4.5 Mcg Inh) 1 puff Q12HR INH Last administered on 01/08/18at 22:45; Start 12/26/17 at 09:00 Calcium Gluconate (Calcium Gluconate Inj) 2 gm ONCE ONCE SLOW IVP Last administered on 12/25/17at 21:18; Start 12/25/17 at 21:00; Stop 12/25/17 at 21:01 ; Status DC Chlorhexidine Gluconate (Chlorhexidine 2% Cloth) 3 pack SWIFT TENDER PRN TOPICAL SEE LABEL COMMENTS; Start 12/31/17 at 00:45; Stop 01/03/18 at 00:44; Status DC Cholecalciferol (Vitamin D3) 1,000 units DAILY PO Last administered on at 08:23; Start 12/26/17 at 09:00 Ciprofloxacin (Cipro) 500 mg Q12HR PO ; Start 12/26/17 at 09:00; Stop 12/26/17 at 09:00; Status DC Clonidine (Catapres) 0.1 mg UNSCH PRN PO for BP > 180/100 X 2 readings; Start 12/26/17 at 13:45 Dextrose (D50w (Syr) Inj) 50 ml ONCE ONCE IV ; Start 12/26/17 at 07:30; Stop at 07:31; Status DC Dextrose (D50w (Vial) Inj) 50 ml UNSCH PRN IV PUSH HYPOGLYCEMIA - SEE COMMENTS Last administered on 01/08/18at 05:42; Start 12/26/17 at 13:00 Diphenhydramine HCl (Benadryl) 25 mg UNSCH PRN PO for hives/itching/ anaphylaxis Last administered on 01/09/18at 00:47; Start 12/26/17 at 13:45 Duloxetine HCl (Cymbalta Dr) 30 mg DAILY PO Last administered on 01/08/18at 08: 23; Start 12/26/17 at 09:00 Epoetin Marco A (Epogen Inj) 10,000 units UNSCH PRN IV PUSH WITH DIALYSIS Last administered on 01/07/18at 11:14; Start 12/26/17 at 13:45 Fentanyl Citrate (fentaNYL INJ) 50 mcg SWIFT TENDER IV PUSH ; Start 12/29/17 at 09: 00; Stop 01/02/18 at 08:59; Status DC Fluconazole (Diflucan) 200 mg DAILY PO Last administered on 12/27/17at 08:09; Start 12/26/17 at 09:00; Stop 12/27/17 at 10:45; Status DC Gelatin (Gelfoam 12 Mm/7 Mm Top) 1 foam UNSCH PRN TOP SEE LABEL COMMENTS Last administered on 12/28/17at 15:42; Start 12/26/17 at 13:45 Gentamicin Sulfate (Gentamicin Inj) 20 mg UNSCH PRN OTHER WITH DIALYSIS; Start 12/26/17 at 13:45 Glucagon (Glucagon Inj) 1 mg UNSCH PRN OTHER HYPOGLYCEMIA-SEE COMMENTS; Start 12/26/17 at 13:00 Heparin Sodium (Porcine) (Heparin Inj) UNSCH PRN .XX WITH DIALYSIS; Start at 13:45 Insulin Aspart (NovoLOG SUPPLEMENTAL SCALE) 1 Q4HR SQ Last administered on 01/09at 04:11; Start 12/26/17 at 12:47 Insulin Detemir (Levemir Inj) 10 units Q12HR SQ Last administered on 01/08/18at 22:47; Start 01/08/18 at 21:00 Insulin Human Regular (NovoLIN R INJ) 20 units NOW ONCE SQ Last administered on 12/29/17at 12:00; Start 12/29/17 at 12:45; Stop 12/29/17 at 12:46; Status DC Insulin Human Regular 100 units/ Sodium Chloride 100 ml @ 6.5 mls/hr TITRATE PRN IV Blood Sugar Management Last administered on 12/25/17at 22:40; Start at 21:30; Stop 12/26/17 at 12:45; Status DC Iohexol 50 ml @ 0 mls/hr ONCE ONCE IV Last administered on 12/31/17at 08:00; Start 12/31/17 at 08:00; Stop 12/31/17 at 08:12; Status DC Ketorolac Tromethamine (Toradol Inj) 15 mg Q8HR PRN IM CHEST PAIN; Start at 10:00; Stop 01/03/18 at 09:59; Status DC Lactated Ringer's 1,000 ml @ 30 mls/hr Q24H PRN IV SEE LABEL COMMENTS; Start at 00:45; Stop 01/03/18 at 00:44; Status DC Lactulose (Lactulose Liq) 30 ml DAILY PRN PO SEVERE CONSITIPATION; Start at 01:45 Magnesium Hydroxide (Milk Of Magnesia Liq) 30 ml Q12H PRN PO Mild constipation ; Start 12/26/17 at 01:45 Mannitol (Mannitol Inj) 12.5 gm UNSCH PRN IV WITH DIALYSIS; Start 12/26/17 at 13:45 Metoprolol Tartrate (Lopressor Inj) 2.5 mg ONCE PRN IV PUSH ANGINA Last administered on 12/29/17at 08:16; Start 12/29/17 at 08:00; Stop 12/29/17 at 23:00 ; Status DC Metoprolol Tartrate (Lopressor) 25 mg Q8H PO Last administered on 01/09/18at 00: 28; Start 12/29/17 at 08:00 Midazolam HCl (Versed Inj) 1 mg SWIFT TENDER IV PUSH ; Start 12/29/17 at 09:00; Stop 01/02/18 at 08:59; Status DC Miscellaneous Information ALL NURSING DEPARTME... UNSCH PRN .XX SEE LABEL COMMENTS; Start 12/31/17 at 10:15; Stop 01/01/18 at 10:14; Status DC Morphine Sulfate (Morphine Inj) 2 mg Q3H PRN IV pain 5-10 Last administered on 12/31/17at 04:45; Start 12/26/17 at 17:15 Nitroglycerin (Nitroglycerin 2% Oint) 1 inch Q8H TOPICAL Last administered on at 00:28; Start 12/29/17 at 08:00 Nitroglycerin (Nitrostat Sl) 0.4 mg UNSCH PRN SL CHEST PAIN Last administered on 12/29/17at 08:05; Start 12/26/17 at 13:45 Ondansetron HCl (Zofran Inj) 4 mg UNSCH PRN IV PUSH WITH DIALYSIS; Start at 13:45 Pantoprazole Sodium (Protonix) 40 mg DAILY PO Last administered on 01/08/18at 08 :23; Start 12/26/17 at 09:00 Piperacillin Sod/ Tazobactam Sod 50 ml @ 100 mls/hr Q8H IV Last administered on 12/31/17at 11:19; Start 12/26/17 at 12:00; Stop 12/31/17 at 13:25; Status DC Povidone Iodine (Betadine 5% Antisepsis Kit) 1 applic SWIFT TENDER PRN EACH NARE SEE LABEL COMMENTS; Start 12/31/17 at 00:45; Stop 01/03/18 at 00:44; Status DC Senna/Docusate Sodium ([place]-Colace) 1 tab BID PO Last administered on at 22:44; Start 12/26/17 at 09:00 Sennosides (Senokot) 17.2 mg Q12H PRN PO Moderate constipation; Start 12/26/17 at 01:45 Sevelamer Carbonate (Renvela) 2,400 mg TIDAC PO Last administered on 01/08/18at 15:10; Start 12/27/17 at 17:00 Sodium Polystyrene Sulfonate (Kayexalate Liq) 15 gm ONCE ONCE PO ; Start at 21:00; Stop 12/25/17 at 21:01; Status DC Sodium Bicarbonate (Sodium Bicarbonate 8.4% Inj) 50 meq ONCE ONCE SLOW IVP Last administered on 12/25/17at 21:30; Start 12/25/17 at 21:30; Stop 12/25/17 at 21:31; Status DC Sodium Chloride 500 ml @ 30 mls/hr [id number] PRN IV SEE LABEL COMMENTS; Start at 00:45; Stop 01/03/18 at 00:44; Status DC Sodium Chloride (NS Flush) 2 ml UNSCH PRN IV FLUSH FLUSH AFTER USING IV ACCESS ; Start 12/29/17 at 09:45; Stop 12/29/17 at 09:52; Status DC A/P Problem List: (1) PAD (peripheral artery disease) ICD Code: I73.9 - Peripheral vascular disease, unspecified Status: Chronic (2) Diabetic nephropathy ICD Code: E11.21 - Diabetic nephropathy Status: Chronic (3) CKD (chronic kidney disease) stage V requiring chronic dialysis ICD Code: N18.6 - End stage renal disease; Z99.2 - Dependence on renal dialysis Status: Chronic (4) Dyslipidemia ICD Code: E78.5 - Dyslipidemia Status: Chronic (5) DM (diabetes mellitus) ICD Code: E11.9 - Type 2 diabetes mellitus without complications Status: Chronic (6) HTN (hypertension) ICD Code: I10 - Essential (primary) hypertension Status: Chronic Permanent Comment: Last Edited By: Jasmyne Bee on Jul 11, 2017 15:31 (7) PAD (peripheral artery disease) ICD Code: I73.9 - Peripheral vascular disease, unspecified Status: Chronic (8) Ischemic ulcer diabetic foot ICD Code: E11.621 - Type 2 diabetes mellitus with foot ulcer; L97.509 - Non- pressure chronic ulcer of other part of unspecified foot with unspecified severity Status: Acute (9) ESRD on hemodialysis ICD Code: N18.6 - End stage renal disease; Z99.2 - Dependence on renal dialysis Status: Chronic (10) COPD (chronic obstructive pulmonary disease) ICD Code: J44.9 - Chronic obstructive pulmonary disease, unspecified Status: Chronic (11) DKA (diabetic ketoacidoses) ICD Code: E13.10 - Other specified diabetes mellitus with ketoacidosis without coma Status: Acute (12) Encephalopathy acute ICD Code: G93.40 - Encephalopathy, unspecified Status: Acute (13) Osteomyelitis ICD Code: M86.9 - Osteomyelitis, unspecified Status: Acute Assessment and Plan 1. Acute toxic metabolic encephalopathy/Peripheral Neuropathy/Depression Resolved CT brain negative. 2. COPD/Tobacco dependence on Symbicort 160/4.5 2 puffs inhaled twice a day 3. Hypertension/Peripheral Artery Disease/Ischemic distal digits status post Left posterior tibial artery angioplasty 09/24/17 Dr Ortiz Amlodipine 5 mg daily and Lisinopril 10 mg daily 4. ESRD on Hemodialysis M/W/F, Nephrology specialist following 5. Osteomyelitis of the left foot Left second toe amputation 07/11/17 Left Posterior tibial artery angioplasty 09/24/17 I and D Left foot 09/28/17 left foot transmetatarsal amputation 09/26/17 Dr. Judge Poor wound healing and dry gangrene as well as probable wet gangrene noted ID and podiatry ff Currently on Unasyn IV, status post Zosyn s/p bilateral angiogram with balloon angioplasty 12/31/17 AJAY negative for endocarditis 01/02/18 d/w the vascular surgery today and plan for left foot amputation early next week. 6. Anemia of chronic disease Stable. 7. DKA resolved/DM II- with recurrent hypoglycemia earlier this morning. hold levemir- monitor accu-checks closely- consult endocrinology. 8.elevated troponin - likely due to acute pericarditis/ renal failure [facility] without any hemodynamically significant epicardial coronary artery disease. PROPH: Heparin 5000 units subcutaneous every 12 hours for DVT prophylaxis. Protonix 40 mg by mouth daily Discharge Planning not ready for discharge today due to recurrent hypoglycemia. Problem Qualifiers (1) DKA (diabetic ketoacidoses): (2) Osteomyelitis: Qualified Codes: M86.8X7 - Other osteomyelitis, ankle and foot Ebony Michel MD Jan 09, 2018 08:41
[2018-01-09] MEDS: amLODIPine BESYLATE 5 MG TAB PO SCH (09:00)
--- NOTE | 2018-01-09 09:38 | PD.VS.PN ---
Subjective Subjective/Hospital Course 57 M/ Pt with a PMH of L TMA, PAD and ESRD. Pt continues w/ a nonhealing L TMA from OSH Pt denied pain No odor present Objective Vitals/I&O Date Time Temp Pulse Resp B/P (MAP) Pulse Ox O2 Delivery O2 Flow Rate FiO2 01/09/18 00:00 98.4 75 18 140/65 (90) 98 01/08/18 20:00 98.0 74 20 135/63 (87) 98 01/08/18 16:00 97.6 82 19 150/67 (94) 100 01/08/18 12:00 97.6 72 18 144/66 (92) 100 01/09/18 01/09/18 01/09/18 07:00 15:00 23:00 Intake Total 240 ml Balance 240 ml Physical Exam GENERAL: A&Ox3 SKIN: LE Warm and dry w/ motor intact Right great toe discoloration (dry necrotic tissue)/No O/D/S L TMA site w/ dry necrotic tissue/No O/S/D MUSCULOSKELETAL: No cyanosis, or edema. Laboratory Date/Time Source Procedure Growth Status 12/26/17 04:45 Blood Peripheral Aerobic Blood Culture - Final NO GROWTH IN 5 DAYS Complete 12/26/17 04:45 Blood Peripheral Anaerobic Blood Culture - Final NO GROWTH IN 5 DAYS Complete Assessment and Plan Assessment: (1) PAD (peripheral artery disease) Status: Chronic Plan Pt w/ B LE ischemia and digital mild ischemia Pt with stable LE wounds LE warm w/ motor intact Palpable radial pulses noted Plan Discussed L BKA surgical intervention w/ pt Questions answered Pt agrees w/ a LEFT BKA and reported he is ready for the amputation Will schedule for early next week w/ Dr. Ortiz Can be done as out pt if needed Alba Allen NP [facility] [phone] Alba Allen Jan 09, 2018 09:38
--- NOTE | 2018-01-09 10:18 | HHI.NPPN ---
Subjective General Problems: Anemia, Diabetes Renal Failure: Chronic, End Stage Renal Disease Interval History D/W vacular. The patient is agreeable to BKA. Tentatively next Sunday. Seen during dialysis. (Jasmyne Bee) Review of Systems Musculoskeletal MS: Pain/Stiffness (Jasmyne Bee) Skin Skin: Ulcers Skin Remarks right great toe, left MFA skin changes, non healing (Jasmyne Bee) Objective Data Data Vital Signs Date Time Temp Pulse Resp B/P (MAP) Pulse Ox O2 Delivery O2 Flow Rate FiO2 01/09/18 08:00 97.9 82 18 147/83 (104) 98 01/09/18 00:00 98.4 75 18 140/65 (90) 98 01/08/18 20:00 98.0 74 20 135/63 (87) 98 01/08/18 16:00 97.6 82 19 150/67 (94) 100 01/08/18 12:00 97.6 72 18 144/66 (92) 100 (Jasmyne Bee) -: 01/08/18 0554 Tubes & Lines Comment Ta right chest (Jasmyne Bee) Physical Exam General Appearance: Well Developed, Well Nourished, No Acute Distress, Comfortable, Sleeping (Jasmyne Bee) Eyes Eye Exam: Pupils Equal (Jasmyne Bee) Neck Neck Exam: Neck Supple (Jasmyne Bee) Pulmonary Resp Exam: Clear Bilaterally, Breath Sounds Equal (Jasmyne Bee) Cardiology CV Exam: Regular, Normal Sinus Rhythm (Jasmyne Bee) Gastrointestinal/Abdomen GI Exam: Soft, Non-Tender, Bowel Sounds Present (Jasmyne Bee) Musculoskeletal MS Exam: Joints Intact, Good Strength MS Remarks left midfoot amputation, no skin flap bone visible, dark edges with gangrene/eschar; brenda intact (Jasmyne Bee) Integumentary Skin Exam: Warm, Dry Skin Remarks see above right great toe with nail changes. ischemic tip of hand, R 1-3rd digits discolored/dark, radial pulse strong on right (Jasmyne Bee) Extremeties Extremities Exam: No Edema, Pedal Pulses Palpable Extremeties Remarks left AVF +thrill, bruit (Jasmyne Bee) Neurologic Neuro Exam: Alert, Awake, Oriented, Speech Clear, Moving All Extremities (Jasmyne Bee) Psychiatric Psych Exam: Appropriate Responses (Jasmyne Bee) Assessment/Plan Discussed Condition With: Patient Assessment Summary: Anemia of CKD, Hypertension, Diabetes Mellitus, End Stage Renal Disease Problem List: (1) ESRD (end stage renal disease) ICD Codes: N18.6 - End-stage renal disease Status: Resolved Plan: Seen during dialysis today on a 3K, 300 BFR, oga,l 3l Continue HD on MWF. He has existing HD arrangements in place for discharge purposes. Using AVF left arm for HD Avoid IVF administration, gadolinium in contraindicated High protein diet ordered with protein supplements Repeat labs intermittently. They have been ordered and sent. (2) Osteomyelitis ICD Codes: M86.9 - Osteomyelitis, unspecified Status: Acute Plan: ID, podiatry, and vascular following On Unasyn IV, which will need to be continued at discharge s/p bilateral balloon angioplasty Possible L BKA next week. Otherwise can follow with vascular for ABIs and WBIs in 2 weeks outpatient. AJAY 01/02: No veg, mild MR and mild TR Unclear if we can remove the Ta; if antibiotics will be required at discharge consider leaving it in. ID assistance on this matter is appreciated. (3) PAD (peripheral artery disease) ICD Codes: I73.9 - Peripheral vascular disease, unspecified Status: Chronic Plan: See above Needs wound care to left foot/amputation site. (4) Bone metabolism disorder ICD Codes: E88.9 - Metabolic disorder, unspecified; M90.80 - Osteopathy in diseases classified elsewhere, unspecified site Status: Acute Plan: Continue high dose Renvela with meals Advised binder compliance Repeat level intermittently (5) DKA (diabetic ketoacidoses) ICD Codes: E13.10 - Other specified diabetes mellitus with ketoacidosis without coma Status: Acute Plan: Labile blood sugar, 20s this AM A1c 10.7 On Levemir, he is a Brittle DM 1 Endocrinology has been consulted for assistance in management (6) HTN (hypertension) ICD Codes: I10 - Essential (primary) hypertension Status: Chronic Plan: Continue home medications, titrate as needed Permanent Comment: Last Edited By: Jasmyne Bee on Jul 11, 2017 15:31 (7) Anemia ICD Codes: D64.9 - Anemia, unspecified Plan: Epogen with dialysis (8) Hyperkalemia ICD Codes: E87.5 - Hyperkalemia Status: Acute Plan: Improved. Continue to monitor. (Jasmyne Bee) Plan patient was seen and examined. Agree with above assessment and plan. (Maurice Schultz MD) Problem Qualifiers (1) Osteomyelitis: Qualified Codes: M86.8X7 - Other osteomyelitis, ankle and foot (2) DKA (diabetic ketoacidoses): (3) Anemia: Qualified Codes: N18.6 - End stage renal disease; D63.1 - Anemia in chronic kidney disease; Z99.2 - Dependence on renal dialysis Jasmyne Bee Jan 09, 2018 10:18 Maurice Schultz MD Jan 10, 2018 14:17
[2018-01-09 10:19] LABS: AUTOMATED NEUTROPHIL # 11.2 TH/MM3 (1.8-7.7); BASOPHIL # 0.1 TH/MM3 (0-0.2); BASOPHIL % 1.1 % (0.0-2.0); EOSINOPHIL # 0.1 TH/MM3 (0-0.4); EOSINOPHIL % 0.7 % (0.0-4.0); HEMATOCRIT 29.1 % (39.0-51.0); LYMPH % 5.9 % (9.0-44.0); LYMPHOCYTE # 0.8 TH/MM3 (1.0-4.8); MEAN CELL VOLUME 74.7 FL (80.0-100.0); MEAN CORPUSCULAR HEMOGLOBIN 23.1 PG (27.0-34.0); MEAN PLATELET VOLUME 9.3 FL (7.0-11.0); MONOCYTE # 1.4 TH/MM3 (0-0.9); NEUT % 82.3 % (16.0-70.0); PLATELET COUNT 348 TH/MM3 (150-450); RED CELL DISTRIBUTION WIDTH 21.5 % (11.6-17.2); WHITE BLOOD COUNT 13.6 TH/MM3 (4.0-11.0)
[2018-01-09 10:43] LABS: ALBUMIN 2.1 GM/DL (3.4-5.0); BICARBONATE 29.1 MEQ/L (21.0-32.0); CALCIUM 8.7 MG/DL (8.5-10.1); CREATININE 9.22 MG/DL (0.60-1.30); PHOSPHORUS 3.1 MG/DL (2.5-4.9)
[2018-01-09] MEDS: DULoxetine HCl DR 30 MG CAP PO SCH (12:51)
[2018-01-09] MEDS: PANTOPRAZOLE SOD 40 MG DELAYED RELEASE TAB PO SCH (12:52)
[2018-01-09] MEDS: CHOLECALCIFEROL (VIT D3) 1000 UNIT TAB PO SCH (12:52)
[2018-01-09] MEDS: DOCUSATE SODIUM 50 MG/SENNA 8.6 MG TAB PO SCH ×2 (12:52→20:24)
[2018-01-09 13:18] VITALS: BP 151/68; PULSE 80; RESP 19; TEMP 97.6; O2SAT 99
--- NOTE | 2018-01-09 15:40 | RADRPT ---
EXAM DATE/TIME: 01/09/2018 15:16 [place] COMPARISON: CHEST SINGLE AP, December 25, 2017, 20:45. INDICATIONS : Short of breath. MEDICAL HISTORY : Seizures. Hypertension. Renal failure. SURGICAL HISTORY : None. ENCOUNTER: Subsequent ACUITY: 2 weeks PAIN SCORE: 0/10 LOCATION: Bilateral chest FINDINGS: Lungs are hyperinflated but otherwise clear. There is no evidence of acute air space disease or conge stion. Heart remains mildly enlarged. Central venous catheter is in stable position. CONCLUSION: No acute disease. No significant change has occurred. Mild cardiomegaly Brian Yu MD on January 09, 2018 at 15:37 Board Certified Radiologist. This report was verified electronically.
[2018-01-09 16:00] VITALS: BP 151/65; PULSE 85; RESP 20; TEMP 98.2; O2SAT 100
[2018-01-09] MEDS: AMPICILLIN-SULBACTAM INJ 3 GM in SODIUM CHLORIDE 0.9% INJ 100 ML IV SCH (16:41)
[2018-01-09] MEDS: ACETAMINOPHEN/HYDROcodone 325 MG/7.5 MG TAB PO PRN (16:41)
[2018-01-09 20:00] VITALS: BP 143/65; PULSE 76; RESP 18; TEMP 100.3; O2SAT 100
[2018-01-10] VITALS: BP 135/65; PULSE 82; RESP 18; TEMP 97.6; O2SAT 96
[2018-01-10] MEDS: NITROGLYCERIN 2% OINT 1 GM PACKET TOPICAL SCH ×3 (00:11→15:55)
[2018-01-10] MEDS: METOPROLOL TARTRATE 25 MG TAB PO SCH ×3 (00:11→15:55)
[2018-01-10] MEDS: LOW DOSE INSULIN NOVOLOG SUPPLEMENTAL SCALE SQ SCH ×5 (00:15→16:00)
[2018-01-10] MEDS: ONDANSETRON HCL 4 MG/2 ML VIAL IV PUSH PRN ×2 (02:58→08:26)
[2018-01-10] MEDS: CHLORHEXIDINE GLUCONATE 2 % 1 PACK (2 CLOTHS) TOP SCH (03:02)
[2018-01-10 04:00] VITALS: BP 147/70; PULSE 72; RESP 18; TEMP 97.6; O2SAT 100
[2018-01-10 08:00] VITALS: BP 143/65; PULSE 70; RESP 20; O2SAT 100
[2018-01-10] MEDS: diphenhydrAMINE HCL 25 MG CAP PO PRN (08:27)
[2018-01-10] MEDS: PANTOPRAZOLE SOD 40 MG DELAYED RELEASE TAB PO SCH (08:28)
[2018-01-10] MEDS: DULoxetine HCl DR 30 MG CAP PO SCH (08:28)
[2018-01-10] MEDS: SEVELAMER CARBONATE 800 MG TAB PO SCH ×3 (08:28→15:55)
[2018-01-10] MEDS: amLODIPine BESYLATE 5 MG TAB PO SCH (08:29)
[2018-01-10] MEDS: SODIUM CHLORIDE 0.9% FLUSH 10 ML FLUSH IV FLUSH SCH ×2 (08:29→21:03)
[2018-01-10] MEDS: CHOLECALCIFEROL (VIT D3) 1000 UNIT TAB PO SCH (08:29)
[2018-01-10] MEDS: ASPIRIN 81 MG CHEW TAB CHEW SCH (08:29)
[2018-01-10] MEDS: DOCUSATE SODIUM 50 MG/SENNA 8.6 MG TAB PO SCH ×2 (08:29→21:02)
[2018-01-10] MEDS: BUDESONIDE-FORMOTEROL 160/4.5 MCG INHALER INH SCH ×2 (08:30→21:03)
--- NOTE | 2018-01-10 08:46 | HHI.PR ---
Subjective Remarks in no acute distress. pain is fairly controlled. complaining of hiccups. low grade fever last night. Objective Vitals Vital Signs Date Time Temp Pulse Resp B/P (MAP) Pulse Ox O2 Delivery O2 Flow Rate FiO2 01/10/18 04:00 97.6 72 18 147/70 (95) 100 01/10/18 00:00 97.6 82 18 135/65 (88) 96 01/09/18 20:00 100.3 76 18 143/65 (91) 100 01/09/18 16:00 98.2 85 20 151/65 (93) 100 01/09/18 13:18 97.6 80 19 151/68 (95) 99 I/O 01/09/18 01/09/18 01/09/18 01/10/18 01/10/18 01/10/18 07:00 15:00 23:00 07:00 15:00 23:00 Intake Total 240 ml 1300 ml 360 ml Output Total 3000 ml Balance 240 ml -3000 ml 1300 ml 360 ml Intake Oral 240 ml 1200 ml 360 ml IV Total 100 ml Hemodialysis 3000 ml # Voids 0 1 0 # Bowel Movements 0 1 0 Result Diagram: 01/09/18 0917 01/09/18 0917 Imaging Last Impressions Chest X-Ray 01/09/18 0000 Signed Impressions: Service Date/Time: Tuesday, January 09, 2018 15:16 - CONCLUSION: No acute disease. No significant change has occurred. Mild cardiomegaly Brian Yu MD Foot X-Ray 12/26/17 0000 Signed Impressions: Service Date/Time: Tuesday, December 26, 2017 07:29 - CONCLUSION: 1. Findings concerning for osteomyelitis involving the tuft of the first toe. Phani Vasquez MD Head CT [id number] Signed Impressions: Service Date/Time: Monday, December 25, 2017 22:22 - CONCLUSION: No acute intracranial abnormality demonstrated. Eliu Ayala MD Objective Remarks GENERAL: This is a well-nourished, well-developed patient, in no apparent distress. CARDIOVASCULAR: Regular rate and regular rhythm without murmurs, gallops, or rubs. RESPIRATORY: Clear to auscultation. Breath sounds equal bilaterally. No wheezes , rales, or rhonchi. GASTROINTESTINAL: Abdomen soft, non-tender, nondistended. Normal, active bowel sounds MUSCULOSKELETAL: gangrene of the left foot. NEURO: Alert & Oriented x4 to person, place, time, situation. Moves all ext x4 Medications and IVs Inpatient Medications Acetaminophen (Tylenol) 650 mg UNSCH PRN PO for headach, pain, temp > 101F; Start 12/26/17 at 13:45 Acetaminophen/ Hydrocodone Bitart ([place] 7.5-325 Mg) 1 tab Q4H PRN PO pain 1- 4 Last administered on 01/09/18at 16:41; Start 12/27/17 at 12:15 Albumin Human 100 ml @ 60 mls/hr UNSCH PRN IV WITH DIALYSIS; Start 12/26/17 at 13:45 Albuterol Sulfate (Albuterol Concentrated Neb) 10 mg ONCE ONCE INH Last administered on 12/25/17at 21:14; Start 12/25/17 at 21:00; Stop 12/25/17 at 21:01 ; Status DC Albuterol Sulfate (Albuterol Neb) 2.5 mg Q2HR NEB PRN NEB WHEEZING; Start 12/26 at 07:15 Amlodipine Besylate (Norvasc) 5 mg DAILY PO Last administered on 01/08/18at 08: 24; Start 12/26/17 at 09:00 Ampicillin Sodium/ Sulbactam Sodium 3 gm/Sodium Chloride 100 ml @ 200 mls/hr Q24H IV Last administered on 01/09/18at 16:41; Start 12/31/17 at 18:00 Aspirin (Aspirin Chew) 81 mg DAILY CHEW Last administered on 01/09/18at 12:52; Start 12/26/17 at 15:00 Aspirin (Aspirin) 325 mg EQUIPMENT WASHER PO ; Start 12/29/17 at 09:00; Stop 01/02/18 at 08:59; Status DC Atropine Sulfate (Atropine Inj) 0.5 mg UNSCH PRN IV PUSH VAGAL REPONSE; Start 12/29/17 at 09:45 Bacitracin (Bacitracin Oint Packet) 0.9 gm ONCE ONCE TOP ; Start 12/29/17 at 09 :45; Stop 12/29/17 at 09:50; Status DC Bisacodyl (Dulcolax Supp) 10 mg DAILY PRN RECTAL SEVERE CONSITIPATION; Start at 01:45 Budesonide/ Formoterol Fumarate (Symbicort 160-4.5 Mcg Inh) 1 puff Q12HR INH Last administered on 01/09/18at 20:23; Start 12/26/17 at 09:00 Calcium Gluconate (Calcium Gluconate Inj) 2 gm ONCE ONCE SLOW IVP Last administered on 12/25/17at 21:18; Start 12/25/17 at 21:00; Stop 12/25/17 at 21:01 ; Status DC Chlorhexidine Gluconate (Chlorhexidine 2% Cloth) 3 pack EQUIPMENT WASHER PRN TOPICAL SEE LABEL COMMENTS; Start 12/31/17 at 00:45; Stop 01/03/18 at 00:44; Status DC Cholecalciferol (Vitamin D3) 1,000 units DAILY PO Last administered on at 12:52; Start 12/26/17 at 09:00 Ciprofloxacin (Cipro) 500 mg Q12HR PO ; Start 12/26/17 at 09:00; Stop 12/26/17 at 09:00; Status DC Clonidine (Catapres) 0.1 mg UNSCH PRN PO for BP > 180/100 X 2 readings; Start 12/26/17 at 13:45 Dextrose (D50w (Syr) Inj) 50 ml ONCE ONCE IV ; Start 12/26/17 at 07:30; Stop at 07:31; Status DC Dextrose (D50w (Vial) Inj) 50 ml UNSCH PRN IV PUSH HYPOGLYCEMIA - SEE COMMENTS Last administered on 01/09/18at 08:34; Start 12/26/17 at 13:00 Diphenhydramine HCl (Benadryl) 25 mg UNSCH PRN PO for hives/itching/ anaphylaxis Last administered on 01/09/18at 00:47; Start 12/26/17 at 13:45 Duloxetine HCl (Cymbalta Dr) 30 mg DAILY PO Last administered on 01/09/18at 12: 51; Start 12/26/17 at 09:00 Epoetin Marco A (Epogen Inj) 10,000 units UNSCH PRN IV PUSH WITH DIALYSIS Last administered on 01/07/18at 11:14; Start 12/26/17 at 13:45 Fentanyl Citrate (fentaNYL INJ) 50 mcg EQUIPMENT WASHER IV PUSH ; Start 12/29/17 at 09: 00; Stop 01/02/18 at 08:59; Status DC Fluconazole (Diflucan) 200 mg DAILY PO Last administered on 12/27/17at 08:09; Start 12/26/17 at 09:00; Stop 12/27/17 at 10:45; Status DC Gelatin (Gelfoam 12 Mm/7 Mm Top) 1 foam UNSCH PRN TOP SEE LABEL COMMENTS Last administered on 12/28/17at 15:42; Start 12/26/17 at 13:45 Gentamicin Sulfate (Gentamicin Inj) 20 mg UNSCH PRN OTHER WITH DIALYSIS; Start 12/26/17 at 13:45 Glucagon (Glucagon Inj) 1 mg UNSCH PRN OTHER HYPOGLYCEMIA-SEE COMMENTS; Start 12/26/17 at 13:00 Heparin Sodium (Porcine) (Heparin Inj) UNSCH PRN .XX WITH DIALYSIS; Start at 13:45 Insulin Aspart (NovoLOG SUPPLEMENTAL SCALE) 1 Q4HR SQ Last administered on 01/10at 03:00; Start 12/26/17 at 12:47 Insulin Detemir (Levemir Inj) 10 units Q12HR SQ Last administered on 01/08/18at 22:47; Start 01/08/18 at 21:00; Status Future Hold Insulin Human Regular (NovoLIN R INJ) 20 units NOW ONCE SQ Last administered on 12/29/17at 12:00; Start 12/29/17 at 12:45; Stop 12/29/17 at 12:46; Status DC Insulin Human Regular 100 units/ Sodium Chloride 100 ml @ 6.5 mls/hr TITRATE PRN IV Blood Sugar Management Last administered on 12/25/17at 22:40; Start at 21:30; Stop 12/26/17 at 12:45; Status DC Iohexol 50 ml @ 0 mls/hr ONCE ONCE IV Last administered on 12/31/17at 08:00; Start 12/31/17 at 08:00; Stop 12/31/17 at 08:12; Status DC Ketorolac Tromethamine (Toradol Inj) 15 mg Q8HR PRN IM CHEST PAIN; Start at 10:00; Stop 01/03/18 at 09:59; Status DC Lactated Ringer's 1,000 ml @ 30 mls/hr Q24H PRN IV SEE LABEL COMMENTS; Start at 00:45; Stop 01/03/18 at 00:44; Status DC Lactulose (Lactulose Liq) 30 ml DAILY PRN PO SEVERE CONSITIPATION; Start at 01:45 Magnesium Hydroxide (Milk Of Magnesia Liq) 30 ml Q12H PRN PO Mild constipation ; Start 12/26/17 at 01:45 Mannitol (Mannitol Inj) 12.5 gm UNSCH PRN IV WITH DIALYSIS; Start 12/26/17 at 13:45 Metoprolol Tartrate (Lopressor Inj) 2.5 mg ONCE PRN IV PUSH ANGINA Last administered on 12/29/17at 08:16; Start 12/29/17 at 08:00; Stop 12/29/17 at 23:00 ; Status DC Metoprolol Tartrate (Lopressor) 25 mg Q8H PO Last administered on 01/10/18at 00: 11; Start 12/29/17 at 08:00 Midazolam HCl (Versed Inj) 1 mg EQUIPMENT WASHER IV PUSH ; Start 12/29/17 at 09:00; Stop 01/02/18 at 08:59; Status DC Miscellaneous Information ALL NURSING DEPARTME... UNSCH PRN .XX SEE LABEL COMMENTS; Start 12/31/17 at 10:15; Stop 01/01/18 at 10:14; Status DC Morphine Sulfate (Morphine Inj) 2 mg Q3H PRN IV pain 5-10 Last administered on 12/31/17at 04:45; Start 12/26/17 at 17:15 Nitroglycerin (Nitroglycerin 2% Oint) 1 inch Q8H TOPICAL Last administered on at 00:11; Start 12/29/17 at 08:00 Nitroglycerin (Nitrostat Sl) 0.4 mg UNSCH PRN SL CHEST PAIN Last administered on 12/29/17at 08:05; Start 12/26/17 at 13:45 Ondansetron HCl (Zofran Inj) 4 mg UNSCH PRN IV PUSH WITH DIALYSIS; Start at 13:45 Pantoprazole Sodium (Protonix) 40 mg DAILY PO Last administered on 01/09/18at 12 :52; Start 12/26/17 at 09:00 Piperacillin Sod/ Tazobactam Sod 50 ml @ 100 mls/hr Q8H IV Last administered on 12/31/17at 11:19; Start 12/26/17 at 12:00; Stop 12/31/17 at 13:25; Status DC Povidone Iodine (Betadine 5% Antisepsis Kit) 1 applic EQUIPMENT WASHER PRN EACH NARE SEE LABEL COMMENTS; Start 12/31/17 at 00:45; Stop 01/03/18 at 00:44; Status DC Senna/Docusate Sodium ([place]-Colace) 1 tab BID PO Last administered on at 12:52; Start 12/26/17 at 09:00 Sennosides (Senokot) 17.2 mg Q12H PRN PO Moderate constipation; Start 12/26/17 at 01:45 Sevelamer Carbonate (Renvela) 2,400 mg TIDAC PO Last administered on 01/09/18at 16:40; Start 12/27/17 at 17:00 Sodium Polystyrene Sulfonate (Kayexalate Liq) 15 gm ONCE ONCE PO ; Start at 21:00; Stop 12/25/17 at 21:01; Status DC Sodium Bicarbonate (Sodium Bicarbonate 8.4% Inj) 50 meq ONCE ONCE SLOW IVP Last administered on 12/25/17at 21:30; Start 12/25/17 at 21:30; Stop 12/25/17 at 21:31; Status DC Sodium Chloride 500 ml @ 30 mls/hr [id number] PRN IV SEE LABEL COMMENTS; Start at 00:45; Stop 01/03/18 at 00:44; Status DC Sodium Chloride (NS Flush) 2 ml UNSCH PRN IV FLUSH FLUSH AFTER USING IV ACCESS ; Start 12/29/17 at 09:45; Stop 12/29/17 at 09:52; Status DC A/P Problem List: (1) PAD (peripheral artery disease) ICD Code: I73.9 - Peripheral vascular disease, unspecified Status: Chronic (2) Diabetic nephropathy ICD Code: E11.21 - Diabetic nephropathy Status: Chronic (3) CKD (chronic kidney disease) stage V requiring chronic dialysis ICD Code: N18.6 - End stage renal disease; Z99.2 - Dependence on renal dialysis Status: Chronic (4) Dyslipidemia ICD Code: E78.5 - Dyslipidemia Status: Chronic (5) DM (diabetes mellitus) ICD Code: E11.9 - Type 2 diabetes mellitus without complications Status: Chronic (6) HTN (hypertension) ICD Code: I10 - Essential (primary) hypertension Status: Chronic Permanent Comment: Last Edited By: Jasmyne Bee on Jul 11, 2017 15:31 (7) PAD (peripheral artery disease) ICD Code: I73.9 - Peripheral vascular disease, unspecified Status: Chronic (8) Ischemic ulcer diabetic foot ICD Code: E11.621 - Type 2 diabetes mellitus with foot ulcer; L97.509 - Non- pressure chronic ulcer of other part of unspecified foot with unspecified severity Status: Acute (9) ESRD on hemodialysis ICD Code: N18.6 - End stage renal disease; Z99.2 - Dependence on renal dialysis Status: Chronic (10) COPD (chronic obstructive pulmonary disease) ICD Code: J44.9 - Chronic obstructive pulmonary disease, unspecified Status: Chronic (11) DKA (diabetic ketoacidoses) ICD Code: E13.10 - Other specified diabetes mellitus with ketoacidosis without coma Status: Acute (12) Encephalopathy acute ICD Code: G93.40 - Encephalopathy, unspecified Status: Acute (13) Osteomyelitis ICD Code: M86.9 - Osteomyelitis, unspecified Status: Acute Assessment and Plan 1. Acute toxic metabolic encephalopathy/Peripheral Neuropathy/Depression Resolved CT brain negative. 2. COPD/Tobacco dependence on Symbicort 160/4.5 2 puffs inhaled twice a day 3. Hypertension/Peripheral Artery Disease/Ischemic distal digits status post Left posterior tibial artery angioplasty 09/24/17 Dr Ortiz Amlodipine 5 mg daily and Lisinopril 10 mg daily 4. ESRD on Hemodialysis M/W/F, Nephrology specialist following 5. Osteomyelitis of the left foot Left second toe amputation 07/11/17 Left Posterior tibial artery angioplasty 09/24/17 I and D Left foot 09/28/17 left foot transmetatarsal amputation 09/26/17 Dr. Judge Poor wound healing and dry gangrene as well as probable wet gangrene noted ID and podiatry ff Currently on Unasyn IV, status post Zosyn s/p bilateral angiogram with balloon angioplasty 12/31/17 AJAY negative for endocarditis 01/02/18 d/w the vascular surgery today and plan for left foot amputation next week. 6. Anemia of chronic disease Stable. 7. DKA resolved/DM - with hypoglycemic episodes. levemir on hold- monitor accu-checks closely- consult endocrinology. 8.elevated troponin - likely due to acute pericarditis/ renal failure [facility] without any hemodynamically significant epicardial coronary artery disease. PROPH: Heparin 5000 units subcutaneous every 12 hours for DVT prophylaxis. Protonix 40 mg by mouth daily Discharge Planning possible discharge tomorrow if stable- awaiting endocrinology evaluation. d/w the vascular surgery. Problem Qualifiers (1) DKA (diabetic ketoacidoses): (2) Osteomyelitis: Qualified Codes: M86.8X7 - Other osteomyelitis, ankle and foot Ebony Michel MD Jan 10, 2018 08:46
--- NOTE | 2018-01-10 09:25 | PD.VS.PN ---
Subjective Subjective/Hospital Course 57 M/ Pt with a PMH of L TMA, PAD and ESRD. Pt w/ a nonhealing L TMA Pt w/o pain No odor present Objective Vitals/I&O Date Time Temp Pulse Resp B/P (MAP) Pulse Ox O2 Delivery O2 Flow Rate FiO2 01/10/18 04:00 97.6 72 18 147/70 (95) 100 01/10/18 00:00 97.6 82 18 135/65 (88) 96 01/09/18 20:00 100.3 76 18 143/65 (91) 100 01/09/18 16:00 98.2 85 20 151/65 (93) 100 01/09/18 13:18 97.6 80 19 151/68 (95) 99 01/10/18 01/10/18 01/10/18 07:00 15:00 23:00 Intake Total 360 ml Balance 360 ml Physical Exam LE Warm and dry w/ motor intact Right great toe discoloration (dry necrotic tissue)/No O/D/S L TMA site w/ dry necrotic tissue/No O/S/D Laboratory Date/Time Source Procedure Growth Status 12/26/17 04:45 Blood Peripheral Aerobic Blood Culture - Final NO GROWTH IN 5 DAYS Complete 12/26/17 04:45 Blood Peripheral Anaerobic Blood Culture - Final NO GROWTH IN 5 DAYS Complete Imaging Last 48 hours Impressions Chest X-Ray 01/09/18 0000 Signed Impressions: Service Date/Time: Tuesday, January 09, 2018 15:16 - CONCLUSION: No acute disease. No significant change has occurred. Mild cardiomegaly Brian Yu MD Assessment and Plan Assessment: (1) PAD (peripheral artery disease) Status: Chronic Plan Pt w/ B LE ischemia and digital mild ischemia Pt with stable LE wounds LE warm w/ motor intact Palpable radial pulses noted Plan Discussed L BKA surgical intervention w/ pt Questions answered Obtained consent Pt scheduled for a LEFT BKA on 01/17/18 w/ Dr. Ortiz Can be done as out pt if needed Alba Allen NURSES DIRECTOR [facility] [phone] Alba Allen Jan 10, 2018 09:25
--- NOTE | 2018-01-10 10:23 | HHI.NPPN ---
Subjective General Problems: Anemia, Diabetes Renal Failure: Chronic, End Stage Renal Disease Interval History Possible discharge. Had dialysis yesterday. BKA is scheduled now for next as outpatient. (Jasmyne Bee) Review of Systems Musculoskeletal MS: Pain/Stiffness (Jasmyne Bee) Skin Skin: Ulcers Skin Remarks right great toe, left MFA skin changes, non healing (Jasmyne Bee) Objective Data Data Vital Signs Date Time Temp Pulse Resp B/P (MAP) Pulse Ox O2 Delivery O2 Flow Rate FiO2 01/10/18 04:00 97.6 72 18 147/70 (95) 100 01/10/18 00:00 97.6 82 18 135/65 (88) 96 01/09/18 20:00 100.3 76 18 143/65 (91) 100 01/09/18 16:00 98.2 85 20 151/65 (93) 100 01/09/18 13:18 97.6 80 19 151/68 (95) 99 (Jasmyne Bee) -: 01/09/18 0917 01/09/18 0917 Imaging Last 72 hours Impressions Chest X-Ray 01/09/18 0000 Signed Impressions: Service Date/Time: Tuesday, January 09, 2018 15:16 - CONCLUSION: No acute disease. No significant change has occurred. Mild cardiomegaly Brian Yu MD Tubes & Lines Comment Ta right chest (Jasmyne Bee) Physical Exam General Appearance: Well Developed, Well Nourished, No Acute Distress, Comfortable, Sleeping (Jasmyne Bee) Eyes Eye Exam: Pupils Equal (Jasmyne Bee) Neck Neck Exam: Neck Supple (Jasmyne Bee) Pulmonary Resp Exam: Clear Bilaterally, Breath Sounds Equal (Jasmyne Bee) Cardiology CV Exam: Regular, Normal Sinus Rhythm (Jasmyne Bee) Gastrointestinal/Abdomen GI Exam: Soft, Non-Tender, Bowel Sounds Present (Jasmyne Bee) Musculoskeletal MS Exam: Joints Intact, Good Strength MS Remarks left midfoot amputation, no skin flap bone visible, dark edges with gangrene/eschar; brenda intact (Jasmyne Bee) Integumentary Skin Exam: Warm, Dry Skin Remarks see above right great toe with nail changes. ischemic tip of hand, R 1-3rd digits discolored/dark, radial pulse strong on right (Jasmyne Bee) Extremeties Extremities Exam: No Edema, Pedal Pulses Palpable Extremeties Remarks left AVF +thrill, bruit (Jasmyne Bee) Neurologic Neuro Exam: Alert, Awake, Oriented, Speech Clear, Moving All Extremities (Jasmyne Bee) Psychiatric Psych Exam: Appropriate Responses (Jasmyne Bee) Assessment/Plan Discussed Condition With: Patient Assessment Summary: Anemia of CKD, Hypertension, Diabetes Mellitus, End Stage Renal Disease Problem List: (1) ESRD (end stage renal disease) ICD Codes: N18.6 - End-stage renal disease Status: Resolved Plan: 3L UF yesterday. Continue HD on MWF. He has existing HD arrangements in place for discharge purposes. Using AVF left arm for HD Avoid IVF administration, gadolinium in contraindicated High protein diet ordered with protein supplements Repeat labs intermittently. (2) Osteomyelitis ICD Codes: M86.9 - Osteomyelitis, unspecified Status: Acute Plan: ID, podiatry, and vascular following On Unasyn IV, which will need to be continued at discharge s/p bilateral balloon angioplasty Possible L BKA nest . AJAY 01/02: No veg, mild MR and mild TR (3) PAD (peripheral artery disease) ICD Codes: I73.9 - Peripheral vascular disease, unspecified Status: Chronic Plan: See above Needs wound care to left foot/amputation site. (4) Bone metabolism disorder ICD Codes: E88.9 - Metabolic disorder, unspecified; M90.80 - Osteopathy in diseases classified elsewhere, unspecified site Status: Acute Plan: Continue Renvela with meals Advised binder compliance Repeat level intermittently (5) DKA (diabetic ketoacidoses) ICD Codes: E13.10 - Other specified diabetes mellitus with ketoacidosis without coma Status: Acute Plan: Labile blood sugar in the past, recently BG has been controlled. A1c 10.7 On Levemir, he is a Brittle DM 1 Endocrinology has been consulted for assistance in management, unclear if the service is avaialbe at this facility (6) HTN (hypertension) ICD Codes: I10 - Essential (primary) hypertension Status: Chronic Plan: Continue home medications, titrate as needed Permanent Comment: Last Edited By: Jasmyne Bee on Jul 11, 2017 15:31 (7) Anemia ICD Codes: D64.9 - Anemia, unspecified Plan: Epogen with dialysis (8) Hyperkalemia ICD Codes: E87.5 - Hyperkalemia Status: Acute Plan: Improved. Continue to monitor. (Jasmyne Bee) Plan patient was seen and examined. Agree with above assessment and plan. (Maurice Schultz MD) Problem Qualifiers (1) Osteomyelitis: Qualified Codes: M86.8X7 - Other osteomyelitis, ankle and foot (2) DKA (diabetic ketoacidoses): (3) Anemia: Qualified Codes: N18.6 - End stage renal disease; D63.1 - Anemia in chronic kidney disease; Z99.2 - Dependence on renal dialysis Jasmyne Bee Jan 10, 2018 10:22 Maurice Schultz MD Jan 10, 2018 14:26
[2018-01-10 12:00] VITALS: BP 132/63; PULSE 67; RESP 18; TEMP 97.4; O2SAT 96
[2018-01-10 16:00] VITALS: BP 144/66; PULSE 75; RESP 18; TEMP 98.1; O2SAT 97
[2018-01-10] MEDS: chlorproMAZINE HCL 25 MG TAB PO PRN (16:09)
[2018-01-10] MEDS: AMPICILLIN-SULBACTAM INJ 3 GM in SODIUM CHLORIDE 0.9% INJ 100 ML IV SCH (16:18)
--- NOTE | 2018-01-10 16:29 | PD.CONS ---
History of Present Illness Service Endocrinology Consult Requested By Dr. Ceja Reason for Consult Uncontrolled Type 1 diabetes with hypoglycemia Primary Care Physician Naresh Juarez MD Diagnoses: History of Present Illness Mr Aguilera is a 57 y/o Afro martiniqu[place] gentleman with a past medical history significant for type 1 DM complicated by Retinopathy with a Hx of laser treatment, ESRD on HD and PAD who presented to the hospital with confusion, mental status changes and a high potassium as well as a high blood glucose levels. His intrahospital diabetes control has been poor with widely fluctuating blood glucose. Currently he is on a 2000 ADA diet which he is not consuming. He has been eating little and errating. Otherwise he has been requesting snacks in between his meals. He is currently having hypoglycemic events reason for which Endocrinology is consulted. On questioning the patient reports being familiar with carb counting. The patient is currently experiencing allot of hick-ups and would rather not talk hence history is obtained in large part by chart review. Review of Systems ROS Limitations: Uncooperative (patient is currently dealing with hick-ups and would rather not be questioned in detail otherwise also concerned about impending foor amputation) Past Family Social History Allergies: Coded Allergies: No Known Allergies (Verified Allergy, Unknown, 10/16/17) Past Medical History T1DM x 40 years since the age of 16 complicated by retinopathy, PAD and PVD, ESRD and high risk feet status multiple amputations (per chart review Left second toe amputation amputation 07/11/17, L posterior tibial artery angioplasty 09/24/17, I and D L foot 09/28/17, Lt foot transmetatarsal amputation 09/26/17) HTN, COPD Past Surgical History As above plus left arm shunt placement for HD Reported Medications See chart Active Ordered Medications Current Medications Medications (Trade) Dose Ordered Sig/April Route Start Time Stop Time Status Last Admin (NS Flush) 2 ml UNSCH PRN IV FLUSH 12/26/17 01:45 (NS Flush) 2 ml BID IV FLUSH 12/26/17 09:00 01/10/18 08:29 (Protonix) 40 mg DAILY PO 12/26/17 09:00 01/10/18 08:28 (Zofran Inj) 4 mg Q6H PRN IV PUSH 12/26/17 01:45 01/10/18 08:26 Miscellaneous Information 1 Q361D XX 12/26/17 01:45 12/26/17 01:45 (Chlorhexidine 2% Cloth) Taper DAILY@04 TOP 12/26/17 04:00 12/22/18 03:59 01/03/18 04:00 (Chlorhexidine 2% Cloth) 3 pack UNSCH PRN TOP 12/26/17 01:45 (Odette-Colace) 1 tab BID PO 12/26/17 09:00 01/10/18 08:29 (Milk Of Magnesia Liq) 30 ml Q12H PRN PO 12/26/17 01:45 (Senokot) 17.2 mg Q12H PRN PO 12/26/17 01:45 (Dulcolax Supp) 10 mg DAILY PRN RECTAL 12/26/17 01:45 (Lactulose Liq) 30 ml DAILY PRN PO 12/26/17 01:45 (Symbicort 160-4.5 Mcg Inh) 1 puff Q12HR INH 12/26/17 09:00 01/10/18 08:30 (Vitamin D3) 1,000 units DAILY PO 12/26/17 09:00 01/10/18 08:29 (Norvasc) 5 mg DAILY PO 12/26/17 09:00 01/10/18 08:29 (Cymbalta Dr) 30 mg DAILY PO 12/26/17 09:00 01/10/18 08:28 (Albuterol Neb) 2.5 mg Q2HR NEB PRN NEB 12/26/17 07:15 (D50w (Vial) Inj) 50 ml UNSCH PRN IV PUSH 12/26/17 13:00 01/09/18 08:34 (Glucagon Inj) 1 mg UNSCH PRN OTHER 12/26/17 13:00 (NovoLOG SUPPLEMENTAL SCALE) 1 Q4HR SQ 12/26/17 12:47 01/10/18 12:00 Sodium Chloride 1,000 ml @ 0 mls/hr Q0M PRN OTHER 12/26/17 13:45 (Heparin Inj) 8,000 units UNSCH PRN IV FLUSH 12/26/17 13:45 Sodium Chloride 1,000 ml @ 200 mls/hr Q5H PRN IV 12/26/17 13:45 Sodium Chloride 1,000 ml @ 0 mls/hr Q0M PRN OTHER 12/26/17 13:45 (Mannitol Inj) 12.5 gm UNSCH PRN IV 12/26/17 13:45 Albumin Human 100 ml @ 60 mls/hr UNSCH PRN IV 12/26/17 13:45 (NS Flush) 5 ml UNSCH PRN IV FLUSH 12/26/17 13:45 (Heparin Inj) UNSCH PRN .XX 12/26/17 13:45 (Gentamicin Inj) 20 mg UNSCH PRN OTHER 12/26/17 13:45 (Zofran Inj) 4 mg UNSCH PRN IV PUSH 12/26/17 13:45 (Tylenol) 650 mg UNSCH PRN PO 12/26/17 13:45 (Benadryl) 25 mg UNSCH PRN PO 12/26/17 13:45 01/10/18 08:27 (Nitrostat Sl) 0.4 mg UNSCH PRN SL 12/26/17 13:45 12/29/17 08:05 (Catapres) 0.1 mg UNSCH PRN PO 12/26/17 13:45 (Epogen Inj) 10,000 units UNSCH PRN IV PUSH 12/26/17 13:45 01/07/18 11:14 (Gelfoam 12 Mm/7 Mm Top) 1 foam UNSCH PRN TOP 12/26/17 13:45 12/28/17 15:42 (Aspirin Chew) 81 mg DAILY CHEW 12/26/17 15:00 01/10/18 08:29 (Morphine Inj) 2 mg Q3H PRN IV 12/26/17 17:15 12/31/17 04:45 ([place] 7.5-325 Mg) 1 tab Q4H PRN PO 12/27/17 12:15 01/09/18 16:41 (Renvela) 2,400 mg TIDAC PO 12/27/17 17:00 01/10/18 15:55 (Lopressor) 25 mg Q8H PO 12/29/17 08:00 01/10/18 15:55 (Nitroglycerin 2% Oint) 1 inch Q8H TOPICAL 12/29/17 08:00 01/10/18 15:55 (Atropine Inj) 0.5 mg UNSCH PRN IV PUSH 12/29/17 09:45 Ampicillin Sodium/ Sulbactam Sodium 3 gm/Sodium Chloride 100 ml @ 200 mls/hr Q24H IV 12/31/17 18:00 01/10/18 16:18 (Thorazine) 25 mg Q8H PRN PO 01/10/18 14:00 01/10/18 16:09 (Levemir Inj) 5 units Q12HR SQ 01/10/18 21:00 Active Medications Chlorpromazine (Thorazine) 25 mg Q8H PRN PO Last administered on 01/10/18at 16: 09; Admin Dose 25 MG; Start 01/10/18 at 14:00 Insulin Detemir (Levemir Inj) 5 units Q12HR SQ; Start 01/10/18 at 21:00 See chart Family History per chart review has history of premature CAD and dyslipidemia. Social History Patient is single, has a history of smoking in the past up to a couple of years ago per his report. Otherwise denies history of ETOH or recreational Drug use. He is from out of [facility] and is now living in a NH here in [place]. He is currently unemployed. Physical Exam Vital Signs Vital Signs Date Time Temp Pulse Resp B/P (MAP) Pulse Ox O2 Delivery O2 Flow Rate FiO2 01/10/18 12:00 97.4 67 18 132/63 (86) 96 01/10/18 08:00 70 20 143/65 (91) 100 01/10/18 04:00 97.6 72 18 147/70 (95) 100 01/10/18 00:00 97.6 82 18 135/65 (88) 96 01/09/18 20:00 100.3 76 18 143/65 (91) 100 01/09/18 16:00 98.2 85 20 151/65 (93) 100 Physical Exam GENERAL: This is a slender Afro Haitian Man in no acute distress having issues with heaves. SKIN: No rashes, ecchymoses or lesions. Cool and dry. HEAD: Atraumatic. Normocephalic. No temporal or scalp tenderness. EYES: Extraocular motions intact. No scleral icterus. No injection or drainage. ENT: Nose without bleeding, purulent drainage. Airway patent. NECK: Trachea midline. No JVD or lymphadenopathy. Thyroid is not palpable. CARDIOVASCULAR: Regular rate and rhythm with LINDA over precordium. RESPIRATORY: Clear to auscultation. Breath sounds equal bilaterally. No wheezes , rales, or rhonchi. GASTROINTESTINAL: Abdomen soft, non-tender, nondistended. No hepato-splenomegaly , or palpable masses. No guarding. MUSCULOSKELETAL: Extremities status post surgical history. Bandaged. Limited exam. . NEUROLOGICAL: Awake and alert. Cranial nerves II through XII appear to be intact. Motor grossly within normal limits. Normal speech. Laboratory Allergies Coded Allergies No Known Allergies (Verified Allergy, Unknown, 10/16/17) Vital Signs Date Time Temp Pulse Resp B/P (MAP) Pulse Ox O2 Delivery O2 Flow Rate FiO2 01/10/18 12:00 97.4 67 18 132/63 (86) 96 Laboratory Tests Test 01/08/18 05:54 01/09/18 09:17 Random Glucose 167 MG/DL (74-106) White Blood Count 13.6 TH/MM3 (4.0-11.0) Red Blood Count 3.90 MIL/MM3 (4.50-5.90) Hemoglobin 9.0 GM/DL (13.0-17.0) Hematocrit 29.1 % (39.0-51.0) Mean Corpuscular Volume 74.7 FL (80.0-100.0) Mean Corpuscular Hemoglobin 23.1 PG (27.0-34.0) Mean Corpuscular Hemoglobin Concent 31.0 % (32.0-36.0) Red Cell Distribution Width 21.5 % (11.6-17.2) Neutrophils (%) (Auto) 82.3 % (16.0-70.0) Lymphocytes (%) (Auto) 5.9 % (9.0-44.0) Monocytes (%) (Auto) 10.0 % (0.0-8.0) Neutrophils # (Auto) 11.2 TH/MM3 (1.8-7.7) Lymphocytes # (Auto) 0.8 TH/MM3 (1.0-4.8) Monocytes # (Auto) 1.4 TH/MM3 (0-0.9) Blood Urea Nitrogen 62 MG/DL (7-18) Creatinine 9.22 MG/DL (0.60-1.30) Albumin 2.1 GM/DL (3.4-5.0) Sodium Level 135 MEQ/L (136-145) Potassium Level 5.2 MEQ/L (3.5-5.1) Chloride Level 95 MEQ/L (98-107) Estimat Glomerular Filtration Rate 7 ML/MIN (>89) Date/Time Source Procedure Growth Status 12/26/17 04:45 Blood Peripheral Aerobic Blood Culture - Final NO GROWTH IN 5 DAYS Complete 12/26/17 04:45 Blood Peripheral Anaerobic Blood Culture - Final NO GROWTH IN 5 DAYS Complete Blood sugars also reviewed as well as rest of labs in chart. Result Diagram: 01/09/1891601/09/18916 Assessment and Plan Assessment and Plan Uncontrolled T1DM ESRD PAD * Currently recommend a stable carb intake of 45 grams of carbs at each meal * Non carbohydrate snacks in between meals. * Will recommend we hold the sliding scale for now and give just 2 units of Novolog insulin before each meal three times a day and continue with the current dose of Levemir insulin. * Recommend to continue testing before each meal and at bedtime. * Will follow * Thank you for allowing me to participate in the medical care of your the patient. José Luis Washington MD Jan 10, 2018 16:29
[2018-01-10 20:00] VITALS: BP 136/65; PULSE 71; RESP 20; TEMP 98; O2SAT 100
[2018-01-10] MEDS: INSULIN DETEMIR 100 UNITS/ML VIAL SQ SCH (21:02)
[2018-01-11] VITALS: BP 149/66; PULSE 72; RESP 20; TEMP 98; O2SAT 99
[2018-01-11] MEDS: NITROGLYCERIN 2% OINT 1 GM PACKET TOPICAL SCH ×4 (00:14→23:22)
[2018-01-11] MEDS: METOPROLOL TARTRATE 25 MG TAB PO SCH ×4 (00:14→23:22)
[2018-01-11] MEDS: chlorproMAZINE HCL 25 MG TAB PO PRN (00:16)
[2018-01-11] MEDS: ACETAMINOPHEN/HYDROcodone 325 MG/7.5 MG TAB PO PRN ×3 (01:47→16:57)
[2018-01-11] MEDS: CHLORHEXIDINE GLUCONATE 2 % 1 PACK (2 CLOTHS) TOP SCH (04:00)
[2018-01-11 08:00] VITALS: BP 142/61; PULSE 63; RESP 16; TEMP 97.8; O2SAT 99
[2018-01-11] MEDS: INSULIN ASPART 1,000 UNITS/10 ML VIAL SQ SCH ×3 (08:12→16:58)
[2018-01-11] MEDS: INSULIN DETEMIR 100 UNITS/ML VIAL SQ SCH ×2 (08:12→21:03)
--- NOTE | 2018-01-11 08:26 | HHI.PR ---
Subjective Remarks in no acute distress. denies pain. no new complaints. blood sugar trend noted. Objective Vitals Vital Signs Date Time Temp Pulse Resp B/P (MAP) Pulse Ox O2 Delivery O2 Flow Rate FiO2 01/11/18 00:00 98.0 72 20 149/66 (93) 99 01/10/18 20:00 98.0 71 20 136/65 (88) 100 01/10/18 16:00 98.1 75 18 144/66 (92) 97 01/10/18 12:00 97.4 67 18 132/63 (86) 96 I/O 01/10/18 01/10/18 01/10/18 01/11/18 01/11/18 01/11/18 07:00 15:00 23:00 07:00 15:00 23:00 Intake Total 360 ml 640 ml 0 ml Output Total 0 ml Balance 360 ml 640 ml 0 ml Intake Oral 360 ml 640 ml 0 ml Output Urine Total 0 ml # Voids 0 0 # Bowel Movements 0 2 Result Diagram: 01/09/18 0917 01/09/18 0917 Imaging Last Impressions Chest X-Ray 01/09/18 0000 Signed Impressions: Service Date/Time: Tuesday, January 09, 2018 15:16 - CONCLUSION: No acute disease. No significant change has occurred. Mild cardiomegaly Brian Yu MD Foot X-Ray 12/26/17 0000 Signed Impressions: Service Date/Time: Tuesday, December 26, 2017 07:29 - CONCLUSION: 1. Findings concerning for osteomyelitis involving the tuft of the first toe. Phani Vasquez MD Head CT 12/25/172124 Signed Impressions: Service Date/Time: Monday, December 25, 2017 22:22 - CONCLUSION: No acute intracranial abnormality demonstrated. Eliu Ayala MD Objective Remarks GENERAL: This is a well-nourished, well-developed patient, in no apparent distress. CARDIOVASCULAR: Regular rate and regular rhythm without murmurs, gallops, or rubs. RESPIRATORY: Clear to auscultation. Breath sounds equal bilaterally. No wheezes , rales, or rhonchi. GASTROINTESTINAL: Abdomen soft, non-tender, nondistended. Normal, active bowel sounds MUSCULOSKELETAL: gangrene of the left foot. NEURO: Alert & Oriented x4 to person, place, time, situation. Moves all ext x4 Medications and IVs Inpatient Medications Acetaminophen (Tylenol) 650 mg UNSCH PRN PO for headach, pain, temp > 101F; Start 12/26/17 at 13:45 Acetaminophen/ Hydrocodone Bitart ([place] 7.5-325 Mg) 1 tab Q4H PRN PO pain 1- 4 Last administered on 01/11/18at 01:47; Start 12/27/17 at 12:15 Albumin Human 100 ml @ 60 mls/hr UNSCH PRN IV WITH DIALYSIS; Start 12/26/17 at 13:45 Albuterol Sulfate (Albuterol Concentrated Neb) 10 mg ONCE ONCE INH Last administered on 12/25/17at 21:14; Start 12/25/17 at 21:00; Stop 12/25/17 at 21:01 ; Status DC Albuterol Sulfate (Albuterol Neb) 2.5 mg Q2HR NEB PRN NEB WHEEZING; Start 12/26 at 07:15 Amlodipine Besylate (Norvasc) 5 mg DAILY PO Last administered on 01/10/18at 08: 29; Start 12/26/17 at 09:00 Ampicillin Sodium/ Sulbactam Sodium 3 gm/Sodium Chloride 100 ml @ 200 mls/hr Q24H IV Last administered on 01/10/18at 16:18; Start 12/31/17 at 18:00 Aspirin (Aspirin Chew) 81 mg DAILY CHEW Last administered on 01/10/18at 08:29; Start 12/26/17 at 15:00 Aspirin (Aspirin) 325 mg WELDER APPRENTICE ARC PO ; Start 12/29/17 at 09:00; Stop 01/02/18 at 08:59; Status DC Atropine Sulfate (Atropine Inj) 0.5 mg UNSCH PRN IV PUSH VAGAL REPONSE; Start 12/29/17 at 09:45 Bacitracin (Bacitracin Oint Packet) 0.9 gm ONCE ONCE TOP ; Start 12/29/17 at 09 :45; Stop 12/29/17 at 09:50; Status DC Bisacodyl (Dulcolax Supp) 10 mg DAILY PRN RECTAL SEVERE CONSITIPATION; Start at 01:45 Budesonide/ Formoterol Fumarate (Symbicort 160-4.5 Mcg Inh) 1 puff Q12HR INH Last administered on 01/10/18 21:03; Start 12/26/17 at 09:00 Calcium Gluconate (Calcium Gluconate Inj) 2 gm ONCE ONCE SLOW IVP Last administered on 12/25/17 21:18; Start 12/25/17 at 21:00; Stop 12/25/17 at 21:01 ; Status DC Chlorhexidine Gluconate (Chlorhexidine 2% Cloth) 3 pack WELDER APPRENTICE ARC PRN TOPICAL SEE LABEL COMMENTS; Start 12/31/17 at 00:45; Stop 01/03/18 at 00:44; Status DC Chlorpromazine (Thorazine) 25 mg Q8H PRN PO HICCOUGHS Last administered on 01/11 00:16; Start 01/10/18 at 14:00 Cholecalciferol (Vitamin D3) 1,000 units DAILY PO Last administered on 08:29; Start 12/26/17 at 09:00 Ciprofloxacin (Cipro) 500 mg Q12HR PO ; Start 12/26/17 at 09:00; Stop 12/26/17 at 09:00; Status DC Clonidine (Catapres) 0.1 mg UNSCH PRN PO for BP > 180/100 X 2 readings; Start 12/26/17 at 13:45 Dextrose (D50w (Syr) Inj) 50 ml ONCE ONCE IV ; Start 12/26/17 at 07:30; Stop at 07:31; Status DC Dextrose (D50w (Vial) Inj) 50 ml UNSCH PRN IV PUSH HYPOGLYCEMIA - SEE COMMENTS Last administered on 01/09/18at 08:34; Start 12/26/17 at 13:00 Diphenhydramine HCl (Benadryl) 25 mg UNSCH PRN PO for hives/itching/ anaphylaxis Last administered on 01/10/18 08:27; Start 12/26/17 at 13:45 Duloxetine HCl (Cymbalta Dr) 30 mg DAILY PO Last administered on 01/10/18at 08: 28; Start 12/26/17 at 09:00 Epoetin Marco A (Epogen Inj) 10,000 units UNSCH PRN IV PUSH WITH DIALYSIS Last administered on 01/07/18at 11:14; Start 12/26/17 at 13:45 Fentanyl Citrate (fentaNYL INJ) 50 mcg WELDER APPRENTICE ARC IV PUSH ; Start 12/29/17 at 09: 00; Stop 01/02/18 at 08:59; Status DC Fluconazole (Diflucan) 200 mg DAILY PO Last administered on 12/27/17at 08:09; Start 12/26/17 at 09:00; Stop 12/27/17 at 10:45; Status DC Gelatin (Gelfoam 12 Mm/7 Mm Top) 1 foam UNSCH PRN TOP SEE LABEL COMMENTS Last administered on 12/28/17at 15:42; Start 12/26/17 at 13:45 Gentamicin Sulfate (Gentamicin Inj) 20 mg UNSCH PRN OTHER WITH DIALYSIS; Start 12/26/17 at 13:45 Glucagon (Glucagon Inj) 1 mg UNSCH PRN OTHER HYPOGLYCEMIA-SEE COMMENTS; Start 12/26/17 at 13:00 Heparin Sodium (Porcine) (Heparin Inj) UNSCH PRN .XX WITH DIALYSIS; Start at 13:45 Insulin Aspart (NovoLOG SUPPLEMENTAL SCALE) 1 Q4HR SQ Last administered on 01/10at 16:00; Start 12/26/17 at 12:47; Status Future Hold Insulin Aspart (NovoLOG INJ) 2 units TIDAC SQ Last administered on 01/11/18at 08 :12; Start 01/11/18 at 08:00 Insulin Detemir (Levemir Inj) 5 units Q12HR SQ Last administered on 01/11/18at 08:12; Start 01/10/18 at 21:00 Insulin Human Regular (NovoLIN R INJ) 20 units NOW ONCE SQ Last administered on 12/29/17at 12:00; Start 12/29/17 at 12:45; Stop 12/29/17 at 12:46; Status DC Insulin Human Regular 100 units/ Sodium Chloride 100 ml @ 6.5 mls/hr TITRATE PRN IV Blood Sugar Management Last administered on 12/25/17at 22:40; Start at 21:30; Stop 12/26/17 at 12:45; Status DC Iohexol 50 ml @ 0 mls/hr ONCE ONCE IV Last administered on 12/31/17at 08:00; Start 12/31/17 at 08:00; Stop 12/31/17 at 08:12; Status DC Ketorolac Tromethamine (Toradol Inj) 15 mg Q8HR PRN IM CHEST PAIN; Start at 10:00; Stop 01/03/18 at 09:59; Status DC Lactated Ringer's 1,000 ml @ 30 mls/hr Q24H PRN IV SEE LABEL COMMENTS; Start at 00:45; Stop 01/03/18 at 00:44; Status DC Lactulose (Lactulose Liq) 30 ml DAILY PRN PO SEVERE CONSITIPATION; Start at 01:45 Magnesium Hydroxide (Milk Of Magnesia Liq) 30 ml Q12H PRN PO Mild constipation ; Start 12/26/17 at 01:45 Mannitol (Mannitol Inj) 12.5 gm UNSCH PRN IV WITH DIALYSIS; Start 12/26/17 at 13:45 Metoprolol Tartrate (Lopressor Inj) 2.5 mg ONCE PRN IV PUSH ANGINA Last administered on 12/29/17at 08:16; Start 12/29/17 at 08:00; Stop 12/29/17 at 23:00 ; Status DC Metoprolol Tartrate (Lopressor) 25 mg Q8H PO Last administered on 01/11/18at 00: 14; Start 12/29/17 at 08:00 Midazolam HCl (Versed Inj) 1 mg WELDER APPRENTICE ARC IV PUSH ; Start 12/29/17 at 09:00; Stop 01/02/18 at 08:59; Status DC Miscellaneous Information ALL NURSING DEPARTME... UNSCH PRN .XX SEE LABEL COMMENTS; Start 12/31/17 at 10:15; Stop 01/01/18 at 10:14; Status DC Morphine Sulfate (Morphine Inj) 2 mg Q3H PRN IV pain 5-10 Last administered on 12/31/17at 04:45; Start 12/26/17 at 17:15 Nitroglycerin (Nitroglycerin 2% Oint) 1 inch Q8H TOPICAL Last administered on at 00:14; Start 12/29/17 at 08:00 Nitroglycerin (Nitrostat Sl) 0.4 mg UNSCH PRN SL CHEST PAIN Last administered on 12/29/17at 08:05; Start 12/26/17 at 13:45 Ondansetron HCl (Zofran Inj) 4 mg UNSCH PRN IV PUSH WITH DIALYSIS; Start at 13:45 Pantoprazole Sodium (Protonix) 40 mg DAILY PO Last administered on 01/10/18at 08 :28; Start 12/26/17 at 09:00 Piperacillin Sod/ Tazobactam Sod 50 ml @ 100 mls/hr Q8H IV Last administered on 12/31/17at 11:19; Start 12/26/17 at 12:00; Stop 12/31/17 at 13:25; Status DC Povidone Iodine (Betadine 5% Antisepsis Kit) 1 applic WELDER APPRENTICE ARC PRN EACH NARE SEE LABEL COMMENTS; Start 12/31/17 at 00:45; Stop 01/03/18 at 00:44; Status DC Senna/Docusate Sodium (Odette-Colace) 1 tab BID PO Last administered on at 21:02; Start 12/26/17 at 09:00 Sennosides (Senokot) 17.2 mg Q12H PRN PO Moderate constipation; Start 12/26/17 at 01:45 Sevelamer Carbonate (Renvela) 2,400 mg TIDAC PO Last administered on 01/10/18at 15:55; Start 12/27/17 at 17:00 Sodium Polystyrene Sulfonate (Kayexalate Liq) 15 gm ONCE ONCE PO ; Start at 21:00; Stop 12/25/17 at 21:01; Status DC Sodium Bicarbonate (Sodium Bicarbonate 8.4% Inj) 50 meq ONCE ONCE SLOW IVP Last administered on 12/25/17at 21:30; Start 12/25/17 at 21:30; Stop 12/25/17 at 21:31; Status DC Sodium Chloride 500 ml @ 30 mls/hr [id number] PRN IV SEE LABEL COMMENTS; Start at 00:45; Stop 01/03/18 at 00:44; Status DC Sodium Chloride (NS Flush) 2 ml UNSCH PRN IV FLUSH FLUSH AFTER USING IV ACCESS ; Start 12/29/17 at 09:45; Stop 12/29/17 at 09:52; Status DC A/P Problem List: (1) PAD (peripheral artery disease) ICD Code: I73.9 - Peripheral vascular disease, unspecified Status: Chronic (2) Diabetic nephropathy ICD Code: E11.21 - Diabetic nephropathy Status: Chronic (3) CKD (chronic kidney disease) stage V requiring chronic dialysis ICD Code: N18.6 - End stage renal disease; Z99.2 - Dependence on renal dialysis Status: Chronic (4) Dyslipidemia ICD Code: E78.5 - Dyslipidemia Status: Chronic (5) DM (diabetes mellitus) ICD Code: E11.9 - Type 2 diabetes mellitus without complications Status: Chronic (6) HTN (hypertension) ICD Code: I10 - Essential (primary) hypertension Status: Chronic Permanent Comment: Last Edited By: Jasmyne Bee on Jul 11, 2017 15:31 (7) PAD (peripheral artery disease) ICD Code: I73.9 - Peripheral vascular disease, unspecified Status: Chronic (8) Ischemic ulcer diabetic foot ICD Code: E11.621 - Type 2 diabetes mellitus with foot ulcer; L97.509 - Non- pressure chronic ulcer of other part of unspecified foot with unspecified severity Status: Acute (9) ESRD on hemodialysis ICD Code: N18.6 - End stage renal disease; Z99.2 - Dependence on renal dialysis Status: Chronic (10) COPD (chronic obstructive pulmonary disease) ICD Code: J44.9 - Chronic obstructive pulmonary disease, unspecified Status: Chronic (11) DKA (diabetic ketoacidoses) ICD Code: E13.10 - Other specified diabetes mellitus with ketoacidosis without coma Status: Acute (12) Encephalopathy acute ICD Code: G93.40 - Encephalopathy, unspecified Status: Acute (13) Osteomyelitis ICD Code: M86.9 - Osteomyelitis, unspecified Status: Acute Assessment and Plan 1. Acute toxic metabolic encephalopathy/Peripheral Neuropathy/Depression Resolved CT brain negative. 2. COPD/Tobacco dependence on Symbicort 160/4.5 2 puffs inhaled twice a day 3. Hypertension/Peripheral Artery Disease/Ischemic distal digits status post Left posterior tibial artery angioplasty 09/24/17 Dr Ortiz Amlodipine 5 mg daily and Lisinopril 10 mg daily 4. ESRD on Hemodialysis M/W/F, Nephrology specialist following 5. Osteomyelitis of the left foot Left second toe amputation 07/11/17 Left Posterior tibial artery angioplasty 09/24/17 I and D Left foot 09/28/17 left foot transmetatarsal amputation 09/26/17 Dr. Judge Poor wound healing and dry gangrene as well as probable wet gangrene noted ID and podiatry ff treated with Unasyn IV, status post Zosyn s/p bilateral angiogram with balloon angioplasty 12/31/17 AJAY negative for endocarditis 01/02/18 previously d/w the vascular surgery and plan for left foot amputation next week. 6- digital ischemia -right hand d/w the vascular surgery today; work-up as outpatient per vascular surgery. 7. Anemia of chronic disease Stable. 8. DKA resolved/DM - with hypoglycemic episodes. resume levemir- added premeal Novolog- monitor accu-checks closely- endocrinology consult appreciated. 9.elevated troponin - likely due to acute pericarditis/ renal failure [facility] without any hemodynamically significant epicardial coronary artery disease. PROPH: Heparin 5000 units subcutaneous every 12 hours for DVT prophylaxis. Protonix 40 mg by mouth daily Discharge Planning dc to SNF within the next 24 hrs if stable. f/u; pcp,vascular surgery , nephrology and endocrinology. Problem Qualifiers (1) DKA (diabetic ketoacidoses): (2) Osteomyelitis: Qualified Codes: M86.8X7 - Other osteomyelitis, ankle and foot Ebony Michel MD Jan 11, 2018 08:26
[2018-01-11] MEDS ORDERED: ASPI81 CHEW (08:30)
[2018-01-11] MEDS ORDERED: SEVEL800 PO (08:30)
[2018-01-11] MEDS ORDERED: METO25TA3 PO (08:30)
[2018-01-11] MEDS: BUDESONIDE-FORMOTEROL 160/4.5 MCG INHALER INH SCH ×2 (09:00→20:56)
[2018-01-11] MEDS: SODIUM CHLORIDE 0.9% FLUSH 10 ML FLUSH IV FLUSH SCH ×2 (09:00→20:55)
[2018-01-11] MEDS: EPOETIN ALFA 10,000 UNITS/ML VIAL IV PUSH PRN (09:03)
[2018-01-11] MEDS: GELATIN 12 MM/7 MM FOAM TOP PRN (09:03)
--- NOTE | 2018-01-11 10:07 | HHI.NPPN ---
Subjective General Problems: Anemia, Diabetes Renal Failure: Chronic, End Stage Renal Disease Interval History He is afebrile. Seen during dialysis. He has been evaluated by endocrinology. (Jasmyne Bee) Review of Systems Musculoskeletal MS: Pain/Stiffness (Jasmyne Bee) Skin Skin: Ulcers Skin Remarks right great toe, left MFA skin changes, non healing (Jasmyne Bee) Objective Data Data Vital Signs Date Time Temp Pulse Resp B/P (MAP) Pulse Ox O2 Delivery O2 Flow Rate FiO2 01/11/18 00:00 98.0 72 20 149/66 (93) 99 01/10/18 20:00 98.0 71 20 136/65 (88) 100 01/10/18 16:00 98.1 75 18 144/66 (92) 97 01/10/18 12:00 97.4 67 18 132/63 (86) 96 (Jasmyne Bee) -: 01/09/18 0917 01/09/18 0917 Imaging Last 72 hours Impressions Chest X-Ray 01/09/18 0000 Signed Impressions: Service Date/Time: Tuesday, January 09, 2018 15:16 - CONCLUSION: No acute disease. No significant change has occurred. Mild cardiomegaly Brian Yu MD Tubes & Lines Comment Ta right chest (Jasmyne Bee) Physical Exam General Appearance: Well Developed, Well Nourished, No Acute Distress, Comfortable, Sleeping (Jasmyne Bee) Eyes Eye Exam: Pupils Equal (Jasmyne Bee) Neck Neck Exam: Neck Supple (Jasmyne Bee) Pulmonary Resp Exam: Clear Bilaterally, Breath Sounds Equal (Jasmyne Bee) Cardiology CV Exam: Regular, Normal Sinus Rhythm (Jasmyne Bee) Gastrointestinal/Abdomen GI Exam: Soft, Non-Tender, Bowel Sounds Present (Jasmyne Bee) Musculoskeletal MS Exam: Joints Intact, Good Strength MS Remarks left midfoot amputation, no skin flap bone visible, dark edges with gangrene/eschar; brenda intact (Jasmyne Bee) Integumentary Skin Exam: Warm, Dry Skin Remarks see above right great toe with nail changes. ischemic tip of hand, R 1-3rd digits discolored/dark, radial pulse strong on right (Jasmyne Bee) Extremeties Extremities Exam: No Edema, Pedal Pulses Palpable Extremeties Remarks left AVF +thrill, bruit (Jasmyne Bee) Neurologic Neuro Exam: Alert, Awake, Oriented, Speech Clear, Moving All Extremities (Jasmyne Bee) Psychiatric Psych Exam: Appropriate Responses (Jasmyne Bee) Assessment/Plan Discussed Condition With: Patient Assessment Summary: Anemia of CKD, Hypertension, Diabetes Mellitus, End Stage Renal Disease Problem List: (1) ESRD (end stage renal disease) ICD Codes: N18.6 - End-stage renal disease Status: Resolved Plan: Seen during HD today on a 2K, 330 BFR, goal 2 L Continue HD on MWF. He has existing HD arrangements in place for discharge purposes. Using AVF left arm for HD Avoid IVF administration, gadolinium in contraindicated High protein diet ordered with protein supplements Repeat labs intermittently. (2) Osteomyelitis ICD Codes: M86.9 - Osteomyelitis, unspecified Status: Acute Plan: ID, podiatry, and vascular following On Unasyn IV, which will need to be continued at discharge s/p bilateral balloon angioplasty Possible L BKA nest . AJAY 01/02: No veg, mild MR and mild TR (3) PAD (peripheral artery disease) ICD Codes: I73.9 - Peripheral vascular disease, unspecified Status: Chronic Plan: See above Needs wound care to left foot/amputation site. (4) Bone metabolism disorder ICD Codes: E88.9 - Metabolic disorder, unspecified; M90.80 - Osteopathy in diseases classified elsewhere, unspecified site Status: Acute Plan: Continue Renvela with meals Advised binder compliance Repeat level intermittently (5) DKA (diabetic ketoacidoses) ICD Codes: E13.10 - Other specified diabetes mellitus with ketoacidosis without coma Status: Acute Plan: Labile blood sugar in the past, recently BG has been controlled. A1c 10.7 On Levemir, he is a Brittle DM 1 Endocrinology has been evaluated and given recommendations on insulin and dietary intake (6) HTN (hypertension) ICD Codes: I10 - Essential (primary) hypertension Status: Chronic Plan: Continue home medications, titrate as needed Permanent Comment: Last Edited By: Jasmyne Bee on Jul 11, 2017 15:31 (7) Anemia ICD Codes: D64.9 - Anemia, unspecified Plan: Epogen with dialysis (8) Hyperkalemia ICD Codes: E87.5 - Hyperkalemia Status: Acute Plan: Improved. Continue to monitor. Plan cleared for discharge from renal perspective. (Jasmyne Bee) Plan patient was seen and examined during dialysis. Agree with above assessment and plan. (Maurice Schultz MD) Problem Qualifiers (1) Osteomyelitis: Qualified Codes: M86.8X7 - Other osteomyelitis, ankle and foot (2) DKA (diabetic ketoacidoses): (3) Anemia: Qualified Codes: N18.6 - End stage renal disease; D63.1 - Anemia in chronic kidney disease; Z99.2 - Dependence on renal dialysis Jasmyne Bee Jan 11, 2018 10:07 Maurice Schultz MD Jan 11, 2018 10:09
[2018-01-11] MEDS: SEVELAMER CARBONATE 800 MG TAB PO SCH ×3 (12:00→16:57)
[2018-01-11] MEDS: PANTOPRAZOLE SOD 40 MG DELAYED RELEASE TAB PO SCH (12:45)
[2018-01-11] MEDS: CHOLECALCIFEROL (VIT D3) 1000 UNIT TAB PO SCH (12:45)
[2018-01-11] MEDS: ASPIRIN 81 MG CHEW TAB CHEW SCH (12:45)
[2018-01-11] MEDS: DOCUSATE SODIUM 50 MG/SENNA 8.6 MG TAB PO SCH ×2 (12:45→20:55)
[2018-01-11] MEDS: DULoxetine HCl DR 30 MG CAP PO SCH (12:46)
[2018-01-11] MEDS: amLODIPine BESYLATE 5 MG TAB PO SCH (12:48)
[2018-01-11 16:00] VITALS: BP 132/64; PULSE 83; RESP 16; TEMP 98; O2SAT 100
[2018-01-11] MEDS: AMPICILLIN-SULBACTAM INJ 3 GM in SODIUM CHLORIDE 0.9% INJ 100 ML IV SCH (16:57)
--- NOTE | 2018-01-11 19:17 | HHI.IDPN ---
Subjective Subjective Remarks pt was seen earlier today no fever Antibiotics Amp/S Lines Line sites with no e.o infection Past Medical History reviewed Allergies: Coded Allergies: No Known Allergies (Verified Allergy, Unknown, 10/16/17) Objective . Vital Signs Date Time Temp Pulse Resp B/P (MAP) Pulse Ox O2 Delivery O2 Flow Rate FiO2 01/11/18 16:00 98.0 83 16 132/64 (86) 100 01/11/18 08:00 97.8 63 16 142/61 (88) 99 01/11/18 00:00 98.0 72 20 149/66 (93) 99 01/10/18 20:00 98.0 71 20 136/65 (88) 100 01/11/18 01/11/18 01/12/18 15:00 23:00 07:00 Intake Total 800 ml Output Total 2500 ml Balance -2500 ml 800 ml Intake Oral 800 ml Hemodialysis 2500 ml # Voids 0 # Bowel Movements 0 Imaging Last Impressions Foot X-Ray 12/26/17 0000 Signed Impressions: Service Date/Time: Tuesday, December 26, 2017 07:29 - CONCLUSION: 1. Findings concerning for osteomyelitis involving the tuft of the first toe. Phani Vasquez MD Head CT [id number] Signed Impressions: Service Date/Time: Monday, December 25, 2017 22:22 - CONCLUSION: No acute intracranial abnormality demonstrated. Eliu Ayala MD Chest X-Ray 12/[id number]/[id number] Signed Impressions: Service Date/Time: Monday, December 25, 2017 20:45 - CONCLUSION: No evidence of acute cardiopulmonary disease. Eliu Ayala MD Physical Exam GENERAL: This is a well-nourished, well-developed patient, in no apparent distress. SKIN: No rashes, ecchymoses or lesions. Cool and dry. HEAD: Atraumatic. Normocephalic. No temporal or scalp tenderness. CARDIOVASCULAR: S1 S2 systolic murmur + S3 RESPIRATORY: Clear to auscultation. Breath sounds equal bilaterally. No wheezes , rales, or rhonchi. GASTROINTESTINAL: Abdomen soft, non-tender, nondistended. MUSCULOSKELETAL: Right great toe with ? amputation of tip with blackening of margins noted. Right forefoot amputation site with progressive dry gangrenous changes. None healing No odor 1-3 finger R hand with evolving dry gangrenous changes - no new lesions L fingertip duskiness resolved NEUROLOGICAL:Awake, alert Nont focal Moves all 4 extremities. Psych cooperative IV line sites with no e.o infection. HD cath site with no e.o infection. Assessment & Plan Remarks Osteomyelitis L foot (L second toe amputation 07/11/17 L posterior tibial artery angioplasty 09/24/17 I and D L foot 09/28/17 Left foot transmetatarsal amputation 09/26/17 (Dr. Judge) Peripheral arterial disease s/p L posterior tibial artery angioplasty Dr. Ortiz Leukocytosis: reactive, infection. DKA, Diabetes mellitus with Neuropathy and Nephropathy. ESRD on hemodialysis Acute metabolic encephalopathy: DKA, sepsis, ? meningitis workup if AMS persists. Peripheral neuropathy COPD, Prior tobacco abuse HTN' Multiple gangrenous finger tips on b/l hands ? embolic ? vasculitis - AJAY negative Recs: Cont Unasyn IV consider w/u for BUE vasc insufficiency Pt's issues are primarily vascular at this point and he is not likley to heal his R TMA site agree with plan for BKA Pt scheduled for a LEFT BKA on 01/17/18 w/ Vianey Davis MD Jan 11, 2018 19:17
[2018-01-11 20:00] VITALS: BP 150/68; PULSE 86; RESP 20; TEMP 98.3; O2SAT 98
[2018-01-12] VITALS: BP 158/75; PULSE 100; RESP 20; TEMP 98.3; O2SAT 98
[2018-01-12] MEDS ORDERED: INSULIN ASPART 1,000 UNITS/10 ML VIAL SQ ONE (01:30)
[2018-01-12] MEDS: CHLORHEXIDINE GLUCONATE 2 % 1 PACK (2 CLOTHS) TOP SCH ×2 (04:00→21:23)
[2018-01-12] MEDS: ACETAMINOPHEN/HYDROcodone 325 MG/7.5 MG TAB PO PRN ×5 (06:10→21:19)
[2018-01-12 08:00] VITALS: BP 161/79; PULSE 84; RESP 17; TEMP 98.1; O2SAT 99
--- NOTE | 2018-01-12 09:28 | HHI.NPPN ---
Subjective General Problems: Anemia, Diabetes Renal Failure: Chronic, End Stage Renal Disease Additional Remarks Patient is alert, no SOB, want to go home, no left foot pain. Review of Systems Musculoskeletal MS: Pain/Stiffness Skin Skin: Ulcers Skin Remarks right great toe, left MFA skin changes, non healing Objective Data Data Vital Signs Date Time Temp Pulse Resp B/P (MAP) Pulse Ox O2 Delivery O2 Flow Rate FiO2 01/12/18 08:00 98.1 84 17 161/79 (106) 99 01/12/18 00:00 98.3 100 20 158/75 (102) 98 01/11/18 20:00 98.3 86 20 150/68 (95) 98 01/11/18 16:00 98.0 83 16 132/64 (86) 100 -: 01/09/18 0917 01/12/18 0009 Tubes & Lines Comment Ta right chest Physical Exam General Appearance: Well Nourished, No Acute Distress, Comfortable Eyes Eye Exam: Pupils Equal Neck Neck Exam: Neck Supple Pulmonary Resp Exam: Clear Bilaterally, Breath Sounds Equal Cardiology CV Exam: Regular, Normal Sinus Rhythm Gastrointestinal/Abdomen GI Exam: Soft, Non-Tender, Bowel Sounds Present Musculoskeletal MS Exam: Joints Intact, Good Strength Integumentary Skin Exam: Warm, Dry Extremeties Extremities Exam: Trace Edema Extremeties Remarks Left foot with dressing. Neurologic Neuro Exam: Alert, Awake, Oriented, Speech Clear, Moving All Extremities Psychiatric Psych Exam: Appropriate Responses Assessment/Plan Discussed Condition With: Patient Assessment Summary: Anemia of CKD, Hypertension, Diabetes Mellitus, End Stage Renal Disease Problem List: (1) ESRD (end stage renal disease) ICD Codes: N18.6 - End-stage renal disease Status: Resolved Plan: Continue HD on MWF. He has existing HD arrangements in place for discharge purposes. Using AVF left arm for HD Avoid IVF administration, gadolinium in contraindicated High protein diet ordered with protein supplements HD done yesterday. Schedule for Left BKA next week. (2) Osteomyelitis ICD Codes: M86.9 - Osteomyelitis, unspecified Status: Acute Plan: ID, podiatry, and vascular following On Unasyn IV, which will need to be continued at discharge s/p bilateral balloon angioplasty Possible L BKA nest . AJAY 01/02: No veg, mild MR and mild TR (3) PAD (peripheral artery disease) ICD Codes: I73.9 - Peripheral vascular disease, unspecified Status: Chronic Plan: See above Needs wound care to left foot/amputation site. (4) Bone metabolism disorder ICD Codes: E88.9 - Metabolic disorder, unspecified; M90.80 - Osteopathy in diseases classified elsewhere, unspecified site Status: Acute Plan: Continue Renvela with meals Advised binder compliance Repeat level intermittently (5) DKA (diabetic ketoacidoses) ICD Codes: E13.10 - Other specified diabetes mellitus with ketoacidosis without coma Status: Acute Plan: Labile blood sugar in the past, recently BG has been controlled. A1c 10.7 On Levemir, he is a Brittle DM 1 Endocrinology has been evaluated and given recommendations on insulin and dietary intake (6) HTN (hypertension) ICD Codes: I10 - Essential (primary) hypertension Status: Chronic Plan: Continue home medications, titrate as needed Permanent Comment: Last Edited By: Jasmyne Bee on Jul 11, 2017 15:31 (7) Anemia ICD Codes: D64.9 - Anemia, unspecified Plan: Epogen with dialysis (8) Hyperkalemia ICD Codes: E87.5 - Hyperkalemia Status: Acute Plan: Improved. Continue to monitor. Problem Qualifiers (1) Osteomyelitis: Qualified Codes: M86.8X7 - Other osteomyelitis, ankle and foot (2) DKA (diabetic ketoacidoses): (3) Anemia: Qualified Codes: N18.6 - End stage renal disease; D63.1 - Anemia in chronic kidney disease; Z99.2 - Dependence on renal dialysis Joshua Perry MD Jan 12, 2018 09:28
--- NOTE | 2018-01-12 09:58 | HHI.PR ---
Subjective Remarks in no acute distress. no fever. denies pain. blood sugar trend noted. d/w the RN. Objective Vitals Vital Signs Date Time Temp Pulse Resp B/P (MAP) Pulse Ox O2 Delivery O2 Flow Rate FiO2 01/12/18 08:00 98.1 84 17 161/79 (106) 99 01/12/18 00:00 98.3 100 20 158/75 (102) 98 01/11/18 20:00 98.3 86 20 150/68 (95) 98 01/11/18 16:00 98.0 83 16 132/64 (86) 100 I/O 01/11/18 01/11/18 01/11/18 01/12/18 01/12/18 01/12/18 07:00 15:00 23:00 07:00 15:00 23:00 Intake Total 0 ml 800 ml 240 ml Output Total 0 ml 2500 ml Balance 0 ml -2500 ml 800 ml 240 ml Intake Oral 0 ml 800 ml 240 ml Output Urine Total 0 ml Hemodialysis 2500 ml # Voids 0 0 # Bowel Movements 0 0 Result Diagram: 01/09/18 0917 01/12/18 0009 Imaging Last Impressions Chest X-Ray 01/09/18 0000 Signed Impressions: Service Date/Time: Tuesday, January 09, 2018 15:16 - CONCLUSION: No acute disease. No significant change has occurred. Mild cardiomegaly Brian Yu MD Foot X-Ray 12/26/17 0000 Signed Impressions: Service Date/Time: Tuesday, December 26, 2017 07:29 - CONCLUSION: 1. Findings concerning for osteomyelitis involving the tuft of the first toe. Phani Vasquez MD Head CT 12/[id number]/[id number] Signed Impressions: Service Date/Time: Monday, December 25, 2017 22:22 - CONCLUSION: No acute intracranial abnormality demonstrated. Eliu Ayala MD Objective Remarks GENERAL: This is a well-nourished, well-developed patient, in no apparent distress. CARDIOVASCULAR: Regular rate and regular rhythm without murmurs, gallops, or rubs. RESPIRATORY: Clear to auscultation. Breath sounds equal bilaterally. No wheezes , rales, or rhonchi. GASTROINTESTINAL: Abdomen soft, non-tender, nondistended. Normal, active bowel sounds MUSCULOSKELETAL: gangrene of the left foot. NEURO: Alert & Oriented x4 to person, place, time, situation. Moves all ext x4 Medications and IVs Inpatient Medications Acetaminophen (Tylenol) 650 mg UNSCH PRN PO for headach, pain, temp > 101F; Start 12/26/17 at 13:45 Acetaminophen/ Hydrocodone Bitart ([place] 7.5-325 Mg) 1 tab Q4H PRN PO pain 1- 4 Last administered on 01/12/18at 06:10; Start 12/27/17 at 12:15 Albumin Human 100 ml @ 60 mls/hr UNSCH PRN IV WITH DIALYSIS; Start 12/26/17 at 13:45 Albuterol Sulfate (Albuterol Concentrated Neb) 10 mg ONCE ONCE INH Last administered on 12/25/17at 21:14; Start 12/25/17 at 21:00; Stop 12/25/17 at 21:01 ; Status DC Albuterol Sulfate (Albuterol Neb) 2.5 mg Q2HR NEB PRN NEB WHEEZING; Start 12/26 at 07:15 Amlodipine Besylate (Norvasc) 5 mg DAILY PO Last administered on 01/11/18at 12: 48; Start 12/26/17 at 09:00 Ampicillin Sodium/ Sulbactam Sodium 3 gm/Sodium Chloride 100 ml @ 200 mls/hr Q24H IV Last administered on 01/11/18at 16:57; Start 12/31/17 at 18:00 Aspirin (Aspirin Chew) 81 mg DAILY CHEW Last administered on 01/11/18at 12:45; Start 12/26/17 at 15:00 Aspirin (Aspirin) 325 mg SAP PORTAL DEVELOPER PO ; Start 12/29/17 at 09:00; Stop 01/02/18 at 08:59; Status DC Atropine Sulfate (Atropine Inj) 0.5 mg UNSCH PRN IV PUSH VAGAL REPONSE; Start 12/29/17 at 09:45 Bacitracin (Bacitracin Oint Packet) 0.9 gm ONCE ONCE TOP ; Start 12/29/17 at 09 :45; Stop 12/29/17 at 09:50; Status DC Bisacodyl (Dulcolax Supp) 10 mg DAILY PRN RECTAL SEVERE CONSITIPATION; Start at 01:45 Budesonide/ Formoterol Fumarate (Symbicort 160-4.5 Mcg Inh) 1 puff Q12HR INH Last administered on 01/11/18 20:56; Start 12/26/17 at 09:00 Calcium Gluconate (Calcium Gluconate Inj) 2 gm ONCE ONCE SLOW IVP Last administered on 12/25/17at 21:18; Start 12/25/17 at 21:00; Stop 12/25/17 at 21:01 ; Status DC Chlorhexidine Gluconate (Chlorhexidine 2% Cloth) 3 pack SAP PORTAL DEVELOPER PRN TOPICAL SEE LABEL COMMENTS; Start 12/31/17 at 00:45; Stop 01/03/18 at 00:44; Status DC Chlorpromazine (Thorazine) 25 mg Q8H PRN PO HICCOUGHS Last administered on 01/11 00:16; Start 01/10/18 at 14:00 Cholecalciferol (Vitamin D3) 1,000 units DAILY PO Last administered on 12:45; Start 12/26/17 at 09:00 Ciprofloxacin (Cipro) 500 mg Q12HR PO ; Start 12/26/17 at 09:00; Stop 12/26/17 at 09:00; Status DC Clonidine (Catapres) 0.1 mg UNSCH PRN PO for BP > 180/100 X 2 readings; Start 12/26/17 at 13:45 Dextrose (D50w (Syr) Inj) 50 ml ONCE ONCE IV ; Start 12/26/17 at 07:30; Stop at 07:31; Status DC Dextrose (D50w (Vial) Inj) 50 ml UNSCH PRN IV PUSH HYPOGLYCEMIA - SEE COMMENTS Last administered on 01/09/18 08:34; Start 12/26/17 at 13:00 Diphenhydramine HCl (Benadryl) 25 mg UNSCH PRN PO for hives/itching/ anaphylaxis Last administered on 01/10/18 08:27; Start 12/26/17 at 13:45 Duloxetine HCl (Cymbalta Dr) 30 mg DAILY PO Last administered on 01/11/18 12: 46; Start 12/26/17 at 09:00 Epoetin Marco A (Epogen Inj) 10,000 units UNSCH PRN IV PUSH WITH DIALYSIS Last administered on 01/11/18 09:03; Start 12/26/17 at 13:45 Fentanyl Citrate (fentaNYL INJ) 50 mcg SAP PORTAL DEVELOPER IV PUSH ; Start 12/29/17 at 09: 00; Stop 01/02/18 at 08:59; Status DC Fluconazole (Diflucan) 200 mg DAILY PO Last administered on 12/27/17at 08:09; Start 12/26/17 at 09:00; Stop 12/27/17 at 10:45; Status DC Gelatin (Gelfoam 12 Mm/7 Mm Top) 1 foam UNSCH PRN TOP SEE LABEL COMMENTS Last administered on 01/11/18at 09:03; Start 12/26/17 at 13:45 Gentamicin Sulfate (Gentamicin Inj) 20 mg UNSCH PRN OTHER WITH DIALYSIS; Start 12/26/17 at 13:45 Glucagon (Glucagon Inj) 1 mg UNSCH PRN OTHER HYPOGLYCEMIA-SEE COMMENTS; Start 12/26/17 at 13:00 Heparin Sodium (Porcine) (Heparin Inj) UNSCH PRN .XX WITH DIALYSIS; Start at 13:45 Insulin Aspart (NovoLOG SUPPLEMENTAL SCALE) 1 Q4HR SQ Last administered on 01/10at 16:00; Start 12/26/17 at 12:47; Status Future Hold Insulin Aspart (NovoLOG INJ) 5 units ONCE ONCE SQ Last administered on at 01:32; Start 01/12/18 at 01:30; Stop 01/12/18 at 01:31; Status DC Insulin Detemir (Levemir Inj) 5 units Q12HR SQ Last administered on 01/11/18at 21:03; Start 01/10/18 at 21:00 Insulin Human Regular (NovoLIN R INJ) 20 units NOW ONCE SQ Last administered on 12/29/17at 12:00; Start 12/29/17 at 12:45; Stop 12/29/17 at 12:46; Status DC Insulin Human Regular 100 units/ Sodium Chloride 100 ml @ 6.5 mls/hr TITRATE PRN IV Blood Sugar Management Last administered on 12/25/17at 22:40; Start at 21:30; Stop 12/26/17 at 12:45; Status DC Iohexol 50 ml @ 0 mls/hr ONCE ONCE IV Last administered on 12/31/17at 08:00; Start 12/31/17 at 08:00; Stop 12/31/17 at 08:12; Status DC Ketorolac Tromethamine (Toradol Inj) 15 mg Q8HR PRN IM CHEST PAIN; Start at 10:00; Stop 01/03/18 at 09:59; Status DC Lactated Ringer's 1,000 ml @ 30 mls/hr Q24H PRN IV SEE LABEL COMMENTS; Start at 00:45; Stop 01/03/18 at 00:44; Status DC Lactulose (Lactulose Liq) 30 ml DAILY PRN PO SEVERE CONSITIPATION; Start at 01:45 Magnesium Hydroxide (Milk Of Magnesia Liq) 30 ml Q12H PRN PO Mild constipation ; Start 12/26/17 at 01:45 Mannitol (Mannitol Inj) 12.5 gm UNSCH PRN IV WITH DIALYSIS; Start 12/26/17 at 13:45 Metoprolol Tartrate (Lopressor Inj) 2.5 mg ONCE PRN IV PUSH ANGINA Last administered on 12/29/17at 08:16; Start 12/29/17 at 08:00; Stop 12/29/17 at 23:00 ; Status DC Metoprolol Tartrate (Lopressor) 25 mg Q8H PO Last administered on 01/11/18at 23: 22; Start 12/29/17 at 08:00 Midazolam HCl (Versed Inj) 1 mg SAP PORTAL DEVELOPER IV PUSH ; Start 12/29/17 at 09:00; Stop 01/02/18 at 08:59; Status DC Miscellaneous Information ALL NURSING DEPARTME... UNSCH PRN .XX SEE LABEL COMMENTS; Start 12/31/17 at 10:15; Stop 01/01/18 at 10:14; Status DC Morphine Sulfate (Morphine Inj) 2 mg Q3H PRN IV pain 5-10 Last administered on 12/31/17at 04:45; Start 12/26/17 at 17:15 Nitroglycerin (Nitroglycerin 2% Oint) 1 inch Q8H TOPICAL Last administered on at 23:22; Start 12/29/17 at 08:00 Nitroglycerin (Nitrostat Sl) 0.4 mg UNSCH PRN SL CHEST PAIN Last administered on 12/29/17at 08:05; Start 12/26/17 at 13:45 Ondansetron HCl (Zofran Inj) 4 mg UNSCH PRN IV PUSH WITH DIALYSIS; Start at 13:45 Pantoprazole Sodium (Protonix) 40 mg DAILY PO Last administered on 01/11/18at 12 :45; Start 12/26/17 at 09:00 Piperacillin Sod/ Tazobactam Sod 50 ml @ 100 mls/hr Q8H IV Last administered on 12/31/17at 11:19; Start 12/26/17 at 12:00; Stop 12/31/17 at 13:25; Status DC Povidone Iodine (Betadine 5% Antisepsis Kit) 1 applic SAP PORTAL DEVELOPER PRN EACH NARE SEE LABEL COMMENTS; Start 12/31/17 at 00:45; Stop 01/03/18 at 00:44; Status DC Senna/Docusate Sodium ([place]-Colace) 1 tab BID PO Last administered on at 12:45; Start 12/26/17 at 09:00 Sennosides (Senokot) 17.2 mg Q12H PRN PO Moderate constipation; Start 12/26/17 at 01:45 Sevelamer Carbonate (Renvela) 2,400 mg TIDAC PO Last administered on 01/11/18at 16:57; Start 12/27/17 at 17:00 Sodium Polystyrene Sulfonate (Kayexalate Liq) 15 gm ONCE ONCE PO ; Start at 21:00; Stop 12/25/17 at 21:01; Status DC Sodium Bicarbonate (Sodium Bicarbonate 8.4% Inj) 50 meq ONCE ONCE SLOW IVP Last administered on 12/25/17at 21:30; Start 12/25/17 at 21:30; Stop 12/25/17 at 21:31; Status DC Sodium Chloride 500 ml @ 30 mls/hr [id number] PRN IV SEE LABEL COMMENTS; Start at 00:45; Stop 01/03/18 at 00:44; Status DC Sodium Chloride (NS Flush) 2 ml UNSCH PRN IV FLUSH FLUSH AFTER USING IV ACCESS ; Start 12/29/17 at 09:45; Stop 12/29/17 at 09:52; Status DC A/P Problem List: (1) PAD (peripheral artery disease) ICD Code: I73.9 - Peripheral vascular disease, unspecified Status: Chronic (2) Diabetic nephropathy ICD Code: E11.21 - Diabetic nephropathy Status: Chronic (3) CKD (chronic kidney disease) stage V requiring chronic dialysis ICD Code: N18.6 - End stage renal disease; Z99.2 - Dependence on renal dialysis Status: Chronic (4) Dyslipidemia ICD Code: E78.5 - Dyslipidemia Status: Chronic (5) DM (diabetes mellitus) ICD Code: E11.9 - Type 2 diabetes mellitus without complications Status: Chronic (6) HTN (hypertension) ICD Code: I10 - Essential (primary) hypertension Status: Chronic Permanent Comment: Last Edited By: Jasmyne Bee on Jul 11, 2017 15:31 (7) PAD (peripheral artery disease) ICD Code: I73.9 - Peripheral vascular disease, unspecified Status: Chronic (8) Ischemic ulcer diabetic foot ICD Code: E11.621 - Type 2 diabetes mellitus with foot ulcer; L97.509 - Non- pressure chronic ulcer of other part of unspecified foot with unspecified severity Status: Acute (9) ESRD on hemodialysis ICD Code: N18.6 - End stage renal disease; Z99.2 - Dependence on renal dialysis Status: Chronic (10) COPD (chronic obstructive pulmonary disease) ICD Code: J44.9 - Chronic obstructive pulmonary disease, unspecified Status: Chronic (11) DKA (diabetic ketoacidoses) ICD Code: E13.10 - Other specified diabetes mellitus with ketoacidosis without coma Status: Acute (12) Encephalopathy acute ICD Code: G93.40 - Encephalopathy, unspecified Status: Acute (13) Osteomyelitis ICD Code: M86.9 - Osteomyelitis, unspecified Status: Acute Assessment and Plan A/P 1. Acute toxic metabolic encephalopathy/Peripheral Neuropathy/Depression Resolved CT brain negative. 2. COPD/Tobacco dependence on Symbicort 160/4.5 2 puffs inhaled twice a day 3. Hypertension/Peripheral Artery Disease/Ischemic distal digits status post Left posterior tibial artery angioplasty 09/24/17 Dr Ortiz Amlodipine 5 mg daily and Lisinopril 10 mg daily 4. ESRD on Hemodialysis M/W/F, Nephrology specialist following 5. Osteomyelitis of the left foot Left second toe amputation 07/11/17 Left Posterior tibial artery angioplasty 09/24/17 I and D Left foot 09/28/17 left foot transmetatarsal amputation 09/26/17 Dr. Judge Poor wound healing and dry gangrene as well as probable wet gangrene noted ID and podiatry ff treated with Unasyn IV, status post Zosyn s/p bilateral angiogram with balloon angioplasty 12/31/17 AJAY negative for endocarditis 01/02/18 previously d/w the vascular surgery and plan for left foot amputation next week. ID f/u appreciated and recommended that IV Unasyn to be continued. 6- digital ischemia -right hand previously d/w the vascular surgery ; work-up as outpatient per vascular surgery. 7. Anemia of chronic disease Stable. 8. DKA resolved/brittle DM - resumed levemir; will consider increasing levemir if blood sugar remains elevated- added premeal Novolog- monitor accu-checks closely- endocrinology consult appreciated. 9.elevated troponin - likely due to acute pericarditis/ renal failure [facility] without any hemodynamically significant epicardial coronary artery disease. PROPH: Heparin 5000 units subcutaneous every 12 hours for DVT prophylaxis. Protonix 40 mg by mouth daily Discharge Planning dc to SNF when cleared by ID with recommendations on IV antibiotic regimen upon discharge. Problem Qualifiers (1) DKA (diabetic ketoacidoses): (2) Osteomyelitis: Qualified Codes: M86.8X7 - Other osteomyelitis, ankle and foot Ebony Michel MD Jan 12, 2018 09:58
[2018-01-12] MEDS: ASPIRIN 81 MG CHEW TAB CHEW SCH (10:30)
[2018-01-12] MEDS: CHOLECALCIFEROL (VIT D3) 1000 UNIT TAB PO SCH (10:30)
[2018-01-12] MEDS: NITROGLYCERIN 2% OINT 1 GM PACKET TOPICAL SCH ×2 (10:30→17:24)
[2018-01-12] MEDS: INSULIN DETEMIR 100 UNITS/ML VIAL SQ SCH ×2 (10:31→22:13)
[2018-01-12] MEDS: PANTOPRAZOLE SOD 40 MG DELAYED RELEASE TAB PO SCH (10:31)
[2018-01-12] MEDS: amLODIPine BESYLATE 5 MG TAB PO SCH (10:31)
[2018-01-12] MEDS: DOCUSATE SODIUM 50 MG/SENNA 8.6 MG TAB PO SCH ×2 (10:31→21:00)
[2018-01-12] MEDS: INSULIN ASPART 1,000 UNITS/10 ML VIAL SQ SCH ×3 (10:31→17:25)
[2018-01-12] MEDS: DULoxetine HCl DR 30 MG CAP PO SCH (10:32)
[2018-01-12] MEDS: SODIUM CHLORIDE 0.9% FLUSH 10 ML FLUSH IV FLUSH SCH ×2 (10:32→21:21)
[2018-01-12] MEDS: BUDESONIDE-FORMOTEROL 160/4.5 MCG INHALER INH SCH ×2 (10:32→21:20)
[2018-01-12] MEDS: SEVELAMER CARBONATE 800 MG TAB PO SCH ×3 (10:33→17:24)
[2018-01-12] MEDS: METOPROLOL TARTRATE 25 MG TAB PO SCH ×2 (10:35→16:00)
[2018-01-12 12:00] VITALS: BP 158/75; PULSE 85; RESP 17; TEMP 97.7; O2SAT 99
--- NOTE | 2018-01-12 15:57 | HHI.IDPN ---
Subjective Subjective Remarks pt was seen earlier today no fever surgery postponed till thrusday Antibiotics Amp/S Lines Line sites with no e.o infection Past Medical History reviewed Allergies: Coded Allergies: No Known Allergies (Verified Allergy, Unknown, 10/16/17) Objective . Vital Signs Date Time Temp Pulse Resp B/P (MAP) Pulse Ox O2 Delivery O2 Flow Rate FiO2 01/12/18 12:00 97.7 85 17 158/75 (102) 99 01/12/18 08:00 98.1 84 17 161/79 (106) 99 01/12/18 00:00 98.3 100 20 158/75 (102) 98 01/11/18 20:00 98.3 86 20 150/68 (95) 98 01/11/18 16:00 98.0 83 16 132/64 (86) 100 . Laboratory Tests Test 01/12/18 00:09 Random Glucose 530 MG/DL Imaging Last Impressions Foot X-Ray 12/26/17 0000 Signed Impressions: Service Date/Time: Tuesday, December 26, 2017 07:29 - CONCLUSION: 1. Findings concerning for osteomyelitis involving the tuft of the first toe. Phani Vasquez MD Head CT [id number] Signed Impressions: Service Date/Time: Monday, December 25, 2017 22:22 - CONCLUSION: No acute intracranial abnormality demonstrated. Eliu Ayala MD Chest X-Ray [id number] Signed Impressions: Service Date/Time: Monday, December 25, 2017 20:45 - CONCLUSION: No evidence of acute cardiopulmonary disease. Eliu Ayala MD Physical Exam GENERAL: This is a well-nourished, well-developed patient, in no apparent distress. SKIN: No rashes, ecchymoses or lesions. Cool and dry. MUSCULOSKELETAL: dressing i place b/l feet Assessment & Plan Remarks Osteomyelitis L foot (L second toe amputation 07/11/17 L posterior tibial artery angioplasty 09/24/17 I and D L foot 09/28/17 Left foot transmetatarsal amputation 09/26/17 (Dr. Judge) Peripheral arterial disease s/p L posterior tibial artery angioplasty Dr. Ortiz Leukocytosis: reactive, infection. DKA, Diabetes mellitus with Neuropathy and Nephropathy. ESRD on hemodialysis Acute metabolic encephalopathy: DKA, sepsis, ? meningitis workup if AMS persists. Peripheral neuropathy COPD, Prior tobacco abuse HTN' Multiple gangrenous finger tips on b/l hands ? embolic ? vasculitis - AJAY negative Recs: Cont Unasyn IV OK to d/c home and readmitt for BKA on cont augmentin at home Vianey Anguiano MD Jan 12, 2018 15:57
[2018-01-12] MEDS ORDERED: AUGM500T7 PO (15:59)
[2018-01-12 16:00] VITALS: BP 150/76; PULSE 76; RESP 17; TEMP 98.1; O2SAT 99
[2018-01-12] MEDS: AMPICILLIN-SULBACTAM INJ 3 GM in SODIUM CHLORIDE 0.9% INJ 100 ML IV SCH (17:25)
[2018-01-12 20:00] VITALS: BP 136/64; PULSE 73; RESP 18; TEMP 98.3; O2SAT 100
[2018-01-13 00:10] VITALS: BP 160/74; PULSE 73; RESP 20; TEMP 98; O2SAT 96
[2018-01-13] MEDS: METOPROLOL TARTRATE 25 MG TAB PO SCH ×2 (00:41→08:32)
[2018-01-13] MEDS: NITROGLYCERIN 2% OINT 1 GM PACKET TOPICAL SCH ×2 (00:43→08:32)
[2018-01-13 08:00] VITALS: BP 167/77; PULSE 72; RESP 17; TEMP 97.9; O2SAT 99
[2018-01-13] MEDS: INSULIN ASPART 1,000 UNITS/10 ML VIAL SQ SCH ×2 (08:32→12:16)
[2018-01-13] MEDS: ASPIRIN 81 MG CHEW TAB CHEW SCH (08:32)
[2018-01-13] MEDS: DULoxetine HCl DR 30 MG CAP PO SCH (08:32)
[2018-01-13] MEDS: amLODIPine BESYLATE 5 MG TAB PO SCH (08:32)
[2018-01-13] MEDS: SODIUM CHLORIDE 0.9% FLUSH 10 ML FLUSH IV FLUSH SCH (08:32)
[2018-01-13] MEDS: PANTOPRAZOLE SOD 40 MG DELAYED RELEASE TAB PO SCH (08:32)
[2018-01-13] MEDS: CHOLECALCIFEROL (VIT D3) 1000 UNIT TAB PO SCH (08:32)
[2018-01-13] MEDS: SEVELAMER CARBONATE 800 MG TAB PO SCH ×2 (08:32→12:15)
[2018-01-13] MEDS: DOCUSATE SODIUM 50 MG/SENNA 8.6 MG TAB PO SCH (08:32)
[2018-01-13] MEDS: INSULIN DETEMIR 100 UNITS/ML VIAL SQ SCH (08:33)
--- NOTE | 2018-01-13 10:11 | HHI.PR ---
Subjective Remarks in no acute distress. denies pain. no fever. no new complaints. Objective Vitals Vital Signs Date Time Temp Pulse Resp B/P (MAP) Pulse Ox O2 Delivery O2 Flow Rate FiO2 01/13/18 00:10 98.0 73 20 160/74 (102) 96 01/12/18 20:00 98.3 73 18 136/64 (88) 100 01/12/18 16:00 98.1 76 17 150/76 (100) 99 01/12/18 12:00 97.7 85 17 158/75 (102) 99 I/O 01/12/18 01/12/18 01/12/18 01/13/18 01/13/18 01/13/18 07:00 15:00 23:00 07:00 15:00 23:00 Intake Total 240 ml 1800 ml 760 ml Balance 240 ml 1800 ml 760 ml Intake Oral 240 ml 1800 ml 760 ml # Voids 0 2 1 # Bowel Movements 0 0 Result Diagram: 01/09/18 0917 01/12/18 0009 Imaging Last Impressions Chest X-Ray 01/09/18 0000 Signed Impressions: Service Date/Time: Tuesday, January 09, 2018 15:16 - CONCLUSION: No acute disease. No significant change has occurred. Mild cardiomegaly Brian Yu MD Foot X-Ray 12/26/17 0000 Signed Impressions: Service Date/Time: Tuesday, December 26, 2017 07:29 - CONCLUSION: 1. Findings concerning for osteomyelitis involving the tuft of the first toe. Phani Vasquez MD Head CT [id number] Signed Impressions: Service Date/Time: Monday, December 25, 2017 22:22 - CONCLUSION: No acute intracranial abnormality demonstrated. Eliu Ayala MD Objective Remarks GENERAL: This is a well-nourished, well-developed patient, in no apparent distress. CARDIOVASCULAR: Regular rate and regular rhythm without murmurs, gallops, or rubs. RESPIRATORY: Clear to auscultation. Breath sounds equal bilaterally. No wheezes , rales, or rhonchi. GASTROINTESTINAL: Abdomen soft, non-tender, nondistended. Normal, active bowel sounds MUSCULOSKELETAL: gangrene of the left foot. NEURO: Alert & Oriented x4 to person, place, time, situation. Moves all ext x4 Medications and IVs Inpatient Medications Acetaminophen (Tylenol) 650 mg UNSCH PRN PO for headach, pain, temp > 101F; Start 12/26/17 at 13:45 Acetaminophen/ Hydrocodone Bitart ([place] 7.5-325 Mg) 1 tab Q4H PRN PO pain 1- 4 Last administered on 01/12/18 21:19; Start 12/27/17 at 12:15 Albumin Human 100 ml @ 60 mls/hr UNSCH PRN IV WITH DIALYSIS; Start 12/26/17 at 13:45 Albuterol Sulfate (Albuterol Concentrated Neb) 10 mg ONCE ONCE INH Last administered on 12/25/17at 21:14; Start 12/25/17 at 21:00; Stop 12/25/17 at 21:01 ; Status DC Albuterol Sulfate (Albuterol Neb) 2.5 mg Q2HR NEB PRN NEB WHEEZING; Start 12/26 at 07:15 Amlodipine Besylate (Norvasc) 5 mg DAILY PO Last administered on 01/13/18at 08:32 ; Start 12/26/17 at 09:00 Ampicillin Sodium/ Sulbactam Sodium 3 gm/Sodium Chloride 100 ml @ 200 mls/hr Q24H IV Last administered on 01/11/18at 16:57; Start 12/31/17 at 18:00 Aspirin (Aspirin Chew) 81 mg DAILY CHEW Last administered on 01/13/18at 08:32; Start 12/26/17 at 15:00 Aspirin (Aspirin) 325 mg GAMING TABLE OPERATOR PO ; Start 12/29/17 at 09:00; Stop 01/02/18 at 08:59; Status DC Atropine Sulfate (Atropine Inj) 0.5 mg UNSCH PRN IV PUSH VAGAL REPONSE; Start 12/29/17 at 09:45 Bacitracin (Bacitracin Oint Packet) 0.9 gm ONCE ONCE TOP ; Start 12/29/17 at 09 :45; Stop 12/29/17 at 09:50; Status DC Bisacodyl (Dulcolax Supp) 10 mg DAILY PRN RECTAL SEVERE CONSITIPATION; Start at 01:45 Budesonide/ Formoterol Fumarate (Symbicort 160-4.5 Mcg Inh) 1 puff Q12HR INH Last administered on 3/31/18at 21:20; Start 12/26/17 at 09:00 Calcium Gluconate (Calcium Gluconate Inj) 2 gm ONCE ONCE SLOW IVP Last administered on 12/25/17 21:18; Start 12/25/17 at 21:00; Stop 12/25/17 at 21:01 ; Status DC Chlorhexidine Gluconate (Chlorhexidine 2% Cloth) 3 pack GAMING TABLE OPERATOR PRN TOPICAL SEE LABEL COMMENTS; Start 12/31/17 at 00:45; Stop 01/03/18 at 00:44; Status DC Chlorpromazine (Thorazine) 25 mg Q8H PRN PO HICCOUGHS Last administered on 01/11 00:16; Start 01/10/18 at 14:00 Cholecalciferol (Vitamin D3) 1,000 units DAILY PO Last administered on 08:32; Start 12/26/17 at 09:00 Ciprofloxacin (Cipro) 500 mg Q12HR PO ; Start 12/26/17 at 09:00; Stop 12/26/17 at 09:00; Status DC Clonidine (Catapres) 0.1 mg UNSCH PRN PO for BP > 180/100 X 2 readings; Start 12/26/17 at 13:45 Dextrose (D50w (Syr) Inj) 50 ml ONCE ONCE IV ; Start 12/26/17 at 07:30; Stop at 07:31; Status DC Dextrose (D50w (Vial) Inj) 50 ml UNSCH PRN IV PUSH HYPOGLYCEMIA - SEE COMMENTS Last administered on 01/09/18at 08:34; Start 12/26/17 at 13:00 Diphenhydramine HCl (Benadryl) 25 mg UNSCH PRN PO for hives/itching/ anaphylaxis Last administered on 01/10/18 08:27; Start 12/26/17 at 13:45 Duloxetine HCl (Cymbalta Dr) 30 mg DAILY PO Last administered on 01/13/18 08:32 ; Start 12/26/17 at 09:00 Epoetin Marco A (Epogen Inj) 10,000 units UNSCH PRN IV PUSH WITH DIALYSIS Last administered on 01/11/18 09:03; Start 12/26/17 at 13:45 Fentanyl Citrate (fentaNYL INJ) 50 mcg GAMING TABLE OPERATOR IV PUSH ; Start 12/29/17 at 09: 00; Stop 01/02/18 at 08:59; Status DC Fluconazole (Diflucan) 200 mg DAILY PO Last administered on 12/27/17at 08:09; Start 12/26/17 at 09:00; Stop 12/27/17 at 10:45; Status DC Gelatin (Gelfoam 12 Mm/7 Mm Top) 1 foam UNSCH PRN TOP SEE LABEL COMMENTS Last administered on 01/11/18at 09:03; Start 12/26/17 at 13:45 Gentamicin Sulfate (Gentamicin Inj) 20 mg UNSCH PRN OTHER WITH DIALYSIS; Start 12/26/17 at 13:45 Glucagon (Glucagon Inj) 1 mg UNSCH PRN OTHER HYPOGLYCEMIA-SEE COMMENTS; Start 12/26/17 at 13:00 Heparin Sodium (Porcine) (Heparin Inj) UNSCH PRN .XX WITH DIALYSIS; Start at 13:45 Insulin Aspart (NovoLOG SUPPLEMENTAL SCALE) 1 Q4HR SQ Last administered on 01/10at 16:00; Start 12/26/17 at 12:47; Status Future Hold Insulin Aspart (NovoLOG INJ) 5 units ONCE ONCE SQ Last administered on at 01:32; Start 01/12/18 at 01:30; Stop 01/12/18 at 01:31; Status DC Insulin Detemir (Levemir Inj) 8 units Q12HR SQ Last administered on 01/13/18at 08 :33; Start 01/12/18 at 21:00 Insulin Human Regular (NovoLIN R INJ) 20 units NOW ONCE SQ Last administered on 12/29/17at 12:00; Start 12/29/17 at 12:45; Stop 12/29/17 at 12:46; Status DC Insulin Human Regular 100 units/ Sodium Chloride 100 ml @ 6.5 mls/hr TITRATE PRN IV Blood Sugar Management Last administered on 12/25/17at 22:40; Start at 21:30; Stop 12/26/17 at 12:45; Status DC Iohexol 50 ml @ 0 mls/hr ONCE ONCE IV Last administered on 12/31/17at 08:00; Start 12/31/17 at 08:00; Stop 12/31/17 at 08:12; Status DC Ketorolac Tromethamine (Toradol Inj) 15 mg Q8HR PRN IM CHEST PAIN; Start at 10:00; Stop 01/03/18 at 09:59; Status DC Lactated Ringer's 1,000 ml @ 30 mls/hr Q24H PRN IV SEE LABEL COMMENTS; Start at 00:45; Stop 01/03/18 at 00:44; Status DC Lactulose (Lactulose Liq) 30 ml DAILY PRN PO SEVERE CONSITIPATION; Start at 01:45 Magnesium Hydroxide (Milk Of Magnesia Liq) 30 ml Q12H PRN PO Mild constipation ; Start 12/26/17 at 01:45 Mannitol (Mannitol Inj) 12.5 gm UNSCH PRN IV WITH DIALYSIS; Start 12/26/17 at 13:45 Metoprolol Tartrate (Lopressor Inj) 2.5 mg ONCE PRN IV PUSH ANGINA Last administered on 12/29/17at 08:16; Start 12/29/17 at 08:00; Stop 12/29/17 at 23:00 ; Status DC Metoprolol Tartrate (Lopressor) 25 mg Q8H PO Last administered on 01/13/18at 08: 32; Start 12/29/17 at 08:00 Midazolam HCl (Versed Inj) 1 mg GAMING TABLE OPERATOR IV PUSH ; Start 12/29/17 at 09:00; Stop 01/02/18 at 08:59; Status DC Miscellaneous Information ALL NURSING DEPARTME... UNSCH PRN .XX SEE LABEL COMMENTS; Start 12/31/17 at 10:15; Stop 01/01/18 at 10:14; Status DC Morphine Sulfate (Morphine Inj) 2 mg Q3H PRN IV pain 5-10 Last administered on 12/31/17at 04:45; Start 12/26/17 at 17:15 Nitroglycerin (Nitroglycerin 2% Oint) 1 inch Q8H TOPICAL Last administered on at 08:32; Start 12/29/17 at 08:00 Nitroglycerin (Nitrostat Sl) 0.4 mg UNSCH PRN SL CHEST PAIN Last administered on 12/29/17at 08:05; Start 12/26/17 at 13:45 Ondansetron HCl (Zofran Inj) 4 mg UNSCH PRN IV PUSH WITH DIALYSIS; Start at 13:45 Pantoprazole Sodium (Protonix) 40 mg DAILY PO Last administered on 01/13/18at 08: 32; Start 12/26/17 at 09:00 Piperacillin Sod/ Tazobactam Sod 50 ml @ 100 mls/hr Q8H IV Last administered on 12/31/17at 11:19; Start 12/26/17 at 12:00; Stop 12/31/17 at 13:25; Status DC Povidone Iodine (Betadine 5% Antisepsis Kit) 1 applic GAMING TABLE OPERATOR PRN EACH NARE SEE LABEL COMMENTS; Start 12/31/17 at 00:45; Stop 01/03/18 at 00:44; Status DC Senna/Docusate Sodium (Odette-Colace) 1 tab BID PO Last administered on 01/13/18at 08:32; Start 12/26/17 at 09:00 Sennosides (Senokot) 17.2 mg Q12H PRN PO Moderate constipation; Start 12/26/17 at 01:45 Sevelamer Carbonate (Renvela) 2,400 mg TIDAC PO Last administered on 01/13/18at 08:32; Start 12/27/17 at 17:00 Sodium Polystyrene Sulfonate (Kayexalate Liq) 15 gm ONCE ONCE PO ; Start at 21:00; Stop 12/25/17 at 21:01; Status DC Sodium Bicarbonate (Sodium Bicarbonate 8.4% Inj) 50 meq ONCE ONCE SLOW IVP Last administered on 12/25/17at 21:30; Start 12/25/17 at 21:30; Stop 12/25/17 at 21:31; Status DC Sodium Chloride 500 ml @ 30 mls/hr [id number] PRN IV SEE LABEL COMMENTS; Start at 00:45; Stop 01/03/18 at 00:44; Status DC Sodium Chloride (NS Flush) 2 ml UNSCH PRN IV FLUSH FLUSH AFTER USING IV ACCESS ; Start 12/29/17 at 09:45; Stop 12/29/17 at 09:52; Status DC A/P Problem List: (1) PAD (peripheral artery disease) ICD Code: I73.9 - Peripheral vascular disease, unspecified Status: Chronic (2) Diabetic nephropathy ICD Code: E11.21 - Diabetic nephropathy Status: Chronic (3) CKD (chronic kidney disease) stage V requiring chronic dialysis ICD Code: N18.6 - End stage renal disease; Z99.2 - Dependence on renal dialysis Status: Chronic (4) Dyslipidemia ICD Code: E78.5 - Dyslipidemia Status: Chronic (5) DM (diabetes mellitus) ICD Code: E11.9 - Type 2 diabetes mellitus without complications Status: Chronic (6) HTN (hypertension) ICD Code: I10 - Essential (primary) hypertension Status: Chronic Permanent Comment: Last Edited By: Jasmyne Bee on Jul 11, 2017 15:31 (7) PAD (peripheral artery disease) ICD Code: I73.9 - Peripheral vascular disease, unspecified Status: Chronic (8) Ischemic ulcer diabetic foot ICD Code: E11.621 - Type 2 diabetes mellitus with foot ulcer; L97.509 - Non- pressure chronic ulcer of other part of unspecified foot with unspecified severity Status: Acute (9) ESRD on hemodialysis ICD Code: N18.6 - End stage renal disease; Z99.2 - Dependence on renal dialysis Status: Chronic (10) COPD (chronic obstructive pulmonary disease) ICD Code: J44.9 - Chronic obstructive pulmonary disease, unspecified Status: Chronic (11) DKA (diabetic ketoacidoses) ICD Code: E13.10 - Other specified diabetes mellitus with ketoacidosis without coma Status: Acute (12) Encephalopathy acute ICD Code: G93.40 - Encephalopathy, unspecified Status: Acute (13) Osteomyelitis ICD Code: M86.9 - Osteomyelitis, unspecified Status: Acute Assessment and Plan A/P 1. Acute toxic metabolic encephalopathy/Peripheral Neuropathy/Depression Resolved CT brain negative. 2. COPD/Tobacco dependence on Symbicort 160/4.5 2 puffs inhaled twice a day 3. Hypertension/Peripheral Artery Disease/Ischemic distal digits status post Left posterior tibial artery angioplasty 09/24/17 Dr Ortiz Amlodipine 5 mg daily and Lisinopril 10 mg daily 4. ESRD on Hemodialysis M/W/F, Nephrology specialist following 5. Osteomyelitis of the left foot Left second toe amputation 07/11/17 Left Posterior tibial artery angioplasty 09/24/17 I and D Left foot 09/28/17 left foot transmetatarsal amputation 09/26/17 Dr. Judge Poor wound healing and dry gangrene as well as probable wet gangrene noted ID and podiatry ff treated with Unasyn IV, status post Zosyn s/p bilateral angiogram with balloon angioplasty 12/31/17 AJAY negative for endocarditis 01/02/18 previously d/w the vascular surgery and plan for left foot amputation next week. ID f/u appreciated and recommended po Augmentin; cleared for discharge. 6- digital ischemia -right hand previously d/w the vascular surgery ; work-up as outpatient per vascular surgery. 7. Anemia of chronic disease Stable. 8. DKA resolved/brittle DM - increased levemir- added premeal Novolog- monitor accu-checks closely- endocrinology consult appreciated. 9.elevated troponin - likely due to acute pericarditis/ renal failure [facility] without any hemodynamically significant epicardial coronary artery disease. PROPH: Heparin 5000 units subcutaneous every 12 hours for DVT prophylaxis. Protonix 40 mg by mouth daily Discharge Planning dc to SNF today. f/u; pcp, endocrinology,vascular surgery and nephrology. see med list. d/w the patient and . d/w case management. time spent 35 min. Problem Qualifiers (1) DKA (diabetic ketoacidoses): (2) Osteomyelitis: Qualified Codes: M86.8X7 - Other osteomyelitis, ankle and foot Ebony Michel MD Jan 13, 2018 10:11
[2018-01-13] MEDS ORDERED: LEVEMIR SQ (10:17)
--- NOTE | 2018-01-13 10:21 | HHI.DS ---
Discharge Summary Admission Date Dec 25, 2017 at 21:33 Discharge Date: Jan 13, 2018 Admitting Diagnosis DKA; Obtunded; K 6.8 (1) PAD (peripheral artery disease) ICD Code: I73.9 - Peripheral vascular disease, unspecified Diagnosis: Principal Status: Chronic (2) Diabetic nephropathy ICD Code: E11.21 - Diabetic nephropathy Diagnosis: Secondary Status: Chronic (3) CKD (chronic kidney disease) stage V requiring chronic dialysis ICD Code: N18.6 - End stage renal disease; Z99.2 - Dependence on renal dialysis Diagnosis: Secondary Status: Chronic (4) Dyslipidemia ICD Code: E78.5 - Dyslipidemia Diagnosis: Secondary Status: Chronic (5) DM (diabetes mellitus) ICD Code: E11.9 - Type 2 diabetes mellitus without complications Diagnosis: Principal Status: Chronic (6) HTN (hypertension) ICD Code: I10 - Essential (primary) hypertension Diagnosis: Secondary Status: Chronic (7) PAD (peripheral artery disease) ICD Code: I73.9 - Peripheral vascular disease, unspecified Diagnosis: Principal Status: Chronic (8) Ischemic ulcer diabetic foot ICD Code: E11.621 - Type 2 diabetes mellitus with foot ulcer; L97.509 - Non- pressure chronic ulcer of other part of unspecified foot with unspecified severity Diagnosis: Principal Status: Acute (9) ESRD on hemodialysis ICD Code: N18.6 - End stage renal disease; Z99.2 - Dependence on renal dialysis Diagnosis: Secondary Status: Chronic (10) COPD (chronic obstructive pulmonary disease) ICD Code: J44.9 - Chronic obstructive pulmonary disease, unspecified Diagnosis: Secondary Status: Chronic (11) DKA (diabetic ketoacidoses) ICD Code: E13.10 - Other specified diabetes mellitus with ketoacidosis without coma Status: Acute (12) Encephalopathy acute ICD Code: G93.40 - Encephalopathy, unspecified Diagnosis: Principal Status: Acute (13) Osteomyelitis ICD Code: M86.9 - Osteomyelitis, unspecified Diagnosis: Principal Status: Acute Procedures cardiac cath. Brief History - From Admission 57 yo AAM with PMH of ESRD on HD M/W/F, DM, PAD, HTN, COPD, tobacco abuse presented from [facility] with decreased mental status. Patient is not able to provide history. CT brain was negative. He was in DKA with glucose 706 and anion gap 23. Potassium 6.9. Dr. Arnett discussed with Nephrology and arranged for hemodialysis and consulted [facility] for admission. CBC/BMP: 01/09/18 0917 01/12/18 0009 Significant Findings Laboratory Tests Test 01/12/18 00:09 Random Glucose 530 MG/DL (74-106) PE at Discharge GENERAL: This is a well-nourished, well-developed patient, in no apparent distress. CARDIOVASCULAR: Regular rate and regular rhythm without murmurs, gallops, or rubs. RESPIRATORY: Clear to auscultation. Breath sounds equal bilaterally. No wheezes , rales, or rhonchi. GASTROINTESTINAL: Abdomen soft, non-tender, nondistended. Normal, active bowel sounds MUSCULOSKELETAL: gangrene of the left foot. NEURO: Alert & Oriented x4 to person, place, time, situation. Moves all ext x4 Hospital Course 1. Acute toxic metabolic encephalopathy/Peripheral Neuropathy/Depression Resolved CT brain negative. 2. COPD/Tobacco dependence on Symbicort 160/4.5 2 puffs inhaled twice a day 3. Hypertension/Peripheral Artery Disease/Ischemic distal digits status post Left posterior tibial artery angioplasty 09/24/17 Dr Ortiz Amlodipine 5 mg daily and Lisinopril 10 mg daily 4. ESRD on Hemodialysis M/W/F, Nephrology specialist following 5. Osteomyelitis of the left foot Left second toe amputation 07/11/17 Left Posterior tibial artery angioplasty 09/24/17 I and D Left foot 09/28/17 left foot transmetatarsal amputation 09/26/17 Dr. Judge Poor wound healing and dry gangrene as well as probable wet gangrene noted ID and podiatry ff treated with Unasyn IV, status post Zosyn s/p bilateral angiogram with balloon angioplasty 12/31/17 AJAY negative for endocarditis 01/02/18 previously d/w the vascular surgery and plan for left foot amputation next week. ID f/u appreciated and recommended po Augmentin; cleared for discharge. 6- digital ischemia -right hand previously d/w the vascular surgery ; work-up as outpatient per vascular surgery. 7. Anemia of chronic disease Stable. 8. DKA resolved/brittle DM - increased levemir- added premeal Novolog- monitor accu-checks closely- endocrinology consult appreciated. 9.elevated troponin - likely due to acute pericarditis/ renal failure C without any hemodynamically significant epicardial coronary artery disease. Pt Condition on Discharge: Good Discharge Disposition: Discharge to SNF Discharge Time: > 30 minutes Discharge Instructions DIET: Follow Instructions for: Diabetic Diet Activities you can perform: Regular-No Restrictions Ebony Michel MD Jan 13, 2018 10:21
[2018-01-13] MEDS ORDERED: NOVOLOGP2 SQ (10:24)
[2018-01-13] MEDS: BUDESONIDE-FORMOTEROL 160/4.5 MCG INHALER INH SCH (11:20)
[2018-01-13 12:00] VITALS: BP 145/70; PULSE 75; RESP 16; TEMP 98.3; O2SAT 96
--- NOTE | 2018-01-13 13:00 | HHI.NPPN ---
Subjective General Problems: Anemia, Diabetes Renal Failure: Chronic, End Stage Renal Disease Additional Remarks Patient is alert, no SOB, has mild pain in Rt. hand, eating well. Review of Systems Musculoskeletal MS: Pain/Stiffness Skin Skin: Ulcers Skin Remarks right great toe, left MFA skin changes, non healing Objective Data Data Vital Signs Date Time Temp Pulse Resp B/P (MAP) Pulse Ox O2 Delivery O2 Flow Rate FiO2 01/13/18 08:00 97.9 72 17 167/77 (107) 99 01/13/18 00:10 98.0 73 20 160/74 (102) 96 01/12/18 20:00 98.3 73 18 136/64 (88) 100 01/12/18 16:00 98.1 76 17 150/76 (100) 99 -: 01/09/18 0917 01/12/18 0009 Tubes & Lines Comment Ta right chest Physical Exam General Appearance: Well Nourished, No Acute Distress, Comfortable Eyes Eye Exam: Pupils Equal Neck Neck Exam: Neck Supple Pulmonary Resp Exam: Clear Bilaterally, Breath Sounds Equal Cardiology CV Exam: Regular, Normal Sinus Rhythm Gastrointestinal/Abdomen GI Exam: Soft, Non-Tender, Bowel Sounds Present Musculoskeletal MS Exam: Joints Intact, Good Strength Integumentary Skin Exam: Warm, Dry Extremeties Extremities Exam: Trace Edema Extremeties Remarks Left foot with dressing. Neurologic Neuro Exam: Alert, Awake, Oriented, Speech Clear, Moving All Extremities Psychiatric Psych Exam: Appropriate Responses Assessment/Plan Discussed Condition With: Patient Assessment Summary: Anemia of CKD, Hypertension, Diabetes Mellitus, End Stage Renal Disease Problem List: (1) ESRD (end stage renal disease) ICD Codes: N18.6 - End-stage renal disease Status: Resolved Plan: Continue HD on MWF. He has existing HD arrangements in place for discharge purposes. Using AVF left arm for HD Avoid IVF administration, gadolinium in contraindicated High protein diet ordered with protein supplements HD done on Sunday. Schedule for Left BKA next week. Now for D/C, will be re admitted. Continue HD as out patient MWF. (2) Osteomyelitis ICD Codes: M86.9 - Osteomyelitis, unspecified Status: Acute Plan: ID, podiatry, and vascular following On Unasyn IV, which will need to be continued at discharge s/p bilateral balloon angioplasty Possible L BKA nest . AJAY 01/02: No veg, mild MR and mild TR (3) PAD (peripheral artery disease) ICD Codes: I73.9 - Peripheral vascular disease, unspecified Status: Chronic Plan: See above Needs wound care to left foot/amputation site. (4) Bone metabolism disorder ICD Codes: E88.9 - Metabolic disorder, unspecified; M90.80 - Osteopathy in diseases classified elsewhere, unspecified site Status: Acute Plan: Continue Renvela with meals Advised binder compliance Repeat level intermittently (5) DKA (diabetic ketoacidoses) ICD Codes: E13.10 - Other specified diabetes mellitus with ketoacidosis without coma Status: Acute Plan: Labile blood sugar in the past, recently BG has been controlled. A1c 10.7 On Levemir, he is a Brittle DM 1 Endocrinology has been evaluated and given recommendations on insulin and dietary intake (6) HTN (hypertension) ICD Codes: I10 - Essential (primary) hypertension Status: Chronic Plan: Continue home medications, titrate as needed Permanent Comment: Last Edited By: Jasmyne Bee on Jul 11, 2017 15:31 (7) Anemia ICD Codes: D64.9 - Anemia, unspecified Plan: Epogen with dialysis (8) Hyperkalemia ICD Codes: E87.5 - Hyperkalemia Status: Acute Plan: Improved. Continue to monitor. Problem Qualifiers (1) Osteomyelitis: Qualified Codes: M86.8X7 - Other osteomyelitis, ankle and foot (2) DKA (diabetic ketoacidoses): (3) Anemia: Qualified Codes: N18.6 - End stage renal disease; D63.1 - Anemia in chronic kidney disease; Z99.2 - Dependence on renal dialysis Joshua Perry MD Jan 13, 2018 13:00
== END 2018-01-13 14:14 | DRG 853 ==
LOC: NEPC 20:18 → NEDA 21:33 → HIMW 22:55 → HCIS 12-28 03:09 → N07B 01-03 19:24
PROVIDERS: ADMIT Internal Medicine; ATTEND Internal Medicine
PROC: 5A1D70Z Performance of Urinary Filtration, Intermittent, Less than 6 Hours Per Day (ICD-10-PCS; 2017-12-26)
PROC: 4A023N7 Measurement of Cardiac Sampling and Pressure, Left Heart, Percutaneous Approach (ICD-10-PCS; 2017-12-29)
PROC: B2111ZZ Fluoroscopy of Multiple Coronary Arteries using Low Osmolar Contrast (ICD-10-PCS; 2017-12-29)
PROC: 047S3ZZ Dilation of Left Posterior Tibial Artery, Percutaneous Approach (ICD-10-PCS; 2017-12-31)
PROC: 047R3ZZ Dilation of Right Posterior Tibial Artery, Percutaneous Approach (ICD-10-PCS; 2017-12-31)
PROC: B41D1ZZ Fluoroscopy of Aorta and Bilateral Lower Extremity Arteries using Low Osmolar Contrast (ICD-10-PCS; 2017-12-31)
PROC: 047Q3ZZ Dilation of Left Anterior Tibial Artery, Percutaneous Approach (ICD-10-PCS; principal; 2017-12-31 07:37)
DX: A41.9 Sepsis, unspecified organism (principal); E10.10 Type 1 diabetes mellitus with ketoacidosis without coma; G93.41 Metabolic encephalopathy; I32 Pericarditis in diseases classified elsewhere; I12.0 Hypertensive chronic kidney disease with stage 5 chronic kidney disease or end stage renal disease; E10.52 Type 1 diabetes mellitus with diabetic peripheral angiopathy with gangrene; I30.9 Acute pericarditis, unspecified; N18.6 End stage renal disease; M86.9 Osteomyelitis, unspecified; I42.9 Cardiomyopathy, unspecified; L03.116 Cellulitis of left lower limb; E10.621 Type 1 diabetes mellitus with foot ulcer; E87.5 Hyperkalemia; E10.22 Type 1 diabetes mellitus with diabetic chronic kidney disease; E10.42 Type 1 diabetes mellitus with diabetic polyneuropathy; E10.319 Type 1 diabetes mellitus with unspecified diabetic retinopathy without macular edema; E10.649 Type 1 diabetes mellitus with hypoglycemia without coma; E10.69 Type 1 diabetes mellitus with other specified complication; J44.9 Chronic obstructive pulmonary disease, unspecified; M19.90 Unspecified osteoarthritis, unspecified site; F32.9 Major depressive disorder, single episode, unspecified; I25.10 Atherosclerotic heart disease of native coronary artery without angina pectoris; R06.6 Hiccough; D63.1 Anemia in chronic kidney disease; N25.0 Renal osteodystrophy; E78.5 Hyperlipidemia, unspecified; Z89.422 Acquired absence of other left toe(s); Z79.51 Long term (current) use of inhaled steroids; Z99.2 Dependence on renal dialysis; Z79.4 Long term (current) use of insulin; Z87.891 Personal history of nicotine dependence; L97.519 Non-pressure chronic ulcer of other part of right foot with unspecified severity
CPT/HCPCS: 36600; 70450; 71045; 73620; 75630; 80048; 80053; 80069; 82010; 82805; 82947; 82948; 83036; 83605; 83690; 83735; 84100; 84155; 84484; 85025; 87040; 87641; 90935; 93005; 93306; 93308; 93312; 93320; 93325; 93454; 93922; 94664; 96374; 96375; 99152; C1725; C1769; C1893; J0295; J0610; J1644; J1815; J1817; J1885; J2250; J2270; J2370; J2405; J2543; J2710; J2720; J3010; J3370; J7030; J7040; J7611; Q4081; Q9967

== ENCOUNTER 2018-01-17 09:04 | Inpatient (IN) | payer MEDICARE, MEDICAID ==
[~2018-01-17] VITALS: Ht 172.7 cm; Wt 67.8 kg
[~2018-01-17 09:04] MED LIST changes: +ASPI81 CHEW; +AUGM500T7 PO; -GABA100C4 PO; -HYDR-3516 PO; -LEVA500T33 PO; +METO25TA3 PO; -UNAS3INJ IV
[2018-01-17] MEDS ORDERED: ROCURONIUM INJ 50 MG/5 ML SYRINGE IV PUSH ONE (12:00)
[2018-01-17] MEDS ORDERED: PROPOFOL 200 MG/20 ML AMP IV ONE (12:00)
[2018-01-17] MEDS ORDERED: LIDOCAINE HCL 1% PF 5 ML SYRINGE OTHER ONE (12:00)
[2018-01-17] MEDS ORDERED: ONDANSETRON HCL 4 MG/2 ML VIAL IV ONE (12:00)
[2018-01-17] MEDS ORDERED: SODIUM CHLOR 0.9% (EXCEL) INJ 250 ML IV ONE (12:00)
[2018-01-17] MEDS ORDERED: LABETALOL HCL 100 MG/20 ML VIAL IV ONE (12:00)
[2018-01-17] MEDS ORDERED: GLYCOPYRROLATE 1 MG/5 ML SYRINGE IV PUSH ONE (12:00)
[2018-01-17] MEDS ORDERED: hydrALAZINE HCL 20 MG/ML VIAL IV ONE (12:00)
[2018-01-17] MEDS ORDERED: NEOSTIGMINE 5 MG/5 ML SYRINGE IV PUSH ONE (12:00)
--- NOTE | 2018-01-17 14:15 | HHI.HP ---
History of Present Illness Chief Complaint: 57 yo male with ESRD and PAD who is here for LEFT BKA for nonhealing TMA History of Present Illness 57 yo male with PAD and ESRD, s/p TMA that is ischemic despite revascularization that is endovascularly successful; presents for BKA Past/Family/Social History Past Medical History PAD ESRD DM Past Surgical History Multiple foot procedures Multiple LE angiograms with interventions L UE AVF Social History former smoker Family History NC Home Medications Active Scripts Insulin Aspart Inj (Novolog Inj) 1,000 Unit/10 Ml Vial, 3 UNITS SQ TIDAC for diabetes for 30 Days, INJECTION 0 Refills Prov:Ebony Michel MD 01/13/18 Insulin Detemir Inj (Levemir Inj) 1,000 unit/ 10 ML Vial, 10 UNITS SQ Q12HR for diabetes for 30 Days, VIAL Do not mix with any other Insulin. Prov:Ebony Michel MD 01/13/18 Amoxicillin-Clavulanate (Augmentin) 500-125 mg Tab, 500 MG PO DAILY for Infection for 10 Days, TAB 0 Refills Prov:Vianey Anguiano MD 01/12/18 Sevelamer Carbonate (Renvela) 800 Mg Tab, 2400 MG PO TIDAC for esrd for 30 Days , TAB 0 Refills Prov:Ebony Michel MD 01/11/18 Aspirin (Tgt Aspirin) 81 Mg Chw, 81 MG CHEW DAILY for antiplatelet for 30 Days, EA 0 Refills Prov:Ebony Michel MD 01/11/18 Metoprolol Tartrate (Metoprolol Tartrate) 25 Mg Tab, 25 MG PO Q8H for hypertension for 30 Days, #90 TAB 0 Refills Prov:Ebony Michel MD 01/11/18 Hydrocodone/Acetaminophen (Hydrocodone-Acetamin 7.5-325) 7.5 Mg-325 Mg Tablet, 1 TAB PO Q4H Y for pain, #20 TAB 0 Refills Prov:Ebony Michel MD 01/08/18 Amlodipine (Norvasc) 5 Mg Tab, 5 MG PO DAILY, #30 TAB Prov:Albin Guerra MD R3 10/18/17 Budesonide-Formoterol Inh (Symbicort Inh) 160-4.5 Mcg/Act Aero, 1 PUFF INH Q12HR , #1 INHALER 2 Refills Prov:Adair Hammonds MD R1 06/29/17 Duloxetine (Duloxetine ) 30 Mg Capdr, 30 MG PO DAILY, #30 CAP 0 Refills Prov:Adair Hammonds MD R1 06/29/17 Atorvastatin (Atorvastatin) 40 Mg Tab, 40 MG PO HS for Cholesterol Management, # 30 TAB 0 Refills Prov:Adair Hammonds MD R1 06/29/17 Reported Medications Baclofen (Baclofen) 10 Mg Tab, 10 MG PO DAILY Y for hiccups, #30 TAB 0 Refills 10/04/17 Cholecalciferol (Vitamin D3) 1,000 Unit Cap, 1000 UNITS PO DAILY for Nutritional Supplement, #1 BOTTLE 0 Refills 06/27/17 B-Complex W/ C-Zn & Folic Acid (Dialyvite 800/Zinc 15) 1 Tab, 1 TAB DAILY 04/26/17 Discontinued Scripts Gabapentin (Gabapentin) 100 Mg Cap, 200 MG PO TID, #180 CAP Prov:Albin Guerra MD R3 10/18/17 Levofloxacin (Levaquin) 500 Mg Tablet, 500 MG PO Q48H, #3 TAB Prov:Albin Guerra MD R3 10/18/17 Ampicillin-Sulbactam Inj (Unasyn Inj) 3 Gm Vial, 3 GM IV DAILY for Infection, # 32 BAG 0 Refills Prov:Albin Guerra MD R3 10/06/17 Insulin Aspart Inj (Novolog Inj) 1,000 Unit/10 Ml Vial, 1-9 UNITS SQ ACHS for Blood Sugar Management, #10 ML 0 Refills sugars less than 70,(0)units; sugars 150-199,(1) unit; sugars 200-249,(3) units; sugars 250-299,(5) units; sugars 300-349,(7) units; sugars greater than 349,(9) units Prov:Albin Guerra MD R3 10/06/17 Sevelamer Carbonate (Renvela) 800 Mg Tab, 1600 MG PO TIDAC, #180 TAB Prov:Albin Guerra MD R3 10/06/17 Coded Allergies: No Known Allergies (Verified Allergy, Unknown, 01/16/18) Review of Systems Respiratory: DENIES: Apneas, Cough, Snoring, Wheezing, Hemoptysis, Sputum production, Shortness of breath Cardiovascular: DENIES: Chest pain, Palpitations, Syncope, Dyspnea on Exertion , PND, Lower Extremity Edema, Orthopnea, Claudication Physical Exam Neuro: alert, no distress, mentally ready for surgery HEENT: NC/AT Neck: no JVD Heart: reg rate, no M Lungs: clear Vascular: palpable L UE AVF Extremities: L TMA dressed pending Caprini VTE Risk Assessment Caprini VTE Risk Assessment: Mod/High Risk (score >= 2) Caprini Risk Assessment Model Point Value = 1 Point Value = 2 Point Value = 3 Point Value = 5 Age 41-60 Minor surgery BMI > 25 kg/m2 Swollen legs Varicose veins or History of unexplained or recurrent spontaneous Oral contraceptives or hormone replacement Sepsis (< 1 month) Serious lung disease, including pneumonia (< 1 month) Abnormal pulmonary function Acute myocardial infarction Congestive heart failure (< 1 month) History of inflammatory bowel disease Medical patient at bed rest Age 61-74 Arthroscopic surgery Major open surgery (> 45 min) Laparoscopic surgery (> 45 min) Malignancy Confined to bed (> 72 hours) Immobilizing plaster cast Central venous access Age >= 75 History of VTE Family history of VTE Factor V Leiden Prothrombin [id number] Lupus anticoagulant Anticardiolipin antibodies Elevated serum homocysteine Heparin-induced thrombocytopenia Other congenital or acquired thrombophilia Stroke (< 1 month) Elective arthroplasty Hip, pelvis, or leg fracture Acute spinal cord injury (< 1 month) Prophylaxis Regimen Total Risk Factor Score Risk Level Prophylaxis Regimen 0-1 Low Early ambulation 2 Moderate Order ONE of the following: *Sequential Compression Device (SCD) *Heparin 5000 units SQ BID 3-4 Higher Order ONE of the following medications: *Heparin 5000 units SQ TID *Enoxaparin/Lovenox 40 mg SQ daily (WT < 150 kg, CrCl > 30 mL/min) *Enoxaparin/Lovenox 30 mg SQ daily (WT < 150 kg, CrCl > 10-29 mL/min) *Enoxaparin/Lovenox 30 mg SQ BID (WT < 150 kg, CrCl > 30 mL/min) AND/OR *Sequential Compression Device (SCD) 5 or more Highest Order ONE of the following medications: *Heparin 5000 units SQ TID (Preferred with Epidurals) *Enoxaparin/Lovenox 40 mg SQ daily (WT < 150 kg, CrCl > 30 mL/min) *Enoxaparin/Lovenox 30 mg SQ daily (WT < 150 kg, CrCl > 10-29 mL/min) *Enoxaparin/Lovenox 30 mg SQ BID (WT < 150 kg, CrCl > 30 mL/min) AND *Sequential Compression Device (SCD) Assessment and Plan Plan L BKA Consents obtained Site marked Discharge Planning 5 days; Brother [phone] Randy Ortiz MD Jan 17, 2018 14:15
[2018-01-17] MEDS ORDERED: SODIUM CHLORID 0.9% 500 ML IV PRN (14:30)
[2018-01-17] MEDS ORDERED: INSULIN HUMAN REGULAR 1,000 UNITS/10 ML VIAL SQ PRN (14:30)
[2018-01-17] MEDS ORDERED: POVIDONE IODINE 5% (ANTISEPSIS KIT) 4 APPLICATIONS EACH NARE PRN (14:30)
[2018-01-17] MEDS ORDERED: METOPROLOL TARTRATE 25 MG TAB PO PRN (14:30)
[2018-01-17] MEDS ORDERED: LACTATED RINGER'S 1000 ML IV PRN (14:30)
[2018-01-17] MEDS ORDERED: CHLORHEXIDINE GLUCONATE 2 % 1 PACK (2 CLOTHS) TOPICAL PRN (14:30)
[2018-01-17] MEDS ORDERED: DO NOT ADM ANY ANTICOAGULANT DRUGS PRN ×2 (14:30→21:30)
[2018-01-17] MEDS ORDERED: THROMBIN (TOPICAL) 20,000 UNIT SPRAY KIT ONE (16:34)
[2018-01-17] MEDS ORDERED: ceFAZolin INJ 1,000 MG VIAL ONE (16:34)
[2018-01-17] MEDS ORDERED: VANCOMYCIN HCL 1000 MG VIAL ONE (16:47)
--- NOTE | 2018-01-17 17:36 | HHI.PR ---
cc: Randy Ortiz MD Immediate Post Op Note Procedure Date: Jan 17, 2018 Pre Op Diagnosis: PAD , ischemic L TMA Post Op Diagnosis: PAD, ischemic L TMA Surgeon: Randy Ortiz Director [facility](s): Eliu Eduardo Procedure: L BKA Findings: all tibial vessels with palpable pulses Complications: none Specimen(s) removed: LEFT leg Estimated blood loss: 150mL Anesthesia: General Drains: None Fluids: 350mL IVF Patient Condition: Fair Implant/Devices: SEE IMPLANT LOG (if applicable) Date/Time of Procedure: SEE SURGICAL CARE RECORD Randy Ortiz MD Jan 17, 2018 17:36
[2018-01-17] MEDS ORDERED: INSULIN NovoLIN REGULAR SUPPLEMENTAL SCALE ONE (17:43)
[2018-01-17] MEDS ORDERED: BISACODYL 10 MG SUPP RECTAL PRN (17:45)
[2018-01-17] MEDS ORDERED: SENNOSIDES 8.6 MG TAB PO PRN (17:45)
[2018-01-17] MEDS ORDERED: BACLOFEN 10 MG TAB PO PRN (17:45)
[2018-01-17] MEDS ORDERED: INSULIN REGULAR (IV INFUSION) 100 UNITS in SODIUM CHLORIDE 0.9% INJ 99 ML IV PRN (17:45)
[2018-01-17] MEDS ORDERED: LACTULOSE SYRUP 20 GM/30 ML CUP PO PRN (17:45)
[2018-01-17] MEDS ORDERED: MISC INFORMATION OTHER ONE (17:45)
[2018-01-17] MEDS ORDERED: *morphine SULFATE 4 MG/ML PERIprocedure ONLY ONE ×2 (18:06→18:43)
--- NOTE | 2018-01-17 18:13 | MP ---
cc: Randy Ortiz MD, Robert J MD DATE OF OPERATION: 01/17/2018 PREOPERATIVE DIAGNOSIS: Left lower extremity nonhealing transmetatarsal amputation. POSTOPERATIVE DIAGNOSIS: Left lower extremity nonhealing transmetatarsal amputation. PROCEDURE PERFORMED: Left below-knee amputation. SURGEON: Randy Ortiz MD RECYCLE WORKER SURGEON: Eliu Eduardo MD ANESTHESIA: General. INDICATIONS: Mr. Aguilera is a 57-year-old gentleman with end-stage renal disease and diabetes as well as peripheral arterial disease who was taken to the operating room for a left below-knee amputation electively after a failed transmetatarsal amputation. DESCRIPTION OF PROCEDURE: Consent was obtained from the patient and he was taken to the operating room and placed supine on the operating table. An appropriate timeout was taken to ensure the patient's identity, operative site and the planned procedure. The administration of a gram of vancomycin was initiated prior to skin incision and will be discontinued after a single preoperative dose. Vancomycin was chosen because of the patient's end-stage renal disease. Everyone in the room agreed to the timeout and we proceeded. Left leg was prepped and draped. An incision was made a hand's breadth below the tibial tuberosity, carried down through subcutaneous tissue with electrocautery. The tibia was transected and the fibula was transected with an oscillating saw. A posterior flap was made with electrocautery and the leg was passed off the table as a specimen. The fibula was then resected up to 1 cm cephalad to the tibia transection. The anterior border of the tibia was bevelled and the edges were smoothed to avoid a pressure ulcer. The wound was irrigated and made hemostatic with electrocautery and suture and the wound was closed with 2-0 Polysorb and skin brenda. Sponge and needle counts were correct at the end of the case. I was present, scrubbed, and performed the entire procedure. Randy Ortiz MD RJF/SA/rh , 05:42 PM , 06:01 PM
[2018-01-17] MEDS ORDERED: *morphine SULFATE 8 MG/ML PERIprocedure ONLY ONE (18:17)
[2018-01-17] MEDS ORDERED: *ENALAPRILAT 1.25 MG/ML VIAL PERIprocedural Use ONLY ONE (18:21)
--- NOTE | 2018-01-17 18:35 | PD.CONS ---
HPI Service Critical Care Medicine Consult Requested By Dr. Ortiz Reason for Consult medical management, insulin drip Primary Care Physician Naresh Juarez MD History of Present Illness History of Present Illness 57 yo AAM with PMH of ESRD on HD M/W/F, DM, PAD, HTN, COPD, tobacco abuse who failed revascularization Left LE and underwent left BKA under GETA by Dr. Ortiz , EBL 150cc. Tolerated procedure well, was extubated and transferred to PACU. He is on an insulin drip for uncontrolled DM postoperatively. Critical care was consulted for medical management, insulin drip. Review of Systems ROS Limitations: Clinical Condition, drowsy secondary to post anesthesia Past Family Social History Allergies: Coded Allergies: No Known Allergies (Verified Allergy, Unknown, 10/16/17) Past Medical History ESRD on HD Hypertension Depression Peripheral neuropathy Peripheral arterial disease Diabetes mellitus Osteomyelitis COPD Tobacco abuse Past Surgical History Left upper extremity fistula L second toe amputation 07/11/17 L posterior tibial artery angioplasty 09/24/17 I and D L foot 09/28/17 Left foot transmetatarsal amputation 09/26/17 (Dr. Judge) Right IJ Ta Reported Medications Home Medications Active Scripts Insulin Aspart Inj (Novolog Inj) 1,000 Unit/10 Ml Vial, 3 UNITS SQ TIDAC for diabetes for 30 Days, INJECTION 0 Refills Prov:Ebony Michel MD 01/13/18 Insulin Detemir Inj (Levemir Inj) 1,000 unit/ 10 ML Vial, 10 UNITS SQ Q12HR for diabetes for 30 Days, VIAL Do not mix with any other Insulin. Prov:Ebony Michel MD 01/13/18 Amoxicillin-Clavulanate (Augmentin) 500-125 mg Tab, 500 MG PO DAILY for Infection for 10 Days, TAB 0 Refills Prov:Vianey Anguiano MD 01/12/18 Sevelamer Carbonate (Renvela) 800 Mg Tab, 2400 MG PO TIDAC for esrd for 30 Days , TAB 0 Refills Prov:Ebony Michel MD 01/11/18 Aspirin (Tgt Aspirin) 81 Mg Chw, 81 MG CHEW DAILY for antiplatelet for 30 Days, EA 0 Refills Prov:Ebony Michel MD 01/11/18 Metoprolol Tartrate (Metoprolol Tartrate) 25 Mg Tab, 25 MG PO Q8H for hypertension for 30 Days, #90 TAB 0 Refills Prov:Ebony Michel MD 01/11/18 Hydrocodone/Acetaminophen (Hydrocodone-Acetamin 7.5-325) 7.5 Mg-325 Mg Tablet, 1 TAB PO Q4H Y for pain, #20 TAB 0 Refills Prov:Ebony Michel MD 01/08/18 Amlodipine (Norvasc) 5 Mg Tab, 5 MG PO DAILY, #30 TAB Prov:Albin Guerra MD R3 10/18/17 Budesonide-Formoterol Inh (Symbicort Inh) 160-4.5 Mcg/Act Aero, 1 PUFF INH Q12HR , #1 INHALER 2 Refills Prov:Adair Hammonds MD R1 06/29/[address] (Duloxetine DR) 30 Mg Capdr, 30 MG PO DAILY, #30 CAP 0 Refills Prov:Adair Hammonds MD R1 06/29/17 Atorvastatin (Atorvastatin) 40 Mg Tab, 40 MG PO HS for Cholesterol Management, # 30 TAB 0 Refills Prov:Adair Hammonds MD R1 06/29/17 Reported Medications Baclofen (Baclofen) 10 Mg Tab, 10 MG PO DAILY Y for hiccups, #30 TAB 0 Refills 10/04/17 Cholecalciferol (Vitamin D3) 1,000 Unit Cap, 1000 UNITS PO DAILY for Nutritional Supplement, #1 BOTTLE 0 Refills 06/27/17 B-Complex W/ C-Zn & Folic Acid (Dialyvite 800/Zinc 15) 1 Tab, 1 TAB DAILY 04/26/17 Symbicort 160/4.52 puffs inhaled twice a day Family History Unable to obtain from patient due to clinical condition Social History (from EMR) former smoker. He has no family that lives locally. Has 2 daughters in [place]. Physical Exam Vital Signs Vital Signs Date Time Temp Pulse Resp B/P (MAP) Pulse Ox O2 Delivery O2 Flow Rate FiO2 01/17/18 14:15 98.2 102 20 168/92 (117) 99 Physical Exam HEENT/Neuro: Pallor present, No icterus, tongue moist, JAZLYN, Awake and alert,, nonfocal grossly, moving both upper extremity is Neck: No JVD Chest/pulmonary: CTA bilaterally Cardiovascular: S1-S2 regular no gallop or murmur GI/abdomen: Soft, nontender, bowel sounds present Extremities: Dressing over left BKA stump site clean dry and intact. Black is discoloration/changes over fingertips and upper extremities appeared chronic.. Left upper extremity AV graft noted. Vas-Cath in place Laboratory Laboratory Tests Test 01/17/18 14:25 Potassium Level 5.2 Result Diagram: 01/17/18 1425 Assessment and Plan Assessment and Plan Left BKA POD 0 ESRD on HD Hypertension Depression Peripheral neuropathy Peripheral arterial disease Diabetes mellitus COPD Plan: -Patient being admitted to CVICU -Resume home antihypertensives. Labetalol when necessary, IV Vasotec when necessary for systolic blood pressure greater than 160. - Continue insulin drip for glycemic control. Once tolerating by mouth continue resume home insulin regimen and titrate off insulin drip. - Bronchodilators when necessary, supplemental O2 as needed - Nephrology to follow for hemodialysis - Follow-up postop CBC/CMP which were ordered by me and are pending at this time - Critical care will continue to follow. - Heparin for DVT prophylaxis when okay with vascular surgery. -Dr. Ortiz following postoperatively following left BKA. Mando Navarro MD Jan 17, 2018 18:35
[2018-01-17] MEDS ORDERED: METOPROLOL TARTRATE 5 MG/5 ML VIAL ONE ×2 (18:41→18:42)
[2018-01-17 18:47] LABS: AUTOMATED NEUTROPHIL # 7.9 TH/MM3 (1.8-7.7); BASOPHIL # 0.2 TH/MM3 (0-0.2); BASOPHIL % 1.5 % (0.0-2.0); EOSINOPHIL # 0.1 TH/MM3 (0-0.4); EOSINOPHIL % 1.2 % (0.0-4.0); HEMATOCRIT 31.3 % (39.0-51.0); HEMOGLOBIN 9.6 GM/DL (13.0-17.0); LYMPH % 12.2 % (9.0-44.0); LYMPHOCYTE # 1.2 TH/MM3 (1.0-4.8); MEAN CELL VOLUME 74.6 FL (80.0-100.0); MEAN CORPUSCULAR HEMOGLOBIN 22.9 PG (27.0-34.0); MEAN CORPUSCULAR HGB CONC 30.7 % (32.0-36.0); MEAN PLATELET VOLUME 9.1 FL (7.0-11.0); MONO % 6.7 % (0.0-8.0); MONOCYTE # 0.7 TH/MM3 (0-0.9); NEUT % 78.4 % (16.0-70.0); PLATELET COUNT 276 TH/MM3 (150-450); RED CELL DISTRIBUTION WIDTH 22.1 % (11.6-17.2)
[2018-01-17 19:26] LABS: BICARBONATE 26.3 MEQ/L (21.0-32.0); CALCIUM 8.3 MG/DL (8.5-10.1)
[2018-01-17 20:00] VITALS: BP 145/73; PULSE 66; RESP 18; TEMP 98.3; O2SAT 99
[2018-01-17 20:04] LABS: CREATININE 10.53 MG/DL (0.60-1.30)
--- NOTE | 2018-01-17 20:16 | EKG ---
Date Performed: 01/17/2018 Time Performed: 14:18:01 PTAGE: 57 years EKG: SINUS TACHYCARDIA LEFT ATRIAL ENLARGEMENT INDETERMINATE AXIS ABNORMAL ECG PREVIOUS TRACING : 12/30/2017 06.43 Compared to previous tracing, left atrial abnormality is no w more pronounced, diffuse ST elevation is no longer evident. DOCTOR: Chris Heaton Interpretating Date/Time 01/17/2018 20:14:00
[2018-01-17] MEDS: BUDESONIDE-FORMOTEROL 160/4.5 MCG INHALER INH SCH (21:00)
[2018-01-17] MEDS: ATORVASTATIN 40 MG TAB PO SCH (21:37)
[2018-01-17] MEDS: METOPROLOL TARTRATE 25 MG TAB PO SCH (21:37)
[2018-01-17] MEDS: MORPHINE SULFATE 2 MG/ML SYRINGE IV PRN (21:37)
[2018-01-17] MEDS: DOCUSATE SODIUM 50 MG/SENNA 8.6 MG TAB PO SCH (21:37)
[2018-01-17 22:17] VITALS: O2SAT 99
[2018-01-17 23:00] VITALS: BP 143/70; PULSE 66; PULSE 69; RESP 18; TEMP 98.2; O2SAT 99
[2018-01-18] VITALS (10 sets, daily range): BP systolic 144–160; BP diastolic 66–78; PULSE 76–100; RESP 16–18; TEMP 97.6–99.7; O2SAT 93–98
[2018-01-18] MEDS: HYDROmorphone HCL 2 MG TAB PO PRN ×3 (00:31→21:45)
[2018-01-18] MEDS: MORPHINE SULFATE 2 MG/ML SYRINGE IV PRN ×5 (01:56→21:56)
[2018-01-18 05:09] LABS: HEMATOCRIT 33.7 % (39.0-51.0); HEMOGLOBIN 10.4 GM/DL (13.0-17.0); MEAN CELL VOLUME 74.6 FL (80.0-100.0); MEAN CORPUSCULAR HEMOGLOBIN 23.1 PG (27.0-34.0); MEAN PLATELET VOLUME 9.2 FL (7.0-11.0); PLATELET COUNT 308 TH/MM3 (150-450); RED BLOOD COUNT 4.51 MIL/MM3 (4.50-5.90); RED CELL DISTRIBUTION WIDTH 21.8 % (11.6-17.2); WHITE BLOOD COUNT 12.6 TH/MM3 (4.0-11.0)
[2018-01-18] MEDS: METOPROLOL TARTRATE 25 MG TAB PO SCH ×3 (05:16→21:44)
[2018-01-18 05:56] LABS: BICARBONATE 26.7 MEQ/L (21.0-32.0); CALCIUM 9.1 MG/DL (8.5-10.1)
[2018-01-18 06:13] LABS: CREATININE 11.47 MG/DL (0.60-1.30)
[2018-01-18] MEDS ORDERED: SODIUM CHLOR 0.9% 1000 ML INJ 1,000 ML OTHER PRN ×2 (08:13)
[2018-01-18] MEDS ORDERED: SODIUM CHLOR 0.9% 1000 ML INJ 1,000 ML IV PRN (08:13)
[2018-01-18] MEDS ORDERED: HEPARIN SODIUM - IV 10,000 UNITS/10 ML VIAL IV FLUSH PRN (08:15)
[2018-01-18] MEDS ORDERED: cloNIDine HCL 0.1 MG TAB PO PRN (08:15)
[2018-01-18] MEDS ORDERED: HEPARIN SODIUM - IV 10,000 UNITS/10 ML VIAL PRN (08:15)
[2018-01-18] MEDS ORDERED: NITROGLYCERIN 0.4 MG SL 25 TABS/BTL SL PRN (08:15)
[2018-01-18] MEDS ORDERED: diphenhydrAMINE HCL 25 MG CAP PO PRN (08:15)
[2018-01-18] MEDS ORDERED: MANNITOL 12.5 GM/50 ML VIAL IV PRN (08:15)
[2018-01-18] MEDS ORDERED: GENTAMICIN SULFATE 20 MG/2 ML VIAL OTHER PRN (08:15)
[2018-01-18] MEDS ORDERED: ALBUMIN 25% INJ 100 ML IV PRN (08:15)
[2018-01-18] MEDS ORDERED: ACETAMINOPHEN 325 MG TAB PO PRN (08:15)
[2018-01-18] MEDS ORDERED: ONDANSETRON HCL 4 MG/2 ML VIAL IV PUSH PRN (08:15)
--- NOTE | 2018-01-18 08:29 | HHI.CCPN ---
Subjective Remarks/Hospital Course 57 yo AAM with PMH of ESRD on HD M/W/F, DM, PAD, HTN, COPD, tobacco abuse who failed revascularization Left LE and underwent left BKA under GETA by Dr. Ortiz , EBL 150cc. Tolerated procedure well, was extubated and transferred to PACU. He is on an insulin drip for uncontrolled DM postoperatively. Critical care was consulted for medical management, insulin drip. 01/18: Blood sugar control adequate on insulin GTT, now hypoglycemic. Transition to pre-meal NovoLog and Levemir 10 units every 12 after starting ADA, renal diet. Nephrology for dialysis Objective Vital Signs Date Time Temp Pulse Resp B/P (MAP) Pulse Ox O2 Delivery O2 Flow Rate FiO2 01/18/18 03:20 22 01/18/18 03:00 77 01/18/18 03:00 98.5 160/75 (103) 98 01/17/18 22:17 Nasal Cannula 2.00 Intake and Output 01/18/18 01/18/18 01/19/18 08:00 16:00 00:00 Intake Total 450 ml Output Total 0 ml Balance 450 ml Result Diagram: 01/18/18 04301/18/18 0430 Objective Remarks HEENT/Neuro: Pallor present, No icterus, tongue moist, JAZLYN, Awake and alert,, nonfocal grossly, moving both upper extremity Neck: No JVD Chest/pulmonary: CTA bilaterally Cardiovascular: S1-S2 regular no gallop or murmur GI/abdomen: Soft, nontender, bowel sounds present Extremities: Dressing over left BKA stump site clean dry and intact. Black is discoloration/changes over fingertips and upper extremities appeared chronic. Left upper extremity AV graft noted. Vas-Cath in place A/P Assessment and Plan Left BKA POD 1 ESRD on HD Uncontrolled diabetes on Insulin gtt Hypertension Depression Peripheral neuropathy Peripheral arterial disease Diabetes mellitus COPD Plan: -Transition to home lower lobe, Levemir 10 units every 12. Start ADA renal diet, discontinue insulin drip - Resume home antihypertensives. Labetalol when necessary, IV Vasotec when necessary for systolic blood pressure greater than 160. - Bronchodilators when necessary, supplemental O2 as needed - Nephrology to follow for hemodialysis - Follow-up postop CBC/CMP in am - Critical care will continue to follow while in ICU - Heparin for DVT prophylaxis when okay with vascular surgery. - Dr. Ortiz following postoperatively following left BKA. Sarath Nowak MD Jan 18, 2018 08:29
[2018-01-18] MEDS: DOCUSATE SODIUM 50 MG/SENNA 8.6 MG TAB PO SCH ×2 (08:39→21:44)
[2018-01-18] MEDS: amLODIPine BESYLATE 5 MG TAB PO SCH (08:39)
[2018-01-18] MEDS: INSULIN DETEMIR 100 UNITS/ML VIAL SQ SCH ×2 (08:39→21:00)
[2018-01-18] MEDS: INSULIN ASPART 1,000 UNITS/10 ML VIAL SQ SCH ×3 (08:39→17:31)
[2018-01-18] MEDS: CHOLECALCIFEROL (VIT D3) 1000 UNIT TAB PO SCH (08:39)
[2018-01-18] MEDS: ASPIRIN 81 MG CHEW TAB CHEW SCH (08:39)
--- NOTE | 2018-01-18 08:53 | PD.VS.PN ---
Subjective POD #: 1 Procedure(s): L BKA Subjective/Hospital Course ICU for blood sugar management resting this morning Objective Vitals/I&O Date Time Temp Pulse Resp B/P (MAP) Pulse Ox O2 Delivery O2 Flow Rate FiO2 01/18/18 03:20 22 01/18/18 03:00 77 01/18/18 03:00 98.5 77 18 160/75 (103) 98 01/18/18 02:05 20 01/18/18 01:35 18 01/17/18 23:00 69 01/17/18 23:00 98.2 66 18 143/70 (94) 99 01/17/18 22:17 99 Nasal Cannula 2.00 01/17/18 20:00 66 01/17/18 20:00 98.0 68 12 145/74 (97) 100 Nasal Cannula 2 01/17/18 20:00 98.3 66 18 145/73 (97) 99 01/17/18 19:45 69 12 148/72 (97) 100 Nasal Cannula 2 01/17/18 19:30 69 12 150/74 (99) 100 Nasal Cannula 2 01/17/18 19:15 70 12 149/74 (99) 100 Nasal Cannula 2 01/17/18 19:00 69 12 150/76 (100) 100 Nasal Cannula 2 01/17/18 18:45 72 13 192/81 (118) 100 Nasal Cannula 2 01/17/18 18:30 74 12 215/87 (129) 100 Nasal Cannula 2 01/17/18 18:15 74 21 182/75 (110) 100 Nasal Cannula 2 01/17/18 18:00 70 15 185/64 (104) 95 Nasal Cannula 2 01/17/18 17:49 97.5 72 17 204/85 (124) 98 Nasal Cannula 2 01/17/18 14:15 98.2 102 20 168/92 (117) 99 01/18/18 01/18/18 01/18/18 07:00 15:00 23:00 Intake Total 450 ml Output Total 0 ml Balance 450 ml Exam: resting L BKA wrapped Laboratory Laboratory Tests Test 01/17/18 14:25 01/17/18 18:32 01/18/18 04:30 Potassium Level 5.2 4.3 4.4 White Blood Count 10.0 12.6 Red Blood Count 4.20 4.51 Hemoglobin 9.6 10.4 Hematocrit 31.3 33.7 Mean Corpuscular Volume 74.6 74.6 Mean Corpuscular Hemoglobin 22.9 23.1 Mean Corpuscular Hemoglobin Concent 30.7 31.0 Red Cell Distribution Width 22.1 21.8 Platelet Count 276 308 Mean Platelet Volume 9.1 9.2 Neutrophils (%) (Auto) 78.4 Lymphocytes (%) (Auto) 12.2 Monocytes (%) (Auto) 6.7 Eosinophils (%) (Auto) 1.2 Basophils (%) (Auto) 1.5 Neutrophils # (Auto) 7.9 Lymphocytes # (Auto) 1.2 Monocytes # (Auto) 0.7 Eosinophils # (Auto) 0.1 Basophils # (Auto) 0.2 CBC Comment DIFF FINAL Differential Comment Blood Urea Nitrogen 70 74 Creatinine 10.53 11.47 Random Glucose 323 72 Calcium Level 8.3 9.1 Sodium Level 137 141 Chloride Level 99 100 Carbon Dioxide Level 26.3 26.7 Anion Gap 12 14 Estimat Glomerular Filtration Rate 6 6 Assessment and Plan Plan POD#1 s/p L BKA 1. ICU/medical management of HTN, ESRD, DM 2. OOB TC today and PT for s/p BKA 3. Dressing on until Sunday 4. Plan for RIGHT leg and RIGHT arm angiogram on Sunday Discharge Planning likely to rehab Sunday Brother [phone] Randy Ortiz MD Jan 18, 2018 08:53
[2018-01-18] MEDS ORDERED: FOLIC ACID SCH (09:00)
[2018-01-18] MEDS: BUDESONIDE-FORMOTEROL 160/4.5 MCG INHALER INH SCH ×2 (09:00→21:00)
[2018-01-18] MEDS ORDERED: ASCORBIC ACID SCH (09:00)
[2018-01-18] MEDS ORDERED: B COMPLEX SCH (09:00)
[2018-01-18] MEDS ORDERED: ZINC SCH (09:00)
[2018-01-18] MEDS ORDERED: [UNRECOGNIZED DRUG - OTHER] PO SCH (09:00)
--- NOTE | 2018-01-18 11:59 | PD.CONS ---
HPI Service Nephrology Consult Requested By Reason for Consult ESRD, dialysis management Primary Care Physician Naresh Juarez MD History of Present Illness THis is a 57 y/o AAM patient on HD MWF who was admitted following planned BKA on left. He had non healing wound with osteomyelitis s/p TMA several months ago. Hx includes DM I in which he is a brittle diabetic with several admission for DKA, also includes anemia, HTN, CAD, COPD, PAD. He also has discoloration to several fingers on right hand, also has a wound on his right toe that has failed to heal. An angio of right upper and lower extremities is planned for Sunday. We were consulted to assist with management of his dialysis. (Jasmyne Bee) Review of Systems Constitutional: DENIES: Fatigue, Fever Respiratory: DENIES: Shortness of breath Cardiovascular: DENIES: Chest pain Gastrointestinal: DENIES: Abdominal pain Musculoskeletal: COMPLAINS OF: Joint pain, Muscle aches (Jasmyne Bee) Past Family Social History Allergies: Coded Allergies: No Known Allergies (Verified Allergy, Unknown, 01/17/18) Past Medical History End Stage Renal failure due to diabetic nephropathy since 2013. TTS schedule. * AV fistula on left arm IDDM HTN Anemia HLD COPD Metabolic Bone Disorder Past Surgical History Left second toe amputation Left upper extremity fistula L second toe amputation 07/11/17 L posterior tibial artery angioplasty 09/24/17 RLE angioplasty 12/2017 I and D L foot 09/28/17 Left foot transmetatarsal amputation 09/26/17 (Dr. Judge) Right IJ Ta 09/1017 Reported Medications Insulin Aspart Inj (Novolog Inj) 1,000 Unit/10 Ml Vial, 3 UNITS SQ TIDAC for diabetes for 30 Days, INJECTION 0 Refills Prov:Ebony Michel MD 01/13/18 Insulin Detemir Inj (Levemir Inj) 1,000 unit/ 10 ML Vial, 10 UNITS SQ Q12HR for diabetes for 30 Days, VIAL Do not mix with any other Insulin. Prov:Ebony Michel MD 01/13/18 Amoxicillin-Clavulanate (Augmentin) 500-125 mg Tab, 500 MG PO DAILY for Infection for 10 Days, TAB 0 Refills Prov:Vianey Anguiano MD 01/12/18 Sevelamer Carbonate (Renvela) 800 Mg Tab, 2400 MG PO TIDAC for esrd for 30 Days , TAB 0 Refills Prov:Ebony Michel MD 01/11/18 Aspirin (Tgt Aspirin) 81 Mg Chw, 81 MG CHEW DAILY for antiplatelet for 30 Days, EA 0 Refills Prov:Ebony Michel MD 01/11/18 Metoprolol Tartrate (Metoprolol Tartrate) 25 Mg Tab, 25 MG PO Q8H for hypertension for 30 Days, #90 TAB 0 Refills Prov:Ebony Michel MD 01/11/18 Hydrocodone/Acetaminophen (Hydrocodone-Acetamin 7.5-325) 7.5 Mg-325 Mg Tablet, 1 TAB PO Q4H Y for pain, #20 TAB 0 Refills Prov:Ebony Michel MD 01/08/18 Amlodipine (Norvasc) 5 Mg Tab, 5 MG PO DAILY, #30 TAB Prov:Albin Guerra MD R3 10/18/17 Budesonide-Formoterol Inh (Symbicort Inh) 160-4.5 Mcg/Act Aero, 1 PUFF INH Q12HR , #1 INHALER 2 Refills Prov:Adair Hammonds MD R1 06/29/[address] (Duloxetine DR) 30 Mg Capdr, 30 MG PO DAILY, #30 CAP 0 Refills Prov:Adair Hammonds MD R1 06/29/17 Atorvastatin (Atorvastatin) 40 Mg Tab, 40 MG PO HS for Cholesterol Management, # 30 TAB 0 Refills Prov:Adair Hammonds MD R1 06/29/17 Reported Medications Baclofen (Baclofen) 10 Mg Tab, 10 MG PO DAILY Y for hiccups, #30 TAB 0 Refills 10/04/17 Cholecalciferol (Vitamin D3) 1,000 Unit Cap, 1000 UNITS PO DAILY for Nutritional Supplement, #1 BOTTLE 0 Refills 06/27/17 B-Complex W/ C-Zn & Folic Acid (Dialyvite 800/Zinc 15) 1 Tab, 1 TAB DAILY 04/26/17 Active Ordered Medications Current Medications Medications (Trade) Dose Ordered Sig/April Route Start Time Stop Time Status Last Admin Lactated Ringer's 1,000 ml @ 30 mls/hr Q24H PRN IV 4/5/18 14:30 01/20/18 14:29 Sodium Chloride 500 ml @ 30 mls/hr [id number] PRN IV 01/17/18 14:30 01/20/18 14:29 01/17/18 14:15 (Betadine 5% Antisepsis Kit) 1 applic GOLD NIB GRINDER PRN EACH NARE 01/17/18 14:30 01/20/18 14:29 (Chlorhexidine 2% Cloth) 3 pack GOLD NIB GRINDER PRN TOPICAL 01/17/18 14:30 01/20/18 14:29 01/17/18 14:15 (Roxicodone) 5 mg Q4H PRN PO 01/17/18 17:45 01/18/18 11:26 (Dilaudid) 2 mg Q4H PRN PO 01/17/18 17:45 01/18/18 00:31 (Morphine Inj) 2 mg Q1H PRN IV 01/17/18 18:45 01/18/18 05:19 (Heparin Inj) 5,000 units Q8H SQ 01/18/18 17:00 (Odette-Colace) 1 tab BID PO 01/17/18 21:00 01/18/18 08:39 (Senokot) 17.2 mg Q12H PRN PO 01/17/18 17:45 (Dulcolax Supp) 10 mg DAILY PRN RECTAL 01/17/18 17:45 (Lactulose Liq) 30 ml DAILY PRN PO 01/17/18 17:45 (Norvasc) 5 mg DAILY PO 01/18/18 09:00 01/18/18 08:39 (Aspirin Chew) 81 mg DAILY CHEW 01/18/18 09:00 01/18/18 08:39 (Lipitor) 40 mg HS PO 01/17/18 21:00 01/17/18 21:37 (Lioresal) 10 mg DAILY PRN PO 01/17/18 17:45 (Symbicort 160-4.5 Mcg Inh) 1 puff Q12HR INH 01/17/18 21:00 (Vitamin D3) 1,000 units DAILY PO 01/18/18 09:00 01/18/18 08:39 (Cymbalta Dr) 30 mg DAILY PO 01/18/18 09:00 (Lopressor) 25 mg Q8HR PO 01/17/18 22:00 01/18/18 05:16 (Renvela) 2,400 mg TIDAC PO 01/18/18 08:00 (D50w (Vial) Inj) 50 ml UNSCH PRN IV PUSH 01/17/18 17:45 Patient Own Medication PT OWN MED: DIALYVITE W/ C-ZN-FO... DAILY PO 01/18/18 09:00 Future Hold Miscellaneous Information ALL NURSING DEPARTME... UNSCH PRN .XX 01/17/18 21:30 01/18/18 21:29 (NovoLOG INJ) 3 units TIDAC SQ 01/18/18 08:00 01/18/18 08:39 (Levemir Inj) 10 units Q12HR SQ 01/18/18 09:00 01/18/18 08:39 Sodium Chloride 1,000 ml @ 0 mls/hr Q0M PRN OTHER 01/18/18 08:13 (Heparin Inj) 8,000 units UNSCH PRN IV FLUSH 01/18/18 08:15 Sodium Chloride 1,000 ml @ 200 mls/hr Q5H PRN IV 01/18/18 08:13 Sodium Chloride 1,000 ml @ 0 mls/hr Q0M PRN OTHER 01/18/18 08:13 (Mannitol Inj) 12.5 gm UNSCH PRN IV 01/18/18 08:15 Albumin Human 100 ml @ 60 mls/hr UNSCH PRN IV 01/18/18 08:15 (NS Flush) 5 ml UNSCH PRN IV FLUSH 01/18/18 08:15 (Heparin Inj) UNSCH PRN .XX 01/18/18 08:15 (Gentamicin Inj) 20 mg UNSCH PRN OTHER 01/18/18 08:15 (Zofran Inj) 4 mg UNSCH PRN IV PUSH 01/18/18 08:15 (Tylenol) 650 mg UNSCH PRN PO 01/18/18 08:15 (Benadryl) 25 mg UNSCH PRN PO 01/18/18 08:15 (Nitrostat Sl) 0.4 mg UNSCH PRN SL 01/18/18 08:15 (Catapres) 0.1 mg UNSCH PRN PO 01/18/18 08:15 (Epogen Inj) 4,000 units UNSCH PRN IV PUSH 01/18/18 08:15 (Gelfoam 12 Mm/7 Mm Top) 1 foam UNSCH PRN TOP 01/18/18 08:15 Family History Diabetes type I Social History Current Smoker Hx of drug use, not current Residing in long-term, previously homeless Full code Unemployed (Cristal,Jasmyneantonio GOMEZ) Physical Exam Vital Signs Vital Signs Date Time Temp Pulse Resp B/P (MAP) Pulse Ox O2 Delivery O2 Flow Rate FiO2 01/18/18 03:20 22 01/18/18 03:00 77 01/18/18 03:00 98.5 77 18 160/75 (103) 98 01/18/18 02:05 20 01/18/18 01:35 18 01/17/18 23:00 69 01/17/18 23:00 98.2 66 18 143/70 (94) 99 01/17/18 22:17 99 Nasal Cannula 2.00 01/17/18 20:00 66 01/17/18 20:00 98.0 68 12 145/74 (97) 100 Nasal Cannula 2 01/17/18 20:00 98.3 66 18 145/73 (97) 99 01/17/18 19:45 69 12 148/72 (97) 100 Nasal Cannula 2 01/17/18 19:30 69 12 150/74 (99) 100 Nasal Cannula 2 01/17/18 19:15 70 12 149/74 (99) 100 Nasal Cannula 2 01/17/18 19:00 69 12 150/76 (100) 100 Nasal Cannula 2 01/17/18 18:45 72 13 192/81 (118) 100 Nasal Cannula 2 01/17/18 18:30 74 12 215/87 (129) 100 Nasal Cannula 2 01/17/18 18:15 74 21 182/75 (110) 100 Nasal Cannula 2 01/17/18 18:00 70 15 185/64 (104) 95 Nasal Cannula 2 01/17/18 17:49 97.5 72 17 204/85 (124) 98 Nasal Cannula 2 01/17/18 14:15 98.2 102 20 168/92 (117) 99 Physical Exam young AAM lying in bed, eyes closed but opens to tactile stimulation S1/S2, RRR, no murmurs or rubs lungs clear in all valdez abdomen soft, non tender, non distended ext: no edema; LUE AVF, + thrill/bruit; right finger tips with darkened areas left BKA, dressing intact right foot dressing place, unable to assess Ta right chest Laboratory Laboratory Tests Test 01/17/18 14:25 01/17/18 18:32 01/18/18 04:30 Potassium Level 5.2 4.3 4.4 White Blood Count 10.0 12.6 Red Blood Count 4.20 4.51 Hemoglobin 9.6 10.4 Hematocrit 31.3 33.7 Mean Corpuscular Volume 74.6 74.6 Mean Corpuscular Hemoglobin 22.9 23.1 Mean Corpuscular Hemoglobin Concent 30.7 31.0 Red Cell Distribution Width 22.1 21.8 Platelet Count 276 308 Mean Platelet Volume 9.1 9.2 Neutrophils (%) (Auto) 78.4 Lymphocytes (%) (Auto) 12.2 Monocytes (%) (Auto) 6.7 Eosinophils (%) (Auto) 1.2 Basophils (%) (Auto) 1.5 Neutrophils # (Auto) 7.9 Lymphocytes # (Auto) 1.2 Monocytes # (Auto) 0.7 Eosinophils # (Auto) 0.1 Basophils # (Auto) 0.2 CBC Comment DIFF FINAL Differential Comment Blood Urea Nitrogen 70 74 Creatinine 10.53 11.47 Random Glucose 323 72 Calcium Level 8.3 9.1 Sodium Level 137 141 Chloride Level 99 100 Carbon Dioxide Level 26.3 26.7 Anion Gap 12 14 Estimat Glomerular Filtration Rate 6 6 Phosphorus Level 7.5 (Jasmyne Bee) Result Diagram: 01/18/1842901/18/18 043 Assessment and Plan Problem List: (1) ESRD (end stage renal disease) ICD Codes: N18.6 - End-stage renal disease Status: Resolved Plan: HD MWF, due today, orders entered Patent AVF for dialysis Monitor labs intermittently Avoid IVF administration On sevelamer for metabolic bone disorder. Needs better phosphorus control, advised medication compliance (2) PAD (peripheral artery disease) ICD Codes: I73.9 - Peripheral vascular disease, unspecified Status: Chronic Plan: S/p L BKA Angio of RUE and RLE planned for sunday Management per vascular. Wound care Pain control WBC are elevated, not on antibiotics. It is unclear if we can remove Ta catheter. Consider ID consultation to assist. (3) HTN (hypertension) ICD Codes: I10 - Essential (primary) hypertension Status: Chronic Plan: Resume home medication, titrate to effect Permanent Comment: Last Edited By: Jasmyne Bee on Jul 11, 2017 15:31 (4) DM (diabetes mellitus) ICD Codes: E11.9 - Type 2 diabetes mellitus without complications Status: Chronic Plan: Maintain glucose 140-180 mg/dL Needs to eat regularly He is a brittle diabetic (5) Anemia ICD Codes: D64.9 - Anemia, unspecified Plan: Epogen per protocol. (Jasmyne Bee) Assessment and Plan patient was seen and examined. Agree with above assessment and plan. Dialysis MWF. Vascular surgery followup. (Maurice Schultz MD) Jasmyne Bee Jan 18, 2018 11:59 Maurice Schultz MD Jan 18, 2018 14:49
[2018-01-18] MEDS: SEVELAMER CARBONATE 800 MG TAB PO SCH ×2 (12:04→17:30)
[2018-01-18] MEDS: DULoxetine HCl DR 30 MG CAP PO SCH (12:04)
[2018-01-18] MEDS ORDERED: GLUCAGON 1 MG/ML VIAL OTHER PRN (13:45)
[2018-01-18] MEDS: HYDROmorphone HCL PF 2 MG/ML VIAL IV PUSH PRN ×2 (13:56→17:57)
[2018-01-18] MEDS: DEXTROSE 50% IN WATER 50 ML VIAL(D50) IV PUSH PRN ×2 (14:39→21:35)
[2018-01-18] MEDS ORDERED: DEXTROSE 5% IN WATE 1000ML INJ 1,000 ML IV SCH (15:30)
[2018-01-18] MEDS: DEXTROSE 10% INJ 1,000 ML IV SCH ×2 (16:29→16:44)
[2018-01-18] MEDS: HEPARIN SODIUM - SQ 10,000 UNITS/ML VIAL SQ SCH (17:31)
--- NOTE | 2018-01-18 17:38 | MB ---
cc: Nghia MathurM DATE: 01/18/2018 REASON FOR CONSULTATION: Right ischemia hallux. HISTORY OF PRESENT ILLNESS: This is a 57-year-old male who is known to the podiatry service. He has just recently undergone left below knee amputation. We have been consulted to help manage the right lower extremity. The patient appears to be heavily pain medicated today seen bedside; however, vitals appear to be stable. Upon reviewing the case with vascular, there will be an attempt at increase in circulation of the right lower extremity some time in the early following week. PAST MEDICAL HISTORY: Positive for diabetes, PAD, hypertension, COPD, tobacco abuse, failed revascularization of the left, status post left below the knee amputation, right hallux gangrene, poor hyperglycemic control. ALLERGIES: NONE LISTED. INPATIENT MEDICATIONS: Please see complete medication list in chart. He is receiving p.r.n. pain medications, hydromorphone, Glucagon, Norvasc, aspirin, vitamin D3, cymbalta, Levemir, heparin and mannitol. PHYSICAL EXAMINATION: GENERAL: This is an alert and oriented male; however, appears to be sedated. VITAL SIGNS: Temperature is 98.3, pulse rate 96, respiratory rate 16, blood pressure 158/78. He is sating 97% on 2 liters nasal cannula. EXTREMITIES: Bilateral lower extremities were examined. Left lower extremity: There is a bandage intact status post left below the knee amputation. Right lower extremity were examined. There is ischemic dry gangrenous findings to the distal aspect of the right hallux that extends at the level of the IPJ. There is no obvious odor or fluctuance in the tissue. The lesser digits appear to have a darkish discoloration; however, this does not appear to be gangrenous. It appears to be more skin pigmentation. The foot is cool. Pulses are nonpalpable. There is no crepitus or instability upon range of motion of the hindfoot or ankle. LABORATORY DATA: White blood cell 12.6, hemoglobin and hematocrit 10 and 33, platelet count is 308. Chem-7: Sodium was 141, potassium 4.4, chloride 100, CO2 of 26.7, BUN 74, creatinine 11.47, random glucose 72. Imaging Findings: Foot x-ray right dating back to 12/26/2017, findings consistent with osteomyelitis of the tuft of the first toe. ASSESSMENT: Right hallux osteomyelitis, ischemic ulcer which appears to be stable. The patient after revascularization may be a candidate for hallux amputation with possible first ray amputation; however, without circulation, there is a poor prognosis for salvage of limb. We will continue to follow along until the patient's blood flow has improved. I may recommend adding an IV antibiotic after wound culture returns of the right hallux, which has been ordered. We will continue to follow along with this case. Thank you for the consultation. YAKELIN Lujan/CLAUDIA , 05:17 PM , 05:37 PM
[2018-01-18] MEDS: ATORVASTATIN 40 MG TAB PO SCH (21:44)
[2018-01-19] VITALS (12 sets, daily range): BP systolic 121–143; BP diastolic 60–79; PULSE 75–98; RESP 16; TEMP 98–99.5; O2SAT 94–99
[2018-01-19] MEDS: HEPARIN SODIUM - SQ 10,000 UNITS/ML VIAL SQ SCH ×3 (01:51→17:06)
[2018-01-19] MEDS: HYDROmorphone HCL 2 MG TAB PO PRN ×4 (01:51→21:02)
[2018-01-19] MEDS: MORPHINE SULFATE 2 MG/ML SYRINGE IV PRN ×3 (02:50→23:56)
[2018-01-19] MEDS: METOPROLOL TARTRATE 25 MG TAB PO SCH ×3 (06:02→21:36)
[2018-01-19] MEDS: INSULIN ASPART 1,000 UNITS/10 ML VIAL SQ SCH ×3 (08:04→17:05)
[2018-01-19] MEDS: DOCUSATE SODIUM 50 MG/SENNA 8.6 MG TAB PO SCH ×2 (08:06→21:36)
[2018-01-19] MEDS: DULoxetine HCl DR 30 MG CAP PO SCH (08:06)
[2018-01-19] MEDS: BUDESONIDE-FORMOTEROL 160/4.5 MCG INHALER INH SCH ×2 (08:06→23:53)
[2018-01-19] MEDS: ASPIRIN 81 MG CHEW TAB CHEW SCH (08:07)
[2018-01-19] MEDS: CHOLECALCIFEROL (VIT D3) 1000 UNIT TAB PO SCH (08:07)
[2018-01-19] MEDS: amLODIPine BESYLATE 5 MG TAB PO SCH (08:08)
[2018-01-19] MEDS: SEVELAMER CARBONATE 800 MG TAB PO SCH ×3 (08:08→17:06)
[2018-01-19 09:45] LABS: AUTOMATED NEUTROPHIL # 7.2 TH/MM3 (1.8-7.7); BASOPHIL # 0.1 TH/MM3 (0-0.2); BASOPHIL % 1.1 % (0.0-2.0); EOSINOPHIL # 0.1 TH/MM3 (0-0.4); HEMATOCRIT 31.6 % (39.0-51.0); HEMOGLOBIN 9.5 GM/DL (13.0-17.0); LYMPH % 10.4 % (9.0-44.0); LYMPHOCYTE # 0.9 TH/MM3 (1.0-4.8); MEAN CELL VOLUME 75.8 FL (80.0-100.0); MEAN CORPUSCULAR HEMOGLOBIN 22.8 PG (27.0-34.0); MEAN CORPUSCULAR HGB CONC 30.1 % (32.0-36.0); MEAN PLATELET VOLUME 9.3 FL (7.0-11.0); MONO % 7.6 % (0.0-8.0); MONOCYTE # 0.7 TH/MM3 (0-0.9); NEUT % 79.9 % (16.0-70.0); PLATELET COUNT 267 TH/MM3 (150-450); RED BLOOD COUNT 4.17 MIL/MM3 (4.50-5.90); RED CELL DISTRIBUTION WIDTH 22.2 % (11.6-17.2)
[2018-01-19 09:50] LABS: ALBUMIN 2.2 GM/DL (3.4-5.0); ALKALINE PHOSPHATASE 411 U/L (45-117); ALT (GPT) 42 U/L (12-78); AST (GOT) 27 U/L (15-37); BICARBONATE 25.7 MEQ/L (21.0-32.0); BLOOD UREA NITROGEN 52 MG/DL (7-18); CALCIUM 8.5 MG/DL (8.5-10.1); CHLORIDE 93 MEQ/L (98-107); CREATININE 9.18 MG/DL (0.60-1.30); GLOMERULAR FILTRATION RATE 7 ML/MIN (>89); GLUCOSE,RANDOM 406 MG/DL (74-106); SODIUM (NA) 134 MEQ/L (136-145); TOTAL BILIRUBIN ADULT 0.8 MG/DL (0.2-1.0); TOTAL PROTEIN 7.4 GM/DL (6.4-8.2)
--- NOTE | 2018-01-19 10:17 | PD.VS.PN ---
Subjective POD #: 2 Procedure(s): L BKA Subjective/Hospital Course Hypoglycemic yesterday Pain better controlled today Able to straighten leg Objective Vitals/I&O Date Time Temp Pulse Resp B/P (MAP) Pulse Ox O2 Delivery O2 Flow Rate FiO2 01/19/18 08:43 94 21 01/19/18 08:00 99.5 76 16 141/74 (96) 94 01/19/18 08:00 79 01/19/18 04:00 78 01/19/18 03:30 98.8 79 16 138/72 (94) 99 01/18/18 23:15 99.7 81 16 144/68 (93) 97 01/18/18 23:00 89 01/18/18 22:20 98 Nasal Cannula 3.00 01/18/18 19:30 98.5 100 16 160/78 (105) 98 01/18/18 19:00 80 01/18/18 18:30 16 01/18/18 18:30 16 01/18/18 18:30 16 01/18/18 16:45 97 Nasal Cannula 2.00 01/18/18 16:00 98.3 96 16 158/78 (104) 93 01/18/18 16:00 94 01/18/18 12:30 16 01/18/18 11:00 82 01/18/18 11:00 98.2 82 16 152/66 (94) 95 01/19/18 01/19/18 01/19/18 07:00 15:00 23:00 Intake Total 300 ml Balance 300 ml Exam: Resting comfortably ESME wrap removed - stump warm and stable sanguinous drainage on dressing Laboratory Laboratory Tests Test 01/18/18 14:30 01/19/18 09:00 Random Glucose 85 406 White Blood Count 9.0 Red Blood Count 4.17 Hemoglobin 9.5 Hematocrit 31.6 Mean Corpuscular Volume 75.8 Mean Corpuscular Hemoglobin 22.8 Mean Corpuscular Hemoglobin Concent 30.1 Red Cell Distribution Width 22.2 Platelet Count 267 Mean Platelet Volume 9.3 Neutrophils (%) (Auto) 79.9 Lymphocytes (%) (Auto) 10.4 Monocytes (%) (Auto) 7.6 Eosinophils (%) (Auto) 1.0 Basophils (%) (Auto) 1.1 Neutrophils # (Auto) 7.2 Lymphocytes # (Auto) 0.9 Monocytes # (Auto) 0.7 Eosinophils # (Auto) 0.1 Basophils # (Auto) 0.1 CBC Comment DIFF FINAL Differential Comment Blood Urea Nitrogen 52 Creatinine 9.18 Total Protein 7.4 Albumin 2.2 Calcium Level 8.5 Alkaline Phosphatase 411 Aspartate Amino Transf (AST/SGOT) 27 Alanine Aminotransferase (ALT/SGPT) 42 Total Bilirubin 0.8 Sodium Level 134 Potassium Level 4.5 Chloride Level 93 Carbon Dioxide Level 25.7 Anion Gap 15 Estimat Glomerular Filtration Rate 7 Assessment and Plan Plan POD#2 s/p L BKA 1. Transition to reg floor with tele, ideally on medical service 2. Continue OOB TC and PT 3. Dressing on until Sunday 4. Plan for RIGHT leg and RIGHT arm angiogram on Sunday Discharge Planning likely to rehab Sunday Brother [phone] Randy Ortiz MD Jan 19, 2018 10:17
--- NOTE | 2018-01-19 11:09 | HHI.CCPN ---
Subjective Remarks/Hospital Course 57 yo AAM with PMH of ESRD on HD M/W/F, DM, PAD, HTN, COPD, tobacco abuse who failed revascularization Left LE and underwent left BKA under GETA by Dr. Ortiz , EBL 150cc. Tolerated procedure well, was extubated and transferred to PACU. He is on an insulin drip for uncontrolled DM postoperatively. Critical care was consulted for medical management, insulin drip. 01/18: Blood sugar control adequate on insulin GTT, now hypoglycemic. Transition to pre-meal NovoLog and Levemir 10 units every 12 after starting ADA, renal diet. Nephrology for dialysis 01/19: hypoglycemia resolved. blood sugars again in 200s, but would be much more conservative with ramping up insulin given recent hypoglyemia. patient without complaints and wants to leave ICU. stable from my standpoint. Objective Vital Signs Date Time Temp Pulse Resp B/P (MAP) Pulse Ox O2 Delivery O2 Flow Rate FiO2 01/19/18 08:43 94 21 01/19/18 08:00 99.5 76 16 141/74 (96) 01/18/18 22:20 Nasal Cannula 3.00 Intake and Output 01/19/18 01/19/18 01/20/18 08:00 16:00 00:00 Intake Total 300 ml Balance 300 ml Result Diagram: 01/19/18 0900 01/19/18 0900 Objective Remarks HEENT/Neuro: No icterus, tongue moist, JAZLYN, Awake and alert,, nonfocal grossly , moving both upper extremity Neck: No JVD Chest/pulmonary: CTA bilaterally Cardiovascular: S1-S2 regular no gallop or murmur GI/abdomen: Soft, nontender, bowel sounds present Extremities: Dressing over left BKA stump site clean dry and intact. Black is discoloration/changes over fingertips and upper extremities appeared chronic. Left upper extremity AV graft noted. Vas-Cath in place A/P Assessment and Plan Left BKA POD 2 ESRD on HD Uncontrolled diabetes: episodes of hypoglycemia now resolved. Hypertension Depression Peripheral neuropathy Peripheral arterial disease Diabetes mellitus COPD Plan: -continue Levemir 10 units every 12. ADA renal diet. very cautious uptitrating of insulin regimen. - home antihypertensives. Labetalol when necessary, IV Vasotec when necessary for systolic blood pressure greater than 160. - Bronchodilators when necessary, supplemental O2 as needed - Nephrology to follow for hemodialysis - Follow-up postop CBC/CMP in am - Critical care will sign off. - transfer to med/surg floor with tele - Heparin for DVT prophylaxis when okay with vascular surgery. - Dr. Ortiz following postoperatively following left BKA. - consult hospitalist service to assume care. OVERALL IMPRESSION: clinically improving. needs close monitoring of glycemic control due to brittle diabetes. needs close hospitalist monitoring: would be better served on hospitalist service as primary. confirmed with Dr. Ortiz. Chan Munoz MD Jan 19, 2018 11:08
[2018-01-19] MEDS: INSULIN ASPART SUPPLEMENTAL SCALE SQ SCH ×3 (11:53→21:30)
[2018-01-19] MEDS: INSULIN DETEMIR 100 UNITS/ML VIAL SQ SCH (12:44)
--- NOTE | 2018-01-19 14:30 | HHI.NPPN ---
Subjective History of Present Illness 57 year old male with ESRD DM HTN s/p L BKA amputation Objective Data Data Vital Signs Date Time Temp Pulse Resp B/P (MAP) Pulse Ox O2 Delivery O2 Flow Rate FiO2 01/19/18 11:00 75 01/19/18 11:00 98.8 75 16 131/60 (83) 94 01/19/18 09:00 16 01/19/18 08:43 94 21 01/19/18 08:00 99.5 76 16 141/74 (96) 94 01/19/18 08:00 79 01/19/18 04:00 78 01/19/18 03:30 98.8 79 16 138/72 (94) 99 01/18/18 23:15 99.7 81 16 144/68 (93) 97 01/18/18 23:00 89 01/18/18 22:20 98 Nasal Cannula 3.00 01/18/18 19:30 98.5 100 16 160/78 (105) 98 01/18/18 19:00 80 01/18/18 18:30 16 01/18/18 18:30 16 01/18/18 16:45 97 Nasal Cannula 2.00 01/18/18 16:00 98.3 96 16 158/78 (104) 93 01/18/18 16:00 94 -: 01/19/18 0900 01/19/18 0900 Physical Exam General Appearance: Well Developed, Well Nourished Neck Neck Exam: Neck Supple Pulmonary Resp Exam: Clear Bilaterally, Breath Sounds Equal Cardiology CV Exam: Regular, Normal Sinus Rhythm Gastrointestinal/Abdomen GI Exam: Soft, Non-Tender, Bowel Sounds Present Extremeties Extremeties Remarks L BKA Assessment/Plan Problem List: (1) ESRD (end stage renal disease) ICD Codes: N18.6 - End-stage renal disease Status: Resolved Plan: HD MWF, due today, orders entered Patent AVF for dialysis Monitor labs intermittently Avoid IVF administration On sevelamer for metabolic bone disorder. Needs better phosphorus control, advised medication compliance s/p Amputation L stable (2) PAD (peripheral artery disease) ICD Codes: I73.9 - Peripheral vascular disease, unspecified Status: Chronic Plan: S/p L BKA Angio of RUE and RLE planned for sunday Management per vascular. Wound care Pain control WBC are elevated, not on antibiotics. It is unclear if we can remove Ta catheter. Consider ID consultation to assist. (3) HTN (hypertension) ICD Codes: I10 - Essential (primary) hypertension Status: Chronic Plan: Resume home medication, titrate to effect Permanent Comment: Last Edited By: Jasmyne Bee on Jul 11, 2017 15:31 (4) DM (diabetes mellitus) ICD Codes: E11.9 - Type 2 diabetes mellitus without complications Status: Chronic Plan: Maintain glucose 140-180 mg/dL Needs to eat regularly He is a brittle diabetic (5) Anemia ICD Codes: D64.9 - Anemia, unspecified Plan: Epogen per protocol. Edd Tomas MD Jan 19, 2018 14:30
[2018-01-19] MEDS: DEXTROSE 50% IN WATER 50 ML VIAL(D50) IV PUSH PRN (21:10)
[2018-01-19] MEDS: SODIUM CHLORIDE 0.9% FLUSH 10 ML FLUSH IV FLUSH PRN (21:17)
[2018-01-19] MEDS: ATORVASTATIN 40 MG TAB PO SCH (21:36)
[2018-01-20] VITALS (26 sets, daily range): BP systolic 132–146; BP diastolic 67–71; PULSE 63–88; RESP 16–18; TEMP 97.7–98; O2SAT 96–98
[2018-01-20] MEDS: HEPARIN SODIUM - SQ 10,000 UNITS/ML VIAL SQ SCH ×3 (01:32→16:38)
[2018-01-20] MEDS: MORPHINE SULFATE 2 MG/ML SYRINGE IV PRN ×3 (02:29→21:00)
[2018-01-20] MEDS: METOPROLOL TARTRATE 25 MG TAB PO SCH ×3 (06:05→21:41)
[2018-01-20] MEDS: HYDROmorphone HCL 2 MG TAB PO PRN ×3 (06:06→17:52)
[2018-01-20] MEDS: BUDESONIDE-FORMOTEROL 160/4.5 MCG INHALER INH SCH ×2 (09:25→21:41)
[2018-01-20] MEDS: DULoxetine HCl DR 30 MG CAP PO SCH (09:26)
[2018-01-20] MEDS: DOCUSATE SODIUM 50 MG/SENNA 8.6 MG TAB PO SCH ×2 (09:26→21:41)
[2018-01-20] MEDS: CHOLECALCIFEROL (VIT D3) 1000 UNIT TAB PO SCH (09:26)
[2018-01-20] MEDS: SEVELAMER CARBONATE 800 MG TAB PO SCH ×3 (09:26→16:38)
[2018-01-20] MEDS: amLODIPine BESYLATE 5 MG TAB PO SCH (09:27)
[2018-01-20] MEDS: ASPIRIN 81 MG CHEW TAB CHEW SCH (09:27)
[2018-01-20] MEDS: INSULIN DETEMIR 100 UNITS/ML VIAL SQ SCH (09:29)
[2018-01-20] MEDS: INSULIN ASPART 1,000 UNITS/10 ML VIAL SQ SCH ×3 (09:30→16:38)
[2018-01-20] MEDS: INSULIN ASPART SUPPLEMENTAL SCALE SQ SCH ×4 (09:30→21:00)
--- NOTE | 2018-01-20 11:38 | HHI.PR ---
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 Ortiz , EBL 150cc. Tolerated procedure well, was extubated and transferred to PACU. He is on an insulin drip for uncontrolled DM postoperatively. Critical care was consulted for medical management, insulin drip. 01/18: Blood sugar control adequate on insulin GTT, now hypoglycemic. Transition to pre-meal NovoLog and Levemir 10 units every 12 after starting ADA, renal diet. Nephrology for dialysis 01/19: hypoglycemia resolved. blood sugars again in 200s, but would be much more conservative with ramping up insulin given recent hypoglyemia. patient without complaints and wants to leave ICU. stable from my standpoint. Hospitalist Notes: 01/20: Recommended to continue dressing on until Sunday01/21/18, Plan for right leg and right arm angiography tomorrow. likely to rehab on Sunday. seen in his bedroom no new issues, discussed with nurse, NO nausea, vomit or diarrhea, brittle blood sugar levels switch to Medium sliding scale to avoid complications but will try to keep blood sugar below 180 mg/Dl. Objective Vital Signs Date Time Temp Pulse Resp B/P (MAP) Pulse Ox O2 Delivery O2 Flow Rate FiO2 01/20/18 10:32 70 01/20/18 10:21 18 01/20/18 09:00 70 01/20/18 08:45 73 01/20/18 08:45 97.9 68 18 138/67 (90) 97 01/20/18 07:17 16 01/20/18 06:00 74 01/20/18 05:00 70 01/20/18 04:00 72 01/20/18 03:21 78 16 145/71 (95) 96 01/20/18 03:00 73 01/20/18 02:00 74 01/20/18 01:00 78 01/20/18 00:13 79 16 132/71 (91) 97 01/20/18 00:00 78 01/19/18 23:00 75 01/19/18 22:00 94 01/19/18 21:00 94 01/19/18 20:00 98.2 93 16 143/79 (100) 94 01/19/18 20:00 96 01/19/18 19:00 98 01/19/18 17:45 98.0 76 16 121/63 (82) 98 01/19/18 16:00 99.3 78 16 132/70 (90) 94 01/19/18 16:00 78 01/19/18 12:10 16 I/O 01/19/18 01/19/18 01/19/18 01/20/18 01/20/18 01/20/18 07:00 15:00 23:00 07:00 15:00 23:00 Intake Total 300 ml 130 ml 500 ml 500 ml Output Total 0 ml 0 ml Balance 300 ml 130 ml 500 ml 500 ml Intake Oral 300 ml 500 ml 500 ml IV Total 130 ml Output Urine Total 0 ml 0 ml # Bowel Movements 0 0 Result Diagram: 01/19/18 0900 01/19/18 0900 Imaging No new imaging studies Procedures Left BKA Other Results Laboratory Tests Test 01/18/18 04:30 01/19/18 09:00 Phosphorus Level 7.5 MG/DL White Blood Count 9.0 TH/MM3 Red Blood Count 4.17 MIL/MM3 Hemoglobin 9.5 GM/DL Hematocrit 31.6 % Mean Corpuscular Volume 75.8 FL Mean Corpuscular Hemoglobin 22.8 PG Mean Corpuscular Hemoglobin Concent 30.1 % Red Cell Distribution Width 22.2 % Platelet Count 267 TH/MM3 Mean Platelet Volume 9.3 FL Neutrophils (%) (Auto) 79.9 % Lymphocytes (%) (Auto) 10.4 % Monocytes (%) (Auto) 7.6 % Eosinophils (%) (Auto) 1.0 % Basophils (%) (Auto) 1.1 % Neutrophils # (Auto) 7.2 TH/MM3 Lymphocytes # (Auto) 0.9 TH/MM3 Monocytes # (Auto) 0.7 TH/MM3 Eosinophils # (Auto) 0.1 TH/MM3 Basophils # (Auto) 0.1 TH/MM3 CBC Comment DIFF FINAL Differential Comment Blood Urea Nitrogen 52 MG/DL Creatinine 9.18 MG/DL Random Glucose 406 MG/DL Total Protein 7.4 GM/DL Albumin 2.2 GM/DL Calcium Level 8.5 MG/DL Alkaline Phosphatase 411 U/L Aspartate Amino Transf (AST/SGOT) 27 U/L Alanine Aminotransferase (ALT/SGPT) 42 U/L Total Bilirubin 0.8 MG/DL Sodium Level 134 MEQ/L Potassium Level 4.5 MEQ/L Chloride Level 93 MEQ/L Carbon Dioxide Level 25.7 MEQ/L Anion Gap 15 MEQ/L Estimat Glomerular Filtration Rate 7 ML/MIN Objective Remarks General:No acute distress HEENT: moist mucous membranes Neck: No JVD Chest/pulmonary: CTA bilaterally Cardiovascular: S1-S2 regular no gallop or murmur GI/abdomen: Soft, nontender, bowel sounds present Extremities: Dressing over left BKA stump site clean dry and intact. Left upper extremity AV graft noted. Vas-Cath in place Medications and IVs Current Medications Medications (Trade) Dose Ordered Sig/April Route Start Time Stop Time Status Last Admin Lactated Ringer's 1,000 ml @ 30 mls/hr Q24H PRN IV 01/17/18 14:30 01/20/18 14:29 Sodium Chloride 500 ml @ 30 mls/hr [id number] PRN IV 01/17/18 14:30 01/20/18 14:29 01/17/18 14:15 (Betadine 5% Antisepsis Kit) 1 applic SPORTS OFFICIAL PRN EACH NARE 01/17/18 14:30 01/20/18 14:29 (Chlorhexidine 2% Cloth) 3 pack SPORTS OFFICIAL PRN TOPICAL 01/17/18 14:30 01/20/18 14:29 01/17/18 14:15 (Roxicodone) 5 mg Q4H PRN PO 01/17/18 17:45 01/20/18 09:26 (Dilaudid) 2 mg Q4H PRN PO 01/17/18 17:45 01/20/18 06:06 (Morphine Inj) 2 mg Q1H PRN IV 01/17/18 18:45 01/20/18 02:29 (Heparin Inj) 5,000 units Q8H SQ 01/18/18 17:00 01/20/18 09:27 (Odette-Colace) 1 tab BID PO 01/17/18 21:00 01/20/18 09:26 (Senokot) 17.2 mg Q12H PRN PO 01/17/18 17:45 (Dulcolax Supp) 10 mg DAILY PRN RECTAL 01/17/18 17:45 (Lactulose Liq) 30 ml DAILY PRN PO 01/17/18 17:45 (Norvasc) 5 mg DAILY PO 01/18/18 09:00 01/20/18 09:27 (Aspirin Chew) 81 mg DAILY CHEW 01/18/18 09:00 01/20/18 09:27 (Lipitor) 40 mg HS PO 01/17/18 21:00 01/19/18 21:36 (Lioresal) 10 mg DAILY PRN PO 01/17/18 17:45 (Symbicort 160-4.5 Mcg Inh) 1 puff Q12HR INH 01/17/18 21:00 01/20/18 09:25 (Vitamin D3) 1,000 units DAILY PO 01/18/18 09:00 01/20/18 09:26 (Cymbalta Dr) 30 mg DAILY PO 01/18/18 09:00 01/20/18 09:26 (Lopressor) 25 mg Q8HR PO 01/17/18 22:00 01/20/18 06:05 (Renvela) 2,400 mg TIDAC PO 01/18/18 08:00 01/20/18 09:26 (D50w (Vial) Inj) 50 ml UNSCH PRN IV PUSH 01/17/18 17:45 01/19/18 21:10 Patient Own Medication PT OWN MED: DIALYVITE W/ [id number]... DAILY PO 01/18/18 09:00 Future Hold (NovoLOG INJ) 3 units TIDAC SQ 01/18/18 08:00 01/20/18 09:30 Sodium Chloride 1,000 ml @ 0 mls/hr Q0M PRN OTHER 01/18/18 08:13 (Heparin Inj) 8,000 units UNSCH PRN IV FLUSH 01/18/18 08:15 Sodium Chloride 1,000 ml @ 200 mls/hr Q5H PRN IV 01/18/18 08:13 Sodium Chloride 1,000 ml @ 0 mls/hr Q0M PRN OTHER 01/18/18 08:13 (Mannitol Inj) 12.5 gm UNSCH PRN IV 01/18/18 08:15 Albumin Human 100 ml @ 60 mls/hr UNSCH PRN IV 01/18/18 08:15 (NS Flush) 5 ml UNSCH PRN IV FLUSH 01/18/18 08:15 01/19/18 21:17 (Heparin Inj) UNSCH PRN .XX 01/18/18 08:15 (Gentamicin Inj) 20 mg UNSCH PRN OTHER 01/18/18 08:15 (Zofran Inj) 4 mg UNSCH PRN IV PUSH 01/18/18 08:15 01/18/18 19:07 (Tylenol) 650 mg UNSCH PRN PO 01/18/18 08:15 (Benadryl) 25 mg UNSCH PRN PO 01/18/18 08:15 (Nitrostat Sl) 0.4 mg UNSCH PRN SL 01/18/18 08:15 (Catapres) 0.1 mg UNSCH PRN PO 01/18/18 08:15 (Epogen Inj) 4,000 units UNSCH PRN IV PUSH 01/18/18 08:15 (Gelfoam 12 Mm/7 Mm Top) 1 foam UNSCH PRN TOP 01/18/18 08:15 (Dilaudid Pf Inj) 1 mg Q4H PRN IV PUSH 01/18/18 13:45 01/18/18 17:57 (Glucagon Inj) 1 mg UNSCH PRN OTHER 01/18/18 13:45 (NovoLOG SUPPLEMENTAL SCALE) 1 ACHS SLIDING SCALE SQ 01/19/18 12:00 01/20/18 09:30 (Levemir Inj) 5 units DAILY SQ 01/19/18 13:00 01/20/18 09:29 A/P Assessment and Plan 1. Left BKA POD #3, 01/20: Recommended to continue dressing on until Sunday, Plan for right leg and right arm angiography tomorrow. likely to rehab on Sunday. 2. ESRD on Hemodialysis Nephrology following. 3. DM II recommended yesterday developed Hypoglycemia on low dosages of Levemir , sliding scale to Medium dose and try to keep blood sugar below 180 mg/dl. 4. Hypertension controlled to continue antihypertensives 5. Depression stable 6. Peripheral Neuropathy by history. 7. Peripheral Artery disease 8. COPD continue supplemental oxygen, Bronchodilator, Mucolytic and incentive spirometry DVT prophylaxis with Heparin Discharge Planning Once cleared by Vascular surgery. Jg Sepulveda MD Jan 20, 2018 11:38
[2018-01-20] MEDS: MEDIUM DOSE INSULIN NOVOLOG SUPPLEMENTAL SCALE SQ SCH ×2 (16:42→21:00)
[2018-01-20] MEDS ORDERED: PLEASE DISCONTINUE PREVIOUS SUPPLEMENTAL SCALE INSULIN ORDERS ONE (16:45)
[2018-01-20] MEDS ORDERED: GLUCAGON 1 MG/ML VIAL OTHER PRN (16:45)
--- NOTE | 2018-01-20 16:57 | HHI.NPPN ---
Subjective History of Present Illness 57 year old male with ESRD DM HTN s/p L BKA amputation Objective Data Data Vital Signs Date Time Temp Pulse Resp B/P (MAP) Pulse Ox O2 Delivery O2 Flow Rate FiO2 01/20/18 16:14 68 01/20/18 15:30 70 01/20/18 15:30 98.0 88 16 144/71 (95) 98 01/20/18 14:16 70 01/20/18 13:24 16 01/20/18 13:10 72 01/20/18 12:04 73 01/20/18 11:00 97.7 71 16 146/67 (93) 98 01/20/18 11:00 70 01/20/18 10:32 70 01/20/18 10:21 18 01/20/18 09:00 70 01/20/18 08:45 73 01/20/18 08:45 97.9 68 18 138/67 (90) 97 01/20/18 06:00 74 01/20/18 05:00 70 01/20/18 04:00 72 01/20/18 03:21 78 16 145/71 (95) 96 01/20/18 03:00 73 01/20/18 02:00 74 01/20/18 01:00 78 01/20/18 00:13 79 16 132/71 (91) 97 01/20/18 00:00 78 01/19/18 23:00 75 01/19/18 22:00 94 01/19/18 21:00 94 01/19/18 20:00 98.2 93 16 143/79 (100) 94 01/19/18 20:00 96 01/19/18 19:00 98 01/19/18 17:45 98.0 76 16 121/63 (82) 98 -: 01/19/18 0900 01/19/18 0900 Physical Exam General Appearance: Well Developed, Well Nourished Neck Neck Exam: Neck Supple Pulmonary Resp Exam: Clear Bilaterally, Breath Sounds Equal Cardiology CV Exam: Regular, Normal Sinus Rhythm Gastrointestinal/Abdomen GI Exam: Soft, Non-Tender, Bowel Sounds Present Extremeties Extremeties Remarks L BKA Assessment/Plan Problem List: (1) ESRD (end stage renal disease) ICD Codes: N18.6 - End-stage renal disease Status: Resolved Plan: HD MWF, due today, orders entered Patent AVF for dialysis Monitor labs intermittently Avoid IVF administration On sevelamer for metabolic bone disorder. Needs better phosphorus control, advised medication compliance s/p Amputation L stable Dr. Schultz to follow (2) PAD (peripheral artery disease) ICD Codes: I73.9 - Peripheral vascular disease, unspecified Status: Chronic Plan: S/p L BKA Angio of RUE and RLE planned for sunday Management per vascular. Wound care Pain control WBC are elevated, not on antibiotics. It is unclear if we can remove Ta catheter. Consider ID consultation to assist. (3) HTN (hypertension) ICD Codes: I10 - Essential (primary) hypertension Status: Chronic Plan: Resume home medication, titrate to effect Permanent Comment: Last Edited By: Jasmyne Bee on Jul 11, 2017 15:31 (4) DM (diabetes mellitus) ICD Codes: E11.9 - Type 2 diabetes mellitus without complications Status: Chronic Plan: Maintain glucose 140-180 mg/dL Needs to eat regularly He is a brittle diabetic (5) Anemia ICD Codes: D64.9 - Anemia, unspecified Plan: Epogen per protocol. Edd Tomas MD Jan 20, 2018 16:57
[2018-01-20] MEDS: DEXTROSE 50% IN WATER 50 ML VIAL(D50) IV PUSH PRN (20:48)
[2018-01-20] MEDS: ATORVASTATIN 40 MG TAB PO SCH (21:41)
[2018-01-21] VITALS (26 sets, daily range): BP systolic 109–140; BP diastolic 56–69; PULSE 60–98; RESP 16–19; TEMP 97.9–98.8; O2SAT 94–97
[2018-01-21] MEDS: HYDROmorphone HCL 2 MG TAB PO PRN ×4 (00:28→14:15)
[2018-01-21] MEDS: HEPARIN SODIUM - SQ 10,000 UNITS/ML VIAL SQ SCH ×3 (00:29→17:37)
[2018-01-21] MEDS: METOPROLOL TARTRATE 25 MG TAB PO SCH ×3 (05:16→21:03)
[2018-01-21] MEDS: MEDIUM DOSE INSULIN NOVOLOG SUPPLEMENTAL SCALE SQ SCH ×4 (08:00→21:00)
[2018-01-21] MEDS: INSULIN ASPART 1,000 UNITS/10 ML VIAL SQ SCH ×3 (08:00→17:00)
[2018-01-21] MEDS: SEVELAMER CARBONATE 800 MG TAB PO SCH ×3 (08:00→17:00)
[2018-01-21] MEDS ORDERED: DEXTROSE 10% INJ 500 ML IV SCH (09:30)
--- NOTE | 2018-01-21 09:36 | HHI.NPPN ---
Subjective General Problems: Anemia Renal Failure: Chronic, End Stage Renal Disease Interval History He is NPO currently, due for angiogram later this afternoon. Seen during dialysis today. (Jasmyne Bee) Review of Systems General Constitutional: Fatigue (Jasmyne Bee) Objective Data Data Vital Signs Date Time Temp Pulse Resp B/P (MAP) Pulse Ox O2 Delivery O2 Flow Rate FiO2 01/21/18 07:30 98.0 62 18 109/56 (73) 01/21/18 06:00 62 01/21/18 06:00 60 01/21/18 04:00 62 01/21/18 03:33 63 16 126/62 (83) 94 01/21/18 03:00 62 01/21/18 02:00 62 01/21/18 01:00 64 01/21/18 00:10 69 16 131/58 (82) 95 01/21/18 00:00 66 01/20/18 23:00 63 01/20/18 22:00 68 01/20/18 21:00 72 01/20/18 20:00 72 01/20/18 19:20 98.0 71 16 138/67 (90) 96 01/20/18 19:00 71 01/20/18 18:16 73 01/20/18 17:14 68 01/20/18 16:14 68 01/20/18 15:30 70 01/20/18 15:30 98.0 88 16 144/71 (95) 98 01/20/18 14:16 70 01/20/18 13:24 16 01/20/18 13:10 72 01/20/18 12:04 73 01/20/18 11:00 97.7 71 16 146/67 (93) 98 01/20/18 11:00 70 01/20/18 10:32 70 01/20/18 10:21 18 (Jasmyne Bee) -: 01/19/18 0900 01/19/18 0900 Physical Exam General Appearance: Well Developed, Well Nourished, Comfortable (Jasmyne Bee) Neck Neck Exam: Neck Supple (Jasmyne Bee) Pulmonary Resp Exam: Clear Bilaterally, Breath Sounds Equal (Jasmyne Bee) Cardiology CV Exam: Regular, Normal Sinus Rhythm (Jasmyne Bee) Gastrointestinal/Abdomen GI Exam: Soft, Non-Tender, Bowel Sounds Present (Jasmyne Bee) Musculoskeletal MS Exam: Normal Tone, Unable to Ambulate MS Remarks s/p L BKA, brenda intact. (Jasmyne Bee) Integumentary Skin Exam: Warm, Dry, Intact (Jasmyne Bee) Extremeties Extremities Exam: Pedal Pulses Palpable Extremeties Remarks on right (Jasmyne Bee) Neurologic Neuro Exam: Alert, Awake, Oriented, Speech Clear, Moving All Extremities (Jasmyne Bee) Psychiatric Psych Exam: Appropriate Responses (Jasmyne Bee) Assessment/Plan Discussed Condition With: Patient Assessment Summary: Anemia of CKD, Hypertension, End Stage Renal Disease Problem List: (1) ESRD (end stage renal disease) ICD Codes: N18.6 - End-stage renal disease Status: Resolved Plan: HD MWF Seen during HD today on a 350 BFR, 2K, 3L UF Patent AVF for dialysis, protect Left upper ext Monitor labs intermittently Avoid IVF administration On sevelamer for metabolic bone disorder. Phosphorus level added on to today's labs. (2) PAD (peripheral artery disease) ICD Codes: I73.9 - Peripheral vascular disease, unspecified Status: Chronic Plan: S/p L BKA, healing well. Angio of RUE and RLE planned for today at 3pm Management per vascular. Podiatry is also following. Continue Wound care , cultures negative to date Pain control It is unclear if we can remove Ta catheter. Consider ID consultation to assist. (3) HTN (hypertension) ICD Codes: I10 - Essential (primary) hypertension Status: Chronic Plan: Continue current medications, titrate to effect Permanent Comment: Last Edited By: Jasmyne Bee on Jul 11, 2017 15:31 (4) DM (diabetes mellitus) ICD Codes: E11.9 - Type 2 diabetes mellitus without complications Status: Chronic Plan: NPO, start D10 @ 15ml/hr Maintain glucose 140-180 mg/dL Needs to eat regularly, he is a very brittle diabetic (5) Anemia ICD Codes: D64.9 - Anemia, unspecified Plan: Epogen per protocol. (Jasmyne Bee) Plan patient was seen and examined. Seen during dialysis, hypoglycemic. D10 started, advised RN to push an amp of D50 as he is lethargic. Poor prognosis. (Maurice Schultz MD) Jasmyne Bee Jan 21, 2018 09:35 Maurice Schultz MD Jan 21, 2018 09:58
--- NOTE | 2018-01-21 09:58 | PD.VS.PN ---
Subjective Subjective/Hospital Course Pt alert in NAD Awaiting UE/LE angio Pt NPO since midnight Dressing to L BKA I/C/D Objective Vitals/I&O Date Time Temp Pulse Resp B/P (MAP) Pulse Ox O2 Delivery O2 Flow Rate FiO2 01/21/18 07:30 98.0 62 18 109/56 (73) 01/21/18 06:00 62 01/21/18 06:00 60 01/21/18 04:00 62 01/21/18 03:33 63 16 126/62 (83) 94 01/21/18 03:00 62 01/21/18 02:00 62 01/21/18 01:00 64 01/21/18 00:10 69 16 131/58 (82) 95 01/21/18 00:00 66 01/20/18 23:00 63 01/20/18 22:00 68 01/20/18 21:00 72 01/20/18 20:00 72 01/20/18 19:20 98.0 71 16 138/67 (90) 96 01/20/18 19:00 71 01/20/18 18:16 73 01/20/18 17:14 68 01/20/18 16:14 68 01/20/18 15:30 70 01/20/18 15:30 98.0 88 16 144/71 (95) 98 01/20/18 14:16 70 01/20/18 13:24 16 01/20/18 13:10 72 01/20/18 12:04 73 01/20/18 11:00 97.7 71 16 146/67 (93) 98 01/20/18 11:00 70 01/20/18 10:32 70 01/20/18 10:21 18 01/21/18 01/21/18 01/21/18 07:00 15:00 23:00 Intake Total 240 ml Output Total 0 ml Balance 240 ml Physical Exam Alert in NAD L BKA incision intact with staple closure No R/D/S/O present/ 2,3,4th digit Fingertips/Right great toe with a darkened discoloration L UE AVF w/ thrill noted Laboratory Date/Time Source Procedure Growth Status 01/19/18 14:45 Wound Toe Gram Stain - Final Resulted 01/19/18 14:45 Wound Toe Wound Culture - Preliminary NO GROWTH IN 24 HOURS. Resulted Assessment and Plan Plan Pt S/P L BKA Dressing removed incision intact Pt with chronic right 2,3,4th fingertip/ right great toe discoloration Pt awaits RIGHT UE/LE angio for today Alba Allen NP [facility] [phone] Discharge Planning likely to rehab Sunday Brother [phone] Alba Allen [facility] Jan 21, 2018 09:58
[2018-01-21] MEDS: GELATIN 12 MM/7 MM FOAM TOP PRN (10:48)
[2018-01-21] MEDS: EPOETIN ALFA 4,000 UNITS/ML VIAL IV PUSH PRN (10:48)
[2018-01-21] MEDS: ASPIRIN 81 MG CHEW TAB CHEW SCH (14:12)
[2018-01-21] MEDS: CHOLECALCIFEROL (VIT D3) 1000 UNIT TAB PO SCH (14:13)
[2018-01-21] MEDS: DULoxetine HCl DR 30 MG CAP PO SCH (14:14)
[2018-01-21] MEDS: amLODIPine BESYLATE 5 MG TAB PO SCH (14:16)
[2018-01-21] MEDS: INSULIN DETEMIR 100 UNITS/ML VIAL SQ SCH (14:18)
[2018-01-21] MEDS: DOCUSATE SODIUM 50 MG/SENNA 8.6 MG TAB PO SCH ×2 (14:23→21:00)
[2018-01-21] MEDS: BUDESONIDE-FORMOTEROL 160/4.5 MCG INHALER INH SCH ×2 (14:24→21:03)
--- NOTE | 2018-01-21 15:06 | HHI.PR ---
Subjective Remarks POD #4 57 yo AAM with PMH of ESRD on HD M/W/F, DM, PAD, HTN, COPD, tobacco abuse who failed revascularization Left LE and underwent left BKA under GETA by Dr. Ortiz, EBL 150cc. Tolerated procedure well, was extubated and transferred to PACU. He is on an insulin drip for uncontrolled DM postoperatively. Critical care was consulted for medical management, insulin drip. 01/18: Blood sugar control adequate on insulin GTT, now hypoglycemic. Transition to pre-meal NovoLog and Levemir 10 units every 12 after starting ADA, renal diet. Nephrology for dialysis 01/19: hypoglycemia resolved. blood sugars again in 200s, but would be much more conservative with ramping up insulin given recent hypoglyemia. patient without complaints and wants to leave ICU. stable from my standpoint. Hospitalist Notes: 01/20: Recommended to continue dressing on until Sunday01/21/18, Plan for right leg and right arm angiography tomorrow. likely to rehab on Sunday. seen in his room no new issues, discussed with nurse, NO nausea, vomit or diarrhea, brittle blood sugar levels switch to Medium sliding scale to avoid complications but will try to keep blood sugar below 180 mg/Dl. 4-9 PATIENT SEEN IN HD TODAY, TO GO FOR ANGIOGRAM AFTER HD DW RN AND PT WAS NPO HEPLOCK D10 IF NO LONGER NPO DW RN AND PT AND CM POD #4 FOR LEFT BKA Objective Vitals Vital Signs Date Time Temp Pulse Resp B/P (MAP) Pulse Ox O2 Delivery O2 Flow Rate FiO2 01/21/18 13:00 97.9 77 137/56 (83) 01/21/18 12:13 98 01/21/18 11:00 66 01/21/18 10:00 60 01/21/18 09:00 60 01/21/18 08:00 62 01/21/18 07:30 98.0 62 18 109/56 (73) 01/21/18 07:00 62 01/21/18 06:00 62 01/21/18 06:00 60 01/21/18 04:00 62 01/21/18 03:33 63 16 126/62 (83) 94 01/21/18 03:00 62 01/21/18 02:00 62 01/21/18 01:00 64 01/21/18 00:10 69 16 131/58 (82) 95 01/21/18 00:00 66 01/20/18 23:00 63 01/20/18 22:00 68 01/20/18 21:00 72 01/20/18 20:00 72 01/20/18 19:20 98.0 71 16 138/67 (90) 96 01/20/18 19:00 71 01/20/18 18:16 73 01/20/18 17:14 68 01/20/18 16:14 68 01/20/18 15:30 70 01/20/18 15:30 98.0 88 16 144/71 (95) 98 I/O 01/20/18 01/20/18 01/20/18 01/21/18 01/21/18 01/21/18 07:00 15:00 23:00 07:00 15:00 23:00 Intake Total 500 ml 480 ml 240 ml Output Total 0 ml 0 ml 0 ml Balance 500 ml 480 ml 240 ml Intake Oral 500 ml 480 ml 240 ml Output Urine Total 0 ml 0 ml 0 ml # Bowel Movements 0 0 0 Result Diagram: 01/19/18 0900 01/19/18 0900 Other Results Laboratory Tests Test 01/19/18 09:00 White Blood Count 9.0 TH/MM3 Red Blood Count 4.17 MIL/MM3 Hemoglobin 9.5 GM/DL Hematocrit 31.6 % Mean Corpuscular Volume 75.8 FL Mean Corpuscular Hemoglobin 22.8 PG Mean Corpuscular Hemoglobin Concent 30.1 % Red Cell Distribution Width 22.2 % Platelet Count 267 TH/MM3 Mean Platelet Volume 9.3 FL Neutrophils (%) (Auto) 79.9 % Lymphocytes (%) (Auto) 10.4 % Monocytes (%) (Auto) 7.6 % Eosinophils (%) (Auto) 1.0 % Basophils (%) (Auto) 1.1 % Neutrophils # (Auto) 7.2 TH/MM3 Lymphocytes # (Auto) 0.9 TH/MM3 Monocytes # (Auto) 0.7 TH/MM3 Eosinophils # (Auto) 0.1 TH/MM3 Basophils # (Auto) 0.1 TH/MM3 CBC Comment DIFF FINAL Differential Comment Blood Urea Nitrogen 52 MG/DL Creatinine 9.18 MG/DL Random Glucose 406 MG/DL Total Protein 7.4 GM/DL Albumin 2.2 GM/DL Calcium Level 8.5 MG/DL Alkaline Phosphatase 411 U/L Aspartate Amino Transf (AST/SGOT) 27 U/L Alanine Aminotransferase (ALT/SGPT) 42 U/L Total Bilirubin 0.8 MG/DL Sodium Level 134 MEQ/L Potassium Level 4.5 MEQ/L Chloride Level 93 MEQ/L Carbon Dioxide Level 25.7 MEQ/L Anion Gap 15 MEQ/L Estimat Glomerular Filtration Rate 7 ML/MIN Objective Remarks GENERAL: Awake alert and oriented 3 talkative and cooperative very cooperative SKIN: Warm and dry. HEAD: Atraumatic. Normocephalic. EYES: Pupils equal and round. No scleral icterus. No injection or drainage. Extraocular muscles intact ENT: No nasal bleeding or discharge. Mucous membranes pink and moist. Tongue is midline NECK: Trachea midline. No JVD. Supple CARDIOVASCULAR: Regular rate and rhythm. S1-S2 no S3-S4 RESPIRATORY: No accessory muscle use. Clear to auscultation. Breath sounds equal bilaterally. GASTROINTESTINAL: Abdomen soft, non-tender, nondistended. Hepatic and splenic margins not palpable. MUSCULOSKELETAL: Extremities without clubbing, cyanosis, or edema. No obvious deformities. Left below the knee amputation with brenda in place clean dry and intact NEUROLOGICAL: Awake and alert. No obvious cranial nerve deficits. Motor grossly within normal limits. Five out of 5 muscle strength in the arms and legs. Normal speech. PSYCHIATRIC: Appropriate mood and affect; insight and judgment normal. Procedures 01/17/2018 PREOPERATIVE DIAGNOSIS: Left lower extremity nonhealing transmetatarsal amputation. POSTOPERATIVE DIAGNOSIS: Left lower extremity nonhealing transmetatarsal amputation. PROCEDURE PERFORMED: Left below-knee amputation. SURGEON: Randy Ortiz MD FIRE FIGHTER CRASH FIRE AND RESCUE SURGEON: Eliu Eduardo MD ANESTHESIA: General. INDICATIONS: Mr. Aguilera is a 57-year-old gentleman with end-stage renal disease and diabetes as well as peripheral arterial disease who was taken to the operating room for a left below-knee amputation electively after a failed transmetatarsal amputation. DESCRIPTION OF PROCEDURE: Consent was obtained from the patient and he was taken to the operating room and placed supine on the operating table. An appropriate timeout was taken to ensure the patient's identity, operative site and the planned procedure. The administration of a gram of vancomycin was initiated prior to skin incision and will be discontinued after a single preoperative dose. Vancomycin was chosen because of the patient's end-stage renal disease. Everyone in the room agreed to the timeout and we proceeded. Left leg was prepped and draped. An incision was made a hand's breadth below the tibial tuberosity, carried down through subcutaneous tissue with electrocautery. The tibia was transected and the fibula was transected with an oscillating saw. A posterior flap was made with electrocautery and the leg was passed off the table as a specimen. The fibula was then resected up to 1 cm cephalad to the tibia transection. The anterior border of the tibia was bevelled and the edges were smoothed to avoid a pressure ulcer. The wound was irrigated and made hemostatic with electrocautery and suture and the wound was closed with 2-0 Polysorb and skin brenda. Sponge and needle counts were correct at the end of the case. I was present, scrubbed, and performed the entire procedure. Medications and IVs Current Medications Miscellaneous Information ALL NURSING DEPARTME... UNSCH PRN .XX SEE LABEL COMMENTS; Start 01/17/18 at 14:30; Stop 01/18/18 at 14:29; Status Cancel Lactated Ringer's 1,000 ml @ 30 mls/hr Q24H PRN IV SEE LABEL COMMENTS; Start at 14:30; Stop 01/20/18 at 14:29; Status DC Sodium Chloride 500 ml @ 30 mls/hr [id number] PRN IV SEE LABEL COMMENTS Last administered on 01/17/18at 14:15; Start 01/17/18 at 14:30; Stop 01/20/18 at 14:29; Status DC Metoprolol Tartrate (Lopressor) 25 mg [employer]ATIONS INSTRUCTOR PRN PO SEE LABEL COMMENTS Last administered on 01/17/18at 15:00; Start 01/17/18 at 14:30; Stop 01/17/18 at 18:36; Status DC Povidone Iodine (Betadine 5% Antisepsis Kit) 1 applic [employer]ATIONS INSTRUCTOR PRN EACH NARE SEE LABEL COMMENTS; Start 01/17/18 at 14:30; Stop 01/20/18 at 14:29; Status DC Chlorhexidine Gluconate (Chlorhexidine 2% Cloth) 3 pack [employer]ATIONS INSTRUCTOR PRN TOPICAL SEE LABEL COMMENTS Last administered on 01/17/18at 14:15; Start 01/17/18 at 14:30; Stop 01/20/18 at 14:29; Status DC Insulin Human Regular (NovoLIN R INJ) See Protocol Table ... HE[employer]CCUPATIONS INSTRUCTOR PRN SQ SEE PROTOCOL TABLE Last administered on 01/17/18at 15:00; Start 01/17/18 at 14:30; Stop 01/17/18 at 18:35; Status DC Cefazolin Sodium (Ancef Inj) 2,000 mg STK-MED ONCE .ROUTE ; Start 01/17/18 at 16: 34; Stop 01/17/18 at 16:35; Status DC Thrombin (Thrombin Top [place]) 20,000 units STK-MED ONCE .ROUTE ; Start 01/17/18 at 16:34; Stop 01/17/18 at 16:35; Status DC Vancomycin HCl (Vancomycin Inj) 1,000 mg STK-MED ONCE .ROUTE Last administered on 01/17/18 16:53; Start 01/17/18 at 16:47; Stop 01/17/18 at 16:48; Status DC Oxycodone HCl (Roxicodone) 5 mg Q4H PRN PO PAIN SCALE 1 TO 5 Last administered on 01/20/18 20:58; Start 01/17/18 at 17:45 Hydromorphone HCl (Dilaudid) 2 mg Q4H PRN PO PAIN SCALE 6 TO 10 Last administered on 01/21/18 14:15; Start 01/17/18 at 17:45 Morphine Sulfate (Morphine Inj) 2 mg Q1H PRN IV BREAKTHROUGH PAIN Last administered on 01/20/18 21:00; Start 01/17/18 at 18:45 Heparin Sodium (Porcine) (Heparin Inj) 5,000 units Q8H SQ Last administered on 01/21/18 00:29; Start 01/18/18 at 17:00 Senna/Docusate Sodium ([place]-Colace) 1 tab BID PO Last administered on 01/20/18 21:41; Start 01/17/18 at 21:00 Sennosides (Senokot) 17.2 mg Q12H PRN PO Moderate constipation; Start 01/17/18 at 17:45 Bisacodyl (Dulcolax Supp) 10 mg DAILY PRN RECTAL SEVERE CONSITIPATION; Start at 17:45 Lactulose (Lactulose Liq) 30 ml DAILY PRN PO SEVERE CONSITIPATION; Start at 17:45 Amlodipine Besylate (Norvasc) 5 mg DAILY PO Last administered on 01/21/18 14:16 ; Start 01/18/18 at 09:00 Aspirin (Aspirin Chew) 81 mg DAILY CHEW Last administered on 01/21/18 14:12; Start 01/18/18 at 09:00 Atorvastatin Calcium (Lipitor) 40 mg HS PO Last administered on 01/20/18 21:41 ; Start 01/17/18 at 21:00 Baclofen (Lioresal) 10 mg DAILY PRN PO hiccups Last administered on 01/21/18 14 :13; Start 01/17/18 at 17:45 Budesonide/ Formoterol Fumarate (Symbicort 160-4.5 Mcg Inh) 1 puff Q12HR INH Last administered on 01/21/18 14:24; Start 01/17/18 at 21:00 Cholecalciferol (Vitamin D3) 1,000 units DAILY PO Last administered on 14:13; Start 01/18/18 at 09:00 Duloxetine HCl (Cymbalta Dr) 30 mg DAILY PO Last administered on 01/21/18 14:14 ; Start 01/18/18 at 09:00 Metoprolol Tartrate (Lopressor) 25 mg Q8HR PO Last administered on 01/21/18 14: 15; Start 01/17/18 at 22:00 Sevelamer Carbonate (Renvela) 2,400 mg TIDAC PO Last administered on 01/20/18 16:38; Start 01/18/18 at 08:00 Non-Formulary Medication 1 tab DAILY .ROUTE ; Start 01/18/18 at 09:00; Status UNV Insulin Human Regular 100 units/ Sodium Chloride 100 ml @ 0.5 mls/hr TITRATE PRN IV Blood Glucose Control Last administered on 01/17/18 18:19; Start 01/17/18 at 17:45; Stop 01/18/18 at 07:09; Status DC Dextrose (D50w (Vial) Inj) 50 ml UNSCH PRN IV PUSH SEE LABEL COMMENTS Last administered on 01/19/18 21:10; Start 01/17/18 at 17:45 Miscellaneous Information 1 ONCE ONCE OTHER ; Start 01/17/18 at 17:45; Stop 01/17 at 18:34; Status DC Insulin Human Regular (NovoLIN R SUPPLEMENTAL SCALE) 10 STK-MED ONCE .ROUTE ; Start 01/17/18 at 17:43; Stop 01/17/18 at 17:44; Status DC Fentanyl Citrate (fentaNYL INJ) 200 mcg STK-MED ONCE .ROUTE ; Start 01/17/18 at 17:57; Stop 01/17/18 at 17:58; Status DC Morphine Sulfate (*morphine INJ PERIprocedure ONLY) 4 mg STK-MED ONCE .ROUTE Last administered on 01/17/18at 18:06; Start 01/17/18 at 18:06; Stop 01/17/18 at 18: 07; Status DC Morphine Sulfate (*morphine INJ PERIprocedure ONLY) 8 mg STK-MED ONCE .ROUTE Last administered on 01/17/18at 18:17; Start 01/17/18 at 18:17; Stop 01/17/18 at 18: 18; Status DC Enalaprilat (*VASOTEC INJ PERIprocedural Use ONLY) 1.25 mg STK-MED ONCE .ROUTE Last administered on 01/17/18at 18:21; Start 01/17/18 at 18:21; Stop 01/17/18 at 18: 22; Status DC Patient Own Medication PT OWN MED: DIALYVITE W/ [id number]... DAILY PO ; Start 01/18 at 09:00; Status Future Hold Metoprolol Tartrate (Lopressor Inj) 5 mg STK-MED ONCE .ROUTE Last administered on 01/17/18at 18:41; Start 01/17/18 at 18:41; Stop 01/17/18 at 18:42; Status DC Metoprolol Tartrate (Lopressor Inj) 5 mg STK-MED ONCE .ROUTE ; Start 01/17/18 at 18:42; Stop 01/17/18 at 18:43; Status DC Morphine Sulfate (*morphine INJ PERIprocedure ONLY) 4 mg STK-MED ONCE .ROUTE Last administered on 01/17/18at 18:43; Start 01/17/18 at 18:43; Stop 01/17/18 at 18: 44; Status DC Miscellaneous Information ALL NURSING DEPARTME... UNSCH PRN .XX SEE LABEL COMMENTS; Start 01/17/18 at 21:30; Stop 01/18/18 at 21:29; Status DC Insulin Aspart (NovoLOG INJ) 3 units TIDAC SQ Last administered on 01/20/18at 16: 38; Start 01/18/18 at 08:00 Insulin Detemir (Levemir Inj) 10 units Q12HR SQ Last administered on 01/18/18at 08:39; Start 01/18/18 at 09:00; Stop 01/19/18 at 12:23; Status DC Sodium Chloride 1,000 ml @ 0 mls/hr Q0M PRN OTHER For Prime & Rinse Back; Start 01/18/18 at 08:13 Heparin Sodium (Porcine) (Heparin Inj) 8,000 units UNSCH PRN IV FLUSH WITH DIALYSIS; Start 01/18/18 at 08:15 Sodium Chloride 1,000 ml @ 200 mls/hr Q5H PRN IV WITH DIALYSIS; Start 01/18/18 at 08:13 Sodium Chloride 1,000 ml @ 0 mls/hr Q0M PRN OTHER WITH DIALYSIS; Start 01/18/18 at 08:13 Mannitol (Mannitol Inj) 12.5 gm UNSCH PRN IV WITH DIALYSIS; Start 01/18/18 at 08 :15 Albumin Human 100 ml @ 60 mls/hr UNSCH PRN IV WITH DIALYSIS; Start 01/18/18 at 08:15 Sodium Chloride (NS Flush) 5 ml UNSCH PRN IV FLUSH WITH DIALYSIS Last administered on 01/19/18at 21:17; Start 01/18/18 at 08:15 Heparin Sodium (Porcine) (Heparin Inj) UNSCH PRN .XX WITH DIALYSIS; Start 01/18 at 08:15 Gentamicin Sulfate (Gentamicin Inj) 20 mg UNSCH PRN OTHER WITH DIALYSIS; Start 01/18/18 at 08:15 Ondansetron HCl (Zofran Inj) 4 mg UNSCH PRN IV PUSH WITH DIALYSIS Last administered on 01/18/18at 19:07; Start 01/18/18 at 08:15 Acetaminophen (Tylenol) 650 mg UNSCH PRN PO for headach, pain, temp > 101F; Start 01/18/18 at 08:15 Diphenhydramine HCl (Benadryl) 25 mg UNSCH PRN PO for hives/itching/anaphylaxis ; Start 01/18/18 at 08:15 Nitroglycerin (Nitrostat Sl) 0.4 mg UNSCH PRN SL CHEST PAIN; Start 01/18/18 at 08:15 Clonidine (Catapres) 0.1 mg UNSCH PRN PO for BP > 180/100 X 2 readings; Start 01/18/18 at 08:15 Epoetin Marco A (Epogen Inj) 4,000 units UNSCH PRN IV PUSH WITH DIALYSIS Last administered on 01/21/18at 10:48; Start 01/18/18 at 08:15 Gelatin (Gelfoam 12 Mm/7 Mm Top) 1 foam UNSCH PRN TOP SEE LABEL COMMENTS Last administered on 01/21/18at 10:48; Start 01/18/18 at 08:15 Hydromorphone HCl (Dilaudid Pf Inj) 1 mg Q4H PRN IV PUSH PAIN SCALE 8 TO 10 Last administered on 01/18/18at 17:57; Start 01/18/18 at 13:45 Glucagon (Glucagon Inj) 1 mg UNSCH PRN OTHER HYPOGLYCEMIA-SEE COMMENTS; Start 01/18/18 at 13:45 Dextrose 1,000 ml @ 40 mls/hr Q24H IV ; Start 01/18/18 at 15:30; Stop 01/18/18 at 15:46; Status DC Dextrose 1,000 ml @ 10 mls/hr Q24H IV Last administered on 01/18/18at 16:44; Start 01/18/18 at 15:45; Stop 01/19/18 at 10:09; Status DC Insulin Aspart (NovoLOG SUPPLEMENTAL SCALE) 1 ACHS SLIDING SCALE SQ Last administered on 01/20/18at 09:30; Start 01/19/18 at 12:00; Stop 01/20/18 at 12:03; Status DC Insulin Detemir (Levemir Inj) 5 units DAILY SQ Last administered on 01/21/18at 14 :18; Start 01/19/18 at 13:00 Insulin Aspart (NovoLOG SUPPLEMENTAL SCALE) 1 ACHS SLIDING SCALE SQ Last administered on 01/20/18at 12:34; Start 01/20/18 at 17:00; Stop 01/21/18 at 06:54; Status DC Miscellaneous Medication ([facility]) 1Please discontinue previ... ONCE ONCE .XX Last administered on 01/20/18at 16:42; Start 01/20/18 at 16:45; Stop 01/20/18 at 16:47; Status DC Dextrose (D50w (Vial) Inj) 50 ml UNSCH PRN IV PUSH HYPOGLYCEMIA - SEE COMMENTS Last administered on 01/20/18at 20:48; Start 01/20/18 at 16:45 Glucagon (Glucagon Inj) 1 mg UNSCH PRN OTHER HYPOGLYCEMIA-SEE COMMENTS; Start 01/20/18 at 16:45 Insulin Aspart (NovoLOG SUPPLEMENTAL SCALE) 1 ACHS SLIDING SCALE SQ ; Start 01/20/18 at 17:00 Sodium Chloride 250 ml @ As Directed STK-MED ONCE IV ; Start 01/17/18 at 12:00; Stop 01/21/18 at 09:05; Status DC Lidocaine HCl (Xylocaine-Mpf 1% Inj) 5 ml STK-MED ONCE OTHER ; Start 01/17/18 at 12:00; Stop 01/21/18 at 09:05; Status DC Rocuronium [place] (Zemuron Inj) 50 mg STK-MED ONCE IV PUSH ; Start 01/17/18 at 12:00; Stop 01/21/18 at 09:05; Status DC Neostigmine Methylsulfate (Prostigmine Inj) 5 mg STK-MED ONCE IV PUSH ; Start at 12:00; Stop 01/21/18 at 09:05; Status DC Glycopyrrolate (Robinul Inj) 1 mg STK-MED ONCE IV PUSH ; Start 01/17/18 at 12:00 ; Stop 01/21/18 at 09:05; Status DC Hydralazine HCl (Apresoline Inj) 20 mg STK-MED ONCE IV ; Start 01/17/18 at 12:00 ; Stop 01/21/18 at 09:05; Status DC Ondansetron HCl (Zofran Inj) 4 mg STK-MED ONCE IV ; Start 01/17/18 at 12:00; Stop 01/21/18 at 09:05; Status DC Propofol (Diprivan 200 Mg/20 ml Inj) 200 mg STK-MED ONCE IV ; Start 01/17/18 at 12:00; Stop 01/21/18 at 09:05; Status DC Labetalol HCl (Trandate Inj) 100 mg STK-MED ONCE IV ; Start 01/17/18 at 12:00; Stop 01/21/18 at 09:05; Status DC Dextrose 500 ml @ 15 mls/hr Q24H IV Last administered on 01/21/18at 09:30; Start 01/21/18 at 09:30 A/P Assessment and Plan 1. Left BKA POD #4, 01/20: Recommended to continue dressing on until Sunday, Plan for right leg and right arm angiography TODAY - ANGIOGRAPHY TODAY- POSSIBLE SNF VS REHAB TOMORROW 2. ESRD on Hemodialysis Nephrology following. SUN-Sun 3. DM II recommended yesterday developed Hypoglycemia on low dosages of Levemir , sliding scale to Medium dose and try to keep blood sugar below 180 mg/dl. 4. Hypertension controlled to continue antihypertensives 5. Depression stable 6. Peripheral Neuropathy by history. 7. Peripheral Artery disease 8. COPD continue supplemental oxygen, Bronchodilator, Mucolytic and incentive spirometry DVT prophylaxis with Heparin Discharge Planning HOPEFULLY TO SNF VS REHAB TOMORROW Carlin Pop DO Jan 21, 2018 15:06
[2018-01-21] MEDS ORDERED: HEPARIN-NS/PF FLUSH BAG 1,000 ML IV FLUSH ONE (15:49)
[2018-01-21] MEDS ORDERED: HEPARIN SODIUM - IV 10,000 UNITS/10 ML VIAL ONE (15:49)
[2018-01-21] MEDS ORDERED: MIDAZOLAM HCL 2 MG/2 ML VIAL ONE (15:49)
[2018-01-21] MEDS ORDERED: LIDOCAINE HCL 1% PF 30 ML VIAL ONE (16:04)
--- NOTE | 2018-01-21 16:32 | HHI.PR ---
cc: Randy Ortiz MD Immediate Post Op Note Procedure Date: Jan 21, 2018 Pre Op Diagnosis: R UE and R LE ischemia Post Op Diagnosis: R UE and R LE ischemia Surgeon: Randy Ortiz Field Services Analyst(s): none Procedure: 1. Thoracic aortogram w/ R UE angiogram 2. R LE angiogram Findings: 1. Patent arch vessels and R UE vessels to mid-forearm, then severe calcific occlusive disease 2. Patent R LE vessels to very diseased peroneal Additional Information: 1. No reconstructive options for R UE 2. R LE observation for now, may ultimately require R LE angiogram under GETA Complications: none 5F removed in OR Specimen(s) removed: none Estimated blood loss: 10mL Anesthesia: MAC Drains: None Patient to: Other (DOCU) Patient Condition: Good Implant/Devices: SEE IMPLANT LOG (if applicable) Date/Time of Procedure: SEE SURGICAL CARE RECORD Randy Ortiz MD Jan 21, 2018 16:32
--- NOTE | 2018-01-21 16:42 | CATHPROC ---
[facility] HIS Report Study Information Study Number Admission Scheduled Start Study Start [id number] Jan 17 2018 1:27PM 01/21/2018 Jan 21 2018 3:44PM Standard Service Cath Endovascular Study Admit Source Facility Department Other [facility] - Grounds Foreman Physician and Clinical Staff Initial MD Ortiz, Randy Cash On Delivery Clerk Merry Barajas,RN Recorder Dima Kelly,RT(R) Scrub Jaime Renteria,RT(R) Procedures Performed Procedure Location (Site) Vessel Name Abdominal Angiogram AO Arch (A1) Aorta Abdominal Angiogram Popliteal R (R10) Popliteal Abdominal Angiogram SFA (right) Femoral Art Abdominal Angiogram Tib, Ant. (right) Popliteal Subclavian Angiogram Subclavian Angiogram Subclav. Art. (Rt.) Subclavian Art. Wire insertion Fem Art (left) Femoral Art Equipment Time Business Loan Processor Description Size Mfg Part Number Used/Scraped [id number] 16:10 ANGIO-DYNAMICS OMNI FLUSH 65CM CATHETER FR 4 Used *[id number] INTRODUCER SET, 15:47 [employer] FR 5 [id number] *[id number] Used MICROPUNCTURE STIFF [id number] *[id number] 15:47 [employer] PACK, CCL CUSTOM * Used *[id number] TUBING, PRESSURE INJECTION [id number] 15:47 NAMIC PACER 72" Used 72" *[id number] 15:47 NYCOMED OMNIPAQUE, 300 MG, 150ML 150ML [id number] Used 15:47 NYCOMED OMNIPAQUE, 300 MG, 50ML 50ML [id number] Used [id number] 15:47 [employer],WARM AIR CCL * Used *[id number] 16:09 TERUMO MEDICAL SHEATH, FR5 TERUMO (10CM) FR 5 Used *[id number] 16:14 TERUMO MEDICAL/YNES CATHETER, FR5 ANGLED 100CM FR 5 [id number] *[id number] Used WIRE, ANGLED GLIDE .035 [id number] 15:47 TERUMO MEDICAL/YNES 260CM Used 260CM *[id number] History: Allergies Allergy Reaction No Known Allergies History: Risk Factors Family History of Hypertension Dyslipidemia Previous NC Previous Heart Failure Premature CAD Yes Yes Yes No No Prior Valve Prior PCI Prior CABG Surgery No No No Cerebrovascular Peripheral Artery Chronic Lung On Dialysis Diabetes Diabetes Therapy Disease Disease Disease Yes No Yes No Yes Insulin Labs Hgb (g/dl) Hct (%) WBC (l/cumm) Platelets (thousands) 11.60-17.00 35.00-51.00 4.00-11.00 150.00-450.00 9.5 31.6 9 267 Glucose (mg/dl) BUN (mg/dl) Creatinine (mg/dl) BUN:Creatinine (1:x) 74.00-106.00 7.00-18.00 0.50-1.30 10.00-20.00 143 52 9.1 5.7 Na (meq/l) K (meq/l) 136.00-145.00 3.50-5.10 134 4.5 CPK-MB (ng/ML) 0.50-3.60 Not Drawn Medication Medication Total Dose (Bolus/Oral) Medication Total Dosage/Unit 1% XYLOCAINE 10 mL HEPARIN 3000 units Medications (Bolus/Oral) Medication Time Given Dosage/Unit Administered By Reason 1% XYLOCAINE 01/21/2018 4:08:48 PM 10 mL Randy Ortiz 10 mL 1% XYLOCAINE given in lab by Randy Ortiz in Left Groin via Subcutaneous. Ordered by Randy Ortiz. HEPARIN 01/21/2018 4:10:40 PM 3000 units Merry Barajas 3000 units HEPARIN given in lab by Merry Barajas RN in Right Wrist via Peripheral IV. Ordered by Randy Eavns. Initial Case Assessment Cardiovascular HR Rhythm NIBP 75 sr 144/65 Edema Present Skin color Skin None Normal Warm Dry Circulatory - Right Pulses Femoral 3 Scale (0,1,2,3,4,d) Circulatory - Left Pulses Femoral 3 Scale (0,1,2,3,4,d) Neurological State Oriented to time-place- Alert Moves all extremities person Respiration - General Respiration Rate SpO2 (%) O2 (lpm) (B/min) 18 96 0 Final Case Assessment Cardiovascular HR Rhythm NIBP 72 sr 139/65 Edema Present Skin color Skin None Normal Warm Dry Circulatory - Right Pulses Femoral 3 Scale (0,1,2,3,4,d) Circulatory - Left Pulses Femoral 3 Scale (0,1,2,3,4,d) Neurological State Oriented to time-place- Alert Moves all extremities person Respiration - General Respiration Rate SpO2 (%) O2 (lpm) (B/min) 18 96 0 Chronological Log Time Study Chronological Log 15:51:12 Patient arrived via Bed. 15:51:14 Patient Name, D.O.B, / Armband Verified By R.N. 15:51:15 Consent signed by the physician and the patient and verified by the Grounds Foreman staff. 15:51:16 Pre-op and post- op instructions given; patient acknowledges understanding of instructions. 15:51:18 Verbal Stimulation=2 Physical Stimulation=2 Airway=2 Respiration=2 TOTAL=8. (0=absent, 1=li mited, 2=present) 15:51:30 Presedation assessment performed by Grounds Foreman RN. 15:51:32 Patient has been NPO for More than 6Hrs. Vitals capture started with the following parameters, Patient=Adult, Interval=5 min, Initial Pr vxnkfc=325 mmHg, 15:59:10 Deflation Rate=5 mmHg, Cuff placed on Right Ankle 16:00:22 HR=75 bpm, WBYM=863/71 mmhg, SpO2=93.0 %, Resp=0 B/min, Recinos=2 16:01:38 History and physical on the chart or being dictated. Assessment: Initial Case, HR=75 BPM, Rhythm=sr, DMIN=369/65 mmhg, Edema=None, Color=Normal, Ski n = Warm, Dry Right Pulses: Femoral=3 16:01:41 Left Pulses: Femoral=3 Neurological: State=Alert, Ox3, DANIEL Respiration: Resp=18 B/min, SpO2=96 %, O2=0 lpm 16:01:48 HR=75 bpm, KJRW=368/65 mmhg, SpO2=97.0 %, Resp=2 B/min, Recinos=2 16:02:22 Bilateral groins prepped with 2% chlorhexidine, and draped after a 3 minute waiting time. 16:03:40 A # 20 IV was noted in the Wrist (right). Grade = 0 16:03:49 HR=75 bpm, YDNN=675/73 mmhg, SpO2=91.0 %, Resp=8 B/min, Recinos=2 16:05:50 HR=74 bpm, QMYH=430/72 mmhg, SpO2=95.0 %, Resp=3 B/min, Recinos=2 16:07:49 HR=74 bpm, UEVF=864/72 mmhg, SpO2=97.0 %, Resp=5 B/min, Recinos=2 Time Out. Correct patient, correct procedure, correct physician, power injector loaded with jeff hernandez with surgical team 16:07:59 present. Time Out Concurred by MD and individual staff in procedure. Loaded by Abeba Barajas rn, ve rified by Jaime Renteria. 16:08:32 Case Start 16:08:41 Verbal Stimulation=2 Physical Stimulation=2 Airway=2 Respiration=2 TOTAL=8. (0=absent, 1=li mited, 2=present) 16:08:48 10 mL 1% XYLOCAINE given in lab by Randy Ortiz in Left Groin via Subcutaneous. Ordered b y Randy Ortiz. 16:08:58 Access site was Left Femoral Artery. A INTRODUCER SET, MICROPUNCTURE STIFF FR 5 was advanced into the Fem Art (left) using the Percu taneous 16:09:05 technique. A SHEATH, FR5 TERUMO (10CM) FR 5 was exchanged in the Fem Art (right). This was necessary in or nancy to 16:09:17 accomodate a larger catheter. 16:09:44 Reference ECG taken 16:09:49 HR=75 bpm, ADPT=270/71 mmhg, SpO2=95.0 %, Resp=6 B/min, Recinos=2 A PIGTAIL STR. INFINITI CATHETER FR 5 was advanced over a wire. OMNIPAQUE, 300 MG, 150ML 150ML was used for 16:09:57 injections. 16:10:40 3000 units HEPARIN given in lab by Merry Barajas RN in Right Wrist via Peripheral IV. Or dered by Randy Ortiz. 16:11:19 Wire removed 16:11:48 HR=74 bpm, HSKN=703/72 mmhg, SpO2=92.0 %, Resp=12 B/min, Recinos=2 16:12:22 Through a PIGTAIL STR. INFINITI CATHETER FR 5, The Abdominal Aorta was injected with 6.5 cc 's of contrast. 16:13:51 HR=73 bpm, GYKL=953/68 mmhg, SpO2=95.0 %, Resp=11 B/min, Recinos=2 After removing the current catheter a CATHETER, FR5 ANGLED 100CM FR 5 was advanced over a WIRE, ANGLED 16:14:51 GLIDE .035 260CM 260CM. Through a CATHETER, FR5 ANGLED 100CM FR 5, The Subclav. Art. (Rt.) was injected with a total of 5 cc's of contrast. 16:15:38 OMNIPAQUE, 300 MG, 150ML 150ML used. 16:15:50 HR=73 bpm, ABPJ=877/63 mmhg, SpO2=98.0 %, Resp=14 B/min 16:16:06 Through a catheter, The axillary artery was injected with a total of ~CC'S~ cc's of contras t. contrast used. 16:16:59 Through a catheter, The radial and ulnar was injected with a total of ~CC'S~ cc's of contra st. contrast used. 16:17:51 HR=74 bpm, FCAC=672/64 mmhg, SpO2=96.0 %, Resp=15 B/min 16:19:50 HR=74 bpm, UTDN=051/65 mmhg, SpO2=94.0 %, Resp=14 B/min 16:20:50 A WIRE, ANGLED GLIDE .035 260CM 260CM was inserted via Fem Art (left). After removing the current catheter a OMNI FLUSH 65CM CATHETER FR 4 was advanced over a WIRE, A NGLED GLIDE 16:21:20 .035 260CM 260CM. 16:21:48 HR=73 bpm, ZNNH=605/67 mmhg, SpO2=99.0 %, Resp=14 B/min 16:23:23 Through a OMNI FLUSH 65CM CATHETER FR 4, The Abdominal Aorta was injected with 4 cc's of co ntrast. 16:23:47 Through a OMNI FLUSH 65CM CATHETER FR 4, The Abdominal Aorta was injected with 4 cc's of co ntrast. 16:23:51 HR=73 bpm, PXPR=413/66 mmhg, SpO2=99.0 %, Wakq=219 B/min 16:24:04 Through a OMNI FLUSH 65CM CATHETER FR 4, The Abdominal Aorta was injected with 4 cc's of co ntrast. 16:24:49 Through a OMNI FLUSH 65CM CATHETER FR 4, The Abdominal Aorta was injected with 4 cc's of co ntrast. 16:25:38 Through a OMNI FLUSH 65CM CATHETER FR 4, The Abdominal Aorta was injected with 4 cc's of co ntrast. 16:25:50 HR=73 bpm, TRJE=664/72 mmhg, SpO2=94.0 %, Resp=9 B/min 16:26:40 Catheter was removed 16:27:51 HR=72 bpm, TLVW=848/65 mmhg, SpO2=99.0 %, Resp=15 B/min Assessment: Final Case, HR=72 BPM, Rhythm=sr, EHYT=859/65 mmhg, Edema=None, Color=Normal, Skin = Warm, Dry Right Pulses: Femoral=3 16:28:01 Left Pulses: Femoral=3 Neurological: State=Alert, Ox3, DANIEL Respiration: Resp=18 B/min, SpO2=96 %, O2=0 lpm 16:28:15 Catheter(s) removed without difficulty 16:29:54 HR=73 bpm, SIEQ=817/64 mmhg, SpO2=97.0 %, Resp=15 B/min 16:30:16 Sheath removed; pressure applied to access site. 16:30:18 No case complications noted. 16:30:23 Cine recording checked. 16:30:24 Bedside Report will be given. 16:30:28 Verbal Stimulation=2 Physical Stimulation=2 Airway=2 Respiration=2 TOTAL=8. (0=absent, 1=l imited, 2=present) 16:31:50 HR=75 bpm, BSJT=732/73 mmhg, SpO2=94.0 %, Resp=13 B/min 16:33:53 HR=74 bpm, TLLS=413/68 mmhg, SpO2=99.0 %, Resp=15 B/min 16:35:52 HR=75 bpm, FAST=087/72 mmhg, SpO2=93.0 %, Resp=14 B/min 16:37:53 HR=74 bpm, XOLF=207/71 mmhg, SpO2=99.0 %, Resp=16 B/min 16:39:52 HR=74 bpm, QQIC=124/71 mmhg, SpO2=97.0 %, Resp=8 B/min 16:41:53 HR=74 bpm, BYIN=804/72 mmhg, ByR1=717.0 %, Resp=15 B/min 16:41:54 Sterile dressing applied to site 16:42:02 Patient moved to stretcher End Study - Contrast Media Used In Study Contrast Total Opened (mL) Total Used (mL) Total Wasted (mL) Omnipaque 45 45 0 End Study - Maximum Contrast Load Max Contrast Load (mL) 37.1 End Study - Radiation Exposure Fluoro Time (minutes) 4.0 End Study - Sheaths Sheaths Pulled By Sheath Hold Time (min) Jaime Renteria 10 End Study - Patient Disposition Complications Transferred To Interventional Outcome No Telemetry Bed No attempt made
[2018-01-21] MEDS: ATORVASTATIN 40 MG TAB PO SCH (21:03)
[2018-01-22] VITALS (28 sets, daily range): BP systolic 128–153; BP diastolic 53–77; PULSE 64–82; RESP 16–18; TEMP 97.9–98.7; O2SAT 95–98
[2018-01-22] MEDS: HEPARIN SODIUM - SQ 10,000 UNITS/ML VIAL SQ SCH ×3 (01:09→18:00)
[2018-01-22] MEDS: METOPROLOL TARTRATE 25 MG TAB PO SCH ×3 (05:59→21:30)
[2018-01-22 06:43] LABS: AUTOMATED NEUTROPHIL # 8.2 TH/MM3 (1.8-7.7); BASOPHIL # 0.1 TH/MM3 (0-0.2); BASOPHIL % 0.7 % (0.0-2.0); EOSINOPHIL # 0.1 TH/MM3 (0-0.4); HEMATOCRIT 30.3 % (39.0-51.0); HEMOGLOBIN 9.4 GM/DL (13.0-17.0); LYMPH % 9.8 % (9.0-44.0); LYMPHOCYTE # 1.1 TH/MM3 (1.0-4.8); MEAN CELL VOLUME 74.6 FL (80.0-100.0); MEAN CORPUSCULAR HEMOGLOBIN 23.3 PG (27.0-34.0); MEAN CORPUSCULAR HGB CONC 31.2 % (32.0-36.0); MEAN PLATELET VOLUME 9.7 FL (7.0-11.0); MONO % 13.2 % (0.0-8.0); MONOCYTE # 1.4 TH/MM3 (0-0.9); NEUT % 75.3 % (16.0-70.0); PLATELET COUNT 251 TH/MM3 (150-450); RED BLOOD COUNT 4.06 MIL/MM3 (4.50-5.90); RED CELL DISTRIBUTION WIDTH 22.5 % (11.6-17.2); WHITE BLOOD COUNT 10.9 TH/MM3 (4.0-11.0)
[2018-01-22 07:07] LABS: ALBUMIN 2.3 GM/DL (3.4-5.0); ALKALINE PHOSPHATASE 457 U/L (45-117); ALT (GPT) 812 U/L (12-78); AST (GOT) 1743 U/L (15-37); BICARBONATE 25.4 MEQ/L (21.0-32.0); BLOOD UREA NITROGEN 59 MG/DL (7-18); CALCIUM 8.9 MG/DL (8.5-10.1); CHLORIDE 96 MEQ/L (98-107); CREATININE 8.93 MG/DL (0.60-1.30); FREE T4 1.06 NG/DL (0.76-1.46); GLOMERULAR FILTRATION RATE 7 ML/MIN (>89); GLUCOSE,RANDOM 172 MG/DL (74-106); MAGNESIUM 2.3 MG/DL (1.5-2.5); SODIUM (NA) 136 MEQ/L (136-145); TOTAL BILIRUBIN ADULT 1.1 MG/DL (0.2-1.0); TOTAL PROTEIN 7.5 GM/DL (6.4-8.2)
--- NOTE | 2018-01-22 07:08 | MP ---
cc: Randy Ortiz MD DATE OF OPERATION: 01/21/2018 PREOPERATIVE DIAGNOSES: 1. Right upper extremity digital gangrene. 2. Right lower extremity diabetic foot ulcer, peripheral arterial occlusive disease. POSTOPERATIVE DIAGNOSIS: 1. Right upper extremity digital gangrene. 2. Right lower extremity diabetic foot ulcer, peripheral arterial occlusive disease. PROCEDURE PERFORMED: 1. Thoracic aortogram with right extremity angiogram. 2. Right lower extremity angiogram. ATTENDING SURGEON: Randy Ortiz MD. ANESTHESIA: Local with sedation. INDICATIONS FOR PROCEDURE: Mr. Aguilera is a 57-year-old gentleman with diabetes and end-stage renal disease. He has right upper extremity tissue loss and right lower extremity tissue loss and is taken to the operating room for angiographic evaluation and treatment. There was no prior catheter-based imaging of the right upper extremity, nor catheter-based imaging of the right lower extremity since the recurrence of his tissue loss. He is taken to the operating room for this. DESCRIPTION OF PROCEDURE: Informed consent was obtained from the patient. He was taken to the operating room and placed supine on the operating table. An appropriate time-out was taken to ensure the patient's identity, operative site and planned procedure. The administration of antibiotics was not necessary as this is a clean procedure without planned implantation of any foreign objects. Everyone in the room agreed with the time-out and we proceeded. His left groin was prepped and draped and locally anesthetized. A 21-gauge micropuncture needle was used to access the left common femoral artery. This was exchanged using Seldinger technique for the micropuncture sheath, through which was 0.025 Glidewire was introduced and the micropuncture sheath was exchanged for a 5-Frisian sheath. The patient was systemically heparinized with 3000 units of IV heparin. The Glidewire was advanced to the ascending aorta and a pigtail catheter was advanced over this. A thoracic aortogram was obtained. The Glidewire was reintroduced and the pigtail catheter was exchanged for a long glide catheter. This was used to selectively catheterize the innominate right subclavian and right axillary arteries and a right upper extremity arteriogram was obtained. The Glidewire was reintroduced and then the glide catheter was exchanged for a VCF catheter and the Glidewire and VCF catheter were used to navigate down to the right common femoral artery and a right lower extremity arteriogram was obtained with the catheter in the right common femoral artery. The wire, catheter and sheath were removed and pressure was held for hemostasis. There were no complications. I was present and scrubbed and performed the entire procedure. INTERPRETATION IMAGES: The patient has a patent 3-vessel aortic arch without any hemodynamically significant stenoses. The innominate proximal subclavian, axillary, and brachial arteries are all widely patent down to the antecubital. In the distal forearm, there is significant calcific occlusive disease with a very diseased ulnar artery being dominant and a poorly opacifying palmar arch. On the right lower extremity, the common femoral artery and profunda are patent without any hemodynamically significant stenoses. The right superficial femoral and popliteal artery are similarly patent without any hemodynamically significant stenoses. The peroneal artery has a dominant runoff to the foot, but there is also a posterior tibial artery to the foot. There was only intrinsic distal tibial disease at the level of the foot. Randy Ortiz MD RJF/DL , 06:22 AM , 07:08 AM
[2018-01-22] MEDS: INSULIN ASPART 1,000 UNITS/10 ML VIAL SQ SCH ×3 (08:00→17:00)
[2018-01-22] MEDS: MEDIUM DOSE INSULIN NOVOLOG SUPPLEMENTAL SCALE SQ SCH ×4 (08:00→21:00)
[2018-01-22] MEDS: INSULIN DETEMIR 100 UNITS/ML VIAL SQ SCH (09:00)
[2018-01-22] MEDS ORDERED: DEXTROSE 10% INJ 500 ML IV PRN (09:30)
--- NOTE | 2018-01-22 09:39 | HHI.NPPN ---
Subjective General Problems: Anemia Renal Failure: Chronic, End Stage Renal Disease Interval History Dialyzed yesterday. K 5.6. s/p angio of right upper and lower extremities yesterday, results reviewed. (Jasmyne Bee) Review of Systems General Constitutional: Fatigue (Jasmyne Bee) Objective Data Data Vital Signs Date Time Temp Pulse Resp B/P (MAP) Pulse Ox O2 Delivery O2 Flow Rate FiO2 01/22/18 08:03 82 18 128/53 (78) 98 01/22/18 06:00 67 01/22/18 05:00 69 01/22/18 04:00 66 01/22/18 03:30 98.7 67 16 140/70 (93) 98 01/22/18 03:00 66 01/22/18 02:00 66 01/22/18 01:00 64 01/22/18 00:00 64 01/22/18 00:00 98.4 79 16 144/77 (99) 96 01/21/18 23:00 68 01/21/18 22:00 66 01/21/18 21:00 70 01/21/18 20:00 72 01/21/18 20:00 98.8 74 16 140/69 (92) 95 01/21/18 19:00 74 01/21/18 18:00 72 01/21/18 17:46 18 01/21/18 17:00 72 01/21/18 15:12 98.5 74 19 133/58 (83) 97 01/21/18 15:00 75 01/21/18 14:00 74 01/21/18 13:00 97.9 77 137/56 (83) 01/21/18 13:00 75 01/21/18 12:13 98 01/21/18 11:00 66 01/21/18 10:00 60 (Jasmyne Bee) -: 01/22/18 0512 01/22/18 0512 Tubes & Lines Comment Ta catheter (Jasmyne Bee) Physical Exam General Appearance: Well Developed, Well Nourished, Comfortable (Jasmyne Bee) Eyes Eye Exam: Pupils Equal, Pupils Reactive (Jasmyne Bee) Neck Neck Exam: Neck Supple (Jasmyne Bee) Pulmonary Resp Exam: Clear Bilaterally, Breath Sounds Equal (Jasmyne Bee) Cardiology CV Exam: Regular, Normal Sinus Rhythm (Jasmyne Bee) Gastrointestinal/Abdomen GI Exam: Soft, Non-Tender, Bowel Sounds Present (Jasmyne Bee) Musculoskeletal MS Exam: Normal Tone, Unable to Ambulate MS Remarks s/p L BKA, brenda intact. (Jasmyne Bee) Integumentary Skin Exam: Warm, Dry, Intact (Jasmyne Bee) Extremeties Extremities Exam: Pedal Pulses Palpable Extremeties Remarks on right (Jasmyne Bee) Neurologic Neuro Exam: Alert, Awake, Oriented, Speech Clear, Moving All Extremities (Jasmyne Bee) Psychiatric Psych Exam: Appropriate Responses (Jasmyne Bee) Assessment/Plan Discussed Condition With: Patient Assessment Summary: Anemia of CKD, Hypertension, End Stage Renal Disease Problem List: (1) ESRD (end stage renal disease) ICD Codes: N18.6 - End-stage renal disease Status: Resolved Plan: HD MWF, 2L UF K 5.6, give Kayexalate today. Discussed low k diet. Obtain labs tomorrow, HD tomorrow. Patent AVF, protect Left upper ext Monitor labs intermittently Avoid IVF administration On sevelamer for metabolic bone disorder. Phosphorus is high but improving. (2) PAD (peripheral artery disease) ICD Codes: I73.9 - Peripheral vascular disease, unspecified Status: Chronic Plan: S/p L BKA, healing well. Angio of RUE and RLE yesterday, he has occlusions, vascular and podiatry are following. Continue Wound care , cultures negative to date Pain control It is unclear if we can remove Ta catheter. Consider ID consultation to assist. (3) HTN (hypertension) ICD Codes: I10 - Essential (primary) hypertension Status: Chronic Plan: Continue current medications, titrate to effect Permanent Comment: Last Edited By: Jasmyne Bee on Jul 11, 2017 15:31 (4) DM (diabetes mellitus) ICD Codes: E11.9 - Type 2 diabetes mellitus without complications Status: Chronic Plan: Use D10 if hypoglycemic or NPO Maintain glucose 140-180 mg/dL Needs to eat regularly, he is a very brittle diabetic (5) Anemia ICD Codes: D64.9 - Anemia, unspecified Plan: Epogen per protocol. (Jasmyne Bee) Plan patient was seen and examined. Agree with above assessment and plan. May need dialysis due to hyperkalemia. (Maurice Schultz MD) Jasmyne Bee Jan 22, 2018 09:39 Maurice Schultz MD Jan 22, 2018 10:38
[2018-01-22] MEDS ORDERED: SODIUM POLYSTYRENE SULFONATE SUSP 15 GM/60 ML CUP PO ONE (09:45)
[2018-01-22] MEDS: DULoxetine HCl DR 30 MG CAP PO SCH (10:25)
[2018-01-22] MEDS: amLODIPine BESYLATE 5 MG TAB PO SCH (10:25)
[2018-01-22] MEDS: SEVELAMER CARBONATE 800 MG TAB PO SCH ×3 (10:25→18:00)
[2018-01-22] MEDS: ASPIRIN 81 MG CHEW TAB CHEW SCH (10:25)
[2018-01-22] MEDS: CHOLECALCIFEROL (VIT D3) 1000 UNIT TAB PO SCH (10:25)
[2018-01-22] MEDS: DOCUSATE SODIUM 50 MG/SENNA 8.6 MG TAB PO SCH ×2 (10:25→21:00)
[2018-01-22] MEDS: MORPHINE SULFATE 2 MG/ML SYRINGE IV PRN ×2 (10:26→12:44)
[2018-01-22] MEDS: BUDESONIDE-FORMOTEROL 160/4.5 MCG INHALER INH SCH ×2 (10:27→21:30)
--- NOTE | 2018-01-22 10:39 | PD.VS.PN ---
Subjective POD #: 1 Procedure(s): Thoracic aortogram w/ R UE angiogram R LE angiogram L BKA POD 5 Subjective/Hospital Course Pt alert in NAD L great toe wound stable Right 2,3,4th tips of digits discolored (stable) w/o change L BKA incision intact w/o R/D/S/O L LE warm w/ motor intact Objective Vitals/I&O Date Time Temp Pulse Resp B/P (MAP) Pulse Ox O2 Delivery O2 Flow Rate FiO2 01/22/18 08:03 82 18 128/53 (78) 98 01/22/18 06:00 67 01/22/18 05:00 69 01/22/18 04:00 66 01/22/18 03:30 98.7 67 16 140/70 (93) 98 01/22/18 03:00 66 01/22/18 02:00 66 01/22/18 01:00 64 01/22/18 00:00 64 01/22/18 00:00 98.4 79 16 144/77 (99) 96 01/21/18 23:00 68 01/21/18 22:00 66 01/21/18 21:00 70 01/21/18 20:00 72 01/21/18 20:00 98.8 74 16 140/69 (92) 95 01/21/18 19:00 74 01/21/18 18:00 72 01/21/18 17:46 18 01/21/18 17:00 72 01/21/18 15:12 98.5 74 19 133/58 (83) 97 01/21/18 15:00 75 01/21/18 14:00 74 01/21/18 13:00 97.9 77 137/56 (83) 01/21/18 13:00 75 01/21/18 12:13 98 01/21/18 11:00 66 01/22/18 01/22/18 01/22/18 07:00 15:00 23:00 Intake Total 240 ml Output Total 0 ml Balance 240 ml Exam: Afebrile 57/M Alert in NAD L BKA incision intact with staple closure No R/D/S/O present/ RIGHT 2,3,4th digit Fingertips/Right great toe with a darkened discoloration (stable) L UE AVF w/ thrill noted Right DP with biphasic signals heard via Doppler Laboratory Laboratory Tests Test 01/22/18 05:12 White Blood Count 10.9 Red Blood Count 4.06 Hemoglobin 9.4 Hematocrit 30.3 Mean Corpuscular Volume 74.6 Mean Corpuscular Hemoglobin 23.3 Mean Corpuscular Hemoglobin Concent 31.2 Red Cell Distribution Width 22.5 Platelet Count 251 Mean Platelet Volume 9.7 Neutrophils (%) (Auto) 75.3 Lymphocytes (%) (Auto) 9.8 Monocytes (%) (Auto) 13.2 Eosinophils (%) (Auto) 1.0 Basophils (%) (Auto) 0.7 Neutrophils # (Auto) 8.2 Lymphocytes # (Auto) 1.1 Monocytes # (Auto) 1.4 Eosinophils # (Auto) 0.1 Basophils # (Auto) 0.1 CBC Comment DIFF FINAL Differential Comment Blood Urea Nitrogen 59 Creatinine 8.93 Random Glucose 172 Total Protein 7.5 Albumin 2.3 Calcium Level 8.9 Phosphorus Level 7.0 Magnesium Level 2.3 Alkaline Phosphatase 457 Aspartate Amino Transf (AST/SGOT) 1743 Alanine Aminotransferase (ALT/SGPT) 812 Total Bilirubin 1.1 Sodium Level 136 Potassium Level 5.6 Chloride Level 96 Carbon Dioxide Level 25.4 Anion Gap 15 Estimat Glomerular Filtration Rate 7 Free Thyroxine 1.06 Thyroid Stimulating Hormone 3rd Gen 5.290 Date/Time Source Procedure Growth Status 01/19/18 14:45 Wound Toe Gram Stain - Final Resulted 01/19/18 14:45 Wound Culture - Preliminary Yeast-Id To Follow Resulted Assessment and Plan Assessment: (1) PAD (peripheral artery disease) Status: Chronic (2) Status post amputation Plan Pt S/P L BKA and Thoracic aortogram w/ R UE angiogram/R LE angiogram Incision to L BKA intact Pt with chronic right 2,3,4th fingertip/ right great toe discoloration Plan No reconstructive options for R UE Pt with stable R LE wounds/ will continue to monitor Arranging out pt f/u in a few weeks with surveillance KINJAL/WBI studies Alba Allen NP [facility] [phone] Discharge Planning likely to rehab Sunday Brother [phone] Alba Allen [facility] Jan 22, 2018 10:39
[2018-01-22] MEDS ORDERED: INSULIN HUMAN REGULAR 1,000 UNITS/10 ML VIAL IV PUSH ONE (11:00)
[2018-01-22] MEDS ORDERED: DEXTROSE 50% IN WATER 50 ML SYRINGE IV PUSH ONE (11:00)
--- NOTE | 2018-01-22 15:48 | HHI.PR ---
Subjective Remarks POD #5 57 yo AAM with PMH of ESRD on HD M/W/F, DM, PAD, HTN, COPD, tobacco abuse who failed revascularization Left LE and underwent left BKA under GETA by Dr. Ortiz, EBL 150cc. Tolerated procedure well, was extubated and transferred to PACU. He is on an insulin drip for uncontrolled DM postoperatively. Critical care was consulted for medical management, insulin drip. 01/18: Blood sugar control adequate on insulin GTT, now hypoglycemic. Transition to pre-meal NovoLog and Levemir 10 units every 12 after starting ADA, renal diet. Nephrology for dialysis 01/19: hypoglycemia resolved. blood sugars again in 200s, but would be much more conservative with ramping up insulin given recent hypoglyemia. patient without complaints and wants to leave ICU. stable from my standpoint. Hospitalist Notes: 01/20: Recommended to continue dressing on until Sunday01/21/18, Plan for right leg and right arm angiography tomorrow. likely to rehab on Sunday. seen in his room no new issues, discussed with nurse, NO nausea, vomit or diarrhea, brittle blood sugar levels switch to Medium sliding scale to avoid complications but will try to keep blood sugar below 180 mg/Dl. 4-9 PATIENT SEEN IN HD TODAY, TO GO FOR ANGIOGRAM AFTER HD DW RN AND PT WAS NPO HEPLOCK D10 IF NO LONGER NPO DW RN AND PT AND CM POD #4 FOR LEFT BKA 4-10 POD #5 HAD ANGIOGRAM YESTERDAY DW RN AND PT AND CASE MANAGEMENT TO GO TO HD TOMORROW HOPEFULLY TO SNF TOMORROW POD #5 FOR LEFT BKA MONITOR DIABETES Objective Vitals Vital Signs Date Time Temp Pulse Resp B/P (MAP) Pulse Ox O2 Delivery O2 Flow Rate FiO2 01/22/18 08:03 82 18 128/53 (78) 98 01/22/18 06:00 67 01/22/18 05:00 69 01/22/18 04:00 66 01/22/18 03:30 98.7 67 16 140/70 (93) 98 01/22/18 03:00 66 01/22/18 02:00 66 01/22/18 01:00 64 01/22/18 00:00 64 01/22/18 00:00 98.4 79 16 144/77 (99) 96 01/21/18 23:00 68 01/21/18 22:00 66 01/21/18 21:00 70 01/21/18 20:00 72 01/21/18 20:00 98.8 74 16 140/69 (92) 95 01/21/18 19:00 74 01/21/18 18:00 72 01/21/18 17:46 18 01/21/18 17:00 72 I/O 01/21/18 01/21/18 01/21/18 01/22/18 01/22/18 01/22/18 07:00 15:00 23:00 07:00 15:00 23:00 Intake Total 240 ml 240 ml 240 ml Output Total 0 ml 2000 ml 0 ml 0 ml Balance 240 ml -2000 ml 240 ml 240 ml Intake Oral 240 ml 240 ml 240 ml Output Urine Total 0 ml 0 ml 0 ml Hemodialysis 2000 ml # Bowel Movements 0 0 Result Diagram: 01/22/18 0512 01/22/18 1421 Other Results Laboratory Tests Test 01/22/18 05:12 01/22/18 14:21 White Blood Count 10.9 TH/MM3 Red Blood Count 4.06 MIL/MM3 Hemoglobin 9.4 GM/DL Hematocrit 30.3 % Mean Corpuscular Volume 74.6 FL Mean Corpuscular Hemoglobin 23.3 PG Mean Corpuscular Hemoglobin Concent 31.2 % Red Cell Distribution Width 22.5 % Platelet Count 251 TH/MM3 Mean Platelet Volume 9.7 FL Neutrophils (%) (Auto) 75.3 % Lymphocytes (%) (Auto) 9.8 % Monocytes (%) (Auto) 13.2 % Eosinophils (%) (Auto) 1.0 % Basophils (%) (Auto) 0.7 % Neutrophils # (Auto) 8.2 TH/MM3 Lymphocytes # (Auto) 1.1 TH/MM3 Monocytes # (Auto) 1.4 TH/MM3 Eosinophils # (Auto) 0.1 TH/MM3 Basophils # (Auto) 0.1 TH/MM3 CBC Comment DIFF FINAL Differential Comment Blood Urea Nitrogen 59 MG/DL Creatinine 8.93 MG/DL Random Glucose 172 MG/DL Total Protein 7.5 GM/DL Albumin 2.3 GM/DL Calcium Level 8.9 MG/DL Phosphorus Level 7.0 MG/DL Magnesium Level 2.3 MG/DL Alkaline Phosphatase 457 U/L Aspartate Amino Transf (AST/SGOT) 1743 U/L Alanine Aminotransferase (ALT/SGPT) 812 U/L Total Bilirubin 1.1 MG/DL Sodium Level 136 MEQ/L Potassium Level 5.6 MEQ/L 4.7 MEQ/L Chloride Level 96 MEQ/L Carbon Dioxide Level 25.4 MEQ/L Anion Gap 15 MEQ/L Estimat Glomerular Filtration Rate 7 ML/MIN Free Thyroxine 1.06 NG/DL Thyroid Stimulating Hormone 3rd Gen 5.290 uIU/ML Objective Remarks GENERAL: Awake alert and oriented 3 talkative and cooperative very cooperative SKIN: Warm and dry. HEAD: Atraumatic. Normocephalic. EYES: Pupils equal and round. No scleral icterus. No injection or drainage. Extraocular muscles intact ENT: No nasal bleeding or discharge. Mucous membranes pink and moist. Tongue is midline NECK: Trachea midline. No JVD. Supple CARDIOVASCULAR: Regular rate and rhythm. S1-S2 no S3-S4 RESPIRATORY: No accessory muscle use. Clear to auscultation. Breath sounds equal bilaterally. GASTROINTESTINAL: Abdomen soft, non-tender, nondistended. Hepatic and splenic margins not palpable. MUSCULOSKELETAL: Extremities without clubbing, cyanosis, or edema. No obvious deformities. Left below the knee amputation with brenda in place clean dry and intact NEUROLOGICAL: Awake and alert. No obvious cranial nerve deficits. Motor grossly within normal limits. Five out of 5 muscle strength in the arms and legs. Normal speech. PSYCHIATRIC: Appropriate mood and affect; insight and judgment normal. Procedures 01/17/2018 PREOPERATIVE DIAGNOSIS: Left lower extremity nonhealing transmetatarsal amputation. POSTOPERATIVE DIAGNOSIS: Left lower extremity nonhealing transmetatarsal amputation. PROCEDURE PERFORMED: Left below-knee amputation. SURGEON: Randy Ortiz MD SENIOR INTEGRATION ARCHITECT SURGEON: Eliu Eduardo MD ANESTHESIA: General. INDICATIONS: Mr. Aguilera is a 57-year-old gentleman with end-stage renal disease and diabetes as well as peripheral arterial disease who was taken to the operating room for a left below-knee amputation electively after a failed transmetatarsal amputation. DESCRIPTION OF PROCEDURE: Consent was obtained from the patient and he was taken to the operating room and placed supine on the operating table. An appropriate timeout was taken to ensure the patient's identity, operative site and the planned procedure. The administration of a gram of vancomycin was initiated prior to skin incision and will be discontinued after a single preoperative dose. Vancomycin was chosen because of the patient's end-stage renal disease. Everyone in the room agreed to the timeout and we proceeded. Left leg was prepped and draped. An incision was made a hand's breadth below the tibial tuberosity, carried down through subcutaneous tissue with electrocautery. The tibia was transected and the fibula was transected with an oscillating saw. A posterior flap was made with electrocautery and the leg was passed off the table as a specimen. The fibula was then resected up to 1 cm cephalad to the tibia transection. The anterior border of the tibia was bevelled and the edges were smoothed to avoid a pressure ulcer. The wound was irrigated and made hemostatic with electrocautery and suture and the wound was closed with 2-0 Polysorb and skin brenda. Sponge and needle counts were correct at the end of the case. I was present, scrubbed, and performed the entire procedure. 01/21/2018 PREOPERATIVE DIAGNOSES: 1. Right upper extremity digital gangrene. 2. Right lower extremity diabetic foot ulcer, peripheral arterial occlusive disease. POSTOPERATIVE DIAGNOSIS: 1. Right upper extremity digital gangrene. 2. Right lower extremity diabetic foot ulcer, peripheral arterial occlusive disease. PROCEDURE PERFORMED: 1. Thoracic aortogram with right extremity angiogram. 2. Right lower extremity angiogram. ATTENDING SURGEON: Randy Ortiz MD. ANESTHESIA: Local with sedation. INDICATIONS FOR PROCEDURE: Mr. Aguilera is a 57-year-old gentleman with diabetes and end-stage renal disease. He has right upper extremity tissue loss and right lower extremity tissue loss and is taken to the operating room for angiographic evaluation and treatment. There was no prior catheter-based imaging of the right upper extremity, nor catheter-based imaging of the right lower extremity since the recurrence of his tissue loss. He is taken to the operating room for this. DESCRIPTION OF PROCEDURE: Informed consent was obtained from the patient. He was taken to the operating room and placed supine on the operating table. An appropriate time-out was taken to ensure the patient's identity, operative site and planned procedure. The administration of antibiotics was not necessary as this is a clean procedure without planned implantation of any foreign objects. Everyone in the room agreed with the time-out and we proceeded. His left groin was prepped and draped and locally anesthetized. A 21-gauge micropuncture needle was used to access the left common femoral artery. This was exchanged using Seldinger technique for the micropuncture sheath, through which was 0.025 Glidewire was introduced and the micropuncture sheath was exchanged for a 5-Welsh sheath. The patient was systemically heparinized with 3000 units of IV heparin. The Glidewire was advanced to the ascending aorta and a pigtail catheter was advanced over this. A thoracic aortogram was obtained. The Glidewire was reintroduced and the pigtail catheter was exchanged for a long glide catheter. This was used to selectively catheterize the innominate right subclavian and right axillary arteries and a right upper extremity arteriogram was obtained. The Glidewire was reintroduced and then the glide catheter was exchanged for a VCF catheter and the Glidewire and VCF catheter were used to navigate down to the right common femoral artery and a right lower extremity arteriogram was obtained with the catheter in the right common femoral artery. The wire, catheter and sheath were removed and pressure was held for hemostasis. There were no complications. I was present and scrubbed and performed the entire procedure. INTERPRETATION IMAGES: The patient has a patent 3-vessel aortic arch without any hemodynamically significant stenoses. The innominate proximal subclavian, axillary, and brachial arteries are all widely patent down to the antecubital. In the distal forearm, there is significant calcific occlusive disease with a very diseased ulnar artery being dominant and a poorly opacifying palmar arch. On the right lower extremity, the common femoral artery and profunda are patent without any hemodynamically significant stenoses. The right superficial femoral and popliteal artery are similarly patent without any hemodynamically significant stenoses. The peroneal artery has a dominant runoff to the foot, but there is also a posterior tibial artery to the foot. There was only intrinsic distal tibial disease at the level of the foot. Randy Ortiz MD Medications and IVs Current Medications Miscellaneous Information ALL NURSING DEPARTME... UNSCH PRN .XX SEE LABEL COMMENTS; Start 01/17/18 at 14:30; Stop 01/18/18 at 14:29; Status Cancel Lactated Ringer's 1,000 ml @ 30 mls/hr Q24H PRN IV SEE LABEL COMMENTS; Start at 14:30; Stop 01/20/18 at 14:29; Status DC Sodium Chloride 500 ml @ 30 mls/hr [id number] PRN IV SEE LABEL COMMENTS Last administered on 01/17/18 14:15; Start 01/17/18 at 14:30; Stop 01/20/18 at 14:29; Status DC Metoprolol Tartrate (Lopressor) 25 mg WALKING DRAGLINE OPERATOR PRN PO SEE LABEL COMMENTS Last administered on 01/17/18at 15:00; Start 01/17/18 at 14:30; Stop 01/17/18 at 18:36; Status DC Povidone Iodine (Betadine 5% Antisepsis Kit) 1 applic WALKING DRAGLINE OPERATOR PRN EACH NARE SEE LABEL COMMENTS; Start 01/17/18 at 14:30; Stop 01/20/18 at 14:29; Status DC Chlorhexidine Gluconate (Chlorhexidine 2% Cloth) 3 pack WALKING DRAGLINE OPERATOR PRN TOPICAL SEE LABEL COMMENTS Last administered on 01/17/18 14:15; Start 01/17/18 at 14:30; Stop 01/20/18 at 14:29; Status DC Insulin Human Regular (NovoLIN R INJ) See Protocol Table ... WALKING DRAGLINE OPERATOR PRN SQ SEE PROTOCOL TABLE Last administered on 01/17/18 15:00; Start 01/17/18 at 14:30; Stop 01/17/18 at 18:35; Status DC Cefazolin Sodium (Ancef Inj) 2,000 mg STK-MED ONCE .ROUTE ; Start 01/17/18 at 16: 34; Stop 01/17/18 at 16:35; Status DC Thrombin (Thrombin Top [place]) 20,000 units STK-MED ONCE .ROUTE ; Start 01/17/18 at 16:34; Stop 01/17/18 at 16:35; Status DC Vancomycin HCl (Vancomycin Inj) 1,000 mg STK-MED ONCE .ROUTE Last administered on 01/17/18at 16:53; Start 01/17/18 at 16:47; Stop 01/17/18 at 16:48; Status DC Oxycodone HCl (Roxicodone) 5 mg Q4H PRN PO PAIN SCALE 1 TO 5 Last administered on 01/20/18at 20:58; Start 01/17/18 at 17:45 Hydromorphone HCl (Dilaudid) 2 mg Q4H PRN PO PAIN SCALE 6 TO 10 Last administered on 01/21/18 14:15; Start 01/17/18 at 17:45 Morphine Sulfate (Morphine Inj) 2 mg Q1H PRN IV BREAKTHROUGH PAIN Last administered on 01/22/18 12:44; Start 01/17/18 at 18:45 Heparin Sodium (Porcine) (Heparin Inj) 5,000 units Q8H SQ Last administered on 01/22/18 10:27; Start 01/18/18 at 17:00 Senna/Docusate Sodium ([place]-Colace) 1 tab BID PO Last administered on 10:25; Start 01/17/18 at 21:00 Sennosides (Senokot) 17.2 mg Q12H PRN PO Moderate constipation; Start 01/17/18 at 17:45 Bisacodyl (Dulcolax Supp) 10 mg DAILY PRN RECTAL SEVERE CONSITIPATION; Start at 17:45 Lactulose (Lactulose Liq) 30 ml DAILY PRN PO SEVERE CONSITIPATION; Start at 17:45 Amlodipine Besylate (Norvasc) 5 mg DAILY PO Last administered on 01/22/18 10: 25; Start 01/18/18 at 09:00 Aspirin (Aspirin Chew) 81 mg DAILY CHEW Last administered on 01/22/18 10:25; Start 01/18/18 at 09:00 Atorvastatin Calcium (Lipitor) 40 mg HS PO Last administered on 01/21/18 21:03 ; Start 01/17/18 at 21:00 Baclofen (Lioresal) 10 mg DAILY PRN PO hiccups Last administered on 01/21/18 14 :13; Start 01/17/18 at 17:45 Budesonide/ Formoterol Fumarate (Symbicort 160-4.5 Mcg Inh) 1 puff Q12HR INH Last administered on 01/22/18 10:27; Start 01/17/18 at 21:00 Cholecalciferol (Vitamin D3) 1,000 units DAILY PO Last administered on 10:25; Start 01/18/18 at 09:00 Duloxetine HCl (Cymbalta Dr) 30 mg DAILY PO Last administered on 01/22/18 10: 25; Start 01/18/18 at 09:00 Metoprolol Tartrate (Lopressor) 25 mg Q8HR PO Last administered on 01/22/18 12 :45; Start 01/17/18 at 22:00 Sevelamer Carbonate (Renvela) 2,400 mg TIDAC PO Last administered on 01/22/18 12:44; Start 01/18/18 at 08:00 Non-Formulary Medication 1 tab DAILY .ROUTE ; Start 01/18/18 at 09:00; Status UNV Insulin Human Regular 100 units/ Sodium Chloride 100 ml @ 0.5 mls/hr TITRATE PRN IV Blood Glucose Control Last administered on 01/17/18 18:19; Start 01/17/18 at 17:45; Stop 01/18/18 at 07:09; Status DC Dextrose (D50w (Vial) Inj) 50 ml UNSCH PRN IV PUSH SEE LABEL COMMENTS Last administered on 01/19/18at 21:10; Start 01/17/18 at 17:45 Miscellaneous Information 1 ONCE ONCE OTHER ; Start 01/17/18 at 17:45; Stop 01/17 at 18:34; Status DC Insulin Human Regular (NovoLIN R SUPPLEMENTAL SCALE) 10 STK-MED ONCE .ROUTE ; Start 01/17/18 at 17:43; Stop 01/17/18 at 17:44; Status DC Fentanyl Citrate (fentaNYL INJ) 200 mcg STK-MED ONCE .ROUTE ; Start 01/17/18 at 17:57; Stop 01/17/18 at 17:58; Status DC Morphine Sulfate (*morphine INJ PERIprocedure ONLY) 4 mg STK-MED ONCE .ROUTE Last administered on 01/17/18 18:06; Start 01/17/18 at 18:06; Stop 01/17/18 at 18: 07; Status DC Morphine Sulfate (*morphine INJ PERIprocedure ONLY) 8 mg STK-MED ONCE .ROUTE Last administered on 01/17/18 18:17; Start 01/17/18 at 18:17; Stop 01/17/18 at 18: 18; Status DC Enalaprilat (*VASOTEC INJ PERIprocedural Use ONLY) 1.25 mg STK-MED ONCE .ROUTE Last administered on 4/5/18at 18:21; Start 01/17/18 at 18:21; Stop 01/17/18 at 18: 22; Status DC Patient Own Medication PT OWN MED: DIALYVITE W/ [id number]... DAILY PO ; Start 01/18 at 09:00; Status Future Hold Metoprolol Tartrate (Lopressor Inj) 5 mg STK-MED ONCE .ROUTE Last administered on 01/17/18at 18:41; Start 01/17/18 at 18:41; Stop 01/17/18 at 18:42; Status DC Metoprolol Tartrate (Lopressor Inj) 5 mg STK-MED ONCE .ROUTE ; Start 01/17/18 at 18:42; Stop 01/17/18 at 18:43; Status DC Morphine Sulfate (*morphine INJ PERIprocedure ONLY) 4 mg STK-MED ONCE .ROUTE Last administered on 01/17/18at 18:43; Start 01/17/18 at 18:43; Stop 01/17/18 at 18: 44; Status DC Miscellaneous Information ALL NURSING DEPARTME... UNSCH PRN .XX SEE LABEL COMMENTS; Start 01/17/18 at 21:30; Stop 01/18/18 at 21:29; Status DC Insulin Aspart (NovoLOG INJ) 3 units TIDAC SQ Last administered on 01/21/18at 17: 00; Start 01/18/18 at 08:00 Insulin Detemir (Levemir Inj) 10 units Q12HR SQ Last administered on 01/18/18at 08:39; Start 01/18/18 at 09:00; Stop 01/19/18 at 12:23; Status DC Sodium Chloride 1,000 ml @ 0 mls/hr Q0M PRN OTHER For Prime & Rinse Back; Start 01/18/18 at 08:13 Heparin Sodium (Porcine) (Heparin Inj) 8,000 units UNSCH PRN IV FLUSH WITH DIALYSIS; Start 01/18/18 at 08:15 Sodium Chloride 1,000 ml @ 200 mls/hr Q5H PRN IV WITH DIALYSIS; Start 01/18/18 at 08:13 Sodium Chloride 1,000 ml @ 0 mls/hr Q0M PRN OTHER WITH DIALYSIS; Start 01/18/18 at 08:13 Mannitol (Mannitol Inj) 12.5 gm UNSCH PRN IV WITH DIALYSIS; Start 01/18/18 at 08 :15 Albumin Human 100 ml @ 60 mls/hr UNSCH PRN IV WITH DIALYSIS; Start 01/18/18 at 08:15 Sodium Chloride (NS Flush) 5 ml UNSCH PRN IV FLUSH WITH DIALYSIS Last administered on 01/19/18at 21:17; Start 01/18/18 at 08:15 Heparin Sodium (Porcine) (Heparin Inj) UNSCH PRN .XX WITH DIALYSIS; Start 01/18 at 08:15 Gentamicin Sulfate (Gentamicin Inj) 20 mg UNSCH PRN OTHER WITH DIALYSIS; Start 01/18/18 at 08:15 Ondansetron HCl (Zofran Inj) 4 mg UNSCH PRN IV PUSH WITH DIALYSIS Last administered on 01/18/18at 19:07; Start 01/18/18 at 08:15 Acetaminophen (Tylenol) 650 mg UNSCH PRN PO for headach, pain, temp > 101F; Start 01/18/18 at 08:15 Diphenhydramine HCl (Benadryl) 25 mg UNSCH PRN PO for hives/itching/anaphylaxis ; Start 01/18/18 at 08:15 Nitroglycerin (Nitrostat Sl) 0.4 mg UNSCH PRN SL CHEST PAIN; Start 01/18/18 at 08:15 Clonidine (Catapres) 0.1 mg UNSCH PRN PO for BP > 180/100 X 2 readings; Start 01/18/18 at 08:15 Epoetin Marco A (Epogen Inj) 4,000 units UNSCH PRN IV PUSH WITH DIALYSIS Last administered on 01/21/18at 10:48; Start 01/18/18 at 08:15 Gelatin (Gelfoam 12 Mm/7 Mm Top) 1 foam UNSCH PRN TOP SEE LABEL COMMENTS Last administered on 01/21/18at 10:48; Start 01/18/18 at 08:15 Hydromorphone HCl (Dilaudid Pf Inj) 1 mg Q4H PRN IV PUSH PAIN SCALE 8 TO 10 Last administered on 01/18/18at 17:57; Start 01/18/18 at 13:45 Glucagon (Glucagon Inj) 1 mg UNSCH PRN OTHER HYPOGLYCEMIA-SEE COMMENTS; Start 01/18/18 at 13:45 Dextrose 1,000 ml @ 40 mls/hr Q24H IV ; Start 01/18/18 at 15:30; Stop 01/18/18 at 15:46; Status DC Dextrose 1,000 ml @ 10 mls/hr Q24H IV Last administered on 01/18/18at 16:44; Start 01/18/18 at 15:45; Stop 01/19/18 at 10:09; Status DC Insulin Aspart (NovoLOG SUPPLEMENTAL SCALE) 1 ACHS SLIDING SCALE SQ Last administered on 01/20/18at 09:30; Start 01/19/18 at 12:00; Stop 01/20/18 at 12:03; Status DC Insulin Detemir (Levemir Inj) 5 units DAILY SQ Last administered on 01/22/18at 09:00; Start 01/19/18 at 13:00 Insulin Aspart (NovoLOG SUPPLEMENTAL SCALE) 1 ACHS SLIDING SCALE SQ Last administered on 01/20/18at 12:34; Start 01/20/18 at 17:00; Stop 01/21/18 at 06:54; Status DC Miscellaneous Medication ([facility]) 1Please discontinue previ... ONCE ONCE .XX Last administered on 01/20/18at 16:42; Start 01/20/18 at 16:45; Stop 01/20/18 at 16:47; Status DC Dextrose (D50w (Vial) Inj) 50 ml UNSCH PRN IV PUSH HYPOGLYCEMIA - SEE COMMENTS Last administered on 01/20/18at 20:48; Start 01/20/18 at 16:45 Glucagon (Glucagon Inj) 1 mg UNSCH PRN OTHER HYPOGLYCEMIA-SEE COMMENTS; Start 01/20/18 at 16:45 Insulin Aspart (NovoLOG SUPPLEMENTAL SCALE) 1 ACHS SLIDING SCALE SQ Last administered on 01/22/18at 08:00; Start 01/20/18 at 17:00 Sodium Chloride 250 ml @ As Directed STK-MED ONCE IV ; Start 01/17/18 at 12:00; Stop 01/21/18 at 09:05; Status DC Lidocaine HCl (Xylocaine-Mpf 1% Inj) 5 ml STK-MED ONCE OTHER ; Start 01/17/18 at 12:00; Stop 01/21/18 at 09:05; Status DC Rocuronium [place] (Zemuron Inj) 50 mg STK-MED ONCE IV PUSH ; Start 01/17/18 at 12:00; Stop 01/21/18 at 09:05; Status DC Neostigmine Methylsulfate (Prostigmine Inj) 5 mg STK-MED ONCE IV PUSH ; Start at 12:00; Stop 01/21/18 at 09:05; Status DC Glycopyrrolate (Robinul Inj) 1 mg STK-MED ONCE IV PUSH ; Start 01/17/18 at 12:00 ; Stop 01/21/18 at 09:05; Status DC Hydralazine HCl (Apresoline Inj) 20 mg STK-MED ONCE IV ; Start 01/17/18 at 12:00 ; Stop 01/21/18 at 09:05; Status DC Ondansetron HCl (Zofran Inj) 4 mg STK-MED ONCE IV ; Start 01/17/18 at 12:00; Stop 01/21/18 at 09:05; Status DC Propofol (Diprivan 200 Mg/20 ml Inj) 200 mg STK-MED ONCE IV ; Start 01/17/18 at 12:00; Stop 01/21/18 at 09:05; Status DC Labetalol HCl (Trandate Inj) 100 mg STK-MED ONCE IV ; Start 01/17/18 at 12:00; Stop 01/21/18 at 09:05; Status DC Dextrose 500 ml @ 15 mls/hr Q24H IV Last administered on 01/21/18at 09:30; Start 01/21/18 at 09:30; Stop 01/21/18 at 15:01; Status DC Dextrose 500 ml @ 15 mls/hr Q24H PRN IV FOR HYPOGLYCEMIA AND/OR NPO; Start 08/01 at 09:30 Heparin Sodium/ Sodium Chloride 1,000 ml @ As Directed STK-MED ONCE IV FLUSH Last administered on 01/21/18at 15:49; Start 01/21/18 at 15:49; Stop 01/21/18 at 15: 50; Status DC Midazolam HCl (Versed Inj) 2 mg STK-MED ONCE .ROUTE ; Start 01/21/18 at 15:49; Stop 01/21/18 at 15:50; Status DC Fentanyl Citrate (fentaNYL INJ) 100 mcg STK-MED ONCE .ROUTE ; Start 01/21/18 at 15:49; Stop 01/21/18 at 15:50; Status DC Heparin Sodium (Porcine) (Heparin Inj) 10,000 units STK-MED ONCE .ROUTE Last administered on 01/21/18at 16:10; Start 01/21/18 at 15:49; Stop 01/21/18 at 15:50; Status DC Lidocaine HCl (Xylocaine-Mpf 1% Inj) 30 ml STK-MED ONCE .ROUTE Last administered on 01/21/18at 16:04; Start 01/21/18 at 16:04; Stop 01/21/18 at 16:05; Status DC Sodium Polystyrene Sulfonate (Kayexalate Liq) 15 gm ONCE ONCE PO Last administered on 01/22/18at 12:31; Start 01/22/18 at 09:45; Stop 01/22/18 at 09:54 ; Status DC Insulin Human Regular (NovoLIN R INJ) 10 units ONCE ONCE IV PUSH Last administered on 01/22/18at 11:00; Start 01/22/18 at 11:00; Stop 01/22/18 at 11:05 ; Status DC Dextrose (D50w (Syr) Inj) 50 ml ONCE ONCE IV PUSH Last administered on at 12:31; Start 01/22/18 at 11:00; Stop 01/22/18 at 11:05; Status DC A/P Assessment and Plan 1. Left BKA POD #4, 01/20: Recommended to continue dressing on until Sunday, Plan for right leg and right arm angiography TODAY - ANGIOGRAPHY 4-9 - POSSIBLE SNF VS REHAB TOMORROW 2. ESRD on Hemodialysis Nephrology following. SUN-Sun 3. DM II recommended yesterday developed Hypoglycemia on low dosages of Levemir , sliding scale to Medium dose and try to keep blood sugar below 180 mg/dl. 4. Hypertension controlled to continue antihypertensives 5. Depression stable 6. Peripheral Neuropathy by history. 7. Peripheral Artery disease 8. COPD continue supplemental oxygen, Bronchodilator, Mucolytic and incentive spirometry DVT prophylaxis with Heparin DC TO SNF TOMORROW Discharge Planning HOPEFULLY TO SNF VS REHAB TOMORROW Carlin Pop DO Jan 22, 2018 15:48
[2018-01-22] MEDS ORDERED: LEVOTHYROXINE SODIUM 25 MCG TAB PO ONE (16:00)
[2018-01-22] MEDS: ATORVASTATIN 40 MG TAB PO SCH ×2 (21:00→21:29)
[2018-01-22] MEDS: HYDROmorphone HCL 2 MG TAB PO PRN (21:29)
--- NOTE | 2018-01-22 22:55 | HHI.PR ---
Subjective Remarks Patient seen bedside. Is repetitive with his words and his mood is somber. Discussed with nurse. Objective Vital Signs Date Time Temp Pulse Resp B/P (MAP) Pulse Ox O2 Delivery O2 Flow Rate FiO2 01/22/18 20:15 96 21 01/22/18 18:00 66 01/22/18 17:00 66 01/22/18 16:00 68 01/22/18 15:00 98.0 82 18 140/70 (93) 96 01/22/18 15:00 67 01/22/18 14:00 72 01/22/18 13:00 72 01/22/18 12:00 70 01/22/18 11:15 98.0 75 18 153/66 (95) 95 01/22/18 11:00 65 01/22/18 10:00 64 01/22/18 09:00 66 01/22/18 08:03 82 18 128/53 (78) 98 01/22/18 08:00 66 01/22/18 07:00 69 01/22/18 06:00 67 01/22/18 05:00 69 01/22/18 04:00 66 01/22/18 03:30 98.7 67 16 140/70 (93) 98 01/22/18 03:00 66 01/22/18 02:00 66 01/22/18 01:00 64 01/22/18 00:00 64 01/22/18 00:00 98.4 79 16 144/77 (99) 96 01/21/18 23:00 68 I/O 01/21/18 01/21/18 01/21/18 01/22/18 01/22/18 01/22/18 07:00 15:00 23:00 07:00 15:00 23:00 Intake Total 240 ml 240 ml 240 ml 740 ml Output Total 0 ml 2000 ml 0 ml 0 ml 0 ml Balance 240 ml -2000 ml 240 ml 240 ml 740 ml Intake Oral 240 ml 240 ml 240 ml 740 ml Output Urine Total 0 ml 0 ml 0 ml 0 ml Stool Total 0 ml Hemodialysis 2000 ml # Bowel Movements 0 0 Result Diagram: 01/22/18 0512 01/22/18 1421 Procedures Left BKA Other Results Microbiology Date/Time Source Procedure Growth Status 01/19/18 14:45 Wound Toe Gram Stain - Final Complete 01/19/18 14:45 Wound Culture - Final Alannah Parapsilosis Complete Objective Remarks Lower extremity physical exam: Vascular: Dorsalis pedis nonpalpable, posterior tibial nonpalpable. Capillary refill time within normal limits to digits 5 bilateral foot. Edema mildly present right foot, hallux. Neuro: Gross sensation intact to bilateral lower extremity. Pinpoint sensation decreased. No hyperalgesia noted to bilateral lower extremity Dermatology: Gangrene noted to right hallux at distal aspect, no fluctuance or drainage present. Musculoskeletal: Left below the knee amputation. No tenderness to palpation to right foot. Medications and IVs Current Medications Medications (Trade) Dose Ordered Sig/April Route Start Time Stop Time Status Last Admin (Roxicodone) 5 mg Q4H PRN PO 01/17/18 17:45 01/20/18 20:58 (Dilaudid) 2 mg Q4H PRN PO 01/17/18 17:45 01/22/18 21:29 (Morphine Inj) 2 mg Q1H PRN IV 01/17/18 18:45 01/22/18 12:44 (Heparin Inj) 5,000 units Q8H SQ 01/18/18 17:00 01/22/18 18:00 (Odette-Colace) 1 tab BID PO 01/17/18 21:00 01/22/18 10:25 (Senokot) 17.2 mg Q12H PRN PO 01/17/18 17:45 (Dulcolax Supp) 10 mg DAILY PRN RECTAL 01/17/18 17:45 (Lactulose Liq) 30 ml DAILY PRN PO 01/17/18 17:45 (Norvasc) 5 mg DAILY PO 01/18/18 09:00 01/22/18 10:25 (Aspirin Chew) 81 mg DAILY CHEW 01/18/18 09:00 01/22/18 10:25 (Lipitor) 40 mg HS PO 01/17/18 21:00 01/22/18 21:29 (Lioresal) 10 mg DAILY PRN PO 01/17/18 17:45 01/21/18 14:13 (Symbicort 160-4.5 Mcg Inh) 1 puff Q12HR INH 01/17/18 21:00 01/22/18 21:30 (Vitamin D3) 1,000 units DAILY PO 4/6/18 09:00 01/22/18 10:25 (Cymbalta Dr) 30 mg DAILY PO 01/18/18 09:00 01/22/18 10:25 (Lopressor) 25 mg Q8HR PO 01/17/18 22:00 01/22/18 21:30 (Renvela) 2,400 mg TIDAC PO 01/18/18 08:00 01/22/18 18:00 (D50w (Vial) Inj) 50 ml UNSCH PRN IV PUSH 01/17/18 17:45 01/19/18 21:10 Patient Own Medication PT OWN MED: DIALYVITE W/ [id number]... DAILY PO 01/18/18 09:00 Future Hold (NovoLOG INJ) 3 units TIDAC SQ 01/18/18 08:00 01/22/18 17:00 Sodium Chloride 1,000 ml @ 0 mls/hr Q0M PRN OTHER 01/18/18 08:13 (Heparin Inj) 8,000 units UNSCH PRN IV FLUSH 01/18/18 08:15 Sodium Chloride 1,000 ml @ 200 mls/hr Q5H PRN IV 01/18/18 08:13 Sodium Chloride 1,000 ml @ 0 mls/hr Q0M PRN OTHER 01/18/18 08:13 (Mannitol Inj) 12.5 gm UNSCH PRN IV 01/18/18 08:15 Albumin Human 100 ml @ 60 mls/hr UNSCH PRN IV 01/18/18 08:15 (NS Flush) 5 ml UNSCH PRN IV FLUSH 01/18/18 08:15 01/19/18 21:17 (Heparin Inj) UNSCH PRN .XX 01/18/18 08:15 (Gentamicin Inj) 20 mg UNSCH PRN OTHER 01/18/18 08:15 (Zofran Inj) 4 mg UNSCH PRN IV PUSH 01/18/18 08:15 01/18/18 19:07 (Tylenol) 650 mg UNSCH PRN PO 01/18/18 08:15 (Benadryl) 25 mg UNSCH PRN PO 01/18/18 08:15 (Nitrostat Sl) 0.4 mg UNSCH PRN SL 01/18/18 08:15 (Catapres) 0.1 mg UNSCH PRN PO 01/18/18 08:15 (Epogen Inj) 4,000 units UNSCH PRN IV PUSH 01/18/18 08:15 01/21/18 10:48 (Gelfoam 12 Mm/7 Mm Top) 1 foam UNSCH PRN TOP 01/18/18 08:15 01/21/18 10:48 (Dilaudid Pf Inj) 1 mg Q4H PRN IV PUSH 01/18/18 13:45 01/18/18 17:57 (Glucagon Inj) 1 mg UNSCH PRN OTHER 01/18/18 13:45 (Levemir Inj) 5 units DAILY SQ 01/19/18 13:00 01/22/18 09:00 (D50w (Vial) Inj) 50 ml UNSCH PRN IV PUSH 01/20/18 16:45 01/20/18 20:48 (Glucagon Inj) 1 mg UNSCH PRN OTHER 01/20/18 16:45 (NovoLOG SUPPLEMENTAL SCALE) 1 ACHS SLIDING SCALE SQ 01/20/18 17:00 01/22/18 08:00 Dextrose 500 ml @ 15 mls/hr Q24H PRN IV 01/22/18 09:30 (Synthroid) 25 mcg DAILY@0600 PO 01/23/18 06:00 Assessment and Plan Assessment and Plan 57 year old male s/p left BKA with right hallux OM Patient examined and evaluated Discussed possible surgical intervention to right hallux, right hallux amputation Will discuss with Dr. Ortiz with Vascular Surgery Patient states he is in agreement with plan for amputation of right hallux, he is concerned for failure of the amputation and need for more proximal amputation Ada Judge DPM Jan 22, 2018 22:55
[2018-01-23] VITALS (18 sets, daily range): BP systolic 129–158; BP diastolic 64–77; PULSE 65–106; RESP 16–18; TEMP 97.5–98.9; O2SAT 96–99
[2018-01-23] MEDS: MORPHINE SULFATE 2 MG/ML SYRINGE IV PRN ×2 (00:18→23:31)
[2018-01-23] MEDS: HEPARIN SODIUM - SQ 10,000 UNITS/ML VIAL SQ SCH ×3 (01:37→16:36)
[2018-01-23] MEDS: DEXTROSE 50% IN WATER 50 ML VIAL(D50) IV PUSH PRN (01:59)
[2018-01-23] MEDS: METOPROLOL TARTRATE 25 MG TAB PO SCH ×3 (06:37→23:23)
[2018-01-23] MEDS: LEVOTHYROXINE SODIUM 25 MCG TAB PO SCH (06:37)
[2018-01-23] MEDS: MEDIUM DOSE INSULIN NOVOLOG SUPPLEMENTAL SCALE SQ SCH ×4 (08:00→21:00)
[2018-01-23] MEDS: ASPIRIN 81 MG CHEW TAB CHEW SCH (10:18)
[2018-01-23] MEDS: amLODIPine BESYLATE 5 MG TAB PO SCH (10:18)
[2018-01-23] MEDS: DULoxetine HCl DR 30 MG CAP PO SCH (10:18)
[2018-01-23] MEDS: SODIUM CHLORIDE 0.9% FLUSH 10 ML FLUSH IV FLUSH PRN (10:18)
[2018-01-23] MEDS: DOCUSATE SODIUM 50 MG/SENNA 8.6 MG TAB PO SCH ×2 (10:18→21:00)
[2018-01-23] MEDS: CHOLECALCIFEROL (VIT D3) 1000 UNIT TAB PO SCH (10:19)
[2018-01-23] MEDS: INSULIN DETEMIR 100 UNITS/ML VIAL SQ SCH (10:20)
[2018-01-23] MEDS: BUDESONIDE-FORMOTEROL 160/4.5 MCG INHALER INH SCH ×2 (10:20→21:00)
[2018-01-23] MEDS: INSULIN ASPART 1,000 UNITS/10 ML VIAL SQ SCH ×3 (10:21→16:36)
[2018-01-23] MEDS: SEVELAMER CARBONATE 800 MG TAB PO SCH ×3 (10:24→16:35)
--- NOTE | 2018-01-23 11:15 | HHI.NPPN ---
Subjective General Problems: Anemia Renal Failure: Chronic, End Stage Renal Disease Interval History Seen in route to dialysis. Reportedly has refused amputation of right great toe per nurse. When asked about it he seems confused, then asks about the prognosis of the toes on left side. Explained about recent BKA. (Jasmyne Bee) Review of Systems General Constitutional: Fatigue (Jasmyne Bee) Objective Data Data Vital Signs Date Time Temp Pulse Resp B/P (MAP) Pulse Ox O2 Delivery O2 Flow Rate FiO2 01/23/18 06:00 65 01/23/18 05:00 66 01/23/18 04:00 98.8 86 18 129/77 (94) 96 01/23/18 04:00 66 01/23/18 03:00 66 01/23/18 02:00 70 01/23/18 01:00 72 01/23/18 00:00 70 01/23/18 00:00 97.5 69 16 158/77 (104) 99 01/22/18 23:00 68 01/22/18 22:00 66 01/22/18 21:00 68 01/22/18 20:15 96 21 01/22/18 20:00 97.9 67 18 144/68 (93) 98 01/22/18 20:00 68 01/22/18 19:00 66 01/22/18 18:00 66 01/22/18 17:00 66 01/22/18 16:00 68 01/22/18 15:00 98.0 82 18 140/70 (93) 96 01/22/18 15:00 67 01/22/18 14:00 72 01/22/18 13:00 72 01/22/18 12:00 70 01/22/18 11:15 98.0 75 18 153/66 (95) 95 (Jasmyne Bee) -: 01/22/18 0512 01/22/18 1421 Tubes & Lines Comment Ta catheter (Jasmyne Bee) Physical Exam General Appearance: Well Developed, Well Nourished, Comfortable (Jasmyne Bee) Eyes Eye Exam: Pupils Equal, Pupils Reactive (Jasmyne Bee) Neck Neck Exam: Neck Supple (Jasmyne Bee) Pulmonary Resp Exam: Clear Bilaterally, Breath Sounds Equal (Jasmyne Bee) Cardiology CV Exam: Regular, Normal Sinus Rhythm (Jasmyne Bee) Gastrointestinal/Abdomen GI Exam: Soft, Non-Tender, Bowel Sounds Present (Jasmyne Bee) Musculoskeletal MS Exam: Normal Tone, Unable to Ambulate MS Remarks s/p L BKA, brenda intact. (Jasmyne Bee) Integumentary Skin Exam: Warm, Dry, Intact (Jasmyne Bee) Extremeties Extremities Exam: Pedal Pulses Palpable Extremeties Remarks on right (Jasmyne Bee) Neurologic Neuro Exam: Alert, Awake, Oriented, Speech Clear, Moving All Extremities (Jasmyne Bee) Psychiatric Psych Exam: Appropriate Responses (Jasmyne Bee) Assessment/Plan Discussed Condition With: Patient Assessment Summary: Anemia of CKD, Hypertension, End Stage Renal Disease Problem List: (1) ESRD (end stage renal disease) ICD Codes: N18.6 - End-stage renal disease Status: Resolved Plan: HD MWF, due today Potassium has corrected. Patent AVF, protect Left upper ext Monitor labs intermittently Avoid IVF administration On sevelamer for metabolic bone disorder. Phosphorus is high but improving. (2) PAD (peripheral artery disease) ICD Codes: I73.9 - Peripheral vascular disease, unspecified Status: Chronic Plan: S/p L BKA, healing well. Angio of RUE and RLE, + occlusions, vascular and podiatry are following. apparently bypass is not an option given his anatomy. May need amputation of his right toe. Continue Wound care , cultures negative to date Pain control It is unclear if we can remove Ta catheter. Consider ID consultation to assist. (3) HTN (hypertension) ICD Codes: I10 - Essential (primary) hypertension Status: Chronic Plan: Continue current medications, titrate to effect Permanent Comment: Last Edited By: Jasmyne Bee on Jul 11, 2017 15:31 (4) DM (diabetes mellitus) ICD Codes: E11.9 - Type 2 diabetes mellitus without complications Status: Chronic Plan: Use D10 if hypoglycemic or NPO Maintain glucose 140-180 mg/dL Needs to eat regularly, he is a very brittle diabetic (5) Anemia ICD Codes: D64.9 - Anemia, unspecified Plan: Epogen per protocol. Plan The pt may be discharged to SNF. Cleared from renal standpoint. He then informs us that his daughter is coming to take him to [place] permanently. Have began to make HD arrangements for him out of state. (Jasmyne Bee) Plan patient was seen and examined this morning. He appeared confused. Dialysis today. It is unclear if his daughter is coming to take him to [place]. (Maurice Schultz MD) Jasmyne Bee Jan 23, 2018 11:15 Maurice Schultz MD Jan 23, 2018 21:45
[2018-01-23 11:40] LABS: AUTOMATED NEUTROPHIL # 7.4 TH/MM3 (1.8-7.7); BASOPHIL # 0.1 TH/MM3 (0-0.2); BASOPHIL % 1.1 % (0.0-2.0); EOSINOPHIL # 0.2 TH/MM3 (0-0.4); EOSINOPHIL % 1.8 % (0.0-4.0); HEMATOCRIT 30.5 % (39.0-51.0); HEMOGLOBIN 9.6 GM/DL (13.0-17.0); LYMPH % 10.8 % (9.0-44.0); LYMPHOCYTE # 1.1 TH/MM3 (1.0-4.8); MEAN CELL VOLUME 73.2 FL (80.0-100.0); MEAN CORPUSCULAR HEMOGLOBIN 22.9 PG (27.0-34.0); MEAN CORPUSCULAR HGB CONC 31.4 % (32.0-36.0); MEAN PLATELET VOLUME 9.6 FL (7.0-11.0); MONO % 10.9 % (0.0-8.0); MONOCYTE # 1.1 TH/MM3 (0-0.9); NEUT % 75.4 % (16.0-70.0); PLATELET COUNT 263 TH/MM3 (150-450); RED BLOOD COUNT 4.17 MIL/MM3 (4.50-5.90); RED CELL DISTRIBUTION WIDTH 22.5 % (11.6-17.2); WHITE BLOOD COUNT 9.8 TH/MM3 (4.0-11.0)
--- NOTE | 2018-01-23 11:44 | RADRPT ---
EXAM DATE/TIME: 01/23/2018 08:00 [facility] COMPARISON: CTA RUNOFF W 3D RECON, June 26, 2017, 17:31. [facility], US KIDNEY, BILATERAL, January 21, 2016 INDICATIONS : Elevated labs. MEDICAL HISTORY : Hypertension. Hypercholesterolemia. Chronic obstructive pulmonary disease. Seizures. Dizziness. Renal disease. Diabetes. Peripheral neuropathy. Heptitis. Osteomylitis. SURGICAL HISTORY : Renal dialysis. Shoulder surgery. Lt arm fistula. Lt toes amputation. ENCOUNTER: Initial ACUITY: 1 day PAIN SCORE: 0/10 LOCATION: Right upper quadrant MEASUREMENTS: LIVER: 17.2 cm length COMMON DUCT: Non-visualized RIGHT KIDNEY: 7.7 x 4.5 x 3.1 cm SPLEEN: 10.3 cm length FINDINGS: LIVER: Normal echotexture without focal lesion or ductal dilatation. Small amount of free fluid in the abdo men primarily along the margins of the liver and spleen. COMMON DUCT: Not visualized. GALLBLADDER: Small amount of layering sludge in the gallbladder with minimal gallbladder wall thickening measuring up to 4 mm. No pericholecystic fluid or sonographic Barrera sign. PANCREAS: The visualized portions are within normal limits. RIGHT KIDNEY: Small in size with diffuse increased cortical echogenicity. Several small anechoic cysts with the lar gest measuring 1 cm in the superior pole. No hydronephrosis or stone. SPLEEN: No focal lesion. CONCLUSION: 1. Gallbladder sludge with slightly prominent gallbladder wall. 2. Trace amount of ascites. 3. CBD is not visualized. 4. Small echogenic right kidney may reflect medical renal disease. Phani Vasquez MD on January 23, 2018 at 11:31 Board Certified Radiologist. This report was verified electronically.
[2018-01-23 12:39] LABS: ALBUMIN 2.2 GM/DL (3.4-5.0); BICARBONATE 25.2 MEQ/L (21.0-32.0); BLOOD UREA NITROGEN 81 MG/DL (7-18); CALCIUM 8.8 MG/DL (8.5-10.1); CHLORIDE 96 MEQ/L (98-107); GLOMERULAR FILTRATION RATE 6 ML/MIN (>89); GLUCOSE,RANDOM 190 MG/DL (74-106); MAGNESIUM 2.4 MG/DL (1.5-2.5); SODIUM (NA) 135 MEQ/L (136-145)
[2018-01-23 12:41] LABS: ALT (GPT) 841 U/L (12-78); PHOSPHORUS 6.9 MG/DL (2.5-4.9)
[2018-01-23 12:47] LABS: ALKALINE PHOSPHATASE 434 U/L (45-117); AST (GOT) 1125 U/L (15-37); TOTAL BILIRUBIN ADULT 0.8 MG/DL (0.2-1.0); TOTAL PROTEIN 7.1 GM/DL (6.4-8.2)
[2018-01-23] MEDS: EPOETIN ALFA 4,000 UNITS/ML VIAL IV PUSH PRN (13:29)
[2018-01-23] MEDS: GELATIN 12 MM/7 MM FOAM TOP PRN (13:30)
[2018-01-23 13:47] LABS: CREATININE 10.65 MG/DL (0.60-1.30)
--- NOTE | 2018-01-23 14:29 | HHI.PR ---
Subjective Remarks POD #6 57 yo AAM with PMH of ESRD on HD M/W/F, DM, PAD, HTN, COPD, tobacco abuse who failed revascularization Left LE and underwent left BKA under GETA by Dr. Ortiz, EBL 150cc. Tolerated procedure well, was extubated and transferred to PACU. He is on an insulin drip for uncontrolled DM postoperatively. Critical care was consulted for medical management, insulin drip. 4/: Blood sugar control adequate on insulin GTT, now hypoglycemic. Transition to pre-meal NovoLog and Levemir 10 units every 12 after starting ADA, renal diet. Nephrology for dialysis 01/19: hypoglycemia resolved. blood sugars again in 200s, but would be much more conservative with ramping up insulin given recent hypoglyemia. patient without complaints and wants to leave ICU. stable from my standpoint. Hospitalist Notes: 01/20: Recommended to continue dressing on until Sunday01/21/18, Plan for right leg and right arm angiography tomorrow. likely to rehab on Sunday. seen in his room no new issues, discussed with nurse, NO nausea, vomit or diarrhea, brittle blood sugar levels switch to Medium sliding scale to avoid complications but will try to keep blood sugar below 180 mg/Dl. 4-9 PATIENT SEEN IN HD TODAY, TO GO FOR ANGIOGRAM AFTER HD DW RN AND PT WAS NPO HEPLOCK D10 IF NO LONGER NPO DW RN AND PT AND CM POD #4 FOR LEFT BKA 4-10 POD #5 HAD ANGIOGRAM YESTERDAY DW RN AND PT AND CASE MANAGEMENT TO GO TO HD [place] [facility] [place] POD #5 FOR LEFT BKA MONITOR DIABETES 4-11 POD #6 FOR LEFT BKA TO HAVE SURGERY ON RIGHT GREAT TOE TOMORROW WITH PODIATRY MONITOR SUGARS SEEN IN HD OK FOR MED/SURG FLOOR TRANSFER COMPLAINS OF SOME PAIN LEFT LE Objective Vitals Vital Signs Date Time Temp Pulse Resp B/P (MAP) Pulse Ox O2 Delivery O2 Flow Rate FiO2 01/23/18 06:00 65 01/23/18 05:00 66 01/23/18 04:00 98.8 86 18 129/77 (94) 96 01/23/18 04:00 66 01/23/18 03:00 66 01/23/18 02:00 70 01/23/18 01:00 72 01/23/18 00:00 70 01/23/18 00:00 97.5 69 16 158/77 (104) 99 01/22/18 23:00 68 01/22/18 22:00 66 01/22/18 21:00 68 01/22/18 20:15 96 21 01/22/18 20:00 97.9 67 18 144/68 (93) 98 01/22/18 20:00 68 01/22/18 19:00 66 01/22/18 18:00 66 01/22/18 17:00 66 01/22/18 16:00 68 01/22/18 15:00 98.0 82 18 140/70 (93) 96 01/22/18 15:00 67 I/O 01/22/18 01/22/18 01/22/18 01/23/18 01/23/18 01/23/18 07:00 15:00 23:00 07:00 15:00 23:00 Intake Total 240 ml 740 ml 240 ml Output Total 0 ml 0 ml 0 ml 3000 ml Balance 240 ml 740 ml 240 ml -3000 ml Intake Oral 240 ml 740 ml 240 ml Output Urine Total 0 ml 0 ml 0 ml Stool Total 0 ml Hemodialysis 3000 ml # Bowel Movements 0 0 Result Diagram: 01/23/18 1045 01/23/18 1045 Other Results Laboratory Tests Test 01/22/18 05:12 01/22/18 14:21 01/23/18 10:45 White Blood Count 10.9 TH/MM3 9.8 TH/MM3 Red Blood Count 4.06 MIL/MM3 4.17 MIL/MM3 Hemoglobin 9.4 GM/DL 9.6 GM/DL Hematocrit 30.3 % 30.5 % Mean Corpuscular Volume 74.6 FL 73.2 FL Mean Corpuscular Hemoglobin 23.3 PG 22.9 PG Mean Corpuscular Hemoglobin Concent 31.2 % 31.4 % Red Cell Distribution Width 22.5 % 22.5 % Platelet Count 251 TH/MM3 263 TH/MM3 Mean Platelet Volume 9.7 FL 9.6 FL Neutrophils (%) (Auto) 75.3 % 75.4 % Lymphocytes (%) (Auto) 9.8 % 10.8 % Monocytes (%) (Auto) 13.2 % 10.9 % Eosinophils (%) (Auto) 1.0 % 1.8 % Basophils (%) (Auto) 0.7 % 1.1 % Neutrophils # (Auto) 8.2 TH/MM3 7.4 TH/MM3 Lymphocytes # (Auto) 1.1 TH/MM3 1.1 TH/MM3 Monocytes # (Auto) 1.4 TH/MM3 1.1 TH/MM3 Eosinophils # (Auto) 0.1 TH/MM3 0.2 TH/MM3 Basophils # (Auto) 0.1 TH/MM3 0.1 TH/MM3 CBC Comment DIFF FINAL DIFF FINAL Differential Comment Blood Urea Nitrogen 59 MG/DL 81 MG/DL Creatinine 8.93 MG/DL 10.65 MG/DL Random Glucose 172 MG/DL 190 MG/DL Total Protein 7.5 GM/DL 7.1 GM/DL Albumin 2.3 GM/DL 2.2 GM/DL Calcium Level 8.9 MG/DL 8.8 MG/DL Phosphorus Level 7.0 MG/DL 6.9 MG/DL Magnesium Level 2.3 MG/DL 2.4 MG/DL Alkaline Phosphatase 457 U/L 434 U/L Aspartate Amino Transf (AST/SGOT) 1743 U/L 1125 U/L Alanine Aminotransferase (ALT/SGPT) 812 U/L 841 U/L Total Bilirubin 1.1 MG/DL 0.8 MG/DL Sodium Level 136 MEQ/L 135 MEQ/L Potassium Level 5.6 MEQ/L 4.7 MEQ/L 5.1 MEQ/L Chloride Level 96 MEQ/L 96 MEQ/L Carbon Dioxide Level 25.4 MEQ/L 25.2 MEQ/L Anion Gap 15 MEQ/L 14 MEQ/L Estimat Glomerular Filtration Rate 7 ML/MIN 6 ML/MIN Free Thyroxine 1.06 NG/DL Thyroid Stimulating Hormone 3rd Gen 5.290 uIU/ML Imaging Last Impressions Liver Ultrasound 01/23/18 0000 Signed Impressions: Service Date/Time: Tuesday, January 23, 2018 08:00 - CONCLUSION: 1. Gallbladder sludge with slightly prominent gallbladder wall. 2. Trace amount of ascites. 3. CBD is not visualized. 4. Small echogenic right kidney may reflect medical renal disease. Phani Vasquez MD Objective Remarks GENERAL: Awake alert and oriented 3 talkative and cooperative very cooperative SKIN: Warm and dry. HEAD: Atraumatic. Normocephalic. EYES: Pupils equal and round. No scleral icterus. No injection or drainage. Extraocular muscles intact ENT: No nasal bleeding or discharge. Mucous membranes pink and moist. Tongue is midline NECK: Trachea midline. No JVD. Supple CARDIOVASCULAR: Regular rate and rhythm. S1-S2 no S3-S4 RESPIRATORY: No accessory muscle use. Clear to auscultation. Breath sounds equal bilaterally. GASTROINTESTINAL: Abdomen soft, non-tender, nondistended. Hepatic and splenic margins not palpable. MUSCULOSKELETAL: Extremities without clubbing, cyanosis, or edema. No obvious deformities. Left below the knee amputation with brenda in place clean dry and intact NEUROLOGICAL: Awake and alert. No obvious cranial nerve deficits. Motor grossly within normal limits. Five out of 5 muscle strength in the arms and legs. Normal speech. PSYCHIATRIC: Appropriate mood and affect; insight and judgment normal. Procedures 01/17/2018 PREOPERATIVE DIAGNOSIS: Left lower extremity nonhealing transmetatarsal amputation. POSTOPERATIVE DIAGNOSIS: Left lower extremity nonhealing transmetatarsal amputation. PROCEDURE PERFORMED: Left below-knee amputation. SURGEON: Randy Ortiz MD [employer] SURGEON: Eliu Eduardo MD ANESTHESIA: General. INDICATIONS: Mr. Aguilera is a 57-year-old gentleman with end-stage renal disease and diabetes as well as peripheral arterial disease who was taken to the operating room for a left below-knee amputation electively after a failed transmetatarsal amputation. DESCRIPTION OF PROCEDURE: Consent was obtained from the patient and he was taken to the operating room and placed supine on the operating table. An appropriate timeout was taken to ensure the patient's identity, operative site and the planned procedure. The administration of a gram of vancomycin was initiated prior to skin incision and will be discontinued after a single preoperative dose. Vancomycin was chosen because of the patient's end-stage renal disease. Everyone in the room agreed to the timeout and we proceeded. Left leg was prepped and draped. An incision was made a hand's breadth below the tibial tuberosity, carried down through subcutaneous tissue with electrocautery. The tibia was transected and the fibula was transected with an oscillating saw. A posterior flap was made with electrocautery and the leg was passed off the table as a specimen. The fibula was then resected up to 1 cm cephalad to the tibia transection. The anterior border of the tibia was bevelled and the edges were smoothed to avoid a pressure ulcer. The wound was irrigated and made hemostatic with electrocautery and suture and the wound was closed with 2-0 Polysorb and skin brenda. Sponge and needle counts were correct at the end of the case. I was present, scrubbed, and performed the entire procedure. 01/21/2018 PREOPERATIVE DIAGNOSES: 1. Right upper extremity digital gangrene. 2. Right lower extremity diabetic foot ulcer, peripheral arterial occlusive disease. POSTOPERATIVE DIAGNOSIS: 1. Right upper extremity digital gangrene. 2. Right lower extremity diabetic foot ulcer, peripheral arterial occlusive disease. PROCEDURE PERFORMED: 1. Thoracic aortogram with right extremity angiogram. 2. Right lower extremity angiogram. ATTENDING SURGEON: Randy Ortiz MD. ANESTHESIA: Local with sedation. INDICATIONS FOR PROCEDURE: Mr. Aguilera is a 57-year-old gentleman with diabetes and end-stage renal disease. He has right upper extremity tissue loss and right lower extremity tissue loss and is taken to the operating room for angiographic evaluation and treatment. There was no prior catheter-based imaging of the right upper extremity, nor catheter-based imaging of the right lower extremity since the recurrence of his tissue loss. He is taken to the operating room for this. DESCRIPTION OF PROCEDURE: Informed consent was obtained from the patient. He was taken to the operating room and placed supine on the operating table. An appropriate time-out was taken to ensure the patient's identity, operative site and planned procedure. The administration of antibiotics was not necessary as this is a clean procedure without planned implantation of any foreign objects. Everyone in the room agreed with the time-out and we proceeded. His left groin was prepped and draped and locally anesthetized. A 21-gauge micropuncture needle was used to access the left common femoral artery. This was exchanged using Seldinger technique for the micropuncture sheath, through which was 0.025 Glidewire was introduced and the micropuncture sheath was exchanged for a 5-Turkmen sheath. The patient was systemically heparinized with 3000 units of IV heparin. The Glidewire was advanced to the ascending aorta and a pigtail catheter was advanced over this. A thoracic aortogram was obtained. The Glidewire was reintroduced and the pigtail catheter was exchanged for a long glide catheter. This was used to selectively catheterize the innominate right subclavian and right axillary arteries and a right upper extremity arteriogram was obtained. The Glidewire was reintroduced and then the glide catheter was exchanged for a VCF catheter and the Glidewire and VCF catheter were used to navigate down to the right common femoral artery and a right lower extremity arteriogram was obtained with the catheter in the right common femoral artery. The wire, catheter and sheath were removed and pressure was held for hemostasis. There were no complications. I was present and scrubbed and performed the entire procedure. INTERPRETATION IMAGES: The patient has a patent 3-vessel aortic arch without any hemodynamically significant stenoses. The innominate proximal subclavian, axillary, and brachial arteries are all widely patent down to the antecubital. In the distal forearm, there is significant calcific occlusive disease with a very diseased ulnar artery being dominant and a poorly opacifying palmar arch. On the right lower extremity, the common femoral artery and profunda are patent without any hemodynamically significant stenoses. The right superficial femoral and popliteal artery are similarly patent without any hemodynamically significant stenoses. The peroneal artery has a dominant runoff to the foot, but there is also a posterior tibial artery to the foot. There was only intrinsic distal tibial disease at the level of the foot. Randy Ortiz MD Medications and IVs Current Medications Miscellaneous Information ALL NURSING DEPARTME... UNSCH PRN .XX SEE LABEL COMMENTS; Start 01/17/18 at 14:30; Stop 01/18/18 at 14:29; Status Cancel Lactated Ringer's 1,000 ml @ 30 mls/hr Q24H PRN IV SEE LABEL COMMENTS; Start at 14:30; Stop 01/20/18 at 14:29; Status DC Sodium Chloride 500 ml @ 30 mls/hr [id number] PRN IV SEE LABEL COMMENTS Last administered on 01/17/18at 14:15; Start 01/17/18 at 14:30; Stop 01/20/18 at 14:29; Status DC Metoprolol Tartrate (Lopressor) 25 mg COLLEGE TEACHER PRN PO SEE LABEL COMMENTS Last administered on 01/17/18at 15:00; Start 01/17/18 at 14:30; Stop 01/17/18 at 18:36; Status DC Povidone Iodine (Betadine 5% Antisepsis Kit) 1 applic COLLEGE TEACHER PRN EACH NARE SEE LABEL COMMENTS; Start 01/17/18 at 14:30; Stop 01/20/18 at 14:29; Status DC Chlorhexidine Gluconate (Chlorhexidine 2% Cloth) 3 pack COLLEGE TEACHER PRN TOPICAL SEE LABEL COMMENTS Last administered on 01/17/18at 14:15; Start 01/17/18 at 14:30; Stop 01/20/18 at 14:29; Status DC Insulin Human Regular (NovoLIN R INJ) See Protocol Table ... COLLEGE TEACHER PRN SQ SEE PROTOCOL TABLE Last administered on 01/17/18at 15:00; Start 01/17/18 at 14:30; Stop 01/17/18 at 18:35; Status DC Cefazolin Sodium (Ancef Inj) 2,000 mg STK-MED ONCE .ROUTE ; Start 01/17/18 at 16: 34; Stop 01/17/18 at 16:35; Status DC Thrombin (Thrombin Top [place]) 20,000 units STK-MED ONCE .ROUTE ; Start 01/17/18 at 16:34; Stop 01/17/18 at 16:35; Status DC Vancomycin HCl (Vancomycin Inj) 1,000 mg STK-MED ONCE .ROUTE Last administered on 01/17/18at 16:53; Start 01/17/18 at 16:47; Stop 01/17/18 at 16:48; Status DC Oxycodone HCl (Roxicodone) 5 mg Q4H PRN PO PAIN SCALE 1 TO 5 Last administered on 01/20/18at 20:58; Start 01/17/18 at 17:45 Hydromorphone HCl (Dilaudid) 2 mg Q4H PRN PO PAIN SCALE 6 TO 10 Last administered on 01/22/18at 21:29; Start 01/17/18 at 17:45 Morphine Sulfate (Morphine Inj) 2 mg Q1H PRN IV BREAKTHROUGH PAIN Last administered on 01/23/18 00:18; Start 01/17/18 at 18:45 Heparin Sodium (Porcine) (Heparin Inj) 5,000 units Q8H SQ Last administered on 01/23/18 10:19; Start 01/18/18 at 17:00 Senna/Docusate Sodium ([place]-Colace) 1 tab BID PO Last administered on 4/11/ 18at 10:18; Start 01/17/18 at 21:00 Sennosides (Senokot) 17.2 mg Q12H PRN PO Moderate constipation; Start 01/17/18 at 17:45 Bisacodyl (Dulcolax Supp) 10 mg DAILY PRN RECTAL SEVERE CONSITIPATION; Start at 17:45 Lactulose (Lactulose Liq) 30 ml DAILY PRN PO SEVERE CONSITIPATION; Start at 17:45 Amlodipine Besylate (Norvasc) 5 mg DAILY PO Last administered on 01/23/18 10: 18; Start 01/18/18 at 09:00 Aspirin (Aspirin Chew) 81 mg DAILY CHEW Last administered on 01/23/18 10:18; Start 01/18/18 at 09:00 Atorvastatin Calcium (Lipitor) 40 mg HS PO Last administered on 01/21/18 21:03 ; Start 01/17/18 at 21:00 Baclofen (Lioresal) 10 mg DAILY PRN PO hiccups Last administered on 01/21/18 14 :13; Start 01/17/18 at 17:45 Budesonide/ Formoterol Fumarate (Symbicort 160-4.5 Mcg Inh) 1 puff Q12HR INH Last administered on 01/23/18 10:20; Start 01/17/18 at 21:00 Cholecalciferol (Vitamin D3) 1,000 units DAILY PO Last administered on 10:19; Start 01/18/18 at 09:00 Duloxetine HCl (Cymbalta Dr) 30 mg DAILY PO Last administered on 01/23/18 10: 18; Start 01/18/18 at 09:00 Metoprolol Tartrate (Lopressor) 25 mg Q8HR PO Last administered on 01/23/18 06 :37; Start 01/17/18 at 22:00 Sevelamer Carbonate (Renvela) 2,400 mg TIDAC PO Last administered on 01/23/18 10:24; Start 01/18/18 at 08:00 Non-Formulary Medication 1 tab DAILY .ROUTE ; Start 01/18/18 at 09:00; Status UNV Insulin Human Regular 100 units/ Sodium Chloride 100 ml @ 0.5 mls/hr TITRATE PRN IV Blood Glucose Control Last administered on 01/17/18 18:19; Start 01/17/18 at 17:45; Stop 01/18/18 at 07:09; Status DC Dextrose (D50w (Vial) Inj) 50 ml UNSCH PRN IV PUSH SEE LABEL COMMENTS Last administered on 01/19/18at 21:10; Start 01/17/18 at 17:45 Miscellaneous Information 1 ONCE ONCE OTHER ; Start 01/17/18 at 17:45; Stop 01/17 at 18:34; Status DC Insulin Human Regular (NovoLIN R SUPPLEMENTAL SCALE) 10 STK-MED ONCE .ROUTE ; Start 01/17/18 at 17:43; Stop 01/17/18 at 17:44; Status DC Fentanyl Citrate (fentaNYL INJ) 200 mcg STK-MED ONCE .ROUTE ; Start 01/17/18 at 17:57; Stop 01/17/18 at 17:58; Status DC Morphine Sulfate (*morphine INJ PERIprocedure ONLY) 4 mg STK-MED ONCE .ROUTE Last administered on 01/17/18 18:06; Start 01/17/18 at 18:06; Stop 01/17/18 at 18: 07; Status DC Morphine Sulfate (*morphine INJ PERIprocedure ONLY) 8 mg STK-MED ONCE .ROUTE Last administered on 01/17/18 18:17; Start 01/17/18 at 18:17; Stop 01/17/18 at 18: 18; Status DC Enalaprilat (*VASOTEC INJ PERIprocedural Use ONLY) 1.25 mg STK-MED ONCE .ROUTE Last administered on 01/17/18at 18:21; Start 01/17/18 at 18:21; Stop 01/17/18 at 18: 22; Status DC Patient Own Medication PT OWN MED: DIALYVITE W/ [id number]... DAILY PO ; Start 01/18 at 09:00; Status Future Hold Metoprolol Tartrate (Lopressor Inj) 5 mg STK-MED ONCE .ROUTE Last administered on 01/17/18at 18:41; Start 01/17/18 at 18:41; Stop 01/17/18 at 18:42; Status DC Metoprolol Tartrate (Lopressor Inj) 5 mg STK-MED ONCE .ROUTE ; Start 01/17/18 at 18:42; Stop 01/17/18 at 18:43; Status DC Morphine Sulfate (*morphine INJ PERIprocedure ONLY) 4 mg STK-MED ONCE .ROUTE Last administered on 01/17/18at 18:43; Start 01/17/18 at 18:43; Stop 01/17/18 at 18: 44; Status DC Miscellaneous Information ALL NURSING DEPARTME... UNSCH PRN .XX SEE LABEL COMMENTS; Start 01/17/18 at 21:30; Stop 01/18/18 at 21:29; Status DC Insulin Aspart (NovoLOG INJ) 3 units TIDAC SQ Last administered on 01/23/18at 10 :21; Start 01/18/18 at 08:00 Insulin Detemir (Levemir Inj) 10 units Q12HR SQ Last administered on 01/18/18at 08:39; Start 01/18/18 at 09:00; Stop 01/19/18 at 12:23; Status DC Sodium Chloride 1,000 ml @ 0 mls/hr Q0M PRN OTHER For Prime & Rinse Back; Start 01/18/18 at 08:13 Heparin Sodium (Porcine) (Heparin Inj) 8,000 units UNSCH PRN IV FLUSH WITH DIALYSIS; Start 01/18/18 at 08:15 Sodium Chloride 1,000 ml @ 200 mls/hr Q5H PRN IV WITH DIALYSIS; Start 01/18/18 at 08:13 Sodium Chloride 1,000 ml @ 0 mls/hr Q0M PRN OTHER WITH DIALYSIS; Start 01/18/18 at 08:13 Mannitol (Mannitol Inj) 12.5 gm UNSCH PRN IV WITH DIALYSIS; Start 01/18/18 at 08 :15 Albumin Human 100 ml @ 60 mls/hr UNSCH PRN IV WITH DIALYSIS; Start 01/18/18 at 08:15 Sodium Chloride (NS Flush) 5 ml UNSCH PRN IV FLUSH WITH DIALYSIS Last administered on 01/23/18at 10:18; Start 01/18/18 at 08:15 Heparin Sodium (Porcine) (Heparin Inj) UNSCH PRN .XX WITH DIALYSIS; Start 01/18 at 08:15 Gentamicin Sulfate (Gentamicin Inj) 20 mg UNSCH PRN OTHER WITH DIALYSIS; Start 01/18/18 at 08:15 Ondansetron HCl (Zofran Inj) 4 mg UNSCH PRN IV PUSH WITH DIALYSIS Last administered on 01/18/18 19:07; Start 01/18/18 at 08:15 Acetaminophen (Tylenol) 650 mg UNSCH PRN PO for headach, pain, temp > 101F; Start 01/18/18 at 08:15 Diphenhydramine HCl (Benadryl) 25 mg UNSCH PRN PO for hives/itching/anaphylaxis ; Start 01/18/18 at 08:15 Nitroglycerin (Nitrostat Sl) 0.4 mg UNSCH PRN SL CHEST PAIN; Start 01/18/18 at 08:15 Clonidine (Catapres) 0.1 mg UNSCH PRN PO for BP > 180/100 X 2 readings; Start 01/18/18 at 08:15 Epoetin Marco A (Epogen Inj) 4,000 units UNSCH PRN IV PUSH WITH DIALYSIS Last administered on 01/23/18at 13:29; Start 01/18/18 at 08:15 Gelatin (Gelfoam 12 Mm/7 Mm Top) 1 foam UNSCH PRN TOP SEE LABEL COMMENTS Last administered on 01/23/18at 13:30; Start 01/18/18 at 08:15 Hydromorphone HCl (Dilaudid Pf Inj) 1 mg Q4H PRN IV PUSH PAIN SCALE 8 TO 10 Last administered on 01/18/18 17:57; Start 01/18/18 at 13:45 Glucagon (Glucagon Inj) 1 mg UNSCH PRN OTHER HYPOGLYCEMIA-SEE COMMENTS; Start 01/18/18 at 13:45 Dextrose 1,000 ml @ 40 mls/hr Q24H IV ; Start 01/18/18 at 15:30; Stop 01/18/18 at 15:46; Status DC Dextrose 1,000 ml @ 10 mls/hr Q24H IV Last administered on 01/18/18at 16:44; Start 01/18/18 at 15:45; Stop 01/19/18 at 10:09; Status DC Insulin Aspart (NovoLOG SUPPLEMENTAL SCALE) 1 ACHS SLIDING SCALE SQ Last administered on 01/20/18 09:30; Start 01/19/18 at 12:00; Stop 01/20/18 at 12:03; Status DC Insulin Detemir (Levemir Inj) 5 units DAILY SQ Last administered on 4/11/18at 10:20; Start 01/19/18 at 13:00 Insulin Aspart (NovoLOG SUPPLEMENTAL SCALE) 1 ACHS SLIDING SCALE SQ Last administered on 01/20/18at 12:34; Start 01/20/18 at 17:00; Stop 01/21/18 at 06:54; Status DC Miscellaneous Medication ([facility] Information) 1Please discontinue previ... ONCE ONCE .XX Last administered on 01/20/18at 16:42; Start 01/20/18 at 16:45; Stop 01/20/18 at 16:47; Status DC Dextrose (D50w (Vial) Inj) 50 ml UNSCH PRN IV PUSH HYPOGLYCEMIA - SEE COMMENTS Last administered on 01/23/18at 01:59; Start 01/20/18 at 16:45 Glucagon (Glucagon Inj) 1 mg UNSCH PRN OTHER HYPOGLYCEMIA-SEE COMMENTS; Start 01/20/18 at 16:45 Insulin Aspart (NovoLOG SUPPLEMENTAL SCALE) 1 ACHS SLIDING SCALE SQ Last administered on 01/22/18at 08:00; Start 01/20/18 at 17:00 Sodium Chloride 250 ml @ As Directed STK-MED ONCE IV ; Start 01/17/18 at 12:00; Stop 01/21/18 at 09:05; Status DC Lidocaine HCl (Xylocaine-Mpf 1% Inj) 5 ml STK-MED ONCE OTHER ; Start 01/17/18 at 12:00; Stop 01/21/18 at 09:05; Status DC Rocuronium [place] (Zemuron Inj) 50 mg STK-MED ONCE IV PUSH ; Start 01/17/18 at 12:00; Stop 01/21/18 at 09:05; Status DC Neostigmine Methylsulfate (Prostigmine Inj) 5 mg STK-MED ONCE IV PUSH ; Start at 12:00; Stop 01/21/18 at 09:05; Status DC Glycopyrrolate (Robinul Inj) 1 mg STK-MED ONCE IV PUSH ; Start 01/17/18 at 12:00 ; Stop 01/21/18 at 09:05; Status DC Hydralazine HCl (Apresoline Inj) 20 mg STK-MED ONCE IV ; Start 01/17/18 at 12:00 ; Stop 01/21/18 at 09:05; Status DC Ondansetron HCl (Zofran Inj) 4 mg STK-MED ONCE IV ; Start 01/17/18 at 12:00; Stop 01/21/18 at 09:05; Status DC Propofol (Diprivan 200 Mg/20 ml Inj) 200 mg STK-MED ONCE IV ; Start 01/17/18 at 12:00; Stop 01/21/18 at 09:05; Status DC Labetalol HCl (Trandate Inj) 100 mg STK-MED ONCE IV ; Start 01/17/18 at 12:00; Stop 01/21/18 at 09:05; Status DC Dextrose 500 ml @ 15 mls/hr Q24H IV Last administered on 01/21/18at 09:30; Start 01/21/18 at 09:30; Stop 01/21/18 at 15:01; Status DC Dextrose 500 ml @ 15 mls/hr Q24H PRN IV FOR HYPOGLYCEMIA AND/OR NPO Last administered on 01/23/18at 05:18; Start 01/22/18 at 09:30 Heparin Sodium/ Sodium Chloride 1,000 ml @ As Directed STK-MED ONCE IV FLUSH Last administered on 01/21/18at 15:49; Start 01/21/18 at 15:49; Stop 01/21/18 at 15: 50; Status DC Midazolam HCl (Versed Inj) 2 mg STK-MED ONCE .ROUTE ; Start 01/21/18 at 15:49; Stop 01/21/18 at 15:50; Status DC Fentanyl Citrate (fentaNYL INJ) 100 mcg STK-MED ONCE .ROUTE ; Start 01/21/18 at 15:49; Stop 01/21/18 at 15:50; Status DC Heparin Sodium (Porcine) (Heparin Inj) 10,000 units STK-MED ONCE .ROUTE Last administered on 01/21/18at 16:10; Start 01/21/18 at 15:49; Stop 01/21/18 at 15:50; Status DC Lidocaine HCl (Xylocaine-Mpf 1% Inj) 30 ml STK-MED ONCE .ROUTE Last administered on 01/21/18at 16:04; Start 01/21/18 at 16:04; Stop 01/21/18 at 16:05; Status DC Sodium Polystyrene Sulfonate (Kayexalate Liq) 15 gm ONCE ONCE PO Last administered on 01/22/18at 12:31; Start 01/22/18 at 09:45; Stop 01/22/18 at 09:54 ; Status DC Insulin Human Regular (NovoLIN R INJ) 10 units ONCE ONCE IV PUSH Last administered on 01/22/18at 11:00; Start 01/22/18 at 11:00; Stop 01/22/18 at 11:05 ; Status DC Dextrose (D50w (Syr) Inj) 50 ml ONCE ONCE IV PUSH Last administered on at 12:31; Start 01/22/18 at 11:00; Stop 01/22/18 at 11:05; Status DC Levothyroxine Sodium (Synthroid) 25 mcg ONCE ONCE PO Last administered on 01/22at 18:01; Start 01/22/18 at 16:00; Stop 01/22/18 at 16:01; Status DC Levothyroxine Sodium (Synthroid) 25 mcg DAILY@0600 PO Last administered on 01/23at 06:37; Start 01/23/18 at 06:00 A/P Assessment and Plan 1. Left BKA POD #6, 01/20: Recommended to continue dressing on until Sunday, Plan for right leg and right arm angiography WAS DOEN - ANGIOGRAPHY 4-9 - POSSIBLE SURGERY ON RIGHT GREAT TOE TOMORROW 2. ESRD on Hemodialysis Nephrology following. SUN-Sun 3. DM II recommended yesterday developed Hypoglycemia on low dosages of Levemir , sliding scale to Medium dose and try to keep blood sugar below 180 mg/dl. 4. Hypertension controlled to continue antihypertensives 5. Depression stable 6. Peripheral Neuropathy by history. 7. Peripheral Artery disease 8. COPD continue supplemental oxygen, Bronchodilator, Mucolytic and incentive spirometry POSSIBLE RIGHT GREAT TOE SURGERY THEN SNF IN FUTURE DVT prophylaxis with Heparin DC TO SNF SOON Discharge Planning HOPEFULLY TO SNF VS REHAB SOON AFTER PODIATRY CLEARANCE Carlin Pop DO Jan 23, 2018 14:29
[2018-01-23 18:32] LABS: HEMOGLOBIN A1C 10.9 % (4.3-6.0)
[2018-01-23] MEDS: ATORVASTATIN 40 MG TAB PO SCH (21:00)
--- NOTE | 2018-01-23 22:55 | HHI.PR ---
Objective Vital Signs Date Time Temp Pulse Resp B/P (MAP) Pulse Ox O2 Delivery O2 Flow Rate FiO2 01/23/18 20:16 98 21 01/23/18 16:00 98.0 69 17 146/69 (94) 97 01/23/18 15:00 75 01/23/18 08:00 97.9 68 18 144/68 (93) 99 01/23/18 07:00 66 01/23/18 06:00 65 01/23/18 05:00 66 01/23/18 04:00 98.8 86 18 129/77 (94) 96 01/23/18 04:00 66 01/23/18 03:00 66 01/23/18 02:00 70 01/23/18 01:00 72 01/23/18 00:00 70 01/23/18 00:00 97.5 69 16 158/77 (104) 99 01/22/18 23:00 68 I/O 01/22/18 01/22/18 01/22/18 01/23/18 01/23/18 01/23/18 07:00 15:00 23:00 07:00 15:00 23:00 Intake Total 240 ml 740 ml 240 ml 480 ml Output Total 0 ml 0 ml 0 ml 3000 ml Balance 240 ml 740 ml 240 ml -3000 ml 480 ml Intake Oral 240 ml 740 ml 240 ml 480 ml Output Urine Total 0 ml 0 ml 0 ml Stool Total 0 ml Hemodialysis 3000 ml # Bowel Movements 0 0 1 Result Diagram: 01/23/18 1045 01/23/18 1045 Procedures Left BKA Objective Remarks Lower extremity physical exam 01/23: Vascular: Dorsalis pedis nonpalpable, posterior tibial nonpalpable. Capillary refill time within normal limits to digits 5 bilateral foot. Edema mildly present right foot, hallux. Neuro: Gross sensation intact to bilateral lower extremity. Pinpoint sensation decreased. No hyperalgesia noted to bilateral lower extremity Dermatology: Gangrene noted to right hallux at distal aspect, no fluctuance or drainage present. Musculoskeletal: Left below the knee amputation. No tenderness to palpation to right foot. Medications and IVs Current Medications Medications (Trade) Dose Ordered Sig/April Route Start Time Stop Time Status Last Admin (Roxicodone) 5 mg Q4H PRN PO 01/17/18 17:45 01/23/18 21:23 (Dilaudid) 2 mg Q4H PRN PO 01/17/18 17:45 01/22/18 21:29 (Morphine Inj) 2 mg Q1H PRN IV 01/17/18 18:45 01/23/18 00:18 (Heparin Inj) 5,000 units Q8H SQ 01/18/18 17:00 01/23/18 16:36 (Odette-Colace) 1 tab BID PO 01/17/18 21:00 01/23/18 10:18 (Senokot) 17.2 mg Q12H PRN PO 01/17/18 17:45 (Dulcolax Supp) 10 mg DAILY PRN RECTAL 01/17/18 17:45 (Lactulose Liq) 30 ml DAILY PRN PO 01/17/18 17:45 (Norvasc) 5 mg DAILY PO 01/18/18 09:00 01/23/18 10:18 (Aspirin Chew) 81 mg DAILY CHEW 01/18/18 09:00 01/23/18 10:18 (Lipitor) 40 mg HS PO 01/17/18 21:00 01/21/18 21:03 (Lioresal) 10 mg DAILY PRN PO 01/17/18 17:45 01/21/18 14:13 (Symbicort 160-4.5 Mcg Inh) 1 puff Q12HR INH 01/17/18 21:00 01/23/18 10:20 (Vitamin D3) 1,000 units DAILY PO 01/18/18 09:00 01/23/18 10:19 (Cymbalta Dr) 30 mg DAILY PO 01/18/18 09:00 01/23/18 10:18 (Lopressor) 25 mg Q8HR PO 01/17/18 22:00 01/23/18 16:35 (Renvela) 2,400 mg TIDAC PO 01/18/18 08:00 01/23/18 16:35 (D50w (Vial) Inj) 50 ml UNSCH PRN IV PUSH 01/17/18 17:45 01/19/18 21:10 Patient Own Medication PT OWN MED: DIALYVITE W/ [id number]... DAILY PO 01/18/18 09:00 Future Hold (NovoLOG INJ) 3 units TIDAC SQ 01/18/18 08:00 01/23/18 16:36 Sodium Chloride 1,000 ml @ 0 mls/hr Q0M PRN OTHER 01/18/18 08:13 (Heparin Inj) 8,000 units UNSCH PRN IV FLUSH 01/18/18 08:15 Sodium Chloride 1,000 ml @ 200 mls/hr Q5H PRN IV 01/18/18 08:13 Sodium Chloride 1,000 ml @ 0 mls/hr Q0M PRN OTHER 01/18/18 08:13 (Mannitol Inj) 12.5 gm UNSCH PRN IV 01/18/18 08:15 Albumin Human 100 ml @ 60 mls/hr UNSCH PRN IV 01/18/18 08:15 (NS Flush) 5 ml UNSCH PRN IV FLUSH 01/18/18 08:15 01/23/18 10:18 (Heparin Inj) UNSCH PRN .XX 01/18/18 08:15 (Gentamicin Inj) 20 mg UNSCH PRN OTHER 01/18/18 08:15 (Zofran Inj) 4 mg UNSCH PRN IV PUSH 01/18/18 08:15 01/18/18 19:07 (Tylenol) 650 mg UNSCH PRN PO 01/18/18 08:15 (Benadryl) 25 mg UNSCH PRN PO 01/18/18 08:15 (Nitrostat Sl) 0.4 mg UNSCH PRN SL 01/18/18 08:15 (Catapres) 0.1 mg UNSCH PRN PO 01/18/18 08:15 (Epogen Inj) 4,000 units UNSCH PRN IV PUSH 01/18/18 08:15 01/23/18 13:29 (Gelfoam 12 Mm/7 Mm Top) 1 foam UNSCH PRN TOP 01/18/18 08:15 01/23/18 13:30 (Dilaudid Pf Inj) 1 mg Q4H PRN IV PUSH 01/18/18 13:45 01/18/18 17:57 (Glucagon Inj) 1 mg UNSCH PRN OTHER 01/18/18 13:45 (Levemir Inj) 5 units DAILY SQ 01/19/18 13:00 01/23/18 10:20 (D50w (Vial) Inj) 50 ml UNSCH PRN IV PUSH 01/20/18 16:45 01/23/18 01:59 (Glucagon Inj) 1 mg UNSCH PRN OTHER 01/20/18 16:45 (NovoLOG SUPPLEMENTAL SCALE) 1 ACHS SLIDING SCALE SQ 01/20/18 17:00 01/23/18 16:36 Dextrose 500 ml @ 15 mls/hr Q24H PRN IV 01/22/18 09:30 01/23/18 05:18 (Synthroid) 25 mcg DAILY@0600 PO 01/23/18 06:00 01/23/18 06:37 Assessment and Plan Assessment and Plan 57 year old male s/p left BKA with right hallux OM Patient examined and evaluated Discussed intervention with Dr. Ortiz, we both agreed secondary to vascular status patient would benefit from conservative care at this time. Apply betadine and DSD to right hallux daily Ada Judge DPBubba Jan 23, 2018 22:55
[2018-01-24] VITALS (26 sets, daily range): BP systolic 125–152; BP diastolic 59–82; PULSE 66–108; RESP 16–18; TEMP 98–98.9; O2SAT 95–98
[2018-01-24] MEDS: HEPARIN SODIUM - SQ 10,000 UNITS/ML VIAL SQ SCH ×4 (02:16→23:54)
[2018-01-24] MEDS: METOPROLOL TARTRATE 25 MG TAB PO SCH ×3 (06:00→23:53)
[2018-01-24] MEDS: LEVOTHYROXINE SODIUM 25 MCG TAB PO SCH (06:00)
[2018-01-24 07:40] LABS: AUTOMATED NEUTROPHIL # 8.5 TH/MM3 (1.8-7.7); BASOPHIL # 0.1 TH/MM3 (0-0.2); EOSINOPHIL # 0.1 TH/MM3 (0-0.4); EOSINOPHIL % 0.9 % (0.0-4.0); HEMATOCRIT 33.7 % (39.0-51.0); HEMOGLOBIN 9.8 GM/DL (13.0-17.0); LYMPH % 5.4 % (9.0-44.0); LYMPHOCYTE # 0.5 TH/MM3 (1.0-4.8); MEAN CELL VOLUME 78.2 FL (80.0-100.0); MEAN CORPUSCULAR HEMOGLOBIN 22.8 PG (27.0-34.0); MEAN PLATELET VOLUME 9.8 FL (7.0-11.0); MONO % 8.7 % (0.0-8.0); MONOCYTE # 0.9 TH/MM3 (0-0.9); PLATELET COUNT 298 TH/MM3 (150-450); RED BLOOD COUNT 4.32 MIL/MM3 (4.50-5.90); RED CELL DISTRIBUTION WIDTH 23.1 % (11.6-17.2); WHITE BLOOD COUNT 10.1 TH/MM3 (4.0-11.0)
[2018-01-24] MEDS: MEDIUM DOSE INSULIN NOVOLOG SUPPLEMENTAL SCALE SQ SCH ×4 (08:00→21:00)
[2018-01-24 08:01] LABS: MEAN CORPUSCULAR HGB CONC 29.2 % (32.0-36.0)
[2018-01-24 08:11] LABS: ALBUMIN 2.4 GM/DL (3.4-5.0); ALKALINE PHOSPHATASE 457 U/L (45-117); ALT (GPT) 675 U/L (12-78); AST (GOT) 603 U/L (15-37); BICARBONATE 22.2 MEQ/L (21.0-32.0); BLOOD UREA NITROGEN 61 MG/DL (7-18); CALCIUM 8.7 MG/DL (8.5-10.1); CHLORIDE 90 MEQ/L (98-107); GLOMERULAR FILTRATION RATE 8 ML/MIN (>89); MAGNESIUM 2.2 MG/DL (1.5-2.5); PHOSPHORUS 6.3 MG/DL (2.5-4.9); SODIUM (NA) 130 MEQ/L (136-145); TOTAL BILIRUBIN ADULT 0.9 MG/DL (0.2-1.0); TOTAL PROTEIN 7.4 GM/DL (6.4-8.2)
[2018-01-24 08:19] LABS: GLUCOSE,RANDOM 716 MG/DL (74-106)
[2018-01-24] MEDS ORDERED: INSULIN HUMAN REGULAR 1,000 UNITS/10 ML VIAL IV PUSH ONE ×4 (08:45→13:30)
[2018-01-24] MEDS: BUDESONIDE-FORMOTEROL 160/4.5 MCG INHALER INH SCH ×2 (09:00→23:54)
[2018-01-24] MEDS: CHOLECALCIFEROL (VIT D3) 1000 UNIT TAB PO SCH (09:10)
[2018-01-24] MEDS: amLODIPine BESYLATE 5 MG TAB PO SCH (09:10)
[2018-01-24] MEDS: ASPIRIN 81 MG CHEW TAB CHEW SCH (09:10)
[2018-01-24] MEDS: DULoxetine HCl DR 30 MG CAP PO SCH (09:10)
[2018-01-24] MEDS: SEVELAMER CARBONATE 800 MG TAB PO SCH ×3 (09:10→16:47)
[2018-01-24] MEDS: DOCUSATE SODIUM 50 MG/SENNA 8.6 MG TAB PO SCH ×2 (09:10→21:00)
--- NOTE | 2018-01-24 09:22 | HHI.PR ---
Subjective Remarks awake and alert, no complains denies any nausea or vomiting or pain Objective Vitals Vital Signs Date Time Temp Pulse Resp B/P (MAP) Pulse Ox O2 Delivery O2 Flow Rate FiO2 01/24/18 09:16 95 21 01/24/18 04:13 102 01/24/18 04:11 102 01/24/18 04:00 98.9 102 16 141/66 (91) 98 01/24/18 03:00 102 01/24/18 02:00 104 01/24/18 01:00 104 01/24/18 00:00 108 01/24/18 00:00 98.0 108 18 152/71 (98) 97 01/23/18 23:00 106 01/23/18 22:00 106 01/23/18 21:00 74 01/23/18 20:30 98.9 75 16 144/64 (90) 98 01/23/18 20:16 98 21 01/23/18 20:00 76 01/23/18 19:00 76 01/23/18 16:00 98.0 69 17 146/69 (94) 97 01/23/18 15:00 75 I/O 01/23/18 01/23/18 01/23/18 01/24/18 01/24/18 01/24/18 07:00 15:00 23:00 07:00 15:00 23:00 Intake Total 240 ml 480 ml 600 ml Output Total 0 ml 3000 ml 0 ml Balance 240 ml -3000 ml 480 ml 600 ml Intake Oral 240 ml 480 ml 420 ml IV Total 180 ml Output Urine Total 0 ml 0 ml Hemodialysis 3000 ml # Bowel Movements 0 1 1 Result Diagram: 01/24/18 0519 01/24/18 0519 Imaging Last Impressions Liver Ultrasound 01/23/18 0000 Signed Impressions: Service Date/Time: Tuesday, January 23, 2018 08:00 - CONCLUSION: 1. Gallbladder sludge with slightly prominent gallbladder wall. 2. Trace amount of ascites. 3. CBD is not visualized. 4. Small echogenic right kidney may reflect medical renal disease. Phani Vasquez MD Objective Remarks awake and alert, no distress anicteric no nuchal rigidity no rales regular rhyhtm abdmen soft, nontender left BKA- stump- isabel right foot- Hallux- dry gangrene Procedures 01/17/2018 PREOPERATIVE DIAGNOSIS: Left lower extremity nonhealing transmetatarsal amputation. POSTOPERATIVE DIAGNOSIS: Left lower extremity nonhealing transmetatarsal amputation. PROCEDURE PERFORMED: Left below-knee amputation. SURGEON: Randy Ortiz MD CARTOON ANIMATOR SURGEON: Eliu Eduardo MD ANESTHESIA: General. INDICATIONS: Mr. Aguilera is a 57-year-old gentleman with end-stage renal disease and diabetes as well as peripheral arterial disease who was taken to the operating room for a left below-knee amputation electively after a failed transmetatarsal amputation. DESCRIPTION OF PROCEDURE: Consent was obtained from the patient and he was taken to the operating room and placed supine on the operating table. An appropriate timeout was taken to ensure the patient's identity, operative site and the planned procedure. The administration of a gram of vancomycin was initiated prior to skin incision and will be discontinued after a single preoperative dose. Vancomycin was chosen because of the patient's end-stage renal disease. Everyone in the room agreed to the timeout and we proceeded. Left leg was prepped and draped. An incision was made a hand's breadth below the tibial tuberosity, carried down through subcutaneous tissue with electrocautery. The tibia was transected and the fibula was transected with an oscillating saw. A posterior flap was made with electrocautery and the leg was passed off the table as a specimen. The fibula was then resected up to 1 cm cephalad to the tibia transection. The anterior border of the tibia was bevelled and the edges were smoothed to avoid a pressure ulcer. The wound was irrigated and made hemostatic with electrocautery and suture and the wound was closed with 2-0 Polysorb and skin brenda. Sponge and needle counts were correct at the end of the case. I was present, scrubbed, and performed the entire procedure. 01/21/2018 PREOPERATIVE DIAGNOSES: 1. Right upper extremity digital gangrene. 2. Right lower extremity diabetic foot ulcer, peripheral arterial occlusive disease. POSTOPERATIVE DIAGNOSIS: 1. Right upper extremity digital gangrene. 2. Right lower extremity diabetic foot ulcer, peripheral arterial occlusive disease. PROCEDURE PERFORMED: 1. Thoracic aortogram with right extremity angiogram. 2. Right lower extremity angiogram. ATTENDING SURGEON: Randy Ortiz MD. ANESTHESIA: Local with sedation. INDICATIONS FOR PROCEDURE: Mr. Aguilera is a 57-year-old gentleman with diabetes and end-stage renal disease. He has right upper extremity tissue loss and right lower extremity tissue loss and is taken to the operating room for angiographic evaluation and treatment. There was no prior catheter-based imaging of the right upper extremity, nor catheter-based imaging of the right lower extremity since the recurrence of his tissue loss. He is taken to the operating room for this. DESCRIPTION OF PROCEDURE: Informed consent was obtained from the patient. He was taken to the operating room and placed supine on the operating table. An appropriate time-out was taken to ensure the patient's identity, operative site and planned procedure. The administration of antibiotics was not necessary as this is a clean procedure without planned implantation of any foreign objects. Everyone in the room agreed with the time-out and we proceeded. His left groin was prepped and draped and locally anesthetized. A 21-gauge micropuncture needle was used to access the left common femoral artery. This was exchanged using Seldinger technique for the micropuncture sheath, through which was 0.025 Glidewire was introduced and the micropuncture sheath was exchanged for a 5-Croatian sheath. The patient was systemically heparinized with 3000 units of IV heparin. The Glidewire was advanced to the ascending aorta and a pigtail catheter was advanced over this. A thoracic aortogram was obtained. The Glidewire was reintroduced and the pigtail catheter was exchanged for a long glide catheter. This was used to selectively catheterize the innominate right subclavian and right axillary arteries and a right upper extremity arteriogram was obtained. The Glidewire was reintroduced and then the glide catheter was exchanged for a VCF catheter and the Glidewire and VCF catheter were used to navigate down to the right common femoral artery and a right lower extremity arteriogram was obtained with the catheter in the right common femoral artery. The wire, catheter and sheath were removed and pressure was held for hemostasis. There were no complications. I was present and scrubbed and performed the entire procedure. INTERPRETATION IMAGES: The patient has a patent 3-vessel aortic arch without any hemodynamically significant stenoses. The innominate proximal subclavian, axillary, and brachial arteries are all widely patent down to the antecubital. In the distal forearm, there is significant calcific occlusive disease with a very diseased ulnar artery being dominant and a poorly opacifying palmar arch. On the right lower extremity, the common femoral artery and profunda are patent without any hemodynamically significant stenoses. The right superficial femoral and popliteal artery are similarly patent without any hemodynamically significant stenoses. The peroneal artery has a dominant runoff to the foot, but there is also a posterior tibial artery to the foot. There was only intrinsic distal tibial disease at the level of the foot. Randy Ortiz MD A/P Assessment and Plan 57 years old male Left BKA with history of PAD- 01/20: - Vascular surgery ff ESRD on Hemodialysis Nephrology following. SUN-Sun Uncontrolled DM - BS uncontrolled - get dietitian consult, reinforced diabetes teaching- per staff - cover with IV Insulin hourly with hourly blood sugars once BS less than 500 consider overlap with Levemer bid with sliding scale coverage - get endocrinology consult for further recommendations Hypertension controlled to continue antihypertensives - Amlodipine HYperkalemia- likely due to insulin lack- should improve with IV insulin. recheck stat in 1-2 hours Depression stable Peripheral Neuropathy by history. COPD continue supplemental oxygen, Bronchodilator, Mucolytic and incentive spirometry Elevated LFTs- trending down- continue to monitor POSSIBLE RIGHT GREAT TOE SURGERY THEN SNF IN FUTURE DVT prophylaxis with Heparin DC TO SNF SOON Discharge Planning HOPEFULLY TO SNF VS REHAB SOON AFTER PODIATRY CLEARANCE Owen Hurtado MD Jan 24, 2018 09:22
--- NOTE | 2018-01-24 11:09 | HHI.NPPN ---
Subjective General Problems: Anemia Renal Failure: Chronic, End Stage Renal Disease Interval History He is hyperglycemic, over 700. In addition BMP shows hyperkalemia at 5.8 despite HD yesterday. He is in DKA. (Jasmyne Bee) Review of Systems General Constitutional: Fatigue (Jasmyne Bee) Objective Data Data Vital Signs Date Time Temp Pulse Resp B/P (MAP) Pulse Ox O2 Delivery O2 Flow Rate FiO2 01/24/18 09:16 95 21 01/24/18 04:13 102 01/24/18 04:11 102 01/24/18 04:00 98.9 102 16 141/66 (91) 98 01/24/18 03:00 102 01/24/18 02:00 104 01/24/18 01:00 104 01/24/18 00:00 108 01/24/18 00:00 98.0 108 18 152/71 (98) 97 01/23/18 23:00 106 01/23/18 22:00 106 01/23/18 21:00 74 01/23/18 20:30 98.9 75 16 144/64 (90) 98 01/23/18 20:16 98 21 01/23/18 20:00 76 01/23/18 19:00 76 01/23/18 16:00 98.0 69 17 146/69 (94) 97 01/23/18 15:00 75 (Jasmyne Bee) -: 01/24/18 0519 01/24/18 0519 Imaging Last 72 hours Impressions Liver Ultrasound 01/23/18 0000 Signed Impressions: Service Date/Time: Tuesday, January 23, 2018 08:00 - CONCLUSION: 1. Gallbladder sludge with slightly prominent gallbladder wall. 2. Trace amount of ascites. 3. CBD is not visualized. 4. Small echogenic right kidney may reflect medical renal disease. Phani Vasquez MD Tubes & Lines Comment Ta catheter (Jasmyne Bee) Physical Exam General Appearance: Well Developed, Well Nourished, Comfortable (Jasmyne Bee) Eyes Eye Exam: Pupils Equal, Pupils Reactive (Jasmyne Bee) Neck Neck Exam: Neck Supple (Jasmyne Bee) Pulmonary Resp Exam: Clear Bilaterally, Breath Sounds Equal (Jasmyne Bee) Cardiology CV Exam: Regular, Normal Sinus Rhythm (Jasmyne Bee) Gastrointestinal/Abdomen GI Exam: Soft, Non-Tender, Bowel Sounds Present (Jasmyne Bee) Musculoskeletal MS Exam: Normal Tone, Unable to Ambulate MS Remarks s/p L BKA, brenda intact. (Jasmyne Bee) Integumentary Skin Exam: Warm, Dry, Intact (Jasmyne Bee) Extremeties Extremities Exam: Pedal Pulses Palpable Extremeties Remarks on right (Jasmyne Bee) Neurologic Neuro Exam: Alert, Awake, Oriented, Speech Clear, Moving All Extremities (Jasmyne Bee) Psychiatric Psych Exam: Appropriate Responses (Jasmyne Bee) Assessment/Plan Discussed Condition With: Patient Assessment Summary: Anemia of CKD, Hypertension, Diabetes Mellitus, End Stage Renal Disease Problem List: (1) ESRD (end stage renal disease) ICD Codes: N18.6 - End-stage renal disease Status: Resolved Plan: HD MWF, had 3L UF yesterday Hyperkalemia most likely due to extracellular shift of potassium resulting from hyperglycemia Ordered and given IV insulin Repeat Potassium level, will dialyze if needed Diet: changed to diabetic diet, Low K, no protein restriction, add supplements. Patent AVF, protect Left upper ext Avoid IVF administration On sevelamer for metabolic bone disorder.] Apparently his daughter is here from [place] and plans to take the patient with her back home. He will need to have HD arranged in [place]. However we have not been able to speak with her regarding her plans. Arrangements are not complete, we are told that in [facility] no chairs are currently available. We have asked the RN to call us when she arrives so we can confirm her plans and assist in transferring dialysis out of state. (2) PAD (peripheral artery disease) ICD Codes: I73.9 - Peripheral vascular disease, unspecified Status: Chronic Plan: S/p L BKA, healing well. Angio of RUE and RLE, + occlusions, vascular and podiatry are following. apparently bypass is not an option given his anatomy. May need amputation of his right toe but for now no plans are made. Continue Wound care , cultures negative to date Pain control Not currently on antibiotics. We most likely will remove Ta catheter prior to discharge. (3) HTN (hypertension) ICD Codes: I10 - Essential (primary) hypertension Status: Chronic Plan: Continue current medications, titrate to effect Permanent Comment: Last Edited By: Jasmyne Bee on Jul 11, 2017 15:31 (4) DM (diabetes mellitus) ICD Codes: E11.9 - Type 2 diabetes mellitus without complications Status: Chronic Plan: Off D10 He is a very brittle diabetic Currently in DKA. High beta hydroxybutyrate. Will need insulin gtt. Maintain glucose 140-180 mg/dL Needs to eat regularly, he is a very brittle diabetic; diet changed to diabetic (5) Anemia ICD Codes: D64.9 - Anemia, unspecified Plan: Epogen per protocol. (Jasmyne Bee) Plan patient was seen and examined. Hyperkalemia due to hyperglycemia, insulin deficiency. May need insulin drip, was seen by [facility], note was reviewed. (Maurice Schultz MD) Jasmyne Bee Jan 24, 2018 11:09 Maurice Schultz MD Jan 24, 2018 20:42
[2018-01-24 13:46] LABS: BICARBONATE 24.5 MEQ/L (21.0-32.0); CALCIUM 8.6 MG/DL (8.5-10.1); CREATININE 9.14 MG/DL (0.60-1.30)
--- NOTE | 2018-01-24 15:59 | PD.CONS ---
History of Present Illness Service Endocrinology Consult Requested By Dr. Hurtado Reason for Consult Uncontrolled Diabetes type 1 Primary Care Physician Naresh Juarez MD Diagnoses: History of Present Illness Mr Anatoliy Aguilera is a 57 years old gentleman known to me from his last admission with a past medical history of longstanding type 1 diabetes complicated by retinopathy, PNP, PVD, and status post amputations and revascularizations. He was admitted this time to undergo a toe amputation which was aborted due to his poor vascular supply, While being NPO for this procedure and undergoing the work up the patient was placed on D10 for the last about 25 hours. This morning he was found to have a very high reading which was corroborated to be in the 700 range. He has been treated with IV regular insulin since about 845 this morning adn hourly monitoring of his blood sugars. In total he has received 67 units of insulin. He has been more lethargic although awake and not able to really cooperate with a history and questioning today most of the history was gathered from chart review and communicating with his current RN. Review of Systems ROS Limitations: Altered Mental Status Past Family Social History Allergies: Coded Allergies: No Known Allergies (Verified Allergy, Unknown, 01/17/18) Past Medical History type 1 DM, retinopathy, PVD, ESRD on HD, HTN, Past Surgical History left arm shut plus multiple amputations as well as revascularization proceedures. Reported Medications In chart Active Ordered Medications See chart Family History Premature CAD and dyslipidemia Social History The patient is single currently unemployed. He has a hsitory of smoking in the past but per chart review no history of ETOH or drug abuse. He is from [place] and has a daughter who has come to take him back once he is discharged. Physical Exam Vital Signs Vital Signs Date Time Temp Pulse Resp B/P (MAP) Pulse Ox O2 Delivery O2 Flow Rate FiO2 01/24/18 09:16 95 21 01/24/18 04:13 102 01/24/18 04:11 102 01/24/18 04:00 98.9 102 16 141/66 (91) 98 01/24/18 03:00 102 01/24/18 02:00 104 01/24/18 01:00 104 01/24/18 00:00 108 01/24/18 00:00 98.0 108 18 152/71 (98) 97 01/23/18 23:00 106 01/23/18 22:00 106 01/23/18 21:00 74 01/23/18 20:30 98.9 75 16 144/64 (90) 98 01/23/18 20:16 98 21 01/23/18 20:00 76 01/23/18 19:00 76 01/23/18 16:00 98.0 69 17 146/69 (94) 97 Physical Exam GENERAL: This is a well-nourished, well-developed patient, in no apparent distress. The patient is unable to give any history. He is alert and awake and trying to eat his food. SKIN: No rashes, ecchymoses or lesions. Cool and dry. HEAD: Atraumatic. Normocephalic. No temporal or scalp tenderness. EYES: Spontaneous extraocular motions intact. No scleral icterus. No injection or drainage. ENT: Nose without bleeding, purulent drainage or septal hematoma. Airway patent. NECK: Trachea midline. No JVD or lymphadenopathy. Supple, nontender, no meningeal signs. CARDIOVASCULAR: Regular rate and rhythm with diastyolic murmur on his left parasternal border but no gallops, or rubs are heard. RESPIRATORY: Clear to auscultation. Breath sounds equal bilaterally. No wheezes , rales, or rhonchi. GASTROINTESTINAL: Abdomen soft, non-tender, nondistended. No hepato-splenomegaly , or palpable masses. No guarding. MUSCULOSKELETAL: Extremities status post past medical and surgical history NEUROLOGICAL: Awake and alert. Please see above. Unable to cooperate with the examination. Laboratory Laboratory Tests Test 01/23/18 18:14 01/24/18 05:19 01/24/18 13:02 Hepatitis A IgM Antibody NONREACTIVE Hepatitis B Surface Antigen NONREACTIVE Hepatitis B Core IgM Antibody NONREACTIVE Hepatitis C IgG Antibody NONREACTIVE White Blood Count 10.1 Red Blood Count 4.32 Hemoglobin 9.8 Hematocrit 33.7 Mean Corpuscular Volume 78.2 Mean Corpuscular Hemoglobin 22.8 Mean Corpuscular Hemoglobin Concent 29.2 Red Cell Distribution Width 23.1 Platelet Count 298 Mean Platelet Volume 9.8 Neutrophils (%) (Auto) 84.0 Lymphocytes (%) (Auto) 5.4 Monocytes (%) (Auto) 8.7 Eosinophils (%) (Auto) 0.9 Basophils (%) (Auto) 1.0 Neutrophils # (Auto) 8.5 Lymphocytes # (Auto) 0.5 Monocytes # (Auto) 0.9 Eosinophils # (Auto) 0.1 Basophils # (Auto) 0.1 CBC Comment DIFF FINAL Differential Comment Blood Urea Nitrogen 61 67 Creatinine 8.20 9.14 Random Glucose 716 565 Total Protein 7.4 Albumin 2.4 Calcium Level 8.7 8.6 Phosphorus Level 6.3 Magnesium Level 2.2 Alkaline Phosphatase 457 Aspartate Amino Transf (AST/SGOT) 603 Alanine Aminotransferase (ALT/SGPT) 675 Total Bilirubin 0.9 Sodium Level 130 132 Potassium Level 5.8 4.7 Chloride Level 90 93 Carbon Dioxide Level 22.2 24.5 Anion Gap 18 15 Estimat Glomerular Filtration Rate 8 7 B-Hydroxybutyrate 4.04 Date/Time Source Procedure Growth Status 01/19/18 14:45 Wound Toe Gram Stain - Final Complete 01/19/18 14:45 Wound Culture - Final Alannah Parapsilosis Complete Result Diagram: 01/24/18 0519 01/24/18 1302 Assessment and Plan Assessment and Plan Uncontrolled Type 1 diabetes HTN ESRD on HD PAD Discussed management with RN and Dr. Hurtado. For now will hold IV regular insulin and follow his blood glucose trends every hour. Will give patient regular Levemir dose as scheduled and continue to monitor. Currently it seems the main issue was the D10 and he does not seem to have any localized new inflammatory/infectious process going on to explain this change in his blood glucose behavior. Otherwise will hold off the sliding scale and will change his Diet to have a consistent 45 grams of carbohydrates at Breakfast Lunch and Dinner, keep his in between meal snacks non-carb and give him fixed 3 units of Humalog or Novolog insulin before each meal. Will take the liberty to write the above orders. For now will monitor his blood sugars every hour and will follow with you. Thanks for allowing me to participate in the medical management of your patient. José Luis Washington MD Jan 24, 2018 15:59
[2018-01-24] MEDS: INSULIN DETEMIR 100 UNITS/ML VIAL SQ SCH (16:00)
[2018-01-24] MEDS: ATORVASTATIN 40 MG TAB PO SCH (21:00)
[2018-01-25] VITALS (12 sets, daily range): BP systolic 128–134; BP diastolic 62–64; PULSE 69–90; RESP 16; TEMP 98; O2SAT 95–98
[2018-01-25 05:12] LABS: ALBUMIN 2.2 GM/DL (3.4-5.0); CALCIUM 8.7 MG/DL (8.5-10.1); CREATININE 9.83 MG/DL (0.60-1.30); PHOSPHORUS 5.4 MG/DL (2.5-4.9)
[2018-01-25] MEDS: MEDIUM DOSE INSULIN NOVOLOG SUPPLEMENTAL SCALE SQ SCH ×3 (08:00→17:00)
--- NOTE | 2018-01-25 08:44 | HHI.PR ---
Subjective Remarks no complains of chest pains or shortness of breath no foot pain BS good readings last evening d/w with family at bedside home after HD today Objective Vitals Vital Signs Date Time Temp Pulse Resp B/P (MAP) Pulse Ox O2 Delivery O2 Flow Rate FiO2 01/25/18 06:00 72 01/25/18 05:00 70 01/25/18 04:00 71 01/25/18 04:00 70 01/25/18 03:00 70 01/25/18 02:00 90 01/25/18 01:00 70 01/25/18 00:00 70 16 128/62 (84) 98 01/25/18 00:00 70 01/25/18 00:00 69 01/24/18 23:00 68 01/24/18 22:00 88 01/24/18 21:00 70 01/24/18 20:00 68 16 128/62 (84) 96 01/24/18 20:00 68 01/24/18 20:00 68 01/24/18 19:00 66 01/24/18 18:00 68 01/24/18 17:00 72 01/24/18 16:00 66 01/24/18 15:00 98.5 80 18 144/82 (102) 98 01/24/18 15:00 72 01/24/18 14:00 102 01/24/18 13:00 72 01/24/18 12:00 70 01/24/18 11:00 71 01/24/18 11:00 98.9 72 16 125/59 (81) 98 01/24/18 10:00 78 01/24/18 09:16 95 21 01/24/18 09:00 100 I/O 01/24/18 01/24/18 01/24/18 01/25/18 01/25/18 01/25/18 07:00 15:00 23:00 07:00 15:00 23:00 Intake Total 600 ml 480 ml 240 ml Output Total 0 ml 1 ml Balance 600 ml 479 ml 240 ml Intake Oral 420 ml 480 ml 240 ml IV Total 180 ml Output Urine Total 0 ml 0 ml Stool Total 1 ml # Bowel Movements 1 Result Diagram: 01/24/18 0519 01/25/18 0435 Imaging Last Impressions Liver Ultrasound 01/23/18 0000 Signed Impressions: Service Date/Time: Tuesday, January 23, 2018 08:00 - CONCLUSION: 1. Gallbladder sludge with slightly prominent gallbladder wall. 2. Trace amount of ascites. 3. CBD is not visualized. 4. Small echogenic right kidney may reflect medical renal disease. Phani Vasquez MD Objective Remarks awake and alert, no distress anicteric no nuchal rigidity no rales regular rhyhtm abdomen soft, nontender LUE- AVF - good bruit left BKA- stump- clean right foot- big Hallux tip - dry gangrene Procedures 01/17/2018 Left below-knee amputation. A/P Assessment and Plan 57 years old male S/P Left BKA 01/20 with history of PAD- Right hallus dry gangrene - Vascular surgery ff - Podiatry ff- no plan for surgery at this time - OP ff up ESRD on Hemodialysis Nephrology following. SUN-Sun Uncontrolled DM - BS - better readings - reinforced diabetes teaching- per staff - appreciate Dr. Washington's recommendations and help - continue on Levemerr 10 units bid AC and standing Regular insulin tid ac Hypertension controlled to continue antihypertensives - Amlodipine HYperkalemia-resolved Depression stable Peripheral Neuropathy by history. COPD continue supplemental oxygen, Bronchodilator, Mucolytic and incentive spirometry Elevated LFTs- trending down- continue to monitor DVT prophylaxis with Heparin Discharge Planning [place] home today - [place] [facility] [place] up with Podiatry, Nephrology, PCP long discussion with family-- odabetes management and compliance with HD Owen Hurtado MD Jan 25, 2018 08:44
[2018-01-25] MEDS: DOCUSATE SODIUM 50 MG/SENNA 8.6 MG TAB PO SCH (09:00)
[2018-01-25 09:54] LABS: ALBUMIN 2.3 GM/DL (3.4-5.0); DIRECT BILIRUBIN ADULT 0.2 MG/DL (0.0-0.2)
[2018-01-25 10:02] LABS: INDIRECT BILIRUBIN 0.4 MG/DL (0.0-0.8); TOTAL BILIRUBIN ADULT 0.6 MG/DL (0.2-1.0); TOTAL PROTEIN 6.9 GM/DL (6.4-8.2)
--- NOTE | 2018-01-25 10:15 | HHI.NPPN ---
Subjective General Problems: Anemia Renal Failure: Chronic, End Stage Renal Disease Interval History He is awake. Blood sugar around 150 mg/dL today. Due for dialysis. (Jasmyne Bee) Review of Systems General Constitutional: Fatigue (Jasmyne Bee) Objective Data Data Vital Signs Date Time Temp Pulse Resp B/P (MAP) Pulse Ox O2 Delivery O2 Flow Rate FiO2 01/25/18 09:38 98.0 72 16 134/64 (87) 95 01/25/18 06:00 72 01/25/18 05:00 70 01/25/18 04:00 71 01/25/18 04:00 70 01/25/18 03:00 70 01/25/18 02:00 90 01/25/18 01:00 70 01/25/18 00:00 70 16 128/62 (84) 98 01/25/18 00:00 70 01/25/18 00:00 69 01/24/18 23:00 68 01/24/18 22:00 88 01/24/18 21:00 70 01/24/18 20:00 68 16 128/62 (84) 96 01/24/18 20:00 68 01/24/18 20:00 68 01/24/18 19:00 66 01/24/18 18:00 68 01/24/18 17:00 72 01/24/18 16:00 66 01/24/18 15:00 98.5 80 18 144/82 (102) 98 01/24/18 15:00 72 01/24/18 14:00 102 01/24/18 13:00 72 01/24/18 12:00 70 01/24/18 11:00 71 01/24/18 11:00 98.9 72 16 125/59 (81) 98 (Jasmyne Bee) -: 01/24/18 0519 01/25/18 0435 Imaging Last 72 hours Impressions Liver Ultrasound 01/23/18 0000 Signed Impressions: Service Date/Time: Tuesday, January 23, 2018 08:00 - CONCLUSION: 1. Gallbladder sludge with slightly prominent gallbladder wall. 2. Trace amount of ascites. 3. CBD is not visualized. 4. Small echogenic right kidney may reflect medical renal disease. Phani Vasquez MD Tubes & Lines Comment Ta catheter (Jasmyne Bee) Physical Exam General Appearance: Well Developed, Well Nourished, Comfortable (Jasmyne Bee) Eyes Eye Exam: Pupils Equal, Pupils Reactive (Jasmyne Bee) Neck Neck Exam: Neck Supple (Jasmyne Bee) Pulmonary Resp Exam: Clear Bilaterally, Breath Sounds Equal (Jasmyne Bee) Cardiology CV Exam: Regular, Normal Sinus Rhythm (Jasmyne Bee) Gastrointestinal/Abdomen GI Exam: Soft, Non-Tender, Bowel Sounds Present (Jasmyne Bee) Musculoskeletal MS Exam: Normal Tone, Unable to Ambulate MS Remarks s/p L BKA, rbenda intact. (Jasmyne Bee) Integumentary Skin Exam: Warm, Dry, Intact (Jasmyne Bee) Extremeties Extremities Exam: Pedal Pulses Palpable Extremeties Remarks on right (Jasmyne Bee) Neurologic Neuro Exam: Alert, Awake, Oriented, Speech Clear, Moving All Extremities (Jasmyne Bee) Psychiatric Psych Exam: Appropriate Responses (Jasmyne Bee) Assessment/Plan Discussed Condition With: Patient Assessment Summary: Anemia of CKD, Hypertension, Diabetes Mellitus, End Stage Renal Disease Problem List: (1) ESRD (end stage renal disease) ICD Codes: N18.6 - End-stage renal disease Status: Resolved Plan: HD MWF, he is due today Hyperkalemia improved Diet: on diabetic diet, Low K, no protein restriction, add supplements. Patent AVF, protect Left upper extremity Avoid IVF administration On sevelamer for metabolic bone disorder. His daughter is here from [place] and plans to take the patient with her back home. He will need to have HD arranged in [place]. Chair time is not confirmed at this time. Will continue to follow. (2) PAD (peripheral artery disease) ICD Codes: I73.9 - Peripheral vascular disease, unspecified Status: Chronic Plan: S/p L BKA, healing well. Angio of RUE and RLE, + occlusions, vascular and podiatry are following. apparently bypass is not an option given his anatomy. No plan for amputation of his right toe this admission Continue Wound care , cultures negative to date Pain control Consult IR to remove Ta prior to discharge (3) HTN (hypertension) ICD Codes: I10 - Essential (primary) hypertension Status: Chronic Plan: Continue current medications, titrate to effect Permanent Comment: Last Edited By: Jasmyne Bee on Jul 11, 2017 15:31 (4) DM (diabetes mellitus) ICD Codes: E11.9 - Type 2 diabetes mellitus without complications Status: Chronic Plan: Endocrinology has evaluated He is a very brittle diabetic Insulin dose changed Maintain glucose 140-180 mg/dL Needs to eat regularly (5) Anemia ICD Codes: D64.9 - Anemia, unspecified Plan: Epogen per protocol. Plan Cleared for discharge from renal standpoint. (Jasmyne Bee) Plan patient was seen and examined. Agree with above. It is unclear at this time if dialysis arrangements have been made at [place]. (Maurice Schultz MD) Jasmyne Bee Jan 25, 2018 10:15 Maurice Schultz MD Jan 25, 2018 12:43
[2018-01-25] MEDS: SEVELAMER CARBONATE 800 MG TAB PO SCH ×3 (10:30→17:00)
[2018-01-25] MEDS: ASPIRIN 81 MG CHEW TAB CHEW SCH (10:31)
[2018-01-25] MEDS: CHOLECALCIFEROL (VIT D3) 1000 UNIT TAB PO SCH (10:31)
[2018-01-25] MEDS: DULoxetine HCl DR 30 MG CAP PO SCH (10:31)
[2018-01-25] MEDS: LEVOTHYROXINE SODIUM 25 MCG TAB PO SCH (10:31)
[2018-01-25] MEDS: amLODIPine BESYLATE 5 MG TAB PO SCH (10:31)
[2018-01-25] MEDS: METOPROLOL TARTRATE 25 MG TAB PO SCH ×2 (10:31→13:10)
[2018-01-25] MEDS: INSULIN ASPART 1,000 UNITS/10 ML VIAL SQ SCH ×3 (10:32→17:00)
[2018-01-25] MEDS: INSULIN DETEMIR 100 UNITS/ML VIAL SQ SCH ×2 (10:32→15:32)
[2018-01-25] MEDS: BUDESONIDE-FORMOTEROL 160/4.5 MCG INHALER INH SCH (10:33)
[2018-01-25] MEDS: HEPARIN SODIUM - SQ 10,000 UNITS/ML VIAL SQ SCH ×2 (10:33→17:00)
[2018-01-25] MEDS ORDERED: LEVO25TA4 PO (11:41)
--- NOTE | 2018-01-25 12:31 | HHI.PR ---
Subjective Remarks Patient has been doing better. Blood sugars are better controlled now. Patient is most likely being discharged home today. Daughter is present in room. Objective Blood glucose results both from lab and finger stick results reviewed. Laboratory Tests Test 01/22/18 14:21 01/23/18 10:45 01/23/18 18:14 01/24/18 05:19 Red Blood Count 4.17 MIL/MM3 (4.50-5.90) 4.32 MIL/MM3 (4.50-5.90) Hemoglobin 9.6 GM/DL (13.0-17.0) 9.8 GM/DL (13.0-17.0) Hematocrit 30.5 % (39.0-51.0) 33.7 % (39.0-51.0) Mean Corpuscular Volume 73.2 FL (80.0-100.0) 78.2 FL (80.0-100.0) Mean Corpuscular Hemoglobin 22.9 PG (27.0-34.0) 22.8 PG (27.0-34.0) Mean Corpuscular Hemoglobin Concent 31.4 % (32.0-36.0) 29.2 % (32.0-36.0) Red Cell Distribution Width 22.5 % (11.6-17.2) 23.1 % (11.6-17.2) Neutrophils (%) (Auto) 75.4 % (16.0-70.0) 84.0 % (16.0-70.0) Monocytes (%) (Auto) 10.9 % (0.0-8.0) 8.7 % (0.0-8.0) Monocytes # (Auto) 1.1 TH/MM3 (0-0.9) Blood Urea Nitrogen 81 MG/DL (7-18) 61 MG/DL (7-18) Creatinine 10.65 MG/DL (0.60-1.30) 8.20 MG/DL (0.60-1.30) Random Glucose 190 MG/DL (74-106) 716 MG/DL (74-106) Albumin 2.2 GM/DL (3.4-5.0) 2.4 GM/DL (3.4-5.0) Phosphorus Level 6.9 MG/DL (2.5-4.9) 6.3 MG/DL (2.5-4.9) Alkaline Phosphatase 434 U/L (45-117) 457 U/L (45-117) Aspartate Amino Transf (AST/SGOT) 1125 U/L (15-37) 603 U/L (15-37) Alanine Aminotransferase (ALT/SGPT) 841 U/L (12-78) 675 U/L (12-78) Sodium Level 135 MEQ/L (136-145) 130 MEQ/L (136-145) Chloride Level 96 MEQ/L (98-107) 90 MEQ/L (98-107) Estimat Glomerular Filtration Rate 6 ML/MIN (>89) 8 ML/MIN (>89) Lymphocytes (%) (Auto) 5.4 % (9.0-44.0) Neutrophils # (Auto) 8.5 TH/MM3 (1.8-7.7) Lymphocytes # (Auto) 0.5 TH/MM3 (1.0-4.8) Potassium Level 5.8 MEQ/L (3.5-5.1) Anion Gap 18 MEQ/L (5-15) B-Hydroxybutyrate 4.04 MMOL/L (0.00-0.39) Test 01/24/18 13:02 01/25/18 04:35 Blood Urea Nitrogen 67 MG/DL (7-18) 71 MG/DL (7-18) Creatinine 9.14 MG/DL (0.60-1.30) 9.83 MG/DL (0.60-1.30) Random Glucose 565 MG/DL (74-106) Sodium Level 132 MEQ/L (136-145) Chloride Level 93 MEQ/L (98-107) Estimat Glomerular Filtration Rate 7 ML/MIN (>89) 7 ML/MIN (>89) Albumin 2.2 GM/DL (3.4-5.0) Phosphorus Level 5.4 MG/DL (2.5-4.9) Aspartate Amino Transf (AST/SGOT) 346 U/L (15-37) Alanine Aminotransferase (ALT/SGPT) 619 U/L (12-78) Alkaline Phosphatase 364 U/L (45-117) Vital Signs Date Time Temp Pulse Resp B/P (MAP) Pulse Ox O2 Delivery O2 Flow Rate FiO2 01/25/18 09:38 98.0 72 16 134/64 (87) 95 01/25/18 06:00 72 01/25/18 05:00 70 01/25/18 04:00 71 01/25/18 04:00 70 01/25/18 03:00 70 01/25/18 02:00 90 01/25/18 01:00 70 01/25/18 00:00 70 16 128/62 (84) 98 01/25/18 00:00 70 01/25/18 00:00 69 01/24/18 23:00 68 01/24/18 22:00 88 01/24/18 21:00 70 01/24/18 20:00 68 16 128/62 (84) 96 01/24/18 20:00 68 01/24/18 20:00 68 01/24/18 19:00 66 01/24/18 18:00 68 01/24/18 17:00 72 01/24/18 16:00 66 01/24/18 15:00 98.5 80 18 144/82 (102) 98 01/24/18 15:00 72 01/24/18 14:00 102 01/24/18 13:00 72 I/O 01/24/18 01/24/18 01/24/18 01/25/18 01/25/18 01/25/18 07:00 15:00 23:00 07:00 15:00 23:00 Intake Total 600 ml 480 ml 240 ml Output Total 0 ml 1 ml Balance 600 ml 479 ml 240 ml Intake Oral 420 ml 480 ml 240 ml IV Total 180 ml Output Urine Total 0 ml 0 ml Stool Total 1 ml # Bowel Movements 1 Result Diagram: 01/24/18 0519 01/25/18 0435 Assessment and Plan Assessment and Plan Uncontrolled Type 1 diabetes HTN ESRD on HD PAD Blood glucose levels are doing much better. I have discussed his hoome management recommendations with patient's daughter. Recommend the following for patient's home management. * Keep the patient on a consistent carbohydrate diet for now consisting of 45 grams of carbs. * Give 3 units of Novolog no more than 15 minutes before each meal when it is certain that the patient will consume his meal or immediately AFTER his meals if he was to not be predictable in his intake. In that case he can be given 1 unit of Novolog for each 15 grams of carbohydrates for now till he can see an Hydrology Technician in [place] * Get him on a Freestyle Nataliya in view of his history of multiple hypoglycemic episodes at home in the past as well as his widely fluctuating blood sugar history. * Use mainly non-carbohydrate containing snacks in between his meals if he was to want to snack. I have discussed many an option of non carbohydrate containing meals with his Daughter in the office today. * Follow up with Endocrinology and other providers once he is back in [place]. Daughter has already been trying to arrange this for him. Discharge instructions written in Nursing Discharge instructions. Thank you for allowing me to participate in the medical management of this gentleman. Discussed Condition With Daughter and family in the patient's room today. Discharge Planning See above. José Luis Washington MD Jan 25, 2018 12:31
[2018-01-25] MEDS: EPOETIN ALFA 4,000 UNITS/ML VIAL IV PUSH PRN (16:22)
[2018-01-25] MEDS: HYDROmorphone HCL 2 MG TAB PO PRN (18:12)
--- NOTE | 2018-01-25 19:38 | HHI.DS ---
Discharge Summary Admission Date Jan 17, 2018 at 13:27 Discharge Date: Jan 25, 2018 Admitting Diagnosis (1) ESRD (end stage renal disease) ICD Code: N18.6 - End-stage renal disease Diagnosis: Principal Status: Resolved (2) HTN (hypertension) ICD Code: I10 - Essential (primary) hypertension Diagnosis: Secondary Status: Chronic (3) DM (diabetes mellitus) ICD Code: E11.9 - Type 2 diabetes mellitus without complications Diagnosis: Secondary Status: Chronic Procedures 01/17/2018 Left below-knee amputation. Brief History - From Admission 57 yo male with PAD and ESRD, s/p TMA that is ischemic despite revascularization that is endovascularly successful; presents for BKA CBC/BMP: 01/24/18 0519 01/25/18 0435 Significant Findings Laboratory Tests Test 01/23/18 10:45 01/23/18 18:14 01/24/18 05:19 01/24/18 13:02 Red Blood Count 4.17 MIL/MM3 (4.50-5.90) 4.32 MIL/MM3 (4.50-5.90) Hemoglobin 9.6 GM/DL (13.0-17.0) 9.8 GM/DL (13.0-17.0) Hematocrit 30.5 % (39.0-51.0) 33.7 % (39.0-51.0) Mean Corpuscular Volume 73.2 FL (80.0-100.0) 78.2 FL (80.0-100.0) Mean Corpuscular Hemoglobin 22.9 PG (27.0-34.0) 22.8 PG (27.0-34.0) Mean Corpuscular Hemoglobin Concent 31.4 % (32.0-36.0) 29.2 % (32.0-36.0) Red Cell Distribution Width 22.5 % (11.6-17.2) 23.1 % (11.6-17.2) Neutrophils (%) (Auto) 75.4 % (16.0-70.0) 84.0 % (16.0-70.0) Monocytes (%) (Auto) 10.9 % (0.0-8.0) 8.7 % (0.0-8.0) Monocytes # (Auto) 1.1 TH/MM3 (0-0.9) Blood Urea Nitrogen 81 MG/DL (7-18) 61 MG/DL (7-18) 67 MG/DL (7-18) Creatinine 10.65 MG/DL (0.60-1.30) 8.20 MG/DL (0.60-1.30) 9.14 MG/DL (0.60-1.30) Random Glucose 190 MG/DL (74-106) 716 MG/DL (74-106) 565 MG/DL (74-106) Albumin 2.2 GM/DL (3.4-5.0) 2.4 GM/DL (3.4-5.0) Phosphorus Level 6.9 MG/DL (2.5-4.9) 6.3 MG/DL (2.5-4.9) Alkaline Phosphatase 434 U/L (45-117) 457 U/L (45-117) Aspartate Amino Transf (AST/SGOT) 1125 U/L (15-37) 603 U/L (15-37) Alanine Aminotransferase (ALT/SGPT) 841 U/L (12-78) 675 U/L (12-78) Sodium Level 135 MEQ/L (136-145) 130 MEQ/L (136-145) 132 MEQ/L (136-145) Chloride Level 96 MEQ/L (98-107) 90 MEQ/L (98-107) 93 MEQ/L (98-107) Estimat Glomerular Filtration Rate 6 ML/MIN (>89) 8 ML/MIN (>89) 7 ML/MIN (>89) Lymphocytes (%) (Auto) 5.4 % (9.0-44.0) Neutrophils # (Auto) 8.5 TH/MM3 (1.8-7.7) Lymphocytes # (Auto) 0.5 TH/MM3 (1.0-4.8) Potassium Level 5.8 MEQ/L (3.5-5.1) Anion Gap 18 MEQ/L (5-15) B-Hydroxybutyrate 4.04 MMOL/L (0.00-0.39) Test 01/25/18 04:35 Blood Urea Nitrogen 71 MG/DL (7-18) Creatinine 9.83 MG/DL (0.60-1.30) Albumin 2.2 GM/DL (3.4-5.0) Phosphorus Level 5.4 MG/DL (2.5-4.9) Estimat Glomerular Filtration Rate 7 ML/MIN (>89) Aspartate Amino Transf (AST/SGOT) 346 U/L (15-37) Alanine Aminotransferase (ALT/SGPT) 619 U/L (12-78) Alkaline Phosphatase 364 U/L (45-117) Imaging Last Impressions Central Venous Line 01/25/18 0000 Signed Impressions: Service Date/Time: Thursday, January 25, 2018 00:00 - CONCLUSION: Uncomplicated Permcath removal. Phani Vasquez MD Liver Ultrasound 01/23/18 0000 Signed Impressions: Service Date/Time: Tuesday, January 23, 2018 08:00 - CONCLUSION: 1. Gallbladder sludge with slightly prominent gallbladder wall. 2. Trace amount of ascites. 3. CBD is not visualized. 4. Small echogenic right kidney may reflect medical renal disease. Phani Vasquez MD PE at Discharge awake and alert, no distress anicteric no nuchal rigidity no rales regular rhyhtm abdomen soft, nontender LUE- AVF - good bruit left BKA- stump- clean right foot- big Hallux tip - dry gangrene Pt update on day of discharge afebrile, awake and alert, no distress Hospital Course 57 years old male S/P Left BKA 01/20 with history of PAD- Right hallus dry gangrene - Vascular surgery ff - Podiatry ff- no plan for surgery at this time - OP ff up ESRD on Hemodialysis Nephrology following. SUN-Sun Uncontrolled DM - BS - better readings - reinforced diabetes teaching- per staff - appreciate Dr. Washington's recommendations and help - continue on Levemerr 10 units bid AC and standing Regular insulin tid ac Hypertension controlled to continue antihypertensives - Amlodipine HYperkalemia-resolved Depression stable Peripheral Neuropathy by history. COPD continue supplemental oxygen, Bronchodilator, Mucolytic and incentive spirometry Elevated LFTs- trending down- continue to monitor DVT prophylaxis with Heparin Discharge Planning DC home today - travelling to [place] OP ff up with Podiatry, Nephrology, PCP long discussion with family-- diabetes management and compliance with HD Pt Condition on Discharge: Stable Discharge Disposition: Discharge Home Discharge Time: > 30 minutes Discharge Instructions DIET: Follow Instructions for: Diabetic Diet, Renal Failure Diet Activities you can perform: Weight Bearing as [place] Follow up Referrals: Podiatry @ [facility] with Ada Jduge DPM Vascular Surgery - 2 Weeks @ Vascular Surgery with Randy Oritz MD New Medications: Levothyroxine (Levothyroxine) 25 Mcg Tab 25 MCG PO DAILY@0600 for hypothyroidsims for 30 Days, TAB 3 Refills Continued Medications: Amlodipine (Norvasc) 5 Mg Tab 5 MG PO DAILY, #30 TAB Aspirin (Tgt Aspirin) 81 Mg Chw 81 MG CHEW DAILY for antiplatelet for 30 Days, EA 0 Refills Atorvastatin (Atorvastatin) 40 Mg Tab 40 MG PO HS for Cholesterol Management, #30 TAB 0 Refills Baclofen (Baclofen) 10 Mg Tab 10 MG PO DAILY PRN for hiccups, #30 TAB 0 Refills Budesonide-Formoterol Inh (Symbicort Inh) 160-4.5 Mcg/Act Aero 1 PUFF INH Q12HR, #1 INHALER 2 Refills Cholecalciferol (Vitamin D3) 1,000 Unit Cap 1000 UNITS PO DAILY for Nutritional Supplement, #1 BOTTLE [address] (Duloxetine DR) 30 Mg Capdr 30 MG PO DAILY, #30 CAP 0 Refills Insulin Aspart Inj (Novolog Inj) 1,000 Unit/10 Ml Vial 3 UNITS SQ TIDAC for diabetes for 30 Days, INJECTION 0 Refills Insulin Detemir Inj (Levemir Inj) 1,000 unit/ 10 ML Vial 10 UNITS SQ Q12HR for diabetes for 30 Days, VIAL Do not mix with any other Insulin. Metoprolol Tartrate (Metoprolol Tartrate) 25 Mg Tab 25 MG PO Q8H for hypertension for 30 Days, #90 TAB 0 Refills Sevelamer Carbonate (Renvela) 800 Mg Tab 2400 MG PO TIDAC for esrd for 30 Days, TAB 0 Refills Owen Hurtado MD Jan 25, 2018 19:38
--- NOTE | 2018-01-27 04:10 | RADRPT ---
EXAM DATE/TIME: 01/25/2018 00:00 [facility] COMPARISON: No previous studies available for comparison. INDICATIONS : Patient presents with central venous catheter that is no longer needed. MEDICAL HISTORY : PAD ESRD DM SURGICAL HISTORY : Multiple foot procedures Multiple LE angiograms with interventions L UE AVF ENCOUNTER: Subsequent ACUITY: 1 week PAIN SCORE: 0/10 LOCATION: N/A IMAGE SERIES: 0 PROCEDURE : 1. PermaCath removal. The risks, benefits and alternatives to the procedure were explained and verbal and written consent w as obtained. The site was prepped in sterile fashion. Full sterile technique was used, including ca p, mask, sterile gloves and gown and a large sterile sheet. Hand hygiene and 2% chlorhexidine and/or betadine/alcohol prep was utilized per protocol for cutaneous antisepsis. The skin and subcutaneous tissues were infiltrated with local anesthetic solution. The tract was anesthetized with 1% Lidocaine using. The Permcath was dissected from the subcutaneous tissues and easily removed in one piece. Manual pressure was applied to the venotomy site until hem ostasis was obtained. Sterile dressing was applied. The patient tolerated the procedure well and there were no complications. CONCLUSION: Uncomplicated Permcath removal. Phani Vasquez MD on January 27, 2018 at 4:08 Board Certified Radiologist. This report was verified electronically.
== END 2018-01-25 18:56 | disposition home or self-care (01) | DRG 239 ==
LOC: HSDI 13:27 → HCVI 20:21 → HCIS 01-19 17:42
PROVIDERS: ADMIT Surgery; ATTEND Internal Medicine
PROC: 0Y6J0Z1 Detachment at Left Lower Leg, High, Open Approach (ICD-10-PCS; principal; 2018-01-17 16:40)
PROC: 5A1D70Z Performance of Urinary Filtration, Intermittent, Less than 6 Hours Per Day (ICD-10-PCS; 2018-01-18)
PROC: B3101ZZ Fluoroscopy of Thoracic Aorta using Low Osmolar Contrast (ICD-10-PCS; 2018-01-21)
PROC: B41F1ZZ Fluoroscopy of Right Lower Extremity Arteries using Low Osmolar Contrast (ICD-10-PCS; 2018-01-21)
PROC: 02PYX3Z Removal of Infusion Device from Great Vessel, External Approach (ICD-10-PCS; 2018-01-25)
DX: E10.52 Type 1 diabetes mellitus with diabetic peripheral angiopathy with gangrene (principal); N18.6 End stage renal disease; I12.0 Hypertensive chronic kidney disease with stage 5 chronic kidney disease or end stage renal disease; E10.21 Type 1 diabetes mellitus with diabetic nephropathy; E10.10 Type 1 diabetes mellitus with ketoacidosis without coma; E10.621 Type 1 diabetes mellitus with foot ulcer; E10.649 Type 1 diabetes mellitus with hypoglycemia without coma; E10.69 Type 1 diabetes mellitus with other specified complication; E87.5 Hyperkalemia; E10.22 Type 1 diabetes mellitus with diabetic chronic kidney disease; E10.319 Type 1 diabetes mellitus with unspecified diabetic retinopathy without macular edema; E10.65 Type 1 diabetes mellitus with hyperglycemia; L97.519 Non-pressure chronic ulcer of other part of right foot with unspecified severity; I25.10 Atherosclerotic heart disease of native coronary artery without angina pectoris; J44.9 Chronic obstructive pulmonary disease, unspecified; E78.5 Hyperlipidemia, unspecified; D63.1 Anemia in chronic kidney disease; F17.210 Nicotine dependence, cigarettes, uncomplicated; Z99.2 Dependence on renal dialysis; E03.9 Hypothyroidism, unspecified; E10.42 Type 1 diabetes mellitus with diabetic polyneuropathy; F32.9 Major depressive disorder, single episode, unspecified; T87.89 Other complications of amputation stump; Z79.4 Long term (current) use of insulin
CPT/HCPCS: 36217; 36246; 36589; 36591; 75605; 75710; 76705; 80048; 80053; 80069; 80074; 80076; 82010; 82947; 82948; 83036; 83735; 84100; 84132; 84439; 84443; 85025; 85027; 86850; 86900; 86901; 87070; 87106; 87205; 88307; 88311; 90935; 93005; 96374; C1769; C1887; C1893; J0360; J0690; J1170; J1644; J1815; J1817; J2250; J2270; J2405; J2710; J3010; J3370; J7040; J7050; Q4081